=== PATIENT | female | born 1945 | race Caucasian/White ===

== ENCOUNTER 2019-11-13 09:55 | Outpatient (REF) | payer MEDICARE, SELFPAY ==
[2019-11-13 11:08] LABS: MANUAL DIFF FLAG NO
[2019-11-13 11:11] LABS: Basophils Absolute Auto 0.1 X10*3/uL (0.0-0.2); Basophils Percent Auto 0.6 % (0-2); Eosinophils Absolute Auto 0.2 X10*3/uL (0.0-0.4); Eosinophils Percent Auto 1.8 % (0-4); Hemoglobin 12.9 g/dl (12.0-16.0); Imm Gran Pct Auto 1.2 % (0.0-0.4); Lymphocytes Absolute Auto 2.1 X10*3/uL (1.2-4.9); Lymphocytes Percent Auto 24.3 % (20-40); Mean Corpuscular HGB Conc 32.3 g/dl (31.0-35.0); Mean Corpuscular Hemoglobin 30.7 pg (27.0-33.0); Mean Corpuscular Volume 95.2 fL (80-98); Mean Platelet Volume 11.1 fL (9.4-12.3); Monocytes Absolute Auto 0.6 X10*3/uL (0.1-1.2); Monocytes Percent Auto 7.1 % (2-11); Neutrophils Absolute Auto 5.5 X10*3/uL (2.0-8.3); Platelet Count 187 X10*3/uL (160-400); Red Cell Distribution Width 13.5 % (11.0-16.0); White Blood Count 8.5 X10*3/uL (4.8-10.8)
[2019-11-13 11:43] LABS: Alanine Aminotransferase 33 U/L (0-31); Albumin Level 3.5 g/dL (3.5-5.0); Alkaline Phosphatase 70 U/L (39-117); Anion Gap 12 (12-20); Aspartate Amino Transferase 37 U/L (5-31); Bilirubin Total 0.5 mg/dL (0.0-1.0); Blood Urea Nitrogen 15 mg/dL (9-16); Calcium 8.4 mg/dL (8.4-10.2); Carbon Dioxide 26 mmol/L (22-29); Chloride 105 mmol/L (96-108); Cholesterol 171 mg/dL; Estimated Glomerular Filt Rate 52; Glucose Fasting 168 mg/dL (60-99); HDL Cholesterol 42 mg/dL; LDL Cholesterol Calculated 107 mg/dl; Potassium 3.9 mmol/l (3.3-5.1); Sodium 139 mmol/L (135-145); Total Protein 6.8 g/dL (6.5-8.0); Triglycerides 113 mg/dL
[2019-11-13 11:55] LABS: Estimated Average Glucose 148 mg/dL; Hemoglobin A1c % 6.8 %
[2019-11-13 12:08] LABS: Vitamin D 25-OH Total 38.2 ng/mL (>30)
== END 2019-11-13 09:56 | disposition home or self-care (01) ==
LOC: HO.HMGCLDS 09:55
PROVIDERS: PCP Internal Medicine; Visit Provider Internal Medicine
DX: E11.9 Type 2 diabetes mellitus without complications (principal); I10 Essential (primary) hypertension; E03.9 Hypothyroidism, unspecified; E66.01 Morbid (severe) obesity due to excess calories; L30.9 Dermatitis, unspecified
CPT/HCPCS: 36415; 80053; 80061; 82306; 83036; 84443; 85025

== ENCOUNTER 2020-08-28 10:09 | Outpatient (REF) | payer MEDICARE, SELFPAY | END 2020-08-28 10:10 | disposition home or self-care (01) | LOC: HO.LNP 10:09 | PROVIDERS: PCP Internal Medicine | DX: N39.0 Urinary tract infection, site not specified (principal); N28.89 Other specified disorders of kidney and ureter | CPT/HCPCS: 87086; 87088; 87186; 99212 ==

== ENCOUNTER 2020-09-03 13:43 | Outpatient (REF) | payer MEDICARE, SELFPAY ==
--- NOTE | ~2020-09-03 | US_ITS ---
EXAMINATION: US RETROPERITONEAL LIMITED (RENAL ONLY) CLINICAL INFORMATION: Calculus of kidney. COMPARISON: Ultrasound renals 10/25/2019 and 10/16/2018. TECHNIQUE: Real-time imaging of the kidneys. FINDINGS: RIGHT KIDNEY: 12.6 x 4.4 x 5.2 cm (SAG x AP x TRV). The kidney is normal in size, contour, and echogenicity. Renal cortical thickness is normal. No renal hydronephrosis. There is an anechoic cyst in the upper pole measuring 2.2 x 1.7 x 2.2 cm. There are echogenic stones. A staghorn-appearing calculus lower pole measuring 2.4 x 1.0 x 1.9 cm, upper pole echogenic stone measuring 0.8 x 0.4 x 0.8 cm and a midpole echogenic stone measuring 1.2 x 0.6 x 1.1 cm. There is no caliectasis or hydronephrosis seen. LEFT KIDNEY: 12.2 x 5.3 x 5.6 cm (SAG x AP x TRV). The kidney is normal in size, contour, and echogenicity. Renal cortical thickness is normal. No renal hydronephrosis. There is anechoic cyst in the midpole measuring 1.3 x 1.1 x 1.1 cm and an echogenic stone in lower pole measuring 0.9 x 0.4 x 0.8 cm. US/US renal BI IMPRESSION: There are bilateral anechoic renal cysts. There are bilateral nonobstructive echogenic renal calculi. No hydronephrosis seen.
== END 2020-09-03 13:44 | disposition home or self-care (01) ==
LOC: HO.HMGCX 13:43
PROVIDERS: PCP Internal Medicine
DX: N20.0 Calculus of kidney (principal)
CPT/HCPCS: 76775

== ENCOUNTER → 2020-10-20 13:04 | Outpatient (BNVA) | payer MEDICARE, SELFPAY | PROVIDERS: PCP Internal Medicine | CPT/HCPCS: Q3014 ==

== ENCOUNTER 2020-10-21 14:21 | Outpatient (REF) | payer MEDICARE, SELFPAY | END 2020-10-21 14:22 | disposition home or self-care (01) | LOC: HO.HMGCLDS 14:21 | PROVIDERS: PCP Internal Medicine | DX: N39.0 Urinary tract infection, site not specified (principal) | CPT/HCPCS: 87086; 87088; 87186 ==

== ENCOUNTER 2020-11-26 10:43 | Outpatient (REF) | payer MEDICARE, SELFPAY ==
[2020-11-26 13:48] LABS: MANUAL DIFF FLAG NO
[2020-11-26 13:51] LABS: Appearance Urine CLOUDY; Color Urine YELLOW; Glucose Urine UA NEG (NEG); Leukocyte Esterase Urine 3+ (NEG); Nitrite Urine NEG (NEG); Specific Gravity - Urine 1.015 (1.005-1.025); UACC Culture Trigger YES; Urine Blood 2+ (NEG); Urine Ketones NEG (NEG); Urine Protein 1+ MG/DL (NEG-TRACE)
[2020-11-26 13:57] LABS: Basophils Percent Auto 0.5 % (0-2); Eosinophils Absolute Auto 0.2 X10*3/uL (0.0-0.4); Eosinophils Percent Auto 1.9 % (0-4); Hematocrit 40.7 % (37-47); Hemoglobin 13.2 g/dl (12.0-16.0); Imm Gran Abs Auto 0.08 X10*3/uL (0.00-0.03); Lymphocytes Absolute Auto 2.1 X10*3/uL (1.2-4.9); Lymphocytes Percent Auto 27.1 % (20-40); Mean Corpuscular HGB Conc 32.4 g/dl (31.0-35.0); Mean Corpuscular Hemoglobin 30.2 pg (27.0-33.0); Mean Corpuscular Volume 93.1 fL (80-98); Monocytes Absolute Auto 0.6 X10*3/uL (0.1-1.2); Monocytes Percent Auto 7.8 % (2-11); Neutrophils Absolute Auto 4.8 X10*3/uL (2.0-8.3); Neutrophils Percent Auto 61.7 % (45-73); Platelet Count 190 X10*3/uL (160-400); Red Blood Count 4.37 X10*6/uL (4.20-5.50); Red Cell Distribution Width 13.3 % (11.0-16.0); White Blood Count 7.7 X10*3/uL (4.8-10.8)
[2020-11-26 14:03] LABS: Squamous Epithelial Cell Urine 1+ /LPF; UACC CULT YES; WBC Urine TNTC /HPF (0-4)
[2020-11-26 14:04] LABS: Renal Epithelial Cells Urine 1+ /LPF
[2020-11-26 14:22] LABS: Estimated Average Glucose 246 mg/dL; Hemoglobin A1c % 10.2 %
[2020-11-26 14:25] LABS: Alanine Aminotransferase 31 U/L (0-31); Albumin Level 3.5 g/dL (3.5-5.0); Alkaline Phosphatase 81 U/L (39-117); Anion Gap 15 (12-20); Aspartate Amino Transferase 39 U/L (5-31); Bilirubin Total 0.6 mg/dL (0.0-1.0); Blood Urea Nitrogen 13 mg/dL (9-16); Calcium 8.5 mg/dL (8.4-10.2); Carbon Dioxide 26 mmol/L (22-29); Chloride 101 mmol/L (96-108); Cholesterol 171 mg/dL; Estimated Glomerular Filt Rate 53; Glucose Fasting 231 mg/dL (60-99); HDL Cholesterol 42 mg/dL; LDL Cholesterol Calculated 104 mg/dl; Potassium 3.8 mmol/L (3.3-5.1); Sodium 138 mmol/L (135-145); Triglycerides 128 mg/dL
[2020-11-26 14:27] LABS: Creatinine Urine 135.03 mg/dL; Microalbum/Creatinine Ratio Ur 115.5 ug/mg cr
[2020-11-26 14:47] LABS: Thyroid Stimulating Hormone 4.37 uIU/mL (0.32-4.0); Vitamin D 25-OH Total 53.4 ng/mL (>30)
== END 2020-11-26 10:44 | disposition home or self-care (01) ==
LOC: HO.HMGCLDS 10:43
PROVIDERS: PCP Internal Medicine; Visit Provider Internal Medicine
DX: E11.9 Type 2 diabetes mellitus without complications (principal); I10 Essential (primary) hypertension; E03.9 Hypothyroidism, unspecified; E66.01 Morbid (severe) obesity due to excess calories; L30.9 Dermatitis, unspecified; N20.0 Calculus of kidney
CPT/HCPCS: 36415; 80053; 80061; 81001; 82043; 82306; 83036; 84443; 85025; 87086

== ENCOUNTER 2020-12-10 11:18 | Outpatient (REF) | payer MEDICARE, SELFPAY ==
--- NOTE | ~2020-12-10 | US_ITS ---
EXAMINATION: US RETROPERITONEAL LIMITED (RENAL ONLY) CLINICAL INFORMATION: Calculus of kidney. COMPARISON: Renal ultrasound 09/03/2020 and 10/25/2019. X-ray abdomen KUB 06/21/2018. CT abdomen and pelvis 06/05/2018. TECHNIQUE: Real-time imaging of the kidneys. FINDINGS: RIGHT KIDNEY: 12.2 x 4.4 x 5.0 cm (SAG x AP x TRV). The kidney is normal in size, contour, and echogenicity. Renal cortical echogenicity is normal. There may be renal cortical thinning. There are multiple right renal stones. Largest stone measures 2.2 x 1.1 x 2.8 cm and 1.7 x 0.6 x 1.7 cm in the lower pole. There is a 2.5 x 2.2 x 2 cm cyst in the upper pole. No renal mass or hydronephrosis. LEFT KIDNEY: 12.0 x 5.7 x 4.6 cm (SAG x AP x TRV). The kidney is normal in size, contour, and echogenicity. Renal cortical thickness and echogenicity is normal. There are 3 stones in the lower pole, largest measuring 1.2 x 0.6 x 1 cm. No renal mass or hydronephrosis. ADDITIONAL FINDINGS: There is a gallstone in the gallbladder. US/US renal BI IMPRESSION: Limited exam due to body habitus. Bilateral renal stones, right greater than left. Small right renal cyst.
== END 2020-12-10 11:19 | disposition home or self-care (01) ==
LOC: HO.HMGCX 11:18
PROVIDERS: PCP Internal Medicine; Visit Provider Urology
DX: N20.0 Calculus of kidney (principal)
CPT/HCPCS: 76775

== ENCOUNTER → 2021-01-19 12:58 | Outpatient (BNVA) | payer MEDICARE, SELFPAY | PROVIDERS: PCP Internal Medicine | DX: N20.0 Calculus of kidney (principal) | CPT/HCPCS: Q3014 ==

== ENCOUNTER 2021-02-16 10:41 | Outpatient (REF) | payer MEDICARE, SELFPAY ==
--- NOTE | ~2021-02-16 | CT_ITS ---
EXAMINATION: CT ABDOMEN AND PELVIS WITHOUT CONTRAST CLINICAL INFORMATION: Calculus of kidney. COMPARISON: CT abdomen and pelvis without contrast 06/05/2018. Ultrasound kidneys 08/26/2020 TECHNIQUE: Multidetector volumetric imaging was performed from the superior aspect of the liver through the pubic symphysis. Sagittal and coronal reformatted images were obtained on the technologist's workstation. This CT examination was performed using dose optimization techniques as appropriate, variously including the following: *Automated exposure control *Adjustment of mA and/or kV according to patient size (this includes techniques or standardized protocols for targeted exams where dose is matched to indication/reason for exam; i.e. extremities or head) *Use of iterative reconstruction technique DLP: 718 mGy-cm FINDINGS: LUNG BASES: The visualized lung bases are unremarkable. LIVER, GALLBLADDER, AND BILIARY TREE: There is slightly lobulated liver contour with normal size and density. No focal lesion or intrahepatic ductal dilatation seen. There are multiple radiopaque gallstones without wall thickening. The largest gallstone measures 2 cm. PANCREAS: Unremarkable. SPLEEN: Unremarkable. ADRENAL GLANDS: Unremarkable. KIDNEYS AND URETERS: The kidneys are normal in size, shape, and attenuation. There is a staghorn calculi right kidney without caliectasis or hydronephrosis. There is an exophytic upper pole right renal cyst measuring 2 cm. There are punctate radiopaque calculi measuring 2 mm in the upper and 4 mm calculi in the lower pole left kidney without caliectasis or hydronephrosis. BLADDER: Unremarkable. GASTROINTESTINAL TRACT: There is scattered sigmoid diverticulosis with mural thickening and mild pericolic fat stranding likely early changes of diverticulitis. Rest the colon and small bowel loops are normal. Appendix is normal. No free air or free fluid seen. ABDOMINAL WALL: There is a small umbilical hernia containing intraperitoneal fat. The neck is 2.2 cm wide. LYMPH NODES: Normal. VASCULAR: Unremarkable. PELVIC VISCERA: Unremarkable. OSSEOUS STRUCTURES: No free air or free fluid seen. Incidental finding of L2 hemangioma is noted. There are degenerative disc changes with vacuum disc phenomena L5-S1, L3-L4, L2-L1, L1-L2 disc levels. There is moderate ventral bridging osteophytes lower dorsal and upper lumbar spine. CT/CT abdomen pelvis wo con IMPRESSION: 1. Cholelithiasis without wall thickening. 2. Bilateral nephrolithiasis with a staghorn calculi right kidney. No caliectasis or hydronephrosis. There are at least 2 cysts in the upper pole right kidney. 3. Sigmoid diverticulosis with mild mural thickening and mild fat stranding likely early diverticulitis. There is no obstruction, free air or collection. 4. Small umbilical hernia containing fat.
== END 2021-02-16 10:42 | disposition home or self-care (01) ==
LOC: HO.CT 10:41
PROVIDERS: PCP Internal Medicine; Visit Provider Urology
DX: N20.0 Calculus of kidney (principal)
CPT/HCPCS: 74176

== ENCOUNTER 2021-03-09 10:20 | Outpatient (REF) | payer MEDICARE, SELFPAY ==
[2021-03-09 11:55] LABS: Estimated Average Glucose 148 mg/dL; Hemoglobin A1c % 6.8 %
[2021-03-09 12:16] LABS: Alanine Aminotransferase 38 U/L (0-31); Albumin Level 3.2 g/dL (3.5-5.0); Alkaline Phosphatase 61 U/L (39-117); Anion Gap 11 (12-20); Aspartate Amino Transferase 52 U/L (5-31); Bilirubin Total 0.6 mg/dL (0.0-1.0); Blood Urea Nitrogen 12 mg/dL (9-16); Calcium 8.8 mg/dL (8.4-10.2); Carbon Dioxide 32 mmol/L (22-29); Chloride 103 mmol/L (96-108); Cholesterol 177 mg/dL; Estimated Glomerular Filt Rate 56; Glucose Fasting 177 mg/dL (60-99); HDL Cholesterol 39 mg/dL; LDL Cholesterol Calculated 109 mg/dl; Potassium 3.5 mmol/L (3.3-5.1); Sodium 142 mmol/L (135-145); Total Protein 6.8 g/dL (6.5-8.0); Triglycerides 145 mg/dL
[2021-03-09 12:23] LABS: Creatinine Urine 90.44 mg/dL; Microalbum/Creatinine Ratio Ur 143.7 ug/mg cr
[2021-03-09 12:37] LABS: Thyroid Stimulating Hormone 2.14 uIU/mL (0.32-4.0)
== END 2021-03-09 10:21 | disposition home or self-care (01) ==
LOC: HO.HMGCLDS 10:20
PROVIDERS: Visit Provider Internal Medicine
DX: E11.9 Type 2 diabetes mellitus without complications (principal); E03.9 Hypothyroidism, unspecified
CPT/HCPCS: 36415; 80053; 80061; 82043; 83036; 84443

== ENCOUNTER 2021-04-01 10:55 | Outpatient (REF) | payer MEDICARE, SELFPAY ==
[2021-04-01 14:21] LABS: Appearance Urine CLOUDY; Color Urine YELLOW; Glucose Urine UA NEG (NEG); Leukocyte Esterase Urine 3+ (NEG); Nitrite Urine NEG (NEG); UACC Culture Trigger YES; Urine Blood 3+ (NEG); Urine Ketones NEG (NEG); Urine Protein 1+ MG/DL (NEG-TRACE)
[2021-04-01 14:41] LABS: Bacteria Urine 1+ /LPF; RBC Urine TNTC /HPF (0); Squamous Epithelial Cell Urine TRACE /LPF; UACC CULT YES; WBC Urine TNTC /HPF (0-4)
== END 2021-04-01 10:56 | disposition home or self-care (01) ==
LOC: HO.HMGCLDS 10:55
PROVIDERS: Visit Provider Internal Medicine
DX: N20.0 Calculus of kidney (principal)
CPT/HCPCS: 81001; 87086

== ENCOUNTER 2021-04-05 17:31 | Inpatient (IN) | payer MEDICARE, SELFPAY ==
--- NOTE | ~2021-04-05 | CT_ITS ---
EXAMINATION: CT ABDOMEN AND PELVIS WITHOUT CONTRAST CLINICAL INFORMATION: Epigastric abdominal pain with history of right renal calculus COMPARISON: CT abdomen pelvis 02/16/2021 TECHNIQUE: Multidetector volumetric imaging was performed from the superior aspect of the liver through the pubic symphysis. Sagittal and coronal reformatted images were obtained on the technologist's workstation. This CT examination was performed using dose optimization techniques as appropriate, variously including the following: *Automated exposure control *Adjustment of mA and/or kV according to patient size (this includes techniques or standardized protocols for targeted exams where dose is matched to indication/reason for exam; i.e. extremities or head) *Use of iterative reconstruction technique DLP: 884 mGy-cm FINDINGS: LUNG BASES: The visualized lung bases are unremarkable. There is a 1.3 x 0.8 cm right paracardiac lymph node present, unchanged. LIVER, GALLBLADDER, AND BILIARY TREE: The liver appears mildly enlarged with a nodular border and a hypertrophied enlarged left lobe suggesting cirrhotic disease. No focal hepatic lesion or biliary ductal dilatation is present. The gallbladder contains large calcified gallstones the largest measuring 2.5 cm but is otherwise unremarkable with no evidence of gallbladder wall thickening or pericholecystic inflammatory change. PANCREAS: Unremarkable. SPLEEN: There is mild splenomegaly with the spleen measuring 13 cm in greatest length ADRENAL GLANDS: Unremarkable. KIDNEYS AND URETERS: The right kidney demonstrates some cortical thinning compared to the left. Extensive calculi are present in the right kidney with staghorn type calculi filling the lower pole collecting system measuring about 4 cm in length. The stone measures about thousand Hounsfield units and is about 15 cm from the posterior axillary line.. No hydronephrosis is seen no ureteral calculi noted. Poorly characterized water density right renal cysts are present the largest measuring 2 cm arising from the upper pole.. No solid renal masses. On the left, only a few calculi are seen the largest measuring 6 mm in size. No hydronephrosis or masses are seen BLADDER: Unremarkable. GASTROINTESTINAL TRACT: Continued abnormality in the sigmoid with marked thickening and some pericolonic inflammatory change. Findings appear quite similar to those noted previously. Differential diagnosis would include diverticulitis as well as sigmoid carcinoma. Given the lack of change in appearance, sigmoidoscopy would be useful for further evaluation. ABDOMINAL WALL: No significant hernia is appreciated. There is a small periumbilical hernia seen containing only fat. LYMPH NODES: Normal. VASCULAR: Calcific atherosclerotic changes seen without aneurysm. PELVIC VISCERA: Status post hysterectomy. OSSEOUS STRUCTURES: Extensive degenerative changes present throughout the spine. Lytic lesion in L2 most likely a hemangioma. CT/CT abdomen pelvis wo con IMPRESSION: Abnormal sigmoid colon. Given the lack of change since 02/16/2021, carcinoma must be a consideration and therefore sigmoidoscopy, if this has not already been performed, is recommended. Abnormal liver with nodular border and hypertrophied left lobe suggesting cirrhosis with associated mild splenomegaly. Cholelithiasis without cholecystitis Extensive right renal calculi with some calculus disease on the left. Fleischner guidelines were followed.
--- NOTE | ~2021-04-05 | US_ITS ---
EXAMINATION: US ABDOMEN LIMITED CLINICAL INFORMATION: Right upper quadrant pain. COMPARISON: None TECHNIQUE: Real-time imaging of the right upper quadrant abdominal viscera. FINDINGS: Limited examination due to patient body habitus. PANCREAS: The visualized head and body of the pancreas appears unremarkable. Remainder of the pancreas is obscured by bowel gas. LIVER: Liver is enlarged. There is nodular contour. Diffuse increased echogenicity. No focal lesions are demonstrated in this limited examination. There is no intrahepatic biliary duct dilatation seen. GALLBLADDER: Shadowing gallstones present. Gallbladder wall measures 2 mm. No pericholecystic fluid. Technologist reports tenderness in the area of the gallbladder. COMMON BILE DUCT: Normal in caliber measuring 0.4 cm in diameter. RIGHT KIDNEY: Multiple shadowing calculi seen. The larger calculi are as follows. Calculus in the mid/lower pole measuring 3 x 0.5 x 1.2 cm; 1.2 cm calculus in the interpolar region. 1.5 cm anechoic avascular cyst. No hydronephrosis. The kidney measures 15.2 cm in maximum dimension. FREE FLUID: None. US/US abdomen limited IMPRESSION: 1. Gallstones present. No gallbladder wall thickening. Technologist reports tenderness in the area of the gallbladder. Sonographic features are nonspecific. Early/evolving acute cholecystitis cannot be excluded. Recommend close clinical correlation. Short-term follow-up ultrasound for reassessment as clinically warranted. 2. Cirrhotic liver, with nodular contour, increase echogenicity. No focal lesions demonstrated. 3. Right renal calculi, largest calculus having a staghorn appearance measuring 3 cm in maximum dimension. No hydronephrosis. 4. Partially visualized pancreas. 5. Limited examination due to patient body habitus.
--- NOTE | ~2021-04-05 | FL_ITS ---
EXAMINATION: XR FLUOROSCOPY WITH IMAGES CLINICAL INFORMATION: Right ureteral stone. Placement of double-J stent in right collecting system. COMPARISON: Ultrasound of abdomen 04/06/2021. CT scan abdomen pelvis 04/05/2021 TECHNIQUE: Fluoroscopy performed by Dr. Reis. Fluoroscopy time: 159.6 seconds DAP; 90.96 mGy Images: 2 FINDINGS: Spot views over the pelvis and right kidney. The spot view over the right kidney shows a guidewire looped over the collecting system with radiopaque stone in the renal pelvis. The spot view over the pelvis shows the double J stent in the right ureter extending into the bladder. FL/FL guidance in OR IMPRESSION: Status post placement of internal right ureteral stent. See intraoperative report for further detail.
[2021-04-05 17:57] VITALS: BP 179/62; PULSE 98; RESP 18; TEMP 37.5; O2SAT 95; BMI 43.4
[2021-04-05 18:23] LABS: Appearance Urine CLOUDY; Color Urine YELLOW; Glucose Urine UA NEG (NEG); Leukocyte Esterase Urine 3+ (NEG); Nitrite Urine NEG (NEG); UACC Culture Trigger YES; Urine Blood 2+ (NEG); Urine Ketones NEG (NEG); Urine Protein 1+ MG/DL (NEG-TRACE)
[2021-04-05 18:29] LABS: Squamous Epithelial Cell Urine 1+ /LPF; WBC Urine TNTC /HPF (0-4)
[2021-04-05 18:31] LABS: Amorphous Sediment Urine TRACE /LPF
--- NOTE | 2021-04-05 20:01 | ED_ITS ---
HPI - Abdominal Pain General Chief Complaint: Abdominal Pain Stated Complaint: abd pain/fever/nausea Source: patient Mode of arrival: ambulatory Limitations: no limitations History of Present Illness HPI narrative: 76-year-old female presents with epigastric and abdominal pain accompanied with fevers, chills, nausea, anorexia, dysuria, urinary frequency and fatigue. MD elicited complaint: abdominal pain Pertinent past history: past UTI Pain Consistency: constant Location: diffuse Severity: moderate Pain scale (0-10): 6 Quality: aching Radiation: none Exacerbating factors: movement Relieving factors: nothing Associated symptoms: nausea, fever, chills, dysuria and anorexia Related Data Home Medications Medication Instructions Recorded Confirmed furosemide 40 mg tablet 40 mg PO BID 08/28/20 04/05/21 levothyroxine 112 mcg tablet 112 mcg PO DAILY 08/28/20 04/05/21 lisinopril 10 mg tablet 10 mg PO DAILY 08/28/20 04/05/21 atorvastatin 10 mg tablet 1 tab PO DAILY 04/05/21 04/05/21 metformin 500 mg tablet 2 tab PO BID 04/05/21 04/05/21 Allergies Allergy/AdvReac Type Severity Reaction Status Date / Time chlorpheniramine Allergy Severe HALLUCINATI Verified 04/05/21 17:57 [From TUSSIONEX] ONS escitalopram [ESCITALOPRAM] Allergy Severe DISSOCIATIVE Verified 04/05/21 17:57 REACTION fluoxetine [FLUOXETINE] Allergy Severe DISSOCIATIVE Verified 04/05/21 17:57 REACTION hydrocodone [From TUSSIONEX] Allergy Severe HALLUCINATI Verified 04/05/21 17:57 ONS ibuprofen [IBUPROFEN] Allergy Severe THROAT Verified 04/05/21 17:57 SWELLING Sulfa (Sulfonamide Allergy Severe DYSPNEA Verified 04/05/21 17:57 Antibiotics) [SULFA (SULFONAMIDE ANTIBIOTICS)] clarithromycin [From BIAXIN] Allergy Intermediate ABD.PAIN Verified 04/05/21 17:57 erythromycin base Allergy Intermediate RASH Verified 04/05/21 17:57 [ERYTHROMYCIN BASE] Penicillins [PENICILLINS] Allergy Intermediate RASH Verified 04/05/21 17:57 tetracycline [TETRACYCLINE] Allergy Intermediate DIARRHEA Verified 04/05/21 17:57 ciprofloxacin [From CIPRO] Allergy Unknown ANAPHYLAXIS Verified 04/05/21 17:57 codeine [CODEINE] Allergy Unknown TINNITIS Verified 04/05/21 17:57 duloxetine [DULOXETINE] Allergy Unknown FACIAL Verified 04/05/21 17:57 NUMBNESS guaifenesin Allergy Unknown Unknown Verified 04/05/21 17:57 penicillin V Allergy Unknown Unknown Verified 04/05/21 17:57 pregabalin Allergy Unknown Unknown Verified 04/05/21 17:57 biaxin Allergy Unknown abdominal Uncoded 01/19/21 12:59 pain cipro Allergy Unknown angioedema Uncoded 01/19/21 12:59 Erythromycin Allergy Unknown Unknown Uncoded 01/19/21 12:59 erythromycin Allergy Unknown rash Uncoded 01/19/21 12:59 fluoxetine Allergy Unknown hallucinations, Uncoded 01/19/21 12:59 fogginess , throat tightening ibuprofen Allergy Unknown throat Uncoded 01/19/21 12:59 swelling PCN Allergy Unknown rash Uncoded 01/19/21 12:59 sulfa Allergy Unknown dyspnea Uncoded 01/19/21 12:59 tetracycline Allergy Unknown diarrhea Uncoded 01/19/21 12:59 tussionex Allergy Unknown hallucinati Uncoded 01/19/21 12:59 ons Review of Systems Review of Systems Constitutional: No Fever, No Chills ENT/Mouth: No sore throat Eyes: No Eye Pain, No Swelling, No Redness Cardiovascular: No Chest Pain, No SOB Respiratory: No Cough, No Sputum, No Wheezing Gastrointestinal: positive Nausea, no Vomiting, No Diarrhea, positive abdominal pain Genitourinary: positive Dysuria, positive urinary frequency, no Hematuria, positive Flank Pain, positive hesitancy Musculoskeletal: No joint pain, No Myalgias Skin: No Skin Lesions, No rash Neuro: No Weakness, No Numbness, No Headache Psych: No Anxiety/Panic, No Depression Heme/Lymph: No Bruising, No Lymphadenopathy Endocrine: No Polyuria, No Polydipsia PMFSH Past Medical History Attestation statement: The following information was validated with the patient. Source: old records reviewed Medical History Anxiety Diabetes mellitus, type II Ganglion cyst HTN (hypertension) Hypercholesterolemia Hypothyroidism Low back pain OA (osteoarthritis) Obstructive airway disease Perirectal abscess Plantar fasciitis Primary osteoarthritis of right knee Renal calculus, bilateral Renal calyceal dilation determined by ultrasound Renal stones Retained ureteral stent Sciatica Staghorn calculus UTI (urinary tract infection) Surgical History History of surgery Social History Social History Alcohol intake: never Patient Tobacco Use Status: Former Tobacco user Use of substances other than those prescribed or required for medical reasons: No Advance Directives: No Advance Directives Information Provided: No Physical Exam ED Vital Signs: Vital Signs - 24 hr 04/05/21 17:57 04/05/21 20:03 04/05/21 22:02 Temperature 99.5 F 99.5 F 99.5 F Pulse Rate 98 94 82 Respiratory Rate 18 18 16 Blood Pressure 179/62 H 158/69 H 150/63 H Pulse Oximetry 95 97 97 BMI result Body Mass Index 43.4 Appearance: Alert. Oriented X3. Mild distress. Eyes: Pupils equal, round and reactive to light. Sclera nonicteric. ENT: Pharynx normal. Moist mucous membranes. Neck: Normal inspection. Neck supple. CVS: Normal heart rate and rhythm. Pulses normal. Respiratory: No respiratory distress. Breath sounds normal. Abdomen: Soft and diffusely tender with increased pain to the epigastric and right upper quadrant. Skin: Skin warm and dry. Normal skin color. Normal skin turgor. Extremities: No lower extremity edema. Gait well-balanced well coordinated. Neuro: No motor deficit. No sensory deficit. Cranial nerves 2-12 intact. Course Course Course Narrative: 76-year-old female presents with a week of urinary symptoms, and 2 days abdominal pain headache chills and nausea. Has had poor p.o. intake over the past 24 hours. Was evaluated at [facility] however did not receive her results from her urinalysis. Initial triage vital signs indicates a heart rate of 98, temperature of 99.5 degrees oral, otherwise patient appears nontoxic. Will treat with ceftriaxone, and fluids. Urinalysis indicates positive for UTI, based on patient's physical exam with positive right upper quadrant and epigastric tenderness and bilateral CVA tenderness will order CT scan of abdomen and pelvis to rule out acute abdomen, pyelo, obstruction. Lactic acid is 2.1, I do not feel that this patient is septic at this time. White count is 17. CT scan of abdomen pelvis indicates bilateral renal stones, staghorn to the right without obstruction, multiple smaller stones in the left without obstruction, and a question of diverticulitis versus colon mass in the sigmoid colon. Order for Flagyl at this time to cover for diverticulitis. 2230 discussion with hospitalist, plan of care is to admit for pyelo, UTI with GI consult for suspicion of sigmoid mass versus diverticulitis. Consultations Consultation #1: michele Time: 22:00 Consultation #2: Jack Time: 22:30 MDM - Abdominal Pain Differential Diagnosis Differential diagnosis: Likely abdominal pain, acute appendicitis, calculus of kidney, diverticulitis, pancreatitis and small bowel obstruction Medical Records Attestation: I reviewed the patient's medical records. Lab Data Attestation: I reviewed the patient's lab results. Result diagrams: 04/05/21 21:15 04/05/21 21:15 Labs: Lab Results 04/05/21 04/05/21 04/05/21 Range/Units 18:16 20:23 20:23 WBC (4.8-10.8) X10*3/uL RBC (4.20-5.50) X10*6/uL Hgb (12.0-16.0) g/dl Hct (37.0-47.0) % MCV (80.0-98.0) fL MCH (27.0-33.0) pg MCHC (31.0-35.0) g/dl RDW (11.0-16.0) % Plt Count (160-400) X10*3/uL MPV (9.4-12.3) fL Immature Gran % (Auto) (0.0-0.4) % Neut % (Auto) (45-73) % Lymph % (Auto) (20-40) % Coles % (Auto) (2-11) % Eos % (Auto) (0-4) % Baso % (Auto) (0-2) % Lymph # (Auto) (1.2-4.9) X10*3/uL Coles # (Auto) (0.1-1.2) X10*3/uL Eos # (Auto) (0.0-0.4) X10*3/uL Baso # (Auto) (0.0-0.2) X10*3/uL Abs Immat Gran (auto) (0.00-0.03) X10*3/uL Absolute Neuts (auto) (2.0-8.3) x10*3/uL Absolute Nucleated RBC (0.0-0.012) X10*3/uL Nucleated RBC % (auto) (0.0-0.2) /100WBC Sodium (135-145) mmol/L Potassium (3.3-5.1) mmol/L Chloride (96-108) mmol/L Carbon Dioxide (22-29) mmol/L Anion Gap (12-20) BUN (9-16) mg/dL Creatinine (0.5-1.4) mg/dL Estim Creat Clear Calc Estimated GFR Random Glucose (60-115) mg/dL Lactic Acid 2.1 H* (0.5-2.0) mmol/L Lactic Acid F/U @ 2Hr (0.5-2.0) mmol/L Calcium (8.4-10.2) mg/dL Total Bilirubin (0.0-1.0) mg/dL Direct Bilirubin (0.0-0.5) mg/dL AST (5-31) U/L ALT (0-31) U/L Alkaline Phosphatase (39-117) U/L Troponin I High Sens 5.9 (<3.5-17.0) ng/L Total Protein (6.5-8.0) g/dL Albumin (3.5-5.0) g/dL Lipase (8-78) U/L Urine Color YELLOW Urine Appearance CLOUDY Urine pH 6.0 (5.0-8.0) Ur Specific Randle 1.010 (1.005-1.025) Urine Protein 1+ H (NEG-TRACE) MG/DL Urine Glucose (UA) NEG (NEG) MG/DL Urine Ketones NEG (NEG) MG/DL Urine Blood 2+ H (NEG) Urine Nitrite NEG (NEG) Ur Leukocyte Esterase 3+ H (NEG) Urine RBC 10-14 H (0) /HPF Urine WBC TNTC H (0-4) /HPF Ur Squamous Epith Cells 1+ /LPF Amorphous Sediment TRACE /LPF Urine Bacteria NONE /LPF COVID-19 (JOSE MARIA) (Negative) COVID-19 Clin Com 04/05/21 04/05/21 04/05/21 Range/Units 21:15 21:15 22:48 WBC 17.2 H (4.8-10.8) X10*3/uL RBC 4.25 (4.20-5.50) X10*6/uL Hgb 12.7 (12.0-16.0) g/dl Hct 39.4 (37.0-47.0) % MCV 92.7 (80.0-98.0) fL MCH 29.9 (27.0-33.0) pg MCHC 32.2 (31.0-35.0) g/dl RDW 14.2 (11.0-16.0) % Plt Count 215 (160-400) X10*3/uL MPV 10.3 (9.4-12.3) fL Immature Gran % (Auto) 0.7 H (0.0-0.4) % Neut % (Auto) 79.1 H (45-73) % Lymph % (Auto) 14.7 L (20-40) % Coles % (Auto) 5.0 (2-11) % Eos % (Auto) 0.3 (0-4) % Baso % (Auto) 0.2 (0-2) % Lymph # (Auto) 2.5 (1.2-4.9) X10*3/uL Coles # (Auto) 0.9 (0.1-1.2) X10*3/uL Eos # (Auto) 0.1 (0.0-0.4) X10*3/uL Baso # (Auto) 0.0 (0.0-0.2) X10*3/uL Abs Immat Gran (auto) 0.12 H (0.00-0.03) X10*3/uL Absolute Neuts (auto) 13.6 H (2.0-8.3) x10*3/uL Absolute Nucleated RBC 0.000 (0.0-0.012) X10*3/uL Nucleated RBC % (auto) 0.0 (0.0-0.2) /100WBC Sodium 138 (135-145) mmol/L Potassium 4.0 (3.3-5.1) mmol/L Chloride 100 (96-108) mmol/L Carbon Dioxide 26 (22-29) mmol/L Anion Gap 16 (12-20) BUN 14 (9-16) mg/dL Creatinine 1.01 (0.5-1.4) mg/dL Estim Creat Clear Calc 55.2 Estimated GFR 54 Random Glucose 154 H (60-115) mg/dL Lactic Acid (0.5-2.0) mmol/L Lactic Acid F/U @ 2Hr 1.9 (0.5-2.0) mmol/L Calcium 9.0 (8.4-10.2) mg/dL Total Bilirubin 0.7 (0.0-1.0) mg/dL Direct Bilirubin 0.2 (0.0-0.5) mg/dL AST 71 H (5-31) U/L ALT 41 H (0-31) U/L Alkaline Phosphatase 53 (39-117) U/L Troponin I High Sens (<3.5-17.0) ng/L Total Protein 7.5 (6.5-8.0) g/dL Albumin 3.5 (3.5-5.0) g/dL Lipase 10 (8-78) U/L Urine Color Urine Appearance Urine pH (5.0-8.0) Ur Specific Randle (1.005-1.025) Urine Protein (NEG-TRACE) MG/DL Urine Glucose (UA) (NEG) MG/DL Urine Ketones (NEG) MG/DL Urine Blood (NEG) Urine Nitrite (NEG) Ur Leukocyte Esterase (NEG) Urine RBC (0) /HPF Urine WBC (0-4) /HPF Ur Squamous Epith Cells /LPF Amorphous Sediment /LPF Urine Bacteria /LPF COVID-19 (JOSE MARIA) (Negative) COVID-19 Clin Com 04/05/21 Range/Units 22:51 WBC (4.8-10.8) X10*3/uL RBC (4.20-5.50) X10*6/uL Hgb (12.0-16.0) g/dl Hct (37.0-47.0) % MCV (80.0-98.0) fL MCH (27.0-33.0) pg MCHC (31.0-35.0) g/dl RDW (11.0-16.0) % Plt Count (160-400) X10*3/uL MPV (9.4-12.3) fL Immature Gran % (Auto) (0.0-0.4) % Neut % (Auto) (45-73) % Lymph % (Auto) (20-40) % Coles % (Auto) (2-11) % Eos % (Auto) (0-4) % Baso % (Auto) (0-2) % Lymph # (Auto) (1.2-4.9) X10*3/uL Coles # (Auto) (0.1-1.2) X10*3/uL Eos # (Auto) (0.0-0.4) X10*3/uL Baso # (Auto) (0.0-0.2) X10*3/uL Abs Immat Gran (auto) (0.00-0.03) X10*3/uL Absolute Neuts (auto) (2.0-8.3) x10*3/uL Absolute Nucleated RBC (0.0-0.012) X10*3/uL Nucleated RBC % (auto) (0.0-0.2) /100WBC Sodium (135-145) mmol/L Potassium (3.3-5.1) mmol/L Chloride (96-108) mmol/L Carbon Dioxide (22-29) mmol/L Anion Gap (12-20) BUN (9-16) mg/dL Creatinine (0.5-1.4) mg/dL Estim Creat Clear Calc Estimated GFR Random Glucose (60-115) mg/dL Lactic Acid (0.5-2.0) mmol/L Lactic Acid F/U @ 2Hr (0.5-2.0) mmol/L Calcium (8.4-10.2) mg/dL Total Bilirubin (0.0-1.0) mg/dL Direct Bilirubin (0.0-0.5) mg/dL AST (5-31) U/L ALT (0-31) U/L Alkaline Phosphatase (39-117) U/L Troponin I High Sens (<3.5-17.0) ng/L Total Protein (6.5-8.0) g/dL Albumin (3.5-5.0) g/dL Lipase (8-78) U/L Urine Color Urine Appearance Urine pH (5.0-8.0) Ur Specific Randle (1.005-1.025) Urine Protein (NEG-TRACE) MG/DL Urine Glucose (UA) (NEG) MG/DL Urine Ketones (NEG) MG/DL Urine Blood (NEG) Urine Nitrite (NEG) Ur Leukocyte Esterase (NEG) Urine RBC (0) /HPF Urine WBC (0-4) /HPF Ur Squamous Epith Cells /LPF Amorphous Sediment /LPF Urine Bacteria /LPF COVID-19 (JOSE MARIA) Negative (Negative) COVID-19 Clin Com See Note Imaging Data CT scan - abdomen: Attestation: I personally reviewed and interpreted this imaging study as follows: Radiologist's impression: FINDINGS: LUNG BASES: The visualized lung bases are unremarkable. There is a 1.3 x 0.8 cm right paracardiac lymph node present, unchanged. LIVER, GALLBLADDER, AND BILIARY TREE: The liver appears mildly enlarged with a nodular border and a hypertrophied enlarged left lobe suggesting cirrhotic disease.? No focal hepatic lesion or biliary ductal dilatation is present. The gallbladder contains large calcified gallstones the largest measuring 2.5 cm but is otherwise unremarkable with no evidence of ? gallbladder wall thickening or pericholecystic inflammatory change. PANCREAS: Unremarkable.? SPLEEN: There is mild splenomegaly with the spleen measuring 13 cm in greatest length? ADRENAL GLANDS: Unremarkable.? KIDNEYS AND URETERS: The right kidney demonstrates some cortical thinning compared to the left. Extensive calculi are present in the right kidney with staghorn type calculi filling the lower pole collecting system measuring about 4 cm in length. The stone measures about thousand Hounsfield units and is about 15 cm from the posterior axillary line.. No hydronephrosis is seen no ureteral calculi noted. Poorly characterized water density right renal cysts are present the largest measuring 2 cm arising from the upper pole.. No solid renal masses. On the left, only a few calculi are seen the largest measuring 6 mm in size. No hydronephrosis or masses are seen? BLADDER: Unremarkable.? GASTROINTESTINAL TRACT: Continued abnormality in the sigmoid with marked thickening and some pericolonic inflammatory change. Findings appear quite similar to those noted previously. Differential diagnosis would include diverticulitis as well as sigmoid carcinoma. Given the lack of change in appearance, sigmoidoscopy would be useful for further evaluation. ABDOMINAL WALL: No significant hernia is appreciated. There is a small periumbilical hernia seen containing only fat. LYMPH NODES: Normal. VASCULAR: Calcific atherosclerotic changes seen without aneurysm. PELVIC VISCERA: Status post hysterectomy.? OSSEOUS STRUCTURES: Extensive degenerative changes present throughout the spine. Lytic lesion in L2 most likely a hemangioma.? CT/CT abdomen pelvis wo con IMPRESSION: ? Abnormal sigmoid colon. Given the lack of change since 02/16/2021, carcinoma must be a consideration and therefore sigmoidoscopy, if this has not already been performed, is recommended. ? Abnormal liver with nodular border and hypertrophied left lobe suggesting cirrhosis with associated mild splenomegaly. ? Cholelithiasis without cholecystitis ? Extensive right renal calculi with some calculus disease on the left. ? Fleischner guidelines were followed. ECG Data Attestation: I personally reviewed and interpreted this ECG as follows: ECG interpretation date: 04/05/21 ECG interpretation time: 20:13 Prior ECG tracings: available for review Interpretation: Vent. rate 91 BPM GA interval 192 ms QRS duration 126 ms QT/QTc 414/509 ms P-R-T axes 59 62 29 Normal sinus rhythm Right bundle branch block Abnormal ECG When compared with ECG of 26-MAY-2016 18:49, No significant change was found Critical Care Time Critical Care Time Critical Care Time: Yes Total Critical Care Time: 45 Attestation: I have personally provided critical care time exclusive of time spent on separately billable procedures. Time includes review of laboratory data, radiology results, discussion with consultants, and monitoring for potential decompensation. Interventions were performed as documented. Discharge Plan Discharge Clinical Impression: UTI (urinary tract infection), Renal calculus, bilateral, Diverticulitis Patient Disposition: Admitted As Inpatient
--- NOTE | 2021-04-05 20:02 | ECG_ITS ---
Test Reason : abdominal pain Blood Pressure : / mmHG Vent. Rate : 091 BPM Atrial Rate : 091 BPM P-R Int : 192 ms QRS Dur : 126 ms QT Int : 414 ms P-R-T Axes : 059 062 029 degrees QTc Int : 509 ms Normal sinus rhythm Right bundle branch block Abnormal ECG When compared with ECG of 26-MAY-2016 18:49, No significant change was found Referred By: Stephanie Walsh Electronically Signed By:Abel Hannon
[2021-04-05 20:03] VITALS: BP 158/69; PULSE 94; RESP 18; TEMP 37.5; O2SAT 97
[2021-04-05] MEDS: cefTRIAXone sodium 1 GM in 0.9 % Sodium Chloride 50 ML IV (20:40)
[2021-04-05] MEDS: 0.9 % Sodium Chloride 1,000 ML 999 ML IVCONT ×2 (20:40→22:01)
[2021-04-05 20:53] LABS: Troponin-I High Sensitivity 5.9 ng/L (<3.5-17.0)
[2021-04-05 21:03] LABS: Lactic Acid 2.1 mmol/L (0.5-2.0)
[2021-04-05 21:23] LABS: Basophils Percent Auto 0.2 % (0-2); Eosinophils Absolute Auto 0.1 X10*3/uL (0.0-0.4); Eosinophils Percent Auto 0.3 % (0-4); Hematocrit 39.4 % (37.0-47.0); Hemoglobin 12.7 g/dl (12.0-16.0); Imm Gran Abs Auto 0.12 X10*3/uL (0.00-0.03); Imm Gran Pct Auto 0.7 % (0.0-0.4); Lymphocytes Absolute Auto 2.5 X10*3/uL (1.2-4.9); Lymphocytes Percent Auto 14.7 % (20-40); MANUAL DIFF FLAG NO; Mean Corpuscular HGB Conc 32.2 g/dl (31.0-35.0); Mean Corpuscular Hemoglobin 29.9 pg (27.0-33.0); Mean Corpuscular Volume 92.7 fL (80.0-98.0); Mean Platelet Volume 10.3 fL (9.4-12.3); Monocytes Absolute Auto 0.9 X10*3/uL (0.1-1.2); Neutrophils Absolute Auto 13.6 x10*3/uL (2.0-8.3); Neutrophils Percent Auto 79.1 % (45-73); Platelet Count 215 X10*3/uL (160-400); Red Blood Count 4.25 X10*6/uL (4.20-5.50); Red Cell Distribution Width 14.2 % (11.0-16.0); White Blood Count 17.2 X10*3/uL (4.8-10.8)
[2021-04-05 21:43] LABS: Alanine Aminotransferase 41 U/L (0-31); Albumin Level 3.5 g/dL (3.5-5.0); Alkaline Phosphatase 53 U/L (39-117); Anion Gap 16 (12-20); Aspartate Amino Transferase 71 U/L (5-31); Bilirubin Direct 0.2 mg/dL (0.0-0.5); Bilirubin Total 0.7 mg/dL (0.0-1.0); Blood Urea Nitrogen 14 mg/dL (9-16); Carbon Dioxide 26 mmol/L (22-29); Chloride 100 mmol/L (96-108); Creatinine Clr Calc Pharmacy 55.2; Estimated Glomerular Filt Rate 54; Glucose Random 154 mg/dL (60-115); Lipase 10 U/L (8-78); Sodium 138 mmol/L (135-145); Total Protein 7.5 g/dL (6.5-8.0)
[2021-04-05 22:02] VITALS: BP 150/63; PULSE 82; RESP 16; TEMP 37.5; O2SAT 97
[2021-04-05 22:26] LABS: Reflex Lactate? Lactic Acid Added
[2021-04-05] MEDS: metroNIDAZOLE/NS 500 MG/100 ML PIGGYBACK 100 MG IV (22:44)
[2021-04-05 23:03] LABS: ~Lactic Acid-LAB USE ONLY 1.9 mmol/L (0.5-2.0)
[2021-04-05 23:18] LABS: COVID-19 Test Negative (Negative)
[2021-04-06] VITALS (7 sets, daily range): BP systolic 119–152; BP diastolic 53–68; PULSE 76–89; RESP 16–22; TEMP 36.8–37.1; O2SAT 95–97
[2021-04-06] MEDS: oxyCODONE HCl Immed Release 5 MG TABLET PO ×3 (00:07→12:26)
[2021-04-06] MEDS: Lactated Ringers 1,000 ML 80 ML IVCONT ×3 (00:08→23:00)
[2021-04-06] MEDS: Enoxaparin Sodium 40 MG/0.4 ML SYRINGE SUBCUT (00:08)
--- NOTE | 2021-04-06 00:16 | PC.NURSE ---
pt medicated per mar, pt reposition for comfort. N/v at this time. pt medicated per abd discomfort. Will continue to monitor.
[2021-04-06] MEDS: metroNIDAZOLE/NS 500 MG/100 ML PIGGYBACK 100 MG IV (06:16)
--- NOTE | 2021-04-06 06:43 | P.HPHOSP_ITS ---
History of Present Illness Date of Service: 04/05/21 Chief Complaint: abd pain 76-year-old female with past medical history significant for hypertension, hyperlipidemia, hypothyroidism, type 2 diabetes, anxiety, and history of staghorn calculi presents to the hospital with complaints of abdominal pain. Patient describes the abdominal pain as 10/10, epigastric, radiating to the back, intermittent, lasting few hours and resolving spontaneously.dshe is also complaining of right flank pain radiating to the groin, Patient reports that she has been having burning on urination as well as frequency. She went to her PCP on Tuesday for these symptoms, did a UA but has not received the results back. She continues to have dysuria and frequency. She has had chills, febrile with a temp of a 100 degrees at home, has nausea, 1 episode of vomiting, no diarrhea constipation, and no lower extremity edema. No headache or change in vision, no weakness numbness or tingling. On arrival to the ED patient hemodynamically stable with no significant abnormal vitals except slightly elevated blood pressure Labs are significant for WBC count of 17.2, lactic acid of 2.1 which resolved after by IV fluids, AST of 71, ALT of 41, alk-phos of 53, UA positive, for leukocyte Estrace and WBC, lipase of 10. Abdomen pelvic CT shows abnormal sigmoid colon, diverticulitis vs carcinoma must be consideration and therefore sigmoidoscopy is recommended. although has not changes since 02/16/2021. Abnormal liver with nodular border and hypertrophied left lobe suggesting cirrhosis with associated mild splenomegaly. Cholelithiasis without cholecystitis, extensive right renal calculi with some calculus disease on the left, urology is consulted and will see patient in a.m. Review of Systems Review of Systems: Yes all other systems are reviewed and are negative [facility] Medical History Anxiety Diabetes mellitus, type II Ganglion cyst HTN (hypertension) Hypercholesterolemia Hypothyroidism Low back pain OA (osteoarthritis) Obstructive airway disease Perirectal abscess Plantar fasciitis Primary osteoarthritis of right knee Renal calculus, bilateral Renal calyceal dilation determined by ultrasound Renal stones Retained ureteral stent Sciatica Staghorn calculus UTI (urinary tract infection) Surgical History History of surgery Social History Alcohol intake: never Patient Tobacco Use Status: Former Tobacco user Use of substances other than those prescribed or required for medical reasons: No Advance Directives: No Advance Directives Information Provided: No Meds Allergies Allergy/AdvReac Type Severity Reaction Status Date / Time chlorpheniramine Allergy Severe HALLUCINATI Verified 04/05/21 17:57 [From TUSSIONEX] ONS escitalopram [ESCITALOPRAM] Allergy Severe DISSOCIATIVE Verified 04/05/21 17:57 REACTION fluoxetine [FLUOXETINE] Allergy Severe DISSOCIATIVE Verified 04/05/21 17:57 REACTION hydrocodone [From TUSSIONEX] Allergy Severe HALLUCINATI Verified 04/05/21 17:57 ONS ibuprofen [IBUPROFEN] Allergy Severe THROAT Verified 04/05/21 17:57 SWELLING Sulfa (Sulfonamide Allergy Severe DYSPNEA Verified 04/05/21 17:57 Antibiotics) [SULFA (SULFONAMIDE ANTIBIOTICS)] clarithromycin [From BIAXIN] Allergy Intermediate ABD.PAIN Verified 04/05/21 17:57 erythromycin base Allergy Intermediate RASH Verified 04/05/21 17:57 [ERYTHROMYCIN BASE] Penicillins [PENICILLINS] Allergy Intermediate RASH Verified 04/05/21 17:57 tetracycline [TETRACYCLINE] Allergy Intermediate DIARRHEA Verified 04/05/21 17:57 ciprofloxacin [From CIPRO] Allergy Unknown ANAPHYLAXIS Verified 04/05/21 17:57 codeine [CODEINE] Allergy Unknown TINNITIS Verified 04/05/21 17:57 duloxetine [DULOXETINE] Allergy Unknown FACIAL Verified 04/05/21 17:57 NUMBNESS guaifenesin Allergy Unknown Unknown Verified 04/05/21 17:57 penicillin V Allergy Unknown Unknown Verified 04/05/21 17:57 pregabalin Allergy Unknown Unknown Verified 04/05/21 17:57 biaxin Allergy Unknown abdominal Uncoded 01/19/21 12:59 pain cipro Allergy Unknown angioedema Uncoded 01/19/21 12:59 Erythromycin Allergy Unknown Unknown Uncoded 01/19/21 12:59 erythromycin Allergy Unknown rash Uncoded 01/19/21 12:59 fluoxetine Allergy Unknown hallucinations, Uncoded 01/19/21 12:59 fogginess , throat tightening ibuprofen Allergy Unknown throat Uncoded 01/19/21 12:59 swelling PCN Allergy Unknown rash Uncoded 01/19/21 12:59 sulfa Allergy Unknown dyspnea Uncoded 01/19/21 12:59 tetracycline Allergy Unknown diarrhea Uncoded 01/19/21 12:59 tussionex Allergy Unknown hallucinati Uncoded 01/19/21 12:59 ons Active Medications: Current Medications Acetaminophen (Acetaminophen 325 Mg Tablet) 650 mg PO Q6H PRN PRN Reason: Pain, Mild (Pain Scale 1-3) Atorvastatin Calcium (Atorvastatin Calcium 10 Mg Tablet) 10 mg PO DAILY [facility] Dextrose (Dextrose 50 % 25 Gm/50 Ml Syringe) 25 gm IVPUSH Q15M PRN; Protocol PRN Reason: per Hypoglycemia Standing Ord. Enoxaparin Sodium (Enoxaparin Sodium 40 Mg/0.4 Ml Syringe) 40 mg SUBCUT Q24H [facility] Last Admin: 04/06/21 00:08 Dose: 40 mg Documented by: Furosemide (Furosemide 40 Mg Tablet) 40 mg PO BID@0800,1700 [facility]; Protocol Glucose (Glucose Gel 15 Gm Gel..Gram.) 15 gm PO Q15M PRN; Protocol PRN Reason: per Hypoglycemia Standing Ord. Ceftriaxone Sodium 1 gm/ (Sodium Chloride) 50 mls @ 100 mls/hr IV Q24H [facility] Metronidazole (Flagyl) 500 mg in 100 mls @ 100 mls/hr IV Q8H [facility] Last Admin: 04/06/21 06:16 Dose: 100 mls/hr Documented by: Lactated Ringer's (Lr) 1,000 mls @ 80 mls/hr IVCONT .[id number] [facility] Last Admin: 04/06/21 00:08 Dose: 80 mls/hr Documented by: Insulin Human Lispro (Insulin Lispro 100 Unit/Ml 3 Ml Vial) 0 unit SUBCUT QIDACHS [facility]; Protocol Levothyroxine Sodium (Levothyroxine Sodium 112 Mcg Tablet) 112 mcg PO DAILY@0630 [facility] Lisinopril (Lisinopril 10 Mg Tablet) 10 mg PO DAILY [facility]; Protocol Ondansetron HCl (Ondansetron Hcl 4 Mg/2 Ml Vial) 4 mg IVPUSH Q8H PRN PRN Reason: Nausea and Vomiting Oxycodone HCl (Oxycodone Hcl Immed Release 5 Mg Tablet) 5 mg PO Q6H PRN PRN Reason: Pain, Severe (Pain Scale 7-10) Last Admin: 04/06/21 06:17 Dose: 5 mg Documented by: Pharmacy Consult (Consult Rx Perform Med Rec) 1 each MISCELLANE ONCE STA Stop: 04/05/21 22:18 Sodium Chloride (0.9 % Sodium Chloride Flush 3 Ml Syringe) [facility] Last Admin: 04/06/21 00:51 Dose: Not Given Documented by: Home Medications Medication Instructions Recorded Confirmed Last Taken Type furosemide 40 mg tablet 40 mg PO BID 08/28/20 04/05/21 Unknown History levothyroxine 112 mcg tablet 112 mcg PO DAILY 08/28/20 04/05/21 Unknown History lisinopril 10 mg tablet 10 mg PO DAILY 08/28/20 04/05/21 Unknown History atorvastatin 10 mg tablet 1 tab PO DAILY 04/05/21 04/05/21 Unknown History metformin 500 mg tablet,extended 1 tab PO QPM 04/06/21 04/06/21 Unknown History release 24 hr pyridoxine (vitamin B6) 100 mg 1 tab PO DAILY 04/06/21 04/06/21 Unknown History tablet Physical Exam Vital Signs and Narrative: Vital Signs: Last Vital Signs Temp 99.5 F 04/05/21 22:02 Pulse 84 04/06/21 05:52 Resp 22 H 04/06/21 05:52 BP 152/57 H 04/06/21 05:52 Pulse Ox 97 04/06/21 05:52 BMI result Body Mass Index 43.4 Const: General: cooperative and no acute distress Orientation /consciousness: patient oriented x3 Eyes: General: appearance normal, both eyes and all related structures Pupils: Equal, round and reactive pupils present Resp: Effort & Inspection: normal respiratory effort Auscultation: clear to auscultation bilaterally Cardio: Rate: regular rate Rhythm: regular rhythm GI: Other: right upper quadrant tenderness as well as tenderness in the epigastric region, has guarding Palpation (GI): Soft to palpation Auscultation: normal bowel sounds : Other: right CVA tenderness Skin: General skin exam: no rashes or lesions noted Neuro: General: patient oriented x3 Cranial nerves: Yes Equal, round and reactive pupils present Cognition (Neuro): normal cognition Extrem: General: Yes normal to inspection and Yes no pedal edema Results Labs CBC and Chem 7: 04/05/21 21:15 04/05/21 21:15 Labs: Laboratory Results - last 24 hr 04/05/21 04/05/21 04/05/21 18:16 20:23 21:15 MCV 92.7 MCH 29.9 MCHC 32.2 RDW 14.2 Plt Count 215 MPV 10.3 Immature Gran % (Auto) 0.7 H Neut % (Auto) 79.1 H Lymph % (Auto) 14.7 L [place] % (Auto) 5.0 Eos % (Auto) 0.3 Baso % (Auto) 0.2 Lymph # (Auto) 2.5 [place] # (Auto) 0.9 Eos # (Auto) 0.1 Baso # (Auto) 0.0 Abs Immat Gran (auto) 0.12 H Absolute Neuts (auto) 13.6 H Absolute Nucleated RBC 0.000 Nucleated RBC % (auto) 0.0 Anion Gap Estim Creat Clear Calc Estimated GFR Random Glucose Lactic Acid 2.1 H* Lactic Acid F/U @ 2Hr Calcium Total Bilirubin Direct Bilirubin AST ALT Alkaline Phosphatase Total Protein Albumin Lipase Urine Color YELLOW Urine Appearance CLOUDY Urine pH 6.0 Ur Specific [place] 1.010 Urine Protein 1+ H Urine Glucose (UA) NEG Urine Ketones NEG Urine Blood 2+ H Urine Nitrite NEG Ur Leukocyte Esterase 3+ H Urine RBC 10-14 H Urine WBC TNTC H Ur Squamous Epith Cells 1+ Amorphous Sediment TRACE Urine Bacteria NONE COVID-19 (JOSE MARIA) COVID-19 Clin Com 04/05/21 04/05/21 04/05/21 21:15 22:48 22:51 MCV MCH MCHC RDW Plt Count MPV Immature Gran % (Auto) Neut % (Auto) Lymph % (Auto) [place] % (Auto) Eos % (Auto) Baso % (Auto) Lymph # (Auto) [place] # (Auto) Eos # (Auto) Baso # (Auto) Abs Immat Gran (auto) Absolute Neuts (auto) Absolute Nucleated RBC Nucleated RBC % (auto) Anion Gap 16 Estim Creat Clear Calc 55.2 Estimated GFR 54 Random Glucose 154 H Lactic Acid Lactic Acid F/U @ 2Hr 1.9 Calcium 9.0 Total Bilirubin 0.7 Direct Bilirubin 0.2 AST 71 H ALT 41 H Alkaline Phosphatase 53 Total Protein 7.5 Albumin 3.5 Lipase 10 Urine Color Urine Appearance Urine pH Ur Specific [place] Urine Protein Urine Glucose (UA) Urine Ketones Urine Blood Urine Nitrite Ur Leukocyte Esterase Urine RBC Urine WBC Ur Squamous Epith Cells Amorphous Sediment Urine Bacteria COVID-19 (JOSE MARIA) Negative COVID-19 Clin Com See Note Imaging Radiologist's Impressions: Impressions Abdomen/Pelvis CT 04/05/21 21:06 IMPRESSION: Abnormal sigmoid colon. Given the lack of change since 02/16/2021, carcinoma must be a consideration and therefore sigmoidoscopy, if this has not already been performed, is recommended. Abnormal liver with nodular border and hypertrophied left lobe suggesting cirrhosis with associated mild splenomegaly. Cholelithiasis without cholecystitis Extensive right renal calculi with some calculus disease on the left. Fleischner guidelines were followed. Assessment and Plan (1) Diverticulitis: Status: Acute (2) Renal stones: Status: Acute (3) UTI (urinary tract infection): Status: Acute (4) Abdominal pain: Status: Acute (5) Lactic acidosis: Status: Acute Plan this 76-year-old female with extensive past medical history presents to the hospital with complaints of abdominal pain found to have UTI as well as staghorn calculus # pyelonephritis/UTI - has CVA tenderness, for cm staghorn calculi in the right kidney - will treat with IV antibiotics, IV fluids - urology consulted - follow cultures # abdominal pain - has significant tenderness in the right upper quadrant - abdominal CT showed cholelithiasis with no cholecystitis but evidence of carcinoma versus diverticulitis - patient is on antibiotics for possible diverticulitis - will consult GI # lactic acidosis - likely secondary to above - resolved with IV fluids Med review still pending resume meds once mneds are reviewed DVT ppx: lovenox - will hold for possible Urology intervention Quality Stroke Does the patient have a stroke diagnosis?: No VTE Prior VTE?: No VTE Risk Level:: Medical - moderate - high VTE Device Contraindication: Treatment Not Indicated VTE Drug Contraindication: N/A - Med Ordered
[2021-04-06 07:02] LABS: Glucose, Whole Blood 159 mg/dL (60-115)
--- NOTE | 2021-04-06 07:04 | PHA.MEDREC ---
Pharmacy Consult ? Medication Reconciliation Pharmacy has reviewed the medication reconciliation completed by Lawanda. Patient is on metformin XR 500 mg not the metformin 500 mg. Patient also is taking vitmain b6 as well as acetaminophen. Maria Del Rosario Salguero, CharitoD
[2021-04-06 07:05] LABS: MANUAL DIFF FLAG NO
[2021-04-06 07:14] LABS: Basophils Percent Auto 0.4 % (0-2); Eosinophils Absolute Auto 0.1 X10*3/uL (0.0-0.4); Eosinophils Percent Auto 1.2 % (0-4); Hematocrit 38.9 % (37.0-47.0); Imm Gran Abs Auto 0.09 X10*3/uL (0.00-0.03); Imm Gran Pct Auto 0.8 % (0.0-0.4); Lymphocytes Absolute Auto 2.4 X10*3/uL (1.2-4.9); Lymphocytes Percent Auto 22.6 % (20-40); Mean Corpuscular HGB Conc 30.8 g/dl (31.0-35.0); Mean Corpuscular Hemoglobin 29.7 pg (27.0-33.0); Mean Corpuscular Volume 96.3 fL (80.0-98.0); Mean Platelet Volume 10.2 fL (9.4-12.3); Monocytes Absolute Auto 0.7 X10*3/uL (0.1-1.2); Monocytes Percent Auto 6.7 % (2-11); Neutrophils Absolute Auto 7.3 x10*3/uL (2.0-8.3); Neutrophils Percent Auto 68.3 % (45-73); Platelet Count 210 X10*3/uL (160-400); Red Blood Count 4.04 X10*6/uL (4.20-5.50); Red Cell Distribution Width 14.3 % (11.0-16.0); White Blood Count 10.7 X10*3/uL (4.8-10.8)
[2021-04-06 07:22] LABS: Anion Gap 11 (12-20); Blood Urea Nitrogen 12 mg/dL (9-16); Calcium 8.7 mg/dL (8.4-10.2); Carbon Dioxide 27 mmol/L (22-29); Chloride 103 mmol/L (96-108); Creatinine Clr Calc Pharmacy 54.6; Estimated Glomerular Filt Rate 53; Glucose Random 169 mg/dL (60-115); Potassium 4.1 mmol/L (3.3-5.1); Sodium 137 mmol/L (135-145)
--- NOTE | 2021-04-06 07:30 | PM.GICN ---
History of Present Illness Data of Consult Service Date: 04/06/21 Requesting physician: Sia Santiago Primary Care Provider: Preston Wang MD, DO HPI Reason for consult: Diverticulitis versus carcinoma on CT scan 76 YF came to [facility] ED on 04/05/21 with abdominal pain: 76 YF with hypertension, hyperlipidemia, hypothyroidism, type 2 diabetes, anxiety, and history of staghorn calculi? presents to the hospital with complaints of abdominal pain.? Patient describes the abdominal pain as 10/10, epigastric, radiating to the? back,? intermittent, lasting few hours and resolving spontaneously. She is also complaining of right flank pain radiating to the groin, ? Patient reports that she has been having burning on urination as well as frequency.? She went to her PCP on Tuesday for these symptoms, did a UA but has not received the results back.? She continues to have dysuria and frequency.? She has had chills, febrile with a temp of a 100 degrees at home, has nausea, 1 episode of vomiting, no diarrhea constipation, and no lower extremity edema.? No headache or change in vision, no weakness numbness or tingling.? Pain started at 04:00 on 04/05/2021. Patient notes right upper quadrant and lower abdominal pain sometimes radiating to the back associated with sweating. Patient reports constant low-grade pain with superimposed intermittent stabbing pain. Patient notes nausea and dry heaves. She denies noticing any change in her bowel movements, black stools or rectal bleeding. Pain improves when she takes oxycodone. Patient admits to intentional weight loss of 30 lb over the past several months (baseline wt of 260 decreased to 233 lbs) On arrival to the ED patient hemodynamically stable with no significant abnormal vitals except slightly elevated blood pressure Labs are significant for? WBC count of 17.2, lactic acid of 2.1 which resolved after by IV fluids, AST of 71, ALT of 41, alk-phos of 53, UA positive, for leukocyte Estrace and WBC, lipase of 10. Patient denies major cardiac or pulmonary problems, loud snoring or sleep apnea Denies smoking or EtOH abuse. Denies being on chronic anticoagulation and takes Tylenol p.r.n. for pain Patient lives with her boyfriend and has no children (reports having 5 miscarriages) Patient denies known family history of colon polyps, colon cancer or other GI malignancies. PAST COLONOSCOPY: 2002 patient had a colonoscopy by Dr. Luther which showed sigmoid diverticulosis and internal hemorrhoids. No polyps were detected IMAGING STUDIES: 04/05/[address] SCAN SHOWED: Abnormal sigmoid colon. Given the lack of change since 02/16/2021, carcinoma must be a consideration and therefore sigmoidoscopy, if this has not already been performed, is recommended. ? Abnormal liver with nodular border and hypertrophied left lobe suggesting cirrhosis with associated mild splenomegaly. ? Cholelithiasis without cholecystitis ? Extensive right renal calculi with some calculus disease on the left. Review of Systems Constitutional: Constitutional: Reports as per HPI and Reports no additional constitutional complaints Cardiovascular: Cardiovascular: Reports as per HPI and Reports no additional cardiovascular complaints Respiratory: Respiratory: Reports as per HPI and Reports no additional respiratory complaints Gastrointestinal: Gastrointestinal: Reports as per HPI, Reports no additional gastrointestinal complaints and Reports abdominal pain Genitourinary: Genitourinary: Reports as per HPI Musculoskeletal: Musculoskeletal: Reports no additional musculoskeletal complaints and Reports as per HPI Neurologic: Reports system reviewed and no additional complaints, except as documented and Reports as per HPI [facility] Past Medical History Medical History Anxiety Diabetes mellitus, type II Ganglion cyst HTN (hypertension) Hypercholesterolemia Hypothyroidism Low back pain OA (osteoarthritis) Obstructive airway disease Perirectal abscess Plantar fasciitis Primary osteoarthritis of right knee Renal calculus, bilateral Renal calyceal dilation determined by ultrasound Renal stones Retained ureteral stent Sciatica Staghorn calculus UTI (urinary tract infection) Surgical History Surgical History History of surgery Social History Social History Household Members: Significant Other Housing: House Do you presently have visiting nurse or other home services: No Alcohol intake: never Patient Tobacco Use Status: Former Tobacco user Advance Directives Date on File: 04/06/21 service: No Current occupational status: disabled Meds Allergies Allergy/AdvReac Type Severity Reaction Status Date / Time chlorpheniramine Allergy Severe HALLUCINATI Verified 04/05/21 17:57 [From TUSSIONEX] ONS escitalopram [ESCITALOPRAM] Allergy Severe DISSOCIATIVE Verified 04/05/21 17:57 REACTION fluoxetine [FLUOXETINE] Allergy Severe DISSOCIATIVE Verified 04/05/21 17:57 REACTION hydrocodone [From TUSSIONEX] Allergy Severe HALLUCINATI Verified 04/05/21 17:57 ONS ibuprofen [IBUPROFEN] Allergy Severe THROAT Verified 04/05/21 17:57 SWELLING Sulfa (Sulfonamide Allergy Severe DYSPNEA Verified 04/05/21 17:57 Antibiotics) [SULFA (SULFONAMIDE ANTIBIOTICS)] clarithromycin [From BIAXIN] Allergy Intermediate ABD.PAIN Verified 04/05/21 17:57 erythromycin base Allergy Intermediate RASH Verified 04/05/21 17:57 [ERYTHROMYCIN BASE] Penicillins [PENICILLINS] Allergy Intermediate RASH Verified 04/05/21 17:57 tetracycline [TETRACYCLINE] Allergy Intermediate DIARRHEA Verified 04/05/21 17:57 ciprofloxacin [From CIPRO] Allergy Unknown ANAPHYLAXIS Verified 04/05/21 17:57 codeine [CODEINE] Allergy Unknown TINNITIS Verified 04/05/21 17:57 duloxetine [DULOXETINE] Allergy Unknown FACIAL Verified 04/05/21 17:57 NUMBNESS guaifenesin Allergy Unknown Unknown Verified 04/05/21 17:57 levofloxacin [From Levaquin] Allergy Unknown Unknown Verified 04/10/21 16:10 penicillin V Allergy Unknown Unknown Verified 04/05/21 17:57 pregabalin Allergy Unknown Unknown Verified 04/05/21 17:57 biaxin Allergy Unknown abdominal Uncoded 01/19/21 12:59 pain cipro Allergy Unknown angioedema Uncoded 01/19/21 12:59 Erythromycin Allergy Unknown Unknown Uncoded 01/19/21 12:59 erythromycin Allergy Unknown rash Uncoded 01/19/21 12:59 fluoxetine Allergy Unknown hallucinations, Uncoded 01/19/21 12:59 fogginess , throat tightening ibuprofen Allergy Unknown throat Uncoded 01/19/21 12:59 swelling PCN Allergy Unknown rash Uncoded 01/19/21 12:59 sulfa Allergy Unknown dyspnea Uncoded 01/19/21 12:59 tetracycline Allergy Unknown diarrhea Uncoded 01/19/21 12:59 tussionex Allergy Unknown hallucinati Uncoded 01/19/21 12:59 ons Active Medications: Current Medications Acetaminophen (Acetaminophen 325 Mg Tablet) 650 mg PO Q6H PRN PRN Reason: Pain, Mild (Pain Scale 1-3) Atorvastatin Calcium (Atorvastatin Calcium 10 Mg Tablet) 10 mg PO DAILY NOHELIA Dextrose (Dextrose 50 % 25 Gm/50 Ml Syringe) 25 gm IVPUSH Q15M PRN; Protocol PRN Reason: per Hypoglycemia Standing Ord. Furosemide (Furosemide 40 Mg Tablet) 40 mg PO BID@0800,1700 [facility]; Protocol Glucose (Glucose Gel 15 Gm Gel..Gram.) 15 gm PO Q15M PRN; Protocol PRN Reason: per Hypoglycemia Standing Ord. Ceftriaxone Sodium 1 gm/ (Sodium Chloride) 50 mls @ 100 mls/hr IV Q24H [facility] Metronidazole (Flagyl) 500 mg in 100 mls @ 100 mls/hr IV Q8H [facility] Last Admin: 04/06/21 06:16 Dose: 100 mls/hr Documented by: Lactated Ringer's (Lr) 1,000 mls @ 80 mls/hr IVCONT .[id number] [facility] Last Admin: 04/06/21 00:08 Dose: 80 mls/hr Documented by: Insulin Human Lispro (Insulin Lispro 100 Unit/Ml 3 Ml Vial) 0 unit SUBCUT QIDACHS [facility]; Protocol Levothyroxine Sodium (Levothyroxine Sodium 112 Mcg Tablet) 112 mcg PO DAILY@0630 [facility] Ondansetron HCl (Ondansetron Hcl 4 Mg/2 Ml Vial) 4 mg IVPUSH Q8H PRN PRN Reason: Nausea and Vomiting Oxycodone HCl (Oxycodone Hcl Immed Release 5 Mg Tablet) 5 mg PO Q6H PRN PRN Reason: Pain, Severe (Pain Scale 7-10) Last Admin: 04/06/21 06:17 Dose: 5 mg Documented by: Sodium Chloride (0.9 % Sodium Chloride Flush 3 Ml Syringe) [facility] Last Admin: 04/06/21 00:51 Dose: Not Given Documented by: Home Medications Medication Instructions Recorded Confirmed Last Taken Type furosemide 40 mg tablet 40 mg PO BID 08/28/20 04/06/21 04/05/21 History levothyroxine 112 mcg tablet 112 mcg PO DAILY 08/28/20 04/06/21 04/05/21 History lisinopril 10 mg tablet 10 mg PO DAILY 08/28/20 04/06/21 04/05/21 History atorvastatin 10 mg tablet 1 tab PO DAILY 04/05/21 04/06/21 04/05/21 History acetaminophen 500 mg tablet 1,000 mg PO Q6H PRN 04/06/21 04/06/21 04/05/21 History metformin 500 mg tablet,extended 1 tab PO QPM 04/06/21 04/06/21 04/05/21 History release 24 hr pyridoxine (vitamin B6) 100 mg 2 tab PO DAILY 04/06/21 04/06/21 04/05/21 History tablet Physical Exam Vital Signs: Vital Signs: Last Vital Signs Temp 99.5 F 04/05/21 22:02 Pulse 84 04/06/21 05:52 Resp 22 H 04/06/21 05:52 BP 152/57 H 04/06/21 05:52 Pulse Ox 97 04/06/21 05:52 BMI result Body Mass Index 43.4 Const: General: healthy appearing and no acute distress Nutritional Appearance: obese Orientation/consciousness: patient oriented x3 Limitations: no limitations HENMT: Head: Yes normal to inspection Ears: hearing grossly normal bilaterally Mouth: Normal oral and palatal mucosa present Eyes: Sclerae: sclerae normal Pupils: Equal, round and reactive pupils present Neck: Neck: Yes normal visual inspection Chest: Chest palpation & inspection: normal inspection of the chest Resp: Effort & Inspection: normal respiratory effort Auscultation: clear to auscultation bilaterally Cardio: Palpation: normal PMI Rate: regular rate Rhythm: regular rhythm Heart sounds: S1 normal heart sound present, S2 normal heart sound present and no murmurs GI: Inspection: Yes obesity Palpation (GI): Soft to palpation, Tenderness to palpation present (GI) (Moderate right flank tenderness without rebound, Minimal LLQ tenderness) and No hepatosplenomegaly present Auscultation: normal bowel sounds Rectal Exam - Female: deferred Skin: General skin exam: no rashes or lesions noted Neuro: General: patient oriented x3, gait normal and moves all extremities Cranial nerves: Yes Equal, round and reactive pupils present Psych: Appearance: grossly normal Mental Status: mental status grossly normal Results Labs CBC & Chem 7: 04/10/21 10:29 04/10/21 11:31 Labs: Short CBC 04/05/21 04/06/21 Range/Units 21:15 06:59 WBC 17.2 H 10.7 (4.8-10.8) X10*3/uL Hgb 12.7 12.0 (12.0-16.0) g/dl Hct 39.4 38.9 (37.0-47.0) % Plt Count 215 210 (160-400) X10*3/uL BMP 04/05/21 04/06/21 21:15 06:59 Sodium 138 137 Potassium 4.0 4.1 Chloride 100 103 Carbon Dioxide 26 27 BUN 14 12 Creatinine 1.01 1.02 Calcium 9.0 8.7 Liver Function 04/05/21 Range/Units 21:15 Total Bilirubin 0.7 (0.0-1.0) mg/dL Direct Bilirubin 0.2 (0.0-0.5) mg/dL AST 71 H (5-31) U/L ALT 41 H (0-31) U/L Alkaline Phosphatase 53 (39-117) U/L Albumin 3.5 (3.5-5.0) g/dL Urine 04/05/21 Range/Units 18:16 Urine Color YELLOW Urine Appearance CLOUDY Urine pH 6.0 (5.0-8.0) Ur Specific [place] 1.010 (1.005-1.025) Urine Protein 1+ H (NEG-TRACE) MG/DL Urine Glucose (UA) NEG (NEG) MG/DL Assessment and Plan (1) Abdominal pain: Status: Acute (2) Diverticulitis: Status: Acute (3) Cholelithiasis: Status: Acute Plan 76 YF with hypertension, hyperlipidemia, hypothyroidism, type 2 diabetes, anxiety, and history of staghorn calculi? admitted with abdominal pain.? Labs are significant for? WBC count of 17.2, lactic acid of 2.1 which resolved after by IV fluids, AST of 71, ALT of 41, alk-phos of 53, UA positive, for leukocyte Estrace and WBC, lipase of 10. Abd CT scan showed abnormal sigmoid colon (unchanged since 02/16/2021, Abnormal liver with nodular border and hypertrophied left lobe suggesting cirrhosis with associated mild splenomegaly. Cholelithiasis without cholecystitis and extensive right renal calculi with some calculus disease on the left. RECOMMENDATIONS: 1. Agree with IV antibiotics, antiemetics and pain medications 2. Pt will be scheduled for a colonoscopy as an outpatient in 2-3 weeks after resolution of diverticulitis Procedures Date of Service Date of Service: 04/06/21
--- NOTE | 2021-04-06 07:40 | PC.NURSE ---
pt is a/o x 3, bedside ultrasound done. pt aware of plan of are for transfer to overflow unit. rn to rn report given earlier by anupama.
[2021-04-06 07:42] LABS: Alanine Aminotransferase 36 U/L (0-31); Albumin Level 3.3 g/dL (3.5-5.0); Alkaline Phosphatase 47 U/L (39-117); Aspartate Amino Transferase 48 U/L (5-31); Bilirubin Direct 0.4 mg/dL (0.0-0.5); Bilirubin Total 0.9 mg/dL (0.0-1.0); Total Protein 6.9 g/dL (6.5-8.0)
[2021-04-06] MEDS: amLODIPine Besylate 5 MG TABLET PO (08:19)
[2021-04-06] MEDS: Insulin Lispro 100 UNIT/ML 3 ML VIAL SUBCUT ×3 (08:19→21:20)
[2021-04-06] MEDS: Levothyroxine Sodium 112 MCG TABLET PO (08:19)
[2021-04-06] MEDS: Furosemide 40 MG TABLET PO ×2 (08:19→18:14)
[2021-04-06] MEDS: 0.9 % Sodium Chloride Flush 3 ML SYRINGE IVFLUSH (08:21)
[2021-04-06] MEDS: Atorvastatin Calcium 10 MG TABLET PO (08:21)
--- NOTE | 2021-04-06 10:24 | P.CDIC_ITS ---
CDI Concurrent Query Documentation Clarification: PHYSICIAN'S DOCUMENTATION REQUEST Date of Query: 04/06/21 1025 Patient Name: Xi Garrison Admit Date: 04/05/21 Dear Doctor, A review of the medical record indicates additional documentation may be needed. Please review below and update the documentation accordingly. Clinical Indicators: Height: [] 5 ft 1.77 inches Weight: [] 107.1 kg BMI: [] BMI 43.5 Other Clinical Notes Supporting Significance of the BMI: Risk Factors/Clinical Indicators/Treatments If possible, please provide an associated diagnosis related to the abnormal BMI, such as: For a BMI >= 40: * Overweight * Obesity * Due to excess calories * Drug induced * Due to other cause * Severe or Morbid Obesity * With alveolar hypoventilation * Without alveolar hypoventilation Or: * BMI is not significant * Other (please specify) * Unable to determine Use of terms such as suspected, likely, concern for, or probable (associated with a specific diagnosis that is being evaluated, monitored, or treated as if it exists) are acceptable and can be coded in the inpatient setting, when documented at the time of discharge. Thank you, Yanet Beltran RN Extension: [phone] Please use your independent medical judgment in providing your response. THIS QUERY IS PART OF THE PERMANENT MEDICAL RECORD Provider Response: Other Other Diagnosis: morbid obesity
--- NOTE | 2021-04-06 10:25 | MHC.CM.PN ---
CM MET WITH PT AND S/O WHO WAS AT BEDSIDE PT REPORTS SHE LIVES ALONE BUT HER S/O IS THERE NEARLY 30/08. SHE REPORTS SHE IS MOSTLY INDEPENDENT WITH ALL CARE BUT HE IS THERE IF SHE NEEDS HELP PT REPORTS SHE HAS A ROLLATOR SHE USES INSIDE THE HOUSE, A CANE SHE USES TO WALK TO THE CAR, AND A WHEELCHAIR SHE USES IF SHE IS GOING ANYWHERE THAT WILL REQUIRE WALKING A DISTANCE. PT REPORTS HER S/O, AZUL, IS HER HCP LIBERTAD LEMA IS HER PCP PT REPORTS SHE IS VACCINATED BUT HAS NOT YET RECEIVED THE BOOSTER IMM DELIVERED, COPY SENT TO [facility] CURRENT DC PLAN IS HOME, S/O TO TRANSPORT
--- NOTE | 2021-04-06 10:27 | PM.UROCN ---
History of Present Illness Consult details Consult date: 04/06/21 Narrative: Xi is a pleasant 76-year-old female. Known stone former Presented with question of right flank pain and urgency and frequency Found to have infected urine On imaging has large staghorn calculus on right side Follow the imaging findings which are being evaluated The right kidney demonstrates some cortical thinning compared to the left. Extensive calculi are present in the right kidney with staghorn type calculi filling the lower pole collecting system measuring about 4 cm in length. The stone measures about thousand Hounsfield units and is about 15 cm from the posterior axillary line.. No hydronephrosis is seen no ureteral calculi noted At this point would recommend antibiotic therapy. Definitive stone management should be held until urine sterilize to which will take proximally 2-4 weeks. Prior culture from October 2020 Proteus mirabilis. 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 Resistant to Levaquin. Sensitive to Bactrim. Would recommend initial IV therapy with transition to oral Bactrim Review of Systems Constitutional: Constitutional: Reports as per HPI and Reports no additional constitutional complaints Cardiovascular: Cardiovascular: Reports as per HPI and Reports no additional cardiovascular complaints Respiratory: Respiratory: Reports as per HPI and Reports no additional respiratory complaints Gastrointestinal: Gastrointestinal: Reports as per HPI and Reports no additional gastrointestinal complaints Genitourinary: Genitourinary: Reports as per HPI Musculoskeletal: Musculoskeletal: Reports no additional musculoskeletal complaints and Reports as per HPI Neurologic: Reports system reviewed and no additional complaints, except as documented and Reports as per HPI PMFSH Past Medical History Medical History Anxiety Diabetes mellitus, type II Ganglion cyst HTN (hypertension) Hypercholesterolemia Hypothyroidism Low back pain OA (osteoarthritis) Obstructive airway disease Perirectal abscess Plantar fasciitis Primary osteoarthritis of right knee Renal calculus, bilateral Renal calyceal dilation determined by ultrasound Renal stones Retained ureteral stent Sciatica Staghorn calculus UTI (urinary tract infection) Surgical History Surgical History History of surgery Social History Social History Alcohol intake: never Patient Tobacco Use Status: Former Tobacco user Use of substances other than those prescribed or required for medical reasons: No Advance Directives: No Advance Directives Information Provided: No service: No Current occupational status: disabled Meds Allergies Allergy/AdvReac Type Severity Reaction Status Date / Time chlorpheniramine Allergy Severe HALLUCINATI Verified 04/05/21 17:57 [From TUSSIONEX] ONS escitalopram [ESCITALOPRAM] Allergy Severe DISSOCIATIVE Verified 04/05/21 17:57 REACTION fluoxetine [FLUOXETINE] Allergy Severe DISSOCIATIVE Verified 04/05/21 17:57 REACTION hydrocodone [From TUSSIONEX] Allergy Severe HALLUCINATI Verified 04/05/21 17:57 ONS ibuprofen [IBUPROFEN] Allergy Severe THROAT Verified 04/05/21 17:57 SWELLING Sulfa (Sulfonamide Allergy Severe DYSPNEA Verified 04/05/21 17:57 Antibiotics) [SULFA (SULFONAMIDE ANTIBIOTICS)] clarithromycin [From BIAXIN] Allergy Intermediate ABD.PAIN Verified 04/05/21 17:57 erythromycin base Allergy Intermediate RASH Verified 04/05/21 17:57 [ERYTHROMYCIN BASE] Penicillins [PENICILLINS] Allergy Intermediate RASH Verified 04/05/21 17:57 tetracycline [TETRACYCLINE] Allergy Intermediate DIARRHEA Verified 04/05/21 17:57 ciprofloxacin [From CIPRO] Allergy Unknown ANAPHYLAXIS Verified 04/05/21 17:57 codeine [CODEINE] Allergy Unknown TINNITIS Verified 04/05/21 17:57 duloxetine [DULOXETINE] Allergy Unknown FACIAL Verified 04/05/21 17:57 NUMBNESS guaifenesin Allergy Unknown Unknown Verified 04/05/21 17:57 penicillin V Allergy Unknown Unknown Verified 04/05/21 17:57 pregabalin Allergy Unknown Unknown Verified 04/05/21 17:57 biaxin Allergy Unknown abdominal Uncoded 01/19/21 12:59 pain cipro Allergy Unknown angioedema Uncoded 01/19/21 12:59 Erythromycin Allergy Unknown Unknown Uncoded 01/19/21 12:59 erythromycin Allergy Unknown rash Uncoded 01/19/21 12:59 fluoxetine Allergy Unknown hallucinations, Uncoded 01/19/21 12:59 fogginess , throat tightening ibuprofen Allergy Unknown throat Uncoded 01/19/21 12:59 swelling PCN Allergy Unknown rash Uncoded 01/19/21 12:59 sulfa Allergy Unknown dyspnea Uncoded 01/19/21 12:59 tetracycline Allergy Unknown diarrhea Uncoded 01/19/21 12:59 tussionex Allergy Unknown hallucinati Uncoded 01/19/21 12:59 ons Active Medications: Current Medications Acetaminophen (Acetaminophen 325 Mg Tablet) 650 mg PO Q6H PRN PRN Reason: Pain, Mild (Pain Scale 1-3) Amlodipine Besylate (Amlodipine Besylate 5 Mg Tablet) 5 mg PO DAILY [facility]; Protocol Last Admin: 04/06/21 08:19 Dose: 5 mg Documented by: Atorvastatin Calcium (Atorvastatin Calcium 10 Mg Tablet) 10 mg PO DAILY [facility] Last Admin: 04/06/21 08:21 Dose: 10 mg Documented by: Dextrose (Dextrose 50 % 25 Gm/50 Ml Syringe) 25 gm IVPUSH Q15M PRN; Protocol PRN Reason: per Hypoglycemia Standing Ord. Furosemide (Furosemide 40 Mg Tablet) 40 mg PO BID@0800,1700 [facility]; Protocol Last Admin: 04/06/21 08:19 Dose: 40 mg Documented by: Glucose (Glucose Gel 15 Gm Gel..Gram.) 15 gm PO Q15M PRN; Protocol PRN Reason: per Hypoglycemia Standing Ord. Ceftriaxone Sodium 1 gm/ (Sodium Chloride) 50 mls @ 100 mls/hr IV Q24H [facility] Metronidazole (Flagyl) 500 mg in 100 mls @ 100 mls/hr IV Q8H [facility] Last Infusion: 04/06/21 07:30 Dose: Infused Documented by: Lactated Ringer's (Lr) 1,000 mls @ 80 mls/hr IVCONT .[id number] [facility] Last Admin: 04/06/21 00:08 Dose: 80 mls/hr Documented by: Insulin Human Lispro (Insulin Lispro 100 Unit/Ml 3 Ml Vial) 0 unit SUBCUT QIDACHS [facility]; Protocol Last Admin: 04/06/21 08:19 Dose: 2 unit Documented by: Levothyroxine Sodium (Levothyroxine Sodium 112 Mcg Tablet) 112 mcg PO DAILY@0630 [facility] Last Admin: 04/06/21 08:19 Dose: 112 mcg Documented by: Ondansetron HCl (Ondansetron Hcl 4 Mg/2 Ml Vial) 4 mg IVPUSH Q8H PRN PRN Reason: Nausea and Vomiting Oxycodone HCl (Oxycodone Hcl Immed Release 5 Mg Tablet) 5 mg PO Q6H PRN PRN Reason: Pain, Severe (Pain Scale 7-10) Last Admin: 04/06/21 06:17 Dose: 5 mg Documented by: Sodium Chloride (0.9 % Sodium Chloride Flush 3 Ml Syringe) 3 ml IVFLUSH QSHIFT [facility] Last Admin: 04/06/21 08:21 Dose: 3 ml Documented by: Home Medications Medication Instructions Recorded Confirmed Last Taken Type furosemide 40 mg tablet 40 mg PO BID 08/28/20 04/06/21 04/05/21 History levothyroxine 112 mcg tablet 112 mcg PO DAILY 08/28/20 04/06/21 04/05/21 History lisinopril 10 mg tablet 10 mg PO DAILY 08/28/20 04/06/21 04/05/21 History atorvastatin 10 mg tablet 1 tab PO DAILY 04/05/21 04/06/21 04/05/21 History acetaminophen 500 mg tablet 1,000 mg PO Q6H PRN 04/06/21 04/06/21 04/05/21 History metformin 500 mg tablet,extended 1 tab PO QPM 04/06/21 04/06/21 04/05/21 History release 24 hr pyridoxine (vitamin B6) 100 mg 2 tab PO DAILY 04/06/21 04/06/21 04/05/21 History tablet Physical Exam Vital Signs: Vital Signs: Last Vital Signs Temp 99.5 F 04/05/21 22:02 Pulse 84 04/06/21 08:01 Resp 22 H 04/06/21 08:01 BP 146/54 H 04/06/21 08:01 Pulse Ox 96 04/06/21 08:01 BMI result Body Mass Index 43.4 Const: General: cooperative, healthy appearing, comfortable and no acute distress Orientation/consciousness: patient oriented x3 HENMT: Face and sinus: Yes normal facial exam Mouth: moist mucous membranes Neck: Neck: Yes normal visual inspection, Yes full ROM and Yes trachea midline Chest: Chest palpation & inspection: normal inspection of the chest Resp: Effort & Inspection: normal respiratory effort, able to speak in complete sentences and no respiratory distress GI: Inspection: Yes normal to inspection Back/Spine/Pelvis: Cervical Spine: normal cervical lordosis Thoracic/Lumbar Spine: thoracic and lumbar spine normal to inspection Skin: General skin exam: no rashes or lesions noted Neuro: General: patient oriented x3, tone normal and moves all extremities Extrem: General: Yes normal to inspection and Yes capillary refill normal Results Labs Result diagrams: 04/06/21 06:59 04/06/21 06:59 Labs: Abnormal lab results 04/05/21 04/05/21 04/05/21 Range/Units 18:16 20:23 21:15 WBC 17.2 H (4.8-10.8) X10*3/uL RBC (4.20-5.50) X10*6/uL MCHC (31.0-35.0) g/dl Immature Gran % (Auto) 0.7 H (0.0-0.4) % Neut % (Auto) 79.1 H (45-73) % Lymph % (Auto) 14.7 L (20-40) % Abs Immat Gran (auto) 0.12 H (0.00-0.03) X10*3/uL Absolute Neuts (auto) 13.6 H (2.0-8.3) x10*3/uL Anion Gap (12-20) POC Glucose (60-115) mg/dL Random Glucose (60-115) mg/dL Lactic Acid 2.1 H* (0.5-2.0) mmol/L AST (5-31) U/L ALT (0-31) U/L Albumin (3.5-5.0) g/dL Urine Protein 1+ H (NEG-TRACE) MG/DL Urine Blood 2+ H (NEG) Ur Leukocyte Esterase 3+ H (NEG) Urine RBC 10-14 H (0) /HPF Urine WBC TNTC H (0-4) /HPF 04/05/21 04/06/21 04/06/21 Range/Units 21:15 06:58 06:59 WBC (4.8-10.8) X10*3/uL RBC 4.04 L (4.20-5.50) X10*6/uL MCHC 30.8 L (31.0-35.0) g/dl Immature Gran % (Auto) 0.8 H (0.0-0.4) % Neut % (Auto) (45-73) % Lymph % (Auto) (20-40) % Abs Immat Gran (auto) 0.09 H (0.00-0.03) X10*3/uL Absolute Neuts (auto) (2.0-8.3) x10*3/uL Anion Gap (12-20) POC Glucose 159 H (60-115) mg/dL Random Glucose 154 H (60-115) mg/dL Lactic Acid (0.5-2.0) mmol/L AST 71 H (5-31) U/L ALT 41 H (0-31) U/L Albumin (3.5-5.0) g/dL Urine Protein (NEG-TRACE) MG/DL Urine Blood (NEG) Ur Leukocyte Esterase (NEG) Urine RBC (0) /HPF Urine WBC (0-4) /HPF 04/06/21 Range/Units 06:59 WBC (4.8-10.8) X10*3/uL RBC (4.20-5.50) X10*6/uL MCHC (31.0-35.0) g/dl Immature Gran % (Auto) (0.0-0.4) % Neut % (Auto) (45-73) % Lymph % (Auto) (20-40) % Abs Immat Gran (auto) (0.00-0.03) X10*3/uL Absolute Neuts (auto) (2.0-8.3) x10*3/uL Anion Gap 11 L (12-20) POC Glucose (60-115) mg/dL Random Glucose 169 H (60-115) mg/dL Lactic Acid (0.5-2.0) mmol/L AST 48 H (5-31) U/L ALT 36 H (0-31) U/L Albumin 3.3 L (3.5-5.0) g/dL Urine Protein (NEG-TRACE) MG/DL Urine Blood (NEG) Ur Leukocyte Esterase (NEG) Urine RBC (0) /HPF Urine WBC (0-4) /HPF Short CBC 04/05/21 04/06/21 Range/Units 21:15 06:59 WBC 17.2 H 10.7 (4.8-10.8) X10*3/uL Hgb 12.7 12.0 (12.0-16.0) g/dl Hct 39.4 38.9 (37.0-47.0) % Plt Count 215 210 (160-400) X10*3/uL BMP 04/05/21 04/06/21 21:15 06:59 Sodium 138 137 Potassium 4.0 4.1 Chloride 100 103 Carbon Dioxide 26 27 BUN 14 12 Creatinine 1.01 1.02 Calcium 9.0 8.7 Liver Function 02/27/22 02/28/22 Range/Units 21:15 06:59 Total Bilirubin 0.7 0.9 (0.0-1.0) mg/dL Direct Bilirubin 0.2 0.4 (0.0-0.5) mg/dL AST 71 H 48 H (5-31) U/L ALT 41 H 36 H (0-31) U/L Alkaline Phosphatase 53 47 (39-117) U/L Albumin 3.5 3.3 L (3.5-5.0) g/dL Urine 04/05/21 Range/Units 18:16 Urine Color YELLOW Urine Appearance CLOUDY Urine pH 6.0 (5.0-8.0) Ur Specific [place] 1.010 (1.005-1.025) Urine Protein 1+ H (NEG-TRACE) MG/DL Urine Glucose (UA) NEG (NEG) MG/DL All other labs normal. Assessment and Plan (1) Staghorn calculus: Status: Acute Plan antibiotic therapy Will start planning for stone intervention Procedures Date of Service Date of Service: 04/06/21
--- NOTE | 2021-04-06 11:15 | PC.NURSE ---
Pt arrived from the main ed and medicated per apr. Pt offering no complaints at this time. GI consulted. Pt ambulatory independently to the bathroom with a rolling walker. Pt offering no complaints at this time. belongings and callbell within reach.
--- NOTE | 2021-04-06 12:41 | HO.PM.IMPN ---
Subjective Subjective Date of Service: 04/07/21 Interval History: uti/melany Review of Systems Still has abdominal pain and dysuria Denies any chest pain or nausea or vomiting or fever chills Physical Exam Vital Signs: Vital Signs: Last Vital Signs Temp 99.5 F 04/05/21 22:02 Pulse 76 04/06/21 11:51 Resp 18 04/06/21 11:51 BP 119/53 L 04/06/21 11:51 Pulse Ox 97 04/06/21 11:51 BMI result Body Mass Index 43.4 Appearance: Alert.? Oriented X3.? not in distress.? Eyes: Pupils equal, round and reactive to light.? Sclera nonicteric.? ENT: Pharynx normal.? Moist mucous membranes. cvs: rrr, [id number] , no murmur res: clear to auscultation ,no rhonchii or wheezing abd: no rebound or guarding ,nt, bs present. : cva tenderness ? ext pulses present , no cyanosis . neuro: axo3 , nonfocal. Objective Data Active Medications Acetaminophen (Acetaminophen 325 Mg Tablet) 650 mg PO Q6H PRN PRN Reason: Pain, Mild (Pain Scale 1-3) Amlodipine Besylate (Amlodipine Besylate 5 Mg Tablet) 5 mg PO DAILY [facility]; Protocol Last Admin: 04/06/21 08:19 Dose: 5 mg Documented by: DIMAS Atorvastatin Calcium (Atorvastatin Calcium 10 Mg Tablet) 10 mg PO DAILY [facility] Last Admin: 04/06/21 08:21 Dose: 10 mg Documented by: DIMAS Dextrose (Dextrose 50 % 25 Gm/50 Ml Syringe) 25 gm IVPUSH Q15M PRN; Protocol PRN Reason: per Hypoglycemia Standing Ord. Furosemide (Furosemide 40 Mg Tablet) 40 mg PO BID@0800,1700 [facility]; Protocol Last Admin: 04/06/21 08:19 Dose: 40 mg Documented by: DIMAS Glucose (Glucose Gel 15 Gm Gel..Gram.) 15 gm PO Q15M PRN; Protocol PRN Reason: per Hypoglycemia Standing Ord. Ceftriaxone Sodium 1 gm/ (Sodium Chloride) 50 mls @ 100 mls/hr IV Q24H [facility] Metronidazole (Flagyl) 500 mg in 100 mls @ 100 mls/hr IV Q8H [facility] Last Infusion: 04/06/21 07:30 Dose: 0 mls/hr Documented by: DIMAS Lactated Ringer's (Lr) 1,000 mls @ 80 mls/hr IVCONT .[id number] [facility] Last Admin: 04/06/21 12:27 Dose: 80 mls/hr Documented by: DIMAS Insulin Human Lispro (Insulin Lispro 100 Unit/Ml 3 Ml Vial) 0 unit SUBCUT QIDACHS [facility]; Protocol Last Admin: 04/06/21 08:19 Dose: 2 unit Documented by: DMIAS Levothyroxine Sodium (Levothyroxine Sodium 112 Mcg Tablet) 112 mcg PO DAILY@0630 [facility] Last Admin: 04/06/21 08:19 Dose: 112 mcg Documented by: DIMAS Ondansetron HCl (Ondansetron Hcl 4 Mg/2 Ml Vial) 4 mg IVPUSH Q8H PRN PRN Reason: Nausea and Vomiting Oxycodone HCl (Oxycodone Hcl Immed Release 5 Mg Tablet) 5 mg PO Q6H PRN PRN Reason: Pain, Severe (Pain Scale 7-10) Last Admin: 04/06/21 12:26 Dose: 5 mg Documented by: DIMAS Sodium Chloride (0.9 % Sodium Chloride Flush 3 Ml Syringe) 3 ml IVFLUSH [facility] Last Admin: 04/06/21 08:21 Dose: 3 ml Documented by: DIMAS Labs CBC & Chem 7: 04/06/21 06:59 04/06/21 06:59 Labs: Laboratory Results - last 24 hr 04/05/21 04/05/21 04/05/21 18:16 20:23 21:15 MCV 92.7 MCH 29.9 MCHC 32.2 RDW 14.2 Plt Count 215 MPV 10.3 Immature Gran % (Auto) 0.7 H Neut % (Auto) 79.1 H Lymph % (Auto) 14.7 L [place] % (Auto) 5.0 Eos % (Auto) 0.3 Baso % (Auto) 0.2 Lymph # (Auto) 2.5 Taylor # (Auto) 0.9 Eos # (Auto) 0.1 Baso # (Auto) 0.0 Abs Immat Gran (auto) 0.12 H Absolute Neuts (auto) 13.6 H Absolute Nucleated RBC 0.000 Nucleated RBC % (auto) 0.0 Anion Gap Estim Creat Clear Calc Estimated GFR POC Glucose Random Glucose Lactic Acid 2.1 H* Lactic Acid F/U @ 2Hr Calcium Total Bilirubin Direct Bilirubin AST ALT Alkaline Phosphatase Total Protein Albumin Lipase Urine Color YELLOW Urine Appearance CLOUDY Urine pH 6.0 Ur Specific [place] 1.010 Urine Protein 1+ H Urine Glucose (UA) NEG Urine Ketones NEG Urine Blood 2+ H Urine Nitrite NEG Ur Leukocyte Esterase 3+ H Urine RBC 10-14 H Urine WBC TNTC H Ur Squamous Epith Cells 1+ Amorphous Sediment TRACE Urine Bacteria NONE COVID-19 ([facility]) COVID-19 Clin Com 04/05/21 04/05/21 04/05/21 21:15 22:48 22:51 MCV MCH MCHC RDW Plt Count MPV Immature Gran % (Auto) Neut % (Auto) Lymph % (Auto) Taylor % (Auto) Eos % (Auto) Baso % (Auto) Lymph # (Auto) Taylor # (Auto) Eos # (Auto) Baso # (Auto) Abs Immat Gran (auto) Absolute Neuts (auto) Absolute Nucleated RBC Nucleated RBC % (auto) Anion Gap 16 Estim Creat Clear Calc 55.2 Estimated GFR 54 POC Glucose Random Glucose 154 H Lactic Acid Lactic Acid F/U @ 2Hr 1.9 Calcium 9.0 Total Bilirubin 0.7 Direct Bilirubin 0.2 AST 71 H ALT 41 H Alkaline Phosphatase 53 Total Protein 7.5 Albumin 3.5 Lipase 10 Urine Color Urine Appearance Urine pH Ur Specific [place] Urine Protein Urine Glucose (UA) Urine Ketones Urine Blood Urine Nitrite Ur Leukocyte Esterase Urine RBC Urine WBC Ur Squamous Epith Cells Amorphous Sediment Urine Bacteria COVID-19 ([facility]SE MARIA) Negative COVID-19 Clin Com See Note 04/06/21 04/06/21 04/06/21 06:58 06:59 06:59 MCV 96.3 MCH 29.7 MCHC 30.8 L RDW 14.3 Plt Count 210 MPV 10.2 Immature Gran % (Auto) 0.8 H Neut % (Auto) 68.3 Lymph % (Auto) 22.6 Taylor % (Auto) 6.7 Eos % (Auto) 1.2 Baso % (Auto) 0.4 Lymph # (Auto) 2.4 Taylor # (Auto) 0.7 Eos # (Auto) 0.1 Baso # (Auto) 0.0 Abs Immat Gran (auto) 0.09 H Absolute Neuts (auto) 7.3 Absolute Nucleated RBC 0.000 Nucleated RBC % (auto) 0.0 Anion Gap 11 L Estim Creat Clear Calc 54.6 Estimated GFR 53 POC Glucose 159 H Random Glucose 169 H Lactic Acid Lactic Acid F/U @ 2Hr Calcium 8.7 Total Bilirubin 0.9 Direct Bilirubin 0.4 AST 48 H ALT 36 H Alkaline Phosphatase 47 Total Protein 6.9 Albumin 3.3 L Lipase Urine Color Urine Appearance Urine pH Ur Specific [place] Urine Protein Urine Glucose (UA) Urine Ketones Urine Blood Urine Nitrite Ur Leukocyte Esterase Urine RBC Urine WBC Ur Squamous Epith Cells Amorphous Sediment Urine Bacteria COVID-19 ([facility]) COVID-19 Clin Com Microbiology Microbiology Results: Microbiology 04/05/21 18:27 Urine Culture - Preliminary Urine clean catch - Urine alonso top No growth to date. Assessment and Plan (1) Staghorn calculus: Status: Acute (2) Lactic acidosis: Status: Acute Plan 76-year-old female with extensive past medical history presents to the hospital? with complaints of abdominal pain found to have UTI as well as staghorn calculus 1.? pyelonephritis/UTI -? has CVA tenderness, for cm staghorn calculi in the right kidney -? will treat with IV antibiotics, IV fluids -? urology consulted -? follow cultures 2.? abdominal pain - ? has significant tenderness in the right upper quadrant -? abdominal CT showed? cholelithiasis with no cholecystitis but Abnormal sigmoid colon. -? patient is on antibiotics for possible diverticulitis consult GI 3.? lactic acidosis -? likely secondary to above -? resolved with IV fluids DVT ppx: lovenox? Quality Stroke Does the patient have a stroke diagnosis?: No VTE Prior VTE?: No VTE Risk Level:: Medical - moderate - high VTE Device Contraindication: Treatment Not Indicated VTE Drug Contraindication: N/A - Med Ordered
[2021-04-06 13:06] LABS: Glucose, Whole Blood 145 mg/dL (60-115)
[2021-04-06 18:04] LABS: Glucose, Whole Blood 188 mg/dL (60-115)
[2021-04-06] MEDS: metroNIDAZOLE 500 MG TABLET PO (18:14)
[2021-04-06 21:05] LABS: Glucose, Whole Blood 178 mg/dL (60-115)
[2021-04-06] MEDS: cefTRIAXone sodium 1 GM in 0.9 % Sodium Chloride 50 ML IV (21:21)
[2021-04-07] MEDS: oxyCODONE HCl Immed Release 5 MG TABLET PO ×4 (00:34→20:27)
[2021-04-07 03:38] VITALS: BP 159/68; PULSE 86; RESP 17; TEMP 37.1; O2SAT 95
[2021-04-07] MEDS: metroNIDAZOLE 500 MG TABLET PO ×2 (05:47→16:54)
[2021-04-07] MEDS: Levothyroxine Sodium 112 MCG TABLET PO (05:47)
[2021-04-07 07:35] VITALS: BP 142/67; PULSE 74; RESP 18; TEMP 37.4; O2SAT 96
[2021-04-07 07:44] LABS: Glucose, Whole Blood 158 mg/dL (60-115)
--- NOTE | 2021-04-07 07:56 | HO.PM.IMPN ---
Subjective Subjective Date of Service: 04/07/21 Interval History: uti Review of Systems Still has lot of right flank pain, denies any chest pain or shortness breath fever chills Has nausea but no vomiting Physical Exam Vital Signs: Vital Signs: Last Vital Signs Temp 99.4 F 04/07/21 07:35 Pulse 74 04/07/21 07:35 Resp 18 04/07/21 07:35 BP 142/67 H 04/07/21 07:35 Pulse Ox 96 04/07/21 07:35 BMI result Body Mass Index 43.4 Appearance: Alert.? Oriented X3.? not in distress.? Eyes: Pupils equal, round and reactive to light.? Sclera nonicteric.? ENT: Pharynx normal.? Moist mucous membranes. cvs: rrr, [id number] , no murmur res: clear to auscultation ,no rhonchii or wheezing abd: no rebound or guarding ,nt, bs present. : cva tenderness /flank pain right side. ext pulses present , no cyanosis . neuro: axo3 , nonfocal. Objective Data Active Medications Acetaminophen (Acetaminophen 325 Mg Tablet) 650 mg PO Q6H PRN PRN Reason: Pain, Mild (Pain Scale 1-3) Amlodipine Besylate (Amlodipine Besylate 5 Mg Tablet) 5 mg PO DAILY [facility]; Protocol Last Admin: 04/06/21 08:19 Dose: 5 mg Documented by: DIMAS Atorvastatin Calcium (Atorvastatin Calcium 10 Mg Tablet) 10 mg PO DAILY [facility] Last Admin: 04/06/21 08:21 Dose: 10 mg Documented by: DIMAS Dextrose (Dextrose 50 % 25 Gm/50 Ml Syringe) 25 gm IVPUSH Q15M PRN; Protocol PRN Reason: per Hypoglycemia Standing Ord. Furosemide (Furosemide 40 Mg Tablet) 40 mg PO BID@0800,1700 [facility]; Protocol Last Admin: 04/06/21 18:14 Dose: 40 mg Documented by: DIMAS Glucose (Glucose Gel 15 Gm Gel..Gram.) 15 gm PO Q15M PRN; Protocol PRN Reason: per Hypoglycemia Standing Ord. Ceftriaxone Sodium 1 gm/ (Sodium Chloride) 50 mls @ 100 mls/hr IV Q24H [facility] Last Infusion: 04/07/21 00:37 Dose: 0 mls/hr Documented by: REHAN Lactated Ringer's (Lr) 1,000 mls @ 80 mls/hr IVCONT .[id number] [facility] Last Admin: 04/07/21 03:35 Dose: Not Given Documented by: REHAN Non-Admin Reason: IV Running Insulin Human Lispro (Insulin Lispro 100 Unit/Ml 3 Ml Vial) 0 unit SUBCUT QIDACHS [facility]; Protocol Last Admin: 04/06/21 21:20 Dose: 2 unit Documented by: MOISES Levothyroxine Sodium (Levothyroxine Sodium 112 Mcg Tablet) 112 mcg PO DAILY@0630 [facility] Last Admin: 04/07/21 05:47 Dose: 112 mcg Documented by: REHAN Metronidazole (Metronidazole 500 Mg Tablet) 500 mg PO Q12H [facility] Last Admin: 04/07/21 05:47 Dose: 500 mg Documented by: REHAN Ondansetron HCl (Ondansetron Hcl 4 Mg/2 Ml Vial) 4 mg IVPUSH Q8H PRN PRN Reason: Nausea and Vomiting Oxycodone HCl (Oxycodone Hcl Immed Release 5 Mg Tablet) 5 mg PO Q6H PRN PRN Reason: Pain, Severe (Pain Scale 7-10) Last Admin: 04/07/21 06:29 Dose: 5 mg Documented by: REHAN Sodium Chloride (0.9 % Sodium Chloride Flush 3 Ml Syringe) 3 ml IVFLUSH QSHIFT [facility] Last Admin: 04/07/21 00:38 Dose: Not Given Documented by: REHAN Non-Admin Reason: IV Running Labs CBC & Chem 7: 04/06/21 06:59 04/06/21 06:59 Labs: Laboratory Results - last 24 hr 04/06/21 04/06/21 04/06/21 13:01 17:59 20:53 POC Glucose 145 H 188 H 178 H 04/07/21 07:34 POC Glucose 158 H Microbiology Microbiology Results: Microbiology 04/05/21 20:30 Blood Culture - Preliminary Blood - Venous No growth after 24 hours. 04/05/21 20:23 Blood Culture - Preliminary Blood - Venous No growth after 24 hours. 04/05/21 18:27 Urine Culture - Preliminary Urine clean catch - Urine alonso top No growth to date. Assessment and Plan (1) Abdominal pain: Status: Acute (2) Diverticulitis: Status: Acute (3) Renal stones: Status: Acute (4) UTI (urinary tract infection): Status: Acute Plan 76-year-old female with extensive past medical history presents to the hospital? with complaints of abdominal pain found to have UTI as well as staghorn calculus 1.? pyelonephritis/UTI -? has CVA tenderness, for cm staghorn calculi in the right kidney -? urology consulted-recomended to cotninue iv antbiotics , pain management ,Definitive stone management should be held until urine sterilize to which will take proximally 2-4 weeks. -? follow cultures: urine culture 10 -50 k-? mixed jaret,blood culture @24hrs 2.? abdominal pain - ? has significant tenderness in the right upper quadrant -? abdominal CT showed? cholelithiasis with no cholecystitis but Abnormal sigmoid colon. -? patient is on antibiotics for possible diverticulitis consult [id number] iv antibiotics , pain management , patient will benefit outpatient colonoscopy in 2-3 weeks patient will need Gi follow up. 3.? lactic acidosis -? likely secondary to above -? resolved with IV fluids 4. Morbid obesity: Encouraged to lose weight Quality Stroke Does the patient have a stroke diagnosis?: No VTE Prior VTE?: No VTE Risk Level:: Medical - moderate - high VTE Device Contraindication: Treatment Not Indicated VTE Drug Contraindication: N/A - Med Ordered
[2021-04-07] MEDS: Atorvastatin Calcium 10 MG TABLET PO (08:38)
[2021-04-07] MEDS: Insulin Lispro 100 UNIT/ML 3 ML VIAL SUBCUT ×4 (08:38→20:28)
[2021-04-07] MEDS: amLODIPine Besylate 5 MG TABLET PO (08:39)
[2021-04-07] MEDS: Furosemide 40 MG TABLET PO ×2 (08:39→16:54)
[2021-04-07 11:19] LABS: Glucose, Whole Blood 181 mg/dL (60-115)
[2021-04-07 11:21] VITALS: BP 156/67; PULSE 93; RESP 19; TEMP 36.5; O2SAT 97
[2021-04-07] MEDS: polyethylene glycoL 3350 17 GM POWD.PACK PO (12:59)
--- NOTE | 2021-04-07 13:16 | MHC.CM.PN ---
PER PHYSICIAN ROUNDS, PLAN IS FOR PATIENT TO REMAIN 1-2 MORE DAYS
[2021-04-07] MEDS: Lactated Ringers 1,000 ML 80 ML IVCONT (13:52)
[2021-04-07 15:50] VITALS: BP 139/63; PULSE 86; RESP 19; TEMP 37.1; O2SAT 96
[2021-04-07 16:16] LABS: Glucose, Whole Blood 216 mg/dL (60-115)
[2021-04-07 19:25] VITALS: BP 136/62; PULSE 84; RESP 17; TEMP 38.1; O2SAT 95
[2021-04-07 19:53] LABS: Glucose, Whole Blood 177 mg/dL (60-115)
[2021-04-07] MEDS: Docusate Sodium 100 MG CAPSULE PO (20:27)
[2021-04-07] MEDS: Acetaminophen 325 MG TABLET 650 MG PO (20:27)
[2021-04-07] MEDS: 0.9 % Sodium Chloride Flush 3 ML SYRINGE IVFLUSH (20:29)
[2021-04-07] MEDS: cefTRIAXone sodium 1 GM in 0.9 % Sodium Chloride 50 ML IV (20:30)
[2021-04-07 23:33] VITALS: BP 162/62; PULSE 82; RESP 17; TEMP 37.2; O2SAT 96
[2021-04-08] VITALS (7 sets, daily range): BP systolic 118–156; BP diastolic 54–70; PULSE 72–93; RESP 17–18; TEMP 35.5–36.9; O2SAT 92–98
[2021-04-08] MEDS: Lactated Ringers 1,000 ML 80 ML IVCONT ×2 (02:27→14:38)
[2021-04-08] MEDS: oxyCODONE HCl Immed Release 5 MG TABLET PO ×3 (04:46→18:57)
[2021-04-08] MEDS: metroNIDAZOLE 500 MG TABLET PO ×2 (04:47→16:39)
[2021-04-08] MEDS: Levothyroxine Sodium 112 MCG TABLET PO (04:47)
[2021-04-08 06:38] LABS: Anion Gap 12 (12-20); Blood Urea Nitrogen 11 mg/dL (9-16); Calcium 8.4 mg/dL (8.4-10.2); Carbon Dioxide 27 mmol/L (22-29); Chloride 103 mmol/L (96-108); Creatinine Clr Calc Pharmacy 62.6; Estimated Glomerular Filt Rate > 60; Glucose Random 149 mg/dL (60-115); Potassium 3.6 mmol/L (3.3-5.1); Sodium 138 mmol/L (135-145)
[2021-04-08 07:11] LABS: Glucose, Whole Blood 140 mg/dL (60-115)
[2021-04-08] MEDS: amLODIPine Besylate 5 MG TABLET PO (07:57)
[2021-04-08] MEDS: Furosemide 40 MG TABLET PO ×2 (07:57→16:39)
[2021-04-08] MEDS: polyethylene glycoL 3350 17 GM POWD.PACK PO (07:58)
[2021-04-08] MEDS: Atorvastatin Calcium 10 MG TABLET PO (07:58)
[2021-04-08 11:23] LABS: Glucose, Whole Blood 214 mg/dL (60-115)
--- NOTE | 2021-04-08 11:29 | MHC.CM.PN ---
PLAN IS FOR PO ANTIBIOTICS AND DC TO HOME. SIGNIFICANT OTHER WILL TRANSPORT. IMM 04/07 COMPLETED
[2021-04-08] MEDS: Insulin Lispro 100 UNIT/ML 3 ML VIAL SUBCUT ×3 (11:37→20:08)
--- NOTE | 2021-04-08 11:53 | P.PNIM_ITS ---
Subjective Subjective Date of Service: 04/08/21 Interval History: f/u on pyelonephritis, colitis, abdominal pain is better Review of Systems fever last night abdominal pain Physical Exam Vital Signs: Vital Signs: Last Vital Signs Temp 96 F L 04/08/21 10:58 Pulse 86 04/08/21 10:58 Resp 18 04/08/21 10:58 BP 134/54 L 04/08/21 10:58 Pulse Ox 96 04/08/21 10:58 BMI result Body Mass Index 43.4 Objective Data Active Medications Acetaminophen (Acetaminophen 325 Mg Tablet) 650 mg PO Q6H PRN PRN Reason: Pain, Mild (Pain Scale 1-3) Last Admin: 04/07/21 20:27 Dose: 650 mg Documented by: JUANITO Amlodipine Besylate (Amlodipine Besylate 5 Mg Tablet) 5 mg PO DAILY [facility]; Protocol Last Admin: 04/08/21 07:57 Dose: 5 mg Documented by: UNA Atorvastatin Calcium (Atorvastatin Calcium 10 Mg Tablet) 10 mg PO DAILY [facility] Last Admin: 04/08/21 07:58 Dose: 10 mg Documented by: UNA Dextrose (Dextrose 50 % 25 Gm/50 Ml Syringe) 25 gm IVPUSH Q15M PRN; Protocol PRN Reason: per Hypoglycemia Standing Ord. Docusate Sodium (Docusate Sodium 100 Mg Capsule) 100 mg PO BEDTIME [facility] Last Admin: 04/07/21 20:27 Dose: 100 mg Documented by: JUANITO Furosemide (Furosemide 40 Mg Tablet) 40 mg PO BID@0800,1700 [facility]; Protocol Last Admin: 04/08/21 07:57 Dose: 40 mg Documented by: UNA Glucose (Glucose Gel 15 Gm Gel..Gram.) 15 gm PO Q15M PRN; Protocol PRN Reason: per Hypoglycemia Standing Ord. Ceftriaxone Sodium 1 gm/ (Sodium Chloride) 50 mls @ 100 mls/hr IV Q24H [facility] Last Infusion: 04/07/21 22:25 Dose: 0 mls/hr Documented by: JUANITO Lactated Ringer's (Lr) 1,000 mls @ 80 mls/hr IVCONT .[id number] [facility] Last Admin: 04/08/21 02:27 Dose: 80 mls/hr Documented by: JUANITO Insulin Human Lispro (Insulin Lispro 100 Unit/Ml 3 Ml Vial) 0 unit SUBCUT QIDACHS [facility]; Protocol Last Admin: 04/08/21 11:37 Dose: 4 unit Documented by: UNA Levothyroxine Sodium (Levothyroxine Sodium 112 Mcg Tablet) 112 mcg PO KAYLA LY@0630 [facility] Last Admin: 04/08/21 04:47 Dose: 112 mcg Documented by: JUANITO Metronidazole (Metronidazole 500 Mg Tablet) 500 mg PO Q12H [facility] Last Admin: 04/08/21 04:47 Dose: 500 mg Documented by: JUANITO Morphine Sulfate (Morphine Sulfate 2 Mg/Ml Cartridge) 1 mg IVPUSH Q6H PRN; Protocol PRN Reason: Pain, Mild (Pain Scale 1-3) Ondansetron HCl (Ondansetron Hcl 4 Mg/2 Ml Vial) 4 mg IVPUSH Q8H PRN PRN Reason: Nausea and Vomiting Oxycodone HCl (Oxycodone Hcl Immed Release 5 Mg Tablet) 5 mg PO Q6H PRN PRN Reason: Pain, Severe (Pain Scale 7-10) Last Admin: 04/08/21 11:44 Dose: 5 mg Documented by: UNA Polyethylene Glycol (Polyethylene Glycol 3350 17 Gm Powd.Pack) 17 gm PO DAILY [facility] Last Admin: 04/08/21 07:58 Dose: 17 gm Documented by: UNA Sodium Chloride (0.9 % Sodium Chloride Flush 3 Ml Syringe) 3 ml IVFLUSH QSHIFT [facility] Last Admin: 04/08/21 07:56 Dose: Not Given Documented by: UNA Non-Admin Reason: IV Running Labs CBC & Chem 7: 04/06/21 06:59 04/08/21 06:03 Labs: Laboratory Results - last 24 hr 04/07/21 04/07/21 04/08/21 15:52 19:28 06:03 Anion Gap 12 Estim Creat Clear Calc 62.6 Estimated GFR > 60 POC Glucose 216 H 177 H Random Glucose 149 H Calcium 8.4 04/08/21 04/08/21 06:47 10:58 Anion Gap Estim Creat Clear Calc Estimated GFR POC Glucose 140 H 214 H Random Glucose Calcium Microbiology Microbiology Results: Microbiology 04/05/21 20:30 Blood Culture - Preliminary Blood - Venous No growth after 48 hours. 04/05/21 20:23 Blood Culture - Preliminary Blood - Venous No growth after 48 hours. 04/05/21 18:27 Urine Culture - Final Urine clean catch - Urine alonso top Assessment and Plan (1) Abdominal pain: Status: Acute (2) Diverticulitis: Status: Acute (3) Renal stones: Status: Acute (4) UTI (urinary tract infection): Status: Acute Plan 76-year-old female with extensive past medical history presents to the hospital? with complaints of abdominal pain found to have UTI as well as staghorn calculus 1.? pyelonephritis/UTI -? has CVA tenderness, for cm staghorn calculi in the right kidney -? urology consulted-recomended to cotninue iv antbiotics , pain management ,Definitive stone management should be held until urine sterilize to which will take proximally 2-4 weeks. -?Cultures so far negative 2.? abdominal pain - ? has significant tenderness in the right upper quadrant -? abdominal CT showed? cholelithiasis with no cholecystitis but Abnormal sigmoid colon. -? patient is on antibiotics for possible diverticulitis consult [id number] iv antibiotics , pain management , patient will benefit outpatient colonoscopy in 2-3 weeks patient will need Gi follow up. 3.? lactic acidosis -? likely secondary to above -? resolved with IV fluids 4. Morbid obesity: Encouraged to lose weight, health benefits discussed and aware of weight loss options Transition to PO antibitiotics by tomorrow for discharge Quality Stroke Does the patient have a stroke diagnosis?: No VTE Prior VTE?: No VTE Risk Level:: Medical - moderate - high VTE Device Contraindication: Treatment Not Indicated VTE Drug Contraindication: N/A - Med Ordered
[2021-04-08] MEDS: 0.9 % Sodium Chloride Flush 3 ML SYRINGE IVFLUSH (15:15)
[2021-04-08 16:13] LABS: Glucose, Whole Blood 179 mg/dL (60-115)
[2021-04-08 19:20] LABS: Glucose, Whole Blood 210 mg/dL (60-115)
[2021-04-08] MEDS: cefTRIAXone sodium 1 GM in 0.9 % Sodium Chloride 50 ML IV (20:07)
[2021-04-09] MEDS: oxyCODONE HCl Immed Release 5 MG TABLET PO ×4 (01:34→22:17)
[2021-04-09 04:00] VITALS: BP 121/58; PULSE 80; RESP 17; TEMP 36.4; O2SAT 95
[2021-04-09] MEDS: Levothyroxine Sodium 112 MCG TABLET PO (05:46)
[2021-04-09] MEDS: metroNIDAZOLE 500 MG TABLET PO ×2 (05:46→16:34)
[2021-04-09 07:34] VITALS: BP 162/67; PULSE 78; RESP 18; TEMP 36.4; O2SAT 96
[2021-04-09 07:37] LABS: Glucose, Whole Blood 147 mg/dL (60-115)
[2021-04-09] MEDS: amLODIPine Besylate 5 MG TABLET PO (08:24)
[2021-04-09] MEDS: Atorvastatin Calcium 10 MG TABLET PO (08:25)
[2021-04-09] MEDS: 0.9 % Sodium Chloride Flush 3 ML SYRINGE IVFLUSH ×3 (08:25→19:55)
[2021-04-09] MEDS: Furosemide 40 MG TABLET PO ×2 (08:25→16:34)
--- NOTE | 2021-04-09 09:25 | P.PNIM_ITS ---
Subjective Subjective Date of Service: 04/09/21 Interval History: f/u on pyelonephritis, colitis, still has some residual pain but better Review of Systems No fever some abdominal discomfort Physical Exam Vital Signs: Vital Signs: Last Vital Signs Temp 97.6 F 04/09/21 07:34 Pulse 78 04/09/21 07:34 Resp 18 04/09/21 07:34 BP 162/67 H 04/09/21 07:34 Pulse Ox 96 04/09/21 07:34 BMI result Body Mass Index 43.4 Const: Other: General: AO X 3, no acute distress Resp: CTA bilateral CVS: S1,S2,RRR GI: +BS, NT, no distention, no tenderness Skin: No rash Neuro: motor grossly intact Psych: appropriate affect Objective Data Active Medications Acetaminophen (Acetaminophen 325 Mg Tablet) 650 mg PO Q6H PRN PRN Reason: Pain, Mild (Pain Scale 1-3) Last Admin: 04/07/21 20:27 Dose: 650 mg Documented by: JUANITO Amlodipine Besylate (Amlodipine Besylate 5 Mg Tablet) 5 mg PO DAILY [facility]; Protocol Last Admin: 04/09/21 08:24 Dose: 5 mg Documented by: UNA Atorvastatin Calcium (Atorvastatin Calcium 10 Mg Tablet) 10 mg PO DAILY [facility] Last Admin: 04/09/21 08:25 Dose: 10 mg Documented by: UNA Dextrose (Dextrose 50 % 25 Gm/50 Ml Syringe) 25 gm IVPUSH Q15M PRN; Protocol PRN Reason: per Hypoglycemia Standing Ord. Docusate Sodium (Docusate Sodium 100 Mg Capsule) 100 mg PO BEDTIME [facility] Last Admin: 04/08/21 18:59 Dose: Not Given Documented by: RUBIO Non-Admin Reason: Patient Refused Furosemide (Furosemide 40 Mg Tablet) 40 mg PO BID@0800,1700 [facility]; Protocol Last Admin: 04/09/21 08:25 Dose: 40 mg Documented by: UNA Glucose (Glucose Gel 15 Gm Gel..Gram.) 15 gm PO Q15M PRN; Protocol PRN Reason: per Hypoglycemia Standing Ord. Ceftriaxone Sodium 1 gm/ (Sodium Chloride) 50 mls @ 100 mls/hr IV Q24H [facility] Last Infusion: 04/08/21 20:49 Dose: 0 mls/hr Documented by: RUBIO Insulin Human Lispro (Insulin Lispro 100 Unit/Ml 3 Ml Vial) 0 unit SUBCUT QIDACHS [facility]; Protocol Last Admin: 04/09/21 09:23 Dose: Not Given Documented by: UNA Non-Admin Reason: No Insulin Coverage Levothyroxine Sodium (Levothyroxine Sodium 112 Mcg Tablet) 112 mcg PO DAILY@0630 [facility] Last Admin: 04/09/21 05:46 Dose: 112 mcg Documented by: RUBIO Metronidazole (Metronidazole 500 Mg Tablet) 500 mg PO Q12H [facility] Last Admin: 04/09/21 05:46 Dose: 500 mg Documented by: RUBIO Morphine Sulfate (Morphine Sulfate 2 Mg/Ml Cartridge) 1 mg IVPUSH Q6H PRN; Protocol PRN Reason: Pain, Mild (Pain Scale 1-3) Ondansetron HCl (Ondansetron Hcl 4 Mg/2 Ml Vial) 4 mg IVPUSH Q8H PRN PRN Reason: Nausea and Vomiting Oxycodone HCl (Oxycodone Hcl Immed Release 5 Mg Tablet) 5 mg PO Q6H PRN PRN Reason: Pain, Severe (Pain Scale 7-10) Last Admin: 04/09/21 08:24 Dose: 5 mg Documented by: UNA Polyethylene Glycol (Polyethylene Glycol 3350 17 Gm Powd.Pack) 17 gm PO DAILY [facility] Last Admin: 04/09/21 08:26 Dose: Not Given Documented by: UNA Non-Admin Reason: Patient Refused Sodium Chloride (0.9 % Sodium Chloride Flush 3 Ml Syringe) [address] [facility] [facility] Last Admin: 04/09/21 08:25 Dose: 3 ml Documented by: UNA Labs CBC & Chem 7: 04/06/21 06:59 04/08/21 06:03 Labs: Laboratory Results - last 24 hr 04/08/21 04/08/21 04/08/21 10:58 16:03 18:59 POC Glucose 214 H 179 H 210 H 04/09/21 07:27 POC Glucose 147 H Assessment and Plan (1) Abdominal pain: Status: Acute (2) Diverticulitis: Status: Acute (3) Renal stones: Status: Acute (4) UTI (urinary tract infection): Status: Acute Plan 76-year-old female with extensive past medical history presents to the hospital? with complaints of abdominal pain found to have UTI as well as staghorn calculus 1.? Pyelonephritis/UTI in setting of staghorn calculi -cultures negative -Continue IV Abx -Urology to intervene on stone tomorrow 2.?Colitis--antibiotics as above, Dr. Brown planning colonoscopy 2 to 3 weeks 3.? lactic acidosis -? likely secondary to above -? resolved with IV fluids 4. Morbid obesity: Encouraged to lose weight, health benefits discussed and aware of weight loss options Quality Stroke Does the patient have a stroke diagnosis?: No VTE Prior VTE?: No VTE Risk Level:: Medical - moderate - high VTE Device Contraindication: Treatment Not Indicated VTE Drug Contraindication: N/A - Med Ordered
[2021-04-09 11:49] VITALS: BP 141/52; PULSE 84; RESP 18; TEMP 36.4; O2SAT 95
[2021-04-09 12:00] LABS: Glucose, Whole Blood 204 mg/dL (60-115)
[2021-04-09] MEDS: Insulin Lispro 100 UNIT/ML 3 ML VIAL SUBCUT ×3 (12:15→20:50)
[2021-04-09 15:19] VITALS: BP 145/78; PULSE 91; RESP 18; TEMP 36.9; O2SAT 96
[2021-04-09 15:43] LABS: Glucose, Whole Blood 224 mg/dL (60-115)
--- NOTE | 2021-04-09 17:50 | P.PNUR_ITS ---
Subjective Subjective Date of Service: 04/09/21 Interval history: Seen Discussed procedure for tomorrow Right sided ureteroscopy Knows she might need multiple procedures Has abx coverage per prior culture results Physical Exam Vital Signs: Vital Signs: Last Vital Signs Temp 98.4 F 04/09/21 15:19 Pulse 91 04/09/21 15:19 Resp 18 04/09/21 15:19 BP 145/78 H 04/09/21 15:19 Pulse Ox 96 04/09/21 15:19 BMI result Body Mass Index 43.4 Const: General: cooperative, healthy appearing, comfortable and no acute distress Orientation/consciousness: patient oriented x3 HENMT: Face and sinus: Yes normal facial exam Mouth: moist mucous membranes Neck: Neck: Yes normal visual inspection, Yes full ROM and Yes trachea midline Chest: Chest palpation & inspection: normal inspection of the chest Resp: Effort & Inspection: normal respiratory effort, able to speak in complete sentences and no respiratory distress GI: Inspection: Yes normal to inspection Back/Spine/Pelvis: Cervical Spine: normal cervical lordosis Thoracic/Lumbar Spine: thoracic and lumbar spine normal to inspection Skin: General skin exam: no rashes or lesions noted Neuro: General: patient oriented x3, tone normal and moves all extremities Extrem: General: Yes normal to inspection and Yes capillary refill normal Urology Results Labs CBC & Chem 7: 04/06/21 06:59 04/08/21 06:03 Labs: Laboratory Results - last 24 hr 04/08/21 04/09/21 04/09/21 18:59 07:27 11:48 POC Glucose 210 H 147 H 204 H 04/09/21 15:22 POC Glucose 224 H Progress Note: A&P Assessment and plan (1) Staghorn calculus: Status: Acute Plan Ureteroscopy We discussed the nature of the decision and reasonable alternatives for per forming the above surgery. Interventions include chemical dissolution, ESWL, ureteroscopy with laser lithotripsy and stent placement, PCNL. Options such as medical therapy were discussed. The relative uncertainties and benefits related to each alternate procedure were adequately discussed. General surgical risks including, but not limited to, pain, bleeding, infection, myocardial infarction, pulmonary embolus, deep vein thrombosis and cerebrovascular accident which may result in further hospital ization were discussed. Full disclosure of the procedure as well as all major risks, benefits and complications were discussed including but not limited to damage to the urethra, bladder and kidney infection, damage to the ureter, stent migration or malposition, scarring to the renal pelvis, remnant stone fragments, subsequent stone passage with need for secondary procedures. The overall secondary procedure rate is approximately 10-15%. The success rate of the procedure was discussed. Success of the procedure in the short-term does not necessarily guarantee that long-term success will be ma intained. Suitable follow up will need to be maintained. The patient showed understanding of discussion and wishes to proceed with - cystoscopy, retrograde, ureteroscopy, possible lithotripsy/stone basketing and stent on the right side Fall Risk Details Current Medications: Current Medications Acetaminophen (Acetaminophen 325 Mg Tablet) 650 mg PO Q6H PRN PRN Reason: Pain, Mild (Pain Scale 1-3) Last Admin: 04/07/21 20:27 Dose: 650 mg Documented by: Amlodipine Besylate (Amlodipine Besylate 5 Mg Tablet) 5 mg PO DAILY [facility]; Protocol Last Admin: 04/09/21 08:24 Dose: 5 mg Documented by: Atorvastatin Calcium (Atorvastatin Calcium 10 Mg Tablet) 10 mg PO DAILY [facility] Last Admin: 04/09/21 08:25 Dose: 10 mg Documented by: Dextrose (Dextrose 50 % 25 Gm/50 Ml Syringe) 25 gm IVPUSH Q15M PRN; Protocol PRN Reason: per Hypoglycemia Standing Ord. Docusate Sodium (Docusate Sodium 100 Mg Capsule) 100 mg PO BEDTIME [facility] Last Admin: 04/08/21 18:59 Dose: Not Given Documented by: Furosemide (Furosemide 40 Mg Tablet) 40 mg PO BID@0800,1700 [facility]; Protocol Last Admin: 04/09/21 16:34 Dose: 40 mg Documented by: Glucose (Glucose Gel 15 Gm Gel..Gram.) 15 gm PO Q15M PRN; Protocol PRN Reason: per Hypoglycemia Standing Ord. Ceftriaxone Sodium 1 gm/ (Sodium Chloride) 50 mls @ 100 mls/hr IV Q24H [facility] Last Infusion: 04/08/21 20:49 Dose: Infused Documented by: Insulin Human Lispro (Insulin Lispro 100 Unit/Ml 3 Ml Vial) 0 unit SUBCUT QIDACHS [facility]; Protocol Last Admin: 04/09/21 16:35 Dose: 4 unit Documented by: Levothyroxine Sodium (Levothyroxine Sodium 112 Mcg Tablet) 112 mcg PO D AILY@0630 [facility] Last Admin: 04/09/21 05:46 Dose: 112 mcg Documented by: Metronidazole (Metronidazole 500 Mg Tablet) 500 mg PO Q12H [facility] Last Admin: 04/09/21 16:34 Dose: 500 mg Documented by: Morphine Sulfate (Morphine Sulfate 2 Mg/Ml Cartridge) 1 mg IVPUSH Q6H PRN; Protocol PRN Reason: Pain, Mild (Pain Scale 1-3) Ondansetron HCl (Ondansetron Hcl 4 Mg/2 Ml Vial) 4 mg IVPUSH Q8H PRN PRN Reason: Nausea and Vomiting Oxycodone HCl (Oxycodone Hcl Immed Release 5 Mg Tablet) 5 mg PO Q6H PRN PRN Reason: Pain, Severe (Pain Scale 7-10) Last Admin: 04/09/21 15:15 Dose: 5 mg Documented by: Polyethylene Glycol (Polyethylene Glycol 3350 17 Gm Powd.Pack) 17 gm PO DAILY [facility] Last Admin: 04/09/21 08:26 Dose: Not Given Documented by: Sodium Chloride (0.9 % Sodium Chloride Flush 3 Ml Syringe) 3 ml IVFLUSH QSHIFT [facility] Last Admin: 04/09/21 15:15 Dose: 3 ml Documented by: Time Spent With Patient Time: Total time spent is greater than 50% in coordination of care (as documented) at patient's floor/unit and/or counseling patient: Time with patient: less than 15 minutes Progress Note: Quality Stroke Does the patient have a stroke diagnosis?: No
[2021-04-09 19:42] VITALS: BP 124/60; PULSE 83; RESP 18; TEMP 37.1; O2SAT 95
[2021-04-09 19:48] LABS: Glucose, Whole Blood 216 mg/dL (60-115)
[2021-04-09] MEDS: cefTRIAXone sodium 1 GM in 0.9 % Sodium Chloride 50 ML IV (19:52)
[2021-04-10] VITALS (14 sets, daily range): BP systolic 134–151; BP diastolic 51–87; PULSE 71–95; RESP 14–19; TEMP 36–37.6; O2SAT 92–99
[2021-04-10] MEDS: oxyCODONE HCl Immed Release 5 MG TABLET PO ×3 (04:08→20:38)
[2021-04-10] MEDS: Levothyroxine Sodium 112 MCG TABLET PO (05:17)
[2021-04-10] MEDS: metroNIDAZOLE 500 MG TABLET PO ×2 (05:17→19:10)
[2021-04-10 07:10] LABS: Glucose, Whole Blood 172 mg/dL (60-115)
[2021-04-10] MEDS: Atorvastatin Calcium 10 MG TABLET PO (07:55)
[2021-04-10] MEDS: Furosemide 40 MG TABLET PO ×2 (07:56→19:11)
[2021-04-10] MEDS: amLODIPine Besylate 5 MG TABLET PO (07:58)
[2021-04-10] MEDS: 0.9 % Sodium Chloride Flush 3 ML SYRINGE IVFLUSH ×3 (08:01→20:32)
--- NOTE | 2021-04-10 09:50 | P.PNIM_ITS ---
Subjective Subjective Date of Service: 04/10/21 Interval History: f/u on pyelonephritis, colitis, still has some residual pain, NPO for surgery today, planned for 430 pm Review of Systems No fever some abdominal discomfort Physical Exam Vital Signs: Vital Signs: Last Vital Signs Temp 96.8 F 04/10/21 06:45 Pulse 71 04/10/21 06:45 Resp 18 04/10/21 06:45 BP 134/63 04/10/21 06:45 Pulse Ox 98 04/10/21 06:45 BMI result Body Mass Index 43.4 Const: Other: General: AO X 3, no acute distress Resp: CTA bilateral CVS: S1,S2,RRR GI: +BS, NT, no distention, no tenderness Skin: No rash Neuro: motor grossly intact Psych: appropriate affect Objective Data Active Medications Acetaminophen (Acetaminophen 325 Mg Tablet) 650 mg PO Q6H PRN PRN Reason: Pain, Mild (Pain Scale 1-3) Last Admin: 04/07/21 20:27 Dose: 650 mg Documented by: JUANITO Amlodipine Besylate (Amlodipine Besylate 5 Mg Tablet) 5 mg PO DAILY [facility]; Protocol Last Admin: 04/10/21 07:58 Dose: 5 mg Documented by: DEVANG Atorvastatin Calcium (Atorvastatin Calcium 10 Mg Tablet) 10 mg PO DAILY [facility] Last Admin: 04/10/21 07:55 Dose: 10 mg Documented by: DEVANG Dextrose (Dextrose 50 % 25 Gm/50 Ml Syringe) 25 gm IVPUSH Q15M PRN; Protocol PRN Reason: per Hypoglycemia Standing Ord. Docusate Sodium (Docusate Sodium 100 Mg Capsule) 100 mg PO BEDTIME [facility] Last Admin: 04/09/21 19:55 Dose: Not Given Documented by: JENN Non-Admin Reason: Patient Refused Furosemide (Furosemide 40 Mg Tablet) 40 mg PO BID@0800,1700 [facility]; Protocol Last Admin: 04/10/21 07:56 Dose: 40 mg Documented by: DEVANG Glucose (Glucose Gel 15 Gm Gel..Gram.) 15 gm PO Q15M PRN; Protocol PRN Reason: per Hypoglycemia Standing Ord. Ceftriaxone Sodium 1 gm/ (Sodium Chloride) 50 mls @ 100 mls/hr IV Q24H [facility] Last Infusion: 04/09/21 20:53 Dose: 0 mls/hr Documented by: JENN Insulin Human Lispro (Insulin Lispro 100 Unit/Ml 3 Ml Vial) 0 unit SUBCUT QIDACHS [facility]; Protocol Last Admin: 04/10/21 08:12 Dose: Not Given Documented by: UNA Non-Admin Reason: NPO Levothyroxine Sodium (Levothyroxine Sodium 112 Mcg Tablet) 112 mcg PO DAILY@0630 [facility] Last Admin: 04/10/21 05:17 Dose: 112 mcg Documented by: JENN Metronidazole (Metronidazole 500 Mg Tablet) 500 mg PO Q12H [facility] Last Admin: 04/10/21 05:17 Dose: 500 mg Documented by: JENN Morphine Sulfate (Morphine Sulfate 2 Mg/Ml Cartridge) 1 mg IVPUSH Q6H PRN; Protocol PRN Reason: Pain, Mild (Pain Scale 1-3) Ondansetron HCl (Ondansetron Hcl 4 Mg/2 Ml Vial) 4 mg IVPUSH Q8H PRN PRN Reason: Nausea and Vomiting Oxycodone HCl (Oxycodone Hcl Immed Release 5 Mg Tablet) 5 mg PO Q6H PRN PRN Reason: Pain, Severe (Pain Scale 7-10) Last Admin: 04/10/21 04:08 Dose: 5 mg Documented by: JENN Polyethylene Glycol (Polyethylene Glycol 3350 17 Gm Powd.Pack) 17 gm PO DAILY [facility] Last Admin: 04/10/21 08:12 Dose: Not Given Documented by: UNA Non-Admin Reason: Patient Refused Sodium Chloride (0.9 % Sodium Chloride Flush 3 Ml Syringe) 3 ml IVFLUSH QSHIFT [facility] Last Admin: 04/10/21 08:01 Dose: 3 ml Documented by: DEVANG Labs CBC & Chem 7: 04/06/21 06:59 04/08/21 06:03 Labs: Laboratory Results - last 24 hr 04/09/21 04/09/21 04/09/21 11:48 15:22 19:18 POC Glucose 204 H 224 H 216 H 04/10/21 06:45 POC Glucose 172 H Assessment and Plan (1) Abdominal pain: Status: Acute (2) Diverticulitis: Status: Acute (3) Renal stones: Status: Acute (4) UTI (urinary tract infection): Status: Acute Plan 76-year-old female with extensive past medical history presents to the hospital? with complaints of abdominal pain found to have UTI as well as staghorn calculus 1.? Pyelonephritis/UTI in setting of staghorn calculi -cultures negative -Continue IV Abx -Urology to intervene on stone today : - cystoscopy, retrograde, ureteroscopy, possible lithotripsy/stone basketing and stent on the right side 2.?Colitis--antibiotics as above, Dr. Brown planning colonoscopy 2 to 3 weeks 3.? lactic acidosis -? likely secondary to above -? resolved with IV fluids 4. Morbid obesity: Encouraged to lose weight, health benefits discussed and aware of weight loss options Quality Stroke Does the patient have a stroke diagnosis?: No VTE Prior VTE?: No VTE Risk Level:: Medical - moderate - high VTE Device Contraindication: Treatment Not Indicated VTE Drug Contraindication: N/A - Med Ordered
[2021-04-10 10:52] LABS: Hematocrit 41.1 % (37.0-47.0); Hemoglobin 12.9 g/dl (12.0-16.0); Mean Corpuscular HGB Conc 31.4 g/dl (31.0-35.0); Mean Corpuscular Hemoglobin 29.7 pg (27.0-33.0); Mean Corpuscular Volume 94.5 fL (80.0-98.0); Mean Platelet Volume 10.7 fL (9.4-12.3); Platelet Count 249 X10*3/uL (160-400); Red Blood Count 4.35 X10*6/uL (4.20-5.50); Red Cell Distribution Width 14.3 % (11.0-16.0); White Blood Count 12.5 X10*3/uL (4.8-10.8)
[2021-04-10 11:23] LABS: Glucose, Whole Blood 214 mg/dL (60-115)
[2021-04-10 11:58] LABS: Anion Gap 12 (12-20); Blood Urea Nitrogen 14 mg/dL (9-16); Carbon Dioxide 32 mmol/L (22-29); Chloride 98 mmol/L (96-108); Creatinine Clr Calc Pharmacy 56.8; Estimated Glomerular Filt Rate 55; Glucose Random 206 mg/dL (60-115); Sodium 138 mmol/L (135-145)
--- NOTE | 2021-04-10 15:07 | MHC.CM.PN ---
NURSE WEBMETHODS CONSULTANT NOTE ELECTRONIC MEDICAL RECORD REVIEWED ALONG WITH CASE DISCUSSED ON MULTIPKLE DISCIPLIANRY ROUNDS , PER DOCUMENTATION PATIENT WAS ADMITTED WITH ABDOMINAL PAIN, DIVERTICULITIS RENAL STONE AND UTI, SHE IS SCHEDULED FOR A UROLOGIC PROCEDURE TODAY WITH DR QUINONES SHE CONTONUES TO BE ON IV ABX . SHE IS ANXIOUS BOUT THE PROCEDURE (SHE VOICED COVERN SHE IN THE PAST HAD THIS AND STARTED TO HAVE EMESISI AFTER COMING OUT OF ANESTHESIA AND ASPITRATED AND [facility]NA WITH [facility]) SHE DID REPORT SHE DID DISCUSS THIS WITH DR QUINONES AND STAFF NURSE AND ENCOU[place]HE HER TO TALK WITH THE ANESTHESOLOGIST WHENBEFORE SHE HAS HER PROCEUDRE , SHE THANK ME FOR LISTENING , DISCHARGE PLAN PENDING PROCDURE , SHE NOW ANTICIPATES N=HOEM NO SERVICES (SHE IS INDEPENDENT IN [facility] AND MOBILITY HER S/O STAYS WITH HER AND WILL PROVIDE TRANSPORTAITON AT D/C PCP DR MATTHEW LEMA
[2021-04-10 15:55] LABS: Glucose, Whole Blood 165 mg/dL (60-115)
--- NOTE | 2021-04-10 16:28 | HO.ANESPROP2 ---
[facility] Active Problems Active Problems: All Active Problems (Updated 04/06/21 @ 18:52 by Mike Brown MD) Cholelithiasis (Acute) Staghorn calculus (Acute) Lactic acidosis (Acute) Abdominal pain (Acute) Diverticulitis (Acute) Renal calculus, bilateral (Acute) Renal stones (Acute) Renal calyceal dilation determined by ultrasound (Acute) UTI (urinary tract infection) (Acute) Past Medical History Medical History Anxiety Diabetes mellitus, type II Ganglion cyst HTN (hypertension) Hypercholesterolemia Hypothyroidism Low back pain OA (osteoarthritis) Obstructive airway disease Perirectal abscess Plantar fasciitis Primary osteoarthritis of right knee Renal calculus, bilateral Renal calyceal dilation determined by ultrasound Renal stones Retained ureteral stent Sciatica Staghorn calculus UTI (urinary tract infection) Surgical History Surgical History History of surgery History of Problems with Anesthesia: Yes (Aspiration) Social History Social History Household Members: Significant Other Housing: House Do you presently have visiting nurse or other home services: No Alcohol intake: never Patient Tobacco Use Status: Former Tobacco user Advance Directives Date on File: 04/06/21 service: No Current occupational status: disabled Meds Allergies Allergy/AdvReac Type Severity Reaction Status Date / Time chlorpheniramine Allergy Severe HALLUCINATI Verified 04/05/21 17:57 [From TUSSIONEX] ONS escitalopram [ESCITALOPRAM] Allergy Severe DISSOCIATIVE Verified 04/05/21 17:57 REACTION fluoxetine [FLUOXETINE] Allergy Severe DISSOCIATIVE Verified 04/05/21 17:57 REACTION hydrocodone [From TUSSIONEX] Allergy Severe HALLUCINATI Verified 04/05/21 17:57 ONS ibuprofen [IBUPROFEN] Allergy Severe THROAT Verified 04/05/21 17:57 SWELLING Sulfa (Sulfonamide Allergy Severe DYSPNEA Verified 04/05/21 17:57 Antibiotics) [SULFA (SULFONAMIDE ANTIBIOTICS)] clarithromycin [From BIAXIN] Allergy Intermediate ABD.PAIN Verified 04/05/21 17:57 erythromycin base Allergy Intermediate RASH Verified 04/05/21 17:57 [ERYTHROMYCIN BASE] Penicillins [PENICILLINS] Allergy Intermediate RASH Verified 04/05/21 17:57 tetracycline [TETRACYCLINE] Allergy Intermediate DIARRHEA Verified 04/05/21 17:57 ciprofloxacin [From CIPRO] Allergy Unknown ANAPHYLAXIS Verified 04/05/21 17:57 codeine [CODEINE] Allergy Unknown TINNITIS Verified 04/05/21 17:57 duloxetine [DULOXETINE] Allergy Unknown FACIAL Verified 04/05/21 17:57 NUMBNESS guaifenesin Allergy Unknown Unknown Verified 04/05/21 17:57 levofloxacin [From Levaquin] Allergy Unknown Unknown Verified 04/10/21 16:10 penicillin V Allergy Unknown Unknown Verified 04/05/21 17:57 pregabalin Allergy Unknown Unknown Verified 04/05/21 17:57 biaxin Allergy Unknown abdominal Uncoded 01/19/21 12:59 pain cipro Allergy Unknown angioedema Uncoded 01/19/21 12:59 Erythromycin Allergy Unknown Unknown Uncoded 01/19/21 12:59 erythromycin Allergy Unknown rash Uncoded 01/19/21 12:59 fluoxetine Allergy Unknown hallucinations, Uncoded 01/19/21 12:59 fogginess , throat tightening ibuprofen Allergy Unknown throat Uncoded 01/19/21 12:59 swelling PCN Allergy Unknown rash Uncoded 01/19/21 12:59 sulfa Allergy Unknown dyspnea Uncoded 01/19/21 12:59 tetracycline Allergy Unknown diarrhea Uncoded 01/19/21 12:59 tussionex Allergy Unknown hallucinati Uncoded 01/19/21 12:59 ons Active Medications: Current Medications Acetaminophen (Acetaminophen 325 Mg Tablet) 650 mg PO Q6H PRN PRN Reason: Pain, Mild (Pain Scale 1-3) Last Admin: 04/07/21 20:27 Dose: 650 mg Documented by: Amlodipine Besylate (Amlodipine Besylate 5 Mg Tablet) 5 mg PO DAILY [facility]; Protocol Last Admin: 04/10/21 07:58 Dose: 5 mg Documented by: Atorvastatin Calcium (Atorvastatin Calcium 10 Mg Tablet) 10 mg PO DAILY [facility] Last Admin: 04/10/21 07:55 Dose: 10 mg Documented by: Dextrose (Dextrose 50 % 25 Gm/50 Ml Vial) 25 gm IVPUSH Q15M PRN; Protocol PRN Reason: per Hypoglycemia Standing Ord. Docusate Sodium (Docusate Sodium 100 Mg Capsule) 100 mg PO BEDTIME [facility] Last Admin: 04/09/21 19:55 Dose: Not Given Documented by: Furosemide (Furosemide 40 Mg Tablet) 40 mg PO BID@0800,1700 [facility]; Protocol Last Admin: 04/10/21 07:56 Dose: 40 mg Documented by: Glucose (Glucose Gel 15 Gm Gel..Gram.) 15 gm PO Q15M PRN; Protocol PRN Reason: per Hypoglycemia Standing Ord. Ceftriaxone Sodium 1 gm/ (Sodium Chloride) 50 mls @ 100 mls/hr IV Q24H [facility] Last Infusion: 04/09/21 20:53 Dose: Infused Documented by: Ceftriaxone Sodium 1 gm/ (Sodium Chloride) 50 mls @ 100 mls/hr IV ONCE ONE Stop: 04/10/21 16:59 Insulin Human Lispro (Insulin Lispro 100 Unit/Ml 3 Ml Vial) 0 unit SUBCUT QIDACHS [facility]; Protocol Last Admin: 04/10/21 11:36 Dose: Not Given Documented by: Levothyroxine Sodium (Levothyroxine Sodium 112 Mcg Tablet) 112 mcg PO DAILY@0630 [facility] Last Admin: 04/10/21 05:17 Dose: 112 mcg Documented by: Metronidazole (Metronidazole 500 Mg Tablet) 500 mg PO Q12H [facility] Last Admin: 04/10/21 05:17 Dose: 500 mg Documented by: Morphine Sulfate (Morphine Sulfate 2 Mg/Ml Cartridge) 1 mg IVPUSH Q6H PRN; Protocol PRN Reason: Pain, Mild (Pain Scale 1-3) Ondansetron HCl (Ondansetron Hcl 4 Mg/2 Ml Vial) 4 mg IVPUSH Q8H PRN PRN Reason: Nausea and Vomiting Oxycodone HCl (Oxycodone Hcl Immed Release 5 Mg Tablet) 5 mg PO Q6H PRN PRN Reason: Pain, Severe (Pain Scale 7-10) Last Admin: 04/10/21 10:03 Dose: 5 mg Documented by: Polyethylene Glycol (Polyethylene Glycol 3350 17 Gm Powd.Pack) 17 gm PO DAILY [facility] Last Admin: 04/10/21 08:12 Dose: Not Given Documented by: Sodium Chloride (0.9 % Sodium Chloride Flush 3 Ml Syringe) 3 ml IVFLUSH QSHIFT [facility] Last Admin: 04/10/21 14:58 Dose: 3 ml Documented by: Home Medications Medication Instructions Recorded Confirmed Last Taken Type furosemide 40 mg tablet 40 mg PO BID 08/28/20 04/06/21 04/05/21 History levothyroxine 112 mcg tablet 112 mcg PO DAILY 08/28/20 04/06/21 04/05/21 History lisinopril 10 mg tablet 10 mg PO DAILY 08/28/20 04/06/21 04/05/21 History atorvastatin 10 mg tablet 1 tab PO DAILY 04/05/21 04/06/21 04/05/21 History acetaminophen 500 mg tablet 1,000 mg PO Q6H PRN 04/06/21 04/06/21 04/05/21 History metformin 500 mg tablet,extended 1 tab PO QPM 04/06/21 04/06/21 04/05/21 History release 24 hr pyridoxine (vitamin B6) 100 mg 2 tab PO DAILY 04/06/21 04/06/21 04/05/21 History tablet Exam Exam Date and Time: April 10, [id number] Height,Weight and Vital Signs: Height 5 ft 1.77 in Weight 107.1 kg Last Vital Signs Temp 99.7 F 04/10/21 15:40 Pulse 85 04/10/21 15:40 Resp 18 04/10/21 15:40 BP 147/55 H 04/10/21 15:40 Pulse Ox 97 04/10/21 15:40 Pertinent Lab Results Pertinent Lab Results: Laboratory Tests 04/05/21 04/05/21 04/05/21 18:16 20:23 20:23 WBC RBC Hgb Hct MCV MCH MCHC RDW Plt Count MPV Immature Gran % (Auto) Neut % (Auto) Lymph % (Auto) [place] % (Auto) Eos % (Auto) Baso % (Auto) Lymph # (Auto) [place] # (Auto) Eos # (Auto) Baso # (Auto) Abs Immat Gran (auto) Absolute Neuts (auto) Absolute Nucleated RBC Nucleated RBC % (auto) Sodium Potassium Chloride Carbon Dioxide Anion Gap BUN Creatinine Estim Creat Clear Calc Estimated GFR POC Glucose Random Glucose Lactic Acid 2.1 H* Lactic Acid F/U @ 2Hr Calcium Total Bilirubin Direct Bilirubin AST ALT Alkaline Phosphatase Troponin I High Sens 5.9 Total Protein Albumin Lipase Urine Color YELLOW Urine Appearance CLOUDY Urine pH 6.0 Ur Specific [place] 1.010 Urine Protein 1+ H Urine Glucose (UA) NEG Urine Ketones NEG Urine Blood 2+ H Urine Nitrite NEG Ur Leukocyte Esterase 3+ H Urine RBC 10-14 H Urine WBC TNTC H Ur Squamous Epith Cells 1+ Amorphous Sediment TRACE Urine Bacteria NONE COVID-19 ([facility]) COVID-19 Clin Com 04/05/21 04/05/21 04/05/21 21:15 21:15 22:48 WBC 17.2 H RBC 4.25 Hgb 12.7 Hct 39.4 MCV 92.7 MCH 29.9 MCHC 32.2 RDW 14.2 Plt Count 215 MPV 10.3 Immature Gran % (Auto) 0.7 H Neut % (Auto) 79.1 H Lymph % (Auto) 14.7 L [place] % (Auto) 5.0 Eos % (Auto) 0.3 Baso % (Auto) 0.2 Lymph # (Auto) 2.5 [place] # (Auto) 0.9 Eos # (Auto) 0.1 Baso # (Auto) 0.0 Abs Immat Gran (auto) 0.12 H Absolute Neuts (auto) 13.6 H Absolute Nucleated RBC 0.000 Nucleated RBC % (auto) 0.0 Sodium 138 Potassium 4.0 Chloride 100 Carbon Dioxide 26 Anion Gap 16 BUN 14 Creatinine 1.01 Estim Creat Clear Calc 55.2 Estimated GFR 54 POC Glucose Random Glucose 154 H Lactic Acid Lactic Acid F/U @ 2Hr 1.9 Calcium 9.0 Total Bilirubin 0.7 Direct Bilirubin 0.2 AST 71 H ALT 41 H Alkaline Phosphatase 53 Troponin I High Sens Total Protein 7.5 Albumin 3.5 Lipase 10 Urine Color Urine Appearance Urine pH Ur Specific [place] Urine Protein Urine Glucose (UA) Urine Ketones Urine Blood Urine Nitrite Ur Leukocyte Esterase Urine RBC Urine WBC Ur Squamous Epith Cells Amorphous Sediment Urine Bacteria COVID-19 ([facility]) COVID-19 Clin Com 04/05/21 04/06/21 04/06/21 22:51 06:58 06:59 WBC 10.7 RBC 4.04 L Hgb 12.0 Hct 38.9 MCV 96.3 MCH 29.7 MCHC 30.8 L RDW 14.3 Plt Count 210 MPV 10.2 Immature Gran % (Auto) 0.8 H Neut % (Auto) 68.3 Lymph % (Auto) 22.6 [place] % (Auto) 6.7 Eos % (Auto) 1.2 Baso % (Auto) 0.4 Lymph # (Auto) 2.4 [place] # (Auto) 0.7 Eos # (Auto) 0.1 Baso # (Auto) 0.0 Abs Immat Gran (auto) 0.09 H Absolute Neuts (auto) 7.3 Absolute Nucleated RBC 0.000 Nucleated RBC % (auto) 0.0 Sodium Potassium Chloride Carbon Dioxide Anion Gap BUN Creatinine Estim Creat Clear Calc Estimated GFR POC Glucose 159 H Random Glucose Lactic Acid Lactic Acid F/U @ 2Hr Calcium Total Bilirubin Direct Bilirubin AST ALT Alkaline Phosphatase Troponin I High Sens Total Protein Albumin Lipase Urine Color Urine Appearance Urine pH Ur Specific [place] Urine Protein Urine Glucose (UA) Urine Ketones Urine Blood Urine Nitrite Ur Leukocyte Esterase Urine RBC Urine WBC Ur Squamous Epith Cells Amorphous Sediment Urine Bacteria COVID-19 ([facility]) Negative COVID-19 Clin Com See Note 04/06/21 04/06/21 04/06/21 06:59 13:01 17:59 WBC RBC Hgb Hct MCV MCH MCHC RDW Plt Count MPV Immature Gran % (Auto) Neut % (Auto) Lymph % (Auto) [place] % (Auto) Eos % (Auto) Baso % (Auto) Lymph # (Auto) [place] # (Auto) Eos # (Auto) Baso # (Auto) Abs Immat Gran (auto) Absolute Neuts (auto) Absolute Nucleated RBC Nucleated RBC % (auto) Sodium 137 Potassium 4.1 Chloride 103 Carbon Dioxide 27 Anion Gap 11 L BUN 12 Creatinine 1.02 Estim Creat Clear Calc 54.6 Estimated GFR 53 POC Glucose 145 H 188 H Random Glucose 169 H Lactic Acid Lactic Acid F/U @ 2Hr Calcium 8.7 Total Bilirubin 0.9 Direct Bilirubin 0.4 AST 48 H ALT 36 H Alkaline Phosphatase 47 Troponin I High Sens Total Protein 6.9 Albumin 3.3 L Lipase Urine Color Urine Appearance Urine pH Ur Specific [place] Urine Protein Urine Glucose (UA) Urine Ketones Urine Blood Urine Nitrite Ur Leukocyte Esterase Urine RBC Urine WBC Ur Squamous Epith Cells Amorphous Sediment Urine Bacteria COVID-19 ([facility]) COVID-19 Clin Com 04/06/21 04/07/21 04/07/21 20:53 07:34 11:05 WBC RBC Hgb Hct MCV MCH MCHC RDW Plt Count MPV Immature Gran % (Auto) Neut % (Auto) Lymph % (Auto) [place] % (Auto) Eos % (Auto) Baso % (Auto) Lymph # (Auto) [place] # (Auto) Eos # (Auto) Baso # (Auto) Abs Immat Gran (auto) Absolute Neuts (auto) Absolute Nucleated RBC Nucleated RBC % (auto) Sodium Potassium Chloride Carbon Dioxide Anion Gap BUN Creatinine Estim Creat Clear Calc Estimated GFR POC Glucose 178 H 158 H 181 H Random Glucose Lactic Acid Lactic Acid F/U @ 2Hr Calcium Total Bilirubin Direct Bilirubin AST ALT Alkaline Phosphatase Troponin I High Sens Total Protein Albumin Lipase Urine Color Urine Appearance Urine pH Ur Specific [place] Urine Protein Urine Glucose (UA) Urine Ketones Urine Blood Urine Nitrite Ur Leukocyte Esterase Urine RBC Urine WBC Ur Squamous Epith Cells Amorphous Sediment Urine Bacteria COVID-19 ([facility]) COVID-19 Clin Com 04/07/21 04/07/21 04/08/21 15:52 19:28 06:03 WBC RBC Hgb Hct MCV MCH MCHC RDW Plt Count MPV Immature Gran % (Auto) Neut % (Auto) Lymph % (Auto) [place] % (Auto) Eos % (Auto) Baso % (Auto) Lymph # (Auto) [place] # (Auto) Eos # (Auto) Baso # (Auto) Abs Immat Gran (auto) Absolute Neuts (auto) Absolute Nucleated RBC Nucleated RBC % (auto) Sodium 138 Potassium 3.6 Chloride 103 Carbon Dioxide 27 Anion Gap 12 BUN 11 Creatinine 0.89 Estim Creat Clear Calc 62.6 Estimated GFR > 60 POC Glucose 216 H 177 H Random Glucose 149 H Lactic Acid Lactic Acid F/U @ 2Hr Calcium 8.4 Total Bilirubin Direct Bilirubin AST ALT Alkaline Phosphatase Troponin I High Sens Total Protein Albumin Lipase Urine Color Urine Appearance Urine pH Ur Specific [place] Urine Protein Urine Glucose (UA) Urine Ketones Urine Blood Urine Nitrite Ur Leukocyte Esterase Urine RBC Urine WBC Ur Squamous Epith Cells Amorphous Sediment Urine Bacteria COVID-19 ([facility]) COVID-19 Clin Com 04/08/21 04/08/21 04/08/21 06:47 10:58 16:03 WBC RBC Hgb Hct MCV MCH MCHC RDW Plt Count MPV Immature Gran % (Auto) Neut % (Auto) Lymph % (Auto) [place] % (Auto) Eos % (Auto) Baso % (Auto) Lymph # (Auto) [place] # (Auto) Eos # (Auto) Baso # (Auto) Abs Immat Gran (auto) Absolute Neuts (auto) Absolute Nucleated RBC Nucleated RBC % (auto) Sodium Potassium Chloride Carbon Dioxide Anion Gap BUN Creatinine Estim Creat Clear Calc Estimated GFR POC Glucose 140 H 214 H 179 H Random Glucose Lactic Acid Lactic Acid F/U @ 2Hr Calcium Total Bilirubin Direct Bilirubin AST ALT Alkaline Phosphatase Troponin I High Sens Total Protein Albumin Lipase Urine Color Urine Appearance Urine pH Ur Specific [place] Urine Protein Urine Glucose (UA) Urine Ketones Urine Blood Urine Nitrite Ur Leukocyte Esterase Urine RBC Urine WBC Ur Squamous Epith Cells Amorphous Sediment Urine Bacteria COVID-19 ([facility]) COVID-19 [employer] Com 04/08/21 04/09/21 04/09/21 18:59 07:27 11:48 WBC RBC Hgb Hct MCV MCH MCHC RDW Plt Count MPV Immature Gran % (Auto) Neut % (Auto) Lymph % (Auto) [place] % (Auto) Eos % (Auto) Baso % (Auto) Lymph # (Auto) [place] # (Auto) Eos # (Auto) Baso # (Auto) Abs Immat Gran (auto) Absolute Neuts (auto) Absolute Nucleated RBC Nucleated RBC % (auto) Sodium Potassium Chloride Carbon Dioxide Anion Gap BUN Creatinine Estim Creat Clear Calc Estimated GFR POC Glucose 210 H 147 H 204 H Random Glucose Lactic Acid Lactic Acid F/U @ 2Hr Calcium Total Bilirubin Direct Bilirubin AST ALT Alkaline Phosphatase Troponin I High Sens Total Protein Albumin Lipase Urine Color Urine Appearance Urine pH Ur Specific [place] Urine Protein Urine Glucose (UA) Urine Ketones Urine Blood Urine Nitrite Ur Leukocyte Esterase Urine RBC Urine WBC Ur Squamous Epith Cells Amorphous Sediment Urine Bacteria COVID-19 ([facility]) COVID-19 [employer] 04/09/21 04/09/21 04/10/21 15:22 19:18 06:45 WBC RBC Hgb Hct MCV MCH MCHC RDW Plt Count MPV Immature Gran % (Auto) Neut % (Auto) Lymph % (Auto) [place] % (Auto) Eos % (Auto) Baso % (Auto) Lymph # (Auto) [place] # (Auto) Eos # (Auto) Baso # (Auto) Abs Immat Gran (auto) Absolute Neuts (auto) Absolute Nucleated RBC Nucleated RBC % (auto) Sodium Potassium Chloride Carbon Dioxide Anion Gap BUN Creatinine Estim Creat Clear Calc Estimated GFR POC Glucose 224 H 216 H 172 H Random Glucose Lactic Acid Lactic Acid F/U @ 2Hr Calcium Total Bilirubin Direct Bilirubin AST ALT Alkaline Phosphatase Troponin I High Sens Total Protein Albumin Lipase Urine Color Urine Appearance Urine pH Ur Specific [place] Urine Protein Urine Glucose (UA) Urine Ketones Urine Blood Urine Nitrite Ur Leukocyte Esterase Urine RBC Urine WBC Ur Squamous Epith Cells Amorphous Sediment Urine Bacteria COVID-19 ([facility]) COVID-19 [employer] 04/10/21 04/10/2122 10:29 11:18 11:31 WBC 12.5 H RBC 4.35 Hgb 12.9 Hct 41.1 MCV 94.5 MCH 29.7 MCHC 31.4 RDW 14.3 Plt Count 249 MPV 10.7 Immature Gran % (Auto) Neut % (Auto) Lymph % (Auto) [place] % (Auto) Eos % (Auto) Baso % (Auto) Lymph # (Auto) [place] # (Auto) Eos # (Auto) Baso # (Auto) Abs Immat Gran (auto) Absolute Neuts (auto) Absolute Nucleated RBC 0.000 Nucleated RBC % (auto) 0.0 Sodium 138 Potassium 4.0 Chloride 98 Carbon Dioxide 32 H Anion Gap 12 BUN 14 Creatinine 0.98 Estim Creat Clear Calc 56.8 Estimated GFR 55 POC Glucose 214 H Random Glucose 206 H Lactic Acid Lactic Acid F/U @ 2Hr Calcium 9.0 D Total Bilirubin Direct Bilirubin AST ALT Alkaline Phosphatase Troponin I High Sens Total Protein Albumin Lipase Urine Color Urine Appearance Urine pH Ur Specific [place] Urine Protein Urine Glucose (UA) Urine Ketones Urine Blood Urine Nitrite Ur Leukocyte Esterase Urine RBC Urine WBC Ur Squamous Epith Cells Amorphous Sediment Urine Bacteria COVID-19 ([facility]) COVID-19 Clin Com 04/10/21 15:46 WBC RBC Hgb Hct MCV MCH MCHC RDW Plt Count MPV Immature Gran % (Auto) Neut % (Auto) Lymph % (Auto) [place] % (Auto) Eos % (Auto) Baso % (Auto) Lymph # (Auto) [place] # (Auto) Eos # (Auto) Baso # (Auto) Abs Immat Gran (auto) Absolute Neuts (auto) Absolute Nucleated RBC Nucleated RBC % (auto) Sodium Potassium Chloride Carbon Dioxide Anion Gap BUN Creatinine Estim Creat Clear Calc Estimated GFR POC Glucose 165 H Random Glucose Lactic Acid Lactic Acid F/U @ 2Hr Calcium Total Bilirubin Direct Bilirubin AST ALT Alkaline Phosphatase Troponin I High Sens Total Protein Albumin Lipase Urine Color Urine Appearance Urine pH Ur Specific [place] Urine Protein Urine Glucose (UA) Urine Ketones Urine Blood Urine Nitrite Ur Leukocyte Esterase Urine RBC Urine WBC Ur Squamous Epith Cells Amorphous Sediment Urine Bacteria COVID-19 ([facility]) COVID-19 Clin Com Airway Mallampati Class: II (Edentulous upper) TM Dist: >3cm Neck ROM: Full Loose/Missing/Broken Teeth: Yes and Upper Heart: RRR Lungs: CTA Assessment and Plan Final Anesthetic Review History of Problems with Anesthesia: Yes (Aspiration) NPO: Yes ASA Class: III Final Preanesthetic Review: Meds/Allgs Chart Reviewed, Consent Obtained/Reviewed and Anes Risks/Benef Reviewed Patient Risk: Intermediate Procedure Risk: Low Anesthetic Plan Anesthetic Plan: GA Disposition: Standard PACU
[2021-04-10] MEDS: cefTRIAXone sodium 1 GM in 0.9 % Sodium Chloride 50 ML IV (16:35)
--- NOTE | 2021-04-10 17:49 | MHC.SHP ---
Pre-Procedural Eval Section A Date of Service: 04/10/21 The patient is an INPATIENT: Yes Changes since office visit: No Cold of Flu in the past 2 weeks, No New Medical Problems, No Changes in Medication and No Patient answered all questions The History & Physical has been completed within 30 days and I have reviewed it.: Yes Section B Chief Complaint: UTI, Renal Calculi, Abnormal abd CT Allergies: Allergies Allergy/AdvReac Type Severity Reaction Status Date / Time chlorpheniramine Allergy Severe HALLUCINATI Verified 04/05/21 17:57 [From TUSSIONEX] ONS escitalopram [ESCITALOPRAM] Allergy Severe DISSOCIATIVE Verified 04/05/21 17:57 REACTION fluoxetine [FLUOXETINE] Allergy Severe DISSOCIATIVE Verified 04/05/21 17:57 REACTION hydrocodone [From TUSSIONEX] Allergy Severe HALLUCINATI Verified 04/05/21 17:57 ONS ibuprofen [IBUPROFEN] Allergy Severe THROAT Verified 04/05/21 17:57 SWELLING Sulfa (Sulfonamide Allergy Severe DYSPNEA Verified 04/05/21 17:57 Antibiotics) [SULFA (SULFONAMIDE ANTIBIOTICS)] clarithromycin [From BIAXIN] Allergy Intermediate ABD.PAIN Verified 04/05/21 17:57 erythromycin base Allergy Intermediate RASH Verified 04/05/21 17:57 [ERYTHROMYCIN BASE] Penicillins [PENICILLINS] Allergy Intermediate RASH Verified 04/05/21 17:57 tetracycline [TETRACYCLINE] Allergy Intermediate DIARRHEA Verified 04/05/21 17:57 ciprofloxacin [From CIPRO] Allergy Unknown ANAPHYLAXIS Verified 04/05/21 17:57 codeine [CODEINE] Allergy Unknown TINNITIS Verified 04/05/21 17:57 duloxetine [DULOXETINE] Allergy Unknown FACIAL Verified 04/05/21 17:57 NUMBNESS guaifenesin Allergy Unknown Unknown Verified 04/05/21 17:57 levofloxacin [From Levaquin] Allergy Unknown Unknown Verified 04/10/21 16:10 penicillin V Allergy Unknown Unknown Verified 04/05/21 17:57 pregabalin Allergy Unknown Unknown Verified 04/05/21 17:57 biaxin Allergy Unknown abdominal Uncoded 01/19/21 12:59 pain cipro Allergy Unknown angioedema Uncoded 01/19/21 12:59 Erythromycin Allergy Unknown Unknown Uncoded 01/19/21 12:59 erythromycin Allergy Unknown rash Uncoded 01/19/21 12:59 fluoxetine Allergy Unknown hallucinations, Uncoded 01/19/21 12:59 fogginess , throat tightening ibuprofen Allergy Unknown throat Uncoded 01/19/21 12:59 swelling PCN Allergy Unknown rash Uncoded 01/19/21 12:59 sulfa Allergy Unknown dyspnea Uncoded 01/19/21 12:59 tetracycline Allergy Unknown diarrhea Uncoded 01/19/21 12:59 tussionex Allergy Unknown hallucinati Uncoded 01/19/21 12:59 ons Plan Diagnosis/Plan: Unchanged (Right ureteroscopy laser lithotripsy) I have reviewed the history and physical and performed a pertinent physical examination on my patient. No changes have occurred unless specified.
--- NOTE | 2021-04-10 17:50 | W.PM.OPN ---
Operative Note Operative Note Date of Service: 04/10/21 Narrative: PreOperative Diagnosis: Right staghorn calculus Post Operative Diagnosis: right staghorn calculus Procedure: - cystoscopy, right retrograde - right dilatation of ureteric orifice under fluoroscopy - right ureteroscopy, laser lithotripsy, stone basketing Modifier 22 - right stent placement Surgeon: Dr Jose Reis Anesthesia: General Indications for procedure: 76-year-old female. staghorn calculus causing recurrent infection. Understands is too large did be done in a single setting. Not medically fit for prone procedure and percutaneous nephrolithotomy. Will proceed with laser lithotripsy and she understands for the secondary procedures Will be needed. Procedure: After informed consent was verified patient was brought to the operating placed in supine position. Anesthesia was administered per protocol. Patient was placed in modified dorsal lithotomy position and prepped and draped in a sterile fashion. Safety pause time-out and side of surgery confirmed. Antibiotics confirmed. 22 Tamazight cystoscope was inserted per urethra. Bladder was normal in its entirety. Both ureteric orifices were in normal position. The right ureteric orifice was cannulated and a retrograde examination was performed. filling defects seen in right lower and mid pole . A Sensor guidewire was placed up to the level of the renal pelvis under fluoroscopy. The rigid cystoscope was removed and the inner cannula of ureteric access sheath was used under fluoroscopy to dilate the ureteric orifice. The ureteric access sheath was placed and the inner cannula with access wire removed. The digital flexible ureteral scope was placed. 45 minutes of laser procedure performed with dusting and breaking up of large stone 100% longer than typical. Eventually there was ooze from the inflamed mucosa is a stone was removed and visualization decade. Decision was made to complete the procedure. A 6 Tamazight by 22 cm double-J stent was placed into the renal pelvis and bladder under a combination of fluoroscopy and direct visualization. The bladder was emptied. The patient tolerated the procedure well and was extubated in the operating room, and transferred in stable condition to the recovery area. Pathology: stone debris Drains: 6 Fr by 22 cm double-J stent
--- NOTE | 2021-04-10 19:01 | PC.NURSE ---
Pt returned to unit from surgery at 7pm as content writer was giving report to Yamini IBARRA. Report given to Yamini IBARRA.
[2021-04-10] MEDS: Phenazopyridine HCL 100 MG TABLET PO (19:10)
[2021-04-10] MEDS: Acetaminophen 325 MG TABLET 650 MG PO (19:11)
[2021-04-10 20:23] LABS: Glucose, Whole Blood 176 mg/dL (60-115)
[2021-04-10] MEDS: Insulin Lispro 100 UNIT/ML 3 ML VIAL SUBCUT (20:31)
[2021-04-11] VITALS (7 sets, daily range): BP systolic 110–139; BP diastolic 52–74; PULSE 82–97; RESP 16–18; TEMP 36–37.6; O2SAT 95–98
[2021-04-11] MEDS: Acetaminophen 325 MG TABLET 650 MG PO ×2 (02:31→16:59)
[2021-04-11] MEDS: oxyCODONE HCl Immed Release 5 MG TABLET PO ×3 (02:32→19:30)
[2021-04-11] MEDS: metroNIDAZOLE 500 MG TABLET PO ×2 (05:46→18:02)
[2021-04-11] MEDS: Levothyroxine Sodium 112 MCG TABLET PO (05:46)
[2021-04-11 07:41] LABS: Glucose, Whole Blood 212 mg/dL (60-115)
[2021-04-11] MEDS: Insulin Lispro 100 UNIT/ML 3 ML VIAL SUBCUT ×3 (07:57→21:11)
[2021-04-11] MEDS: amLODIPine Besylate 5 MG TABLET PO (07:57)
[2021-04-11] MEDS: Atorvastatin Calcium 10 MG TABLET PO (07:57)
[2021-04-11] MEDS: Furosemide 40 MG TABLET PO ×2 (07:58→16:59)
[2021-04-11] MEDS: 0.9 % Sodium Chloride Flush 3 ML SYRINGE IVFLUSH ×3 (07:59→21:12)
[2021-04-11 08:37] LABS: Hematocrit 39.1 % (37.0-47.0); Hemoglobin 12.3 g/dl (12.0-16.0); Mean Corpuscular HGB Conc 31.5 g/dl (31.0-35.0); Mean Corpuscular Hemoglobin 29.9 pg (27.0-33.0); Mean Corpuscular Volume 95.1 fL (80.0-98.0); Mean Platelet Volume 9.5 fL (9.4-12.3); Platelet Count 235 X10*3/uL (160-400); Red Blood Count 4.11 X10*6/uL (4.20-5.50); Red Cell Distribution Width 14.3 % (11.0-16.0); White Blood Count 16.7 X10*3/uL (4.8-10.8)
[2021-04-11 08:51] LABS: Anion Gap 15 (12-20); Blood Urea Nitrogen 15 mg/dL (9-16); Calcium 8.9 mg/dL (8.4-10.2); Carbon Dioxide 28 mmol/L (22-29); Chloride 97 mmol/L (96-108); Creatinine Clr Calc Pharmacy 48.5; Estimated Glomerular Filt Rate 46; Glucose Random 224 mg/dL (60-115); Potassium 4.6 mmol/L (3.3-5.1); Sodium 135 mmol/L (135-145)
--- NOTE | 2021-04-11 09:30 | HO.PM.IMPN ---
Subjective Subjective Date of Service: 04/11/21 Interval History: f/u on pyelonephritis, colitis, still has some residual pain, s/p cystoscopy with Right staghorn stone intervention 3/.. She has been passing stone, has some blood in urine and pain with urination Review of Systems No fever some abdominal discomfort hematuria and dysuria Physical Exam Vital Signs: Vital Signs: Last Vital Signs Temp 96.8 F 04/11/21 07:34 Pulse 84 04/11/21 07:34 Resp 18 04/11/21 07:34 BP 136/74 04/11/21 07:34 Pulse Ox 97 04/11/21 07:34 BMI result Body Mass Index 43.4 Const: Other: General: AO X 3, no acute distress Resp: CTA bilateral CVS: S1,S2,RRR GI: +BS, NT, no distention, no tenderness Skin: No rash Neuro: motor grossly intact Psych: appropriate affect Objective Data Active Medications Acetaminophen (Acetaminophen 325 Mg Tablet) 650 mg PO Q6H PRN PRN Reason: Pain, Mild (Pain Scale 1-3) Last Admin: 04/11/21 02:31 Dose: 650 mg Documented by: ALLA Albuterol Sulfate (Albuterol Sulfate (0.083%) 2.5 Mg/3 Ml Vial.Neb) 2.5 mg INHALE ONCE PRN PRN Reason: Wheezing Amlodipine Besylate (Amlodipine Besylate 5 Mg Tablet) 5 mg PO DAILY [facility]; Protocol Last Admin: 04/11/21 07:57 Dose: 5 mg Documented by: SID Atorvastatin Calcium (Atorvastatin Calcium 10 Mg Tablet) 10 mg PO DAILY [facility] Last Admin: 04/11/21 07:57 Dose: 10 mg Documented by: SID Dextrose (Dextrose 50 % 25 Gm/50 Ml Vial) 25 gm IVPUSH Q15M PRN; Protocol PRN Reason: per Hypoglycemia Standing Ord. Docusate Sodium (Docusate Sodium 100 Mg Capsule) 100 mg PO BEDTIME [facility] Last Admin: 04/10/21 20:33 Dose: Not Given Documented by: ALLA Non-Admin Reason: loose stool Fentanyl (Fentanyl Citrate/Pf 100 Mcg/2 Ml Vial) 50 mcg IVPUSH Q5M PRN; Protocol PRN Reason: Pain, Severe (Pain Scale 7-10) Fentanyl (Fentanyl Citrate/Pf 100 Mcg/2 Ml Vial) 25 mcg IVPUSH Q5M PRN; Protocol PRN Reason: Pain, Moderate (Pain Scale 4-6 Furosemide (Furosemide 40 Mg Tablet) 40 mg PO BID@0800,1700 [facility]; Protocol Last Admin: 04/11/21 07:58 Dose: 40 mg Documented by: SID Glucose (Glucose Gel 15 Gm Gel..Gram.) 15 gm PO Q15M PRN; Protocol PRN Reason: per Hypoglycemia Standing Ord. Ceftriaxone Sodium 1 gm/ (Sodium Chloride) 50 mls @ 100 mls/hr IV Q24H [facility] Insulin Human Lispro (Insulin Lispro 100 Unit/Ml 3 Ml Vial) 0 unit SUBCUT QIDACHS [facility]; Protocol Last Admin: 04/11/21 07:57 Dose: 4 unit Documented by: SID Levothyroxine Sodium (Levothyroxine Sodium 112 Mcg Tablet) 112 mcg PO DAILY@0630 [facility] Last Admin: 04/11/21 05:46 Dose: 112 mcg Documented by: ALLA Metronidazole (Metronidazole 500 Mg Tablet) 500 mg PO Q12H [facility] Last Admin: 04/11/21 05:46 Dose: 500 mg Documented by: ALLA Morphine Sulfate (Morphine Sulfate 2 Mg/Ml Cartridge) 1 mg IVPUSH Q6H PRN; Protocol PRN Reason: Pain, Mild (Pain Scale 1-3) Ondansetron HCl (Ondansetron Hcl 4 Mg/2 Ml Vial) 4 mg IVPUSH Q8H PRN PRN Reason: Nausea and Vomiting Ondansetron HCl (Ondansetron Hcl 4 Mg/2 Ml Vial) 4 mg IVPUSH ONCE PRN PRN Reason: Nausea and Vomiting Oxycodone HCl (Oxycodone Hcl Immed Release 5 Mg Tablet) 5 mg PO Q6H PRN PRN Reason: Pain, Severe (Pain Scale 7-10) Polyethylene Glycol (Polyethylene Glycol 3350 17 Gm Powd.Pack) 17 gm PO DAILY [facility] Last Admin: 04/11/21 08:05 Dose: Not Given Documented by: SID Non-Admin Reason: Patient Refused Sodium Chloride (0.9 % Sodium Chloride Flush 3 Ml Syringe) 3 ml IVFLUSH QSHIFT [facility] Last Admin: 04/11/21 07:59 Dose: 3 ml Documented by: SID Labs CBC & Chem 7: 03/05/22 08:31 04/11/21 08:31 Labs: Laboratory Results - last 24 hr 04/10/21 04/10/21 04/10/21 10:29 11:18 11:31 MCV 94.5 MCH 29.7 MCHC 31.4 RDW 14.3 Plt Count 249 MPV 10.7 Absolute Nucleated RBC 0.000 Nucleated RBC % (auto) 0.0 Anion Gap 12 Estim Creat Clear Calc 56.8 Estimated GFR 55 POC Glucose 214 H Random Glucose 206 H Calcium 9.0 D 04/10/21 04/10/21 04/11/21 15:46 19:09 07:34 MCV MCH MCHC RDW Plt Count MPV Absolute Nucleated RBC Nucleated RBC % (auto) Anion Gap Estim Creat Clear Calc Estimated GFR POC Glucose 165 H 176 H 212 H Random Glucose Calcium 04/11/21 04/11/21 08:31 08:31 MCV 95.1 MCH 29.9 MCHC 31.5 RDW 14.3 Plt Count 235 MPV 9.5 Absolute Nucleated RBC 0.000 Nucleated RBC % (auto) 0.0 Anion Gap 15 Estim Creat Clear Calc 48.5 Estimated GFR 46 POC Glucose Random Glucose 224 H Calcium 8.9 Microbiology Microbiology Results: Microbiology 04/05/21 20:30 Blood Culture - Final Blood - Venous No growth after 5 days. 04/05/21 20:23 Blood Culture - Final Blood - Venous No growth after 5 days. Assessment and Plan (1) Staghorn calculus: Status: Acute (2) UTI (urinary tract infection): Status: Acute Plan 76-year-old female with extensive past medical history presents to the hospital? with complaints of abdominal pain found to have UTI as well as staghorn calculus 1.? Pyelonephritis/UTI in setting of right staghorn calculi -cultures negative -Continue IV Abx (Ceftriaxone) for at least a day more -Urology to intervene on stone on 04/10 with the following remarks by Dr. Reis - cystoscopy,? right retrograde - ? right dilatation of ureteric orifice under fluoroscopy - ? right ureteroscopy, laser lithotripsy, stone basketing? Modifier 22 - ? right stent placement 2.?Colitis--antibiotics as above, Dr. Brown planning colonoscopy 2 to 3 weeks 3.? lactic acidosis -? likely secondary to above -? resolved with IV fluids 4. Morbid obesity: Encouraged to lose weight, health benefits discussed and aware of weight loss options 5. Monitor H/h for hematuria Quality Stroke Does the patient have a stroke diagnosis?: No VTE Prior VTE?: No VTE Risk Level:: Medical - moderate - high VTE Device Contraindication: Treatment Not Indicated VTE Drug Contraindication: N/A - Med Ordered
[2021-04-11 11:50] LABS: Glucose, Whole Blood 150 mg/dL (60-115)
[2021-04-11 16:32] LABS: Glucose, Whole Blood 173 mg/dL (60-115)
[2021-04-11] MEDS: cefTRIAXone sodium 1 GM in 0.9 % Sodium Chloride 50 ML IV (17:01)
--- NOTE | 2021-04-11 18:23 | HO.POSTANES ---
Post Anesthesia Evaluation Post Anesthesia Evaluation Vital Signs: Vital Signs Temp Pulse Resp BP Pulse Ox 04/11/21 16:32 96 04/11/21 15:59 99.3 F 97 18 135/63 96 04/11/21 11:43 99.1 F 89 18 134/61 95 04/11/21 07:34 96.8 F 84 18 136/74 97 Anesthesia: General Endotracheal-GETA Mental Status: Awake Pain Control: Satisfactory Nausea/Vomiting: None Hydration: Adequate Anesthesia-Related Issues: No Anes. Related Issues
[2021-04-11 20:27] LABS: Glucose, Whole Blood 218 mg/dL (60-115)
[2021-04-12] VITALS (7 sets, daily range): BP systolic 124–178; BP diastolic 58–81; PULSE 70–93; RESP 16–18; TEMP 35.6–37.2; O2SAT 95–97
[2021-04-12] MEDS: oxyCODONE HCl Immed Release 5 MG TABLET PO ×4 (01:22→21:47)
[2021-04-12] MEDS: Acetaminophen 325 MG TABLET 650 MG PO ×3 (01:25→15:33)
[2021-04-12] MEDS: Levothyroxine Sodium 112 MCG TABLET PO (05:47)
[2021-04-12] MEDS: metroNIDAZOLE 500 MG TABLET PO ×2 (05:47→18:09)
--- NOTE | 2021-04-12 07:54 | HO.PM.IMPN ---
Subjective Subjective Date of Service: 04/12/21 Interval History: f/u on pyelonephritis, colitis, still has some residual pain, s/p cystoscopy with Right staghorn stone intervention 04/10.. She has been passing stone, still with some intermittent hematuria Review of Systems hematuria, chills, no fever, back pain Physical Exam Vital Signs: Vital Signs: Last Vital Signs Temp 98.0 F 04/12/21 07:51 Pulse 81 04/12/21 07:51 Resp 18 04/12/21 07:51 BP 138/81 04/12/21 07:51 Pulse Ox 95 04/12/21 07:51 BMI result Body Mass Index 43.4 Const: Other: General: AO X 3, no acute distress Resp: CTA bilateral CVS: S1,S2,RRR GI: +BS, NT, no distention, no tenderness, no flank tenderness Skin: No rash Neuro: motor grossly intact Psych: appropriate affect Objective Data Active Medications Acetaminophen (Acetaminophen 325 Mg Tablet) 650 mg PO Q6H PRN PRN Reason: Pain, Mild (Pain Scale 1-3) Last Admin: 04/12/21 01:25 Dose: 650 mg Documented by: ALLA Albuterol Sulfate (Albuterol Sulfate (0.083%) 2.5 Mg/3 Ml Vial.Neb) 2.5 mg INHALE ONCE PRN PRN Reason: Wheezing Amlodipine Besylate (Amlodipine Besylate 5 Mg Tablet) 5 mg PO DAILY [facility]; Protocol Last Admin: 04/11/21 07:57 Dose: 5 mg Documented by: SID Atorvastatin Calcium (Atorvastatin Calcium 10 Mg Tablet) 10 mg PO DAILY [facility] Last Admin: 04/11/21 07:57 Dose: 10 mg Documented by: SID Dextrose (Dextrose 50 % 25 Gm/50 Ml Vial) 25 gm IVPUSH Q15M PRN; Protocol PRN Reason: per Hypoglycemia Standing Ord. Docusate Sodium (Docusate Sodium 100 Mg Capsule) 100 mg PO BEDTIME [facility] Last Admin: 04/11/21 21:13 Dose: Not Given Documented by: ALLA Non-Admin Reason: loose stools Fentanyl (Fentanyl Citrate/Pf 100 Mcg/2 Ml Vial) 50 mcg IVPUSH Q5M PRN; Protocol PRN Reason: Pain, Severe (Pain Scale 7-10) Fentanyl (Fentanyl Citrate/Pf 100 Mcg/2 Ml Vial) 25 mcg IVPUSH Q5M PRN; Protocol PRN Reason: Pain, Moderate (Pain Scale 4-6 Furosemide (Furosemide 40 Mg Tablet) 40 mg PO BID@0800,1700 [facility]; Protocol Last Admin: 04/11/21 16:59 Dose: 40 mg Documented by: SID Glucose (Glucose Gel 15 Gm Gel..Gram.) 15 gm PO Q15M PRN; Protocol PRN Reason: per Hypoglycemia Standing Ord. Ceftriaxone Sodium 1 gm/ (Sodium Chloride) 50 mls @ 100 mls/hr IV Q24H [facility] Last Infusion: 04/11/21 17:55 Dose: 0 mls/hr Documented by: SID Insulin Human Lispro (Insulin Lispro 100 Unit/Ml 3 Ml Vial) 0 unit SUBCUT QIDACHS [facility]; Protocol Last Admin: 04/11/21 21:11 Dose: 4 unit Documented by: ALLA Levothyroxine Sodium (Levothyroxine Sodium 112 Mcg Tablet) 112 mcg PO DAILY@0630 [facility] Last Admin: 04/12/21 05:47 Dose: 112 mcg Documented by: ALLA Metronidazole (Metronidazole 500 Mg Tablet) 500 mg PO Q12H [facility] Last Admin: 04/12/21 05:47 Dose: 500 mg Documented by: ALLA Morphine Sulfate (Morphine Sulfate 2 Mg/Ml Cartridge) 1 mg IVPUSH Q6H PRN; Protocol PRN Reason: Pain, Mild (Pain Scale 1-3) Ondansetron HCl (Ondansetron Hcl 4 Mg/2 Ml Vial) 4 mg IVPUSH Q8H PRN PRN Reason: Nausea and Vomiting Ondansetron HCl (Ondansetron Hcl 4 Mg/2 Ml Vial) 4 mg IVPUSH ONCE PRN PRN Reason: Nausea and Vomiting Oxycodone HCl (Oxycodone Hcl Immed Release 5 Mg Tablet) 5 mg PO Q6H PRN PRN Reason: Pain, Severe (Pain Scale 7-10) Last Admin: 04/12/21 01:22 Dose: 5 mg Documented by: ALLA Polyethylene Glycol (Polyethylene Glycol 3350 17 Gm Powd.Pack) 17 gm PO DAILY [facility] Last Admin: 04/11/21 08:05 Dose: Not Given Documented by: HO.WILLISK Non-Admin Reason: Patient Refused Sodium Chloride (0.9 % Sodium Chloride Flush 3 Ml Syringe) 3 ml IVFLUSH QSHIFT [facility] Last Admin: 04/11/21 21:12 Dose: 3 ml Documented by: ALLA Labs CBC & Chem 7: 04/12/21 08:23 04/11/21 08:31 Labs: Laboratory Results - last 24 hr 04/11/21 04/11/21 04/11/21 08:31 08:31 11:43 MCV 95.1 MCH 29.9 MCHC 31.5 RDW 14.3 Plt Count 235 MPV 9.5 Absolute Nucleated RBC 0.000 Nucleated RBC % (auto) 0.0 Anion Gap 15 Estim Creat Clear Calc 48.5 Estimated GFR 46 POC Glucose 150 H Random Glucose 224 H Calcium 8.9 04/11/21 04/11/21 16:04 19:46 MCV MCH MCHC RDW Plt Count MPV Absolute Nucleated RBC Nucleated RBC % (auto) Anion Gap Estim Creat Clear Calc Estimated GFR POC Glucose 173 H 218 H Random Glucose Calcium Assessment and Plan (1) Staghorn calculus: Status: Acute (2) UTI (urinary tract infection): Status: Acute Plan 76-year-old female with extensive past medical history presents to the hospital? with complaints of abdominal pain found to have UTI as well as staghorn calculus 1. Pyelonephritis/UTI in setting of right staghorn calculi -cultures negative, WBC now normal. -Continue IV Abx (Ceftriaxone) for at least a day more, then change to oral Ceftin by tomorrow -Urology to intervene on stone on 04/10 with the following remarks by Dr. Reis - cystoscopy,? right retrograde - ? right dilatation of ureteric orifice under fluoroscopy - ? right ureteroscopy, laser lithotripsy, stone basketing? Modifier 22 - ? right stent placement 2.?Colitis--antibiotics as above, Dr. Brown planning colonoscopy 2 to 3 weeks 3.? lactic acidosis -? likely secondary to above -? resolved with IV fluids 4. Morbid obesity: Encouraged to lose weight, health benefits discussed and aware of weight loss options 5. Monitor H/h for hematuria Quality Stroke Does the patient have a stroke diagnosis?: No VTE Prior VTE?: No VTE Risk Level:: Medical - moderate - high VTE Device Contraindication: Treatment Not Indicated VTE Drug Contraindication: N/A - Med Ordered
[2021-04-12 08:20] LABS: Glucose, Whole Blood 170 mg/dL (60-115)
[2021-04-12 08:32] LABS: Hematocrit 38.3 % (37.0-47.0); Hemoglobin 12.1 g/dl (12.0-16.0); Mean Corpuscular HGB Conc 31.6 g/dl (31.0-35.0); Mean Corpuscular Volume 94.8 fL (80.0-98.0); Mean Platelet Volume 9.4 fL (9.4-12.3); Platelet Count 206 X10*3/uL (160-400); Red Blood Count 4.04 X10*6/uL (4.20-5.50); Red Cell Distribution Width 14.5 % (11.0-16.0); White Blood Count 9.6 X10*3/uL (4.8-10.8)
[2021-04-12] MEDS: amLODIPine Besylate 5 MG TABLET PO (09:13)
[2021-04-12] MEDS: Furosemide 40 MG TABLET PO ×2 (09:14→17:08)
[2021-04-12] MEDS: Insulin Lispro 100 UNIT/ML 3 ML VIAL SUBCUT ×4 (09:14→21:47)
[2021-04-12] MEDS: 0.9 % Sodium Chloride Flush 3 ML SYRINGE IVFLUSH ×2 (09:14→17:07)
[2021-04-12] MEDS: Atorvastatin Calcium 10 MG TABLET PO (09:14)
[2021-04-12 11:58] LABS: Glucose, Whole Blood 245 mg/dL (60-115)
--- NOTE | 2021-04-12 14:15 | MHC.CM.PN ---
PLAN IS PO CEFTIN BY TUESDAY AND DISCHARGE TO HOME - SELF CARE. SIGNIFICANT OTHER TO PROVIDE TRANSPORT. IMM 04/12 IN CHART
[2021-04-12 16:20] LABS: Glucose, Whole Blood 213 mg/dL (60-115)
[2021-04-12] MEDS: cefTRIAXone sodium 1 GM in 0.9 % Sodium Chloride 50 ML IV (18:09)
[2021-04-12 19:44] LABS: Glucose, Whole Blood 263 mg/dL (60-115)
[2021-04-13] MEDS: 0.9 % Sodium Chloride Flush 3 ML SYRINGE IVFLUSH ×2 (00:44→09:41)
[2021-04-13 00:47] VITALS: BP 136/53; PULSE 82
[2021-04-13 03:54] VITALS: BP 140/52; PULSE 84; RESP 17; TEMP 36.8; O2SAT 98
--- NOTE | 2021-04-13 06:07 | PC.NURSE ---
Patient reports occasional pink tinged urine and adds that her hamaturia is much improved.
[2021-04-13] MEDS: metroNIDAZOLE 500 MG TABLET PO (06:27)
[2021-04-13] MEDS: Levothyroxine Sodium 112 MCG TABLET PO (06:28)
[2021-04-13] MEDS: Acetaminophen 325 MG TABLET 650 MG PO (06:33)
[2021-04-13] MEDS: oxyCODONE HCl Immed Release 5 MG TABLET PO (06:33)
[2021-04-13 06:58] VITALS: BP 111/54; PULSE 77; RESP 18; TEMP 36.1; O2SAT 95
[2021-04-13 07:10] LABS: Glucose, Whole Blood 228 mg/dL (60-115)
[2021-04-13] MEDS: Insulin Lispro 100 UNIT/ML 3 ML VIAL SUBCUT (07:29)
--- NOTE | 2021-04-13 08:43 | PM.UROPN ---
Subjective Subjective Date of Service: 04/13/21 Interval history: white count resolved Pain is better controlled Discussed that approximately 1/3 to half the stone burden had been removed in the procedure on Tuesday Could be discharged from a urology point of view and follow up for repeat procedure in 2-3 weeks Physical Exam Vital Signs: Vital Signs: Last Vital Signs Temp 97 F 04/13/21 06:58 Pulse 77 04/13/21 06:58 Resp 18 04/13/21 06:58 BP 111/54 L 04/13/21 06:58 Pulse Ox 95 04/13/21 06:58 BMI result Body Mass Index 43.4 Const: General: cooperative, healthy appearing, comfortable and no acute distress Orientation/consciousness: patient oriented x3 HENMT: Face and sinus: Yes normal facial exam Mouth: moist mucous membranes Neck: Neck: Yes normal visual inspection, Yes full ROM and Yes trachea midline Chest: Chest palpation & inspection: normal inspection of the chest Resp: Effort & Inspection: normal respiratory effort, able to speak in complete sentences and no respiratory distress GI: Inspection: Yes normal to inspection Back/Spine/Pelvis: Cervical Spine: normal cervical lordosis Thoracic/Lumbar Spine: thoracic and lumbar spine normal to inspection Skin: General skin exam: no rashes or lesions noted Neuro: General: patient oriented x3, tone normal and moves all extremities Extrem: General: Yes normal to inspection and Yes capillary refill normal Urology Results Labs CBC & Chem 7: 04/12/21 08:23 04/11/21 08:31 Labs: Laboratory Results - last 24 hr 04/12/21 04/12/21 04/12/21 11:46 16:14 19:38 POC Glucose 245 H 213 H 263 H 04/13/21 06:58 POC Glucose 228 H Progress Note: A&P Assessment and plan (1) Staghorn calculus: Status: Acute Plan follow-up procedure. Two weeks antibiotics - could go on oral cefuroxime. Fall Risk Details Current Medications: Current Medications Acetaminophen (Acetaminophen 325 Mg Tablet) 650 mg PO Q6H PRN PRN Reason: Pain, Mild (Pain Scale 1-3) Last Admin: 04/13/21 06:33 Dose: 650 mg Documented by: Albuterol Sulfate (Albuterol Sulfate (0.083%) 2.5 Mg/3 Ml Vial.Neb) 2.5 mg INHALE ONCE PRN PRN Reason: Wheezing Amlodipine Besylate (Amlodipine Besylate 5 Mg Tablet) 5 mg PO DAILY [facility]; Protocol Last Admin: 04/12/21 09:13 Dose: 5 mg Documented by: Atorvastatin Calcium (Atorvastatin Calcium 10 Mg Tablet) 10 mg PO DAILY [facility] Last Admin: 04/12/21 09:14 Dose: 10 mg Documented by: Dextrose (Dextrose 50 % 25 Gm/50 Ml Vial) 25 gm IVPUSH Q15M PRN; Protocol PRN Reason: per Hypoglycemia Standing Ord. Docusate Sodium (Docusate Sodium 100 Mg Capsule) 100 mg PO BEDTIME [facility] Last Admin: 04/12/21 21:15 Dose: Not Given Documented by: Fentanyl (Fentanyl Citrate/Pf 100 Mcg/2 Ml Vial) 50 mcg IVPUSH Q5M PRN; Protocol PRN Reason: Pain, Severe (Pain Scale 7-10) Fentanyl (Fentanyl Citrate/Pf 100 Mcg/2 Ml Vial) 25 mcg IVPUSH Q5M PRN; Protocol PRN Reason: Pain, Moderate (Pain Scale 4-6 Furosemide (Furosemide 40 Mg Tablet) 40 mg PO BID@0800,1700 [facility]; Protocol Last Admin: 04/12/21 17:08 Dose: 40 mg Documented by: Glucose (Glucose Gel 15 Gm Gel..Gram.) 15 gm PO Q15M PRN; Protocol PRN Reason: per Hypoglycemia Standing Ord. Ceftriaxone Sodium 1 gm/ (Sodium Chloride) 50 mls @ 100 mls/hr IV Q24H [facility] Last Infusion: 04/12/21 19:24 Dose: Infused Documented by: Insulin Human Lispro (Insulin Lispro 100 Unit/Ml 3 Ml Vial) 0 unit SUBCUT QIDACHS [facility]; Protocol Last Admin: 04/13/21 07:29 Dose: 4 unit Documented by: Levothyroxine Sodium (Levothyroxine Sodium 112 Mcg Tablet) 112 mcg PO DAILY@0630 [facility] Last Admin: 04/13/21 06:28 Dose: 112 mcg Documented by: Metronidazole (Metronidazole 500 Mg Tablet) 500 mg PO Q12H [facility] Last Admin: 04/13/21 06:27 Dose: 500 mg Documented by: Ondansetron HCl (Ondansetron Hcl 4 Mg/2 Ml Vial) 4 mg IVPUSH Q8H PRN PRN Reason: Nausea and Vomiting Ondansetron HCl (Ondansetron Hcl 4 Mg/2 Ml Vial) 4 mg IVPUSH ONCE PRN PRN Reason: Nausea and Vomiting Oxycodone HCl (Oxycodone Hcl Immed Release 5 Mg Tablet) 5 mg PO Q6H PRN PRN Reason: Pain, Severe (Pain Scale 7-10) Last Admin: 04/13/21 06:33 Dose: 5 mg Documented by: Polyethylene Glycol (Polyethylene Glycol 3350 17 Gm Powd.Pack) 17 gm PO DAILY [facility] Last Admin: 04/12/21 11:14 Dose: Not Given Documented by: Sodium Chloride (0.9 % Sodium Chloride Flush 3 Ml [facility]) [facility] Admin: 04/13/21 00:44 Dose: 3 ml Documented by: Time Spent With Patient Time: Total time spent is greater than 50% in coordination of care (as documented) at patient's floor/unit and/or counseling patient: Time with patient: less than 15 minutes Progress Note: Quality Stroke Does the patient have a stroke diagnosis?: No
--- NOTE | 2021-04-13 08:59 | PM.DS ---
DS: Providers Provider Date of Service: 04/13/21 Date of admission: 04/05/21 23:04 Primary care physician: Preston Wang MD, DO Consults: 04/05/21 23:01 Consult to Gastroenterology Routine Consulting Provider: Mike Brown Reason for consultation: Diverticulitis vs carcinoma as seen on CT Has provider been notified: No Consult to Urology Routine Consulting Provider: Jose Reis Reason for consultation: kidney stone Has provider been notified: Yes DS: Diagnosis Discharge Diagnosis (1) Abdominal pain: Status: Acute (2) Diverticulitis: Status: Acute (3) Renal stones: Status: Acute (4) UTI (urinary tract infection): Status: Acute DS: Summary Hospital Course Hospital Course: Chief Complaint: abd [id number] female with past medical history significant for? hypertension, hyperlipidemia, hypothyroidism, type 2 diabetes, anxiety, and history of staghorn calculi? presents to the hospital with complaints of abdominal pain.? Patient describes the abdominal pain as 10/10, epigastric, radiating to the? back,? intermittent, lasting few hours and resolving spontaneously.dshe is also complaining of right flank pain radiating to the groin, ? Patient reports that she has been having burning on urination as well as frequency.? She went to her PCP on Tuesday for these symptoms, did a UA but has not received the results back.? She continues to have dysuria and frequency.? She has had chills, febrile with a temp of a 100 degrees at home, has nausea, 1 episode of vomiting, no diarrhea constipation, and no lower extremity edema.? No headache or change in vision, no weakness numbness or tingling.? On arrival to the ED patient hemodynamically stable with no significant abnormal vitals except slightly elevated blood pressure Labs are significant for? WBC count of 17.2, lactic acid of 2.1 which resolved after by IV fluids, AST of 71, ALT of 41, alk-phos of 53, UA positive, for leukocyte Estrace and WBC, lipase of 10. Abdomen pelvic CT shows abnormal sigmoid colon, diverticulitis vs carcinoma must be consideration and therefore sigmoidoscopy is recommended. although has not changes since 02/16/2021.? Abnormal liver with nodular border and hypertrophied left lobe suggesting cirrhosis with associated mild splenomegaly.? Cholelithiasis without cholecystitis, extensive right renal calculi with some calculus disease on the left, ?urology is consulted and will see patient in a.m. Hospital course 1. Pyelonephritis/UTI in setting of right? staghorn calculi, cultures have been negative including Urine and blood. She was on ceftriaxone from admission day Apr 06 and on 04/10 -Urology (Dr. Reis) intervene on stone with the following remarks ? - cystoscopy,? right retrograde ? - ? right dilatation of ureteric orifice under fluoroscopy ? - ? right ureteroscopy, laser lithotripsy, stone basketing? Modifier 22 ? - ? right stent placement Post procedure has done well, WBC has returned to normal, no fever, has mild hematuria which is expected to be self limitting and has not affected hemoglobin or hematocrit. Dr. Reis recommend additonal 2 weeks 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 and therefore will prescribed Ceftin 2.?Colitis as was seen on CT was evaluated by Dr. Brown ( performance test architect) and will arrange for in 2 to 3 weeks, She has been on Ceftriaxone and Flagyl for colitis. 3.? lactic acidosis---resolved with IVF, not related to sepsis 4. Morbid obesity:? Encouraged to lose weight, health benefits discussed and aware of weight loss options 5. Monitor H/h for hematuria Time Spent with Patient Time attestation: Total time spent providing and/or coordinating discharge services: Discharge coordination time: Greater than 30 minutes Quality: Stroke Does the patient have a stroke diagnosis?: No Physical Exam Vital Signs: Vital Signs: Selected Entries 04/13/21 06:58 Temperature 97 F Pulse Rate 77 Respiratory Rate 18 Blood Pressure 111/54 L Pulse Oximetry 95 Oxygen Delivery Me thod Room Air Const: Other: General: AO X 3, no acute distress--face to face exam 04/13 Resp: CTA bilateral CVS: S1,S2,RRR GI: +BS, NT, no distention, no tenderness Skin: No rash Neuro: motor grossly intact Psych: appropriate affect DS: Data Data Completed and Pending Labs on day of discharge: Laboratory Results - last 24 hr 04/08/21 04/08/21 04/08/21 10:58 16:03 18:59 POC Glucose 214 H 179 H 210 H 04/09/21 07:27 POC Glucose 147 H Preliminary micro results at discharge 04/05/21 20:30 Blood Culture - Preliminary Blood - Venous No growth after 48 hours. 04/05/21 20:23 Blood Culture - Preliminary Blood - Venous No growth after 48 hours. Discharge Plan Discharge Anticipated Discharge Date/Time: 04/13/21 08:41 Patient Disposition: Home, Self-Care Discharge Diagnosis: UTI, colitis Referrals: Jose Reis MD [Physician] - 2 Weeks (call for an appointment for 7 to 10 days) Preston Wang MD, DO [Primary Care Provider] - 1 Week Mike Brown MD [Physician] - 2 Weeks Discharge Medications: New cefuroxime axetil 250 mg tablet 250 mg PO Q12H 14 Days Qty: 28 0RF Continued atorvastatin 10 mg tablet 1 tab PO DAILY 0RF pyridoxine (vitamin B6) 100 mg tablet 2 tab PO DAILY 0RF metformin 500 mg tablet extended release 24 hr 1 tab PO QPM 0RF acetaminophen 500 mg Tablet 1,000 mg PO Q6H PRN (Reason: Pain) 0RF furosemide 40 mg tablet 40 mg PO BID 0RF levothyroxine 112 mcg tablet 112 mcg PO DAILY 0RF lisinopril 10 mg tablet 10 mg PO DAILY 0RF Discharge Orders: Discharge Order (Routine); Ordered 04/13/21 Ordered By: Lucio Mead Diet: advance to usual diet and diabetic diet Activity on Discharge: As tolerated Stand Alone Forms: Patient Portal Discharge page Care Plan Goals: Full recovery from UTI, colitis Health Concerns: colitis, and UTI-- Plan of Treatment: Take antibiotics (Ceftin) as recommended and follow up with Dr. Brown in 2 to 3 weeks for colonscopy which will be arranged by her office Follow up with Dr. Reis in 7 to 10 days, to be evaluated for kidney stent removal Follow up with your own Doctor in a week, call for appointment Assessment: As above
[2021-04-13] MEDS: amLODIPine Besylate 5 MG TABLET PO (09:41)
[2021-04-13] MEDS: Furosemide 40 MG TABLET PO (09:41)
[2021-04-13] MEDS: Atorvastatin Calcium 10 MG TABLET PO (09:41)
--- NOTE | 2021-04-13 11:01 | MHC.CM.PN ---
NURSE BANNER PAINTER NOTE ELECTRONIC MEDICAL RECORD REVIEWED ALONG WITH CASE DISUCSSED ON MULTIPLE DISCIPLIANRY ROUNDS, DISCHAGRE PLAN HOME WITH NO SERVICES PCP DR JUAN PABLO LEMA PATIENT INSTRUCTED TO CALL FOR POST HOSPITAL DISCHARGE FOLLOW UP TRANSPORTATION FAMILY MEDICARE IMM UPDATED 04/12/21
[2021-04-13 11:08] LABS: Glucose, Whole Blood 271 mg/dL (60-115)
[2021-04-16 22:36] LABS: Stone Source KIDNEY STONE
== END 2021-04-13 13:59 | disposition home or self-care (01) | DRG 660 ==
LOC: HO.ED 23:18 → HO.EDOVER 04-06 00:02 → HO.S3 04-06 19:21
PROVIDERS: Internal Medicine; Nurse Practitioner Family; Urology; Admitting Provider Internal Medicine; Emergency Provider Internal Medicine; PCP Internal Medicine; Visit Provider Internal Medicine
PROC: 0T768DZ Dilation of Right Ureter with Intraluminal Device, Via Natural or Artificial Opening Endoscopic (ICD-10-PCS; principal; 2021-04-10 16:30)
DX: N12 Tubulo-interstitial nephritis, not specified as acute or chronic (principal); E87.2 Acidosis; Z68.41 Body mass index [BMI] 40.0-44.9, adult; K57.32 Diverticulitis of large intestine without perforation or abscess without bleeding; I10 Essential (primary) hypertension; E66.01 Morbid (severe) obesity due to excess calories; N20.0 Calculus of kidney; E03.9 Hypothyroidism, unspecified; K52.9 Noninfective gastroenteritis and colitis, unspecified; R31.9 Hematuria, unspecified; Z87.440 Personal history of urinary (tract) infections; Z87.442 Personal history of urinary calculi; Z87.891 Personal history of nicotine dependence; Z88.2 Allergy status to sulfonamides; Z88.0 Allergy status to penicillin; Z88.5 Allergy status to narcotic agent; Z88.6 Allergy status to analgesic agent; Z79.84 Long term (current) use of oral hypoglycemic drugs; Z79.899 Other long term (current) drug therapy
CPT/HCPCS: 36415; 74176; 76705; 80048; 80076; 81001; 82365; 82947; 83605; 83690; 84484; 85025; 85027; 87040; 87086; 87635; 88300; 93005; 96361; 96366; 96367; 99285; 99291; C1758; C1769; C1894; C2617; J0330; J0696; J1100; J1650; J2405; J2765; J3010; Q9967

== ENCOUNTER → 2021-04-29 14:48 | Outpatient (BNVA) | payer MEDICARE, SELFPAY | PROVIDERS: PCP Internal Medicine; Visit Provider Urology | DX: N39.0 Urinary tract infection, site not specified (principal); N20.0 Calculus of kidney | CPT/HCPCS: Q3014 ==

== ENCOUNTER 2021-06-08 09:53 | Day surgery (SDC) | payer MEDICARE, SELFPAY ==
--- NOTE | 2021-06-05 10:52 | HO.ANESPROP2 ---
Documented by User: Kristina Keith NP 06/05/21 10:55 HPI - Anesthesia Eval Consult details Narrative: 76yo F for Bilateral Cystoscopy, Ureteroroscopy, Retro, Laser,stent removal on right, possible stent placement on left s/p same 04/2021 with GA-ETT 7 *Multiple Med Allergies* [facility] Active Problems Active Problems: All Active Problems (Updated 06/02/21 @ 15:45 by Mckenzie Quinones RN) Bilateral nephrolithiasis (Acute) Renal calyceal dilation determined by ultrasound (Acute) UTI (urinary tract infection) (Acute) Past Medical History Medical History Anxiety Cholelithiasis Diabetes mellitus, type II Does mobilize using walker Fatty liver Fibromyalgia Ganglion cyst HTN (hypertension) Hypercholesterolemia Hypothyroidism Left foot drop Low back pain Neuropathy OA (osteoarthritis) Obstructive airway disease Perirectal abscess Plantar fasciitis PONV (postoperative nausea and vomiting) Primary osteoarthritis of right knee RBBB Renal calculus, bilateral Renal calyceal dilation determined by ultrasound Renal stones Retained ureteral stent Sciatica Staghorn calculus Staghorn calculus UTI (urinary tract infection) Surgical History Surgical History History of cystoscopy History of lithotripsy History of lumbar discectomy History of lumpectomy of both breasts History of surgery Hx of colonoscopy Status post cystoscopy with ureteral stent placement History of Problems with Anesthesia: Yes (Aspiration) Social History Social History Household Members: Significant Other Housing: House Do you presently have visiting nurse or other home services: No Alcohol intake: never Patient Tobacco Use Status: Former Tobacco user Quit Date: 1986 Tobacco use type: Cigarette Years Smoked: 27 Smoked in Last 30 Days: No Use of substances other than those prescribed or required for medical reasons: No Are you DNR?: No Advance Directives: No Advance Directives Information Provided: Yes Advance Directives Date on File: 04/06/21 service: No Current occupational status: disabled Meds Allergies Allergy/AdvReac Type Severity Reaction Status Date / Time chlorpheniramine Allergy Severe HALLUCINATI Verified 06/02/21 14:03 [From TUSSIONEX] ONS escitalopram [ESCITALOPRAM] Allergy Severe DISSOCIATIVE Verified 06/02/21 14:03 REACTION fluoxetine [FLUOXETINE] Allergy Severe DISSOCIATIVE Verified 06/02/21 14:03 REACTION hydrocodone [From TUSSIONEX] Allergy Severe HALLUCINATI Verified 06/02/21 14:03 ONS ibuprofen [IBUPROFEN] Allergy Severe THROAT Verified 06/02/21 14:03 SWELLING Sulfa (Sulfonamide Allergy Severe DYSPNEA Verified 06/02/21 14:03 Antibiotics) [SULFA (SULFONAMIDE ANTIBIOTICS)] clarithromycin [From BIAXIN] Allergy Intermediate ABD.PAIN Verified 06/02/21 14:03 erythromycin base Allergy Intermediate RASH Verified 06/02/21 14:03 [ERYTHROMYCIN BASE] Penicillins [PENICILLINS] Allergy Intermediate RASH Verified 06/02/21 14:03 tetracycline [TETRACYCLINE] Allergy Intermediate DIARRHEA Verified 06/02/21 14:03 ciprofloxacin [From CIPRO] Allergy Unknown ANAPHYLAXIS Verified 06/02/21 14:03 codeine [CODEINE] Allergy Unknown TINNITIS Verified 06/02/21 14:03 duloxetine [DULOXETINE] Allergy Unknown FACIAL Verified 06/02/21 14:03 NUMBNESS guaifenesin Allergy Unknown Unknown Verified 06/02/21 14:03 levofloxacin [From Levaquin] Allergy Unknown Unknown Verified 06/02/21 14:03 pregabalin Allergy Unknown Unknown Verified 06/02/21 14:03 Home Medications Medication Instructions Recorded Confirmed Last Taken Type furosemide 40 mg tablet 40 mg PO BID 08/28/20 06/02/21 04/05/21 History levothyroxine 112 mcg tablet 112 mcg PO DAILY 08/28/20 06/08/21 06/08/21 04:45 History lisinopril 10 mg tablet 10 mg PO DAILY 08/28/20 06/02/21 04/05/21 History atorvastatin 10 mg tablet 1 tab PO DAILY 04/05/21 06/02/21 04/05/21 History acetaminophen 500 mg tablet 1,000 mg PO Q6H PRN 04/06/21 06/02/21 04/05/21 History metformin 500 mg tablet,extended 1 tab PO QPM 04/06/21 06/08/21 06/07/21 17:00 History release 24 hr pyridoxine (vitamin B6) 100 mg 2 tab PO DAILY 04/06/21 06/02/21 04/05/21 History tablet omeprazole 20 mg capsule,delayed 20 mg PO QAM 04/29/21 06/02/21 Unknown History release trazodone 50 mg tablet 50 mg PO BEDTIME 04/29/21 06/02/21 Unknown History Exam Exam Date and Time: June 05, 2021 1052 Pertinent Lab Results Pertinent Lab Results: Laboratory Tests 04/11/21 04/12/21 08:31 08:23 WBC 9.6 Hgb 12.1 Hct 38.3 Plt Count 206 Sodium 135 Potassium 4.6 Chloride 97 Carbon Dioxide 28 BUN 15 Creatinine 1.15 Narrative Narrative: EKG 03/2021 Vent. Rate : 091 BPM ? ? Atrial Rate : 091 BPM ?? P-R Int : 192 ms? QRS Dur : 126 ms ? ? QT Int : 414 ms ? ? ? P-R-T Axes : 059 062 029 degrees ?? QTc Int : 509 ms ? Normal sinus rhythm Right bundle branch block Abnormal ECG When compared with ECG of 26-MAY-2016 18:49, No significant change was found Assessment and Plan Assessment Anesthesia Assessment: Chart Reviewed Final Anesthetic Review History of Problems with Anesthesia: Yes (Aspiration)
[2021-06-08] VITALS (7 sets, daily range): BP systolic 107–167; BP diastolic 65–91; PULSE 71–87; RESP 16–20; TEMP 36.1–36.6; O2SAT 94–98; BMI 39.1
--- NOTE | ~2021-06-08 | FL_ITS ---
EXAMINATION: XR FLUOROSCOPY WITH IMAGES CLINICAL INFORMATION: Bilateral renal stones. COMPARISON: Previous CT of the abdomen and pelvis March 2021. TECHNIQUE: Fluoroscopy performed by Dr. Jose Reis. Fluoroscopy time: 1.5 minutes Dose: 138 mGy Images: 5 FINDINGS: Initial images demonstrate wire, catheter and stent projecting over the right renal collecting ureter. There are right renal stones. Later images demonstrate a wire, and catheter projecting over the left renal collecting system and proximal ureter. FL/FL guidance in OR IMPRESSION: Fluoroscopy guidance for bilateral retrograde exam.
[2021-06-08 13:05] LABS: Glucose, Whole Blood 166 mg/dL (60-115)
[2021-06-08] MEDS: Scopolamine 1.5 MG PATCH.TD.3 TRANSDERMA (13:17)
[2021-06-08] MEDS: Lactated Ringers 1,000 ML 100 ML IVCONT (13:23)
--- NOTE | 2021-06-08 14:27 | MHC.SHP ---
Pre-Procedural Eval Section A Date of Service: 06/08/21 The patient is an INPATIENT: No Changes since office visit: No Cold of Flu in the past 2 weeks, No New Medical Problems, No Changes in Medication and No Patient answered all questions The History & Physical has been completed within 30 days and I have reviewed it.: Yes Section B Chief Complaint: Calculus of kidney Details of Present Illness: cystoscopy with right stent removal, right completion ureteroscopy with laser lithotripsy, left retrograde, left ureteroscopy with laser lithotripsy stent placement Allergies: Allergies Allergy/AdvReac Type Severity Reaction Status Date / Time chlorpheniramine Allergy Severe HALLUCINATI Verified 06/02/21 14:03 [From TUSSIONEX] ONS escitalopram [ESCITALOPRAM] Allergy Severe DISSOCIATIVE Verified 06/02/21 14:03 REACTION fluoxetine [FLUOXETINE] Allergy Severe DISSOCIATIVE Verified 06/02/21 14:03 REACTION hydrocodone [From TUSSIONEX] Allergy Severe HALLUCINATI Verified 06/02/21 14:03 ONS ibuprofen [IBUPROFEN] Allergy Severe THROAT Verified 06/02/21 14:03 SWELLING Sulfa (Sulfonamide Allergy Severe DYSPNEA Verified 06/02/21 14:03 Antibiotics) [SULFA (SULFONAMIDE ANTIBIOTICS)] clarithromycin [From BIAXIN] Allergy Intermediate ABD.PAIN Verified 06/02/21 14:03 erythromycin base Allergy Intermediate RASH Verified 06/02/21 14:03 [ERYTHROMYCIN BASE] Penicillins [PENICILLINS] Allergy Intermediate RASH Verified 06/02/21 14:03 tetracycline [TETRACYCLINE] Allergy Intermediate DIARRHEA Verified 06/02/21 14:03 ciprofloxacin [From CIPRO] Allergy Unknown ANAPHYLAXIS Verified 06/02/21 14:03 codeine [CODEINE] Allergy Unknown TINNITIS Verified 06/02/21 14:03 duloxetine [DULOXETINE] Allergy Unknown FACIAL Verified 06/02/21 14:03 NUMBNESS guaifenesin Allergy Unknown Unknown Verified 06/02/21 14:03 levofloxacin [From Levaquin] Allergy Unknown Unknown Verified 06/02/21 14:03 pregabalin Allergy Unknown Unknown Verified 06/02/21 14:03 Plan I have reviewed the history and physical and performed a pertinent physical examination on my patient. No changes have occurred unless specified.
--- NOTE | 2021-06-08 17:06 | P.OP_ITS ---
Operative Note Operative Note Date of Service: 06/08/21 Narrative: PreOperative Diagnosis: bilateral renal stones Post Operative Diagnosis: bilateral renal stones Procedure: - cystoscopy, Ureteroscopy with removal of right stent - right ureteroscopy, laser lithotripsy, stone basketing - Modifier 22-100% longer than typical - right stent placement - left retrograde - left dilatation ureteric orifice under fluoroscopy - left ureteroscopy, stone basketing Surgeon: Dr Jose Reis Anesthesia: General Indications for procedure: large lower staghorn in her right kidney. Would not tolerate PCN allergy to body habitus. Had initial procedure with stone lasering. Here for a secondary procedure and has stent in place. Small stones seen on left side. Plan for removal of right stent, right ureteroscopy with laser lithotripsy, left ureteroscopy with laser lithotripsy stenting as necessary Procedure: After informed consent was verified patient was brought to the operating placed in supine position. Anesthesia was administered per protocol. Patient was placed in modified dorsal lithotomy position and prepped and draped in a sterile fashion. Safety pause time-out and side of surgery confirmed. Antibiotics confirmed. 22 Kiswahili cystoscope was inserted per urethra. Bladder was normal in its en tirety. Both ureteric orifices were in normal position. stent visible on right ureteral orifice. PSA at right stent had migrated and was proximal to the sheath. A Sensor guidewire was placed up to the level of the renal pelvis under fluoroscopy. The rigid cystoscope was removed. A semi rigid ureteral scope was placed alongside the wire and the stent was encountered in the lower portion of the right ureter. This was basketed using a 0 tip basket and removed. the wire remained in place. The ureteric access sheath was placed and the inner cannula with access wire removed. The digital flexible ureteral scope was placed. large stone burden within the lower pole of the right kidney was reamed countered. Using the holmium laser with a 275 micron fiber the stone was lasered in small pieces. Lasering took 200% longer than typical for approximately 90 minutes. the renal pelvis was washed out multiple times with the open-ended catheter in order to remove stone debris. At completion a decision was made to place stent. A 6 Kiswahili by [] cm double-J stent was placed into the renal pelvis and bladder under a combination of fluoroscopy and direct visualization. The regular cystoscope was placed. Retrograde was admission was performed on the left side. No filling defects seen. A Sensor wire was placed. The ureteric access sheath was placed. The flexible ureteroscopy placed up to the renal pelvis. Two small stones were encountered. These were caught with a 0 tip basket and removed was sent for analysis. It is stream was made not to leave a stent. The flexible ureteral scope was removed. The ureter case sheath was removed. The bladder was emptied with a cystoscope sheath. The bladder was emptied. The patient tolerated the procedure well and was extubated in the operating room, and transferred in stable condition to the recovery area. Pathology: Stones Drains: right 6 Kiswahili by 24 cm double-J stent
[2021-06-08] MEDS: ondansetron HCL 4 MG/2 ML VIAL IVPUSH (17:36)
[2021-06-12 21:11] LABS: Stone Source KIDNEY STONE
== END 2021-06-08 18:22 | disposition home or self-care (01) ==
PROVIDERS: PCP Internal Medicine; Visit Provider Urology
PROC: (CPT 52356; principal; 2021-06-08 12:20)
DX: N20.0 Calculus of kidney (principal); Z87.442 Personal history of urinary calculi; N39.0 Urinary tract infection, site not specified; Z96.0 Presence of urogenital implants; I10 Essential (primary) hypertension; E78.00 Pure hypercholesterolemia, unspecified; E03.9 Hypothyroidism, unspecified; F41.1 Generalized anxiety disorder; J98.8 Other specified respiratory disorders; E11.9 Type 2 diabetes mellitus without complications; Z79.84 Long term (current) use of oral hypoglycemic drugs; Z79.899 Other long term (current) drug therapy; Z88.0 Allergy status to penicillin; Z88.1 Allergy status to other antibiotic agents; Z88.2 Allergy status to sulfonamides; Z88.8 Allergy status to other drugs, medicaments and biological substances; Z98.890 Other specified postprocedural states; Z87.891 Personal history of nicotine dependence
CPT/HCPCS: 52356; 52352; 82365; 82947; 88300; C1758; C1769; C1894; C2617; J0696; J1100; J2405; J3010; Q9967

== ENCOUNTER 2021-06-29 08:37 | Outpatient (REF) | payer MEDICARE, SELFPAY ==
[2021-06-29 11:30] LABS: Estimated Average Glucose 157 mg/dL; Hemoglobin A1c % 7.1 %
[2021-06-29 11:50] LABS: Alanine Aminotransferase 37 U/L (0-31); Albumin Level 3.3 g/dL (3.5-5.0); Alkaline Phosphatase 71 U/L (39-117); Anion Gap 14 (12-20); Aspartate Amino Transferase 39 U/L (5-31); Bilirubin Total 0.3 mg/dL (0.0-1.0); Blood Urea Nitrogen 16 mg/dL (9-16); Calcium 8.5 mg/dL (8.4-10.2); Carbon Dioxide 26 mmol/L (22-29); Chloride 104 mmol/L (96-108); Cholesterol 159 mg/dL; Estimated Glomerular Filt Rate 47; Glucose Fasting 185 mg/dL (60-99); HDL Cholesterol 42 mg/dL; LDL Cholesterol Calculated 94 mg/dl; Potassium 3.7 mmol/L (3.3-5.1); Sodium 140 mmol/L (135-145); Total Protein 7.2 g/dL (6.5-8.0); Triglycerides 115 mg/dL
== END 2021-06-29 08:38 | disposition home or self-care (01) ==
LOC: HO.HMGCLDS 08:37
PROVIDERS: Visit Provider Internal Medicine
DX: E11.9 Type 2 diabetes mellitus without complications (principal)
CPT/HCPCS: 36415; 80053; 80061; 83036

== ENCOUNTER 2021-07-03 06:28 | Outpatient (REF) | payer MEDICARE, SELFPAY ==
[2021-07-03 11:43] LABS: Appearance Urine CLOUDY; Color Urine YELLOW; Glucose Urine UA NEG (NEG); Leukocyte Esterase Urine 3+ (NEG); Nitrite Urine NEG (NEG); Urine Blood 3+ (NEG); Urine Ketones NEG (NEG); Urine Protein 2+ MG/DL (NEG-TRACE)
[2021-07-03 12:12] LABS: RBC Urine 30-49 /HPF (0); WBC Urine TNTC /HPF (0-4)
[2021-07-03 12:13] LABS: Calcium Oxalate Crystals Urine 2+ /LPF; Squamous Epithelial Cell Urine 2+ /LPF
[2021-07-03 12:14] LABS: Bacteria Urine 1+ /LPF; WBC Clumps Urine NOTED
== END 2021-07-03 06:29 | disposition home or self-care (01) ==
LOC: HO.HMGCLDS 06:28
PROVIDERS: Visit Provider Urology
DX: N39.0 Urinary tract infection, site not specified (principal)
CPT/HCPCS: 81001; 87086; 87088; 87186

== ENCOUNTER → 2021-07-14 13:56 | Outpatient (BNVA) | payer MEDICARE, SELFPAY | PROVIDERS: PCP Internal Medicine; Visit Provider Urology | DX: N39.0 Urinary tract infection, site not specified (principal); N20.0 Calculus of kidney | CPT/HCPCS: 52310; 99212 ==

== ENCOUNTER 2021-08-06 08:16 | Outpatient (REF) | payer MEDICARE, SELFPAY ==
[2021-08-06 11:44] LABS: MANUAL DIFF FLAG NO
[2021-08-06 11:50] LABS: Basophils Percent Auto 0.4 % (0-2); Eosinophils Absolute Auto 0.2 X10*3/uL (0.0-0.4); Eosinophils Percent Auto 1.8 % (0-4); Hematocrit 36.9 % (37.0-47.0); Hemoglobin 11.7 g/dl (12.0-16.0); Imm Gran Abs Auto 0.16 X10*3/uL (0.00-0.03); Imm Gran Pct Auto 1.6 % (0.0-0.4); Lymphocytes Absolute Auto 2.3 X10*3/uL (1.2-4.9); Lymphocytes Percent Auto 23.8 % (20-40); Mean Corpuscular HGB Conc 31.7 g/dl (31.0-35.0); Mean Corpuscular Hemoglobin 29.8 pg (27.0-33.0); Mean Corpuscular Volume 94.1 fL (80.0-98.0); Mean Platelet Volume 10.2 fL (9.4-12.3); Monocytes Absolute Auto 0.8 X10*3/uL (0.1-1.2); Monocytes Percent Auto 7.8 % (2-11); Neutrophils Absolute Auto 6.3 x10*3/uL (2.0-8.3); Neutrophils Percent Auto 64.6 % (45-73); Platelet Count 249 X10*3/uL (160-400); Red Blood Count 3.92 X10*6/uL (4.20-5.50); Red Cell Distribution Width 14.3 % (11.0-16.0); White Blood Count 9.8 X10*3/uL (4.8-10.8)
[2021-08-06 12:36] LABS: Thyroid Stimulating Hormone 1.96 uIU/mL (0.32-4.0)
[2021-08-06 12:45] LABS: Alanine Aminotransferase 30 U/L (0-31); Albumin Level 3.3 g/dL (3.5-5.0); Alkaline Phosphatase 67 U/L (39-117); Anion Gap 10 (12-20); Aspartate Amino Transferase 41 U/L (5-31); Bilirubin Total 0.7 mg/dL (0.0-1.0); Blood Urea Nitrogen 13 mg/dL (9-16); Calcium 8.5 mg/dL (8.4-10.2); Carbon Dioxide 27 mmol/L (22-29); Chloride 106 mmol/L (96-108); Cholesterol 111 mg/dL; Estimated Glomerular Filt Rate 48; Glucose Fasting 184 mg/dL (60-99); HDL Cholesterol 36 mg/dL; LDL Cholesterol Calculated 58 mg/dl; Potassium 3.9 mmol/L (3.3-5.1); Sodium 139 mmol/L (135-145); Triglycerides 86 mg/dL
== END 2021-08-06 08:17 | disposition home or self-care (01) ==
LOC: HO.HMGCLDS 08:16
PROVIDERS: PCP Internal Medicine; Visit Provider Internal Medicine
DX: E11.9 Type 2 diabetes mellitus without complications (principal); I10 Essential (primary) hypertension; E03.9 Hypothyroidism, unspecified
CPT/HCPCS: 36415; 80053; 80061; 82306; 84443; 85025

== ENCOUNTER 2021-08-21 15:01 | Outpatient (REF) | payer MEDICARE, SELFPAY ==
--- NOTE | ~2021-08-21 | XR_ITS ---
EXAMINATION: XR HIP, RIGHT CLINICAL INFORMATION: Pain COMPARISON: None TECHNIQUE: Two views of the right hip. FINDINGS: No acute fracture or dislocation. Mild osteoarthritis of the bilateral hips. Soft tissues are unremarkable. XR/XR hip RT w PEL1V IMPRESSION: Mild osteoarthritis of the bilateral hips.
--- NOTE | ~2021-08-21 | XR_ITS ---
EXAMINATION: XR lumbar spine 4V min CLINICAL INFORMATION: Reason for Exam SCIATICA PAIN COMPARISON: Lumbar spine radiographs 04/19/2016 TECHNIQUE: 3 views of the lumbar spine FINDINGS: 5 nonrib-bearing lumbar-type vertebral bodies. Vertebral body heights are maintained. Multilevel stepwise grade 1 retrolisthesis of L1 on L2-L3 on L4. Moderate multilevel degenerative disc disease with loss of disc space height, facet arthropathy and disc osteophyte complexes. Atherosclerotic calcifications of the abdominal aorta. Multiple ovoid calcifications in the right upper quadrant morphologically favored to reflect gallstones, measuring up to 2.6 cm. Multiple additional calcifications in the right upper quadrant, possibly reflective of renal stones measuring up to 1.6 cm overlying the right lower pole. XR/XR lumbar spine 4V min IMPRESSION: * Moderate spondylosis of the lumbar spine, as above detailed. * Spondylolisthesis, as above detailed. * Calcifications overlying the right upper quadrant favored to reflect gallstones, and calcifications overlying the right lower renal pole measuring up to 1.7 cm favored to reflect renal stones.
== END 2021-08-21 15:02 | disposition home or self-care (01) ==
LOC: HO.HMGCX 15:01
PROVIDERS: PCP Internal Medicine; Visit Provider Internal Medicine
DX: M54.31 Sciatica, right side (principal)
CPT/HCPCS: 72110; 73502

== ENCOUNTER 2021-08-25 11:24 | Outpatient (REF) | payer MEDICARE, SELFPAY ==
--- NOTE | ~2021-08-25 | US_ITS ---
EXAMINATION: US RETROPERITONEAL LIMITED (RENAL ONLY) CLINICAL INFORMATION: Calculus of kidney. COMPARISON: Ultrasound abdomen limited dated 04/06/2021. TECHNIQUE: Real-time imaging of the kidneys. FINDINGS: RIGHT KIDNEY: 13.0 x 5.1 x 7.0 cm (SAG x AP x TRV). Suggestion of mild cortical thinning. No hydronephrosis. Redemonstration of multiple large calculi some with a staghorn shape, best visualized on prior CT. Largest in this examination are located in the lower pole measuring 1.7 cm and mid pole measuring 1.9 cm. There is a simple exophytic cyst in the upper pole measuring up to 2.2 cm. In the lower pole, there is a questionable exophytic lesion measuring 4.3 cm which do not demonstrate correlate on the prior CT. LEFT KIDNEY: 10.7 x 5.9 x 6.3 cm (SAG x AP x TRV). Renal cortical thickness is normal. No focal parenchymal lesions or hydronephrosis. There is a 0.5 cm calculus in the lower pole. US/US renal BI IMPRESSION: Multiple right-sided renal calculi, some with a staghorn shape, best seen on recent CT. There is suggestion of cortical thinning questioning underlying chronic renal medical disease. There is an equivocal 4.3 cm exophytic observation from the lower pole of the right kidney with no clear CT correlate. Correlation with an MR of the abdomen with and without intravenous contrast could be obtained, alternatively a short-term follow-up renal ultrasound could be performed to reassess. There is a nonobstructive 0.5 cm calculus in the lower pole of the left kidney which is otherwise normal in appearance.
== END 2021-08-25 11:25 | disposition home or self-care (01) ==
LOC: HO.HMGCX 11:24
PROVIDERS: Visit Provider Urology
DX: N20.0 Calculus of kidney (principal)
CPT/HCPCS: 76775

== ENCOUNTER 2021-10-16 10:43 | Outpatient (AMB) | payer MEDICARE, SELFPAY ==
--- NOTE | 2021-10-16 11:13 | A.OFFVIS_ITS ---
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: No Accompanied by: Self / Same As Patient Allergies chlorpheniramine [From TUSSIONEX] Allergy (Severe, Verified 12/26/22 17:27) HALLUCINATIONS escitalopram [ESCITALOPRAM] Allergy (Severe, Verified 12/26/22 17:27) DISSOCIATIVE REACTION fluoxetine [FLUOXETINE] Allergy (Severe, Verified 12/26/22 17:27) DISSOCIATIVE REACTION hydrocodone [From TUSSIONEX] Allergy (Severe, Verified 12/26/22 17:27) HALLUCINATIONS ibuprofen [IBUPROFEN] Allergy (Severe, Verified 12/26/22 17:27) THROAT SWELLING Sulfa (Sulfonamide Antibiotics) [SULFA (SULFONAMIDE ANTIBIOTICS)] Allergy (Severe, Verified 12/26/22 17:27) DYSPNEA clarithromycin [From BIAXIN] Allergy (Intermediate, Verified 12/26/22 17:27) ABD.PAIN duloxetine [DULOXETINE] Allergy (Intermediate, Verified 12/26/22 17:27) FACIAL NUMBNESS erythromycin base [ERYTHROMYCIN BASE] Allergy (Intermediate, Verified 12/26/22 17:27) RASH Penicillins [PENICILLINS] Allergy (Intermediate, Verified 12/26/22 17:27) RASH tetracycline [TETRACYCLINE] Allergy (Intermediate, Verified 12/26/22 17:27) DIARRHEA ciprofloxacin [From CIPRO] Allergy (Unknown, Verified 12/26/22 17:27) ANAPHYLAXIS codeine [CODEINE] Allergy (Unknown, Verified 12/26/22 17:27) TINNITIS guaifenesin Allergy (Unknown, Verified 12/26/22 17:27) Unknown levofloxacin [From Levaquin] Allergy (Unknown, Verified 12/26/22 17:27) Unknown pregabalin Allergy (Unknown, Verified 12/26/22 17:27) Unknown HPI HPI Comments History of Present Illness Details Xi is a pleasant female. She is a patient of Dr. Wang. She is seen for the following urologic conditions - nephrolithiasis - recurrent UTI Renal US with decrease in stones stay on prophylaxis Nephrolithiasis Admission to hospital 03/31 Intervention - 03/31 right-sided ureteroscopy laser li thotripsy and stent placement - 06/28 completion right ureteroscopy wit h left ureteroscopy Stone composition - 03/31 Carbonate Apatite (Dahllite) 100% - 06/28 calcium oxalate Imaging - 03/31 CT scan 4 cm right staghorn calcu rosibel, 6 mm left Therapeutic plan - suppression antibiotics for recurrent UTI [facility] Medical History (Updated 12/22/22 @ 16:12 by Ap Deal MD) Frequency of urination Vaginal burning Vaginal itching PMB (postmenopausal bleeding) Cirrhosis of liver Does mobilize using walker PONV (postoperative nausea and vomiting) Left foot drop Fatty liver Fibromyalgia Neuropathy RBBB Cholelithiasis Staghorn calculus Renal calculus, bilateral Renal calyceal dilation determined by ultrasound UTI (urinary tract infection) Diabetes mellitus, type II Ganglion cyst Plantar fasciitis Anxiety OA (osteoarthritis) Obstructive airway disease Hypercholesterolemia Low back pain Sciatica Hypothyroidism HTN (hypertension) Primary osteoarthritis of right knee Retained ureteral stent Renal stones Staghorn calculus Perirectal abscess Surgical History Status post cystoscopy with ureteral stent placement History of lumbar discectomy History of lumpectomy of both breasts History of cystoscopy History of lithotripsy Hx of colonoscopy History of surgery Family History Father Alcohol dependence Mother CHF (congestive heart failure) Cancer of breast Mother No problems noted. Other Alcoholic cirrhosis Social History Household Members: Spouse Housing: House Do you presently have visiting nurse or other home services: No Alcohol intake: never Comment: refuses bed alarm. Walks w/ walker w/ supervision from . Patient Tobacco Use Status: Former Tobacco user Quit Date: 1986 Tobacco use type: Cigarette Years Smoked: 27 Second Hand Smoke Exposure: No Advance Directives Date on File: 04/06/21 service: No Current occupational status: disabled Review of Systems Const Denies chills and Denies fever(s) Card Reports no additional complaints and Denies syncope Resp Denies cough GI Denies abdominal pain and Denies heartburn Reports as per HPI and Denies change in libido Neuro Denies syncope Psych Denies change in libido Endo Denies change in libido Physical Exam Const General: cooperative, healthy appearing, comfortable and no acute distress Orientation/consciousness: patient oriented x3 HEENT Face and sinus: Yes normal facial exam Mouth: moist mucous membranes Neck Neck: Yes normal visual inspection, Yes full ROM and Yes trachea midline Chest Chest palpation & inspection: normal inspection of the chest Resp Effort & Inspection: normal respiratory effort, able to speak in complete sentences and no respiratory distress GI Inspection: Yes normal to inspection Back/Spine/Pelvis Cervical Spine: normal cervical lordosis Thoracic/Lumbar Spine: thoracic and lumbar spine normal to inspection Skin General skin exam: no rashes or lesions noted Neuro General: patient oriented x3, gait normal, tone normal and moves all extremities Extrem General: Yes normal to inspection and Yes capillary refill normal Results AMB Urinalysis, Automated UA Leukoctes 500 Marcos/uL Last Edit by Rodney Yeung on 10/16/21 11:35 UA Nitrite Negative Last Edit by Rodney Yeung on 10/16/21 11:35 UA Urobilinogen 0.2 mg/dL Last Edit by Rodney Yeung on 10/16/21 11:35 UA Protein 30 mg/dL Last Edit by Rodney Yeung on 10/16/21 11:35 UA pH 6.0 Last Edit by Rodney Yeung on 10/16/21 11:35 UA Blood 10 Juvenal/uL Last Edit by Rodney Yeung on 10/16/21 11:35 UA Specific [place] 1.015 Last Edit by Rodney Yeung on 10/16/21 11:35 UA Ketone Negative Last Edit by Rodney Yeung on 10/16/21 11:35 UA Bilirubin 0 mg/dL Last Edit by Rodney Yeung on 10/16/21 11:35 UA Glucose 0 mg/dL Last Edit by Rodney Yeung on 10/16/21 11:35 Results Reviewed Results Reviewed: Laboratory Last Values Urine pH (Auto) 6.0 10/16/21 11:34 Specific [place] (Auto) 1.015 10/16/21 11:34 Urine Protein (Auto) 30 mg/dL 10/16/21 11:34 Glucose (UA)(Auto) 0 mg/dL 10/16/21 11:34 Urine Ketones (Auto) Negative 10/16/21 11:34 Urine Blood (Auto) 10 Juvenal/uL 10/16/21 11:34 Urine Nitrite (Auto) Negative 10/16/21 11:34 Urine Bilirubin (Auto) 0 mg/dL 10/16/21 11:34 Urine Urobilinogen (Auto) 0.2 mg/dL 10/16/21 11:34 Leukocyte Esterase (Auto) 500 Marcos/uL 10/16/21 11:34 Assessment & Plan Assessment & Plan (1) Bilateral nephrolithiasis: Code(s): N20.0 - Calculus of kidney Plan 6m f/u Orders: Orders AMB Urinalysis Automated 10/16/21 Z13.9 - Encounter for screening, unspecified Medications: Refilled nitrofurantoin macrocrystal Daily for prophylaxis 100 mg PO DAILY 90 caps 1RF 90 days N39.0 - Urinary tract infection, site not specified Patient Instructions: Imaging studies, laboratory and physical exam results were discussed and reviewed in detail. No major barriers to patient understanding were identified. An opportunity to ask questions regarding the treatment plan was provided. All questions were answered. The patient expressed understanding and agreement with the above treatment plan. The patient is aware they should contact our office by phone for worsening of their current condition or the appearance of new urologic symptoms. Compliance is encouraged with any medications and followup testing that is ordered. It is a privilege to participate in the urologic care of your patient. If you have any questions or concerns regarding treatment for the above conditions, or other urologic issues, please do not hesitate to contact me. The office telephone contact is [phone]. This note is constructed using voice recognition software. While every effort has been made to ensure accuracy commodity supervisor errors may have been included. Yours sincerely, Dr Jose Reis MD, [facility] - Urology Providers of Expert, Compassionate Care for the Genitourinary System Coding Level of Care Code Est Pt Level 3 (90335) Diagnoses Bilateral nephrolithiasis N20.0
== END 2021-10-16 11:49 | disposition home or self-care (01) ==
LOC: HO.HUSH 10:43
PROVIDERS: PCP Internal Medicine; Visit Provider Urology
DX: N20.0 Calculus of kidney (principal)
CPT/HCPCS: 99499

== ENCOUNTER 2021-11-24 14:41 | Outpatient (REF) | payer MEDICARE, SELFPAY ==
--- NOTE | ~2021-11-24 | XR_ITS ---
EXAMINATION: XR THORACOLUMBAR SPINE CLINICAL INFORMATION: Upper back pain COMPARISON: Previous x-ray April 2016 TECHNIQUE: 3 views of the thoracic spine FINDINGS: Bone alignment is normal. No fracture or dislocation. There is multilevel degenerative spondylosis and degenerative disc disease of the mid and lower thoracic spine. Paraspinal soft tissues are normal. XR/XR thoracic spine 2V IMPRESSION: Degenerative changes similar to 2017 exam.
--- NOTE | ~2021-11-24 | XR_ITS ---
EXAMINATION: XR SHOULDER, RIGHT CLINICAL INFORMATION: Pain COMPARISON: None TECHNIQUE: Three views of the right shoulder. FINDINGS: Bone alignment is normal. No fracture or dislocation. Normal glenohumeral joint. Mild arthritis at the acromioclavicular joint. Small osteophyte at the greater tuberosity. Normal soft tissues. XR/XR shoulder RT min 2V IMPRESSION: Mild degenerative changes.
== END 2021-11-24 14:42 | disposition home or self-care (01) ==
LOC: HO.HMGCX 14:41
PROVIDERS: PCP Internal Medicine; Visit Provider Internal Medicine
DX: M25.511 Pain in right shoulder (principal); M54.9 Dorsalgia, unspecified
CPT/HCPCS: 72070; 73030

== ENCOUNTER 2021-12-08 11:33 | Inpatient (IN) | payer MEDICARE, SELFPAY ==
--- NOTE | ~2021-12-08 | XR_ITS ---
EXAMINATION: XR SHOULDER, RIGHT CLINICAL INFORMATION: Right shoulder pain. COMPARISON: None TECHNIQUE: Two views of the right shoulder. FINDINGS: The bones and soft tissues are normal. No fracture. Glenohumeral and acromioclavicular alignment is anatomic with normal joint space. No abnormal soft tissue calcifications. XR/XR shoulder RT min 2V IMPRESSION: Unremarkable right shoulder.
--- NOTE | ~2021-12-08 | CT_ITS ---
EXAMINATION: CT ABDOMEN AND PELVIS WITHOUT CONTRAST CLINICAL INFORMATION: Right flank pain. Most recent lithotripsy in June 2021. COMPARISON: Renal ultrasound dated 08/25/2021. CT dated 04/05/2021 TECHNIQUE: Multidetector volumetric imaging was performed from the superior aspect of the liver through the pubic symphysis. Sagittal and coronal reformatted images were obtained on the technologist's workstation. This CT examination was performed using dose optimization techniques as appropriate, variously including the following: *Automated exposure control *Adjustment of mA and/or kV according to patient size (this includes techniques or standardized protocols for targeted exams where dose is matched to indication/reason for exam; i.e. extremities or head) *Use of iterative reconstruction technique DLP: 747 mGy-cm FINDINGS: LUNG BASES: The visualized lung bases are unremarkable. LIVER, GALLBLADDER, AND BILIARY TREE: Morphologically cirrhotic liver. No focal liver lesions. No biliary dilatation. Cholelithiasis. PANCREAS: Unremarkable. SPLEEN: Unremarkable. ADRENAL GLANDS: Unremarkable. KIDNEYS AND URETERS: No hydronephrosis. Multiple nonobstructive bilateral intrarenal calculi redemonstrated. Interval fragmentation of several staghorn calculi in the lower pole right kidney, however there are still 2 dominant calculi measuring 1.7 cm and 1.1 cm in the lower pole right kidney with innumerable smaller calculi scattered throughout the right renal collecting system. There is fat stranding which is coalescent and volume forming inferior to the right kidney, with scattered punctate calcifications and some areas. This stranding is contiguous with a new rounded structure inseparable from/abutting the lower pole of the right kidney measuring 3.2 cm with an attenuation of 24 HU . A correlate for this was seen by ultrasound in August. Contiguous with the posterior aspect of the right perinephric fascia is a collection in the right psoas measuring approximately 10 x 5 x 8 cm and 15-25 HU. There are punctate and coarse calcifications along the inferior dependent aspects of the collection. There are 2 nonobstructive calculi in the left kidney, punctate in size and 3 mm in size, both lower pole. Ureters are normal in course and caliber. BLADDER: Unremarkable. GASTROINTESTINAL TRACT: Sigmoid colonic diverticulosis. Mild wall thickening in the mid sigmoid colon with pericolic fat stranding reflective of a degree of active inflammation, likely mild acute diverticulitis complicated chronic diverticular disease. Stomach and small bowel unremarkable. ABDOMINAL WALL: Small fat-containing umbilical hernia without associated inflammation. LYMPH NODES: Normal. VASCULAR: Aorta is atherosclerotic but normal caliber. PELVIC VISCERA: Hysterectomy. No adnexal abnormalities. OSSEOUS STRUCTURES: No acute or suspicious osseous abnormalities. CT/CT abdomen pelvis wo IV con IMPRESSION: * Right psoas fluid collection measuring 10 x 5 x 7 cm, contiguous with the right posterior perinephric fascia. No associated gas, however given the presence of fever and elevated white blood cell count, abscess must be considered. This could also represent a chronic seroma as well. * Multiple large nonobstructive calculi redemonstrated in right kidney, showing evidence of interval lithotripsy. There is likely fluid, old blood and potentially scarring inferior to the right kidney which may represent an old or evolving perinephric hematoma. * New more rounded fluid density structure abutting or emanating from the lower pole right kidney is nonspecific but did show a sonographic correlate in August 2021, appearing similar in size since then. 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 * Chronic diverticular disease with mild active inflammation in the mid sigmoid colon. * Morphologically cirrhotic liver. * Cholelithiasis. This critical result was discussed with Joyce ICD at 12/08/2021 4:04 PM and it was ascertained that the content and urgency of the report was understood at the time of direct communication.
--- NOTE | ~2021-12-08 | CT_ITS ---
EXAMINATION: CT ABDOMEN AND PELVIS WITHOUT AND WITH CONTRAST CLINICAL INFORMATION: Flank abscess. COMPARISON: 12/08/2021 TECHNIQUE: Noncontrast CT of the abdomen and pelvis is performed followed by split bolus contrast-enhanced images using 85 mL Omnipaque 350 contrast.? Postcontrast imaging is performed during the combined nephrogram and excretion phase. Sagittal and coronal reformatted images were obtained on the technologist's workstation for both the precontrast and postcontrast phases. This CT examination was performed using dose optimization techniques as appropriate, variously including the following: *Automated exposure control *Adjustment of mA and/or kV according to patient size (this includes techniques or standardized protocols for targeted exams where dose is matched to indication/reason for exam; i.e. extremities or head) *Use of iterative reconstruction technique DLP: 1330 mGy-cm FINDINGS: LUNG BASES: No pulmonary consolidation or pleural effusion. The mitral valve annulus is calcified. A lipoma interposed between the right latissimus dorsi muscle and serratus anterior muscle is unchanged compared to 05/26/2016. LIVER: Diffuse hepatic steatosis. Liver has nodular contour, consistent with cirrhosis. No focal liver lesion. GALLBLADDER AND BILIARY TREE: Cholelithiasis. Chronic focal wall thickening of the gallbladder fundus, consistent with focal adenomyomatosis. PANCREAS: Mild atrophy of the pancreas. No edema, pancreatic ductal dilatation or mass. SPLEEN: Normal. ADRENAL GLANDS: Normal. LEFT KIDNEY AND URETER: Small stone of the left lower pole measures up to 0.4 cm maximum dimension. 0.2 cm stone in the left lower pole. No hydronephrosis. The left ureter is unremarkable. RIGHT KIDNEY AND URETER: Again noted are multiple calyceal stones of the right kidney, including 1.8 x 0.9 cm stone of the posterior interpolar area, density of approximately 1100 Hounsfield units, 14 cm deep from the skin surface at the posterior axillary line. The largest stone of the right lower pole measures approximately 1.9 x 1 cm and, anteriorly, it has density of approximately 1100 Hounsfield units and is located 16.3 cm deep from the skin surface at the posterior axillary line. The right ureter is unremarkable. A percutaneous drainage catheter projects lateral to the right psoas muscle in region of posterior renal fascia. The residual fluid along the surface of the psoas is significantly smaller, measures approximately 1.1 x 3.5 cm (4.4 x 7.8 cm on 12/08/2021). There is patchy appearance of the complex perinephric fluid collection located inferior to the kidney and along the surface of the psoas muscle. The fluid in the inferior perinephric space is similar compared to 12/09/2021 with largest pocket of fluid measuring approximately 3.6 cm AP (if measured on image 358, series 9). No hydroureteronephrosis. BLADDER: Unremarkable. BOWEL AND PERITONEUM: No dilated bowel loops. Again noted is diverticular disease of the sigmoid colon and haziness of the perisigmoid fat from mild diverticulitis. No abscess in this region. ABDOMINAL WALL: Again noted is a fat-containing umbilical hernia. VASCULATURE: Atherosclerosis of the abdominal aorta without aneurysm. Inferior vena cava is normal. LYMPH NODES: No abdominal or pelvic lymphadenopathy. Mildly enlarged lymph nodes within the right paracardiac fat pad is 1 cm short axis dimension. This lymph node is larger than seen on 04/05/2021. PELVIC VISCERA: Hysterectomy. No adnexal mass. SKELETAL: No acute findings in the degenerated spine. Hemangioma of L2 vertebral body. CT/CT urogram IMPRESSION: * Significant decrease size of the abscess along the surface of the right psoas muscle after percutaneous catheter drainage. However, the heterogeneous pockets of fluid within the inferior perinephric space are not significantly changed. * Bilateral nephrolithiasis without hydronephrosis. * Hepatic steatosis and cirrhosis. * Mild diverticulitis of the sigmoid colon. * Cholelithiasis without cholecystitis. * Prominent lymph node of 1 cm short axis dimension is present in the right paracardiac fat pad.
--- NOTE | ~2021-12-08 | CT_ITS ---
PROCEDURE: CT GUIDED DRAINAGE, RETROPERITONEAL ABSCESS CLINICAL INFORMATION: Right retroperitoneal abscess. COMPARISON: Previous CT of the abdomen and pelvis 12/08/2021. TECHNIQUE: Procedure, risks and benefits including bleeding, infection, and injury to the kidney and adjacent organs was discussed with the patient and informed consent was obtained. The patient was positioned in the left decubitus position. Limited axial images through the kidneys were performed. The right flank was prepped and draped in the usual sterile fashion. The skin and soft tissues were anesthetized with 1% lidocaine plain. Using CT guidance and a 5-Sudanese Yueh needle, access to the right retroperitoneal fluid collection was obtained. Over an 035 wire and following serial dilatation, a 12-Sudanese pigtail drainage catheter was positioned in the collection. Approximately 200 mL of purulent-appearing fluid was aspirated. Diagnostic specimen was sent as requested by the ordering physician. The patient received Versed 1 mg and fentanyl 50 mcg intravenously during the procedure. Total sedation time was 30 minutes. Conscious sedation was provided by a registered nurse under my direct supervision with continuous hemodynamic monitoring. This CT examination was performed using dose optimization techniques as appropriate, variously including the following: *Automated exposure control *Adjustment of mA and/or kV according to patient size (this includes techniques or standardized protocols for targeted exams where dose is matched to indication/reason for exam; i.e. extremities or head) *Use of iterative reconstruction technique DLP: 237 mGy-cm FINDINGS: Images demonstrate a pigtail drainage catheter in the right retroperitoneal collection. There is interval decrease in the collection. CT/CT drain retroperitoneal IMPRESSION: CT-guided 12-Sudanese right retroperitoneal drainage catheter placement.
[2021-12-08 11:40] VITALS: BP 168/83; PULSE 93; RESP 18; TEMP 36.6; O2SAT 98; BMI 32.5
[2021-12-08 11:55] LABS: MANUAL DIFF FLAG NO
[2021-12-08 12:01] LABS: Basophils Absolute Auto 0.1 X10*3/uL (0.0-0.2); Basophils Percent Auto 0.3 % (0-2); Eosinophils Percent Auto 0.1 % (0-4); Hematocrit 34.9 % (37.0-47.0); Hemoglobin 11.5 g/dl (12.0-16.0); Imm Gran Abs Auto 0.56 X10*3/uL (0.00-0.03); Imm Gran Pct Auto 2.4 % (0.0-0.4); Lymphocytes Absolute Auto 2.2 X10*3/uL (1.2-4.9); Lymphocytes Percent Auto 9.3 % (20-40); Mean Corpuscular Hemoglobin 29.1 pg (27.0-33.0); Mean Corpuscular Volume 88.4 fL (80.0-98.0); Mean Platelet Volume 9.2 fL (9.4-12.3); Monocytes Percent Auto 4.3 % (2-11); Neutrophils Absolute Auto 19.4 x10*3/uL (2.0-8.3); Neutrophils Percent Auto 83.6 % (45-73); Platelet Count 477 X10*3/uL (160-400); Red Blood Count 3.95 X10*6/uL (4.20-5.50); Red Cell Distribution Width 14.8 % (11.0-16.0); White Blood Count 23.2 X10*3/uL (4.8-10.8)
[2021-12-08 12:17] LABS: Alanine Aminotransferase 61 U/L (0-31); Albumin Level 3.1 g/dL (3.5-5.0); Alkaline Phosphatase 79 U/L (39-117); Anion Gap 20 (12-20); Aspartate Amino Transferase 61 U/L (5-31); Bilirubin Direct 0.4 mg/dL (0.0-0.5); Bilirubin Total 0.6 mg/dL (0.0-1.0); Blood Urea Nitrogen 16 mg/dL (9-16); Calcium 8.8 mg/dL (8.4-10.2); Carbon Dioxide 21 mmol/L (22-29); Chloride 96 mmol/L (96-108); Creatinine Clr Calc Pharmacy 43.7; Estimated Glomerular Filt Rate 44; Glucose Random 164 mg/dL (60-115); Lipase 8 U/L (8-78); Potassium 3.8 mmol/L (3.3-5.1); Sodium 133 mmol/L (135-145); Total Protein 7.5 g/dL (6.5-8.0)
--- NOTE | 2021-12-08 14:09 | ED_ITS ---
HPI - General Adult General Chief complaint: General Medical Stated complaint: R hip pain, cant keep any food down Time Seen by Provider: 12/08/21 14:07 Source: patient Mode of arrival: wheelchair Limitations: no limitations History of Present Illness HPI narrative: 76-year-old female with a history of diabetes, hypothyroidism, hypertension, hyperlipidemia, anxiety here with complaints of right back pain radiating to the hip for the last 2 weeks with nausea, poor p.o. intake and night sweats. Patient also reports some diarrhea about 3 episodes a day. Patient was supposed to have a right-sided renal stone removed last Tuesday by Dr Reis but did not go because she was sick. Related Data Home Medications Medication Instructions Recorded Confirmed furosemide 40 mg tablet 40 mg PO BID 08/28/20 12/08/21 levothyroxine 112 mcg tablet 112 mcg PO DAILY 08/28/20 12/08/21 lisinopril 10 mg tablet 10 mg PO DAILY 08/28/20 12/08/21 atorvastatin 10 mg tablet 1 tab PO DAILY@1700 04/05/21 12/08/21 metformin 500 mg tablet,extended 1 tab PO DAILY@1700 04/06/21 12/08/21 release 24 hr pyridoxine (vitamin B6) 100 mg 1 tab PO DAILY 04/06/21 12/08/21 tablet omeprazole 20 mg capsule,delayed 20 mg PO DAILY@0630 04/29/21 12/08/21 release cholecalciferol (vitamin D3) 50 50 mcg PO DAILY 12/08/21 12/08/21 mcg (2,000 unit) capsule (Vitamin D3) Previous Rx's Medication Instructions Recorded nitrofurantoin macrocrystal 100 mg 100 mg PO DAILY 90 days #90 caps 10/16/21 capsule Allergies Allergy/AdvReac Type Severity Reaction Status Date / Time chlorpheniramine Allergy Severe HALLUCINATI Verified 12/02/21 09:26 [From TUSSIONEX] ONS escitalopram [ESCITALOPRAM] Allergy Severe DISSOCIATIVE Verified 12/02/21 09:26 REACTION fluoxetine [FLUOXETINE] Allergy Severe DISSOCIATIVE Verified 12/02/21 09:26 REACTION hydrocodone [From TUSSIONEX] Allergy Severe HALLUCINATI Verified 12/02/21 09:26 ONS ibuprofen [IBUPROFEN] Allergy Severe THROAT Verified 12/02/21 09:26 SWELLING Sulfa (Sulfonamide Allergy Severe DYSPNEA Verified 12/02/21 09:26 Antibiotics) [SULFA (SULFONAMIDE ANTIBIOTICS)] clarithromycin [From BIAXIN] Allergy Intermediate ABD.PAIN Verified 12/02/21 09:26 duloxetine [DULOXETINE] Allergy Intermediate FACIAL Verified 12/02/21 09:26 NUMBNESS erythromycin base Allergy Intermediate RASH Verified 12/02/21 09:26 [ERYTHROMYCIN BASE] Penicillins [PENICILLINS] Allergy Intermediate RASH Verified 12/02/21 09:26 tetracycline [TETRACYCLINE] Allergy Intermediate DIARRHEA Verified 12/02/21 09:26 ciprofloxacin [From CIPRO] Allergy Unknown ANAPHYLAXIS Verified 12/02/21 09:26 codeine [CODEINE] Allergy Unknown TINNITIS Verified 12/02/21 09:26 guaifenesin Allergy Unknown Unknown Verified 12/02/21 09:26 levofloxacin [From Levaquin] Allergy Unknown Unknown Verified 12/02/21 09:26 pregabalin Allergy Unknown Unknown Verified 12/02/21 09:26 Review of Systems Review of Systems: Yes all other systems are reviewed and are negative Constitutional: Constitutional: Reports no additional constitutional complaints, Denies body ache(s), Denies chills, Denies fever(s), Denies headache(s), Reports night sweats, Reports poor appetite and Denies weakness Eyes: Eyes: Reports no additional eye complaints and Denies change in vision ENT: Reports system reviewed and no additional complaints, except as documented, Denies dizziness, Denies headache(s), Denies nasal congestion, Denies nasal discharge and Denies neck pain Cardiovascular: Cardiovascular: Reports no additional cardiovascular complaints, Denies chest pain, Denies leg edema and Denies dyspnea Respiratory: Respiratory: Reports no additional respiratory complaints, Denies cough and Denies dyspnea Gastrointestinal: Gastrointestinal: Reports no additional gastrointestinal complaints, Denies abdominal pain, Reports diarrhea, Reports nausea and Denies vomiting Genitourinary: Genitourinary: Reports no additional female genitourinary complaints and Denies urinary incontinence Musculoskeletal: Musculoskeletal: Reports no additional musculoskeletal complaints, Reports back pain, Denies arthralgias, Denies joint swelling, Denies neck pain, Denies numbness and Denies tingling Integumentary/Breasts: Skin/Breast: Reports system reviewed and no additional complaints, except as docu and Denies rash Neurologic: Reports system reviewed and no additional complaints, except as documented, Denies dizziness, Denies headache(s), Denies numbness, Denies tingling and Denies weakness [facility] Past Medical History Attestation statement: The following information was validated with the patient. Source: old records reviewed and nursing notes reviewed Medical History (Updated 12/08/21 @ 18:16 by JOSE ROBERTO Peñaloza) Anxiety Cholelithiasis Cirrhosis of liver Diabetes mellitus, type II Does mobilize using walker Fatty liver Fibromyalgia Ganglion cyst HTN (hypertension) Hypercholesterolemia Hypothyroidism Left foot drop Low back pain Neuropathy OA (osteoarthritis) Obstructive airway disease Perirectal abscess Plantar fasciitis PONV (postoperative nausea and vomiting) Primary osteoarthritis of right knee RBBB Renal calculus, bilateral Renal calyceal dilation determined by ultrasound Renal stones Retained ureteral stent Sciatica Staghorn calculus Staghorn calculus UTI (urinary tract infection) Surgical History History of cystoscopy History of lithotripsy History of lumbar discectomy History of lumpectomy of both breasts History of surgery Hx of colonoscopy Status post cystoscopy with ureteral stent placement Social History Social History Household Members: Significant Other Housing: House Do you presently have visiting nurse or other home services: No Alcohol intake: never Patient Tobacco Use Status: Former Tobacco user Quit Date: 1986 Tobacco use type: Cigarette Years Smoked: 27 Advance Directives: Yes Advance Directives on File: Yes Advance Directives Date on File: 04/06/21 service: No Current occupational status: disabled Physical Exam ED Vital Signs: Vital Signs - 24 hr 12/08/21 11:40 12/08/21 15:12 12/08/21 16:23 Temperature 98 F 99.2 F Pulse Rate 93 81 Respiratory Rate 18 16 14 Blood Pressure 168/83 H 109/52 L Pulse Oximetry 98 98 Oxygen Delivery Method Room Air BMI result Body Mass Index 32.5 Const General: cooperative, healthy appearing, comfortable and no acute distress Orientation/consciousness: patient oriented x3 Limitations: no limitations HENMT Head: Yes normal to inspection Ears: hearing grossly normal bilaterally Eyes General: appearance normal, both eyes and all related structures Pupils: Equal, round and reactive pupils present Neck Neck: Yes normal visual inspection, Yes full ROM and Yes no lymphadenopathy Chest Chest palpation & inspection: normal inspection of the chest Resp Effort & Inspection: normal respiratory effort Auscultation: clear to auscultation bilaterally Cardio Rate: regular rate Rhythm: regular rhythm Peripheral pulses: Peripheral pulses 2+ throughout GI Inspection: Yes normal to inspection Palpation (GI): Soft to palpation and nontender General: Yes CVA tenderness (right ) Back/Spine/Pelvis Back: CVA tenderness (right ) Thoracic/Lumbar Spine: thoracic and lumbar spine normal to inspection Skin General skin exam: no rashes or lesions noted Neuro General: patient oriented x3 and moves all extremities Cranial nerves: Yes Equal, round and reactive pupils present Extrem General: Yes normal to inspection, Yes no pedal edema and Yes no calf tenderness Course Course Course Narrative: Received call from Radiology. Patient appears to have a right retroperitoneal abscess vs in the psoas muscle approximately 10 cm in size. Patient has history of renal colic. Patient had admission in March of 2021 with right-sided ureterocopy with laser lithotripsy and stent replacement. She was readmitted in June 2021 and had a right ureteroscopy with laser lithotripsy and stent placement. Will discuss imaging with urology/general surgery Of note patient has leukocytosis new from baseline. At this time infection is suspected. Antibiotics ordered Consultations Consultation #1: [id number]-Spoke to Dr. Jimenez from General surgery. Likely patient will need IR drainage of the fluid collection. Should consult Urology. Sent out message Consultation #2: [id number]-spoke to Medicine Dr. Webb. Will not admit patient prior to urology being consulted Consultation #3: [id number]-spoke to Dr. Lowry from urology. Dr. Reis will follow patient as consult. No emergent urology procedure needed. WIll follow patient. Spoke to Dr Webb who accepted admission. Medical Decision Making [facility] Narrative Medical decision making narrative: 76-year-old female with a history of diabetes, hypothyroidism, hypertension, hyperlipidemia, anxiety, history of renal colic here with complaints of right back pain radiating to the hip for the last 2 weeks with nausea, poor p.o. intake and night sweats. Will need labs, UA, CT abdomen and pelvis, COVID screen Differential Diagnosis Differential Diagnosis: Consider pyelonephritis, renal colic, infected stone Medical Records Medical records reviewed: Yes I reviewed the patient's medical records. Lab Data Lab results reviewed: Yes I reviewed the patient's lab results. Result diagrams: 12/08/21 11:50 12/08/21 11:50 Labs: Lab Results 12/08/21 12/08/21 12/08/21 Range/Units 11:50 11:50 14:23 WBC 23.2 H (4.8-10.8) X10*3/uL RBC 3.95 L (4.20-5.50) X10*6/uL Hgb 11.5 L (12.0-16.0) g/dl Hct 34.9 L (37.0-47.0) % MCV 88.4 (80.0-98.0) fL MCH 29.1 (27.0-33.0) pg MCHC 33.0 (31.0-35.0) g/dl RDW 14.8 (11.0-16.0) % Plt Count 477 H D (160-400) X10*3/uL MPV 9.2 L (9.4-12.3) fL Immature Gran % (Auto) 2.4 H (0.0-0.4) % Neut % (Auto) 83.6 H (45-73) % Lymph % (Auto) 9.3 L (20-40) % [place] % (Auto) 4.3 (2-11) % Eos % (Auto) 0.1 (0-4) % Baso % (Auto) 0.3 (0-2) % Lymph # (Auto) 2.2 (1.2-4.9) X10*3/uL [place] # (Auto) 1.0 (0.1-1.2) X10*3/uL Eos # (Auto) 0.0 (0.0-0.4) X10*3/uL Baso # (Auto) 0.1 (0.0-0.2) X10*3/uL Abs Immat Gran (auto) 0.56 H (0.00-0.03) X10*3/uL Absolute Neuts (auto) 19.4 H (2.0-8.3) x10*3/uL Absolute Nucleated RBC 0.000 (0.0-0.012) X10*3/uL Nucleated RBC % (auto) 0.0 (0.0-0.2) /100WBC Sodium 133 L (135-145) mmol/L Potassium 3.8 (3.3-5.1) mmol/L Chloride 96 (96-108) mmol/L Carbon Dioxide 21 L (22-29) mmol/L Anion Gap 20 (12-20) BUN 16 (9-16) mg/dL Creatinine 1.20 (0.5-1.4) mg/dL Estim Creat Clear Calc 43.7 Estimated GFR 44 Random Glucose 164 H (60-115) mg/dL Lactic Acid (0.5-2.0) mmol/L Calcium 8.8 (8.4-10.2) mg/dL Magnesium 2.0 (1.6-2.6) mg/dL Total Bilirubin 0.6 (0.0-1.0) mg/dL Direct Bilirubin 0.4 (0.0-0.5) mg/dL AST 61 H (5-31) U/L ALT 61 H (0-31) U/L Alkaline Phosphatase 79 (39-117) U/L Total Protein 7.5 (6.5-8.0) g/dL Albumin 3.1 L (3.5-5.0) g/dL Lipase 8 (8-78) U/L Urine Color Yellow Urine Appearance Cloudy Urine pH 5.0 (5.0-9.0) Ur Specific [place] 1.010 (1.005-1.025) Urine Protein Trace (Neg-Trace) mg/dL Urine Glucose (UA) Negative (Negative) mg/dL Urine Ketones Negative (Negative) mg/dL Urine Blood Moderate (2+) H (Negative) Urine Nitrite Negative (Negative) Ur Leukocyte Esterase Large (3+) H (Negative) Urine RBC 0-2 (0-2) /HPF Urine WBC >50 H (0-5) /HPF Ur Squamous Epith Cells 0-2 (0-2) /HPF Urine Bacteria None Seen (None Seen) Hyaline Casts 0-2 (0-2) /LPF COVID-19 (JOSE MARIA) (Negative) COVID-19 Clin Com 12/08/21 12/08/21 12/08/21 Range/Units 14:50 15:01 18:04 WBC (4.8-10.8) X10*3/uL RBC (4.20-5.50) X10*6/uL Hgb (12.0-16.0) g/dl Hct (37.0-47.0) % MCV (80.0-98.0) fL MCH (27.0-33.0) pg MCHC (31.0-35.0) g/dl RDW (11.0-16.0) % Plt Count (160-400) X10*3/uL MPV (9.4-12.3) fL Immature Gran % (Auto) (0.0-0.4) % Neut % (Auto) (45-73) % Lymph % (Auto) (20-40) % [place] % (Auto) (2-11) % Eos % (Auto) (0-4) % Baso % (Auto) (0-2) % Lymph # (Auto) (1.2-4.9) X10*3/uL [place] # (Auto) (0.1-1.2) X10*3/uL Eos # (Auto) (0.0-0.4) X10*3/uL Baso # (Auto) (0.0-0.2) X10*3/uL Abs Immat Gran (auto) (0.00-0.03) X10*3/uL Absolute Neuts (auto) (2.0-8.3) x10*3/uL Absolute Nucleated RBC (0.0-0.012) X10*3/uL Nucleated RBC % (auto) (0.0-0.2) /100WBC Sodium (135-145) mmol/L Potassium (3.3-5.1) mmol/L Chloride (96-108) mmol/L Carbon Dioxide (22-29) mmol/L Anion Gap (12-20) BUN (9-16) mg/dL Creatinine (0.5-1.4) mg/dL Estim Creat Clear Calc Estimated GFR Random Glucose (60-115) mg/dL Lactic Acid 1.3 (0.5-2.0) mmol/L Calcium (8.4-10.2) mg/dL Magnesium Cancelled (1.6-2.6) mg/dL Total Bilirubin (0.0-1.0) mg/dL Direct Bilirubin (0.0-0.5) mg/dL AST (5-31) U/L ALT (0-31) U/L Alkaline Phosphatase (39-117) U/L Total Protein (6.5-8.0) g/dL Albumin (3.5-5.0) g/dL Lipase (8-78) U/L Urine Color Urine Appearance Urine pH (5.0-9.0) Ur Specific [place] (1.005-1.025) Urine Protein (Neg-Trace) mg/dL Urine Glucose (UA) (Negative) mg/dL Urine Ketones (Negative) mg/dL Urine Blood (Negative) Urine Nitrite (Negative) Ur Leukocyte Esterase (Negative) Urine RBC (0-2) /HPF Urine WBC (0-5) /HPF Ur Squamous Epith Cells (0-2) /HPF Urine Bacteria (None Seen) Hyaline Casts (0-2) /LPF COVID-19 (JOSE MARIA) Negative (Negative) COVID-19 Clin Com See Note Imaging Data CT scan - abdomen: Attestation: I personally reviewed and interpreted this imaging study as follows: Radiologist's impression: FINDINGS: LUNG BASES: The visualized lung bases are unremarkable.? LIVER, GALLBLADDER, AND BILIARY TREE: Morphologically cirrhotic liver. No focal liver lesions. No biliary dilatation. Cholelithiasis.? PANCREAS: Unremarkable.? SPLEEN: Unremarkable.? ADRENAL GLANDS: Unremarkable.? KIDNEYS AND URETERS: No hydronephrosis. Multiple nonobstructive bilateral intrarenal calculi redemonstrated. Interval fragmentation of several staghorn calculi in the lower pole right kidney, however there are still 2 dominant calculi measuring 1.7 cm and 1.1 cm in the lower pole right kidney with innumerable smaller calculi scattered throughout the right renal collecting system. There is fat stranding which is coalescent and volume forming inferior to the right kidney, with scattered punctate calcifications and some areas. This stranding is contiguous with a new rounded structure inseparable from/abutting the lower pole of the right kidney measuring 3.2 cm with an attenuation of 24 HU . A correlate for this was seen by ultrasound in August. Contiguous with the posterior aspect of the right perinephric fascia is a collection in the right psoas measuring approximately 10 x 5 x 8 cm and 15-25 HU. There are punctate and coarse calcifications along the inferior dependent aspects of the collection. There are 2 nonobstructive calculi in the left kidney, punctate in size and 3 mm in size, both lower pole. Ureters are normal in course and caliber. BLADDER: Unremarkable.? GASTROINTESTINAL TRACT: Sigmoid colonic diverticulosis. Mild wall thickening in the mid sigmoid colon with pericolic fat stranding reflective of a degree of active inflammation, likely mild acute diverticulitis complicated chronic diverticular disease. Stomach and small bowel unremarkable.? ABDOMINAL WALL: Small fat-containing umbilical hernia without associated inflammation.? LYMPH NODES: Normal. VASCULAR: Aorta is atherosclerotic but normal caliber. PELVIC VISCERA: Hysterectomy. No adnexal abnormalities.? OSSEOUS STRUCTURES: No acute or suspicious osseous abnormalities.? CT/CT abdomen pelvis wo IV con IMPRESSION: *? Right psoas fluid collection measuring 10 x 5 x 7 cm, contiguous with the right posterior perinephric fascia. No associated gas, however given the presence of fever and elevated white blood cell count, abscess must be considered. This could also represent a chronic seroma as well. *? Multiple large nonobstructive calculi redemonstrated in right kidney, showing evidence of interval lithotripsy. There is likely fluid, old blood and potentially scarring inferior to the right kidney which may represent an old or evolving perinephric hematoma. *? New more rounded fluid density structure abutting or emanating from the lower pole right kidney is nonspecific but did show a sonographic correlate in August 2021, appearing similar in size since then. 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 *? Chronic diverticular disease with mild active inflammation in the mid sigmoid colon. *? Morphologically cirrhotic liver. *? Cholelithiasis. Discharge Plan Discharge Clinical Impression: Abscess, retroperitoneal, Leukocytosis Patient Disposition: Admitted As Inpatient
[2021-12-08 14:43] LABS: Appearance Urine Cloudy; Color Urine Yellow; Glucose Urine UA Negative (Negative); Leukocyte Esterase Urine Large (3+) (Negative); Nitrite Urine Negative (Negative); UMIC TRIGGER UACC YES; Urine Blood Moderate (2+) (Negative); Urine Ketones Negative (Negative); Urine Protein Trace mg/dL (Neg-Trace)
[2021-12-08 14:52] LABS: Bacteria Urine None Seen (None Seen); Hyaline Casts Urine 0-2 /LPF (0-2); RBC Urine 0-2 /HPF (0-2); Squamous Epithelial Cell Urine 0-2 /HPF (0-2); UACC Culture Trigger YES; WBC Urine >50 /HPF (0-5)
[2021-12-08] MEDS: ondansetron HCL 4 MG/2 ML VIAL IVPUSH (15:10)
[2021-12-08 15:12] VITALS: RESP 16
[2021-12-08] MEDS: Morphine Sulfate 2 MG/ML CARTRIDGE IVPUSH (15:12)
--- NOTE | 2021-12-08 15:12 | PHA.MEDREC ---
Pharmacy Consult ? Medication Reconciliation Pharmacy has completed the medication reconciliation.Patient had a current medication list I used to confirm her home meds. Per patient statement she has not used albuterol inhaler in a really long time but other medications were taken as scheduled this morning.
[2021-12-08] MEDS: 0.9 % Sodium Chloride 500 ML 999 ML IV (15:16)
[2021-12-08 15:25] LABS: COVID-19 Test Negative (Negative); IDNOW Serial# 9DB6401D
[2021-12-08] MEDS: cefTRIAXone sodium 1 GM in 0.9 % Sodium Chloride 50 ML IV (16:22)
[2021-12-08 16:23] VITALS: BP 109/52; PULSE 81; RESP 14; TEMP 37.3; O2SAT 98
--- NOTE | 2021-12-08 17:58 | P.HPHOSP_ITS ---
History of Present Illness Date of Service: 12/08/21 <JOSE ROBERTO Peñaloza - Last Filed: 12/08/21 19:32> Attending physician on admission: Clint Webb <JOSE ROBERTO Peñaloza - Last Filed: 12/08/21 19:32> Chief Complaint: malaise, night sweats, right low back pain <JOSE ROBERTO Peñaloza - Last Filed: 12/08/21 19:32> 76-year-old female with hypertension, hypothyroidism, vor-vqobsoq-gpeqhqagg type 2 diabetes, GERD, hyperlipidemia, anxiety, and fatty liver presented to the ED this morning for evaluation of right low back pain with radiation to the right hip ongoing for 2 weeks. There is also associated nausea without vomiting, decreased p.o. intake, night sweats, and 3 episodes of diarrhea daily. She does have history of nephrolithiasis and was scheduled to undergo procedure with Dr. Daniel last week but was not feeling well. On arrival to the ED, vital signs stable. Patient afebrile. Leukocytosis of 23.2. Stable normocytic anemia. Pl atelets 477. Creatinine 1.20/BUN 16. Sodium 133, CO2 21, electrolytes otherwise normal. Glucose 164. AST 61/ALT 61. Total bilirubin 0.6. Albumin 3.1. Urinalysis significant for 3+ leukocytes, 2+ blood, nitrate negative, no bacteria. CT abdomen/pelvis showing right psoas fluid collection measuring 10 x 5 x 7 cm, contiguous with the right posterior perinephric fascia. No associated gas, however given leukocytosis and fever, abscess should be considered. There also multiple large nonobstructive calculi redemonstrated and right kidney as well as a stable appearing rounded fluid density structure abutting or emanating from the lower right pole of the kidney, possibly chronic perinephric hematoma. There is also a morphologically cirrhotic liver. Last urology procedure 06/2021 with lithotripsy and right stent placement. Denies any use of blood thinners. No fall or injury. ED discussed case with general surger who recommends IR drain and will be followed by urology. <JOSE ROBERTO Peñaloza - Last Filed: 12/08/21 19:32> Review of Systems Review of Systems: General: +malaise. No fevers, unintentional weight loss HEENT: No blurred vision/diplopia. Cardiovascular: No chest pain, palpitations, or leg edema Respiratory: No shortness of breath, wheezing, cough GI: +nausea, +diarrhea. No abdominal pain, vomiting, constipation, melena, hematochezia : No dysuria, hematuria, increased urinary frequency MSK: +right low back pain, +right hip pain Neuro: No headaches, weakness, paresthesias Skin: No rashes or lesions <JOSE ROBERTO Peñaloza - Last Filed: 12/08/21 19:32> FOR[facility]LY [facility] Medical History: Medical History Anxiety Cholelithiasis Cirrhosis of liver Diabetes mellitus, type II Does mobilize using walker Fatty liver Fibromyalgia Ganglion cyst HTN (hypertension) Hypercholesterolemia Hypothyroidism Left foot drop Low back pain Neuropathy OA (osteoarthritis) Obstructive airway disease Perirectal abscess Plantar fasciitis PONV (postoperative nausea and vomiting) Primary osteoarthritis of right knee RBBB Renal calculus, bilateral Renal calyceal dilation determined by ultrasound Renal stones Retained ureteral stent Sciatica Staghorn calculus Staghorn calculus UTI (urinary tract infection) <JOSE ROBERTO Peñaloza - Last Filed: 12/08/21 19:32> Family History: Family History Father Alcohol dependence Mother CHF (congestive heart failure) Other Alcoholic cirrhosis <JOSE ROBERTO Peñaloza - Last Filed: 12/08/21 19:32> Surgical History: Surgical History History of cystoscopy History of lithotripsy History of lumbar discectomy History of lumpectomy of both breasts History of surgery Hx of colonoscopy Status post cystoscopy with ureteral stent placement <JOSE ROBERTO Peñaloza - Last Filed: 12/08/21 19:32> Social History: Social History Household Members: Spouse Housing: House Do you presently have visiting nurse or other home services: No Alcohol intake: never Patient Tobacco Use Status: Former Tobacco user Quit Date: 1986 Tobacco use type: Cigarette Years Smoked: 27 Second Hand Smoke Exposure: No Advance Directives Date on File: 04/06/21 service: No Current occupational status: disabled <JOSE ROBERTO Peñaloza - Last Filed: 12/08/21 19:32> Meds Allergies/Adverse reactions: Allergies Allergy/AdvReac Type Severity Reaction Status Date / Time chlorpheniramine Allergy Severe HALLUCINATI Verified 12/02/21 09:26 [From TUSSIONEX] ONS escitalopram [ESCITALOPRAM] Allergy Severe DISSOCIATIVE Verified 12/02/21 09:26 REACTION fluoxetine [FLUOXETINE] Allergy Severe DISSOCIATIVE Verified 12/02/21 09:26 REACTION hydrocodone [From TUSSIONEX] Allergy Severe HALLUCINATI Verified 12/02/21 09:26 ONS ibuprofen [IBUPROFEN] Allergy Severe THROAT Verified 12/02/21 09:26 SWELLING Sulfa (Sulfonamide Allergy Severe DYSPNEA Verified 12/02/21 09:26 Antibiotics) [SULFA (SULFONAMIDE ANTIBIOTICS)] clarithromycin [From BIAXIN] Allergy Intermediate ABD.PAIN Verified 12/02/21 0 9:26 duloxetine [DULOXETINE] Allergy Intermediate FACIAL Verified 12/02/21 09:26 NUMBNESS erythromycin base Allergy Intermediate RASH Verified 12/02/21 09:26 [ERYTHROMYCIN BASE] Penicillins [PENICILLINS] Allergy Intermediate RASH Verified 12/02/21 09:26 tetracycline [TETRACYCLINE] Allergy Intermediate DIARRHEA Verified 12/02/21 09:26 ciprofloxacin [From CIPRO] Allergy Unknown ANAPHYLAXIS Verified 12/02/21 09:26 codeine [CODEINE] Allergy Unknown TINNITIS Verified 12/02/21 09:26 guaifenesin Allergy Unknown Unknown Verified 12/02/21 09:26 levofloxacin [From Levaquin] Allergy Unknown Unknown Verified 12/02/21 09:26 pregabalin Allergy Unknown Unknown Verified 12/02/21 09:26 <JOSE ROBERTO Peñaloza - Last Filed: 12/08/21 19:32> Active Medications: Current Medications Pharmacy Consult (Consult Rx Perform Med Rec) 1 each MISCELLANE ONCE PRN PRN Reason: Consult order <JOSE ROBERTO Peñaloza - Last Filed: 12/08/21 19:32> Home medications: Home Medications Medication Instructions Recorded Confirmed Last Taken Type furosemide 40 mg tablet 40 mg PO BID 08/28/20 12/08/21 12/08/21 History levothyroxine 112 mcg tablet 112 mcg PO DAILY 08/28/20 12/08/21 12/08/21 History lisinopril 10 mg tablet 10 mg PO DAILY 08/28/20 12/08/21 12/08/21 History atorvastatin 10 mg tablet 1 tab PO DAILY@1700 04/05/21 12/08/21 12/07/21 History metformin 500 mg tablet,extended 1 tab PO DAILY@1700 04/06/21 12/08/21 12/07/21 History release 24 hr pyridoxine (vitamin B6) 100 mg 1 tab PO DAILY 04/06/21 12/08/21 12/08/21 History tablet omeprazole 20 mg capsule,delayed 20 mg PO DAILY@0630 04/29/21 12/08/21 Unknown History release cholecalciferol (vitamin D3) 50 50 mcg PO DAILY 12/08/21 12/08/21 12/08/21 History mcg (2,000 unit) capsule (Vitamin D3) <JOSE ROBERTO Peñaloza - Last Filed: 12/08/21 19:32> Physical Exam Vital Signs and Narrative: Vital Signs: Last Vital Signs Temp 99.2 F 12/08/21 16:23 Pulse 81 12/08/21 16:23 Resp 14 12/08/21 16:23 BP 109/52 L 12/08/21 16:23 Pulse Ox 98 12/08/21 16:23 O2 Del Method 12/08/21 16:23 BMI result Body Mass Index 32.5 <JOSE ROBERTO Peñaloza - Last Filed: 12/08/21 19:32> Constitutional - Awake and Alert, No apparent distress Eyes - PERRLA, EOMI Cardiovascular - S1S2, RRR, No edema Respiratory - Normal lung expansion, Normal respiratory effort, No respiratory distress, CTA bilaterally Gastrointestinal - NT / ND; +BS; No rebound or guarding - Right CVA tenderness Back: right low back/pelvis ttp Extremities - no calf tenderness bilaterally, no swelling Skin - Warm/Dry Neurological - Alert & oriented x3, CN II-XII in tact, 5/5 strength BUE and BLE Psychological - Appropriate affect <JOSE ROBERTO Peñaloza - Last Filed: 12/08/21 19:32> Results Labs CBC and Chem 7: : 12/09/21 09:42 12/08/21 11:50 <JOSE ROBERTO Peñaloza - Last Filed: 12/08/21 19:32> Labs: Laboratory Results - last 24 hr 12/08/21 12/08/21 12/08/21 11:50 11:50 14:23 MCV 88.4 MCH 29.1 MCHC 33.0 RDW 14.8 Plt Count 477 H D MPV 9.2 L Immature Gran % (Auto) 2.4 H Neut % (Auto) 83.6 H Lymph % (Auto) 9.3 L [place] % (Auto) 4.3 Eos % (Auto) 0.1 Baso % (Auto) 0.3 Lymph # (Auto) 2.2 [place] # (Auto) 1.0 Eos # (Auto) 0.0 Baso # (Auto) 0.1 Abs Immat Gran (auto) 0.56 H Absolute Neuts (auto) 19.4 H Absolute Nucleated RBC 0.000 Nucleated RBC % (auto) 0.0 Anion Gap 20 Estim Creat Clear Calc 43.7 Estimated GFR 44 Random Glucose 164 H Calcium 8.8 Magnesium 2.0 Total Bilirubin 0.6 Direct Bilirubin 0.4 AST 61 H ALT 61 H Alkaline Phosphatase 79 Total Protein 7.5 Albumin 3.1 L Lipase 8 Urine Color Yellow Urine Appearance Cloudy Urine pH 5.0 Ur Specific [place] 1.010 Urine Protein Trace Urine Glucose (UA) Negative Urine Ketones Negative Urine Blood Moderate (2+) H Urine Nitrite Negative Ur Leukocyte Esterase Large (3+) H Urine RBC 0-2 Urine WBC >50 H Ur Squamous Epith Cells 0-2 Urine Bacteria None Seen Hyaline Casts 0-2 COVID-19 (JOSE MARIA) COVID-19 Clin Com 12/08/21 12/08/21 14:50 15:01 MCV MCH MCHC RDW Plt Count MPV Immature Gran % (Auto) Neut % (Auto) Lymph % (Auto) [place] % (Auto) Eos % (Auto) Baso % (Auto) Lymph # (Auto) [place] # (Auto) Eos # (Auto) Baso # (Auto) Abs Immat Gran (auto) Absolute Neuts (auto) Absolute Nucleated RBC Nucleated RBC % (auto) Anion Gap Estim Creat Clear Calc Estimated GFR Random Glucose Calcium Magnesium Cancelled Total Bilirubin Direct Bilirubin AST ALT Alkaline Phosphatase Total Protein Albumin Lipase Urine Color Urine Appearance Urine pH Ur Specific [place] Urine Protein Urine Glucose (UA) Urine Ketones Urine Blood Urine Nitrite Ur Leukocyte Esterase Urine RBC Urine WBC Ur Squamous Epith Cells Urine Bacteria Hyaline Casts COVID-19 (JOSE MARIA) Negative COVID-19 Clin Com See Note <JOSE ROBERTO Peñaloza - Last Filed: 12/08/21 19:32> Imaging Radiologist's Impressions: Impressions Abdomen/Pelvis CT 12/08/21 14:48 IMPRESSION: * Right psoas fluid collection measuring 10 x 5 x 7 cm, contiguous with the right posterior perinephric fascia. No associated gas, however given the presence of fever and elevated white blood cell count, abscess must be considered. This could also represent a chronic seroma as well. * Multiple large nonobstructive calculi redemonstrated in right kidney, showing evidence of interval lithotripsy. There is likely fluid, old blood and potentially scarring inferior to the right kidney which may represent an old or evolving perinephric hematoma. * New more rounded fluid density structure abutting or emanating from the lower pole right kidney is nonspecific but did show a sonographic correlate in August 2021, appearing similar in size since then. 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 * Chronic diverticular disease with mild active inflammation in the mid sigmoid colon. * Morphologically cirrhotic liver. * Cholelithiasis. This critical result was discussed with Joyce CID at 12/08/2021 4:04 PM and it was ascertained that the content and urgency of the report was understood at the time of direct communication. <JOSE ROBERTO Peñaloza - Last Filed: 12/08/21 19:32> Assessment and Plan (1) Retroperitoneal fluid collection: Status: Acute <JOSE ROBERTO Peñaloza - Last Filed: 12/08/21 19:32> (2) Leukocytosis: Status: Acute <JOSE ROBERTO Peñaloza - Last Filed: 12/08/21 19:32> 76-year-old female with hypertension, hypothyroidism, [id number]-[id number] type 2 diabetes, GERD, hyperlipidemia, anxiety, history of nephrolithiasis, and fatty liver to be admitted for possible retroperitoneal collection concerning for retroperitoneal abscess given history urologic procedures in the past vs evolving perinephric hematoma with leukocytosis. #Possible Retroperitoneal abscess vs evolving periphric hematoma with infection -Leukocytosis 23.1. Right low back/hip pain without injury with subjective f kelli/night sweats -CT abdomen/pelvis showing right psoas fluid collection measuring 10 x 5 x 7 cm, contiguous with the right posterior perinephric fascia.? No associated gas, however given leukocytosis and fever, abscess should be considered.? There also multiple large nonobstructive calculi redemonstrated and right kidney as well as a stable appearing rounded fluid density structure abutting or emanating from the lower right pole of the kidney, possibly chronic perinephric hematoma. -UA with 3+ leuks, 2+ blood, no bacteria, no nitrates -Blood cultures and urine culture pending -2g IV ceftriaxone daily and metronidazole 500mg q8h -General surgery and urology consults placed -Consider ID input later if needed -Follow CBC -Pain management -T&S ordered am -NPO after midnight -Admit to telemetry for close monitoring of vital signs #Noninsulin dependent type 2 diabetes -POC glucose -Diabetic diet now, NPO after midnight -Humalog on ss #HTN- bp soft -Continue lasix -Hold lisinopril #hypothyroidism -continue levothyroxone #Gerd -continue ppo #hld -continue statin #Cirrhosis of the liver -CT abd/pelvis with morphologically cirrhotic liver -AST 61/ALT 61 -No ETOH hx -Needs outpt follow up DVT prophylaxis- lovenox Full code Pt requires inpt stay of at least 2 midnights due to retroperitoneal fluid collection with possible retroperitoneal abscess requiring IV antibiotics, close monitoring of vital signs and blood counts to monitor for severe sepsis and further evaluation with expert cosultation regarding retroperitoneal collection. <JOSE ROBERTO Peñaloza - Last Filed: 12/08/21 19:32> 76-year-old female with hypertension, hypothyroidism, zwg-[id number]-qtxxheqpl type 2 diabetes, GERD, hyperlipidemia, anxiety, history of nephrolithiasis, and fatty liver to be admitted for possible retroperitoneal collection concerning for retroperitoneal abscess given history urologic procedures in the past vs evolving perinephric hematoma with leukocytosis. #Possible Retroperitoneal abscess vs evolving periphric hematoma with infection -Leukocytosis 23.1. Right low back/hip pain without injury with subjective fevers/night sweats -CT abdomen/pelvis showing right psoas fluid collection measuring 10 x 5 x 7 cm, contiguous with the right posterior perinephric fascia.? No associated gas, however given leukocytosis and fever, abscess should be considered.? There also multiple large nonobstructive calculi redemonstrated and right kidney as well as a stable appearing rounded fluid density structure abutting or emanating from the lower right pole of the kidney, possibly chronic perinephric hematoma. -UA with 3+ leuks, 2+ blood, no bacteria, no nitrates -Blood cultures and urine culture pending -2g IV ceftriaxone daily and metronidazole 500mg q8h -General surgery and urology consults placed -Consider ID input later if needed -Follow CBC -Pain management -T&S ordered am -NPO after midnight -Admit to telemetry for close monitoring of vital signs #Noninsulin dependent type 2 diabetes -POC glucose -Diabetic diet now, NPO after midnight -Humalog on ss #HTN- bp soft -Continue lasix -Hold lisinopril #hypothyroidism -continue levothyroxone #Gerd -continue ppo #hld -continue statin #Cirrhosis of the liver -CT abd/pelvis with morphologically cirrhotic liver -AST 61/ALT 61 -No ETOH hx -Needs outpt follow up DVT prophylaxis- lovenox Full code Pt requires inpatient stay of at least 2 midnights due to retroperitoneal fluid collection with possible retroperitoneal abscess requiring IV antibiotics, close monitoring of vital signs and blood counts to monitor for severe sepsis and further evaluation with expert cosultation regarding retroperitoneal collection. <Clint Webb MD - Last Filed: 12/09/21 13:43> Quality Stroke Does the patient have a stroke diagnosis?: No <JOSE ROBERTO Peñaloza - Last Filed: 12/08/21 19:32> VTE Prior VTE?: No <JOSE ROBERTO Peñaloza - Last Filed: 12/08/21 19:32> VTE Risk Level:: Medical - moderate - high <JOSE ROBERTO Peñaloza - Last Filed: 12/08/21 19:32> VTE Device Contraindication: Treatment Not Indicated <JOSE ROBERTO Peñaloza - Last Filed: 12/08/21 19:32> VTE Drug Contraindication: N/A - Med Ordered <JOSE ROBERTO Peñaloza - Last Filed: 12/08/21 19:32>
[2021-12-08 18:21] LABS: Lactic Acid 1.3 mmol/L (0.5-2.0)
--- OUTSIDE RECORDS SUMMARY | 2021-12-08 19:02 | XMS_ITS | Summary of Care ---
:1945 Author Organization [facility] Address [address] [place] [address]- Encounter 06/07/16 - 06/18/16 [facility] [address] [place] [address]- Discharge Diagnosis: Acute hypoxemic respiratory failure Discharge Diagnosis: Community acquired pneumonia Discharge Diagnosis: Hypothyroidism Discharge Diagnosis: Iron deficiency Discharge Diagnosis: HTN - Hypertension Discharge Disposition: Discharged to Home or Self Care Attending Physician: Louis Koch MD Vital Signs Most recent to oldest 1 2 3 [Reference Range]: Temperature Oral F 98.4 DegF 98.2 DegF 97.7 DegF [96.4-99.1 DegF] (06/18/16 5:16 AM) (06/17/16 3:56 PM) (06/17/16 6: 14 AM) Peripheral Pulse Rate 81 bpm 71 bpm 91 bpm [60-100 bpm] (06/18/16 9:30 AM) (06/18/16 5:16 AM) (06/17/16 3:5 6 PM) Respiratory Rate [14-20 16 br/min 18 br/min 18 br/mi n br/min] (06/18/16 9:30 AM) (06/18/16 5:16 AM) (06/17/16 3:5 6 PM) Blood Pressure 121/58 mmHg [90-140/60-90 mmHg] (06/18/16 9:03 AM) Systolic Blood Pressure 121 mmHg 115 mmHg [90-140 mmHg] (06/18/16 9:03 AM) (06/18/16 5:16 AM) Diastolic Blood Pressure 58 mmHg 52 mmHg [60-90 mmHg] *LOW* *LOW* (06/18/16 9:03 AM) (06/18/16 5:16 AM) Peripheral Pulse Rate 105 bpm with Activity (06/12/16 10:00 AM) Vital Signs w/ Activity SpO2 to 96% within 1 minute PLB retu rned to mind 90s with 1-2 min PLB Additional Info (06/12/16 10:00 AM) (06/08/16 9:00 AM) Temperature Oral 36.9 DegC 36.8 DegC 37.2 DegC [35.8-37.3 DegC] (06/18/16 5:16 AM) (06/17/16 3:56 PM) (06/16/16 4: 32 PM) Problem List Condition Effective Dates Status Health Status Informant Acute hypoxemic respiratory Active failure(Confirmed) Community acquired Active pneumonia(Confirmed)1 HTN - Hypertension(Confirmed)2 Active Hypothyroidism(Confirmed) Active Iron deficiency(Confirmed)3 Active [id number] Allergies, Adverse Reactions, Alerts Substance Reaction Severity Status chlorpheniramine Active ciprofloxacin Active clarithromycin Active codeine Active erythromycin base Active escitalopram Active FLUoxetine Active HYDROcodone Active ibuprofen Active [place] Active sulfa drugs Active tetracycline Active Medications acetaminophen 325 mg oral tablet 650 mg = 2 tab, Tab, Oral, q4hr PRN, Refills 0, as needed for fever Start Date: 06/17/16 Status: Orderedalbuterol CFC free 90 mcg/inh inhalation aerosol 90 mcg, 1 puff, Aerosol, INH, q4hr RT PRN, 1 EA, Refills 0, wheezing, Print Requisition, 0 Start Date: 06/17/16 Status: Orderedaluminum hydroxide/magnesium hydroxide/simethicone 200 mg-200 mg- 20 mg/5 mL oral suspension 30 mL, Susp-Oral, Oral, q4hr PRN, Refills 0, Indigestion Start Date: 06/17/16 Status: OrderedamLODIPine 5 mg oral tablet 5 mg = 1 tab, Tab, Oral, Daily, 30 tab, Refills 0, Print Requisition, 0 Start Date: 06/17/16 Status: Orderedcholecalciferol 1000 intl units oral tablet 2,000 IntlUnit = 2 tab, Tab, Oral, Daily, Refills 0 Start Date: 06/17/16 Status: Orderedferrous sulfate 325 mg (65 mg elemental iron) oral tablet 325 mg = 1 tab, Tab, Oral, BIDWM, Refills 0 Start Date: 06/17/16 Status: OrderedguaiFENesin 600 mg oral tablet, extended release 600 mg = 1 tab, Tab-ER, Oral, q12hr, Refills 0 Start Date: 06/17/16 Status: Orderedlevothyroxine 112 mcg (0.112 mg) oral tablet 224 mcg = 2 tab, Tab, Oral, qSUN, Refills 0 Start Date: 06/17/16 Status: Orderedlevothyroxine 112 mcg (0.112 mg) oral tablet 112 mcg = 1 tab, Tab, Oral, qM through Sa, Refills 0 Start Date: 06/17/16 Status: Orderedlisinopril 40 mg oral tablet 40 mg = 1 tab, Tab, Oral, Daily Start Date: 06/07/16 Status: OrderedLORazepam 0.5 mg oral tablet 0.5 mg = 1 tab, Tab, Oral, BID PRN, 12 tab, Refills 0, Anxiety, Print Requisition, 0 Start Date: 06/17/16 Status: OrderedNeurontin 300 mg oral capsule 300 mg = 1 cap, Cap, Oral, QHS, Refills 0 Start Date: 06/17/16 Status: Orderedsodium chloride 0.65% nasal solution 1 spray, Soln, Nasal, As Indicated PRN, Refills 0, Dry nasal passages Start Date: 06/17/16 Status: Ordered Results LABORATORY Most recent to oldest 1 2 3 [Reference Range]: Estimated Creatinine Clearance 34.30 mL/min 43.47 mL/min 4 3.47 mL/min (06/15/16 11:31 AM) (06/13/16 5:03 AM) (06/08/16 3:58 PM) Creatinine Level 1.28 mg/dL 1.01 mg/dL (06/15/16 11:31 AM) (06/08/16 3:58 PM) Immunizations No data available for this section Procedures No data available for this section Social History No data available for this section Assessment and Plan No data available for this section
--- NOTE | 2021-12-08 19:11 | PM.EVENT ---
Event Note Date of Service: 12/08/21 Event Note: patient seen and examined -came to the hospital because of back pain , right sided lateral back pain for 2 weeks. generalized weak denies any fevers, denies any falls or any blood thinner use or any new events in last couple of weeks except she had the pain. denies any abdominal pain or cough or urinary complaints physical exam: Appearance: Alert.? Oriented X3.? cvs: rrr, [id number] . res: clear to auscultation ,no rhonchii or wheezing abd: no rebound or guarding ,back pain , right sided lateral back pain,upper right buttock , bs present. No erythema or any fluctuation ext pulses present , no cyanosis . neuro: axo3 , nonfocal. lab imaging reviewed: WBC count is 23.2 chronically elevated LFTs lactic acid normal tachycardia sec to pain assessment and plan: possibleb retroperitoneal collections concerning infection considering urological procedures in past. may need drainage retroperitoneum (possible fluid?collection-hematoma vs abcess). will continue IV antibiotics for now urine and blood culture pending urology and surgery evaluation considering retroperitoneal/psoas muscle collections. if patient condition worsen - may need ICU evaluation.
[2021-12-08] MEDS: metroNIDAZOLE/NS 500 MG/100 ML PIGGYBACK 100 MG IV (19:54)
[2021-12-08] MEDS: Atorvastatin Calcium 10 MG TABLET PO (19:58)
--- NOTE | 2021-12-08 19:59 | PC.NURSE ---
pt's requesting that he is notified when pt moves to a different room.
[2021-12-08 20:00] VITALS: BP 150/67; PULSE 104; RESP 26; TEMP 37.4; O2SAT 94
[2021-12-08] MEDS: Furosemide 40 MG TABLET PO (20:05)
[2021-12-08 21:41] LABS: Glucose, Whole Blood 114 mg/dL (60-115)
[2021-12-09] VITALS (7 sets, daily range): BP systolic 100–115; BP diastolic 43–59; PULSE 79–87; RESP 14–20; TEMP 36.5–38.1; O2SAT 94–99
[2021-12-09] MEDS: Acetaminophen 325 MG TABLET 650 MG PO (02:21)
[2021-12-09] MEDS: metroNIDAZOLE/NS 500 MG/100 ML PIGGYBACK 100 MG IV ×3 (04:06→19:35)
[2021-12-09 05:29] LABS: MANUAL DIFF FLAG NO
[2021-12-09 05:31] LABS: Basophils Absolute Auto 0.1 X10*3/uL (0.0-0.2); Basophils Percent Auto 0.3 % (0-2); Eosinophils Absolute Auto 0.1 X10*3/uL (0.0-0.4); Eosinophils Percent Auto 0.4 % (0-4); Hematocrit 28.1 % (37.0-47.0); Hemoglobin 9.1 g/dl (12.0-16.0); Imm Gran Abs Auto 0.46 X10*3/uL (0.00-0.03); Imm Gran Pct Auto 2.3 % (0.0-0.4); Lymphocytes Absolute Auto 1.8 X10*3/uL (1.2-4.9); Lymphocytes Percent Auto 8.9 % (20-40); Mean Corpuscular HGB Conc 32.4 g/dl (31.0-35.0); Mean Corpuscular Hemoglobin 28.3 pg (27.0-33.0); Mean Corpuscular Volume 87.5 fL (80.0-98.0); Mean Platelet Volume 9.2 fL (9.4-12.3); Monocytes Percent Auto 5.2 % (2-11); Neutrophils Absolute Auto 16.3 x10*3/uL (2.0-8.3); Neutrophils Percent Auto 82.9 % (45-73); Platelet Count 327 X10*3/uL (160-400); Red Blood Count 3.21 X10*6/uL (4.20-5.50); Red Cell Distribution Width 15.1 % (11.0-16.0); White Blood Count 19.7 X10*3/uL (4.8-10.8)
[2021-12-09 05:47] LABS: INTERNATIONAL NORM RATIO 1.5 (0.9-1.1); Prothrombin Time 17.6 SEC (10.0-13.1)
[2021-12-09] MEDS: Omeprazole 20 MG CAPSULE.DR PO (06:34)
[2021-12-09] MEDS: Levothyroxine Sodium 112 MCG TABLET PO (06:34)
[2021-12-09 07:34] LABS: Glucose, Whole Blood 103 mg/dL (60-115)
[2021-12-09] MEDS: Cholecalciferol (Vitamin D3) 25 MCG TABLET 50 MCG PO (08:05)
[2021-12-09] MEDS: Furosemide 40 MG TABLET PO (08:05)
[2021-12-09] MEDS: Pyridoxine HCl (Vitamin B6) 50 MG TABLET 100 MG PO (08:05)
[2021-12-09] MEDS: HYDROmorphone HCl 0.5 MG/0.5 ML SYRINGE 0.25 MG IVPUSH ×2 (08:13→13:28)
--- NOTE | 2021-12-09 09:09 | P.CONGS_ITS ---
History of Present Illness Consult details Consult date: 12/09/21 Requesting physician: Arlette Templeton Narrative: 76-year-old female patient presenting with complaints of low right back pain radiating to the hip for 2 weeks. She has past history of large kidney stones bilaterally and previously underwent several urologic procedures to remove the nephrolithiasis. She was scheduled for a procedure on Tuesday but was too sick to undergo the procedure. She presented to the emergency department was found have a WBC of 23.2. CT abdomen and pelvis revealed a large right-sided retroperitoneal fluid collection contiguous with the right kidney. There is to be kidney stones within this collection. Findings are suggestive of a right retroperitoneal abscess. Patient was also noted to have thickening of the sigmoid colon suggestive of diverticulitis without abscess. Review of Systems Review of Systems: Yes all other systems are reviewed and are negative Gastrointestinal: Gastrointestinal: Reports as per HPI, Reports abdominal pain, Denies constipation and Denies diarrhea Genitourinary: Genitourinary: Reports as per HPI Musculoskeletal: Musculoskeletal: Reports as per HPI and Reports back pain PMFSH Past Medical History Medical History Anxiety Cholelithiasis Cirrhosis of liver Diabetes mellitus, type II Does mobilize using walker Fatty liver Fibromyalgia Ganglion cyst HTN (hypertension) Hypercholesterolemia Hypothyroidism Left foot drop Low back pain Neuropathy OA (osteoarthritis) Obstructive airway disease Perirectal abscess Plantar fasciitis PONV (postoperative nausea and vomiting) Primary osteoarthritis of right knee RBBB Renal calculus, bilateral Renal calyceal dilation determined by ultrasound Renal stones Retained ureteral stent Sciatica Staghorn calculus Staghorn calculus UTI (urinary tract infection) Family History Family History Father Alcohol dependence Mother CHF (congestive heart failure) Other Alcoholic cirrhosis Surgical History Surgical History History of cystoscopy History of lithotripsy History of lumbar discectomy History of lumpectomy of both breasts History of surgery Hx of colonoscopy Status post cystoscopy with ureteral stent placement Social History Social History Household Members: Significant Other Housing: House Do you presently have visiting nurse or other home services: No Alcohol intake: never Patient Tobacco Use Status: Former Tobacco user Quit Date: 1986 Tobacco use type: Cigarette Years Smoked: 27 Advance Directives: Yes Advance Directives on File: Yes Advance Directives Date on File: 04/06/21 service: No Current occupational status: disabled Meds Allergies Allergy/AdvReac Type Severity Reaction Status Date / Time chlorpheniramine Allergy Severe HALLUCINATI Verified 12/02/21 09:26 [From TUSSIONEX] ONS escitalopram [ESCITALOPRAM] Allergy Severe DISSOCIATIVE Verified 12/02/21 09:26 REACTION fluoxetine [FLUOXETINE] Allergy Severe DISSOCIATIVE Verified 12/02/21 09:26 REACTION hydrocodone [From TUSSIONEX] Allergy Severe HALLUCINATI Verified 12/02/21 09:26 ONS ibuprofen [IBUPROFEN] Allergy Severe THROAT Verified 12/02/21 09:26 SWELLING Sulfa (Sulfonamide Allergy Severe DYSPNEA Verified 12/02/21 09:26 Antibiotics) [SULFA (SULFONAMIDE ANTIBIOTICS)] clarithromycin [From BIAXIN] Allergy Intermediate ABD.PAIN Verified 12/02/21 09:26 duloxetine [DULOXETINE] Allergy Intermediate FACIAL Verified 12/02/21 09:26 NUMBNESS erythromycin base Allergy Intermediate RASH Verified 12/02/21 09:26 [ERYTHROMYCIN BASE] Penicillins [PENICILLINS] Allergy Intermediate RASH Verified 12/02/21 09:26 tetracycline [TETRACYCLINE] Allergy Intermediate DIARRHEA Verified 12/02/21 09:26 ciprofloxacin [From CIPRO] Allergy Unknown ANAPHYLAXIS Verified 12/02/21 09:26 codeine [CODEINE] Allergy Unknown TINNITIS Verified 12/02/21 09:26 guaifenesin Allergy Unknown Unknown Verified 12/02/21 09:26 levofloxacin [From Levaquin] Allergy Unknown Unknown Verified 12/02/21 09:26 pregabalin Allergy Unknown Unknown Verified 12/02/21 09:26 Active Medications: Current Medications Acetaminophen (Acetaminophen 325 Mg Tablet) 650 mg PO Q6H PRN PRN Reason: Pain, Mild, fever Last Admin: 12/09/21 02:21 Dose: 650 mg Atorvastatin Calcium (Atorvastatin Calcium 10 Mg Tablet) 10 mg PO DAILY@1700 NOHELIA Last Admin: 12/08/21 19:58 Dose: 10 mg Dextrose (Dextrose 50 % 25 Gm/50 Ml Syringe) 25 gm IVPUSH Q15M PRN; Protocol PRN Reason: per Hypoglycemia Standing Ord. Furosemide (Furosemide 40 Mg Tablet) 40 mg PO BID NOHELIA; Protocol Last Admin: 12/09/21 08:05 Dose: 40 mg Glucose (Glucose Gel 15 Gm Gel..Gram.) 15 gm PO Q15M PRN; Protocol PRN Reason: per Hypoglycemia Standing Ord. Hydromorphone HCl (Hydromorphone Hcl 0.5 Mg/0.5 Ml Syringe) 0.25 mg IVPUSH Q4H PRN; Protocol PRN Reason: Pain, Moderate (Pain Scale 4-6 Last Admin: 12/09/21 08:13 Dose: 0.25 mg Ceftriaxone Sodium 2 gm/ (Sodium Chloride) 50 mls @ 100 mls/hr IV Q24H [facility] Metronidazole (Flagyl) 500 mg in 100 mls @ 100 mls/hr IV Q8H [facility] Last Infusion: 12/09/21 08:08 Dose: Infused Phytonadione 10 mg/ Sodium (Chloride) 51 mls @ 51 mls/hr IV ONCE ONE Stop: 12/09/21 09:35 Insulin Human Lispro (Insulin Lispro 100 Unit/Ml 3 Ml Vial) 0 unit SUBCUT QIDACHS [facility]; Protocol Last Admin: 12/09/21 07:31 Dose: Not Given Levothyroxine Sodium (Levothyroxine Sodium 112 Mcg Tablet) 112 mcg PO DAILY@060 0 [facility] Last Admin: 12/09/21 06:34 Dose: 112 mcg Omeprazole (Omeprazole 20 Mg Capsule.Dr) 20 mg PO DAILY@0630 [facility] Last Admin: 12/09/21 06:34 Dose: 20 mg Ondansetron HCl (Ondansetron Hcl 4 Mg/2 Ml Vial) 4 mg IVPUSH Q8H PRN PRN Reason: Nausea and Vomiting Oxycodone HCl (Oxycodone Hcl Immed Release 5 Mg Tablet) 5 mg PO Q6H PRN PRN Reason: Pain, Moderate (Pain Scale 4-6 Pharmacy Consult (Consult Rx Perform Med Rec) 1 each MISCELLANE ONCE PRN PRN Reason: Consult order Pyridoxine HCl (Pyridoxine Hcl (Vitamin B6) 50 Mg Tablet) 100 mg PO DAILY [facility] Last Admin: 12/09/21 08:05 Dose: 100 mg Sodium Chloride (0.9 % Sodium Chloride Flush 3 Ml Syringe) 3 ml IVFLUSH QSHIFT [facility] Last Admin: 12/09/21 08:06 Dose: Not Given Vitamin D (Cholecalciferol (Vitamin D3) 25 Mcg Tablet) 50 mcg PO DAILY NOHELIA Last Admin: 12/09/21 08:05 Dose: 50 mcg Home Medications Medication Instructions Recorded Confirmed Last Taken Type furosemide 40 mg tablet 40 mg PO BID 08/28/20 12/08/21 12/08/21 History levothyroxine 112 mcg tablet 112 mcg PO DAILY 08/28/20 12/08/21 12/08/21 History lisinopril 10 mg tablet 10 mg PO DAILY 08/28/20 12/08/21 12/08/21 History atorvastatin 10 mg tablet 1 tab PO DAILY@1700 04/05/21 12/08/21 12/07/21 History metformin 500 mg tablet,extended 1 tab PO DAILY@1700 04/06/21 12/08/21 12/07/21 History release 24 hr pyridoxine (vitamin B6) 100 mg 1 tab PO DAILY 04/06/21 12/08/21 12/08/21 History tablet omeprazole 20 mg capsule,delayed 20 mg PO DAILY@0630 04/29/21 12/08/21 Unknown History release cholecalciferol (vitamin D3) 50 50 mcg PO DAILY 12/08/21 12/08/21 12/08/21 History mcg (2,000 unit) capsule (Vitamin D3) Physical Exam Vital Signs: Vital Signs: Last Vital Signs Temp 98.7 F 12/09/21 06:38 Pulse 79 12/09/21 06:38 Resp 16 12/09/21 06:38 BP 100/50 L 12/09/21 06:38 Pulse Ox 99 12/09/21 06:38 O2 Del Method 12/09/21 06:38 BMI result Body Mass Index 32.5 Const: General: no acute distress and well developed Nutritional Appeara nce: well nourished Orientation/consciousness: patient oriented x3 HEENT: Head: Yes normocephalic and Yes atraumatic Ears: hearing grossly normal bilaterally Resp: Effort & Inspection: normal respiratory effort, no audible wheezes, no cough and no respiratory distress GI: Inspection: Yes normal to inspection Palpation (GI): Soft to palpation, Tenderness to palpation present (GI) ( right flank) in the RLQ, no guarding and not rigid Percussion: Yes normal to percussion Auscultation: normal bowel sounds Skin: General skin exam: no rashes or lesions noted Neuro: General: patient oriented x3 Extrem: General: Yes no clubbing, cyanosis or edema Results Labs Result diagrams: 12/09/21 05:09 12/08/21 11:50 Labs: Abnormal lab results 12/08/21 12/08/21 12/08/21 Range/Units 11:50 11:50 14:23 WBC 23.2 H (4.8-10.8) X10*3/uL RBC 3.95 L (4.20-5.50) X10*6/uL Hgb 11.5 L (12.0-16.0) g/dl Hct 34.9 L (37.0-47.0) % Plt Count 477 H D (160-400) X10*3/uL MPV 9.2 L (9.4-12.3) fL Immature Gran % (Auto) 2.4 H (0.0-0.4) % Neut % (Auto) 83.6 H (45-73) % Lymph % (Auto) 9.3 L (20-40) % Abs Immat Gran (auto) 0.56 H (0.00-0.03) X10*3/uL Absolute Neuts (auto) 19.4 H (2.0-8.3) x10*3/uL PT (10.0-13.1) SEC INR (0.9-1.1) Sodium 133 L (135-145) mmol/L Carbon Dioxide 21 L (22-29) mmol/L Random Glucose 164 H (60-115) mg/dL AST 61 H (5-31) U/L ALT 61 H (0-31) U/L Albumin 3.1 L (3.5-5.0) g/dL Urine Blood Moderate (2+) H (Negative) Ur Leukocyte Esterase Large (3+) H (Negative) Urine WBC >50 H (0-5) /HPF 12/09/21 12/09/21 Range/Units 05:09 05:09 WBC 19.7 H (4.8-10.8) X10*3/uL RBC 3.21 L (4.20-5.50) X10*6/uL Hgb 9.1 L D (12.0-16.0) g/dl Hct 28.1 L (37.0-47.0) % Plt Count (160-400) X10*3/uL MPV 9.2 L (9.4-12.3) fL Immature Gran % (Auto) 2.3 H (0.0-0.4) % Neut % (Auto) 82.9 H (45-73) % Lymph % (Auto) 8.9 L (20-40) % Abs Immat Gran (auto) 0.46 H (0.00-0.03) X10*3/uL Absolute Neuts (auto) 16.3 H (2.0-8.3) x10*3/uL PT 17.6 H (10.0-13.1) SEC INR 1.5 H (0.9-1.1) Sodium (135-145) mmol/L Carbon Dioxide (22-29) mmol/L Random Glucose (60-115) mg/dL AST (5-31) U/L ALT (0-31) U/L Albumin (3.5-5.0) g/dL Urine Blood (Negative) Ur Leukocyte Esterase (Negative) Urine WBC (0-5) /HPF Short CBC 12/08/21 12/09/21 Range/Units 11:50 05:09 WBC 23.2 H 19.7 H (4.8-10.8) X10*3/uL Hgb 11.5 L 9.1 L D (12.0-16.0) g/dl Hct 34.9 L 28.1 L (37.0-47.0) % Plt Count 477 H D 327 D (160-400) X10*3/uL BMP 12/08/21 11:50 Sodium 133 L Potassium 3.8 Chloride 96 Carbon Dioxide 21 L BUN 16 Creatinine 1.20 Calcium 8.8 Liver Function 12/08/21 Range/Units 11:50 Total Bilirubin 0.6 (0.0-1.0) mg/dL Direct Bilirubin 0.4 (0.0-0.5) mg/dL AST 61 H (5-31) U/L ALT 61 H (0-31) U/L Alkaline Phosphatase 79 (39-117) U/L Albumin 3.1 L (3.5-5.0) g/dL Urine 12/08/21 Range/Units 14:23 Urine Color Yellow Urine Appearance Cloudy Urine pH 5.0 (5.0-9.0) Ur Specific [place] 1.010 (1.005-1.025) Urine Protein Trace (Neg-Trace) mg/dL Urine Glucose (UA) Negative (Negative) mg/dL All other labs normal. Assessment and Plan (1) Retroperitoneal fluid collection: Status: Acute (2) Cirrhosis of liver: Status: Acute (3) Bilateral nephrolithiasis: Status: Acute (4) Leukocytosis: Status: Acute Plan 76-year-old female patient presenting with prior history of nephrolithiasis now presenting with a large fluid collection in the right retroperitoneum contiguous with the right kidney suggestive of a right retroperitoneal abscess. The patient is found to have a markedly elevated WBC. Mild diverticulitis is noted on CT but this appears separate and uncomplicated. IR drainage of the fluid collection is recommended. I discussed this with Dr. Nelson and she agrees with the plan. I reviewed this with the patient today and she also agrees. Will check INR/PT. Procedures Date of Service Date of Service: 12/09/21
[2021-12-09] MEDS: Phytonadione (Vit K1) 10 MG in 0.9 % Sodium Chloride 50 ML 51 MG IV (09:25)
[2021-12-09 09:59] LABS: Iron 22 mcg/dL (30-160); Percent Iron Saturation 13 % (15-50); Total Iron Binding Capacity 168 mcg/dL (228-428); Unsaturated Iron Binding 146 ug/dL
[2021-12-09 10:06] LABS: Hematocrit 31.4 % (37.0-47.0); Hemoglobin 10.3 g/dl (12.0-16.0); Mean Corpuscular HGB Conc 32.8 g/dl (31.0-35.0); Mean Corpuscular Hemoglobin 29.1 pg (27.0-33.0); Mean Corpuscular Volume 88.7 fL (80.0-98.0); Mean Platelet Volume 9.2 fL (9.4-12.3); Platelet Count 444 X10*3/uL (160-400); Red Blood Count 3.54 X10*6/uL (4.20-5.50); Red Cell Distribution Width 15.1 % (11.0-16.0); White Blood Count 22.7 X10*3/uL (4.8-10.8)
[2021-12-09 10:19] LABS: Ferritin 534 ng/mL (10-250)
--- NOTE | 2021-12-09 10:33 | PC.NURSE ---
PT DENIES SOB, DIZZINESS, USING WHEELCHAIR FOR TRANSPORT TO RESTROOM WITH NO ISSUE. A&OX4, SKIN PWD.
[2021-12-09 10:46] LABS: Vitamin B12 218 pg/mL (200-900)
--- NOTE | 2021-12-09 13:10 | MHC.CM.PN ---
met withj pt in ed overflow who explinsm that she lives with a s/o she had no servceis ,she is covid vax unsure as to the number dc plan home no services
[2021-12-09 13:15] LABS: Glucose, Whole Blood 115 mg/dL (60-115)
--- NOTE | 2021-12-09 13:43 | HO.PM.IMPN ---
Subjective Subjective Date of Service: 12/09/21 Interval History: possible Retroperitoneal abscess? Review of Systems patient still has back pain similar to yesterday but says is well controlled with pain medications. Denies any abdominal pain or nausea vomiting or any blood in the stool or melena. Physical Exam Vital Signs: Vital Signs: Last Vital Signs Temp 97.9 F 12/09/21 13:04 Pulse 80 12/09/21 13:04 Resp 16 12/09/21 13:04 BP 109/53 L 12/09/21 13:04 Pulse Ox 96 12/09/21 13:04 O2 Del Method 12/09/21 13:04 BMI result Body Mass Index 32.5 Appearance: Alert.? Oriented X3.? cvs: rrr, [id number] . res: clear to auscultation ,no rhonchii or wheezing abd: no rebound or guarding ,back pain , right sided lateral back pain,upper right buttock , bs present. ? No erythema or any fluctuation ext pulses present , no cyanosis . neuro: axo3 , nonfocal. Objective Data Active Medications Acetaminophen (Acetaminophen 325 Mg Tablet) 650 mg PO Q6H PRN PRN Reason: Pain, Mild, fever Last Admin: 12/09/21 02:21 Dose: 650 mg Documented By: NINOSKA Atorvastatin Calcium (Atorvastatin Calcium 10 Mg Tablet) 10 mg PO DAILY@1700 [facility] Last Admin: 12/08/21 19:58 Dose: 10 mg Documented By: ANGEL LUIS Dextrose (Dextrose 50 % 25 Gm/50 Ml Syringe) 25 gm IVPUSH Q15M PRN; Protocol PRN Reason: per Hypoglycemia Standing Ord. Furosemide (Furosemide 40 Mg Tablet) 40 mg PO BID [facility]; Protocol Last Admin: 12/09/21 08:05 Dose: 40 mg Documented By: AMILCAR Glucose (Glucose Gel 15 Gm Gel..Gram.) 15 gm PO Q15M PRN; Protocol PRN Reason: per Hypoglycemia Standing Ord. Hydromorphone HCl (Hydromorphone Hcl 0.5 Mg/0.5 Ml Syringe) 0.25 mg IVPUSH Q4H PRN; Protocol PRN Reason: Pain, Moderate (Pain Scale 4-6 Last Admin: 12/09/21 13:28 Dose: 0.25 mg Documented By: MIGUEL Ceftriaxone Sodium 2 gm/ (Sodium Chloride) 50 mls @ 100 mls/hr IV Q24H [facility] Metronidazole (Flagyl) 500 mg in 100 mls @ 100 mls/hr IV Q8H [facility] Last Infusion: 12/09/21 12:51 Dose: 0 mls/hr Documented By: AMILCAR Insulin Human Lispro (Insulin Lispro 100 Unit/Ml 3 Ml Vial) 0 unit SUBCUT QIDACHS [facility]; Protocol Last Admin: 12/09/21 13:16 Dose: Not Given Documented By: MIGUEL Non-Admin Reason: No Insulin Coverage Levothyroxine Sodium (Levothyroxine Sodium 112 Mcg Tablet) 112 mcg PO DAILY@0600 [facility] Last Admin: 12/09/21 06:34 Dose: 112 mcg Documented By: JESIKALITTROY Omeprazole (Omeprazole 20 Mg Capsule.Dr) 20 mg PO DAILY@0630 [facility] Last Admin: 12/09/21 06:34 Dose: 20 mg Documented By: NINOSKA Ondansetron HCl (Ondansetron Hcl 4 Mg/2 Ml Vial) 4 mg IVPUSH Q8H PRN PRN Reason: Nausea and Vomiting Oxycodone HCl (Oxycodone Hcl Immed Release 5 Mg Tablet) 5 mg PO Q6H PRN PRN Reason: Pain, Moderate (Pain Scale 4-6 Pharmacy Consult (Consult Rx Perform Med Rec) 1 each MISCELLANE ONCE PRN PRN Reason: Consult order Pyridoxine HCl (Pyridoxine Hcl (Vitamin B6) 50 Mg Tablet) 100 mg PO DAILY [facility] Last Admin: 12/09/21 08:05 Dose: 100 mg Documented By: AMILCAR Sodium Chloride (0.9 % Sodium Chloride Flush 3 Ml Syringe) 3 ml IVFLUSH QSHIFT [facility] Last Admin: 12/09/21 08:06 Dose: Not Given Documented By: AMILCAR Non-Admin Reason: See Note Vitamin D (Cholecalciferol (Vitamin D3) 25 Mcg Tablet) 50 mcg PO DAILY [facility] Last Admin: 12/09/21 08:05 Dose: 50 mcg Documented By: AMILCAR Labs CBC & Chem 7: 12/09/21 09:42 12/08/21 11:50 Labs: Laboratory Results - last 24 hr 12/08/21 12/08/21 12/08/21 11:50 11:50 14:23 MCV MCH MCHC RDW Plt Count MPV Immature Gran % (Auto) Neut % (Auto) Lymph % (Auto) Blair % (Auto) Eos % (Auto) Baso % (Auto) Lymph # (Auto) Blair # (Auto) Eos # (Auto) Baso # (Auto) Abs Immat Gran (auto) Absolute Neuts (auto) Absolute Nucleated RBC Nucleated RBC % (auto) PT INR POC Glucose Lactic Acid Magnesium 2.0 Iron 22 L TIBC 168 L % Saturation 13 L Unsat Iron Binding 146 Ferritin 534 H Vitamin B12 218 Urine Color Yellow Urine Appearance Cloudy Urine pH 5.0 Ur Specific [place] 1.010 Urine Protein Trace Urine Glucose (UA) Negative Urine Ketones Negative Urine Blood Moderate (2+) H Urine Nitrite Negative Ur Leukocyte Esterase Large (3+) H Urine RBC 0-2 Urine WBC >50 H Ur Squamous Epith Cells 0-2 Urine Bacteria None Seen Hyaline Casts 0-2 COVID-19 (JOSE MARIA) COVID-19 Clin Com Blood Type Antibody Screen 12/08/21 12/08/21 12/08/21 14:50 15:01 18:04 MCV MCH MCHC RDW Plt Count MPV Immature Gran % (Auto) Neut % (Auto) Lymph % (Auto) Blair % (Auto) Eos % (Auto) Baso % (Auto) Lymph # (Auto) Blair # (Auto) Eos # (Auto) Baso # (Auto) Abs Immat Gran (auto) Absolute Neuts (auto) Absolute Nucleated RBC Nucleated RBC % (auto) PT INR POC Glucose Lactic Acid 1.3 Magnesium Cancelled Iron TIBC % Saturation Unsat Iron Binding Ferritin Vitamin B12 Urine Color Urine Appearance Urine pH Ur Specific [place] Urine Protein Urine Glucose (UA) Urine Ketones Urine Blood Urine Nitrite Ur Leukocyte Esterase Urine RBC Urine WBC Ur Squamous Epith Cells Urine Bacteria Hyaline Casts COVID-19 (JOSE MARIA) Negative COVID-19 Clin Com See Note Blood Type Antibody Screen 12/08/21 12/08/21 12/09/21 21:16 21:40 05:09 MCV 87.5 MCH 28.3 MCHC 32.4 RDW 15.1 Plt Count 327 D MPV 9.2 L Immature Gran % (Auto) 2.3 H Neut % (Auto) 82.9 H Lymph % (Auto) 8.9 L Blair % (Auto) 5.2 Eos % (Auto) 0.4 Baso % (Auto) 0.3 Lymph # (Auto) 1.8 Blair # (Auto) 1.0 Eos # (Auto) 0.1 Baso # (Auto) 0.1 Abs Immat Gran (auto) 0.46 H Absolute Neuts (auto) 16.3 H Absolute Nucleated RBC 0.000 Nucleated RBC % (auto) 0.0 PT INR POC Glucose 114 Lactic Acid Magnesium Iron TIBC % Saturation Unsat Iron Binding Ferritin Vitamin B12 Urine Color Urine Appearance Urine pH Ur Specific [place] Urine Protein Urine Glucose (UA) Urine Ketones Urine Blood Urine Nitrite Ur Leukocyte Esterase Urine RBC Urine WBC Ur Squamous Epith Cells Urine Bacteria Hyaline Casts COVID-19 (JOSE MARIA) COVID-[employer] Com Blood Type O Positive Antibody Screen NEGATIVE 12/09/21 12/09/21 12/09/21 05:09 07:30 09:42 MCV 88.7 MCH 29.1 MCHC 32.8 RDW 15.1 Plt Count 444 H D MPV 9.2 L Immature Gran % (Auto) Neut % (Auto) Lymph % (Auto) Blair % (Auto) Eos % (Auto) Baso % (Auto) Lymph # (Auto) Blair # (Auto) Eos # (Auto) Baso # (Auto) Abs Immat Gran (auto) Absolute Neuts (auto) Absolute Nucleated RBC 0.000 Nucleated RBC % (auto) 0.0 PT 17.6 H INR 1.5 H POC Glucose 103 Lactic Acid Magnesium Iron TIBC % Saturation Unsat Iron Binding Ferritin Vitamin B12 Urine Color Urine Appearance Urine pH Ur Specific [place] Urine Protein Urine Glucose (UA) Urine Ketones Urine Blood Urine Nitrite Ur Leukocyte Esterase Urine RBC Urine WBC Ur Squamous Epith Cells Urine Bacteria Hyaline Casts COVID-19 (JOSE MARIA) COVID-19 [employer] Com Blood Type Antibody Screen 12/09/21 13:10 MCV MCH MCHC RDW Plt Count MPV Immature Gran % (Auto) Neut % (Auto) Lymph % (Auto) Blair % (Auto) Eos % (Auto) Baso % (Auto) Lymph # (Auto) Blair # (Auto) Eos # (Auto) Baso # (Auto) Abs Immat Gran (auto) Absolute Neuts (auto) Absolute Nucleated RBC Nucleated RBC % (auto) PT INR POC Glucose 115 Lactic Acid Magnesium Iron TIBC % Saturation Unsat Iron Binding Ferritin Vitamin B12 Urine Color Urine Appearance Urine pH Ur Specific [place] Urine Protein Urine Glucose (UA) Urine Ketones Urine Blood Urine Nitrite Ur Leukocyte Esterase Urine RBC Urine WBC Ur Squamous Epith Cells Urine Bacteria Hyaline Casts COVID-19 ([facility]SE [facility]) COVID-19 Clin Com Blood Type Antibody Screen Microbiology Microbiology Results: Microbiology 12/08/21 Unknown Urine Culture - Final Urine clean catch - Urine alonso top Assessment and Plan (1) Retroperitoneal fluid collection: Status: Acute (2) Cirrhosis of liver: Status: Acute (3) Abscess, retroperitoneal: Status: Acute (4) UTI (urinary tract infection): Status: Acute Plan 76-year-old female with hypertension, hypothyroidism, [id number] type 2 diabetes, GERD, hyperlipidemia, anxiety, history of nephrolithiasis, and fatty liver to be admitted for possible retroperitoneal collection concerning for retroperitoneal abscess given history urologic procedures in the past vs evolving perinephric hematoma with leukocytosis. #Possible Retroperitoneal abscess vs evolving periphric collection unclear etiology with infection -Leukocytosis 23.1. Right low back/hip pain without injury with subjective fevers/night sweats -CT abdomen/pelvis showing right psoas fluid collection measuring 10 x 5 x 7 cm, contiguous with the right posterior perinephric fascia.? No associated gas, however given leukocytosis and fever, abscess should be considered.? There also multiple large nonobstructive calculi redemonstrated and right kidney as well as a stable appearing rounded fluid density structure abutting or emanating from the lower right pole of the kidney, possibly chronic perinephric hematoma. -UA with 3+ leuks, 2+ blood, no bacteria, no nitrates -Blood cultures and urine culture pending -2g IV ceftriaxone daily and metronidazole 500mg q8h -General surgery and urology consults placed -Consider ID input later if needed -leucocytois and h/h slightly trending down , no fevers , cultures pending -Pain management -T&S ordered am -NPO -Admit to telemetry for close monitoring of vital signs seen by surgery-added urology eval- may need drainge of collection-ir guided eval/labs added #Noninsulin dependent type 2 diabetes -POC glucose -Diabetic diet now, NPO after midnight -Humalog on ss #HTN- bp soft -Continue lasix -Hold lisinopril #hypothyroidism -continue levothyroxone #Gerd -continue ppo #hld -continue statin #Cirrhosis of the liver -CT abd/pelvis with morphologically cirrhotic liver -AST 61/ALT 61 -No ETOH hx -Needs outpt follow up normocytic anemia: h/h somewhat trend down 10.3/31.4 Denies any blood in the stool or melena. Monitor CBC, anemia workup added obesity: Encouraged to lose weight. DVT prophylaxis- mech devices. ongoing inpatient need:retroperitoneal fluid collection with possible retroperitoneal abscess requiring IV antibiotics, close monitoring clinically,cultures followup and further evaluation with expert cosultation regarding retroperitoneal collection and possible drainage. Quality Stroke Does the patient have a stroke diagnosis?: No VTE Prior VTE?: No VTE Risk Level:: Medical - moderate - high VTE Device Contraindication: Treatment Not Indicated VTE Drug Contraindication: N/A - Med Ordered
[2021-12-09] MEDS: Lactated Ringers 1,000 ML 75 ML IVCONT (14:48)
--- NOTE | 2021-12-09 17:28 | HO.RADPN ---
RADIOLOGY Narrative Narrative: 12 fr drain placed in right psaos collection using CT guidance. 200 ml purulent fluid removed. Specimen sent.
[2021-12-09] MEDS: cefTRIAXone sodium 2 GM in 0.9 % Sodium Chloride 50 ML IV (18:22)
[2021-12-09 18:27] LABS: Glucose, Whole Blood 112 mg/dL (60-115)
[2021-12-09] MEDS: Atorvastatin Calcium 10 MG TABLET PO (18:29)
[2021-12-09 19:03] LABS: BF Shift QC OK YES; Man Diluent Bkgrd OK YES; RBC Peritoneal Fluid 0.343 X10*6/uL
[2021-12-09 19:31] LABS: Lymphocyte Peritoneal Fl 43 %; MN% 62.6 %; Neutrophils Peritoneal Fluid 34 %; PMN% 37.4 %
[2021-12-09 19:32] LABS: Monocytes Peritoneal Fl 3 %; Other Peritioneal Fl 20 %
[2021-12-09] MEDS: 0.9 % Sodium Chloride Flush 3 ML SYRINGE IVFLUSH (19:36)
[2021-12-09 19:51] LABS: pH Peritoneal Fluid < 6.80
--- NOTE | 2021-12-09 22:01 | PC.NURSE ---
pt refusing sequentials. Dr. Jack collazo.
[2021-12-10 02:37] VITALS: BP 114/54; PULSE 75; RESP 18; TEMP 36.9; O2SAT 98
[2021-12-10] MEDS: metroNIDAZOLE/NS 500 MG/100 ML PIGGYBACK 100 MG IV ×3 (02:38→18:26)
[2021-12-10] MEDS: oxyCODONE HCl Immed Release 5 MG TABLET PO ×2 (02:43→13:31)
[2021-12-10] MEDS: Acetaminophen 325 MG TABLET 650 MG PO (03:46)
[2021-12-10] MEDS: Lactated Ringers 1,000 ML 75 ML IVCONT (06:00)
[2021-12-10] MEDS: Levothyroxine Sodium 112 MCG TABLET PO (06:00)
[2021-12-10] MEDS: Omeprazole 20 MG CAPSULE.DR PO (06:00)
[2021-12-10 07:07] LABS: Hematocrit 28.5 % (37.0-47.0); Hemoglobin 9.3 g/dl (12.0-16.0); Mean Corpuscular HGB Conc 32.6 g/dl (31.0-35.0); Mean Corpuscular Hemoglobin 28.9 pg (27.0-33.0); Mean Corpuscular Volume 88.5 fL (80.0-98.0); Mean Platelet Volume 9.2 fL (9.4-12.3); Platelet Count 350 X10*3/uL (160-400); Red Blood Count 3.22 X10*6/uL (4.20-5.50); White Blood Count 16.2 X10*3/uL (4.8-10.8)
[2021-12-10 07:17] VITALS: BP 97/52; PULSE 68; RESP 18; TEMP 36; O2SAT 98
[2021-12-10 07:25] LABS: Anion Gap 16 (12-20); Blood Urea Nitrogen 17 mg/dL (9-16); Calcium 8.1 mg/dL (8.4-10.2); Carbon Dioxide 21 mmol/L (22-29); Chloride 99 mmol/L (96-108); Creatinine Clr Calc Pharmacy 41.2; Estimated Glomerular Filt Rate 41; Glucose Random 81 mg/dL (60-115); Potassium 3.4 mmol/L (3.3-5.1); Sodium 133 mmol/L (135-145)
[2021-12-10 07:34] LABS: Glucose, Whole Blood 94 mg/dL (60-115)
--- NOTE | 2021-12-10 08:12 | PM.PNGS ---
Subjective Subjective Date of Service: 12/10/21 Interval history: Patient reports some tenderness at the drain site but otherwise feels well. She reports that she tolerated the drain procedure well. Large collection of pus drained, cultures pending. Physical Exam Vital Signs: Vital Signs: Last Vital Signs Temp 96.8 F 12/10/21 07:17 Pulse 68 12/10/21 07:17 Resp 18 12/10/21 07:17 BP 97/52 L 12/10/21 07:17 Pulse Ox 98 12/10/21 07:17 O2 Del Method 12/10/21 07:17 BMI result Body Mass Index 32.5 Const: General: no acute distress Nutritional Appearance: average body habitus Orientation/consciousness: patient oriented x3 Resp: Effort & Inspection: normal respiratory effort GI: Inspection: Yes normal to inspection Palpation (GI): Soft to palpation, nontender, no guarding and not rigid Percussion: Yes normal to percussion Auscultation: normal bowel sounds Neuro: General: patient oriented x3 Extrem: General: Yes normal to inspection Objective Data Active Medications Acetaminophen (Acetaminophen 325 Mg Tablet) 650 mg PO Q6H PRN PRN Reason: Pain, Mild, fever Last Admin: 12/10/21 03:46 Dose: 650 mg Documented By: RUBIO Atorvastatin Calcium (Atorvastatin Calcium 10 Mg Tablet) 10 mg PO DAILY@1700 [facility] Last Admin: 12/09/21 18:29 Dose: 10 mg Documented By: MIGUEL Dextrose (Dextrose 50 % 25 Gm/50 Ml Syringe) 25 gm IVPUSH Q15M PRN; Protocol PRN Reason: per Hypoglycemia Standing Ord. Docusate Sodium (Docusate Sodium 100 Mg Capsule) 100 mg PO BEDTIME NOHELIA Furosemide (Furosemide 40 Mg Tablet) 40 mg PO BID [facility]; Protocol Last Admin: 12/09/21 08:05 Dose: 40 mg Documented By: AMILCAR Glucose (Glucose Gel 15 Gm Gel..Gram.) 15 gm PO Q15M PRN; Protocol PRN Reason: per Hypoglycemia Standing Ord. Hydromorphone HCl (Hydromorphone Hcl 0.5 Mg/0.5 Ml Syringe) 0.25 mg IVPUSH Q4H PRN; Protocol PRN Reason: Pain, Moderate (Pain Scale 4-6 Last Admin: 12/09/21 13:28 Dose: 0.25 mg Documented By: MIGUEL Ceftriaxone Sodium 2 gm/ (Sodium Chloride) 50 mls @ 100 mls/hr IV Q24H [facility] Last Infusion: 12/09/21 19:00 Dose: 0 mls/hr Documented By: MIGUEL Metronidazole (Flagyl) 500 mg in 100 mls @ 100 mls/hr IV Q8H [facility] Last Infusion: 12/10/21 03:48 Dose: 0 mls/hr Documented By: RUBIO Phytonadione 10 mg/ Sodium (Chloride) 51 mls @ 51 mls/hr IV ONCE ONE Stop: 12/10/21 08:26 Albumin Human (Kedbumin 25 %) 100 mls @ 100 mls/hr IV Q6H [facility] Stop: 12/11/21 02:29 Insulin Human Lispro (Insulin Lispro 100 Unit/Ml 3 Ml Vial) 0 unit SUBCUT QIDACHS [facility]; Protocol Last Admin: 12/09/21 19:36 Dose: Not Given Documented By: RUBIO Non-Admin Reason: No Insulin Coverage Levothyroxine Sodium (Levothyroxine Sodium 112 Mcg Tablet) 112 mcg PO DAILY@0600 [facility] Last Admin: 12/10/21 06:00 Dose: 112 mcg Documented By: RUBIO Lidocaine (Lidocaine 4 % Patch Adh..Patch) 1 patch TRANSDERMA DAILY [facility]; Protocol Omeprazole (Omeprazole 20 Mg Capsule.Dr) 20 mg PO DAILY@0630 [facility] Last Admin: 12/10/21 06:00 Dose: 20 mg Documented By: RUBIO Ondansetron HCl (Ondansetron Hcl 4 Mg/2 Ml Vial) 4 mg IVPUSH Q8H PRN PRN Reason: Nausea and Vomiting Oxycodone HCl (Oxycodone Hcl Immed Release 5 Mg Tablet) 5 mg PO Q6H PRN PRN Reason: Pain, Moderate (Pain Scale 4-6 Last Admin: 12/10/21 02:43 Dose: 5 mg Documented By: RUBIO Pharmacy Consult (Consult Rx Perform Med Rec) 1 each MISCELLANE ONCE PRN PRN Reason: Consult order Polyethylene Glycol (Polyethylene Glycol 3350 17 Gm Powd.Pack) 17 gm PO DAILY PRN PRN Reason: Constipation Pyridoxine HCl (Pyridoxine Hcl (Vitamin B6) 50 Mg Tablet) 100 mg PO DAILY [facility] Last Admin: 12/09/21 08:05 Dose: 100 mg Documented By: AMILCAR Sodium Chloride (0.9 % Sodium Chloride Flush 3 Ml Syringe) 3 ml IVFLUSH QSHIFT [facility] Last Admin: 12/09/21 19:36 Dose: 3 ml Documented By: RUBIO Vitamin D (Cholecalciferol (Vitamin D3) 25 Mcg Tablet) 50 mcg PO DAILY [facility] Last Admin: 12/09/21 08:05 Dose: 50 mcg Documented By: AMILCAR Labs CBC & Chem 7: 12/10/21 06:01 12/10/21 06:01 Labs: Laboratory Results - last 24 hr 12/08/21 12/08/21 12/09/21 11:50 11:50 09:42 MCV 88.7 MCH 29.1 MCHC 32.8 RDW 15.1 Plt Count 444 H D MPV 9.2 L Absolute Nucleated RBC 0.000 Nucleated RBC % (auto) 0.0 Anion Gap Estim Creat Clear Calc Estimated GFR POC Glucose Random Glucose Calcium Iron 22 L TIBC 168 L % Saturation 13 L Unsat Iron Binding 146 Ferritin 534 H Vitamin B12 218 Peritoneal pH Peritoneal WBC Peritoneal RBC Periton Neutrophils Periton Lymphocytes Peritoneal Monocytes Peritoneal Other Cells 12/09/21 12/09/21 12/09/21 13:10 17:13 17:13 MCV MCH MCHC RDW Plt Count MPV Absolute Nucleated RBC Nucleated RBC % (auto) Anion Gap Estim Creat Clear Calc Estimated GFR POC Glucose 115 Random Glucose Calcium Iron TIBC % Saturation Unsat Iron Binding Ferritin Vitamin B12 Peritoneal pH < 6.80 Peritoneal WBC 1341.700 Peritoneal RBC 0.343 Periton Neutrophils 34 Periton Lymphocytes 43 Peritoneal Monocytes 3 Peritoneal Other Cells 20 12/09/21 12/10/21 12/10/21 18:23 06:01 06:01 MCV 88.5 MCH 28.9 MCHC 32.6 RDW 15.0 Plt Count 350 MPV 9.2 L Absolute Nucleated RBC 0.000 Nucleated RBC % (auto) 0.0 Anion Gap 16 Estim Creat Clear Calc 41.2 Estimated GFR 41 POC Glucose 112 Random Glucose 81 Calcium 8.1 L D Iron TIBC % Saturation Unsat Iron Binding Ferritin Vitamin B12 Peritoneal pH Peritoneal WBC Peritoneal RBC Periton Neutrophils Periton Lymphocytes Peritoneal Monocytes Peritoneal Other Cells 12/10/21 07:16 MCV MCH MCHC RDW Plt Count MPV Absolute Nucleated RBC Nucleated RBC % (auto) Anion Gap Estim Creat Clear Calc Estimated GFR POC Glucose 94 Random Glucose Calcium Iron TIBC % Saturation Unsat Iron Binding Ferritin Vitamin B12 Peritoneal pH Peritoneal WBC Peritoneal RBC Periton Neutrophils Periton Lymphocytes Peritoneal Monocytes Peritoneal Other Cells Microbiology Microbiology Results: Microbiology 12/08/21 15:29 Blood Culture - Preliminary Blood - Venous No growth after 24 hours. 12/08/21 15:01 Blood Culture - Preliminary Blood - Venous No growth after 24 hours. 12/08/21 Unknown Urine Culture - Final Urine clean catch - Urine alonso top Procedures Date of Service Date of Service: 12/10/21 Progress Note: A&P Assessment and plan (1) Abscess, retroperitoneal: Status: Acute Plan Pod 1 following IR drainage of retroperitoneal abscess right side, probable renal source. Abdominal exam is benign with no peritoneal signs. No surgical intervention anticipated from my standpoint. Will defer to Dr. Reis for any further recommendations. I will sign off, please re-consult for new concerns. Time Spent With Patient Time: Total time spent is greater than 50% in coordination of care (as documented) at patient's floor/unit and/or counseling patient: Quality Stroke Does the patient have a stroke diagnosis?: No VTE Prior VTE?: No VTE Risk Level:: Medical - moderate - high VTE Device Contraindication: Treatment Not Indicated VTE Drug Contraindication: N/A - Med Ordered
--- NOTE | 2021-12-10 08:39 | P.CNUR_ITS ---
History of Present Illness Consult details Consult date: 12/09/21 Narrative: Consulting complaint: right psoas cristian Layne is a 76-year-old female Known to Urology Underwent procedure approximately 6 months ago for right-sided staghorn Presents to hospital with right-sided flank pain, elevated white count and fever WBC 23.2, creatinine 1.2 Imaging - Right psoas fluid collection measuring 10 x 5 x 7 cm, contiguous with the right posterior perinephric fascia. No associated gas, however given the presence of fever and elevated white blood cell count, abscess must be considered. This could also represent a chronic seroma as well. No apparent communication with renal pelvis Initial management suggested drainage with microbiology Subsequent CT urogram to examine for communication would be suggested Review of Systems Constitutional: Constitutional: Reports as per HPI and Reports no additional constitutional complaints Cardiovascular: Cardiovascular: Reports as per HPI and Reports no additional cardiovascular complaints Respiratory: Respiratory: Reports as per HPI and Reports no additional respiratory complaints Gastrointestinal: Gastrointestinal: Reports as per HPI and Reports no additional gastrointestinal complaints Genitourinary: Genitourinary: Reports as per HPI Musculoskeletal: Musculoskeletal: Reports no additional musculoskeletal complaints and Reports as per HPI Neurologic: Reports system reviewed and no additional complaints, except as documented and Reports as per HPI PMFSH Past Medical History Medical History Anxiety Cholelithiasis Cirrhosis of liver Diabetes mellitus, type II Does mobilize using walker Fatty liver Fibromyalgia Ganglion cyst HTN (hypertension) Hypercholesterolemia Hypothyroidism Left foot drop Low back pain Neuropathy OA (osteoarthritis) Obstructive airway disease Perirectal abscess Plantar fasciitis PONV (postoperative nausea and vomiting) Primary osteoarthritis of right knee RBBB Renal calculus, bilateral Renal calyceal dilation determined by ultrasound Renal stones Retained ureteral stent Sciatica Staghorn calculus Staghorn calculus UTI (urinary tract infection) Family History Family History Father Alcohol dependence Mother CHF (congestive heart failure) Other Alcoholic cirrhosis Surgical History Surgical History History of cystoscopy History of lithotripsy History of lumbar discectomy History of lumpectomy of both breasts History of surgery Hx of colonoscopy Status post cystoscopy with ureteral stent placement Social History Social History Household Members: Spouse Housing: House Do you presently have visiting nurse or other home services: No Alcohol intake: never Patient Tobacco Use Status: Former Tobacco user Quit Date: 1986 Tobacco use type: Cigarette Years Smoked: 27 Second Hand Smoke Exposure: No Advance Directives Date on File: 04/06/21 service: No Current occupational status: disabled Meds Allergies Allergy/AdvReac Type Severity Reaction Status Date / Time chlorpheniramine Allergy Severe HALLUCINATI Verified 12/02/21 09:26 [From TUSSIONEX] ONS escitalopram [ESCITALOPRAM] Allergy Severe DISSOCIATIVE Verified 12/02/21 09:26 REACTION fluoxetine [FLUOXETINE] Allergy Severe DISSOCIATIVE Verified 12/02/21 09:26 REACTION hydrocodone [From TUSSIONEX] Allergy Severe HALLUCINATI Verified 12/02/21 09:26 ONS ibuprofen [IBUPROFEN] Allergy Severe THROAT Verified 12/02/21 09:26 SWELLING Sulfa (Sulfonamide Allergy Severe DYSPNEA Verified 12/02/21 09:26 Antibiotics) [SULFA (SULFONAMIDE ANTIBIOTICS)] clarithromycin [From BIAXIN] Allergy Intermediate ABD.PAIN Verified 12/02/21 09:26 duloxetine [DULOXETINE] Allergy Intermediate FACIAL Verified 12/02/21 09:26 NUMBNESS erythromycin base Allergy Intermediate RASH Verified 12/02/21 09:26 [ERYTHROMYCIN BASE] Penicillins [PENICILLINS] Allergy Intermediate RASH Verified 12/02/21 09:26 tetracycline [TETRACYCLINE] Allergy Intermediate DIARRHEA Verified 12/02/21 09:26 ciprofloxacin [From CIPRO] Allergy Unknown ANAPHYLAXIS Verified 12/02/21 09:26 codeine [CODEINE] Allergy Unknown TINNITIS Verified 12/02/21 09:26 guaifenesin Allergy Unknown Unknown Verified 12/02/21 09:26 levofloxacin [From Levaquin] Allergy Unknown Unknown Verified 12/02/21 09:26 pregabalin Allergy Unknown Unknown Verified 12/02/21 09:26 Active Medications: Current Medications Acetaminophen (Acetaminophen 325 Mg Tablet) 650 mg PO Q6H PRN PRN Reason: Pain, Mild, fever Last Admin: 12/10/21 03:46 Dose: 650 mg Atorvastatin Calcium (Atorvastatin Calcium 10 Mg Tablet) 10 mg PO DAILY@1700 [facility] Last Admin: 12/09/21 18:29 Dose: 10 mg Dextrose (Dextrose 50 % 25 Gm/50 Ml Syringe) 25 gm IVPUSH Q15M PRN; Protocol PRN Reason: per Hypoglycemia Standing Ord. Docusate Sodium (Docusate Sodium 100 Mg Capsule) 100 mg PO BEDTIME [facility] Furosemide (Furosemide 40 Mg Tablet) 40 mg PO BID [facility]; Protocol Last Admin: 12/09/21 08:05 Dose: 40 mg Glucose (Glucose Gel 15 Gm Gel..Gram.) 15 gm PO Q15M PRN; Protocol PRN Reason: per Hypoglycemia Standing Ord. Hydromorphone HCl (Hydromorphone Hcl 0.5 Mg/0.5 Ml Syringe) 0.25 mg IVPUSH Q4H PRN; Protocol PRN Reason: Pain, Moderate (Pain Scale 4-6 Last Admin: 12/09/21 13:28 Dose: 0.25 mg Ceftriaxone Sodium 2 gm/ (Sodium Chloride) 50 mls @ 100 mls/hr IV Q24H [facility] Last Infusion: 12/09/21 19:00 Dose: Infused Metronidazole (Flagyl) 500 mg in 100 mls @ 100 mls/hr IV Q8H [facility] Last Infusion: 12/10/21 03:48 Dose: Infused Phytonadione 10 mg/ Sodium (Chloride) 51 mls @ 51 mls/hr IV ONCE ONE Stop: 12/10/21 08:26 Albumin Human (Kedbumin 25 %) 100 mls @ 100 mls/hr IV Q6H [facility] Stop: 12/11/21 02:29 Insulin Human Lispro (Insulin Lispro 100 Unit/Ml 3 Ml Vial) 0 unit SUBCUT QIDACHS [facility]; Protocol Last Admin: 12/10/21 08:16 Dose: Not Given Levothyroxine Sodium (Levothyroxine Sodium 112 Mcg Tablet) 112 mcg PO DAILY@0600 [facility] Last Admin: 12/10/21 06:00 Dose: 112 mcg Lidocaine (Lidocaine 4 % Patch Adh..Patch) 1 patch TRANSDERMA DAILY [facility]; Protocol Omeprazole (Omeprazole 20 Mg Capsule.Dr) 20 mg PO DAILY@0630 [facility] Last Admin: 12/10/21 06:00 Dose: 20 mg Ondansetron HCl (Ondansetron Hcl 4 Mg/2 Ml Vial) 4 mg IVPUSH Q8H PRN PRN Reason: Nausea and Vomiting Oxycodone HCl (Oxycodone Hcl Immed Release 5 Mg Tablet) 5 mg PO Q6H PRN PRN Reason: Pain, Moderate (Pain Scale 4-6 Last Admin: 12/10/21 02:43 Dose: 5 mg Pharmacy Consult (Consult Rx Perform Med Rec) 1 each MISCELLANE ONCE PRN PRN Reason: Consult order Polyethylene Glycol (Polyethylene Glycol 3350 17 Gm Powd.Pack) 17 gm PO DAILY PRN PRN Reason: Constipation Pyridoxine HCl (Pyridoxine Hcl (Vitamin B6) 50 Mg Tablet) 100 mg PO DAILY [facility] Last Admin: 12/09/21 08:05 Dose: 100 mg Sodium Chloride (0.9 % Sodium Chloride Flush 3 Ml Syringe) 3 ml IVFLUSH QSHIFT [facility] Last Admin: 12/09/21 19:36 Dose: 3 ml Vitamin D (Cholecalciferol (Vitamin D3) 25 Mcg Tablet) 50 mcg PO DAILY [facility] Last Admin: 12/09/21 08:05 Dose: 50 mcg Home Medications Medication Instructions Recorded Confirmed Last Taken Type furosemide 40 mg tablet 40 mg PO BID 08/28/20 12/08/21 12/08/21 History levothyroxine 112 mcg tablet 112 mcg PO DAILY 08/28/20 12/08/21 12/08/21 History lisinopril 10 mg tablet 10 mg PO DAILY 08/28/20 12/08/21 12/08/21 History atorvastatin 10 mg tablet 1 tab PO DAILY@1700 04/05/21 12/08/21 12/07/21 History metformin 500 mg tablet,extended 1 tab PO DAILY@1700 04/06/21 12/08/21 12/07/21 History release 24 hr pyridoxine (vitamin B6) 100 mg 1 tab PO DAILY 04/06/21 12/08/21 12/08/21 History tablet omeprazole 20 mg capsule,delayed 20 mg PO DAILY@0630 04/29/21 12/08/21 Unknown History release cholecalciferol (vitamin D3) 50 50 mcg PO DAILY 12/08/21 12/08/21 12/08/21 History mcg (2,000 unit) capsule (Vitamin D3) Physical Exam Vital Signs: Vital Signs: Last Vital Signs Temp 96.8 F 12/10/21 07:17 Pulse 68 12/10/21 07:17 Resp 18 12/10/21 07:17 BP 97/52 L 12/10/21 07:17 Pulse Ox 98 12/10/21 07:17 O2 Del Method 12/10/21 07:17 BMI result Body Mass Index 32.5 Const: General: cooperative, healthy appearing, comfortable and no acute distress Orientation/consciousness: patient oriented x3 HEENT: Face and sinus: Yes normal facial exam Mouth: moist mucous membranes Neck: Neck: Yes normal visual inspection, Yes full ROM and Yes trachea midline Chest: Chest palpation & inspection: normal inspection of the chest Resp: Effort & Inspection: normal respiratory effort, able to speak in complete sentences and no respiratory distress GI: Inspection: Yes normal to inspection Back/Spine/Pelvis: Cervical Spine: normal cervical lordosis Thoracic/Lumbar Spine: thoracic and lumbar spine normal to inspection Skin: General skin exam: no rashes or lesions noted Neuro: General: patient oriented x3, tone normal and moves all extremities Extrem: General: Yes normal to inspection and Yes capillary refill normal Results Labs Result diagrams: 12/11/21 06:08 12/11/21 06:08 Labs: Abnormal lab results 12/08/21 12/09/21 12/10/21 Range/Units 11:50 09:42 06:01 WBC 22.7 H 16.2 H (4.8-10.8) X10*3/uL RBC 3.54 L 3.22 L (4.20-5.50) X10*6/uL Hgb 10.3 L 9.3 L (12.0-16.0) g/dl Hct 31.4 L 28.5 L (37.0-47.0) % Plt Count 444 H D (160-400) X10*3/uL MPV 9.2 L 9.2 L (9.4-12.3) fL Sodium (135-145) mmol/L Carbon Dioxide (22-29) mmol/L BUN (9-16) mg/dL Calcium (8.4-10.2) mg/dL Iron 22 L (30-160) mcg/dL TIBC 168 L (228-428) mcg/dL % Saturation 13 L (15-50) % Ferritin 534 H (10-250) ng/mL 12/10/21 Range/Units 06:01 WBC (4.8-10.8) X10*3/uL RBC (4.20-5.50) X10*6/uL Hgb (12.0-16.0) g/dl Hct (37.0-47.0) % Plt Count (160-400) X10*3/uL MPV (9.4-12.3) fL Sodium 133 L (135-145) mmol/L Carbon Dioxide 21 L (22-29) mmol/L BUN 17 H (9-16) mg/dL Calcium 8.1 L D (8.4-10.2) mg/dL Iron (30-160) mcg/dL TIBC (228-428) mcg/dL % Saturation (15-50) % Ferritin (10-250) ng/mL Short CBC 12/09/21 12/10/21 Range/Units 09:42 06:01 WBC 22.7 H 16.2 H (4.8-10.8) X10*3/uL Hgb 10.3 L 9.3 L (12.0-16.0) g/dl Hct 31.4 L 28.5 L (37.0-47.0) % Plt Count 444 H D 350 (160-400) X10*3/uL BMP 12/10/21 06:01 Sodium 133 L Potassium 3.4 Chloride 99 Carbon Dioxide 21 L BUN 17 H Creatinine 1.27 Calcium 8.1 L D Urine 12/08/21 Range/Units 14:23 Urine Color Yellow Urine Appearance Cloudy Urine pH 5.0 (5.0-9.0) Ur Specific [place] 1.010 (1.005-1.025) Urine Protein Trace (Neg-Trace) mg/dL Urine Glucose (UA) Negative (Negative) mg/dL All other labs normal. Assessment and Plan (1) Abscess, retroperitoneal: Status: Acute Plan CT-guided drainage Procedures Date of Service Date of Service: 12/09/21
[2021-12-10] MEDS: Cholecalciferol (Vitamin D3) 25 MCG TABLET 50 MCG PO (09:00)
[2021-12-10] MEDS: Pyridoxine HCl (Vitamin B6) 50 MG TABLET 100 MG PO (09:01)
[2021-12-10] MEDS: 0.9 % Sodium Chloride Flush 3 ML SYRINGE IVFLUSH ×3 (09:02→20:51)
[2021-12-10] MEDS: Albumin Human 25 % 100 ML IV ×3 (09:03→19:50)
[2021-12-10 10:17] LABS: Folate 3.4 ng/mL (> or = 4.0)
[2021-12-10] MEDS: Phytonadione (Vit K1) 10 MG in 0.9 % Sodium Chloride 50 ML 51 MG IV (10:30)
[2021-12-10 11:22] VITALS: BP 106/54; PULSE 78; RESP 18; TEMP 36.1; O2SAT 97
[2021-12-10 11:27] LABS: Glucose, Whole Blood 108 mg/dL (60-115)
--- NOTE | 2021-12-10 11:32 | HO.PM.IMPN ---
Subjective Subjective Date of Service: 12/10/21 Interval History: possible? Retroperitoneal abscess? Review of Systems ?patient still has back pain similar to yesterday but says is well controlled with pain medications. ? Denies any abdominal pain or nausea vomiting or any blood in the stool or melena. Physical Exam Vital Signs: Vital Signs: Last Vital Signs Temp 96.9 F 12/10/21 11: Pulse 78 12/10/21 11: Resp 18 12/10/21 11:22 BP 106/54 L 12/10/21 11:22 Pulse Ox 97 12/10/21 11:22 O2 Del Method 12/10/21 11:22 BMI result Body Mass Index 32.5 Appearance: Alert.? Oriented X3.? cvs: rrr, [id number] . res: clear to auscultation ,no rhonchii or wheezing abd: no rebound or guarding ,back pain , right sided pain improvin , bs present. ? No erythema or any fluctuation ext pulses present , no cyanosis . neuro: axo3 , nonfocal. Objective Data Active Medications Acetaminophen (Acetaminophen 325 Mg Tablet) 650 mg PO Q6H PRN PRN Reason: Pain, Mild, fever Last Admin: 12/10/21 03:46 Dose: 650 mg Documented By: RUBOI Atorvastatin Calcium (Atorvastatin Calcium 10 Mg Tablet) 10 mg PO DAILY@1700 [facility] Last Admin: 12/09/21 18:29 Dose: 10 mg Documented By: MIGUEL Dextrose (Dextrose 50 % 25 Gm/50 Ml Syringe) 25 gm IVPUSH Q15M PRN; Protocol PRN Reason: per Hypoglycemia Standing Ord. Docusate Sodium (Docusate Sodium 100 Mg Capsule) 100 mg PO BEDTIME [facility] Furosemide (Furosemide 40 Mg Tablet) 40 mg PO BID [facility]; Protocol Last Admin: 12/09/21 08:05 Dose: 40 mg Documented By: AMILCAR Glucose (Glucose Gel 15 Gm Gel..Gram.) 15 gm PO Q15M PRN; Protocol PRN Reason: per Hypoglycemia Standing Ord. Hydromorphone HCl (Hydromorphone Hcl 0.5 Mg/0.5 Ml Syringe) 0.25 mg IVPUSH Q4H PRN; Protocol PRN Reason: Pain, Moderate (Pain Scale 4-6 Last Admin: 12/09/21 13:28 Dose: 0.25 mg Documented By: MIGUEL Ceftriaxone Sodium 2 gm/ (Sodium Chloride) 50 mls @ 100 mls/hr IV Q24H [facility] Last Infusion: 12/09/21 19:00 Dose: 0 mls/hr Documented By: MIGUEL Metronidazole (Flagyl) 500 mg in 100 mls @ 100 mls/hr IV Q8H [facility] Last Infusion: 12/10/21 03:48 Dose: 0 mls/hr Documented By: RUBIO Albumin Human (Kedbumin 25 %) 100 mls @ 100 mls/hr IV Q6H [facility] Stop: 12/11/21 02:29 Last Infusion: 12/10/21 10:37 Dose: 0 mls/hr Documented By: MIGUEL Insulin Human Lispro (Insulin Lispro 100 Unit/Ml 3 Ml Vial) 0 unit SUBCUT QIDACHS [facility]; Protocol Last Admin: 12/10/21 11:26 Dose: Not Given Documented By: MIGUEL Non-Admin Reason: No Insulin Coverage Levothyroxine Sodium (Levothyroxine Sodium 112 Mcg Tablet) 112 mcg PO DAILY@0600 [facility] Last Admin: 12/10/21 06:00 Dose: 112 mcg Documented By: RUBIO Lidocaine (Lidocaine 4 % Patch Adh..Patch) 1 patch TRANSDERMA DAILY [facility]; Protocol Last Admin: 12/10/21 09:16 Dose: Not Given Documented By: MIGUEL Non-Admin Reason: Patient Refused Omeprazole (Omeprazole 20 Mg Capsule.) 20 mg PO DAILY@0630 [facility] Last Admin: 12/10/21 06:00 Dose: 20 mg Documented By: RUBIO Ondansetron HCl (Ondansetron Hcl 4 Mg/2 Ml Vial) 4 mg IVPUSH Q8H PRN PRN Reason: Nausea and Vomiting Oxycodone HCl (Oxycodone Hcl Immed Release 5 Mg Tablet) 5 mg PO Q6H PRN PRN Reason: Pain, Moderate (Pain Scale 4-6 Last Admin: 12/10/21 02:43 Dose: 5 mg Documented By: RUBIO Pharmacy Consult (Consult Rx Perform Med Rec) 1 each MISCELLANE ONCE PRN PRN Reason: Consult order Polyethylene Glycol (Polyethylene Glycol 3350 17 Gm Powd.Pack) 17 gm PO DAILY PRN PRN Reason: Constipation Pyridoxine HCl (Pyridoxine Hcl (Vitamin B6) 50 Mg Tablet) 100 mg PO DAILY [facility] Last Admin: 12/10/21 09:01 Dose: 100 mg Documented By: MIGUEL Sodium Chloride (0.9 % Sodium Chloride Flush 3 Ml Syringe) 3 ml IVFLUSH QSHIFT [facility] Last Admin: 12/10/21 09:02 Dose: 3 ml Documented By: MIGUEL Vitamin D (Cholecalciferol (Vitamin D3) 25 Mcg Tablet) 50 mcg PO DAILY [facility] Last Admin: 12/10/21 09:00 Dose: 50 mcg Documented By: MIGUEL Labs CBC & Chem 7: 12/10/21 06:01 12/10/21 06:01 Labs: Laboratory Results - last 24 hr 12/09/21 12/09/21 12/09/21 13:10 17:13 17:13 MCV MCH MCHC RDW Plt Count MPV Absolute Nucleated RBC Nucleated RBC % (auto) Anion Gap Estim Creat Clear Calc Estimated GFR POC Glucose 115 Random Glucose Calcium Folate Peritoneal pH < 6.80 Peritoneal WBC 1341.700 Peritoneal RBC 0.343 Periton Neutrophils 34 Periton Lymphocytes 43 Peritoneal Monocytes 3 Peritoneal Other Cells 20 12/09/21 12/10/21 12/10/21 18:23 06:01 06:01 MCV 88.5 MCH 28.9 MCHC 32.6 RDW 15.0 Plt Count 350 MPV 9.2 L Absolute Nucleated RBC 0.000 Nucleated RBC % (auto) 0.0 Anion Gap 16 Estim Creat Clear Calc 41.2 Estimated GFR 41 POC Glucose 112 Random Glucose 81 Calcium 8.1 L D Folate Peritoneal pH Peritoneal WBC Peritoneal RBC Periton Neutrophils Periton Lymphocytes Peritoneal Monocytes Peritoneal Other Cells 12/10/21 12/10/21 12/10/21 06:01 07:16 11:21 MCV MCH MCHC RDW Plt Count MPV Absolute Nucleated RBC Nucleated RBC % (auto) Anion Gap Estim Creat Clear Calc Estimated GFR POC Glucose 94 108 Random Glucose Calcium Folate 3.4 L Peritoneal pH Peritoneal WBC Peritoneal RBC Periton Neutrophils Periton Lymphocytes Peritoneal Monocytes Peritoneal Other Cells Microbiology Microbiology Results: Microbiology 12/09/21 17:13 Gram Stain - Final Abdominal Fluid Routine Culture - Preliminary Culture in progress. Anaerobic Culture - Preliminary Culture in progress. 12/08/21 15:29 Blood Culture - Preliminary Blood - Venous No growth after 24 hours. 12/08/21 15:01 Blood Culture - Preliminary Blood - Venous No growth after 24 hours. 12/08/21 Unknown Urine Culture - Final Urine clean catch - Urine alonso top Assessment and Plan (1) Abscess, retroperitoneal: Status: Acute (2) Cirrhosis of liver: Status: Acute (3) UTI (urinary tract infection): Status: Acute Plan 76-year-old female with hypertension, hypothyroidism, [id number] type 2 diabetes, GERD, hyperlipidemia, anxiety, history of nephrolithiasis, and fatty liver to be admitted for possible retroperitoneal collection concerning for retroperitoneal abscess given history urologic procedures in the past vs evolving perinephric hematoma with leukocytosis. #Possible Retroperitoneal abscess -Leukocytosis 16.2. Right low back/hip pain without injury with subjective fevers/night sweats -CT abdomen/pelvis showing right psoas fluid collection measuring 10 x 5 x 7 cm, contiguous with the right posterior perinephric fascia.? No associated gas, however given leukocytosis and fever, abscess should be considered.? There also multiple large nonobstructive calculi redemonstrated and right kidney as well as a stable appearing rounded fluid density structure abutting or emanating from the lower right pole of the kidney s/p drainage yesterday- 200 mL of pus drainage came out -UA with 3+ leuks, 2+ blood, no bacteria, no nitrates -Blood cultures and urine culture pending -2g IV ceftriaxone daily and metronidazole 500mg q8h -leucocytois and h/h slightly trending down , no fevers , cultures pending - seen by surgery and Urology status post drainage, continue IV antibiotics, ID evaluation, follow cultures #Noninsulin dependent type 2 diabetes -POC glucose -Diabetic diet now. -Humalog on ss,hold lantus. #HTN- bp soft -Continue lasix -Hold lisinopril #hypothyroidism -continue levothyroxone #Gerd -continue ppo #hld -continue statin # possible Cirrhosis of the liver -CT abd/pelvis with morphologically cirrhotic liver -AST 61/ALT 61 -No ETOH hx -Needs outpt follow up normocytic anemia: h/h somewhat trend down 9.3/28.5 ? Denies any blood in the stool or melena. ? Monitor CBC, anemia workup added-seems mixed type anemia -acod/iron def/folate. added fobt mild melany: due to dehydration /lasix use: hold lasix ?obesity: Encouraged to lose weight. DVT prophylaxis- mech devices. ongoing inpatient need:possible retroperitoneal abscess requiring IV antibiotics, close monitoring clinically,cultures followup? and further evaluation with expert cosultation regarding retroperitoneal collection and possible drainage. Quality Stroke Does the patient have a stroke diagnosis?: No VTE Prior VTE?: No VTE Risk Level:: Medical - moderate - high VTE Device Contraindication: Treatment Not Indicated VTE Drug Contraindication: N/A - Med Ordered
[2021-12-10] MEDS: iohexoL 350 MG/ML 100 ML INFUS..BTL IV (12:41)
[2021-12-10] MEDS: Folic Acid 1 MG TABLET 2 MG PO (13:05)
[2021-12-10 14:15] VITALS: BMI 32.5
[2021-12-10 15:15] VITALS: BP 112/58; PULSE 87; RESP 18; TEMP 36.9; O2SAT 98
[2021-12-10] MEDS: cefTRIAXone sodium 2 GM in 0.9 % Sodium Chloride 50 ML IV (15:29)
[2021-12-10 15:57] LABS: Glucose, Whole Blood 140 mg/dL (60-115)
[2021-12-10] MEDS: Atorvastatin Calcium 10 MG TABLET PO (18:24)
[2021-12-10] MEDS: HYDROmorphone HCl 0.5 MG/0.5 ML SYRINGE 0.25 MG IVPUSH (18:24)
[2021-12-10 19:05] VITALS: BP 101/51; PULSE 88; RESP 15; TEMP 36.4; O2SAT 99
[2021-12-10 20:15] LABS: Glucose, Whole Blood 148 mg/dL (60-115)
[2021-12-10 23:17] VITALS: BP 141/63; PULSE 92; RESP 18; TEMP 36.8; O2SAT 95
[2021-12-11] MEDS: Albumin Human 25 % 100 ML IV (01:27)
[2021-12-11] MEDS: oxyCODONE HCl Immed Release 5 MG TABLET PO ×4 (01:34→22:12)
[2021-12-11] MEDS: metroNIDAZOLE/NS 500 MG/100 ML PIGGYBACK 100 MG IV ×3 (02:27→18:29)
[2021-12-11 03:00] VITALS: BP 109/54; PULSE 84; RESP 18; TEMP 36.7; O2SAT 96
[2021-12-11] MEDS: Levothyroxine Sodium 112 MCG TABLET PO (05:40)
[2021-12-11] MEDS: Omeprazole 20 MG CAPSULE.DR PO (05:40)
[2021-12-11 07:00] VITALS: BP 115/56; PULSE 82; RESP 17; TEMP 36.3; O2SAT 98
[2021-12-11 07:15] LABS: Hematocrit 27.8 % (37.0-47.0); Hemoglobin 8.9 g/dl (12.0-16.0); Mean Corpuscular Hemoglobin 28.6 pg (27.0-33.0); Mean Corpuscular Volume 89.4 fL (80.0-98.0); Platelet Count 325 X10*3/uL (160-400); Red Blood Count 3.11 X10*6/uL (4.20-5.50); Red Cell Distribution Width 15.3 % (11.0-16.0); White Blood Count 11.8 X10*3/uL (4.8-10.8)
[2021-12-11 07:30] LABS: Glucose, Whole Blood 114 mg/dL (60-115)
[2021-12-11 07:35] LABS: Anion Gap 18 (12-20); Blood Urea Nitrogen 15 mg/dL (9-16); Calcium 8.5 mg/dL (8.4-10.2); Carbon Dioxide 20 mmol/L (22-29); Chloride 102 mmol/L (96-108); Creatinine Clr Calc Pharmacy 43.3; Estimated Glomerular Filt Rate 43; Glucose Random 107 mg/dL (60-115); Potassium 3.3 mmol/L (3.3-5.1); Sodium 137 mmol/L (135-145)
[2021-12-11] MEDS: 0.9 % Sodium Chloride Flush 3 ML SYRINGE IVFLUSH ×3 (07:46→20:05)
[2021-12-11] MEDS: Cholecalciferol (Vitamin D3) 25 MCG TABLET 50 MCG PO (07:54)
[2021-12-11] MEDS: Pyridoxine HCl (Vitamin B6) 50 MG TABLET 100 MG PO (07:54)
[2021-12-11] MEDS: Folic Acid 1 MG TABLET 2 MG PO (07:54)
--- NOTE | 2021-12-11 09:51 | PM.UROPN ---
Subjective Subjective Date of Service: 12/11/21 Patient reports: no new complaints and feels better Interval history: Discussed findings with Xi CT-guided drain placed Material drained Microbiology pending CT urogram performed No evidence of communication or extravasation of contrast into psoas abscess Most likely abscess represents chronic seroma that may have become infected Discharge pending finalized microbiology results Physical Exam Vital Signs: Vital Signs: Last Vital Signs Temp 97.3 F 12/11/21 07:00 Pulse 82 12/11/21 07:00 Resp 17 12/11/21 07:00 BP 115/56 L 12/11/21 07:00 Pulse Ox 98 12/11/21 07:00 O2 Del Method 12/11/21 07:00 BMI result Body Mass Index 32.5 Const: General: cooperative, healthy appearing, comfortable and no acute distress Orientation/consciousness: patient oriented x3 HEENT: Face and sinus: Yes normal facial exam Mouth: moist mucous membranes Neck: Neck: Yes normal visual inspection, Yes full ROM and Yes trachea midline Chest: Chest palpation & inspection: normal inspection of the chest Resp: Effort & Inspection: normal respiratory effort, able to speak in complete sentences and no respiratory distress GI: Inspection: Yes normal to inspection Back/Spine/Pelvis: Cervical Spine: normal cervical lordosis Thoracic/Lumbar Spine: thoracic and lumbar spine normal to inspection Skin: General skin exam: no rashes or lesions noted Neuro: General: patient oriented x3, tone normal and moves all extremities Extrem: General: Yes normal to inspection and Yes capillary refill normal Urology Results Labs CBC & Chem 7: 12/11/21 06:08 12/11/21 06:08 Labs: Laboratory Results - last 24 hr 12/10/21 12/10/21 12/10/21 06:01 11:21 15:19 WBC RBC Hgb Hct MCV MCH MCHC RDW Plt Count MPV Absolute Nucleated RBC Nucleated RBC % (auto) Sodium Potassium Chloride Carbon Dioxide Anion Gap BUN Creatinine Estim Creat Clear Calc Estimated GFR POC Glucose 108 140 H Random Glucose Calcium Folate 3.4 L 12/10/21 12/11/21 12/11/21 19:09 06:08 06:08 WBC 11.8 H RBC 3.11 L Hgb 8.9 L Hct 27.8 L MCV 89.4 MCH 28.6 MCHC 32.0 RDW 15.3 Plt Count 325 MPV 9.0 L Absolute Nucleated RBC 0.000 Nucleated RBC % (auto) 0.0 Sodium 137 Potassium 3.3 Chloride 102 Carbon Dioxide 20 L Anion Gap 18 BUN 15 Creatinine 1.21 Estim Creat Clear Calc 43.3 Estimated GFR 43 POC Glucose 148 H Random Glucose 107 Calcium 8.5 Folate 12/11/21 07:21 WBC RBC Hgb Hct MCV MCH MCHC RDW Plt Count MPV Absolute Nucleated RBC Nucleated RBC % (auto) Sodium Potassium Chloride Carbon Dioxide Anion Gap BUN Creatinine Estim Creat Clear Calc Estimated GFR POC Glucose 114 Random Glucose Calcium Folate Progress Note: A&P Assessment and plan (1) Abscess, retroperitoneal: Status: Acute Plan Continue with drainage and treatment with antibiotics Drain should be removed after antibiotic course complete Time Spent With Patient Time: Total time spent is greater than 50% in coordination of care (as documented) at patient's floor/unit and/or counseling patient: Progress Note: Quality Stroke Does the patient have a stroke diagnosis?: No
[2021-12-11 11:00] VITALS: BP 116/57; PULSE 74; RESP 16; TEMP 36.9; O2SAT 97
[2021-12-11 11:10] LABS: Glucose, Whole Blood 144 mg/dL (60-115)
--- NOTE | 2021-12-11 13:42 | P.PNIM_ITS ---
Subjective Subjective Date of Service: 12/11/21 Interval History: possible? Retroperitoneal abscess? Review of Systems back pain -lwer back seems somwhat improving. ? Denies any abdominal pain or nausea vomiting or any blood in the stool or melena. Physical Exam Vital Signs: Vital Signs: Last Vital Signs Temp 98.4 F 12/11/21 11:00 Pulse 74 12/11/21 11:00 Resp 16 12/11/21 11:00 BP 116/57 L 12/11/21 11:00 Pulse Ox 97 12/11/21 11:00 O2 Del Method 12/11/21 11:00 BMI result Body Mass Index 32.5 Appearance: Alert.? Oriented X3.? cvs: rrr, [id number] . res: clear to auscultation ,no rhonchii or wheezing abd: no rebound or guarding ,back pain , right sided lateral back pain,upper right buttock ,has drainge - pikish/serosignous fluid, bs present. ? No erythema or any fluctuation ext pulses present , no cyanosis . neuro: axo3 , nonfocal. Objective Data Active Medications Acetaminophen (Acetaminophen 325 Mg Tablet) 650 mg PO Q6H PRN PRN Reason: Pain, Mild, fever Last Admin: 12/10/21 03:46 Dose: 650 mg Documented By: RUBIO Atorvastatin Calcium (Atorvastatin Calcium 10 Mg Tablet) 10 mg PO DAILY@1700 [facility] Last Admin: 12/10/21 18:24 Dose: 10 mg Documented By: MIGUEL Dextrose (Dextrose 50 % 25 Gm/50 Ml Syringe) 25 gm IVPUSH Q15M PRN; Protocol PRN Reason: per Hypoglycemia Standing Ord. Docusate Sodium (Docusate Sodium 100 Mg Capsule) 100 mg PO BEDTIME [facility] Last Admin: 12/10/21 20:52 Dose: Not Given Documented By: ODRISM Non-Admin Reason: loose stools Folic Acid (Folic Acid 1 Mg Tablet) 2 mg PO DAILY [facility] Last Admin: 12/11/21 07:54 Dose: 2 mg Documented By: SHANTA Furosemide (Furosemide 40 Mg Tablet) 40 mg PO BID [facility]; Protocol Last Admin: 12/09/21 08:05 Dose: 40 mg Documented By: AMILCAR Glucose (Glucose Gel 15 Gm Gel..Gram.) 15 gm PO Q15M PRN; Protocol PRN Reason: per Hypoglycemia Standing Ord. Hydromorphone HCl (Hydromorphone Hcl 0.5 Mg/0.5 Ml Syringe) 0.25 mg IVPUSH Q4H PRN; Protocol PRN Reason: Pain, Moderate (Pain Scale 4-6 Last Admin: 12/10/21 18:24 Dose: 0.25 mg Documented By: MIGUEL Ceftriaxone Sodium 2 gm/ (Sodium Chloride) 50 mls @ 100 mls/hr IV Q24H [facility] Last Infusion: 12/10/21 16:28 Dose: 0 mls/hr Documented By: MIGUEL Metronidazole (Flagyl) 500 mg in 100 mls @ 100 mls/hr IV Q8H [facility] Last Infusion: 12/11/21 12:05 Dose: 0 mls/hr Documented By: SHANTA Insulin Human Lispro (Insulin Lispro 100 Unit/Ml 3 Ml Vial) 0 unit SUBCUT QIDACHS [facility]; Protocol Last Admin: 12/11/21 11:20 Dose: Not Given Documented By: SHANTA Non-Admin Reason: No Insulin Coverage Levothyroxine Sodium (Levothyroxine Sodium 112 Mcg Tablet) 112 mcg PO SHIRA Y@0600 [facility] Last Admin: 12/11/21 05:40 Dose: 112 mcg Documented By: ALLA Lidocaine (Lidocaine 4 % Patch Adh..Patch) 1 patch TRANSDERMA DAILY [facility]; Protocol Last Admin: 12/11/21 07:56 Dose: Not Given Documented By: SHANTA Non-Admin Reason: Patient Refused Omeprazole (Omeprazole 20 Mg Capsule.) 20 mg PO DAILY@0630 [facility] Last Admin: 12/11/21 05:40 Dose: 20 mg Documented By: ALLA Ondansetron HCl (Ondansetron Hcl 4 Mg/2 Ml Vial) 4 mg IVPUSH Q8H PRN PRN Reason: Nausea and Vomiting Oxycodone HCl (Oxycodone Hcl Immed Release 5 Mg Tablet) 5 mg PO Q6H PRN PRN Reason: Pain, Moderate (Pain Scale 4-6 Last Admin: 12/11/21 07:54 Dose: 5 mg Documented By: SHANTA Pharmacy Consult (Consult Rx Perform Med Rec) 1 each MISCELLANE ONCE PRN PRN Reason: Consult order Polyethylene Glycol (Polyethylene Glycol 3350 17 Gm Powd.Pack) 17 gm PO DAILY PRN PRN Reason: Constipation Pyridoxine HCl (Pyridoxine Hcl (Vitamin B6) 50 Mg Tablet) 100 mg PO DAILY [facility] Last Admin: 12/11/21 07:54 Dose: 100 mg Documented By: SHANTA Sodium Chloride (0.9 % Sodium Chloride Flush 3 Ml Syringe) 3 ml IVFLUSH QSHIFT [facility] Last Admin: 12/11/21 07:46 Dose: 3 ml Documented By: SHANTA Vitamin D (Cholecalciferol (Vitamin D3) 25 Mcg Tablet) 50 mcg PO DAILY [facility] Last Admin: 12/11/21 07:54 Dose: 50 mcg Documented By: SHANTA Labs CBC & Chem 7: 12/11/21 06:08 12/11/21 06:08 Labs: Laboratory Results - last 24 hr 12/10/21 12/10/21 12/11/21 15:19 19:09 06:08 MCV MCH MCHC RDW Plt Count MPV Absolute Nucleated RBC Nucleated RBC % (auto) Anion Gap 18 Estim Creat Clear Calc 43.3 Estimated GFR 43 POC Glucose 140 H 148 H Random Glucose 107 Calcium 8.5 12/11/21 12/11/21 12/11/21 06:08 07:21 11:05 MCV 89.4 MCH 28.6 MCHC 32.0 RDW 15.3 Plt Count 325 MPV 9.0 L Absolute Nucleated RBC 0.000 Nucleated RBC % (auto) 0.0 Anion Gap Estim Creat Clear Calc Estimated GFR POC Glucose 114 144 H Random Glucose Calcium Microbiology Microbiology Results: Microbiology 12/09/21 17:13 Gram Stain - Final Abdominal Fluid Routine Culture - Preliminary Proteus species Anaerobic Culture - Preliminary Culture in progress. 12/08/21 15:29 Blood Culture - Preliminary Blood - Venous No growth after 48 hours. 12/08/21 15:01 Blood Culture - Preliminary Blood - Venous No growth after 48 hours. Assessment and Plan (1) Retroperitoneal fluid collection: Status: Acute (2) Abscess, retroperitoneal: Status: Acute (3) Leukocytosis: Status: Acute Plan 76-year-old female with hypertension, hypothyroidism, [id number] type 2 diabetes, GERD, hyperlipidemia, anxiety, history of nephrolithiasis, and fatty liver to be admitted for possible retroperitoneal collection concerning for retroperitoneal abscess given history urologic procedures in the past vs evolving perinephric hematoma with leukocytosis. #Possible Retroperitoneal abscess -Leukocytosis 16.2. Right low back/hip pain without injury with subjective fevers/night sweats -CT abdomen/pelvis showing right psoas fluid collection measuring 10 x 5 x 7 cm, contiguous with the right posterior perinephric fascia.? No associated gas, however given leukocytosis and fever, abscess should be considered.? There also multiple large nonobstructive calculi redemonstrated and right kidney as well as a stable appearing rounded fluid density structure abutting or emanating from the lower right pole of the kidney s/p drainage yesterday- 200 mL of pus? drainage came out -UA with 3+ leuks, 2+ blood, no bacteria, no nitrates -Blood cultures neg@48hr and urine culture mixed jaret wound culture - Proteus species, cytology also pending -2g IV ceftriaxone daily and metronidazole 500mg q8h -leucocytois and h/h slightly trending down , no fevers , cultures pending - seen by surgery and Urology status post drainage, continue IV antibiotics, ID evaluation, follow cultures #Noninsulin dependent type 2 diabetes -POC glucose -Diabetic diet now. -Humalog on ss,hold lantus. #HTN- bp soft -Continue lasix -Hold lisinopril #hypothyroidism -continue levothyroxone #Gerd -continue ppo #hld -continue statin # possible Cirrhosis of the liver -CT abd/pelvis with morphologically cirrhotic liver -AST 61/ALT 61 -No ETOH hx -Needs outpt follow up normocytic anemia: h/h somewhat trend down 9.3/28.5 ? Denies any blood in the stool or melena. ? Monitor CBC, anemia workup added-seems mixed type anemia -acod/iron def/folate. added fobt mild melany: due to dehydration /lasix use: hold lasix ?obesity: Encouraged to lose weight. DVT prophylaxis- mech devices. ongoing inpatient need:possible retroperitoneal abscess requiring IV antibiotics, close monitoring clinically,cultures followup?,moniter drainage Quality Stroke Does the patient have a stroke diagnosis?: No VTE Prior VTE?: No VTE Risk Level:: Medical - moderate - high VTE Device Contraindication: Treatment Not Indicated VTE Drug Contraindication: N/A - Med Ordered
[2021-12-11] MEDS: Potassium Chloride Packet 20 MEQ PACKET 40 MEQ PO (13:53)
--- NOTE | 2021-12-11 14:57 | MHC.CLN ---
F/U RECENT DX DM. PROVIDED PATIENT WITH EDUCATION ON BASIC HEALTHFUL MEAL PLANNING FOR DIABETES. PROVIDED BOOKLET AND DISCUSSED. HAS SWITCHED TO SUGAR FREE PRODUCTS. APPEARS TO CONTROL PORTION SIZES. HAS HAD SIGNIFICANT, INTENTIONAL WEIGHT LOSS. REVIEW OF A1C SHOWS SIGNIFICANT IMPROVEMENT X 1 YEAR. NO REPORTED CONCERNS WITH CURRENT APPETITE. FOLLOW FOR INTAKE AND LABS.
[2021-12-11 15:38] VITALS: BP 126/61; PULSE 81; RESP 18; TEMP 36.7; O2SAT 98
[2021-12-11] MEDS: cefTRIAXone sodium 2 GM in 0.9 % Sodium Chloride 50 ML IV (15:56)
[2021-12-11 16:01] LABS: Glucose, Whole Blood 131 mg/dL (60-115)
--- NOTE | 2021-12-11 16:17 | MHC.CM.PN ---
PT NOT YET MEDICALLY CLEARED DCP REMAINS HOME WITH NO SERVICES PT TO ARRANGE TRANSPORT
[2021-12-11] MEDS: Atorvastatin Calcium 10 MG TABLET PO (17:13)
[2021-12-11 19:21] VITALS: BP 129/58; PULSE 82; RESP 18; TEMP 36.1; O2SAT 97
[2021-12-11 20:20] LABS: Glucose, Whole Blood 162 mg/dL (60-115)
[2021-12-11 23:00] VITALS: BP 116/58; RESP 16; TEMP 36.5; O2SAT 98
[2021-12-11] MEDS: Acetaminophen 325 MG TABLET 650 MG PO (23:47)
[2021-12-12] VITALS (7 sets, daily range): BP systolic 112–148; BP diastolic 56–67; PULSE 69–84; RESP 16–19; TEMP 36.1–37.1; O2SAT 97–100
[2021-12-12] MEDS: metroNIDAZOLE/NS 500 MG/100 ML PIGGYBACK 100 MG IV ×3 (04:19→18:15)
[2021-12-12] MEDS: Omeprazole 20 MG CAPSULE.DR PO (05:19)
[2021-12-12] MEDS: Levothyroxine Sodium 112 MCG TABLET PO (05:19)
[2021-12-12 07:11] LABS: Glucose, Whole Blood 108 mg/dL (60-115)
[2021-12-12] MEDS: Folic Acid 1 MG TABLET 2 MG PO (08:44)
[2021-12-12] MEDS: Cholecalciferol (Vitamin D3) 25 MCG TABLET 50 MCG PO (08:44)
[2021-12-12] MEDS: Pyridoxine HCl (Vitamin B6) 50 MG TABLET 100 MG PO (08:45)
[2021-12-12] MEDS: 0.9 % Sodium Chloride Flush 3 ML SYRINGE IVFLUSH ×3 (08:46→20:15)
--- NOTE | 2021-12-12 10:03 | P.PNIM_ITS ---
Subjective Subjective Date of Service: 12/12/21 Interval History: possible? Retroperitoneal abscess? Review of Systems back pain -lwer back seems somwhat improving. ? Denies any abdominal pain or nausea vomiting or any blood in the stool or melena. Physical Exam Vital Signs: Vital Signs: Last Vital Signs Temp 98 F 12/12/21 06:53 Pulse 69 12/12/21 06:53 Resp 19 12/12/21 06:53 BP 117/58 L 12/12/21 06:53 Pulse Ox 97 12/12/21 06:53 O2 Del Method 12/12/21 06:53 BMI result Body Mass Index 32.5 Appearance: Alert.? Oriented X3.? cvs: rrr, [id number] . res: clear to auscultation ,no rhonchii or wheezing abd: no rebound or guarding ,back pain , right sided lateral back pain,upper right buttock ,has drainge - pikish/serosignous fluid, bs present. ? No erythema or any fluctuation ext pulses present , no cyanosis . neuro: axo3 , nonfocal Objective Data Active Medications Acetaminophen (Acetaminophen 325 Mg Tablet) 650 mg PO Q6H PRN PRN Reason: Pain, Mild, fever Last Admin: 12/11/21 23:47 Dose: 650 mg Documented By: RUFUS Atorvastatin Calcium (Atorvastatin Calcium 10 Mg Tablet) 10 mg PO DAILY@1700 [facility] Last Admin: 12/11/21 17:13 Dose: 10 mg Documented By: SHANTA Dextrose (Dextrose 50 % 25 Gm/50 Ml Syringe) 25 gm IVPUSH Q15M PRN; Protocol PRN Reason: per Hypoglycemia Standing Ord. Docusate Sodium (Docusate Sodium 100 Mg Capsule) 100 mg PO BEDTIME [facility] Last Admin: 12/11/21 20:08 Dose: Not Given Documented By: JENN Non-Admin Reason: Patient Refused Folic Acid (Folic Acid 1 Mg Tablet) 2 mg PO DAILY [facility] Last Admin: 12/12/21 08:44 Dose: 2 mg Documented By: RENETTA Furosemide (Furosemide 40 Mg Tablet) 40 mg PO BID [facility]; Protocol Last Admin: 12/09/21 08:05 Dose: 40 mg Documented By: AMILCAR Glucose (Glucose Gel 15 Gm Gel..Gram.) 15 gm PO Q15M PRN; Protocol PRN Reason: per Hypoglycemia Standing Ord. Hydromorphone HCl (Hydromorphone Hcl 0.5 Mg/0.5 Ml Syringe) 0.25 mg IVPUSH Q4H PRN; Protocol PRN Reason: Pain, Moderate (Pain Scale 4-6 Last Admin: 12/10/21 18:24 Dose: 0.25 mg Documented By: MIGUEL Ceftriaxone Sodium 2 gm/ (Sodium Chloride) 50 mls @ 100 mls/hr IV Q24H [facility] Last Infusion: 12/11/21 17:14 Dose: 0 mls/hr Documented By: SHANTA Metronidazole (Flagyl) 500 mg in 100 mls @ 100 mls/hr IV Q8H [facility] Last Infusion: 12/12/21 05:23 Dose: 0 mls/hr Documented By: RUFUS Insulin Human Lispro (Insulin Lispro 100 Unit/Ml 3 Ml Vial) 0 unit SUBCUT QIDACHS [facility]; Protocol Last Admin: 12/12/21 08:39 Dose: Not Given Documented By: RENETTA Non-Admin Reason: No Insulin Coverage Levothyroxine Sodium (Levothyroxine Sodium 112 Mcg Tablet) 112 mcg PO DAILY@0600 [facility] Last Admin: 12/12/21 05:19 Dose: 112 mcg Documented By: RUFUS Lidocaine (Lidocaine 4 % Patch Adh..Patch) 1 patch TRANSDERMA DAILY [facility]; Protocol Last Admin: 12/12/21 08:45 Dose: Not Given Documented By: RENETTA Non-Admin Reason: Patient Refused Omeprazole (Omeprazole 20 Mg [place].) 20 mg PO DAILY@0630 [facility] Last Admin: 12/12/21 05:19 Dose: 20 mg Documented By: RUFUS Ondansetron HCl (Ondansetron Hcl 4 Mg/2 Ml Vial) 4 mg IVPUSH Q8H PRN PRN Reason: Nausea and Vomiting Oxycodone HCl (Oxycodone Hcl Immed Release 5 Mg Tablet) 5 mg PO Q6H PRN PRN Reason: Pain, Moderate (Pain Scale 4-6 Last Admin: 12/11/21 22:12 Dose: 5 mg Documented By: JENN Pharmacy Consult (Consult Rx Perform Med Rec) 1 each MISCELLANE ONCE PRN PRN Reason: Consult order Polyethylene Glycol (Polyethylene Glycol 3350 17 Gm Powd.Pack) 17 gm PO DAILY PRN PRN Reason: Constipation Pyridoxine HCl (Pyridoxine Hcl (Vitamin B6) 50 Mg Tablet) 100 mg PO DAILY [facility] Last Admin: 12/12/21 08:45 Dose: 100 mg Documented By: RENETTA Sodium Chloride (0.9 % Sodium Chloride Flush 3 Ml Syringe) 3 ml IVFLUSH QSHIFT [facility] Last Admin: 12/12/21 08:46 Dose: 3 ml Documented By: RENETTA Vitamin D (Cholecalciferol (Vitamin D3) 25 Mcg Tablet) 50 mcg PO DAILY [facility] Last Admin: 12/12/21 08:44 Dose: 50 mcg Documented By: RENETTA Labs CBC & Chem 7: 12/11/21 06:08 12/11/21 06:08 Labs: Laboratory Results - last 24 hr 12/11/21 12/11/21 12/11/21 11:05 15:43 19:24 POC Glucose 144 H 131 H 162 H 12/12/21 06:55 POC Glucose 108 Microbiology Microbiology Results: Microbiology 12/09/21 17:13 Gram Stain - Final Abdominal Fluid Routine Culture - Final Proteus mirabilis Anaerobic Culture - Preliminary Assessment and Plan (1) Retroperitoneal fluid collection: Status: Acute (2) Abscess, retroperitoneal: Status: Acute Plan 76-year-old female with hypertension, hypothyroidism, [id number] type 2 diabetes, GERD, hyperlipidemia, anxiety, history of nephrolithiasis, and fatty liver to be admitted for possible retroperitoneal collection concerning for retroperitoneal abscess given history urologic procedures in the past vs evolving perinephric hematoma with leukocytosis. #Possible Retroperitoneal abscess -Leukocytosis 16.2. Right low back/hip pain without injury with subjective fevers/night sweats -CT abdomen/pelvis showing right psoas fluid collection measuring 10 x 5 x 7 cm, contiguous with the right posterior perinephric fascia.? No associated gas, however given leukocytosis and fever, abscess should be considered.? There also multiple large nonobstructive calculi redemonstrated and right kidney as well as a stable appearing rounded fluid density structure abutting or emanating from the lower right pole of the kidney s/p drainage yesterday- 200 mL of pus? drainage came out has deyvi myers-still draining serosingunous fluid -UA with 3+ leuks, 2+ blood, no bacteria, no nitrates -Blood cultures neg@48hr and urine culture mixed jaret wound culture - Proteus species, cytology also pending -2g IV ceftriaxone daily and metronidazole 500mg q8h -leucocytois and h/h slightly trending down , no fevers , cultures pending - seen by surgery and Urology status post drainage, continue IV antibiotics, ID evaluation, follow cultures #Noninsulin dependent type 2 diabetes -POC glucose -Diabetic diet now. -Humalog on ss,hold lantus. #HTN- bp soft -Continue lasix -Hold lisinopril #hypothyroidism -continue levothyroxone #Gerd -continue ppo #hld -continue statin # possible Cirrhosis of the liver -CT abd/pelvis with morphologically cirrhotic liver -AST 61/ALT 61 -No ETOH hx -Needs outpt follow up normocytic anemia: h/h somewhat trend down 9.3/28.5 ? Denies any blood in the stool or melena. ? Monitor CBC, anemia workup added-seems mixed type anemia -acod/iron def/folate. added fobt mild melany: due to dehydration /lasix use: hold lasix ?obesity: Encouraged to lose weight. DVT prophylaxis- mech devices. ongoing inpatient need:possible retroperitoneal abscess requiring IV antibiotics, close monitoring clinically,cultures followup?,moniter drainage Quality Stroke Does the patient have a stroke diagnosis?: No VTE Prior VTE?: No VTE Risk Level:: Medical - moderate - high VTE Device Contraindication: Treatment Not Indicated VTE Drug Contraindication: N/A - Med Ordered
[2021-12-12 11:16] LABS: Glucose, Whole Blood 162 mg/dL (60-115)
[2021-12-12] MEDS: cefTRIAXone sodium 2 GM in 0.9 % Sodium Chloride 50 ML IV (15:44)
[2021-12-12 16:10] LABS: Glucose, Whole Blood 146 mg/dL (60-115)
[2021-12-12] MEDS: Atorvastatin Calcium 10 MG TABLET PO (16:20)
[2021-12-12 19:28] LABS: Glucose, Whole Blood 142 mg/dL (60-115)
[2021-12-12] MEDS: oxyCODONE HCl Immed Release 5 MG TABLET PO (23:26)
[2021-12-12] MEDS: Acetaminophen 325 MG TABLET 650 MG PO (23:26)
[2021-12-13 03:10] VITALS: BP 130/62; PULSE 62; RESP 16; TEMP 36.6; O2SAT 98
[2021-12-13] MEDS: metroNIDAZOLE/NS 500 MG/100 ML PIGGYBACK 100 MG IV ×3 (03:14→19:11)
[2021-12-13] MEDS: Omeprazole 20 MG CAPSULE.DR PO (06:20)
[2021-12-13] MEDS: Levothyroxine Sodium 112 MCG TABLET PO (06:20)
[2021-12-13 06:52] VITALS: BP 135/65; PULSE 65; RESP 18; TEMP 36.6; O2SAT 100
--- NOTE | 2021-12-13 07:09 | MHC.PIE ---
p; [facility] monitor reports pt p has been prolonged since 2299 i; notified e; will cont to monitor
[2021-12-13 07:20] LABS: Glucose, Whole Blood 120 mg/dL (60-115)
[2021-12-13 08:26] LABS: Hematocrit 30.5 % (37.0-47.0); Hemoglobin 9.7 g/dl (12.0-16.0)
[2021-12-13 08:46] LABS: Anion Gap 17 (12-20); Blood Urea Nitrogen 13 mg/dL (9-16); Carbon Dioxide 23 mmol/L (22-29); Chloride 106 mmol/L (96-108); Creatinine Clr Calc Pharmacy 50.4; Estimated Glomerular Filt Rate 52; Glucose Random 134 mg/dL (60-115); Potassium 4.1 mmol/L (3.3-5.1); Sodium 142 mmol/L (135-145)
--- NOTE | 2021-12-13 09:35 | HO.PM.IMPN ---
Subjective Subjective Date of Service: 12/13/21 Interval History: ?Retroperitoneal abscess Review of Systems back pain - improving. ? Denies any abdominal pain or nausea vomiting or any blood in the stool or melena. Physical Exam Vital Signs: Vital Signs: Last Vital Signs Temp 98 F 12/13/21 06:52 Pulse 65 12/13/21 06:52 Resp 18 12/13/21 06:52 BP 135/65 12/13/21 06:52 Pulse Ox 100 12/13/21 06:52 O2 Del Method 12/13/21 06:52 BMI result Body Mass Index 32.5 Appearance: Alert.? Oriented X3.? cvs: rrr, [id number] . res: clear to auscultation ,no rhonchii or wheezing abd: no rebound or guarding ,back pain , right sided lateral back pain,upper right buttock ,has drainge - pikish/serosignous fluid, bs present. ? No erythema or any fluctuation ext pulses present , no cyanosis . neuro: axo3 , nonfocal Objective Data Active Medications Acetaminophen (Acetaminophen 325 Mg Tablet) 650 mg PO Q6H PRN PRN Reason: Pain, Mild, fever Last Admin: 12/12/21 23:26 Dose: 650 mg Documented By: RUFUS Atorvastatin Calcium (Atorvastatin Calcium 10 Mg Tablet) 10 mg PO DAILY@1700 [facility] Last Admin: 12/12/21 16:20 Dose: 10 mg Documented By: SHANTA Dextrose (Dextrose 50 % 25 Gm/50 Ml Syringe) 25 gm IVPUSH Q15M PRN; Protocol PRN Reason: per Hypoglycemia Standing Ord. Docusate Sodium (Docusate Sodium 100 Mg Capsule) 100 mg PO BEDTIME [facility] Last Admin: 12/12/21 20:16 Dose: Not Given Documented By: RUFUS Non-Admin Reason: Patient Refused Folic Acid (Folic Acid 1 Mg Tablet) 2 mg PO DAILY [facility] Last Admin: 12/12/21 08:44 Dose: 2 mg Documented By: RENETTA Furosemide (Furosemide 40 Mg Tablet) 40 mg PO BID [facility]; Protocol Last Admin: 12/09/21 08:05 Dose: 40 mg Documented By: AMILCAR Glucose (Glucose Gel 15 Gm Gel..Gram.) 15 gm PO Q15M PRN; Protocol PRN Reason: per Hypoglycemia Standing Ord. Hydromorphone HCl (Hydromorphone Hcl 0.5 Mg/0.5 Ml Syringe) 0.25 mg IVPUSH Q4H PRN; Protocol PRN Reason: Pain, Moderate (Pain Scale 4-6 Last Admin: 12/10/21 18:24 Dose: 0.25 mg Documented By: MIGUEL Ceftriaxone Sodium 2 gm/ (Sodium Chloride) 50 mls @ 100 mls/hr IV Q24H [facility] Last Infusion: 12/12/21 16:22 Dose: 0 mls/hr Documented By: SHANTA Metronidazole (Flagyl) 500 mg in 100 mls @ 100 mls/hr IV Q8H [facility] Last Infusion: 12/13/21 04:16 Dose: 0 mls/hr Documented By: RUFUS Insulin Human Lispro (Insulin Lispro 100 Unit/Ml 3 Ml Vial) 0 unit SUBCUT QIDACHS [facility]; Protocol Last Admin: 12/13/21 07:56 Dose: Not Given Documented By: BETH Non-Admin Reason: No Insulin Coverage Levothyroxine Sodium (Levothyroxine Sodium 112 Mcg Tablet) 112 mcg PO DAILY@0600 [facility] Last Admin: 12/13/21 06:20 Dose: 112 mcg Documented By: RUFUS Lidocaine (Lidocaine 4 % Patch Adh..Patch) 1 patch TRANSDERMA DAILY [facility]; Protocol Last Admin: 12/12/21 08:45 Dose: Not Given Documented By: RENETTA Non-Admin Reason: Patient Refused Omeprazole (Omeprazole 20 Mg Capsule.) 20 mg PO DAILY@0630 [facility] Last Admin: 12/13/21 06:20 Dose: 20 mg Documented By: RUFUS Ondansetron HCl (Ondansetron Hcl 4 Mg/2 Ml Vial) 4 mg IVPUSH Q8H PRN PRN Reason: Nausea and Vomiting Oxycodone HCl (Oxycodone Hcl Immed Release 5 Mg Tablet) 5 mg PO Q6H PRN PRN Reason: Pain, Moderate (Pain Scale 4-6 Last Admin: 12/12/21 23:26 Dose: 5 mg Documented By: RUFUS Pharmacy Consult (Consult Rx Perform Med Rec) 1 each MISCELLANE ONCE PRN PRN Reason: Consult order Polyethylene Glycol (Polyethylene Glycol 3350 17 Gm Powd.Pack) 17 gm PO DAILY PRN PRN Reason: Constipation Pyridoxine HCl (Pyridoxine Hcl (Vitamin B6) 50 Mg Tablet) 100 mg PO DAILY [facility] Last Admin: 12/12/21 08:45 Dose: 100 mg Documented By: RENETTA Sodium Chloride (0.9 % Sodium Chloride Flush 3 Ml Syringe) 3 ml IVFLUSH QSHIFT [facility] Last Admin: 12/12/21 20:15 Dose: 3 ml Documented By: RUFUS Vitamin D (Cholecalciferol (Vitamin D3) 25 Mcg Tablet) 50 mcg PO DAILY [facility] Last Admin: 12/12/21 08:44 Dose: 50 mcg Documented By: RENETTA Labs CBC & Chem 7: 12/13/21 07:36 12/13/21 07:36 Labs: Laboratory Results - last 24 hr 12/12/21 12/12/21 12/12/21 11:12 16:02 19:02 Anion Gap Estim Creat Clear Calc Estimated GFR POC Glucose 162 H 146 H 142 H Random Glucose Calcium 12/13/21 12/13/21 06:52 07:36 Anion Gap 17 Estim Creat Clear Calc 50.4 Estimated GFR 52 POC Glucose 120 H Random Glucose 134 H Calcium 9.0 Microbiology Microbiology Results: Microbiology 12/09/21 17:13 Gram Stain - Final Abdominal Fluid Routine Culture - Final Proteus mirabilis Anaerobic Culture - Preliminary Assessment and Plan (1) Retroperitoneal fluid collection: Status: Acute (2) Abscess, retroperitoneal: Status: Acute Plan 76-year-old female with hypertension, hypothyroidism, [id number] type 2 diabetes, GERD, hyperlipidemia, anxiety, history of nephrolithiasis, and fatty liver to be admitted for possible retroperitoneal collection concerning for retroperitoneal abscess given history urologic procedures in the past vs evolving perinephric hematoma with leukocytosis. #Possible Retroperitoneal abscess -Leukocytosis 16.2. Right low back/hip pain without injury with subjective fevers/night sweats -CT abdomen/pelvis showing right psoas fluid collection measuring 10 x 5 x 7 cm, contiguous with the right posterior perinephric fascia.? No associated gas, however given leukocytosis and fever, abscess should be considered.? There also multiple large nonobstructive calculi redemonstrated and right kidney as well as a stable appearing rounded fluid density structure abutting or emanating from the lower right pole of the kidney s/p drainage yesterday- 200 mL of pus? drainage came out has deyvi myers-still draining serosingunous fluid -UA with 3+ leuks, 2+ blood, no bacteria, no nitrates -Blood cultures neg@48hr and urine culture mixed jaret wound culture - Proteus species, cytology also pending -2g IV ceftriaxone daily and metronidazole 500mg q8h -leucocytois and h/h slightly trending down , no fevers , cultures pending - seen by surgery and Urology status post drainage, continue IV antibiotics, ID evaluation, follow cultures #Noninsulin dependent type 2 diabetes -POC glucose -Diabetic diet now. -Humalog on ss,hold lantus. #HTN- bp soft -Continue lasix -Hold lisinopril #hypothyroidism -continue levothyroxone #Gerd -continue ppo #hld -continue statin # possible Cirrhosis of the liver -CT abd/pelvis with morphologically cirrhotic liver -AST 61/ALT 61 -No ETOH hx -Needs outpt follow up normocytic anemia: h/h somewhat trend down 9.3/28.5 ? Denies any blood in the stool or melena. ? Monitor CBC, anemia workup added-seems mixed type anemia -acod/iron def/folate. added fobt mild melany: due to dehydration /lasix use: hold lasix ?obesity: Encouraged to lose weight. DVT prophylaxis- mech devices. ongoing inpatient need:possible retroperitoneal abscess requiring IV antibiotics, close monitoring clinically,cultures followup?,moniter drainage Quality Stroke Does the patient have a stroke diagnosis?: No VTE Prior VTE?: No VTE Risk Level:: Medical - moderate - high VTE Device Contraindication: Treatment Not Indicated VTE Drug Contraindication: N/A - Med Ordered
[2021-12-13] MEDS: Pyridoxine HCl (Vitamin B6) 50 MG TABLET 100 MG PO (09:48)
[2021-12-13] MEDS: Cholecalciferol (Vitamin D3) 25 MCG TABLET 50 MCG PO (09:48)
[2021-12-13] MEDS: Folic Acid 1 MG TABLET 2 MG PO (09:48)
[2021-12-13] MEDS: 0.9 % Sodium Chloride Flush 3 ML SYRINGE IVFLUSH ×2 (09:49→16:39)
[2021-12-13] MEDS: oxyCODONE HCl Immed Release 5 MG TABLET PO ×2 (09:58→16:38)
[2021-12-13] MEDS: Acetaminophen 325 MG TABLET 650 MG PO ×2 (09:58→16:39)
[2021-12-13 11:06] VITALS: BP 138/63; PULSE 72; RESP 18; TEMP 36.1; O2SAT 98
[2021-12-13 11:22] LABS: Glucose, Whole Blood 142 mg/dL (60-115)
[2021-12-13 15:27] VITALS: BP 119/60; PULSE 79; RESP 19; TEMP 36.6; O2SAT 100
[2021-12-13 15:46] LABS: Glucose, Whole Blood 129 mg/dL (60-115)
[2021-12-13] MEDS: Atorvastatin Calcium 10 MG TABLET PO (16:39)
[2021-12-13] MEDS: cefTRIAXone sodium 2 GM in 0.9 % Sodium Chloride 50 ML IV (16:39)
[2021-12-13 19:02] VITALS: BP 127/64; PULSE 73; RESP 19; TEMP 35.8; O2SAT 98
[2021-12-13 19:44] LABS: Glucose, Whole Blood 160 mg/dL (60-115)
[2021-12-13 23:00] VITALS: BP 145/63; PULSE 77; RESP 16; TEMP 36; O2SAT 100
[2021-12-14] MEDS: Acetaminophen 325 MG TABLET 650 MG PO ×4 (02:00→21:48)
[2021-12-14] MEDS: metroNIDAZOLE/NS 500 MG/100 ML PIGGYBACK 100 MG IV ×3 (02:00→20:25)
[2021-12-14] MEDS: 0.9 % Sodium Chloride Flush 3 ML SYRINGE IVFLUSH ×4 (02:00→20:28)
[2021-12-14] MEDS: oxyCODONE HCl Immed Release 5 MG TABLET PO ×4 (02:09→21:50)
[2021-12-14 04:00] VITALS: BP 117/57; PULSE 73; RESP 17; TEMP 36.1; O2SAT 96
[2021-12-14] MEDS: Levothyroxine Sodium 112 MCG TABLET PO (05:21)
[2021-12-14] MEDS: Omeprazole 20 MG CAPSULE.DR PO (05:21)
[2021-12-14 07:38] LABS: Glucose, Whole Blood 113 mg/dL (60-115)
[2021-12-14 08:00] VITALS: BP 147/77; PULSE 60; RESP 18; TEMP 36.4; O2SAT 99
[2021-12-14] MEDS: Pyridoxine HCl (Vitamin B6) 50 MG TABLET 100 MG PO (08:58)
[2021-12-14] MEDS: Furosemide 40 MG TABLET PO (08:58)
[2021-12-14] MEDS: Folic Acid 1 MG TABLET 2 MG PO (08:58)
[2021-12-14] MEDS: Cholecalciferol (Vitamin D3) 25 MCG TABLET 50 MCG PO (08:58)
--- NOTE | 2021-12-14 10:24 | P.PNIM_ITS ---
Subjective Subjective Date of Service: 12/14/21 Interval History: Retroperitoneal abscess Review of Systems back pain - improving,still draining significantly . ? Denies any abdominal pain or nausea vomiting or any blood in the stool or janette lashell. Physical Exam Vital Signs: Vital Signs: Last Vital Signs Temp 97.5 F 12/14/21 08:00 Pulse 60 12/14/21 08:00 Resp 18 12/14/21 08:00 BP 147/77 H 12/14/21 08:00 Pulse Ox 99 12/14/21 08:00 O2 Del Method 12/14/21 08:00 FiO2 100 12/13/21 15:27 BMI result Body Mass Index 32.5 Appearance: Alert.? Oriented X3.? cvs: rrr, [id number] . res: clear to auscultation ,no rhonchii or wheezing abd: no rebound or guarding ,back pain , right sided lateral back pain,upper right buttock ,has drainge - pikish/serosignous fluid, bs present. ? No erythema or any fluctuation ext pulses present , no cyanosis . neuro: axo3 , nonfocal Objective Data Active Medications Acetaminophen (Acetaminophen 325 Mg Tablet) 650 mg PO Q6H PRN PRN Reason: Pain, Mild, fever Last Admin: 12/14/21 08:59 Dose: 650 mg Documented By: NEW Atorvastatin Calcium (Atorvastatin Calcium 10 Mg Tablet) 10 mg PO DAILY@1700 [facility] Last Admin: 12/13/21 16:39 Dose: 10 mg Documented By: MIQUEL Dextrose (Dextrose 50 % 25 Gm/50 Ml Syringe) 25 gm IVPUSH Q15M PRN; Protocol PRN Reason: per Hypoglycemia Standing Ord. Docusate Sodium (Docusate Sodium 100 Mg Capsule) 100 mg PO BEDTIME [facility] Last Admin: 12/13/21 19:11 Dose: Not Given Documented By: MIQUEL Non-Admin Reason: loose stools Folic Acid (Folic Acid 1 Mg Tablet) 2 mg PO DAILY [facility] Last Admin: 12/14/21 08:58 Dose: 2 mg Documented By: NEW Furosemide (Furosemide 40 Mg Tablet) 40 mg PO DAILY [facility]; Protocol Last Admin: 12/14/21 08:58 Dose: 40 mg Documented By: NEW Glucose (Glucose Gel 15 Gm Gel..Gram.) 15 gm PO Q15M PRN; Protocol PRN Reason: per Hypoglycemia Standing Ord. Hydromorphone HCl (Hydromorphone Hcl 0.5 Mg/0.5 Ml Syringe) 0.25 mg IVPUSH Q4H PRN; Protocol PRN Reason: Pain, Moderate (Pain Scale 4-6 Last Admin: 12/10/21 18:24 Dose: 0.25 mg Documented By: MIGUEL Ceftriaxone Sodium 2 gm/ (Sodium Chloride) 50 mls @ 100 mls/hr IV Q24H [facility] Last Infusion: 12/13/21 17:31 Dose: 0 mls/hr Documented By: MIQUEL Metronidazole (Flagyl) 500 mg in 100 mls @ 100 mls/hr IV Q8H [facility] Last Infusion: 12/14/21 03:04 Dose: 0 mls/hr Documented By: GRIFFIN Insulin Human Lispro (Insulin Lispro 100 Unit/Ml 3 Ml Vial) 0 unit SUBCUT QIDACHS [facility]; Protocol Last Admin: 12/14/21 07:39 Dose: Not Given Documented By: NEW Non-Admin Reason: No Insulin Coverage Levothyroxine Sodium (Levothyroxine Sodium 112 Mcg Tablet) 112 mcg PO DAILY@0600 [facility] Last Admin: 12/14/21 05:21 Dose: 112 mcg Documented By: GRIFFIN Lidocaine (Lidocaine 4 % Patch Adh..Patch) 1 patch TRANSDERMA DAILY [facility]; Protocol Last Admin: 12/14/21 09:16 Dose: Not Given Documented By: NEW Non-Admin Reason: Patient Refused Omeprazole (Omeprazole 20 Mg [place].) 20 mg PO DAILY@0630 [facility] Last Admin: 12/14/21 05:21 Dose: 20 mg Documented By: GRIFFIN Ondansetron HCl (Ondansetron Hcl 4 Mg/2 Ml Vial) 4 mg IVPUSH Q8H PRN PRN Reason: Nausea and Vomiting Oxycodone HCl (Oxycodone Hcl Immed Release 5 Mg Tablet) 5 mg PO Q6H PRN PRN Reason: Pain, Severe (Pain Scale 7-10) Last Admin: 12/14/21 08:58 Dose: 5 mg Documented By: NEW Pharmacy Consult (Consult Rx Perform Med Rec) 1 each MISCELLANE ONCE PRN PRN Reason: Consult order Polyethylene Glycol (Polyethylene Glycol 3350 17 Gm Powd.Pack) 17 gm PO DAILY PRN PRN Reason: Constipation Pyridoxine HCl (Pyridoxine Hcl (Vitamin B6) 50 Mg Tablet) 100 mg PO DAILY [facility] Last Admin: 12/14/21 08:58 Dose: 100 mg Documented By: NEW Sodium Chloride (0.9 % Sodium Chloride Flush 3 Ml Syringe) 3 ml IVFLUSH QSHIFT [facility] Last Admin: 12/14/21 08:57 Dose: 3 ml Documented By: NEW Vitamin D (Cholecalciferol (Vitamin D3) 25 Mcg Tablet) 50 mcg PO DAILY [facility] Last Admin: 12/14/21 08:58 Dose: 50 mcg Documented By: NEW Labs CBC & Chem 7: 12/13/21 07:36 12/13/21 07:36 Labs: Laboratory Results - last 24 hr 12/13/21 12/13/21 12/13/21 11:06 15:40 19:37 POC Glucose 142 H 129 H 160 H 12/14/21 07:19 POC Glucose 113 Microbiology Microbiology Results: Microbiology 12/09/21 17:13 Gram Stain - Final Abdominal Fluid Routine Culture - Final Proteus mirabilis Anaerobic Culture - Final 12/08/21 15:29 Blood Culture - Final Blood - Venous No growth after 5 days. 12/08/21 15:01 Blood Culture - Final Blood - Venous No growth after 5 days. Assessment and Plan (1) Sepsis: Status: Acute Plan 76-year-old female with hypertension, hypothyroidism, [id number] type 2 diabetes, GERD, hyperlipidemia, anxiety, history of nephrolithiasis, and fatty liver to be admitted for possible retroperitoneal collection concerning for retroperitoneal abscess given history urologic procedures in the past vs evolving perinephric hematoma with leukocytosis. # sepsis sec Retroperitoneal abscess sepsis improving -Leukocytosis 11. Right low back/hip pain without injury with subjective fevers/night sweats -CT abdomen/pelvis showing right psoas fluid collection measuring 10 x 5 x 7 cm, contiguous with the right posterior perinephric fascia.? No associated gas, however given leukocytosis and fever, abscess should be considered.? There also multiple large nonobstructive calculi redemonstrated and right kidney as well as a stable appearing rounded fluid density structure abutting or emanating from the lower right pole of the kidney s/p drainage -still draining significantly -Blood cultures neg@48hr and urine culture mixed jaret wound culture - Proteus species, cytology also pending CT urogram performed No evidence of communication or extravasation of contrast into psoas abscess. -2g IV ceftriaxone daily and metronidazole 500mg q8h -leucocytois and h/h slightly trending down , no fevers still draining significantly as per Urology- Most likely abscess represents chronic seroma that may have become infected Continue with drainage and treatment with antibiotics Drain should be removed after antibiotic course complete. Id and urology follow up #Noninsulin dependent type 2 diabetes -POC glucose -Diabetic diet now. -Humalog on ss,hold lantus. #HTN- bp soft -Continue lasix -Hold lisinopril #hypothyroidism -continue levothyroxone #Gerd -continue ppo #hld -continue statin # possible Cirrhosis of the liver -CT abd/pelvis with morphologically cirrhotic liver -AST 61/ALT 61 -No ETOH hx -Needs outpt follow up normocytic anemia: h/h somewhat trend down 9.3/28.5 ? Denies any blood in the stool or melena. ? Monitor CBC, anemia workup added-seems mixed type anemia -acod/iron def/folate. added fobt mild melany: due to dehydration /lasix use:seems improving moniter bmp ,may start lasix in am ?obesity: Encouraged to lose weight. DVT prophylaxis- mech devices. ongoing inpatient need:possible retroperitoneal abscess requiring IV antibiotics, close monitoring clinically,cultures followup?,moniter drainage Quality Stroke Does the patient have a stroke diagnosis?: No VTE Prior VTE?: No VTE Risk Level:: Medical - moderate - high VTE Device Contraindication: Treatment Not Indicated VTE Drug Contraindication: N/A - Med Ordered
[2021-12-14 11:53] LABS: Glucose, Whole Blood 143 mg/dL (60-115)
[2021-12-14 12:00] VITALS: BP 131/62; PULSE 72; RESP 18; TEMP 36.2; O2SAT 99
--- NOTE | 2021-12-14 12:43 | MHC.CM.PN ---
PER MD ROUNDS, PT WILL REQUIRE 1-2 MORE DAYS DCP REMAINS HOME WITH NO SERVICES VIA PRIVATE TRANSPORT
--- NOTE | 2021-12-14 13:04 | MHC.CLN ---
F/U PO INTAKE 75-100% DIET RX: 1800DM-APPROPRIATE CONTINUE TO MONITOR PO RD TO F/U X 7 DAYS
--- NOTE | 2021-12-14 13:19 | P.CDIC_ITS ---
CDI Concurrent Query Documentation Clarification: PHYSICIAN'S DOCUMENTATION REQUEST Date of Query: 12/14/21 1319 Patient Name: Xi Garrison Admit Date: 12/08/21 Dear Doctor, A review of the medical record indicates additional documentation may be needed. Please review below and update the documentation accordingly. Clinical Indicators: Is there a diagnosis that correlates with the findings below. The patient's infectious clinical indicators include: Risk Factors/Clinical Indicators/Treatments POA/RESLOVED/TREAT/RULE OUT LABS & VITALS: WBC on 12/08: 23.2 WBC on 12/09: 22.7 TEMP on 12/09: 100.5 TEMP on 12/13: 96.5 HR on 12/08: 104 Abdominal culture on 12/09 (+) for gram negative rods PER PROVIDER NOTES: leukocytosis and fever ADMINISTERED MEDICATIONS: Ceftriaxone Flagyl Patient also being treated for acute UTI as well as abscess Recognized standard criteria for this condition and other infectious definitions includes: Sepsis Systemic manifestations of infection, with 2 or more SIRS criteria which include: * Fever > 100.4?F or hypothermia < 96.8?F * Leukocytosis ? WBC > 12,000 or leukopenia, WBC < 4,000, or > 10% bands * Tachycardia- > 90 beats/minute * Tachypnea- RR > 20 breaths/minute or PaCO2 < 32mmHg Source: [employer] Manual 2013 Documentation should include the known or suspected organism, and the underlying infection, such as UTI or pneumonia Severe Sepsis Sepsis with associated acute organ dysfunction, such as renal or respiratory failure Documentation should indicate the association between the sepsis and the organ dysfunction Septic Shock Severe sepsis with associated with circulatory failure, evidenced by hypotension and hypoperfusion Based on the above information and the recognized standard for sepsis, could you please clarify in the Progress Notes if this diagnoses is still accurate and reflective of the patient's condition to ensure quality of the medical record. * Sepsis is/was present and is a clinical diagnosis based on (please include this additional support in the medical record) * After study (the condition) has been ruled out * Other (please specify) * Unable to determine Use of terms such as suspected, likely, concern for, or probable (associated with a specific diagnosis that is being evaluated, monitored, or treated as if it exists) are acceptable and can be coded in the inpatient setting, when documented at the time of discharge. Thank you, Dunia Kingston MS, RN, CCRN Extension: [phone] Please use your independent medical judgment in providing your response. THIS QUERY IS PART OF THE PERMANENT MEDICAL RECORD Provider Response: Other Other Diagnosis: possible sepsis sec abcess
[2021-12-14] MEDS: cefTRIAXone sodium 2 GM in 0.9 % Sodium Chloride 50 ML IV (15:11)
[2021-12-14 15:36] VITALS: BP 141/65; PULSE 76; RESP 18; TEMP 36.2; O2SAT 99
[2021-12-14 16:40] LABS: Glucose, Whole Blood 142 mg/dL (60-115)
[2021-12-14] MEDS: Atorvastatin Calcium 10 MG TABLET PO (17:21)
[2021-12-14 19:28] VITALS: BP 149/70; PULSE 73; RESP 16; TEMP 36.4; O2SAT 96
[2021-12-14 20:06] LABS: Glucose, Whole Blood 146 mg/dL (60-115)
--- NOTE | 2021-12-14 23:06 | PM.IDPN ---
Subjective Subjective Date of Service: 12/14/21 Critical Care Time (minutes): 15 Comment: she feels better she has no complaint,drain in still Objective Data Labs CBC & Chem 7: 12/13/21 07:36 12/13/21 07:36 Labs: Laboratory Results - last 24 hr 12/14/21 12/14/21 12/14/21 07:19 11:42 15:40 POC Glucose 113 143 H 142 H 12/14/21 19:31 POC Glucose 146 H Microbiology Microbiology Results: Microbiology 12/09/21 17:13 Abdominal Fluid Gram Stain - Final 12/09/21 17:13 Abdominal Fluid Routine Culture - Final Proteus mirabilis 12/09/21 17:13 Abdominal Fluid Anaerobic Culture - Final 12/08/21 15:29 Blood - Venous Blood Culture - Final No growth after 5 days. 12/08/21 15:01 Blood - Venous Blood Culture - Final No growth after 5 days. 12/08/21 Unknown Urine clean catch - Urine alonso top Urine Culture - Final Physical Exam Vital Signs: Vital Signs: Last Vital Signs Temp 97.5 F 12/14/21 19:28 Pulse 73 12/14/21 19:28 Resp 16 12/14/21 19:28 BP 149/70 H 12/14/21 19:28 Pulse Ox 96 12/14/21 19:28 O2 Del Method 12/14/21 19:28 FiO2 100 12/13/21 15:27 BMI result Body Mass Index 32.5 Const: General: cooperative HEENT: Head: Yes normal to inspection Mouth: Normal oral and palatal mucosa present Resp: Effort & Inspection: normal respiratory effort Cardio: Rate: regular rate Rhythm: regular rhythm GI: Palpation (GI): Soft to palpation and Tenderness to palpation present (GI) Assessment and Plan Assessment and plan (1) Sepsis: Status: Acute (2) Retroperitoneal fluid collection: Status: Acute Plan proteus abdominal infection still some collections on CT,not drainable Would continue Ceftriaxone for fourteen days IV if able Flagyl for [address] abdomen if worsens symptoms Time Spent With Patient Time: Total time spent is greater than 50% in coordination of care (as documented) at patient's floor/unit and/or counseling patient:
[2021-12-14 23:44] VITALS: BP 126/56; PULSE 58; RESP 14; TEMP 36.1; O2SAT 99
[2021-12-15 04:00] VITALS: BP 138/65; PULSE 63; RESP 14; TEMP 36.1; O2SAT 99
[2021-12-15] MEDS: Acetaminophen 325 MG TABLET 650 MG PO ×3 (04:00→16:23)
[2021-12-15] MEDS: oxyCODONE HCl Immed Release 5 MG TABLET PO ×3 (04:01→16:23)
[2021-12-15] MEDS: metroNIDAZOLE/NS 500 MG/100 ML PIGGYBACK 100 MG IV ×3 (04:01→18:31)
[2021-12-15] MEDS: Omeprazole 20 MG CAPSULE.DR PO (05:52)
[2021-12-15] MEDS: Levothyroxine Sodium 112 MCG TABLET PO (05:52)
[2021-12-15 06:21] LABS: Hematocrit 30.1 % (37.0-47.0); Hemoglobin 9.4 g/dl (12.0-16.0); Mean Corpuscular HGB Conc 31.2 g/dl (31.0-35.0); Mean Corpuscular Hemoglobin 28.7 pg (27.0-33.0); Mean Platelet Volume 8.6 fL (9.4-12.3); Platelet Count 321 X10*3/uL (160-400); Red Blood Count 3.27 X10*6/uL (4.20-5.50); Red Cell Distribution Width 16.5 % (11.0-16.0); White Blood Count 8.8 X10*3/uL (4.8-10.8)
[2021-12-15 06:39] LABS: Anion Gap 15 (12-20); Blood Urea Nitrogen 13 mg/dL (9-16); Calcium 8.3 mg/dL (8.4-10.2); Carbon Dioxide 23 mmol/L (22-29); Chloride 107 mmol/L (96-108); Creatinine Clr Calc Pharmacy 50.4; Estimated Glomerular Filt Rate 52; Glucose Random 116 mg/dL (60-115); Potassium 3.7 mmol/L (3.3-5.1); Sodium 141 mmol/L (135-145)
[2021-12-15 07:00] VITALS: BP 133/60; PULSE 70; RESP 18; TEMP 36.1; O2SAT 98
[2021-12-15 07:17] LABS: Glucose, Whole Blood 110 mg/dL (60-115)
[2021-12-15] MEDS: Folic Acid 1 MG TABLET 2 MG PO (09:29)
[2021-12-15] MEDS: Pyridoxine HCl (Vitamin B6) 50 MG TABLET 100 MG PO (09:29)
[2021-12-15] MEDS: Cholecalciferol (Vitamin D3) 25 MCG TABLET 50 MCG PO (09:29)
[2021-12-15] MEDS: Furosemide 40 MG TABLET PO (09:29)
[2021-12-15] MEDS: 0.9 % Sodium Chloride Flush 3 ML SYRINGE IVFLUSH ×2 (09:30→15:12)
[2021-12-15 10:53] VITALS: BP 129/60; PULSE 69; RESP 18; TEMP 36.1; O2SAT 100
[2021-12-15 11:02] LABS: Glucose, Whole Blood 129 mg/dL (60-115)
--- NOTE | 2021-12-15 12:45 | HO.PM.IMPN ---
Subjective Subjective Date of Service: 12/15/21 Interval History: Follow up Retroperitoneal abscess Still with diarrhea pain is better, mostly at drain insertion site Review of Systems back pain - improving,still draining significantly . ? Denies any abdominal pain or nausea vomiting or any blood in the stool or melena. Physical Exam Vital Signs: Vital Signs: Last Vital Signs Temp 97 F 12/15/21 10:53 Pulse 69 12/15/21 10:53 Resp 18 12/15/21 10:53 BP 129/60 12/15/21 10:53 Pulse Ox 100 12/15/21 10:53 O2 Del Method 12/15/21 10:53 FiO2 100 12/13/21 15:27 BMI result Body Mass Index 32.5 Appearing in no acute distress lung sounds are clear to auscultation heart regular rate rhythm, clear S1, S2 positive bowel sounds, abdomen is soft, nontender neuro patient is alert x3, no focal deficits Drain right flank Objective Data Active Medications Acetaminophen (Acetaminophen 325 Mg Tablet) 650 mg PO Q6H PRN PRN Reason: Pain, Mild, fever Last Admin: 12/15/21 10:13 Dose: 650 mg Documented By: NEW Atorvastatin Calcium (Atorvastatin Calcium 10 Mg Tablet) 10 mg PO DAILY@1700 [facility] Last Admin: 12/14/21 17:21 Dose: 10 mg Documented By: NEW Dextrose (Dextrose 50 % 25 Gm/50 Ml Syringe) 25 gm IVPUSH Q15M PRN; Protocol PRN Reason: per Hypoglycemia Standing Ord. Docusate Sodium (Docusate Sodium 100 Mg Capsule) 100 mg PO BEDTIME [facility] [place] Last Admin: 12/14/21 20:32 Dose: Not Given Documented By: CARMEN Non-Admin Reason: pt had 4 loose stools today 12/14/21 Folic Acid (Folic Acid 1 Mg Tablet) 2 mg PO DAILY [facility] [place] Last Admin: 12/15/21 09:29 Dose: 2 mg Documented By: NEW Furosemide (Furosemide 40 Mg Tablet) 40 mg PO DAILY [facility] [place]; Protocol Last Admin: 12/15/21 09:29 Dose: 40 mg Documented By: NEW Glucose (Glucose Gel 15 Gm Gel..Gram.) 15 gm PO Q15M PRN; Protocol PRN Reason: per Hypoglycemia Standing Ord. Hydromorphone HCl (Hydromorphone Hcl 0.5 Mg/0.5 Ml Syringe) 0.25 mg IVPUSH Q4H PRN; Protocol PRN Reason: Pain, Moderate (Pain Scale 4-6 Last Admin: 12/10/21 18:24 Dose: 0.25 mg Documented By: MIGUEL Ceftriaxone Sodium 2 gm/ (Sodium Chloride) 50 mls @ 100 mls/hr IV Q24H [facility] [place] Last Infusion: 12/14/21 16:01 Dose: 0 mls/hr Documented By: NEW Metronidazole (Flagyl) 500 mg in 100 mls @ 100 mls/hr IV Q8H [facility] [place] Last Infusion: 12/15/21 12:29 Dose: 0 mls/hr Documented By: NEW Insulin Human Lispro (Insulin Lispro 100 Unit/Ml 3 Ml Vial) 0 unit SUBCUT QIDACHS [facility] [place]; Protocol Last Admin: 12/15/21 11:28 Dose: Not Given Documented By: NEW Non-Admin Reason: No Insulin Coverage Levothyroxine Sodium (Levothyroxine Sodium 112 Mcg Tablet) 112 mcg PO DAILY@0600 [facility] [place] Last Admin: 12/15/21 05:52 Dose: 112 mcg Documented By: CARMEN Lidocaine (Lidocaine 4 % Patch Adh..Patch) 1 patch TRANSDERMA DAILY [facility] [place]; Protocol Last Admin: 12/15/21 09:31 Dose: Not Given Documented By: NEW Non-Admin Reason: Patient Refused Omeprazole (Omeprazole 20 Mg Capsule.) 20 mg PO DAILY@0630 [facility] [place] Last Admin: 12/15/21 05:52 Dose: 20 mg Documented By: CARMEN Ondansetron HCl (Ondansetron Hcl 4 Mg/2 Ml Vial) 4 mg IVPUSH Q8H PRN PRN Reason: Nausea and Vomiting Oxycodone HCl (Oxycodone Hcl Immed Release 5 Mg Tablet) 5 mg PO Q6H PRN PRN Reason: Pain, Severe (Pain Scale 7-10) Last Admin: 12/15/21 10:13 Dose: 5 mg Documented By: NEW Pharmacy Consult (Consult Rx Perform Med Rec) 1 each MISCELLANE ONCE PRN PRN Reason: Consult order Polyethylene Glycol (Polyethylene Glycol 3350 17 Gm Powd.Pack) 17 gm PO DAILY PRN PRN Reason: Constipation Pyridoxine HCl (Pyridoxine Hcl (Vitamin B6) 50 Mg Tablet) 100 mg PO DAILY [facility] [place] Last Admin: 12/15/21 09:29 Dose: 100 mg Documented By: NEW Sodium Chloride (0.9 % Sodium Chloride Flush 3 Ml Syringe) 3 ml IVFLUSH QSHIFT [facility] [place] Last Admin: 12/15/21 09:30 Dose: 3 ml Documented By: NEW Vitamin D (Cholecalciferol (Vitamin D3) 25 Mcg Tablet) 50 mcg PO DAILY [facility] [place] Last Admin: 12/15/21 09:29 Dose: 50 mcg Documented By: NEW Labs CBC & Chem 7: 12/15/21 05:42 12/15/21 05:42 Labs: Laboratory Results - last 24 hr 12/14/21 12/14/21 12/15/21 15:40 19:31 05:42 MCV 92.0 MCH 28.7 MCHC 31.2 RDW 16.5 H Plt Count 321 MPV 8.6 L Absolute Nucleated RBC 0.000 Nucleated RBC % (auto) 0.0 Anion Gap Estim Creat Clear Calc Estimated GFR POC Glucose 142 H 146 H Random Glucose Calcium 12/15/21 12/15/21 12/15/21 05:42 07:00 10:52 MCV MCH MCHC RDW Plt Count MPV Absolute Nucleated RBC Nucleated RBC % (auto) Anion Gap 15 Estim Creat Clear Calc 50.4 Estimated GFR 52 POC Glucose 110 129 H Random Glucose 116 H Calcium 8.3 L D Microbiology Microbiology Results: Microbiology 12/09/21 17:13 Gram Stain - Final Abdominal Fluid Routine Culture - Final Proteus mirabilis Anaerobic Culture - Final Assessment and Plan (1) Sepsis: Status: Acute Plan 76-year-old female with hypertension, hypothyroidism, [id number] type 2 diabetes, GERD, hyperlipidemia, anxiety, history of nephrolithiasis, and fatty liver to be admitted for possible retroperitoneal collection concerning for retroperitoneal abscess given history urologic procedures in the past vs evolving perinephric hematoma with leukocytosis. Sepsis secondary to Retroperitoneal abscess Leukocytosis 11. Right low back/hip pain without injury with subjective fevers/night sweats CT abdomen/pelvis showing right psoas fluid collection measuring still draining significantly Blood cultures neg@48hr and urine culture mixed jaret wound culture - Proteus species 2g IV ceftriaxone daily and metronidazole 500mg q8h as per Urology- Most likely abscess represents chronic seroma that may have become infected Drain should be removed after antibiotic course complete. ID following Diabetes 2 ss, ada diet HTN- bp soft Continue lasix Hold lisinopril hypothyroidism continue levothyroxine Gerd continue ppi hld continue statin possible Cirrhosis of the liver CT abd/pelvis with morphologically cirrhotic liver AST 61/ALT 61 No ETOH hx-Needs outpt follow up normocytic anemia stable HH Mild FELICITA due to dehydration /lasix use Resolved seems improving Morbid Obesity BMI 32.6 Discussed importance of weight management as this may be contributing to worsening of other comorbidities DVT prophylaxis- mech devices. Attending Dr. Tomlinson Full code ongoing inpatient need:possible retroperitoneal abscess requiring IV antibiotics, close monitoring clinically,cultures followup?,moniter drainage Quality Stroke Does the patient have a stroke diagnosis?: No VTE Prior VTE?: No VTE Risk Level:: Medical - moderate - high VTE Device Contraindication: Treatment Not Indicated VTE Drug Contraindication: N/A - Med Ordered
[2021-12-15] MEDS: cefTRIAXone sodium 2 GM in 0.9 % Sodium Chloride 50 ML IV (15:07)
[2021-12-15 15:29] VITALS: BP 128/60; PULSE 79; RESP 18; TEMP 36.6; O2SAT 99
[2021-12-15 15:53] LABS: Glucose, Whole Blood 122 mg/dL (60-115)
[2021-12-15 16:17] LABS: OBS Int Ctl Valid YES; OBS1 POSITIVE (NEGATIVE)
[2021-12-15] MEDS: Atorvastatin Calcium 10 MG TABLET PO (16:23)
[2021-12-15 19:30] VITALS: BP 137/63; PULSE 18; RESP 18; TEMP 36.3; O2SAT 96
[2021-12-15 20:02] LABS: Glucose, Whole Blood 136 mg/dL (60-115)
[2021-12-15 23:29] VITALS: BP 145/65; PULSE 79; RESP 16; TEMP 36; O2SAT 99
[2021-12-16] MEDS: oxyCODONE HCl Immed Release 5 MG TABLET PO ×3 (03:10→16:29)
[2021-12-16] MEDS: metroNIDAZOLE/NS 500 MG/100 ML PIGGYBACK 100 MG IV ×2 (03:14→10:05)
[2021-12-16] MEDS: Acetaminophen 325 MG TABLET 650 MG PO ×3 (03:14→16:30)
[2021-12-16 03:38] VITALS: BP 134/62; PULSE 66; RESP 16; TEMP 36; O2SAT 98
[2021-12-16] MEDS: Omeprazole 20 MG CAPSULE.DR PO (06:16)
[2021-12-16] MEDS: Levothyroxine Sodium 112 MCG TABLET PO (06:16)
[2021-12-16 06:58] VITALS: BP 139/66; PULSE 69; RESP 17; TEMP 36.6; O2SAT 98
[2021-12-16 07:15] LABS: Glucose, Whole Blood 111 mg/dL (60-115)
[2021-12-16] MEDS: Cholecalciferol (Vitamin D3) 25 MCG TABLET 50 MCG PO (10:04)
[2021-12-16] MEDS: Furosemide 40 MG TABLET PO (10:04)
[2021-12-16] MEDS: Folic Acid 1 MG TABLET 2 MG PO (10:04)
[2021-12-16] MEDS: Pyridoxine HCl (Vitamin B6) 50 MG TABLET 100 MG PO (10:05)
[2021-12-16] MEDS: 0.9 % Sodium Chloride Flush 3 ML SYRINGE IVFLUSH ×2 (10:06→15:41)
[2021-12-16 11:23] LABS: Glucose, Whole Blood 151 mg/dL (60-115)
[2021-12-16 11:30] VITALS: BP 107/60; PULSE 70; RESP 18; TEMP 36; O2SAT 96
--- NOTE | 2021-12-16 13:36 | PM.UROPN ---
Subjective Subjective Date of Service: 12/16/21 Interval history: Remains with drain from right side Does have reasonable output Q shift Culture back with protease sensitive to Bactrim Recommend 14 day course 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 Can be seen in office next week for removal of drain Discussed drain output issues with patient Physical Exam Vital Signs: Vital Signs: Last Vital Signs Temp 96.8 F 12/16/21 11:30 Pulse 70 12/16/21 11:30 Resp 18 12/16/21 11:30 BP 107/60 12/16/21 11:30 Pulse Ox 96 12/16/21 11:30 O2 Del Method 12/16/21 11:30 FiO2 100 12/13/21 15:27 BMI result Body Mass Index 32.5 Const: General: cooperative, healthy appearing, comfortable and no acute distress Orientation/consciousness: patient oriented x3 HEENT: Face and sinus: Yes normal facial exam Mouth: moist mucous membranes Neck: Neck: Yes normal visual inspection, Yes full ROM and Yes trachea midline Chest: Chest palpation & inspection: normal inspection of the chest Resp: Effort & Inspection: normal respiratory effort, able to speak in complete sentences and no respiratory distress GI: Inspection: Yes normal to inspection Back/Spine/Pelvis: Cervical Spine: normal cervical lordosis Thoracic/Lumbar Spine: thoracic and lumbar spine normal to inspection Skin: General skin exam: no rashes or lesions noted Neuro: General: patient oriented x3, tone normal and moves all extremities Extrem: General: Yes normal to inspection and Yes capillary refill normal Urology Results Labs CBC & Chem 7: 12/15/21 05:42 12/15/21 05:42 Labs: Laboratory Results - last 24 hr 12/15/21 12/15/21 12/15/21 15:31 16:00 19:32 POC Glucose 122 H 136 H Stool Occult Blood POSITIVE 12/16/21 12/16/21 06:58 11:20 POC Glucose 111 151 H Stool Occult Blood Progress Note: A&P Assessment and plan (1) Retroperitoneal fluid collection: Status: Acute Plan Drain removal late next week as outpatient Time Spent With Patient Time: Total time spent is greater than 50% in coordination of care (as documented) at patient's floor/unit and/or counseling patient: Progress Note: Quality Stroke Does the patient have a stroke diagnosis?: No
--- NOTE | 2021-12-16 14:30 | P.DS_ITS ---
DS: Providers Provider Date of Service: 12/16/21 Date of admission: 12/08/21 18:50 Date of discharge: 12/16/21 Primary care physician: Preston Wang DO Consults: 12/08/21 17:28 Consult to Urology Stat Consulting Provider: Jose Reis Reason for consultation: retroperitoneal abscess, renal colic 12/08/21 18:49 Consult to General Surgery Routine Consulting Provider: Marino Jimenez Reason for consultation: ?retroperitoneal abscess 12/09/21 08:34 Consult to Urology Routine Consulting Provider: [facility] Reason for consultation: ? retriperitoneal hemtoma vs abcess Has provider been notified: No 12/09/21 13:49 Consult to Infectious Diseases Routine Consulting Provider: Charito López Reason for consultation: retroperitoneal abscess Has provider been notified: No Attending physician on discharge: Dilshad Tomlinson Discharging clinician: Sabina Myers DS: Diagnosis Discharge Diagnosis (1) Retroperitoneal fluid collection: Status: Acute DS: Summary Hospital Course Hospital Course: From H&P on day of admission 76-year-old female with hypertension, hypothyroidism, exh-dymbwyw-[id number] type 2 diabetes, GERD, hyperlipidemia, anxiety, and fatty liver presented to the ED this morning for evaluation of right low back pain with radiation to the right hip ongoing for 2 weeks.? There is also associated nausea without vomiting, decreased p.o. intake, night sweats, and 3 episodes of diarrhea daily.? She does have history of nephrolithiasis and was scheduled to undergo procedure with Dr. Daniel last week but was not feeling well.? On arrival to the ED, vital signs stable.? Patient afebrile.? Leukocytosis of 23.2.? Stable normocytic anemia.? Platelets 477.? Creatinine 1.20/BUN 16.? Sodium 133, CO2 21, electrolytes otherwise normal.? Glucose 164.? AST 61/ALT 61.? Total bilirubin 0.6.? Albumin 3.1.? Urinalysis significant for 3+ leukocytes, 2+ blood, nitrate negative, no bacteria.? CT abdomen/pelvis showing right psoas fluid collection measuring 10 x 5 x 7 cm, contiguous with the right posterior perinephric fascia.? No associated gas, however given leukocytosis and fever, abscess should be considered.? There also multiple large nonobstructive calculi redemonstrated and right kidney as well as a stable appearing rounded fluid density structure abutting or emanating from the lower right pole of the kidney, possibly chronic perinephric hematoma.? There is also a morphologically cirrhotic liver. Last urology procedure 06/2021 with lithotripsy and right stent placement. Denies any use of blood thinners. No fall or injury. ED discussed case with general surger who recommends IR drain and will be followed by urology. Sepsis secondary to Retroperitoneal abscess. CT abdomen/pelvis showing right psoas fluid collection. she had IR guided drainage of abscess. Blood cultures neg@48hr and urine culture mixed jaret. wound culture grew Proteus mirabilis. as per Urology- Most likely abscess represents chronic seroma that may have become infected. she has been afebrile since 12/09, leukocytosis has resolved. she was seen by urology in follow up who recommended discharge with po antibiotics and drain removal in the office. She was seen by ID who is in agreement as well. She will be discharged home with po ceftin and should call to schedule follow-up appointment in the urology office next week. The patient was evaluated by Physical therapy who recommended home with services. The patient has refused home PT /VNA. She prefers to empty her drain herself and discuss the possibility of outpatient physical therapy with her PCP. She and her significant other were both taught care for the drain and instructed to monitor output amount. HTN- bp soft. lisinopril has been discontinued for now. Patient should call to schedule follow-up appointment with PCP for close blood pressure monitoring as she has declined visiting nurses. possible Cirrhosis of the liver. CT abd/pelvis with morphologically cirrhotic liver. Recommend outpatient follow-up noted to have heme-positive stool. No active bleeding noted. Recommend outpatient follow-up with GI/PCP. H/ H has been stable. Time Spent with Patient Time attestation: Total time spent providing and/or coordinating discharge services: Discharge coordination time: Greater than 30 minutes Quality: Safe Use of Opioids Does Pt have an Active Cancer Diagnosis on the Problem List?: No Quality: Stroke Does the patient have a stroke diagnosis?: No Physical Exam Vital Signs: Vital Signs: Last Vital Signs Temp 96.8 F 12/16/21 11:30 Pulse 70 12/16/21 11:30 Resp 18 12/16/21 11:30 BP 107/60 12/16/21 11:30 Pulse Ox 96 12/16/21 11:30 O2 Del Method 12/16/21 11:30 FiO2 100 12/13/21 15:27 BMI result Body Mass Index 32.5 Const: General: cooperative, comfortable, alert and awake Nutritional Appearance: overweight Orientation/consciousness: patient oriented x3 Resp: Effort & Inspection: normal respiratory effort and able to speak in complete sentences Cardio: Rate: regular rate Heart sounds: S1 normal heart sound present and S2 normal heart sound present GI: Other: drain right flank with small amount of purulent discharge Inspection: No distended Palpation (GI): Soft to palpation and nontender Neuro: General: patient oriented x3 and CN's II-XI intact bilaterally Extrem: General: Yes no pedal edema DS: Data Data Completed and Pending Completed studies during hospitalization [Text1]: Procedures Dilation of Right Ureter with Intraluminal Device, Via Natural or Artificial Opening Endoscopic (04/05/21) Extirpation of Matter from Right Ureter, Via Natural or Artificial Opening Endoscopic (04/05/21) Fluoroscopy of Right Kidney, Ureter and Bladder (04/05/21) Pending studies at discharge: Pending at discharge 12/09/21 17:13 Cytology [PTH] Urgent Labs on day of discharge: Laboratory Results - last 24 hr 12/15/21 12/15/21 12/15/21 15:31 16:00 19:32 POC Glucose 122 H 136 H Stool Occult Blood POSITIVE 12/16/21 12/16/21 06:58 11:20 POC Glucose 111 151 H Stool Occult Blood Discharge Plan Discharge Anticipated Discharge Date/Time: 12/16/21 14:01 Patient Disposition: [facility] Discharge Diagnosis: retroperitoneal abscess [facility]errals: [facility] [Outside] - 1 Week Jose Reis MD [Physician] - 1 Week Preston Wang DO [Primary Care Provider] - 1 Week Bambi Jackson MD [Physician] - 1 Week Discharge Medications: New lidocaine [Lidocaine Pain Relief] 4 % Adhesive Patch,Medicated 1 patch transdermal DAILY Qty: 30 0RF Protocol: Apply to: Apply to: affected area oxycodone 5 mg tablet 5 mg PO BID PRN (Reason: pain) Qty: 10 0RF Rx Instructions: Partial Fill upon patient request. cefuroxime axetil 500 mg tablet 500 mg PO BID 10 Days Qty: 20 0RF Continued atorvastatin 10 mg tablet 1 tab PO DAILY@1700 pyridoxine (vitamin B6) 100 mg tablet 1 tab PO DAILY metformin 500 mg tablet extended release 24 hr 1 tab PO DAILY@1700 cholecalciferol (vitamin D3) [Vitamin D3] 50 mcg (2,000 unit) Capsule 50 mcg PO DAILY levothyroxine 112 mcg tablet 112 mcg PO DAILY omeprazole 20 mg capsule,delayed release(DR/EC) 20 mg PO DAILY@0630 Changed furosemide 40 mg tablet 40 mg PO DAILY Qty: 30 0RF Discontinued lisinopril 10 mg tablet 10 mg PO DAILY nitrofurantoin macrocrystal 100 mg capsule 100 mg PO DAILY 90 Days Qty: 90 1RF Rx Instructions: Daily for prophylaxis Discharge Orders: Discharge Order (Routine); Ordered 12/16/21 Ordered By: Sabina Myers Activity on Discharge: As tolerated Stand Alone Forms: Patient Portal Discharge page Care Plan Goals: see below Health Concerns: retroperitoneal abscess Plan of Treatment: complete course 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 as prescribed call to schedule follow up with urology, for removal of drain call to schedule follow up with GI due to heme positive stool blood pressure has been stable off of Lisinopril - do not take lisinopril until follow up with pcp dose of lasix has been decreased from twice daily to once daily. monitor fluid status monitor output of right retroperitoneal drain call to schedule follow up with PCP for blood pressure monitoring Assessment: see discharge summary Discharge Date/Time: 12/16/21 18:00
[2021-12-16 15:20] VITALS: BP 140/64; PULSE 73; RESP 17; TEMP 36.3; O2SAT 98
[2021-12-16] MEDS: cefTRIAXone sodium 2 GM in 0.9 % Sodium Chloride 50 ML IV (15:41)
[2021-12-16] MEDS: Atorvastatin Calcium 10 MG TABLET PO (15:49)
[2021-12-16 16:16] LABS: COVID-19 Test Negative (Negative)
[2021-12-16 16:22] LABS: Glucose, Whole Blood 124 mg/dL (60-115)
--- NOTE | 2021-12-16 16:32 | MHC.CM.PN ---
IMM 12/16/21 Discharged to [facility] via BLS scheduled 5:30pm. All dc info and covid testresult has been sent to the facility.
== END 2021-12-16 18:00 | disposition skilled nursing facility (03) | DRG 872 ==
LOC: HO.ED 18:18 → HO.EDOVER 19:00 → HO.S3 12-09 11:46
PROVIDERS: Emergency Medicine; Internal Medicine; Nurse Practitioner Acute Care; Nurse Practitioner Family; Radiology Diagnostic Radiology; Surgery; Admitting Provider Physician Assistant; Emergency Provider Student in an Organized Health Care Education/Training Program; PCP Internal Medicine; Visit Provider Physician Assistant Medical
PROC: 0W9H30Z Drainage of Retroperitoneum with Drainage Device, Percutaneous Approach (ICD-10-PCS; principal; 2021-12-09 15:30)
DX: A41.9 Sepsis, unspecified organism (principal); E03.9 Hypothyroidism, unspecified; E78.5 Hyperlipidemia, unspecified; K74.60 Unspecified cirrhosis of liver; I10 Essential (primary) hypertension; M79.7 Fibromyalgia; E78.00 Pure hypercholesterolemia, unspecified; K21.9 Gastro-esophageal reflux disease without esophagitis; F41.9 Anxiety disorder, unspecified; K76.0 Fatty (change of) liver, not elsewhere classified; E86.0 Dehydration; N20.0 Calculus of kidney; E66.01 Morbid (severe) obesity due to excess calories; D64.9 Anemia, unspecified; B96.4 Proteus (mirabilis) (morganii) as the cause of diseases classified elsewhere; Z68.32 Body mass index [BMI] 32.0-32.9, adult; Z87.442 Personal history of urinary calculi; Z87.891 Personal history of nicotine dependence; Z79.84 Long term (current) use of oral hypoglycemic drugs; Z79.890 Hormone replacement therapy; Z79.899 Other long term (current) drug therapy
CPT/HCPCS: 36415; 49406; 73030; 74176; 74178; 80048; 80076; 81001; 82272; 82607; 82728; 82746; 82947; 83540; 83605; 83690; 83735; 83986; 85014; 85018; 85025; 85027; 85610; 86850; 86900; 86901; 87040; 87070; 87073; 87077; 87086; 87186; 87205; 87635; 88112; 88305; 89051; 97161; 99152; 99153; 99285; C1729; C1769; J0696; J1170; J2270; J2405; J3430; P9047; Q9967

== ENCOUNTER 2021-12-24 13:02 | Outpatient (AMB) | payer MEDICARE, SELFPAY ==
--- NOTE | 2021-12-21 13:25 | MHC.OFFVIS ---
Intake Intake Visit Reasons: Remove Drain Intake Note: Patient is present for Drain removal Urology Medication: Vitamin B6, Macrobid Blood Thinner: Allergies chlorpheniramine [From TUSSIONEX] Allergy (Severe, Verified 12/26/22 17:27) HALLUCINATIONS escitalopram [ESCITALOPRAM] Allergy (Severe, Verified 12/26/22 17:27) DISSOCIATIVE REACTION fluoxetine [FLUOXETINE] Allergy (Severe, Verified 12/26/22 17:27) DISSOCIATIVE REACTION hydrocodone [From TUSSIONEX] Allergy (Severe, Verified 12/26/22 17:27) HALLUCINATIONS ibuprofen [IBUPROFEN] Allergy (Severe, Verified 12/26/22 17:27) THROAT SWELLING Sulfa (Sulfonamide Antibiotics) [SULFA (SULFONAMIDE ANTIBIOTICS)] Allergy (Severe, Verified 12/26/22 17:27) DYSPNEA clarithromycin [From BIAXIN] Allergy (Intermediate, Verified 12/26/22 17:27) ABD.PAIN duloxetine [DULOXETINE] Allergy (Intermediate, Verified 12/26/22 17:27) FACIAL NUMBNESS erythromycin base [ERYTHROMYCIN BASE] Allergy (Intermediate, Verified 12/26/22 17:27) RASH Penicillins [PENICILLINS] Allergy (Intermediate, Verified 12/26/22 17:27) RASH tetracycline [TETRACYCLINE] Allergy (Intermediate, Verified 12/26/22 17:27) DIARRHEA ciprofloxacin [From CIPRO] Allergy (Unknown, Verified 12/26/22 17:27) ANAPHYLAXIS codeine [CODEINE] Allergy (Unknown, Verified 12/26/22 17:27) TINNITIS guaifenesin Allergy (Unknown, Verified 12/26/22 17:27) Unknown levofloxacin [From Levaquin] Allergy (Unknown, Verified 12/26/22 17:27) Unknown pregabalin Allergy (Unknown, Verified 12/26/22 17:27) Unknown HPI HPI Comments History of Present Illness Details Xi is a pleasant female. She is a patient of Dr. Wang. She is seen for the following urologic conditions - nephrolithiasis - recurrent UTI repeat imaging here for drain removal Nephrolithiasis Admission to hospital 03/31 Intervention - 03/31 right-sided ureteroscopy laser lithotripsy and stent placement - 06/28 completion right ureteroscopy with left ureteroscopy Stone composition - 03/31 Carbonate Apatite (Dahllite) 100% - 06/28 calcium oxalate Imaging - 2/22 CT scan 4 cm right staghorn calculus, 6 mm left Therapeutic plan - suppression antibiotics for recurrent UTI [facility] Medical History (Updated 12/22/22 @ 16:12 by Ap Deal MD) Frequency of urination Vaginal burning Vaginal itching PMB (postmenopausal bleeding) Cirrhosis of liver Does mobilize using walker PONV (postoperative nausea and vomiting) Left foot drop Fatty liver Fibromyalgia Neuropathy RBBB Cholelithiasis Staghorn calculus Renal calculus, bilateral Renal calyceal dilation determined by ultrasound UTI (urinary tract infection) Diabetes mellitus, type II Ganglion cyst Plantar fasciitis Anxiety OA (osteoarthritis) Obstructive airway disease Hypercholesterolemia Low back pain Sciatica Hypothyroidism HTN (hypertension) Primary osteoarthritis of right knee Retained ureteral stent Renal stones Staghorn calculus Perirectal abscess Surgical History Status post cystoscopy with ureteral stent placement History of lumbar discectomy History of lumpectomy of both breasts History of cystoscopy History of lithotripsy Hx of colonoscopy History of surgery Family History Father Alcohol dependence Mother CHF (congestive heart failure) Cancer of breast Mother No problems noted. Other Alcoholic cirrhosis Social History Household Members: Spouse Housing: House Do you presently have visiting nurse or other home services: No Alcohol intake: never Comment: refuses bed alarm. Walks w/ walker w/ supervision from . Patient Tobacco Use Status: Former Tobacco user Quit Date: 1986 Tobacco use type: Cigarette Years Smoked: 27 Second Hand Smoke Exposure: No Advance Directives Date on File: 04/06/21 service: No Current occupational status: disabled Review of Systems Const Denies chills and Denies fever(s) Card Reports no additional complaints and Denies syncope Resp Denies cough GI Denies abdominal pain and Denies heartburn Reports as per HPI and Denies change in libido Neuro Denies syncope Psych Denies change in libido Endo Denies change in libido Physical Exam Const General: cooperative, healthy appearing, comfortable and no acute distress Orientation/consciousness: patient oriented x3 HEENT Face and sinus: Yes normal facial exam Mouth: moist mucous membranes Neck Neck: Yes normal visual inspection, Yes full ROM and Yes trachea midline Chest Chest palpation & inspection: normal inspection of the chest Resp Effort & Inspection: normal respiratory effort, able to speak in complete sentences and no respiratory distress GI Inspection: Yes normal to inspection Back/Spine/Pelvis Cervical Spine: normal cervical lordosis Thoracic/Lumbar Spine: thoracic and lumbar spine normal to inspection Skin General skin exam: no rashes or lesions noted Neuro General: patient oriented x3, gait normal, tone normal and moves all extremities Extrem General: Yes normal to inspection and Yes capillary refill normal Assessment & Plan Assessment & Plan (1) Abscess, retroperitoneal: Code(s): K68.19 - Other retroperitoneal abscess Plan Six week follow-up imaging Orders: Orders CT abdomen wo IV con 6 Weeks R18.8 - Other ascites Patient Instructions: Imaging studies, laboratory and physical exam results were discussed and reviewed in detail. No major barriers to patient understanding were identified. An opportunity to ask questions regarding the treatment plan was provided. All questions were answered. The patient expressed understanding and agreement with the above treatment plan. The patient is aware they should contact our office by phone for worsening of their current condition or the appearance of new urologic symptoms. Compliance is encouraged with any medications and followup testing that is ordered. It is a privilege to participate in the urologic care of your patient. If you have any questions or concerns regarding treatment for the above conditions, or other urologic issues, please do not hesitate to contact me. The office telephone contact is [phone]. This note is constructed using voice recognition software. While every effort has been made to ensure accuracy supervisor type photography errors may have been included. Yours sincerely, Dr Jose Ries MD, [facility] - Urology Providers of Expert, Compassionate Care for the Genitourinary System Coding Level of Care Code Est Pt Level 3 (53880) Diagnoses Abscess, retroperitoneal K68.19
== END 2021-12-24 14:15 | disposition home or self-care (01) ==
LOC: HO.HUSH 13:02
PROVIDERS: PCP Internal Medicine; Visit Provider Urology
DX: K68.19 Other retroperitoneal abscess (principal)
CPT/HCPCS: 99213; 99499

== ENCOUNTER → 2021-12-24 13:02 | Outpatient (BNVA) | payer MEDICARE, SELFPAY | PROVIDERS: PCP Internal Medicine; Visit Provider Urology | DX: K68.19 Other retroperitoneal abscess (principal) | CPT/HCPCS: 99212 ==

== ENCOUNTER 2022-02-02 10:36 | Outpatient (REF) | payer MEDICARE, SELFPAY ==
--- NOTE | ~2022-02-02 | CT_ITS ---
EXAMINATION: CT ABDOMEN AND PELVIS WITHOUT CONTRAST CLINICAL INFORMATION: Ascites COMPARISON: CT urogram 12/10/2021. TECHNIQUE: Multidetector volumetric imaging was performed from the superior aspect of the liver through the pubic symphysis. Sagittal and coronal reformatted images were obtained on the technologist's workstation. This CT examination was performed using dose optimization techniques as appropriate, variously including the following: *Automated exposure control *Adjustment of mA and/or kV according to patient size (this includes techniques or standardized protocols for targeted exams where dose is matched to indication/reason for exam; i.e. extremities or head) *Use of iterative reconstruction technique DLP: 956 mGy-cm FINDINGS: LUNG BASES: The lung bases are clear. The heart size is normal. There is a known lipoma interposed between the right latissimus dorsi and so does enter muscle on axial image 08/09. LIVER, GALLBLADDER, AND BILIARY TREE: There is liver is normal size with slightly lobulated contour and normal density. No focal lesion or intrahepatic ductal dilatation seen. There are large radiopaque gallstones measuring 2.3 and 2.1 cm. The gallbladder is contracted. PANCREAS: Unremarkable. SPLEEN: Unremarkable. ADRENAL GLANDS: The left adrenal gland is slightly prominent. KIDNEYS AND URETERS: The right kidney measures 11.5 cm in length. There are multiple radiopaque calculi visualized in the upper, mid and lower pole. The largest calculi lower pole measures 1.3 cm and midpole measures 1.3 cm. No caliectasis or hydronephrosis seen. There is an exophytic 2 cm cyst upper pole right kidney. There is a right perinephric loculated fluid collection inferior to the inferior pole measuring 2.5 x 1.6 cm and has a punctate calcification. Previously it measured approximately 3.6 cm. The right perinephric drainage catheter has been removed. Also visualized is perinephric stranding. There is a slightly enlarged right psoas muscle, new since previous study with likely hematoma measuring -0.11 cm. It measures approximately 4.6 x 3.2 cm. The left kidney measures 10.7 cm. There is a normal size and cortical thickness. There are 3 mm and 5 radiopaque calculi in the interpolar region. No caliectasis or hydronephrosis seen. There is no perinephric stranding. BLADDER: Unremarkable. GASTROINTESTINAL TRACT: There is scattered stool, gas and diverticuli seen throughout the colon without distention. There is mild fat stranding and minimal mural thickening adjacent to sigmoid colon likely early diverticulitis. The small bowel loops are normal caliber. No free fluid seen. ABDOMINAL WALL: There is small umbilical hernia containing fat. LYMPH NODES: No abnormal-sized abdominopelvic lymphadenopathy. VASCULAR: Unremarkable. PELVIC VISCERA: There is mild fat stranding in the pelvis adjacent to sigmoid colon. No free fluid seen. OSSEOUS STRUCTURES: No aggressive lytic or sclerotic process seen. There is degenerative disc changes and vacuum phenomenon L5-S1, L2-L3 and L1-L2 disc levels. CT/CT abdomen pelvis wo IV con IMPRESSION: 1. Bilateral nephrolithiasis without caliectasis or hydronephrosis. There is a right perinephric fluid collection which has decreased in size. The right perinephric drainage catheter has been removed. 2. There is a right psoas muscle hematoma, new since previous study 12/10/2021. 3. Colonic diverticulosis with mild fat stranding adjacent to sigmoid colon suggestive of early diverticulitis. 4. Cholelithiasis without wall thickening. 5. Small umbilical hernia containing fat. Fleischner guidelines were followed.
== END 2022-02-02 10:37 | disposition home or self-care (01) ==
LOC: HO.CT 10:36
PROVIDERS: Visit Provider Urology
DX: R18.8 Other ascites (principal)
CPT/HCPCS: 74176

== ENCOUNTER 2022-02-04 09:02 | Outpatient (REF) | payer MEDICARE, SELFPAY ==
[2022-02-04 17:36] LABS: Urine Cytology See Pathology rpt
== END 2022-02-04 09:03 | disposition home or self-care (01) ==
LOC: HO.LAB 09:02
PROVIDERS: PCP Internal Medicine; Visit Provider Urology
DX: N20.0 Calculus of kidney (principal); K68.19 Other retroperitoneal abscess
CPT/HCPCS: 87086; 88112; 99212

== ENCOUNTER 2022-02-17 11:56 | Outpatient (REF) | payer MEDICARE, SELFPAY ==
[2022-02-17 14:27] LABS: Appearance Urine Cloudy; Color Urine Yellow; Glucose Urine UA Negative (Negative); Leukocyte Esterase Urine Large (3+) (Negative); Nitrite Urine Negative (Negative); UMIC TRIGGER UA YES; Urine Blood Moderate (2+) (Negative); Urine Ketones Negative (Negative); Urine Protein Trace mg/dL (Neg-Trace)
[2022-02-17 14:32] LABS: Bacteria Urine 4+ (None Seen); Hyaline Casts Urine 0-2 /LPF (0-2); Squamous Epithelial Cell Urine 0-2 /HPF (0-2); WBC Urine >50 /HPF (0-5)
== END 2022-02-17 11:57 | disposition home or self-care (01) ==
LOC: HO.HMGCLDS 11:56
PROVIDERS: PCP Internal Medicine; Visit Provider Urology
DX: N39.0 Urinary tract infection, site not specified (principal)
CPT/HCPCS: 81001; 87086

== ENCOUNTER 2022-07-12 01:23 | Emergency (ER) | payer MEDICARE, SELFPAY ==
[2022-07-12 01:54] VITALS: BP 133/47; PULSE 84; RESP 18; TEMP 36.4; O2SAT 97; BMI 35.4
[2022-07-12 06:32] VITALS: BP 135/77; PULSE 78; RESP 18; TEMP 36.9; O2SAT 99
--- NOTE | 2022-07-12 06:54 | ED_ITS ---
HPI - General Adult General Chief complaint: Extremity Injury, Lower Stated complaint: toe inj Time Seen by Provider: 07/12/22 05:36 Source: patient and family Mode of arrival: ambulatory Limitations: no limitations History of Present Illness HPI narrative: A 77-year-old female walked in for evaluation of left big toenail injury, patient stopped her left big toe in the wall causing injury to the toenail and bleeding. Patient is not taking AC. Related Data Home Medications Medication Instructions Recorded Confirmed levothyroxine 112 mcg tablet 112 mcg PO DAILY 08/28/20 02/04/22 atorvastatin 10 mg tablet 1 tab PO DAILY@1700 04/05/21 02/04/22 metformin 500 mg tablet,extended 1 tab PO DAILY@1700 04/06/21 02/04/22 release 24 hr pyridoxine (vitamin B6) 100 mg 1 tab PO DAILY 04/06/21 02/04/22 tablet omeprazole 20 mg capsule,delayed 20 mg PO DAILY@0630 04/29/21 02/04/22 release cholecalciferol (vitamin D3) 50 50 mcg PO DAILY 12/08/21 02/04/22 mcg (2,000 unit) capsule (Vitamin D3) nitrofurantoin macrocrystal 100 mg 100 mg PO DAILY 12/21/21 02/04/22 capsule Previous Rx's Medication Instructions Recorded cefuroxime axetil 500 mg tablet 500 mg PO BID 10 days #20 tabs 12/16/21 furosemide 40 mg tablet 40 mg PO DAILY #30 tabs 12/16/21 lidocaine 4 % topical patch 1 patch transdermal DAILY #30 ea 12/16/21 (Lidocaine Pain Relief) oxycodone 5 mg tablet 5 mg PO BID PRN pain #10 tabs 12/16/21 nitrofurantoin 100 mg PO BID UTI 7 days #14 caps 02/19/22 monohydrate/macrocrystals 100 mg capsule (Macrobid) cefuroxime axetil 500 mg tablet 500 mg PO BID 5 days #14 tabs 02/22/22 nitrofurantoin macrocrystal 100 mg 100 mg PO DAILY 90 days #90 caps 04/19/22 capsule Allergies Allergy/AdvReac Type Severity Reaction Status Date / Time chlorpheniramine Allergy Severe HALLUCINATI Verified 02/22/22 12:11 [From TUSSIONEX] ONS escitalopram [ESCITALOPRAM] Allergy Severe DISSOCIATIVE Verified 02/22/22 12:11 REACTION fluoxetine [FLUOXETINE] Allergy Severe DISSOCIATIVE Verified 02/22/22 12:11 REACTION hydrocodone [From TUSSIONEX] Allergy Severe HALLUCINATI Verified 02/22/22 12:11 ONS ibuprofen [IBUPROFEN] Allergy Severe THROAT Verified 02/22/22 12:11 SWELLING Sulfa (Sulfonamide Allergy Severe DYSPNEA Verified 02/22/22 12:11 Antibiotics) [SULFA (SULFONAMIDE ANTIBIOTICS)] clarithromycin [From BIAXIN] Allergy Intermediate ABD.PAIN Verified 02/22/22 12:11 duloxetine [DULOXETINE] Allergy Intermediate FACIAL Verified 02/22/22 12:11 NUMBNESS erythromycin base Allergy Intermediate RASH Verified 02/22/22 12:11 [ERYTHROMYCIN BASE] Penicillins [PENICILLINS] Allergy Intermediate RASH Verified 02/22/22 12:11 tetracycline [TETRACYCLINE] Allergy Intermediate DIARRHEA Verified 02/22/22 12:11 ciprofloxacin [From CIPRO] Allergy Unknown ANAPHYLAXIS Verified 02/22/22 12:11 codeine [CODEINE] Allergy Unknown TINNITIS Verified 02/22/22 12:11 guaifenesin Allergy Unknown Unknown Verified 02/22/22 12:11 levofloxacin [From Levaquin] Allergy Unknown Unknown Verified 02/22/22 12:11 pregabalin Allergy Unknown Unknown Verified 02/22/22 12:11 Review of Systems Review of Systems: All other systems are reviewed and are negative Constitutional: Reports as per HPI and Reports no additional constitutional complaints Eyes: Reports as per HPI and Reports no additional eye complaints Reports system reviewed and no additional complaints, except as documented Cardiovascular: Reports as per HPI and Reports no additional cardiovascular complaints Respiratory: Reports as per HPI and Reports no additional respiratory complaints Gastrointestinal: Reports as per HPI and Reports no additional gastrointestinal complaints Genitourinary: Reports no additional female genitourinary complaints Musculoskeletal: Reports no additional musculoskeletal complaints Skin/Breast: Reports system reviewed and no additional complaints, except as docu Psychiatric: Reports no additional psychiatric complaints Endocrine: Reports no additional endocrine complaints Hematologic/Lymphatic: Reports no additional hematologic/lymphatic complaints Allergic/Immunologic: Reports no additional allergic/immunologic complaints Reports system reviewed and no additional complaints, except as documented and Reports Abnormal speech present PMFSH Past Medical History Medical History Anxiety Cholelithiasis Cirrhosis of liver Diabetes mellitus, type II Does mobilize using walker Fatty liver Fibromyalgia Ganglion cyst HTN (hypertension) Hypercholesterolemia Hypothyroidism Left foot drop Low back pain Neuropathy OA (osteoarthritis) Obstructive airway disease Perirectal abscess Plantar fasciitis PONV (postoperative nausea and vomiting) Primary osteoarthritis of right knee RBBB Renal calculus, bilateral Renal calyceal dilation determined by ultrasound Renal stones Retained ureteral stent Sciatica Staghorn calculus Staghorn calculus UTI (urinary tract infection) Surgical History History of cystoscopy History of lithotripsy History of lumbar discectomy History of lumpectomy of both breasts History of surgery Hx of colonoscopy Status post cystoscopy with ureteral stent placement Family History Family History Father Alcohol dependence Mother CHF (congestive heart failure) Other Alcoholic cirrhosis Social History Social History Household Members: Spouse Housing: House Do you presently have visiting nurse or other home services: No Alcohol intake: never Patient Tobacco Use Status: Former Tobacco user Quit Date: 1986 Tobacco use type: Cigarette Years Smoked: 27 Smoked in Last 30 Days: No Second Hand Smoke Exposure: No Use of substances other than those prescribed or required for medical reasons: No Advance Directives: Yes Advance Directives on File: Yes Advance Directives Date on File: 04/06/21 service: No Current occupational status: disabled Physical Exam ED Vital Signs: Vital Signs - 24 hr 07/12/22 01:54 07/12/22 06:32 Temperature 97.6 F 98.4 F Pulse Rate 84 78 Respiratory Rate 18 18 Blood Pressure 133/47 L 135/77 Pulse Oximetry 97 99 Oxygen Delivery Method Room Air Room Air BMI result Body Mass Index 35.4 Vital signs have been reviewed as appeared to be correct. Blood pressure normal. Heart rate normal. Respiration rate normal. Temperature normal. Oxygen saturation normal. Appearance: Alert. Oriented X3. No acute distress. Head: Normal external exam. Normocephalic. Atraumatic. No [place] signs noted. No raccoon eyes noted Eyes: PERRLA. EOMI. Conjunctiva and sclera normal. Eyelids normal. ENT: TM's Normal. Pharynx normal. Uvula midline. Moist mucous membranes. No t rismus noted. No drooling noted. No muffled voice noted. Neck: Normal inspection. Neck supple. FROM. No adenopathy. Thyroid Normal. No meningeal signs. No neck mass noted. CVS: Normal heart rate and rhythm. Heart sound normal. No murmurs noted. Pulses normal throughout. Respiratory: No respiratory distress. Painless inspiration. Breath sounds normal. No wheezes/rales/rhonchi noted. Chest nontender. No accessory muscle usage noted or decreased air movement noted. Abdomen: Soft and nontender. Bowel sounds normal in all 4 quadrants. No distention noted. No organomegaly noted. No visible injury noted. Back: No CVA tenderness. Full range of motion noted. Skin: Skin warm and dry. Normal skin color. Normal skin turgor. No rashes/lesions/lacerations noted. Extremities: Left great toe exam: Nail is partially of altered with a mild bleeding that is controlled with pressure, neurovascularly intact. Neuro: Oriented X 3. Cranial nerve exam: II-XII are grossly intact No motor deficit. No sensory deficit. Reflexes normal. Course Course Course Narrative: Left great toenail injury, bleeding is controlled with dressing, patient was instructed to return in 2 days for discontinue the dressing. Medical Decision Making Differential Diagnosis Differential Diagnoses: The differential diagnosis associated with the presentation includes Great toenail injury. Discharge Plan Discharge Clinical Impression: Injury of left great toe Patient Disposition: Home, Self-Care Instructions: Nail Avulsion (ED) Additional Instructions: Return to the emergency department in 2 days to take the dressing off. Prescriptions: No Action nitrofurantoin monohyd/m-cryst [Macrobid] 100 mg capsule 100 mg PO BID 7 Days Qty: 14 0RF Rx Instructions: must administer with a meal/food nitrofurantoin macrocrystal 100 mg capsule 100 mg PO DAILY 90 Days Qty: 90 1RF Rx Instructions: Daily for prophylaxis atorvastatin 10 mg tablet 1 tab PO DAILY@1700 pyridoxine (vitamin B6) 100 mg tablet 1 tab PO DAILY metformin 500 mg tablet extended release 24 hr 1 tab PO DAILY@1700 cholecalciferol (vitamin D3) [Vitamin D3] 50 mcg (2,000 unit) Capsule 50 mcg PO DAILY lidocaine [Lidocaine Pain Relief] 4 % Adhesive Patch,Medicated 1 patch transdermal DAILY Qty: 30 0RF Protocol: Apply to: Apply to: affected area furosemide 40 mg tablet 40 mg PO DAILY Qty: 30 0RF oxycodone 5 mg tablet 5 mg PO BID PRN (Reason: pain) Qty: 10 0RF Rx Instructions: Partial Fill upon patient request. cefuroxime axetil 500 mg tablet 500 mg PO BID 10 Days Qty: 20 0RF cefuroxime axetil 500 mg tablet 500 mg PO BID 5 Days Qty: 14 0RF levothyroxine 112 mcg tablet 112 mcg PO DAILY nitrofurantoin macrocrystal 100 mg capsule 100 mg PO DAILY omeprazole 20 mg capsule,delayed release(DR/EC) 20 mg PO DAILY@0630 Referrals: Preston Wang DO [Primary Care Provider] - Interventions: ED Discharge Assessment Last Done: 07/12/22 06:41
--- NOTE | 2022-07-12 07:00 | PC.NURSE ---
patient was stable and cleared to go home paperwork was explained and patient verbalize full understanding patient will be released to go home
== END 2022-07-12 06:48 | disposition home or self-care (01) ==
PROVIDERS: Emergency Provider Emergency Medicine; PCP Internal Medicine
DX: S99.922A Unspecified injury of left foot, initial encounter (principal); W22.09XA Striking against other stationary object, initial encounter; Y93.89 Activity, other specified; Y92.019 Unspecified place in single-family (private) house as the place of occurrence of the external cause; Y99.9 Unspecified external cause status
CPT/HCPCS: 99284

== ENCOUNTER 2022-07-12 14:20 | Emergency (ER) | payer MEDICARE, SELFPAY ==
[2022-07-12 15:50] VITALS: BP 117/37; PULSE 78; RESP 16; TEMP 35.7; O2SAT 98; BMI 35.2
--- NOTE | 2022-07-12 15:57 | ED_ITS ---
HPI - Extremity Problem General Chief complaint: Wound/Laceration Stated complaint: wound bleeding just discharged Time Seen by Provider: 07/12/22 17:23 History of Present Illness HPI Narrative: Patient Burak planes of bleeding through the dressing, she was here last night for an avulsion of skin at the base of her nail which has been bleeding through the bandage this morning, otherwise there is no pain, no other complaint Related Data Home Medications Medication Instructions Recorded Confirmed levothyroxine 112 mcg tablet 112 mcg PO DAILY 08/28/20 02/04/22 atorvastatin 10 mg tablet 1 tab PO DAILY@1700 04/05/21 02/04/22 metformin 500 mg tablet,extended 1 tab PO DAILY@1700 04/06/21 02/04/22 release 24 hr pyridoxine (vitamin B6) 100 mg 1 tab PO DAILY 04/06/21 02/04/22 tablet omeprazole 20 mg capsule,delayed 20 mg PO DAILY@0630 04/29/21 02/04/22 release cholecalciferol (vitamin D3) 50 50 mcg PO DAILY 12/08/21 02/04/22 mcg (2,000 unit) capsule (Vitamin D3) nitrofurantoin macrocrystal 100 mg 100 mg PO DAILY 12/21/21 02/04/22 capsule Previous Rx's Medication Instructions Recorded cefuroxime axetil 500 mg tablet 500 mg PO BID 10 days #20 tabs 12/16/21 furosemide 40 mg tablet 40 mg PO DAILY #30 tabs 12/16/21 lidocaine 4 % topical patch 1 patch transdermal DAILY #30 ea 12/16/21 (Lidocaine Pain Relief) oxycodone 5 mg tablet 5 mg PO BID PRN pain #10 tabs 12/16/21 nitrofurantoin 100 mg PO BID UTI 7 days #14 caps 02/19/22 monohydrate/macrocrystals 100 mg capsule (Macrobid) cefuroxime axetil 500 mg tablet 500 mg PO BID 5 days #14 tabs 02/22/22 nitrofurantoin macrocrystal 100 mg 100 mg PO DAILY 90 days #90 caps 04/19/22 capsule cephalexin 500 mg capsule 500 mg PO TID #21 caps 07/14/22 oxycodone 5 mg tablet 5 mg PO Q6H PRN severe pain (scale 07/14/22 score 7-10) #8 tabs Allergies Allergy/AdvReac Type Severity Reaction Status Date / Time chlorpheniramine Allergy Severe HALLUCINATI Verified 02/22/22 12:11 [From TUSSIONEX] ONS escitalopram [ESCITALOPRAM] Allergy Severe DISSOCIATIVE Verified 02/22/22 12:11 REACTION fluoxetine [FLUOXETINE] Allergy Severe DISSOCIATIVE Verified 02/22/22 12:11 REACTION hydrocodone [From TUSSIONEX] Allergy Severe HALLUCINATI Verified 02/22/22 12:11 ONS ibuprofen [IBUPROFEN] Allergy Severe THROAT Verified 02/22/22 12:11 SWELLING Sulfa (Sulfonamide Allergy Severe DYSPNEA Verified 02/22/22 12:11 Antibiotics) [SULFA (SULFONAMIDE ANTIBIOTICS)] clarithromycin [From BIAXIN] Allergy Intermediate ABD.PAIN Verified 02/22/22 12:11 duloxetine [DULOXETINE] Allergy Intermediate FACIAL Verified 02/22/22 12:11 NUMBNESS erythromycin base Allergy Intermediate RASH Verified 02/22/22 12:11 [ERYTHROMYCIN BASE] Penicillins [PENICILLINS] Allergy Intermediate RASH Verified 02/22/22 12:11 tetracycline [TETRACYCLINE] Allergy Intermediate DIARRHEA Verified 02/22/22 12: 11 ciprofloxacin [From CIPRO] Allergy Unknown ANAPHYLAXIS Verified 02/22/22 12:11 codeine [CODEINE] Allergy Unknown TINNITIS Verified 02/22/22 12:11 guaifenesin Allergy Unknown Unknown Verified 02/22/22 12:11 levofloxacin [From Levaquin] Allergy Unknown Unknown Verified 02/22/22 12:11 pregabalin Allergy Unknown Unknown Verified 02/22/22 12:11 [facility] Past Medical History Source: nursing notes reviewed Medical History Anxiety Cholelithiasis Cirrhosis of liver Diabetes mellitus, type II Does mobilize using walker Fatty liver Fibromyalgia Ganglion cyst HTN (hypertension) Hypercholesterolemia Hypothyroidism Left foot drop Low back pain Neuropathy OA (osteoarthritis) Obstructive airway disease Perirectal abscess Plantar fasciitis PONV (postoperative nausea and vomiting) Primary osteoarthritis of right knee RBBB Renal calculus, bilateral Renal calyceal dilation determined by ultrasound Renal stones Retained ureteral stent Sciatica Staghorn calculus Staghorn calculus UTI (urinary tract infection) Surgical History History of cystoscopy History of lithotripsy History of lumbar discectomy History of lumpectomy of both breasts History of surgery Hx of colonoscopy Status post cystoscopy with ureteral stent placement Family History Family History Father Alcohol dependence Mother CHF (congestive heart failure) Other Alcoholic cirrhosis Social History Social History Household Members: Spouse Housing: House Do you presently have visiting nurse or other home services: No Alcohol intake: never Patient Tobacco Use Status: Former Tobacco user Quit Date: 1986 Tobacco use type: Cigarette Years Smoked: 27 Smoked in Last 30 Days: No Second Hand Smoke Exposure: No Use of substances other than those prescribed or required for medical reasons: No Advance Directives: Yes Advance Directives on File: Yes Advance Directives Date on File: 04/06/21 service: No Current occupational status: disabled Physical Exam Vital Signs: Vital Signs: Last Vital Signs Temp 96.3 F L 07/12/22 15:50 Pulse 78 07/12/22 15:50 Resp 16 07/12/22 15:50 BP 117/37 L 07/12/22 15:50 Pulse Ox 98 07/12/22 15:50 O2 Del Method Room Air 07/12/22 15:50 BMI result Body Mass Index 35.2 General appearance is no distress Exam of the left big toe the dressing is removed, at the base of the big toe there is avulsed skin that is oozing blood, it is not spout Ng, this was cleansed with normal saline, patient can flex and bend toe fully has no significant tenderness , no evidence of fracture, no sign of surrounding redness erythema or swelling no sign of infection Course Course Course Narrative: Patient brought in for bleeding through bandage applied last night last night she was seen for a skin avulsion at the base of her great toenail and a dressing was applied and has blood throat, no other complaint A Surgicel dressing was applied and patient was observed for half an hour with no soaking through the dressing, and remained comfortable and was discharged Discharge Plan Discharge Clinical Impression: Avulsion of skin Patient Disposition: Home, Self-Care Additional Instructions: Bleeding was controlled with pressure bandage and clotting material Tania bandage in place until tomorrow and then you can gently remove it but do not remove the bottom layer which has the clotting material which sticks to the wound After that change dressing every day Return for pain swelling redness any sign of infection Follow with your doctor or return to the ER for wound check in 2-3 days Prescriptions: No Action nitrofurantoin monohyd/m-cryst [Macrobid] 100 mg capsule 100 mg PO BID 7 Days Qty: 14 0RF Rx Instructions: must administer with a meal/food nitrofurantoin macrocrystal 100 mg capsule 100 mg PO DAILY 90 Days Qty: 90 1RF Rx Instructions: Daily for prophylaxis atorvastatin 10 mg tablet 1 tab PO DAILY@1700 pyridoxine (vitamin B6) 100 mg tablet 1 tab PO DAILY metformin 500 mg tablet extended release 24 hr 1 tab PO DAILY@1700 cholecalciferol (vitamin D3) [Vitamin D3] 50 mcg (2,000 unit) Capsule 50 mcg PO DAILY lidocaine [Lidocaine Pain Relief] 4 % Adhesive Patch,Medicated 1 patch transdermal DAILY Qty: 30 0RF Protocol: Apply to: Apply to: affected area furosemide 40 mg tablet 40 mg PO DAILY Qty: 30 0RF oxycodone 5 mg tablet 5 mg PO BID PRN (Reason: pain) Qty: 10 0RF Rx Instructions: Partial Fill upon patient request. cefuroxime axetil 500 mg tablet 500 mg PO BID 10 Days Qty: 20 0RF cephalexin 500 mg capsule 500 mg PO TID Qty: 21 0RF oxycodone 5 mg tablet 5 mg PO Q6H PRN (Reason: severe pain (scale score 7-10)) Qty: 8 0RF Rx Instructions: Partial Fill upon patient request. cefuroxime axetil 500 mg tablet 500 mg PO BID 5 Days Qty: 14 0RF levothyroxine 112 mcg tablet 112 mcg PO DAILY nitrofurantoin macrocrystal 100 mg capsule 100 mg PO DAILY omeprazole 20 mg capsule,delayed release(DR/EC) 20 mg PO DAILY@0630 Interventions: ED Discharge Assessment Last Done: 07/12/22 17:15 Discharge Date/Time: 07/12/22 17:40
== END 2022-07-12 17:40 | disposition home or self-care (01) ==
LOC: HO.ED 17:33
PROVIDERS: Emergency Provider Emergency Medicine; PCP Internal Medicine
DX: S91.102D Unspecified open wound of left great toe without damage to nail, subsequent encounter (principal); W22.09XD Striking against other stationary object, subsequent encounter
CPT/HCPCS: 99282; 99284

== ENCOUNTER 2022-07-14 13:17 | Emergency (ER) | payer MEDICARE, SELFPAY ==
--- NOTE | ~2022-07-14 | XR_ITS ---
EXAMINATION: XR TOES, LEFT CLINICAL INFORMATION: First toe injury. COMPARISON: None available. TECHNIQUE: 3 views of the left toes were obtained. FINDINGS: Horizontally oriented fracture along the base of the distal first phalanx with mild distraction and dorsal displacement of the distal fracture fragment. Surrounding soft tissue thickening. No unexpected radiopaque foreign bodies. No additional fractures or malalignment. XR/XR toe LT min 2V IMPRESSION: Fracture of the distal first phalanx as above.
[2022-07-14 13:37] VITALS: BP 116/44; PULSE 72; RESP 18; TEMP 36.2; O2SAT 97; BMI 35.2
--- NOTE | 2022-07-14 13:50 | ED.GENADULT ---
HPI - General Adult General Chief complaint: Extremity Problem Stated complaint: L toe inj wants it rechecked Time Seen by Provider: 07/14/22 13:47 Source: patient, RN notes reviewed and old records reviewed Mode of arrival: wheelchair Limitations: no limitations History of Present Illness HPI narrative: A 77-year-old female presents for evaluation of a wound check on her left great toe. Patient was seen here twice on 07/12/2022 She stubbed her toe in the nursing home assistant that day. She had the wound dressed and she returned later in the afternoon due to excessive bleeding The patient had a Surgicel dressing and pressure dressing to stop the bleeding was told to return for wound check in a few days Patient states that the toe is ?very sore. ? She did not have any imaging She has not had any further bleeding since her discharge Related Data Home Medications Medication Instructions Recorded Confirmed levothyroxine 112 mcg tablet 112 mcg PO DAILY 08/28/20 02/04/22 atorvastatin 10 mg tablet 1 tab PO DAILY@1700 04/05/21 02/04/22 metformin 500 mg tablet,extended 1 tab PO DAILY@1700 04/06/21 02/04/22 release 24 hr pyridoxine (vitamin B6) 100 mg 1 tab PO DAILY 04/06/21 02/04/22 tablet omeprazole 20 mg capsule,delayed 20 mg PO DAILY@0630 04/29/21 02/04/22 release cholecalciferol (vitamin D3) 50 50 mcg PO DAILY 12/08/21 02/04/22 mcg (2,000 unit) capsule (Vitamin D3) nitrofurantoin macrocrystal 100 mg 100 mg PO DAILY 12/21/21 02/04/22 capsule Previous Rx's Medication Instructions Recorded cefuroxime axetil 500 mg tablet 500 mg PO BID 10 days #20 tabs 12/16/21 furosemide 40 mg tablet 40 mg PO DAILY #30 tabs 12/16/21 lidocaine 4 % topical patch 1 patch transdermal DAILY #30 ea 12/16/21 (Lidocaine Pain Relief) oxycodone 5 mg tablet 5 mg PO BID PRN pain #10 tabs 12/16/21 nitrofurantoin 100 mg PO BID UTI 7 days #14 caps 02/19/22 monohydrate/macrocrystals 100 mg capsule (Macrobid) cefuroxime axetil 500 mg tablet 500 mg PO BID 5 days #14 tabs 02/22/22 nitrofurantoin macrocrystal 100 mg 100 mg PO DAILY 90 days #90 caps 04/19/22 capsule cephalexin 500 mg capsule 500 mg PO TID #21 caps 07/14/22 oxycodone 5 mg tablet 5 mg PO Q6H PRN severe pain (scale 07/14/22 score 7-10) #8 tabs Allergies Allergy/AdvReac Type Severity Reaction Status Date / Time chlorpheniramine Allergy Severe HALLUCINATI Verified 02/22/22 12:11 [From TUSSIONEX] ONS escitalopram [ESCITALOPRAM] Allergy Severe DISSOCIATIVE Verified 02/22/22 12:11 REACTION fluoxetine [FLUOXETINE] Allergy Severe DISSOCIATIVE Verified 02/22/22 12:11 REACTION hydrocodone [From TUSSIONEX] Allergy Severe HALLUCINATI Verified 02/22/22 12:11 ONS ibuprofen [IBUPROFEN] Allergy Severe THROAT Verified 02/22/22 12:11 SWELLING Sulfa (Sulfonamide Allergy Severe DYSPNEA Verified 02/22/22 12:11 Antibiotics) [SULFA (SULFONAMIDE ANTIBIOTICS)] clarithromycin [From BIAXIN] Allergy Intermediate ABD.PAIN Verified 02/22/22 12:11 duloxetine [DULOXETINE] Allergy Intermediate FACIAL Verified 02/22/22 12:11 NUMBNESS erythromycin base Allergy Intermediate RASH Verified 02/22/22 12:11 [ERYTHROMYCIN BASE] Penicillins [PENICILLINS] Allergy Intermediate RASH Verified 02/22/22 12:11 tetracycline [TETRACYCLINE] Allergy Intermediate DIARRHEA Verified 02/22/22 12:11 ciprofloxacin [From CIPRO] Allergy Unknown ANAPHYLAXIS Verified 02/22/22 12:11 codeine [CODEINE] Allergy Unknown TINNITIS Verified 02/22/22 12:11 guaifenesin Allergy Unknown Unknown Verified 02/22/22 12:11 levofloxacin [From Levaquin] Allergy Unknown Unknown Verified 02/22/22 12:11 pregabalin Allergy Unknown Unknown Verified 02/22/22 12:11 Review of Systems Musculoskeletal: Musculoskeletal: Reports arthralgias and Reports joint swelling PMFSH Past Medical History Medical History Anxiety Cholelithiasis Cirrhosis of liver Diabetes mellitus, type II Does mobilize using walker Fatty liver Fibromyalgia Ganglion cyst HTN (hypertension) Hypercholesterolemia Hypothyroidism Left foot drop Low back pain Neuropathy OA (osteoarthritis) Obstructive airway disease Perirectal abscess Plantar fasciitis PONV (postoperative nausea and vomiting) Primary osteoarthritis of right knee RBBB Renal calculus, bilateral Renal calyceal dilation determined by ultrasound Renal stones Retained ureteral stent Sciatica Staghorn calculus Staghorn calculus UTI (urinary tract infection) Surgical History History of cystoscopy History of lithotripsy History of lumbar discectomy History of lumpectomy of both breasts History of surgery Hx of colonoscopy Status post cystoscopy with ureteral stent placement Family History Family History Father Alcohol dependence Mother CHF (congestive heart failure) Other Alcoholic cirrhosis Social History Social History Household Members: Spouse Housing: House Do you presently have visiting nurse or other home services: No Alcohol intake: never Patient Tobacco Use Status: Former Tobacco user Quit Date: 1986 Tobacco use type: Cigarette Years Smoked: 27 Smoked in Last 30 Days: No Second Hand Smoke Exposure: No Use of substances other than those prescribed or required for medical reasons: No Advance Directives: Yes Advance Directives on File: Yes Advance Directives Date on File: 04/06/21 service: No Current occupational status: disabled Physical Exam ED Vital Signs: Vital Signs - 24 hr 07/14/22 13:37 Temperature 97.2 F Pulse Rate 72 Respiratory Rate 18 Blood Pressure 116/44 L Pulse Oximetry 97 Oxygen Delivery Method Room Air BMI result Body Mass Index 35.2 Const General: healthy appearing, comfortable, no acute distress, alert and awake Nutritional Appearance: well nourished Orientation/consciousness: patient oriented x3 Resp Effort & Inspection: normal respiratory effort, able to speak in complete sentences and not labored Cardio Rate: regular rate Rhythm: regular rhythm Skin General skin exam: elasticity normal Neuro General: patient oriented x3 Cranial nerves: Yes Bilaterally intact EOM present Cognition (Neuro): normal cognition Extrem Other: I removed the patient's dressing to the left great toe. Patient has a healing avulsion to the dorsal surface of the left great toe by the toenail bed. There is minimal active bleeding after removing the dressing. Course Reevaluation(s) Reevaluation #1: I ordered x-ray imaging as this had not been done previously. The patient has an acute fracture. Given that is open fracture we will start the patient on cephalexin, she will be given a postop shoe and she be referred to Orthopedics for the fracture. Time: 14:21 Medical Decision Making Medical Decision Making [facility] Narrative: Patient returns for wound evaluation. There is minimal bleeding after removed the dressing, likely disruption of the scab that was forming. The patient did not have any imaging of the left great toe after injuring her foot. Feels appropriate to get an x-ray of the toe to rule out fracture Differential Diagnosis Avulsion injury Open fracture Toe fracture Wound check Independent Interpretation I performed an independent interpretation of an: Plain X-Ray (Acute fracture of the left 1st distal phalanx/toe.) Discharge Plan Discharge Clinical Impression: Fracture of great toe, left, open Patient Disposition: Home, Self-Care Instructions: Toe Fracture (ED) Additional Instructions: You have a fracture to your left great toe. Take cephalexin 3 times daily for the next 7 days This is to prevent infection Follow-up with orthopedics at the number provided Change the dressings once daily He may use ibuprofen and Tylenol for pain Prescriptions: New cephalexin 500 mg capsule 500 mg PO TID Qty: 21 0RF oxycodone 5 mg tablet 5 mg PO Q6H PRN (Reason: severe pain (scale score 7-10)) Qty: 8 0RF Rx Instructions: Partial Fill upon patient request. No Action nitrofurantoin monohyd/m-cryst [Macrobid] 100 mg capsule 100 mg PO BID 7 Days Qty: 14 0RF Rx Instructions: must administer with a meal/food nitrofurantoin macrocrystal 100 mg capsule 100 mg PO DAILY 90 Days Qty: 90 1RF Rx Instructions: Daily for prophylaxis atorvastatin 10 mg tablet 1 tab PO DAILY@1700 pyridoxine (vitamin B6) 100 mg tablet 1 tab PO DAILY metformin 500 mg tablet extended release 24 hr 1 tab PO DAILY@1700 cholecalciferol (vitamin D3) [Vitamin D3] 50 mcg (2,000 unit) Capsule 50 mcg PO DAILY lidocaine [Lidocaine Pain Relief] 4 % Adhesive Patch,Medicated 1 patch transdermal DAILY Qty: 30 0RF Protocol: Apply to: Apply to: affected area furosemide 40 mg tablet 40 mg PO DAILY Qty: 30 0RF oxycodone 5 mg tablet 5 mg PO BID PRN (Reason: pain) Qty: 10 0RF Rx Instructions: Partial Fill upon patient request. cefuroxime axetil 500 mg tablet 500 mg PO BID 10 Days Qty: 20 0RF cefuroxime axetil 500 mg tablet 500 mg PO BID 5 Days Qty: 14 0RF levothyroxine 112 mcg tablet 112 mcg PO DAILY nitrofurantoin macrocrystal 100 mg capsule 100 mg PO DAILY omeprazole 20 mg capsule,delayed release(DR/EC) 20 mg PO DAILY@0630 Referrals: See Zabala MD [Physician] - (left great toe open fracture)
--- NOTE | 2022-07-14 16:11 | PC.NURSE ---
POST OP SHOE APPLIED BY [facility]- WELL TOLERATED BY PT. PT PROVIDED WITH ADDITIONAL WOUND CARE SUPPLIES- PLAN FOR DISCHRGE PT AWARE AND AGREES WITH PLAN
== END 2022-07-14 16:17 | disposition home or self-care (01) ==
LOC: HO.ED 16:00
PROVIDERS: Emergency Provider Internal Medicine; PCP Internal Medicine
DX: S92.422B Displaced fracture of distal phalanx of left great toe, initial encounter for open fracture (principal); W22.8XXA Striking against or struck by other objects, initial encounter; Y93.9 Activity, unspecified; Y92.9 Unspecified place or not applicable; Y99.9 Unspecified external cause status
CPT/HCPCS: 73660; 99283; 99284

== ENCOUNTER → 2022-07-19 13:03 | Outpatient (BNVA) | payer MEDICARE, SELFPAY | PROVIDERS: PCP Internal Medicine; Visit Provider Physician Assistant | DX: S92.402A Displaced unspecified fracture of left great toe, initial encounter for closed fracture (principal) | CPT/HCPCS: 99202 ==

== ENCOUNTER → 2022-07-28 15:09 | Outpatient (BNVA) | payer MEDICARE, SELFPAY | PROVIDERS: PCP Internal Medicine; Visit Provider Physician Assistant | DX: S92.402D Displaced unspecified fracture of left great toe, subsequent encounter for fracture with routine healing (principal) | CPT/HCPCS: 99212 ==

== ENCOUNTER 2022-08-21 13:02 | Outpatient (REF) | payer MEDICARE, SELFPAY ==
--- NOTE | ~2022-08-21 | XR_ITS ---
EXAMINATION: XR ABDOMEN KUB CLINICAL INDICATION: Calculus of kidney COMPARISON: CT abdomen and pelvis 02/02/2022 TECHNIQUE: AP view of the abdomen. FINDINGS: There are peripherally calcified stones in the right upper quadrant likely representing known gallstones measuring 2.7 cm and 1.7 cm. There are clustered calcifications in the expected location of the right kidney, the largest measures 2.1 x 1.1 cm with additional calculi measuring 1.1 cm and 9 mm. The bowel gas pattern is nonobstructive. No definite left-sided calculi are visualized. Some phleboliths in the pelvis. XR/XR KUB IMPRESSION: 1. Multiple right-sided renal calculi. 2. Cholelithiasis. 3. No definite left-sided calculi visualized.
== END 2022-08-21 13:03 | disposition home or self-care (01) ==
LOC: HO.HMGCX 13:02
PROVIDERS: PCP Internal Medicine; Visit Provider Urology
DX: N20.0 Calculus of kidney (principal)
CPT/HCPCS: 74018

== ENCOUNTER 2022-09-14 09:21 | Outpatient (AMB) | payer MEDICARE, SELFPAY ==
--- NOTE | 2022-09-14 09:22 | A.OFFVIS_ITS ---
Intake Intake Visit Reasons: 6m/KUB(set) Intake Note: Patient is present for Telephone KUB Urology Med: Vitamin B6 Antibiotic Allergy: Levofloxacin, Cipro, Teteracycline, Penicillins, Erythromycin, Sulfa, Clarithromycin, Blood Thinner: None Pharmacy: [facility] Patient states that the past 3 weeks she has been spotting blood. Allergies chlorpheniramine [From TUSSIONEX] Allergy (Severe, Verified 09/14/22 09:25) HALLUCINATIONS escitalopram [ESCITALOPRAM] Allergy (Severe, Verified 09/14/22 09:25) DISSOCIATIVE REACTION fluoxetine [FLUOXETINE] Allergy (Severe, Verified 09/14/22 09:25) DISSOCIATIVE REACTION hydrocodone [From TUSSIONEX] Allergy (Severe, Verified 09/14/22 09:25) HALLUCINATIONS ibuprofen [IBUPROFEN] Allergy (Severe, Verified 09/14/22 09:25) THROAT SWELLING Sulfa (Sulfonamide Antibiotics) [SULFA (SULFONAMIDE ANTIBIOTICS)] Allergy (Severe, Verified 09/14/22 09:25) DYSPNEA clarithromycin [From BIAXIN] Allergy (Intermediate, Verified 09/14/22 09:25) ABD.PAIN duloxetine [DULOXETINE] Allergy (Intermediate, Verified 09/14/22 09:25) FACIAL NUMBNESS erythromycin base [ERYTHROMYCIN BASE] Allergy (Intermediate, Verified 09/14/22 09:25) RASH Penicillins [PENICILLINS] Allergy (Intermediate, Verified 09/14/22 09:25) RASH tetracycline [TETRACYCLINE] Allergy (Intermediate, Verified 09/14/22 09:25) DIARRHEA ciprofloxacin [From CIPRO] Allergy (Unknown, Verified 09/14/22 09:25) ANAPHYLAXIS codeine [CODEINE] Allergy (Unknown, Verified 09/14/22 09:25) TINNITIS guaifenesin Allergy (Unknown, Verified 09/14/22 09:25) Unknown levofloxacin [From Levaquin] Allergy (Unknown, Verified 09/14/22 09:25) Unknown pregabalin Allergy (Unknown, Verified 09/14/22 09:25) Unknown Medication List - Last Reconciled 09/14/22 by Jose Reis MD atorvastatin 1 tab PO DAILY@1700 azithromycin 250 mg PO DIRECTED cholecalciferol (vitamin D3) (Vitamin D3) 50 mcg PO DAILY furosemide 40 mg PO DAILY levothyroxine 112 mcg PO DAILY lisinopril 10 mg PO DAILY metformin ER 1 tab PO DAILY@1700 omeprazole 20 mg PO DAILY@0630 oxycodone 5 mg PO Q6H PRN pyridoxine (vitamin B6) 100 mg PO DAILY 90 days HPI HPI Comments History of Present Illness Details Xi is a pleasant female. She is a patient of Dr. Wang. She is seen for the following urologic conditions - nephrolithiasis - recurrent UTI Telemedicine Evaluation 15 min Consultation [employer] Mary Video attempted KUB shows stable stone burden right side - 2 x 1 cm stones Repeat imaging for abscess CT scan resolving 6 month follow-up KUB Nephrolithiasis Multiple prior in admission for infection and staghorn - treatment had concurrent abscess 6 months after initial ureteroscopy Intervention - 03/31 right-sided ureteroscopy laser lithotripsy and stent placement - 06/28 completion right ureteroscopy with left ureteroscopy Stone composition - 03/31 Carbonate Apatite (Dahllite) 100% - 06/28 calcium oxalate Imaging - 03/31 CT scan 4 cm right staghorn calculus, 6 mm left Therapeutic plan - suppression antibiotics for recurrent UTI PFSH Medical History Anxiety Cholelithiasis Cirrhosis of liver Diabetes mellitus, type II Does mobilize using walker Fatty liver Fibromyalgia Ganglion cyst HTN (hypertension) Hypercholesterolemia Hypothyroidism Left foot drop Low back pain Neuropathy OA (osteoarthritis) Obstructive airway disease Perirectal abscess Plantar fasciitis PONV (postoperative nausea and vomiting) Primary osteoarthritis of right knee RBBB Renal calculus, bilateral Renal calyceal dilation determined by ultrasound Renal stones Retained ureteral stent Sciatica Staghorn calculus Staghorn calculus UTI (urinary tract infection) Surgical History History of cystoscopy History of lithotripsy History of lumbar discectomy History of lumpectomy of both breasts History of surgery Hx of colonoscopy Status post cystoscopy with ureteral stent placement Family History Father Alcohol dependence Mother CHF (congestive heart failure) Other Alcoholic cirrhosis Social History Household Members: Spouse Housing: House Do you presently have visiting nurse or other home services: No Alcohol intake: never Patient Tobacco Use Status: Former Tobacco user Quit Date: 1986 Tobacco use type: Cigarette Years Smoked: 27 Second Hand Smoke Exposure: No Advance Directives Date on File: 04/06/21 service: No Current occupational status: disabled Review of Systems Const Denies chills and Denies fever(s) Card Reports no additional complaints and Denies syncope Resp Denies cough GI Denies abdominal pain and Denies heartburn Reports as per HPI and Denies change in libido Neuro Denies syncope Psych Denies change in libido Endo Denies change in libido Physical Exam Const General: cooperative, healthy appearing, comfortable and no acute distress Orientation/consciousness: patient oriented x3 HEENT Face and sinus: Yes normal facial exam Mouth: moist mucous membranes Neck Neck: Yes normal visual inspection, Yes full ROM and Yes trachea midline Chest Chest palpation & inspection: normal inspection of the chest Resp Effort & Inspection: normal respiratory effort, able to speak in complete sentences and no respiratory distress GI Inspection: Yes normal to inspection Back/Spine/Pelvis Cervical Spine: normal cervical lordosis Thoracic/Lumbar Spine: thoracic and lumbar spine normal to inspection Skin General skin exam: no rashes or lesions noted Neuro General: patient oriented x3, gait normal, tone normal and moves all extremities Extrem General: Yes normal to inspection and Yes capillary refill normal Assessment & Plan Assessment & Plan (1) Bilateral nephrolithiasis: Code(s): N20.0 - Calculus of kidney Plan Six month follow-up KUB Orders: Orders XR KUB 6 Months N20.0 - Calculus of kidney Medications: Changed From pyridoxine (vitamin B6) 1 tab PO DAILY To pyridoxine (vitamin B6) 100 mg PO DAILY 90 days 90 tabs 1RF Discontinued cefuroxime axetil Discontinued Reason: Patient Completed Course 500 mg PO BID 10 days 20 tabs 0RF cefuroxime axetil Discontinued Reason: Patient Completed Course 500 mg PO BID 5 days 14 tabs 0RF nitrofurantoin monohyd/m-cryst 100 mg (Macrobid) must administer with a meal/food Discontinued Reason: Patient Completed Course 100 mg PO BID 7 days 14 caps 0RF UTI nitrofurantoin macrocrystal Daily for prophylaxis Discontinued Reason: Patient Completed Course 100 mg PO DAILY 90 days 90 caps 1RF N39.0 - Urinary tract infection, site not specified Patient Instructions: Imaging studies, laboratory and physical exam results were discussed and reviewed in detail. No major barriers to patient understanding were identified. An opportunity to ask questions regarding the treatment plan was provided. All questions were answered. The patient expressed understanding and agreement with the above treatment plan. The patient is aware they should contact our office by phone for worsening of their current condition or the appearance of new urologic symptoms. Compliance is encouraged with any medications and followup testing that is ordered. It is a privilege to participate in the urologic care of your patient. If you have any questions or concerns regarding treatment for the above conditions, or other urologic issues, please do not hesitate to contact me. The office telephone contact is [phone]. This note is constructed using voice recognition software. While every effort has been made to ensure accuracy customer complaint service supervisor errors may have been included. Yours sincerely, Dr Jose Reis MD, [facility] - Urology Providers of Expert, Compassionate Care for the Genitourinary System Telehealth Telehealth Location of provider rendering services: practice address Location of patient: address on file Patient Identification confirmed using: Name, : Yes Telehealth method: video Patient verbally consented to treatment: Yes Patient verbally consented to billing insurance company: Yes Patient informed of any privacy concerns related to visit: Yes Coding Level of Care Code Tele Est Pt Level 3 (57156) Diagnoses Bilateral nephrolithiasis N20.0
== END 2022-09-14 09:51 | disposition home or self-care (01) ==
LOC: HO.HUSH 09:21
PROVIDERS: PCP Internal Medicine; Visit Provider Urology
DX: N20.0 Calculus of kidney (principal)
CPT/HCPCS: 99213

== ENCOUNTER → 2022-09-14 09:21 | Outpatient (BNVA) | payer MEDICARE, SELFPAY | PROVIDERS: PCP Internal Medicine; Visit Provider Urology ==

== ENCOUNTER 2022-09-22 14:13 | Outpatient (REF) | payer MEDICARE, SELFPAY | END 2022-09-22 14:14 | disposition home or self-care (01) | LOC: HO.LAB 14:13 | PROVIDERS: PCP Internal Medicine; Visit Provider Advanced Practice Midwife | DX: N95.0 Postmenopausal bleeding (principal); N89.8 Other specified noninflammatory disorders of vagina; N94.9 Unspecified condition associated with female genital organs and menstrual cycle; R35.0 Frequency of micturition | CPT/HCPCS: 81003; 87086; 87480; 87510; 87624; 87660; 88142; 99202 ==

== ENCOUNTER 2022-09-22 14:13 | Outpatient (AMB) | payer MEDICARE, SELFPAY ==
[2022-09-22 14:17] VITALS: BP 116/62; BMI 35.2
--- NOTE | 2022-09-22 14:17 | A.OFFVIS_ITS ---
Intake Vital Signs 09/22/22 14:17 Height 5 ft 3 in Weight 199 lb BMI 35.2 BP 116/62 Intake Visit Reasons: PMB/Vag itch 45 mins per Tatyana Intake Note: The patient agreed to use of a medical staffing coordinator during this encounter. Scribed for LINDSEY Rothman by Ambar Zazueta medical staffing coordinator, on 09/22/2022 at 2:52 pm EST. Shot Dropper Required: No Information Interpreted: non-clinical & clinical Commercial Loan Processor: Commercial Loan Processor Present Allergies chlorpheniramine [From TUSSIONEX] Allergy (Severe, Verified 09/22/22 14:22) HALLUCINATIONS escitalopram [ESCITALOPRAM] Allergy (Severe, Verified 09/22/22 14:22) DISSOCIATIVE REACTION fluoxetine [FLUOXETINE] Allergy (Severe, Verified 09/22/22 14:22) DISSOCIATIVE REACTION hydrocodone [From TUSSIONEX] Allergy (Severe, Verified 09/22/22 14:22) HALLUCINATIONS ibuprofen [IBUPROFEN] Allergy (Severe, Verified 09/22/22 14:22) THROAT SWELLING Sulfa (Sulfonamide Antibiotics) [SULFA (SULFONAMIDE ANTIBIOTICS)] Allergy (Severe, Verified 09/22/22 14:22) DYSPNEA clarithromycin [From BIAXIN] Allergy (Intermediate, Verified 09/22/22 14:22) ABD.PAIN duloxetine [DULOXETINE] Allergy (Intermediate, Verified 09/22/22 14:22) FACIAL NUMBNESS erythromycin base [ERYTHROMYCIN BASE] Allergy (Intermediate, Verified 09/22/22 14:22) RASH Penicillins [PENICILLINS] Allergy (Intermediate, Verified 09/22/22 14:22) RASH tetracycline [TETRACYCLINE] Allergy (Intermediate, Verified 09/22/22 14:22) DIARRHEA ciprofloxacin [From CIPRO] Allergy (Unknown, Verified 09/22/22 14:22) ANAPHYLAXIS codeine [CODEINE] Allergy (Unknown, Verified 09/22/22 14:22) TINNITIS guaifenesin Allergy (Unknown, Verified 09/22/22 14:22) Unknown levofloxacin [From Levaquin] Allergy (Unknown, Verified 09/22/22 14:22) Unknown pregabalin Allergy (Unknown, Verified 09/22/22 14:22) Unknown Is last menstrual period known: No Post menopausal: Yes Patient : No HPI HPI Comments History of Present Illness Details She is here with complaints of PMB and vaginal itching. Reports brown/reddish spotting with vaginal burning. History of Hysterectomy/BSO for uterine cancer. Currently not sexually active in many years. Admits urinary frequency Denies any new soaps, detergents or antibiotics. [facility] Medical History (Updated 09/22/22 @ 15:10 by Ambar Zazueta) Anxiety Cholelithiasis Cirrhosis of liver Diabetes mellitus, type II Does mobilize using walker Fatty liver Fibromyalgia Frequency of urination Ganglion cyst HTN (hypertension) Hypercholesterolemia Hypothyroidism Left foot drop Low back pain Neuropathy OA (osteoarthritis) Obstructive airway disease Perirectal abscess Plantar fasciitis PMB (postmenopausal bleeding) PONV (postoperative nausea and vomiting) Primary osteoarthritis of right knee RBBB Renal calculus, bilateral Renal calyceal dilation determined by ultrasound Renal stones Retained ureteral stent Sciatica Staghorn calculus Staghorn calculus UTI (urinary tract infection) Vaginal burning Vaginal itching Surgical History History of cystoscopy History of lithotripsy History of lumbar discectomy History of lumpectomy of both breasts History of surgery Hx of colonoscopy Status post cystoscopy with ureteral stent placement Family History Father Alcohol dependence Mother CHF (congestive heart failure) Cancer of breast Mother No problems noted. Other Alcoholic cirrhosis Social History Household Members: Spouse Housing: House Do you presently have visiting nurse or other home services: No Alcohol intake: never Patient Tobacco Use Status: Former Tobacco user Quit Date: 1986 Tobacco use type: Cigarette Years Smoked: 27 Second Hand Smoke Exposure: No Advance Directives Date on File: 04/06/21 service: No Current occupational status: disabled Female Reproductive History Menstrual Number of Living Children: 0 Physical Exam Vital Signs: Last Vital Signs BP 116/62 09/22/22 14:17 BMI result Body Mass Index 35.2 Const General: cooperative, healthy appearing, comfortable, no acute distress, well developed, alert and awake Other: difficult vaginal eval, pt. anxious/tense, atrophic and painful for her General: Yes bladder normal to palpation External Female Exam: normal external appearance and normal appearance of the urethra Speculum Exam - Vagina: normal appearance of the vagina, normal palpation, normal vaginal discharge and vagina atrophic Speculum Exam - Cervix: normal palpation, Cervix absent and Other cervical findi ngs present (vag cuff large lesion, blood and mucus present, limited viewing) Bimanual exam- vagina & uterus: normal bimanual exam, normal palpation, bladder normal to palpation, normal palpation and uterus absent Bimanual Exam- Adnexa, other: normal adnexae and no masses Results AMB Urinalysis, Automated UA Leukoctes 3 Marcos/uL Last Edit by Elaine Kay Karthikeyan on 09/22/22 14:35 UA Nitrite Negative Last Edit by Elaine Kay [facility] on 09/22/22 14:35 UA Urobilinogen 0 mg/dL Last Edit by Elaine Kay [facility] on 09/22/22 14:3 5 UA Protein 0 mg/dL Last Edit by Elaine Kay [facility] on 09/22/22 14:35 UA pH 6.5 Last Edit by Elaine Kay [facility] on 09/22/22 14:35 UA Blood 3 Juvenal/uL Last Edit by Elaine Kay [facility] on 09/22/22 14:35 UA Specific Lincoln 1.010 Last Edit by Elaine Kay [facility] on 09/22/22 14:35 UA Ketone Negative Last Edit by Elaine Kay [facility] on 09/22/22 14:35 UA Bilirubin 0 mg/dL Last Edit by Elaine Kay [facility] on 09/22/22 14:35 UA Glucose 0 mg/dL Last Edit by Elaine Kay [facility] on 09/22/22 14:35 Results Reviewed Results Reviewed: Laboratory Last Values Urine pH (Auto) 6.5 09/22/22 14:34 Specific Lincoln (Auto) 1.010 09/22/22 14:34 Urine Protein (Auto) 0 mg/dL 09/22/22 14:34 Glucose (UA)(Auto) 0 mg/dL 09/22/22 14:34 Urine Ketones (Auto) Negative 09/22/22 14:34 Urine Blood (Auto) 3 Juvenal/uL 09/22/22 14:34 Urine Nitrite (Auto) Negative 09/22/22 14:34 Urine Bilirubin (Auto) 0 mg/dL 09/22/22 14:34 Urine Urobilinogen (Auto) 0 mg/dL 09/22/22 14:34 Leukocyte Esterase (Auto) 3 Marcos/uL 09/22/22 14:34 Assessment & Plan Assessment & Plan (1) PMB (postmenopausal bleeding): Code(s): N95.0 - Postmenopausal bleeding Plan: Discussed: Findings-vaginal cuff lesion bleeding, and need to evaluate further and rule out if benign, pre-malignant or malignant. Follow up for consult/vaginoscopy with Dr. Jacobsen All of her questions and concerns were addressed to the best of my ability and shared decision making. She is agreeable to plan of care. (2) Vaginal itching: Code(s): N89.8 - Other specified noninflammatory disorders of vagina Plan: BV testing and GC/CT panel done today. Await results and treat accordingly. (3) Vaginal burning: Code(s): N94.9 - Unspecified condition associated with female genital organs and menstrual cycle (4) Frequency of urination: Code(s): R35.0 - Frequency of micturition Orders: Orders Urine Culture Today N94.9 - Unspecified condition associated with female genital organs and menstrual cycle, R35.0 - Frequency of micturition Bacterial Vaginosis Panel Today N89.8 - Other specified noninflammatory disorders of vagina, N94.9 - Unspecified condition associated with female genital organs and menstrual cycle, N95.0 - Postmenopausal bleeding AMB Urinalysis Automated Today N89.8 - Other specified noninflammatory disorders of vagina Pap Smear Today N89.8 - Other specified noninflammatory disorders of vagina, N94.9 - Unspecified condition associated with female genital organs and menstrual cycle, N95.0 - Postmenopausal bleeding Coding Level of Care Code New Pt Level 3 (03658) Diagnoses PMB (postmenopausal bleeding) N95.0 Vaginal itching N89.8 Vaginal burning N94.9 Frequency of urination R35.0
== END 2022-09-22 15:48 | disposition home or self-care (01) ==
LOC: HO.HWS 14:13
PROVIDERS: PCP Internal Medicine; Visit Provider Advanced Practice Midwife
DX: N95.0 Postmenopausal bleeding (principal); N89.8 Other specified noninflammatory disorders of vagina; N94.9 Unspecified condition associated with female genital organs and menstrual cycle; R35.0 Frequency of micturition
CPT/HCPCS: 99203

== ENCOUNTER 2022-09-22 15:17 | Outpatient (REF) | payer MEDICARE, SELFPAY ==
[2022-09-23 10:45] LABS: BV Int Neg Control Negative (Negative); BV Int Pos Control Positive (Positive)
[2022-09-24 21:33] LABS: HPV mRNA E6/E7 rflx Not Detected (Not Detected)
== END 2022-09-22 15:18 | disposition home or self-care (01) ==
LOC: HO.LNP 15:17
PROVIDERS: Visit Provider Advanced Practice Midwife
DX: Z13.89 Encounter for screening for other disorder (principal)
CPT/HCPCS: 87086; 87480; 87510; 87624; 87660; 88142

== ENCOUNTER 2022-11-19 08:58 | Outpatient (REF) | payer MEDICARE, SELFPAY ==
[2022-11-19 11:47] LABS: Appearance Urine Cloudy; Color Urine Yellow; Glucose Urine UA Negative (Negative); Leukocyte Esterase Urine Large (3+) (Negative); Nitrite Urine Negative (Negative); Specific Gravity - Urine 1.015 (1.005-1.025); UMIC TRIGGER UA YES; Urine Blood Small (1+) (Negative); Urine Ketones Negative (Negative); Urine Protein 30 (1+) mg/dL (Neg-Trace)
[2022-11-19 12:01] LABS: MANUAL DIFF FLAG NO
[2022-11-19 12:15] LABS: Bacteria Urine None Seen (None Seen); Squamous Epithelial Cell Urine 0-2 /HPF (0-2); WBC Urine >50 /HPF (0-5)
[2022-11-19 12:26] LABS: Basophils Percent Auto 0.4 % (0-2); Eosinophils Absolute Auto 0.2 X10*3/uL (0.0-0.4); Eosinophils Percent Auto 2.6 % (0-4); Hematocrit 36.2 % (37.0-47.0); Hemoglobin 11.9 g/dl (12.0-16.0); Imm Gran Abs Auto 0.09 X10*3/uL (0.00-0.03); Imm Gran Pct Auto 1.2 % (0.0-0.4); Lymphocytes Absolute Auto 2.4 X10*3/uL (1.2-4.9); Lymphocytes Percent Auto 32.2 % (20-40); Mean Corpuscular HGB Conc 32.9 g/dl (31.0-35.0); Mean Corpuscular Hemoglobin 29.8 pg (27.0-33.0); Mean Corpuscular Volume 90.7 fL (80.0-98.0); Mean Platelet Volume 10.2 fL (9.4-12.3); Monocytes Absolute Auto 0.7 X10*3/uL (0.1-1.2); Monocytes Percent Auto 8.7 % (2-11); Neutrophils Absolute Auto 4.1 x10*3/uL (2.0-8.3); Neutrophils Percent Auto 54.9 % (45-73); Platelet Count 212 X10*3/uL (160-400); Red Blood Count 3.99 X10*6/uL (4.20-5.50); Red Cell Distribution Width 15.1 % (11.0-16.0); White Blood Count 7.6 X10*3/uL (4.8-10.8)
[2022-11-19 12:38] LABS: Estimated Average Glucose 120 mg/dL; Hemoglobin A1c % 5.8 % (<6.0)
[2022-11-19 13:09] LABS: Alanine Aminotransferase 24 U/L (0-31); Albumin Level 3.5 g/dL (3.5-5.0); Alkaline Phosphatase 56 U/L (39-117); Anion Gap 17 (12-20); Aspartate Amino Transferase 31 U/L (5-31); Bilirubin Total 0.7 mg/dL (0.0-1.0); Blood Urea Nitrogen 19 mg/dL (9-16); Calcium 9.3 mg/dL (8.4-10.2); Carbon Dioxide 25 mmol/L (22-29); Chloride 102 mmol/L (96-108); Cholesterol 119 mg/dL (<200); Estimated Glomerular Filt Rate 43; Glucose Fasting 144 mg/dL (60-99); HDL Cholesterol 39 mg/dL (>40); LDL Cholesterol Calculated 60 mg/dL (<100); Potassium 2.9 mmol/L (3.3-5.1); Sodium 141 mmol/L (135-145); Total Protein 7.3 g/dL (6.5-8.0); Triglycerides 100 mg/dL (<150)
[2022-11-19 13:13] LABS: Thyroid Stimulating Hormone 0.22 uIU/mL (0.32-4.0); Vitamin D 25-OH Total 26.5 ng/mL (>30)
[2022-11-19 13:14] LABS: Creatinine Urine 119.62 mg/dL
== END 2022-11-19 08:59 | disposition home or self-care (01) ==
LOC: HO.HMGCLDS 08:58
PROVIDERS: PCP Internal Medicine; Visit Provider Internal Medicine
DX: I10 Essential (primary) hypertension (principal); E03.9 Hypothyroidism, unspecified; N20.0 Calculus of kidney; E11.9 Type 2 diabetes mellitus without complications; N93.9 Abnormal uterine and vaginal bleeding, unspecified; L30.9 Dermatitis, unspecified; E55.9 Vitamin D deficiency, unspecified
CPT/HCPCS: 36415; 80053; 80061; 81001; 82043; 82306; 82570; 83036; 84443; 85025

== ENCOUNTER 2022-12-07 11:20 | Outpatient (REF) | payer MEDICARE, SELFPAY ==
[2022-12-07 14:18] LABS: Anion Gap 15 (12-20); Blood Urea Nitrogen 21 mg/dL (9-16); Calcium 9.3 mg/dL (8.4-10.2); Carbon Dioxide 22 mmol/L (22-29); Chloride 102 mmol/L (96-108); Estimated Glomerular Filt Rate 40; Glucose Random 152 mg/dL (60-115); Potassium 4.1 mmol/L (3.3-5.1); Sodium 135 mmol/L (135-145); Thyroid Stimulating Hormone 1.22 uIU/mL (0.32-4.0)
== END 2022-12-07 11:21 | disposition home or self-care (01) ==
LOC: HO.HMGCLDS 11:20
PROVIDERS: PCP Internal Medicine; Visit Provider Internal Medicine
DX: I10 Essential (primary) hypertension (principal); E03.9 Hypothyroidism, unspecified
CPT/HCPCS: 36415; 80048; 84443

== ENCOUNTER 2022-12-21 | Outpatient (REF) | payer MEDICARE, SELFPAY | END 2022-12-21 00:01 | disposition home or self-care (01) | LOC: HO.HMGCLNP | PROVIDERS: Visit Provider Internal Medicine | DX: Z13.89 Encounter for screening for other disorder (principal) ==

== ENCOUNTER 2022-12-21 12:32 | Outpatient (AMB) | payer MEDICARE, SELFPAY ==
[2022-12-21 15:16] VITALS: BP 120/68; PULSE 58; TEMP 36.6; O2SAT 98
--- NOTE | 2022-12-21 15:16 | AM.OFFWIN_ITS ---
Intake Vital Signs 12/21/22 15:16 Height 5 ft 3 in BP 120/68 Blood Pressure Location Rt brachial Position Sitting Pulse 58 Pulse Source Pulse Oximeter Temp 97.8 F Temp Source Temporal Artery Scan Pulse Oximetry (%) 98 Oxygen Delivery Method Room Air Intake Visit Reasons: EST/back wound not healing (lobby) Intake Note: pt is here for c/o wound on back Patient Tobacco Use Status: Former Tobacco user Quit Date: 1986 Allergies chlorpheniramine [From TUSSIONEX] Allergy (Severe, Verified 12/26/22 17:27) HALLUCINATIONS escitalopram [ESCITALOPRAM] Allergy (Severe, Verified 12/26/22 17:27) DISSOCIATIVE REACTION fluoxetine [FLUOXETINE] Allergy (Severe, Verified 12/26/22 17:27) DISSOCIATIVE REACTION hydrocodone [From TUSSIONEX] Allergy (Severe, Verified 12/26/22 17:27) HALLUCINATIONS ibuprofen [IBUPROFEN] Allergy (Severe, Verified 12/26/22 17:27) THROAT SWELLING Sulfa (Sulfonamide Antibiotics) [SULFA (SULFONAMIDE ANTIBIOTICS)] Allergy (Severe, Verified 12/26/22 17:27) DYSPNEA clarithromycin [From BIAXIN] Allergy (Intermediate, Verified 12/26/22 17:27) ABD.PAIN duloxetine [DULOXETINE] Allergy (Intermediate, Verified 12/26/22 17:27) FACIAL NUMBNESS erythromycin base [ERYTHROMYCIN BASE] Allergy (Intermediate, Verified 12/26/22 17:27) RASH Penicillins [PENICILLINS] Allergy (Intermediate, Verified 12/26/22 17:27) RASH tetracycline [TETRACYCLINE] Allergy (Intermediate, Verified 12/26/22 17:27) DIARRHEA ciprofloxacin [From CIPRO] Allergy (Unknown, Verified 12/26/22 17:27) ANAPHYLAXIS codeine [CODEINE] Allergy (Unknown, Verified 12/26/22 17:27) TINNITIS guaifenesin Allergy (Unknown, Verified 12/26/22 17:27) Unknown levofloxacin [From Levaquin] Allergy (Unknown, Verified 12/26/22 17:27) Unknown pregabalin Allergy (Unknown, Verified 12/26/22 17:27) Unknown Medication List - Last Reconciled 12/26/22 by Ap Deal MD atorvastatin 1 tab PO DAILY@1700 cefuroxime axetil 500 mg PO BID 7 days cholecalciferol (vitamin D3) (Vitamin D3) 50 mcg PO DAILY furosemide 40 mg PO DAILY levothyroxine 112 mcg PO DAILY lisinopril 10 mg PO DAILY metformin ER 1 tab PO DAILY@1700 omeprazole 20 mg PO DAILY@0630 oxycodone 5 mg PO Q6H PRN pyridoxine (vitamin B6) 100 mg PO DAILY 90 days Do you need a note to return to daycare/school/sports/work: Yes HPI EST/back wound not healing (danika) HPI Details 77-year-old female presents to the [facility] for a sick visit. She is accompanied by her and comes to the examining room in a wheelchair. Patient is reporting an open wound in her back. She thinks it opened up a few weeks ago. He she had a history of retroperitoneal infection and had a drain. After many months the wound had closed. She believes it has reopened. No fevers or chills. [facility] Medical History (Updated 12/22/22 @ 16:12 by Ap Deal MD) Frequency of urination Vaginal burning Vaginal itching PMB (postmenopausal bleeding) Cirrhosis of liver Does mobilize using walker PONV (postoperative nausea and vomiting) Left foot drop Fatty liver Fibromyalgia Neuropathy RBBB Cholelithiasis Staghorn calculus Renal calculus, bilateral Renal calyceal dilation determined by ultrasound UTI (urinary tract infection) Diabetes mellitus, type II Ganglion cyst Plantar fasciitis Anxiety OA (osteoarthritis) Obstructive airway disease Hypercholesterolemia Low back pain Sciatica Hypothyroidism HTN (hypertension) Primary osteoarthritis of right knee Retained ureteral stent Renal stones Staghorn calculus Perirectal abscess Surgical History Status post cystoscopy with ureteral stent placement History of lumbar discectomy History of lumpectomy of both breasts History of cystoscopy History of lithotripsy Hx of colonoscopy History of surgery Family History Father Alcohol dependence Mother CHF (congestive heart failure) Cancer of breast Mother No problems noted. Other Alcoholic cirrhosis Social History Household Members: Spouse Housing: House Do you presently have visiting nurse or other home services: No Alcohol intake: never Patient Tobacco Use Status: Former Tobacco user Quit Date: 1986 Tobacco use type: Cigarette Years Smoked: 27 Second Hand Smoke Exposure: No Advance Directives Date on File: 04/06/21 service: No Current occupational status: disabled Physical Exam Vital Signs: Last Vital Signs Temp 97.8 F 12/21/22 15:16 Pulse 58 12/21/22 15:16 BP 120/68 12/21/22 15:16 Pulse Ox 98 12/21/22 15:16 Oxygen Delivery Method Room Air 12/21/22 15:16 Skin Other: Back: Open wound on her back. No discharge seen. No tenderness around the wound. Assessment & Plan Assessment & Plan (1) Open wound of back, complicated: Code(s): S21.209A - Unspecified open wound of unspecified back wall of thorax without penetration into thoracic cavity, initial encounter Plan: Cefuroxime started. This is the only medication patient can not tolerate and her list of allergies to medication is very long. Wound cultures have been done. A wound clinic appointment has been requested. Orders: Orders Routine Culture w Gram Stain 12/21/22 S21.209A - Unspecified open wound of unspecified back wall of thorax without penetration into thoracic cavity, initial encounter Referrals Wound Care Referral S21.209A - Unspecified open wound of unspecified back wall of thorax without penetration into thoracic cavity, initial encounter Medications: Refilled cefuroxime axetil 500 mg PO BID 14 tabs 0RF 7 days Coding Level of Care Code Est Pt Level 4 (23055) Diagnoses Open wound of back, complicated S21.209A
== END 2022-12-21 16:22 | disposition home or self-care (01) ==
PROVIDERS: PCP Internal Medicine; Visit Provider Internal Medicine
DX: S21.209A Unspecified open wound of unspecified back wall of thorax without penetration into thoracic cavity, initial encounter (principal)
CPT/HCPCS: 99214

== ENCOUNTER 2023-02-08 12:22 | Outpatient (REF) | payer MEDICARE, SELFPAY ==
[2023-02-08 13:16] LABS: MANUAL DIFF FLAG NO
[2023-02-08 13:20] LABS: Basophils Percent Auto 0.4 % (0-2); Eosinophils Absolute Auto 0.2 X10*3/uL (0.0-0.4); Eosinophils Percent Auto 1.8 % (0-4); Hemoglobin 12.3 g/dl (12.0-16.0); Imm Gran Abs Auto 0.19 X10*3/uL (0.00-0.03); Imm Gran Pct Auto 1.9 % (0.0-0.4); Lymphocytes Absolute Auto 3.1 X10*3/uL (1.2-4.9); Lymphocytes Percent Auto 31.3 % (20-40); Mean Corpuscular HGB Conc 32.4 g/dl (31.0-35.0); Mean Corpuscular Hemoglobin 29.7 pg (27.0-33.0); Mean Corpuscular Volume 91.8 fL (80.0-98.0); Monocytes Absolute Auto 0.8 X10*3/uL (0.1-1.2); Monocytes Percent Auto 7.7 % (2-11); Neutrophils Absolute Auto 5.7 x10*3/uL (2.0-8.3); Neutrophils Percent Auto 56.9 % (45-73); Platelet Count 229 X10*3/uL (160-400); Red Blood Count 4.14 X10*6/uL (4.20-5.50); Red Cell Distribution Width 15.6 % (11.0-16.0)
[2023-02-08 13:30] LABS: Blood Urea Nitrogen 27 mg/dL (9-16); Estimated Glomerular Filt Rate 37
== END 2023-02-08 12:23 | disposition home or self-care (01) ==
LOC: HO.HMGCLDS 12:22
PROVIDERS: PCP Internal Medicine; Visit Provider Surgery
DX: T14.8XXA Other injury of unspecified body region, initial encounter (principal); X58.XXXA Exposure to other specified factors, initial encounter; Y93.9 Activity, unspecified; Y92.9 Unspecified place or not applicable; Y99.9 Unspecified external cause status
CPT/HCPCS: 36415; 82565; 84520; 85025

== ENCOUNTER 2023-04-04 15:53 | Outpatient (REF) | payer MEDICARE, SELFPAY ==
--- NOTE | ~2023-04-04 | CT_ITS ---
EXAMINATION: CT ABDOMEN AND PELVIS WITH CONTRAST CLINICAL INFORMATION: Abscess of back, right flank. COMPARISON: CT abdomen 02/02/2022. CT abdomen and pelvis 02/02/2022. TECHNIQUE: Multidetector volumetric images were obtained from the superior aspect of the liver through the pubic symphysis following administration 85 mL of Omnipaque 350 intravenous contrast. Sagittal and coronal reformatted images were obtained on the technologist's workstation. Oral contrast: No This CT examination was performed using dose optimization techniques as appropriate, variously including the following: *Automated exposure control *Adjustment of mA and/or kV according to patient size (this includes techniques or standardized protocols for targeted exams where dose is matched to indication/reason for exam; i.e. extremities or head) *Use of iterative reconstruction technique DLP: 691 mGy-cm FINDINGS: LUNG BASES: No suspicious lung nodules. Small hiatal hernia. LIVER, GALLBLADDER, AND BILIARY TREE: Cirrhotic appearing liver with likely steatosis. No discrete liver mass. No biliary ductal dilatation. Cholelithiasis. No evidence of acute cholecystitis. PANCREAS: No discrete mass or ductal dilatation. SPLEEN: Borderline enlarged at 12.3 cm. The splenic vein is patent. No perisplenic varices visible. ADRENAL GLANDS: No adrenal mass. KIDNEYS AND URETERS: Irregular lobulated right kidney with focal areas of scarring likely related to underlying stone disease. The left kidney demonstrates a more normal appearing parenchyma. Tiny hypodensities are seen bilaterally which are too small to characterize but most likely benign cysts. Simple cysts are seen from the upper pole of the right kidney. No imaging follow-up is recommended. Bilateral renal stone disease, the largest of which measures 1.8 cm and 1100 Hounsfield units. Rim-enhancing fluid collection exophytic from the right lower pole measures 1.6 x 1.6 cm and appears to track to the right psoas muscle where there is a second collection measuring 3.5 x 2.1 x 1.5 cm with layering calculi, presumably stones that migrated from the right kidney.. From this site there is a fistula to the skin surface along the prior drainage catheter tract. Induration and underlying phlegmon in the subcutaneous tissue at this location but no drainable abscess. BLADDER: Unremarkable. GASTROINTESTINAL TRACT: The small and large bowel are normal in caliber there is diverticulosis of the colon, most prominent in the sigmoid. There is abrupt caliber change at the rectosigmoid junction associated with some pericolonic inflammatory change. This may reflect stricturing from prior infection although a mass cannot entirely be excluded by imaging. There is likely a persistent low-grade diverticulitis at this location based on comparison to prior imaging. ABDOMINAL WALL: Fat-containing umbilical hernia. LYMPH NODES: No lymphadenopathy. VASCULAR: Aortoiliac atherosclerosis. PELVIC VISCERA: Hysterectomy. OSSEOUS STRUCTURES: Degenerative changes in the spine. CT/CT abdomen pelvis w IV con IMPRESSION: The patient has undergone catheter drainage of a multicompartment right retroperitoneal abscess which was likely related to underlying renal stone disease. The inferior perirenal and posterior pararenal fluid collections have significantly improved but are not completely resolved measuring 1.6 and 3.5 cm respectively. The collections appear to connect via a fistulous tract. There is a second fistulous tract from the posterior pararenal fluid collection to the skin surface. There is subcutaneous induration at this site but no discrete drainable fluid collection. Calculi within the pararenal collection are a potential nidus for ongoing infection. Colonic diverticulosis with subacute diverticulitis in the distal sigmoid colon. Abrupt caliber change at the rectosigmoid junction may relate to chronic stricturing as sequela of diverticular disease although an underlying lesion cannot be excluded by imaging. Recommend clinical correlation for symptomatology and consider colonoscopy if not recently performed. Other incidental and chronic findings as above. Fleischner guidelines were followed.
[2023-04-05 08:20] LABS: Creatinine POC 1.1 mg/dL (0.5-1.4); GFR POC 52
== END 2023-04-04 15:54 | disposition home or self-care (01) ==
LOC: HO.CT 15:53
PROVIDERS: Visit Provider Surgery
DX: L02.212 Cutaneous abscess of back [any part, except buttock and flank] (principal)
CPT/HCPCS: 74177; 82565

== ENCOUNTER 2023-04-12 14:09 | Emergency (ER) | payer MEDICARE, SELFPAY ==
--- NOTE | 2023-04-12 14:12 | ED.GENADULT ---
HPI - General Adult General Chief complaint: Wound/Laceration Stated complaint: R Side Wound Sent By Wound Care Time Seen by Provider: 04/12/23 19:52 Source: patient, family and old records reviewed Mode of arrival: ambulatory Limitations: no limitations History of Present Illness HPI narrative: 78 y female with complicated hx of psoas abscess on R side managed in past with IR drainage + for proteus likely nidus from known staghorn calculus it is S to cephalosporins. She comes in with c/o being sent from wound center as they weren't sure if she needed antibiotics as they did a wound culture. She notes no fevers, no increased pain, no change in drainage. She doesn't want an IV just had CT scan on 04/04 that shows fluid collections are there and have grown a fistula. She states she would like to trial oral antibiotics. complaint: drainage from R flank Onset (ago): month(s) (2+) Location: abdomen (flank) and right Radiation: non-radiation Severity: mild Quality: aching Pain Consistency: intermittent Relieving factors: rest Exacerbating factors: movement Associated symptoms: other (chronic bloody drainage) Treatments prior to arrival: other (bandage changes) Related Data Home Medications Medication Instructions Recorded Confirmed levothyroxine 112 mcg tablet 112 mcg PO DAILY 08/28/20 09/14/22 atorvastatin 10 mg tablet 1 tab PO DAILY@1700 04/05/21 09/14/22 metformin 500 mg tablet,extended 1 tab PO DAILY@1700 04/06/21 09/14/22 release 24 hr omeprazole 20 mg capsule,delayed 20 mg PO DAILY@0630 04/29/21 09/14/22 release cholecalciferol (vitamin D3) 50 50 mcg PO DAILY 07/19/22 09/14/22 mcg (2,000 unit) tablet (Vitamin D3) lisinopril 10 mg tablet 10 mg PO DAILY 07/19/22 09/14/22 Previous Rx's Medication Instructions Recorded furosemide 40 mg tablet 40 mg PO DAILY #30 tabs 12/16/21 oxycodone 5 mg tablet 5 mg PO Q6H PRN severe pain (scale 07/14/22 score 7-10) #8 tabs cefuroxime axetil 500 mg tablet 500 mg PO BID 7 days #14 tabs 12/22/22 pyridoxine (vitamin B6) 100 mg 100 mg PO DAILY 90 days #90 tabs 03/14/23 tablet cefuroxime axetil 500 mg tablet 500 mg PO BID 10 days #20 tabs 04/12/23 Allergies Allergy/AdvReac Type Severity Reaction Status Date / Time chlorpheniramine Allergy Severe HALLUCINATI Verified 12/26/22 17:27 [From TUSSIONEX] ONS escitalopram [ESCITALOPRAM] Allergy Severe DISSOCIATIVE Verified 12/26/22 17:27 REACTION fluoxetine [FLUOXETINE] Allergy Severe DISSOCIATIVE Verified 12/26/22 17:27 REACTION hydrocodone [From TUSSIONEX] Allergy Severe HALLUCINATI Verified 12/26/22 17:27 ONS ibuprofen [IBUPROFEN] Allergy Severe THROAT Verified 12/26/22 17:27 SWELLING Sulfa (Sulfonamide Allergy Severe DYSPNEA Verified 12/26/22 17:27 Antibiotics) [SULFA (SULFONAMIDE ANTIBIOTICS)] clarithromycin [From BIAXIN] Allergy Intermediate ABD.PAIN Verified 12/26/22 17:27 duloxetine [DULOXETINE] Allergy Intermediate FACIAL Verified 12/26/22 17:27 NUMBNESS erythromycin base Allergy Intermediate RASH Verified 12/26/22 17:27 [ERYTHROMYCIN BASE] Penicillins [PENICILLINS] Allergy Intermediate RASH Verified 12/26/22 17:27 tetracycline [TETRACYCLINE] Allergy Intermediate DIARRHEA Verified 12/26/22 17:27 ciprofloxacin [From CIPRO] Allergy Unknown ANAPHYLAXIS Verified 12/26/22 17:27 codeine [CODEINE] Allergy Unknown TINNITIS Verified 12/26/22 17:27 guaifenesin Allergy Unknown Unknown Verified 12/26/22 17:27 levofloxacin [From Levaquin] Allergy Unknown Unknown Verified 12/26/22 17:27 pregabalin Allergy Unknown Unknown Verified 12/26/22 17:27 Review of Systems Review of Systems: Constitutional : No Fever, No Chills, No Fatigue ENT/Mouth : No sore throat, No Rhinorrhea Eyes: No Eye Pain, No Swelling, No Redness Cardiovascular : No Chest Pain, No SOB, No Dyspnea on Exertion Respiratory : No Cough, No Sputum Gastrointestinal : No Nausea, No Vomiting, No Diarrhea, No abdominal Pain Genitourinary : No Dysuria, No Urinary Frequency, No Hematuria, Musculoskeletal : No joint pain, No Myalgias, No Joint Swelling Skin : No rash, pos skin lesion Neuro : No Weakness, No Numbness, No Dizziness, no Headache Psych : No Anxiety/Panic, No Depression All other systems reviewed and are negative [facility] Past Medical History Attestation statement: The following information was validated with the patient. Source: old records reviewed Medical History Frequency of urination Vaginal burning Vaginal itching PMB (postmenopausal bleeding) Cirrhosis of liver Does mobilize using walker PONV (postoperative nausea and vomiting) Left foot drop Fatty liver Fibromyalgia Neuropathy RBBB Cholelithiasis Staghorn calculus Renal calculus, bilateral Renal calyceal dilation determined by ultrasound UTI (urinary tract infection) Diabetes mellitus, type II Ganglion cyst Plantar fasciitis Anxiety OA (osteoarthritis) Obstructive airway disease Hypercholesterolemia Low back pain Sciatica Hypothyroidism HTN (hypertension) Primary osteoarthritis of right knee Retained ureteral stent Renal stones Staghorn calculus Perirectal abscess Surgical History Status post cystoscopy with ureteral stent placement History of lumbar discectomy History of lumpectomy of both breasts History of cystoscopy History of lithotripsy Hx of colonoscopy History of surgery Family History Family History Father Alcohol dependence Mother CHF (congestive heart failure) Cancer of breast Mother No problems noted. Other Alcoholic cirrhosis Social History Social History Household Members: Spouse Housing: House Do you presently have visiting nurse or other home services: No Alcohol intake: never Comment: refuses bed alarm. Walks w/ walker w/ supervision from . Patient Tobacco Use Status: Former Tobacco user Quit Date: 1986 Tobacco use type: Cigarette Years Smoked: 27 Smoked in Last 30 Days: No Second Hand Smoke Exposure: No Advance Directives: Yes Advance Directives on File: Yes Advance Directives Date on File: 04/06/21 service: No Current occupational status: disabled Physical Exam ED Vital Signs: Vital Signs - 24 hr 04/12/23 14:13 04/12/23 19:44 Temperature 97 F 97.7 F Pulse Rate 82 86 Respiratory Rate 18 17 Blood Pressure 113/59 L 146/57 H Pulse Oximetry 99 97 Oxygen Delivery Method Room Air Room Air BMI result Body Mass Index 35.7 Appearance: Alert. Oriented X3. No acute distress. Eyes: Pupils equal, round and reactive to light. ENT: Pharynx normal. Neck: Normal inspection. Neck supple. CVS: Normal heart rate and rhythm. Pulses normal. Respiratory: No respiratory distress. Breath sounds normal. Abdomen: Soft and nontender. R flank ss to thicker drainage but no fluctuance noted no erythema Skin: Skin warm and dry. Normal skin color. Normal skin turgor. Extremities: No lower extremity edema. No calf ttp Neuro: Oriented X 3. No motor deficit. No sensory deficit. Course Course Course Narrative: RME- 78 year old female presents for evaluation of right flank wound for the last 2 years. However, since Tuesday it has been draining and painful. It was cultured at the wound clinic and grew proteus mirabilis. She is a patient of Dr Reis for urology. Plan for labs including blood culture. Medical Decision Making Medical Decision Making [facility] [place] Narrative: 78 yo female with PMH of prior psoas infection s/p IR drainage grew out proteus with stone as nidus for infection she has chronic draining fistula and is managed by [facility] and wound care center. She was sent by wound care center just had CT scan and proteus grow out from culture. She does not want IV or repeat CT scan she is not toxic but she is high risk she still just wants to trial oral outpatient antibiotics. Will start on ceftin and DC home with precautions. Differential Diagnosis Differential Diagnoses: The differential diagnosis associated with the presentation includes proteus infection, chronic fistula Admission/Observation Consideration of admission/observation: Escalation of care including admission/observation considered normal VS, lactic acid from metformin, no vomiting, CT scan just done she does not want another she wants to trial oral antibiotics and not get IV at this time will DC home with strict precautions Lab Data [facility] [place] Lab Attestation statement: I reviewed the patient's lab results. 04/12/23 14:24 04/12/23 14:24 Labs: Lab Results 04/12/23 04/12/23 04/12/23 Range/Units 14:24 16:57 19:15 WBC 8.8 (4.8-10.8) X10*3/uL RBC 4.39 (4.20-5.50) X10*6/uL Hgb 13.0 (12.0-16.0) g/dl Hct 39.7 (37.0-47.0) % MCV 90.4 (80.0-98.0) fL MCH 29.6 (27.0-33.0) pg MCHC 32.7 (31.0-35.0) g/dl RDW 13.9 (11.0-16.0) % Plt Count 249 (160-400) X10*3/uL MPV 9.6 (9.4-12.3) fL Immature Gran % (Auto) 1.1 H (0.0-0.4) % Neut % (Auto) 70.7 (45-73) % Lymph % (Auto) 21.1 (20-40) % [place] % (Auto) 5.4 (2-11) % Eos % (Auto) 1.1 (0-4) % Baso % (Auto) 0.6 (0-2) % Lymph # (Auto) 1.9 (1.2-4.9) X10*3/uL [place] # (Auto) 0.5 (0.1-1.2) X10*3/uL Eos # (Auto) 0.1 (0.0-0.4) X10*3/uL Baso # (Auto) 0.1 (0.0-0.2) X10*3/uL Abs Immat Gran (auto) 0.10 H (0.00-0.03) X10*3/uL Absolute Neuts (auto) 6.2 (2.0-8.3) x10*3/uL Absolute Nucleated RBC 0.000 (0.0-0.012) X10*3/uL Nucleated RBC % (auto) 0.0 (0.0-0.2) /100WBC Sodium 137 (135-145) mmol/L Potassium 3.4 (3.3-5.1) mmol/L Chloride 104 (96-108) mmol/L Carbon Dioxide 25 (22-29) mmol/L Anion Gap 11 L (12-20) BUN 16 (9-16) mg/dL Creatinine 1.49 H (0.5-1.4) mg/dL Estim Creat Clear Calc 35.7 Estimated GFR 34 Random Glucose 167 H (60-115) mg/dL Lactic Acid 2.5 H* (0.5-2.0) mmol/L Lactic Acid F/U @ 2Hr 2.1 H* (0.5-2.0) mmol/L Lactic Acid F/U @ 4Hr 2.1 H* (0.5-2.0) mmol/L Calcium 9.6 (8.4-10.2) mg/dL Total Bilirubin 0.5 (0.0-1.0) mg/dL AST 37 H (5-31) U/L ALT 30 (0-31) U/L Alkaline Phosphatase 62 (39-117) U/L Total Protein 8.1 H (6.5-8.0) g/dL Albumin 3.7 (3.5-5.0) g/dL Lipase 15 (8-78) U/L Urine Color Urine Appearance Urine pH (5.0-9.0) Ur Specific [place] (1.005-1.025) Urine Protein (Neg-Trace) mg/dL Urine Glucose (UA) (Negative) mg/dL Urine Ketones (Negative) mg/dL Urine Blood (Negative) Urine Nitrite (Negative) Ur Leukocyte Esterase (Negative) Urine RBC (0-2) /HPF Urine WBC (0-5) /HPF Ur Squamous Epith Cells (0-2) /HPF Urine Bacteria (None Seen) Hyaline Casts (0-2) /LPF Influenza Type A (PCR) NEGATIVE (Negative) Influenza Type B (PCR) NEGATIVE (Negative) RSV RNA Qual (PCR) NEGATIVE (Negative) SARS-CoV-2 RNA (RT-PCR) NEGATIVE (Negative) 04/12/23 Range/Units 19:56 WBC (4.8-10.8) X10*3/uL RBC (4.20-5.50) X10*6/uL Hgb (12.0-16.0) g/dl Hct (37.0-47.0) % MCV (80.0-98.0) fL MCH (27.0-33.0) pg MCHC (31.0-35.0) g/dl RDW (11.0-16.0) % Plt Count (160-400) X10*3/uL MPV (9.4-12.3) fL Immature Gran % (Auto) (0.0-0.4) % Neut % (Auto) (45-73) % Lymph % (Auto) (20-40) % [place] % (Auto) (2-11) % Eos % (Auto) (0-4) % Baso % (Auto) (0-2) % Lymph # (Auto) (1.2-4.9) X10*3/uL [place] # (Auto) (0.1-1.2) X10*3/uL Eos # (Auto) (0.0-0.4) X10*3/uL Baso # (Auto) (0.0-0.2) X10*3/uL Abs Immat Gran (auto) (0.00-0.03) X10*3/uL Absolute Neuts (auto) (2.0-8.3) x10*3/uL Absolute Nucleated RBC (0.0-0.012) X10*3/uL Nucleated RBC % (auto) (0.0-0.2) /100WBC Sodium (135-145) mmol/L Potassium (3.3-5.1) mmol/L Chloride (96-108) mmol/L Carbon Dioxide (22-29) mmol/L Anion Gap (12-20) BUN (9-16) mg/dL Creatinine (0.5-1.4) mg/dL Estim Creat Clear Calc Estimated GFR Random Glucose (60-115) mg/dL Lactic Acid (0.5-2.0) mmol/L Lactic Acid F/U @ 2Hr (0.5-2.0) mmol/L Lactic Acid F/U @ 4Hr (0.5-2.0) mmol/L Calcium (8.4-10.2) mg/dL Total Bilirubin (0.0-1.0) mg/dL AST (5-31) U/L ALT (0-31) U/L Alkaline Phosphatase (39-117) U/L Total Protein (6.5-8.0) g/dL Albumin (3.5-5.0) g/dL Lipase (8-78) U/L Urine Color Yellow Urine Appearance Cloudy Urine pH 6.0 (5.0-9.0) Ur Specific [place] 1.010 (1.005-1.025) Urine Protein 30 (1+) H (Neg-Trace) mg/dL Urine Glucose (UA) 100 H (Negative) mg/dL Urine Ketones Negative (Negative) mg/dL Urine Blood Small (1+) H (Negative) Urine Nitrite Negative (Negative) Ur Leukocyte Esterase Large (3+) H (Negative) Urine RBC 6-10 H (0-2) /HPF Urine WBC >50 H (0-5) /HPF Ur Squamous Epith Cells 0-2 (0-2) /HPF Urine Bacteria 4+ (None Seen) Hyaline Casts 0-2 (0-2) /LPF Influenza Type A (PCR) (Negative) Influenza Type B (PCR) (Negative) RSV RNA Qual (PCR) (Negative) SARS-CoV-2 RNA (RT-PCR) (Negative) Independent Interpretation I performed an independent interpretation of an: CT Scan (04/04) Radiology Impression Discussion of test interpretation with radiology: I have reviewed the radiologist's reading. Independent Historian Clinical information obtained from an independent historian. History obtained from or confirmed by: Spouse External Record Review External record reviewed: Inpatient record Prescription Management I considered prescription management with: Antibiotic Discharge Plan Discharge Clinical Impression: Fistula Patient Disposition: Home, Self-Care Instructions: Cefuroxime (By mouth) Additional Instructions: return for increased pain, fevers, chills, n/v, no improvement. you should call the wound care center in the morning. your labs were reassuring other than your lactic acid was mildly elevated due to metformin use. please finish all antibiotics. follow up with Dr. Reis as well. take an over the counter probiotic Prescriptions: New cefuroxime axetil 500 mg tablet 500 mg PO BID 10 Days Qty: 20 0RF No Action pyridoxine (vitamin B6) 100 mg tablet 100 mg PO DAILY 90 Days Qty: 90 1RF atorvastatin 10 mg tablet 1 tab PO DAILY@1700 metformin 500 mg tablet extended release 24 hr 1 tab PO DAILY@1700 furosemide 40 mg tablet 40 mg PO DAILY Qty: 30 0RF oxycodone 5 mg tablet 5 mg PO Q6H PRN (Reason: severe pain (scale score 7-10)) Qty: 8 0RF Rx Instructions: Partial Fill upon patient request. cefuroxime axetil 500 mg tablet 500 mg PO BID 7 Days Qty: 14 0RF levothyroxine 112 mcg tablet 112 mcg PO DAILY omeprazole 20 mg capsule,delayed release(DR/EC) 20 mg PO DAILY@0630 lisinopril 10 mg tablet 10 mg PO DAILY cholecalciferol (vitamin D3) [Vitamin D3] 50 mcg (2,000 unit) tablet 50 mcg PO DAILY
[2023-04-12 14:13] VITALS: BP 113/59; PULSE 82; RESP 18; TEMP 36.1; O2SAT 99; BMI 35.7
[2023-04-12 14:30] LABS: MANUAL DIFF FLAG NO
[2023-04-12 14:32] LABS: Basophils Absolute Auto 0.1 X10*3/uL (0.0-0.2); Basophils Percent Auto 0.6 % (0-2); Eosinophils Absolute Auto 0.1 X10*3/uL (0.0-0.4); Eosinophils Percent Auto 1.1 % (0-4); Hematocrit 39.7 % (37.0-47.0); Imm Gran Pct Auto 1.1 % (0.0-0.4); Lymphocytes Absolute Auto 1.9 X10*3/uL (1.2-4.9); Lymphocytes Percent Auto 21.1 % (20-40); Mean Corpuscular HGB Conc 32.7 g/dl (31.0-35.0); Mean Corpuscular Hemoglobin 29.6 pg (27.0-33.0); Mean Corpuscular Volume 90.4 fL (80.0-98.0); Mean Platelet Volume 9.6 fL (9.4-12.3); Monocytes Absolute Auto 0.5 X10*3/uL (0.1-1.2); Monocytes Percent Auto 5.4 % (2-11); Neutrophils Absolute Auto 6.2 x10*3/uL (2.0-8.3); Neutrophils Percent Auto 70.7 % (45-73); Platelet Count 249 X10*3/uL (160-400); Red Blood Count 4.39 X10*6/uL (4.20-5.50); Red Cell Distribution Width 13.9 % (11.0-16.0); White Blood Count 8.8 X10*3/uL (4.8-10.8)
[2023-04-12 14:51] LABS: Alanine Aminotransferase 30 U/L (0-31); Albumin Level 3.7 g/dL (3.5-5.0); Alkaline Phosphatase 62 U/L (39-117); Anion Gap 11 (12-20); Aspartate Amino Transferase 37 U/L (5-31); Bilirubin Total 0.5 mg/dL (0.0-1.0); Blood Urea Nitrogen 16 mg/dL (9-16); Calcium 9.6 mg/dL (8.4-10.2); Carbon Dioxide 25 mmol/L (22-29); Chloride 104 mmol/L (96-108); Creatinine Clr Calc Pharmacy 35.7; Estimated Glomerular Filt Rate 34; Glucose Random 167 mg/dL (60-115); Lipase 15 U/L (8-78); Potassium 3.4 mmol/L (3.3-5.1); Sodium 137 mmol/L (135-145); Total Protein 8.1 g/dL (6.5-8.0)
[2023-04-12 15:21] LABS: Influenza A PCR NEGATIVE (Negative); Influenza B PCR NEGATIVE (Negative); Resp Syncy Virus RNA Qual PCR NEGATIVE (Negative); SARS COV2 PCR INHOUSE NEGATIVE (Negative)
[2023-04-12 15:23] LABS: Lactic Acid 2.5 mmol/L (0.5-2.0)
[2023-04-12 16:29] LABS: Reflex Lactate? Lactic Acid Added
[2023-04-12 17:46] LABS: ~Lactic Acid-LAB USE ONLY 2.1 mmol/L (0.5-2.0)
[2023-04-12 19:02] LABS: Reflex Lactate? 2 Y
[2023-04-12 19:44] VITALS: BP 146/57; PULSE 86; RESP 17; TEMP 36.5; O2SAT 97
[2023-04-12 19:54] LABS: ~Lactic Acid-LAB USE ONLY 2.1 mmol/L (0.5-2.0)
[2023-04-12 20:05] LABS: Appearance Urine Cloudy; Color Urine Yellow; Glucose Urine UA 100 mg/dL (Negative); Leukocyte Esterase Urine Large (3+) (Negative); Nitrite Urine Negative (Negative); UMIC TRIGGER UACC YES; Urine Blood Small (1+) (Negative); Urine Ketones Negative (Negative); Urine Protein 30 (1+) mg/dL (Neg-Trace)
[2023-04-12 20:10] LABS: Bacteria Urine 4+ (None Seen); Hyaline Casts Urine 0-2 /LPF (0-2); Squamous Epithelial Cell Urine 0-2 /HPF (0-2); UACC Culture Trigger YES; WBC Urine >50 /HPF (0-5)
[2023-04-12 20:22] VITALS: BP 148/54; PULSE 94; RESP 16; TEMP 36.7; O2SAT 97
[2023-04-12] MEDS: cefuroxime axetiL 500 MG TABLET PO (20:28)
== END 2023-04-12 20:38 | disposition home or self-care (01) ==
PROVIDERS: Physician Assistant; Emergency Provider Emergency Medicine; PCP Internal Medicine
DX: K63.2 Fistula of intestine (principal); R10.9 Unspecified abdominal pain; Z20.822 Contact with and (suspected) exposure to COVID-19; Z11.52 Encounter for screening for COVID-19; Z79.899 Other long term (current) drug therapy
CPT/HCPCS: 0241U; 80053; 81001; 83605; 83690; 85025; 87040; 87086; 99283; 99284

== ENCOUNTER 2023-04-20 11:29 | Outpatient (AMB) | payer MEDICARE, SELFPAY ==
--- NOTE | 2023-04-20 11:37 | MHC.OFFVIS ---
Intake Intake Visit Reasons: 6m/KUB(Pt has CT) LVM Intake Note: Patient presents today for a KUB follow-up Meds- Vitamin B6 Allergies to Antibiotic- Sulfa Blood Thinner- None Post Void Residual: 0ml Smoke Jumper Supervisor Required: No Accompanied by: Allergies chlorpheniramine [From TUSSIONEX] Allergy (Severe, Verified 04/20/23 11:49) HALLUCINATIONS escitalopram [ESCITALOPRAM] Allergy (Severe, Verified 04/20/23 11:49) DISSOCIATIVE REACTION fluoxetine [FLUOXETINE] Allergy (Severe, Verified 04/20/23 11:49) DISSOCIATIVE REACTION hydrocodone [From TUSSIONEX] Allergy (Severe, Verified 04/20/23 11:49) HALLUCINATIONS ibuprofen [IBUPROFEN] Allergy (Severe, Verified 04/20/23 11:49) THROAT SWELLING Sulfa (Sulfonamide Antibiotics) [SULFA (SULFONAMIDE ANTIBIOTICS)] Allergy (Severe, Verified 04/20/23 11:49) DYSPNEA clarithromycin [From BIAXIN] Allergy (Intermediate, Verified 04/20/23 11:49) ABD.PAIN duloxetine [DULOXETINE] Allergy (Intermediate, Verified 04/20/23 11:49) FACIAL NUMBNESS erythromycin base [ERYTHROMYCIN BASE] Allergy (Intermediate, Verified 04/20/23 11:49) RASH Penicillins [PENICILLINS] Allergy (Intermediate, Verified 04/20/23 11:49) RASH tetracycline [TETRACYCLINE] Allergy (Intermediate, Verified 04/20/23 11:49) DIARRHEA ciprofloxacin [From CIPRO] Allergy (Unknown, Verified 04/20/23 11:49) ANAPHYLAXIS codeine [CODEINE] Allergy (Unknown, Verified 04/20/23 11:49) TINNITIS guaifenesin Allergy (Unknown, Verified 04/20/23 11:49) Unknown levofloxacin [From Levaquin] Allergy (Unknown, Verified 04/20/23 11:49) Unknown pregabalin Allergy (Unknown, Verified 04/20/23 11:49) Unknown HPI HPI Comments History of Present Illness Details Xi is a pleasant female. She is a patient of Dr. Wang. She is seen for the following urologic conditions - nephrolithiasis - recurrent UTI Recent CT which shows collection draining She is dealing with left flank draining Question of possible urinoma leakage Recommend retrograde with stent placement Nephrolithiasis Multiple prior in admission for infection and staghorn - treatment had concurrent abscess 6 months after initial ureteroscopy Intervention - 03/31 right-sided ureteroscopy laser lithotripsy and stent placement - 06/28 completion right ureteroscopy with left ureteroscopy Stone composition - 03/31 Carbonate Apatite (Dahllite) 100% - 06/28 calcium oxalate Imaging - 03/31 CT scan 4 cm right staghorn calculus, 6 mm left Therapeutic plan - suppression antibiotics for recurrent UTI PFSH Medical History (Updated 05/08/23 @ 00:02 by Background Celine) Hydroureteronephrosis Wound infection Open wound of back, complicated Cellulitis Frequency of urination Vaginal burning Vaginal itching PMB (postmenopausal bleeding) Cirrhosis of liver Does mobilize using walker PONV (postoperative nausea and vomiting) Left foot drop Fatty liver Fibromyalgia Neuropathy RBBB Cholelithiasis Staghorn calculus Renal calculus, bilateral Renal calyceal dilation determined by ultrasound UTI (urinary tract infection) Diabetes mellitus, type II Ganglion cyst Plantar fasciitis Anxiety OA (osteoarthritis) Obstructive airway disease Hypercholesterolemia Low back pain Sciatica Hypothyroidism HTN (hypertension) Primary osteoarthritis of right knee Retained ureteral stent Renal stones Staghorn calculus Perirectal abscess Surgical History Status post cystoscopy with ureteral stent placement History of lumbar discectomy History of lumpectomy of both breasts History of cystoscopy History of lithotripsy Hx of colonoscopy History of surgery Family History Father Alcohol dependence Mother CHF (congestive heart failure) Cancer of breast Mother No problems noted. Other Alcoholic cirrhosis Social History Household Members: None Housing: House Do you presently have visiting nurse or other home services: No Alcohol intake: never Comment: given pyridium Patient Tobacco Use Status: Former Tobacco user Quit Date: 1986 Tobacco use type: Cigarette Years Smoked: 27 Second Hand Smoke Exposure: No Advance Directives Date on File: 04/06/21 service: No Current occupational status: disabled Review of Systems Const Denies chills and Denies fever(s) Card Reports no additional complaints and Denies syncope Resp Denies cough GI Denies abdominal pain and Denies heartburn Reports as per HPI and Denies change in libido Neuro Denies syncope Psych Denies change in libido Endo Denies change in libido Physical Exam Const General: cooperative, healthy appearing, comfortable and no acute distress Orientation/consciousness: patient oriented x3 HEENT Face and sinus: Yes normal facial exam Mouth: moist mucous membranes Neck Neck: Yes normal visual inspection, Yes full ROM and Yes trachea midline Chest Chest palpation & inspection: normal inspection of the chest Resp Effort & Inspection: normal respiratory effort, able to speak in complete sentences and no respiratory distress GI Inspection: Yes normal to inspection Back/Spine/Pelvis Cervical Spine: normal cervical lordosis Thoracic/Lumbar Spine: thoracic and lumbar spine normal to inspection Skin General skin exam: no rashes or lesions noted Neuro General: patient oriented x3, gait normal, tone normal and moves all extremities Extrem General: Yes normal to inspection and Yes capillary refill normal Office Procedures Post Void Residual Post Residual Void Post Void Residual (PVR): 0 [id number]-[id number] Void Residual by ultrasound Assessment & Plan Assessment & Plan (1) Abscess, retroperitoneal: Code(s): K68.19 - Other retroperitoneal abscess (2) Retroperitoneal fluid collection: Code(s): R18.8 - Other ascites Plan Risks, benefits and alternatives to therapy were discussed. These include but are not limited to infection, bleeding, damage to local organs and tissues, need for further interventions. Anesthetic risks regarding cardiac arrhythmia, blood clots, and potential mortality were discussed. The patient understands the typical recovery time and the outpatient nature of the procedure. After consideration of these risks the patient gives full informed consent and they wish to move ahead with the procedure. Cystoscopy with right retrograde stent placement Orders: Orders AMB Post Void Residual by ultrasound 04/20/23 R33.9 - Retention of urine, unspecified Patient Instructions: Imaging studies, laboratory and physical exam results were discussed and reviewed in detail. No major barriers to patient understanding were identified. An opportunity to ask questions regarding the treatment plan was provided. All questions were answered. The patient expressed understanding and agreement with the above treatment plan. The patient is aware they should contact our office by phone for worsening of their current condition or the appearance of new urologic symptoms. Compliance is encouraged with any medications and followup testing that is ordered. It is a privilege to participate in the urologic care of your patient. If you have any questions or concerns regarding treatment for the above conditions, or other urologic issues, please do not hesitate to contact me. The office telephone contact is [phone]. This note is constructed using voice recognition software. While every effort has been made to ensure accuracy geophysical prospecting permit agent errors may have been included. Yours sincerely, Dr Jose Reis MD, [facility] - Urology Providers of Expert, Compassionate Care for the Genitourinary System Coding Level of Care Code Est Pt Level 4 (01184) Diagnoses Abscess, retroperitoneal K68.19 Retroperitoneal fluid collection R18.8 CPT Codes Post Residual Void - PVR CPT Code: 36519-Dphb Void Residual by ultrasound ([id number])
== END 2023-04-20 12:16 | disposition home or self-care (01) ==
PROVIDERS: PCP Internal Medicine; Visit Provider Urology
DX: K68.19 Other retroperitoneal abscess (principal); R18.8 Other ascites
CPT/HCPCS: 99214

== ENCOUNTER → 2023-04-20 11:29 | Outpatient (BNVA) | payer MEDICARE, SELFPAY | PROVIDERS: PCP Internal Medicine; Visit Provider Urology | DX: R33.9 Retention of urine, unspecified (principal); N20.0 Calculus of kidney | CPT/HCPCS: 51798; 99212 ==

== ENCOUNTER 2023-04-24 15:03 | Inpatient (IN) | payer MEDICARE, SELFPAY ==
--- NOTE | ~2023-04-24 | CT_ITS ---
EXAMINATION: CT CHEST WITH CONTRAST CLINICAL INFORMATION: Pneumonia. Fever COMPARISON: Chest x-ray earlier same day TECHNIQUE: Multidetector volumetric CT imaging of the chest was obtained after the administration of 85 mL of Omnipaque 350 intravenous contrast without immediate adverse reactions. Axial MIP volume rendering provided. Sagittal and coronal reformatted images were obtained. This CT examination was performed using dose optimization techniques as appropriate, variously including the following: *Automated exposure control *Adjustment of mA and/or kV according to patient size (this includes techniques or standardized protocols for targeted exams where dose is matched to indication/reason for exam; i.e. extremities or head) *Use of iterative reconstruction technique DLP: 408 mGy-cm FINDINGS: RADIATOR MECHANIC: No consolidation or edema. LUNGS: No abnormality the trachea or mainstem bronchi. No focal pneumonia or generalized edema. Scattered micronodules all of which measure less than 0.4 cm. In a low risk patient this does not require any further evaluation. MEDIASTINUM: No enlarged mediastinal or hilar lymph nodes. No suspicious abnormality esophagus. There is mild coronary calcification. There is some calcification of the mitral annulus in the region of the aortic valve. The main pulmonary arteries are normal caliber. There is no significant pericardial fluid. PLEURA: There is no pleural effusion. No pleural mass or thickening. AXILLA: No lymphadenopathy. UPPER ABDOMEN: Possible slight nodularity of the liver contour. The abdomen is reported upon separately. OSSEOUS STRUCTURES: No suspicious focal lesion. Bridging osteophytes or syndesmophytes resulting in a rigid thoracic spine. CT/CT chest w IV con IMPRESSION: No focal pneumonia or edema. Scattered micronodules. In a low risk patient this does not require specific imaging follow-up Fleischner guidelines were followed.
--- NOTE | ~2023-04-24 | FL_ITS ---
EXAMINATION: FL SINUS TRACT INJECTION CLINICAL INFORMATION: 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 Patient underwent subsequent for percutaneous drainage. Using continues to have drainage from the old drainage catheter site. COMPARISON: CT scan 04/24/2023 TECHNIQUE: 50 mL of Omnipaque 300 was injected through a 6 Surinamese dilator through the open right flank wound. Spot images were performed FINDINGS: A right ureteral stent is present. Contrast is observed tracking through the abdominal wall and into the right retroperitoneal abscess cavity. No communication with the right kidney or collecting system, nor ureter. Contrast then tracks down the right iliopsoas muscle, possibly in the region of bursitis. It does not progress beyond the superior acetabulum. FL/FL fistula/abscess/sinus tract IMPRESSION: 1. Fistulous tract between the skin and the right retroperitoneal abscess cavity. There is no direct fistula to the right kidney, collecting system, or ureter. The contrast then tracks down to the right along the iliopsoas bursa. 2. Right ureteral stent present. This procedure was performed by Gilbert Heath PA-C, and supervised by Dr. Otto
--- NOTE | ~2023-04-24 | FL_ITS ---
EXAMINATION: XR FLUOROSCOPY WITH IMAGES CLINICAL INFORMATION: Right-sided retrograde urethrogram and stent placement COMPARISON: CT abdomen from 04/24/2023 TECHNIQUE: Fluoroscopy Supervised By: Gilbert Heath. Fluoroscopy Time: 0 minutes 50 seconds. Cumulative Dose: 630.924 mGy. DAP: 862.5 Gycm2. Images: 4. FINDINGS: There is retrograde urethrogram and placement of right ureteral stent. Multiple stones seen in the lower segment of the right kidney FL/FL guidance in OR IMPRESSION: Successful placement of right ureteral stent
--- NOTE | ~2023-04-24 | CT_ITS ---
EXAMINATION: CT ABDOMEN AND PELVIS WITH CONTRAST CLINICAL INFORMATION: Evaluate for renal abscess. COMPARISON: Portions of a previous study 04/04/23 TECHNIQUE: Multidetector volumetric images were obtained from the superior aspect of the liver through the pubic symphysis following administration 85 mL of Omnipaque 350 intravenous contrast. Sagittal and coronal reformatted images were obtained on the technologist's workstation. Oral contrast: No This CT examination was performed using dose optimization techniques as appropriate, variously including the following: *Automated exposure control *Adjustment of mA and/or kV according to patient size (this includes techniques or standardized protocols for targeted exams where dose is matched to indication/reason for exam; i.e. extremities or head) *Use of iterative reconstruction technique DLP: 812 mGy-cm FINDINGS: LUNG BASES: The chest is reported upon separately. Small nodular densities in left breast are nonspecific. LIVER, GALLBLADDER, AND BILIARY TREE: The liver has a micronodular contour. There is fatty change. No suspicious focal liver lesion. There are large gallstones present. The gallbladder is mildly distended. PANCREAS: No definite pancreatic mass. SPLEEN: Within normal limits ADRENAL GLANDS: Within normal limits KIDNEYS AND URETERS: There are some tiny probable cysts in the left kidney. The left nephrogram is homogeneous. There are several nonobstructing lower pole left renal calculi approximately 14.3 cm from the skin. The right renal contour is irregular. There are areas of scarring. There may be a partial staghorn calculus in the lower pole collecting system. There is a confluent 1.9 cm calculus in the mid right kidney 14.2 cm from the skin. Additional calcifications in the interpolar and lower pole collecting systems. There is a fairly circumscribed low attenuating 2.1 cm collection adjacent to the lower pole of the right kidney. There is some adjacent stranding. This is not significantly changed. There is some low attenuation within the right psoas. There is a tract extending from the lower pole kidney through the region of the fluid collection through the retroperitoneum and into the right flank soft tissues likely extending to the skin. This likely represents a tract from previous percutaneous access. There is an upper pole cyst which does not require any further evaluation. BLADDER: No definite focal bladder abnormality. There are indistinct tissue planes between the sigmoid and the dome of the bladder. No definite gas within the bladder. GASTROINTESTINAL TRACT: There is wall thickening with luminal narrowing in the sigmoid colon. There is irregular thickening and some surrounding stranding. As described this is inseparable from the bladder and vaginal fornices. There is some surrounding stranding. The stomach is collapsed. No small bowel dilation. ABDOMINAL WALL: There is a fat-containing ventral abdominal wall hernia LYMPH NODES: No measurably enlarged lymph nodes. No free intraperitoneal fluid VASCULAR: There is no abdominal aortic aneurysm. The portal vein enhances. PELVIC VISCERA: The uterus is not demonstrated. As described there is indistinct tissue planes between the sigmoid colon, vaginal fornices and bladder. OSSEOUS STRUCTURES: Marked degenerative change in the spine. CT/CT abdomen pelvis w IV con IMPRESSION: There is an abnormality in the sigmoid colon with irregular wall thickening and surrounding stranding. Indistinct tissue planes between the vaginal fornix, bladder and colon. Recommend endoscopic assessment. Malignancy is not excluded. There is an unchanged collection adjacent to the lower right kidney. Moderate to marked stone burden greater on the right kidney than left. There is a tract from the kidney through the right flank soft tissues to the skin. There is some abnormal attenuation in the right psoas. No large undrained collection. Micronodular liver contour suggests underlying chronic liver disease. Fleischner guidelines were followed.
--- NOTE | ~2023-04-24 | XR_ITS ---
EXAMINATION: XR CHEST CLINICAL INFORMATION: Reason for Exam chest pain COMPARISON: Chest radiograph 06/28/2016 TECHNIQUE: 2 views of the chest FINDINGS: Lines and tubes: None. Clear lungs. No pleural effusion. No pneumothorax. Unchanged cardiomediastinal silhouette. XR/XR chest 2V IMPRESSION: * Clear lungs.
--- NOTE | 2023-04-24 15:05 | ECG_ITS ---
Test Reason : CP Blood Pressure : / mmHG Vent. Rate : 090 BPM Atrial Rate : 090 BPM P-R Int : 202 ms QRS Dur : 114 ms QT Int : 366 ms P-R-T Axes : 011 038 019 degrees QTc Int : 447 ms Normal sinus rhythm Right bundle branch block Cannot rule out Inferior infarct , age undetermined Abnormal ECG When compared with ECG of 05-APR-2021 20:13, QT has shortened Referred By: Silvia Iyer Electronically Signed By:SUSSY BOSS
--- NOTE | 2023-04-24 15:05 | ED_ITS ---
HPI - General Adult General Chief complaint: General Medical Stated complaint: fever, headache, chest pain, mult. complaints Time Seen by Provider: 04/24/23 18:20 Source: patient Mode of arrival: ambulatory Limitations: no limitations History of Present Illness HPI narrative: 78-year-old female with past medical history UTIs, renal abscess, chronic open wound of the back presents to the ED fever, chills, and cough for a couple of days. Patient denies any dysuria, hematuria, or rash. Related Data Home Medications Medication Instructions Recorded Confirmed levothyroxine 112 mcg tablet 112 mcg PO DAILY 08/28/20 04/25/23 atorvastatin 10 mg tablet 1 tab PO DAILY@0 04/05/21 04/25/23 metformin 500 mg tablet,extended 1 tab PO DAILY@169904/06/21 04/25/23 release 24 hr cholecalciferol (vitamin D3) 50 50 mcg PO DAILY 07/19/22 04/25/23 mcg (2,000 unit) tablet (Vitamin D3) lisinopril 10 mg tablet 10 mg PO DAILY 07/19/22 04/25/23 pyridoxine (vitamin B6) 100 mg 100 mg PO DAILY 04/25/23 04/25/23 tablet Previous Rx's Medication Instructions Recorded furosemide 40 mg tablet 40 mg PO DAILY #30 tabs 12/16/21 Allergies Allergy/AdvReac Type Severity Reaction Status Date / Time chlorpheniramine Allergy Severe HALLUCINATI Verified 04/20/23 11:49 [From TUSSIONEX] ONS escitalopram [ESCITALOPRAM] Allergy Severe DISSOCIATIVE Verified 04/20/23 11:49 REACTION fluoxetine [FLUOXETINE] Allergy Severe DISSOCIATIVE Verified 04/20/23 11:49 REACTION hydrocodone [From TUSSIONEX] Allergy Severe HALLUCINATI Verified 04/20/23 11:49 ONS ibuprofen [IBUPROFEN] Allergy Severe THROAT Verified 04/20/23 11:49 SWELLING Sulfa (Sulfonamide Allergy Severe DYSPNEA Verified 04/20/23 11:49 Antibiotics) [SULFA (SULFONAMIDE ANTIBIOTICS)] clarithromycin [From BIAXIN] Allergy Intermediate ABD.PAIN Verified 04/20/23 11:49 duloxetine [DULOXETINE] Allergy Intermediate FACIAL Verified 04/20/23 11:49 NUMBNESS erythromycin base Allergy Intermediate RASH Verified 04/20/23 11:49 [ERYTHROMYCIN BASE] Penicillins [PENICILLINS] Allergy Intermediate RASH Verified 04/20/23 11:49 tetracycline [TETRACYCLINE] Allergy Intermediate DIARRHEA Verified 04/20/23 11:49 ciprofloxacin [From CIPRO] Allergy Unknown ANAPHYLAXIS Verified 04/20/23 11:49 codeine [CODEINE] Allergy Unknown TINNITIS Verified 04/20/23 11:49 guaifenesin Allergy Unknown Unknown Verified 04/20/23 11:49 levofloxacin [From Levaquin] Allergy Unknown Unknown Verified 04/20/23 11:49 pregabalin Allergy Unknown Unknown Verified 04/20/23 11:49 Review of Systems 2 Review of Systems: Fever cough and chills. Yes all other systems are reviewed and are negative [facility] Past Medical History Medical History (Updated 04/25/23 @ 11:55 by JOSE ROBERTO Peñaloza) Frequency of urination Vaginal burning Vaginal itching PMB (postmenopausal bleeding) Cirrhosis of liver Does mobilize using walker PONV (postoperative nausea and vomiting) Left foot drop Fatty liver Fibromyalgia Neuropathy RBBB Cholelithiasis Staghorn calculus Renal calculus, bilateral Renal calyceal dilation determined by ultrasound UTI (urinary tract infection) Diabetes mellitus, type II Ganglion cyst Plantar fasciitis Anxiety OA (osteoarthritis) Obstructive airway disease Hypercholesterolemia Low back pain Sciatica Hypothyroidism HTN (hypertension) Primary osteoarthritis of right knee Retained ureteral stent Renal stones Staghorn calculus Perirectal abscess Surgical History Status post cystoscopy with ureteral stent placement History of lumbar discectomy History of lumpectomy of both breasts History of cystoscopy History of lithotripsy Hx of colonoscopy History of surgery Family History Family History Father Alcohol dependence Mother CHF (congestive heart failure) Cancer of breast Mother No problems noted. Other Alcoholic cirrhosis Social History Social History Household Members: Spouse Housing: House Do you presently have visiting nurse or other home services: No Alcohol intake: never Comment: refuses bed alarm. Walks w/ walker w/ supervision from . Patient Tobacco Use Status: Former Tobacco user Quit Date: 1986 Tobacco use type: Cigarette Years Smoked: 27 Smoked in Last 30 Days: No Second Hand Smoke Exposure: No Use of substances other than those prescribed or required for medical reasons: No Are you DNR?: No Advance Directives: Yes Advance Directives on File: Yes Advance Directives Date on File: 04/06/21 Nutrition Risks: No Nutritional Risk service: No Current occupational status: disabled Physical Exam ED Vital Signs: Vital Signs - 24 hr 04/24/23 17:48 04/24/23 18:13 04/24/23 19:21 Temperature 98.5 F 98.5 F 99.8 F Pulse Rate 89 87 Respiratory Rate 16 16 Blood Pressure 126/59 L 151/60 H Pulse Oximetry 97 99 Oxygen Delivery Method Room Air Room Air 04/24/23 19:33 04/24/23 22:12 Temperature 99.3 F 100.6 F H Pulse Rate 85 93 Respiratory Rate 20 14 Blood Pressure 131/62 154/55 H Pulse Oximetry 96 96 Oxygen Delivery Method Room Air Room Air BMI result Body Mass Index 36.0 Const General: cooperative, healthy appearing, comfortable, no acute distress, well developed, alert, awake and Physically active Orientation/consciousness: oriented to person, oriented to place, oriented to time and patient oriented x3 HENMT Head: Yes normal to inspection, Yes No palpable skull fracture present, Yes normocephalic and Yes atraumatic Eyes General: appearance normal, both eyes and all related structures Neck Neck: Yes normal visual inspection, Yes full ROM, Yes no lymphadenopathy, Yes no meningeal signs, Yes trachea midline, Yes supple, No anterior neck swelling and No tender Chest Chest palpation & inspection: normal inspection of the chest and normal palpation of entire chest wall Resp Effort & Inspection: normal respiratory effort and able to speak in complete sentences Auscultation: clear to auscultation bilaterally Cardio Jugular venous distension: no JVD Heart sounds: S1 normal heart sound present and S2 normal heart sound present GI Inspection: Yes normal to inspection Palpation (GI): Soft to palpation, not firm, Tenderness to palpation present (GI) (Right-sided abdominal tenderness), no guarding and not rigid General: No CVA tenderness and Yes no CVA tenderness Back/Spine/Pelvis Other: Right flank small open wound present for the past 2 years with awakens present negative for any redness or tenderness, but has some drainage. Back: no CVA tenderness, No CVA tenderness and No back tenderness Skin General skin exam: no rashes or lesions noted, elasticity normal and turgor normal Neuro General: oriented to person, oriented to place, oriented to time, patient oriented x3, gait normal, tone normal, moves all extremities, Normal light touch and pain sensation, no meningeal signs, no focal motor deficits, CN's II-XI intact bilaterally and normal sensation to monofilament Extrem General: Yes normal to inspection, Yes full ROM and Yes capillary refill normal Psych Appearance: grossly normal, well kempt and not disheveled Course Course Course Narrative: This is a rapid medical exam: Additional HPI, ROS, PE not included below will be deferred to primary provider. Patient is a 78-year-old female with history of T2DM, HTN, hypothyroidism, RBBB, staghorn calculi of kidney, scheduled for a procedure with Dr. Reis tomorrow presenting to the ED with complaint of fever and cough since last night. Febrile in triage and shivering, Tylenol ordered. Also reports cough and chest pain. Plan: EKG, labs, viral swabs, UA Medications Administered Generic Name Dose Route Start Last Admin Trade Name Freq PRN Reason Stop Dose Admin Acetaminophen 650 mg 04/25/23 00:39 04/25/23 10:51 Acetaminophen 325 Mg Tablet PO 650 mg Q6H PRN Administration Pain, Mild (Pain Scale 1-3) Piperacillin Sod/Tazobactam 100 mls @ 200 mls/hr 04/25/23 00:45 04/25/23 10:16 Sod 4.5 gm/ Sodium Chloride IV Infused Q8H NOHELIA Infusion Sodium Chloride 1,000 mls @ 100 mls/hr 04/25/23 11:45 04/25/23 11:55 Ns IVCONT 100 mls/hr .Q10H NOHELIA Administration Insulin Human Lispro 0 unit 04/25/23 07:30 04/25/23 13:15 Insulin Lispro 100 Unit/Ml 3 Ml Vial SUBCUT Not Given QIDACHS [facility] Protocol Sodium Chloride 3 ml 04/25/23 08:00 04/25/23 08:45 0.9 % Sodium Chloride Flush 3 Ml Syringe IVFLUSH 3 ml QSHIFT NOHELIA Administration Discontinued Medications Generic Name Dose Route Start Last Admin Trade Name Freq PRN Reason Stop Dose Admin Acetaminophen 975 mg 04/24/23 15:07 04/24/23 15:12 Acetaminophen 325 Mg Tablet PO 04/24/23 15:08 975 mg ONCE ONE Administration Acetaminophen 650 mg 04/24/23 22:39 04/24/23 23:46 Acetaminophen 325 Mg Tablet PO 04/24/23 22:40 650 mg ONCE ONE Administration Diphenhydramine HCl 25 mg 04/25/23 01:35 04/25/23 02:00 Diphenhydramine Hcl 50 Mg/Ml Vial IVPUSH 04/25/23 01:36 25 mg ONCE ONE Administration Sodium Chloride 1,000 mls @ 999 mls/hr 04/24/23 21:57 04/25/23 02:11 Ns IV 04/24/23 22:57 Infused .Q1H1M STA Infusion Vancomycin HCl 1,000 mg/ 535 mls @ 267.5 mls/hr 04/25/23 00:39 04/25/23 02:10 Vancomycin HCl 750 mg/ Sodium IV 04/25/23 02:38 Not Given Chloride ONCE ONE Vancomycin HCl 2,000 mg in 500 mls @ 250 mls/hr 04/25/23 01:00 04/25/23 05:00 Vancomycin/Ns IV 04/25/23 02:59 Infused ONCE ONE Infusion Sodium Chloride 1,000 mls @ 999 mls/hr 04/25/23 12:00 04/25/23 13:16 Ns IV 04/25/23 13:00 999 mls/hr .Q1H1M NOHELIA Administration Iohexol 100 ml 04/24/23 21:11 04/24/23 21:13 Iohexol 350 Mg/Ml 100 Ml Infus..Btl IV 04/24/23 21:12 85 ml ONCE ONE Administration Medical Decision Making Medical Decision Making MDM Narrative: 78-year-old female presents to ED for fever chills coughing states during evaluation she is supposed to have a procedure tomorrow by urologist Dr. Reis to evaluate and drain renal abscess as near bladder which has been present for the past couple of months. Patient has some mild abdominal pain. Was sent for CT scan of the abdomen to rule out worsening abscess. Initial chest x-ray normal. Initial labs normal. UA shows chronic hematuria and white blood cell without any bacteria. 11;17pm: CT scan shows reading of sigmoid colon thickening. Diverticulitis? CT scan shows chronic renal collection with some right psoas changes but no abscess collection. Will contact hospitalist to see if admitted to his service and for recommendations in terms of treatment. Dr. Patrick States he will come and evaluate the patient. 12:00am; patient admitted to the hospital by Dr. Nguyen who states most likely wound on patient's flank were prior stent was placed is infected. He was admitted and start antibiotics. Patient agreeable to admission. Differential Diagnosis Differential Diagnoses: The differential diagnosis associated with the presentation includes (Abscess, diverticulitis, UTI.) Admission/Observation Consideration of admission/observation: Escalation of care including admission/observation considered Consult Healthcare Provider Management of the patient was discussed with: Hospitalist (Dr. Nguyen) Lab Data MDM Lab Attestation statement: I reviewed the patient's lab results. 04/25/23 04:32 04/25/23 04:32 Labs: Lab Results 04/24/23 Range/Units 15:27 WBC 9.3 (4.8-10.8) X10*3/uL RBC 4.28 (4.20-5.50) X10*6/uL Hgb 12.4 (12.0-16.0) g/dl Hct 38.2 (37.0-47.0) % MCV 89.3 (80.0-98.0) fL MCH 29.0 (27.0-33.0) pg MCHC 32.5 (31.0-35.0) g/dl RDW 14.5 (11.0-16.0) % Plt Count 212 (160-400) X10*3/uL MPV 9.5 (9.4-12.3) fL Immature Gran % (Auto) 1.2 H (0.0-0.4) % Neut % (Auto) 81.6 H (45-73) % Lymph % (Auto) 10.6 L (20-40) % [place] % (Auto) 5.7 (2-11) % Eos % (Auto) 0.5 (0-4) % Baso % (Auto) 0.4 (0-2) % Lymph # (Auto) 1.0 L (1.2-4.9) X10*3/uL [place] # (Auto) 0.5 (0.1-1.2) X10*3/uL Eos # (Auto) 0.1 (0.0-0.4) X10*3/uL Baso # (Auto) 0.0 (0.0-0.2) X10*3/uL Abs Immat Gran (auto) 0.11 H (0.00-0.03) X10*3/uL Absolute Neuts (auto) 7.6 (2.0-8.3) x10*3/uL Absolute Nucleated RBC 0.000 (0.0-0.012) X10*3/uL Nucleated RBC % (auto) 0.0 (0.0-0.2) /100WBC Sodium 137 (135-145) mmol/L Potassium 3.8 (3.3-5.1) mmol/L Chloride 102 (96-108) mmol/L Carbon Dioxide 23 (22-29) mmol/L Anion Gap 16 (12-20) BUN 23 H (9-16) mg/dL Creatinine 1.37 (0.5-1.4) mg/dL Estim Creat Clear Calc 39.1 Estimated GFR 37 Random Glucose 141 H (60-115) mg/dL Calcium 9.0 D (8.4-10.2) mg/dL Total Bilirubin 0.5 (0.0-1.0) mg/dL AST 38 H (5-31) U/L ALT 33 H (0-31) U/L Alkaline Phosphatase 70 (39-117) U/L Total Protein 7.5 (6.5-8.0) g/dL Albumin 3.6 (3.5-5.0) g/dL Urine Color Yellow Urine Appearance Clear Urine pH 6.0 (5.0-9.0) Ur Specific [place] 1.010 (1.005-1.025) Urine Protein Negative (Neg-Trace) mg/dL Urine Glucose (UA) Negative (Negative) mg/dL Urine Ketones Negative (Negative) mg/dL Urine Blood Moderate (2+) H (Negative) Urine Nitrite Negative (Negative) Ur Leukocyte Esterase Moderate (2+) H (Negative) Urine RBC 11-20 H (0-2) /HPF Urine WBC 11-20 H (0-5) /HPF Ur Squamous Epith Cells 0-2 (0-2) /HPF Urine Bacteria None Seen (None Seen) Hyaline Casts 0-2 (0-2) /LPF Influenza Type A (PCR) NEGATIVE (Negative) Influenza Type B (PCR) NEGATIVE (Negative) RSV RNA Qual (PCR) NEGATIVE (Negative) SARS-CoV-2 RNA (RT-PCR) NEGATIVE (Negative) Independent Interpretation I performed an independent interpretation of an: CT Scan Radiology Impression Discussion of test interpretation with radiology: I have reviewed the radiologist's reading. External Record Review External record reviewed: Other (Prior visits) Discharge Plan Discharge Clinical Impression: Wound infection Patient Disposition: Admitted As Inpatient Discharge Date/Time: 04/25/23 15:22
[2023-04-24 15:07] VITALS: BP 146/59; PULSE 92; RESP 16; TEMP 38.7; O2SAT 99; BMI 36.0
[2023-04-24] MEDS: Acetaminophen 325 MG TABLET 975 MG PO (15:12)
[2023-04-24 15:32] LABS: MANUAL DIFF FLAG NO
[2023-04-24 15:34] LABS: Basophils Percent Auto 0.4 % (0-2); Eosinophils Absolute Auto 0.1 X10*3/uL (0.0-0.4); Eosinophils Percent Auto 0.5 % (0-4); Hematocrit 38.2 % (37.0-47.0); Hemoglobin 12.4 g/dl (12.0-16.0); Imm Gran Abs Auto 0.11 X10*3/uL (0.00-0.03); Imm Gran Pct Auto 1.2 % (0.0-0.4); Lymphocytes Percent Auto 10.6 % (20-40); Mean Corpuscular HGB Conc 32.5 g/dl (31.0-35.0); Mean Corpuscular Volume 89.3 fL (80.0-98.0); Mean Platelet Volume 9.5 fL (9.4-12.3); Monocytes Absolute Auto 0.5 X10*3/uL (0.1-1.2); Monocytes Percent Auto 5.7 % (2-11); Neutrophils Absolute Auto 7.6 x10*3/uL (2.0-8.3); Neutrophils Percent Auto 81.6 % (45-73); Platelet Count 212 X10*3/uL (160-400); Red Blood Count 4.28 X10*6/uL (4.20-5.50); Red Cell Distribution Width 14.5 % (11.0-16.0); White Blood Count 9.3 X10*3/uL (4.8-10.8)
[2023-04-24 15:39] LABS: Appearance Urine Clear; Color Urine Yellow; Glucose Urine UA Negative (Negative); Leukocyte Esterase Urine Moderate (2+) (Negative); Nitrite Urine Negative (Negative); UMIC TRIGGER UACC YES; Urine Blood Moderate (2+) (Negative); Urine Ketones Negative (Negative); Urine Protein Negative (Neg-Trace)
[2023-04-24 15:44] LABS: Bacteria Urine None Seen (None Seen); Hyaline Casts Urine 0-2 /LPF (0-2); Squamous Epithelial Cell Urine 0-2 /HPF (0-2); UACC Culture Trigger YES
[2023-04-24 16:01] LABS: Alanine Aminotransferase 33 U/L (0-31); Albumin Level 3.6 g/dL (3.5-5.0); Alkaline Phosphatase 70 U/L (39-117); Anion Gap 16 (12-20); Aspartate Amino Transferase 38 U/L (5-31); Bilirubin Total 0.5 mg/dL (0.0-1.0); Blood Urea Nitrogen 23 mg/dL (9-16); Carbon Dioxide 23 mmol/L (22-29); Chloride 102 mmol/L (96-108); Creatinine Clr Calc Pharmacy 39.1; Estimated Glomerular Filt Rate 37; Glucose Random 141 mg/dL (60-115); Potassium 3.8 mmol/L (3.3-5.1); Sodium 137 mmol/L (135-145); Total Protein 7.5 g/dL (6.5-8.0)
[2023-04-24 16:14] LABS: Influenza A PCR NEGATIVE (Negative); Influenza B PCR NEGATIVE (Negative); Resp Syncy Virus RNA Qual PCR NEGATIVE (Negative); SARS COV2 PCR INHOUSE NEGATIVE (Negative)
[2023-04-24 17:48] VITALS: BP 126/59; PULSE 89; RESP 16; TEMP 36.9; O2SAT 97
--- NOTE | 2023-04-24 17:57 | PC.NURSE ---
Patient c/o fever/chills/body aches since last night. No fever presently, VS WNL, denies pain at this time. States she's been a longtime patient of Dr. Reis and is scheduled to have a short stay procedure with Dr. Reis tomorrow.
[2023-04-24 18:13] VITALS: TEMP 36.9
[2023-04-24 19:21] VITALS: BP 151/60; PULSE 87; RESP 16; TEMP 37.7; O2SAT 99
[2023-04-24 19:33] VITALS: BP 131/62; PULSE 85; RESP 20; TEMP 37.4; O2SAT 96
[2023-04-24] MEDS: iohexoL 350 MG/ML 100 ML INFUS..BTL IV (21:13)
[2023-04-24] MEDS: 0.9 % Sodium Chloride 1,000 ML 999 ML IV (22:09)
[2023-04-24 22:12] VITALS: BP 154/55; PULSE 93; RESP 14; TEMP 38.1; O2SAT 96
[2023-04-24] MEDS: Acetaminophen 325 MG TABLET 650 MG PO (23:46)
[2023-04-25] VITALS (9 sets, daily range): BP systolic 115–153; BP diastolic 55–94; PULSE 83–94; RESP 15–24; TEMP 36.5–37.9; O2SAT 93–97; BMI 37.0
--- NOTE | 2023-04-25 00:42 | P.HPHOSP_ITS ---
History of Present Illness Date of Service: 04/25/23 Chief Complaint: Fever This is a 78-year-old female with pertinent history of history of retroperitoneal abscess, hypothyroidism, who-mytuayr-xofytvrsz diabetes mellitus, mood disorder who presents to the emergency department for evaluation of fevers. Patient states she started having fevers and chills 1 day prior to presentation. States she has generalized malaise and fatigability. Patient has a chronic open wound of the back and the takes care of it. The does state that he has noticed intermittent purulent drainage from the open wound that is foul-smelling. No cough, abdominal pain, dysuria. Patient states she supposed to have a procedure with Dr. Reis for her kidney stones, history of renal abscess on 04/25. No chest discomfort, palpitations, shortness of breath, changes in urinary or bowel habits. In the emergency department, patient was found to be septic. Imaging with 2.1 cm collection adjacent to the lower pole of the right kidney. Also right kidney calculus noted Review of Systems 2 Constitutional: Constitutional: Reports chills and Reports fever(s) Cardiovascular: Cardiovascular: Reports no additional cardiovascular complaints Respiratory: Respiratory: Reports no additional respiratory complaints Gastrointestinal: Gastrointestinal: Reports no additional gastrointestinal complaints Genitourinary: Genitourinary: Reports no additional female genitourinary complaints [facility] History Frequency of urination Vaginal burning Vaginal itching PMB (postmenopausal bleeding) Cirrhosis of liver Does mobilize using walker PONV (postoperative nausea and vomiting) Left foot drop Fatty liver Fibromyalgia Neuropathy RBBB Cholelithiasis Staghorn calculus Renal calculus, bilateral Renal calyceal dilation determined by ultrasound UTI (urinary tract infection) Diabetes mellitus, type II Ganglion cyst Plantar fasciitis Anxiety OA (osteoarthritis) Obstructive airway disease Hypercholesterolemia Low back pain Sciatica Hypothyroidism HTN (hypertension) Primary osteoarthritis of right knee Retained ureteral stent Renal stones Staghorn calculus Perirectal abscess Family History Father Alcohol dependence Mother CHF (congestive heart failure) Cancer of breast Mother No problems noted. Other Alcoholic cirrhosis Surgical History Status post cystoscopy with ureteral stent placement History of lumbar discectomy History of lumpectomy of both breasts History of cystoscopy History of lithotripsy Hx of colonoscopy History of surgery Social History Household Members: Spouse Housing: House Do you presently have visiting nurse or other home services: No Alcohol intake: never Comment: refuses bed alarm. Walks w/ walker w/ supervision from . Patient Tobacco Use Status: Former Tobacco user Quit Date: 1986 Tobacco use type: Cigarette Years Smoked: 27 Smoked in Last 30 Days: No Second Hand Smoke Exposure: No Use of substances other than those prescribed or required for medical reasons: No Advance Directives: Yes Advance Directives on File: Yes Advance Directives Date on File: 04/06/21 service: No Current occupational status: disabled Meds Allergies Allergy/AdvReac Type Severity Reaction Status Date / Time chlorpheniramine Allergy Severe HALLUCINATI Verified 04/20/23 11:49 [From TUSSIONEX] ONS escitalopram [ESCITALOPRAM] Allergy Severe DISSOCIATIVE Verified 04/20/23 11:49 REACTION fluoxetine [FLUOXETINE] Allergy Severe DISSOCIATIVE Verified 04/20/23 11:49 REACTION hydrocodone [From TUSSIONEX] Allergy Severe HALLUCINATI Verified 04/20/23 11:49 ONS ibuprofen [IBUPROFEN] Allergy Severe THROAT Verified 04/20/23 11:49 SWELLING Sulfa (Sulfonamide Allergy Severe DYSPNEA Verified 04/20/23 11:49 Antibiotics) [SULFA (SULFONAMIDE ANTIBIOTICS)] clarithromycin [From BIAXIN] Allergy Intermediate ABD.PAIN Verified 04/20/23 11:49 duloxetine [DULOXETINE] Allergy Intermediate FACIAL Verified 04/20/23 11:49 NUMBNESS erythromycin base Allergy Intermediate RASH Verified 04/20/23 11:49 [ERYTHROMYCIN BASE] Penicillins [PENICILLINS] Allergy Intermediate RASH Verified 04/20/23 11:49 tetracycline [TETRACYCLINE] Allergy Intermediate DIARRHEA Verified 04/20/23 11:49 ciprofloxacin [From CIPRO] Allergy Unknown ANAPHYLAXIS Verified 04/20/23 11:49 codeine [CODEINE] Allergy Unknown TINNITIS Verified 04/20/23 11:49 guaifenesin Allergy Unknown Unknown Verified 04/20/23 11:49 levofloxacin [From Levaquin] Allergy Unknown Unknown Verified 04/20/23 11:49 pregabalin Allergy Unknown Unknown Verified 04/20/23 11:49 Home Medications Medication Instructions Recorded Confirmed Last Taken Type levothyroxine 112 mcg tablet 112 mcg PO DAILY 08/28/20 09/14/22 12/08/21 History atorvastatin 10 mg tablet 1 tab PO DAILY@1700 04/05/21 09/14/22 12/07/21 History metformin 500 mg tablet,extended 1 tab PO DAILY@1700 04/06/21 09/14/22 12/07/21 History release 24 hr omeprazole 20 mg capsule,delayed 20 mg PO DAILY@0630 04/29/21 09/14/22 Unknown History release cholecalciferol (vitamin D3) 50 50 mcg PO DAILY 07/19/22 09/14/22 Unknown History mcg (2,000 unit) tablet (Vitamin D3) lisinopril 10 mg tablet 10 mg PO DAILY 07/19/22 09/14/22 Unknown History Physical Exam 2 Vital Signs and Narrative: Vital Signs: Last Vital Signs Temp 100.6 F H 04/24/23 22:12 Pulse 93 04/24/23 22:12 Resp 14 04/24/23 22:12 BP 154/55 H 04/24/23 22:12 Pulse Ox 96 04/24/23 22:12 O2 Del Method Room Air 04/24/23 22:12 BMI result Body Mass Index 36.0 Elderly female lying in bed in no distress Neck supple, no JVD Regular rate and rhythm, S1-S2 heard Regular breath sounds bilaterally, no wheezing or crackles appreciated Abdomen soft nontender, no guarding, no rigidity Patient is awake, alert and oriented to self, place, time and person ; no focal motor deficit Skin: Right side of the back with open wound with purulent foul-smelling drainage Psych: Normal mood No pedal edema Results Labs 04/24/23 15:27 04/24/23 15:27 Labs: Laboratory Results - last 24 hr 04/24/23 15:27 MCV 89.3 MCH 29.0 MCHC 32.5 RDW 14.5 Plt Count 212 MPV 9.5 Immature Gran % (Auto) 1.2 H Neut % (Auto) 81.6 H Lymph % (Auto) 10.6 L [place] % (Auto) 5.7 Eos % (Auto) 0.5 Baso % (Auto) 0.4 Lymph # (Auto) 1.0 L [place] # (Auto) 0.5 Eos # (Auto) 0.1 Baso # (Auto) 0.0 Abs Immat Gran (auto) 0.11 H Absolute Neuts (auto) 7.6 Absolute Nucleated RBC 0.000 Nucleated RBC % (auto) 0.0 Anion Gap 16 Estim Creat Clear Calc 39.1 Estimated GFR 37 Random Glucose 141 H Calcium 9.0 D Total Bilirubin 0.5 AST 38 H ALT 33 H Alkaline Phosphatase 70 Total Protein 7.5 Albumin 3.6 Urine Color Yellow Urine Appearance Clear Urine pH 6.0 Ur Specific [place] 1.010 Urine Protein Negative Urine Glucose (UA) Negative Urine Ketones Negative Urine Blood Moderate (2+) H Urine Nitrite Negative Ur Leukocyte Esterase Moderate (2+) H Urine RBC 11-20 H Urine WBC 11-20 H Ur Squamous Epith Cells 0-2 Urine Bacteria None Seen Hyaline Casts 0-2 Influenza Type A (PCR) NEGATIVE Influenza Type B (PCR) NEGATIVE RSV RNA Qual (PCR) NEGATIVE SARS-CoV-2 RNA (RT-PCR) NEGATIVE Imaging Radiologist's Impressions: Impressions Chest X-Ray 04/24/23 15:47 IMPRESSION: * Clear lungs. Abdomen/Pelvis CT 04/24/23 21:34 IMPRESSION: There is an abnormality in the sigmoid colon with irregular wall thickening and surrounding stranding. Indistinct tissue planes between the vaginal fornix, bladder and colon. Recommend endoscopic assessment. Malignancy is not excluded. There is an unchanged collection adjacent to the lower right kidney. Moderate to marked stone burden greater on the right kidney than left. There is a tract from the kidney through the right flank soft tissues to the skin. There is some abnormal attenuation in the right psoas. No large undrained collection. Micronodular liver contour suggests underlying chronic liver disease. Fleischner guidelines were followed. Chest CT 04/24/23 21:34 IMPRESSION: No focal pneumonia or edema. Scattered micronodules. In a low risk patient this does not require specific imaging follow-up Fleischner guidelines were followed. Assessment and Plan (1) Sepsis: Status: Acute (2) Open wound of back, complicated: Status: Acute Plan This is a 78-year-old female with pertinent history of history of retroperitoneal abscess, hypothyroidism, cee-ziljpds-tkfdemzys diabetes mellitus, mood disorder who presents to the emergency department for evaluation of fevers. #. Sepsis due to purulent cellulitis of open wound on the back: Resuscitated with IV crystalloids. Initiating empiric IV antibiotics. Lactic acid blood culture obtained. 2.1 cm collection noted adjacent to lower pole of right kidney on imaging with track extending to the skin. Consulting Urology. Patient does have a history of renal abscess. #. Imaging with 1.9 cm calculus in the mid right kidney and partial staghorn calculus in the lower pole collecting system: Appreciate Urology assistance #. Lfr-rsruxyn-nrntabitb diabetes mellitus: Initiating Accu-Cheks with sliding scale insulin #. Hypothyroidism: On Synthroid #. Essential hypertension: Continue home antihypertensives #. Obesity: Consult regarding diet and exercise Med rec pending DVT prophylaxis: Defer Lovenox until urology evaluation. On SCDs Full code Admit as inpatient and will require two night minimum hospital stay for IV antibiotics(as above), which is not possible in a lesser acute setting. Specialist consult pending Quality Stroke Does the patient have a stroke diagnosis?: No VTE Prior VTE?: No VTE Risk Level:: Medical - moderate - high VTE Device Contraindication: N/A - Device Ordered VTE Drug Contraindication: Treatment Not Indicated
--- NOTE | 2023-04-25 01:04 | PC.NURSE ---
Right lower posterior wound with purulent drainage noted. Pt reports does the wound dressing changes at home. reports applying packing inside the wound as it is a deep wound. No packing noted when dressing removed. Wound cleaned and dried. New dressing applied. Pt tolerated well.
--- NOTE | 2023-04-25 01:48 | PC.NURSE ---
Delay on ab administration due to difficult stick for blood cultures. Pt also reports having an allergy to PCN. [place] text sent to Dr. Nguyen. New order for Benadryl placed in the MAR. Pt aware of plan of care.
[2023-04-25] MEDS: diphenhydrAMINE HCL 50 MG/ML VIAL 25 MG IVPUSH (02:00)
[2023-04-25] MEDS: Piperacillin Sodium/Tazobactam 4.5 GM in 0.9 % Sodium Chloride 100 ML IV ×4 (02:02→23:49)
[2023-04-25 02:10] LABS: Lactic Acid 1.3 mmol/L (0.5-2.0)
[2023-04-25] MEDS: vancomycin/NS 2,000 MG/500 ML PLAST..BAG 250 MG IV (02:49)
[2023-04-25 04:46] LABS: MANUAL DIFF FLAG NO
[2023-04-25 04:48] LABS: Basophils Percent Auto 0.3 % (0-2); Eosinophils Percent Auto 0.5 % (0-4); Hematocrit 33.5 % (37.0-47.0); Imm Gran Abs Auto 0.08 X10*3/uL (0.00-0.03); Imm Gran Pct Auto 1.3 % (0.0-0.4); Lymphocytes Absolute Auto 1.4 X10*3/uL (1.2-4.9); Lymphocytes Percent Auto 21.4 % (20-40); Mean Corpuscular HGB Conc 32.8 g/dl (31.0-35.0); Mean Corpuscular Hemoglobin 29.2 pg (27.0-33.0); Mean Corpuscular Volume 88.9 fL (80.0-98.0); Mean Platelet Volume 9.8 fL (9.4-12.3); Monocytes Absolute Auto 0.7 X10*3/uL (0.1-1.2); Monocytes Percent Auto 11.1 % (2-11); Neutrophils Absolute Auto 4.1 x10*3/uL (2.0-8.3); Neutrophils Percent Auto 65.4 % (45-73); Platelet Count 154 X10*3/uL (160-400); Red Blood Count 3.77 X10*6/uL (4.20-5.50); Red Cell Distribution Width 14.6 % (11.0-16.0); White Blood Count 6.3 X10*3/uL (4.8-10.8)
[2023-04-25 05:03] LABS: Anion Gap 13 (12-20); Blood Urea Nitrogen 19 mg/dL (9-16); Calcium 8.4 mg/dL (8.4-10.2); Carbon Dioxide 25 mmol/L (22-29); Chloride 104 mmol/L (96-108); Creatinine Clr Calc Pharmacy 36.6; Estimated Glomerular Filt Rate 35; Glucose Random 108 mg/dL (60-115); Sodium 138 mmol/L (135-145)
[2023-04-25 07:17] LABS: Glucose, Whole Blood 121 mg/dL (60-115)
--- NOTE | 2023-04-25 08:11 | PHA.PROG ---
Admission Date/Time: April 25, 2023 00:39 Indication: Sepsis Weight in k.254 kg Adjusted body weight in K.922 [place] body weight in K.7 Obesity Dosing Indication % IBW: OBESE Serum Creatinine - Last 168 Hours 04/24/23 04/25/23 15:27 04:32 Creatinine 1.37 1.46 H Estimated CrCl and GFR - Last 168 Hours 04/24/23 04/25/23 15:27 04:32 Estim Creat Clear Calc 39.1 36.6 Estimated GFR 37 35 Vancomycin Loading Dose: 2000 mg Current Vancomycin Dosing Regimen: 1000 Q24H Vancomycin Monitoring using AUC goal of 400 - 600 range with trough as surrogate marker: 448 Date and Time for next Vancomycin Level to be drawn: 04/25 @2100 Pharmacist Comments on Vancomycin Plan: Vancomycin dosing will take advantage of [employer] as a clinical decision support tool that uses Bayesian modeling to calculate individual patient's pharmacokinetic parameters and forecast the patient's drug concentration time course with the target goal AUC 24 range of 400 - 600 mg/L/hr.
--- NOTE | 2023-04-25 08:23 | PC.NURSE ---
Report given to Brooklynn in [facility].
[2023-04-25] MEDS: 0.9 % Sodium Chloride Flush 3 ML SYRINGE IVFLUSH ×2 (08:45→22:21)
--- NOTE | 2023-04-25 10:34 | PHA.MEDREC ---
Pharmacy Consult ? Medication Reconciliation Pharmacy has completed the medication reconciliation. Spoke with patient and and utilized list they brought from home
--- NOTE | 2023-04-25 10:49 | MHC.CM.PN ---
IMM 04/24. Pt self-care, lives at home with her fiance, uses a cane, walker, and wheelchair as needed. Pts fiance will transport her home. HCP on file and verified. PCP: Dr. Preston Wang
[2023-04-25] MEDS: Acetaminophen 325 MG TABLET 650 MG PO ×2 (10:51→22:12)
--- NOTE | 2023-04-25 11:23 | HO.PM.IMPN ---
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 Afebrile. NPO Review of Systems Review of Systems: Yes all other systems are reviewed and are negative Physical Exam Vital Signs: Vital Signs: Last Vital Signs Temp 99.2 F 04/25/23 07:11 Pulse 87 04/25/23 07:11 Resp 15 04/25/23 07:11 BP 115/55 L 04/25/23 07:11 Pulse Ox 94 04/25/23 07:11 O2 Del Method Room Air 04/25/23 07:11 BMI result Body Mass Index 36.0 Constitutional - Awake and Alert, No apparent distress Eyes - PERRLA, EOMI Cardiovascular - S1S2, RRR, No edema Respiratory - Normal lung expansion, Normal respiratory effort, No respiratory distress, CTA bilaterally Gastrointestinal - NT / ND; +BS; No rebound or guarding Extremities - no calf tenderness bilaterally, no swelling Skin - Warm/Dr. R low back/flank with open 1.3x1cm open wound draining foul-smelling purulent drainage. No surrounding erythema/warmth Neurological - Alert & oriented x3 Psychological - Appropriate affect Objective Data Active Medications Acetaminophen (Acetaminophen 325 Mg Tablet) 650 mg PO Q6H PRN PRN Reason: Pain, Mild (Pain Scale 1-3) Last Admin: 04/25/23 10:51 Dose: 650 mg Documented By: JOVON Dextrose (Dextrose 50 % 25 Gm/50 Ml Syringe) 25 gm IVPUSH Q15M PRN; Protocol PRN Reason: per Hypoglycemia Standing Ord. Glucose (Glucose Gel 15 Gm Gel..Gram.) 15 gm PO Q15M PRN; Protocol PRN Reason: per Hypoglycemia Standing Ord. Piperacillin Sod/Tazobactam (Sod 4.5 gm/ Sodium Chloride) 100 mls @ 200 mls/hr IV Q8H [facility] Last Infusion: 04/25/23 10:16 Dose: Infused Documented By: JOVON Vancomycin HCl 1,000 mg/ (Sodium Chloride) 270 mls @ 270 mls/hr IV Q24H [facility] Insulin Human Lispro (Insulin Lispro 100 Unit/Ml 3 Ml Vial) 0 unit SUBCUT QIDACHS [facility]; Protocol Last Admin: 04/25/23 07:21 Dose: Not Given Documented By: JOVON Non-Admin Reason: No Insulin Coverage Melatonin (Melatonin 3 Mg Tablet) 6 mg PO BEDTIME PRN PRN Reason: Insomnia Ondansetron HCl (Ondansetron Hcl 4 Mg/2 Ml Vial) 4 mg IVPUSH Q8H PRN PRN Reason: Nausea and Vomiting Pharmacy Consult (Consult Rx Vancomycin Dosing) 1 each MISCELLANE DAILY PRN PRN Reason: Consult order Sodium Chloride (0.9 % Sodium Chloride Flush 3 Ml Syringe) [facility] Last Admin: 04/25/23 08:45 Dose: 3 ml Documented By: JOVON Labs 04/25/23 04:32 04/25/23 04:32 Labs: Laboratory Results - last 24 hr 04/24/23 04/25/23 04/25/23 15:27 01:53 04:32 MCV 89.3 88.9 MCH 29.0 29.2 MCHC 32.5 32.8 RDW 14.5 14.6 Plt Count 212 154 L D MPV 9.5 9.8 Immature Gran % (Auto) 1.2 H 1.3 H Neut % (Auto) 81.6 H 65.4 Lymph % (Auto) 10.6 L 21.4 [place] % (Auto) 5.7 11.1 H Eos % (Auto) 0.5 0.5 Baso % (Auto) 0.4 0.3 Lymph # (Auto) 1.0 L 1.4 [place] # (Auto) 0.5 0.7 Eos # (Auto) 0.1 0.0 Baso # (Auto) 0.0 0.0 Abs Immat Gran (auto) 0.11 H 0.08 H Absolute Neuts (auto) 7.6 4.1 Absolute Nucleated RBC 0.000 0.000 Nucleated RBC % (auto) 0.0 0.0 Anion Gap 16 13 Estim Creat Clear Calc 39.1 36.6 Estimated GFR 37 35 POC Glucose Random Glucose 141 H 108 Lactic Acid 1.3 Calcium 9.0 D 8.4 D Total Bilirubin 0.5 AST 38 H ALT 33 H Alkaline Phosphatase 70 Total Protein 7.5 Albumin 3.6 Urine Color Yellow Urine Appearance Clear Urine pH 6.0 Ur Specific [place] 1.010 Urine Protein Negative Urine Glucose (UA) Negative Urine Ketones Negative Urine Blood Moderate (2+) H Urine Nitrite Negative Ur Leukocyte Esterase Moderate (2+) H Urine RBC 11-20 H Urine WBC 11-20 H Ur Squamous Epith Cells 0-2 Urine Bacteria None Seen Hyaline Casts 0-2 Influenza Type A (PCR) NEGATIVE Influenza Type B (PCR) NEGATIVE RSV RNA Qual (PCR) NEGATIVE SARS-CoV-2 RNA (RT-PCR) NEGATIVE 04/25/23 07:09 MCV MCH MCHC RDW Plt Count MPV Immature Gran % (Auto) Neut % (Auto) Lymph % (Auto) [place] % (Auto) Eos % (Auto) Baso % (Auto) Lymph # (Auto) [place] # (Auto) Eos # (Auto) Baso # (Auto) Abs Immat Gran (auto) Absolute Neuts (auto) Absolute Nucleated RBC Nucleated RBC % (auto) Anion Gap Estim Creat Clear Calc Estimated GFR POC Glucose 121 H Random Glucose Lactic Acid Calcium Total Bilirubin AST ALT Alkaline Phosphatase Total Protein Albumin Urine Color Urine Appearance Urine pH Ur Specific [place] Urine Protein Urine Glucose (UA) Urine Ketones Urine Blood Urine Nitrite Ur Leukocyte Esterase Urine RBC Urine WBC Ur Squamous Epith Cells Urine Bacteria Hyaline Casts Influenza Type A (PCR) Influenza Type B (PCR) RSV RNA Qual (PCR) SARS-CoV-2 RNA (RT-PCR) Microbiology Microbiology Results: Microbiology 04/24/23 15:48 Urine Culture - Final Urine clean catch - Urine alonso top Streptococcus viridans group Assessment and Plan (1) Open wound of back, complicated: Status: Acute (2) Wound infection: Status: Acute (3) Renal abscess: Status: Acute (4) Sepsis: Status: Acute (5) Cellulitis: Status: Acute (6) Renal stones: Status: Acute Plan This is a 78-year-old female with pertinent history of history of retroperitoneal abscess, hypothyroidism, odz-wyhntue-yvhcicvjq diabetes mellitus, mood disorder who presents to the emergency department for evaluation of fevers. 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 Sepsis resolved 04/24 -IV vanco/zosyn (initiated 04/23) -dry/sterile dressings -Per urology, plan for cystoscopy, stent placement, concern for collection communicating with ureter -Keep NPO, initiate IVF -follow CBC, cultures # staghorn calculus- present prior to admission -CT abdomen/pelvis shows 1.9 cm calculus in the mid right kidney and partial staghorn calculus in the lower pole collecting system -per Urology, plan for cystoscopy/stent placement -keep NPO, initiating IV fluids -renal function baseline #Obd-etgtxrz-uztxtkchs diabetes mellitus -POC glucose, NPO for now advance to diabetic diet pending procedure -Humalog on sliding scale #Hypothyroidism -continue levothyroxine #Essential hypertension -blood pressure reasonably controlled -continue Lasix, lisinopril # HLD -continue statin # severe obesity with BMI > 36 -weight loss efforts encouraged DVT prophylaxis: Defer Lovenox until urology evaluation. On SCDs Full code Patient requires ongoing inpatient stay for management of sepsis with purulent cellulitis and tunneling fistula to renal abscess requiring broad-spectrum antibiotics, surgical procedure, expert consultation Quality Stroke Does the patient have a stroke diagnosis?: No VTE Prior VTE?: No VTE Risk Level:: Medical - moderate - high VTE Device Contraindication: N/A - Device Ordered VTE Drug Contraindication: Treatment Not Indicated
[2023-04-25] MEDS: 0.9 % Sodium Chloride 1,000 ML 100 ML IVCONT ×2 (11:55→22:02)
--- NOTE | 2023-04-25 12:04 | PC.NURSE ---
this RN resumed care of pt at this time. a&ox4. vss and up to date aside from being slightly hypotensive at this time. nsr on the security monitor. pt recently had prn Tylenol administered by previous RN for headache. pt verbalizing pain level decreased post medication administration at this time. pt has been NPO since slightly before midnight on 04/23. IVF bolus administered per provider order. effectiveness of BP pending. no sob/wob noted. respirations even and unlabored. pt waiting to go to short stay at this time. report already given by previous RN. bedside for support. plan of care ongoing. call guzman placed within reach.
[2023-04-25 13:16] LABS: Glucose, Whole Blood 104 mg/dL (60-115)
[2023-04-25] MEDS: 0.9 % Sodium Chloride 1,000 ML 999 ML IV (13:16)
--- NOTE | 2023-04-25 14:31 | PC.NURSE ---
pt being transported to short stay at this time.
--- NOTE | 2023-04-25 14:58 | PC.NURSE ---
report given to Clementine Prescott Rn to [facility] nursing [facility].
[2023-04-25 17:21] LABS: Glucose, Whole Blood 107 mg/dL (60-115)
--- NOTE | 2023-04-25 17:22 | P.CONAN_ITS ---
HPI - Anesthesia Eval Consult details Narrative: 78 yo female patient for Colonoscopy PMFSH Active Problems Active Problems: All Active Problems (Updated 04/28/23 @ 11:00 by Kary Buchanan MD) Renal stones (Acute) Renal abscess (Acute) Wound infection (Acute) Open wound of back, complicated (Acute) Frequency of urination (Acute) Vaginal burning (Acute) Vaginal itching (Acute) PMB (postmenopausal bleeding) (Acute) Fracture of great toe, left, closed (Acute) Cellulitis (Acute) Sepsis (Acute) Retroperitoneal fluid collection (Acute) Bilateral nephrolithiasis (Acute) Abscess, retroperitoneal (Acute) Renal calyceal dilation determined by ultrasound (Acute) UTI (urinary tract infection) (Acute) Past Medical History Medical History (Updated 04/28/23 @ 12:18 by Kary Buchanan MD) Frequency of urination Vaginal burning Vaginal itching PMB (postmenopausal bleeding) Cirrhosis of liver Does mobilize using walker PONV (postoperative nausea and vomiting) Left foot drop Fatty liver Fibromyalgia Neuropathy RBBB Cholelithiasis Staghorn calculus Renal calculus, bilateral Renal calyceal dilation determined by ultrasound UTI (urinary tract infection) Diabetes mellitus, type II Ganglion cyst Plantar fasciitis Anxiety OA (osteoarthritis) Obstructive airway disease Hypercholesterolemia Low back pain Sciatica Hypothyroidism HTN (hypertension) Primary osteoarthritis of right knee Retained ureteral stent Renal stones Staghorn calculus Perirectal abscess Family History Family History Father Alcohol dependence Mother CHF (congestive heart failure) Cancer of breast Mother No problems noted. Other Alcoholic cirrhosis Family history of problems with anesthesia: No Surgical History Surgical History Status post cystoscopy with ureteral stent placement History of lumbar discectomy History of lumpectomy of both breasts History of cystoscopy History of lithotripsy Hx of colonoscopy History of surgery History of Problems with Anesthesia: No Social History Social History Household Members: None Housing: House Do you presently have visiting nurse or other home services: No Alcohol intake: never Comment: given pyridium Patient Tobacco Use Status: Former Tobacco user Quit Date: 1986 Tobacco use type: Cigarette Years Smoked: 27 Smoked in Last 30 Days: No Second Hand Smoke Exposure: No Use of substances other than those prescribed or required for medical reasons: No Currently Displaying Signs/Symptoms of Drug Intoxication Withdrawal: No Have you been hit, kicked, punched, or otherwise hurt by someone within the past year? If so, by whom?: No Do you feel safe in your current relationship?: No Current Relationship Is there a partner from a previous relationship who is making you feel unsafe now?: No Are you made to feel afraid or neglected: No Are you DNR?: No Advance Directives: Yes Advance Directives on File: Yes Advance Directives Date on File: 04/06/21 Do you have thoughts of harming others: None Do you have a plan to hurt others: No Plan Recently lost weight without trying: No How much weight loss: 2-13 pounds Eating poorly because of decreased appetite: No Nutrition screen score: 1 Nutrition Risks: No Nutritional Risk Patient : No Poor oral hygiene: No service: No Current occupational status: disabled Meds Allergies Allergy/AdvReac Type Severity Reaction Status Date / Time chlorpheniramine Allergy Severe HALLUCINATI Verified 04/20/23 11:49 [From TUSSIONEX] ONS escitalopram [ESCITALOPRAM] Allergy Severe DISSOCIATIVE Verified 04/20/23 11:49 REACTION fluoxetine [FLUOXETINE] Allergy Severe DISSOCIATIVE Verified 04/20/23 11:49 REACTION hydrocodone [From TUSSIONEX] Allergy Severe HALLUCINATI Verified 04/20/23 11:49 ONS ibuprofen [IBUPROFEN] Allergy Severe THROAT Verified 04/20/23 11:49 SWELLING Sulfa (Sulfonamide Allergy Severe DYSPNEA Verified 04/20/23 11:49 Antibiotics) [SULFA (SULFONAMIDE ANTIBIOTICS)] clarithromycin [From BIAXIN] Allergy Intermediate ABD.PAIN Verified 04/20/23 11:49 duloxetine [DULOXETINE] Allergy Intermediate FACIAL Verified 04/20/23 11:49 NUMBNESS erythromycin base Allergy Intermediate RASH Verified 04/20/23 11:49 [ERYTHROMYCIN BASE] Penicillins [PENICILLINS] Allergy Intermediate RASH Verified 04/20/23 11:49 tetracycline [TETRACYCLINE] Allergy Intermediate DIARRHEA Verified 04/20/23 11:49 ciprofloxacin [From CIPRO] Allergy Unknown ANAPHYLAXIS Verified 04/20/23 11:49 codeine [CODEINE] Allergy Unknown TINNITIS Verified 04/20/23 11:49 guaifenesin Allergy Unknown Unknown Verified 04/20/23 11:49 levofloxacin [From Levaquin] Allergy Unknown Unknown Verified 04/20/23 11:49 pregabalin Allergy Unknown Unknown Verified 04/20/23 11:49 Active Medications: Current Medications Acetaminophen (Acetaminophen 325 Mg Tablet) 650 mg PO Q6H PRN PRN Reason: Pain, Mild (Pain Scale 1-3) Last Admin: 04/25/23 10:51 Dose: 650 mg Atorvastatin Calcium (Atorvastatin Calcium 10 Mg Tablet) 10 mg PO DAILY@1700 [facility] Dextrose (Dextrose 50 % 25 Gm/50 Ml Syringe) 25 gm IVPUSH Q15M PRN; Protocol PRN Reason: per Hypoglycemia Standing Ord. Furosemide (Furosemide 40 Mg Tablet) 40 mg PO DAILY [facility]; Protocol Glucose (Glucose Gel 15 Gm Gel..Gram.) 15 gm PO Q15M PRN; Protocol PRN Reason: per Hypoglycemia Standing Ord. Piperacillin Sod/Tazobactam (Sod 4.5 gm/ Sodium Chloride) 100 mls @ 200 mls/hr IV Q8H [facility] Last Infusion: 04/25/23 10:16 Dose: Infused Vancomycin HCl 1,000 mg/ (Sodium Chloride) 270 mls @ 270 mls/hr IV Q24H [facility] Sodium Chloride (Ns) 1,000 mls @ 100 mls/hr IVCONT .Q10H [facility] Last Admin: 04/25/23 11:55 Dose: 100 mls/hr Dextrose/Sodium Chloride (D5ns) 1,000 mls @ 100 mls/hr IVCONT .Q10H [facility] Insulin Human Lispro (Insulin Lispro 100 Unit/Ml 3 Ml Vial) 0 unit SUBCUT QIDACHS [facility]; Protocol Last Admin: 04/25/23 13:15 Dose: Not Given Levothyroxine Sodium (Levothyroxine Sodium 112 Mcg Tablet) 112 mcg PO DAILY@0600 [facility] Lisinopril (Lisinopril 10 Mg Tablet) 10 mg PO DAILY [facility]; Protocol Melatonin (Melatonin 3 Mg Tablet) 6 mg PO BEDTIME PRN PRN Reason: Insomnia Ondansetron HCl (Ondansetron Hcl 4 Mg/2 Ml Vial) 4 mg IVPUSH Q8H PRN PRN Reason: Nausea and Vomiting Pharmacy Consult (Consult Rx Vancomycin Dosing) 1 each MISCELLANE DAILY PRN PRN Reason: Consult order Sodium Chloride (0.9 % Sodium Chloride Flush 3 Ml Syringe) 3 ml IVFLUSH QSHIFT [facility] Last Admin: 04/25/23 08:45 Dose: 3 ml Vitamin D (Cholecalciferol (Vitamin D3) 25 Mcg Tablet) 50 mcg PO DAILY [facility] Home Medications Medication Instructions Recorded Confirmed Last Taken Type levothyroxine 112 mcg tablet 112 mcg PO DAILY 08/28/20 04/25/23 04/24/23 History atorvastatin 10 mg tablet 1 tab PO DAILY@1700 04/05/21 04/25/23 04/24/23 History metformin 500 mg tablet,extended 1 tab PO DAILY@1700 04/06/21 04/25/23 04/18/23 History release 24 hr cholecalciferol (vitamin D3) 50 50 mcg PO DAILY 07/19/22 04/25/23 04/24/23 History mcg (2,000 unit) tablet (Vitamin D3) lisinopril 10 mg tablet 10 mg PO DAILY 07/19/22 04/25/23 04/24/23 History pyridoxine (vitamin B6) 100 mg 100 mg PO DAILY 04/25/23 04/25/23 04/24/23 History tablet Exam Height,Weight and Vital Signs: Height 5 ft 4 in Weight 95.254 kg Last Vital Signs Temp 98.3 F 04/25/23 14:45 Pulse 83 04/25/23 14:45 Resp 18 04/25/23 14:45 BP 153/83 H 04/25/23 14:45 Pulse Ox 97 04/25/23 14:45 O2 Del Method Room Air 04/25/23 14:45 Vital Signs Temp Pulse Resp BP Pulse Ox O2 Del Method 04/28/23 10:46 97.9 F 71 17 128/54 L 96 Room Air 04/28/23 07:34 97.9 F 78 16 113/59 L 95 Room Air 04/28/23 07:27 98.3 F 76 14 142/70 H 95 Room Air 04/28/23 03:28 97.3 F 75 18 147/74 H 97 Room Air 04/27/23 23:07 i Room Air 04/27/23 20:03 97.2 F 71 20 152/78 H 97 Room Air 04/27/23 19:38 97.2 F 73 18 180/77 H 97 Room Air 04/27/23 15:36 97.5 F 65 16 118/62 97 Room Air Pertinent Lab Results Pertinent Lab Results: Laboratory Tests 04/24/23 04/25/23 04/25/23 15:27 01:53 04:32 WBC 9.3 6.3 RBC 4.28 3.77 L Hgb 12.4 11.0 L Hct 38.2 33.5 L MCV 89.3 88.9 MCH 29.0 29.2 MCHC 32.5 32.8 RDW 14.5 14.6 Plt Count 212 154 L D MPV 9.5 9.8 Immature Gran % (Auto) 1.2 H 1.3 H Neut % (Auto) 81.6 H 65.4 Lymph % (Auto) 10.6 L 21.4 [place] % (Auto) 5.7 11.1 H Eos % (Auto) 0.5 0.5 Baso % (Auto) 0.4 0.3 Lymph # (Auto) 1.0 L 1.4 [place] # (Auto) 0.5 0.7 Eos # (Auto) 0.1 0.0 Baso # (Auto) 0.0 0.0 Abs Immat Gran (auto) 0.11 H 0.08 H Absolute Neuts (auto) 7.6 4.1 Absolute Nucleated RBC 0.000 0.000 Nucleated RBC % (auto) 0.0 0.0 Sodium 137 138 Potassium 3.8 4.0 Chloride 102 104 Carbon Dioxide 23 25 Anion Gap 16 13 BUN 23 H 19 H Creatinine 1.37 1.46 H Estim Creat Clear Calc 39.1 36.6 Estimated GFR 37 35 POC Glucose Random Glucose 141 H 108 Lactic Acid 1.3 Calcium 9.0 D 8.4 D Total Bilirubin 0.5 AST 38 H ALT 33 H Alkaline Phosphatase 70 Total Protein 7.5 Albumin 3.6 Urine Color Yellow Urine Appearance Clear Urine pH 6.0 Ur Specific [place] 1.010 Urine Protein Negative Urine Glucose (UA) Negative Urine Ketones Negative Urine Blood Moderate (2+) H Urine Nitrite Negative Ur Leukocyte Esterase Moderate (2+) H Urine RBC 11-20 H Urine WBC 11-20 H Ur Squamous Epith Cells 0-2 Urine Bacteria None Seen Hyaline Casts 0-2 Influenza Type A (PCR) NEGATIVE Influenza Type B (PCR) NEGATIVE RSV RNA Qual (PCR) NEGATIVE SARS-CoV-2 RNA (RT-PCR) NEGATIVE 04/25/23 04/25/23 04/25/23 07:09 13:12 17:17 WBC RBC Hgb Hct MCV MCH MCHC RDW Plt Count MPV Immature Gran % (Auto) Neut % (Auto) Lymph % (Auto) [place] % (Auto) Eos % (Auto) Baso % (Auto) Lymph # (Auto) [place] # (Auto) Eos # (Auto) Baso # (Auto) Abs Immat Gran (auto) Absolute Neuts (auto) Absolute Nucleated RBC Nucleated RBC % (auto) Sodium Potassium Chloride Carbon Dioxide Anion Gap BUN Creatinine Estim Creat Clear Calc Estimated GFR POC Glucose 121 H 104 107 Random Glucose Lactic Acid Calcium Total Bilirubin AST ALT Alkaline Phosphatase Total Protein Albumin Urine Color Urine Appearance Urine pH Ur Specific [place] Urine Protein Urine Glucose (UA) Urine Ketones Urine Blood Urine Nitrite Ur Leukocyte Esterase Urine RBC Urine WBC Ur Squamous Epith Cells Urine Bacteria Hyaline Casts Influenza Type A (PCR) Influenza Type B (PCR) RSV RNA Qual (PCR) SARS-CoV-2 RNA (RT-PCR) Laboratory Results - last 24 hr 04/27/23 04/27/23 04/27/23 16:32 20:15 21:06 Hold Purple Top Estim Creat Clear Calc Estimated GFR POC Glucose 160 H 128 H Random Vancomycin 12.0 L 04/28/23 04/28/23 04/28/23 05:29 07:25 11:13 Hold Purple Top SEE NOTE Estim Creat Clear Calc 53.2 Estimated GFR 53 POC Glucose 90 101 Random Vancomycin Airway Mallampati Class: II TM Dist: >3cm Neck ROM: Full Denture: Upper Loose/Missing/Broken Teeth: Yes (Missing ) Heart: RRR Lungs: CTAB Assessment and Plan Assessment Anesthesia Assessment: Anesthesia Plan Discussed and Chart Reviewed Final Anesthetic Review Family History of Problems with Anesthesia: No History of Problems with Anesthesia: No NPO: Yes ASA Class: III Final Preanesthetic Review: No Changes in Pt Med Stat, Meds/Allgs Chart Reviewed, Consent Obtained/Reviewed and Anes Risks/Benef Reviewed Patient Risk: Intermediate Procedure Risk: Low Assessment/Block/Sedation in SS: Assess/Block/Sedation-SS Anesthetic Plan Anesthetic Plan: MAC: and TIVA Disposition: Standard PACU
--- NOTE | 2023-04-25 17:53 | PC.NURSE ---
Preop report given to [facility].
--- NOTE | 2023-04-25 17:55 | HO.ANESPROP2 ---
[facility] Active Problems Active Problems: All Active Problems (Updated 04/25/23 @ 11:55 by JOSE ROBERTO Peñaloza) Renal stones (Acute) Renal abscess (Acute) Wound infection (Acute) Open wound of back, complicated (Acute) Frequency of urination (Acute) Vaginal burning (Acute) Vaginal itching (Acute) PMB (postmenopausal bleeding) (Acute) Fracture of great toe, left, closed (Acute) Cellulitis (Acute) Sepsis (Acute) Retroperitoneal fluid collection (Acute) Bilateral nephrolithiasis (Acute) Abscess, retroperitoneal (Acute) Renal calyceal dilation determined by ultrasound (Acute) UTI (urinary tract infection) (Acute) Past Medical History Medical History Frequency of urination Vaginal burning Vaginal itching PMB (postmenopausal bleeding) Cirrhosis of liver Does mobilize using walker PONV (postoperative nausea and vomiting) Left foot drop Fatty liver Fibromyalgia Neuropathy RBBB Cholelithiasis Staghorn calculus Renal calculus, bilateral Renal calyceal dilation determined by ultrasound UTI (urinary tract infection) Diabetes mellitus, type II Ganglion cyst Plantar fasciitis Anxiety OA (osteoarthritis) Obstructive airway disease Hypercholesterolemia Low back pain Sciatica Hypothyroidism HTN (hypertension) Primary osteoarthritis of right knee Retained ureteral stent Renal stones Staghorn calculus Perirectal abscess Functional capacity: independent ambulation Patient : No Family History Family History Father Alcohol dependence Mother CHF (congestive heart failure) Cancer of breast Mother No problems noted. Other Alcoholic cirrhosis Family history of problems with anesthesia: No Surgical History Surgical History Status post cystoscopy with ureteral stent placement History of lumbar discectomy History of lumpectomy of both breasts History of cystoscopy History of lithotripsy Hx of colonoscopy History of surgery History of Problems with Anesthesia: Yes Social History Social History Household Members: Spouse Housing: House Do you presently have visiting nurse or other home services: No Alcohol intake: never Comment: refuses bed alarm. Walks w/ walker w/ supervision from . Patient Tobacco Use Status: Former Tobacco user Quit Date: 1986 Tobacco use type: Cigarette Years Smoked: 27 Smoked in Last 30 Days: No Second Hand Smoke Exposure: No Use of substances other than those prescribed or required for medical reasons: No Are you DNR?: No Advance Directives: Yes Advance Directives on File: Yes Advance Directives Date on File: 04/06/21 Nutrition Risks: No Nutritional Risk service: No Current occupational status: disabled Meds Allergies Allergy/AdvReac Type Severity Reaction Status Date / Time chlorpheniramine Allergy Severe HALLUCINATI Verified 04/20/23 11:49 [From TUSSIONEX] ONS escitalopram [ESCITALOPRAM] Allergy Severe DISSOCIATIVE Verified 04/20/23 11:49 REACTION fluoxetine [FLUOXETINE] Allergy Severe DISSOCIATIVE Verified 04/20/23 11:49 REACTION hydrocodone [From TUSSIONEX] Allergy Severe HALLUCINATI Verified 04/20/23 11:49 ONS ibuprofen [IBUPROFEN] Allergy Severe THROAT Verified 04/20/23 11:49 SWELLING Sulfa (Sulfonamide Allergy Severe DYSPNEA Verified 04/20/23 11:49 Antibiotics) [SULFA (SULFONAMIDE ANTIBIOTICS)] clarithromycin [From BIAXIN] Allergy Intermediate ABD.PAIN Verified 04/20/23 11:49 duloxetine [DULOXETINE] Allergy Intermediate FACIAL Verified 04/20/23 11:49 NUMBNESS erythromycin base Allergy Intermediate RASH Verified 04/20/23 11:49 [ERYTHROMYCIN BASE] Penicillins [PENICILLINS] Allergy Intermediate RASH Verified 04/20/23 11:49 tetracycline [TETRACYCLINE] Allergy Intermediate DIARRHEA Verified 04/20/23 11:49 ciprofloxacin [From CIPRO] Allergy Unknown ANAPHYLAXIS Verified 04/20/23 11:49 codeine [CODEINE] Allergy Unknown TINNITIS Verified 04/20/23 11:49 guaifenesin Allergy Unknown Unknown Verified 04/20/23 11:49 levofloxacin [From Levaquin] Allergy Unknown Unknown Verified 04/20/23 11:49 pregabalin Allergy Unknown Unknown Verified 04/20/23 11:49 Active Medications: Current Medications Acetaminophen (Acetaminophen 325 Mg Tablet) 650 mg PO Q6H PRN PRN Reason: Pain, Mild (Pain Scale 1-3) Last Admin: 04/25/23 10:51 Dose: 650 mg Atorvastatin Calcium (Atorvastatin Calcium 10 Mg Tablet) 10 mg PO DAILY@1700 [facility] Dextrose (Dextrose 50 % 25 Gm/50 Ml Syringe) 25 gm IVPUSH Q15M PRN; Protocol PRN Reason: per Hypoglycemia Standing Ord. Furosemide (Furosemide 40 Mg Tablet) 40 mg PO DAILY [facility]; Protocol Glucose (Glucose Gel 15 Gm Gel..Gram.) 15 gm PO Q15M PRN; Protocol PRN Reason: per Hypoglycemia Standing Ord. Piperacillin Sod/Tazobactam (Sod 4.5 gm/ Sodium Chloride) 100 mls @ 200 mls/hr IV Q8H [facility] Last Infusion: 04/25/23 10:16 Dose: Infused Vancomycin HCl 1,000 mg/ (Sodium Chloride) 270 mls @ 270 mls/hr IV Q24H [facility] Sodium Chloride (Ns) 1,000 mls @ 100 mls/hr IVCONT .Q10H [facility] Last Admin: 04/25/23 11:55 Dose: 100 mls/hr Dextrose/Sodium Chloride (D5ns) 1,000 mls @ 100 mls/hr IVCONT .Q10H [facility] Insulin Human Lispro (Insulin Lispro 100 Unit/Ml 3 Ml Vial) 0 unit SUBCUT QIDACHS [facility]; Protocol Last Admin: 04/25/23 13:15 Dose: Not Given Levothyroxine Sodium (Levothyroxine Sodium 112 Mcg Tablet) 112 mcg PO DAILY@0600 [facility] Lisinopril (Lisinopril 10 Mg Tablet) 10 mg PO DAILY [facility]; Protocol Melatonin (Melatonin 3 Mg Tablet) 6 mg PO BEDTIME PRN PRN Reason: Insomnia Ondansetron HCl (Ondansetron Hcl 4 Mg/2 Ml Vial) 4 mg IVPUSH Q8H PRN PRN Reason: Nausea and Vomiting Pharmacy Consult (Consult Rx Vancomycin Dosing) 1 each MISCELLANE DAILY PRN PRN Reason: Consult order Sodium Chloride (0.9 % Sodium Chloride Flush 3 Ml Syringe) 3 ml IVFLUSH QSHIFT [facility] Last Admin: 04/25/23 08:45 Dose: 3 ml Vitamin D (Cholecalciferol (Vitamin D3) 25 Mcg Tablet) 50 mcg PO DAILY [facility] Home Medications Medication Instructions Recorded Confirmed Last Taken Type levothyroxine 112 mcg tablet 112 mcg PO DAILY 08/28/20 04/25/23 04/24/23 History atorvastatin 10 mg tablet 1 tab PO DAILY@1700 04/05/21 04/25/23 04/24/23 History metformin 500 mg tablet,extended 1 tab PO DAILY@1700 04/06/21 04/25/23 04/18/23 History release 24 hr cholecalciferol (vitamin D3) 50 50 mcg PO DAILY 07/19/22 04/25/23 04/24/23 History mcg (2,000 unit) tablet (Vitamin D3) lisinopril 10 mg tablet 10 mg PO DAILY 07/19/22 04/25/23 04/24/23 History pyridoxine (vitamin B6) 100 mg 100 mg PO DAILY 04/25/23 04/25/23 04/24/23 History tablet Exam Height,Weight and Vital Signs: Height 5 ft 4 in Weight 95.254 kg Last Vital Signs Temp 98.3 F 04/25/23 14:45 Pulse 83 04/25/23 14:45 Resp 18 04/25/23 14:45 BP 153/83 H 04/25/23 14:45 Pulse Ox 97 04/25/23 14:45 O2 Del Method Room Air 04/25/23 14:45 Pertinent Lab Results Pertinent Lab Results: Laboratory Tests 04/24/23 04/25/23 04/25/23 15:27 01:53 04:32 WBC 9.3 6.3 RBC 4.28 3.77 L Hgb 12.4 11.0 L Hct 38.2 33.5 L MCV 89.3 88.9 MCH 29.0 29.2 MCHC 32.5 32.8 RDW 14.5 14.6 Plt Count 212 154 L D MPV 9.5 9.8 Immature Gran % (Auto) 1.2 H 1.3 H Neut % (Auto) 81.6 H 65.4 Lymph % (Auto) 10.6 L 21.4 [place] % (Auto) 5.7 11.1 H Eos % (Auto) 0.5 0.5 Baso % (Auto) 0.4 0.3 Lymph # (Auto) 1.0 L 1.4 [place] # (Auto) 0.5 0.7 Eos # (Auto) 0.1 0.0 Baso # (Auto) 0.0 0.0 Abs Immat Gran (auto) 0.11 H 0.08 H Absolute Neuts (auto) 7.6 4.1 Absolute Nucleated RBC 0.000 0.000 Nucleated RBC % (auto) 0.0 0.0 Sodium 137 138 Potassium 3.8 4.0 Chloride 102 104 Carbon Dioxide 23 25 Anion Gap 16 13 BUN 23 H 19 H Creatinine 1.37 1.46 H Estim Creat Clear Calc 39.1 36.6 Estimated GFR 37 35 POC Glucose Random Glucose 141 H 108 Lactic Acid 1.3 Calcium 9.0 D 8.4 D Total Bilirubin 0.5 AST 38 H ALT 33 H Alkaline Phosphatase 70 Total Protein 7.5 Albumin 3.6 Urine Color Yellow Urine Appearance Clear Urine pH 6.0 Ur Specific [place] 1.010 Urine Protein Negative Urine Glucose (UA) Negative Urine Ketones Negative Urine Blood Moderate (2+) H Urine Nitrite Negative Ur Leukocyte Esterase Moderate (2+) H Urine RBC 11-20 H Urine WBC 11-20 H Ur Squamous Epith Cells 0-2 Urine Bacteria None Seen Hyaline Casts 0-2 Influenza Type A (PCR) NEGATIVE Influenza Type B (PCR) NEGATIVE RSV RNA Qual (PCR) NEGATIVE SARS-CoV-2 RNA (RT-PCR) NEGATIVE 04/25/23 04/25/23 04/25/23 07:09 13:12 17:17 WBC RBC Hgb Hct MCV MCH MCHC RDW Plt Count MPV Immature Gran % (Auto) Neut % (Auto) Lymph % (Auto) [place] % (Auto) Eos % (Auto) Baso % (Auto) Lymph # (Auto) [place] # (Auto) Eos # (Auto) Baso # (Auto) Abs Immat Gran (auto) Absolute Neuts (auto) Absolute Nucleated RBC Nucleated RBC % (auto) Sodium Potassium Chloride Carbon Dioxide Anion Gap BUN Creatinine Estim Creat Clear Calc Estimated GFR POC Glucose 121 H 104 107 Random Glucose Lactic Acid Calcium Total Bilirubin AST ALT Alkaline Phosphatase Total Protein Albumin Urine Color Urine Appearance Urine pH Ur Specific [place] Urine Protein Urine Glucose (UA) Urine Ketones Urine Blood Urine Nitrite Ur Leukocyte Esterase Urine RBC Urine WBC Ur Squamous Epith Cells Urine Bacteria Hyaline Casts Influenza Type A (PCR) Influenza Type B (PCR) RSV RNA Qual (PCR) SARS-CoV-2 RNA (RT-PCR) Airway Mallampati Class: III TM Dist: >3cm Neck ROM: Full Denture: Upper Heart: RRR Lungs: CTA Assessment and Plan Final Anesthetic Review Family History of Problems with Anesthesia: No History of Problems with Anesthesia: Yes NPO: Yes ASA Class: III and Emergency Final Preanesthetic Review: Meds/Allgs Chart Reviewed, Consent Obtained/Reviewed and Anes Risks/Benef Reviewed Patient Risk: Intermediate Procedure Risk: Low Anesthetic Plan Anesthetic Plan: GA Disposition: Standard PACU
--- NOTE | 2023-04-25 19:37 | P.HPSUR_ITS ---
Pre-Procedural Eval Section A - 24 Hr Update-Section A only Date of Service: 04/25/23 The patient is an INPATIENT: No Changes since office visit: Yes New Medical Problems; No Cold of Flu in the past 2 weeks, No Changes in Medication and No Patient answered all questions The patient has been examined within 24 hours of the surgical procedure. The History & Physical has been completed within 30 days and I have reviewed it.: Yes Section B - Complete if H&P > 30 days Chief Complaint: Fever Details of Present Illness: Plan for cystoscopy, right retrograde, right stent placement, possible ureteroscopy to place stent Relevant Family History (Specify if Yes): No Relevant Social History: None Present Medications: see Short Stay Collaborative assessment Medical History: Significant History History of Previous Operations: Relevant previous surgery/procedure and date(s) Allergies: Allergies Allergy/AdvReac Type Severity Reaction Status Date / Time chlorpheniramine Allergy Severe HALLUCINATI Verified 04/20/23 11:49 [From TUSSIONEX] ONS escitalopram [ESCITALOPRAM] Allergy Severe DISSOCIATIVE Verified 04/20/23 11:49 REACTION fluoxetine [FLUOXETINE] Allergy Severe DISSOCIATIVE Verified 04/20/23 11:49 REACTION hydrocodone [From TUSSIONEX] Allergy Severe HALLUCINATI Verified 04/20/23 11:49 ONS ibuprofen [IBUPROFEN] Allergy Severe THROAT Verified 04/20/23 11:49 SWELLING Sulfa (Sulfonamide Allergy Severe DYSPNEA Verified 04/20/23 11:49 Antibiotics) [SULFA (SULFONAMIDE ANTIBIOTICS)] clarithromycin [From BIAXIN] Allergy Intermediate ABD.PAIN Verified 04/20/23 11:49 duloxetine [DULOXETINE] Allergy Intermediate FACIAL Verified 04/20/23 11:49 NUMBNESS erythromycin base Allergy Intermediate RASH Verified 04/20/23 11:49 [ERYTHROMYCIN BASE] Penicillins [PENICILLINS] Allergy Intermediate RASH Verified 04/20/23 11:49 tetracycline [TETRACYCLINE] Allergy Intermediate DIARRHEA Verified 04/20/23 11:49 ciprofloxacin [From CIPRO] Allergy Unknown ANAPHYLAXIS Verified 04/20/23 11:49 codeine [CODEINE] Allergy Unknown TINNITIS Verified 04/20/23 11:49 guaifenesin Allergy Unknown Unknown Verified 04/20/23 11:49 levofloxacin [From Levaquin] Allergy Unknown Unknown Verified 04/20/23 11:49 pregabalin Allergy Unknown Unknown Verified 04/20/23 11:49 Review of Systems Sugical H&P ROS: Negative: Constitution, Cardiovascular, Respiratory, Neurological, Psychiatric, Hem-Onc, Allergic/Immunologic, Gastrointestinal, Genitourinary, Musculoskeletal, Integumentary, Endocrine and Eyes/Ear s/Nose/Throat Exam Surgical H&P Exam: Normal: HEENT, Normal: Heart, Normal: Lungs, Normal: Extremities, Normal: Abdomen, Normal: Skin and Normal: Neurological Plan Diagnosis/Plan: Unchanged (Cystoscopy, right retrograde, right stent placement, possible ureteroscopy to place stent) I have reviewed the history and physical and performed a pertinent physical examination on my patient. No changes have occurred unless specified. Time Spent With Patient Time: Total time managing care of this patient today ____ minutes.
--- NOTE | 2023-04-25 20:37 | W.PM.OPN ---
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 Elevated creatinine. Procedure: After informed consent was verified the patient was brought to the operating room and placed in a supine position. Anesthesia was administered per protocol. The patient was placed in modified dorsal lithotomy position and prepped and draped in a sterile fashion. A safety pause time-out was performed. Laterality of procedure and antibiotics were confirmed, appropriate imaging was available A 22 Jordanian cystoscope was introduced per urethra. No abnormality was noted of urethra or bladder. Both ureteric orifices were seen in a normal position. The right ureter was cannulated with an open ended catheter and a retrograde examination was performed. Mild right hydroureteronephrosis, area of narrowing at top of pelvis consistent with CT scan showing fluid collection. Renal pelvis with potential lower pole fistula. A Sensor guidewire was placed under fluoroscopy and a good coil was seen within the renal pelvis. A 6 Jordanian by 22 cm double J stent was advanced over the wire and up to the level of the renal pelvis under fluoroscopic and direct visualization. The stent was seen with appropriate coil within the renal pelvis and in the bladder after deployment. The patient tolerated the procedure well and was transferred in a stable condition to the recovery area. Pathology: Drains: Stent as above
[2023-04-25] MEDS: Phenazopyridine HCL 100 MG TABLET PO (21:22)
[2023-04-25 22:07] LABS: Glucose, Whole Blood 141 mg/dL (60-115)
[2023-04-25] MEDS: vancomycin HCL 1,000 MG in 0.9 % Sodium Chloride 250 ML 270 MG IV (22:10)
[2023-04-25] MEDS: Atorvastatin Calcium 10 MG TABLET PO (22:23)
--- NOTE | 2023-04-26 00:40 | MHC.PIE ---
p; pt noted with unsteady gait, pt educated on use of call bells and bed alarms with no result. i; camera placed in room p; pt screaming at staff to take camera out of room i; pt educated on safty multiple times e; pt cont to scream and yell to get camera out of room. camera taken out of room for camera making pt more agitated, anxious and argumentative with staff. door kept open, bed alarm in place, red socks and falling star in place, will cont to monitor
[2023-04-26 03:21] VITALS: BP 161/75; PULSE 84; RESP 16; TEMP 36.3; O2SAT 97
[2023-04-26] MEDS: Acetaminophen 325 MG TABLET 650 MG PO ×2 (04:29→10:33)
[2023-04-26] MEDS: Levothyroxine Sodium 112 MCG TABLET PO (04:29)
[2023-04-26 06:07] LABS: Creatinine Clr Calc Pharmacy 42.8; Estimated Glomerular Filt Rate 41
[2023-04-26 07:14] VITALS: BP 140/63; PULSE 80; RESP 18; TEMP 36.7; O2SAT 94
[2023-04-26 07:15] LABS: Glucose, Whole Blood 107 mg/dL (60-115)
[2023-04-26] MEDS: Furosemide 40 MG TABLET PO (09:15)
[2023-04-26] MEDS: Cholecalciferol (Vitamin D3) 25 MCG TABLET 50 MCG PO (09:15)
[2023-04-26] MEDS: Piperacillin Sodium/Tazobactam 4.5 GM in 0.9 % Sodium Chloride 100 ML IV ×2 (09:16→16:13)
[2023-04-26] MEDS: lisinopriL 10 MG TABLET PO (09:18)
[2023-04-26 11:08] LABS: Glucose, Whole Blood 112 mg/dL (60-115)
--- NOTE | 2023-04-26 12:06 | HO.POSTANES ---
Post Anesthesia Evaluation Post Anesthesia Evaluation Date of Service: 04/26/23 Vital Signs: Vital Signs Temp Pulse Resp BP Pulse Ox O2 Del Method 04/26/23 07:14 98.1 F 80 18 140/63 H 94 Room Air 04/26/23 03:21 97.4 F 84 16 161/75 H 97 Room Air 04/26/23 00:37 Room Air Anesthesia: General Mental Status: Awake Pain Control: Satisfactory Nausea/Vomiting: None Hydration: Adequate Anesthesia-Related Issues: No Anes. Related Issues
--- NOTE | 2023-04-26 13:20 | HO.PM.IMPN ---
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 Physical Exam Vital Signs: Vital Signs: Last Vital Signs Temp 98.1 F 04/26/23 07:14 Pulse 80 04/26/23 07:14 Resp 18 04/26/23 07:14 BP 140/63 H 04/26/23 07:14 Pulse Ox 94 04/26/23 07:14 O2 Del Method Room Air 04/26/23 07:14 O2 Flow Rate 2 04/25/23 20:59 BMI result Body Mass Index 37.0 Appearance: Alert.? Oriented X3.? cvs: rrr, [id number] , no murmur res: clear to auscultation ,no rhonchii or wheezing abd: no rebound or guarding ,nt, bs present. ext pulses present , no cyanosis . skin-right low back wound -mild yellowish discharge, no pain or erythema or flacutation. neuro: axo3 , nonfocal. Objective Data Active Medications Acetaminophen (Acetaminophen 325 Mg Tablet) 650 mg PO Q6H PRN PRN Reason: Pain, Mild (Pain Scale 1-3) Last Admin: 04/26/23 10:33 Dose: 650 mg Documented By: YESSI Atorvastatin Calcium (Atorvastatin Calcium 10 Mg Tablet) 10 mg PO DAILY@1700 [facility]HELIA Last Admin: 04/25/23 22:23 Dose: 10 mg Documented By: RUFUS Dextrose (Dextrose 50 % 25 Gm/50 Ml Syringe) 25 gm IVPUSH Q15M PRN; Protocol PRN Reason: per Hypoglycemia Standing Ord. Furosemide (Furosemide 40 Mg Tablet) 40 mg PO DAILY [facility]; Protocol Last Admin: 04/26/23 09:15 Dose: 40 mg Documented By: YESSI Glucose (Glucose Gel 15 Gm Gel..Gram.) 15 gm PO Q15M PRN; Protocol PRN Reason: per Hypoglycemia Standing Ord. Piperacillin Sod/Tazobactam (Sod 4.5 gm/ Sodium Chloride) 100 mls @ 200 mls/hr IV Q8H [facility] Last Infusion: 04/26/23 10:12 Dose: Infused Documented By: YESSI Vancomycin HCl 1,000 mg/ (Sodium Chloride) 270 mls @ 270 mls/hr IV Q24H [facility] Last Infusion: 04/25/23 23:15 Dose: Infused Documented By: RUFUS Sodium Chloride (Ns) 1,000 mls @ 100 mls/hr IVCONT .Q10H [facility] Last Admin: 04/26/23 08:56 Dose: Not Given Documented By: YESSI Non-Admin Reason: IV Running Dextrose/Sodium Chloride (D5ns) 1,000 mls @ 100 mls/hr IVCONT .Q10H [facility] Last Admin: 04/26/23 08:56 Dose: Not Given Documented By: YESSI Non-Admin Reason: IV Running Insulin Human Lispro (Insulin Lispro 100 Unit/Ml 3 Ml Vial) 0 unit SUBCUT QIDACHS [facility]; Protocol Last Admin: 04/26/23 11:11 Dose: Not Given Documented By: YESSI Non-[place] Reason: No Insulin Coverage Levothyroxine Sodium (Levothyroxine Sodium 112 Mcg Tablet) 112 mcg PO DAILY@0600 [facility] Last Admin: 04/26/23 04:29 Dose: 112 mcg Documented By: RUFUS Lisinopril (Lisinopril 10 Mg Tablet) 10 mg PO DAILY [facility]; Protocol Last Admin: 04/26/23 09:18 Dose: 10 mg Documented By: YESSI Melatonin (Melatonin 3 Mg Tablet) 6 mg PO BEDTIME PRN PRN Reason: Insomnia Ondansetron HCl (Ondansetron Hcl 4 Mg/2 Ml Vial) 4 mg IVPUSH Q8H PRN PRN Reason: Nausea and Vomiting Pharmacy Consult (Consult Rx Vancomycin Dosing) 1 each MISCELLANE DAILY PRN PRN Reason: Consult order Sodium Chloride (0.9 % Sodium Chloride Flush 3 Ml Syringe) 3 ml IVFLUSH QSHIFT [facility] Last Admin: 04/26/23 08:56 Dose: Not Given Documented By: YESSI Non-Admin Reason: IV Running Vitamin D (Cholecalciferol (Vitamin D3) 25 Mcg Tablet) 50 mcg PO DAILY [facility] Last Admin: 04/26/23 09:15 Dose: 50 mcg Documented By: YESSI Labs 04/25/23 04:32 04/27/23 05:35 Labs: Laboratory Results - last 24 hr 04/25/23 04/25/23 04/26/23 17:17 22:02 05:04 Hold Purple Top SEE NOTE Estim Creat Clear Calc 42.8 Estimated GFR 41 POC Glucose 107 141 H 04/26/23 04/26/23 07:05 10:58 Hold Purple Top Estim Creat Clear Calc Estimated GFR POC Glucose 107 112 Microbiology Microbiology Results: Microbiology 04/25/23 01:53 Blood Culture - Preliminary Blood - Venous No growth after 24 hours. Assessment and Plan (1) Renal abscess: Status: Acute (2) Wound infection: Status: Acute Plan 78-year-old female with pertinent history of history of retroperitoneal abscess, hypothyroidism, yml-nmzpepm-stunstnog diabetes mellitus, mood disorder who presents to the emergency department for evaluation of fevers. 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 Sepsis resolved 04/24 -IV vanco/zosyn (initiated 04/23) -dry/sterile dressings seen by urology-s/p cystoscopy, stent placement( 04/24),follow CBC, cultures urology follow up -possible IR for right fistulogram to clearfy question tunneling fistual to R renal abscess. Id eval. staghorn calculus- present prior to admission -CT abdomen/pelvis shows 1.9 cm calculus in the mid right kidney and partial staghorn calculus in the lower pole collecting system per Urology-s/p cystoscopy/stent placement moniter for today for renal function and cellulitis site monitering Cjh-fsrxumo-gzttrzgos diabetes mellitus -POC glucose, diabetic diet -Humalog on sliding scale Hypothyroidism-continue levothyroxine. Essential hypertension-blood pressure reasonably controlled. continue Lasix, lisinopril HLD-continue statin severe obesity with BMI > 36-advised for weight loss and cut down calories . DVT prophylaxis: Defer Lovenox until urology evaluation. 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
[2023-04-26 15:08] VITALS: BP 128/59; PULSE 75; RESP 18; TEMP 36.6; O2SAT 95
[2023-04-26 16:11] LABS: Glucose, Whole Blood 123 mg/dL (60-115)
[2023-04-26] MEDS: 0.9 % Sodium Chloride 1,000 ML 100 ML IVCONT (16:13)
[2023-04-26] MEDS: 0.9 % Sodium Chloride Flush 3 ML SYRINGE IVFLUSH (16:14)
[2023-04-26] MEDS: Atorvastatin Calcium 10 MG TABLET PO (16:17)
--- NOTE | 2023-04-26 16:26 | HO.WOUND ---
Wound Consult: Initial 78yr old?Female admitted to [facility] [place] on 04[place]24 - See progress notes and H&P for detailed history.? Wound consult placed for Right Flank wound - present on admission. 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 Chart review reveals possible Philip-cutaneous fistula formation. In an effort to allow for spontaneous closure wound should not be packed. Drainage collection will allow for measurement to assess volume and closure capabilities. Currently packed with Plain packing strip per out patient wound care orders - with current suspected fistula will apply pouch for drainage collection. Patient agreeable to assessment and photo documentation.? Wound location is with in flank skin fold - red pink moist wound bed 1.2cm x 0.4cm x with depth probing to 6cm with out meeting significant resistance. TT to Dr. Reis - no call back will reassess 04/27/23. Recommendations: Right Flank Suspected Fistula - Cleanse periwound with NS moist gauze, apply skin prep to periwound. Measure and cut opening on pouch to collect drainage and document drainage in I&O in charting. Change pouch every 3-5 days or when leaking. Do not reinforce with tape. Re-consult wound care Nurse for wound deterioration or wound changes.
[2023-04-26 19:29] VITALS: BP 153/63; PULSE 89; RESP 18; TEMP 36.8; O2SAT 95
[2023-04-26 20:02] LABS: Glucose, Whole Blood 143 mg/dL (60-115)
[2023-04-26 21:42] LABS: Vancomycin Random 11.6 mcg/mL (15-20)
--- NOTE | 2023-04-26 21:54 | HE.PHANOTE ---
RE: VANCO DOSING Random came back as 11.6. Due to patient's age and poor renal function (but improving), dose was increased to 1250 mg q24h (not too aggressive). Next random is scheduled for 04/27/23 @2100.
[2023-04-26] MEDS: vancomycin HCL 1,250 MG in 0.9 % Sodium Chloride 250 ML 166.67 MG IV (22:41)
[2023-04-27] MEDS: Piperacillin Sodium/Tazobactam 4.5 GM in 0.9 % Sodium Chloride 100 ML IV ×3 (00:21→18:18)
[2023-04-27] MEDS: Acetaminophen 325 MG TABLET 650 MG PO (01:18)
[2023-04-27 03:30] VITALS: BP 120/56; PULSE 80; RESP 18; TEMP 36.6; O2SAT 95
[2023-04-27] MEDS: 0.9 % Sodium Chloride 1,000 ML 100 ML IVCONT (03:43)
[2023-04-27] MEDS: Levothyroxine Sodium 112 MCG TABLET PO (05:37)
[2023-04-27 07:12] LABS: Creatinine Clr Calc Pharmacy 41.7; Estimated Glomerular Filt Rate 40
[2023-04-27 07:25] LABS: Glucose, Whole Blood 94 mg/dL (60-115)
[2023-04-27 07:57] VITALS: BP 145/70; PULSE 75; RESP 16; TEMP 36.1; O2SAT 94
--- NOTE | 2023-04-27 09:14 | P.PNUR_ITS ---
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 with hydroureteronephrosis from prior abcess scarring Creatinine falling - 1.5 to 1.3 suggestive of decreased Cr reabsorption may DC from urology perspective Physical Exam 2 Vital Signs: Vital Signs: Last Vital Signs Temp 97 F 04/27/23 07:57 Pulse 75 04/27/23 07:57 Resp 16 04/27/23 07:57 BP 145/70 H 04/27/23 07:57 Pulse Ox 94 04/27/23 07:57 O2 Del Method Room Air 04/27/23 07:57 O2 Flow Rate 2 04/25/23 20:59 BMI result Body Mass Index 37.0 Const: General: cooperative, healthy appearing, comfortable and no acute distress Orientation/consciousness: patient oriented x3 HEENT: Face and sinus: Yes normal facial exam Mouth: moist mucous membranes Neck: Neck: Yes normal visual inspection, Yes full ROM and Yes trachea midline Chest: Chest palpation & inspection: normal inspection of the chest Resp: Effort & Inspection: normal respiratory effort, able to speak in complete sentences and no respiratory distress GI: Inspection: Yes normal to inspection Back/Spine/Pelvis: Cervical Spine: normal cervical lordosis Thoracic/Lumbar Spine: thoracic and lumbar spine normal to inspection Skin: General skin exam: no rashes or lesions noted Neuro: General: patient oriented x3, tone normal and moves all extremities Extrem: General: Yes normal to inspection and Yes capillary refill normal Urology Results Labs 04/25/23 04:32 04/27/23 05:35 Labs: Laboratory Results - last 24 hr 04/26/23 04/26/23 04/26/23 10:58 15:49 19:53 Creatinine Estim Creat Clear Calc Estimated GFR POC Glucose 112 123 H 143 H Random Vancomycin 04/26/23 04/27/23 04/27/23 21:03 05:35 07:20 Creatinine 1.30 Estim Creat Clear Calc 41.7 Estimated GFR 40 POC Glucose 94 Random Vancomycin 11.6 L Progress Note: A&P Assessment and plan (1) Renal abscess: Status: Acute (2) Hydroureteronephrosis: Status: Acute Plan 6 week f/u outpatient Time Spent With Patient Time: Total time managing care of this patient today ____ minutes. Progress Note: Quality Stroke Does the patient have a stroke diagnosis?: No
[2023-04-27] MEDS: Furosemide 40 MG TABLET PO (09:19)
[2023-04-27] MEDS: lisinopriL 10 MG TABLET PO (09:19)
[2023-04-27] MEDS: Cholecalciferol (Vitamin D3) 25 MCG TABLET 50 MCG PO (09:19)
[2023-04-27 11:38] LABS: Glucose, Whole Blood 135 mg/dL (60-115)
--- NOTE | 2023-04-27 11:45 | P.PNIM_ITS ---
Subjective Subjective Date of Service: 04/27/23 Interval History: sepsis, open wound with question of tunneling fistula with renal abscess Review of Systems right flank pain , no fevers Physical Exam 2 Vital Signs: Vital Signs: Last Vital Signs Temp 97 F 04/27/23 07:57 Pulse 75 04/27/23 07:57 Resp 16 04/27/23 07:57 BP 145/70 H 04/27/23 07:57 Pulse Ox 94 04/27/23 07:57 O2 Del Method Room Air 04/27/23 07:57 O2 Flow Rate 2 04/25/23 20:59 BMI result Body Mass Index 37.0 Appearance: Alert.? Oriented X3.? cvs: rrr, [id number] , no murmur res: clear to auscultation ,no rhonchii or wheezing abd: no rebound or guarding ,nt, bs present. ext pulses present , no cyanosis . skin-right low back wound -mild yellowish discharge, no pain or erythema or flacutation. neuro: axo3 , nonfocal. Objective Data Active Medications Acetaminophen (Acetaminophen 325 Mg Tablet) 650 mg PO Q6H PRN PRN Reason: Pain, Mild (Pain Scale 1-3) Last Admin: 04/27/23 01:18 Dose: 650 mg Documented By: ALLA Atorvastatin Calcium (Atorvastatin Calcium 10 Mg Tablet) 10 mg PO DAILY@1700 NOHELIA Last Admin: 04/26/23 16:17 Dose: 10 mg Documented By: YESSI Dextrose (Dextrose 50 % 25 Gm/50 Ml Syringe) 25 gm IVPUSH Q15M PRN; Protocol PRN Reason: per Hypoglycemia Standing Ord. Furosemide (Furosemide 40 Mg Tablet) 40 mg PO DAILY [facility]; Protocol Last Admin: 04/27/23 09:19 Dose: 40 mg Documented By: YESSI Glucose (Glucose Gel 15 Gm Gel..Gram.) 15 gm PO Q15M PRN; Protocol PRN Reason: per Hypoglycemia Standing Ord. Piperacillin Sod/Tazobactam (Sod 4.5 gm/ Sodium Chloride) 100 mls @ 200 mls/hr IV Q8H [facility] Last Admin: 04/27/23 09:19 Dose: 200 mls/hr Documented By: YESSI Dextrose/Sodium Chloride (D5ns) 1,000 mls @ 100 mls/hr IVCONT .Q10H [facility] Last Admin: 04/27/23 04:05 Dose: Not Given Documented By: ALLA Non-Admin Reason: IV Running Vancomycin HCl 1,250 mg/ (Sodium Chloride) 250 mls @ 166.667 mls/hr IV Q24H [facility] Last Infusion: 04/27/23 00:11 Dose: Infused Documented By: ALLA Insulin Human Lispro (Insulin Lispro 100 Unit/Ml 3 Ml Vial) 0 unit SUBCUT QIDACHS [facility]; Protocol Last Admin: 04/27/23 07:49 Dose: Not Given Documented By: YESSI Non-Admin Reason: No Insulin Coverage Levothyroxine Sodium (Levothyroxine Sodium 112 Mcg Tablet) 112 mcg PO DAILY@0600 [facility] Last Admin: 04/27/23 05:37 Dose: 112 mcg Documented By: ALLA Lisinopril (Lisinopril 10 Mg Tablet) 10 mg PO DAILY [facility]; Protocol Last Admin: 04/27/23 09:19 Dose: 10 mg Documented By: YESSI Melatonin (Melatonin 3 Mg Tablet) 6 mg PO BEDTIME PRN PRN Reason: Insomnia Ondansetron HCl (Ondansetron Hcl 4 Mg/2 Ml Vial) 4 mg IVPUSH Q8H PRN PRN Reason: Nausea and Vomiting Pharmacy Consult (Consult Rx Vancomycin Dosing) 1 each MISCELLANE DAILY PRN PRN Reason: Consult order Sodium Chloride (0.9 % Sodium Chloride Flush 3 Ml Syringe) 3 ml IVFLUSH QSHIFT [facility] Last Admin: 04/27/23 07:49 Dose: Not Given Documented By: YESSI Non-Admin Reason: IV Running Vitamin D (Cholecalciferol (Vitamin D3) 25 Mcg Tablet) 50 mcg PO DAILY [facility] Last Admin: 04/27/23 09:19 Dose: 50 mcg Documented By: YESSI Labs 04/25/23 04:32 04/27/23 05:35 Labs: Laboratory Results - last 24 hr 04/26/23 04/26/23 04/26/23 15:49 19:53 21:03 Estim Creat Clear Calc Estimated GFR POC Glucose 123 H 143 H Random Vancomycin 11.6 L 04/27/23 04/27/23 04/27/23 05:35 07:20 11:32 Estim Creat Clear Calc 41.7 Estimated GFR 40 POC Glucose 94 135 H Random Vancomycin Microbiology Microbiology Results: Microbiology 04/25/23 01:53 Blood Culture - Preliminary Blood - Venous No growth after 48 hours. Assessment and Plan (1) Hydroureteronephrosis: Status: Acute (2) Wound infection: Status: Acute Plan 78-year-old female with pertinent history of history of retroperitoneal abscess, hypothyroidism, pny-prxktkd-ugbntcyay diabetes mellitus, mood disorder who presents to the emergency department for evaluation of fevers. 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 Sepsis resolved 04/24 -IV vanco/zosyn (initiated 04/23) -dry/sterile dressings seen by urology-s/p cystoscopy, stent placement( 04/24),follow CBC, cultures urology follow up -possible IR for right fistulogram to clearfy question tunneling fistual to R renal abscess. Id eval. staghorn calculus- present prior to admission -CT abdomen/pelvis shows 1.9 cm calculus in the mid right kidney and partial staghorn calculus in the lower pole collecting system per Urology-s/p cystoscopy/stent placement moniter for today for renal function and cellulitis site monitering Awe-lhdxuaf-cicxpcham diabetes mellitus -POC glucose, diabetic diet -Humalog on sliding scale Hypothyroidism-continue levothyroxine. Essential hypertension-blood pressure reasonably controlled. continue Lasix, lisinopril HLD-continue statin severe obesity with BMI > 36-advised for weight loss and cut down calories . DVT prophylaxis: Defer Lovenox until urology evaluation. 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
--- NOTE | 2023-04-27 11:55 | HO.WOUND ---
Wound Consult: Follow up 78yr old?Female admitted to [facility] [place] on 04/24 - See progress notes and H&P for detailed history.? Wound consult Follow up for Drainage pouch assessment to Right Flank. 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 Chart review reveals possible [place]-cutaneous fistula formation. In an effort to allow for spontaneous closure wound should not be packed. Drainage collection will allow for measurement to assess volume and closure capabilities. Wound location is with in flank skin fold - red pink moist wound bed 1.2cm x 0.4cm x with depth probing to 6cm with out meeting significant resistance. Todays assessment reveals intact pouch (Coloplast [id number] was used) small amount of creamy drainage noted at opening no measurable amount noted at this time. Will continue to monitor to see if topical absorptive dressing can be utilized instead. Inpatient wound care nurse will continue to follow. Recommendations: Right Flank Suspected Fistula - Cleanse periwound with NS moist gauze, apply skin prep to periwound. Measure and cut opening on pouch to collect drainage and document drainage in I&O in charting. Change pouch every 3-5 days or when leaking. Do not reinforce with tape. Re-consult wound care Nurse for wound deterioration or wound changes.
--- NOTE | 2023-04-27 15:33 | MHC.CM.PN ---
per rounds pt to be seen by urology pror to dc
--- NOTE | 2023-04-27 15:34 | MHC.CM.PN ---
per rounds pt pt is ready for dc property that pt owns with son is the issue with the rehab at the moment
[2023-04-27 15:36] VITALS: BP 118/62; PULSE 65; RESP 16; TEMP 36.4; O2SAT 97
[2023-04-27] MEDS: bisacodyL 5 MG TABLET.DR 20 MG PO (16:23)
[2023-04-27] MEDS: 0.9 % Sodium Chloride Flush 3 ML SYRINGE IVFLUSH (16:26)
[2023-04-27 16:41] LABS: Glucose, Whole Blood 160 mg/dL (60-115)
[2023-04-27] MEDS: Atorvastatin Calcium 10 MG TABLET PO (18:10)
[2023-04-27] MEDS: PEG 3350/Na Sulf,Bicarb,Cl/KCL 4,000 ML SOLN.RECON 4000 ML PO (19:11)
[2023-04-27 19:38] VITALS: BP 180/77; PULSE 73; RESP 18; TEMP 36.2; O2SAT 97
[2023-04-27 20:03] VITALS: BP 152/78; PULSE 71; RESP 20; TEMP 36.2; O2SAT 97
[2023-04-27 20:21] LABS: Glucose, Whole Blood 128 mg/dL (60-115)
[2023-04-28] VITALS (9 sets, daily range): BP systolic 104–147; BP diastolic 52–78; PULSE 70–88; RESP 14–24; TEMP 36.3–36.8; O2SAT 95–98
[2023-04-28] MEDS: Piperacillin Sodium/Tazobactam 4.5 GM in 0.9 % Sodium Chloride 100 ML IV ×4 (00:16→23:55)
[2023-04-28] MEDS: 0.9 % Sodium Chloride Flush 3 ML SYRINGE IVFLUSH ×3 (00:17→18:06)
[2023-04-28] MEDS: Levothyroxine Sodium 112 MCG TABLET PO (05:34)
[2023-04-28 06:24] LABS: Creatinine Clr Calc Pharmacy 53.2; Estimated Glomerular Filt Rate 53
[2023-04-28 07:56] LABS: Glucose, Whole Blood 90 mg/dL (60-115)
[2023-04-28] MEDS: Cholecalciferol (Vitamin D3) 25 MCG TABLET 50 MCG PO (07:56)
[2023-04-28] MEDS: Furosemide 40 MG TABLET PO (07:56)
[2023-04-28] MEDS: lisinopriL 10 MG TABLET PO (07:56)
--- NOTE | 2023-04-28 08:36 | P.CNGI_ITS ---
History of Present Illness Data of Consult Service Date: 04/28/23 Requesting physician: Clint Webb Primary Care Provider: Preston Wang DO HPI Reason for consult: abn imaging 78-year-old female with history of retroperitoneal abscess, hypothyroidism, [id number]-[id number] diabetes mellitus, susepcted cirrhosis, mood disorder who I am seeing for assessment for abn imaging. Patient initially presented with fevers and chills along with malaise and fatigue. 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 She denied cough, abdominal pain, dysuria. Seen by urology and had stent placed. Imaging did show wall thickening of the sigmoid colon. She denies any recent GI symptoms she did have diverticulitis [address] imaging with sigmoid thickening then as well Review of Systems 2 Review of Systems: Constitutional : No Weight loss, ENT/Mouth : No sore throat, No Rhinorrhea Eyes: No Swelling, No Redness Cardiovascular : No Chest Pain, No SOB, No Edema Respiratory : No Cough, No Sputum, No Wheezing Gastrointestinal : see HPI Genitourinary : NO Dysuria, No Urinary Frequency, No Hematuria, No Urgency Musculoskeletal : + joint pain, No Myalgias, No Joint Swelling Skin : No Skin Lesions, + rash Neuro : No Weakness, No Numbness, No Dizziness, No Headache Psych : No Anxiety/Panic, No Depression Heme/Lymph: No Bruising, No Lymphadenopathy Endocrine : No Polyuria, No Polydipsia All other systems reviewed and are negative. [facility] Past Medical History Medical History Frequency of urination Vaginal burning Vaginal itching PMB (postmenopausal bleeding) Cirrhosis of liver Does mobilize using walker PONV (postoperative nausea and vomiting) Left foot drop Fatty liver Fibromyalgia Neuropathy RBBB Cholelithiasis Staghorn calculus Renal calculus, bilateral Renal calyceal dilation determined by ultrasound UTI (urinary tract infection) Diabetes mellitus, type II Ganglion cyst Plantar fasciitis Anxiety OA (osteoarthritis) Obstructive airway disease Hypercholesterolemia Low back pain Sciatica Hypothyroidism HTN (hypertension) Primary osteoarthritis of right knee Retained ureteral stent Renal stones Staghorn calculus Perirectal abscess Family History Family History Father Alcohol dependence Mother CHF (congestive heart failure) Cancer of breast Mother No problems noted. Other Alcoholic cirrhosis Surgical History Surgical History Status post cystoscopy with ureteral stent placement History of lumbar discectomy History of lumpectomy of both breasts History of cystoscopy History of lithotripsy Hx of colonoscopy History of surgery Social History Social History Household Members: None Housing: House Do you presently have visiting nurse or other home services: No Alcohol intake: never Comment: given pyridium Patient Tobacco Use Status: Former Tobacco user Quit Date: 1986 Tobacco use type: Cigarette Years Smoked: 27 Smoked in Last 30 Days: No Second Hand Smoke Exposure: No Use of substances other than those prescribed or required for medical reasons: No Currently Displaying Signs/Symptoms of Drug Intoxication Withdrawal: No Have you been hit, kicked, punched, or otherwise hurt by someone within the past year? If so, by whom?: No Do you feel safe in your current relationship?: No Current Relationship Is there a partner from a previous relationship who is making you feel unsafe now?: No Are you made to feel afraid or neglected: No Are you DNR?: No Advance Directives: Yes Advance Directives on File: Yes Advance Directives Date on File: 04/06/21 Do you have thoughts of harming others: None Do you have a plan to hurt others: No Plan Recently lost weight without trying: No How much weight loss: 2-13 pounds Eating poorly because of decreased appetite: No Nutrition screen score: 1 Nutrition Risks: No Nutritional Risk Patient : No Poor oral hygiene: No service: No Current occupational status: disabled Meds Allergies Allergy/AdvReac Type Severity Reaction Status Date / Time chlorpheniramine Allergy Severe HALLUCINATI Verified 04/20/23 11:49 [From TUSSIONEX] ONS escitalopram [ESCITALOPRAM] Allergy Severe DISSOCIATIVE Verified 04/20/23 11:49 REACTION fluoxetine [FLUOXETINE] Allergy Severe DISSOCIATIVE Verified 04/20/23 11:49 REACTION hydrocodone [From TUSSIONEX] Allergy Severe HALLUCINATI Verified 04/20/23 11:49 ONS ibuprofen [IBUPROFEN] Allergy Severe THROAT Verified 04/20/23 11:49 SWELLING Sulfa (Sulfonamide Allergy Severe DYSPNEA Verified 04/20/23 11:49 Antibiotics) [SULFA (SULFONAMIDE ANTIBIOTICS)] clarithromycin [From BIAXIN] Allergy Intermediate ABD.PAIN Verified 04/20/23 11:49 duloxetine [DULOXETINE] Allergy Intermediate FACIAL Verified 04/20/23 11:49 NUMBNESS erythromycin base Allergy Intermediate RASH Verified 04/20/23 11:49 [ERYTHROMYCIN BASE] Penicillins [PENICILLINS] Allergy Intermediate RASH Verified 04/20/23 11:49 tetracycline [TETRACYCLINE] Allergy Intermediate DIARRHEA Verified 04/20/23 11:49 ciprofloxacin [From CIPRO] Allergy Unknown ANAPHYLAXIS Verified 04/20/23 11:49 codeine [CODEINE] Allergy Unknown TINNITIS Verified 04/20/23 11:49 guaifenesin Allergy Unknown Unknown Verified 04/20/23 11:49 levofloxacin [From Levaquin] Allergy Unknown Unknown Verified 04/20/23 11:49 pregabalin Allergy Unknown Unknown Verified 04/20/23 11:49 Active Medications: Current Medications Acetaminophen (Acetaminophen 325 Mg Tablet) 650 mg PO Q6H PRN PRN Reason: Pain, Mild (Pain Scale 1-3) Last Admin: 04/27/23 01:18 Dose: 650 mg Atorvastatin Calcium (Atorvastatin Calcium 10 Mg Tablet) 10 mg PO DAILY@1700 NOHELIA Last Admin: 04/27/23 18:10 Dose: 10 mg Benzonatate (Benzonatate 100 Mg Capsule) 100 mg PO TID PRN PRN Reason: Cough Dextrose (Dextrose 50 % 25 Gm/50 Ml Syringe) 25 gm IVPUSH Q15M PRN; Protocol PRN Reason: per Hypoglycemia Standing Ord. Furosemide (Furosemide 40 Mg Tablet) 40 mg PO DAILY [facility]; Protocol Last Admin: 04/28/23 07:56 Dose: 40 mg Glucose (Glucose Gel 15 Gm Gel..Gram.) 15 gm PO Q15M PRN; Protocol PRN Reason: per Hypoglycemia Standing Ord. Piperacillin Sod/Tazobactam (Sod 4.5 gm/ Sodium Chloride) 100 mls @ 200 mls/hr IV Q8H [facility] Last Admin: 04/28/23 07:57 Dose: 200 mls/hr Insulin Human Lispro (Insulin Lispro 100 Unit/Ml 3 Ml Vial) 0 unit SUBCUT QIDACHS [facility]; Protocol Last Admin: 04/28/23 07:39 Dose: Not Given Levothyroxine Sodium (Levothyroxine Sodium 112 Mcg Tablet) 112 mcg PO DAILY@0600 [facility] Last Admin: 04/28/23 05:34 Dose: 112 mcg Lisinopril (Lisinopril 10 Mg Tablet) 10 mg PO DAILY [facility]; Protocol Last Admin: 04/28/23 07:56 Dose: 10 mg Melatonin (Melatonin 3 Mg Tablet) 6 mg PO BEDTIME PRN PRN Reason: Insomnia Ondansetron HCl (Ondansetron Hcl 4 Mg/2 Ml Vial) 4 mg IVPUSH Q8H PRN PRN Reason: Nausea and Vomiting Sodium Biphosphate/Sodium Phosphate (Sodium Phosphate,[place]-Dibasic 133 Ml Enema) 133 ml MI ONCE PRN PRN Reason: Consult order Sodium Chloride (0.9 % Sodium Chloride Flush 3 Ml Syringe) 3 ml IVFLUSH QSHIFT [facility] Last Admin: 04/28/23 08:01 Dose: 3 ml Vitamin D (Cholecalciferol (Vitamin D3) 25 Mcg Tablet) 50 mcg PO DAILY [facility] Last Admin: 04/28/23 07:56 Dose: 50 mcg Home Medications Medication Instructions Recorded Confirmed Last Taken Type levothyroxine 112 mcg tablet 112 mcg PO DAILY 08/28/20 04/25/23 04/24/23 History atorvastatin 10 mg tablet 1 tab PO DAILY@1700 04/05/21 04/25/23 04/24/23 History metformin 500 mg tablet,extended 1 tab PO DAILY@1700 04/06/21 04/25/23 04/18/23 History release 24 hr cholecalciferol (vitamin D3) 50 50 mcg PO DAILY 07/19/22 04/25/23 04/24/23 History mcg (2,000 unit) tablet (Vitamin D3) lisinopril 10 mg tablet 10 mg PO DAILY 07/19/22 04/25/23 04/24/23 History pyridoxine (vitamin B6) 100 mg 100 mg PO DAILY 04/25/23 04/25/23 04/24/23 History tablet Physical Exam 2 Vital Signs: Vital Signs: Last Vital Signs Temp 97.9 F 04/28/23 07:34 Pulse 78 04/28/23 07:34 Resp 16 04/28/23 07:34 BP 113/59 L 04/28/23 07:34 Pulse Ox 95 04/28/23 07:34 O2 Del Method Room Air 04/28/23 07:34 O2 Flow Rate 2 04/25/23 20:59 BMI result Body Mass Index 37.0 EXAM: GENERAL: The patient is obese relaxed VITAL SIGNS:see workflow HEENT: Nonicteric sclerae, PERRLA, EOMI. Oropharynx clear. Moist mucous membranes. Conjunctivae appear well perfused. No thyroid mass. CHEST: Chest wall is nontender. HEART: Regular rate and rhythm without murmurs. LUNGS: Clear to auscultation bilaterally. ABDOMEN: Soft, positive bowel sounds, nontender, no organomegaly.no flank tenderness SKIN: No rash, no excessive bruising, petechiae, or purpura. NEUROLOGIC: Cranial nerves II-XII intact without motor/sensory deficit. Psych: normal affect Results Labs 04/25/23 04:32 04/28/23 05:29 Labs: BMP 04/28/23 05:29 Creatinine 1.02 Microbiology Microbiology Results: Microbiology 04/25/23 01:53 Blood - Venous Blood Culture - Preliminary No growth after 48 hours. 04/24/23 15:48 Urine clean catch - Urine alonso top Urine Culture - Final Streptococcus viridans group Imaging CT scan - abdomen: Attestation: I personally reviewed and interpreted this imaging study as follows: (Gallstones, atherosclerosis, diverticulosis, and thickened sigmoid colon, nodular liver ) Assessment and Plan (1) Mural thickening of sigmoid colon: Status: Acute Plan 1/ abnormal imaging of colon with sigmoid thickening, recent issues with renal abscess and fistula 2/ possible REAL cirrhosis PLAN: 1/ Colonoscopy today for further assessment exclude neoplasia, IBD, ischemia 2/ o/p liver f/u and assessment, no evidence of decompensated cirrhosis at this time Procedures Date of Service Date of Service: 04/28/23
[2023-04-28] MEDS: Lactated Ringers 1,000 ML 50 ML IVCONT (10:58)
--- NOTE | 2023-04-28 11:32 | P.OP_ITS ---
Operative Note Operative Note Date of Service: 04/28/23 Narrative: Operative Information Procedure Description: Colonoscopy Indication: abn imaging of colon Anesthesia: MAC COLONOSCOPY Instrument: Olympus variable stiffness pediatric scope 190L-changed to EGd scope Colonoscopy Monitoring: Vital signs and clinical assessment, continuous EKG monitoring, Pulse oximetry, Carbon Dioxide monitoring and blood pressure monitoring were done throughout the procedure. Colon withdrawal time was 19 minutes. Procedure: The patient was placed in the left lateral decubitis position and pre-procedure medications were administered. After a digital rectal examination of the ano-rectum, the video colonoscope was inserted into the rectum and advanced through the colon to the cecum/TI. The colonoscope was slowly withdrawn in a retrograde panoramic fashion and the colon mucosa was carefully examined including a retroflexed view of the rectum. Findings and interventions are described below. Procedure Difficulty: difficult- very tight sigmoid used upper scope and pressure to reach cecum Findings: Terminal Ileum-normal Patchy edema destiny in the sigmoid, random colon bx taken Cecum:normal Ascending Colon: patchy edema Transverse Colon -normal Descending Colon:normal Sigmoid Colon: severe diverticulosis with luminal narrowing, edematous tissue Rectum: Retroflexion with small internal hemorrhoids seen, grade I Anorectum - normal Intervention: cold forceps bx Colon preparation: [place] Bowel Preparation Scale Right colon; 2 Transverse colon: 2 Left colon; 2 (0 = Unprepared colon segment with mucosa not seen due to solid stool that cannot be cleared. 1 = Portion of mucosa of the colon segment seen, but other areas of the colon segment not well seen due to staining, residual stool and/or opaque liquid. 2 = Minor amount of residual staining, small fragments of stool and/or opaque liquid, but mucosa of colon segment seen well. 3 = Entire mucosa of colon segment seen well with no residual staining, small fragments of stool or opaque liquid) Impression and Post Procedure Diagnosis: diverticulosis colonic edema-possibly from cirrhosis and portal hypertension internal hemorrhoids Plan: High fiber diet leaflet Avoid straining at stool, epsom salts and sitz bath, anusol supps or cream No further colon screens recommended given age await bx results Above findings were reviewed with the patient and relevant handouts were provided if indicated.
--- NOTE | 2023-04-28 11:32 | MHC.SHP ---
Pre-Procedural Eval Section A - 24 Hr Update-Section A only Date of Service: 04/28/23 The patient is an INPATIENT: Yes The patient has been examined within 24 hours of the surgical procedure. The History & Physical has been completed within 30 days and I have reviewed it.: Yes Section B - Complete if H&P > 30 days Chief Complaint: Fever Allergies: Allergies Allergy/AdvReac Type Severity Reaction Status Date / Time chlorpheniramine Allergy Severe HALLUCINATI Verified 04/20/23 11:49 [From TUSSIONEX] ONS escitalopram [ESCITALOPRAM] Allergy Severe DISSOCIATIVE Verified 04/20/23 11:49 REACTION fluoxetine [FLUOXETINE] Allergy Severe DISSOCIATIVE Verified 04/20/23 11:49 REACTION hydrocodone [From TUSSIONEX] Allergy Severe HALLUCINATI Verified 04/20/23 11:49 ONS ibuprofen [IBUPROFEN] Allergy Severe THROAT Verified 04/20/23 11:49 SWELLING Sulfa (Sulfonamide Allergy Severe DYSPNEA Verified 04/20/23 11:49 Antibiotics) [SULFA (SULFONAMIDE ANTIBIOTICS)] clarithromycin [From BIAXIN] Allergy Intermediate ABD.PAIN Verified 04/20/23 11:49 duloxetine [DULOXETINE] Allergy Intermediate FACIAL Verified 04/20/23 11:49 NUMBNESS erythromycin base Allergy Intermediate RASH Verified 04/20/23 11:49 [ERYTHROMYCIN BASE] Penicillins [PENICILLINS] Allergy Intermediate RASH Verified 04/20/23 11:49 tetracycline [TETRACYCLINE] Allergy Intermediate DIARRHEA Verified 04/20/23 11:49 ciprofloxacin [From CIPRO] Allergy Unknown ANAPHYLAXIS Verified 04/20/23 11:49 codeine [CODEINE] Allergy Unknown TINNITIS Verified 04/20/23 11:49 guaifenesin Allergy Unknown Unknown Verified 04/20/23 11:49 levofloxacin [From Levaquin] Allergy Unknown Unknown Verified 04/20/23 11:49 pregabalin Allergy Unknown Unknown Verified 04/20/23 11:49 Plan Diagnosis/Plan: Unchanged I have reviewed the history and physical and performed a pertinent physical examination on my patient. No changes have occurred unless specified. Time Spent With Patient Time: Total time managing care of this patient today ____ minutes.
[2023-04-28 11:38] LABS: Glucose, Whole Blood 101 mg/dL (60-115)
[2023-04-28 14:26] LABS: Glucose, Whole Blood 212 mg/dL (60-115)
[2023-04-28] MEDS: Acetaminophen 325 MG TABLET 650 MG PO (15:23)
--- NOTE | 2023-04-28 16:41 | P.PNUR_ITS ---
Subjective Subjective Date of Service: 04/28/23 Interval history: Sinogram - A right ureteral stent is present. Contrast is observed tracking through the abdominal wall and into the right retroperitoneal abscess cavity. No communication with the right kidney or collecting system, nor ureter Creatinine is fall into 1.0 Suggestive that there was right hydroureteronephrosis Continue wound care with wick Physical Exam 2 Vital Signs: Vital Signs: Last Vital Signs Temp 97.7 F 04/28/23 15:20 Pulse 70 04/28/23 15:20 Resp 18 04/28/23 15:20 BP 124/58 L 04/28/23 15:20 Pulse Ox 96 04/28/23 15:20 O2 Del Method Room Air 04/28/23 15:20 O2 Flow Rate 2 04/28/23 12:35 BMI result Body Mass Index 37.0 Const: General: cooperative, healthy appearing, comfortable and no acute distress Orientation/consciousness: patient oriented x3 HEENT: Face and sinus: Yes normal facial exam Mouth: moist mucous membranes Neck: Neck: Yes normal visual inspection, Yes full ROM and Yes trachea midline Chest: Chest palpation & inspection: normal inspection of the chest Resp: Effort & Inspection: normal respiratory effort, able to speak in complete sentences and no respiratory distress GI: Inspection: Yes normal to inspection Back/Spine/Pelvis: Cervical Spine: normal cervical lordosis Thoracic/Lumbar Spine: thoracic and lumbar spine normal to inspection Skin: General skin exam: no rashes or lesions noted Neuro: General: patient oriented x3, tone normal and moves all extremities Extrem: General: Yes normal to inspection and Yes capillary refill normal Urology Results Labs 04/25/23 04:32 04/28/23 05:29 Labs: Laboratory Results - last 24 hr 04/27/23 04/27/23 04/27/23 16:32 20:15 21:06 Hold Purple Top Creatinine Estim Creat Clear Calc Estimated GFR POC Glucose 160 H 128 H Random Vancomycin 12.0 L 04/28/23 04/28/23 04/28/23 05:29 07:25 11:13 Hold Purple Top SEE NOTE Creatinine 1.02 Estim Creat Clear Calc 53.2 Estimated GFR 53 POC Glucose 90 101 Random Vancomycin 04/28/23 14:21 Hold Purple Top Creatinine Estim Creat Clear Calc Estimated GFR POC Glucose 212 H Random Vancomycin Progress Note: A&P Assessment and plan (1) Hydroureteronephrosis: Status: Acute (2) Open wound of back, complicated: Status: Acute Plan Wound may benefit from wound VAC therapy Time Spent With Patient Time: Total time managing care of this patient today ____ minutes. Progress Note: Quality Stroke Does the patient have a stroke diagnosis?: No
[2023-04-28 16:47] LABS: Glucose, Whole Blood 93 mg/dL (60-115)
[2023-04-28] MEDS: Atorvastatin Calcium 10 MG TABLET PO (18:06)
[2023-04-28 20:08] LABS: Glucose, Whole Blood 137 mg/dL (60-115)
[2023-04-29] VITALS: O2SAT 97
[2023-04-29 03:36] VITALS: BP 154/72; PULSE 64; RESP 18; TEMP 36.5; O2SAT 98
[2023-04-29] MEDS: Levothyroxine Sodium 112 MCG TABLET PO (05:07)
[2023-04-29 06:20] LABS: Creatinine Clr Calc Pharmacy 43.1; Estimated Glomerular Filt Rate 41
[2023-04-29 06:47] VITALS: BP 150/72; PULSE 64; RESP 17; TEMP 36.6; O2SAT 95
[2023-04-29 06:57] LABS: Glucose, Whole Blood 107 mg/dL (60-115)
--- NOTE | 2023-04-29 07:41 | HO.POSTANES ---
Post Anesthesia Evaluation Post Anesthesia Evaluation Date of Service: 04/29/23 Vital Signs: Vital Signs Temp Pulse Resp BP Pulse Ox O2 Del Method 04/29/23 06:47 98 F 64 17 150/72 H 95 Room Air 04/29/23 03:36 97.7 F 64 18 154/72 H 98 Room Air 04/29/23 00:00 97 Room Air Anesthesia: TIVA Mental Status: Awake Pain Control: Satisfactory Nausea/Vomiting: None Hydration: Adequate Anesthesia-Related Issues: No Anes. Related Issues
[2023-04-29] MEDS: lisinopriL 10 MG TABLET PO (08:15)
[2023-04-29] MEDS: 0.9 % Sodium Chloride Flush 3 ML SYRINGE IVFLUSH ×2 (08:15→21:44)
[2023-04-29] MEDS: Cholecalciferol (Vitamin D3) 25 MCG TABLET 50 MCG PO (08:16)
[2023-04-29] MEDS: Furosemide 40 MG TABLET PO (08:16)
[2023-04-29] MEDS: Piperacillin Sodium/Tazobactam 4.5 GM in 0.9 % Sodium Chloride 100 ML IV (08:16)
[2023-04-29 11:31] LABS: Glucose, Whole Blood 123 mg/dL (60-115)
[2023-04-29] MEDS: Acetaminophen 325 MG TABLET 650 MG PO ×2 (12:07→18:16)
--- NOTE | 2023-04-29 14:27 | HO.WOUND ---
Wound Consult: Follow up 78yr old?Female admitted to [facility] on 04/24 - See progress notes and H&P for detailed history.? Wound consult follow up for Right Flank wound - present on admission. Patient reports she treats at wound clinic - she should continue to treat at outpatient wound clinic at time of D/C. Chart review reveals ruled out possible Mcculloch-cutaneous fistula formation by Dr. Daniel - Per Dr. Daniel ok to pack right flank wound. Collection pouch removed - skin intact no erythema noted pouch contains moderate amount of collection of exudate no odor creamy jon yellow drainage. Wound location is with in flank skin fold. Cleansed with NS, Lightly packed with 1/4 packing strip with wick for easily removal, covered with foam dressing for drainage absorption. Recommend to be changed daily. Patient and aware of recommendations and reports will continue to follow with outpt wound clinic. Recommendations: Right Flank - Cleanse with NS, Lightly packed with 1/4 packing strip be sure to leave wick for easily removal, covered with foam dressing or ABD Pad for drainage absorption. Recommend to be changed daily. Recommend continue outpatient wound care follow up. Re-consult wound care Nurse for wound deterioration or wound changes.
[2023-04-29] MEDS: metroNIDAZOLE 500 MG TABLET PO ×2 (14:47→21:44)
[2023-04-29] MEDS: cefuroxime axetiL 500 MG TABLET PO ×2 (14:48→21:44)
--- NOTE | 2023-04-29 15:03 | MHC.CM.PN ---
pt to be dcd 04/[address] rosen
--- NOTE | 2023-04-29 15:09 | HO.PM.IMPN ---
Subjective Subjective Date of Service: 04/29/23 Interval History: possible retroperitoneal collection ,back wound Review of Systems denies any new c/o no fever no discharge from wound multiple antibiotics allergies Physical Exam Vital Signs: Vital Signs: Last Vital Signs Temp 98 F 04/29/23 06:47 Pulse 64 04/29/23 06:47 Resp 17 04/29/23 06:47 BP 150/72 H 04/29/23 06:47 Pulse Ox 95 04/29/23 06:47 O2 Del Method Room Air 04/29/23 06:47 O2 Flow Rate 2 04/28/23 12:35 BMI result Body Mass Index 37.0 Appearance: Alert.? Oriented X3.? cvs: rrr, [id number] , no murmur res: clear to auscultation ,no rhonchii or wheezing abd: no rebound or guarding ,nt, bs present. ext pulses present , no cyanosis . skin-right low back wound -no discharge neuro: axo3 , nonfocal. Objective Data Active Medications Acetaminophen (Acetaminophen 325 Mg Tablet) 650 mg PO Q6H PRN PRN Reason: Pain, Mild (Pain Scale 1-3) Last Admin: 04/29/23 12:07 Dose: 650 mg Documented By: STEFANIA Atorvastatin Calcium (Atorvastatin Calcium 10 Mg Tablet) 10 mg PO DAILY@1700 [facility] Last Admin: 04/28/23 18:06 Dose: 10 mg Documented By: RODRIGUEZ Benzonatate (Benzonatate 100 Mg Capsule) 100 mg PO TID PRN PRN Reason: Cough Cefuroxime Axetil (Cefuroxime Axetil 500 Mg Tablet) 500 mg PO BID [facility] Last Admin: 04/29/23 14:48 Dose: 500 mg Documented By: STEFANIA Dextrose (Dextrose 50 % 25 Gm/50 Ml Syringe) 25 gm IVPUSH Q15M PRN; Protocol PRN Reason: per Hypoglycemia Standing Ord. Furosemide (Furosemide 40 Mg Tablet) 40 mg PO DAILY [facility]; Protocol Last Admin: 04/29/23 08:16 Dose: 40 mg Documented By: STEFANIA Glucose (Glucose Gel 15 Gm Gel..Gram.) 15 gm PO Q15M PRN; Protocol PRN Reason: per Hypoglycemia Standing Ord. Insulin Human Lispro (Insulin Lispro 100 Unit/Ml 3 Ml Vial) 0 unit SUBCUT QIDACHS [facility]; Protocol Last Admin: 04/29/23 11:52 Dose: Not Given Documented By: STEFANIA Non-Admin Reason: No Insulin Coverage Levothyroxine Sodium (Levothyroxine Sodium 112 Mcg Tablet) 112 mcg PO DAILY@0600 [facility] Last Admin: 04/29/23 05:07 Dose: 112 mcg Documented By: CARMEN Lisinopril (Lisinopril 10 Mg Tablet) 10 mg PO DAILY [facility]; Protocol Last Admin: 04/29/23 08:15 Dose: 10 mg Documented By: STEFANIA Melatonin (Melatonin 3 Mg Tablet) 6 mg PO BEDTIME PRN PRN Reason: Insomnia Metronidazole (Metronidazole 500 Mg Tablet) 500 mg PO Q8H [facility] Last Admin: 04/29/23 14:47 Dose: 500 mg Documented By: STEFANIA Ondansetron HCl (Ondansetron Hcl 4 Mg/2 Ml Vial) 4 mg IVPUSH Q8H PRN PRN Reason: Nausea and Vomiting Sodium Biphosphate/Sodium Phosphate (Sodium Phosphate,[place]-Dibasic 133 Ml Enema) 133 ml ME ONCE PRN PRN Reason: Consult order Sodium Chloride (0.9 % Sodium Chloride Flush 3 Ml Syringe) 3 ml IVFLUSH QSHIFT [facility] Last Admin: 04/29/23 08:15 Dose: 3 ml Documented By: STEFANIA Vitamin D (Cholecalciferol (Vitamin D3) 25 Mcg Tablet) 50 mcg PO DAILY [facility] Last Admin: 04/29/23 08:16 Dose: 50 mcg Documented By: STEFANIA Labs 04/25/23 04:32 04/29/23 05:28 Labs: Laboratory Results - last 24 hr 04/28/23 04/28/23 04/29/23 16:43 20:02 05:28 Hold Purple Top SEE NOTE Estim Creat Clear Calc 43.1 Estimated GFR 41 POC Glucose 93 137 H 04/29/23 04/29/23 06:53 11:27 Hold Purple Top Estim Creat Clear Calc Estimated GFR POC Glucose 107 123 H Assessment and Plan (1) Mural thickening of sigmoid colon: Status: Acute Plan 78-year-old female with pertinent history of history of retroperitoneal abscess, hypothyroidism, piu-sefwhrf-aciwdffuk diabetes mellitus, mood disorder who presents to the emergency department for evaluation of fevers. 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 The contrast then tracks down to the right along the iliopsoas bursa) d/w with urology and Id-receomended to switch to po ceftin/flagyl for 10 days considering multiple antibiotic allergies, monitor 1 day on p.o. antibiotic to see if any allergic reaction. staghorn calculus- present prior to admission -CT abdomen/pelvis shows 1.9 cm calculus in the mid right kidney and partial staghorn calculus in the lower pole collecting system per Urology-s/p cystoscopy/stent placement moniter for today for renal function and cellulitis site monitering abnormal imaging of colon with sigmoid thickening: seen by Gi -s/p colonoscopy:has diverticulosis ,internal haemorroids,colon biopsy done patient will need to follow up outpatient Hvy-qavpolp-jxxrhmpcu diabetes mellitus -POC glucose, diabetic diet -Humalog on sliding scale Hypothyroidism-continue levothyroxine. Essential hypertension-blood pressure reasonably controlled. continue Lasix, lisinopril HLD-continue statin severe obesity with BMI > 36-advised for weight loss and cut down calories . DVT prophylaxis: Defer Lovenox until urology evaluation. On SCDs ongoing inpatient stay for management of sepsis with purulent cellulitis and tunneling fistula to small retroperitneal abscess requiring broad-spectrum antibiotics-switched to po antibiotics -will moniter today on po antibiotics for 24 hrs ( since patient has multiple antibiotics allergies),wound care followup. Quality Stroke Does the patient have a stroke diagnosis?: No VTE Prior VTE?: No VTE Risk Level:: Medical - moderate - high VTE Device Contraindication: N/A - Device Ordered VTE Drug Contraindication: Treatment Not Indicated
[2023-04-29 15:32] VITALS: BP 127/58; PULSE 67; RESP 17; TEMP 36.6; O2SAT 96
[2023-04-29 16:21] LABS: Glucose, Whole Blood 134 mg/dL (60-115)
[2023-04-29] MEDS: Atorvastatin Calcium 10 MG TABLET PO (16:58)
[2023-04-29 19:45] VITALS: BP 146/58; PULSE 84; RESP 18; TEMP 36.4; O2SAT 97
[2023-04-29 20:32] LABS: Glucose, Whole Blood 142 mg/dL (60-115)
[2023-04-30 04:00] VITALS: BP 154/58; PULSE 74; RESP 16; TEMP 37; O2SAT 97
[2023-04-30] MEDS: Levothyroxine Sodium 112 MCG TABLET PO (05:57)
[2023-04-30] MEDS: metroNIDAZOLE 500 MG TABLET PO (05:57)
[2023-04-30 06:28] LABS: Creatinine Clr Calc Pharmacy 52.7; Estimated Glomerular Filt Rate 52
[2023-04-30 08:00] VITALS: BP 169/74; PULSE 66; RESP 18; TEMP 36.6; O2SAT 98
[2023-04-30 08:24] LABS: Glucose, Whole Blood 99 mg/dL (60-115)
[2023-04-30] MEDS: 0.9 % Sodium Chloride Flush 3 ML SYRINGE IVFLUSH (08:40)
[2023-04-30] MEDS: cefuroxime axetiL 500 MG TABLET PO (08:43)
[2023-04-30] MEDS: Cholecalciferol (Vitamin D3) 25 MCG TABLET 50 MCG PO (08:43)
[2023-04-30] MEDS: Acetaminophen 325 MG TABLET 650 MG PO (08:43)
[2023-04-30] MEDS: Furosemide 40 MG TABLET PO (08:43)
[2023-04-30] MEDS: lisinopriL 10 MG TABLET PO (08:44)
--- NOTE | 2023-04-30 10:11 | MHC.CM.PN ---
Addendum entered by Kaycee Isabel 04/30/23 10:35: Wound management at the wound clinic will resume. Patient will continue to perform wound care as he did prior to hospitalization. Original Note: IMM 04/29/23 Patient is discharged to home self care. She has arranged for a family member to provide transport home.
--- NOTE | 2023-04-30 10:19 | P.DS_ITS ---
DS: Providers Provider Date of Service: 04/30/23 Date of admission: 04/25/23 00:39 Date of discharge: 04/30/23 Primary care physician: Preston Wang DO Consults: 04/25/23 00:44 Consult to Urology Routine Consulting Provider: Jose Reis Reason for consultation: collection right kidney, right kideny stones 04/25/23 21:43 Consult to Wound Care Routine Reason for consultation: old non healing wound/suprapubic site 04/27/23 09:16 Consult to Infectious Diseases Routine Consulting Provider: [facility] Infectious Disease Reason for consultation: Sepsis,[place] ,question renal abcess Has provider been notified: No 04/28/23 08:11 Consult to Gastroenterology Stat Consulting Provider: Flex Watkins Reason for consultation: For colonoscopy Attending physician on discharge: Clint Webb Discharging clinician: Clint Webb DS: Diagnosis Discharge Diagnosis (1) Mural thickening of sigmoid colon: Status: Acute DS: Summary Hospital Course Hospital Course: 78-year-old female with pertinent history of history of retroperitoneal abscess, hypothyroidism, kbh-dcwbqwx-nptomnunm diabetes mellitus, mood disorder who pr esents to the emergency department for evaluation of fevers. Patient states she started having fevers and chills 1 day prior to presentation. States she has generalized malaise and fatigability. Patient has a chronic open wound of the back and the takes care of it. The does state that he has noticed intermittent purulent drainage from the open wound that is foul- smelling. No cough, abdominal pain, dysuria. Patient states she supposed to have a procedure with Dr. Reis for her kidney stones, history of renal abscess on 04/25. No chest discomfort, palpitations, shortness of breath, changes in urinary or bowel habits. In the emergency department, patient was found to be septic. Imaging with 2.1 cm collection adjacent to the lower pole of the right kidney. Also right kidney calculus noted Hospital course: Patient was admitted for sepsis sec to purulent cellulitis of back wound /possible small retroperitoneal abcess : started on iv antibiotics broad spectrum ,blood culture and urine cultures sent ,consulted urology for small retroperitoneal collection/abcess possible fistula formation. Patient improved with above supportive care with antibiotics ,sepsis resolved, urine culture grew strep viridans group, blood cultures negative.no fevers , back wound clean and no drainage currently. urology placed right uretral stent ,also urogram was done and showed -Fistulous tract between the skin and the right retroperitoneal abscess cavity.There is no direct fistula to the right kidney, collecting system, or ureter. The contrast then tracks down to the right along the iliopsoas bursa. above is discussed with urology and infectious disease -sepsis resolve d, no drainge ,no fever and recomended to switch antibiotics to po ceftin 500 mg po bid as well as flagyl 500 mg po tid for 9 more days . Patient will follow up with urology Dr Reis's office outpatient . further management as per pcp and urology outpatient . In addition patient had colonoscopy- for abnormal imaging of colon with sigmoid thickening:s/p colonoscopy:has diverticulosis ,internal haemorroids,colon biopsy done patient will need to follow up outpatient with pcp and Gi. plan: complete antibiotics to po ceftin 500 mg po bid as well as flagyl 500 mg po tid for 9 more days . follow up with urology and GI outpatient. patient also seen by wound care-please see above wound care instructions(discharge instruction section). Assessment and plan coordination time spent 45 minute Time Attestation Total time managing care of this patient today: 45 mintues. Discharge Coordination Time (in mins): 45min Quality: Safe Use of Opioids Does Pt have an Active Cancer Diagnosis on the Problem List?: No Quality: Stroke Does the patient have a stroke diagnosis?: No Physical Exam Vital Signs: Vital Signs: Last Vital Signs Temp 98 F 04/30/23 08:00 Pulse 66 04/30/23 08:00 Resp 18 04/30/23 08:00 BP 169/74 H 04/30/23 08:00 Pulse Ox 98 04/30/23 08:00 O2 Del Method Room Air 04/30/23 08:00 O2 Flow Rate 2 04/28/23 12:35 BMI result Body Mass Index 37.0 Appearance: Alert.? Oriented X3.? cvs: rrr, [id number] . res: clear to auscultation ,no rhonchii or wheezing abd: no rebound or guarding ,nt, bs present. back wound -clean ,no drainge ext pulses present , no cyanosis . skin-right low back wound -no discharge neuro: axo3 , nonfocal. DS: Data Data Completed and Pending Completed studies during hospitalization [Text1]: Pending at discharge 04/28/23 12:05 Surgical [PTH] Routine Procedures Dilation of Right Ureter with Intraluminal Device, Via Natural or Artificial Opening Endoscopic (04/05/21) Drainage of Retroperitoneum with Drainage Device, Percutaneous Approach (12/08/21) Extirpation of Matter from Right Ureter, Via Natural or Artificial Opening Endoscopic (04/05/21) Fluoroscopy of Right Kidney, Ureter and Bladder (04/05/21) Labs on day of discharge: Laboratory Results - last 24 hr 04/29/23 04/29/23 04/29/23 11:27 16:10 20:20 Hold Purple Top Creatinine Estim Creat Clear Calc Estimated GFR POC Glucose 123 H 134 H 142 H 04/30/23 04/30/23 05:12 08:15 Hold Purple Top SEE NOTE Creatinine 1.03 Estim Creat Clear Calc 52.7 Estimated GFR 52 POC Glucose 99 Imaging Chest x-ray: Radiologist's impression: ITS Impressions Chest X-Ray 04/24/23 15:47 IMPRESSION: * Clear lungs. Abdomen/Pelvis CT 04/24/23 21:34 IMPRESSION: There is an abnormality in the sigmoid colon with irregular wall thickening and surrounding stranding. Indistinct tissue planes between the vaginal fornix, bladder and colon. Recommend endoscopic assessment. Malignancy is not excluded. There is an unchanged collection adjacent to the lower right kidney. Moderate to marked stone burden greater on the right kidney than left. There is a tract from the kidney through the right flank soft tissues to the skin. There is some abnormal attenuation in the right psoas. No large undrained collection. Micronodular liver contour suggests underlying chronic liver disease. Fleischner guidelines were followed. Chest CT 04/24/23 21:34 IMPRESSION: No focal pneumonia or edema. Scattered micronodules. In a low risk patient this does not require specific imaging follow-up Fleischner guidelines were followed. Guidance Fluoroscopy 04/25/23 20:30 IMPRESSION: Successful placement of right ureteral stent Sinogram 04/27/23 14:23 IMPRESSION: 1. Fistulous tract between the skin and the right retroperitoneal abscess cavity. There is no direct fistula to the right kidney, collecting system, or ureter. The contrast then tracks down to the right along the iliopsoas bursa. 2. Right ureteral stent present. This procedure was performed by Gilbert Heath PA-C, and supervised by Dr. Otto Discharge Plan Discharge Anticipated Discharge Date/Time: 04/29/23 13:51 Patient Disposition: Home, Self-Care Discharge Diagnosis: Sepsis secondary to possible small retroperitoneal abscess(which possibly after her old urology procedure ) Referrals: Jose Reis MD [Physician] - 1 Week Preston Wang DO [Primary Care Provider] - 1 Week Flex Watkins MD [Physician] - 1 Week Discharge Medications: New metronidazole 500 mg Tablet 500 mg PO Q8H Qty: 27 0RF cefuroxime axetil 500 mg Tablet 500 mg PO BID Qty: 18 0RF Continued atorvastatin 10 mg tablet 1 tab PO DAILY@1700 metformin 500 mg tablet extended release 24 hr 1 tab PO DAILY@1700 furosemide 40 mg tablet 40 mg PO DAILY Qty: 30 0RF pyridoxine (vitamin B6) 100 mg tablet 100 mg PO DAILY levothyroxine 112 mcg tablet 112 mcg PO DAILY lisinopril 10 mg tablet 10 mg PO DAILY cholecalciferol (vitamin D3) [Vitamin D3] 50 mcg (2,000 unit) tablet 50 mcg PO DAILY Discharge Orders: Discharge Order (Routine); Ordered 04/30/23 Ordered By: Clint Webb Diet: Advance to usual diet Activity on Discharge: As tolerated Stand Alone Forms: Patient Portal Discharge page Activity Restrictions/Additional Instructions: Topical Wound Care Recommendations: Right Flank - Cleanse with NS, Lightly packed with 1/4 packing strip be sure to leave wick for easily removal, covered with foam dressing or ABD Pad for drainage absorption. Recommend to be changed daily. Recommend continue outpatient wound care follow up. Care Plan Goals: Patient was admitted for sepsis sec to purulent cellulitis of back wound /possible small retroperitoneal abcess : started on iv antibiotics broad spectrum ,blood culture and urine cultures sent ,consulted urology for small retroperitoneal collection/abcess possible fistula formation. Patient improved with above supportive care with antibiotics ,sepsis resolved, urine culture grew strep viridans group, blood cultures negative.no fevers , back wound clean and no drainage currently. urology placed right uretral stent ,also urogram was done and showed -Fistulous tract between the skin and the right retroperitoneal abscess cavity.There is no direct fistula to the right kidney, collecting system, or ureter. The contrast then tracks down to the right along the iliopsoas bursa. above is discussed with urology and infectious disease -sepsis resolve d, no drainge ,no fever and recomended to switch antibiotics to po ceftin 500 mg po bid as well as flagyl 500 mg po tid for 9 more days . Patient will follow up with urology Dr Reis's office outpatient . further management as per pcp and urology outpatient . In addition patient had colonoscopy- for abnormal imaging of colon with sigmoid thickening:s/p colonoscopy:has diverticulosis ,internal haemorroids,colon biopsy done patient will need to follow up outpatient with pcp and Gi. patient also seen by wound care-please see above wound care instructions. Health Concerns: as above. Plan of Treatment: complete antibiotics to po ceftin 500 mg po bid as well as flagyl 500 mg po tid for 9 more days . Assessment: as above.
--- NOTE | 2023-04-30 10:48 | PC.NURSE ---
Right flank wound dressing changed packed with 1/4 inch nugauze and covered with foam dressing
== END 2023-04-30 11:52 | disposition home or self-care (01) | DRG 853 ==
LOC: HO.ED 18:25 → HO.EDOVER 04-25 02:04 → HO.S3 04-25 20:51
PROVIDERS: Internal Medicine Gastroenterology; Physician Assistant; Registered Nurse Emergency; Urology; Admitting Provider Student in an Organized Health Care Education/Training Program; Emergency Provider Internal Medicine; PCP Internal Medicine; Visit Provider Internal Medicine
PROC: 0T768DZ Dilation of Right Ureter with Intraluminal Device, Via Natural or Artificial Opening Endoscopic (ICD-10-PCS; principal; 2023-04-25 15:40)
PROC: 0DJD8ZZ Inspection of Lower Intestinal Tract, Via Natural or Artificial Opening Endoscopic (ICD-10-PCS; CPT 45378; principal; 2023-04-28 11:50)
DX: A41.9 Sepsis, unspecified organism (principal); N15.1 Renal and perinephric abscess; L03.312 Cellulitis of back [any part except buttock and flank]; N13.30 Unspecified hydronephrosis; K76.6 Portal hypertension; E11.40 Type 2 diabetes mellitus with diabetic neuropathy, unspecified; E66.01 Morbid (severe) obesity due to excess calories; G47.33 Obstructive sleep apnea (adult) (pediatric); N28.89 Other specified disorders of kidney and ureter; K57.30 Diverticulosis of large intestine without perforation or abscess without bleeding; K74.69 Other cirrhosis of liver; B95.4 Other streptococcus as the cause of diseases classified elsewhere; K64.0 First degree hemorrhoids; K75.81 Nonalcoholic steatohepatitis (NASH); N20.0 Calculus of kidney; E03.9 Hypothyroidism, unspecified; I10 Essential (primary) hypertension; Z68.37 Body mass index [BMI] 37.0-37.9, adult; Z71.3 Dietary counseling and surveillance; Z87.891 Personal history of nicotine dependence; Z20.822 Contact with and (suspected) exposure to COVID-19; Z79.84 Long term (current) use of oral hypoglycemic drugs; Z79.890 Hormone replacement therapy; Z79.899 Other long term (current) drug therapy
CPT/HCPCS: 0241U; 36415; 71046; 71260; 74177; 76080; 80048; 80053; 80202; 81001; 82565; 82947; 83605; 85025; 87040; 87086; 88305; 93005; 99285; C1758; C1769; C2617; J0131; J1200; J2250; J2543; J2704; J3010; J3370; J3371; J7120; Q9967

== ENCOUNTER → 2023-04-24 15:05 | Outpatient (BNV) | payer MEDICARE, SELFPAY | PROVIDERS: Admitting Provider Student in an Organized Health Care Education/Training Program; Emergency Provider Internal Medicine; PCP Internal Medicine; Visit Provider Internal Medicine | DX: R07.9 Chest pain, unspecified (principal) | CPT/HCPCS: 93010 ==

== ENCOUNTER → 2023-04-24 17:59 | Outpatient (BNV) | payer MEDICARE, SELFPAY | PROVIDERS: Emergency Provider Internal Medicine; PCP Internal Medicine; Visit Provider Student in an Organized Health Care Education/Training Program | DX: K57.30 Diverticulosis of large intestine without perforation or abscess without bleeding (principal) | CPT/HCPCS: 99222; 99231; 99239; 99499 ==

== ENCOUNTER 2023-04-25 00:39 | Outpatient (BNV) | payer MEDICARE, SELFPAY | END 2023-04-27 13:30 | PROVIDERS: Admitting Provider Student in an Organized Health Care Education/Training Program; Emergency Provider Internal Medicine; PCP Internal Medicine; Visit Provider Physician Assistant Surgical | DX: A41.9 Sepsis, unspecified organism (principal); S21.209A Unspecified open wound of unspecified back wall of thorax without penetration into thoracic cavity, initial encounter; L03.90 Cellulitis, unspecified | CPT/HCPCS: 20501; 76080 ==

== ENCOUNTER → 2023-04-25 00:39 | Outpatient (BNV) | payer MEDICARE, SELFPAY | PROVIDERS: Admitting Provider Student in an Organized Health Care Education/Training Program; Emergency Provider Internal Medicine; PCP Internal Medicine; Visit Provider Internal Medicine Gastroenterology | DX: K63.9 Disease of intestine, unspecified (principal); R93.3 Abnormal findings on diagnostic imaging of other parts of digestive tract; K57.30 Diverticulosis of large intestine without perforation or abscess without bleeding; K64.0 First degree hemorrhoids | CPT/HCPCS: 45380; 99222 ==

== ENCOUNTER → 2023-04-25 00:39 | Outpatient (BNV) | payer MEDICARE, SELFPAY | PROVIDERS: Admitting Provider Student in an Organized Health Care Education/Training Program; Emergency Provider Internal Medicine; PCP Internal Medicine; Visit Provider Urology | DX: N13.30 Unspecified hydronephrosis (principal); S21.209A Unspecified open wound of unspecified back wall of thorax without penetration into thoracic cavity, initial encounter | CPT/HCPCS: 52332; 74420; 99231 ==

== ENCOUNTER 2023-06-07 14:23 | Outpatient (AMB) | payer MEDICARE, SELFPAY ==
--- NOTE | 2023-06-07 14:40 | MHC.OFFVIS ---
Intake Visit Reasons: 6 week s/p stent placement/sepsis Intake Note: Patient is Present for Follow Up Urology Medication: Vitamin b6 Antibiotic Allergies: Blood Thinners: Allergies chlorpheniramine [From TUSSIONEX] Allergy (Severe, Verified 07/22/23 00:46) HALLUCINATIONS escitalopram [ESCITALOPRAM] Allergy (Severe, Verified 07/22/23 00:46) DISSOCIATIVE REACTION fluoxetine [FLUOXETINE] Allergy (Severe, Verified 07/22/23 00:46) DISSOCIATIVE REACTION hydrocodone [From TUSSIONEX] Allergy (Severe, Verified 07/22/23 00:46) HALLUCINATIONS ibuprofen [IBUPROFEN] Allergy (Severe, Verified 07/22/23 00:46) THROAT SWELLING Sulfa (Sulfonamide Antibiotics) [SULFA (SULFONAMIDE ANTIBIOTICS)] Allergy (Severe, Verified 07/22/23 00:46) DYSPNEA clarithromycin [From BIAXIN] Allergy (Intermediate, Verified 07/22/23 00:46) ABD.PAIN duloxetine [DULOXETINE] Allergy (Intermediate, Verified 07/22/23 00:46) FACIAL NUMBNESS erythromycin base [ERYTHROMYCIN BASE] Allergy (Intermediate, Verified 07/22/23 00:46) RASH Penicillins [PENICILLINS] Allergy (Intermediate, Verified 07/22/23 00:46) RASH tetracycline [TETRACYCLINE] Allergy (Intermediate, Verified 07/22/23 00:46) DIARRHEA ciprofloxacin [From CIPRO] Allergy (Unknown, Verified 07/22/23 00:46) ANAPHYLAXIS codeine [CODEINE] Allergy (Unknown, Verified 07/22/23 00:46) TINNITIS guaifenesin Allergy (Unknown, Verified 07/22/23 00:46) Unknown levofloxacin [From Levaquin] Allergy (Unknown, Verified 07/22/23 00:46) Unknown pregabalin Allergy (Unknown, Verified 07/22/23 00:46) Unknown HPI Comments Details: Xi is a pleasant female. She is a patient of Dr. Wang. She is seen for the following urologic conditions - nephrolithiasis - recurrent UTI Stent placed Wound care Significantly improved wound management Nephrolithiasis Multiple prior in admission for infection and staghorn - treatment had concurrent abscess 6 months after initial ureteroscopy Intervention - 03/31 right-sided ureteroscopy laser lithotripsy and stent placement - 06/28 completion right ureteroscopy with left ureteroscopy Stone composition - 03/31 Carbonate Apatite (Dahllite) 100% - 06/28 calcium oxalate Imaging - 03/31 CT scan 4 cm right staghorn calculus, 6 mm left Therapeutic plan - suppression antibiotics for recurrent UTI PFSH Medical History Hydroureteronephrosis Wound infection Open wound of back, complicated Cellulitis Frequency of urination Vaginal burning Vaginal itching PMB (postmenopausal bleeding) Cirrhosis of liver Does mobilize using walker PONV (postoperative nausea and vomiting) Left foot drop Fatty liver Fibromyalgia Neuropathy RBBB Cholelithiasis Staghorn calculus Renal calculus, bilateral Renal calyceal dilation determined by ultrasound UTI (urinary tract infection) Diabetes mellitus, type II Ganglion cyst Plantar fasciitis Anxiety OA (osteoarthritis) Obstructive airway disease Hypercholesterolemia Low back pain Sciatica Hypothyroidism HTN (hypertension) Primary osteoarthritis of right knee Retained ureteral stent Renal stones Staghorn calculus Perirectal abscess Surgical History Status post cystoscopy with ureteral stent placement History of lumbar discectomy History of lumpectomy of both breasts History of cystoscopy History of lithotripsy Hx of colonoscopy History of surgery Family History Father Alcohol dependence Mother CHF (congestive heart failure) Cancer of breast Mother No problems noted. Other Alcoholic cirrhosis Social History Household Members: None Housing: House Do you presently have visiting nurse or other home services: No Alcohol intake: never Comment: given pyridium Patient Tobacco Use Status: Former Tobacco user Tobacco use type: Cigarette Years Smoked: 27 Smoked in Last 30 Days: No Second Hand Smoke Exposure: No Use of substances other than those prescribed or required for medical reasons: No Advance Directives: Yes Advance Directives on File: Yes Advance Directives Date on File: 04/06/21 service: No Current occupational status: disabled Review of Systems Const Denies chills and Denies fever(s) Card Reports no additional complaints and Denies syncope Resp Denies cough GI Denies abdominal pain and Denies heartburn Reports as per HPI and Denies change in libido Neuro Denies syncope Psych Denies change in libido Endo Denies change in libido Physical Exam Const General: cooperative, healthy appearing, comfortable and no acute distress Orientation/consciousness: patient oriented x3 HEENT Face and sinus: Yes normal facial exam Mouth: moist mucous membranes Neck Neck: Yes normal visual inspection, Yes full ROM and Yes trachea midline Chest Chest palpation & inspection: normal inspection of the chest Resp Effort & Inspection: normal respiratory effort, able to speak in complete sentences and no respiratory distress GI Inspection: Yes normal to inspection Back/Spine/Pelvis Cervical Spine: normal cervical lordosis Thoracic/Lumbar Spine: thoracic and lumbar spine normal to inspection Skin General skin exam: no rashes or lesions noted Neuro General: patient oriented x3, gait normal, tone normal and moves all extremities Extrem General: Yes normal to inspection and Yes capillary refill normal Assessment & Plan Assessment & Plan (1) Renal abscess: Code(s): N15.1 - Renal and perinephric abscess Category: Medical Plan Two month follow-up Patient Instructions: Imaging studies, laboratory and physical exam results were discussed and reviewed in detail. No major barriers to patient understanding were identified. An opportunity to ask questions regarding the treatment plan was provided. All questions were answered. The patient expressed understanding and agreement with the above treatment plan. The patient is aware they should contact our office by phone for worsening of their current condition or the appearance of new urologic symptoms. Compliance is encouraged with any medications and followup testing that is ordered. It is a privilege to participate in the urologic care of your patient. If you have any questions or concerns regarding treatment for the above conditions, or other urologic issues, please do not hesitate to contact me. The office telephone contact is [phone]. This note is constructed using voice recognition software. While every effort has been made to ensure accuracy divemaster errors may have been included. Yours sincerely, Dr Jose Reis MD, [facility] - Urology Providers of Expert, Compassionate Care for the Genitourinary System Coding Level of Care Code Est Pt Level 3 (48616) Diagnoses Renal abscess N15.1
== END 2023-06-07 15:08 | disposition home or self-care (01) ==
PROVIDERS: PCP Internal Medicine; Visit Provider Urology
DX: N15.1 Renal and perinephric abscess (principal)
CPT/HCPCS: 99213

== ENCOUNTER → 2023-06-07 14:23 | Outpatient (BNVA) | payer MEDICARE, SELFPAY | PROVIDERS: PCP Internal Medicine; Visit Provider Urology | DX: N15.1 Renal and perinephric abscess (principal) | CPT/HCPCS: 99212 ==

== ENCOUNTER 2023-06-25 11:39 | Outpatient (AMB) | payer MEDICARE, SELFPAY ==
--- NOTE | 2023-06-25 13:40 | MHC.OFFWIV ---
Intake Vital Signs 06/25/23 13:43 Height 5 ft 4 in Weight 204 lb BMI 35.0 BP 116/60 Blood Pressure Location Lt brachial Position Sitting Pulse 81 Pulse Source Pulse Oximeter Temp 97.5 F Temp Source Oral Pulse Oximetry (%) 96 Oxygen Delivery Method Room Air Intake Visit Reasons: EP described as Fire between legs vaginitis??? Intake Note: Pt is here today c/o vaginal d/c and itchyness Patient Tobacco Use Status: Former Tobacco user Quit Date: 1986 Allergies chlorpheniramine [From TUSSIONEX] Allergy (Severe, Verified 06/25/23 13:47) HALLUCINATIONS escitalopram [ESCITALOPRAM] Allergy (Severe, Verified 06/25/23 13:47) DISSOCIATIVE REACTION fluoxetine [FLUOXETINE] Allergy (Severe, Verified 06/25/23 13:47) DISSOCIATIVE REACTION hydrocodone [From TUSSIONEX] Allergy (Severe, Verified 06/25/23 13:47) HALLUCINATIONS ibuprofen [IBUPROFEN] Allergy (Severe, Verified 06/25/23 13:47) THROAT SWELLING Sulfa (Sulfonamide Antibiotics) [SULFA (SULFONAMIDE ANTIBIOTICS)] Allergy (Severe, Verified 06/25/23 13:47) DYSPNEA clarithromycin [From BIAXIN] Allergy (Intermediate, Verified 06/25/23 13:47) ABD.PAIN duloxetine [DULOXETINE] Allergy (Intermediate, Verified 06/25/23 13:47) FACIAL NUMBNESS erythromycin base [ERYTHROMYCIN BASE] Allergy (Intermediate, Verified 06/25/23 13:47) RASH Penicillins [PENICILLINS] Allergy (Intermediate, Verified 06/25/23 13:47) RASH tetracycline [TETRACYCLINE] Allergy (Intermediate, Verified 06/25/23 13:47) DIARRHEA ciprofloxacin [From CIPRO] Allergy (Unknown, Verified 06/25/23 13:47) ANAPHYLAXIS codeine [CODEINE] Allergy (Unknown, Verified 06/25/23 13:47) TINNITIS guaifenesin Allergy (Unknown, Verified 06/25/23 13:47) Unknown levofloxacin [From Levaquin] Allergy (Unknown, Verified 06/25/23 13:47) Unknown pregabalin Allergy (Unknown, Verified 06/25/23 13:47) Unknown Medication List - Last Reconciled 06/25/23 by JOSE ROBERTO Cho atorvastatin 1 tab PO DAILY@1700 cholecalciferol (vitamin D3) (Vitamin D3) 50 mcg PO DAILY furosemide 40 mg PO DAILY levothyroxine 112 mcg PO DAILY lisinopril 10 mg PO DAILY metformin ER 1 tab PO DAILY@1700 miconazole nitrate 200 mg vaginal BEDTIME 3 days pyridoxine (vitamin B6) 100 mg (2 x 50 mg) PO DAILY 90 days HPI EP described as Fire between legs vaginitis??? HPI Details Patient is a 78-year-old female who comes to the walk-in clinic complaining of vaginal burning and itching for about a week. She also has associated generalized fatigue, nausea, suprapubic pressure, dysuria and urinary frequency. 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 She was evaluated by Urology and Infectious Disease, and sepsis resolved. She had completed Ceftin and Flagyl courses, and had a follow-up with urologist 3 weeks ago an apparent negative urine at that time, however I cannot see results in her chart. She reports that since then she has developed vaginal itching and burning over the past week, associated with the dysuria and urinary frequency which is not her norm. Per urologist note, the treatment plan had been to continue suppression antibiotics for recurrent UTIs, with cefuroxime 500 mg twice a day, although patient reports completing her courses. She also reports that she does have a history of having candidal vaginitis in the past with antibiotic therapy, and had completed a course of Diflucan during her hospital stay, prior to symptoms starting. She denies vomiting or diarrhea, weakness or dizziness, flank or low back pain, dizziness or weakness, anorexia, chest pain or shortness of breath. [facility] Medical History Hydroureteronephrosis Wound infection Open wound of back, complicated Cellulitis Frequency of urination Vaginal burning Vaginal itching PMB (postmenopausal bleeding) Cirrhosis of liver Does mobilize using walker PONV (postoperative nausea and vomiting) Left foot drop Fatty liver Fibromyalgia Neuropathy RBBB Cholelithiasis Staghorn calculus Renal calculus, bilateral Renal calyceal dilation determined by ultrasound UTI (urinary tract infection) Diabetes mellitus, type II Ganglion cyst Plantar fasciitis Anxiety OA (osteoarthritis) Obstructive airway disease Hypercholesterolemia Low back pain Sciatica Hypothyroidism HTN (hypertension) Primary osteoarthritis of right knee Retained ureteral stent Renal stones Staghorn calculus Perirectal abscess Surgical History Status post cystoscopy with ureteral stent placement History of lumbar discectomy History of lumpectomy of both breasts History of cystoscopy History of lithotripsy Hx of colonoscopy History of surgery Family History Father Alcohol dependence Mother CHF (congestive heart failure) Cancer of breast Mother No problems noted. Other Alcoholic cirrhosis Social History Household Members: None Housing: House Do you presently have visiting nurse or other home services: No Alcohol intake: never Comment: given pyridium Patient Tobacco Use Status: Former Tobacco user Quit Date: 1986 Tobacco use type: Cigarette Years Smoked: 27 Second Hand Smoke Exposure: No Advance Directives Date on File: 04/06/21 service: No Current occupational status: disabled Review of Systems Const All systems reviewed & are unremarkable except as noted in HPI and below Physical Exam Vital Signs: Last Vital Signs Temp 97.5 F 06/25/23 13:43 Pulse 81 06/25/23 13:43 BP 116/60 06/25/23 13:43 Pulse Ox 96 06/25/23 13:43 Oxygen Delivery Method Room Air 06/25/23 13:43 BMI result Body Mass Index 35.0 Const General: cooperative, healthy appearing, comfortable, no acute distress, alert, awake, Physically active and well groomed; No anxious, diaphoretic, ill appearing, intoxicated appearing, poor hygiene or tired appearing Orientation/consciousness: oriented to person Resp Effort & Inspection: normal respiratory effort, able to speak in complete sentences, no audible wheezes, no cough, no grunting, not labored, no nasal flaring, no retractions and symmetric chest movement Auscultation: clear to auscultation bilaterally, no crackles, no rales, no rhonchi, no wheezes, lung sounds not diminished and No rub present Cardio Palpation: normal PMI Rate: regular rate Rhythm: regular rhythm Heart sounds: S1 normal heart sound present and S2 normal heart sound present GI Palpation (GI): Soft to palpation, not firm, Tenderness to palpation present (GI) suprapubicly, no guarding and not rigid General: Yes no CVA tenderness External Female Exam: No normal external appearance, erythema, externally tender and external swelling Back/Spine/Pelvis Back: no CVA tenderness Skin Other: Patient has bandaging over right lateral chest wall. Her skin is good color, warm and dry otherwise. Neuro General: oriented to person Psych Appearance: grossly normal Mental Status: mental status grossly normal Speech and movement: Normal speech and movement present Affect: normal affect Attitude: cooperative Thought process: Normal thought process present Insight: Good insight present (Psych) Judgement: Good judgement present (Psych) Results AMB Urinalysis, Automated UA Leukoctes 500 Marcos/uL Last Edit by Radha Garcia CMA on 06/25/23 14:16 UA Nitrite Negative Last Edit by Radha Garcia CMA on 06/25/23 14:16 UA Urobilinogen 0.2 mg/dL Last Edit by Radha Garcia CMA on 06/25/23 14:16 UA Protein 0 mg/dL Last Edit by Radha Garcia CMA on 06/25/23 14:16 UA pH 6.0 Last Edit by Radha Garcia CMA on 06/25/23 14:16 UA Blood 80 Juvenal/uL Last Edit by Radha Garcia CMA on 06/25/23 14:16 UA Specific [place] 1.015 Last Edit by Radha Garcia CMA on 06/25/23 14:16 UA Ketone Negative Last Edit by Radha Garcia CMA on 06/25/23 14:16 UA Bilirubin 0 mg/dL Last Edit by Radha Garcia CMA on 06/25/23 14:16 UA Glucose 0 mg/dL Last Edit by Radha Garcia CMA on 06/25/23 14:16 Results Reviewed Results Reviewed: Laboratory Last Values Urine pH (Auto) 6.0 06/25/23 14:14 Specific [place] (Auto) 1.015 06/25/23 14:14 Urine Protein (Auto) 0 mg/dL 06/25/23 14:14 Glucose (UA)(Auto) 0 mg/dL 06/25/23 14:14 Urine Ketones (Auto) Negative 06/25/23 14:14 Urine Blood (Auto) 80 [place]ven[place]/uL 06/25/23 14:14 Urine Nitrite (Auto) Negative 06/25/23 14:14 Urine Bilirubin (Auto) 0 mg/dL 06/25/23 14:14 Urine Urobilinogen (Auto) 0.2 mg/dL 06/25/23 14:14 Leukocyte Esterase (Auto) 500 Marcos/uL 06/25/23 14:14 Patient has pyuria and hematuria Assessment & Plan Assessment & Plan (1) Dysuria: Code(s): R30.0 - Dysuria Plan Patient is a 78-year-old female with apparent candidal vaginitis after recent antimicrobial therapy for sepsis due to her chronic right thoracic wound from a nephrolithiasis stent placement, and 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 During her sepsis treatment due to this, she completed a course of fluconazole to prevent Candidal vaginitis, however symptoms did not start until afterwards. She describes a burning fire sensation to the vagina, which would correlate with her erythematous and tender introitus area, but has no discharge noticeable on the labia during exam, and no bleeding. We did a swab today for complete vaginitis panel, pending results. However due to her high likelihood having Tiki vaginitis, I did write her for a course of topical miconazole, per her request. She reports that she does have some urinary frequency and dysuria associated with this, along with suprapubic pressure and generalized nausea. She also had pyuria and hematuria on her urine dip today. I told her that it is possible that she has a recurrent UTI, and as she has no longer on suppressive antibiotic therapy for this, she should be considered to restart antibiotics. However she is hesitant to take further antibiotics for due to her yeast infection. I did end up writing her for a continuing course of cefuroxime, as this is what she had been taking outpatient. We are sending her urine for microscopy testing, pending results. Upon review of last microbial testing however, she grew strep viridans. Adequate water intake was advised to continue. She knows to go to the emergency department if she develops any worrisome symptoms tomorrow, and plans to follow-up with urologist on Tuesday. They will have access to this walk-in visit. Orders: Orders UA CC w/rflx Micro + Cult Today R30.0 - Dysuria AMB Urinalysis Automated Today Z13.9 - Encounter for screening, unspecified Bacterial Vaginosis Panel Today R30.0 - Dysuria Medications: New cefuroxime axetil 500 mg PO BID 14 tabs 0RF 7 days miconazole nitrate 200 mg vaginal BEDTIME 3 ea 0RF 3 days Coding Level of Care Code Est Pt Level 4 (72810) Diagnoses Dysuria R30.0
[2023-06-25 13:43] VITALS: BP 116/60; PULSE 81; TEMP 36.4; O2SAT 96; BMI 35.0
== END 2023-06-25 14:45 | disposition home or self-care (01) ==
PROVIDERS: PCP Internal Medicine; Visit Provider Physician Assistant Medical
DX: R30.0 Dysuria (principal)
CPT/HCPCS: 81003; 99214

== ENCOUNTER 2023-06-25 14:48 | Outpatient (REF) | payer MEDICARE, SELFPAY ==
[2023-06-25 15:51] LABS: Appearance Urine Clear; Color Urine Yellow; Glucose Urine UA Negative (Negative); Leukocyte Esterase Urine Large (3+) (Negative); Nitrite Urine Negative (Negative); PH 6.5 (5.0-9.0); Specific Gravity - Urine <= 1.005 (1.005-1.025); UMIC TRIGGER UACC YES; Urine Blood Small (1+) (Negative); Urine Ketones Negative (Negative); Urine Protein Negative (Neg-Trace)
[2023-06-25 15:57] LABS: Bacteria Urine None Seen (None Seen); Hyaline Casts Urine 0-2 /LPF (0-2); RBC Urine >20 /HPF (0-2); Squamous Epithelial Cell Urine 0-2 /HPF (0-2); UACC Culture Trigger YES; WBC Urine >50 /HPF (0-5)
[2023-06-26 08:24] LABS: Bacterial Vaginosis PCR NEGATIVE (Negative); Candida Group PCR NOT DETECTED (Not Detect); Candida glab krusei PCR NOT DETECTED (Not Detect); Trichomonas vaginalis PCR NOT DETECTED (Not Detect)
== END 2023-06-25 14:49 | disposition home or self-care (01) ==
LOC: HO.LAB 14:48
PROVIDERS: Visit Provider Physician Assistant Medical
DX: R30.0 Dysuria (principal)
CPT/HCPCS: 0352U; 81001; 87086

== ENCOUNTER 2023-07-02 14:21 | Emergency (ER) | payer MEDICARE, SELFPAY ==
[2023-07-02 14:53] VITALS: BP 114/56; PULSE 83; RESP 18; TEMP 37.3; O2SAT 97; BMI 35.5
--- NOTE | 2023-07-02 14:53 | ED_ITS ---
HPI - General Adult General Chief complaint: Urogenital-Female Stated complaint: burning sensation vaginal area Time Seen by Provider: 07/02/23 23:43 Source: patient, family (), RN notes reviewed and old records reviewed Mode of arrival: ambulatory Limitations: no limitations History of Present Illness ED Provider: TOBY DAI PA-C HPI narrative: 78 year old female presents to the ED today for evaluation of dysuria and increased urinary frequency that began 1 week ago. Patient reports recent completion 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 for abdominal wall cellulitis for which she follows with the wound clinic. Since starting these antibiotics, reports constant yeast infection for which she has been taking fluconazole. 1 week ago, she began to have burning with urination and now endorses increased urinary frequency. She does endorse history of vaginitis for which her PCP recommended vaseline however states this feels different. She does not currently follow with an OBGYN and would like a referral. Denies fever, chills, N/V, flank pain, abdominal pain, hematuria, vaginal discharge. Denies concern for STI. Related Data Home Medications ?Medication ?Instructions ?Recorded ?Confirmed levothyroxine 112 mcg tablet 112 mcg PO DAILY 08/28/20 06/25/23 atorvastatin 10 mg tablet 1 tab PO DAILY@1700 04/05/21 06/25/23 metformin 500 mg tablet,extended 1 tab PO DAILY@1700 04/06/21 06/25/23 release 24 hr cholecalciferol (vitamin D3) 50 50 mcg PO DAILY 07/19/22 06/25/23 mcg (2,000 unit) tablet (Vitamin D3) lisinopril 10 mg tablet 10 mg PO DAILY 07/19/22 06/25/23 Previous Rx's ?Medication ?Instructions ?Recorded furosemide 40 mg tablet 40 mg PO DAILY #30 tabs 12/16/21 pyridoxine (vitamin B6) 50 mg 100 mg (2 x 50 mg) PO DAILY 90 06/21/23 tablet days #180 tabs cefuroxime axetil 500 mg tablet 500 mg PO BID 7 days #14 tabs 06/25/23 miconazole nitrate 200 mg vaginal 200 mg vaginal BEDTIME 3 days #3 ea 06/25/23 suppository glycerin-mineral oil-polycarbophil See Rx Instructions vaginal 06/27/23 vaginal gel (Replens External .COMPLEX #8 applicators Comfort vaginal gel) cefdinir 300 mg capsule 300 mg PO BID 7 days #14 caps 07/03/23 terconazole 0.4 % vaginal cream 1 appful vaginal BEDTIME 7 days 07/03/23 #45 grams estradiol 0.01% (0.1 mg/gram) 0.5 appful vaginal DAILY 1 week 07/06/23 vaginal cream (Estrace) #42.5 grams Allergies Allergy/AdvReac Type Severity Reaction Status Date / Time chlorpheniramine Allergy Severe HALLUCINATI Verified 07/06/23 07:37 [From TUSSIONEX] ONS escitalopram [ESCITALOPRAM] Allergy Severe DISSOCIATIVE Verified 07/06/23 07:37 REACTION fluoxetine [FLUOXETINE] Allergy Severe DISSOCIATIVE Verified 07/06/23 07:37 REACTION hydrocodone [From TUSSIONEX] Allergy Severe HALLUCINATI Verified 07/06/23 07:37 ONS ibuprofen [IBUPROFEN] Allergy Severe THROAT Verified 07/06/23 07:37 SWELLING Sulfa (Sulfonamide Allergy Severe DYSPNEA Verified 07/06/23 07:37 Antibiotics) [SULFA (SULFONAMIDE ANTIBIOTICS)] clarithromycin [From BIAXIN] Allergy Intermediate ABD.PAIN Verified 07/06/23 07:37 duloxetine [DULOXETINE] Allergy Intermediate FACIAL Verified 07/06/23 07:37 NUMBNESS erythromycin base Allergy Intermediate RASH Verified 07/06/23 07:37 [ERYTHROMYCIN BASE] Penicillins [PENICILLINS] Allergy Intermediate RASH Verified 07/06/23 07:37 tetracycline [TETRACYCLINE] Allergy Intermediate DIARRHEA Verified 07/06/23 07:37 ciprofloxacin [From CIPRO] Allergy Unknown ANAPHYLAXIS Verified 07/06/23 07:37 codeine [CODEINE] Allergy Unknown TINNITIS Verified 07/06/23 07:37 guaifenesin Allergy Unknown Unknown Verified 07/06/23 07:37 levofloxacin [From Levaquin] Allergy Unknown Unknown Verified 07/06/23 07:37 pregabalin Allergy Unknown Unknown Verified 07/06/23 07:37 Review of Systems 2 Review of Systems: Constitutional: No fever, chills, fatigue, night sweats, weight changes ENT/Mouth: No ear pain, hearing loss, nasal congestion, sinus pain, rhinorrhea, sore throat Eyes: No eye pain, swelling, redness, vision changes, discharge Cardio: No chest pain, palpitations, PERLA, orthopnea, peripheral edema Pulm: No SOB, cough, sputum, wheezing, dyspnea, hemoptysis GI: No nausea, vomiting, hematemesis, abdominal pain, diarrhea, constipation, hematochezia, melena : No irregular bleeding, urgency, hesitancy, hematuria, flank pain, urinary flow changes, urinary incontinence or retention, +dysuria, +frequency MSK: No back pain, neck pain, joint pain, myalgias Skin: No lesions, rashes Neuro: No weakness, numbness, paresthesias, LOC, dizziness, headache Psych: No anxiety/panic, depression, SI/HI, AH/VH All other systems reviewed and are negative. [facility] Past Medical History Attestation statement: The following information was validated with the patient. Source: old records reviewed and nursing notes reviewed Medical History Hydroureteronephrosis Wound infection Open wound of back, complicated Cellulitis Frequency of urination Vaginal burning Vaginal itching PMB (postmenopausal bleeding) Cirrhosis of liver Does mobilize using walker PONV (postoperative nausea and vomiting) Left foot drop Fatty liver Fibromyalgia Neuropathy RBBB Cholelithiasis Staghorn calculus Renal calculus, bilateral Renal calyceal dilation determined by ultrasound UTI (urinary tract infection) Diabetes mellitus, type II Ganglion cyst Plantar fasciitis Anxiety OA (osteoarthritis) Obstructive airway disease Hypercholesterolemia Low back pain Sciatica Hypothyroidism HTN (hypertension) Primary osteoarthritis of right knee Retained ureteral stent Renal stones Staghorn calculus Perirectal abscess Surgical History Status post cystoscopy with ureteral stent placement History of lumbar discectomy History of lumpectomy of both breasts History of cystoscopy History of lithotripsy Hx of colonoscopy History of surgery Family History Family History Father Alcohol dependence Mother CHF (congestive heart failure) Cancer of breast Mother No problems noted. Other Alcoholic cirrhosis Social History Social History Household Members: None Housing: House Do you presently have visiting nurse or other home services: No Alcohol intake: never Comment: given pyridium Patient Tobacco Use Status: Former Tobacco user Tobacco use type: Cigarette Years Smoked: 27 Second Hand Smoke Exposure: No Advance Directives Date on File: 04/06/21 service: No Current occupational status: disabled Physical Exam ED Vital Signs: Vital Signs - 24 hr 07/02/23 14:53 07/02/23 22:16 07/03/23 01:24 Temperature 99.1 F 97.4 F 97.0 F Pulse Rate 83 87 76 Respiratory Rate 18 16 14 Blood Pressure 114/56 L 145/58 H 120/55 L Pulse Oximetry 97 94 97 Oxygen Delivery Method Room Air Room Air Room Air 07/03/23 01:26 Temperature 97.0 F Pulse Rate 76 Respiratory Rate 14 Blood Pressure 120/55 L Pulse Oximetry 97 Oxygen Delivery Method Room Air BMI result Body Mass Index 35.5 vital signs stable. Const General: cooperative, healthy appearing, comfortable and no acute distress Orientation/consciousness: patient oriented x3 Limitations: no limitations HENMT Head: Yes normal to inspection, Yes No palpable skull fracture present, Yes normocephalic and Yes atraumatic Eyes General: appearance normal, both eyes and all related structures Pupils: Equal, round and reactive pupils present Neck Neck: Yes normal visual inspection, Yes full ROM, Yes no lymphadenopathy and Yes no meningeal signs Resp Effort & Inspection: normal respiratory effort and able to speak in complete sentences Auscultation: clear to auscultation bilaterally Cardio Rate: regular rate Rhythm: regular rhythm GI Other: abdomen soft, ND/NT, no rebound or guarding, normoactive bs x4 Other: Sensitive exam performed, chaparone offered however patient declines. Atrophic external genitalia without lesions, swelling, masses or tenderness. no obvious discharge. complete pelvic exam not performed. General: Yes no CVA tenderness Back/Spine/Pelvis Back: no CVA tenderness Skin General skin exam: no rashes or lesions noted Neuro General: patient oriented x3, gait normal and no meningeal signs Cranial nerves: Yes Equal, round and reactive pupils present Course Course Course Narrative: This is an RME: Additional HPI, ROS, PE not included below will be deferred to primary provider. RME assessment and note performed by: Brianda James PA-C This is a [id number]-female, with a history of retroperitoneal abscess, hypothyroidism, [id number] diabetes mellitus, mood disorder who presents to the ER with complaints of dysuria, vaginal burning and pain x 1 week. Reporting she was prescribed fluconazole since 06/26 without any relief. Was previously admitted for retroperitoneal abscess and was prescribed antibiotics. She has had vaginitis ever since. Has had multiple trials of antifungals without relief. Plan: UA labs Reevaluation(s) Reevaluation #1: 0100-- CBC without leukocytosis or left shift. Chemistry without acute electrolyte abnormality requiring intervention. Urine showing large amount of blood, large leukocyte esterase, over 20 RBCs and over 50 WBC. There is no bacteria. Negative nitrites. Given patient reports dysuria and increased urinary frequency, will treat for urinary tract infection. I have reviewed previous urine cultures which have returned positive for strep viridans. Cefdinir will be sent to pharmacy for treatment. Her physical exam is consistent with vaginitis. She has been taking fluconazole without relief. I will send topical terazole to pharmacy for treatment. I have also provided her with a referral [place] [facility] as she does not currently have a bacteriologist food. I discussed all work up results with patient along with disposition. Patient has remained stable throughout ED visit today. Discussed worrisome signs and symptoms and when to return to the ED. All questions answered at this time. Patient is agreeable with disposition and stable for discharge. Medications Administered Discontinued Medications Generic Name Dose Route Start Last Admin Trade Name Freq PRN Reason Stop Dose Admin Acetaminophen 650 mg 07/02/23 22:18 07/02/23 22:37 Acetaminophen 325 Mg Tablet PO 07/02/23 22:19 650 mg ONCE ONE Administration Medical Decision Making Medical Decision Making [facility] Narrative: 78 year old female presents to the ED today for evaluation of dysuria and increased urinary frequency that began 1 week ago. Vital signs stable. She is nontoxic appearing and in NAD. On exam, abdomen soft, ND/NT, no rebound or guarding. normoactive bs x4. no cvat b/l. on sensitive exam, Atrophic external genitalia without lesions, swelling, masses or tenderness. complete pelvic exam not performed. Differential diagnosis includes UTI, vaginitis, yeast infection, cystitis. unlikely PID, pyelo. Labs and UA ordered prior to my assumption of care. Plan for review and re- evaluation. Differential Diagnosis Differential Diagnoses: The differential diagnosis associated with the presentation includes as above. Admission/Observation Not indicated Lab Data [facility] Lab Attestation statement: I reviewed the patient's lab results. As above 07/02/23 15:44 07/02/23 15:44 Labs: Lab Results 07/02/23 Range/Units 15:44 WBC 8.5 (4.8-10.8) X10*3/uL RBC 4.31 (4.20-5.50) X10*6/uL Hgb 12.9 (12.0-16.0) g/dl Hct 38.9 (37.0-47.0) % MCV 90.3 (80.0-98.0) fL MCH 29.9 (27.0-33.0) pg MCHC 33.2 (31.0-35.0) g/dl RDW 16.0 (11.0-16.0) % Plt Count 240 D (160-400) X10*3/uL MPV 9.8 (9.4-12.3) fL Immature Gran % (Auto) 1.3 H (0.0-0.4) % Neut % (Auto) 62.8 (45-73) % Lymph % (Auto) 26.9 (20-40) % [place] % (Auto) 7.2 (2-11) % Eos % (Auto) 1.3 (0-4) % Baso % (Auto) 0.5 (0-2) % Lymph # (Auto) 2.3 (1.2-4.9) X10*3/uL [place] # (Auto) 0.6 (0.1-1.2) X10*3/uL Eos # (Auto) 0.1 (0.0-0.4) X10*3/uL Baso # (Auto) 0.0 (0.0-0.2) X10*3/uL Abs Immat Gran (auto) 0.11 H (0.00-0.03) X10*3/uL Absolute Neuts (auto) 5.4 (2.0-8.3) x10*3/uL Absolute Nucleated RBC 0.000 (0.0-0.012) X10*3/uL Nucleated RBC % (auto) 0.0 (0.0-0.2) /100WBC Sodium 138 (135-145) mmol/L Potassium 4.3 (3.3-5.1) mmol/L Chloride 107 (96-108) mmol/L Carbon Dioxide 20 L (22-29) mmol/L Anion Gap 15 (12-20) BUN 28 H (9-16) mg/dL Creatinine 1.63 H (0.5-1.4) mg/dL Estim Creat Clear Calc 32.6 Estimated GFR 31 Random Glucose 172 H (60-115) mg/dL Calcium 9.4 D (8.4-10.2) mg/dL Total Bilirubin 0.4 (0.0-1.0) mg/dL Direct Bilirubin 0.2 (0.0-0.5) mg/dL AST 29 (5-31) U/L ALT 26 (0-31) U/L Alkaline Phosphatase 64 (39-117) U/L Total Protein 7.9 (6.5-8.0) g/dL Albumin 3.8 (3.5-5.0) g/dL Urine Color Yellow Urine Appearance Cloudy Urine pH 6.0 (5.0-9.0) Ur Specific [place] 1.015 (1.005-1.025) Urine Protein 30 (1+) H (Neg-Trace) mg/dL Urine Glucose (UA) 100 H (Negative) mg/dL Urine Ketones Negative (Negative) mg/dL Urine Blood Large (3+) H (Negative) Urine Nitrite Negative (Negative) Ur Leukocyte Esterase Large (3+) H (Negative) Urine RBC >20 H (0-2) /HPF Urine WBC >50 H (0-5) /HPF Ur Squamous Epith Cells 0-2 (0-2) /HPF Urine Bacteria None Seen (None Seen) Hyaline Casts 0-2 (0-2) /LPF Independent Historian Clinical information obtained from an independent historian. History obtained from or confirmed by: Spouse () External Record Review External record reviewed: Inpatient record, Office record, Outpatient record, Prior outpatient labs, Prior outpatient radiology, Primary care record and Outside ED record Prescription Management I considered prescription management with: Pain Medication (pyridium) and Antibiotic (cefdinir) Chronic Conditions Patient?s care impacted by: Other (vaginitis) Social Determinants Patient?s care significantly limited by Social Determinants of Health including: Other Social Determinant of Health Critical Care Time Critical Care Time Critical Care Time: No Discharge Plan Discharge Clinical Impression: UTI (urinary tract infection), Vaginitis Patient Disposition: Home, Self-Care Instructions: Urinary Tract Infection in Older Adults (ED) Additional Instructions: Your labs today are reassuring. Your physical exam is consistent with vaginitis. Terazol vaginal cream has been sent to your pharmacy. Your urine is positive for infection. Cefdinir as an antibiotic that has been sent to your pharmacy. Take this twice daily for the next 7 days.. Please follow-up with your urologist. In addition, you have been provided with a referral to [facility] You need to call them to make an appointment. They will not call you.. Return with new or worsening symptoms. In the case of an emergency call 911. Prescriptions: New cefdinir 300 mg capsule 300 mg PO BID 7 Days Qty: 14 0RF terconazole 0.4 % cream 1 appful vaginal BEDTIME 7 Days Qty: 45 0RF No Action pyridoxine (vitamin B6) 50 mg tablet 100 mg PO DAILY 90 Days Qty: 180 1RF Replens External Comfort Gel See Rx Instructions vaginal .COMPLEX Qty: 8 0RF Rx Instructions: 1 prefilled applicator vaginally; every 3 days atorvastatin 10 mg tablet 1 tab PO DAILY@1700 metformin 500 mg tablet extended release 24 hr 1 tab PO DAILY@1700 furosemide 40 mg tablet 40 mg PO DAILY Qty: 30 0RF miconazole nitrate 200 mg suppository 200 mg vaginal BEDTIME 3 Days Qty: 3 0RF cefuroxime axetil 500 mg tablet 500 mg PO BID 7 Days Qty: 14 0RF levothyroxine 112 mcg tablet 112 mcg PO DAILY lisinopril 10 mg tablet 10 mg PO DAILY cholecalciferol (vitamin D3) [Vitamin D3] 50 mcg (2,000 unit) tablet 50 mcg PO DAILY estradiol [Estrace] 0.01 % (0.1 mg/gram) cream 0.5 appful vaginal DAILY 7 Days Qty: 42.5 0RF Rx Instructions: Then reduced to twice weekly for 1 week. Referrals[place] [facility] [place] [place] Group] - 1 week (recurrent vaginitis) Interventions: ED Discharge Assessment Last Done: 07/03/23 01:26 Discharge Date/Time: 07/03/23 01:27 Print Language: Sammarinese
[2023-07-02 15:51] LABS: MANUAL DIFF FLAG NO
[2023-07-02 15:53] LABS: Basophils Percent Auto 0.5 % (0-2); Eosinophils Absolute Auto 0.1 X10*3/uL (0.0-0.4); Eosinophils Percent Auto 1.3 % (0-4); Hematocrit 38.9 % (37.0-47.0); Hemoglobin 12.9 g/dl (12.0-16.0); Imm Gran Abs Auto 0.11 X10*3/uL (0.00-0.03); Imm Gran Pct Auto 1.3 % (0.0-0.4); Lymphocytes Absolute Auto 2.3 X10*3/uL (1.2-4.9); Lymphocytes Percent Auto 26.9 % (20-40); Mean Corpuscular HGB Conc 33.2 g/dl (31.0-35.0); Mean Corpuscular Hemoglobin 29.9 pg (27.0-33.0); Mean Corpuscular Volume 90.3 fL (80.0-98.0); Mean Platelet Volume 9.8 fL (9.4-12.3); Monocytes Absolute Auto 0.6 X10*3/uL (0.1-1.2); Monocytes Percent Auto 7.2 % (2-11); Neutrophils Absolute Auto 5.4 x10*3/uL (2.0-8.3); Neutrophils Percent Auto 62.8 % (45-73); Platelet Count 240 X10*3/uL (160-400); Red Blood Count 4.31 X10*6/uL (4.20-5.50); White Blood Count 8.5 X10*3/uL (4.8-10.8)
[2023-07-02 15:54] LABS: Appearance Urine Cloudy; Color Urine Yellow; Glucose Urine UA 100 mg/dL (Negative); Leukocyte Esterase Urine Large (3+) (Negative); Nitrite Urine Negative (Negative); Specific Gravity - Urine 1.015 (1.005-1.025); UMIC TRIGGER UACC YES; Urine Blood Large (3+) (Negative); Urine Ketones Negative (Negative); Urine Protein 30 (1+) mg/dL (Neg-Trace)
[2023-07-02 15:59] LABS: Bacteria Urine None Seen (None Seen); Hyaline Casts Urine 0-2 /LPF (0-2); RBC Urine >20 /HPF (0-2); Squamous Epithelial Cell Urine 0-2 /HPF (0-2); UACC Culture Trigger YES; WBC Urine >50 /HPF (0-5)
[2023-07-02 16:10] LABS: Alanine Aminotransferase 26 U/L (0-31); Albumin Level 3.8 g/dL (3.5-5.0); Alkaline Phosphatase 64 U/L (39-117); Anion Gap 15 (12-20); Aspartate Amino Transferase 29 U/L (5-31); Bilirubin Direct 0.2 mg/dL (0.0-0.5); Bilirubin Total 0.4 mg/dL (0.0-1.0); Blood Urea Nitrogen 28 mg/dL (9-16); Calcium 9.4 mg/dL (8.4-10.2); Carbon Dioxide 20 mmol/L (22-29); Chloride 107 mmol/L (96-108); Creatinine Clr Calc Pharmacy 32.6; Estimated Glomerular Filt Rate 31; Glucose Random 172 mg/dL (60-115); Potassium 4.3 mmol/L (3.3-5.1); Sodium 138 mmol/L (135-145); Total Protein 7.9 g/dL (6.5-8.0)
[2023-07-02 22:16] VITALS: BP 145/58; PULSE 87; RESP 16; TEMP 36.3; O2SAT 94
[2023-07-02] MEDS: Acetaminophen 325 MG TABLET 650 MG PO (22:37)
[2023-07-03 01:24] VITALS: BP 120/55; PULSE 76; RESP 14; TEMP 36.1; O2SAT 97
[2023-07-03 01:26] VITALS: BP 120/55; PULSE 76; RESP 14; TEMP 36.1; O2SAT 97
== END 2023-07-03 01:27 | disposition home or self-care (01) ==
PROVIDERS: Physician Assistant Medical; Emergency Provider Internal Medicine; PCP Internal Medicine
DX: N39.0 Urinary tract infection, site not specified (principal); N76.0 Acute vaginitis; E11.9 Type 2 diabetes mellitus without complications; I10 Essential (primary) hypertension; E78.00 Pure hypercholesterolemia, unspecified; Z87.891 Personal history of nicotine dependence; Z79.02 Long term (current) use of antithrombotics/antiplatelets; Z79.84 Long term (current) use of oral hypoglycemic drugs; Z79.899 Other long term (current) drug therapy
CPT/HCPCS: 36415; 80048; 80076; 81001; 85025; 87086; 87088; 87186; 99283; 99284

== ENCOUNTER 2023-07-06 07:26 | Outpatient (AMB) | payer MEDICARE, SELFPAY ==
[2023-07-06 07:34] VITALS: BP 120/76; BMI 35.2
--- NOTE | 2023-07-06 07:34 | MHC.OFFVIS ---
Vital Signs 07/06/23 07:34 Height 5 ft 4 in Weight 205 lb 0.478 oz BMI 35.2 BP 120/76 Intake Visit Reasons: ER follow up Agronomy Teacher Required: No Information Interpreted: non-clinical & clinical Metallography Teacher: Metallography Teacher Present (Nunu Vergara EZEQUIEL) Accompanied by: Significant Other Allergies chlorpheniramine [From TUSSIONEX] Allergy (Severe, Verified 07/06/23 07:37) HALLUCINATIONS escitalopram [ESCITALOPRAM] Allergy (Severe, Verified 07/06/23 07:37) DISSOCIATIVE REACTION fluoxetine [FLUOXETINE] Allergy (Severe, Verified 07/06/23 07:37) DISSOCIATIVE REACTION hydrocodone [From TUSSIONEX] Allergy (Severe, Verified 07/06/23 07:37) HALLUCINATIONS ibuprofen [IBUPROFEN] Allergy (Severe, Verified 07/06/23 07:37) THROAT SWELLING Sulfa (Sulfonamide Antibiotics) [SULFA (SULFONAMIDE ANTIBIOTICS)] Allergy (Severe, Verified 07/06/23 07:37) DYSPNEA clarithromycin [From BIAXIN] Allergy (Intermediate, Verified 07/06/23 07:37) ABD.PAIN duloxetine [DULOXETINE] Allergy (Intermediate, Verified 07/06/23 07:37) FACIAL NUMBNESS erythromycin base [ERYTHROMYCIN BASE] Allergy (Intermediate, Verified 07/06/23 07:37) RASH Penicillins [PENICILLINS] Allergy (Intermediate, Verified 07/06/23 07:37) RASH tetracycline [TETRACYCLINE] Allergy (Intermediate, Verified 07/06/23 07:37) DIARRHEA ciprofloxacin [From CIPRO] Allergy (Unknown, Verified 07/06/23 07:37) ANAPHYLAXIS codeine [CODEINE] Allergy (Unknown, Verified 07/06/23 07:37) TINNITIS guaifenesin Allergy (Unknown, Verified 07/06/23 07:37) Unknown levofloxacin [From Levaquin] Allergy (Unknown, Verified 07/06/23 07:37) Unknown pregabalin Allergy (Unknown, Verified 07/06/23 07:37) Unknown Post menopausal: Yes HPI Comments Details: Presented as a follow-up from the emergency room complaining of dysuria and vulvovaginal burning. The patient went to the emergency room with the same symptoms was prescribed Diflucan 100 mg p.o. daily for 10 days in addition to Terazol vaginally with no vaginal symptoms improvement. Urine culture grew Proteus mirabilis sensitive to ampicillin, gentamicin, Bactrim and ceftriaxone, resistant to nitrofurantoin. The patient was prescribed cefdinir which she started yesterday, as complaining of persistent severe dysuria. The patient has also a urethral stent. No fever or chills no nausea or vomiting. No vaginal discharge or bleeding [facility] Medical History Hydroureteronephrosis Wound infection Open wound of back, complicated Cellulitis Frequency of urination Vaginal burning Vaginal itching PMB (postmenopausal bleeding) Cirrhosis of liver Does mobilize using walker PONV (postoperative nausea and vomiting) Left foot drop Fatty liver Fibromyalgia Neuropathy RBBB Cholelithiasis Staghorn calculus Renal calculus, bilateral Renal calyceal dilation determined by ultrasound UTI (urinary tract infection) Diabetes mellitus, type II Ganglion cyst Plantar fasciitis Anxiety OA (osteoarthritis) Obstructive airway disease Hypercholesterolemia Low back pain Sciatica Hypothyroidism HTN (hypertension) Primary osteoarthritis of right knee Retained ureteral stent Renal stones Staghorn calculus Perirectal abscess Surgical History Status post cystoscopy with ureteral stent placement History of lumbar discectomy History of lumpectomy of both breasts History of cystoscopy History of lithotripsy Hx of colonoscopy History of surgery Family History Father Alcohol dependence Mother CHF (congestive heart failure) Cancer of breast Mother No problems noted. Other Alcoholic cirrhosis Social History Household Members: None Housing: House Do you presently have visiting nurse or other home services: No Alcohol intake: never Comment: given pyridium Patient Tobacco Use Status: Former Tobacco user Quit Date: 1986 Tobacco use type: Cigarette Years Smoked: 27 Second Hand Smoke Exposure: No Advance Directives Date on File: 04/06/21 service: No Current occupational status: disabled Review of Systems Const All systems reviewed & are unremarkable except as noted in HPI and below Card Reports as per HPI and Reports no additional complaints Resp Reports as per HPI and Reports no additional complaints GI Reports as per HPI and Reports no additional complaints Reports as per HPI Physical Exam Vital Signs: Last Vital Signs BP 120/76 07/06/23 07:34 BMI result Body Mass Index 35.2 Const General: cooperative, healthy appearing and comfortable General: Yes bladder normal to palpation External Female Exam: No lesion Speculum Exam - Vagina: not erythematous and other (Atrophic vaginitis) Speculum Exam - Cervix: Cervix absent Bimanual exam- vagina & uterus: bladder normal to palpation and uterus absent Bimanual Exam- Adnexa, other: Other (No masses detected) Assessment & Plan Assessment & Plan (1) Atrophic vaginitis: Code(s): N95.2 - Postmenopausal atrophic vaginitis Category: Medical Plan: Discussed with the patient the differential diagnosis of her vulvovaginal symptoms, including atrophic vaginitis. BV panel taken, instructions given the patient has discontinue antifungals. Will prescribe estradiol vaginal cream 0.5 g daily for week then x2 per week for 1 week as a diagnostic/therapeutic trial. Discussed with the patient the pros and cons, risks and benefits of the medication risks including but not limited to increase in the risk of breast cancer, DVT and [place]. Instructions given the patient to call if symptoms not improve. 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 Recommended to continue cefdinir and if symptoms not improve within 48 hours, any fever of 100.4 nausea or vomiting or flank pain to call or go to to the emergency room. Instructions given the patient to schedule a Follow-up appointment with urology All questions answered, the patient verbalized understanding Orders: Orders Bacterial Vaginosis Panel Today N89.8 - Other specified noninflammatory disorders of vagina Medications: New estradiol 0.01%(0.1mg/gram) (Estrace) Then reduced to twice weekly for 1 week. 0.5 appful vaginal DAILY 42.5 grams 0RF 1 week Coding Level of Care Code Est Pt Level 3 (29622) Diagnoses Atrophic vaginitis N95.2 UTI (urinary tract infection) N39.0
== END 2023-07-06 12:14 | disposition home or self-care (01) ==
PROVIDERS: PCP Internal Medicine; Visit Provider Obstetrics & Gynecology
DX: N95.2 Postmenopausal atrophic vaginitis (principal); N39.0 Urinary tract infection, site not specified
CPT/HCPCS: 99213

== ENCOUNTER 2023-07-06 07:26 | Outpatient (REF) | payer MEDICARE, SELFPAY ==
[2023-07-06 17:36] LABS: Bacterial Vaginosis PCR NEGATIVE (Negative); Candida Group PCR NOT DETECTED (Not Detect); Candida glab krusei PCR NOT DETECTED (Not Detect); Trichomonas vaginalis PCR NOT DETECTED (Not Detect)
== END 2023-07-06 07:27 | disposition home or self-care (01) ==
LOC: HO.LNP 07:26
PROVIDERS: PCP Internal Medicine; Visit Provider Obstetrics & Gynecology
DX: R30.0 Dysuria (principal); N95.2 Postmenopausal atrophic vaginitis; N39.0 Urinary tract infection, site not specified
CPT/HCPCS: 0352U; 99212

== ENCOUNTER 2023-07-19 12:40 | Outpatient (REF) | payer MEDICARE, SELFPAY ==
[2023-07-19 16:20] LABS: Appearance Urine Clear; Color Urine Yellow; Glucose Urine UA Negative (Negative); Leukocyte Esterase Urine Small (1+) (Negative); Nitrite Urine Negative (Negative); Specific Gravity - Urine <= 1.005 (1.005-1.025); UMIC TRIGGER UA YES; Urine Blood Moderate (2+) (Negative); Urine Ketones Negative (Negative); Urine Protein Negative (Neg-Trace)
[2023-07-19 16:23] LABS: Bacteria Urine None Seen (None Seen); Hyaline Casts Urine 0-2 /LPF (0-2); Squamous Epithelial Cell Urine 0-2 /HPF (0-2)
== END 2023-07-19 12:41 | disposition home or self-care (01) ==
LOC: HO.HMGCLDS 12:40
PROVIDERS: PCP Internal Medicine; Visit Provider Internal Medicine
DX: N20.0 Calculus of kidney (principal); N94.9 Unspecified condition associated with female genital organs and menstrual cycle
CPT/HCPCS: 81001; 87086

== ENCOUNTER 2023-07-22 00:40 | Emergency (ER) | payer MEDICARE, SELFPAY ==
[2023-07-22 00:45] VITALS: BP 108/47; PULSE 90; RESP 20; TEMP 37.1; O2SAT 98; BMI 34.7
[2023-07-22 01:05] LABS: MANUAL DIFF FLAG NO
--- NOTE | 2023-07-22 01:06 | MHC.EDTECH ---
Pt given urine cup and wipes and instructed to let registration desk know if she is able to do sample so this tech can collect and send to lab.
[2023-07-22 01:07] LABS: Basophils Percent Auto 0.4 % (0-2); Eosinophils Absolute Auto 0.1 X10*3/uL (0.0-0.4); Eosinophils Percent Auto 0.9 % (0-4); Hematocrit 37.7 % (37.0-47.0); Hemoglobin 12.8 g/dl (12.0-16.0); Imm Gran Abs Auto 0.14 X10*3/uL (0.00-0.03); Imm Gran Pct Auto 1.3 % (0.0-0.4); Lymphocytes Absolute Auto 2.5 X10*3/uL (1.2-4.9); Lymphocytes Percent Auto 24.1 % (20-40); Mean Corpuscular Volume 88.5 fL (80.0-98.0); Mean Platelet Volume 9.2 fL (9.4-12.3); Monocytes Absolute Auto 0.9 X10*3/uL (0.1-1.2); Monocytes Percent Auto 8.4 % (2-11); Neutrophils Absolute Auto 6.8 x10*3/uL (2.0-8.3); Neutrophils Percent Auto 64.9 % (45-73); Platelet Count 245 X10*3/uL (160-400); Red Blood Count 4.26 X10*6/uL (4.20-5.50); Red Cell Distribution Width 15.8 % (11.0-16.0); White Blood Count 10.6 X10*3/uL (4.8-10.8)
[2023-07-22 01:21] LABS: Alanine Aminotransferase 24 U/L (0-31); Albumin Level 3.7 g/dL (3.5-5.0); Alkaline Phosphatase 78 U/L (39-117); Anion Gap 14 (12-20); Aspartate Amino Transferase 30 U/L (5-31); Bilirubin Total 0.5 mg/dL (0.0-1.0); Blood Urea Nitrogen 20 mg/dL (9-16); Calcium 9.5 mg/dL (8.4-10.2); Carbon Dioxide 22 mmol/L (22-29); Chloride 105 mmol/L (96-108); Creatinine Clr Calc Pharmacy 30.9; Estimated Glomerular Filt Rate 29; Glucose Random 132 mg/dL (60-115); Potassium 3.1 mmol/L (3.3-5.1); Sodium 138 mmol/L (135-145); Total Protein 7.8 g/dL (6.5-8.0)
[2023-07-22 01:26] LABS: Appearance Urine Turbid; Color Urine Red; Glucose Urine UA Negative (Negative); Leukocyte Esterase Urine Large (3+) (Negative); Nitrite Urine Negative (Negative); PH 5.5 (5.0-9.0); UMIC TRIGGER UACC YES; Urine Blood Large (3+) (Negative); Urine Ketones Negative (Negative); Urine Protein 100 (2+) mg/dL (Neg-Trace)
[2023-07-22 01:27] LABS: Bacteria Urine None Seen (None Seen); Hyaline Casts Urine 0-2 /LPF (0-2); RBC Urine >20 /HPF (0-2); Squamous Epithelial Cell Urine 0-2 /HPF (0-2); UACC Culture Trigger YES; WBC Urine >50 /HPF (0-5)
[2023-07-22 04:00] VITALS: BP 110/60; PULSE 87; RESP 20; TEMP 37.1; O2SAT 98
--- NOTE | 2023-07-22 06:38 | ED_ITS ---
HPI - General Adult General Chief complaint: Abdominal Pain Stated complaint: Blood in urine Time Seen by Provider: 07/22/23 05:47 Source: patient Mode of arrival: ambulatory Limitations: no limitations History of Present Illness ED Provider: Dr. Jessica Holland HPI narrative: Patient comes to the emergency room complaining of hematuria and dysuria. Patient states that she finished her course of cefdinir approximately 2 days ago for which she was treated for UTI. Patient denies any significant abdominal pain, no flank pain, no fever chills. Related Data Home Medications ?Medication ?Instructions ?Recorded ?Confirmed levothyroxine 112 mcg tablet 112 mcg PO DAILY 08/28/20 06/25/23 atorvastatin 10 mg tablet 1 tab PO DAILY@1700 04/05/21 06/25/23 metformin 500 mg tablet,extended 1 tab PO DAILY@1700 04/06/21 06/25/23 release 24 hr cholecalciferol (vitamin D3) 50 50 mcg PO DAILY 07/19/22 06/25/23 mcg (2,000 unit) tablet (Vitamin D3) lisinopril 10 mg tablet 10 mg PO DAILY 07/19/22 06/25/23 Previous Rx's ?Medication ?Instructions ?Recorded furosemide 40 mg tablet 40 mg PO DAILY #30 tabs 12/16/21 pyridoxine (vitamin B6) 50 mg 100 mg (2 x 50 mg) PO DAILY 90 06/21/23 tablet days #180 tabs cefuroxime axetil 500 mg tablet 500 mg PO BID 7 days #14 tabs 06/25/23 miconazole nitrate 200 mg vaginal 200 mg vaginal BEDTIME 3 days #3 ea 06/25/23 suppository glycerin-mineral oil-polycarbophil See Rx Instructions vaginal 06/27/23 vaginal gel (Replens External .COMPLEX #8 applicators Comfort vaginal gel) cefdinir 300 mg capsule 300 mg PO BID 7 days #14 caps 07/03/23 terconazole 0.4 % vaginal cream 1 appful vaginal BEDTIME 7 days 07/03/23 #45 grams estradiol 0.01% (0.1 mg/gram) 0.5 appful vaginal DAILY 1 week 07/06/23 vaginal cream (Estrace) #42.5 grams cefuroxime axetil 250 mg tablet 250 mg PO BID #20 tabs 07/22/23 Allergies Allergy/AdvReac Type Severity Reaction Status Date / Time chlorpheniramine Allergy Severe HALLUCINATI Verified 07/22/23 00:46 [From TUSSIONEX] ONS escitalopram [ESCITALOPRAM] Allergy Severe DISSOCIATIVE Verified 07/22/23 00:46 REACTION fluoxetine [FLUOXETINE] Allergy Severe DISSOCIATIVE Verified 07/22/23 00:46 REACTION hydrocodone [From TUSSIONEX] Allergy Severe HALLUCINATI Verified 07/22/23 00:46 ONS ibuprofen [IBUPROFEN] Allergy Severe THROAT Verified 07/22/23 00:46 SWELLING Sulfa (Sulfonamide Allergy Severe DYSPNEA Verified 07/22/23 00:46 Antibiotics) [SULFA (SULFONAMIDE ANTIBIOTICS)] clarithromycin [From BIAXIN] Allergy Intermediate ABD.PAIN Verified 07/22/23 00:46 duloxetine [DULOXETINE] Allergy Intermediate FACIAL Verified 07/22/23 00:46 NUMBNESS erythromycin base Allergy Intermediate RASH Verified 07/22/23 00:46 [ERYTHROMYCIN BASE] Penicillins [PENICILLINS] Allergy Intermediate RASH Verified 07/22/23 00:46 tetracycline [TETRACYCLINE] Allergy Intermediate DIARRHEA Verified 07/22/23 00:46 ciprofloxacin [From CIPRO] Allergy Unknown ANAPHYLAXIS Verified 07/22/23 00:46 codeine [CODEINE] Allergy Unknown TINNITIS Verified 07/22/23 00:46 guaifenesin Allergy Unknown Unknown Verified 07/22/23 00:46 levofloxacin [From Levaquin] Allergy Unknown Unknown Verified 07/22/23 00:46 pregabalin Allergy Unknown Unknown Verified 07/22/23 00:46 Review of Systems 2 Review of Systems: Constitutional : No Weight loss, No Fever, No Chills, No Night Sweats, No Fatigue, No Malaise ENT/Mouth : No Hearing loss, No Ear Pain, No Nasal Congestion, No Sinus Pain, No Hoarseness, No sore throat, No Rhinorrhea, No Swallowing Difficulty Eyes: No Eye Pain, No Swelling, No Redness, No Foreign Body, No Discharge, No Vision Changes Cardiovascular : No Chest Pain, No SOB, No Dyspnea on Exertion, No Orthopnea, No Edema, No Palpitations Respiratory : No Cough, No Sputum, No Wheezing, No Smoke Exposure, No Dyspnea Gastrointestinal : No Nausea, No Vomiting, No Diarrhea, No Constipation, No abdominal Pain, No Hematochezia, No Melena Genitourinary : no irregular bleeding, complaining of hematuria and dysuria, no flank pain, no urinary flow changes Musculoskeletal : No joint pain, No Myalgias, No Joint Swelling Skin : No Skin Lesions, No rash Neuro : No Weakness, No Numbness, No Paresthesias, No Loss of Consciousness, No Dizziness, No Headache Psych : No Anxiety/Panic, No Depression, No SI/HI/AH/VH, No Social Issues, Heme/Lymph: No Bruising, No Bleeding,No Lymphadenopathy Endocrine : No Polyuria, No Polydipsia, No Temperature Intolerance FOR[facility]LY [facility], [facility] Past Medical History Medical History Hydroureteronephrosis Wound infection Open wound of back, complicated Cellulitis Frequency of urination Vaginal burning Vaginal itching PMB (postmenopausal bleeding) Cirrhosis of liver Does mobilize using walker PONV (postoperative nausea and vomiting) Left foot drop Fatty liver Fibromyalgia Neuropathy RBBB Cholelithiasis Staghorn calculus Renal calculus, bilateral Renal calyceal dilation determined by ultrasound UTI (urinary tract infection) Diabetes mellitus, type II Ganglion cyst Plantar fasciitis Anxiety OA (osteoarthritis) Obstructive airway disease Hypercholesterolemia Low back pain Sciatica Hypothyroidism HTN (hypertension) Primary osteoarthritis of right knee Retained ureteral stent Renal stones Staghorn calculus Perirectal abscess Surgical History Status post cystoscopy with ureteral stent placement History of lumbar discectomy History of lumpectomy of both breasts History of cystoscopy History of lithotripsy Hx of colonoscopy History of surgery Family History Family History Father Alcohol dependence Mother CHF (congestive heart failure) Cancer of breast Mother No problems noted. Other Alcoholic cirrhosis Social History Social History Household Members: None Housing: House Do you presently have visiting nurse or other home services: No Alcohol intake: never Comment: given pyridium Patient Tobacco Use Status: Former Tobacco user Tobacco use type: Cigarette Years Smoked: 27 Second Hand Smoke Exposure: No Advance Directives: Yes Advance Directives on File: Yes Advance Directives Date on File: 04/06/21 service: No Current occupational status: disabled Physical Exam ED Vital Signs: Vital Signs - 24 hr 07/22/23 00:45 Temperature 98.8 F Pulse Rate 90 Respiratory Rate 20 Blood Pressure 108/47 L Pulse Oximetry 98 Oxygen Delivery Method Room Air BMI result Body Mass Index 34.7 Const Other: Appearance: Alert. Oriented X3. No acute distress. Well-appearing Eyes: Pupils equal, round and reactive to light. ENT: Pharynx normal. Neck: Normal inspection. Neck supple. No lymph nodes noted. No crepitus CVS: Normal heart rate and rhythm. Pulses normal. Normal S1 and S2 Respiratory: No respiratory distress. Breath sounds normal. No Wheezing. No rales Abdomen: Soft and nontender. No rigidity. No distention. No flank pain Skin: Skin warm and dry. Normal skin color. Normal skin turgor. Extremities: No lower extremity edema. No Lacerations. No Rash Neuro: Oriented X 3. No motor deficit. No sensory deficit. Moving all extremities. No slurred speech. CN 2 through 12 grossly intact Psych: calm, cooperative, normal affect Medical Decision Making Medical Decision Making MDM Narrative: -I reviewed patient's labs, patient's white blood cell count within normal limits, potassium a bit low, 3.1, creatinine chronically elevated. -unfortunately, given patient's list of allergies and list of resistance to antibiotics, the only choice he is to continue cephalosporins. -patient has an appointment pending with Dr. Reis, her urologist in couple of weeks -patient has no abdominal pain, no flank pain, sepsis not suspected, pyelonephritis not suspected Differential Diagnosis Differential Diagnoses: The differential diagnosis associated with the presentation includes Admission/Observation Consideration of admission/observation: Escalation of care including admission/observation considered Lab Data [facility] Lab Attestation statement: I reviewed the patient's lab results. 07/22/23 01:01 07/22/23 01:01 Labs: Lab Results 07/22/23 07/22/23 Range/Units 01:01 01:19 WBC 10.6 (4.8-10.8) X10*3/uL RBC 4.26 (4.20-5.50) X10*6/uL Hgb 12.8 (12.0-16.0) g/dl Hct 37.7 (37.0-47.0) % MCV 88.5 (80.0-98.0) fL MCH 30.0 (27.0-33.0) pg MCHC 34.0 (31.0-35.0) g/dl RDW 15.8 (11.0-16.0) % Plt Count 245 (160-400) X10*3/uL MPV 9.2 L (9.4-12.3) fL Immature Gran % (Auto) 1.3 H (0.0-0.4) % Neut % (Auto) 64.9 (45-73) % Lymph % (Auto) 24.1 (20-40) % [place] % (Auto) 8.4 (2-11) % Eos % (Auto) 0.9 (0-4) % Baso % (Auto) 0.4 (0-2) % Lymph # (Auto) 2.5 (1.2-4.9) X10*3/uL [place] # (Auto) 0.9 (0.1-1.2) X10*3/uL Eos # (Auto) 0.1 (0.0-0.4) X10*3/uL Baso # (Auto) 0.0 (0.0-0.2) X10*3/uL Abs Immat Gran (auto) 0.14 H (0.00-0.03) X10*3/uL Absolute Neuts (auto) 6.8 (2.0-8.3) x10*3/uL Absolute Nucleated RBC 0.000 (0.0-0.012) X10*3/uL Nucleated RBC % (auto) 0.0 (0.0-0.2) /100WBC Sodium 138 (135-145) mmol/L Potassium 3.1 L D (3.3-5.1) mmol/L Chloride 105 (96-108) mmol/L Carbon Dioxide 22 (22-29) mmol/L Anion Gap 14 (12-20) BUN 20 H (9-16) mg/dL Creatinine 1.70 H (0.5-1.4) mg/dL Estim Creat Clear Calc 30.9 Estimated GFR 29 Random Glucose 132 H (60-115) mg/dL Calcium 9.5 (8.4-10.2) mg/dL Total Bilirubin 0.5 (0.0-1.0) mg/dL AST 30 (5-31) U/L ALT 24 (0-31) U/L Alkaline Phosphatase 78 (39-117) U/L Total Protein 7.8 (6.5-8.0) g/dL Albumin 3.7 (3.5-5.0) g/dL Urine Color Red A Urine Appearance Turbid Urine pH 5.5 (5.0-9.0) Ur Specific [place] 1.010 (1.005-1.025) Urine Protein 100 (2+) H (Neg-Trace) mg/dL Urine Glucose (UA) Negative (Negative) mg/dL Urine Ketones Negative (Negative) mg/dL Urine Blood Large (3+) H (Negative) Urine Nitrite Negative (Negative) Ur Leukocyte Esterase Large (3+) H (Negative) Urine RBC >20 H (0-2) /HPF Urine WBC >50 H (0-5) /HPF Ur Squamous Epith Cells 0-2 (0-2) /HPF Urine Bacteria None Seen (None Seen) Hyaline Casts 0-2 (0-2) /LPF Discharge Plan Discharge Clinical Impression: UTI (urinary tract infection), Hypokalemia Patient Disposition: Home, Self-Care Instructions: Urinary Tract Infection in Older Adults (ED) Additional Instructions: Please follow-up with your primary care physician tomorrow. If you have any worsening or new symptoms, please return to the emergency room or call 911 Prescriptions: New cefuroxime axetil 250 mg tablet 250 mg PO BID Qty: 20 0RF No Action pyridoxine (vitamin B6) 50 mg tablet 100 mg PO DAILY 90 Days Qty: 180 1RF Replens External Comfort Gel See Rx Instructions vaginal .COMPLEX Qty: 8 0RF Rx Instructions: 1 prefilled applicator vaginally; every 3 days atorvastatin 10 mg tablet 1 tab PO DAILY@1700 metformin 500 mg tablet extended release 24 hr 1 tab PO DAILY@1700 furosemide 40 mg tablet 40 mg PO DAILY Qty: 30 0RF cefdinir 300 mg capsule 300 mg PO BID 7 Days Qty: 14 0RF terconazole 0.4 % cream 1 appful vaginal BEDTIME 7 Days Qty: 45 0RF miconazole nitrate 200 mg suppository 200 mg vaginal BEDTIME 3 Days Qty: 3 0RF cefuroxime axetil 500 mg tablet 500 mg PO BID 7 Days Qty: 14 0RF levothyroxine 112 mcg tablet 112 mcg PO DAILY lisinopril 10 mg tablet 10 mg PO DAILY cholecalciferol (vitamin D3) [Vitamin D3] 50 mcg (2,000 unit) tablet 50 mcg PO DAILY estradiol [Estrace] 0.01 % (0.1 mg/gram) cream 0.5 appful vaginal DAILY 7 Days Qty: 42.5 0RF Rx Instructions: Then reduced to twice weekly for 1 week. Print Language: Bengali
[2023-07-22] MEDS: Potassium Chloride Packet 20 MEQ PACKET 40 MEQ PO (06:52)
[2023-07-22] MEDS: cefuroxime axetiL 250 MG TABLET PO (06:52)
[2023-07-22 07:02] VITALS: BP 110/60; PULSE 87; RESP 20; TEMP 37.1; O2SAT 98
== END 2023-07-22 07:04 | disposition home or self-care (01) ==
PROVIDERS: Emergency Provider Emergency Medicine; PCP Internal Medicine
DX: N39.0 Urinary tract infection, site not specified (principal); R31.9 Hematuria, unspecified; R30.0 Dysuria; E87.6 Hypokalemia; Z79.899 Other long term (current) drug therapy
CPT/HCPCS: 36415; 80053; 81001; 85025; 87086; 99283; 99284

== ENCOUNTER 2023-08-04 11:39 | Outpatient (AMB) | payer MEDICARE, SELFPAY ==
--- NOTE | 2023-08-04 11:43 | MHC.OFFVIS ---
Intake Visit Reasons: 2m follow up Intake Note: Patient is present for 2 month f/u Urology Medication:none Antibiotic Allergy:penicillin,sulfa Blood Thinner:none pt states it estes when she urinates and estes in general. Household Appliance Installer Required: No Allergies chlorpheniramine [From TUSSIONEX] Allergy (Severe, Verified 08/04/23 11:47) HALLUCINATIONS escitalopram [ESCITALOPRAM] Allergy (Severe, Verified 08/04/23 11:47) DISSOCIATIVE REACTION fluoxetine [FLUOXETINE] Allergy (Severe, Verified 08/04/23 11:47) DISSOCIATIVE REACTION hydrocodone [From TUSSIONEX] Allergy (Severe, Verified 08/04/23 11:47) HALLUCINATIONS ibuprofen [IBUPROFEN] Allergy (Severe, Verified 08/04/23 11:47) THROAT SWELLING Sulfa (Sulfonamide Antibiotics) [SULFA (SULFONAMIDE ANTIBIOTICS)] Allergy (Severe, Verified 08/04/23 11:47) DYSPNEA clarithromycin [From BIAXIN] Allergy (Intermediate, Verified 08/04/23 11:47) ABD.PAIN duloxetine [DULOXETINE] Allergy (Intermediate, Verified 08/04/23 11:47) FACIAL NUMBNESS erythromycin base [ERYTHROMYCIN BASE] Allergy (Intermediate, Verified 08/04/23 11:47) RASH Penicillins [PENICILLINS] Allergy (Intermediate, Verified 08/04/23 11:47) RASH tetracycline [TETRACYCLINE] Allergy (Intermediate, Verified 08/04/23 11:47) DIARRHEA ciprofloxacin [From CIPRO] Allergy (Unknown, Verified 08/04/23 11:47) ANAPHYLAXIS codeine [CODEINE] Allergy (Unknown, Verified 08/04/23 11:47) TINNITIS guaifenesin Allergy (Unknown, Verified 08/04/23 11:47) Unknown levofloxacin [From Levaquin] Allergy (Unknown, Verified 08/04/23 11:47) Unknown pregabalin Allergy (Unknown, Verified 08/04/23 11:47) Unknown Medication List - Last Reconciled 08/04/23 by Jose Reis MD atorvastatin 1 tab PO DAILY@1700 cefdinir 300 mg PO BID 7 days cefdinir 300 mg PO BID 7 days cefuroxime axetil 250 mg PO BID cefuroxime axetil 500 mg PO BID 7 days cholecalciferol (vitamin D3) (Vitamin D3) 50 mcg PO DAILY estradiol 0.01%(0.1mg/gram) (Estrace) 0.5 appful vaginal DAILY 1 week furosemide 40 mg PO DAILY glycerin-min oil-polycarbophil (Replens External Comfort vaginal gel) 1 prefilled applicator vaginally; every 3 days levothyroxine 112 mcg PO DAILY lisinopril 10 mg PO DAILY metformin ER 1 tab PO DAILY@1700 miconazole nitrate 200 mg vaginal BEDTIME 3 days pyridoxine (vitamin B6) 100 mg (2 x 50 mg) PO DAILY 90 days terconazole 0.4% 1 appful vaginal BEDTIME 7 days HPI Comments Details: Xi is a pleasant female. She is a patient of Dr. Wang. She is seen for the following urologic conditions - nephrolithiasis - recurrent UTI Improved when management Repeat CT urogram to ensure no leakage Nephrolithiasis Multiple prior in admission for infection and staghorn - treatment had concurrent abscess 6 months after initial ureteroscopy Intervention - 03/31 right-sided ureteroscopy laser lithotripsy and stent placement - 06/28 completion right ureteroscopy with left ureteroscopy Stone composition - 03/31 Carbonate Apatite (Dahllite) 100% - 06/28 calcium oxalate Imaging - 03/31 CT scan 4 cm right staghorn calculus, 6 mm left Therapeutic plan - suppression antibiotics for recurrent UTI PFSH Medical History Hydroureteronephrosis Wound infection Open wound of back, complicated Cellulitis Frequency of urination Vaginal burning Vaginal itching PMB (postmenopausal bleeding) Cirrhosis of liver Does mobilize using walker PONV (postoperative nausea and vomiting) Left foot drop Fatty liver Fibromyalgia Neuropathy RBBB Cholelithiasis Staghorn calculus Renal calculus, bilateral Renal calyceal dilation determined by ultrasound UTI (urinary tract infection) Diabetes mellitus, type II Ganglion cyst Plantar fasciitis Anxiety OA (osteoarthritis) Obstructive airway disease Hypercholesterolemia Low back pain Sciatica Hypothyroidism HTN (hypertension) Primary osteoarthritis of right knee Retained ureteral stent Renal stones Staghorn calculus Perirectal abscess Surgical History Status post cystoscopy with ureteral stent placement History of lumbar discectomy History of lumpectomy of both breasts History of cystoscopy History of lithotripsy Hx of colonoscopy History of surgery Family History Father Alcohol dependence Mother CHF (congestive heart failure) Cancer of breast Mother No problems noted. Other Alcoholic cirrhosis Social History Household Members: None Housing: House Do you presently have visiting nurse or other home services: No Alcohol intake: never Comment: given pyridium Patient Tobacco Use Status: Former Tobacco user Tobacco use type: Cigarette Years Smoked: 27 Second Hand Smoke Exposure: No Advance Directives Date on File: 04/06/21 service: No Current occupational status: disabled Review of Systems Const Denies chills and Denies fever(s) Card Reports no additional complaints and Denies syncope Resp Denies cough GI Denies abdominal pain and Denies heartburn Reports as per HPI and Denies change in libido Neuro Denies syncope Psych Denies change in libido Endo Denies change in libido Physical Exam Const General: cooperative, healthy appearing, comfortable and no acute distress Orientation/consciousness: patient oriented x3 HEENT Face and sinus: Yes normal facial exam Mouth: moist mucous membranes Neck Neck: Yes normal visual inspection, Yes full ROM and Yes trachea midline Chest Chest palpation & inspection: normal inspection of the chest Resp Effort & Inspection: normal respiratory effort, able to speak in complete sentences and no respiratory distress GI Inspection: Yes normal to inspection Back/Spine/Pelvis Cervical Spine: normal cervical lordosis Thoracic/Lumbar Spine: thoracic and lumbar spine normal to inspection Skin General skin exam: no rashes or lesions noted Neuro General: patient oriented x3, gait normal, tone normal and moves all extremities Extrem General: Yes normal to inspection and Yes capillary refill normal Assessment & Plan Assessment & Plan (1) Frequency of urination: Code(s): R35.0 - Frequency of micturition Category: Medical (2) Renal abscess: Code(s): N15.1 - Renal and perinephric abscess Category: Medical Plan CT urogram Orders: Orders CT urogram Today K68.19 - Other retroperitoneal abscess, R31.0 - Gross hematuria Patient Instructions: Imaging studies, laboratory and physical exam results were discussed and reviewed in detail. No major barriers to patient understanding were identified. An opportunity to ask questions regarding the treatment plan was provided. All questions were answered. The patient expressed understanding and agreement with the above treatment plan. The patient is aware they should contact our office by phone for worsening of their current condition or the appearance of new urologic symptoms. Compliance is encouraged with any medications and followup testing that is ordered. It is a privilege to participate in the urologic care of your patient. If you have any questions or concerns regarding treatment for the above conditions, or other urologic issues, please do not hesitate to contact me. The office telephone contact is [phone]. This note is constructed using voice recognition software. While every effort has been made to ensure accuracy shingles roofer errors may have been included. Yours sincerely, Dr Jose Reis MD, [facility] - Urology Providers of Expert, Compassionate Care for the Genitourinary System Coding Level of Care Code Est Pt Level 3 (83655) Diagnoses Frequency of urination R35.0 Renal abscess N15.1
== END 2023-08-04 12:21 | disposition home or self-care (01) ==
PROVIDERS: PCP Internal Medicine; Visit Provider Urology
DX: R35.0 Frequency of micturition (principal); N15.1 Renal and perinephric abscess
CPT/HCPCS: 99213

== ENCOUNTER → 2023-08-04 11:39 | Outpatient (BNVA) | payer MEDICARE, SELFPAY | PROVIDERS: PCP Internal Medicine; Visit Provider Urology | DX: R35.0 Frequency of micturition (principal); N15.1 Renal and perinephric abscess | CPT/HCPCS: 99212 ==

== ENCOUNTER 2023-08-10 12:48 | Outpatient (AMB) | payer MEDICARE, SELFPAY ==
[2023-08-10 13:06] VITALS: BP 118/60; BMI 39.2
--- NOTE | 2023-08-10 13:06 | MHC.OFFVIS ---
Vital Signs 08/10/23 13:06 Height 5 ft Weight 200 lb 9.93 oz BMI 39.2 BP 118/60 Intake Visit Reasons: follow up vaginal burning Architecture Intern Required: No Information Interpreted: non-clinical & clinical House Manager: House Manager Present (Nunu Vegrara EZEQUIEL) Accompanied by: Spouse Allergies chlorpheniramine [From TUSSIONEX] Allergy (Severe, Verified 08/10/23 13:23) HALLUCINATIONS escitalopram [ESCITALOPRAM] Allergy (Severe, Verified 08/10/23 13:23) DISSOCIATIVE REACTION fluoxetine [FLUOXETINE] Allergy (Severe, Verified 08/10/23 13:23) DISSOCIATIVE REACTION hydrocodone [From TUSSIONEX] Allergy (Severe, Verified 08/10/23 13:23) HALLUCINATIONS ibuprofen [IBUPROFEN] Allergy (Severe, Verified 08/10/23 13:23) THROAT SWELLING Sulfa (Sulfonamide Antibiotics) [SULFA (SULFONAMIDE ANTIBIOTICS)] Allergy (Severe, Verified 08/10/23 13:23) DYSPNEA clarithromycin [From BIAXIN] Allergy (Intermediate, Verified 08/10/23 13:23) ABD.PAIN duloxetine [DULOXETINE] Allergy (Intermediate, Verified 08/10/23 13:23) FACIAL NUMBNESS erythromycin base [ERYTHROMYCIN BASE] Allergy (Intermediate, Verified 08/10/23 13:23) RASH Penicillins [PENICILLINS] Allergy (Intermediate, Verified 08/10/23 13:23) RASH tetracycline [TETRACYCLINE] Allergy (Intermediate, Verified 08/10/23 13:23) DIARRHEA ciprofloxacin [From CIPRO] Allergy (Unknown, Verified 08/10/23 13:23) ANAPHYLAXIS codeine [CODEINE] Allergy (Unknown, Verified 08/10/23 13:23) TINNITIS guaifenesin Allergy (Unknown, Verified 08/10/23 13:23) Unknown levofloxacin [From Levaquin] Allergy (Unknown, Verified 08/10/23 13:23) Unknown pregabalin Allergy (Unknown, Verified 08/10/23 13:23) Unknown Post menopausal: Yes HPI Comments Details: Presenting for follow-up. The patient took estradiol cream developed worse vaginal burning and discontinued it. Since then her symptoms have been manageable, the vaginal burning is less. No other complaint PFSH Medical History Hydroureteronephrosis Wound infection Open wound of back, complicated Cellulitis Frequency of urination Vaginal burning Vaginal itching PMB (postmenopausal bleeding) Cirrhosis of liver Does mobilize using walker PONV (postoperative nausea and vomiting) Left foot drop Fatty liver Fibromyalgia Neuropathy RBBB Cholelithiasis Staghorn calculus Renal calculus, bilateral Renal calyceal dilation determined by ultrasound UTI (urinary tract infection) Diabetes mellitus, type II Ganglion cyst Plantar fasciitis Anxiety OA (osteoarthritis) Obstructive airway disease Hypercholesterolemia Low back pain Sciatica Hypothyroidism HTN (hypertension) Primary osteoarthritis of right knee Retained ureteral stent Renal stones Staghorn calculus Perirectal abscess Surgical History Status post cystoscopy with ureteral stent placement History of lumbar discectomy History of lumpectomy of both breasts History of cystoscopy History of lithotripsy Hx of colonoscopy History of surgery Family History Father Alcohol dependence Mother CHF (congestive heart failure) Cancer of breast Mother No problems noted. Other Alcoholic cirrhosis Social History Household Members: None Housing: House Do you presently have visiting nurse or other home services: No Alcohol intake: never Comment: given pyridium Patient Tobacco Use Status: Former Tobacco user Tobacco use type: Cigarette Years Smoked: 27 Second Hand Smoke Exposure: No Advance Directives Date on File: 04/06/21 service: No Current occupational status: disabled Review of Systems Const All systems reviewed & are unremarkable except as noted in HPI and below Card Reports as per HPI and Reports no additional complaints Resp Reports as per HPI and Reports no additional complaints GI Reports as per HPI and Reports no additional complaints Reports as per HPI Physical Exam Vital Signs: Last Vital Signs BP 118/60 08/10/23 13:06 BMI result Body Mass Index 39.2 Const General: cooperative, healthy appearing and comfortable General: Yes no CVA tenderness External Female Exam: normal external appearance and normal appearance of the urethra Speculum Exam - Vagina: normal appearance of the vagina, no lesions and no masses Speculum Exam - Cervix: Cervix absent Bimanual exam- vagina & uterus: uterus absent Bimanual Exam- Adnexa, other: Other (No masses felt) Manual OB Exam: other Back/Spine/Pelvis Back: no CVA tenderness Assessment & Plan Assessment & Plan (1) Atrophic vaginitis: Code(s): N95.2 - Postmenopausal atrophic vaginitis Category: Medical Plan: Instructions given the patient to call in case symptoms recur. All questions answered, the patient verbalized understanding. Coding Level of Care Code Est Pt Level 3 (93993) Diagnoses Atrophic vaginitis N95.2
== END 2023-08-10 13:44 | disposition home or self-care (01) ==
LOC: HO.HWS 12:48
PROVIDERS: PCP Internal Medicine; Visit Provider Obstetrics & Gynecology
DX: N95.2 Postmenopausal atrophic vaginitis (principal)
CPT/HCPCS: 99213

== ENCOUNTER → 2023-08-10 12:48 | Outpatient (BNVA) | payer MEDICARE, SELFPAY | PROVIDERS: PCP Internal Medicine; Visit Provider Obstetrics & Gynecology | DX: N95.2 Postmenopausal atrophic vaginitis (principal) | CPT/HCPCS: 99212 ==

== ENCOUNTER 2023-08-13 17:28 | Emergency (ER) | payer MEDICARE, SELFPAY ==
--- NOTE | ~2023-08-13 | XR_ITS ---
EXAMINATION: XR TOES, LEFT CLINICAL INFORMATION: Great toe injury COMPARISON: Left first toe 07/14/2022 TECHNIQUE: 3 views of the left toes were obtained. FINDINGS: Again seen is a fracture involving the distal phalanx of the first great toe. On the study from just over one year ago, a similar fracture but this appears more complex on the current study with an additional transverse fracture closer to the base of the phalanx. There is no significant evidence of healing. Findings may indicate associated osteomyelitis. XR/XR toe LT min 2V IMPRESSION: Chronic fracture distal phalanx of the first great toe with new additional horizontal component without evidence of significant interval healing over the past year. Findings may indicate associated osteomyelitis. MRI may be helpful for further evaluation.
[2023-08-13 17:33] VITALS: BP 130/79; PULSE 110; RESP 22; TEMP 36.2; O2SAT 98; BMI 34.8
--- NOTE | 2023-08-13 17:40 | ED_ITS ---
HPI - Extremity Injury (Lower) General Chief Complaint: Extremity Injury, Upper Stated Complaint: toe inj Time Seen by Provider: 08/13/23 20:22 Source: patient and family (patient's partner) Mode of arrival: ambulatory Limitations: no limitations History of Present Illness ED Provider: Nancy Thompson PA-C HPI Narrative: Patient is a 78 year old assigned female at with a history of atrophic vaginitis presenting to the emergency department today with a left great toe injury. Patient states that she stubbed her toe on her carpet and now has bleeding. Patient denies any head strike, loss of consciousness, dizziness, lightheadedness, abdominal pain, nausea, vomiting, fever, chills, blurry vision, double vision, loss of vision, chest pain, difficulty breathing, shortness of breath, back pain, night sweats, pain with urination, increased urinary frequency, increased urinary urgency, blood in her urine or stool, syncope or a near syncopal episode, bowel incontinence, bladder incontinence, or any other complaints at this time. MD complaint: other (left great toe injury) Onset (ago): hour(s) Type of Injury: blunt Place: home Severity: mild Severity scale (1-10): 4 Relieving factors: nothing Exacerbating factors: nothing Other symptoms: none Related Data Home Medications ?Medication ?Instructions ?Recorded ?Confirmed levothyroxine 112 mcg tablet 112 mcg PO DAILY 08/28/20 08/04/23 atorvastatin 10 mg tablet 1 tab PO DAILY@1700 04/05/21 08/04/23 metformin 500 mg tablet,extended 1 tab PO DAILY@1700 04/06/21 08/04/23 release 24 hr cholecalciferol (vitamin D3) 50 50 mcg PO DAILY 07/19/22 08/04/23 mcg (2,000 unit) tablet (Vitamin D3) lisinopril 10 mg tablet 10 mg PO DAILY 07/19/22 08/04/23 Previous Rx's ?Medication ?Instructions ?Recorded furosemide 40 mg tablet 40 mg PO DAILY #30 tabs 12/16/21 pyridoxine (vitamin B6) 50 mg 100 mg (2 x 50 mg) PO DAILY 90 06/21/23 tablet days #180 tabs miconazole nitrate 200 mg vaginal 200 mg vaginal BEDTIME 3 days #3 ea 06/25/23 suppository glycerin-mineral oil-polycarbophil See Rx Instructions vaginal 06/27/23 vaginal gel (Replens External .COMPLEX #8 applicators Comfort vaginal gel) cefdinir 300 mg capsule 300 mg PO BID 7 days #14 caps 07/03/23 estradiol 0.01% (0.1 mg/gram) 0.5 appful vaginal DAILY 1 week 07/06/23 vaginal cream (Estrace) #42.5 grams cefdinir 300 mg capsule 300 mg PO BID 7 days #14 caps 07/22/23 cephalexin 500 mg capsule 500 mg PO Q6H 7 days #28 caps 08/13/23 Allergies Allergy/AdvReac Type Severity Reaction Status Date / Time chlorpheniramine Allergy Severe HALLUCINATI Verified 08/13/23 17:36 [From TUSSIONEX] ONS escitalopram [ESCITALOPRAM] Allergy Severe DISSOCIATIVE Verified 08/13/23 17:36 REACTION fluoxetine [FLUOXETINE] Allergy Severe DISSOCIATIVE Verified 08/13/23 17:36 REACTION hydrocodone [From TUSSIONEX] Allergy Severe HALLUCINATI Verified 08/13/23 17:36 ONS ibuprofen [IBUPROFEN] Allergy Severe THROAT Verified 08/13/23 17:36 SWELLING Sulfa (Sulfonamide Allergy Severe DYSPNEA Verified 08/13/23 17:36 Antibiotics) [SULFA (SULFONAMIDE ANTIBIOTICS)] clarithromycin [From BIAXIN] Allergy Intermediate ABD.PAIN Verified 08/13/23 17:36 duloxetine [DULOXETINE] Allergy Intermediate FACIAL Verified 08/13/23 17:36 NUMBNESS erythromycin base Allergy Intermediate RASH Verified 08/13/23 17:36 [ERYTHROMYCIN BASE] Penicillins [PENICILLINS] Allergy Intermediate RASH Verified 08/13/23 17:36 tetracycline [TETRACYCLINE] Allergy Intermediate DIARRHEA Verified 08/13/23 17:36 ciprofloxacin [From CIPRO] Allergy Unknown ANAPHYLAXIS Verified 08/13/23 17:36 codeine [CODEINE] Allergy Unknown TINNITIS Verified 08/13/23 17:36 guaifenesin Allergy Unknown Unknown Verified 08/13/23 17:36 levofloxacin [From Levaquin] Allergy Unknown Unknown Verified 08/13/23 17:36 pregabalin Allergy Unknown Unknown Verified 08/13/23 17:36 Review of Systems Constitutional: Constitutional: Reports no additional constitutional complaints, Denies chills, Denies fever(s) and Denies night sweats Eyes: Eyes: Reports no additional eye complaints, Denies blurry vision, Denies change in vision, Denies diplopia, Denies eye discharge, Denies loss of vision and Denies eye pain ENT: Denies dizziness Cardiovascular: Cardiovascular: Reports no additional cardiovascular complaints, Denies chest pain, Denies lightheadedness, Denies Loss of Consciousness and Denies dyspnea Respiratory: Respiratory: Reports no additional respiratory complaints and Denies dyspnea Gastrointestinal: Gastrointestinal: Reports no additional gastrointestinal complaints, Denies abdominal pain, Denies melena, Denies hematochezia, Denies change in bowel habits and Denies change in stool character Genitourinary: Genitourinary: Denies hematuria, Denies urinary frequency, Samuel es dysuria, Denies urinary incontinence, Denies urinary hesitancy and Denies urinary urgency Musculoskeletal: Musculoskeletal: Reports no additional musculoskeletal complaints, Denies numbness and Denies tingling Comments: left great toe laceration Neurologic: Denies dizziness, Denies loss of vision, Denies numbness and Denies tingling Psychiatric: Psychiatric: Reports no additional psychiatric complaints Endocrine: Endocrine: Reports no additional endocrine complaints Hematologic/Lymphatic: Hematologic/Lymphatic: Reports no additional hematologic/lymphatic complaints Allergic/Immunologic: Allergic/Immunologic: Reports no additional hortencia rgic/immunologic complaints PMFSH Past Medical History Attestation statement: The following information was validated with the patient. (all information validated with the patient's partner) Source: old records reviewed, obtained from family (patient's partner provided additional history and confirmed the history provided by the patient.) and nursing notes reviewed Medical History Hydroureteronephrosis Wound infection Open wound of back, complicated Cellulitis Frequency of urination Vaginal burning Vaginal itching PMB (postmenopausal bleeding) Cirrhosis of liver Does mobilize using walker PONV (postoperative nausea and vomiting) Left foot drop Fatty liver Fibromyalgia Neuropathy RBBB Cholelithiasis Staghorn calculus Renal calculus, bilateral Renal calyceal dilation determined by ultrasound UTI (urinary tract infection) Diabetes mellitus, type II Ganglion cyst Plantar fasciitis Anxiety OA (osteoarthritis) Obstructive airway disease Hypercholesterolemia Low back pain Sciatica Hypothyroidism HTN (hypertension) Primary osteoarthritis of right knee Retained ureteral stent Renal stones Staghorn calculus Perirectal abscess Surgical History Status post cystoscopy with ureteral stent placement History of lumbar discectomy History of lumpectomy of both breasts History of cystoscopy History of lithotripsy Hx of colonoscopy History of surgery Family History Family History Father Alcohol dependence Mother CHF (congestive heart failure) Cancer of breast Mother No problems noted. Other Alcoholic cirrhosis Social History Social History Household Members: None Housing: House Do you presently have visiting nurse or other home services: No Alcohol intake: never Comment: given pyridium Patient Tobacco Use Status: Former Tobacco user Tobacco use type: Cigarette Years Smoked: 27 Second Hand Smoke Exposure: No Advance Directives: Yes Advance Directives on File: Yes Advance Directives Date on File: 04/06/21 Do you have a plan to hurt others: No Plan service: No Current occupational status: disabled Physical Exam Vital Signs: Vital Signs: Last Vital Signs Temp 98.1 F 08/13/23 23:04 Pulse 95 08/13/23 23:04 Resp 20 08/13/23 23:04 BP 132/62 08/13/23 23:04 Pulse Ox 97 08/13/23 23:04 O2 Del Method Room Air 08/13/23 23:04 BMI result Body Mass Index 34.8 Const: General: cooperative, no acute distress, alert and awake Nutritional Appearance: well nourished Orientation/consciousness: patient oriented x3 Limitations: no limitations HEENT: Head: Yes normal to inspection and Yes atraumatic Ears: hearing grossly normal bilaterally and external ears normal General nose exam: Normal external nose present, no nasal discharge noted and no epistaxis Face and sinus: Yes normal facial exam, No abrasion and No laceration Mouth: Normal oral and palatal mucosa present, no drooling and no muffled voice Eyes: General: appearance normal, both eyes and all related structures Periorbital: periorbital findings normal Eyelids: Yes eyelids normal Conjunctivae: conjunctivae normal Pupils: Equal, round and reactive pupils present EOM: EOMs intact bilaterally Neck: Neck: Yes normal visual inspection, Yes full ROM and Yes no lymphadenopathy Chest: Chest palpation & inspection: normal inspection of the chest Resp: Effort & Inspection: normal respiratory effort and able to speak in complete sentences GI: Inspection: Yes normal to inspection Neuro: General: patient oriented x3 and moves all extremities Cranial nerves: Yes Equal, round and reactive pupils present Cognition (Neuro): normal cognition Extrem: Other: 5cm laceration across the dorsal aspect of the left great toe - no active bleeding General: Yes full ROM and Yes capillary refill normal Psych: Appearance: grossly normal Mental Status: mental status grossly normal Affect: normal affect Attitude: cooperative Thought process: Normal thought process present Thought content: Normal thought content present Insight: Good insight present (Psych) Course Course Course Narrative: This is a Rapid Medical Examination (RME) performed by Fadi Roberson PA-C in triage. Full HPI, ROS, assessment and treatment plan per primary provider in the Main ED. 78 yo female here for eval of left great toe injury occurring 45 min [employer]. reports stubbing her toe on a rug with immediate pain to her left great toe. on exam there's noted bleeding w/ lac just proximal to nail bed. ttp.wound dressed. Plan: xrs, lac repair Medications Administered Discontinued Medications Generic Name Dose Route Start Last Admin Trade Name Freq PRN Reason Stop Dose Admin Cephalexin HCl 500 mg 08/13/23 23:19 08/13/23 23:58 Cephalexin 500 Mg Capsule PO 08/13/23 23:20 500 mg ONCE ONE Administration Lidocaine HCl 10 ml 08/13/23 21:16 08/13/23 22:53 Lidocaine Hcl 1 % Mpf 5 Ml Vial SUBCUT 08/13/23 21:17 10 ml ONCE ONE Administration Medical Decision Making Medical Decision Making [facility] Narrative: Patient is a 78 year old assigned female at with a history of atrophic vaginitis presenting to the emergency department today with a left great toe injury. Patient's physical exam was as noted in the physical exam portion of this note. Patient's left foot x-ray showed a chronic left great toe fracture however, it also showed a new horizontal component to the left great toe which may be a new fractures. I consulted with the orthopedic team who agreed with the plan of repairing the laceration, covering with cephalexin, placing the patient in a post op shoe, and discharging her with outpatient follow up. I explained my physical exam findings as well as all test results to the patient and the patient's partner. I answered all questions asked by the patient and the patient's partner. Patient's laceration was repaired, without incident. Patient's PMS was intact prior to and after laceration repair. Patient's left foot was placed in a post op shoe, without incident. Patient's PMS was intact prior to and after shoe placement. I stressed the importance of the patient taking her medication as directed (either prescribed or as the over the counter packaging recommends). I stressed the importance of the patient following up with her primary care provider and an orthopedic provider. I stressed the importance of the patient returning to the emergency department immediately if her symptoms were to worsen or if she were to develop any dizziness, shortness of breath, difficulty breathing, chest pain, blurry vision, loss of vision, nausea, vomiting, abdominal pain, fever, chills, back pain, or any other complaints. Patient and the patient's partner verbalized agreement and und erstanding with this treatment plan and discharge. Differential Diagnosis Differential Diagnoses: The differential diagnosis associated with the presentation includes Toe laceration Open fracture Toe fracture Admission/Observation Consideration of admission/observation: Escalation of care including admission/observation considered Patient would have been admitted to the hospital had her work up had any findings where hospital admission was appropriate and her clinical presentation warranted hospital admission. Consult Healthcare Provider Management of the patient was discussed with: Data Network Architect (spoke to the orthopedic team as noted in the MDM Rationale portion of this note.) Independent Interpretation I performed an independent interpretation of an: Plain X-Ray Interpretation: My interpretation is in agreement with the radiologist's impression of this imaging study. EXAMINATION: XR TOES, LEFT CLINICAL INFORMATION: Great toe injury COMPARISON: Left first toe 07/14/2022 TECHNIQUE: 3 views of the left toes were obtained. FINDINGS: Again seen is a fracture involving the distal phalanx of the first great toe. On the study from just over one year ago, a similar fracture but this appears more complex on the current study with an additional transverse fracture closer to the base of the phalanx. There is no significant evidence of healing. Findings may indicate associated osteomyelitis. XR/XR toe LT min 2V IMPRESSION: Chronic fracture distal phalanx of the first great toe with new additional horizontal component without evidence of significant interval healing over the past year. Findings may indicate associated osteomyelitis. MRI may be helpful for further evaluation. Dictated By: Hansel Rodriguez MD Signed By: Electronically signed by Hansel Rodriguez MD 08/13/232030 Radiology Impression Discussion of test interpretation with radiology: I have reviewed the radiologist's reading. Independent Historian Clinical information obtained from an independent historian. History obtained from or confirmed by: Other (patient's partner provided additional history and confirmed the history provided by the patient.) Prescription Management I considered prescription management with: Antibiotic (given that patient has an open fracture - she was prescribed an antibiotic.) Procedures Laceration left great toe: Site: other (great toe) Side (If applicable): left Size (cm): 5 Description: linear Local Anesthetic: lidocaine 1% Amount of anesthesia used (mL): 10 Pre-repair: wound explored and irrigated extensively Skin layer closed with: other (prolene) Size (cm): 5-0 Number of sutures: 5 Technique: simple, interrupted Orthopedic Splinting/Casting left great toe fracture: Side: left Lower Extremity Injury Location: toe Lower Extremity Immobilizer: post-op shoe Discharge Plan Discharge Clinical Impression: Fracture of toe, Laceration of toe Patient Disposition: Home, Self-Care Instructions: Laceration (DC), Toe Fracture (ED), Post Surgical Shoe (ED) Additional Instructions: Do NOT soak the affected area. Perform daiyl wound checks and dressing changes. Take your antibiotic as prescribed. Follow up with your primary care provider and an orthopedic provider. Return to the emergency department immediately if your symptoms worsen or if you develop any dizziness, shortness of breath, difficulty breathing, chest pain, blurry vision, loss of vision, nausea, vomiting, abdominal pain, fever, chills, back pain, or any other complaints. Prescriptions: New cephalexin 500 mg capsule 500 mg PO Q6H 7 Days Qty: 28 0RF No Action pyridoxine (vitamin B6) 50 mg tablet 100 mg PO DAILY 90 Days Qty: 180 1RF Replens External Comfort Gel See Rx Instructions vaginal .COMPLEX Qty: 8 0RF Rx Instructions: 1 prefilled applicator vaginally; every 3 days atorvastatin 10 mg tablet 1 tab PO DAILY@1700 metformin 500 mg tablet extended release 24 hr 1 tab PO DAILY@1700 furosemide 40 mg tablet 40 mg PO DAILY Qty: 30 0RF cefdinir 300 mg capsule 300 mg PO BID 7 Days Qty: 14 0RF cefdinir 300 mg capsule 300 mg PO BID 7 Days Qty: 14 0RF miconazole nitrate 200 mg suppository 200 mg vaginal BEDTIME 3 Days Qty: 3 0RF levothyroxine 112 mcg tablet 112 mcg PO DAILY lisinopril 10 mg tablet 10 mg PO DAILY cholecalciferol (vitamin D3) [Vitamin D3] 50 mcg (2,000 unit) tablet 50 mcg PO DAILY estradiol [Estrace] 0.01 % (0.1 mg/gram) cream 0.5 appful vaginal DAILY 7 Days Qty: 42.5 0RF Rx Instructions: Then reduced to twice weekly for 1 week. Referrals: [facility] [Provider Group] (Call to establish and follow up with the orthopedic team. ) Preston Wang DO [Primary Care Provider] - Print Language: Wolof
[2023-08-13] MEDS: Lidocaine HCl 1 % MPF 5 ML VIAL 10 ML SUBCUT (22:53)
[2023-08-13 23:04] VITALS: BP 132/62; PULSE 95; RESP 20; TEMP 36.7; O2SAT 97
[2023-08-13] MEDS: cephALEXin 500 MG CAPSULE PO (23:58)
== END 2023-08-13 23:45 | disposition home or self-care (01) ==
PROVIDERS: Emergency Provider Emergency Medicine Emergency Medical Services; PCP Internal Medicine
DX: S91.112A Laceration without foreign body of left great toe without damage to nail, initial encounter (principal); S92.422A Displaced fracture of distal phalanx of left great toe, initial encounter for closed fracture; W22.8XXA Striking against or struck by other objects, initial encounter; Y93.9 Activity, unspecified; Y92.009 Unspecified place in unspecified non-institutional (private) residence as the place of occurrence of the external cause; Y99.9 Unspecified external cause status
CPT/HCPCS: 12002; 73660; 99282; 99284

== ENCOUNTER 2023-08-16 13:11 | Outpatient (REF) | payer MEDICARE, SELFPAY ==
[2023-08-16 16:04] LABS: MANUAL DIFF FLAG NO
[2023-08-16 16:12] LABS: Basophils Absolute Auto 0.1 X10*3/uL (0.0-0.2); Basophils Percent Auto 0.6 % (0-2); Eosinophils Absolute Auto 0.1 X10*3/uL (0.0-0.4); Eosinophils Percent Auto 1.6 % (0-4); Hematocrit 37.5 % (37.0-47.0); Hemoglobin 12.5 g/dl (12.0-16.0); Imm Gran Abs Auto 0.16 X10*3/uL (0.00-0.03); Imm Gran Pct Auto 1.8 % (0.0-0.4); Lymphocytes Absolute Auto 2.2 X10*3/uL (1.2-4.9); Lymphocytes Percent Auto 23.9 % (20-40); Mean Corpuscular HGB Conc 33.3 g/dl (31.0-35.0); Mean Corpuscular Hemoglobin 30.3 pg (27.0-33.0); Mean Platelet Volume 10.2 fL (9.4-12.3); Monocytes Absolute Auto 0.8 X10*3/uL (0.1-1.2); Monocytes Percent Auto 8.6 % (2-11); Neutrophils Absolute Auto 5.7 x10*3/uL (2.0-8.3); Neutrophils Percent Auto 63.5 % (45-73); Platelet Count 230 X10*3/uL (160-400); Red Blood Count 4.12 X10*6/uL (4.20-5.50); Red Cell Distribution Width 15.3 % (11.0-16.0)
[2023-08-16 16:26] LABS: Anion Gap 12 (12-20); Blood Urea Nitrogen 21 mg/dL (9-16); C Reactive Protein 1.64 mg/dL (< or = 0.50); Calcium 9.2 mg/dL (8.4-10.2); Carbon Dioxide 23 mmol/L (22-29); Chloride 106 mmol/L (96-108); Estimated Glomerular Filt Rate 38; Glucose Random 153 mg/dL (60-115); Potassium 3.8 mmol/L (3.3-5.1); Sodium 137 mmol/L (135-145)
[2023-08-16 17:53] LABS: Erythrocyte Sedimentation Rate 51 MM/HR (0-20)
== END 2023-08-16 13:12 | disposition home or self-care (01) ==
LOC: HO.HMGCLDS 13:11
PROVIDERS: PCP Internal Medicine; Visit Provider Internal Medicine
DX: M86.9 Osteomyelitis, unspecified (principal)
CPT/HCPCS: 36415; 80048; 85025; 85652; 86140

== ENCOUNTER 2023-08-19 09:55 | Outpatient (REF) | payer MEDICARE, SELFPAY ==
--- NOTE | ~2023-08-19 | MR_ITS ---
EXAMINATION: MR FOOT WITHOUT CONTRAST, LEFT CLINICAL INFORMATION: Left great toe injury with persistent pain. Instability. Pain with ambulation. Numbness. COMPARISON: Left toe radiographs dated 08/13/2023. TECHNIQUE: Multisequence MR imaging of the right foot was obtained without contrast on a high-field strength scanner. Patient declined contrast administration. FINDINGS: Evaluation limited secondary to patient motion. BONE: Bone detail somewhat limited on MR examination and due to patient motion. There appears to be a chronic, nonfused fracture proximally through the first distal phalanx with an immediately adjacent and slightly more distal acute, transverse fracture through the first distal phalanx. Associated marrow edema. Findings correlate to the most recent radiographs. No additional marrow edema or evidence of acute osseous injury. No metatarsal stress reaction or fracture. No concerning lytic or blastic osseous. MUSCLES/TENDONS: Mild edema and atrophy within the intrinsic musculature of the foot. No transverse tendon tear or tendon retraction. LIGAMENTS: Intact Lisfranc ligament. SOFT TISSUES: Dorsal subcutaneous edema. No soft tissue mass or organized fluid collection. MR/MR foot LT wo con IMPRESSION: 1. Chronic, nonfused fracture through the proximal aspect of the first distal phalanx with an immediately adjacent and slightly more distal acute, transverse fracture through the first distal phalanx. Associated marrow edema. Evaluation is somewhat limited secondary to patient motion and CT could help further define bone detail if clinically indicated. 2. Mild edema and atrophy within the intrinsic musculature of the foot. 3. Dorsal subcutaneous edema.
== END 2023-08-19 09:56 | disposition home or self-care (01) ==
LOC: HO.MRI 09:55
PROVIDERS: PCP Internal Medicine; Visit Provider Internal Medicine
DX: M86.9 Osteomyelitis, unspecified (principal)
CPT/HCPCS: 73718

== ENCOUNTER 2023-09-05 13:46 | Outpatient (AMB) | payer MEDICARE, SELFPAY ==
[2023-09-05 13:48] VITALS: BMI 34.8
--- NOTE | 2023-09-05 13:48 | A.OFFVIS_ITS ---
Vital Signs 09/05/23 13:48 Height 5 ft 4 in Weight 203 lb BMI 34.8 Intake Visit Reasons: FC-LT great toe, DOI 08/13/23 Intake Note: Xi a 78 year old female who presents today for a follow up of left great toe from DOI 07/11/22. Patient reports she continues to have constant pain at the top of her foot. States last night she stubbed her small toe on her right foot that is causing pain and bruising. Allergies chlorpheniramine [From TUSSIONEX] Allergy (Severe, Verified 09/05/23 14:03) HALLUCINATIONS escitalopram [ESCITALOPRAM] Allergy (Severe, Verified 09/05/23 14:03) DISSOCIATIVE REACTION fluoxetine [FLUOXETINE] Allergy (Severe, Verified 09/05/23 14:03) DISSOCIATIVE REACTION hydrocodone [From TUSSIONEX] Allergy (Severe, Verified 09/05/23 14:03) HALLUCINATIONS ibuprofen [IBUPROFEN] Allergy (Severe, Verified 09/05/23 14:03) THROAT SWELLING Sulfa (Sulfonamide Antibiotics) [SULFA (SULFONAMIDE ANTIBIOTICS)] Allergy (S evere, Verified 09/05/23 14:03) DYSPNEA clarithromycin [From BIAXIN] Allergy (Intermediate, Verified 09/05/23 14:03) ABD.PAIN duloxetine [DULOXETINE] Allergy (Intermediate, Verified 09/05/23 14:03) FACIAL NUMBNESS erythromycin base [ERYTHROMYCIN BASE] Allergy (Intermediate, Verified 09/05/23 14:03) RASH Penicillins [PENICILLINS] Allergy (Intermediate, Verified 09/05/23 14:03) RASH tetracycline [TETRACYCLINE] Allergy (Intermediate, Verified 09/05/23 14:03) DIARRHEA ciprofloxacin [From CIPRO] Allergy (Unknown, Verified 09/05/23 14:03) ANAPHYLAXIS codeine [CODEINE] Allergy (Unknown, Verified 09/05/23 14:03) TINNITIS guaifenesin Allergy (Unknown, Verified 09/05/23 14:03) Unknown levofloxacin [From Levaquin] Allergy (Unknown, Verified 09/05/23 14:03) Unknown pregabalin Allergy (Unknown, Verified 09/05/23 14:03) Unknown Medication List - Last Reconciled 09/05/23 by Samreen Phillips PA-C atorvastatin 1 tab PO DAILY@1700 cefdinir 300 mg PO BID 7 days cefdinir 300 mg PO BID 7 days cephalexin 500 mg PO Q6H 7 days cholecalciferol (vitamin D3) (Vitamin D3) 50 mcg PO DAILY estradiol 0.01%(0.1mg/gram) (Estrace) 0.5 appful vaginal DAILY 1 week furosemide 40 mg PO DAILY glycerin-min oil-polycarbophil (Replens External Comfort vaginal gel) 1 prefilled applicator vaginally; every 3 days levothyroxine 112 mcg PO DAILY lisinopril 10 mg PO DAILY metformin ER 1 tab PO DAILY@1700 miconazole nitrate 200 mg vaginal BEDTIME 3 days pyridoxine (vitamin B6) 100 mg (2 x 50 mg) PO DAILY 90 days HPI HPI FC-LT great toe, DOI 08/13/23: Details: Xi is a 78-year-old female who presents today for a left great toe, DOI 08/13/2023. She claims that she still has been experiencing constant pain at the top of her foot. She reports that she stubbed her right small toe last night, which is painful and bruised. [facility] Medical History Hydroureteronephrosis Wound infection Open wound of back, complicated Cellulitis Frequency of urination Vaginal burning Vaginal itching PMB (postmenopausal bleeding) Cirrhosis of liver Does mobilize using walker PONV (postoperative nausea and vomiting) Left foot drop Fatty liver Fibromyalgia Neuropathy RBBB Cholelithiasis Staghorn calculus Renal calculus, bilateral Renal calyceal dilation determined by ultrasound UTI (urinary tract infection) Diabetes mellitus, type II Ganglion cyst Plantar fasciitis Anxiety OA (osteoarthritis) Obstructive airway disease Hypercholesterolemia Low back pain Sciatica Hypothyroidism HTN (hypertension) Primary osteoarthritis of right knee Retained ureteral stent Renal stones Staghorn calculus Perirectal abscess Surgical History Status post cystoscopy with ureteral stent placement History of lumbar discectomy History of lumpectomy of both breasts History of cystoscopy History of lithotripsy Hx of colonoscopy History of surgery Family History Father Alcohol dependence Mother CHF (congestive heart failure) Cancer of breast Mother No problems noted. Other Alcoholic cirrhosis Social History Household Members: None Housing: House Do you presently have visiting nurse or other home services: No Alcohol intake: never Comment: given pyridium Patient Tobacco Use Status: Former Tobacco user Tobacco use type: Cigarette Years Smoked: 27 Second Hand Smoke Exposure: No Advance Directives Date on File: 04/06/21 service: No Current occupational status: disabled Review of Systems Const All systems reviewed & are unremarkable except as noted in HPI and below Physical Exam Vital Signs: BMI result Body Mass Index 34.8 Const General: cooperative, healthy appearing, comfortable and no acute distress Orientation/consciousness: patient oriented x3 Neck Neck: Yes normal visual inspection and Yes no JVD Chest Chest palpation & inspection: normal inspection of the chest Resp Effort & Inspection: normal respiratory effort Auscultation: clear to auscultation bilaterally, crackles (no), rales (no), rhonchi (no) and wheezes (no) Cardio Jugular venous distension: no JVD Rate: regular rate Rhythm: regular rhythm Heart sounds: S1 normal heart sound present, S2 normal heart sound present, Murmur heart sound present (no) and Rub heart sound present (no) Neuro General: patient oriented x3 Extrem Other: Left toe: Normal to inspection. She does have an abrasion at the base of the nail with intact sutures. No drainage. NVI. General: Yes normal to inspection, Yes no pedal edema and Yes no calf tenderness Psych Appearance: grossly normal Mental Status: mental status grossly normal Speech and movement: Normal speech and movement present Results Reviewed Results Reviewed: XR toe LT min 2V IMPRESSION: Chronic fracture distal phalanx of the first great toe with new additional horizontal component without evidence of significant interval healing over the past year. Findings may indicate associated osteomyelitis. MRI may be helpful for further evaluation. MR foot LT wo con IMPRESSION: 1. Chronic, nonfused fracture through the proximal aspect of the first distal phalanx with an immediately adjacent and slightly more distal acute, transverse fracture through the first distal phalanx. Associated marrow edema. Evaluation is somewhat limited secondary to patient motion and CT could help further define bone detail if clinically indicated. 2. Mild edema and atrophy within the intrinsic musculature of the foot. 3. Dorsal subcutaneous edema. Assessment & Plan Assessment & Plan (1) Fracture of great toe, left, closed: Code(s): S92.402A - Displaced unspecified fracture of left great toe, initial encounter for closed fracture Category: Medical Plan She will continue to use a postop shoe and transition to regular street shoe as her pain as symptoms allow. She is currently seeing the wound care for dressing changes of her great toe, and they will remove the remaining sutures. Her next appointment is on September 13. She will increase activities as tolerated it and see me back as needed. Patient Instructions: Scribed for Samreen Phillips PA-C, by Margot Pop senior medical billing specialist, on 09/05/2023 at 1:45 PM EST. I, Samreen Phillips PA-C, have personally reviewed and agree with the information entered by the scribe. Coding Level of Care Code Est Pt Level 3 (46851) Diagnoses Fracture of great toe, left, closed S92.402A
== END 2023-09-05 14:31 | disposition home or self-care (01) ==
PROVIDERS: PCP Internal Medicine; Visit Provider Physician Assistant
DX: S92.402A Displaced unspecified fracture of left great toe, initial encounter for closed fracture (principal)
CPT/HCPCS: 99213

== ENCOUNTER → 2023-09-05 13:46 | Outpatient (BNVA) | payer MEDICARE, SELFPAY | PROVIDERS: PCP Internal Medicine; Visit Provider Physician Assistant | DX: S92.402D Displaced unspecified fracture of left great toe, subsequent encounter for fracture with routine healing (principal) | CPT/HCPCS: 99212 ==

== ENCOUNTER 2023-10-03 14:14 | Outpatient (AMB) | payer MEDICARE, SELFPAY ==
--- NOTE | 2023-10-03 14:39 | MHC.OFFWIV ---
Intake Vital Signs 10/03/23 14:44 BP 102/58 L Blood Pressure Location Lt brachial Position Sitting Pulse 91 Pulse Source Pulse Oximeter Pulse Oximetry (%) 98 Oxygen Delivery Method Room Air Intake Visit Reasons: EP- Stomaches, urge to vomit, abdomen pain Intake Note: Patient here for stomach pain that has been present for about 4 days, vomiting,diarrhea and nausea. Patient Tobacco Use Status: Former Tobacco user Allergies chlorpheniramine [From TUSSIONEX] Allergy (Severe, Verified 10/03/23 14:42) HALLUCINATIONS escitalopram [ESCITALOPRAM] Allergy (Severe, Verified 10/03/23 14:42) DISSOCIATIVE REACTION fluoxetine [FLUOXETINE] Allergy (Severe, Verified 10/03/23 14:42) DISSOCIATIVE REACTION hydrocodone [From TUSSIONEX] Allergy (Severe, Verified 10/03/23 14:42) HALLUCINATIONS ibuprofen [IBUPROFEN] Allergy (Severe, Verified 10/03/23 14:42) THROAT SWELLING Sulfa (Sulfonamide Antibiotics) [SULFA (SULFONAMIDE ANTIBIOTICS)] Allergy (Severe, Verified 10/03/23 14:42) DYSPNEA clarithromycin [From BIAXIN] Allergy (Intermediate, Verified 10/03/23 14:42) ABD.PAIN duloxetine [DULOXETINE] Allergy (Intermediate, Verified 10/03/23 14:42) FACIAL NUMBNESS erythromycin base [ERYTHROMYCIN BASE] Allergy (Intermediate, Verified 10/03/23 14:42) RASH Penicillins [PENICILLINS] Allergy (Intermediate, Verified 10/03/23 14:42) RASH tetracycline [TETRACYCLINE] Allergy (Intermediate, Verified 10/03/23 14:42) DIARRHEA ciprofloxacin [From CIPRO] Allergy (Unknown, Verified 10/03/23 14:42) ANAPHYLAXIS codeine [CODEINE] Allergy (Unknown, Verified 10/03/23 14:42) TINNITIS guaifenesin Allergy (Unknown, Verified 10/03/23 14:42) Unknown levofloxacin [From Levaquin] Allergy (Unknown, Verified 10/03/23 14:42) Unknown pregabalin Allergy (Unknown, Verified 10/03/23 14:42) Unknown Do you need a note to return to daycare/school/sports/work: No HPI HPI Comments History of Present Illness Details Patient is a 78-year-old female here with her fiance complaining severe abdominal pain x 3 days. She states she had a couple episodes of nausea and vomiting yesterday but has not vomited since last night. She states she has not eaten anything today and is very nauseous right now. She states she had some diarrhea yesterday it was not bloody or black but she has not had any diarrhea today. She is also not able to eat or drink anything right now because of the pain. She describes the pain as sharp and it comes and goes, nothing seems to make it worse or better. Yesterday when she was eating, the pain was not worse after eating. She denies any fevers. She states she still has her gallbladder and her appendix and does not have a history of diverticulosis. She had great difficulty getting on/off the exam table and could not lay flat for the exam [facility] Medical History Hydroureteronephrosis Wound infection Open wound of back, complicated Cellulitis Frequency of urination Vaginal burning Vaginal itching PMB (postmenopausal bleeding) Cirrhosis of liver Does mobilize using walker PONV (postoperative nausea and vomiting) Left foot drop Fatty liver Fibromyalgia Neuropathy RBBB Cholelithiasis Staghorn calculus Renal calculus, bilateral Renal calyceal dilation determined by ultrasound UTI (urinary tract infection) Diabetes mellitus, type II Ganglion cyst Plantar fasciitis Anxiety OA (osteoarthritis) Obstructive airway disease Hypercholesterolemia Low back pain Sciatica Hypothyroidism HTN (hypertension) Primary osteoarthritis of right knee Retained ureteral stent Renal stones Staghorn calculus Perirectal abscess Surgical History Status post cystoscopy with ureteral stent placement History of lumbar discectomy History of lumpectomy of both breasts History of cystoscopy History of lithotripsy Hx of colonoscopy History of surgery Family History Father Alcohol dependence Mother CHF (congestive heart failure) Cancer of breast Mother No problems noted. Other Alcoholic cirrhosis Social History Household Members: None Housing: House Do you presently have visiting nurse or other home services: No Alcohol intake: never Comment: given pyridium Patient Tobacco Use Status: Former Tobacco user Tobacco use type: Cigarette Years Smoked: 27 Second Hand Smoke Exposure: No Advance Directives Date on File: 04/06/21 service: No Current occupational status: disabled Review of Systems Const All systems reviewed & are unremarkable except as noted in HPI and below Physical Exam Vital Signs: Last Vital Signs Pulse 91 10/03/23 14:44 BP 102/58 L 10/03/23 14:44 Pulse Ox 98 10/03/23 14:44 Oxygen Delivery Method Room Air 10/03/23 14:44 Const General: cooperative, well developed, in distress (Secondary to her abdominal pain) mild and anxious Nutritional Appearance: obese Orientation/consciousness: patient oriented x3 Limitations: no limitations HEENT Head: Yes normal to inspection Ears: hearing grossly normal bilaterally General nose exam: Normal external nose present Face and sinus: Yes normal facial exam Eyes General: appearance normal, both eyes and all related structures Neck Neck: Yes normal visual inspection and Yes full ROM Resp Effort & Inspection: normal respiratory effort and able to speak in complete sentences GI Inspection: Yes normal to inspection Palpation (GI): Soft to palpation and Tenderness to palpation present (GI) (Generalized) Skin General skin exam: no rashes or lesions noted Neuro General: patient oriented x3 Extrem General: Yes normal to inspection Assessment & Plan Assessment & Plan (1) Abdominal pain in female: Code(s): R10.9 - Unspecified abdominal pain Plan: Vital signs are stable though her blood pressure was a little bit on the low side. Physical exam was difficult due to patient not being able to tolerate me touching her abdomen. I did give her 1 dose of Zofran in the office because she was nauseous and she said that gave her great relief. I did recommend she go to the emergency department for further workup as it is difficult to understand what is causing this extreme amount of pain she is in. Plan See above Coding Level of Care Code New Pt Level 5 (93596) Diagnoses Abdominal pain in female R10.9
[2023-10-03 14:44] VITALS: BP 102/58; PULSE 91; O2SAT 98
== END 2023-10-03 14:57 | disposition home or self-care (01) ==
LOC: HO.HMGWI 14:14
PROVIDERS: PCP Internal Medicine; Visit Provider Physician Assistant
DX: R10.9 Unspecified abdominal pain (principal)
CPT/HCPCS: 99204; 99214

== ENCOUNTER 2023-10-03 15:24 | Inpatient (IN) | payer MEDICARE, SELFPAY ==
--- NOTE | ~2023-10-03 | CT_ITS ---
EXAMINATION: CT ABDOMEN AND PELVIS WITHOUT CONTRAST CLINICAL INFORMATION: Reason for Exam umbilical pain, n/v/d, +UTI/micro heme COMPARISON: 04/24/2023 TECHNIQUE: Multidetector volumetric imaging was performed from the superior aspect of the liver through the pubic symphysis. Sagittal and coronal reformatted images were obtained on the technologist's workstation. This CT examination was performed using dose optimization techniques as appropriate, variously including the following: *Automated exposure control *Adjustment of mA and/or kV according to patient size (this includes techniques or standardized protocols for targeted exams where dose is matched to indication/reason for exam; i.e. extremities or head) *Use of iterative reconstruction technique DLP: 779 mGy-cm FINDINGS: LUNG BASES: The visualized lung bases are unremarkable. LIVER, GALLBLADDER, AND BILIARY TREE: The unenhanced liver demonstrates a nodular contour suspicious for cirrhosis. There is inadequate assessment for focal lesions without intravenous contrast. No appreciable biliary ductal dilatation. Gallbladder is physiologically distended. Proximal gallstones are noted. No appreciable gallbladder wall thickening or surrounding inflammation. PANCREAS: Mildly atrophic. SPLEEN: Unremarkable. ADRENAL GLANDS: Unremarkable. KIDNEYS AND URETERS: Right ureteral stent is present extending from the mid renal calyx to the bladder. No right-sided hydronephrosis. There are numerous scattered calculi within the right renal calyces and pelvis, measuring up to approximately 11 mm in diameter. Right upper pole renal cysts; no follow-up recommended. Previously identified fluid collections inferior to the right kidney on 04/24/2023 now appear collapsed. No left-sided hydronephrosis or calculus. A few left lower pole renal calculi are present measuring up to 5 mm. BLADDER: Minimally distended and not well evaluated. GASTROINTESTINAL TRACT: There is a short segment of luminal narrowing in the distal sigmoid colon with surrounding stranding. Proximal to this, the remainder of the colon is moderately distended with gas and stool. Overall configuration is suspicious for a colonic obstruction which could be secondary to postinflammatory stricturing though a mass cannot be excluded. Trace free fluid in the lower abdomen. No free air is seen. ABDOMINAL WALL: Fat-containing umbilical hernia. LYMPH NODES: Normal. VASCULAR: Moderate atherosclerotic calcification. PELVIC VISCERA: Patient is status post hysterectomy. OSSEOUS STRUCTURES: Degenerative changes are noted in the spine. CT/CT abdomen pelvis wo IV con IMPRESSION: 1. Short segment of luminal narrowing in the distal sigmoid colon with surrounding stranding. Appearance is suspicious for a colonic obstruction which could be secondary to postinflammatory stricturing though a mass cannot be excluded. If not recently performed, further evaluation with colonoscopy is recommended. 2. Right ureteral stent in place. Numerous scattered right renal calculi. No hydronephrosis. 3. Cholelithiasis. 4. Nodular hepatic contour suspicious for cirrhosis. Electronically signed by: Avel Atwood MD 10/04/2023 01:44 AM EDT
--- NOTE | ~2023-10-03 | US_ITS ---
EXAMINATION: US RETROPERITONEAL COMPLETE (RENAL) CLINICAL INFORMATION: Acute kidney injury. COMPARISON: CT abdomen pelvis 10/03/2023. TECHNIQUE: Real-time imaging of the kidneys and bladder. FINDINGS: The right kidney measures 9.67 x 4.37 x 3.6 cm. Multiple echogenic foci consistent with renal calculi are present and correspond to findings on the comparison CT. Findings include the following: *Upper pole calculus 0.67 x 0.4 cm 0.5 cm. *Midpole calculus 1.3 cm x 0.7 x 1.17. *Lower pole calculus 1.7 cm x 1.37 x 1.4 cm. *Lower pole calculus 1.16 x 0.97 x 1.3 cm. A benign-appearing 2.4 cm rounded anechoic simple cyst requiring no additional imaging follow-up is additionally noted. No right-sided hydronephrosis visualized. No right-sided perinephric inflammatory changes or perinephric fluid collections identified. Grossly no abnormal color Doppler interrogation of the right kidney. Normal renal parenchymal echogenicity. The left kidney measures 10.6 cm x 4.9 cm x 3.4 cm. No left-sided hydronephrosis. Multiple echogenic foci are present in left kidney suspicious for calculi and correspond to findings present on the comparison CT of 10/03/2023. Findings include a midpole calculus measuring 0.7 cm x 0.3 cm x 0.5 cm. No perinephric fluid collections or left perinephric inflammatory changes identified. Grossly normal color Doppler interrogation of the left kidney. Normal renal echogenicity. US/US renal BI IMPRESSION: *Bilateral multifocal renal calculi. *No hydronephrosis. Electronically signed by: Napoleon Briggs MD 10/05/2023 05:40 AM EDT
[2023-10-03 15:29] VITALS: BP 99/47; PULSE 81; RESP 18; O2SAT 98; BMI 33.8
--- NOTE | 2023-10-03 15:38 | ED_ITS ---
HPI - General Adult General Chief complaint: Nausea/Vomiting/Diarrhea Stated complaint: abd pain vomiting Time Seen by Provider: 10/03/23 22:33 Source: patient Mode of arrival: ambulatory Limitations: no limitations History of Present Illness HPI narrative: Patient is a 78-year-old female who presents emergency department for evaluation. She reports that yesterday she began developing nausea with poor appetite and a few episodes of bilious vomiting and associated pain to the periumbilical region. She had an episode of diarrhea yesterday described as soft stools. She denies hematochezia, melena, dysuria, urinary frequency, hematuria. Denies back pain. She denies any known sick contacts. Related Data Home Medications ?Medication ?Instructions ?Recorded ?Confirmed levothyroxine 112 mcg tablet 112 mcg PO DAILY 08/28/20 10/04/23 atorvastatin 10 mg tablet 1 tab PO DAILY@1700 04/05/21 10/04/23 metformin 500 mg tablet,extended 1 tab PO DAILY@1700 04/06/21 10/04/23 release 24 hr cholecalciferol (vitamin D3) 50 50 mcg PO DAILY 07/19/22 10/04/23 mcg (2,000 unit) tablet (Vitamin D3) lisinopril 10 mg tablet 10 mg PO DAILY 07/19/22 10/04/23 acetaminophen 500 mg tablet 1,000 mg PO BID PRN Pain 10/04/23 10/04/23 ascorbic acid (vitamin C) 500 mg 500 mg PO DAILY 10/04/23 10/04/23 tablet Previous Rx's ?Medication ?Instructions ?Recorded furosemide 40 mg tablet 40 mg PO DAILY #30 tabs 12/16/21 pyridoxine (vitamin B6) 50 mg 100 mg (2 x 50 mg) PO DAILY 90 06/21/23 tablet days #180 tabs Allergies Allergy/AdvReac Type Severity Reaction Status Date / Time chlorpheniramine Allergy Severe HALLUCINATI Verified 10/03/23 15:30 [From TUSSIONEX] ONS escitalopram [ESCITALOPRAM] Allergy Severe DISSOCIATIVE Verified 10/03/23 15:30 REACTION fluoxetine [FLUOXETINE] Allergy Severe DISSOCIATIVE Verified 10/03/23 15:30 REACTION hydrocodone [From TUSSIONEX] Allergy Severe HALLUCINATI Verified 10/03/23 15:30 ONS ibuprofen [IBUPROFEN] Allergy Severe THROAT Verified 10/03/23 15:30 SWELLING Sulfa (Sulfonamide Allergy Severe DYSPNEA Verified 10/03/23 15:30 Antibiotics) [SULFA (SULFONAMIDE ANTIBIOTICS)] clarithromycin [From BIAXIN] Allergy Intermediate ABD.PAIN Verified 10/03/23 15:30 duloxetine [DULOXETINE] Allergy Intermediate FACIAL Verified 10/03/23 15:30 NUMBNESS erythromycin base Allergy Intermediate RASH Verified 10/03/23 15:30 [ERYTHROMYCIN BASE] Penicillins [PENICILLINS] Allergy Intermediate RASH Verified 10/03/23 15:30 tetracycline [TETRACYCLINE] Allergy Intermediate DIARRHEA Verified 10/03/23 15:30 ciprofloxacin [From CIPRO] Allergy Unknown ANAPHYLAXIS Verified 10/03/23 15:30 codeine [CODEINE] Allergy Unknown TINNITIS Verified 10/03/23 15:30 guaifenesin Allergy Unknown Unknown Verified 10/03/23 15:30 levofloxacin [From Levaquin] Allergy Unknown Unknown Verified 10/03/23 15:30 pregabalin Allergy Unknown Unknown Verified 10/03/23 15:30 Review of Systems 2 Review of Systems: Yes all other systems are reviewed and are negative PMFSH Past Medical History Attestation statement: The following information was validated with the patient. Source: old records reviewed Medical History Hydroureteronephrosis Wound infection Open wound of back, complicated Cellulitis Frequency of urination Vaginal burning Vaginal itching PMB (postmenopausal bleeding) Cirrhosis of liver Does mobilize using walker PONV (postoperative nausea and vomiting) Left foot drop Fatty liver Fibromyalgia Neuropathy RBBB Cholelithiasis Staghorn calculus Renal calculus, bilateral Renal calyceal dilation determined by ultrasound UTI (urinary tract infection) Diabetes mellitus, type II Ganglion cyst Plantar fasciitis Anxiety OA (osteoarthritis) Obstructive airway disease Hypercholesterolemia Low back pain Sciatica Hypothyroidism HTN (hypertension) Primary osteoarthritis of right knee Retained ureteral stent Renal stones Staghorn calculus Perirectal abscess Surgical History Status post cystoscopy with ureteral stent placement History of lumbar discectomy History of lumpectomy of both breasts History of cystoscopy History of lithotripsy Hx of colonoscopy History of surgery Family History Family History Father Alcohol dependence Mother CHF (congestive heart failure) Cancer of breast Mother No problems noted. Other Alcoholic cirrhosis Social History Social History Household Members: Spouse and Significant Other Housing: House Do you presently have visiting nurse or other home services: Yes Alcohol intake: never Comment: given pyridium Patient Tobacco Use Status: Former Tobacco user Tobacco use type: Cigarette Years Smoked: 27 Second Hand Smoke Exposure: No Advance Directives Date on File: 04/06/21 service: No Current occupational status: disabled Physical Exam ED Vital Signs: Vital Signs - 24 hr 10/03/23 22:38 10/04/23 01:47 Temperature 98.1 F 98.0 F Pulse Rate 82 83 Respiratory Rate 14 20 Blood Pressure 112/34 L 105/51 L Pulse Oximetry 97 98 Oxygen Delivery Method Room Air Room Air BMI result Body Mass Index 33.8 Appearance: Alert.?Oriented to person, place and time. No acute distress.?Normal affect. Eyes: Pupils equal, round and reactive to light.? ENT: Pharynx normal.?? Neck: Normal inspection.? Neck supple.?? CVS: Heart sounds normal. Normal heart rate and rhythm.? Pulses normal.?? Respiratory: No respiratory distress.? Lung sounds clear to auscultation bilaterally?? Abdomen: Soft round distended with tenderness upon palpation. No CVA tenderness.. Hypoactive bowel sounds. No pulsatile mass.?? Skin: Skin warm and dry.? Normal skin color.? Extremities: No lower extremity edema.? Neuro: Moves all extremities spontaneously. Sensation intact bilaterally. Ambulates with normal steady gait. Course Course Course Narrative: RME performed by Nancy Thompson PA-C. Patient is a 78 year old assigned female at presenting to the emergency department with nausea, vomiting, and diarrhea. Detailed physical exam and review of systems are deferred to the quarry worker. Labs and swabs ordered. Patient placed back in the waiting room pending room availability and results. Reevaluation(s) Reevaluation #1: CT with evidence of calculi but no hydronephrosis, short segment of luminal narrowing in the distal sigmoid colon with surrounding stranding appearance suspicious for colonic obstruction which may be secondary to postinflammatory stricturing though mass can not be excluded -- had colonoscopy 04/28/2023 revealing diverticulosis, colonic edema, internal hemorrhoids, sigmoid colon with severe diverticulosis and luminal narrowing and edematous tissue. Given her pain nausea vomiting poor p.o. intake and abdominal exam findings, I have reached out to General surgery for further recommendation Reevaluation #2: Spoke with Dr. Jimenez from General surgery, recommends admission to medicine service with General surgery consult, he plans to evaluate patient in the morning. Medications Administered Generic Name Dose Route Start Last Admin Trade Name Freq PRN Reason Stop Dose Admin Sodium Chloride 1,000 mls @ 100 mls/hr 10/04/23 14:30 10/04/23 15:08 Ns IVCONT 100 mls/hr .Q10H NOHELIA Administration Metronidazole 500 mg in 100 mls @ 100 mls/hr 10/04/23 14:30 10/04/23 15:08 Flagyl IV 100 mls/hr Q8H NOHELIA Administration Insulin Human Lispro 0 unit 10/04/23 04:00 10/04/23 09:59 Insulin Lispro 100 Unit/Ml 3 Ml Vial SUBCUT Not Given Q6H NOHELIA Protocol Ondansetron HCl 4 mg 10/04/23 03:16 10/04/23 14:20 Ondansetron Hcl 4 Mg/2 Ml Vial IVPUSH 4 mg Q8H PRN Administration Nausea and Vomiting Sodium Chloride 3 ml 10/04/23 08:00 10/04/23 07:29 0.9 % Sodium Chloride Flush 3 Ml Syringe IVFLUSH Not Given QSHIFT NOHELIA Discontinued Medications Generic Name Dose Route Start Last Admin Trade Name Freq PRN Reason Stop Dose Admin Sodium Chloride 1,000 mls @ 999 mls/hr 10/03/23 23:00 10/04/23 02:07 Ns IV 10/04/23 00:00 Infused .Q1H1M NOHELIA Infusion Ceftriaxone Sodium 1 gm/ 50 mls @ 100 mls/hr 10/03/23 23:02 10/04/23 00:26 Sodium Chloride IV 10/03/23 23:31 Infused ONCE ONE Infusion Ondansetron HCl 4 mg 10/03/23 23:03 10/03/23 23:52 Ondansetron Hcl 4 Mg/2 Ml Vial IVPUSH 10/03/23 23:04 4 mg ONCE ONE Administration Medical Decision Making Medical Decision Making MDM Narrative: Patient is a 78-year-old female with past medical history of renal calculi, atrophic vaginitis, PMB, cirrhosis, fibromyalgia, neuropathy, right bundle- branch block, cholelithiasis, type 2 diabetes, anxiety, osteoarthritis, hypercholesterolemia, hypothyroidism, hypertension who presents emergency department for evaluation of periumbilical abdominal pain nausea vomiting and soft stool. At the time my evaluation her abdomen appears distended and she was significantly tender upon palpation appear to have more discomfort upon palpating on the left but reports her right abdomen feels worse. No CVA tenderness. Seopsis alert was called, Reviewed labs obtained from [facility]; CBC with leukocytosis 12.0 in the left shift, no anemia or thrombocytopenia. No significant electrolyte derangement. FELICITA with BUN 30 creatinine 1.85. LFTs lipase are all unremarkable. Urinalysis with microscopic hematuria and concern for urinary tract infection, there was additionally squamous epithelial cells present follow-up based on age symptoms and no additional labs denies urinary tract infection patient received Rocephin. Worrisome in place for blood cultures and lactic acid. Pending CT of the abdomen pelvis to evaluate for evidence pyelonephritis, obstructive calculi, hydronephrosis Differential Diagnosis Differential Diagnoses: The differential diagnosis associated with the presentation includes (See narrative above) Admission/Observation Consideration of admission/observation: Escalation of care including admission/observation considered Lab Data MDM Lab Attestation statement: I reviewed the patient's lab results. (See narrative above) 10/04/23 10:16 10/04/23 10:16 Labs: Lab Results 10/03/23 10/03/23 10/04/23 Range/Units 15:43 23:48 02:10 WBC 12.0 H (4.8-10.8) X10*3/uL RBC 4.19 L (4.20-5.50) X10*6/uL Hgb 13.2 (12.0-16.0) g/dl Hct 38.7 (37.0-47.0) % MCV 92.4 (80.0-98.0) fL MCH 31.5 (27.0-33.0) pg MCHC 34.1 (31.0-35.0) g/dl RDW 15.9 (11.0-16.0) % Plt Count 297 D (160-400) X10*3/uL MPV 9.2 L (9.4-12.3) fL Immature Gran % (Auto) 2.0 H (0.0-0.4) % Neut % (Auto) 69.8 (45-73) % Lymph % (Auto) 20.4 (20-40) % Cherry % (Auto) 7.2 (2-11) % Eos % (Auto) 0.3 (0-4) % Baso % (Auto) 0.3 (0-2) % Lymph # (Auto) 2.4 (1.2-4.9) X10*3/uL Cherry # (Auto) 0.9 (0.1-1.2) X10*3/uL Eos # (Auto) 0.0 (0.0-0.4) X10*3/uL Baso # (Auto) 0.0 (0.0-0.2) X10*3/uL Abs Immat Gran (auto) 0.24 H (0.00-0.03) X10*3/uL Absolute Neuts (auto) 8.4 H (2.0-8.3) x10*3/uL Absolute Nucleated RBC 0.000 (0.0-0.012) X10*3/uL Nucleated RBC % (auto) 0.0 (0.0-0.2) /100WBC Sodium 136 (135-145) mmol/L Potassium 4.3 (3.3-5.1) mmol/L Chloride 103 (96-108) mmol/L Carbon Dioxide 20 L (22-29) mmol/L Anion Gap 17 (12-20) BUN 30 H (9-16) mg/dL Creatinine 1.85 H (0.5-1.4) mg/dL Estim Creat Clear Calc 28.0 Estimated GFR 27 Random Glucose 141 H (60-115) mg/dL Lactic Acid 2.5 H* (0.5-2.0) mmol/L Lactic Acid F/U @ 2Hr 1.1 (0.5-2.0) mmol/L Calcium 9.8 D (8.4-10.2) mg/dL Total Bilirubin 1.0 (0.0-1.0) mg/dL Direct Bilirubin 0.4 (0.0-0.5) mg/dL AST 34 H (5-31) U/L ALT 20 (0-31) U/L Alkaline Phosphatase 77 (39-117) U/L Total Protein 7.8 (6.5-8.0) g/dL Albumin 3.6 (3.5-5.0) g/dL Lipase 12 (8-78) U/L Urine Color Yellow Urine Appearance Turbid Urine pH 6.5 (5.0-9.0) Ur Specific Potter 1.015 (1.005-1.025) Urine Protein 100 (2+) H (Neg-Trace) mg/dL Urine Glucose (UA) 100 H (Negative) mg/dL Urine Ketones Trace (Negative) mg/dL Urine Blood Moderate (2+) H (Negative) Urine Nitrite Negative (Negative) Ur Leukocyte Esterase Large (3+) H (Negative) Urine RBC 11-20 H (0-2) /HPF Urine WBC >50 H (0-5) /HPF Ur Squamous Epith Cells 11-20 (0-2) /HPF Urine Bacteria 4+ (None Seen) Hyaline Casts >20 (0-2) /LPF U Random Total Protein 189 H (<12) mg/dL Ur Random Sodium 61.0 mmol/L Ur Random Potassium 42.2 mmol/L Ur Random Chloride 41.0 mmol/L Urine Creatinine 158.74 mg/dL Protein/Creatinin Ratio 1.19 H (<0.2) Influenza Type A (PCR) NEGATIVE (Negative) Influenza Type B (PCR) NEGATIVE (Negative) RSV RNA Qual (PCR) NEGATIVE (Negative) SARS-CoV-2 RNA (RT-PCR) NEGATIVE (Negative) Radiology Impression Discussion of test interpretation with radiology: I have reviewed the radiologist's reading. Radiologist Impression: CT/CT abdomen pelvis wo IV con IMPRESSION: 1. Short segment of luminal narrowing in the distal sigmoid colon with surrounding stranding. Appearance is suspicious for a colonic obstruction which could be secondary to postinflammatory stricturing though a mass cannot be excluded. If not recently performed, further evaluation with colonoscopy is recommended. 2. Right ureteral stent in place. Numerous scattered right renal calculi. No hydronephrosis. 3. Cholelithiasis. 4. Nodular hepatic contour suspicious for cirrhosis. Independent Historian Clinical information obtained from an independent historian. History obtained from or confirmed by: Spouse External Record Review External record reviewed: Outpatient record Critical Care Time Critical Care Time Critical Care Time: Yes Total Critical Care Time: 40 Attestation: I personally attest to this critical care time spent taking care of the patient exclusive of all other billable procedures was approximately 40 minutes including initial evaluation of patient, ordering tests, sepsis alert, EKG interpretation, medical consultation, documentation, re-evaluation. Discharge Plan Discharge Clinical Impression: UTI (urinary tract infection), Diverticular disease, Sepsis Patient Disposition: Admitted As Inpatient Interventions: Admission Worksheet (ED) Last Done: 10/04/23 13:15 Discharge Date/Time: 10/04/23 13:45
[2023-10-03 15:58] LABS: MANUAL DIFF FLAG NO
[2023-10-03 16:00] LABS: Basophils Percent Auto 0.3 % (0-2); Eosinophils Percent Auto 0.3 % (0-4); Hematocrit 38.7 % (37.0-47.0); Hemoglobin 13.2 g/dl (12.0-16.0); Imm Gran Abs Auto 0.24 X10*3/uL (0.00-0.03); Lymphocytes Absolute Auto 2.4 X10*3/uL (1.2-4.9); Lymphocytes Percent Auto 20.4 % (20-40); Mean Corpuscular HGB Conc 34.1 g/dl (31.0-35.0); Mean Corpuscular Hemoglobin 31.5 pg (27.0-33.0); Mean Corpuscular Volume 92.4 fL (80.0-98.0); Mean Platelet Volume 9.2 fL (9.4-12.3); Monocytes Absolute Auto 0.9 X10*3/uL (0.1-1.2); Monocytes Percent Auto 7.2 % (2-11); Neutrophils Absolute Auto 8.4 x10*3/uL (2.0-8.3); Neutrophils Percent Auto 69.8 % (45-73); Platelet Count 297 X10*3/uL (160-400); Red Blood Count 4.19 X10*6/uL (4.20-5.50); Red Cell Distribution Width 15.9 % (11.0-16.0)
[2023-10-03 16:03] LABS: Appearance Urine Turbid; Color Urine Yellow; Glucose Urine UA 100 mg/dL (Negative); Leukocyte Esterase Urine Large (3+) (Negative); Nitrite Urine Negative (Negative); PH 6.5 (5.0-9.0); Specific Gravity - Urine 1.015 (1.005-1.025); UMIC TRIGGER UACC YES; Urine Blood Moderate (2+) (Negative); Urine Ketones Trace mg/dL (Negative); Urine Protein 100 (2+) mg/dL (Neg-Trace)
[2023-10-03 16:16] LABS: Alanine Aminotransferase 20 U/L (0-31); Albumin Level 3.6 g/dL (3.5-5.0); Alkaline Phosphatase 77 U/L (39-117); Anion Gap 17 (12-20); Aspartate Amino Transferase 34 U/L (5-31); Bilirubin Direct 0.4 mg/dL (0.0-0.5); Blood Urea Nitrogen 30 mg/dL (9-16); Calcium 9.8 mg/dL (8.4-10.2); Carbon Dioxide 20 mmol/L (22-29); Chloride 103 mmol/L (96-108); Estimated Glomerular Filt Rate 27; Glucose Random 141 mg/dL (60-115); Lipase 12 U/L (8-78); Potassium 4.3 mmol/L (3.3-5.1); Sodium 136 mmol/L (135-145); Total Protein 7.8 g/dL (6.5-8.0)
[2023-10-03 16:25] LABS: Bacteria Urine 4+ (None Seen); Hyaline Casts Urine >20 /LPF (0-2); UACC Culture Trigger YES; WBC Urine >50 /HPF (0-5)
[2023-10-03 16:44] LABS: Influenza A PCR NEGATIVE (Negative); Influenza B PCR NEGATIVE (Negative); Resp Syncy Virus RNA Qual PCR NEGATIVE (Negative); SARS COV2 PCR INHOUSE NEGATIVE (Negative)
[2023-10-03 22:38] VITALS: BP 112/34; PULSE 82; RESP 14; TEMP 36.7; O2SAT 97
[2023-10-03] MEDS: 0.9 % Sodium Chloride 1,000 ML 999 ML IV (23:52)
[2023-10-03] MEDS: cefTRIAXone sodium 1 GM in 0.9 % Sodium Chloride 50 ML IV (23:52)
[2023-10-03] MEDS: ondansetron HCL 4 MG/2 ML VIAL IVPUSH (23:52)
[2023-10-04] VITALS (7 sets, daily range): BP systolic 97–111; BP diastolic 51–64; PULSE 83–89; RESP 16–20; TEMP 36–36.7; O2SAT 96–99
[2023-10-04 00:22] LABS: Lactic Acid 2.5 mmol/L (0.5-2.0)
[2023-10-04 02:00] LABS: Reflex Lactate? Lactic Acid Added
[2023-10-04 02:26] LABS: ~Lactic Acid-LAB USE ONLY 1.1 mmol/L (0.5-2.0)
--- NOTE | 2023-10-04 03:17 | PM.IMHP ---
History of Present Illness Date of Service: 10/04/23 Chief Complaint: Nausea/vomiting This is a 78-year-old female with pertinent history of history of retroperitoneal abscess, hypothyroidism, acr-fylbmlt-xoqvkyhxh diabetes mellitus, mood disorder, hypertension, mixed hyperlipidemia who presents to the emergency department for evaluation of abdominal pain, nausea and vomiting. Patient states his symptoms started 1 day prior to presentation. She has been having periumbilical abdominal discomfort which is constant, nonprogressive, nonradiating and without any relieving factors. She has also been having associated nausea and multiple episodes of nonbloody emesis. Her last bowel movement was 2 days ago. She denies fever, chills, chest discomfort, palpitations, shortness of breath, changes in bowel habits. Does endorse increased urinary frequency and urgency. In the emergency department, patient was found to be septic. Urine concerning for UTI. Imaging concerning for colonic obstruction in general surgery was consulted. Review of Systems Cardiovascular: Cardiovascular: Reports no additional cardiovascular complaints Respiratory: Respiratory: Reports no additional respiratory complaints Gastrointestinal: Gastrointestinal: Reports abdominal pain, Reports nausea and Reports vomiting Genitourinary: Genitourinary: Reports no additional female genitourinary complaints [facility] Medical History Hydroureteronephrosis Wound infection Open wound of back, complicated Cellulitis Frequency of urination Vaginal burning Vaginal itching PMB (postmenopausal bleeding) Cirrhosis of liver Does mobilize using walker PONV (postoperative nausea and vomiting) Left foot drop Fatty liver Fibromyalgia Neuropathy RBBB Cholelithiasis Staghorn calculus Renal calculus, bilateral Renal calyceal dilation determined by ultrasound UTI (urinary tract infection) Diabetes mellitus, type II Ganglion cyst Plantar fasciitis Anxiety OA (osteoarthritis) Obstructive airway disease Hypercholesterolemia Low back pain Sciatica Hypothyroidism HTN (hypertension) Primary osteoarthritis of right knee Retained ureteral stent Renal stones Staghorn calculus Perirectal abscess Family History Father Alcohol dependence Mother CHF (congestive heart failure) Cancer of breast Mother No problems noted. Other Alcoholic cirrhosis Surgical History Status post cystoscopy with ureteral stent placement History of lumbar discectomy History of lumpectomy of both breasts History of cystoscopy History of lithotripsy Hx of colonoscopy History of surgery Social History Household Members: None Housing: House Do you presently have visiting nurse or other home services: No Alcohol intake: never Comment: given pyridium Patient Tobacco Use Status: Former Tobacco user Tobacco use type: Cigarette Years Smoked: 27 Smoked in Last 30 Days: No Second Hand Smoke Exposure: No Use of substances other than those prescribed or required for medical reasons: No Advance Directives: Yes Advance Directives on File: Yes Advance Directives Date on File: 04/06/21 Do you have a plan to hurt others: No Plan service: No Current occupational status: disabled Meds Allergies Allergy/AdvReac Type Severity Reaction Status Date / Time chlorpheniramine Allergy Severe HALLUCINATI Verified 10/03/23 15:30 [From TUSSIONEX] ONS escitalopram [ESCITALOPRAM] Allergy Severe DISSOCIATIVE Verified 10/03/23 15:30 REACTION fluoxetine [FLUOXETINE] Allergy Severe DISSOCIATIVE Verified 10/03/23 15:30 REACTION hydrocodone [From TUSSIONEX] Allergy Severe HALLUCINATI Verified 10/03/23 15:30 ONS ibuprofen [IBUPROFEN] Allergy Severe THROAT Verified 10/03/23 15:30 SWELLING Sulfa (Sulfonamide Allergy Severe DYSPNEA Verified 10/03/23 15:30 Antibiotics) [SULFA (SULFONAMIDE ANTIBIOTICS)] clarithromycin [From BIAXIN] Allergy Intermediate ABD.PAIN Verified 10/03/23 15:30 duloxetine [DULOXETINE] Allergy Intermediate FACIAL Verified 10/03/23 15:30 NUMBNESS erythromycin base Allergy Intermediate RASH Verified 10/03/23 15:30 [ERYTHROMYCIN BASE] Penicillins [PENICILLINS] Allergy Intermediate RASH Verified 10/03/23 15:30 tetracycline [TETRACYCLINE] Allergy Intermediate DIARRHEA Verified 10/03/23 15:30 ciprofloxacin [From CIPRO] Allergy Unknown ANAPHYLAXIS Verified 10/03/23 15:30 codeine [CODEINE] Allergy Unknown TINNITIS Verified 10/03/23 15:30 guaifenesin Allergy Unknown Unknown Verified 10/03/23 15:30 levofloxacin [From Levaquin] Allergy Unknown Unknown Verified 10/03/23 15:30 pregabalin Allergy Unknown Unknown Verified 10/03/23 15:30 Home Medications ?Medication ?Instructions ?Recorded ?Confirmed ?Last Taken ?Type levothyroxine 112 mcg tablet 112 mcg PO DAILY 08/28/20 09/05/23 04/24/23 History atorvastatin 10 mg tablet 1 tab PO DAILY@0 04/05/21 09/05/23 04/24/23 History metformin 500 mg tablet,extended 1 tab PO DAILY@1700 04/06/21 09/05/23 04/18/23 History release 24 hr cholecalciferol (vitamin D3) 50 50 mcg PO DAILY 07/19/22 09/05/23 04/24/23 History mcg (2,000 unit) tablet (Vitamin D3) lisinopril 10 mg tablet 10 mg PO DAILY 07/19/22 09/05/23 04/24/23 History Physical Exam Vital Signs and Narrative: Vital Signs: Last Vital Signs Temp 98.0 F 10/04/23 01:47 Pulse 83 10/04/23 01:47 Resp 20 10/04/23 01:47 BP 105/51 L 10/04/23 01:47 Pulse Ox 98 10/04/23 01:47 O2 Del Method Room Air 10/04/23 01:47 BMI result Body Mass Index 33.8 Elderly female lying in bed in no distress Neck supple, no JVD Regular rate and rhythm, S1-S2 heard Regular breath sounds bilaterally, no wheezing or crackles appreciated Abdomen soft with mild epigastric tenderness, no rigidity, no rebound tenderness Patient is awake, alert and oriented to self, place, time and person ; no focal motor deficit Psych: Normal mood No pedal edema Results Labs 10/03/23 15:43 10/03/23 15:43 Labs: Laboratory Results - last 24 hr 10/03/23 10/03/23 10/04/23 15:43 23:48 02:10 MCV 92.4 MCH 31.5 MCHC 34.1 RDW 15.9 Plt Count 297 D MPV 9.2 L Immature Gran % (Auto) 2.0 H Neut % (Auto) 69.8 Lymph % (Auto) 20.4 [place] % (Auto) 7.2 Eos % (Auto) 0.3 Baso % (Auto) 0.3 Lymph # (Auto) 2.4 [place] # (Auto) 0.9 Eos # (Auto) 0.0 Baso # (Auto) 0.0 Abs Immat Gran (auto) 0.24 H Absolute Neuts (auto) 8.4 H Absolute Nucleated RBC 0.000 Nucleated RBC % (auto) 0.0 Anion Gap 17 Estim Creat Clear Calc 28.0 Estimated GFR 27 Random Glucose 141 H Lactic Acid 2.5 H* Lactic Acid F/U @ 2Hr 1.1 Calcium 9.8 D Total Bilirubin 1.0 Direct Bilirubin 0.4 AST 34 H ALT 20 Alkaline Phosphatase 77 Total Protein 7.8 Albumin 3.6 Lipase 12 Urine Color Yellow Urine Appearance Turbid Urine pH 6.5 Ur Specific [place] 1.015 Urine Protein 100 (2+) H Urine Glucose (UA) 100 H Urine Ketones Trace Urine Blood Moderate (2+) H Urine Nitrite Negative Ur Leukocyte Esterase Large (3+) H Urine RBC 11-20 H Urine WBC >50 H Ur Squamous Epith Cells 11-20 Urine Bacteria 4+ Hyaline Casts >20 Influenza Type A (PCR) NEGATIVE Influenza Type B (PCR) NEGATIVE RSV RNA Qual (PCR) NEGATIVE SARS-CoV-2 RNA (RT-PCR) NEGATIVE Imaging Radiologist's Impressions: Impressions Abdomen/Pelvis CT 10/03/23 23:09 IMPRESSION: 1. Short segment of luminal narrowing in the distal sigmoid colon with surrounding stranding. Appearance is suspicious for a colonic obstruction which could be secondary to postinflammatory stricturing though a mass cannot be excluded. If not recently performed, further evaluation with colonoscopy is recommended. 2. Right ureteral stent in place. Numerous scattered right renal calculi. No hydronephrosis. 3. Cholelithiasis. 4. Nodular hepatic contour suspicious for cirrhosis. Electronically signed by: Avel Atwood MD 10/04/2023 01:44 AM EDT Assessment and Plan (1) Nausea & vomiting: Status: Acute (2) Abdominal pain in female: Status: Acute Plan This is a 78-year-old female with pertinent history of history of retroperitoneal abscess, hypothyroidism, ubx-hpduxml-utnrjekcw diabetes mellitus, mood disorder, hypertension, mixed hyperlipidemia who presents to the emergency department for evaluation of abdominal pain, nausea and vomiting. #. Abdominal pain with nausea and intractable vomiting: Imaging concerning for colonic obstruction. Will admit patient and keep her NPO. General surgery consulted, appreciate assistance. #. Sepsis due to acute UTI: Initiating empiric IV ceftriaxone. Resuscitated with IV crystalloids. Lactic acid and blood cultures obtained. Follow urine culture #. Acute kidney injury stage I: Monitor with crystalloid resuscitation. Avoid nephrotoxins #. Acute lactic acidosis due to sepsis #. Pax-dojaahk-hvpijzazj diabetes mellitus: Initiating Accu-Cheks with sliding scale insulin every 6 hours #. Hypothyroidism: On Synthroid #. Hypertension: Hold furosemide and lisinopril in the setting of FELICIAT #. Obesity: Counseled regarding diet and exercise Med rec pending DVT prophylaxis: Mechanical Full code Admit as inpatient and will require two night minimum hospital stay for IV antibiotics(as above), which is not possible in a lesser acute setting. Specialist consult pending Quality Stroke Does the patient have a stroke diagnosis?: No VTE Prior VTE?: No VTE Risk Level:: Medical - moderate - high VTE Device Contraindication: N/A - Device Ordered VTE Drug Contraindication: Treatment Not Indicated
[2023-10-04 04:15] LABS: Glucose, Whole Blood 117 mg/dL (60-115)
--- NOTE | 2023-10-04 07:51 | PM.CNGS ---
History of Present Illness Consult details Consult date: 10/04/23 Reason for consult: abdominal pain Requesting physician: Tiffany Sanches Narrative: 78-year-old female patient presenting for evaluation of abdominal pain, nausea, and vomiting. She has a past medical history of renal calculi, perinephric abscess, atrophic vaginitis, cirrhosis, fibromyalgia, neuropathy, cholelithiasis without cholecystitis, right bundle branch block, type 2 diabetes, anxiety, osteoarthritis, hypercholesterolemia, hypertension, and hypothyroidism. She was previously evaluated in April due to abdominal pain. CT abdomen and pelvis at that time revealed narrowing of the sigmoid colon. Subsequent colonoscopy performed by Dr. Watkins revealed diverticular changes with inflammation, biopsies however were negative for malignancy. She returns today with a proximally 48 hour history of abdominal pain, nausea and 1 episode of soft stool. Laboratories revealed a WBC of 12 with an elevated BUN of 30 and creatinine 1.85. Lactic acid was 2.5. A CT abdomen and pelvis again reveals dilated colon with narrowing at the sigmoid colon. There is stranding suspicious for colonic obstruction possibly postinflammatory. She has been admitted to the hospitalist service for urinary infection. Surgical consultation was requested for the bowel obstruction. This morning she feels continued abdominal pain. She feels nauseous without vomiting. Review of Systems Review of Systems: Yes all other systems are reviewed and are negative Constitutional: Constitutional: Denies chills, Denies fever(s), Denies headache(s), Reports poor appetite and Denies weakness ENT: Denies headache(s) Cardiovascular: Cardiovascular: Denies chest pain, Denies irregular heart rhythm, Denies palpitations and Denies dyspnea Respiratory: Respiratory: Denies cough, Denies excessive phlegm production and Denies dyspnea Gastrointestinal: Gastrointestinal: Reports abdominal pain, Reports bloating, Denies change in bowel habits, Reports constipation, Denies heartburn, Reports diarrhea, Reports nausea and Reports vomiting Genitourinary: Genitourinary: Denies urinary frequency Musculoskeletal: Musculoskeletal: Denies back pain, Denies muscle weakness and Denies numbness Integumentary/Breasts: Skin/Breast: Denies changing lesions and Denies unusual bruising Neurologic: Denies headache(s), Denies numbness, Denies paresthesias and Denies weakness Psychiatric: Psychiatric: Denies anxiety and Denies depression Endocrine: Endocrine: Denies palpitations Hematologic/Lymphatic: Hematologic/Lymphatic: Denies lymphadenopathy [facility] Past Medical History Medical History Hydroureteronephrosis Wound infection Open wound of back, complicated Cellulitis Frequency of urination Vaginal burning Vaginal itching PMB (postmenopausal bleeding) Cirrhosis of liver Does mobilize using walker PONV (postoperative nausea and vomiting) Left foot drop Fatty liver Fibromyalgia Neuropathy RBBB Cholelithiasis Staghorn calculus Renal calculus, bilateral Renal calyceal dilation determined by ultrasound UTI (urinary tract infection) Diabetes mellitus, type II Ganglion cyst Plantar fasciitis Anxiety OA (osteoarthritis) Obstructive airway disease Hypercholesterolemia Low back pain Sciatica Hypothyroidism HTN (hypertension) Primary osteoarthritis of right knee Retained ureteral stent Renal stones Staghorn calculus Perirectal abscess Family History Family History Father Alcohol dependence Mother CHF (congestive heart failure) Cancer of breast Mother No problems noted. Other Alcoholic cirrhosis Surgical History Surgical History Status post cystoscopy with ureteral stent placement History of lumbar discectomy History of lumpectomy of both breasts History of cystoscopy History of lithotripsy Hx of colonoscopy History of surgery Social History Social History Household Members: None Housing: House Do you presently have visiting nurse or other home services: No Alcohol intake: never Comment: given pyridium Patient Tobacco Use Status: Former Tobacco user Tobacco use type: Cigarette Years Smoked: 27 Smoked in Last 30 Days: No Second Hand Smoke Exposure: No Use of substances other than those prescribed or required for medical reasons: No Advance Directives: Yes Advance Directives on File: Yes Advance Directives Date on File: 04/06/21 Do you have a plan to hurt others: No Plan Nutrition Risks: No Nutritional Risk service: No Current occupational status: disabled Meds Allergies Allergy/AdvReac Type Severity Reaction Status Date / Time chlorpheniramine Allergy Severe HALLUCINATI Verified 10/03/23 15:30 [From TUSSIONEX] ONS escitalopram [ESCITALOPRAM] Allergy Severe DISSOCIATIVE Verified 10/03/23 15:30 REACTION fluoxetine [FLUOXETINE] Allergy Severe DISSOCIATIVE Verified 10/03/23 15:30 REACTION hydrocodone [From TUSSIONEX] Allergy Severe HALLUCINATI Verified 10/03/23 15:30 ONS ibuprofen [IBUPROFEN] Allergy Severe THROAT Verified 10/03/23 15:30 SWELLING Sulfa (Sulfonamide Allergy Severe DYSPNEA Verified 10/03/23 15:30 Antibiotics) [SULFA (SULFONAMIDE ANTIBIOTICS)] clarithromycin [From BIAXIN] Allergy Intermediate ABD.PAIN Verified 10/03/23 15:30 duloxetine [DULOXETINE] Allergy Intermediate FACIAL Verified 10/03/23 15:30 NUMBNESS erythromycin base Allergy Intermediate RASH Verified 10/03/23 15:30 [ERYTHROMYCIN BASE] Penicillins [PENICILLINS] Allergy Intermediate RASH Verified 10/03/23 15:30 tetracycline [TETRACYCLINE] Allergy Intermediate DIARRHEA Verified 10/03/23 15:30 ciprofloxacin [From CIPRO] Allergy Unknown ANAPHYLAXIS Verified 10/03/23 15:30 codeine [CODEINE] Allergy Unknown TINNITIS Verified 10/03/23 15:30 guaifenesin Allergy Unknown Unknown Verified 10/03/23 15:30 levofloxacin [From Levaquin] Allergy Unknown Unknown Verified 10/03/23 15:30 pregabalin Allergy Unknown Unknown Verified 10/03/23 15:30 Active Medications: Current Medications Acetaminophen (Acetaminophen 325 Mg Tablet) 650 mg PO Q6H PRN PRN Reason: Pain, Mild (Pain Scale 1-3), fever or headache Calcium Carbonate (Calcium Carbonate 750 Mg Tab.Chew) 750 mg PO Q4H PRN PRN Reason: Heartburn Glucose (Glucose Gel 15 Gm Gel..Gram.) 15 gm PO Q15M PRN; Protocol PRN Reason: per Hypoglycemia Standing Ord. Dextrose (D10) 250 mls @ 750 mls/hr IV Q15M PRN; Protocol PRN Reason: per Hypoglycemia Standing Ord. Ceftriaxone Sodium 1 gm/ (Sodium Chloride) 50 mls @ 100 mls/hr IV Q24H NOHELIA Insulin Human Lispro (Insulin Lispro 100 Unit/Ml 3 Ml Vial) 0 unit SUBCUT Q6H NOHELIA; Protocol Last Admin: 10/04/23 04:16 Dose: Not Given Magnesium Hydroxide (Milk Of Magnesia 30 Ml Oral.Susp) 30 ml PO DAILY PRN PRN Reason: Constipation Melatonin (Melatonin 3 Mg Tablet) 6 mg PO BEDTIME PRN PRN Reason: Insomnia Ondansetron HCl (Ondansetron Hcl 4 Mg/2 Ml Vial) 4 mg IVPUSH Q8H PRN PRN Reason: Nausea and Vomiting Sodium Chloride (0.9 % Sodium Chloride Flush 3 Ml Syringe) 3 ml IVFLUSH QSHIFT [facility] Last Admin: 10/04/23 07:29 Dose: Not Given Home Medications ?Medication ?Instructions ?Recorded ?Confirmed ?Last Taken ?Type levothyroxine 112 mcg tablet 112 mcg PO DAILY 08/28/20 09/05/23 04/24/23 History atorvastatin 10 mg tablet 1 tab PO DAILY@1700 04/05/21 09/05/23 04/24/23 History metformin 500 mg tablet,extended 1 tab PO DAILY@1700 04/06/21 09/05/23 04/18/23 History release 24 hr cholecalciferol (vitamin D3) 50 50 mcg PO DAILY 07/19/22 09/05/23 04/24/23 History mcg (2,000 unit) tablet (Vitamin D3) lisinopril 10 mg tablet 10 mg PO DAILY 07/19/22 09/05/23 04/24/23 History ketoconazole 2 % topical cream appl topical DAILY 10/04/23 Unknown History Physical Exam Vital Signs: Vital Signs: Last Vital Signs Temp 98.0 F 10/04/23 01:47 Pulse 86 10/04/23 05:49 Resp 18 10/04/23 05:49 BP 111/52 L 10/04/23 05:49 Pulse Ox 99 10/04/23 05:49 O2 Del Method Room Air 10/04/23 05:49 BMI result Body Mass Index 33.8 Const: General: cooperative and no acute distress Nutritional Appearance: well nourished Orientation/consciousness: patient oriented x3 Limitations: no limitations HEENT: Head: Yes normocephalic and Yes atraumatic Ears: hearing grossly normal bilaterally Resp: Effort & Inspection: normal respiratory effort, no audible wheezes, no cough and no respiratory distress Cardio: Jugular venous distension: no JVD GI: Inspection: Yes normal to inspection Palpation (GI): Soft to palpation and Tenderness to palpation present (GI) (Diffuse, 4 quadrant tenderness) Percussion: Yes dullness to percussion Rectal Exam - Female: deferred Skin: Other: Warm, dry, no rash Neuro: General: patient oriented x3 Extrem: General: Yes capillary refill normal and Yes no clubbing, cyanosis or edema Results Labs 10/03/23 15:43 10/03/23 15:43 Labs: Abnormal lab results 10/03/23 10/03/23 10/04/23 Range/Units 15:43 23:48 04:12 WBC 12.0 H (4.8-10.8) X10*3/uL RBC 4.19 L (4.20-5.50) X10*6/uL MPV 9.2 L (9.4-12.3) fL Immature Gran % (Auto) 2.0 H (0.0-0.4) % Abs Immat Gran (auto) 0.24 H (0.00-0.03) X10*3/uL Absolute Neuts (auto) 8.4 H (2.0-8.3) x10*3/uL Carbon Dioxide 20 L (22-29) mmol/L BUN 30 H (9-16) mg/dL Creatinine 1.85 H (0.5-1.4) mg/dL POC Glucose 117 H (60-115) mg/dL Random Glucose 141 H (60-115) mg/dL Lactic Acid 2.5 H* (0.5-2.0) mmol/L AST 34 H (5-31) U/L Urine Protein 100 (2+) H (Neg-Trace) mg/dL Urine Glucose (UA) 100 H (Negative) mg/dL Urine Blood Moderate (2+) H (Negative) Ur Leukocyte Esterase Large (3+) H (Negative) Urine RBC 11-20 H (0-2) /HPF Urine WBC >50 H (0-5) /HPF Short CBC 10/03/23 Range/Units 15:43 WBC 12.0 H (4.8-10.8) X10*3/uL Hgb 13.2 (12.0-16.0) g/dl Hct 38.7 (37.0-47.0) % Plt Count 297 D (160-400) X10*3/uL BMP 10/03/23 15:43 Sodium 136 Potassium 4.3 Chloride 103 Carbon Dioxide 20 L BUN 30 H Creatinine 1.85 H Calcium 9.8 D Liver Function 10/03/23 Range/Units 15:43 Total Bilirubin 1.0 (0.0-1.0) mg/dL Direct Bilirubin 0.4 (0.0-0.5) mg/dL AST 34 H (5-31) U/L ALT 20 (0-31) U/L Alkaline Phosphatase 77 (39-117) U/L Albumin 3.6 (3.5-5.0) g/dL Urine 10/03/23 Range/Units 15:43 Urine Color Yellow Urine Appearance Turbid Urine pH 6.5 (5.0-9.0) Ur Specific [place] 1.015 (1.005-1.025) Urine Protein 100 (2+) H (Neg-Trace) mg/dL Urine Glucose (UA) 100 H (Negative) mg/dL All other labs normal. Imaging Abdomen CT scan report/results: image reviewed CT scan - pelvis: image reviewed Assessment and Plan (1) Partial obstruction of colon: Status: Acute (2) Nausea & vomiting: Qualifiers: Vomiting type: bilious vomiting Qualified Code(s): R11.14 - Bilious vomiting Status: Acute (3) Mural thickening of sigmoid colon: Status: Acute Plan 78-year-old female patient with a progressive history of narrowing of the sigmoid colon possibly postinflammatory from diverticulitis. She recently underwent colonoscopy in 04/27/2023 which was negative for malignancy. On CT today she is found to have dilated colon with area of narrowing in the sigmoid colon. She is currently being treated for urinary infection. The narrowing was previously identified on CT going back to 2021. This may require sigmoid colectomy, possibly with end colostomy if no improvement of her symptoms. I discussed the possibility of surgery with the patient and she wishes to avoid this if at all possible. I will continue to monitor her during this hospitalization. Procedures Date of Service Date of Service: 10/04/23
--- NOTE | 2023-10-04 08:19 | PHA.MEDREC ---
Addendum entered by Roldan Washington [facility] 10/04/23 08:28: MED REC CHECKED BY [facility] Original Note: Pharmacy Consult ? Medication Reconciliation Pharmacy has completed the medication reconciliation. Spoke to patient bedside, stated she discontinued all of the topical medications including estradiol, ketoconazole, miconazole and glycerin gel. She stated the last time she took her medications was yesterday.
[2023-10-04 10:02] LABS: Glucose, Whole Blood 128 mg/dL (60-115)
[2023-10-04 10:20] LABS: MANUAL DIFF FLAG NO
[2023-10-04 10:24] LABS: Basophils Percent Auto 0.3 % (0-2); Eosinophils Absolute Auto 0.1 X10*3/uL (0.0-0.4); Eosinophils Percent Auto 0.9 % (0-4); Hematocrit 35.2 % (37.0-47.0); Hemoglobin 11.8 g/dl (12.0-16.0); Imm Gran Abs Auto 0.15 X10*3/uL (0.00-0.03); Imm Gran Pct Auto 1.6 % (0.0-0.4); Lymphocytes Absolute Auto 1.7 X10*3/uL (1.2-4.9); Lymphocytes Percent Auto 17.4 % (20-40); Mean Corpuscular HGB Conc 33.5 g/dl (31.0-35.0); Mean Corpuscular Hemoglobin 31.7 pg (27.0-33.0); Mean Corpuscular Volume 94.6 fL (80.0-98.0); Mean Platelet Volume 9.1 fL (9.4-12.3); Monocytes Absolute Auto 0.9 X10*3/uL (0.1-1.2); Monocytes Percent Auto 8.9 % (2-11); Neutrophils Absolute Auto 6.8 x10*3/uL (2.0-8.3); Neutrophils Percent Auto 70.9 % (45-73); Platelet Count 233 X10*3/uL (160-400); Red Blood Count 3.72 X10*6/uL (4.20-5.50); Red Cell Distribution Width 16.2 % (11.0-16.0); White Blood Count 9.6 X10*3/uL (4.8-10.8)
[2023-10-04 10:47] LABS: Anion Gap 13 (12-20); Blood Urea Nitrogen 39 mg/dL (9-16); Calcium 8.8 mg/dL (8.4-10.2); Carbon Dioxide 24 mmol/L (22-29); Chloride 104 mmol/L (96-108); Estimated Glomerular Filt Rate 19; Glucose Random 130 mg/dL (60-115); Potassium 4.2 mmol/L (3.3-5.1); Sodium 137 mmol/L (135-145)
--- NOTE | 2023-10-04 11:16 | P.CNGI_ITS ---
History of Present Illness Data of Consult Service Date: 10/04/23 Requesting physician: Clint Webb Primary Care Provider: Preston Wang DO HPI Reason for consult: Abnormal CT scan This is a 78 y.o F with PMH of who is here for abd pain, N,V and found to have partial large bowel obstruction. Gastroenterology consultation requested for abnormal imaging findings. Pt reports three days of abdominal pain, bloating, nausea and vomiting. Interestingly, patient also reports diarrhea with this. As she was not able to tolerate any thing orally over the weekend, she came to the emergency room. On arrival she was noted to have soft pressures. Initial labs with lactic acidosis, white count and worsening FELICITA. CT Abd/pel with distal sigmoid narrowing with upstream dilation. Also with surrounding fatty stranding. Does have air in stool matter distal to this narrowing. [place] 04/2023: Severe diverticulosis in sigmoid with luminal narrowing. At the time of bedside evaluation, patient had just had some broth, and tolerated it without any nausea, or vomiting. Review of Systems 2 Review of Systems: Yes all other systems are reviewed and are negative PMFSH Past Medical History Medical History Hydroureteronephrosis Wound infection Open wound of back, complicated Cellulitis Frequency of urination Vaginal burning Vaginal itching PMB (postmenopausal bleeding) Cirrhosis of liver Does mobilize using walker PONV (postoperative nausea and vomiting) Left foot drop Fatty liver Fibromyalgia Neuropathy RBBB Cholelithiasis Staghorn calculus Renal calculus, bilateral Renal calyceal dilation determined by ultrasound UTI (urinary tract infection) Diabetes mellitus, type II Ganglion cyst Plantar fasciitis Anxiety OA (osteoarthritis) Obstructive airway disease Hypercholesterolemia Low back pain Sciatica Hypothyroidism HTN (hypertension) Primary osteoarthritis of right knee Retained ureteral stent Renal stones Staghorn calculus Perirectal abscess Family History Family History Father Alcohol dependence Mother CHF (congestive heart failure) Cancer of breast Mother No problems noted. Other Alcoholic cirrhosis Surgical History Surgical History Status post cystoscopy with ureteral stent placement History of lumbar discectomy History of lumpectomy of both breasts History of cystoscopy History of lithotripsy Hx of colonoscopy History of surgery Social History Social History Household Members: None Housing: House Do you presently have visiting nurse or other home services: No Alcohol intake: never Comment: given pyridium Patient Tobacco Use Status: Former Tobacco user Tobacco use type: Cigarette Years Smoked: 27 Second Hand Smoke Exposure: No Advance Directives Date on File: 04/06/21 service: No Current occupational status: disabled Meds Allergies Allergy/AdvReac Type Severity Reaction Status Date / Time chlorpheniramine Allergy Severe HALLUCINATI Verified 10/03/23 15:30 [From TUSSIONEX] ONS escitalopram [ESCITALOPRAM] Allergy Severe DISSOCIATIVE Verified 10/03/23 15:30 REACTION fluoxetine [FLUOXETINE] Allergy Severe DISSOCIATIVE Verified 10/03/23 15:30 REACTION hydrocodone [From TUSSIONEX] Allergy Severe HALLUCINATI Verified 10/03/23 15:30 ONS ibuprofen [IBUPROFEN] Allergy Severe THROAT Verified 10/03/23 15:30 SWELLING Sulfa (Sulfonamide Allergy Severe DYSPNEA Verified 10/03/23 15:30 Antibiotics) [SULFA (SULFONAMIDE ANTIBIOTICS)] clarithromycin [From BIAXIN] Allergy Intermediate ABD.PAIN Verified 10/03/23 15:30 duloxetine [DULOXETINE] Allergy Intermediate FACIAL Verified 10/03/23 15:30 NUMBNESS erythromycin base Allergy Intermediate RASH Verified 10/03/23 15:30 [ERYTHROMYCIN BASE] Penicillins [PENICILLINS] Allergy Intermediate RASH Verified 10/03/23 15:30 tetracycline [TETRACYCLINE] Allergy Intermediate DIARRHEA Verified 10/03/23 15:30 ciprofloxacin [From CIPRO] Allergy Unknown ANAPHYLAXIS Verified 10/03/23 15:30 codeine [CODEINE] Allergy Unknown TINNITIS Verified 10/03/23 15:30 guaifenesin Allergy Unknown Unknown Verified 10/03/23 15:30 levofloxacin [From Levaquin] Allergy Unknown Unknown Verified 10/03/23 15:30 pregabalin Allergy Unknown Unknown Verified 10/03/23 15:30 Active Medications: Current Medications Acetaminophen (Acetaminophen 325 Mg Tablet) 650 mg PO Q6H PRN PRN Reason: Pain, Mild (Pain Scale 1-3), fever or headache Calcium Carbonate (Calcium Carbonate 750 Mg Tab.Chew) 750 mg PO Q4H PRN PRN Reason: Heartburn Glucose (Glucose Gel 15 Gm Gel..Gram.) 15 gm PO Q15M PRN; Protocol PRN Reason: per Hypoglycemia Standing Ord. Dextrose (D10) 250 mls @ 750 mls/hr IV Q15M PRN; Protocol PRN Reason: per Hypoglycemia Standing Ord. Ceftriaxone Sodium 1 gm/ (Sodium Chloride) 50 mls @ 100 mls/hr IV Q24H [facility] Insulin Human Lispro (Insulin Lispro 100 Unit/Ml 3 Ml Vial) 0 unit SUBCUT Q6H [facility]; Protocol Last Admin: 10/04/23 09:59 Dose: Not Given Magnesium Hydroxide (Milk Of Magnesia 30 Ml Oral.Susp) 30 ml PO DAILY PRN PRN Reason: Constipation Melatonin (Melatonin 3 Mg Tablet) 6 mg PO BEDTIME PRN PRN Reason: Insomnia Ondansetron HCl (Ondansetron Hcl 4 Mg/2 Ml Vial) 4 mg IVPUSH Q8H PRN PRN Reason: Nausea and Vomiting Sodium Chloride (0.9 % Sodium Chloride Flush 3 Ml Syringe) 3 ml IVFLUSH QSHIFT [facility] Last Admin: 10/04/23 07:29 Dose: Not Given Home Medications ?Medication ?Instructions ?Recorded ?Confirmed ?Last Taken ?Type levothyroxine 112 mcg tablet 112 mcg PO DAILY 08/28/20 10/04/23 10/03/23 History atorvastatin 10 mg tablet 1 tab PO DAILY@1700 04/05/21 10/04/23 1 Day Ago History ~10/03/23 metformin 500 mg tablet,extended 1 tab PO DAILY@1700 04/06/21 10/04/23 10/03/23 History release 24 hr cholecalciferol (vitamin D3) 50 50 mcg PO DAILY 07/19/22 10/04/23 10/03/23 History mcg (2,000 unit) tablet (Vitamin D3) lisinopril 10 mg tablet 10 mg PO DAILY 07/19/22 10/04/23 10/03/23 History acetaminophen 500 mg tablet 1,000 mg PO BID PRN Pain 10/04/23 10/04/23 Unknown History ascorbic acid (vitamin C) 500 mg 500 mg PO DAILY 10/04/23 10/04/23 10/03/23 History tablet Physical Exam 2 Vital Signs: Vital Signs: Last Vital Signs Temp 98.0 F 10/04/23 10:28 Pulse 87 10/04/23 10:28 Resp 16 10/04/23 10:28 BP 98/53 L 10/04/23 10:28 Pulse Ox 96 10/04/23 10:28 O2 Del Method Room Air 10/04/23 10:28 BMI result Body Mass Index 33.8 Elderly female Nonicteric Abdomen soft, distended, tender No respiratory distress Mild pitting edema in both extremities Results Labs 10/04/23 10:16 10/04/23 10:16 Labs: Short CBC 10/03/23 10/04/23 Range/Units 15:43 10:16 WBC 12.0 H 9.6 (4.8-10.8) X10*3/uL Hgb 13.2 11.8 L (12.0-16.0) g/dl Hct 38.7 35.2 L (37.0-47.0) % Plt Count 297 D 233 (160-400) X10*3/uL BMP 10/03/23 10/04/23 15:43 10:16 Sodium 136 137 Potassium 4.3 4.2 Chloride 103 104 Carbon Dioxide 20 L 24 BUN 30 H 39 H Creatinine 1.85 H 2.46 H Calcium 9.8 D 8.8 D Liver Function 10/03/23 Range/Units 15:43 Total Bilirubin 1.0 (0.0-1.0) mg/dL Direct Bilirubin 0.4 (0.0-0.5) mg/dL AST 34 H (5-31) U/L ALT 20 (0-31) U/L Alkaline Phosphatase 77 (39-117) U/L Albumin 3.6 (3.5-5.0) g/dL Urine 10/03/23 Range/Units 15:43 Urine Color Yellow Urine Appearance Turbid Urine pH 6.5 (5.0-9.0) Ur Specific [place] 1.015 (1.005-1.025) Urine Protein 100 (2+) H (Neg-Trace) mg/dL Urine Glucose (UA) 100 H (Negative) mg/dL Microbiology Microbiology Results: Microbiology 10/03/23 16:27 Urine clean catch - Clean Catch Midstream Urine Culture - Preliminary Culture in progress. Assessment and Plan (1) Nausea & vomiting: Qualifiers: Vomiting type: bilious vomiting Qualified Code(s): R11.14 - Bilious vomiting Status: Acute (2) Partial obstruction of colon: Status: Acute (3) Abdominal pain in female: Status: Acute (4) Mural thickening of sigmoid colon: Status: Acute (5) Diverticular disease: Status: Acute Plan Appears to have baseline benign luminal narrowing due to diverticular disease, with likely superimposed acute diverticulitis. Has been seen by surgery, and has been offered surgical options. Had a recent colonoscopy with biopsies from the area which effectively ruled out IBD or malignancy as the cause of this sigmoid narrowing. Plan: - IV hydration and monitor renal function - Consider Abx for possible acute diverticulitis - Suspect may eventually need definitive surgical management - Colonic stent not indicated for benign strictures - Can discuss utility of gastrograffin study with surgery team Thank you for allowing me to participate in her care. Please do not hesitate to reach out for any questions or concerns. Procedures Date of Service Date of Service: 10/04/23
--- NOTE | 2023-10-04 12:06 | PC.NURSE ---
patient continues to request water, admitting MD texted and will switch patient to clear liquid diet
--- NOTE | 2023-10-04 14:18 | PM.EVENT ---
Event Note Date of Service: 10/04/23 Event Note: This patient is seen and examined : Nausea vomiting seems to be improved, patient still has abdominal pain, no fever Leukocytosis improving Lab : cr 2.46 Physical exam: seems similar abd : soft, nd ,mild tenderness LLQ,bs present. assessment and plan coordinated in APCs note, Agree with the plan in addition: sepsis sec to uti vs acute diverticulitis -start ceftriaxone/flagyl seen by surgery-rec gi consult and start clear liquid diet melany -worsening -probable multifactorial ( meds -lisinopril/lasix ,dec po intake) bladder scan , renal us ,protein/cr ratio, nephro eval, added IVF d/w patient and her at bedside . Time Spent With Patient Time: Total time managing care of this patient today ____ minutes.
[2023-10-04] MEDS: ondansetron HCL 4 MG/2 ML VIAL IVPUSH (14:20)
[2023-10-04] MEDS: 0.9 % Sodium Chloride 1,000 ML 100 ML IVCONT (15:08)
[2023-10-04] MEDS: metroNIDAZOLE/NS 500 MG/100 ML PIGGYBACK 100 MG IV ×2 (15:08→21:43)
[2023-10-04 15:09] LABS: Glucose, Whole Blood 135 mg/dL (60-115)
[2023-10-04 15:09] LABS: Creatinine Urine 158.74 mg/dL; Potassium Urine Random 42.2 mmol/L; Protein/Creatinine Ratio, Ur 1.19 (<0.2); Total Protein Urine Random 189 mg/dL (<12)
[2023-10-04] MEDS: Atorvastatin Calcium 10 MG TABLET PO (16:24)
[2023-10-04] MEDS: Acetaminophen 1,000 MG/100 ML PIGGYBACK 400 MG IV (18:10)
--- NOTE | 2023-10-04 19:48 | P.CONNP_ITS ---
History of Present Illness Reason for Consult Consult date: 10/04/23 Reason for consult: FELICITA Chief Complaint Chief complaint: Nausea vomiting History of Present Illness Narrative: 78-year-old female with pertinent history of history of retroperitoneal abscess, hypothyroidism, [id number] diabetes mellitus, mood disorder, hypertension, mixed hyperlipidemia who presents to the emergency department for evaluation of abdominal pain, nausea and vomiting. Patient states his symptoms started 1 day prior to presentation. She has been having periumbilical abdominal discomfort which is constant, nonprogressive, nonradiating and without any relieving factors. She has also been having associated nausea and multiple episodes of nonbloody emesis h/o Staghorn calculus several years ago- as per family She was on ACEi and Lasix prior to admission PMFSH Past Medical History Medical History Hydroureteronephrosis Wound infection Open wound of back, complicated Cellulitis Frequency of urination Vaginal burning Vaginal itching PMB (postmenopausal bleeding) Cirrhosis of liver Does mobilize using walker PONV (postoperative nausea and vomiting) Left foot drop Fatty liver Fibromyalgia Neuropathy RBBB Cholelithiasis Staghorn calculus Renal calculus, bilateral Renal calyceal dilation determined by ultrasound UTI (urinary tract infection) Diabetes mellitus, type II Ganglion cyst Plantar fasciitis Anxiety OA (osteoarthritis) Obstructive airway disease Hypercholesterolemia Low back pain Sciatica Hypothyroidism HTN (hypertension) Primary osteoarthritis of right knee Retained ureteral stent Renal stones Staghorn calculus Perirectal abscess Family History Family History Father Alcohol dependence Mother CHF (congestive heart failure) Cancer of breast Mother No problems noted. Other Alcoholic cirrhosis Surgical History Surgical History Status post cystoscopy with ureteral stent placement History of lumbar discectomy History of lumpectomy of both breasts History of cystoscopy History of lithotripsy Hx of colonoscopy History of surgery Social History Social History Household Members: Spouse and Significant Other Housing: House Do you presently have visiting nurse or other home services: Yes Alcohol intake: never Comment: given pyridium Patient Tobacco Use Status: Former Tobacco user Tobacco use type: Cigarette Years Smoked: 27 Second Hand Smoke Exposure: No Advance Directives Date on File: 04/06/21 service: No Current occupational status: disabled Meds Allergies Allergy/AdvReac Type Severity Reaction Status Date / Time chlorpheniramine Allergy Severe HALLUCINATI Verified 10/03/23 15:30 [From TUSSIONEX] ONS escitalopram [ESCITALOPRAM] Allergy Severe DISSOCIATIVE Verified 10/03/23 15:30 REACTION fluoxetine [FLUOXETINE] Allergy Severe DISSOCIATIVE Verified 10/03/23 15:30 REACTION hydrocodone [From TUSSIONEX] Allergy Severe HALLUCINATI Verified 10/03/23 15:30 ONS ibuprofen [IBUPROFEN] Allergy Severe THROAT Verified 10/03/23 15:30 SWELLING Sulfa (Sulfonamide Allergy Severe DYSPNEA Verified 10/03/23 15:30 Antibiotics) [SULFA (SULFONAMIDE ANTIBIOTICS)] clarithromycin [From BIAXIN] Allergy Intermediate ABD.PAIN Verified 10/03/23 15:30 duloxetine [DULOXETINE] Allergy Intermediate FACIAL Verified 10/03/23 15:30 NUMBNESS erythromycin base Allergy Intermediate RASH Verified 10/03/23 15:30 [ERYTHROMYCIN BASE] Penicillins [PENICILLINS] Allergy Intermediate RASH Verified 10/03/23 15:30 tetracycline [TETRACYCLINE] Allergy Intermediate DIARRHEA Verified 10/03/23 15:30 ciprofloxacin [From CIPRO] Allergy Unknown ANAPHYLAXIS Verified 10/03/23 15:30 codeine [CODEINE] Allergy Unknown TINNITIS Verified 10/03/23 15:30 guaifenesin Allergy Unknown Unknown Verified 10/03/23 15:30 levofloxacin [From Levaquin] Allergy Unknown Unknown Verified 10/03/23 15:30 pregabalin Allergy Unknown Unknown Verified 10/03/23 15:30 Active Medications: Current Medications Acetaminophen (Acetaminophen 325 Mg Tablet) 650 mg PO Q6H PRN PRN Reason: Pain, Mild (Pain Scale 1-3), fever or headache Ascorbic Acid (Ascorbic Acid 500 Mg Tablet) 500 mg PO DAILY [facility] Atorvastatin Calcium (Atorvastatin Calcium 10 Mg Tablet) 10 mg PO DAILY@1700 [facility] Last Admin: 10/04/23 16:24 Dose: 10 mg Calcium Carbonate (Calcium Carbonate 750 Mg Tab.Chew) 750 mg PO Q4H PRN PRN Reason: Heartburn Glucose (Glucose Gel 15 Gm Gel..Gram.) 15 gm PO Q15M PRN; Protocol PRN Reason: per Hypoglycemia Standing Ord. Dextrose (D10) 250 mls @ 750 mls/hr IV Q15M PRN; Protocol PRN Reason: per Hypoglycemia Standing Ord. Ceftriaxone Sodium 1 gm/ (Sodium Chloride) 50 mls @ 100 mls/hr IV Q24H [facility] Sodium Chloride (Ns) 1,000 mls @ 100 mls/hr IVCONT .Q10H [facility] Last Admin: 10/04/23 15:08 Dose: 100 mls/hr Metronidazole (Flagyl) 500 mg in 100 mls @ 100 mls/hr IV Q8H [facility] Last Infusion: 10/04/23 16:18 Dose: Infused Insulin Human Lispro (Insulin Lispro 100 Unit/Ml 3 Ml Vial) 0 unit SUBCUT Q6H [facility]; Protocol Last Admin: 10/04/23 16:14 Dose: Not Given Levothyroxine Sodium (Levothyroxine Sodium 112 Mcg Tablet) 112 mcg PO DAILY [facility] Magnesium Hydroxide (Milk Of Magnesia 30 Ml Oral.Susp) 30 ml PO DAILY PRN PRN Reason: Constipation Melatonin (Melatonin 3 Mg Tablet) 6 mg PO BEDTIME PRN PRN Reason: Insomnia Ondansetron HCl (Ondansetron Hcl 4 Mg/2 Ml Vial) 4 mg IVPUSH Q8H PRN PRN Reason: Nausea and Vomiting Last Admin: 10/04/23 14:20 Dose: 4 mg Pyridoxine HCl (Pyridoxine Hcl (Vitamin B6) 50 Mg Tablet) 100 mg PO DAILY [facility] Sodium Chloride (0.9 % Sodium Chloride Flush 3 Ml Syringe) 3 ml IVFLUSH QSHIFT [facility] Last Admin: 10/04/23 16:14 Dose: Not Given Vitamin D (Cholecalciferol (Vitamin D3) 25 Mcg Tablet) 50 mcg PO DAILY [facility] Home Medications ?Medication ?Instructions ?Recorded ?Confirmed ?Last Taken ?Type levothyroxine 112 mcg tablet 112 mcg PO DAILY 08/28/20 10/04/23 10/03/23 History atorvastatin 10 mg tablet 1 tab PO DAILY@0 04/05/21 10/04/23 1 Day Ago History ~10/03/23 metformin 500 mg tablet,extended 1 tab PO DAILY@1700 04/06/21 10/04/23 10/03/23 History release 24 hr cholecalciferol (vitamin D3) 50 50 mcg PO DAILY 07/19/22 10/04/23 10/03/23 History mcg (2,000 unit) tablet (Vitamin D3) lisinopril 10 mg tablet 10 mg PO DAILY 07/19/22 10/04/23 10/03/23 History acetaminophen 500 mg tablet 1,000 mg PO BID PRN Pain 10/04/23 10/04/23 Unknown History ascorbic acid (vitamin C) 500 mg 500 mg PO DAILY 10/04/23 10/04/23 10/03/23 History tablet Physical Exam Vital Signs: Last Vital Signs Temp 98.1 F 10/04/23 14:59 Pulse 83 10/04/23 14:59 Resp 18 10/04/23 14:59 BP 97/56 L 10/04/23 14:59 Pulse Ox 97 10/04/23 14:59 O2 Del Method Room Air 10/04/23 14:59 BMI result Body Mass Index 33.8 Awake. Comfortable. Neck is supple. Mucosa moist. Lungs bilateral scattered rhonchi. Heart S1-S2 heard no gallop. Abdomen distended , tender Extremities no edema. No involuntary movements. No myoclonus. Results Lab Results 10/04/23 10:16 10/04/23 10:16 Lab results: Chemistry 10/03/23 10/04/23 15:43 10:16 Sodium 136 137 Potassium 4.3 4.2 Carbon Dioxide 20 L 24 BUN 30 H 39 H Creatinine 1.85 H 2.46 H Calcium 9.8 D 8.8 D Hematology 10/03/23 10/04/23 15:43 10:16 WBC 12.0 H 9.6 Hgb 13.2 11.8 L Plt Count 297 D 233 Urinalysis 10/03/23 15:43 Urine Color Yellow Urine Appearance Turbid Urine pH 6.5 Ur Specific [place] 1.015 Urine Protein 100 (2+) H Urine Glucose (UA) 100 H Urine Ketones Trace Urine Blood Moderate (2+) H Urine Nitrite Negative Ur Leukocyte Esterase Large (3+) H Urine RBC 11-20 H Urine WBC >50 H Ur Squamous Epith Cells 11-20 Hyaline Casts >20 Urine Studies 10/03/23 15:43 Urine Creatinine 158.74 Assessment and Plan (1) FELICITA (acute kidney injury): Status: Acute Plan FELICITA superimpsed on CKD FELICITA most likely due to hypoperfusion However , AGN/AIN need to be ruled out No obstruction Suggest Hold LAsix and ACEi Keep I > O Avoid hypotension Watch urine output Urine studies/ serology as ordered No indication for dialysis Procedures Date of Service Date of Service: 10/04/23
[2023-10-04 20:21] LABS: Glucose, Whole Blood 137 mg/dL (60-115)
[2023-10-04] MEDS: Promethazine HCL 25 MG/ML VIAL 12.5 MG IM (21:06)
[2023-10-04] MEDS: cefTRIAXone sodium 1 GM in 0.9 % Sodium Chloride 50 ML IV (21:06)
--- NOTE | 2023-10-04 21:43 | PM.EVENT ---
Event Note Date of Service: 10/04/23 Event Note: Blood culture with Gram-positive cocci in clusters. Adding vancomycin Time Spent With Patient Time: Total time managing care of this patient today ____ minutes.
[2023-10-04] MEDS: vancomycin/NS 2,000 MG/500 ML PLAST..BAG 250 MG IV (22:45)
[2023-10-05] MEDS: Acetaminophen 325 MG TABLET 650 MG PO ×2 (00:34→09:40)
[2023-10-05 00:55] LABS: Creatinine Urine 41.25 mg/dL; Total Protein Urine Random 19 mg/dL (<12)
[2023-10-05] MEDS: 0.9 % Sodium Chloride 1,000 ML 100 ML IVCONT ×2 (02:53→22:47)
[2023-10-05 03:03] VITALS: BP 120/61; PULSE 78; RESP 18; TEMP 36.2; O2SAT 97
[2023-10-05 03:03] LABS: Glucose, Whole Blood 98 mg/dL (60-115)
[2023-10-05] MEDS: metroNIDAZOLE/NS 500 MG/100 ML PIGGYBACK 100 MG IV ×3 (06:18→22:36)
[2023-10-05 06:50] VITALS: BP 121/58; PULSE 73; RESP 17; TEMP 36.6; O2SAT 97
[2023-10-05 07:05] LABS: Glucose, Whole Blood 107 mg/dL (60-115)
[2023-10-05 07:19] LABS: Hematocrit 35.9 % (37.0-47.0); Hemoglobin 11.5 g/dl (12.0-16.0); Mean Corpuscular Hemoglobin 30.9 pg (27.0-33.0); Mean Corpuscular Volume 96.5 fL (80.0-98.0); Mean Platelet Volume 9.5 fL (9.4-12.3); Platelet Count 238 X10*3/uL (160-400); Red Blood Count 3.72 X10*6/uL (4.20-5.50); White Blood Count 6.3 X10*3/uL (4.8-10.8)
[2023-10-05 07:24] LABS: Anion Gap 16 (12-20); Blood Urea Nitrogen 32 mg/dL (9-16); Calcium 9.2 mg/dL (8.4-10.2); Carbon Dioxide 20 mmol/L (22-29); Chloride 106 mmol/L (96-108); Creatinine Clr Calc Pharmacy 24.9; Estimated Glomerular Filt Rate 23; Glucose Random 88 mg/dL (60-115); Potassium 4.6 mmol/L (3.3-5.1); Sodium 137 mmol/L (135-145)
[2023-10-05 08:00] VITALS: BP 121/60; PULSE 73; RESP 18; TEMP 36.2; O2SAT 99
[2023-10-05] MEDS: Ascorbic Acid 500 MG TABLET PO (08:21)
[2023-10-05] MEDS: Levothyroxine Sodium 112 MCG TABLET PO (08:21)
[2023-10-05] MEDS: Cholecalciferol (Vitamin D3) 25 MCG TABLET 50 MCG PO (08:21)
[2023-10-05] MEDS: Pyridoxine HCl (Vitamin B6) 50 MG TABLET 100 MG PO (08:21)
--- NOTE | 2023-10-05 08:25 | P.PNGS_ITS ---
Subjective Subjective Date of Service: 10/05/23 <Magalys Olsen PA-C - Last Filed: 10/05/23 08:33> 10/05/23 <Marino Jimenez MD - Last Filed: 10/05/23 09:38> Interval history: No significant improvement. Persistent nausea despite antiemetics and continued upper abdominal pain. Denies flatus or BM in a couple days. <Magalys Olsen PA-C - Last Filed: 10/05/23 08:33> Physical Exam 2 Vital Signs: Vital Signs: Last Vital Signs Temp 97.1 F 10/05/23 08:00 Pulse 73 10/05/23 08:00 Resp 18 10/05/23 08:00 BP 121/60 10/05/23 08:00 Pulse Ox 99 10/05/23 08:00 O2 Del Method Room Air 10/05/23 08:00 BMI result Body Mass Index 33.8 <Magalys Olsen PA-C - Last Filed: 10/05/23 08:33> Const: General: no acute distress and alert <Magalys Olsen PA-C - Last Filed: 10/05/23 08:33> Nutritional Appearance: obese <KIKA Mari Last Filed: 10/05/23 08:33> Orientation/consciousness: patient oriented x3 <KIKA Mari Last Filed: 10/05/23 08:33> Resp: Effort & Inspection: normal respiratory effort <Magalys Olsen PA-C - Last Filed: 10/05/23 08:33> GI: Other: corpulent abdomen <Magalys Olsen PA-C - Last Filed: 10/05/23 08:33> Inspection: Yes distended <KIKA Mari Last Filed: 10/05/23 08:33> Palpation (GI): Soft to palpation, Tenderness to palpation present (GI) (upper abdomen) and no guarding <KIKA Mari Last Filed: 10/05/23 08:33> Percussion: Yes tympanic to percussion (upper abdomen ) <Magalys Olsen PA-C - Last Filed: 10/05/23 08:33> Skin: General skin exam: no rashes or lesions noted <KIKA Mari Last Filed: 10/05/23 08:33> Neuro: General: patient oriented x3 <Magalys Olsen PA-C - Last Filed: 10/05/23 08:33> Objective Data Active Medications Acetaminophen (Acetaminophen 325 Mg Tablet) 650 mg PO Q6H PRN PRN Reason: Pain, Mild (Pain Scale 1-3), fever or headache Last Admin: 10/05/23 00:34 Dose: 650 mg Documented By: RUFUS Ascorbic Acid (Ascorbic Acid 500 Mg Tablet) 500 mg PO DAILY ON LICENSE OF [facility] Last Admin: 10/05/23 08:21 Dose: 500 mg Documented By: BILL Atorvastatin Calcium (Atorvastatin Calcium 10 Mg Tablet) 10 mg PO DAILY@1700 ON LICENSE OF [facility] Last Admin: 10/04/23 16:24 Dose: 10 mg Documented By: STEFANIA Calcium Carbonate (Calcium Carbonate 750 Mg Tab.Chew) 750 mg PO Q4H PRN PRN Reason: Heartburn Glucose (Glucose Gel 15 Gm Gel..Gram.) 15 gm PO Q15M PRN; Protocol PRN Reason: per Hypoglycemia Standing Ord. Dextrose (D10) 250 mls @ 750 mls/hr IV Q15M PRN; Protocol PRN Reason: per Hypoglycemia Standing Ord. Ceftriaxone Sodium 1 gm/ (Sodium Chloride) 50 mls @ 100 mls/hr IV Q24H ON LICENSE OF [facility] Last Infusion: 10/04/23 21:44 Dose: Infused Documented By: RUFUS Sodium Chloride (Ns) 1,000 mls @ 100 mls/hr IVCONT .Q10H ON LICENSE OF [facility] Last Infusion: 10/05/23 06:22 Dose: 0 mls/hr Documented By: RUFUS Metronidazole (Flagyl) 500 mg in 100 mls @ 100 mls/hr IV Q8H ON LICENSE OF [facility] Last Infusion: 10/05/23 07:51 Dose: Infused Documented By: BILL Insulin Human Lispro (Insulin Lispro 100 Unit/Ml 3 Ml Vial) 0 unit SUBCUT Q6H ON LICENSE OF [facility]; Protocol Last Admin: 10/05/23 02:56 Dose: Not Given Documented By: RUFUS Non-Admin Reason: No Insulin Coverage Levothyroxine Sodium (Levothyroxine Sodium 112 Mcg Tablet) 112 mcg PO DAILY@0600 ON LICENSE OF [facility] Magnesium Hydroxide (Milk Of Magnesia 30 Ml Oral.Susp) 30 ml PO DAILY PRN PRN Reason: Constipation Melatonin (Melatonin 3 Mg Tablet) 6 mg PO BEDTIME PRN PRN Reason: Insomnia Ondansetron HCl (Ondansetron Hcl 4 Mg/2 Ml Vial) 4 mg IVPUSH Q8H PRN PRN Reason: Nausea and Vomiting Last Admin: 10/04/23 14:20 Dose: 4 mg Documented By: STEFANIA Pharmacy Consult (Consult Rx Vancomycin Dosing) 1 each MISCELLANE DAILY PRN PRN Reason: Consult order Pyridoxine HCl (Pyridoxine Hcl (Vitamin B6) 50 Mg Tablet) 100 mg PO DAILY ON LICENSE OF [facility] Last Admin: 10/05/23 08:21 Dose: 100 mg Documented By: BILL Sodium Chloride (0.9 % Sodium Chloride Flush 3 Ml Syringe) 3 ml IVFLUSH QSHIFT ON LICENSE OF [facility] Last Admin: 10/05/23 08:18 Dose: Not Given Documented By: BILL Non-Admin Reason: IV Running Vitamin D (Cholecalciferol (Vitamin D3) 25 Mcg Tablet) 50 mcg PO DAILY ON LICENSE OF [facility] Last Admin: 10/05/23 08:21 Dose: 50 mcg Documented By: BILL <Magalys Olsen PA-C - Last Filed: 10/05/23 08:33> Labs CBC & Chem 7: 10/05/23 05:40 10/05/23 05:40 <Magalys Olsen PA-C - Last Filed: 10/05/23 08:33> Labs: Laboratory Results - last 24 hr 10/03/23 10/04/23 10/04/23 15:43 09:58 10:16 MCV 94.6 MCH 31.7 MCHC 33.5 RDW 16.2 H Plt Count 233 MPV 9.1 L Immature Gran % (Auto) 1.6 H Neut % (Auto) 70.9 Lymph % (Auto) 17.4 L [place] % (Auto) 8.9 Eos % (Auto) 0.9 Baso % (Auto) 0.3 Lymph # (Auto) 1.7 [place] # (Auto) 0.9 Eos # (Auto) 0.1 Baso # (Auto) 0.0 Abs Immat Gran (auto) 0.15 H Absolute Neuts (auto) 6.8 Absolute Nucleated RBC 0.000 Nucleated RBC % (auto) 0.0 Anion Gap 13 Estim Creat Clear Calc 21.0 Estimated GFR 19 POC Glucose 128 H Random Glucose 130 H Calcium 8.8 D U Random Total Protein 189 H Ur Random Sodium 61.0 Ur Random Potassium 42.2 Ur Random Chloride 41.0 Urine Creatinine 158.74 Protein/Creatinin Ratio 1.19 H 10/04/23 10/04/23 10/05/23 15:06 19:58 00:27 MCV MCH MCHC RDW Plt Count MPV Immature Gran % (Auto) Neut % (Auto) Lymph % (Auto) [place] % (Auto) Eos % (Auto) Baso % (Auto) Lymph # (Auto) [place] # (Auto) Eos # (Auto) Baso # (Auto) Abs Immat Gran (auto) Absolute Neuts (auto) Absolute Nucleated RBC Nucleated RBC % (auto) Anion Gap Estim Creat Clear Calc Estimated GFR POC Glucose 135 H 137 H Random Glucose Calcium U Random Total Protein 19 H Ur Random Sodium 55.0 Ur Random Potassium Ur Random Chloride Urine Creatinine 41.25 Protein/Creatinin Ratio 10/05/23 10/05/23 10/05/23 02:55 05:40 06:50 MCV 96.5 MCH 30.9 MCHC 32.0 RDW 16.0 Plt Count 238 MPV 9.5 Immature Gran % (Auto) Neut % (Auto) Lymph % (Auto) [place] % (Auto) Eos % (Auto) Baso % (Auto) Lymph # (Auto) [place] # (Auto) Eos # (Auto) Baso # (Auto) Abs Immat Gran (auto) Absolute Neuts (auto) Absolute Nucleated RBC 0.000 Nucleated RBC % (auto) 0.0 Anion Gap 16 Estim Creat Clear Calc 24.9 Estimated GFR 23 POC Glucose 98 107 Random Glucose 88 Calcium 9.2 U Random Total Protein Ur Random Sodium Ur Random Potassium Ur Random Chloride Urine Creatinine Protein/Creatinin Ratio <Magalys Olsen PA-C - Last Filed: 10/05/23 08:33> Microbiology Microbiology Results: Microbiology 10/03/23 23:48 Blood Culture - Preliminary Blood - Venous No growth after 24 hours. 10/03/23 23:50 Blood Culture - Preliminary Blood - Venous Prelim: GPC Gram Stain only 10/03/23 16:27 Urine Culture - Preliminary Urine clean catch - Clean Catch Midstream Culture in progress. <Magalys Olsen PA-C - Last Filed: 10/05/23 08:33> Procedures Date of Service Date of Service: 10/05/23 <Magalys Olsen PA-C - Last Filed: 10/05/23 08:33> 10/05/23 <Marino Jimenez MD - Last Filed: 10/05/23 09:38> Progress Note: A&P Assessment and plan (1) Diverticular disease: Status: Acute <Magalys Olsen PA-C - Last Filed: 10/05/23 08:33> (2) Partial obstruction of colon: Status: Acute <Magalys Olsen PA-C - Last Filed: 10/05/23 08:33> Assessment and Plan: 78 year old female admitted with sigmoid stricture likely secondary to diverticulitis. No improvement in symptoms or evidence of GI function. Discussed if she continues to have no improvement in the next day or so, would need to proceed with sigmoid resection, end colostomy. She again stated she would like to avoid this. Can continue clear liquids as tolerated, PRN analgesics. Encouraged OOB. <Magalys Olsen PA-C - Last Filed: 10/05/23 08:33> 78 year old female admitted with sigmoid stricture likely secondary to diverticulitis. No improvement in symptoms or evidence of GI function. Discussed if she continues to have no improvement in the next day or so, would need to proceed with sigmoid resection, end colostomy. She again stated she would like to avoid this. Can continue clear liquids as tolerated, PRN analgesics. Encouraged OOB. Patient seen and examined independently. Not much improvement in the last 24 hours with continued nausea and no flatus/BM. Agree with the above assessment and plan. Discussed Gastrograffin enema with Dr. Jackson which may be diagnostic and therapeutic. Ultimately, patient will benefit from sigmoid colectomy, ideally as an elective procedure after a bowel prep. However if she does not improve, the next best option would be a Vicki's procedure. <Marino Jimenez MD - Last Filed: 10/05/23 09:38> Time Spent With Patient Time: Total time managing care of this patient today ____ minutes. <Magalys Olsen PA-C - Last Filed: 10/05/23 08:33> Quality Stroke Does the patient have a stroke diagnosis?: No <Magalys Olsen PA-C - Last Filed: 10/05/23 08:33> VTE Prior VTE?: No <Magalys Olsen PA-C - Last Filed: 10/05/23 08:33> VTE Risk Level:: Medical - moderate - high <Magalys Olsen PA-C - Last Filed: 10/05/23 08:33> VTE Device Contraindication: N/A - Device Ordered <Magalys Olsen PA-C - Last Filed: 10/05/23 08:33> VTE Drug Contraindication: Treatment Not Indicated <Magalys Olsen PA-C - Last Filed: 10/05/23 08:33>
--- NOTE | 2023-10-05 08:41 | PHA.PROG ---
Admission Date/Time: October 04, 2023 03:16 Indication: Bacteremia Weight in k.358 kg Adjusted body weight in Kg: [place] body weight in Kg: Obesity Dosing Indication % IBW: BMI33.8 Serum Creatinine - Last 168 Hours 10/03/23 10/04/23 10/05/23 15:43 10:16 05:40 Creatinine 1.85 H 2.46 H 2.08 H Estimated CrCl and GFR - Last 168 Hours 10/03/23 10/04/23 10/05/23 15:43 10:16 05:40 Estim Creat Clear Calc 28.0 21.0 24.9 Estimated GFR 27 19 23 Vancomycin Loading Dose: 2000 x1 Current Vancomycin Dosing Regimen: 750 Q24H Vancomycin Monitoring using AUC goal of 400 - 600 range with trough as surrogate marker: 474 Date and Time for next Vancomycin Level to be drawn: 10/05 @2100 Pharmacist Comments on Vancomycin Plan: predicted trough 16.3. Treating for bacteremia. patient's renal function unstable, giving one -750mg dose and checking trough after to be cautious. Vancomycin dosing will take advantage of [employer] as a clinical decision support tool that uses Bayesian modeling to calculate individual patient's pharmacokinetic parameters and forecast the patient's drug concentration time course with the target goal AUC 24 range of 400 - 600 mg/L/hr.
--- NOTE | 2023-10-05 09:33 | P.PNIM_ITS ---
Subjective Subjective Date of Service: 10/05/23 Interval History: no BM, minimal appetite Physical Exam 2 Vital Signs: Vital Signs: Last Vital Signs Temp 97.1 F 10/05/23 08:00 Pulse 73 10/05/23 08:00 Resp 18 10/05/23 08:00 BP 121/60 10/05/23 08:00 Pulse Ox 99 10/05/23 08:00 O2 Del Method Room Air 10/05/23 08:00 BMI result Body Mass Index 33.8 Const: General: no acute distress and alert Nutritional Appearance: obese Orientation/consciousness: patient oriented x3 Resp: Effort & Inspection: normal respiratory effort GI: Other: corpulent abdomen Inspection: Yes distended Palpation (GI): Soft to palpation, Tenderness to palpation present (GI) (upper abdomen) and no guarding Percussion: Yes tympanic to percussion (upper abdomen ) Skin: General skin exam: no rashes or lesions noted Neuro: General: patient oriented x3 Objective Data Active Medications Acetaminophen (Acetaminophen 325 Mg Tablet) 650 mg PO Q6H PRN PRN Reason: Pain, Mild (Pain Scale 1-3), fever or headache Last Admin: 10/05/23 00:34 Dose: 650 mg Documented By: RUFUS Ascorbic Acid (Ascorbic Acid 500 Mg Tablet) 500 mg PO DAILY [facility] Last Admin: 10/05/23 08:21 Dose: 500 mg Documented By: BILL Atorvastatin Calcium (Atorvastatin Calcium 10 Mg Tablet) 10 mg PO DAILY@1700 [facility] Last Admin: 10/04/23 16:24 Dose: 10 mg Documented By: STEFANIA Calcium Carbonate (Calcium Carbonate 750 Mg Tab.Chew) 750 mg PO Q4H PRN PRN Reason: Heartburn Glucose (Glucose Gel 15 Gm Gel..Gram.) 15 gm PO Q15M PRN; Protocol PRN Reason: per Hypoglycemia Standing Ord. Dextrose (D10) 250 mls @ 750 mls/hr IV Q15M PRN; Protocol PRN Reason: per Hypoglycemia Standing Ord. Ceftriaxone Sodium 1 gm/ (Sodium Chloride) 50 mls @ 100 mls/hr IV Q24H [facility] Last Infusion: 10/04/23 21:44 Dose: Infused Documented By: RUFUS Sodium Chloride (Ns) 1,000 mls @ 100 mls/hr IVCONT .Q10H [facility] Last Infusion: 10/05/23 06:22 Dose: 0 mls/hr Documented By: RUFUS Metronidazole (Flagyl) 500 mg in 100 mls @ 100 mls/hr IV Q8H [facility] Last Infusion: 10/05/23 07:51 Dose: Infused Documented By: BILL Vancomycin HCl 750 mg/ Sodium (Chloride) 265 mls @ 265 mls/hr IV Q24H [facility] Insulin Human Lispro (Insulin Lispro 100 Unit/Ml 3 Ml Vial) 0 unit SUBCUT Q6H [facility]; Protocol Last Admin: 10/05/23 02:56 Dose: Not Given Documented By: RUFUS Non-Admin Reason: No Insulin Coverage Levothyroxine Sodium (Levothyroxine Sodium 112 Mcg Tablet) 112 mcg PO DAILY@0600 [facility] Magnesium Hydroxide (Milk Of Magnesia 30 Ml Oral.Susp) 30 ml PO DAILY PRN PRN Reason: Constipation Melatonin (Melatonin 3 Mg Tablet) 6 mg PO BEDTIME PRN PRN Reason: Insomnia Morphine Sulfate (Morphine Sulfate 4 Mg/Ml Cartridge) 3 mg IVPUSH Q4H PRN; Protocol PRN Reason: Pain, Severe (Pain Scale 7-10) Ondansetron HCl (Ondansetron Hcl 4 Mg/2 Ml Vial) 4 mg IVPUSH Q8H PRN PRN Reason: Nausea and Vomiting Last Admin: 10/04/23 14:20 Dose: 4 mg Documented By: STEFANIA Oxycodone HCl (Oxycodone Hcl Immed Release 5 Mg Tablet) 5 mg PO Q4H PRN PRN Reason: Pain, Moderate(Pain Scale 4-6) Pharmacy Consult (Consult Rx Vancomycin Dosing) 1 each MISCELLANE DAILY PRN PRN Reason: Consult order Pyridoxine HCl (Pyridoxine Hcl (Vitamin B6) 50 Mg Tablet) 100 mg PO DAILY [facility] Last Admin: 10/05/23 08:21 Dose: 100 mg Documented By: BILL Sodium Chloride (0.9 % Sodium Chloride Flush 3 Ml Syringe) 3 ml IVFLUSH QSHIFT [facility] Last Admin: 10/05/23 08:18 Dose: Not Given Documented By: BILL Non-Admin Reason: IV Running Vitamin D (Cholecalciferol (Vitamin D3) 25 Mcg Tablet) 50 mcg PO DAILY [facility] Last Admin: 10/05/23 08:21 Dose: 50 mcg Documented By: BILL Labs 10/05/23 05:40 10/05/23 05:40 Labs: Laboratory Results - last 24 hr 10/03/23 10/04/23 10/04/23 15:43 09:58 10:16 MCV 94.6 MCH 31.7 MCHC 33.5 RDW 16.2 H Plt Count 233 MPV 9.1 L Immature Gran % (Auto) 1.6 H Neut % (Auto) 70.9 Lymph % (Auto) 17.4 L [place] % (Auto) 8.9 Eos % (Auto) 0.9 Baso % (Auto) 0.3 Lymph # (Auto) 1.7 [place] # (Auto) 0.9 Eos # (Auto) 0.1 Baso # (Auto) 0.0 Abs Immat Gran (auto) 0.15 H Absolute Neuts (auto) 6.8 Absolute Nucleated RBC 0.000 Nucleated RBC % (auto) 0.0 Anion Gap 13 Estim Creat Clear Calc 21.0 Estimated GFR 19 POC Glucose 128 H Random Glucose 130 H Calcium 8.8 D U Random Total Protein 189 H Ur Random Sodium 61.0 Ur Random Potassium 42.2 Ur Random Chloride 41.0 Urine Creatinine 158.74 Protein/Creatinin Ratio 1.19 H 10/04/23 10/04/23 10/05/23 15:06 19:58 00:27 MCV MCH MCHC RDW Plt Count MPV Immature Gran % (Auto) Neut % (Auto) Lymph % (Auto) [place] % (Auto) Eos % (Auto) Baso % (Auto) Lymph # (Auto) [place] # (Auto) Eos # (Auto) Baso # (Auto) Abs Immat Gran (auto) Absolute Neuts (auto) Absolute Nucleated RBC Nucleated RBC % (auto) Anion Gap Estim Creat Clear Calc Estimated GFR POC Glucose 135 H 137 H Random Glucose Calcium U Random Total Protein 19 H Ur Random Sodium 55.0 Ur Random Potassium Ur Random Chloride Urine Creatinine 41.25 Protein/Creatinin Ratio 10/05/23 10/05/23 10/05/23 02:55 05:40 06:50 MCV 96.5 MCH 30.9 MCHC 32.0 RDW 16.0 Plt Count 238 MPV 9.5 Immature Gran % (Auto) Neut % (Auto) Lymph % (Auto) [place] % (Auto) Eos % (Auto) Baso % (Auto) Lymph # (Auto) [place] # (Auto) Eos # (Auto) Baso # (Auto) Abs Immat Gran (auto) Absolute Neuts (auto) Absolute Nucleated RBC 0.000 Nucleated RBC % (auto) 0.0 Anion Gap 16 Estim Creat Clear Calc 24.9 Estimated GFR 23 POC Glucose 98 107 Random Glucose 88 Calcium 9.2 U Random Total Protein Ur Random Sodium Ur Random Potassium Ur Random Chloride Urine Creatinine Protein/Creatinin Ratio Microbiology Microbiology Results: Microbiology 10/03/23 16:27 Urine Culture - Final Urine clean catch - Clean Catch Midstream 10/03/23 23:48 Blood Culture - Preliminary Blood - Venous No growth after 24 hours. 10/03/23 23:50 Blood Culture - Preliminary Blood - Venous Prelim: GPC Gram Stain only Assessment and Plan (1) Mural thickening of sigmoid colon: Status: Acute Plan 78F PMH retroperitoneal abscess, hypothyroidism, [id number] diabetes mellitus, mood disorder who presented to the emergency department for evaluation of fevers. 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 The contrast then tracks down to the right along the iliopsoas bursa) d/w with urology and Id-receomended to switch to po ceftin/flagyl for 10 days 1/2 with gpc in clusters, suspect contaminant, but conitnue coverage until speciation staghorn calculus- present prior to admission CT abdomen/pelvis shows 1.9 cm calculus in the mid right kidney and partial staghorn calculus in the lower pole collecting system per Urology-s/p cystoscopy/stent placement sigmoid stricture, colonic obstruction - no bm, difficulty tolerating po, previous biopsy negative for ibd or malignancy, possibly due to diverticulitis continue conservative care with iv abx for now, patient hesitant for surgery, but if no improvement plan to proceed with sigmoid resection/colostomy FELICITA improving, continue ivf, lasix and lisinopril held diabetes mellitus sliding scale Hypothyroidism continue levothyroxine. Essential hypertension Lasix, lisinopril held for felicita HLD continue statin obesity weight loss recommended DVT prophylaxis - hep sq full code reason for continued hospitalization:not tolerating po Quality Stroke Does the patient have a stroke diagnosis?: No VTE Prior VTE?: No VTE Risk Level:: Medical - moderate - high VTE Device Contraindication: N/A - Device Ordered VTE Drug Contraindication: Treatment Not Indicated
[2023-10-05] MEDS: oxyCODONE HCl Immed Release 5 MG TABLET PO ×3 (09:38→22:36)
[2023-10-05 09:48] LABS: Glucose, Whole Blood 120 mg/dL (60-115)
[2023-10-05] MEDS: Heparin Sodium,Porcine 5,000 UNIT/ML VIAL 5000 UNIT SUBCUT ×2 (09:50→17:28)
--- NOTE | 2023-10-05 13:20 | MHC.CM.PN ---
PT LIVES WITH [facility]E AND HCP PT IS INDEPENDENT HAS A RIDE HOME DC PLAN HOME NO SERVICES
[2023-10-05 15:04] VITALS: BP 145/68; PULSE 81; RESP 16; TEMP 36; O2SAT 98
--- NOTE | 2023-10-05 16:02 | HO.WOUND ---
Wound Consult: Initial 78yr old?admitted to [facility] [place]/04[facility]23 - See progress notes and H&P for detailed history.? Wound consult placed for Left Great Toe wound.? Patient agreeable to assessment and photo documentation.? Left Great Toe Etiology: ?dry stable scab ?Present on Admission Wound Bed: one adherent stitch noted - no able to be removed adherent into scab Drainage / Odor: dried Edges: ? unclear Angeli wound: intact dry skin? No Induration, Fluctuance or Warmth noted Pain: tender as Left great toe is fractured Goals of Treatment: ? betadine to keep scab stable Recommendations: 1. Left great Toe - paint with Betadine cover with dry gauze, change daily. Re-consult wound care Nurse for wound deterioration or wound changes.
[2023-10-05 16:48] LABS: Glucose, Whole Blood 108 mg/dL (60-115)
[2023-10-05] MEDS: 0.9 % Sodium Chloride Flush 3 ML SYRINGE IVFLUSH (17:27)
[2023-10-05] MEDS: Atorvastatin Calcium 10 MG TABLET PO (17:28)
[2023-10-05 17:40] VITALS: BP 140/66; PULSE 74
[2023-10-05 19:18] VITALS: BP 131/62; PULSE 79; RESP 20; TEMP 36.4; O2SAT 99
--- NOTE | 2023-10-05 19:24 | PC.NURSE ---
[id number]; Patient alert and orientated, Provider Nicki notified of BP of 145/68, rechecked blood pressure and it was 140/66, provider Nicki was okay with BP. NPO midnight- patient made aware
[2023-10-05] MEDS: cefTRIAXone sodium 1 GM in 0.9 % Sodium Chloride 50 ML IV (21:04)
[2023-10-05 21:39] LABS: Glucose, Whole Blood 77 mg/dL (60-115)
[2023-10-05] MEDS: vancomycin HCL 750 MG in 0.9 % Sodium Chloride 250 ML 265 MG IV (23:49)
[2023-10-06] VITALS (24 sets, daily range): BP systolic 83–139; BP diastolic 26–66; PULSE 68–78; RESP 12–25; TEMP 36.1–36.8; O2SAT 95–100
[2023-10-06] MEDS: Heparin Sodium,Porcine 5,000 UNIT/ML VIAL 5000 UNIT SUBCUT (00:51)
[2023-10-06 02:28] LABS: Glucose, Whole Blood 97 mg/dL (60-115)
[2023-10-06] MEDS: metroNIDAZOLE/NS 500 MG/100 ML PIGGYBACK 100 MG IV ×3 (05:39→21:32)
[2023-10-06 06:25] LABS: Hematocrit 32.6 % (37.0-47.0); Hemoglobin 10.5 g/dl (12.0-16.0); Mean Corpuscular HGB Conc 32.2 g/dl (31.0-35.0); Mean Corpuscular Hemoglobin 31.3 pg (27.0-33.0); Mean Corpuscular Volume 97.3 fL (80.0-98.0); Mean Platelet Volume 9.3 fL (9.4-12.3); Platelet Count 189 X10*3/uL (160-400); Red Blood Count 3.35 X10*6/uL (4.20-5.50); Red Cell Distribution Width 16.3 % (11.0-16.0)
[2023-10-06 06:50] LABS: Anion Gap 13 (12-20); Blood Urea Nitrogen 21 mg/dL (9-16); Calcium 8.2 mg/dL (8.4-10.2); Carbon Dioxide 21 mmol/L (22-29); Chloride 109 mmol/L (96-108); Creatinine Clr Calc Pharmacy 36.2; Estimated Glomerular Filt Rate 36; Glucose Fasting 79 mg/dL (60-99); Potassium 4.1 mmol/L (3.3-5.1); Sodium 139 mmol/L (135-145)
[2023-10-06] MEDS: Dextrose 5 % and 0.45 % NaCl 1,000 ML 80 ML IVCONT (07:34)
--- NOTE | 2023-10-06 08:39 | P.PNGS_ITS ---
Subjective Subjective Date of Service: 10/06/23 <Magalys Olsen PA-C - Last Filed: 10/06/23 08:43> 10/06/23 <Marino Jimenez MD - Last Filed: 10/06/23 09:12> Interval history: Continues to have nausea, abd pain. No significant flatus or bowel movement in a few days. <Magalys Olsen PA-C - Last Filed: 10/06/23 08:43> Physical Exam 2 Vital Signs: Vital Signs: Last Vital Signs Temp 96.9 F 10/06/23 07:45 Pulse 71 10/06/23 07:45 Resp 18 10/06/23 07:45 BP 127/58 L 10/06/23 07:45 Pulse Ox 99 10/06/23 07:45 O2 Del Method Room Air 10/06/23 07:45 BMI result Body Mass Index 33.8 <Magalys Olsen PA-C - Last Filed: 10/06/23 08:43> Const: General: comfortable, no acute distress and alert <Magalys Olsen PA-C - Last Filed: 10/06/23 08:43> Orientation/consciousness: patient oriented x3 <KIKA Mari Last Filed: 10/06/23 08:43> Resp: Effort & Inspection: normal respiratory effort <KIKA Mari Last Filed: 10/06/23 08:43> GI: Inspection: Yes distended <Magalys Olsen PA-C - Last Filed: 10/06/23 08:43> Palpation (GI): Tenderness to palpation present (GI) (upper abdomen, LLQ) and no guarding <Magalys Olsen PA-C - Last Filed: 10/06/23 08:43> Percussion: Yes tympanic to percussion <KIKA Mari Last Filed: 10/06/23 08:43> Skin: General skin exam: no rashes or lesions noted <KIKA Mari Last Filed: 10/06/23 08:43> Neuro: General: patient oriented x3 <Magalys Olsen PA-C - Last Filed: 10/06/23 08:43> Objective Data Active Medications Acetaminophen (Acetaminophen 325 Mg Tablet) 650 mg PO Q6H PRN PRN Reason: Pain, Mild (Pain Scale 1-3), fever or headache Last Admin: 10/05/23 09:40 Dose: 650 mg Documented By: BILL Ascorbic Acid (Ascorbic Acid 500 Mg Tablet) 500 mg PO DAILY [facility] Last Admin: 10/06/23 07:52 Dose: Not Given Documented By: MANAN Non-Admin Reason: held per Magalys Atorvastatin Calcium (Atorvastatin Calcium 10 Mg Tablet) 10 mg PO DAILY@1700 [facility] Last Admin: 10/05/23 17:28 Dose: 10 mg Documented By: FRITZ-LANE Calcium Carbonate (Calcium Carbonate 750 Mg Tab.Chew) 750 mg PO Q4H PRN PRN Reason: Heartburn Glucose (Glucose Gel 15 Gm Gel..Gram.) 15 gm PO Q15M PRN; Protocol PRN Reason: per Hypoglycemia Standing Ord. Dextrose (D10) 250 mls @ 750 mls/hr IV Q15M PRN; Protocol PRN Reason: per Hypoglycemia Standing Ord. Ceftriaxone Sodium 1 gm/ (Sodium Chloride) 50 mls @ 100 mls/hr IV Q24H [facility] Last Infusion: 10/05/23 21:31 Dose: Infused Documented By: JESSICA Sodium Chloride (Ns) 1,000 mls @ 100 mls/hr IVCONT .Q10H [facility] Last Admin: 10/06/23 07:39 Dose: Not Given Documented By: MANAN Non-Admin Reason: fluids changed by dr. Caceres Metronidazole (Flagyl) 500 mg in 100 mls @ 100 mls/hr IV Q8H [facility] Last Infusion: 10/06/23 07:38 Dose: Infused Documented By: MANAN Vancomycin HCl 750 mg/ Sodium (Chloride) 265 mls @ 265 mls/hr IV Q24H [facility] Last Infusion: 10/06/23 00:49 Dose: Infused Documented By: JESSICA Dextrose/Sodium Chloride (D51/2ns) 1,000 mls @ 80 mls/hr IVCONT .[id number] [facility] Last Admin: 10/06/23 07:34 Dose: 80 mls/hr Documented By: MANAN Insulin Human Lispro (Insulin Lispro 100 Unit/Ml 3 Ml Vial) 0 unit SUBCUT Q6H [facility]; Protocol Last Admin: 10/06/23 02:50 Dose: Not Given Documented By: JESSICA Non-Admin Reason: No Insulin Coverage Levothyroxine Sodium (Levothyroxine Sodium 112 Mcg Tablet) 112 mcg PO DAILY@0600 [facility] Last Admin: 10/06/23 05:38 Dose: Not Given Documented By: JESSICA Non-Admin Reason: NPO Magnesium Hydroxide (Milk Of Magnesia 30 Ml Oral.Susp) 30 ml PO DAILY PRN PRN Reason: Constipation Melatonin (Melatonin 3 Mg Tablet) 6 mg PO BEDTIME PRN PRN Reason: Insomnia Morphine Sulfate (Morphine Sulfate 4 Mg/Ml Cartridge) 3 mg IVPUSH Q4H PRN; Protocol PRN Reason: Pain, Severe (Pain Scale 7-10) Ondansetron HCl (Ondansetron Hcl 4 Mg/2 Ml Vial) 4 mg IVPUSH Q8H PRN PRN Reason: Nausea and Vomiting Last Admin: 10/04/23 14:20 Dose: 4 mg Documented By: STEFANIA Oxycodone HCl (Oxycodone Hcl Immed Release 5 Mg Tablet) 5 mg PO Q4H PRN PRN Reason: Pain, Moderate(Pain Scale 4-6) Last Admin: 10/05/23 22:36 Dose: 5 mg Documented By: JESSICA Pharmacy Consult (Consult Rx Vancomycin Dosing) 1 each MISCELLANE DAILY PRN PRN Reason: Consult order Pyridoxine HCl (Pyridoxine Hcl (Vitamin B6) 50 Mg Tablet) 100 mg PO DAILY [facility] Last Admin: 10/06/23 07:52 Dose: Not Given Documented By: MANAN Non-Admin Reason: held per JOSE ROBERTO Dowell Sodium Chloride (0.9 % Sodium Chloride Flush 3 Ml Syringe) 3 ml IVFLUSH QSHIFT [facility] Last Admin: 10/06/23 07:39 Dose: Not Given Documented By: MANAN Non-[place] Reason: IV Running Vitamin D (Cholecalciferol (Vitamin D3) 25 Mcg Tablet) 50 mcg PO DAILY [facility] Last Admin: 10/06/23 07:52 Dose: Not Given Documented By: MANAN Non-Admin Reason: held per Magalys Olsen PA-C - Last Filed: 10/06/23 08:43> Labs CBC & Chem 7: 10/06/23 05:36 10/06/23 05:36 <Magalys Olsen PA-C - Last Filed: 10/06/23 08:43> Labs: Laboratory Results - last 24 hr 10/05/23 10/05/23 10/05/23 09:43 16:44 21:29 MCV MCH MCHC RDW Plt Count MPV Absolute Nucleated RBC Nucleated RBC % (auto) Anion Gap Estim Creat Clear Calc Estimated GFR POC Glucose 120 H 108 77 Fasting Glucose Calcium Blood Type Antibody Screen 10/06/23 10/06/23 10/06/23 02:21 05:36 07:43 MCV 97.3 MCH 31.3 MCHC 32.2 RDW 16.3 H Plt Count 189 MPV 9.3 L Absolute Nucleated RBC 0.000 Nucleated RBC % (auto) 0.0 Anion Gap 13 Estim Creat Clear Calc 36.2 Estimated GFR 36 POC Glucose 97 Fasting Glucose 79 Calcium 8.2 L D Blood Type O Positive Antibody Screen NEGATIVE <Magalys Olsen PA-C - Last Filed: 10/06/23 08:43> Microbiology Microbiology Results: Microbiology 10/03/23 23:48 Blood Culture - Preliminary Blood - Venous No growth after 48 hours. 10/03/23 23:50 Blood Culture - Preliminary Blood - Venous Gram positive cocci 10/03/23 16:27 Urine Culture - Final Urine clean catch - Clean Catch Midstream <Magalys Olsen PA-C - Last Filed: 10/06/23 08:43> Procedures Date of Service Date of Service: 10/06/23 <Magalys Olsen PA-C - Last Filed: 10/06/23 08:43> 10/06/23 <Marino Jimenez MD - Last Filed: 10/06/23 09:12> Progress Note: A&P Assessment and plan (1) Partial obstruction of colon: Status: Acute <Magalys Olsen PA-C - Last Filed: 10/06/23 08:43> (2) Diverticular disease: Status: Acute <Magalys Olsen PA-C - Last Filed: 10/06/23 08:43> Assessment and Plan: 78 year old female admitted with sigmoid stricture likely secondary to diverticulitis. No improvement in symptoms and she is increasingly distended on exam this morning, more tender. Recommended proceeding with jacquie procedure today. Risks and benefits discussed with the patient including infection, bleeding, poor healing, risks to surrounding structures like ureter or vasculature. She is in agreement. She has been NPO. She has been added onto the OR schedule for today. <Magalys Olsen PA-C - Last Filed: 10/06/23 08:43> 78 year old female admitted with sigmoid stricture likely secondary to diverticulitis. No improvement in symptoms and she is increasingly distended on exam this morning, more tender. Recommended proceeding with jacquie procedure today. Risks and benefits discussed with the patient including infection, bleeding, poor healing, risks to surrounding structures like ureter or vasculature. She is in agreement. She has been NPO. She has been added onto the OR schedule for today. Patient seen and examined independently and I concur with the above assessment and plan. She has not progressed and continues to be markedly distended. I once again discussed the options of continued observation verses Jacquie procedure to resect the obstructing sigmoid colon perform a temporary descending colostomy. After discussion of the procedure, risks, and alternatives, she consents to the sigmoid colectomy with end-colostomy (Jacquie procedure). She has been added onto the operative schedule for today. <Marino Jimenez MD - Last Filed: 10/06/23 09:12> Time Spent With Patient Time: Total time managing care of this patient today ____ minutes. <Magalys Olsen PA-C - Last Filed: 10/06/23 08:43> Quality Stroke Does the patient have a stroke diagnosis?: No <Magalys Olsen PA-C - Last Filed: 10/06/23 08:43> VTE Prior VTE?: No <KIKA Mari Last Filed: 10/06/23 08:43> VTE Risk Level:: Medical - moderate - high <KIKA Mari Last Filed: 10/06/23 08:43> VTE Device Contraindication: N/A - Device Ordered <Magalys Olsen PA-C - Last Filed: 10/06/23 08:43> VTE Drug Contraindication: Treatment Not Indicated <Magalys Olsen PA-C - Last Filed: 10/06/23 08:43>
--- NOTE | 2023-10-06 08:49 | P.PNIM_ITS ---
Subjective Subjective Date of Service: 10/06/23 Interval History: no BM, minimal appetite Physical Exam 2 Vital Signs: Vital Signs: Last Vital Signs Temp 96.9 F 10/06/23 07:45 Pulse 71 10/06/23 07:45 Resp 18 10/06/23 07:45 BP 127/58 L 10/06/23 07:45 Pulse Ox 99 10/06/23 07:45 O2 Del Method Room Air 10/06/23 07:45 BMI result Body Mass Index 33.8 Const: General: comfortable, no acute distress and alert O rientation/consciousness: patient oriented x3 Resp: Effort & Inspection: normal respiratory effort GI: Inspection: Yes distended Palpation (GI): Tenderness to palpation present (GI) (upper abdomen, LLQ) and no guarding Percussion: Yes tympanic to percussion Skin: General skin exam: no rashes or lesions noted Neuro: General: patient oriented x3 Objective Data Active Medications Acetaminophen (Acetaminophen 325 Mg Tablet) 650 mg PO Q6H PRN PRN Reason: Pain, Mild (Pain Scale 1-3), fever or headache Last Admin: 10/05/23 09:40 Dose: 650 mg Documented By: BILL Ascorbic Acid (Ascorbic Acid 500 Mg Tablet) 500 mg PO DAILY [facility] Last Admin: 10/06/23 07:52 Dose: Not Given Documented By: MANAN Non-Admin Reason: held per Magalys Atorvastatin Calcium (Atorvastatin Calcium 10 Mg Tablet) 10 mg PO DAILY@1700 [facility] Last Admin: 10/05/23 17:28 Dose: 10 mg Documented By: ANTONIO Calcium Carbonate (Calcium Carbonate 750 Mg Tab.Chew) 750 mg PO Q4H PRN PRN Reason: Heartburn Glucose (Glucose Gel 15 Gm Gel..Gram.) 15 gm PO Q15M PRN; Protocol PRN Reason: per Hypoglycemia Standing Ord. Dextrose (D10) 250 mls @ 750 mls/hr IV Q15M PRN; Protocol PRN Reason: per Hypoglycemia Standing Ord. Ceftriaxone Sodium 1 gm/ (Sodium Chloride) 50 mls @ 100 mls/hr IV Q24H [facility] Last Infusion: 10/05/23 21:31 Dose: Infused Documented By: JESSICA Sodium Chloride (Ns) 1,000 mls @ 100 mls/hr IVCONT .Q10H [facility] Last Admin: 10/06/23 07:39 Dose: Not Given Documented By: MANAN Non-Admin Reason: fluids changed by dr. Caceres Metronidazole (Flagyl) 500 mg in 100 mls @ 100 mls/hr IV Q8H [facility] Last Infusion: 10/06/23 07:38 Dose: Infused Documented By: MANAN Vancomycin HCl 750 mg/ Sodium (Chloride) 265 mls @ 265 mls/hr IV Q24H [facility] Last Infusion: 10/06/23 00:49 Dose: Infused Documented By: JESSICA Dextrose/Sodium Chloride (D51/2ns) 1,000 mls @ 80 mls/hr IVCONT .[id number] [facility] Last Admin: 10/06/23 07:34 Dose: 80 mls/hr Documented By: MANAN Insulin Human Lispro (Insulin Lispro 100 Unit/Ml 3 Ml Vial) 0 unit SUBCUT Q6H [facility]; Protocol Last Admin: 10/06/23 02:50 Dose: Not Given Documented By: JESSICA Non-Admin Reason: No Insulin Coverage Levothyroxine Sodium (Levothyroxine Sodium 112 Mcg Tablet) 112 mcg PO DAILY@0600 [facility] Last Admin: 10/06/23 05:38 Dose: Not Given Documented By: JESSICA Non-Admin Reason: NPO Magnesium Hydroxide (Milk Of Magnesia 30 Ml Oral.Susp) 30 ml PO DAILY PRN PRN Reason: Constipation Melatonin (Melatonin 3 Mg Tablet) 6 mg PO BEDTIME PRN PRN Reason: Insomnia Morphine Sulfate (Morphine Sulfate 4 Mg/Ml Cartridge) 3 mg IVPUSH Q4H PRN; Protocol PRN Reason: Pain, Severe (Pain Scale 7-10) Ondansetron HCl (Ondansetron Hcl 4 Mg/2 Ml Vial) 4 mg IVPUSH Q8H PRN PRN Reason: Nausea and Vomiting Last Admin: 10/04/23 14:20 Dose: 4 mg Documented By: STEFANIA Oxycodone HCl (Oxycodone Hcl Immed Release 5 Mg Tablet) 5 mg PO Q4H PRN PRN Reason: Pain, Moderate(Pain Scale 4-6) Last Admin: 10/05/23 22:36 Dose: 5 mg Documented By: JESSICA Pharmacy Consult (Consult Rx Vancomycin Dosing) 1 each MISCELLANE DAILY PRN PRN Reason: Consult order Pyridoxine HCl (Pyridoxine Hcl (Vitamin B6) 50 Mg Tablet) 100 mg PO DAILY [facility] Last Admin: 10/06/23 07:52 Dose: Not Given Documented By: MANAN Non-Admin Reason: held per JOSE ROBERTO Dowell Sodium Chloride (0.9 % Sodium Chloride Flush 3 Ml Syringe) 3 ml IVFLUSH QSHIFT [facility] Last Admin: 10/06/23 07:39 Dose: Not Given Documented By: MANAN Non-Admin Reason: IV Running Vitamin D (Cholecalciferol (Vitamin D3) 25 Mcg Tablet) 50 mcg PO DAILY [facility] Last Admin: 10/06/23 07:52 Dose: Not Given Documented By: MANAN Non-Admin Reason: held per Magalys Labs 10/06/23 05:36 10/06/23 05:36 Labs: Laboratory Results - last 24 hr 10/05/23 10/05/23 10/05/23 09:43 16:44 21:29 MCV MCH MCHC RDW Plt Count MPV Absolute Nucleated RBC Nucleated RBC % (auto) Anion Gap Estim Creat Clear Calc Estimated GFR POC Glucose 120 H 108 77 Fasting Glucose Calcium Blood Type Antibody Screen 10/06/23 10/06/23 10/06/23 02:21 05:36 07:43 MCV 97.3 MCH 31.3 MCHC 32.2 RDW 16.3 H Plt Count 189 MPV 9.3 L Absolute Nucleated RBC 0.000 Nucleated RBC % (auto) 0.0 Anion Gap 13 Estim Creat Clear Calc 36.2 Estimated GFR 36 POC Glucose 97 Fasting Glucose 79 Calcium 8.2 L D Blood Type O Positive Antibody Screen NEGATIVE Microbiology Microbiology Results: Microbiology 10/03/23 23:48 Blood Culture - Preliminary Blood - Venous No growth after 48 hours. 10/03/23 23:50 Blood Culture - Preliminary Blood - Venous Gram positive cocci 10/03/23 16:27 Urine Culture - Final Urine clean catch - Clean Catch Midstream Assessment and Plan (1) Mural thickening of sigmoid colon: Status: Acute Plan 78F PMH retroperitoneal abscess, hypothyroidism, [id number] diabetes mellitus, mood disorder who presented to the emergency department for abdominial pain, n/v due to colonic restriction 1/2 with gpc in clusters suspect contaminant, but conitnue coverage until speciation sigmoid stricture, colonic obstruction - no bm, difficulty tolerating po, previous biopsy negative for ibd or malignancy, possibly due to diverticulitis plan to proceed with sigmoid resection/colostomy FELICITA improving, continue ivf, lasix and lisinopril held diabetes mellitus sliding scale Hypothyroidism continue levothyroxine. Essential hypertension Lasix, lisinopril held for felicita HLD continue statin obesity weight loss recommended DVT prophylaxis - hep sq full code reason for continued hospitalization:plan for surgery Quality Stroke Does the patient have a stroke diagnosis?: No VTE Prior VTE?: No VTE Risk Level:: Medical - moderate - high VTE Device Contraindication: N/A - Device Ordered VTE Drug Contraindication: Treatment Not Indicated
[2023-10-06 08:56] LABS: Glucose, Whole Blood 96 mg/dL (60-115)
--- NOTE | 2023-10-06 09:48 | HO.OSTOMY ---
Ostomy Consult: Site Marking 78yr old [place] [facility] [place] 03:16 - see H&P for detailed history. Patient seen on S3 for brief pre-operative ostomy teaching and stoma site selection/marking. ?The patient was instructed in very basic GI anatomy and stoma creation, and teaching to be available after surgery should a stoma be created. Throughout the visit the patient has several questions related to the ostomy and future care of the ostomy. ?Instruction was given on the purpose of pre-operative stoma site selection and marking: ?the importance of identifying a location within sight, avoiding creases on a relatively flat area of the abdomen, and siting within the large muscle of the abdomen for support. ?She agreed with the procedure. The patient's abdomen was visualized and palpated in the sitting, standing, bending, and lying positions. ?The margins of the rectus abdominis muscles were identified she is noted and marked for creases, and sites were marked in the RLQ, LUQ and LLQ within the margins. ?The patients pant location was taken into consideration when marking. Neyda has a horizontal crease above the umbilicus and she was marking accordingly - I also took into consideration her Diastasis Recti and marked accordingly for surgeon visibility in the OR. The sites were cleansed with alcohol prep pads before marking, marked with sterile surgical marker, and covered with tegaderms. ? Please re-consult after surgery for timely teaching. ?Thank you.
--- NOTE | 2023-10-06 10:03 | PC.NURSE ---
20 right hand IV was placed on patient floor.
--- NOTE | 2023-10-06 10:31 | P.PNNP_ITS ---
Subjective Subjective Date of Service: 10/06/23 Interval history: Events noted To OR today Physical Exam 2 Vital Signs: Vital Signs: Last Vital Signs Temp 98.1 F 10/06/23 10:08 Pulse 68 10/06/23 10:08 Resp 18 10/06/23 10:08 BP 124/53 L 10/06/23 10:08 Pulse Ox 99 10/06/23 10:08 O2 Del Method Room Air 10/06/23 10:08 BMI result Body Mass Index 33.8 Const: General: ill appearing Neck: Neck: Yes supple Resp: Auscultation: clear to auscultation bilaterally Cardio: Palpation: no palpable S3 Heart sounds: no rubs Neuro: Motor exam (neuro): no asterixis Objective Data Labs 10/06/23 05:36 10/06/23 05:36 Labs: Laboratory Results - last 24 hr 10/05/23 10/05/23 10/06/23 16:44 21:29 02:21 WBC RBC Hgb Hct MCV MCH MCHC RDW Plt Count MPV Absolute Nucleated RBC Nucleated RBC % (auto) Sodium Potassium Chloride Carbon Dioxide Anion Gap BUN Creatinine Estim Creat Clear Calc Estimated GFR POC Glucose 108 77 97 Fasting Glucose Calcium Blood Type Antibody Screen 10/06/23 10/06/23 10/06/23 05:36 07:43 08:51 WBC 5.0 RBC 3.35 L Hgb 10.5 L Hct 32.6 L MCV 97.3 MCH 31.3 MCHC 32.2 RDW 16.3 H Plt Count 189 MPV 9.3 L Absolute Nucleated RBC 0.000 Nucleated RBC % (auto) 0.0 Sodium 139 Potassium 4.1 Chloride 109 H Carbon Dioxide 21 L Anion Gap 13 BUN 21 H Creatinine 1.43 H Estim Creat Clear Calc 36.2 Estimated GFR 36 POC Glucose 96 Fasting Glucose 79 Calcium 8.2 L D Blood Type O Positive Antibody Screen NEGATIVE Microbiology Microbiology Results: Microbiology 10/03/23 23:50 Blood - Venous Blood Culture - Final Coag negative Staphylococcus 10/03/23 23:48 Blood - Venous Blood Culture - Preliminary No growth after 48 hours. 10/03/23 16:27 Urine clean catch - Clean Catch Midstream Urine Culture - Final Procedures Date of Service Date of Service: 10/06/23 Assessment & Plan Assessment and plan (1) FELICITA (acute kidney injury): Status: Acute Plan FELICITA superimpsed on CKD FELICITA most likely due to hypoperfusion However , AGN/AIN need to be ruled out No obstruction Renal function is improving. Suggest Hold LAsix and ACEi Keep I > O Avoid hypotension Watch urine output No indication for dialysis Time Spent With Patient Time: Total time managing care of this patient today ____ minutes. Progress Note: Quality Stroke Does the patient have a stroke diagnosis?: No
--- NOTE | 2023-10-06 11:50 | P.CONAN_ITS ---
HPI - Anesthesia Eval Consult details Narrative: ex lap for SBO PMFSH Active Problems Active Problems: All Active Problems FELICITA (acute kidney injury) (Acute) Sepsis (Acute) Diverticular disease (Acute) Partial obstruction of colon (Acute) Nausea & vomiting (Acute) Abdominal pain in female (Acute) Atrophic vaginitis (Acute) Mural thickening of sigmoid colon (Acute) Renal abscess (Acute) Frequency of urination (Acute) Vaginal burning (Acute) Vaginal itching (Acute) PMB (postmenopausal bleeding) (Acute) Fracture of great toe, left, closed (Acute) Retroperitoneal fluid collection (Acute) Bilateral nephrolithiasis (Acute) Abscess, retroperitoneal (Acute) Renal calyceal dilation determined by ultrasound (Acute) UTI (urinary tract infection) (Acute) Past Medical History Medical History Hydroureteronephrosis Wound infection Open wound of back, complicated Cellulitis Frequency of urination Vaginal burning Vaginal itching PMB (postmenopausal bleeding) Cirrhosis of liver Does mobilize using walker PONV (postoperative nausea and vomiting) Left foot drop Fatty liver Fibromyalgia Neuropathy RBBB Cholelithiasis Staghorn calculus Renal calculus, bilateral Renal calyceal dilation determined by ultrasound UTI (urinary tract infection) Diabetes mellitus, type II Ganglion cyst Plantar fasciitis Anxiety OA (osteoarthritis) Obstructive airway disease Hypercholesterolemia Low back pain Sciatica Hypothyroidism HTN (hypertension) Primary osteoarthritis of right knee Retained ureteral stent Renal stones Staghorn calculus Perirectal abscess Family History Family History Father Alcohol dependence Mother CHF (congestive heart failure) Cancer of breast Mother No problems noted. Other Alcoholic cirrhosis Family history of problems with anesthesia: No Surgical History Surgical History Status post cystoscopy with ureteral stent placement History of lumbar discectomy History of lumpectomy of both breasts History of cystoscopy History of lithotripsy Hx of colonoscopy History of surgery History of Problems with Anesthesia: No Social History Social History Household Members: Spouse and Significant Other Housing: House Are you a primary special needs child caregiver to a significant other at home: No Do you presently have visiting nurse or other home services: No Alcohol intake: never Comment: given pyridium Patient Tobacco Use Status: Former Tobacco user Tobacco use type: Cigarette Years Smoked: 27 Second Hand Smoke Exposure: No Advance Directives Date on File: 04/06/21 service: No Current occupational status: disabled Meds Allergies Allergy/AdvReac Type Severity Reaction Status Date / Time chlorpheniramine Allergy Severe HALLUCINATI Verified 10/03/23 15:30 [From TUSSIONEX] ONS escitalopram [ESCITALOPRAM] Allergy Severe DISSOCIATIVE Verified 10/03/23 15:30 REACTION fluoxetine [FLUOXETINE] Allergy Severe DISSOCIATIVE Verified 10/03/23 15:30 REACTION hydrocodone [From TUSSIONEX] Allergy Severe HALLUCINATI Verified 10/03/23 15:30 ONS ibuprofen [IBUPROFEN] Allergy Severe THROAT Verified 10/03/23 15:30 SWELLING Sulfa (Sulfonamide Allergy Severe DYSPNEA Verified 10/03/23 15:30 Antibiotics) [SULFA (SULFONAMIDE ANTIBIOTICS)] clarithromycin [From BIAXIN] Allergy Intermediate ABD.PAIN Verified 10/03/23 15:30 duloxetine [DULOXETINE] Allergy Intermediate FACIAL Verified 10/03/23 15:30 NUMBNESS erythromycin base Allergy Intermediate RASH Verified 10/03/23 15:30 [ERYTHROMYCIN BASE] Penicillins [PENICILLINS] Allergy Intermediate RASH Verified 10/03/23 15:30 tetracycline [TETRACYCLINE] Allergy Intermediate DIARRHEA Verified 10/03/23 15:30 ciprofloxacin [From CIPRO] Allergy Unknown ANAPHYLAXIS Verified 10/03/23 15:30 codeine [CODEINE] Allergy Unknown TINNITIS Verified 10/03/23 15:30 guaifenesin Allergy Unknown Unknown Verified 10/03/23 15:30 levofloxacin [From Levaquin] Allergy Unknown Unknown Verified 10/03/23 15:30 pregabalin Allergy Unknown Unknown Verified 10/03/23 15:30 Active Medications: Current Medications Acetaminophen (Acetaminophen 325 Mg Tablet) 650 mg PO Q6H PRN PRN Reason: Pain, Mild (Pain Scale 1-3), fever or headache Last Admin: 10/05/23 09:40 Dose: 650 mg Ascorbic Acid (Ascorbic Acid 500 Mg Tablet) 500 mg PO DAILY REPLACED BY [facility] Last Admin: 10/06/23 07:52 Dose: Not Given Atorvastatin Calcium (Atorvastatin Calcium 10 Mg Tablet) 10 mg PO DAILY@1700 NOHELIA Last Admin: 10/05/23 17:28 Dose: 10 mg Calcium Carbonate (Calcium Carbonate 750 Mg Tab.Chew) 750 mg PO Q4H PRN PRN Reason: Heartburn Glucose (Glucose Gel 15 Gm Gel..Gram.) 15 gm PO Q15M PRN; Protocol PRN Reason: per Hypoglycemia Standing Ord. Dextrose (D10) 250 mls @ 750 mls/hr IV Q15M PRN; Protocol PRN Reason: per Hypoglycemia Standing Ord. Ceftriaxone Sodium 1 gm/ (Sodium Chloride) 50 mls @ 100 mls/hr IV Q24H REPLACED BY [facility] Last Infusion: 10/05/23 21:31 Dose: Infused Sodium Chloride (Ns) 1,000 mls @ 100 mls/hr IVCONT .Q10H REPLACED BY [facility] Last Admin: 10/06/23 07:39 Dose: Not Given Metronidazole (Flagyl) 500 mg in 100 mls @ 100 mls/hr IV Q8H REPLACED BY [facility] Last Infusion: 10/06/23 07:38 Dose: Infused Vancomycin HCl 750 mg/ Sodium (Chloride) 265 mls @ 265 mls/hr IV Q24H REPLACED BY [facility] Last Infusion: 10/06/23 00:49 Dose: Infused Dextrose/Sodium Chloride (D51/2ns) 1,000 mls @ 80 mls/hr IVCONT .[id number] REPLACED BY [facility] Last Admin: 10/06/23 07:34 Dose: 80 mls/hr Insulin Human Lispro (Insulin Lispro 100 Unit/Ml 3 Ml Vial) 0 unit SUBCUT Q6H REPLACED BY [facility]; Protocol Last Admin: 10/06/23 02:50 Dose: Not Given Levothyroxine Sodium (Levothyroxine Sodium 112 Mcg Tablet) 112 mcg PO DAILY@0600 REPLACED BY [facility] Last Admin: 10/06/23 05:38 Dose: Not Given Magnesium Hydroxide (Milk Of Magnesia 30 Ml Oral.Susp) 30 ml PO DAILY PRN PRN Reason: Constipation Melatonin (Melatonin 3 Mg Tablet) 6 mg PO BEDTIME PRN PRN Reason: Insomnia Morphine Sulfate (Morphine Sulfate 4 Mg/Ml Cartridge) 3 mg IVPUSH Q4H PRN; Protocol PRN Reason: Pain, Severe (Pain Scale 7-10) Ondansetron HCl (Ondansetron Hcl 4 Mg/2 Ml Vial) 4 mg IVPUSH Q8H PRN PRN Reason: Nausea and Vomiting Last Admin: 10/04/23 14:20 Dose: 4 mg Oxycodone HCl (Oxycodone Hcl Immed Release 5 Mg Tablet) 5 mg PO Q4H PRN PRN Reason: Pain, Moderate(Pain Scale 4-6) Last Admin: 10/05/23 22:36 Dose: 5 mg Pharmacy Consult (Consult Rx Vancomycin Dosing) 1 each MISCELLANE DAILY PRN PRN Reason: Consult order Pyridoxine HCl (Pyridoxine Hcl (Vitamin B6) 50 Mg Tablet) 100 mg PO DAILY REPLACED BY [facility] Last Admin: 10/06/23 07:52 Dose: Not Given Sodium Chloride (0.9 % Sodium Chloride Flush 3 Ml Syringe) 3 ml IVFLUSH QSHIFT REPLACED BY [facility] Last Admin: 10/06/23 07:39 Dose: Not Given Vitamin D (Cholecalciferol (Vitamin D3) 25 Mcg Tablet) 50 mcg PO DAILY REPLACED BY [facility] Last Admin: 10/06/23 07:52 Dose: Not Given Home Medications ?Medication ?Instructions ?Recorded ?Confirmed ?Last Taken ?Type levothyroxine 112 mcg tablet 112 mcg PO DAILY 08/28/20 10/04/23 10/03/23 History atorvastatin 10 mg tablet 1 tab PO DAILY@1700 04/05/21 10/04/23 1 Day Ago History ~10/03/23 metformin 500 mg tablet,extended 1 tab PO DAILY@1700 04/06/21 10/04/23 10/03/23 History release 24 hr cholecalciferol (vitamin D3) 50 50 mcg PO DAILY 07/19/22 10/04/23 10/03/23 History mcg (2,000 unit) tablet (Vitamin D3) lisinopril 10 mg tablet 10 mg PO DAILY 07/19/22 10/04/23 10/03/23 History acetaminophen 500 mg tablet 1,000 mg PO BID PRN Pain 10/04/23 10/04/23 Unknown History ascorbic acid (vitamin C) 500 mg 500 mg PO DAILY 10/04/23 10/04/23 10/03/23 History tablet Exam Height,Weight and Vital Signs: Height 5 ft 4 in Weight 89.358 kg Last Vital Signs Temp 98.1 F 10/06/23 10:08 Pulse 68 10/06/23 10:08 Resp 18 10/06/23 10:08 BP 124/53 L 10/06/23 10:08 Pulse Ox 99 10/06/23 10:08 O2 Del Method Room Air 10/06/23 10:08 Pertinent Lab Results Pertinent Lab Results: Laboratory Tests 10/03/23 10/03/23 10/04/23 15:43 23:48 02:10 WBC 12.0 H RBC 4.19 L Hgb 13.2 Hct 38.7 MCV 92.4 MCH 31.5 MCHC 34.1 RDW 15.9 Plt Count 297 D MPV 9.2 L Immature Gran % (Auto) 2.0 H Neut % (Auto) 69.8 Lymph % (Auto) 20.4 [place] % (Auto) 7.2 Eos % (Auto) 0.3 Baso % (Auto) 0.3 Lymph # (Auto) 2.4 [place] # (Auto) 0.9 Eos # (Auto) 0.0 Baso # (Auto) 0.0 Abs Immat Gran (auto) 0.24 H Absolute Neuts (auto) 8.4 H Absolute Nucleated RBC 0.000 Nucleated RBC % (auto) 0.0 Sodium 136 Potassium 4.3 Chloride 103 Carbon Dioxide 20 L Anion Gap 17 BUN 30 H Creatinine 1.85 H Estim Creat Clear Calc 28.0 Estimated GFR 27 POC Glucose Random Glucose 141 H Fasting Glucose Lactic Acid 2.5 H* Lactic Acid F/U @ 2Hr 1.1 Calcium 9.8 D Total Bilirubin 1.0 Direct Bilirubin 0.4 AST 34 H ALT 20 Alkaline Phosphatase 77 Total Protein 7.8 Albumin 3.6 Lipase 12 Urine Color Yellow Urine Appearance Turbid Urine pH 6.5 Ur Specific [place] 1.015 Urine Protein 100 (2+) H Urine Glucose (UA) 100 H Urine Ketones Trace Urine Blood Moderate (2+) H Urine Nitrite Negative Ur Leukocyte Esterase Large (3+) H Urine RBC 11-20 H Urine WBC >50 H Ur Squamous Epith Cells 11-20 Urine Bacteria 4+ Hyaline Casts >20 U Random Total Protein 189 H Ur Random Sodium 61.0 Ur Random Potassium 42.2 Ur Random Chloride 41.0 Urine Creatinine 158.74 Protein/Creatinin Ratio 1.19 H Influenza Type A (PCR) NEGATIVE Influenza Type B (PCR) NEGATIVE RSV RNA Qual (PCR) NEGATIVE SARS-CoV-2 RNA (RT-PCR) NEGATIVE Blood Type Antibody Screen 10/04/23 10/04/23 10/04/23 04:12 09:58 10:16 WBC 9.6 RBC 3.72 L Hgb 11.8 L Hct 35.2 L MCV 94.6 MCH 31.7 MCHC 33.5 RDW 16.2 H Plt Count 233 MPV 9.1 L Immature Gran % (Auto) 1.6 H Neut % (Auto) 70.9 Lymph % (Auto) 17.4 L [place] % (Auto) 8.9 Eos % (Auto) 0.9 Baso % (Auto) 0.3 Lymph # (Auto) 1.7 [place] # (Auto) 0.9 Eos # (Auto) 0.1 Baso # (Auto) 0.0 Abs Immat Gran (auto) 0.15 H Absolute Neuts (auto) 6.8 Absolute Nucleated RBC 0.000 Nucleated RBC % (auto) 0.0 Sodium 137 Potassium 4.2 Chloride 104 Carbon Dioxide 24 Anion Gap 13 BUN 39 H Creatinine 2.46 H Estim Creat Clear Calc 21.0 Estimated GFR 19 POC Glucose 117 H 128 H Random Glucose 130 H Fasting Glucose Lactic Acid Lactic Acid F/U @ 2Hr Calcium 8.8 D Total Bilirubin Direct Bilirubin AST ALT Alkaline Phosphatase Total Protein Albumin Lipase Urine Color Urine Appearance Urine pH Ur Specific [place] Urine Protein Urine Glucose (UA) Urine Ketones Urine Blood Urine Nitrite Ur Leukocyte Esterase Urine RBC Urine WBC Ur Squamous Epith Cells Urine Bacteria Hyaline Casts U Random Total Protein Ur Random Sodium Ur Random Potassium Ur Random Chloride Urine Creatinine Protein/Creatinin Ratio Influenza Type A (PCR) Influenza Type B (PCR) RSV RNA Qual (PCR) SARS-CoV-2 RNA (RT-PCR) Blood Type Antibody Screen 10/04/23 10/04/23 10/05/23 15:06 19:58 00:27 WBC RBC Hgb Hct MCV MCH MCHC RDW Plt Count MPV Immature Gran % (Auto) Neut % (Auto) Lymph % (Auto) [place] % (Auto) Eos % (Auto) Baso % (Auto) Lymph # (Auto) [place] # (Auto) Eos # (Auto) Baso # (Auto) Abs Immat Gran (auto) Absolute Neuts (auto) Absolute Nucleated RBC Nucleated RBC % (auto) Sodium Potassium Chloride Carbon Dioxide Anion Gap BUN Creatinine Estim Creat Clear Calc Estimated GFR POC Glucose 135 H 137 H Random Glucose Fasting Glucose Lactic Acid Lactic Acid F/U @ 2Hr Calcium Total Bilirubin Direct Bilirubin AST ALT Alkaline Phosphatase Total Protein Albumin Lipase Urine Color Urine Appearance Urine pH Ur Specific [place] Urine Protein Urine Glucose (UA) Urine Ketones Urine Blood Urine Nitrite Ur Leukocyte Esterase Urine RBC Urine WBC Ur Squamous Epith Cells Urine Bacteria Hyaline Casts U Random Total Protein 19 H Ur Random Sodium 55.0 Ur Random Potassium Ur Random Chloride Urine Creatinine 41.25 Protein/Creatinin Ratio Influenza Type A (PCR) Influenza Type B (PCR) RSV RNA Qual (PCR) SARS-CoV-2 RNA (RT-PCR) Blood Type Antibody Screen 10/05/23 10/05/23 10/05/23 02:55 05:40 06:50 WBC 6.3 RBC 3.72 L Hgb 11.5 L Hct 35.9 L MCV 96.5 MCH 30.9 MCHC 32.0 RDW 16.0 Plt Count 238 MPV 9.5 Immature Gran % (Auto) Neut % (Auto) Lymph % (Auto) [place] % (Auto) Eos % (Auto) Baso % (Auto) Lymph # (Auto) [place] # (Auto) Eos # (Auto) Baso # (Auto) Abs Immat Gran (auto) Absolute Neuts (auto) Absolute Nucleated RBC 0.000 Nucleated RBC % (auto) 0.0 Sodium 137 Potassium 4.6 Chloride 106 Carbon Dioxide 20 L Anion Gap 16 BUN 32 H Creatinine 2.08 H Estim Creat Clear Calc 24.9 Estimated GFR 23 POC Glucose 98 107 Random Glucose 88 Fasting Glucose Lactic Acid Lactic Acid F/U @ 2Hr Calcium 9.2 Total Bilirubin Direct Bilirubin AST ALT Alkaline Phosphatase Total Protein Albumin Lipase Urine Color Urine Appearance Urine pH Ur Specific [place] Urine Protein Urine Glucose (UA) Urine Ketones Urine Blood Urine Nitrite Ur Leukocyte Esterase Urine RBC Urine WBC Ur Squamous Epith Cells Urine Bacteria Hyaline Casts U Random Total Protein Ur Random Sodium Ur Random Potassium Ur Random Chloride Urine Creatinine Protein/Creatinin Ratio Influenza Type A (PCR) Influenza Type B (PCR) RSV RNA Qual (PCR) SARS-CoV-2 RNA (RT-PCR) Blood Type Antibody Screen 10/05/23 10/05/23 10/05/23 09:43 16:44 21:29 WBC RBC Hgb Hct MCV MCH MCHC RDW Plt Count MPV Immature Gran % (Auto) Neut % (Auto) Lymph % (Auto) [place] % (Auto) Eos % (Auto) Baso % (Auto) Lymph # (Auto) [place] # (Auto) Eos # (Auto) Baso # (Auto) Abs Immat Gran (auto) Absolute Neuts (auto) Absolute Nucleated RBC Nucleated RBC % (auto) Sodium Potassium Chloride Carbon Dioxide Anion Gap BUN Creatinine Estim Creat Clear Calc Estimated GFR POC Glucose 120 H 108 77 Random Glucose Fasting Glucose Lactic Acid Lactic Acid F/U @ 2Hr Calcium Total Bilirubin Direct Bilirubin AST ALT Alkaline Phosphatase Total Protein Albumin Lipase Urine Color Urine Appearance Urine pH Ur Specific [place] Urine Protein Urine Glucose (UA) Urine Ketones Urine Blood Urine Nitrite Ur Leukocyte Esterase Urine RBC Urine WBC Ur Squamous Epith Cells Urine Bacteria Hyaline Casts U Random Total Protein Ur Random Sodium Ur Random Potassium Ur Random Chloride Urine Creatinine Protein/Creatinin Ratio Influenza Type A (PCR) Influenza Type B (PCR) RSV RNA Qual (PCR) SARS-CoV-2 RNA (RT-PCR) Blood Type Antibody Screen 10/06/23 10/06/23 10/06/23 02:21 05:36 07:43 WBC 5.0 RBC 3.35 L Hgb 10.5 L Hct 32.6 L MCV 97.3 MCH 31.3 MCHC 32.2 RDW 16.3 H Plt Count 189 MPV 9.3 L Immature Gran % (Auto) Neut % (Auto) Lymph % (Auto) [place] % (Auto) Eos % (Auto) Baso % (Auto) Lymph # (Auto) [place] # (Auto) Eos # (Auto) Baso # (Auto) Abs Immat Gran (auto) Absolute Neuts (auto) Absolute Nucleated RBC 0.000 Nucleated RBC % (auto) 0.0 Sodium 139 Potassium 4.1 Chloride 109 H Carbon Dioxide 21 L Anion Gap 13 BUN 21 H Creatinine 1.43 H Estim Creat Clear Calc 36.2 Estimated GFR 36 POC Glucose 97 Random Glucose Fasting Glucose 79 Lactic Acid Lactic Acid F/U @ 2Hr Calcium 8.2 L D Total Bilirubin Direct Bilirubin AST ALT Alkaline Phosphatase Total Protein Albumin Lipase Urine Color Urine Appearance Urine pH Ur Specific [place] Urine Protein Urine Glucose (UA) Urine Ketones Urine Blood Urine Nitrite Ur Leukocyte Esterase Urine RBC Urine WBC Ur Squamous Epith Cells Urine Bacteria Hyaline Casts U Random Total Protein Ur Random Sodium Ur Random Potassium Ur Random Chloride Urine Creatinine Protein/Creatinin Ratio Influenza Type A (PCR) Influenza Type B (PCR) RSV RNA Qual (PCR) SARS-CoV-2 RNA (RT-PCR) Blood Type O Positive Antibody Screen NEGATIVE 10/06/23 08:51 WBC RBC Hgb Hct MCV MCH MCHC RDW Plt Count MPV Immature Gran % (Auto) Neut % (Auto) Lymph % (Auto) [place] % (Auto) Eos % (Auto) Baso % (Auto) Lymph # (Auto) [place] # (Auto) Eos # (Auto) Baso # (Auto) Abs Immat Gran (auto) Absolute Neuts (auto) Absolute Nucleated RBC Nucleated RBC % (auto) Sodium Potassium Chloride Carbon Dioxide Anion Gap BUN Creatinine Estim Creat Clear Calc Estimated GFR POC Glucose 96 Random Glucose Fasting Glucose Lactic Acid Lactic Acid F/U @ 2Hr Calcium Total Bilirubin Direct Bilirubin AST ALT Alkaline Phosphatase Total Protein Albumin Lipase Urine Color Urine Appearance Urine pH Ur Specific [place] Urine Protein Urine Glucose (UA) Urine Ketones Urine Blood Urine Nitrite Ur Leukocyte Esterase Urine RBC Urine WBC Ur Squamous Epith Cells Urine Bacteria Hyaline Casts U Random Total Protein Ur Random Sodium Ur Random Potassium Ur Random Chloride Urine Creatinine Protein/Creatinin Ratio Influenza Type A (PCR) Influenza Type B (PCR) RSV RNA Qual (PCR) SARS-CoV-2 RNA (RT-PCR) Blood Type Antibody Screen Airway Mallampati Class: II TM Dist: <=3cm Neck ROM: Limited Heart: rrr Lungs: ta Assessment and Plan Assessment Anesthesia Assessment: Anesthesia Plan Discussed and Chart Reviewed Final Anesthetic Review Family History of Problems with Anesthesia: No History of Problems with Anesthesia: No NPO: Yes ASA Class: III and Emergency Final Preanesthetic Review: No Changes in Pt Med Stat, Meds/Allgs Chart Reviewed, Consent Obtained/Reviewed and Anes Risks/Benef Reviewed Patient Risk: Intermediate Procedure Risk: Intermediate Anesthetic Plan Anesthetic Plan: GA and Regional Block Disposition: Standard PACU
[2023-10-06 11:58] LABS: Complement C3 147 mg/dL (83-193)
--- NOTE | 2023-10-06 14:23 | W.PM.OPN ---
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 Previous workup with CT had previously noted at the stricture. She underwent colonoscopy in 04/2023 which confirmed diverticular stricture without malignancy. Operative findings: Wide area of diverticular stricture in the sigmoid colon with intense scarring to the pelvic sidewall and bladder. Marked inflammation phlegmon noted. Specimen: Sigmoid colon Estimated blood loss: 25 mL Complications: None Procedure details: Patient was brought to the OR placed in a supine position. After administering general anesthesia the patient's abdomen was prepped with ChloraPrep and draped in a sterile fashion. A surgical time-out was called the consent confirmed. Patient received preoperative antibiotics and Venodyne boots were in place. A tap block was previously placed by anesthesia staff. A generous midline incision was then created with a scalpel carried out through subcutaneous tissue, past the linea alba into the peritoneum. The proximal colon from descending on proximal was markedly dilated. The sigmoid colon was densely adherent to the pelvic sidewall with thick scarring and shortening of the mesentery. Sigmoid colon was gently mobilized off the pelvic sidewall and along the white line of [place] up along the descending colon. Dissection was continued downward along the mesentery of the sigmoid colon. With a proximal margin of resection was identified the mesentery was divided and a BALWINDER stapler 60 blue was used to divide the descending colon at the sigmoid junction. LigaSure was then used to dissect along the mesentery of the sigmoid colon staying close to bowel wall. The dense adhesions were carefully dissected using both electrocautery and sharp dissection. An area of soft distal sigmoid colon was then identified. Once again the mesentery was divided below the bowel wall and a TA stapler used to divide the bowel at this level. The remaining mesentery was then divided using the electrocautery and the LigaSure. A small amount of feculent soilage was identified during this dissection but was quickly controlled. The specimen was removed and sent to pathology for further examination. Abdomen was thoroughly irrigated with saline solution and suctioned dry. The abdomen was irrigated with Aricept followed by saline solution. Descending colon was then further mobilized along the white line of [place] and along the mesentery to create a end colostomy. A circular incision was then made adjacent to the umbilicus in the left lower quadrant. This carried out through subcutaneous tissue. A cruciate incision was then made in the anterior rectus sheath. Estelita clamp was then used to divide rectus muscle and entered the peritoneum. This then dilated with 3 fingers. The descending colon was then brought up as a colostomy and held with Juno clamps. Fascia was then closed in the midline using a running 0 looped PDS suture. Subcutaneous tissue and dermis were reapproximated using interrupted 3-0 Polysorb sutures. Skin was closed using skin rowena. Attention was then directed to the colostomy. This was then matured by opening the staple line with electrocautery. Four quadrants were closed using a 3-0 Polysorb suture to include full-thickness bowel wall and proximal serosa followed by dermis to create a [place] type ostomy. This was done in 4 quadrants and simple sutures placed in the remaining 4 quadrants. Ostomy bag was then applied followed by sterile dressings. The patient tolerated the procedure well. Sponge, instrument, and needle counts reported as correct. The patient was transferred to PACU in stable condition.
[2023-10-06] MEDS: HYDROmorphone HCl 0.5 MG/0.5 ML SYRINGE 0.25 MG IVPUSH ×4 (15:12→15:24)
[2023-10-06 16:14] LABS: Glucose, Whole Blood 167 mg/dL (60-115)
[2023-10-06] MEDS: 0.9 % Sodium Chloride Flush 3 ML SYRINGE IVFLUSH ×2 (16:30→22:48)
[2023-10-06] MEDS: Lactated Ringers 1,000 ML 80 ML IVCONT (16:35)
[2023-10-06] MEDS: Morphine Sulfate 4 MG/ML CARTRIDGE 3 MG IVPUSH ×2 (18:30→22:45)
[2023-10-06] MEDS: Acetaminophen 1,000 MG/100 ML PIGGYBACK 400 MG IV (19:52)
[2023-10-06 20:30] LABS: Glucose, Whole Blood 150 mg/dL (60-115)
[2023-10-06] MEDS: cefTRIAXone sodium 1 GM in 0.9 % Sodium Chloride 50 ML IV (20:39)
[2023-10-06 21:26] LABS: Vancomycin Random 13.1 mcg/mL (15-20)
[2023-10-06] MEDS: oxyCODONE HCl Immed Release 5 MG TABLET PO (21:31)
--- NOTE | 2023-10-06 21:34 | HE.PHANOTE ---
RE: VANCO DOSING Random came back as 13.1 and renal function is improving. Dose is increased to 1000 mg q24h, next random is scheduled for 10/07/23 @2100.
[2023-10-06] MEDS: vancomycin HCL 1,000 MG in 0.9 % Sodium Chloride 250 ML 270 MG IV (22:47)
[2023-10-07] MEDS: Acetaminophen 1,000 MG/100 ML PIGGYBACK 400 MG IV ×3 (01:44→14:21)
[2023-10-07] MEDS: Morphine Sulfate 4 MG/ML CARTRIDGE 3 MG IVPUSH ×5 (02:42→19:50)
[2023-10-07 02:56] LABS: Glucose, Whole Blood 123 mg/dL (60-115)
[2023-10-07 04:00] VITALS: BP 106/51; PULSE 60; RESP 18; TEMP 36.9; O2SAT 97
[2023-10-07] MEDS: Levothyroxine Sodium 112 MCG TABLET PO (05:29)
[2023-10-07] MEDS: metroNIDAZOLE/NS 500 MG/100 ML PIGGYBACK 100 MG IV ×3 (05:30→22:12)
[2023-10-07] MEDS: Lactated Ringers 1,000 ML 80 ML IVCONT ×2 (05:42→17:13)
--- NOTE | 2023-10-07 07:16 | HO.STUDENTPN ---
Subjective Subjective Date of Service: 10/07/23 <[facility] Last Filed: 10/07/23 07:29> 10/07/23 <Magalys Olsen PA-C - Last Filed: 10/07/23 07:43> 10/07/23 <Marino Jimenez MD - Last Filed: 10/07/23 07:58> Interval History: Pt resting in bed, endorses 8-9/10 pain, minimal and improved nausea this morning, no vomiting. <[facility] Last Filed: 10/07/23 07:29> Constitutional Constitutional: Reports no additional constitutional complaints, Denies chills and Reports difficulty sleeping <[facility] Filed: 10/07/23 07:29> Eyes Eyes: Reports no additional eye complaints <[facility] Filed: 10/07/23 07:29> ENT Ears, Nose, Mouth, and Throat: Reports system reviewed and no additional complaints, except as documented <[facility] Filed: 10/07/23 07:29> Cardiovascular Cardiovascular: Reports no additional cardiovascular complaints, Denies chest pain and Denies rapid heart rate <[facility] Filed: 10/07/23 07:29> Respiratory Respiratory: Reports no additional respiratory complaints and Denies cough <[facility] Filed: 10/07/23 07:29> Gastrointestinal Gastrointestinal: Reports abdominal pain, Reports nausea and Denies vomiting <[facility] Filed: 10/07/23 07:29> Genitourinary Genitourinary: Reports no additional female genitourinary complaints <[facility] Filed: 10/07/23 07:29> Musculoskeletal Musculoskeletal: Reports no additional musculoskeletal complaints <[facility] Filed: 10/07/23 07:29> Integumentary/Breasts Skin/Breast: Reports no additional skin complaints <[facility] Filed: 10/07/23 07:29> Neurologic Neurologic: Reports system reviewed and no additional complaints, except as documented [facility]: 10/07/23 07:29> Psychiatric Psychiatric: Reports no additional psychiatric complaints <[facility] - Last Filed: 10/07/23 07:29> Endocrine Endocrine: Reports no additional endocrine complaints <[facility] Last Filed: 10/07/23 07:29> Physical Exam Vital Signs: Vital Signs: Last Vital Signs Temp 98.4 F 10/07/23 04:00 Pulse 60 10/07/23 04:00 Resp 18 10/07/23 04:00 BP 106/51 L 10/07/23 04:00 Pulse Ox 97 10/07/23 04:00 O2 Del Method Nasal Cannula 10/07/23 04:00 O2 Flow Rate 2 10/07/23 04:00 BMI result Body Mass Index 33.8 <[facility] Last Filed: 10/07/23 07:29> Afebrile on antipyretics, HR 60-76, O2 sat 95-100% on 2L NC, BP 100/41-125/58 <Isabela [facility] Filed: 10/07/23 07:29> Const: General: cooperative, no acute distress, alert and awake <Isabela [facility] Filed: 10/07/23 07:29> Orientation/consciousness: patient oriented x3 [facility] Filed: 10/07/23 07:29> HEENT: Head: Yes normocephalic and Yes atraumatic <Isabela [facility] Filed: 10/07/23 07:29> Ears: hearing grossly normal bilaterally <Isabela [facility] Filed: 10/07/23 07:29> Face and sinus: Yes face symmetric <Isabela [facility] Filed: 10/07/23 07:29> Eyes: Conjunctivae: conjunctivae normal [facility]: 10/07/23 07:29> Sclerae: sclerae normal <[facility] Filed: 10/07/23 07:29> EOM: EOMs intact bilaterally <Isabela [facility] Filed: 10/07/23 07:29> Resp: Effort & Inspection: normal respiratory effort <Isabela [facility] Filed: 10/07/23 07:29> Auscultation: clear to auscultation bilaterally, no crackles, no rales, no rhonchi and no wheezes <[facility] Last Filed: 10/07/23 07:29> Cardio: Jugular venous distension: no JVD <[facility] Filed: 10/07/23 07:29> Rate: regular rate [facility] Filed: 10/07/23 07:29> Rhythm: regular rhythm <[facility] Filed: 10/07/23 07:29> Heart sounds: S1 normal heart sound present, S2 normal heart sound present, no gallops, no murmurs and no rubs <[facility] Filed: 10/07/23 07:29> Peripheral pulses: Peripheral pulses 2+ throughout <[facility] Filed: 10/07/23 07:29> GI: Inspection: Yes incision (midline incision with dressings c/d/i) and Yes other (ostomy bag with minimal fecal fluid and blood, stoma red in color) <[facility] Filed: 10/07/23 07:29> Palpation (GI): Soft to palpation, Tenderness to palpation present (GI) (generalized, palpation limited 2/2 pain) and Guarding due to palpation present (GI) <[facility] Filed: 10/07/23 07:29> Auscultation: normoactive bowel sounds <Isabela [facility] Filed: 10/07/23 07:29> : General: Yes no CVA tenderness and Yes other (Gordon in place) <[facility] Filed: 10/07/23 07:29> Back/Spine/Pelvis: Back: no CVA tenderness [facility]: 10/07/23 07:29> Skin: General skin exam: no rashes or lesions noted <[facility] Filed: 10/07/23 07:29> Neuro: General: patient oriented x3 <[facility] Filed: 10/07/23 07:29> Extrem: General: Yes capillary refill normal <[facility] Last Filed: 10/07/23 07:29> Objective Data Active Medications Ascorbic Acid (Ascorbic Acid 500 Mg Tablet) 500 mg PO DAILY [facility] Last Admin: 10/06/23 07:52 Dose: Not Given Documented By: MANAN Non-Admin Reason: held per Magalys Atorvastatin Calcium (Atorvastatin Calcium 10 Mg Tablet) 10 mg PO DAILY@1700 [facility] Last Admin: 10/06/23 16:34 Dose: Not Given Documented By: MANAN Non-Admin Reason: NPO Calcium Carbonate (Calcium Carbonate 750 Mg Tab.Chew) 750 mg PO Q4H PRN PRN Reason: Heartburn Glucose (Glucose Gel 15 Gm Gel..Gram.) 15 gm PO Q15M PRN; Protocol PRN Reason: per Hypoglycemia Standing Ord. Dextrose (D10) 250 mls @ 750 mls/hr IV Q15M PRN; Protocol PRN Reason: per Hypoglycemia Standing Ord. Ceftriaxone Sodium 1 gm/ (Sodium Chloride) 50 mls @ 100 mls/hr IV Q24H [facility] Last Infusion: 10/06/23 21:09 Dose: Infused Documented By: JESSICA Metronidazole (Flagyl) 500 mg in 100 mls @ 100 mls/hr IV Q8H [facility] Last Infusion: 10/07/23 06:30 Dose: Infused Documented By: JESSICA Phenylephrine HCl 20 mg/ (Sodium Chloride) 252 mls @ 0 mls/hr IVCONT .Q0M [facility]; Protocol Acetaminophen (Ofirmev) 1,000 mg in 100 mls @ 400 mls/hr IV Q6H [facility] Stop: 10/07/23 14:14 Last Infusion: 10/07/23 02:02 Dose: Infused Documented By: JESSICA Lactated Ringer's (Lr) 1,000 mls @ 80 mls/hr IVCONT .[id number] [facility] Last Infusion: 10/07/23 06:40 Dose: 80 mls/hr Documented By: JESSICA Vancomycin HCl 1,000 mg/ (Sodium Chloride) 270 mls @ 270 mls/hr IV Q24H [facility] Last Infusion: 10/06/23 23:48 Dose: Infused Documented By: JESSICA Insulin Human Lispro (Insulin Lispro 100 Unit/Ml 3 Ml Vial) 0 unit SUBCUT Q6H [facility]; Protocol Last Admin: 10/07/23 03:35 Dose: Not Given Documented By: JESSICA Non-Admin Reason: No Insulin Coverage Levothyroxine Sodium (Levothyroxine Sodium 112 Mcg Tablet) 112 mcg PO DAILY@0600 [facility] Last Admin: 10/07/23 05:29 Dose: 112 mcg Documented By: JESSICA Magnesium Hydroxide (Milk Of Magnesia 30 Ml Oral.Susp) 30 ml PO DAILY PRN PRN Reason: Constipation Melatonin (Melatonin 3 Mg Tablet) 6 mg PO BEDTIME PRN PRN Reason: Insomnia Morphine Sulfate (Morphine Sulfate 4 Mg/Ml Cartridge) 3 mg IVPUSH Q4H PRN; Protocol PRN Reason: Pain, Severe (Pain Scale 7-10) Last Admin: 10/07/23 02:42 Dose: 3 mg Documented By: JESSICA Ondansetron HCl (Ondansetron Hcl 4 Mg/2 Ml Vial) 4 mg IVPUSH Q8H PRN PRN Reason: Nausea and Vomiting Last Admin: 10/04/23 14:20 Dose: 4 mg Documented By: STEFANIA Oxycodone HCl (Oxycodone Hcl Immed Release 5 Mg Tablet) 5 mg PO Q4H PRN PRN Reason: Pain, Moderate(Pain Scale 4-6) Last Admin: 10/06/23 21:31 Dose: 5 mg Documented By: JESSICA Pharmacy Consult (Consult Rx Vancomycin Dosing) 1 each MISCELLANE DAILY PRN PRN Reason: Consult order Pyridoxine HCl (Pyridoxine Hcl (Vitamin B6) 50 Mg Tablet) 100 mg PO DAILY [facility] Last Admin: 10/06/23 07:52 Dose: Not Given Documented By: MANAN Non-Admin Reason: held per JOSE ROBERTO Dowell Sodium Chloride (0.9 % Sodium Chloride Flush 3 Ml Syringe) 3 ml IVFLUSH QSHIFT [facility] Last Admin: 10/06/23 22:48 Dose: 3 ml Documented By: JESSICA Vitamin D (Cholecalciferol (Vitamin D3) 25 Mcg Tablet) 50 mcg PO DAILY [facility] Last Admin: 10/06/23 07:52 Dose: Not Given Documented By: MANAN Non-Admin Reason: held per Magalys <Isabela [facility]anares - Last Filed: 10/07/23 07:29> Labs CBC & Chem 7: 10/07/23 05:50 10/07/23 05:50 <Isabela Manzanares - Last Filed: 10/07/23 07:29> Labs: Laboratory Results - last 24 hr 10/05/23 10/06/23 10/06/23 05:40 07:43 08:51 POC Glucose 96 Random Vancomycin Complement C3 147 Complement C4 20 Blood Type O Positive Antibody Screen NEGATIVE 10/06/23 10/06/23 10/06/23 16:08 20:24 20:55 POC Glucose 167 H 150 H Random Vancomycin 13.1 L Complement C3 Complement C4 Blood Type Antibody Screen 10/07/23 02:52 POC Glucose 123 H Random Vancomycin Complement C3 Complement C4 Blood Type Antibody Screen <Isabela Manzanares - Last Filed: 10/07/23 07:29> Microbiology Microbiology Results: Microbiology 10/03/23 23:50 Blood Culture - Final Blood - Venous Coag negative Staphylococcus <Isabela [facility]zana[facility] Last Filed: 10/07/23 07:29> Assessment and Plan (1) Partial obstruction of colon: Status: Acute <Isabela Manzanares [facility] Last Filed: 10/07/23 07:29> Assessment and Plan: POD 1 from ex lap colectomy, remains afebrile with improved nausea, pain 9/[address] with output 0.59 mL/kg/hr Ostomy bag with minimal output so far Plan: -Progress to clear liquid diet with monitoring for n/v/pain -Remove Gordon with void trial -Encourage ambulation and IS use -Continue Flagyl 500mg q8hrs, Vancomycin 1g q24hrs -Morphine 3mg qh4 and Tylenol q6hrs prn for pain -Ostomy education <Isabela Manzanares - Last Filed: 10/07/23 07:29> POD 1 from ex lap colectomy, remains afebrile with improved nausea, pain 9/[address] with output 0.59 mL/kg/hr Ostomy bag with minimal output so far Plan: -Progress to clear liquid diet with monitoring for n/v/pain -Remove Gordon with void trial -Encourage ambulation and IS use -Continue Flagyl 500mg q8hrs, Vancomycin 1g q24hrs -Morphine 3mg qh4 and Tylenol q6hrs prn for pain -Ostomy education Seen independently, agree with Glenna MS-3. Patient POD #1 s/p jacquie procedure. Doing fairly well post op. VSS. Abd exam benign with appropriate post op tenderness, ostomy with smearing of soft stool. Will advance to clear liquids, dc gordon. Pain control. Ostomy education. Encouraged OOB today, IS use. Patient comfortable with plan. Abx per hospitalist service. <Magalys Olsen PA-C - Last Filed: 10/07/23 07:43> POD 1 from ex lap sigmoid colectomy, remains afebrile with improved nausea, pain 9/[address] with output 0.59 mL/kg/hr Ostomy bag with minimal output so far Plan: -Progress to clear liquid diet with monitoring for n/v/pain -Remove Gordon with void trial -Encourage ambulation and IS use -Continue Flagyl 500mg q8hrs, Vancomycin 1g q24hrs -Morphine 3mg qh4 and Tylenol q6hrs prn for pain -Ostomy education Seen independently, agree with Glenna MS-3. Patient POD #1 s/p jacquie procedure. Doing fairly well post op. VSS. Abd exam benign with appropriate post op tenderness, ostomy with smearing of soft stool. Will advance to clear liquids, dc gordon. Pain control. Ostomy education. Encouraged OOB today, IS use. Patient comfortable with plan. Abx per hospitalist service. <Marino Jimenez MD - Last Filed: 10/07/23 07:58> Quality Stroke Does the patient have a stroke diagnosis?: No <Isabela Manzanares - Last Filed: 10/07/23 07:29> VTE Prior VTE?: No <Isabela Manzanares - Last Filed: 10/07/23 07:29> VTE Risk Level:: Medical - moderate - high <Isabela Manzanares - Last Filed: 10/07/23 07:29> VTE Device Contraindication: N/A - Device Ordered <Isabela Manzanares - Last Filed: 10/07/23 07:29> VTE Drug Contraindication: Treatment Not Indicated <Isabela Manzanares - Last Filed: 10/07/23 07:29>
[2023-10-07 07:28] LABS: Hematocrit 34.9 % (37.0-47.0); Hemoglobin 10.8 g/dl (12.0-16.0); Mean Corpuscular HGB Conc 30.9 g/dl (31.0-35.0); Mean Corpuscular Hemoglobin 30.5 pg (27.0-33.0); Mean Corpuscular Volume 98.6 fL (80.0-98.0); Mean Platelet Volume 9.9 fL (9.4-12.3); Platelet Count 226 X10*3/uL (160-400); Red Blood Count 3.54 X10*6/uL (4.20-5.50); Red Cell Distribution Width 16.6 % (11.0-16.0); White Blood Count 14.6 X10*3/uL (4.8-10.8)
[2023-10-07] MEDS: Pyridoxine HCl (Vitamin B6) 50 MG TABLET 100 MG PO (07:39)
[2023-10-07] MEDS: Cholecalciferol (Vitamin D3) 25 MCG TABLET 50 MCG PO (07:39)
[2023-10-07] MEDS: Ascorbic Acid 500 MG TABLET PO (07:39)
[2023-10-07] MEDS: 0.9 % Sodium Chloride Flush 3 ML SYRINGE IVFLUSH ×2 (07:39→21:03)
[2023-10-07 07:41] VITALS: BP 106/50; PULSE 75; RESP 18; TEMP 35.9; O2SAT 98
[2023-10-07 07:52] LABS: Anion Gap 11 (12-20); Blood Urea Nitrogen 18 mg/dL (9-16); Calcium 8.4 mg/dL (8.4-10.2); Carbon Dioxide 22 mmol/L (22-29); Chloride 109 mmol/L (96-108); Estimated Glomerular Filt Rate 35; Glucose Fasting 111 mg/dL (60-99); Potassium 4.7 mmol/L (3.3-5.1); Sodium 137 mmol/L (135-145)
--- NOTE | 2023-10-07 09:04 | P.PNIM_ITS ---
Subjective Subjective Date of Service: 10/07/23 Interval History: pain controlled Physical Exam 2 Vital Signs: Vital Signs: Last Vital Signs Temp 96.7 F L 10/07/23 07:41 Pulse 75 10/07/23 07:41 Resp 18 10/07/23 07:41 BP 106/50 L 10/07/23 07:41 Pulse Ox 98 10/07/23 07:41 O2 Del Method Nasal Cannula 10/07/23 07:41 O2 Flow Rate 1.0 10/07/23 07:41 BMI result Body Mass Index 33.8 Afebrile on antipyretics, HR 60-76, O2 sat 95-100% on 2L NC, BP 100/41-125/58 Const: General: cooperative, no acute distress, alert and awake O rientation/consciousness: patient oriented x3 HEENT: Head: Yes normocephalic and Yes atraumatic Ears: hearing grossly normal bilaterally Face and sinus: Yes face symmetric Eyes: Conjunctivae: conjunctivae normal Sclerae: sclerae normal EOM: E OMs intact bilaterally Resp: Effort & Inspection: normal respiratory effort Auscultation: clear to auscultation bilaterally, no crackles, no rales, no rhonchi and no wheezes Cardio: Jugular venous distension: no JVD Rate: regular rate Rhythm: r egular rhythm Heart sounds: S1 normal heart sound present, S2 normal heart sound present, no gallops, no murmurs and no rubs Peripheral pulses: P eripheral pulses 2+ throughout GI: Inspection: Yes incision (midline incision with dressings c/d/i) and Yes other (ostomy bag with minimal fecal fluid and blood, stoma red in color) P alpation (GI): Soft to palpation, Tenderness to palpation present (GI) (generalized, palpation limited 2/2 pain) and Guarding due to palpation present (GI) Auscultation: normoactive bowel sounds : General: Yes no CVA tenderness and Yes other (Varela in place) Back/Spine/Pelvis: Back: no CVA tenderness Skin: General skin exam: no rashes or lesions noted Neuro: General: patient oriented x3 Extrem: General: Yes capillary refill normal Objective Data Active Medications Ascorbic Acid (Ascorbic Acid 500 Mg Tablet) 500 mg PO DAILY NOHEL[facility] Last Admin: 10/07/23 07:39 Dose: 500 mg Documented By: MANAN Atorvastatin Calcium (Atorvastatin Calcium 10 Mg Tablet) 10 mg PO DAILY@1700 [facility] Last Admin: 10/06/23 16:34 Dose: Not Given Documented By: MANAN Non-Admin Reason: NPO Calcium Carbonate (Calcium Carbonate 750 Mg Tab.Chew) 750 mg PO Q4H PRN PRN Reason: Heartburn Glucose (Glucose Gel 15 Gm Gel..Gram.) 15 gm PO Q15M PRN; Protocol PRN Reason: per Hypoglycemia Standing Ord. Dextrose (D10) 250 mls @ 750 mls/hr IV Q15M PRN; Protocol PRN Reason: per Hypoglycemia Standing Ord. Ceftriaxone Sodium 1 gm/ (Sodium Chloride) 50 mls @ 100 mls/hr IV Q24H [facility] Last Infusion: 10/06/23 21:09 Dose: Infused Documented By: JESSICA Metronidazole (Flagyl) 500 mg in 100 mls @ 100 mls/hr IV Q8H [facility] Last Infusion: 10/07/23 06:30 Dose: Infused Documented By: JESSICA Phenylephrine HCl 20 mg/ (Sodium Chloride) 252 mls @ 0 mls/hr IVCONT .Q0M [facility]; Protocol Acetaminophen (Ofirmev) 1,000 mg in 100 mls @ 400 mls/hr IV Q6H [facility] Stop: 10/07/23 14:14 Last Infusion: 10/07/23 08:05 Dose: Infused Documented By: MANAN Lactated Ringer's (Lr) 1,000 mls @ 80 mls/hr IVCONT .[id number] [facility] Last Infusion: 10/07/23 06:40 Dose: 80 mls/hr Documented By: JESSICA Vancomycin HCl 1,000 mg/ (Sodium Chloride) 270 mls @ 270 mls/hr IV Q24H [facility] Last Infusion: 10/06/23 23:48 Dose: Infused Documented By: JESSICA Insulin Human Lispro (Insulin Lispro 100 Unit/Ml 3 Ml Vial) 0 unit SUBCUT Q6H [facility]; Protocol Last Admin: 10/07/23 03:35 Dose: Not Given Documented By: JESSICA Non-Admin Reason: No Insulin Coverage Levothyroxine Sodium (Levothyroxine Sodium 112 Mcg Tablet) 112 mcg PO DAILY@0600 [facility] Last Admin: 10/07/23 05:29 Dose: 112 mcg Documented By: JESSICA Magnesium Hydroxide (Milk Of Magnesia 30 Ml Oral.Susp) 30 ml PO DAILY PRN PRN Reason: Constipation Melatonin (Melatonin 3 Mg Tablet) 6 mg PO BEDTIME PRN PRN Reason: Insomnia Morphine Sulfate (Morphine Sulfate 4 Mg/Ml Cartridge) 3 mg IVPUSH Q4H PRN; Protocol PRN Reason: Pain, Severe (Pain Scale 7-10) Last Admin: 10/07/23 07:33 Dose: 3 mg Documented By: MANAN Ondansetron HCl (Ondansetron Hcl 4 Mg/2 Ml Vial) 4 mg IVPUSH Q8H PRN PRN Reason: Nausea and Vomiting Last Admin: 10/04/23 14:20 Dose: 4 mg Documented By: STEFANIA Oxycodone HCl (Oxycodone Hcl Immed Release 5 Mg Tablet) 5 mg PO Q4H PRN PRN Reason: Pain, Moderate(Pain Scale 4-6) Last Admin: 10/06/23 21:31 Dose: 5 mg Documented By: JESSICA Pharmacy Consult (Consult Rx Vancomycin Dosing) 1 each MISCELLANE DAILY PRN PRN Reason: Consult order Pyridoxine HCl (Pyridoxine Hcl (Vitamin B6) 50 Mg Tablet) 100 mg PO DAILY [facility] Last Admin: 10/07/23 07:39 Dose: 100 mg Documented By: MANAN Sodium Chloride (0.9 % Sodium Chloride Flush 3 Ml Syringe) [facility] Last Admin: 10/07/23 07:39 Dose: 3 ml Documented By: MANAN Vitamin D (Cholecalciferol (Vitamin D3) 25 Mcg Tablet) 50 mcg PO DAILY [facility] Last Admin: 10/07/23 07:39 Dose: 50 mcg Documented By: MANAN Labs 10/07/23 05:50 10/07/23 05:50 Labs: Laboratory Results - last 24 hr 10/05/23 10/06/23 10/06/23 05:40 16:08 20:24 MCV MCH MCHC RDW Plt Count MPV Absolute Nucleated RBC Nucleated RBC % (auto) Anion Gap Estim Creat Clear Calc Estimated GFR POC Glucose 167 H 150 H Fasting Glucose Calcium Random Vancomycin Complement C3 147 Complement C4 20 10/06/23 10/07/23 10/07/23 20:55 02:52 05:50 MCV 98.6 H MCH 30.5 MCHC 30.9 L RDW 16.6 H Plt Count 226 MPV 9.9 Absolute Nucleated RBC 0.000 Nucleated RBC % (auto) 0.0 Anion Gap 11 L Estim Creat Clear Calc 36.0 Estimated GFR 35 POC Glucose 123 H Fasting Glucose 111 H Calcium 8.4 Random Vancomycin 13.1 L Complement C3 Complement C4 Microbiology Microbiology Results: Microbiology 10/03/23 23:50 Blood Culture - Final Blood - Venous Coag negative Staphylococcus Assessment and Plan (1) Mural thickening of sigmoid colon: Status: Acute Plan 78F PMH retroperitoneal abscess, hypothyroidism, [id number] diabetes mellitus, mood disorder who presented to the emergency department for abdominial pain, n/v due to colonic restriction 02/08 with gpc in clusters was staph epi, will dc vanc sigmoid stricture, colonic obstruction - previous biopsy negative for ibd or malignancy, possibly due to diverticulitis s/p resection and ostomy 10/06/23 advancing to clears continue rocephin and flagyl FELICITA improving, continue ivf, lasix and lisinopril held diabetes mellitus sliding scale Hypothyroidism continue levothyroxine. Essential hypertension Lasix, lisinopril held for felicita HLD continue statin obesity weight loss recommended DVT prophylaxis - hep sq full code reason for continued hospitalization: awaiting return of bowel function Quality Stroke Does the patient have a stroke diagnosis?: No VTE Prior VTE?: No VTE Risk Level:: Medical - moderate - high VTE Device Contraindication: N/A - Device Ordered VTE Drug Contraindication: Treatment Not Indicated
--- NOTE | 2023-10-07 09:32 | HO.POSTANES ---
Post Anesthesia Evaluation Post Anesthesia Evaluation Date of Service: 10/06/23 Vital Signs: Vital Signs Temp Pulse Resp BP Pulse Ox O2 Del Method O2 Flow Rate 10/07/23 07:41 96.7 F L 75 18 106/50 L 98 Nasal Cannula 1.0 10/07/23 04:00 98.4 F 60 18 106/51 L 97 Nasal Cannula 2 10/06/23 23:56 97.7 F 75 18 114/55 L 98 Nasal Cannula 2 Anesthesia: Regional and General Endotracheal-GETA Mental Status: Awake Pain Control: Satisfactory Nausea/Vomiting: None Hydration: Adequate Anesthesia-Related Issues: No Anes. Related Issues
[2023-10-07] MEDS: Heparin Sodium,Porcine 5,000 UNIT/ML VIAL 5000 UNIT SUBCUT ×2 (11:02→20:51)
--- NOTE | 2023-10-07 11:12 | P.PNNP_ITS ---
Subjective Subjective Date of Service: 10/07/23 Interval history: pain controlled Physical Exam 2 Vital Signs: Vital Signs: Last Vital Signs Temp 96.7 F L 10/07/23 07:41 Pulse 75 10/07/23 07:41 Resp 18 10/07/23 07:41 BP 106/50 L 10/07/23 07:41 Pulse Ox 98 10/07/23 07:41 O2 Del Method Nasal Cannula 10/07/23 07:41 O2 Flow Rate 1.0 10/07/23 07:41 BMI result Body Mass Index 33.8 Const: General: ill appearing Neck: Neck: Yes supple Resp: Auscultation: clear to auscultation bilaterally Cardio: Palpation: no palpable S3 Heart sounds: no rubs Neuro: Motor exam (neuro): no asterixis Objective Data Labs 10/07/23 05:50 10/07/23 05:50 Labs: Laboratory Results - last 24 hr 10/05/23 10/06/23 10/06/23 05:40 16:08 20:24 WBC RBC Hgb Hct MCV MCH MCHC RDW Plt Count MPV Absolute Nucleated RBC Nucleated RBC % (auto) Sodium Potassium Chloride Carbon Dioxide Anion Gap BUN Creatinine Estim Creat Clear Calc Estimated GFR POC Glucose 167 H 150 H Fasting Glucose Calcium Random Vancomycin Complement C3 147 Complement C4 20 10/06/23 10/07/23 10/07/23 20:55 02:52 05:50 WBC 14.6 H RBC 3.54 L Hgb 10.8 L Hct 34.9 L MCV 98.6 H MCH 30.5 MCHC 30.9 L RDW 16.6 H Plt Count 226 MPV 9.9 Absolute Nucleated RBC 0.000 Nucleated RBC % (auto) 0.0 Sodium 137 Potassium 4.7 Chloride 109 H Carbon Dioxide 22 Anion Gap 11 L BUN 18 H Creatinine 1.44 H Estim Creat Clear Calc 36.0 Estimated GFR 35 POC Glucose 123 H Fasting Glucose 111 H Calcium 8.4 Random Vancomycin 13.1 L Complement C3 Complement C4 Microbiology Microbiology Results: Microbiology 10/03/23 23:50 Blood - Venous Blood Culture - Final Coag negative Staphylococcus 10/03/23 23:48 Blood - Venous Blood Culture - Preliminary No growth after 48 hours. 10/03/23 16:27 Urine clean catch - Clean Catch Midstream Urine Culture - Final Procedures Date of Service Date of Service: 10/07/23 Assessment & Plan Assessment and plan (1) FELICITA (acute kidney injury): Status: Acute Plan FELICITA superimpsed on CKD FELICITA most likely due to hypoperfusion AGN/AIN unlikely No obstruction Renal function is improving. Suggest Hold LAsix and ACEi Keep I > O Avoid hypotension Watch urine output Time Spent With Patient Time: Total time managing care of this patient today ____ minutes. Progress Note: Quality Stroke Does the patient have a stroke diagnosis?: No
--- NOTE | 2023-10-07 11:24 | HO.OSTOMY ---
Ostomy Consult: Initial Teaching 78yr old female admitted to [facility] [place] on 10/04/23 and had Hartmans procedure on 10/06/[address] Jimenez and Dr. Avina. See Op note for details. She had Colostomy creation. ?Upon entry into patient's room, she is sitting in her bed about to start her clear liquid diet, she is alert and oriented x 3. ?She is agreeable to continuing with consult. ? We discussed his pain control at 5/10 at the current moment, she reports increasing the use of IS and ambulating to the Bathroom. She was encouraged to ambulate the hallways 3times today - she reports understanding. We began by discussing general knowledge about the Colostomy and questions she had. ?We discussed opening and closing the ostomy pouch. She was able to independently provide a return demonstration on an empty pouch. ?She had not yet needed to empty her pouch. ?We discussed the importance of emptying pouch when 1/3 to 1/2 full, how to empty pouch, and lining water with toilet paper to prevent splash back. She was also educated on when to contact jewel bearing turner/Dr Jimenez's office/seek emergency medical treatment. Patient was given some ostomy pouches, rings for transition to home. Aware that Rx written for pouches and rings will be sent to [place] by outpt nurse prior to discharge. Reviewed written education with patient and left at bedside for further review. ? Permission was granted for pouch assessment and no leak noted and pouch changed not yet needed. ?She had excellent questions that led to further discussion. ?Patient was made aware that myself will return to bedside early next week for ongoing education - however to note patient seems to have a good understanding of care and material at this time. ?She will benefit from VNA services at time of discharge. ?All questions and concerns addressed at this time. Next teaching session goals: Demonstrate open and close independently - sirect care team to encourage patient to empty with stand by assist Steps to a pouch change she is able to recall We discussed the following steps: 1. Empty pouch before pouch change 2. Remove pouch using push/pull technique from top to bottom 3. Cleanse stoma and skin with tap water only - no soap or baby wipes 4. Pat dry 5. Measure stoma and cut new pouch no more than 1/8 inch larger than stoma and no smaller than stoma 6. If instructed by your ostomy nurse stretch Amy seal to the size of the stoma and press onto skin around stoma (up to the edge of the stoma but not onto the stoma) 7. Press the new pouch into place and hold for several minutes (close pouch tail) 8. Empty pouch when 1/3 to 1/2 full 9. Change pouch twice weekly on a schedule (for example, every Tuesday and ) and as needed for any leaking (feels like intense itch or burn at edge of stoma) 10. May order pre-cut pouches (already cut to size of stoma) once stoma measures the same size consistently. ?
[2023-10-07 11:58] LABS: Glucose, Whole Blood 119 mg/dL (60-115)
[2023-10-07 12:00] VITALS: BP 104/55; PULSE 88; RESP 20; TEMP 36.3; O2SAT 98
--- NOTE | 2023-10-07 13:19 | HO.OSTOMY ---
Ostomy Consult: Initial Teaching 78yr old female admitted to [facility] on 10/04/23 and had Hartmans procedure on 10/06/[address] Jimenez and Dr[address] Avina. See Op note for details. She had Colostomy creation. ?Upon entry into patient's room, she is sitting in her bed about to start her clear liquid diet, she is alert and oriented x 3. ?She is agreeable to continuing with consult. ? We discussed his pain control at 5/10 at the current moment, she reports increasing the use of IS and ambulating to the Bathroom. She was encouraged to ambulate the hallways 3times today - she reports understanding. We began by discussing general knowledge about the Colostomy and questions she had. ?We discussed opening and closing the ostomy pouch. She was able to independently provide a return demonstration on an empty pouch. ?She had not yet needed to empty her pouch. ?We discussed the importance of emptying pouch when 1/3 to 1/2 full, how to empty pouch, and lining water with toilet paper to prevent splash back. She was also educated on when to contact boilers inspector/Dr Jimenez's office/seek emergency medical treatment. . Aware that Rx written for pouches and rings will be sent to [place] by outpt nurse prior to discharge. Reviewed written education with patient and left at bedside for further review. ? Permission was granted for pouch assessment and no leak noted and pouch changed not yet needed. ?Patient was made aware that myself will return to bedside early next week for ongoing education - however to note patient seems to have a good understanding of care and material at this time. ?She will benefit from VNA services at time of discharge. ?All questions and concerns addressed at this time. Next teaching session goals: Demonstrate open and close independently - direct care team to encourage patient to empty with stand by assist
--- NOTE | 2023-10-07 14:47 | MHC.CM.PN ---
PER ROUNDS MAY NEED REHAB PT TO BE SEEN BY PHYSICAL THERAPY WHEN MEDICALLY STABLE
--- NOTE | 2023-10-07 15:21 | PC.NURSE ---
gordon d/c at 1500,patient did not want it to be removed earlier,patient tolerated it well,DTV #1 at 2100
[2023-10-07 15:39] VITALS: BP 110/55; PULSE 86; RESP 18; TEMP 36.6; O2SAT 99
[2023-10-07 16:10] LABS: Glucose, Whole Blood 115 mg/dL (60-115)
[2023-10-07] MEDS: Atorvastatin Calcium 10 MG TABLET PO (17:13)
[2023-10-07 20:00] VITALS: BP 126/61; PULSE 98; RESP 16; TEMP 36.7; O2SAT 96
[2023-10-07 20:49] LABS: Glucose, Whole Blood 154 mg/dL (60-115)
[2023-10-07] MEDS: cefTRIAXone sodium 1 GM in 0.9 % Sodium Chloride 50 ML IV (20:54)
[2023-10-07 23:51] VITALS: BP 113/56; PULSE 105; RESP 16; TEMP 36.2; O2SAT 96
[2023-10-08] MEDS: Morphine Sulfate 4 MG/ML CARTRIDGE 3 MG IVPUSH ×3 (02:48→20:44)
[2023-10-08 03:05] VITALS: BP 135/75; PULSE 112; RESP 17; TEMP 37; O2SAT 95
[2023-10-08] MEDS: oxyCODONE HCl Immed Release 5 MG TABLET PO (05:47)
[2023-10-08] MEDS: Levothyroxine Sodium 112 MCG TABLET PO (05:47)
[2023-10-08] MEDS: metroNIDAZOLE/NS 500 MG/100 ML PIGGYBACK 100 MG IV ×3 (05:48→22:08)
[2023-10-08] MEDS: Lactated Ringers 1,000 ML 80 ML IVCONT (05:51)
[2023-10-08 07:03] LABS: Anion Gap 14 (12-20); Blood Urea Nitrogen 18 mg/dL (9-16); Calcium 8.3 mg/dL (8.4-10.2); Carbon Dioxide 18 mmol/L (22-29); Chloride 107 mmol/L (96-108); Creatinine Clr Calc Pharmacy 33.4; Estimated Glomerular Filt Rate 33; Glucose Fasting 102 mg/dL (60-99); Magnesium 1.7 mg/dL (1.6-2.6); Potassium 4.1 mmol/L (3.3-5.1); Sodium 135 mmol/L (135-145)
[2023-10-08 07:21] LABS: Hematocrit 30.9 % (37.0-47.0); Mean Corpuscular HGB Conc 32.4 g/dl (31.0-35.0); Mean Corpuscular Hemoglobin 31.3 pg (27.0-33.0); Mean Corpuscular Volume 96.6 fL (80.0-98.0); Mean Platelet Volume 9.6 fL (9.4-12.3); NRBC Pct Auto 0.2 /100WBC (0.0-0.2); Platelet Count 247 X10*3/uL (160-400); White Blood Count 18.3 X10*3/uL (4.8-10.8)
[2023-10-08 07:45] LABS: Glucose, Whole Blood 95 mg/dL (60-115)
[2023-10-08 08:00] VITALS: BP 118/52; PULSE 103; RESP 18; TEMP 36.4; O2SAT 96
--- NOTE | 2023-10-08 09:12 | P.PNGS_ITS ---
Subjective Subjective Date of Service: 10/08/23 Interval history: Describes pain on incision Tolerating clear liquids well Denies nausea Stoma has been functioning well overnight with a lot of stools Physical Exam 2 Vital Signs: Vital Signs: Last Vital Signs Temp 97.6 F 10/08/23 08:00 Pulse 103 H 10/08/23 08:00 Resp 18 10/08/23 08:00 BP 118/52 L 10/08/23 08:00 Pulse Ox 96 10/08/23 08:00 O2 Del Method Room Air 10/08/23 08:00 O2 Flow Rate 2 10/07/23 15:39 BMI result Body Mass Index 33.8 Const: Other: Looks well, sitting up on bed General: comfortable and no acute distress Resp: Effort & Inspection: normal respiratory effort Cardio: Rhythm: regular rhythm GI: Other: Has large amounts of stools in stoma, unable to directly visualize the stoma itself at this time, dressings dry Palpation (GI): Soft to palpation, not firm and no guarding Objective Data Active Medications Ascorbic Acid (Ascorbic Acid 500 Mg Tablet) 500 mg PO DAILY [facility] Last Admin: 10/07/23 07:39 Dose: 500 mg Documented By: MANAN Atorvastatin Calcium (Atorvastatin Calcium 10 Mg Tablet) 10 mg PO DAILY@1700 [facility] Last Admin: 10/07/23 17:13 Dose: 10 mg Documented By: MANAN Calcium Carbonate (Calcium Carbonate 750 Mg Tab.Chew) 750 mg PO Q4H PRN PRN Reason: Heartburn Glucose (Glucose Gel 15 Gm Gel..Gram.) 15 gm PO Q15M PRN; Protocol PRN Reason: per Hypoglycemia Standing Ord. Heparin Sodium (Porcine) (Heparin Sodium,Porcine 5,000 Unit/Ml Vial) 5,000 unit SUBCUT Q12H [facility] Last Admin: 10/07/23 20:51 Dose: 5,000 unit Documented By: JOSE Dextrose (D10) 250 mls @ 750 mls/hr IV Q15M PRN; Protocol PRN Reason: per Hypoglycemia Standing Ord. Ceftriaxone Sodium 1 gm/ (Sodium Chloride) 50 mls @ 100 mls/hr IV Q24H [facility] Last Infusion: 10/07/23 21:33 Dose: Infused Documented By: JOSE Metronidazole (Flagyl) 500 mg in 100 mls @ 100 mls/hr IV Q8H [facility] Last Infusion: 10/08/23 07:41 Dose: Infused Documented By: MIHAELA Phenylephrine HCl 20 mg/ (Sodium Chloride) 252 mls @ 0 mls/hr IVCONT .Q0M [facility]; Protocol Lactated Ringer's (Lr) 1,000 mls @ 80 mls/hr IVCONT .[id number] [facility] Last Admin: 10/08/23 05:51 Dose: 80 mls/hr Documented By: JOSE Insulin Human Lispro (Insulin Lispro 100 Unit/Ml 3 Ml Vial) 0 unit SUBCUT QIDACHS [facility]; Protocol Last Admin: 10/08/23 08:23 Dose: Not Given Documented By: MIHAELA Non-Admin Reason: No Insulin Coverage Levothyroxine Sodium (Levothyroxine Sodium 112 Mcg Tablet) 112 mcg PO DAILY@0600 [facility] Last Admin: 10/08/23 05:47 Dose: 112 mcg Documented By: JOSE Magnesium Hydroxide (Milk Of Magnesia 30 Ml Oral.Susp) 30 ml PO DAILY PRN PRN Reason: Constipation Melatonin (Melatonin 3 Mg Tablet) 6 mg PO BEDTIME PRN PRN Reason: Insomnia Morphine Sulfate (Morphine Sulfate 4 Mg/Ml Cartridge) 3 mg IVPUSH Q4H PRN; Protocol PRN Reason: Pain, Severe (Pain Scale 7-10) Last Admin: 10/08/23 02:48 Dose: 3 mg Documented By: ZAC Ondansetron HCl (Ondansetron Hcl 4 Mg/2 Ml Vial) 4 mg IVPUSH Q8H PRN PRN Reason: Nausea and Vomiting Last Admin: 10/04/23 14:20 Dose: 4 mg Documented By: STEFANIA Oxycodone HCl (Oxycodone Hcl Immed Release 5 Mg Tablet) 5 mg PO Q4H PRN PRN Reason: Pain, Moderate(Pain Scale 4-6) Last Admin: 10/08/23 05:47 Dose: 5 mg Documented By: JOSE Pyridoxine HCl (Pyridoxine Hcl (Vitamin B6) 50 Mg Tablet) 100 mg PO DAILY [facility] Last Admin: 10/07/23 07:39 Dose: 100 mg Documented By: MANAN Sodium Chloride (0.9 % Sodium Chloride Flush 3 Ml Syringe) 3 ml IVFLUSH QSHIFT [facility] Last Admin: 10/08/23 07:42 Dose: Not Given Documented By: MIHAELA Non-Admin Reason: IV Running Vitamin D (Cholecalciferol (Vitamin D3) 25 Mcg Tablet) 50 mcg PO DAILY [facility] Last Admin: 10/07/23 07:39 Dose: 50 mcg Documented By: MANAN Labs 10/08/23 06:37 10/08/23 06:37 Labs: Laboratory Results - last 24 hr 10/07/23 10/07/23 10/07/23 11:54 15:40 20:40 MCV MCH MCHC RDW Plt Count MPV Absolute Nucleated RBC Nucleated RBC % (auto) Anion Gap Estim Creat Clear Calc Estimated GFR POC Glucose 119 H 115 154 H Fasting Glucose Calcium Magnesium 10/08/23 10/08/23 06:37 07:23 MCV 96.6 MCH 31.3 MCHC 32.4 RDW 17.0 H Plt Count 247 MPV 9.6 Absolute Nucleated RBC 0.030 H Nucleated RBC % (auto) 0.2 Anion Gap 14 Estim Creat Clear Calc 33.4 Estimated GFR 33 POC Glucose 95 Fasting Glucose 102 H Calcium 8.3 L Magnesium 1.7 Procedures Date of Service Date of Service: 10/08/23 Progress Note: A&P Assessment and plan (1) Partial obstruction of colon: Status: Acute Assessment and Plan: Status post Vicki's procedure Clinically looks well Comfortable with good output from the stoma We will try on regular diet Encouraged on incentive spirometry and to get out of bed WBC elevated - no fever; we will monitor Continue IV fluid as creatinine is trending up Time Spent With Patient Time: Total time managing care of this patient today ____ minutes. Quality Stroke Does the patient have a stroke diagnosis?: No VTE Prior VTE?: No VTE Risk Level:: Medical - moderate - high VTE Device Contraindication: N/A - Device Ordered VTE Drug Contraindication: Treatment Not Indicated
--- NOTE | 2023-10-08 09:44 | P.PNIM_ITS ---
Subjective Subjective Date of Service: 10/08/23 Interval History: stool in ostomy Physical Exam 2 Vital Signs: Vital Signs: Last Vital Signs Temp 97.6 F 10/08/23 08:00 Pulse 103 H 10/08/23 08:00 Resp 18 10/08/23 08:00 BP 118/52 L 10/08/23 08:00 Pulse Ox 96 10/08/23 08:00 O2 Del Method Room Air 10/08/23 08:00 O2 Flow Rate 2 10/07/23 15:39 BMI result Body Mass Index 33.8 Const: Other: Looks well, sitting up on bed General: comfortable and no acute distress Resp: Effort & Inspection: normal respiratory effort Cardio: Rhythm: regular rhythm GI: Other: Has large amounts of stools in stoma, unable to directly visualize the stoma itself at this time, dressings dry Palpation (GI): Soft to palpation, not firm and no guarding Objective Data Active Medications Ascorbic Acid (Ascorbic Acid 500 Mg Tablet) 500 mg PO DAILY [facility] Last Admin: 10/07/23 07:39 Dose: 500 mg Documented By: MANAN Atorvastatin Calcium (Atorvastatin Calcium 10 Mg Tablet) 10 mg PO DAILY@1700 [facility] Last Admin: 10/07/23 17:13 Dose: 10 mg Documented By: MANAN Calcium Carbonate (Calcium Carbonate 750 Mg Tab.Chew) 750 mg PO Q4H PRN PRN Reason: Heartburn Glucose (Glucose Gel 15 Gm Gel..Gram.) 15 gm PO Q15M PRN; Protocol PRN Reason: per Hypoglycemia Standing Ord. Heparin Sodium (Porcine) (Heparin Sodium,Porcine 5,000 Unit/Ml Vial) 5,000 unit SUBCUT Q12H [facility] Last Admin: 10/07/23 20:51 Dose: 5,000 unit Documented By: JOSE Dextrose (D10) 250 mls @ 750 mls/hr IV Q15M PRN; Protocol PRN Reason: per Hypoglycemia Standing Ord. Ceftriaxone Sodium 1 gm/ (Sodium Chloride) 50 mls @ 100 mls/hr IV Q24H [facility] Last Infusion: 10/07/23 21:33 Dose: Infused Documented By: JOSE Metronidazole (Flagyl) 500 mg in 100 mls @ 100 mls/hr IV Q8H [facility] Last Infusion: 10/08/23 07:41 Dose: Infused Documented By: MIHAELA Phenylephrine HCl 20 mg/ (Sodium Chloride) 252 mls @ 0 mls/hr IVCONT .Q0M [facility]; Protocol Lactated Ringer's (Lr) 1,000 mls @ 80 mls/hr IVCONT .[id number] [facility] Last Admin: 10/08/23 05:51 Dose: 80 mls/hr Documented By: JOSE Insulin Human Lispro (Insulin Lispro 100 Unit/Ml 3 Ml Vial) 0 unit SUBCUT QIDACHS [facility]; Protocol Last Admin: 10/08/23 08:23 Dose: Not Given Documented By: MIHAELA Non-Admin Reason: No Insulin Coverage Levothyroxine Sodium (Levothyroxine Sodium 112 Mcg Tablet) 112 mcg PO DAILY@0600 [facility] Last Admin: 10/08/23 05:47 Dose: 112 mcg Documented By: JOSE Magnesium Hydroxide (Milk Of Magnesia 30 Ml Oral.Susp) 30 ml PO DAILY PRN PRN Reason: Constipation Melatonin (Melatonin 3 Mg Tablet) 6 mg PO BEDTIME PRN PRN Reason: Insomnia Morphine Sulfate (Morphine Sulfate 4 Mg/Ml Cartridge) 3 mg IVPUSH Q4H PRN; Protocol PRN Reason: Pain, Severe (Pain Scale 7-10) Last Admin: 10/08/23 02:48 Dose: 3 mg Documented By: ZAC Ondansetron HCl (Ondansetron Hcl 4 Mg/2 Ml Vial) 4 mg IVPUSH Q8H PRN PRN Reason: Nausea and Vomiting Last Admin: 10/04/23 14:20 Dose: 4 mg Documented By: STEFANIA Oxycodone HCl (Oxycodone Hcl Immed Release 5 Mg Tablet) 5 mg PO Q4H PRN PRN Reason: Pain, Moderate(Pain Scale 4-6) Last Admin: 10/08/23 05:47 Dose: 5 mg Documented By: JOSE Pyridoxine HCl (Pyridoxine Hcl (Vitamin B6) 50 Mg Tablet) 100 mg PO DAILY [facility] Last Admin: 10/07/23 07:39 Dose: 100 mg Documented By: MANAN Sodium Chloride (0.9 % Sodium Chloride Flush 3 Ml Syringe) 3 ml IVFLUSH QSHIFT [facility] Last Admin: 10/08/23 07:42 Dose: Not Given Documented By: MIHAELA Non-Admin Reason: IV Running Vitamin D (Cholecalciferol (Vitamin D3) 25 Mcg Tablet) 50 mcg PO DAILY [facility] Last Admin: 10/07/23 07:39 Dose: 50 mcg Documented By: MANAN Labs 10/08/23 06:37 10/08/23 06:37 Labs: Laboratory Results - last 24 hr 10/07/23 10/07/23 10/07/23 11:54 15:40 20:40 MCV MCH MCHC RDW Plt Count MPV Absolute Nucleated RBC Nucleated RBC % (auto) Anion Gap Estim Creat Clear Calc Estimated GFR POC Glucose 119 H 115 154 H Fasting Glucose Calcium Magnesium 10/08/23 10/08/23 06:37 07:23 MCV 96.6 MCH 31.3 MCHC 32.4 RDW 17.0 H Plt Count 247 MPV 9.6 Absolute Nucleated RBC 0.030 H Nucleated RBC % (auto) 0.2 Anion Gap 14 Estim Creat Clear Calc 33.4 Estimated GFR 33 POC Glucose 95 Fasting Glucose 102 H Calcium 8.3 L Magnesium 1.7 Assessment and Plan (1) Mural thickening of sigmoid colon: Status: Acute Plan 78F PMH retroperitoneal abscess, hypothyroidism, [id number] diabetes mellitus, mood disorder who presented to the emergency department for abdominial pain, n/v due to colonic restriction 1/2 with gpc in clusters was staph epi, contaminant sigmoid stricture, colonic obstruction - previous biopsy negative for ibd or malignancy, possibly due to diverticulitis s/p resection and ostomy 10/06/23 now with stool advancing to solids continue rocephin and flagyl FELCIITA improved continue ivf, lasix and lisinopril held diabetes mellitus sliding scale Hypothyroidism continue levothyroxine. Essential hypertension Lasix, lisinopril held for felicita HLD continue statin obesity weight loss recommended DVT prophylaxis - hep sq full code reason for continued hospitalization: awaiting tolerance of solids Quality Stroke Does the patient have a stroke diagnosis?: No VTE Prior VTE?: No VTE Risk Level:: Medical - moderate - high VTE Device Contraindication: N/A - Device Ordered VTE Drug Contraindication: Treatment Not Indicated
[2023-10-08] MEDS: Cholecalciferol (Vitamin D3) 25 MCG TABLET 50 MCG PO (10:41)
[2023-10-08] MEDS: Ascorbic Acid 500 MG TABLET PO (10:41)
[2023-10-08] MEDS: Pyridoxine HCl (Vitamin B6) 50 MG TABLET 100 MG PO (10:42)
[2023-10-08] MEDS: Heparin Sodium,Porcine 5,000 UNIT/ML VIAL 5000 UNIT SUBCUT ×2 (10:42→22:08)
[2023-10-08 11:23] LABS: Glucose, Whole Blood 142 mg/dL (60-115)
[2023-10-08 15:31] VITALS: BP 112/57; PULSE 99; RESP 20; TEMP 37.2; O2SAT 96
[2023-10-08 16:26] LABS: Glucose, Whole Blood 136 mg/dL (60-115)
--- NOTE | 2023-10-08 16:28 | PC.NURSE ---
Ostomy changed with patients primary RN, pt tolerated well. Stoma Beefy Red, no s/s infection, formed stool.
[2023-10-08] MEDS: Atorvastatin Calcium 10 MG TABLET PO (17:28)
[2023-10-08 20:00] VITALS: BP 112/55; PULSE 95; RESP 20; TEMP 36.3; O2SAT 95
[2023-10-08 20:34] LABS: Glucose, Whole Blood 154 mg/dL (60-115)
[2023-10-08] MEDS: cefTRIAXone sodium 1 GM in 0.9 % Sodium Chloride 50 ML IV (20:45)
[2023-10-08] MEDS: 0.9 % Sodium Chloride Flush 3 ML SYRINGE IVFLUSH (20:46)
[2023-10-08 23:47] VITALS: BP 114/55; PULSE 91; RESP 16; TEMP 36.6; O2SAT 96
[2023-10-09] MEDS: Morphine Sulfate 4 MG/ML CARTRIDGE 3 MG IVPUSH ×3 (03:22→22:48)
[2023-10-09 04:00] VITALS: BP 100/48; PULSE 91; RESP 16; TEMP 36.6; O2SAT 96
[2023-10-09] MEDS: metroNIDAZOLE/NS 500 MG/100 ML PIGGYBACK 100 MG IV ×3 (05:34→22:30)
[2023-10-09] MEDS: Levothyroxine Sodium 112 MCG TABLET PO (05:34)
[2023-10-09 06:58] LABS: Glucose, Whole Blood 119 mg/dL (60-115)
[2023-10-09 07:18] LABS: Hematocrit 27.3 % (37.0-47.0); Hemoglobin 8.8 g/dl (12.0-16.0); Mean Corpuscular HGB Conc 32.2 g/dl (31.0-35.0); Mean Corpuscular Hemoglobin 31.5 pg (27.0-33.0); Mean Corpuscular Volume 97.8 fL (80.0-98.0); Mean Platelet Volume 9.6 fL (9.4-12.3); NRBC Pct Auto 0.1 /100WBC (0.0-0.2); Platelet Count 202 X10*3/uL (160-400); Red Blood Count 2.79 X10*6/uL (4.20-5.50); Red Cell Distribution Width 16.8 % (11.0-16.0); White Blood Count 13.5 X10*3/uL (4.8-10.8)
[2023-10-09 07:19] LABS: Anion Gap 13 (12-20); Blood Urea Nitrogen 15 mg/dL (9-16); Calcium 8.1 mg/dL (8.4-10.2); Carbon Dioxide 20 mmol/L (22-29); Chloride 105 mmol/L (96-108); Creatinine Clr Calc Pharmacy 38.3; Estimated Glomerular Filt Rate 38; Glucose Fasting 126 mg/dL (60-99); Potassium 3.6 mmol/L (3.3-5.1); Sodium 134 mmol/L (135-145)
[2023-10-09 08:00] VITALS: BP 104/55; PULSE 87; RESP 18; TEMP 37.2; O2SAT 96
--- NOTE | 2023-10-09 08:46 | HO.PM.IMPN ---
Subjective Subjective Date of Service: 10/09/23 Interval History: stool in ostomy, eating well Physical Exam Vital Signs: Vital Signs: Last Vital Signs Temp 98.9 F 10/09/23 08:00 Pulse 87 10/09/23 08:00 Resp 18 10/09/23 08:00 BP 104/55 L 10/09/23 08:00 Pulse Ox 96 10/09/23 08:00 O2 Del Method Room Air 10/09/23 08:00 O2 Flow Rate 2 10/07/23 15:39 BMI result Body Mass Index 33.8 Const: Other: Looks well, sitting up on bed General: comfortable and no acute distress Resp: Effort & Inspection: normal respiratory effort Cardio: Rhythm: regular rhythm GI: Other: Has large amounts of stools in stoma, unable to directly visualize the stoma itself at this time, dressings dry Palpation (GI): Soft to palpation, not firm and no guarding Objective Data Active Medications Ascorbic Acid (Ascorbic Acid 500 Mg Tablet) 500 mg PO DAILY [facility] Last Admin: 10/08/23 10:41 Dose: 500 mg Documented By: MONIQUE Atorvastatin Calcium (Atorvastatin Calcium 10 Mg Tablet) 10 mg PO DAILY@1700 [facility] Last Admin: 10/08/23 17:28 Dose: 10 mg Documented By: SID Calcium Carbonate (Calcium Carbonate 750 Mg Tab.Chew) 750 mg PO Q4H PRN PRN Reason: Heartburn Glucose (Glucose Gel 15 Gm Gel..Gram.) 15 gm PO Q15M PRN; Protocol PRN Reason: per Hypoglycemia Standing Ord. Heparin Sodium (Porcine) (Heparin Sodium,Porcine 5,000 Unit/Ml Vial) 5,000 unit SUBCUT Q12H [facility] Last Admin: 10/08/23 22:08 Dose: 5,000 unit Documented By: JOSE Dextrose (D10) 250 mls @ 750 mls/hr IV Q15M PRN; Protocol PRN Reason: per Hypoglycemia Standing Ord. Ceftriaxone Sodium 1 gm/ (Sodium Chloride) 50 mls @ 100 mls/hr IV Q24H [facility] Last Infusion: 10/08/23 21:25 Dose: Infused Documented By: ZAC Metronidazole (Flagyl) 500 mg in 100 mls @ 100 mls/hr IV Q8H [facility] Last Infusion: 10/09/23 06:58 Dose: Infused Documented By: ZAC Phenylephrine HCl 20 mg/ (Sodium Chloride) 252 mls @ 0 mls/hr IVCONT .Q0M [facility]; Protocol Insulin Human Lispro (Insulin Lispro 100 Unit/Ml 3 Ml Vial) 0 unit SUBCUT QIDACHS [facility]; Protocol Last Admin: 10/09/23 07:23 Dose: Not Given Documented By: CEDRICK Non-Admin Reason: No Insulin Coverage Levothyroxine Sodium (Levothyroxine Sodium 112 Mcg Tablet) 112 mcg PO DAILY@0600 [facility] Last Admin: 10/09/23 05:34 Dose: 112 mcg Documented By: JOSE Magnesium Hydroxide (Milk Of Magnesia 30 Ml Oral.Susp) 30 ml PO DAILY PRN PRN Reason: Constipation Melatonin (Melatonin 3 Mg Tablet) 6 mg PO BEDTIME PRN PRN Reason: Insomnia Morphine Sulfate (Morphine Sulfate 4 Mg/Ml Cartridge) 3 mg IVPUSH Q4H PRN; Protocol PRN Reason: Pain, Severe (Pain Scale 7-10) Last Admin: 10/09/23 03:22 Dose: 3 mg Documented By: JOSE Ondansetron HCl (Ondansetron Hcl 4 Mg/2 Ml Vial) 4 mg IVPUSH Q8H PRN PRN Reason: Nausea and Vomiting Last Admin: 10/04/23 14:20 Dose: 4 mg Documented By: STEFANIA Oxycodone HCl (Oxycodone Hcl Immed Release 5 Mg Tablet) 5 mg PO Q4H PRN PRN Reason: Pain, Moderate(Pain Scale 4-6) Last Admin: 10/08/23 05:47 Dose: 5 mg Documented By: JOSE Pyridoxine HCl (Pyridoxine Hcl (Vitamin B6) 50 Mg Tablet) 100 mg PO DAILY [facility] Last Admin: 10/08/23 10:42 Dose: 100 mg Documented By: MONIQUE Sodium Chloride (0.9 % Sodium Chloride Flush 3 Ml Syringe) 3 ml IVFLUSH QSHIFT [facility] Last Admin: 10/08/23 20:46 Dose: 3 ml Documented By: JOSE Vitamin D (Cholecalciferol (Vitamin D3) 25 Mcg Tablet) 50 mcg PO DAILY [facility] Last Admin: 10/08/23 10:41 Dose: 50 mcg Documented By: MONIQUE Labs 10/09/23 06:12 10/09/23 06:12 Labs: Laboratory Results - last 24 hr 10/08/23 10/08/23 10/08/23 11:17 16:07 19:57 MCV MCH MCHC RDW Plt Count MPV Absolute Nucleated RBC Nucleated RBC % (auto) Anion Gap Estim Creat Clear Calc Estimated GFR POC Glucose 142 H 136 H 154 H Fasting Glucose Calcium 10/09/23 10/09/23 06:12 06:48 MCV 97.8 MCH 31.5 MCHC 32.2 RDW 16.8 H Plt Count 202 MPV 9.6 Absolute Nucleated RBC 0.020 H Nucleated RBC % (auto) 0.1 Anion Gap 13 Estim Creat Clear Calc 38.3 Estimated GFR 38 POC Glucose 119 H Fasting Glucose 126 H Calcium 8.1 L Microbiology Microbiology Results: Microbiology 10/03/23 23:48 Blood Culture - Final Blood - Venous No growth after 5 days. Assessment and Plan (1) Mural thickening of sigmoid colon: Status: Acute Plan 78F PMH retroperitoneal abscess, hypothyroidism, [id number] diabetes mellitus, mood disorder who presented to the emergency department for abdominial pain, n/v due to colonic restriction 02/08 with gpc in clusters was staph epi, contaminant sigmoid stricture, colonic obstruction - previous biopsy negative for ibd or malignancy, possibly due to diverticulitis s/p resection and ostomy 10/06/23 stool in ostomy advanced to solids, tolerating continue rocephin and flagyl FELICITA improved, lasix and lisinopril held diabetes mellitus sliding scale Hypothyroidism continue levothyroxine. Essential hypertension Lasix, lisinopril held for felicita HLD continue statin obesity weight loss recommended DVT prophylaxis - hep sq full code reason for continued hospitalization: dispo planning Quality Stroke Does the patient have a stroke diagnosis?: No VTE Prior VTE?: No VTE Risk Level:: Medical - moderate - high VTE Device Contraindication: N/A - Device Ordered VTE Drug Contraindication: Treatment Not Indicated
[2023-10-09] MEDS: Ascorbic Acid 500 MG TABLET PO (09:07)
[2023-10-09] MEDS: Cholecalciferol (Vitamin D3) 25 MCG TABLET 50 MCG PO (09:07)
[2023-10-09] MEDS: Pyridoxine HCl (Vitamin B6) 50 MG TABLET 100 MG PO (09:07)
[2023-10-09] MEDS: 0.9 % Sodium Chloride Flush 3 ML SYRINGE IVFLUSH ×2 (09:08→14:32)
--- NOTE | 2023-10-09 09:36 | P.PNGS_ITS ---
Subjective Subjective Date of Service: 10/09/23 Interval history: Describes pain on incisions, appropriate for postop course Tolerating regular diet well Stoma functioning well She is able to ambulate short distances with a walker and with assistance Physical Exam 2 Vital Signs: Vital Signs: Last Vital Signs Temp 98.9 F 10/09/23 08:00 Pulse 87 10/09/23 08:00 Resp 18 10/09/23 08:00 BP 104/55 L 10/09/23 08:00 Pulse Ox 96 10/09/23 08:00 O2 Del Method Room Air 10/09/23 08:00 O2 Flow Rate 2 10/07/23 15:39 BMI result Body Mass Index 33.8 Const: General: comfortable and no acute distress Resp: Effort & Inspection: normal respiratory effort Cardio: Rate: regular rate GI: Other: Midline incision well healing, clean, not infected, stoma functioning well good output; stoma retracted but appears viable Palpation (GI): Soft to palpation Objective Data Active Medications Ascorbic Acid (Ascorbic Acid 500 Mg Tablet) 500 mg PO DAILY [facility] Last Admin: 10/09/23 09:07 Dose: 500 mg Documented By: CEDRICK Atorvastatin Calcium (Atorvastatin Calcium 10 Mg Tablet) 10 mg PO DAILY@1700 [facility] Last Admin: 10/08/23 17:28 Dose: 10 mg Documented By: SID Calcium Carbonate (Calcium Carbonate 750 Mg Tab.Chew) 750 mg PO Q4H PRN PRN Reason: Heartburn Glucose (Glucose Gel 15 Gm Gel..Gram.) 15 gm PO Q15M PRN; Protocol PRN Reason: per Hypoglycemia Standing Ord. Heparin Sodium (Porcine) (Heparin Sodium,Porcine 5,000 Unit/Ml Vial) 5,000 unit SUBCUT Q12H [facility] Last Admin: 10/08/23 22:08 Dose: 5,000 unit Documented By: JOSE Dextrose (D10) 250 mls @ 750 mls/hr IV Q15M PRN; Protocol PRN Reason: per Hypoglycemia Standing Ord. Ceftriaxone Sodium 1 gm/ (Sodium Chloride) 50 mls @ 100 mls/hr IV Q24H [facility] Last Infusion: 10/08/23 21:25 Dose: Infused Documented By: ZAC Metronidazole (Flagyl) 500 mg in 100 mls @ 100 mls/hr IV Q8H [facility] Last Infusion: 10/09/23 06:58 Dose: Infused Documented By: ZAC Phenylephrine HCl 20 mg/ (Sodium Chloride) 252 mls @ 0 mls/hr IVCONT .Q0M [facility]; Protocol Insulin Human Lispro (Insulin Lispro 100 Unit/Ml 3 Ml Vial) 0 unit SUBCUT QIDACHS [facility]; Protocol Last Admin: 10/09/23 07:23 Dose: Not Given Documented By: CEDRICK Non-Admin Reason: No Insulin Coverage Levothyroxine Sodium (Levothyroxine Sodium 112 Mcg Tablet) 112 mcg PO DAILY@0600 [facility] Last Admin: 10/09/23 05:34 Dose: 112 mcg Documented By: JOSE Magnesium Hydroxide (Milk Of Magnesia 30 Ml Oral.Susp) 30 ml PO DAILY PRN PRN Reason: Constipation Melatonin (Melatonin 3 Mg Tablet) 6 mg PO BEDTIME PRN PRN Reason: Insomnia Morphine Sulfate (Morphine Sulfate 4 Mg/Ml Cartridge) 3 mg IVPUSH Q4H PRN; Protocol PRN Reason: Pain, Severe (Pain Scale 7-10) Last Admin: 10/09/23 09:16 Dose: 3 mg Documented By: CEDRICK Ondansetron HCl (Ondansetron Hcl 4 Mg/2 Ml Vial) 4 mg IVPUSH Q8H PRN PRN Reason: Nausea and Vomiting Last Admin: 10/04/23 14:20 Dose: 4 mg Documented By: STEFANIA Oxycodone HCl (Oxycodone Hcl Immed Release 5 Mg Tablet) 5 mg PO Q4H PRN PRN Reason: Pain, Moderate(Pain Scale 4-6) Last Admin: 10/08/23 05:47 Dose: 5 mg Documented By: JOSE Pyridoxine HCl (Pyridoxine Hcl (Vitamin B6) 50 Mg Tablet) 100 mg PO DAILY [facility] Last Admin: 10/09/23 09:07 Dose: 100 mg Documented By: CEDRICK Sodium Chloride (0.9 % Sodium Chloride Flush 3 Ml Syringe) 3 ml IVFLUSH QSHIFT [facility] Last Admin: 10/09/23 09:08 Dose: 3 ml Documented By: CEDRICK Vitamin D (Cholecalciferol (Vitamin D3) 25 Mcg Tablet) 50 mcg PO DAILY [facility] Last Admin: 10/09/23 09:07 Dose: 50 mcg Documented By: CEDRICK Labs 10/09/23 06:12 10/09/23 06:12 Labs: Laboratory Results - last 24 hr 10/08/23 10/08/23 10/08/23 11:17 16:07 19:57 MCV MCH MCHC RDW Plt Count MPV Absolute Nucleated RBC Nucleated RBC % (auto) Anion Gap Estim Creat Clear Calc Estimated GFR POC Glucose 142 H 136 H 154 H Fasting Glucose Calcium 10/09/23 10/09/23 06:12 06:48 MCV 97.8 MCH 31.5 MCHC 32.2 RDW 16.8 H Plt Count 202 MPV 9.6 Absolute Nucleated RBC 0.020 H Nucleated RBC % (auto) 0.1 Anion Gap 13 Estim Creat Clear Calc 38.3 Estimated GFR 38 POC Glucose 119 H Fasting Glucose 126 H Calcium 8.1 L Microbiology Microbiology Results: Microbiology 10/03/23 23:48 Blood Culture - Final Blood - Venous No growth after 5 days. Procedures Date of Service Date of Service: 10/09/23 Progress Note: A&P Assessment and plan (1) Partial obstruction of colon: Status: Acute Assessment and Plan: Status post Vicki's procedure Doing well overall Tolerating regular diet Creatinine better WBC better Encouraged on ambulation will order for physical therapy consult Time Spent With Patient Time: Total time managing care of this patient today ____ minutes. Quality Stroke Does the patient have a stroke diagnosis?: No VTE Prior VTE?: No VTE Risk Level:: Medical - moderate - high VTE Device Contraindication: N/A - Device Ordered VTE Drug Contraindication: Treatment Not Indicated
[2023-10-09] MEDS: Heparin Sodium,Porcine 5,000 UNIT/ML VIAL 5000 UNIT SUBCUT ×2 (11:01→22:30)
[2023-10-09 11:13] LABS: Glucose, Whole Blood 151 mg/dL (60-115)
[2023-10-09] MEDS: Insulin Lispro 100 UNIT/ML 3 ML VIAL SUBCUT ×3 (12:18→20:28)
[2023-10-09] MEDS: oxyCODONE HCl Immed Release 5 MG TABLET PO ×2 (14:24→18:24)
[2023-10-09 15:35] VITALS: BP 121/57; PULSE 96; RESP 18; TEMP 37.7; O2SAT 94
[2023-10-09 16:41] LABS: Glucose, Whole Blood 151 mg/dL (60-115)
[2023-10-09] MEDS: Atorvastatin Calcium 10 MG TABLET PO (16:54)
[2023-10-09 19:44] VITALS: BP 113/53; PULSE 94; RESP 18; TEMP 36.8; O2SAT 97
[2023-10-09 20:16] LABS: Glucose, Whole Blood 156 mg/dL (60-115)
[2023-10-09] MEDS: cefTRIAXone sodium 1 GM in 0.9 % Sodium Chloride 50 ML IV (20:28)
[2023-10-09 23:32] VITALS: BP 127/58; PULSE 92; RESP 20; TEMP 36.3; O2SAT 98
[2023-10-10] MEDS: 0.9 % Sodium Chloride Flush 3 ML SYRINGE IVFLUSH ×4 (00:05→20:08)
[2023-10-10] MEDS: oxyCODONE HCl Immed Release 5 MG TABLET PO ×3 (02:23→13:01)
[2023-10-10 03:12] VITALS: BP 116/57; PULSE 93; RESP 18; TEMP 36.7; O2SAT 97
[2023-10-10] MEDS: Morphine Sulfate 4 MG/ML CARTRIDGE 3 MG IVPUSH ×2 (03:50→20:18)
[2023-10-10] MEDS: metroNIDAZOLE/NS 500 MG/100 ML PIGGYBACK 100 MG IV (05:49)
[2023-10-10] MEDS: Levothyroxine Sodium 112 MCG TABLET PO (05:49)
[2023-10-10 07:05] VITALS: BP 122/60; PULSE 83; RESP 16; TEMP 36.2; O2SAT 97
[2023-10-10 07:44] LABS: Glucose, Whole Blood 152 mg/dL (60-115)
[2023-10-10] MEDS: Insulin Lispro 100 UNIT/ML 3 ML VIAL SUBCUT ×3 (08:14→20:08)
[2023-10-10] MEDS: Pyridoxine HCl (Vitamin B6) 50 MG TABLET 100 MG PO (08:15)
[2023-10-10] MEDS: Cholecalciferol (Vitamin D3) 25 MCG TABLET 50 MCG PO (08:15)
[2023-10-10] MEDS: Ascorbic Acid 500 MG TABLET PO (08:15)
--- NOTE | 2023-10-10 08:42 | PM.PNGS ---
Subjective Subjective Date of Service: 10/10/23 Interval history: Patient appears to be in good spirits this morning although she does complain of abdominal pain in the left upper quadrant. The ostomy is functioning and she is tolerating a regular diet. She is having difficulty with ambulation but has gotten up to the chair and gone to the bathroom. She denies having been evaluated by Physical therapy yet. Physical Exam Vital Signs: Vital Signs: Last Vital Signs Temp 97.2 F 10/10/23 07:05 Pulse 83 10/10/23 07:05 Resp 16 10/10/23 07:05 BP 122/60 10/10/23 07:05 Pulse Ox 97 10/10/23 07:05 O2 Del Method Room Air 10/10/23 07:05 O2 Flow Rate 2 10/07/23 15:39 BMI result Body Mass Index 33.8 Const: General: comfortable and no acute distress Nutritional Appearance: obese Orientation/consciousness: patient oriented x3 Limitations: ambulation with walker Resp: Effort & Inspection: normal respiratory effort, no audible wheezes, no cough and no respiratory distress GI: Other: Abdominal incision is clean, dry, and intact. Ostomy is patent, functioning but retracted. Skin: Other: Warm, dry, no rashes Neuro: General: patient oriented x3 Objective Data Active Medications Ascorbic Acid (Ascorbic Acid 500 Mg Tablet) 500 mg PO DAILY [facility] Last Admin: 10/10/23 08:15 Dose: 500 mg Documented By: MIHAELA Atorvastatin Calcium (Atorvastatin Calcium 10 Mg Tablet) 10 mg PO DAILY@1700 [facility] Last Admin: 10/09/23 16:54 Dose: 10 mg Documented By: CEDRICK Calcium Carbonate (Calcium Carbonate 750 Mg Tab.Chew) 750 mg PO Q4H PRN PRN Reason: Heartburn Glucose (Glucose Gel 15 Gm Gel..Gram.) 15 gm PO Q15M PRN; Protocol PRN Reason: per Hypoglycemia Standing Ord. Heparin Sodium (Porcine) (Heparin Sodium,Porcine 5,000 Unit/Ml Vial) 5,000 unit SUBCUT Q12H [facility] Last Admin: 10/09/23 22:30 Dose: 5,000 unit Documented By: ZAC Dextrose (D10) 250 mls @ 750 mls/hr IV Q15M PRN; Protocol PRN Reason: per Hypoglycemia Standing Ord. Ceftriaxone Sodium 1 gm/ (Sodium Chloride) 50 mls @ 100 mls/hr IV Q24H [facility] Last Infusion: 10/09/23 21:17 Dose: Infused Documented By: AZC Metronidazole (Flagyl) 500 mg in 100 mls @ 100 mls/hr IV Q8H [facility] Last Infusion: 10/10/23 07:26 Dose: Infused Documented By: MIHAELA Insulin Human Lispro (Insulin Lispro 100 Unit/Ml 3 Ml Vial) 0 unit SUBCUT QIDACHS [facility]; Protocol Last Admin: 10/10/23 08:14 Dose: 2 unit Documented By: MIHAELA Levothyroxine Sodium (Levothyroxine Sodium 112 Mcg Tablet) 112 mcg PO DAILY@0600 [facility] Last Admin: 10/10/23 05:49 Dose: 112 mcg Documented By: ZAC Magnesium Hydroxide (Milk Of Magnesia 30 Ml Oral.Susp) 30 ml PO DAILY PRN PRN Reason: Constipation Melatonin (Melatonin 3 Mg Tablet) 6 mg PO BEDTIME PRN PRN Reason: Insomnia Morphine Sulfate (Morphine Sulfate 4 Mg/Ml Cartridge) 3 mg IVPUSH Q4H PRN; Protocol PRN Reason: Pain, Severe (Pain Scale 7-10) Last Admin: 10/10/23 03:50 Dose: 3 mg Documented By: ZAC Ondansetron HCl (Ondansetron Hcl 4 Mg/2 Ml Vial) 4 mg IVPUSH Q8H PRN PRN Reason: Nausea and Vomiting Last Admin: 10/04/23 14:20 Dose: 4 mg Documented By: STEFANIA Oxycodone HCl (Oxycodone Hcl Immed Release 5 Mg Tablet) 5 mg PO Q4H PRN PRN Reason: Pain, Moderate(Pain Scale 4-6) Last Admin: 10/10/23 08:15 Dose: 5 mg Documented By: MIHALEA Pyridoxine HCl (Pyridoxine Hcl (Vitamin B6) 50 Mg Tablet) 100 mg PO DAILY [facility] Last Admin: 10/10/23 08:15 Dose: 100 mg Documented By: MIHAELA Sodium Chloride (0.9 % Sodium Chloride Flush 3 Ml Syringe) 3 ml IVFLUSH QSHIFT [facility] Last Admin: 10/10/23 08:18 Dose: 3 ml Documented By: MIHAELA Vitamin D (Cholecalciferol (Vitamin D3) 25 Mcg Tablet) 50 mcg PO DAILY [facility] Last Admin: 10/10/23 08:15 Dose: 50 mcg Documented By: MIHAELA Labs 10/09/23 06:12 10/09/23 06:12 Labs: Laboratory Results - last 24 hr 10/09/23 10/09/23 10/09/23 11:00 16:32 19:55 POC Glucose 151 H 151 H 156 H 10/10/23 07:07 POC Glucose 152 H Procedures Date of Service Date of Service: 10/10/23 Progress Note: A&P Assessment and plan (1) Partial obstruction of colon: Status: Acute (2) Diverticular disease: Status: Acute Plan POD # 4 following exploratory laparotomy with sigmoid colectomy and end colostomy (Vicki procedure). She is doing quite well and is now tolerating a regular diet and having regular bowel movements per ostomy. Her wounds are clean with no evidence of abscess. Her only issue at this point is ambulation. She has only ambulated short distances and may need short-term rehab. Physical therapy consult is pending. Time Spent With Patient Time: Total time managing care of this patient today ____ minutes. Quality Stroke Does the patient have a stroke diagnosis?: No VTE Prior VTE?: No VTE Risk Level:: Medical - moderate - high VTE Device Contraindication: N/A - Device Ordered VTE Drug Contraindication: Treatment Not Indicated
--- NOTE | 2023-10-10 09:18 | HO.PM.IMPN ---
Subjective Subjective Date of Service: 10/10/23 Interval History: stool in ostomy, eating well Physical Exam Vital Signs: Vital Signs: Last Vital Signs Temp 97.2 F 10/10/23 07:05 Pulse 83 10/10/23 07:05 Resp 16 10/10/23 07:05 BP 122/60 10/10/23 07:05 Pulse Ox 97 10/10/23 07:05 O2 Del Method Room Air 10/10/23 07:05 O2 Flow Rate 2 10/07/23 15:39 BMI result Body Mass Index 33.8 Const: General: comfortable and no acute distress Nutritional Appearance: obese Orientation/consciousness: patient oriented x3 Limitations: ambulation with walker Resp: Effort & Inspection: normal respiratory effort, no audible wheezes, no cough and no respiratory distress GI: Other: Abdominal incision is clean, dry, and intact. Ostomy is patent, functioning but retracted. Skin: Other: Warm, dry, no rashes Neuro: General: patient oriented x3 Objective Data Active Medications Ascorbic Acid (Ascorbic Acid 500 Mg Tablet) 500 mg PO DAILY [facility] Last Admin: 10/10/23 08:15 Dose: 500 mg Documented By: MIHAELA Atorvastatin Calcium (Atorvastatin Calcium 10 Mg Tablet) 10 mg PO DAILY@1700 [facility] Last Admin: 10/09/23 16:54 Dose: 10 mg Documented By: CEDRICK Calcium Carbonate (Calcium Carbonate 750 Mg Tab.Chew) 750 mg PO Q4H PRN PRN Reason: Heartburn Glucose (Glucose Gel 15 Gm Gel..Gram.) 15 gm PO Q15M PRN; Protocol PRN Reason: per Hypoglycemia Standing Ord. Heparin Sodium (Porcine) (Heparin Sodium,Porcine 5,000 Unit/Ml Vial) 5,000 unit SUBCUT Q12H [facility] Last Admin: 10/09/23 22:30 Dose: 5,000 unit Documented By: ZAC Dextrose (D10) 250 mls @ 750 mls/hr IV Q15M PRN; Protocol PRN Reason: per Hypoglycemia Standing Ord. Ceftriaxone Sodium 1 gm/ (Sodium Chloride) 50 mls @ 100 mls/hr IV Q24H [facility] Last Infusion: 10/09/23 21:17 Dose: Infused Documented By: ZAC Metronidazole (Flagyl) 500 mg in 100 mls @ 100 mls/hr IV Q8H [facility] Last Infusion: 10/10/23 07:26 Dose: Infused Documented By: MIHAELA Insulin Human Lispro (Insulin Lispro 100 Unit/Ml 3 Ml Vial) 0 unit SUBCUT QIDACHS [facility]; Protocol Last Admin: 10/10/23 08:14 Dose: 2 unit Documented By: MIHAELA Levothyroxine Sodium (Levothyroxine Sodium 112 Mcg Tablet) 112 mcg PO DAILY@0600 [facility] Last Admin: 10/10/23 05:49 Dose: 112 mcg Documented By: ZAC Magnesium Hydroxide (Milk Of Magnesia 30 Ml Oral.Susp) 30 ml PO DAILY PRN PRN Reason: Constipation Melatonin (Melatonin 3 Mg Tablet) 6 mg PO BEDTIME PRN PRN Reason: Insomnia Morphine Sulfate (Morphine Sulfate 4 Mg/Ml Cartridge) 3 mg IVPUSH Q4H PRN; Protocol PRN Reason: Pain, Severe (Pain Scale 7-10) Last Admin: 10/10/23 03:50 Dose: 3 mg Documented By: ZAC Ondansetron HCl (Ondansetron Hcl 4 Mg/2 Ml Vial) 4 mg IVPUSH Q8H PRN PRN Reason: Nausea and Vomiting Last Admin: 10/04/23 14:20 Dose: 4 mg Documented By: STEFANIA Oxycodone HCl (Oxycodone Hcl Immed Release 5 Mg Tablet) 5 mg PO Q4H PRN PRN Reason: Pain, Moderate(Pain Scale 4-6) Last Admin: 10/10/23 08:15 Dose: 5 mg Documented By: MIHAELA Pyridoxine HCl (Pyridoxine Hcl (Vitamin B6) 50 Mg Tablet) 100 mg PO DAILY [facility] Last Admin: 10/10/23 08:15 Dose: 100 mg Documented By: MIHAELA Sodium Chloride (0.9 % Sodium Chloride Flush 3 Ml Syringe) [facility] Last Admin: 10/10/23 08:18 Dose: 3 ml Documented By: MIHAELA Vitamin D (Cholecalciferol (Vitamin D3) 25 Mcg Tablet) 50 mcg PO DAILY [facility] Last Admin: 10/10/23 08:15 Dose: 50 mcg Documented By: MIHAELA Labs 10/09/23 06:12 10/09/23 06:12 Labs: Laboratory Results - last 24 hr 10/09/23 10/09/23 10/09/23 11:00 16:32 19:55 POC Glucose 151 H 151 H 156 H 10/10/23 07:07 POC Glucose 152 H Assessment and Plan (1) Mural thickening of sigmoid colon: Status: Acute Plan 78F PMH retroperitoneal abscess, hypothyroidism, [id number] diabetes mellitus, mood disorder who presented to the emergency department for abdominial pain, n/v due to colonic restriction 02/08 with gpc in clusters was staph epi, contaminant sigmoid stricture, colonic obstruction - previous biopsy negative for ibd or malignancy, possibly due to diverticulitis s/p resection and ostomy 10/06/23 stool in ostomy advanced to solids, tolerating continue rocephin and flagyl PT eval FELICITA improved, lasix and lisinopril held diabetes mellitus sliding scale Hypothyroidism continue levothyroxine. Essential hypertension Lasix, lisinopril held for felicita HLD continue statin obesity weight loss recommended DVT prophylaxis - hep sq full code reason for continued hospitalization: dispo planning Quality Stroke Does the patient have a stroke diagnosis?: No VTE Prior VTE?: No VTE Risk Level:: Medical - moderate - high VTE Device Contraindication: N/A - Device Ordered VTE Drug Contraindication: Treatment Not Indicated
[2023-10-10 11:30] LABS: Glucose, Whole Blood 170 mg/dL (60-115)
[2023-10-10] MEDS: Heparin Sodium,Porcine 5,000 UNIT/ML VIAL 5000 UNIT SUBCUT ×2 (11:55→23:44)
[2023-10-10 12:00] VITALS: BP 119/59; PULSE 94; RESP 16; TEMP 36.6; O2SAT 98
--- NOTE | 2023-10-10 12:19 | P.DS_ITS ---
DS: Providers Provider Date of Service: 10/11/23 Date of admission: 10/04/23 03:16 Date of discharge: 10/11/23 Primary care physician: Preston Wang DO Consults: 10/04/23 03:16 Consult to General Surgery Routine Consulting Provider: [facility] Reason for consultation: bowel obstruction 10/04/23 08:14 Consult to Gastroenterology Routine Consulting Provider: [facility] Reason for consultation: persitent nausea/vomiting-?colonic mass/obstruction on ct Has provider been notified: No 10/04/23 14:31 Consult to Nephrology Routine Consulting Provider: [facility] Reason for consultation: melany 10/04/23 14:57 Consult to Wound Care Routine Reason for consultation: left great toe abrasion with old stitches 10/06/23 09:52 Consult to Ostomy Care Routine DS: Diagnosis Discharge Diagnosis (1) Mural thickening of sigmoid colon: Status: Resolved DS: Summary Hospital Course Hospital Course: from initial hpi: 78-year-old female with pertinent history of history of retroperitoneal abscess, hypothyroidism, [id number] diabetes mellitus, mood disorder, hypertension, mixed hyperlipidemia who presents to the emergency department for evaluation of abdominal pain, nausea and vomiting. Patient states his symptoms started 1 day prior to presentation. She has been having periumbilical abdominal discomfort which is constant, nonprogressive, nonradiating and without any relieving factors. She has also been having associated nausea and multiple episodes of nonbloody emesis. Her last bowel movement was 2 days ago. She denies fever, chills, chest discomfort, palpitations, shortness of breath, changes in bowel habits. Does endorse increased urinary frequency and urgency. In the emergency department, patient was found to be septic. Urine concerning for UTI. Imaging concerning for colonic obstruction in general surgery was consulted. hospital course: Patient was admitted for sigmoid stricture with colonic obstruction. Underwent resection and colostomy on 10/06/2023 was also treated with course of IV ceftriaxone and Flagyl. Perioperative period was unremarkable. Patient's diet was slowly advanced and she is now tolerating solid diet and having output and urostomy. She was also noted to have acute kidney injury on admission, she was given IV fluids her Lasix and lisinopril have been held and creatinine improved to baseline. On discharge will restart maintenance Lasix but lisinopril will continue be held as blood pressure has been low normal. For diabetes was continued on sliding scale. For hypothyroidism was continued on levothyroxine. For hypertension lisinopril held as noted. For hyperlipidemia was continue on statin. For obesity weight loss recommended. Patient will be discharged to SNF for STR. Time Attestation Discharge Coordination Time (in mins): 35 Quality: Safe Use of Opioids Does Pt have an Active Cancer Diagnosis on the Problem List?: No Quality: Stroke Does the patient have a stroke diagnosis?: No Physical Exam Vital Signs: Vital Signs: Last Vital Signs Temp 97.2 F 10/10/23 07:05 Pulse 83 10/10/23 07:05 Resp 16 10/10/23 07:05 BP 122/60 10/10/23 07:05 Pulse Ox 97 10/10/23 07:05 O2 Del Method Room Air 10/10/23 07:05 O2 Flow Rate 2 10/07/23 15:39 BMI result Body Mass Index 33.8 Const: General: comfortable and no acute distress Nutritional Appearance: obese Orientation/consciousness: patient oriented x3 Limitations: ambulation with walker Resp: Effort & Inspection: normal respiratory effort, no audible wheezes, no cough and no respiratory distress GI: Other: Abdominal incision is clean, dry, and intact. Ostomy is patent, functioning but retracted. Skin: Other: Warm, dry, no rashes Neuro: General: patient oriented x3 DS: Data Data Completed and Pending Completed studies during hospitalization [Text1]: Procedures Dilation of Right Ureter with Intraluminal Device, Via Natural or Artificial Opening Endoscopic (04/25/23) Drainage of Retroperitoneum with Drainage Device, Percutaneous Approach (12/08/21) Excision of Large Intestine, Via Natural or Artificial Opening Endoscopic, Diagnostic (04/25/23) Extirpation of Matter from Right Ureter, Via Natural or Artificial Opening Endoscopic (04/05/21) Fluoroscopy of Right Kidney, Ureter and Bladder (04/25/23) Pending studies at discharge: Pending at discharge 10/06/23 13:32 Surgical [PTH] Routine Labs on day of discharge: Laboratory Results - last 24 hr 10/09/23 10/09/23 10/10/23 16:32 19:55 07:07 POC Glucose 151 H 156 H 152 H 10/10/23 11:27 POC Glucose 170 H Discharge Plan Discharge Anticipated Discharge Date/Time: 10/10/23 12:14 Patient Disposition: Xfer SNF Discharge Diagnosis: colonic obstruction Referrals: Preston Wang DO [Primary Care Provider] - 1 Week Marino Jimenez MD [Physician] - 1 Week Discharge Medications: New oxycodone 5 mg Tablet 10 mg PO Q4H PRN (Reason: Pain, Moderate(Pain Scale 4-6)) Qty: 15 0RF Rx Instructions: Partial Fill upon patient request. Continued pyridoxine (vitamin B6) 50 mg tablet 100 mg PO DAILY 90 Days Qty: 180 1RF atorvastatin 10 mg tablet 1 tab PO DAILY@1700 metformin 500 mg tablet extended release 24 hr 1 tab PO DAILY@1700 furosemide 40 mg tablet 40 mg PO DAILY Qty: 30 0RF acetaminophen 500 mg Tablet 1,000 mg PO BID PRN (Reason: Pain) ascorbic acid (vitamin C) 500 mg Tablet 500 mg PO DAILY levothyroxine 112 mcg tablet 112 mcg PO DAILY cholecalciferol (vitamin D3) [Vitamin D3] 50 mcg (2,000 unit) tablet 50 mcg PO DAILY Discontinued lisinopril 10 mg tablet 10 mg PO DAILY Discharge Orders: Discharge Order (Routine); Ordered 10/11/23 Ordered By: Reji Caceres Diet: Advance to usual diet Activity on Discharge: As tolerated Stand Alone Forms: Patient Portal Discharge page Print Language: Ivorian Activity Restrictions/Additional Instructions: If the incision area is tender, you may apply an ice pack for short intervals (No more than 20 minutes on, followed by at least 20 minutes off). Do not apply heat. Do not use creams, lotions, or topical antibiotics. These can cause infection or allergic reaction. Ok to shower. You have rowena closing your incision and these will be removed approximately 10-14 days after surgery. NO HEAVY LIFTING (>10lbs) or strenuous activity. Follow up in office with Dr. Jimenez in office in 1 week. ([phone]) Call Your Doctor If: -Your temperature exceeds 101.5? F -You experience excessive pain or swelling -You have an unexpected reaction to medication -You have excessive bleeding -You experience continued vomiting/nausea -Your incision begins to separate -Your incision shows signs of infection such as increased redness, swelling, excessive pain, drainage (light blood or clear fluid is normal) or heat Care Plan Goals: recovery Health Concerns: colonic stricture s/p surgery Plan of Treatment: follow up with surgery Assessment: see above Patient Instructions: Ceftriaxone (By injection), Metronidazole (By injection)
--- NOTE | 2023-10-10 12:21 | P.F2F_ITS ---
Service Date Service Date: 10/10/23 Encounter Date of encounter: 10/10/23 Reasons for Services Signs and symptoms assessed: surgical site pain, difficulty ambvulating Reason for correction: postoperative assessment and/or care, medication management, medication treatment and teach disease management Reason for physical therapy: home safety and mobility and therapeutic exercises Homebound: Leaving the home is medically contraindicated at this time without the asist of a device and/or another person due th the listed conditions above and below. Reason homebound: pain with ambulation Certification: Based on the above findings, I certify that this patient is confined to the home and needs intermittent correction care, physical therapy and/or speech therapy, or continues to need occupational therapy. The patient is under my c are, and I have initiated the establishment of the plan of care. The patient will be followed by a physician who will periodically review the plan of care. Time Spent With Patient Time: Total time managing care of this patient today ____ minutes.
[2023-10-10] MEDS: oxyCODONE HCl Immed Release 5 MG TABLET 10 MG PO ×2 (15:08→18:58)
[2023-10-10 15:11] VITALS: BP 120/57; PULSE 89; RESP 18; TEMP 37; O2SAT 97
--- NOTE | 2023-10-10 15:51 | MHC.CM.PN ---
Addendum entered by Juliann Nava 10/10/23 15:53: PT WILL BE SEEN FOR FOLLOW UP WITH SURGEON IN ONE WEEK. SHE WILL NEED SUPPLIES SENT HOME WITH HER TO LAST UNTIL AFTER THAT APPT Original Note: CM HAS MET WITH PT AND VARUN SEVERAL TIMES OVER THE WEEKEND AND HOLIDAY THEY ARE ADAMANT THEY DO NOT WANT ANY SERVICES IN THE HOME AND PT IS NOT WILLING TO CONSIDER STR PT SAYS SHE WILL ATTEND OUTPATIENT SERVICES NEEDED AND WILL BE ABLE TO MANAGE HER OSTOMY ONCE SHE HAS A TEACH PT WAS GOING TO BE DISCHARGED TODAY, HOWEVER STATED SHE WAS TOLD THE OSTOMY/WOUND RN WOULD DO A TEACH WITH HER TOMORROW PT TEARFUL AND EXPRESSING SHE FEELS SHE NEEDS THAT RN TO DO A TEACH WITH HER DC HELD
[2023-10-10 16:25] LABS: Glucose, Whole Blood 146 mg/dL (60-115)
[2023-10-10] MEDS: Atorvastatin Calcium 10 MG TABLET PO (17:03)
[2023-10-10 19:46] VITALS: BP 106/53; PULSE 98; RESP 18; TEMP 36.9; O2SAT 97
[2023-10-10] MEDS: metFORMIN HCl ER 500 MG TAB.ER.24H PO (20:07)
[2023-10-10] MEDS: cefTRIAXone sodium 1 GM in 0.9 % Sodium Chloride 50 ML IV (20:07)
[2023-10-10 20:21] LABS: Glucose, Whole Blood 180 mg/dL (60-115)
[2023-10-10 23:45] VITALS: BP 130/60; PULSE 88; RESP 18; TEMP 36.5; O2SAT 96
[2023-10-11] MEDS: Morphine Sulfate 4 MG/ML CARTRIDGE 3 MG IVPUSH (03:03)
[2023-10-11 03:45] VITALS: BP 128/62; PULSE 87; RESP 18; TEMP 36.7; O2SAT 97
[2023-10-11] MEDS: Levothyroxine Sodium 112 MCG TABLET PO (05:35)
[2023-10-11 07:33] VITALS: BP 140/63; PULSE 85; RESP 16; TEMP 37.1; O2SAT 98
[2023-10-11 07:50] LABS: Glucose, Whole Blood 104 mg/dL (60-115)
[2023-10-11 08:07] VITALS: BP 140/63; PULSE 85; O2SAT 98
[2023-10-11] MEDS: Pyridoxine HCl (Vitamin B6) 50 MG TABLET 100 MG PO (08:13)
[2023-10-11] MEDS: Ascorbic Acid 500 MG TABLET PO (08:13)
[2023-10-11] MEDS: Cholecalciferol (Vitamin D3) 25 MCG TABLET 50 MCG PO (08:13)
[2023-10-11] MEDS: 0.9 % Sodium Chloride Flush 3 ML SYRINGE IVFLUSH (08:14)
--- NOTE | 2023-10-11 08:19 | P.PNIM_ITS ---
Subjective Subjective Date of Service: 10/11/23 Interval History: stool in ostomy, eating well Physical Exam 2 Vital Signs: Vital Signs: Last Vital Signs Temp 98.7 F 10/11/23 07:33 Pulse 85 10/11/23 08:07 Resp 16 10/11/23 07:33 BP 140/63 H 10/11/23 08:07 Pulse Ox 98 10/11/23 08:07 O2 Del Method Room Air 10/11/23 07:33 O2 Flow Rate 2 10/07/23 15:39 BMI result Body Mass Index 33.8 Const: General: comfortable and no acute distress Nutritional Appearance: o bese Orientation/consciousness: patient oriented x3 Limitations: a mbulation with walker Resp: Effort & Inspection: normal respiratory effort, no audible wheezes, no cough and no respiratory distress GI: Other: Abdominal incision is clean, dry, and intact. Ostomy is patent, functioning but retracted. Skin: Other: Warm, dry, no rashes Neuro: General: patient oriented x3 Objective Data Active Medications Ascorbic Acid (Ascorbic Acid 500 Mg Tablet) 500 mg PO DAILY [facility] Last Admin: 10/11/23 08:13 Dose: 500 mg Documented By: ARTIS Atorvastatin Calcium (Atorvastatin Calcium 10 Mg Tablet) 10 mg PO DAILY@1700 [facility] Last Admin: 10/10/23 17:03 Dose: 10 mg Documented By: MIHAELA Calcium Carbonate (Calcium Carbonate 750 Mg Tab.Chew) 750 mg PO Q4H PRN PRN Reason: Heartburn Glucose (Glucose Gel 15 Gm Gel..Gram.) 15 gm PO Q15M PRN; Protocol PRN Reason: per Hypoglycemia Standing Ord. Heparin Sodium (Porcine) (Heparin Sodium,Porcine 5,000 Unit/Ml Vial) 5,000 unit SUBCUT Q12H [facility] Last Admin: 10/10/23 23:44 Dose: 5,000 unit Documented By: BLAS Dextrose (D10) 250 mls @ 750 mls/hr IV Q15M PRN; Protocol PRN Reason: per Hypoglycemia Standing Ord. Ceftriaxone Sodium 1 gm/ (Sodium Chloride) 50 mls @ 100 mls/hr IV Q24H [facility] Last Infusion: 10/10/23 21:17 Dose: Infused Documented By: RICHIE Insulin Human Lispro (Insulin Lispro 100 Unit/Ml 3 Ml Vial) 0 unit SUBCUT QIDACHS [facility]; Protocol Last Admin: 10/11/23 07:52 Dose: Not Given Documented By: ARTIS Non-Admin Reason: No Insulin Coverage Levothyroxine Sodium (Levothyroxine Sodium 112 Mcg Tablet) 112 mcg PO DAILY@0600 [facility] Last Admin: 10/11/23 05:35 Dose: 112 mcg Documented By: BLAS Magnesium Hydroxide (Milk Of Magnesia 30 Ml Oral.Susp) 30 ml PO DAILY PRN PRN Reason: Constipation Melatonin (Melatonin 3 Mg Tablet) 6 mg PO BEDTIME PRN PRN Reason: Insomnia Metformin HCl (Metformin Hcl Er 500 Mg Tab.Er.24h) 500 mg PO BEDTIME [facility] Last Admin: 10/10/23 20:07 Dose: 500 mg Documented By: RICHIE Morphine Sulfate (Morphine Sulfate 4 Mg/Ml Cartridge) 3 mg IVPUSH Q4H PRN; Protocol PRN Reason: Pain, Severe (Pain Scale 7-10) Last Admin: 10/11/23 03:03 Dose: 3 mg Documented By: BLAS Ondansetron HCl (Ondansetron Hcl 4 Mg/2 Ml Vial) 4 mg IVPUSH Q8H PRN PRN Reason: Nausea and Vomiting Last Admin: 10/04/23 14:20 Dose: 4 mg Documented By: STEFANIA Oxycodone HCl (Oxycodone Hcl Immed Release 5 Mg Tablet) 10 mg PO Q4H PRN PRN Reason: Pain, Moderate(Pain Scale 4-6) Last Admin: 10/10/23 18:58 Dose: 10 mg Documented By: BILL Pyridoxine HCl (Pyridoxine Hcl (Vitamin B6) 50 Mg Tablet) 100 mg PO DAILY [facility] Last Admin: 10/11/23 08:13 Dose: 100 mg Documented By: ARTIS Sodium Chloride (0.9 % Sodium Chloride Flush 3 Ml Syringe) 3 ml IVFLUSH [facility] Last Admin: 10/11/23 08:14 Dose: 3 ml Documented By: ARTIS Vitamin D (Cholecalciferol (Vitamin D3) 25 Mcg Tablet) 50 mcg PO DAILY [facility] Last Admin: 10/11/23 08:13 Dose: 50 mcg Documented By: ARTIS Labs 10/09/23 06:12 10/09/23 06:12 Labs: Laboratory Results - last 24 hr 10/10/23 10/10/23 10/10/23 11:27 16:19 19:48 POC Glucose 170 H 146 H 180 H 10/11/23 07:41 POC Glucose 104 Assessment and Plan (1) Mural thickening of sigmoid colon: Status: Resolved Plan 78F PMH retroperitoneal abscess, hypothyroidism, [id number] diabetes mellitus, mood disorder who presented to the emergency department for abdominial pain, n/v due to colonic restriction 02/08 with gpc in clusters was staph epi, contaminant sigmoid stricture, colonic obstruction - previous biopsy negative for ibd or malignancy, possibly due to diverticulitis s/p resection and ostomy 10/06/23 stool in ostomy advanced to solids, tolerating PT eval FELICITA improved, lasix and lisinopril held diabetes mellitus sliding scale Hypothyroidism continue levothyroxine. Essential hypertension Lasix, lisinopril held for felicita HLD continue statin obesity weight loss recommended DVT prophylaxis - hep sq full code reason for continued hospitalization: dispo planning Quality Stroke Does the patient have a stroke diagnosis?: No VTE Prior VTE?: No VTE Risk Level:: Medical - moderate - high VTE Device Contraindication: N/A - Device Ordered VTE Drug Contraindication: Treatment Not Indicated
--- NOTE | 2023-10-11 08:32 | P.PNNP_ITS ---
Subjective Subjective Date of Service: 10/11/23 Interval history: Events noted; All recent data reviewed Physical Exam 2 Vital Signs: Vital Signs: Last Vital Signs Temp 98.7 F 10/11/23 07:33 Pulse 85 10/11/23 08:07 Resp 16 10/11/23 07:33 BP 140/63 H 10/11/23 08:07 Pulse Ox 98 10/11/23 08:07 O2 Del Method Room Air 10/11/23 07:33 O2 Flow Rate 2 10/07/23 15:39 BMI result Body Mass Index 33.8 Const: General: no acute distress Eyes: EOM: EOMs intact bilaterally Neck: Neck: Yes supple Resp: Auscultation: diminished lung sounds Cardio: Rate: regular rate GI: Palpation (GI): Soft to palpation Neuro: General: moves all extremities Objective Data Labs 10/09/23 06:12 10/09/23 06:12 Labs: Laboratory Results - last 24 hr 10/10/23 10/10/23 10/10/23 11:27 16:19 19:48 POC Glucose 170 H 146 H 180 H 10/11/23 07:41 POC Glucose 104 Microbiology Microbiology Results: Microbiology 10/03/23 23:48 Blood - Venous Blood Culture - Final No growth after 5 days. 10/03/23 23:50 Blood - Venous Blood Culture - Final Coag negative Staphylococcus 10/03/23 16:27 Urine clean catch - Clean Catch Midstream Urine Culture - Final Procedures Date of Service Date of Service: 10/11/23 Assessment & Plan Assessment and plan (1) Acute kidney injury superimposed on CKD: Status: Acute Plan FELICITA superimposed on CKD due to tubular injury UO good; Renal function improved & close to baseline Continue to hold ACEI for now; Shall arrange office F/U when D/Myron Progress Note: Quality Stroke Does the patient have a stroke diagnosis?: No
--- NOTE | 2023-10-11 08:42 | PM.PNGS ---
Subjective Subjective Date of Service: 10/11/23 Interval history: Having some incisional pain, pain around ostomy this morning. Just participated with PT. Tolerating solid diet. Ostomy functioning. Using IV/PO analgesics. Physical Exam Vital Signs: Vital Signs: Last Vital Signs Temp 98.7 F 10/11/23 07:33 Pulse 85 10/11/23 08:07 Resp 16 10/11/23 07:33 BP 140/63 H 10/11/23 08:07 Pulse Ox 98 10/11/23 08:07 O2 Del Method Room Air 10/11/23 07:33 O2 Flow Rate 2 10/07/23 15:39 BMI result Body Mass Index 33.8 Const: General: comfortable, no acute distress and alert Orientation/consciousness: patient oriented x3 Resp: Effort & Inspection: normal respiratory effort GI: Other: ostomy with large amount of soft brown stool in appliance Inspection: No distended and Yes incision (clean) Palpation (GI): Soft to palpation, Tenderness to palpation present (GI) (mild incisional, left side) and no guarding Skin: General skin exam: no rashes or lesions noted Neuro: General: patient oriented x3 and moves all extremities Objective Data Active Medications Ascorbic Acid (Ascorbic Acid 500 Mg Tablet) 500 mg PO DAILY [facility] Last Admin: 10/11/23 08:13 Dose: 500 mg Documented By: ARTIS Atorvastatin Calcium (Atorvastatin Calcium 10 Mg Tablet) 10 mg PO DAILY@1700 [facility] Last Admin: 10/10/23 17:03 Dose: 10 mg Documented By: MIHAELA Calcium Carbonate (Calcium Carbonate 750 Mg Tab.Chew) 750 mg PO Q4H PRN PRN Reason: Heartburn Glucose (Glucose Gel 15 Gm Gel..Gram.) 15 gm PO Q15M PRN; Protocol PRN Reason: per Hypoglycemia Standing Ord. Heparin Sodium (Porcine) (Heparin Sodium,Porcine 5,000 Unit/Ml Vial) 5,000 unit SUBCUT Q12H [facility] Last Admin: 10/10/23 23:44 Dose: 5,000 unit Documented By: BLAS Dextrose (D10) 250 mls @ 750 mls/hr IV Q15M PRN; Protocol PRN Reason: per Hypoglycemia Standing Ord. Ceftriaxone Sodium 1 gm/ (Sodium Chloride) 50 mls @ 100 mls/hr IV Q24H [facility] Last Infusion: 10/10/23 21:17 Dose: Infused Documented By: RICHIE Insulin Human Lispro (Insulin Lispro 100 Unit/Ml 3 Ml Vial) 0 unit SUBCUT QIDACHS [facility]; Protocol Last Admin: 10/11/23 07:52 Dose: Not Given Documented By: ARTIS Non-Admin Reason: No Insulin Coverage Levothyroxine Sodium (Levothyroxine Sodium 112 Mcg Tablet) 112 mcg PO DAILY@0600 [facility] Last Admin: 10/11/23 05:35 Dose: 112 mcg Documented By: BLAS Magnesium Hydroxide (Milk Of Magnesia 30 Ml Oral.Susp) 30 ml PO DAILY PRN PRN Reason: Constipation Melatonin (Melatonin 3 Mg Tablet) 6 mg PO BEDTIME PRN PRN Reason: Insomnia Metformin HCl (Metformin Hcl Er 500 Mg Tab.Er.24h) 500 mg PO BEDTIME [facility] Last Admin: 10/10/23 20:07 Dose: 500 mg Documented By: RICHIE Morphine Sulfate (Morphine Sulfate 4 Mg/Ml Cartridge) 3 mg IVPUSH Q4H PRN; Protocol PRN Reason: Pain, Severe (Pain Scale 7-10) Last Admin: 10/11/23 03:03 Dose: 3 mg Documented By: BLAS Ondansetron HCl (Ondansetron Hcl 4 Mg/2 Ml Vial) 4 mg IVPUSH Q8H PRN PRN Reason: Nausea and Vomiting Last Admin: 10/04/23 14:20 Dose: 4 mg Documented By: STEFANIA Oxycodone HCl (Oxycodone Hcl Immed Release 5 Mg Tablet) 10 mg PO Q4H PRN PRN Reason: Pain, Moderate(Pain Scale 4-6) Last Admin: 10/10/23 18:58 Dose: 10 mg Documented By: BILL Pyridoxine HCl (Pyridoxine Hcl (Vitamin B6) 50 Mg Tablet) 100 mg PO DAILY [facility] Last Admin: 10/11/23 08:13 Dose: 100 mg Documented By: ARTIS Sodium Chloride (0.9 % Sodium Chloride Flush 3 Ml Syringe) 3 ml IVFLUSH QSHIFT [facility] Last Admin: 10/11/23 08:14 Dose: 3 ml Documented By: ARTIS Vitamin D (Cholecalciferol (Vitamin D3) 25 Mcg Tablet) 50 mcg PO DAILY [facility] Last Admin: 10/11/23 08:13 Dose: 50 mcg Documented By: ARTIS Labs 10/09/23 06:12 10/09/23 06:12 Labs: Laboratory Results - last 24 hr 10/10/23 10/10/23 10/10/23 11:27 16:19 19:48 POC Glucose 170 H 146 H 180 H 10/11/23 07:41 POC Glucose 104 Procedures Date of Service Date of Service: 10/11/23 Progress Note: A&P Assessment and plan (1) Diverticular disease: Status: Acute (2) Status post Vicki procedure: Status: Acute Plan POD #5 following exploratory laparotomy with sigmoid colectomy and end colostomy (Vicki procedure). Continues to do very well post op, tolerating diet with good ostomy function. PT recommending STR. Encouraged PO analgesics in preparation for discharge. Stable for dc from surgical standpoint when comfortable on PO analgesics. Cont ostomy education. Time Spent With Patient Time: Total time managing care of this patient today ____ minutes. Quality Stroke Does the patient have a stroke diagnosis?: No VTE Prior VTE?: No VTE Risk Level:: Medical - moderate - high VTE Device Contraindication: N/A - Device Ordered VTE Drug Contraindication: Treatment Not Indicated
[2023-10-11] MEDS: oxyCODONE HCl Immed Release 5 MG TABLET 10 MG PO (09:04)
--- NOTE | 2023-10-11 11:06 | MHC.CM.PN ---
CM REACHED OUT TO [facility] TO DETERMINE IF [facility] WAS SEEING PT, [facility] RN WAS UNABLE TO GIVE CM ANY CURRENT INFO, CM SENT REFERRAL TO [facility], CM WILL REACH OUT TO PRIMARY CONTACT DTR DANITA AT [facility] FILE FIRST ATTEMPT WAS UNSUCCESSFUL.
--- NOTE | 2023-10-11 11:09 | MHC.CM.PN ---
Addendum entered by Dania Arshad RN 10/11/23 13:21: PT ACCEPTED AT [facility] AND WILL DC AT 3PM VIA [facility] FOR BLS TRANSPORT Original Note: IMM 10/11/23, CM MET W/PT ANS AT BEDSIDE, PT AGREEABLE TO STR AND REPORT PREFFERED FACILITY IS [facility], REFERRAL PLACED AND CM WILL FOLLOW, PER HOSPITALIST PT CAN BE MEDICALLY CLEARED FOR DC TODAY.
[2023-10-11 11:37] LABS: Glucose, Whole Blood 206 mg/dL (60-115)
--- NOTE | 2023-10-11 12:00 | HO.OSTOMY ---
Ostomy Consult: Initial Teaching Follow up 78yr old female admitted to [facility] on 10/04/23 and had Hartmans procedure on 10/06/[address] Jimenez and Dr. Avina. See Op note for details. She had Colostomy creation. ?Upon entry into patient's room, she is sitting in her chair and weeping, she reports excessive pain. See Mar patient medicated by direct care nurse. Support and non-pharmacological strategies employed. She appeared anxious and overwhelmed and reports she does not want to learn about her Ostomy at this time. She did not look at her written education nor did she watch educational videos. She denies participation in her ostomy care over the weekend. She at the time is agreeable to rehab placement - direct care and MD notified. Pt was agreeable to me assessing her pouch and Midline with rowena in place CHRISTIANA mild erythema noted - well approximated no drainage note. The pouch was full. Patient educated that the pouch was too full and will need to be emptied sooner in the future - she is not able to stay focused enough to listen or provide meaning full education. The pouch was emptied and she did observe so I verbally walked her through emptying her pouch. She was tearful throughout. Once completed I encouraged her to try to open close a empty clean pouch - she was agreeable and performed multiple times. Given she is refusing much of her teaching she is not yet ready for independent care. Outpatient ostomy nurse will order supplies for home. Pouch was changed yesterday by direct care team and is not in need of a new pouch at this time. Given the patient is not mentally able to focus I will defer pouch change until she will benefit from observing. However the stoma does appear flush to the abdomen and will benefit from Convexity and I suspect she will need a barrier ring to aid in seal and to prevent leaking - will be able to better assess at time of future pouch change should she remain inpatient. ?All questions and concerns addressed at this time. Next teaching session goals: Listen and watch educational video. Demonstrate open and close independently - direct care team to encourage patient to empty with stand by assist
[2023-10-11] MEDS: Insulin Lispro 100 UNIT/ML 3 ML VIAL SUBCUT (12:30)
[2023-10-11] MEDS: Heparin Sodium,Porcine 5,000 UNIT/ML VIAL 5000 UNIT SUBCUT (12:30)
[2023-10-11 21:29] LABS: Anti Glomerular Basement Memb <1.0 AI; Myeloperoxidase Antibody <1.0 AI; Proteinase 3 PR3 Antibodies <1.0 AI
[2023-10-13 16:24] LABS: IgA 415 mg/dL (70-320); IgG 1222 mg/dL (600-1540); IgM 98 mg/dL (50-300)
== END 2023-10-11 15:45 | DRG 853 ==
LOC: HO.ED 10-04 06:14 → HO.EDOVER 10-04 06:32 → HO.S3 10-04 13:07
PROVIDERS: Internal Medicine; Internal Medicine Hypertension Specialist; Nurse Practitioner Family; Surgery; Admitting Provider Student in an Organized Health Care Education/Training Program; Emergency Provider Internal Medicine; PCP Internal Medicine; Visit Provider Internal Medicine
PROC: 0D1M0Z4 Bypass Descending Colon to Cutaneous, Open Approach (ICD-10-PCS; CPT 49000; principal; 2023-10-06 10:30)
DX: A41.9 Sepsis, unspecified organism (principal); N17.0 Acute kidney failure with tubular necrosis; E87.21 Acute metabolic acidosis; K56.690 Other partial intestinal obstruction; K57.20 Diverticulitis of large intestine with perforation and abscess without bleeding; I12.9 Hypertensive chronic kidney disease with stage 1 through stage 4 chronic kidney disease, or unspecified chronic kidney disease; E11.22 Type 2 diabetes mellitus with diabetic chronic kidney disease; N18.9 Chronic kidney disease, unspecified; E03.9 Hypothyroidism, unspecified; E66.9 Obesity, unspecified; G89.18 Other acute postprocedural pain; Z20.822 Contact with and (suspected) exposure to COVID-19; E78.5 Hyperlipidemia, unspecified; Z68.33 Body mass index [BMI] 33.0-33.9, adult; Z87.891 Personal history of nicotine dependence; Z87.442 Personal history of urinary calculi; Z79.84 Long term (current) use of oral hypoglycemic drugs; Z79.890 Hormone replacement therapy; Z79.899 Other long term (current) drug therapy
CPT/HCPCS: 0241U; 36415; 74176; 76775; 80048; 80053; 80202; 81001; 81003; 82248; 82436; 82570; 82784; 82947; 83520; 83605; 83690; 83735; 84133; 84156; 84300; 85025; 85027; 86021; 86160; 86334; 86850; 86900; 86901; 87040; 87086; 87147; 87205; 88307; 92950; 97162; 99285; C1758; J0131; J0330; J0696; J1100; J1170; J1644; J1836; J2270; J2371; J2405; J2550; J2598; J2704; J2795; J3010; J3370; J7120

== ENCOUNTER → 2023-10-03 23:06 | Outpatient (BNV) | payer MEDICARE, SELFPAY | PROVIDERS: Emergency Provider Internal Medicine; PCP Internal Medicine; Visit Provider Student in an Organized Health Care Education/Training Program | DX: K56.699 Other intestinal obstruction unspecified as to partial versus complete obstruction (principal); Z93.3 Colostomy status | CPT/HCPCS: 99223; 99232; 99233; 99239; 99499 ==

== ENCOUNTER → 2023-10-04 03:16 | Outpatient (BNV) | payer MEDICARE, SELFPAY | PROVIDERS: Admitting Provider Student in an Organized Health Care Education/Training Program; Emergency Provider Internal Medicine; PCP Internal Medicine; Visit Provider Internal Medicine | DX: R11.14 Bilious vomiting (principal); K56.600 Partial intestinal obstruction, unspecified as to cause; R10.9 Unspecified abdominal pain; K63.9 Disease of intestine, unspecified; K57.90 Diverticulosis of intestine, part unspecified, without perforation or abscess without bleeding | CPT/HCPCS: 99223 ==

== ENCOUNTER → 2023-10-04 03:16 | Outpatient (BNV) | payer MEDICARE, SELFPAY | PROVIDERS: Admitting Provider Student in an Organized Health Care Education/Training Program; Emergency Provider Internal Medicine; PCP Internal Medicine; Visit Provider Surgery | DX: K57.90 Diverticulosis of intestine, part unspecified, without perforation or abscess without bleeding (principal); Z93.3 Colostomy status | CPT/HCPCS: 44141; 99024; 99222; 99232 ==

== ENCOUNTER → 2023-10-04 03:16 | Outpatient (BNV) | payer MEDICARE, SELFPAY | PROVIDERS: Admitting Provider Student in an Organized Health Care Education/Training Program; Emergency Provider Internal Medicine; PCP Internal Medicine; Visit Provider Internal Medicine Hypertension Specialist | DX: N17.9 Acute kidney failure, unspecified (principal); E11.22 Type 2 diabetes mellitus with diabetic chronic kidney disease; N18.9 Chronic kidney disease, unspecified | CPT/HCPCS: 99223; 99232 ==

== ENCOUNTER 2023-10-26 13:57 | Outpatient (AMB) | payer MEDICARE, SELFPAY ==
--- NOTE | 2023-10-26 14:04 | A.OFFVIS_ITS ---
Intake Visit Reasons: exp lap follow up Intake Note: This patient presents for post-op assessment status post Open sigmoid colectomy, descending colostomy. Pt c/o; reports no complaints pertaining to surgery. Threat Monitoring Analyst Required: No Accompanied by: Other Relationship Allergies chlorpheniramine [From TUSSIONEX] Allergy (Severe, Verified 10/26/23 14:10) HALLUCINATIONS escitalopram [ESCITALOPRAM] Allergy (Severe, Verified 10/26/23 14:10) DISSOCIATIVE REACTION fluoxetine [FLUOXETINE] Allergy (Severe, Verified 10/26/23 14:10) DISSOCIATIVE REACTION hydrocodone [From TUSSIONEX] Allergy (Severe, Verified 10/26/23 14:10) HALLUCINATIONS ibuprofen [IBUPROFEN] Allergy (Severe, Verified 10/26/23 14:10) THROAT SWELLING Sulfa (Sulfonamide Antibiotics) [SULFA (SULFONAMIDE ANTIBIOTICS)] Allergy (Severe, Verified 10/26/23 14:10) DYSPNEA clarithromycin [From BIAXIN] Allergy (Intermediate, Verified 10/26/23 14:10) ABD.PAIN duloxetine [DULOXETINE] Allergy (Intermediate, Verified 10/26/23 14:10) FACIAL NUMBNESS erythromycin base [ERYTHROMYCIN BASE] Allergy (Intermediate, Verified 10/26/23 14:10) RASH Penicillins [PENICILLINS] Allergy (Intermediate, Verified 10/26/23 14:10) RASH tetracycline [TETRACYCLINE] Allergy (Intermediate, Verified 10/26/23 14:10) DIARRHEA ciprofloxacin [From CIPRO] Allergy (Unknown, Verified 10/26/23 14:10) ANAPHYLAXIS codeine [CODEINE] Allergy (Unknown, Verified 10/26/23 14:10) TINNITIS guaifenesin Allergy (Unknown, Verified 10/26/23 14:10) Unknown levofloxacin [From Levaquin] Allergy (Unknown, Verified 10/26/23 14:10) Unknown pregabalin Allergy (Unknown, Verified 10/26/23 14:10) Unknown HPI HPI exp lap follow up: Details: [age] year old female here for a postop visit. She had undergone laparotomy, sigmoid resection and end-colostomy from the left colon for a diverticular stricture last October 06, [address] Jimenez. She was eventually discharged on postop day #6. She is currently in a half-way facility ([facility]). She has good oral intake. She says that her stoma has been functioning well. She denies significant pain. [facility] Medical History Hydroureteronephrosis Wound infection Open wound of back, complicated Cellulitis Frequency of urination Vaginal burning Vaginal itching PMB (postmenopausal bleeding) Cirrhosis of liver Does mobilize using walker PONV (postoperative nausea and vomiting) Left foot drop Fatty liver Fibromyalgia Neuropathy RBBB Cholelithiasis Staghorn calculus Renal calculus, bilateral Renal calyceal dilation determined by ultrasound UTI (urinary tract infection) Diabetes mellitus, type II Ganglion cyst Plantar fasciitis Anxiety OA (osteoarthritis) Obstructive airway disease Hypercholesterolemia Low back pain Sciatica Hypothyroidism HTN (hypertension) Primary osteoarthritis of right knee Retained ureteral stent Renal stones Staghorn calculus Perirectal abscess Surgical History History of colectomy (~10/06/23) Status post cystoscopy with ureteral stent placement History of lumbar discectomy History of lumpectomy of both breasts History of cystoscopy History of lithotripsy Hx of colonoscopy History of surgery Family History Father Alcohol dependence Mother CHF (congestive heart failure) Cancer of breast Mother No problems noted. Other Alcoholic cirrhosis Social History Household Members: Spouse and Significant Other Housing: House Are you a primary physician primary care sports medicine to a significant other at home: No Do you presently have visiting nurse or other home services: No Alcohol intake: never Comment: given pyridium Patient Tobacco Use Status: Former Tobacco user Tobacco use type: Cigarette Years Smoked: 27 Second Hand Smoke Exposure: No Advance Directives Date on File: 04/06/21 service: No Current occupational status: disabled Review of Systems Const Denies chills and Denies fever(s) Card Denies chest pain and Reports dyspnea on exertion Resp Denies cough and Reports dyspnea on exertion GI Details: Has colostomy Reports abdominal pain Physical Exam Const Other: Looks well, on wheelchair but able to walk short distances General: comfortable and no acute distress Nutritional Appearance: obese Resp Effort & Inspection: normal respiratory effort GI Other: Midline incision well healing, colostomy functioning well, rowena in place Palpation (GI): Soft to palpation, not firm and no guarding Assessment & Plan Assessment & Plan (1) Status post Vicki procedure: Code(s): Z93.3 - Colostomy status Category: Surgical Plan: She continues to do well after sigmoid resection for a diverticular stricture. Her incision is healing well. I removed all her skin rowena. There was note of some sero sanguinous drainage from the lower part of her incision along her pannus. Her colostomy is functioning well . She can applied dry dressings to lower part of the incision because of the serosanguineous drainage. I have instructed her to follow up with Dr. Jimneez in about a month. Coding Level of Care Code Global (18519) Diagnoses Status post Vicki procedure Z93.3
== END 2023-10-26 14:19 | disposition home or self-care (01) ==
PROVIDERS: PCP Internal Medicine; Visit Provider Surgery
DX: Z93.3 Colostomy status (principal)
CPT/HCPCS: 99024

== ENCOUNTER → 2023-10-26 13:57 | Outpatient (BNVA) | payer MEDICARE, SELFPAY | PROVIDERS: PCP Internal Medicine; Visit Provider Surgery | DX: Z93.3 Colostomy status (principal); Z98.890 Other specified postprocedural states | CPT/HCPCS: 99212 ==

== ENCOUNTER 2023-10-31 13:34 | Outpatient (AMB) | payer MEDICARE, SELFPAY ==
--- NOTE | 2023-10-31 13:46 | MHC.OFFVIS ---
Intake Visit Reasons: Staple removal area bad odor/bad drainage Intake Note: Patient being seen as an urgent appointment this afternoon for ? wound infection along staple scar on abdomen. Patient c/o: wound tenderness, scar opening up, bad smell. No paperwork sent by Rosetta Wei. Patient states she is currently on abx's. Master Control Engineer Required: No Accompanied by: Spouse Allergies chlorpheniramine [From TUSSIONEX] Allergy (Severe, Verified 10/31/23 13:48) HALLUCINATIONS escitalopram [ESCITALOPRAM] Allergy (Severe, Verified 10/31/23 13:48) DISSOCIATIVE REACTION fluoxetine [FLUOXETINE] Allergy (Severe, Verified 10/31/23 13:48) DISSOCIATIVE REACTION hydrocodone [From TUSSIONEX] Allergy (Severe, Verified 10/31/23 13:48) HALLUCINATIONS ibuprofen [IBUPROFEN] Allergy (Severe, Verified 10/31/23 13:48) THROAT SWELLING Sulfa (Sulfonamide Antibiotics) [SULFA (SULFONAMIDE ANTIBIOTICS)] Allergy (Severe, Verified 10/31/23 13:48) DYSPNEA clarithromycin [From BIAXIN] Allergy (Intermediate, Verified 10/31/23 13:48) ABD.PAIN duloxetine [DULOXETINE] Allergy (Intermediate, Verified 10/31/23 13:48) FACIAL NUMBNESS erythromycin base [ERYTHROMYCIN BASE] Allergy (Intermediate, Verified 10/31/23 13:48) RASH Penicillins [PENICILLINS] Allergy (Intermediate, Verified 10/31/23 13:48) RASH tetracycline [TETRACYCLINE] Allergy (Intermediate, Verified 10/31/23 13:48) DIARRHEA ciprofloxacin [From CIPRO] Allergy (Unknown, Verified 10/31/23 13:48) ANAPHYLAXIS codeine [CODEINE] Allergy (Unknown, Verified 10/31/23 13:48) TINNITIS guaifenesin Allergy (Unknown, Verified 10/31/23 13:48) Unknown levofloxacin [From Levaquin] Allergy (Unknown, Verified 10/31/23 13:48) Unknown pregabalin Allergy (Unknown, Verified 10/31/23 13:48) Unknown HPI Comments Details: Patient presents with her for an extended care facility because of concerns about her incision. She otherwise doing relatively well. She is tolerating a diet. Ostomy is functioning. Use the patient after Babrara who is away at present. [facility] Medical History Hydroureteronephrosis Wound infection Open wound of back, complicated Cellulitis Frequency of urination Vaginal burning Vaginal itching PMB (postmenopausal bleeding) Cirrhosis of liver Does mobilize using walker PONV (postoperative nausea and vomiting) Left foot drop Fatty liver Fibromyalgia Neuropathy RBBB Cholelithiasis Staghorn calculus Renal calculus, bilateral Renal calyceal dilation determined by ultrasound UTI (urinary tract infection) Diabetes mellitus, type II Ganglion cyst Plantar fasciitis Anxiety OA (osteoarthritis) Obstructive airway disease Hypercholesterolemia Low back pain Sciatica Hypothyroidism HTN (hypertension) Primary osteoarthritis of right knee Retained ureteral stent Renal stones Staghorn calculus Perirectal abscess Surgical History History of colectomy (~10/06/23) Status post cystoscopy with ureteral stent placement History of lumbar discectomy History of lumpectomy of both breasts History of cystoscopy History of lithotripsy Hx of colonoscopy History of surgery Family History Father Alcohol dependence Mother CHF (congestive heart failure) Cancer of breast Mother No problems noted. Other Alcoholic cirrhosis Social History Household Members: Spouse and Significant Other Housing: House Are you a primary acute care assistant to a significant other at home: No Do you presently have visiting nurse or other home services: No Alcohol intake: never Comment: given pyridium Patient Tobacco Use Status: Former Tobacco user Tobacco use type: Cigarette Years Smoked: 27 Second Hand Smoke Exposure: No Advance Directives Date on File: 04/06/21 service: No Current occupational status: disabled Physical Exam GI Other: Abdomen very corpulent. Ostomy functioning well. Midline wound is healing by partial 1st intention and secondary intention. No evidence of any infection. Open areas or granulating well. Assessment & Plan Assessment & Plan (1) Postop check: Code(s): Z09 - Encounter for follow-up examination after completed treatment for conditions other than malignant neoplasm Category: Surgical Plan Patient and have been given local wound care including continuing packing dressing changes. Patient's facility through her and patient she will be told that patient can shower and get the incision wet without any compromise. Dressing applied after. Patient was scheduled see Dr. Jimenez in a few weeks time. He should keep that appointment or return p.r.n.. All questions answered. Coding Level of Care Code Global (55002) Diagnoses Postop check Z09
== END 2023-10-31 14:22 | disposition home or self-care (01) ==
PROVIDERS: PCP Internal Medicine; Visit Provider Surgery
DX: Z09 Encounter for follow-up examination after completed treatment for conditions other than malignant neoplasm (principal)
CPT/HCPCS: 99024

== ENCOUNTER → 2023-10-31 13:34 | Outpatient (BNVA) | payer MEDICARE, SELFPAY | PROVIDERS: PCP Internal Medicine; Visit Provider Surgery | DX: Z09 Encounter for follow-up examination after completed treatment for conditions other than malignant neoplasm (principal) | CPT/HCPCS: 99212 ==

== ENCOUNTER 2023-11-07 07:01 | Outpatient (REF) | payer MEDICARE, SELFPAY | END 2023-11-07 07:02 | disposition home or self-care (01) | LOC: HO.MMNH1L 07:01 | PROVIDERS: Visit Provider Hospitalist | DX: Z13.89 Encounter for screening for other disorder (principal) ==

== ENCOUNTER 2023-11-10 10:51 | Outpatient (AMB) | payer MEDICARE, SELFPAY ==
--- NOTE | 2023-11-10 10:46 | MHC.OFFVIS ---
Intake Visit Reasons: CT Results(set) Intake Note: Patient is present for CT RESULTS Urology Medication:VITAMIN B6 Antibiotic Allergy:SULFA,CLARITHROMYCIN, PENICILLIN,CIPROFLOXACIN, LEVOFLOXACIN, ERYTHROMYCIN Blood Thinner:NONE Investment Officer Required: No Allergies chlorpheniramine [From TUSSIONEX] Allergy (Severe, Verified 11/10/23 10:48) HALLUCINATIONS escitalopram [ESCITALOPRAM] Allergy (Severe, Verified 11/10/23 10:48) DISSOCIATIVE REACTION fluoxetine [FLUOXETINE] Allergy (Severe, Verified 11/10/23 10:48) DISSOCIATIVE REACTION hydrocodone [From TUSSIONEX] Allergy (Severe, Verified 11/10/23 10:48) HALLUCINATIONS ibuprofen [IBUPROFEN] Allergy (Severe, Verified 11/10/23 10:48) THROAT SWELLING Sulfa (Sulfonamide Antibiotics) [SULFA (SULFONAMIDE ANTIBIOTICS)] Allergy (Severe, Verified 11/10/23 10:48) DYSPNEA clarithromycin [From BIAXIN] Allergy (Intermediate, Verified 11/10/23 10:48) ABD.PAIN duloxetine [DULOXETINE] Allergy (Intermediate, Verified 11/10/23 10:48) FACIAL NUMBNESS erythromycin base [ERYTHROMYCIN BASE] Allergy (Intermediate, Verified 11/10/23 10:48) RASH Penicillins [PENICILLINS] Allergy (Intermediate, Verified 11/10/23 10:48) RASH tetracycline [TETRACYCLINE] Allergy (Intermediate, Verified 11/10/23 10:48) DIARRHEA ciprofloxacin [From CIPRO] Allergy (Unknown, Verified 11/10/23 10:48) ANAPHYLAXIS codeine [CODEINE] Allergy (Unknown, Verified 11/10/23 10:48) TINNITIS guaifenesin Allergy (Unknown, Verified 11/10/23 10:48) Unknown levofloxacin [From Levaquin] Allergy (Unknown, Verified 11/10/23 10:48) Unknown pregabalin Allergy (Unknown, Verified 11/10/23 10:48) Unknown HPI Comments Details: Xi is a pleasant female. She is a patient of Dr. Wang. She is seen for the following urologic conditions - nephrolithiasis - recurrent UTI Telemedicine Evaluation 15 min Consultation [employer] Mary Video Recent repeat CT shows full healing Has right-sided stent stone placed Will organize for stent removal in office Nephrolithiasis Multiple prior in admission for infection and staghorn - treatment had concurrent abscess 6 months after initial ureteroscopy Intervention - 03/31 right-sided ureteroscopy laser lithotripsy and stent placement - 06/28 completion right ureteroscopy with left ureteroscopy Stone composition - 03/31 Carbonate Apatite (Dahllite) 100% - 06/28 calcium oxalate Imaging - 03/31 CT scan 4 cm right staghorn calculus, 6 mm left Therapeutic plan - suppression antibiotics for recurrent UTI PFSH Medical History (Updated 11/10/23 @ 13:50 by Jose Reis MD) Hydroureteronephrosis Wound infection Open wound of back, complicated Cellulitis Frequency of urination Vaginal burning Vaginal itching PMB (postmenopausal bleeding) Cirrhosis of liver Does mobilize using walker PONV (postoperative nausea and vomiting) Left foot drop Fatty liver Fibromyalgia Neuropathy RBBB Cholelithiasis Staghorn calculus Renal calculus, bilateral Renal calyceal dilation determined by ultrasound UTI (urinary tract infection) Diabetes mellitus, type II Ganglion cyst Plantar fasciitis Anxiety OA (osteoarthritis) Obstructive airway disease Hypercholesterolemia Low back pain Sciatica Hypothyroidism HTN (hypertension) Primary osteoarthritis of right knee Retained ureteral stent Renal stones Staghorn calculus Perirectal abscess Surgical History (Updated 10/31/23 @ 14:01 by Francois Silva MD) History of colectomy (~10/06/23) Status post cystoscopy with ureteral stent placement History of lumbar discectomy History of lumpectomy of both breasts History of cystoscopy History of lithotripsy Hx of colonoscopy History of surgery Family History Father Alcohol dependence Mother CHF (congestive heart failure) Cancer of breast Mother No problems noted. Other Alcoholic cirrhosis Social History Household Members: Spouse and Significant Other Housing: House Are you a primary urgent care nurse practitioner to a significant other at home: No Do you presently have visiting nurse or other home services: No Alcohol intake: never Comment: given pyridium Patient Tobacco Use Status: Former Tobacco user Tobacco use type: Cigarette Years Smoked: 27 Second Hand Smoke Exposure: No Advance Directives Date on File: 04/06/21 service: No Current occupational status: disabled Review of Systems Const All systems reviewed & are unremarkable except as noted in HPI and below Reports no additional complaints Resp Reports no additional complaints GI Reports no additional complaints Reports as per HPI Musc Reports no additional complaints Physical Exam Telemedicine evaluation Appropriate responses Regular breathing rate and rhythm HEENT Head: Yes normal to inspection Ears: hearing grossly normal bilaterally Eyes General: appearance normal, both eyes and all related structures Neck Neck: Yes normal visual inspection Chest Chest palpation & inspection: normal inspection of the chest Resp Effort & Inspection: normal respiratory effort and able to speak in complete sentences Telehealth Telehealth Telehealth Platform: [employer] Location of provider rendering services: practice address Location of patient: address on file Patient Identification confirmed using: Name, : Yes Telehealth method: video Patient verbally consented to treatment: Yes Patient verbally consented to billing insurance company: Yes Patient informed of any privacy concerns related to visit: Yes Minutes spent on Phone/Video with Pt.: 15 Assessment & Plan Assessment & Plan (1) Hydroureteronephrosis: Code(s): N13.30 - Unspecified hydronephrosis Category: Medical Plan Cystoscopy, stent removal in office Patient Instructions: Imaging studies, laboratory and physical exam results were discussed and reviewed in detail. No major barriers to patient understanding were identified. An opportunity to ask questions regarding the treatment plan was provided. All questions were answered. The patient expressed understanding and agreement with the above treatment plan. The patient is aware they should contact our office by phone for worsening of their current condition or the appearance of new urologic symptoms. Compliance is encouraged with any medications and followup testing that is ordered. It is a privilege to participate in the urologic care of your patient. If you have any questions or concerns regarding treatment for the above conditions, or other urologic issues, please do not hesitate to contact me. The office telephone contact is [phone]. This note is constructed using voice recognition software. While every effort has been made to ensure accuracy industrial gas servicer errors may have been included. Yours sincerely, Dr Jose Reis MD, [facility] - Urology Providers of Expert, Compassionate Care for the Genitourinary System Coding Level of Care Code Tele Est Pt Level 3 (02250) Diagnoses Hydroureteronephrosis N13.30
== END 2023-11-10 11:54 | disposition home or self-care (01) ==
LOC: HO.HUSH 10:51
PROVIDERS: PCP Internal Medicine; Visit Provider Urology
DX: N13.30 Unspecified hydronephrosis (principal)
CPT/HCPCS: 99213

== ENCOUNTER → 2023-11-10 10:51 | Outpatient (BNVA) | payer MEDICARE, SELFPAY | PROVIDERS: PCP Internal Medicine; Visit Provider Urology ==

== ENCOUNTER → 2023-11-24 12:38 | Outpatient (BNVA) | payer MEDICARE, SELFPAY | PROVIDERS: PCP Internal Medicine; Visit Provider Surgery ==

== ENCOUNTER 2023-12-01 13:23 | Outpatient (AMB) | payer MEDICARE, SELFPAY ==
--- NOTE | 2023-12-01 13:22 | MHC.OFFVIS ---
Vital Signs 12/01/23 13:29 Height 5 ft 4 in BMI Reason not done Palliative Care Patient Pulse 80 Intake Visit Reasons: one month follow up, exp lap Intake Note: Patient is seen in office for one month follow up visit, post exploratory laparotomy. Pt c/o: admits to increase sharp, stabbing pain, admits to some redness around the area Control Inspector Required: No Accompanied by: Family/Other Allergies chlorpheniramine [From TUSSIONEX] Allergy (Severe, Verified 12/01/23 13:28) HALLUCINATIONS escitalopram [ESCITALOPRAM] Allergy (Severe, Verified 12/01/23 13:28) DISSOCIATIVE REACTION fluoxetine [FLUOXETINE] Allergy (Severe, Verified 12/01/23 13:28) DISSOCIATIVE REACTION hydrocodone [From TUSSIONEX] Allergy (Severe, Verified 12/01/23 13:28) HALLUCINATIONS ibuprofen [IBUPROFEN] Allergy (Severe, Verified 12/01/23 13:28) THROAT SWELLING Sulfa (Sulfonamide Antibiotics) [SULFA (SULFONAMIDE ANTIBIOTICS)] Allergy (Severe, Verified 12/01/23 13:28) DYSPNEA clarithromycin [From BIAXIN] Allergy (Intermediate, Verified 12/01/23 13:28) ABD.PAIN duloxetine [DULOXETINE] Allergy (Intermediate, Verified 12/01/23 13:28) FACIAL NUMBNESS erythromycin base [ERYTHROMYCIN BASE] Allergy (Intermediate, Verified 12/01/23 13:28) RASH Penicillins [PENICILLINS] Allergy (Intermediate, Verified 12/01/23 13:28) RASH tetracycline [TETRACYCLINE] Allergy (Intermediate, Verified 12/01/23 13:28) DIARRHEA ciprofloxacin [From CIPRO] Allergy (Unknown, Verified 12/01/23 13:28) ANAPHYLAXIS codeine [CODEINE] Allergy (Unknown, Verified 12/01/23 13:28) TINNITIS guaifenesin Allergy (Unknown, Verified 12/01/23 13:28) Unknown levofloxacin [From Levaquin] Allergy (Unknown, Verified 12/01/23 13:28) Unknown pregabalin Allergy (Unknown, Verified 12/01/23 13:28) Unknown Medication List - Last Reconciled 12/01/23 by Marino Jimenez MD acetaminophen 1,000 mg PO BID PRN ascorbic acid (vitamin C) 500 mg PO DAILY atorvastatin 1 tab PO DAILY@1700 cholecalciferol (vitamin D3) (Vitamin D3) 50 mcg PO DAILY furosemide 40 mg PO DAILY levothyroxine 112 mcg PO DAILY metformin ER 1 tab PO DAILY@1700 pyridoxine (vitamin B6) 100 mg (2 x 50 mg) PO DAILY 90 days tramadol 50 mg PO BID PRN HPI Comments Details: 78-year-old female patient with a history of diverticular disease status post exploratory laparotomy with Vicki procedure performed on 10/06/2023. She is now home with [facility] 3 times weekly for dressing changes her abdominal wound. Silver alginate is being applied to the abdominal incision followed by ABD pads. She reports soreness from the midline incision. The ostomy is working fine without difficulty. She presents today for wound check. [facility] Medical History Hydroureteronephrosis Wound infection Open wound of back, complicated Cellulitis Frequency of urination Vaginal burning Vaginal itching PMB (postmenopausal bleeding) Cirrhosis of liver Does mobilize using walker PONV (postoperative nausea and vomiting) Left foot drop Fatty liver Fibromyalgia Neuropathy RBBB Cholelithiasis Staghorn calculus Renal calculus, bilateral Renal calyceal dilation determined by ultrasound UTI (urinary tract infection) Diabetes mellitus, type II Ganglion cyst Plantar fasciitis Anxiety OA (osteoarthritis) Obstructive airway disease Hypercholesterolemia Low back pain Sciatica Hypothyroidism HTN (hypertension) Primary osteoarthritis of right knee Retained ureteral stent Renal stones Staghorn calculus Perirectal abscess Surgical History History of colectomy (~10/06/23) Status post cystoscopy with ureteral stent placement History of lumbar discectomy History of lumpectomy of both breasts History of cystoscopy History of lithotripsy Hx of colonoscopy History of surgery Family History Father Alcohol dependence Mother CHF (congestive heart failure) Cancer of breast Mother No problems noted. Other Alcoholic cirrhosis Social History Household Members: Spouse and Significant Other Housing: House Are you a primary adult care manager to a significant other at home: No Do you presently have visiting nurse or other home services: No Alcohol intake: never Comment: given pyridium Patient Tobacco Use Status: Former Tobacco user Tobacco use type: Cigarette Years Smoked: 27 Second Hand Smoke Exposure: No Advance Directives Date on File: 04/06/21 service: No Current occupational status: disabled Physical Exam Vital Signs: Last Vital Signs Pulse 80 12/01/23 13:29 Const General: no acute distress Nutritional Appearance: well nourished Orientation/consciousness: patient oriented x3 Limitations: wheelchair Resp Effort & Inspection: normal respiratory effort, no audible wheezes, no cough and no respiratory distress GI Other: Ostomy is functioning well. Inspection: Yes normal to inspection, Yes incision (Open with granulation tissue at wound base. Wound is healing by secondary ) and Yes Abdominal panniculus present Palpation (GI): Soft to palpation, Tenderness to palpation present (GI) (Midline incision), no guarding and not rigid Neuro General: patient oriented x3 Assessment & Plan Assessment & Plan (1) Status post Vicki procedure: Code(s): Z93.3 - Colostomy status Category: Surgical Plan 78-year-old female patient with a history of diverticulitis status post Vicki procedure now with open incision which is closing nicely. She does have incisional pain and requested additional prescription for pain medication. She had previously been receiving tramadol which has been refilled. I have asked her to return in 1 month to discuss closure of the colostomy. Recommended she continue to increase her physical activity while at home to build up her endurance in preparation for the closure of colostomy. We will discuss the closure of colostomy further at our next visit. Medications: New tramadol 50 mg PO BID PRN 14 tabs 0RF pain (scale score 7-10) Z93.3 - Colostomy status Coding Level of Care Code Global (91567) Diagnoses Status post Vicki procedure Z93.3
[2023-12-01 13:29] VITALS: PULSE 80
== END 2023-12-01 14:07 | disposition home or self-care (01) ==
PROVIDERS: PCP Internal Medicine; Visit Provider Surgery
DX: Z93.3 Colostomy status (principal)
CPT/HCPCS: 99024

== ENCOUNTER → 2023-12-01 13:23 | Outpatient (BNVA) | payer MEDICARE, SELFPAY | PROVIDERS: PCP Internal Medicine; Visit Provider Surgery | DX: Z48.815 Encounter for surgical aftercare following surgery on the digestive system (principal); Z93.3 Colostomy status | CPT/HCPCS: 99212 ==

== ENCOUNTER 2023-12-09 11:11 | Outpatient (REF) | payer MEDICARE, SELFPAY ==
[2023-12-09 13:25] LABS: MANUAL DIFF FLAG NO
[2023-12-09 13:42] LABS: Basophils Percent Auto 0.4 % (0-2); Eosinophils Absolute Auto 0.1 X10*3/uL (0.0-0.4); Hematocrit 33.7 % (37.0-47.0); Hemoglobin 10.3 g/dl (12.0-16.0); Imm Gran Abs Auto 0.09 X10*3/uL (0.00-0.03); Imm Gran Pct Auto 0.9 % (0.0-0.4); Lymphocytes Absolute Auto 1.6 X10*3/uL (1.2-4.9); Mean Corpuscular HGB Conc 30.6 g/dl (31.0-35.0); Mean Corpuscular Hemoglobin 26.6 pg (27.0-33.0); Mean Corpuscular Volume 87.1 fL (80.0-98.0); Mean Platelet Volume 9.6 fL (9.4-12.3); Monocytes Absolute Auto 0.7 X10*3/uL (0.1-1.2); Monocytes Percent Auto 6.5 % (2-11); Neutrophils Absolute Auto 7.6 x10*3/uL (2.0-8.3); Neutrophils Percent Auto 75.2 % (45-73); Platelet Count 267 X10*3/uL (160-400); Red Blood Count 3.87 X10*6/uL (4.20-5.50); Red Cell Distribution Width 15.2 % (11.0-16.0)
[2023-12-09 14:00] LABS: Estimated Average Glucose 108 mg/dL; Hemoglobin A1c % 5.4 % (<6.0); Total Hemoglobin (HGBA1C) 2853.3371 umol/L
[2023-12-09 14:24] LABS: Alanine Aminotransferase 21 U/L (0-31); Albumin Level 3.5 g/dL (3.5-5.0); Alkaline Phosphatase 59 U/L (39-117); Anion Gap 16 (12-20); Aspartate Amino Transferase 41 U/L (5-31); Bilirubin Total 0.7 mg/dL (0.0-1.0); Blood Urea Nitrogen 16 mg/dL (9-16); Calcium 9.1 mg/dL (8.4-10.2); Carbon Dioxide 19 mmol/L (22-29); Chloride 106 mmol/L (96-108); Cholesterol 113 mg/dL (<200); Estimated Glomerular Filt Rate 45; Glucose Fasting 136 mg/dL (60-99); HDL Cholesterol 45 mg/dL (>40); Iron 25 mcg/dL (30-160); LDL Cholesterol Calculated 51 mg/dL (<100); Percent Iron Saturation 13 % (15-50); Potassium 4.1 mmol/L (3.3-5.1); Sodium 137 mmol/L (135-145); Total Iron Binding Capacity 191 mcg/dL (228-428); Total Protein 7.8 g/dL (6.5-8.0); Triglycerides 88 mg/dL (<150); Unsaturated Iron Binding 166 ug/dL
[2023-12-09 14:29] LABS: Ferritin 79 ng/mL (10-250); Thyroid Stimulating Hormone 2.91 uIU/mL (0.32-4.0); Vitamin D 25-OH Total 23.4 ng/mL (>30)
== END 2023-12-09 11:12 | disposition home or self-care (01) ==
LOC: HO.HMGCLDS 11:11
PROVIDERS: PCP Internal Medicine; Visit Provider Internal Medicine
DX: K57.92 Diverticulitis of intestine, part unspecified, without perforation or abscess without bleeding (principal); I10 Essential (primary) hypertension; E03.9 Hypothyroidism, unspecified; N20.0 Calculus of kidney; E11.9 Type 2 diabetes mellitus without complications
CPT/HCPCS: 36415; 80053; 80061; 82306; 82728; 83036; 83540; 84443; 85025

== ENCOUNTER 2024-01-17 12:41 | Outpatient (AMB) | payer MEDICARE, SELFPAY ==
--- NOTE | 2024-01-17 12:49 | MHC.OFFVIS ---
Vital Signs 01/17/24 12:49 Height 5 ft 4 in BMI Reason not done Patient refused/unable Comment Pt in WC Intake Visit Reasons: discuss surgery, closure of colostomy Intake Note: Patient is seen in office to discuss surgery, following closure of colostomy. Pt c/o: reports no complaints. Seater Assembler Required: No Accompanied by: Family/Other Allergies chlorpheniramine [From TUSSIONEX] Allergy (Severe, Verified 01/17/24 12:56) HALLUCINATIONS escitalopram [ESCITALOPRAM] Allergy (Severe, Verified 01/17/24 12:56) DISSOCIATIVE REACTION fluoxetine [FLUOXETINE] Allergy (Severe, Verified 01/17/24 12:56) DISSOCIATIVE REACTION hydrocodone [From TUSSIONEX] Allergy (Severe, Verified 01/17/24 12:56) HALLUCINATIONS ibuprofen [IBUPROFEN] Allergy (Severe, Verified 01/17/24 12:56) THROAT SWELLING Sulfa (Sulfonamide Antibiotics) [SULFA (SULFONAMIDE ANTIBIOTICS)] Allergy (Severe, Verified 01/17/24 12:56) DYSPNEA clarithromycin [From BIAXIN] Allergy (Intermediate, Verified 01/17/24 12:56) ABD.PAIN duloxetine [DULOXETINE] Allergy (Intermediate, Verified 01/17/24 12:56) FACIAL NUMBNESS erythromycin base [ERYTHROMYCIN BASE] Allergy (Intermediate, Verified 01/17/24 12:56) RASH Penicillins [PENICILLINS] Allergy (Intermediate, Verified 01/17/24 12:56) RASH tetracycline [TETRACYCLINE] Allergy (Intermediate, Verified 01/17/24 12:56) DIARRHEA ciprofloxacin [From CIPRO] Allergy (Unknown, Verified 01/17/24 12:56) ANAPHYLAXIS codeine [CODEINE] Allergy (Unknown, Verified 01/17/24 12:56) TINNITIS guaifenesin Allergy (Unknown, Verified 01/17/24 12:56) Unknown levofloxacin [From Levaquin] Allergy (Unknown, Verified 01/17/24 12:56) Unknown pregabalin Allergy (Unknown, Verified 01/17/24 12:56) Unknown Medication List - Last Reconciled 01/17/24 by Marino Jimenez MD acetaminophen 1,000 mg PO BID PRN ascorbic acid (vitamin C) 500 mg PO DAILY atorvastatin 1 tab PO DAILY@1700 cholecalciferol (vitamin D3) (Vitamin D3) 50 mcg PO DAILY furosemide 40 mg PO DAILY levothyroxine 112 mcg PO DAILY metformin ER 1 tab PO DAILY@1700 pyridoxine (vitamin B6) 100 mg (2 x 50 mg) PO DAILY 90 days tramadol 50 mg PO BID PRN HPI Comments Details: 78-year-old female patient with a history of diverticular disease status post exploratory laparotomy with Vicki procedure performed on 10/06/2023. She is now home with [facility]NA for dressing changes to her midline incision. Her ostomy is functioning well and she denies any new abdominal symptoms. She continues with silver alginate and ABD pads to the abdominal incision. She returns today to discuss closure of the colostomy. She denies nausea, vomiting, fever or chills. She is eating well and her energy level is improving slowly. [facility] Medical History Hydroureteronephrosis Wound infection Open wound of back, complicated Cellulitis Frequency of urination Vaginal burning Vaginal itching PMB (postmenopausal bleeding) Cirrhosis of liver Does mobilize using walker PONV (postoperative nausea and vomiting) Left foot drop Fatty liver Fibromyalgia Neuropathy RBBB Cholelithiasis Staghorn calculus Renal calculus, bilateral Renal calyceal dilation determined by ultrasound UTI (urinary tract infection) Diabetes mellitus, type II Ganglion cyst Plantar fasciitis Anxiety OA (osteoarthritis) Obstructive airway disease Hypercholesterolemia Low back pain Sciatica Hypothyroidism HTN (hypertension) Primary osteoarthritis of right knee Retained ureteral stent Renal stones Staghorn calculus Perirectal abscess Surgical History History of colectomy (~10/06/23) Status post cystoscopy with ureteral stent placement History of lumbar discectomy History of lumpectomy of both breasts History of cystoscopy History of lithotripsy Hx of colonoscopy History of surgery Family History Father Alcohol dependence Mother CHF (congestive heart failure) Cancer of breast Mother No problems noted. Other Alcoholic cirrhosis Social History Household Members: Spouse and Significant Other Housing: House Are you a primary child caregiver private home to a significant other at home: No Do you presently have visiting nurse or other home services: No Alcohol intake: never Comment: given pyridium Patient Tobacco Use Status: Former Tobacco user Tobacco use type: Cigarette Years Smoked: 27 Second Hand Smoke Exposure: No Advance Directives Date on File: 04/06/21 service: No Current occupational status: disabled Review of Systems Const Denies chills and Denies fever(s) Card Denies chest pain and Reports dyspnea on exertion Resp Denies cough and Reports dyspnea on exertion GI Details: Has colostomy Reports abdominal pain Physical Exam Const General: no acute distress Nutritional Appearance: well nourished Orientation/consciousness: patient oriented x3 Limitations: wheelchair Resp Effort & Inspection: normal respiratory effort, no audible wheezes, no cough and no respiratory distress GI Other: Ostomy is functioning well. Inspection: Yes normal to inspection, Yes incision (Open with granulation tissue at wound base. Wound is healing by secondary ) and Yes Abdominal panniculus present Palpation (GI): Soft to palpation, Tenderness to palpation present (GI) (Midline incision), no guarding and not rigid Neuro General: patient oriented x3 Assessment & Plan Assessment & Plan (1) Status post Vicki procedure: Code(s): Z93.3 - Colostomy status Category: Surgical Plan 78-year-old female patient with a history of diverticulitis status post Vicki procedure now with open incision which is closing nicely. She was doing well with no problems with the ostomy. She wishes to proceed with closure of the colostomy after the holidays. I reviewed the procedure, risks, and alternatives, and she consents to a hand assisted laparoscopic or possible open closure of colostomy. Because of her multiple drug allergies including multiple antibiotics she will only be given an oral prep with no antibiotics. Coding Level of Care Code Est Pt Level 3 (40378) Diagnoses Status post Vicki procedure Z93.3
--- OUTSIDE RECORDS SUMMARY | 2024-01-18 21:12 | XMS_ITS ---
Author Organization [facility] Address [address] [place] [address] Care Team Providers Care Freezer Person Name Role Phone Felipe SERNA, Preston Primary Care Provider Unavail able Lucy Castro Unavailable [phone] Encounters Encounter Location Date Provider Diagnosis [facility] [address] [place] [address] 06/28/2023 Lucy Castro Plan Of Treatment No Information Progress Notes * Casimiro DOANineDOB: 8 (78 yo F)Acc No.[id number]:06/28/2023 Progress Note Patient:?Xi DOAN Provider:?Lucy Castro DPM :1945???Age:78 Y???Sex:Female D ate:06/28/2023 Address:[address] [place] [address] [place] Pcp:Preston Wang MD Subjective: * Chief Complaints: * ??? * Medical History:? Objective: * Vitals:? Assessment: Plan: * Treatment: * Images: * The named appointment provid er may or may not be the originator of this progress note, and it is not deemed complete until electronically signed by the appointment provider. Sign off status: Pending * Provider:?Lucy Castro DPM Date:? Generated for Printi ng/Fagorang/eTransmitting on:?01/18/2024 09:12 PM EST
--- OUTSIDE RECORDS SUMMARY | 2024-01-18 21:12 | XMS_ITS ---
Author Organization [facility] Address [address] [place] [address] Care Team Providers Care Vending Route Driver Name Role Phone Preston Wang MD Primary Care Provider Unavail Lucy Guadalupe Unavailable [phone] REASON FOR VISIT SD cx 06/27 Encounters Encounter Location Date Provider Diagnosis [facility] [address] [place] [address] 06/28/2023 Lucy Catsro Plan Of Treatment No Information Progress Notes * Casimiro DOANineDOB: 8 (78 yo F)Acc No.[id number]:06/28/2023 Patient:?MeliKemal blantonXi :1945???Age:78 Y???Sex:Female Address:[address] [place] [address] [place] [id number] * true * Date:? Generated for Printi bre/Fagorang/eTransmitting on:?01/18/2024 09:12 PM EST
--- OUTSIDE RECORDS SUMMARY | 2024-01-18 21:12 | XMS_ITS ---
Author Organization [facility] Address [address] [place] [address] Care Team Providers Care Locks Tender Name Role Phone Felipe SERNA, Preston Primary Care Provider Unavail able Lucy Castro Unavailable [phone] Encounters Encounter Location Date Provider Diagnosis [facility] [address] [place] [address] 11/26/2022 Lucy Castro Plan Of Treatment No Information Progress Notes * Casimiro DOANineDOB: 8 (78 yo F)Acc No.[id number]:11/26/2022 Progress Note Patient:?Xi DOAN Provider:?Lucy Castro DPM :1945???Age:77 Y???Sex:Female D ate:11/26/2022 Address:[address] [place], [place] [address] [place] Pcp:Preston Wang MD Subjective: * Chief Complaints: [...]
--- OUTSIDE RECORDS SUMMARY | 2024-01-18 21:13 | XMS_ITS ---
Author Organization Preston Wang DO, [facility] Address [address] [place] [phone] Care Team Providers Care Software Configuration Specialist Name Role Phone Preston Wang Primary Care Provider REASON FOR VISIT Refills MEDICATIONS Medication SIG (Take, Route, Fr equency, Duration) Notes Start Date End Date Status metFORMIN HCl ER 500 MG 1 tablet with ev ening meal Orally Once a day for 90 days 11/11/2023 Active SOCIAL HISTORY Sex Assigned At : Social History Observation Description Sex Assigned At Female Encounters Encounter Location Date Provider Diagnosis [facility] [address] [place], [place] [id number] 11/23/2023 Preston Wang Type 2 diabetes mellitus without complication, without long-term current use of insulin E11.9 ASSESSMENTS Encounter Date Diagnosis Assessment Notes Treatment Notes Treatment Clinical Notes 11/23/2023 Type 2 diabetes mellitus without complication, without long-term current use of insulin (ICD-10 - E11.9) PLAN OF TREATMENT Medication Medication Name Sig Start Date Stop Date Notes metFORMIN HCl ER 500 MG 1 tablet with ev ening meal Orally Once a day for 90 days 11/11/2023 Next Appt Details Provider Name:Preston salgado, 03/21/2024 01:30:00 PM, [address] [place] [address], [phone],
--- OUTSIDE RECORDS SUMMARY | 2024-01-18 21:13 | XMS_ITS ---
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 Phone Preston Wang Primary Care Provider ALLERGIES Allergen (clinical drug ingredient) Drug/Non Drug Allergy documented on EMR Reaction Allergy Type Onset Date Status Tussionex Pennkinetic ER hallucinations Drug Allergy Active tetracycline Tetracycline HCl diarrhea Drug Allergy Active fluoxetine Fluoxetine dissociative reaction Drug Allergy Active duloxetine Duloxetine HCl facial numbness, headache, nausea, imbalance Drug Allergy Active Biaxin abdominal pain Drug Allergy Ac tive Penicillin rash Drug Allergy Active sulfa dyspnea Drug Allergy Active ibuprofen Ibuprofen throat swelling Drug Allergy A ctive erythromycin Erythromycin rash Drug Allergy A ctive Ciprofloxacin angioedema Drug Allergy Ac tive REASON FOR VISIT 1 month f/u, Follow up Diverticulitis MEDICATIONS Medication SIG (Take, Route, Frequency, Duration) Notes Start Date End Date Status traMADol HCl 50 MG 1 tablet as needed Orally Once a day 11/21/2023 Active Vitamin B-6 100 MG 1 tablet Orally Once a day Active metFORMIN HCl ER 500 MG 1 tablet with ev ening meal Orally Once a day 11/11/2023 Active Atorvastatin Calcium 10 MG 1 tablet Oral ly Once a day Active Furosemide 40 MG 1 tablet Orally Once a day Active Vitamin D3 25 MCG (1000 UT) 2 tablets Or ally Once a day Active Levothyroxine Sodium 112 MCG 1 tablet in the morning on an empty stomach, 2 tablets on Tuesday and Tuesday Orally Once a day Active SOCIAL HISTORY Tobacco Use: Social History Observation Description Date Details (start date - stop date) Former Smoker NA - NA Sex Assigned At : Social History Observation Description Sex Assigned At Female Tobacco Use/Smoking Question Answer Notes Patient is a former smoker How long has it been since y ou last smoked? > 10 years Additional Findings: Tobacco Non-User Fo rmer smoker, currently using no form of tobacco Alcohol Screen Question Answer Notes Did you have a drink containing alcohol in the p ast year? No Points 0 Interpretation Negative Encounters Encounter Location Date Provider Diagnosis Preston Wang , [address] [id number] 12/16/2023 Preston Wang Diverticulitis K57.9 2 ; Type 2 diabetes mellitus without complication, without long-term current use of insulin E11.9 ; Essential hypertension I10 ; Acquired hypothyroidism E03.9 and Staghorn calculus N20.0 ASSESSMENTS Encounter Date Diagnosis Assessment Notes Treatment Notes Treatment Clinical Notes 12/16/2023 Diverticulitis (ICD-10 - K57.92) Follow up with Surgery. Advise multivitamin with iron once a day. 12/16/2023 Type 2 diabetes mellitus without complication, without long-term current use of insulin (ICD-10 - E11.9) 12/16/2023 Essential hypertension (ICD-10 - I10) 12/16/2023 Acquired hypothyroidism (ICD-10 - E03.9) 12/16/2023 Staghorn calculus (ICD-10 - N20.0) Follow up with Urology PLAN OF TREATMENT Medication Medication Name Sig Start Date Stop Date Notes traMADol HCl 50 MG 1 tablet as needed O rally Once a day 11/21/2023 Vitamin B-6 100 MG 1 tablet Orally Once a day metFORMIN HCl ER 500 MG 1 tablet with ev ening meal Orally Once a day 11/11/2023 Atorvastatin Calcium 10 MG 1 tablet Orally Once a day Furosemide 40 MG 1 tablet Orally Once a day Vitamin D3 25 MCG (1000 UT) 2 tablets Orally Once a day Levothyroxine Sodium 112 MCG 1 tablet in the morning on an empty stomach, 2 tablets on Tuesday and Tuesday Orally Once a day Treatment Notes Assessment Notes Diverticulitis Follow up with Surge ry. Advise multivitamin with iron once a day. Staghorn calculus Follow up with Urolo gy Next Appt Details Follow Up: 3 Months, Reason: follow up visit Provider Name:Preston Blankenship Irvineleazar naomi, 03/21/2024 01:30:00 PM, [address] [place] [address], [phone], Progress Notes * Examination Category Sub-Category Detail Notes General Examination PSYCH: alert, orien eddie, cognitive function intact History and Physical Notes * HPI (History of Present Illness) Category Sub-Category Detail Notes New symptom(s) Telehealth Location of provider:: Pro aguayo's home address Location of patient:: Address listed in demographics for today's visit Patient identification confirmed using:: Name, Telehealth method:: Telephone only. Snow ent not visible to care provider. Consent:: Patient verbally c onsented to treatment, Patient verbally consented to billing insurance company, Patient informed of any privacy concerns related to method of visit Total time spent with patient (mins): 32 Disclaimer: This Telehealth visit is being conducted per CDC recommendations due to the COVID-19 outbreak.
--- OUTSIDE RECORDS SUMMARY | 2024-01-18 21:13 | XMS_ITS | Patient Health Record ---
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 Role Phone Preston Wang MD Primary Care Provider Unavail able Lucy Castro Unavailable [phone] Allergies Allergen (clinical drug ingredient) Drug/Non Drug Allergy documented on EMR Reaction Allergy Type Onset Date Status ibuprofen Advil Throat swelling Drug Allergy A ctive naproxen Aleve Throat swelling Drug Allergy A ctive sulfamethoxazole / trimethoprim Bactrim abdomainal Pain Drug Allergy Active Biaxin rash Drug Allergy Active cefaclor Cefaclor Unknown Drug Allergy Active Ceftin rash Drug Allergy Active ciprofloxacin Cipro angoedema Drug Allergy Act lady erythromycin Erythromycin rash Drug Allergy A ctive Keflex rash Drug Allergy Active Levaquin angioedema Drug Allergy Active Motrin Throat swelling Drug Allergy A ctive azithromycin Azithromycin rash Drug Allergy A ctive Penicillin rash Drug Allergy Active Reason For Referral No Information Medications Medication SIG (Take, Route, Frequency, Duration) Notes Start Date End Date Status Vitamin B Complex Ac tive metFORMIN HCl ER Act lady Lisinopril 10 MG 1 tablet Orally Once a day Active Levothyroxine Sodium 112 MCG Orally Active Furosemide 40 MG 1 tablet Orally Twic e a day Active oxyCODONE HCl 5 MG Orally N ot-Taking Betamethasone Dipropionate Aug 0.05 % 1 application Externally Once a day Not-Taking Albuterol prn Not-Taking Vitamin D 2 tablet Active Immunizations Vaccine Route Administration Date Status Comme nts COVID-19 Moderna Vaccine Unknown 07/15/2020 Administered 1st 07/15/2020 2nd 08/12/2020 Influenza Unknown 12/21/2017 Refused Influenza Unknown 10/08/2021 Administered Social History Tobacco Use: Social History Observation Description Date Details (start date - stop date) Former Smoker NA - NA Tobacco Use/Smoking Question Answer Notes Are you a: former smoker Additional Findings: Tobacco Non-User Cu rrent non-smoker,Ex-cigarette smoker,Ex-heavy cigarette smoker (20-30/day) Alcohol Screen Question Answer Notes Did you have a drink containing alcohol in the p ast year? No Points 0 Interpretation Negative Tobacco use other than smoking: Question Answer Notes Are you an other tobacco user? No Problems Problem Type SNOMED Code ICD Code Onset Dates Problem Status W/U Status Risk Notes Problem 804495410 Hammer toe of le ft foot (M20.42) Active confirmed Problem 602639217 Neuropathy (G62.9) Active confirmed Problem [id number] Atherosclerosi s of artery of both lower extremities (I70.203) Active confirmed Encounters Encounter Location Date Provider Diagnosis [facility] [place] [address] [place] [address] 06/28/2023 Lucy Castro Plan Of Treatment Pending Test Test Name Order Date X ray : Foot, left 3V 08/20/2022 X ray : Foot, left 3V 09/10/2022 X ray : Foot, left 3V 10/08/2022 [id number] NAIL, 1-5 12/21/2017 [id number] DYSTROPHIC NAILS ANY # Insurance Providers Payer Name Payer Address Payer Phone Subscriber Number Group Number Insured Name Patient Relationship to Insured Coverage Start Date Coverage End Date Medicare National [employer]t S[employer] [address] [facility] [address] [id number] Xi Garrison Self - patient is the insured 3 [employer] Blue [employer] [address] [place] [address] [phone] [id number] Xi Garrison Self - patient is the insured Medical (General) History Medical History History ICD Code Back,Hip,and Knee pain Broken bones Cancer Fibromyalgia Glaucoma High blood pressure Osteoporosis Paralysis Sciatica chronic sinusitis thyroid Warts type II diabetes Surgical History Surgery Date(Month/Year) back surgery, herniated disk, complicati on of dropped foot 10/17/2017 cancer surgery w/ skin graft nose 019 skin cancer removed from throat 08/2018 derm abrasion 12/2018
--- OUTSIDE RECORDS SUMMARY | 2024-01-18 21:13 | XMS_ITS ---
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
--- OUTSIDE RECORDS SUMMARY | 2024-01-18 21:14 | XMS_ITS | Clinical Summary ---
Author Organization Unknown Care Team Providers Care Pluck Trimmer Name Role Phone PITA , LIBERTAD Unavailable Unavailable ZEE RN, ABIEL Unavailable Unavailable ANABELLA RN, SHAYY Unavailable Unavailable Payers Payer Name Policy Type Policy Number Effective Date Expira tion Date MEDICARE - [place] - [place] [id number] [facility] [id number] Problems Condition Name Condition Details Condition Category Status Onset Date Resolution Date Last Treatment Date Treating Clinician Comments DISRUPTION OF EXTERNAL OPERATION (SURGICAL) WOUND, NEC, SUBS Active 10-10 00:00: 00 INFECTION FOLLOWING A PROCEDURE, OTHER SURGICAL SITE, SUBS Active 10-10 00:00: 00 ENCOUNTER FOR ATTENTION TO COLOSTOMY Active 02-07 00:00: 00 CHRONIC OBSTRUCTIVE PULMONARY DISEASE, UNSPECIFIED Active 02-07 00:00: 00 UNSPECIFIED MOOD [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 Active 02-07 00:00: 00 TYPE 2 DIABETES MELLITUS W DIABETIC CHRONIC KIDNEY DISEASE Active 02-07 00:00: 00 HYPERTENSIVE CHRONIC KIDNEY DISEASE W STG 1-4/UNSP CHR KDNY Active 02-07 00:00: 00 CHRONIC KIDNEY DISEASE, STAGE 3B Active 02-07 00:00: 00 ANEMIA IN CHRONIC KIDNEY DISEASE Active 02-07 00:00: 00 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, L FT, 7THD Active 10-10 00:00: 00 HYPOTHYROIDI SM, UNSPECIFIED Active 02-07 00:00: 00 ANXIETY DISORDER, UNSPECIFIED Active 02-07 00:00: 00 MIXED HYPERLIPIDEM IA Active 02-07 00:00: 00 MCC (CURRENT) USE OF ORAL HYPOGLYCEMIC DRUGS Active 02-07 00:00: 00 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) USE OF 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 ANALGESIC Active 02-07 00:00: 00 Allergies, Adverse Reactions, Alerts Allergy Name Allergy Type Status Severity Reaction(s) Onset Date Inactive Date Treating Clinician Comments IBUPROFEN Propensity to adverse reactions Active 2023-02 12:10: 29 TETRACYCLINE Propensity to adverse reactions Active 2023-02 12:10: 48 PREGABALIN Propensity to adverse reactions Active 2023-02 12:09: 08 LEVOFLOXACIN HYDRATE Propensity to adverse reactions Active 2023-02 12:10: 17 PENICILLIN (G) Propensity to adverse reactions Active 2023-02 12:09: 24 SULFA ANTIBIOTIC Propensity to adverse reactions Active 2023-02 12:08: 40 Medications Ordered Medication Name Filled Medication Name Start Date Stop Date Current Medication? Ordering Clinician Indication Dosage Frequency Signature (SIG) Comments Components atorvastati n 10 mg tablet 2023-02 00:00: 00 Yes [id number] 1 tablet DAILY 1 tablet DAILY (route: oral) Med Classific ation: Cardiovas cular Therapy Agents B-complex with vitamin C 400 mcg-500 mg tablet 2023-02 00:00: 00 Yes [id number] 1 tablet DAILY 1 tablet DAILY (route: oral) Med Classific ation: Electroly te Balance-N utritiona l Products clindamycin HCl 300 mg capsule 920 00:00: 00 11-10 23:59 :00 No [id number] 1 capsule EVERY 6 HOURS 1 capsule EVERY 6 HOURS (route: oral) Med Classific ation: Anti-Infe ctive Agents furosemide 40 mg tablet 2023-02 00:00: 00 Yes [id number] 1 tablet DAILY 1 tablet DAILY (route: oral) Med Classific ation: Cardiovas cular Therapy Agents levothyroxi ne 112 mcg tablet 2023-02 00:00: 00 Yes [id number] 1 tablet DAILY 1 tablet DAILY (route: oral) Med Classific ation: Endocrine metformin 500 mg tablet 2023-02 00:00: 00 Yes [id number] 1 tablet DAILY 1 tablet DAILY (route: oral) Med Classific ation: Endocrine Probiotic Acidophilus 250 million cell capsule 2023-02 00:00: 00 Yes [id number] 1 capsule DAILY 1 capsule DAILY (route: oral) Med Classific ation: Gastroint estinal Therapy Agents tramadol 50 mg tablet 2023-02 0 00:00: 00 Yes [id number] 1 tablet 3 TIMES DAILY 1 tablet 3 TIMES DAILY (route: oral) Med Classific ation: Analgesic , Anti-infl ammatory or Antipyret ic Vitamin D3 25 mcg (1,000 unit) capsule 2023-02 002 00:00: 00 Yes [id number] 2 capsule DAILY 2 capsule DAILY (route: oral) Med Classific ation: Electroly te Balance-N utritiona l Products Immunizations Ordered Immunization Name Filled Immunization Name Date Status Comments Refusal Reason COVID-19, COVID-19 2020-11-07 00:00:00 Vital Signs Vital Name Observation Time Observation Value Commen ts Temperature 2024-01-17 10:53:00.000 97.6 [degF] Temperature 2024-01-13 12:20:00.000 97.7 [degF] Temperature 2024-01-11 19:38:00.000 97 [degF] Pulse 2024-01-17 10:53:00.000 70 /min Pulse 2024-01-13 12:20:00.000 71 /min Pulse 2024-01-11 19:38:00.000 74 /min O2 Saturation (%) 2024-01-17 10:53:00.000 98 % O2 Saturation (%) 2024-01-13 12:20:00.000 99 % O2 Saturation (%) 2024-01-11 19:38:00.000 97 % Respirations 2024-01-17 10:53:00.000 18 /min Respirations 2024-01-13 12:20:00.000 18 /min Respirations 2024-01-11 19:38:00.000 18 /min Systolic Blood Pressure 2024-01-17 10:53:00.000 126 mm [Hg] Systolic Blood Pressure 2024-01-13 12:20:00.000 148 mm [Hg] Systolic Blood Pressure 2024-01-11 19:38:00.000 134 mm [Hg] Diastolic Blood Pressure 2024-01-17 10:53:00.000 80 mm [Hg] Diastolic Blood Pressure 2024-01-13 12:20:00.000 88 mm [Hg] Diastolic Blood Pressure 2024-01-11 19:38:00.000 74 mm [Hg] Plan of Treatment Planned Activity Planned Date Details Comments Future Scheduled Test SKILLED NU RSE FOR TEACHING/REINFORCEMENT OF OSTOMY CARE INCLUDING APPLIANCE AND STOMAL CARE. [code = SKILLED NURSE FOR TEACHING/REINFORCEMENT OF OSTOMY CARE INCLUDING APPLIANCE AND STOMAL CARE.] Future Scheduled Test SKILLED NU RSE TO EVALUATE PATIENT, IDENTIFY PRIMARY AND CO-MORBID CONDITIONS CODED PER CODING GUIDELINES, AND DEVELOP PATIENT SPECIFIC PLAN OF CARE THAT INCLUDES PATIENT GOAL FOR HOME HEALTH. [code = SKILLED NURSE TO EVALUATE PATIENT, IDENTIFY PRIMARY AND CO-MORBID CONDITIONS CODED PER CODING GUIDELINES, AND DEVELOP PATIENT SPECIFIC PLAN OF CARE THAT INCLUDES PATIENT GOAL FOR HOME HEALTH.] Future Scheduled Test SKILLED NU RSE TO REVIEW PATIENT MEDICATIONS. INSTRUCT PATIENT/CAREGIVER ON MONITORING OF EFFECTIVENESS, ADVERSE DRUG REACTIONS, SIDE EFFECTS OF ALL MEDICATIONS (PRESCRIPTION/-OTC), AND HOW AND WHEN TO REPORT PROBLEMS. [code = SKILLED NURSE TO REVIEW PATIENT MEDICATIONS. INSTRUCT PATIENT/CAREGIVER ON MONITORING OF EFFECTIVENESS, ADVERSE DRUG REACTIONS, SIDE EFFECTS OF ALL MEDICATIONS (PRESCRIPTION/-OTC), AND HOW AND WHEN TO REPORT PROBLEMS.] Future Scheduled Test SKILLED NU RSE TO ASSESS ANXIETY AND PROVIDE ASSISTANCE TO PATIENT FOR UNDERSTANDING AND MANAGEMENT OF FEELINGS. [code = SKILLED NURSE TO ASSESS ANXIETY AND PROVIDE ASSISTANCE TO PATIENT FOR UNDERSTANDING AND MANAGEMENT OF FEELINGS.] Future Scheduled Test SKILLED NU RSE FOR O/A, TEACHING, AND MANAGEMENT OF HTN, HLD. [code = SKILLED NURSE FOR O/A, TEACHING, AND MANAGEMENT OF HTN, HLD.] Future Scheduled Test SKILLED NU RSE FOR O/A, TEACHING AND MANAGEMENT OF CKD FOR EARLY IDENTIFICATION OF EXACERBATION OF DISEASE PROCESS [code = SKILLED NURSE FOR O/A, TEACHING AND MANAGEMENT OF CKD FOR EARLY IDENTIFICATION OF EXACERBATION OF DISEASE PROCESS] Future Scheduled Test SKILLED NU RSE FOR O/A AND SKILLED TEACHING RELATED TO SIGNS AND SYMPTOMS OF INFECTION AND INFECTION CONTROL MEASURES. [code = SKILLED NURSE FOR O/A AND SKILLED TEACHING RELATED TO SIGNS AND SYMPTOMS OF INFECTION AND INFECTION CONTROL MEASURES.] Future Scheduled Test NEED FOR S KILLED TEACHING AND INTERVENTION RELATED TO AFTER SURGICAL WOUND TO ABDOMEN ABOVE UMBILICUS SKILLED NURSE OR TRAINED PATIENT/CAREGIVER TO PERFORM WOUND CARE USING CLEANSE WITH NS, APPLY SKIN PREP AROUND THE OUTER SKIN, COVEF WITH CALCIUM ALGINATE, APPLY ABDOMINAL PAD OVER WOUND, SECURE 2ITH MEDIPORE TAPE SOFT CLOTH PAT DRY WITH WOUND CARE TO BE PERFORMED EVERY OTHER DAY AND PRN IF SOILED OR DISLODGED. 1-2 PRN SKILLED NURSE VISITS FOR WOUND CARE DUE TO COMPLICATIONS. SKILLED NURSE TO OBTAIN WOUND CULTURE PRN S/S OF INFECTION. WOUND CARE WILL BE PERFORMED BY TRAINED CAREGIVER ON DAYS WHEN SKILLED NURSE IS NOT SCHEDULED FOR A VISIT. DISCONTINUE WOUND CARE/SUPPLIES ONCE WOUND IS HEALED. [code = NEED FOR SKILLED TEACHING AND INTERVENTION RELATED TO AFTER SURGICAL WOUND TO ABDOMEN ABOVE UMBILICUS SKILLED NURSE OR TRAINED PATIENT/CAREGIVER TO PERFORM WOUND CARE USING CLEANSE WITH NS, APPLY SKIN PREP AROUND THE OUTER SKIN, COVEF WITH CALCIUM ALGINATE, APPLY ABDOMINAL PAD OVER WOUND, SECURE 2ITH MEDIPORE TAPE SOFT CLOTH PAT DRY WITH WOUND CARE TO BE PERFORMED EVERY OTHER DAY AND PRN IF SOILED OR DISLODGED. 1-2 PRN SKILLED NURSE VISITS FOR WOUND CARE DUE TO COMPLICATIONS. SKILLED NURSE TO OBTAIN WOUND CULTURE PRN S/S OF INFECTION. WOUND CARE WILL BE PERFORMED BY TRAINED CAREGIVER ON DAYS WHEN SKILLED NURSE IS NOT SCHEDULED FOR A VISIT. DISCONTINUE WOUND CARE/SUPPLIES ONCE WOUND IS HEALED.] Future Scheduled Test SKILLED NU RSE TO PERFORM AND RECORD BLOOD SUGAR READING PRN FOR SIGNS AND SYMPTOMS OF HYPO/HYPERGLYCEMIA. [code = SKILLED NURSE TO PERFORM AND RECORD BLOOD SUGAR READING PRN FOR SIGNS AND SYMPTOMS OF HYPO/HYPERGLYCEMIA.] Future Scheduled Test SKILLED NU RSE FOR O/A AND TEACHING OF ENDOCRINE SYSTEM TO IDENTIFY CHANGES ASSOCIATED WITH EXACERBATION OF HYPOTHYROIDISM FOR EARLY INTERVENTION OF COMPLICATIONS. [code = SKILLED NURSE FOR O/A AND TEACHING OF ENDOCRINE SYSTEM TO IDENTIFY CHANGES ASSOCIATED WITH EXACERBATION OF HYPOTHYROIDISM FOR EARLY INTERVENTION OF COMPLICATIONS.] Future Scheduled Test SKILLED NU RSE TO INSTRUCT PATIENT/CAREGIVER ON COPD TO INCLUDE TEACHING AND SELF-MANAGEMENT RELATED TO COPD DISEASE PROCESS, SIGNS AND SYMPTOMS, AND COMPLICATIONS. [code = SKILLED NURSE TO INSTRUCT PATIENT/CAREGIVER ON COPD TO INCLUDE TEACHING AND SELF-MANAGEMENT RELATED TO COPD DISEASE PROCESS, SIGNS AND SYMPTOMS, AND COMPLICATIONS.] Future Scheduled Test SKILLED NU RSE FOR O/A AND SKILLED TEACHING RELATED TO SIGNS AND SYMPTOMS AND MANAGEMENT OF ANEMIA. [code = SKILLED NURSE FOR O/A AND SKILLED TEACHING RELATED TO SIGNS AND SYMPTOMS AND MANAGEMENT OF ANEMIA.] Future Scheduled Test SKILLED NU RSE FOR O/A AND TEACHING OF DIABETIC MANAGEMENT INCLUDING BLOOD SUGAR MONITORING/USE OF GLUCOMETER, DIABETIC DIET, LOWER EXTREMITY SKIN INSPECTION, PROPER SKIN/FOOT CARE, AND SIGNS AND SYMPTOMS HYPO/HYPERGLYCEMIA TO REPORT. [code = SKILLED NURSE FOR O/A AND TEACHING OF DIABETIC MANAGEMENT INCLUDING BLOOD SUGAR MONITORING/USE OF GLUCOMETER, DIABETIC DIET, LOWER EXTREMITY SKIN INSPECTION, PROPER SKIN/FOOT CARE, AND SIGNS AND SYMPTOMS HYPO/HYPERGLYCEMIA TO REPORT.] Future Scheduled Test SKILLED NU RSE TO INSTRUCT PATIENT/CAREGIVER ON PREVENTION OF SEPSIS, AND SIGNS AND SYMPTOMS OF SEPSIS TO REPORT. [code = SKILLED NURSE TO INSTRUCT PATIENT/CAREGIVER ON PREVENTION OF SEPSIS, AND SIGNS AND SYMPTOMS OF SEPSIS TO REPORT.] Future Scheduled Test PATIENT DE DIOS S A RISK OF HOSPITALIZATION AND ED USE. SKILLED NURSE TO ESTABLISH SUPPORT MEASURES TO MINIMIZE RISK OF HOSPITALIZATION AND ED USE, AND INSTRUCT PATIENT/CAREGIVER ON METHODS TO REDUCE AVOIDABLE HOSPITALIZATION AND ED USE. [code = PATIENT HAS A RISK OF HOSPITALIZATION AND ED USE. SKILLED NURSE TO ESTABLISH SUPPORT MEASURES TO MINIMIZE RISK OF HOSPITALIZATION AND ED USE, AND INSTRUCT PATIENT/CAREGIVER ON METHODS TO REDUCE AVOIDABLE HOSPITALIZATION AND ED USE.] Future Scheduled Test SKILLED NU RSE TO PROVIDE INSTRUCTION TO PATIENT/CAREGIVER RELATED TO DISCHARGE PLANNING. [code = SKILLED NURSE TO PROVIDE INSTRUCTION TO PATIENT/CAREGIVER RELATED TO DISCHARGE PLANNING.] Future Scheduled Test SKILLED NU RSE TO PERFORM ENVIRONMENTAL SAFETY RISK ASSESSMENT AND FALL RISK ASSESSMENT AND PROVIDE INSTRUCTION TO IMPLEMENT ENVIRONMENTAL SAFETY AND FALL PREVENTION STRATEGIES THROUGHOUT THE CERTIFICATION PERIOD. SKILLED NURSE WILL MAINTAIN SITUATIONAL AWARENESS AND WILL NOTIFY CLINICAL DRYWALL CONTRACTOR AND PHYSICIAN/PROVIDER WITH ANY CHANGE IN CONDITION. [code = SKILLED NURSE TO PERFORM ENVIRONMENTAL SAFETY RISK ASSESSMENT AND FALL RISK ASSESSMENT AND PROVIDE INSTRUCTION TO IMPLEMENT ENVIRONMENTAL SAFETY AND FALL PREVENTION STRATEGIES THROUGHOUT THE CERTIFICATION PERIOD. SKILLED NURSE WILL MAINTAIN SITUATIONAL AWARENESS AND WILL NOTIFY CLINICAL DRYWALL CONTRACTOR AND PHYSICIAN/PROVIDER WITH ANY CHANGE IN CONDITION.] Future Scheduled Test SKILLED NU RSE FOR OBSERVATION AND ASSESSMENT OF PATIENTS PAIN LEVEL AND EFFECTIVENESS OF PAIN MANAGEMENT REGIMEN. SKILLED NURSE TO INSTRUCT PATIENT/CAREGIVER REGARDING PHARMACOLOGIC AND NON-PHARMACOLOGIC PAIN CONTROL MEASURES. SKILLED NURSE TO REPORT TO PHYSICIAN IF PAIN IS UNCONTROLLED WITH CURRENT PAIN MANAGEMENT REGIMEN. [code = SKILLED NURSE FOR OBSERVATION AND ASSESSMENT OF PATIENTS PAIN LEVEL AND EFFECTIVENESS OF PAIN MANAGEMENT REGIMEN. SKILLED NURSE TO INSTRUCT PATIENT/CAREGIVER REGARDING PHARMACOLOGIC AND NON-PHARMACOLOGIC PAIN CONTROL MEASURES. SKILLED NURSE TO REPORT TO PHYSICIAN IF PAIN IS UNCONTROLLED WITH CURRENT PAIN MANAGEMENT REGIMEN.] Future Scheduled Test SKILLED NU RSE TO ASSESS PATIENT'S SKIN INTEGRITY AND INSTRUCT PATIENT/CAREGIVER ON MEASURES TO PREVENT PRESSURE ULCERS. [code = SKILLED NURSE TO ASSESS PATIENT'S SKIN INTEGRITY AND INSTRUCT PATIENT/CAREGIVER ON MEASURES TO PREVENT PRESSURE ULCERS.] Goal 2024-01-06 Patient Goal - I WANT TO HEAL AND GET BETTER FAST Goal Patient Goal - I WANT TO HEAL AND GET BETTER FAST Goal Provider Goal - PATIENT/CAREGIVER WILL VERBALIZE KNOWLEDGE OF AND DEMONSTRATE INDEPENDENCE IN OSTOMY CARE BY THE END OF THE CERTIFICATION PERIOD. Goal Provider Goal - A PLAN OF CARE WILL BE ESTABLISHED THAT MEETS PATIENT'S PRISON NEEDS AND INCLUDES PATIENT GOAL FOR HOME HEALTH. Goal Provider Goal - PATIENT/CAREGIVER WILL VERBALIZE UNDERSTANDING OF EDUCATION PROVIDED ON MEDICATIONS BY THE END OF THE CERTIFICATION PERIOD. Goal Provider Goal - SYMPTOMS OF ANXIETY ARE IDENTIFIED AND INTERVENTIONS INITIATED TO ENABLE PATIENT TO UNDERSTAND AND MANAGE FEELINGS THROUGHOUT EPISODE. Goal Provider Goal - PATIENT/CAREGIVER WILL VERBALIZE/DEMONSTRATE MANAGEMENT OF CARDIAC DISEASE PROCESS AND EXACERBATIONS WILL BE IDENTIFIED AND PROMPTLY REPORTED THROUGHOUT THE CERTIFICATION PERIOD. Goal Provider Goal - PATIENT/CAREGIVER WILL VERBALIZE UNDERSTANDING OF GENITOURINARY DISEASE PROCESS, AND EXACERBATIONS OF GENITOURINARY DISEASE WILL BE PROMPTLY IDENTIFIED FOR EARLY INTERVENTION THROUGHOUT THE CERTIFICATION PERIOD. Goal Provider Goal - PATIENT/CAREGIVER WILL VERBALIZE/DEMONSTRATE UNDERSTANDING OF S/S OF INFECTION AND INFECTION CONTROL MEASURES. SIGNS AND SYMPTOMS OF INFECTION WILL BE IDENTIFIED AND PHYSICIAN NOTIFIED FOR PROMPT INTERVENTION THROUGHOUT THE CERTIFICATION PERIOD. Goal Provider Goal - WOUND CARE WILL BE COMPLETED AND PATIENT WILL HAVE IMPROVED WOUND STATUS EVIDENCED BY NO SIGNS AND SYMPTOMS OF INFECTION, DECREASED WOUND SIZE, AND/OR NO COMPLICATIONS BY THE END OF THE CERTIFICATION PERIOD. Goal Provider Goal - BLOOD SUGAR READING WILL BE OBTAINED ORDERED THROUGHOUT CERTIFICATION PERIOD. Goal Provider Goal - PATIENT/CAREGIVER WILL VERBALIZE SIGNS AND SYMPTOMS OF EXACERBATION OF HYPOTHYROIDISM TO REPORT TO NURSE/PHYSICIAN THROUGHOUT THE CERTIFICATION PERIOD. Goal Provider Goal - PATIENT/CAREGIVER WILL VERBALIZE/DEMONSTRATE KNOWLEDGE AND MANAGEMENT OF COPD BY END OF EPISODE. Goal Provider Goal - PATIENT/CARGIVER WILL VERBALIZE UNDERSTANDING OF ANEMIA INCLUDING SIGNS AND SYMPTOMS, MANAGEMENT OF COMPLICATIONS, AND PRESCRIBED TREATMENT REGIMEN BY END OF EPISODE. Goal Provider Goal - PATIENT/CAREGIVER WILL VERBALIZE/DEMONSTRATE KNOWLEDGE OF DIABETIC MANAGEMENT. CHANGES IN DIABETIC STATUS WILL BE IDENTIFIED AND REPORTED TO PHYSICIAN FOR PROMPT INTERVENTION THROUGHOUT THE CERTIFICATION PERIOD. Goal Provider Goal - PATIENT WILL BE FREE FROM INFECTION AND PATIENT/CAREGIVER WILL VERBALIZE UNDERSTANDING OF SIGNS AND SYMPTOMS AND METHODS TO PREVENT SEPSIS BY END OF THE EPISODE. Goal Provider Goal - PATIENT WILL HAVE SUPPORT MEASURES ESTABLISHED TO PREVENT HOSPITALIZATION AND ED USE AND PATIENT/CAREGIVER WILL VERBALIZE/DEMONSTRATE METHODS TO REDUCE AVOIDABLE HOSPITALIZATION AND ED USE BY END OF EPISODE. Goal Provider Goal - PATIENT/CAREGIVER WILL VERBALIZE UNDERSTANDING OF DISCHARGE PLANNING INSTRUCTIONS BY DATE OF DISCHARGE. Goal Provider Goal - PATIENT/CAREGIVER WILL VERBALIZE/DEMONSTRATE EFFECTIVE ENVIRONMENTAL SAFETY AND FALL PREVENTION STRATEGIES, WILL REMAIN SAFE IN THE COMMUNITY, AND WILL BE FREE OF DANGER TO SELF AND OTHERS THROUGHOUT THE CERTIFICATION PERIOD. Goal Provider Goal - PATIENT/CAREGIVER WILL DEMONSTRATE UNDERSTANDING OF PHARMACOLOGIC AND NONPHARMACOLOGIC PAIN CONTROL MEASURES AND PATIENT WILL HAVE IMPROVEMENT IN PAIN INTERFERING WITH ACTIVITY EVIDENCED BY PAIN CONTROLLED AT LEVEL OF 7 OR LESS BY END OF CERTIFICATION PERIOD. Goal Provider Goal - PATIENT/CAREGIVER WILL VERBALIZE UNDERSTANDING OF PRESSURE ULCER PREVENTION BY END OF THE EPISODE. Progress Notes Progress Notes <paragraph>[Visit Date: 2023 by MALIKA ELDER RN, ADMISSION NURSE]:</paragraph><paragraph>SNV 01/17/24 ABNORMAL VITALS: ALL VITALS WITHIN SET PARAMETERS FALLS: NO FALLS SINCE LAST SN VISIT ABNORMAL PHYSICAL ASSESSMENT FINDINGS: ALL SYSTEMS WITHIN NORMAL LIMITS MEDICATION CHANGES: NONE OBSERVATION AND ASSESSMENT PROVIDED: PT ALERT AND ORIENTATED X3, DENIES ANY FEVER OR CHILLS, NAUSEA OR VOMITING, DIARRHEA. PT HASCAN APPT TODAY WITH SURGEON AND IS HOPING TO GET GOOD NEWS. PT WANTS HER OSTOMY REVERSAL. PT STOMA PINK, PATENT, SKIN AROUND NOT RED OR IRRITATED. PT WOUND CARE COMPLETED AND PT TOLERATED WELL. WOUND HAS A SMALL SCAB, STILL DRAINING VERY LITTLE. LS CLEAR THROUGHOUT, BSX4 LBM TODAY. EDUCATION: PT EDUCATED ON DIABETES MANAGEMENT AND SYMPTOMS OF HYPO AND HYPERGLYCEMIA PT VERBALIZED UNDERSTANDING. INTERVENTIONS NEEDED AT NEXT VISIT: WOUND ASSESSMENT AND CARE COMMUNICATION WITH MD: NONE NEXT MD APPOINTMENT: WOUND CLINIC 01/24/24 PT AND CAREGIVER INSTRUCTED TO CALL [facility] WITH ANY QUESTIONS OR CONCERNS AND/OR CHANGES IN CONDITION, STATE UNDERSTANDIN</paragraph> <paragraph>[Visit Date: 2023 by MALIKA ELDER RN, ADMISSION NURSE]:</paragraph><paragraph>SNV 01/13/24 ABNORMAL VITALS: ALL VITALS WITHIN SET PARAMETERS FALLS: NO FALLS SINCE LAST SN ABNORMAL PHYSICAL ASSESSMENT FINDINGS: ALL SYSTEMS WITHIN NORMAL LIMITS MEDICATION CHANGES: NONE OBSERVATION AND ASSESSMENT PROVIDED: PT ALERT AND ORIENTATED X3, DENIES ANY FEVER OR CHILLS, NAUSEA OR VOMITING, PT REPORT SOME DISCOMFORT AROUND WOUND SIT, NO REDNESS OR [id number] PRESENT. PT MADE AWARE THAT THE TAPE MAYBE THE CAUSE OF THE DISCOMFORT FEELING. PTS WOUND HEALING GREAT, PT OSTOMY PINK AND PATENT WITHNSOFT BROWN STOOL. PT EXCITED TO GO SEE THE SURGEON AND TALK ABOUT THR REVERSAL OF OSTOMY. PT WOUND CARE COMPLETED AND TOLERATED WELL. EDUCATION: PT EDUCATED ON INFECTION SIGNS AND SYMPTOMS PT VERBALIZED UNDERSTANDING INTERVENTIONS NEEDED AT NEXT VISIT: WOUND CARE, PHYSICAL ASSESSMENT COMMUNICATION WITH MD: NONE NEXT MD APPOINTMENT: WOUND CLINIC 01/24/24 PT AND CAREGIVER INSTRUCTED TO CALL [facility] WITH ANY QUESTIONS OR CONCERNS AND/OR CHANGES IN CONDITION, STATE UNDERSTANDIN</paragraph> Encounters Start Date/Time End Date/Time Encounter Type Admission Type Attending [facility] Department Encounter ID Discharge Date Discharge Status Discharge Condition Discharge Reason Percent Goals Met 2023-11-09 00:00:00 2024-03-07 00:00:00 Outpatient RECERTIFIC ATION SHAYY KYLE [facility] [id number] 15.15
--- OUTSIDE RECORDS SUMMARY | 2024-01-18 21:14 | XMS_ITS | Patient Health Record ---
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 Name Role Phone Preston Wang Primary Care [...] ctive Ciprofloxacin angioedema Drug Allergy Ac tive RESULTS Component Value Reference Range Notes Complete Blood Count Auto Di ff Reviewed date:02/08/2023 02:31:57 PM Interpretation:Abnormal Performing Lab:[facility], [address] [place] [phone] Notes/Report: White Blood Count 10.0 4.8-10.8 X10*3/uL Red Blood Count 4.14 4.20-5.50 X10*6/uL Hemoglobin 12.3 12.0-16.0 g/dl Hematocrit 38.0 37.0-47.0 % Mean Corpuscular Volume 91.8 80.0-98.0 fL Mean Corpuscular Hemoglobin 29.7 27.0-33.0 pg Mean Corpuscular HGB Conc 32.4 31.0-35.0 g/dl Red Cell Distribution Width 15.6 11.0-16.0 % Platelet Count 229 160-400 X10*3/uL Mean Platelet Volume 10.0 9.4-12.3 fL Neutrophils Percent Auto 56.9 45-73 % Imm Gran Pct Auto 1.9 0.0-0.4 % Lymphocytes Percent Auto 31.3 20-40 % Monocytes Percent Auto 7.7 2-11 % Eosinophils Percent Auto 1.8 0-4 % Basophils Percent Auto 0.4 0-2 % NRBC Pct Auto 0.0 0.0-0.2 /100WBC Neutrophils Absolute Auto 5.7 2.0-8.3 x10*3/uL Imm Gran Abs Auto 0.19 0.00-0.03 X10*3/uL Lymphocytes Absolute Auto 3.1 1.2-4.9 X10*3/uL Monocytes Absolute Auto 0.8 0.1-1.2 X10*3/uL Eosinophils Absolute Auto 0.2 0.0-0.4 X10*3/uL Basophils Absolute Auto 0.0 0.0-0.2 X10*3/uL NRBC Abs Auto 0.000 0.0-0.012 X10*3/uL Blood Urea Nitrogen Reviewed date:02/08/2023 02:31:57 PM Interpretation:Abnormal Performing Lab:[address] [phone] Notes/Report: Blood Urea Nitrogen 27 9-16 mg/dL Creatinine Reviewed date:02/08/2023 02:32:16 PM Interpretation:Abnormal Performing Lab:[address] [phone] Notes/Report: Creatinine 1.40 0.5-1.4 mg/dL Estimated Glomerular Filt Rate 37 NOTE: For -Namibian individuals, multiply the result by 1.210. Chronic Kidney Disease: Estimated GFR < 60 mL/min/1.73m2 Severe Kidney Disease: Estimated GFR < 15 mL/min/1.73m2 Complete Blood Count Auto Di ff Reviewed date:04/12/2023 09:21:42 PM Interpretation:Normal Performing Lab:[address] [phone] Notes/Report: White Blood Count 8.8 4.8-10.8 X10*3/uL Red Blood Count 4.39 4.20-5.50 X10*6/uL Hemoglobin 13.0 12.0-16.0 g/dl Hematocrit 39.7 37.0-47.0 % Mean Corpuscular Volume 90.4 80.0-98.0 fL Mean Corpuscular Hemoglobin 29.6 27.0-33.0 pg Mean Corpuscular HGB Conc 32.7 31.0-35.0 g/dl Red Cell Distribution Width 13.9 11.0-16.0 % Platelet Count 249 160-400 X10*3/uL Mean Platelet Volume 9.6 9.4-12.3 fL Neutrophils Percent Auto 70.7 45-73 % Imm Gran Pct Auto 1.1 0.0-0.4 % Lymphocytes Percent Auto 21.1 20-40 % Monocytes Percent Auto 5.4 2-11 % Eosinophils Percent Auto 1.1 0-4 % Basophils Percent Auto 0.6 0-2 % NRBC Pct Auto 0.0 0.0-0.2 /100WBC Neutrophils Absolute Auto 6.2 2.0-8.3 x10*3/uL Imm Gran Abs Auto 0.10 0.00-0.03 X10*3/uL Lymphocytes Absolute Auto 1.9 1.2-4.9 X10*3/uL Monocytes Absolute Auto 0.5 0.1-1.2 X10*3/uL Eosinophils Absolute Auto 0.1 0.0-0.4 X10*3/uL Basophils Absolute Auto 0.1 0.0-0.2 X10*3/uL NRBC Abs Auto 0.000 0.0-0.012 X10*3/uL Comprehensive Met. Panel Reviewed date:04/12/2023 09:21:42 PM Interpretation:Abnormal Performing Lab:[facility], [address] [place] [phone] Notes/Report: Sodium 137 135-145 mmol/L Potassium 3.4 3.3-5.1 mmol/L Chloride 104 96-108 mmol/L Carbon Dioxide 25 22-29 mmol/L Anion Gap 11 12-20 Blood Urea Nitrogen 16 9-16 mg/dL Creatinine 1.49 0.5-1.4 mg/dL Creatinine Clr Calc Pharmacy 35.7 Provided height and weight: 162.56 cm, 94.347 kg. eGFR (calculated from the MDRD study equation) and eCrCl (calculated from the Cockcroft-Gault equation) are based on different parameters and may not yield comparable results. If eCrCl result is absurd, please check patient's height/weight. Estimated Glomerular Filt Rate 34 NOTE: For -Namibian individuals, multiply the result by 1.210. Chronic Kidney Disease: Estimated GFR < 60 mL/min/1.73m2 Severe Kidney Disease: Estimated GFR < 15 mL/min/1.73m2 Glucose Random 167 60-115 mg/dL Calcium 9.6 8.4-10.2 mg/dL Bilirubin Total 0.5 0.0-1.0 mg/dL Aspartate Amino Transferase 37 5-31 U/L Alanine Aminotransferase 30 0-31 U/L Total Protein 8.1 6.5-8.0 g/dL Albumin Level 3.7 3.5-5.0 g/dL Alkaline Phosphatase 62 39-117 U/L Lipase Reviewed date:04/12/2023 09:21:42 PM Interpretation:Normal Performing Lab:[facility], [address] [place] [phone] Notes/Report: Lipase 15 8-78 U/L SARS-CoV2/FLU/RSV Reviewed date:04/12/2023 09:21:42 PM Interpretation:Negative Performing Lab:[facility], [address] [place] [phone] Notes/Report: Influenza A PCR NEGATIVE Negative Influenza B PCR NEGATIVE Negative Resp Syncy Virus RNA Qual PCR NEGATIVE Negative SARS COV2 PCR INHOUSE NEGATIVE Negative All test results must be correlated with clinical findings. Negative results do not preclude SARS-CoV2, influenza A virus, influenza B virus and/or RSV infection and should not be used as the sole basis for treatment or other patient management decisions. Negative results must be combined with clinical observations, patient history, and epidemiological information. This test has not been evaluated for monitoring treatment of infection. This test has been authorized by the FDA under an Emergency Use Authorization (EUA) for use by authorized laboratories. Testing performed on the [employer] GeneXpert utilizing real-time RT-PCR. All SARS CoV2 and positive influenza A/B results are reported to [facility]. Lactic Acid Reviewed date:04/12/2023 09:21:42 PM Interpretation:Abnormal Performing Lab:[facility], [address] [place] [phone] Notes/Report: Lactic Acid 2.5 0.5-2.0 mmol/L Critical value for test(s): LACTA Results called to and read back by: CHANTALE Person calling: ERPLYERD Date: 04/12/23 Time: 1523 Lactic Acid-LAB USE ONLY Reviewed date:04/12/2023 09:21:42 PM Interpretation:Abnormal Performing Lab:[address] [phone] Notes/Report: Lactic Acid-LAB USE ONLY 2.1 0.5-2.0 mmol/L Critical value for test(s): LACTA Results called to and read back by:DEONDRE Person calling: ERPLYERD Date: 04/12/23 Time: 1744 Lactic Acid-LAB USE ONLY Reviewed date:04/12/2023 09:21:42 PM Interpretation:Abnormal Performing Lab:[address] [phone] Notes/Report: Lactic Acid-LAB USE ONLY 2.1 0.5-2.0 mmol/L Critical value for test(s): LACTA Results called to and read back by: LETICIA Person calling: ERPLYERD Date: 04/12/23 Time:1953 UA ClnCatch+Micro w/rflx Cul t Reviewed date:04/12/2023 09:21:42 PM Interpretation:Abnormal Performing Lab:[address] [phone] Notes/Report: Urine, Clean Catch Color Urine Yellow Appearance Urine Cloudy PH 6.0 5.0-9.0 Glucose Urine UA 100 Negative mg/dL Urine Blood Small (1+) Negative Specific [place] - Urine 1.010 1.005-1.025 Urine Protein 30 (1+) Neg-Trace mg/dL Urine Ketones Negative Negative mg/dL Nitrite Urine Negative Negative Leukocyte Esterase Urine Large (3+) Negative RBC Urine 6-10 0-2 /HPF WBC Urine >50 0-5 /HPF Squamous Epithelial Cell Urine 0-2 0-2 /HPF Bacteria Urine 4+ None Seen Hyaline Casts Urine 0-2 0-2 /LPF Urine Culture Reviewed date:04/14/2023 04:54:46 PM Interpretation:Abnormal Performing Lab:[address] [phone] Notes/Report: Urine Culture Report Result Urine Culture > 100,000 cfu/ml Urine Culture Mixed bacterial ray a characteristic of Urine Culture urogenital contamination. Blood Culture (First) Reviewed date:04/17/2023 05:24:20 PM Interpretation:Negative Performing Lab:[address] [phone] Notes/Report: Blood Culture (First) No growth after 5 days. Blood Culture (Second) Reviewed date:04/18/2023 09:10:55 AM Interpretation:Negative Performing Lab:[address] [phone] Notes/Report: Blood Culture (Second) No growth after 5 days. Complete Blood Count Auto Di ff Reviewed date:04/24/2023 06:35:30 PM Interpretation:Abnormal Performing Lab:[address] [phone] Notes/Report: White Blood Count 9.3 4.8-10.8 X10*3/uL Red Blood Count 4.28 4.20-5.50 X10*6/uL Hemoglobin 12.4 12.0-16.0 g/dl Hematocrit 38.2 37.0-47.0 % Mean Corpuscular Volume 89.3 80.0-98.0 fL Mean Corpuscular Hemoglobin 29.0 27.0-33.0 pg Mean Corpuscular HGB Conc 32.5 31.0-35.0 g/dl Red Cell Distribution Width 14.5 11.0-16.0 % Platelet Count 212 160-400 X10*3/uL Mean Platelet Volume 9.5 9.4-12.3 fL Neutrophils Percent Auto 81.6 45-73 % Imm Gran Pct Auto 1.2 0.0-0.4 % Lymphocytes Percent Auto 10.6 20-40 % Monocytes Percent Auto 5.7 2-11 % Eosinophils Percent Auto 0.5 0-4 % Basophils Percent Auto 0.4 0-2 % NRBC Pct Auto 0.0 0.0-0.2 /100WBC Neutrophils Absolute Auto 7.6 2.0-8.3 x10*3/uL Imm Gran Abs Auto 0.11 0.00-0.03 X10*3/uL Lymphocytes Absolute Auto 1.0 1.2-4.9 X10*3/uL Monocytes Absolute Auto 0.5 0.1-1.2 X10*3/uL Eosinophils Absolute Auto 0.1 0.0-0.4 X10*3/uL Basophils Absolute Auto 0.0 0.0-0.2 X10*3/uL NRBC Abs Auto 0.000 0.0-0.012 X10*3/uL UA ClnCatch+Micro w/rflx Cul t Reviewed date:04/24/2023 06:35:30 PM Interpretation:Abnormal Performing Lab:[facility], [address] [place] [phone] Notes/Report: Urine, Clean Catch Color Urine Yellow Appearance Urine Clear PH 6.0 5.0-9.0 Glucose Urine UA Negative Negative mg/dL Urine Blood Moderate (2+) Negative Specific [place] - Urine 1.010 1.005-1.025 Urine Protein Negative Neg-Trace mg/dL Urine Ketones Negative Negative mg/dL Nitrite Urine Negative Negative Leukocyte Esterase Urine Moderate (2+) Negative RBC Urine 11-20 0-2 /HPF WBC Urine 11-20 0-5 /HPF Squamous Epithelial Cell Urine 0-2 0-2 /HPF Bacteria Urine None Seen None Seen Hyaline Casts Urine 0-2 0-2 /LPF Comprehensive Met. Panel Reviewed date:04/24/2023 06:35:30 PM Interpretation:Abnormal Performing Lab:[facility], [address] [place] [phone] Notes/Report: Sodium 137 135-145 mmol/L Potassium 3.8 3.3-5.1 mmol/L Chloride 102 96-108 mmol/L Carbon Dioxide 23 22-29 mmol/L Anion Gap 16 12-20 Blood Urea Nitrogen 23 9-16 mg/dL Creatinine 1.37 0.5-1.4 mg/dL Creatinine Clr Calc Pharmacy 39.1 Provided height and weight: 162.56 cm, 95.254 kg. eGFR (calculated from the MDRD study equation) and eCrCl (calculated from the Cockcroft-Gault equation) are based on different parameters and may not yield comparable results. If eCrCl result is absurd, please check patient's height/weight. Estimated Glomerular Filt Rate 37 NOTE: For -Namibian individuals, multiply the result by 1.210. Chronic Kidney Disease: Estimated GFR < 60 mL/min/1.73m2 Severe Kidney Disease: Estimated GFR < 15 mL/min/1.73m2 Glucose Random 141 60-115 mg/dL Calcium 9.0 8.4-10.2 mg/dL Bilirubin Total 0.5 0.0-1.0 mg/dL Aspartate Amino Transferase 38 5-31 U/L Alanine Aminotransferase 33 0-31 U/L Total Protein 7.5 6.5-8.0 g/dL Albumin Level 3.6 3.5-5.0 g/dL Alkaline Phosphatase 70 39-117 U/L SARS-CoV2/FLU/RSV Reviewed date:04/24/2023 06:35:30 PM Interpretation:Negative Performing Lab:[address] [phone] Notes/Report: Influenza A PCR NEGATIVE Negative Influenza B PCR NEGATIVE Negative Resp Syncy Virus RNA Qual PCR NEGATIVE Negative SARS COV2 PCR INHOUSE NEGATIVE Negative All test results must be correlated with clinical findings. Negative results do not preclude SARS-CoV2, influenza A virus, influenza B virus and/or RSV infection and should not be used as the sole basis for treatment or other patient management decisions. Negative results must be combined with clinical observations, patient history, and epidemiological information. This test has not been evaluated for monitoring treatment of infection. This test has been authorized by the FDA under an Emergency Use Authorization (EUA) for use by authorized laboratories. Testing performed on the [employer] GeneXpert utilizing real-time RT-PCR. All SARS CoV2 and positive influenza A/B results are reported to [facility]. Lactic Acid Reviewed date:04/25/2023 11:17:08 AM Interpretation:Normal Performing Lab:[address] [phone] Notes/Report: Lactic Acid 1.3 0.5-2.0 mmol/L Complete Blood Count Auto Di ff Reviewed date:04/25/2023 11:17:08 AM Interpretation:Abnormal Performing Lab:[address] [phone] Notes/Report: White Blood Count 6.3 4.8-10.8 X10*3/uL Red Blood Count 3.77 4.20-5.50 X10*6/uL Hemoglobin 11.0 12.0-16.0 g/dl Hematocrit 33.5 37.0-47.0 % Mean Corpuscular Volume 88.9 80.0-98.0 fL Mean Corpuscular Hemoglobin 29.2 27.0-33.0 pg Mean Corpuscular HGB Conc 32.8 31.0-35.0 g/dl Red Cell Distribution Width 14.6 11.0-16.0 % Platelet Count 154 160-400 X10*3/uL Mean Platelet Volume 9.8 9.4-12.3 fL Neutrophils Percent Auto 65.4 45-73 % Imm Gran Pct Auto 1.3 0.0-0.4 % Lymphocytes Percent Auto 21.4 20-40 % Monocytes Percent Auto 11.1 2-11 % Eosinophils Percent Auto 0.5 0-4 % Basophils Percent Auto 0.3 0-2 % NRBC Pct Auto 0.0 0.0-0.2 /100WBC Neutrophils Absolute Auto 4.1 2.0-8.3 x10*3/uL Imm Gran Abs Auto 0.08 0.00-0.03 X10*3/uL Lymphocytes Absolute Auto 1.4 1.2-4.9 X10*3/uL Monocytes Absolute Auto 0.7 0.1-1.2 X10*3/uL Eosinophils Absolute Auto 0.0 0.0-0.4 X10*3/uL Basophils Absolute Auto 0.0 0.0-0.2 X10*3/uL NRBC Abs Auto 0.000 0.0-0.012 X10*3/uL Basic Metabolic Panel Reviewed date:04/25/2023 11:17:08 AM Interpretation:Abnormal Performing Lab:[facility], [address] [place] [phone] Notes/Report: Sodium 138 135-145 mmol/L Potassium 4.0 3.3-5.1 mmol/L Chloride 104 96-108 mmol/L Carbon Dioxide 25 22-29 mmol/L Anion Gap 13 12-20 Blood Urea Nitrogen 19 9-16 mg/dL Creatinine 1.46 0.5-1.4 mg/dL Creatinine Clr Calc Pharmacy 36.6 Provided height and weight: 162.56 cm, 95.254 kg. eGFR (calculated from the MDRD study equation) and eCrCl (calculated from the Cockcroft-Gault equation) are based on different parameters and may not yield comparable results. If eCrCl result is absurd, please check patient's height/weight. Estimated Glomerular Filt Rate 35 NOTE: For -Namibian individuals, multiply the result by 1.210. Chronic Kidney Disease: Estimated GFR < 60 mL/min/1.73m2 Severe Kidney Disease: Estimated GFR < 15 mL/min/1.73m2 Glucose Random 108 60-115 mg/dL Calcium 8.4 8.4-10.2 mg/dL Glucose, Whole Blood Reviewed date:04/25/2023 11:17:08 AM Interpretation:Abnormal Performing Lab:[facility], [address] [place] [phone] Notes/Report: Glucose, Whole Blood 121 60-115 mg/dL METER # : [id number] Urine Culture Reviewed date:04/25/2023 11:17:08 AM Interpretation:Abnormal Performing Lab:[facility], [address] [place] [phone] Notes/Report: O:STRVID Streptococcus viridans group Urine Culture Quant Urine Culture 50,000 to 100,000 cfu/mL Urine Culture CATH PUBLIC INFORMATION DIRECTOR? Urine Culture Susceptibility not routinely performed on this isolate. Glucose, Whole Blood Reviewed date:04/25/2023 01:40:34 PM Interpretation:Normal Performing Lab:[facility], [address] [place] [phone] Notes/Report: Glucose, Whole Blood 104 60-115 mg/dL METER # : [id number] Glucose, Whole Blood Reviewed date:04/25/2023 08:36:54 PM Interpretation:Normal Performing Lab:[facility], [address] [place] [phone] Notes/Report: Glucose, Whole Blood 107 60-115 mg/dL METER # : [id number] Glucose, Whole Blood Reviewed date:04/25/2023 10:42:39 PM Interpretation:Abnormal Performing Lab:[facility], [address] [place] [phone] Notes/Report: Glucose, Whole Blood 141 60-115 mg/dL METER # : [id number] Hold Lav - Possible Hematolo gy Reviewed date:04/26/2023 09:08:07 AM Interpretation:Hold Performing Lab:[facility], [address] [place] [phone] Notes/Report: Hold Lav - Possible Hematology SEE NOTE Specimen will be held untested for 8 hours. Call Hematology if testing is desired. Creatinine Reviewed date:04/26/2023 09:08:07 AM Interpretation:Normal Performing Lab:[facility], [address] [place] [phone] Notes/Report: Creatinine 1.27 0.5-1.4 mg/dL Creatinine Clr Calc Pharmacy 42.8 Provided height and weight: 162.56 cm, 97.8 kg. eGFR (calculated from the MDRD study equation) and eCrCl (calculated from the Cockcroft-Gault equation) are based on different parameters and may not yield comparable results. If eCrCl result is absurd, please check patient's height/weight. Estimated Glomerular Filt Rate 41 NOTE: For -Namibian individuals, multiply the result by 1.210. Chronic Kidney Disease: Estimated GFR < 60 mL/min/1.73m2 Severe Kidney Disease: Estimated GFR < 15 mL/min/1.73m2 Glucose, Whole Blood Reviewed date:04/26/2023 09:08:07 AM Interpretation:Normal Performing Lab:[facility], [address] [place] [phone] Notes/Report: Glucose, Whole Blood 107 60-115 mg/dL METER # : [id number] Glucose, Whole Blood Reviewed date:04/26/2023 11:15:52 AM Interpretation:Normal Performing Lab:[facility], [address] [place] [phone] Notes/Report: Glucose, Whole Blood 112 60-115 mg/dL METER # : [id number] Glucose, Whole Blood Reviewed date:04/26/2023 04:23:30 PM Interpretation:Abnormal Performing Lab:[facility], [address] [place] [phone] Notes/Report: Glucose, Whole Blood 123 60-115 mg/dL METER # : [id number] Glucose, Whole Blood Reviewed date:04/27/2023 09:28:01 AM Interpretation:Abnormal Performing Lab:[facility], [address] [place] [phone] Notes/Report: Glucose, Whole Blood 143 60-115 mg/dL METER # : [id number] Vancomycin Random Reviewed date:04/27/2023 09:28:01 AM Interpretation:Low Performing Lab:[facility], [address] [place] [phone] Notes/Report: Vancomycin Random 11.6 15-20 mcg/mL Creatinine Reviewed date:04/27/2023 09:28:01 AM Interpretation:Abnormal Performing Lab:[facility], [address] [place] [phone] Notes/Report: Creatinine 1.30 0.5-1.4 mg/dL Creatinine Clr Calc Pharmacy 41.7 Provided height and weight: 162.56 cm, 97.8 kg. eGFR (calculated from the MDRD study equation) and eCrCl (calculated from the Cockcroft-Gault equation) are based on different parameters and may not yield comparable results. If eCrCl result is absurd, please check patient's height/weight. Estimated Glomerular Filt Rate 40 NOTE: For -Namibian individuals, multiply the result by 1.210. Chronic Kidney Disease: Estimated GFR < 60 mL/min/1.73m2 Severe Kidney Disease: Estimated GFR < 15 mL/min/1.73m2 Glucose, Whole Blood Reviewed date:04/27/2023 09:28:01 AM Interpretation:Normal Performing Lab:[facility], [address] [place] [phone] Notes/Report: Glucose, Whole Blood 94 60-115 mg/dL METER # : [id number] Glucose, Whole Blood Reviewed date:04/27/2023 12:03:35 PM Interpretation:Abnormal Performing Lab:[facility], [address] [place] [phone] Notes/Report: Glucose, Whole Blood 135 60-115 mg/dL METER # : [id number] Glucose, Whole Blood Reviewed date:04/27/2023 05:12:58 PM Interpretation:Abnormal Performing Lab:[facility], [address] [place] [phone] Notes/Report: Glucose, Whole Blood 160 60-115 mg/dL METER # : [id number] Glucose, Whole Blood Reviewed date:04/28/2023 04:05:46 PM Interpretation:Abnormal Performing Lab:[facility], [address] [place] [phone] Notes/Report: Glucose, Whole Blood 128 60-115 mg/dL METER # : [id number] Vancomycin Random Reviewed date:04/28/2023 03:21:35 PM Interpretation:Low Performing Lab:[facility], [address] [place] [phone] Notes/Report: Vancomycin Random 12.0 15-20 mcg/mL Hold Lav - Possible Hematolo gy Reviewed date:04/28/2023 03:21:35 PM Interpretation:Hold Performing Lab:[facility], [address] [place] [phone] Notes/Report: Hold Lav - Possible Hematology SEE NOTE Specimen will be held untested for 8 hours. Call Hematology if testing is desired. Creatinine Reviewed date:04/28/2023 03:21:35 PM Interpretation:Normal Performing Lab:[facility], [address] [place] [phone] Notes/Report: Creatinine 1.02 0.5-1.4 mg/dL Creatinine Clr Calc Pharmacy 53.2 Provided height and weight: 162.56 cm, 97.8 kg. eGFR (calculated from the MDRD study equation) and eCrCl (calculated from the Cockcroft-Gault equation) are based on different parameters and may not yield comparable results. If eCrCl result is absurd, please check patient's height/weight. Estimated Glomerular Filt Rate 53 NOTE: For -Namibian individuals, multiply the result by 1.210. Chronic Kidney Disease: Estimated GFR < 60 mL/min/1.73m2 Severe Kidney Disease: Estimated GFR < 15 mL/min/1.73m2 Glucose, Whole Blood Reviewed date:04/28/2023 03:21:35 PM Interpretation:Normal Performing Lab:[facility], [address] [place] [phone] Notes/Report: Glucose, Whole Blood 90 60-115 mg/dL METER # : [id number] Glucose, Whole Blood Reviewed date:04/28/2023 03:21:35 PM Interpretation:Normal Performing Lab:[facility], [address] [place] [phone] Notes/Report: Glucose, Whole Blood 101 60-115 mg/dL METER # : [id number] Glucose, Whole Blood Reviewed date:04/28/2023 03:21:35 PM Interpretation:Abnormal Performing Lab:[facility], [address] [place] [phone] Notes/Report: Glucose, Whole Blood 212 60-115 mg/dL METER # : [id number] Glucose, Whole Blood Reviewed date:04/28/2023 11:20:44 PM Interpretation:Normal Performing Lab:[facility], [address] [place] [phone] Notes/Report: Glucose, Whole Blood 93 60-115 mg/dL METER # : [id number] Glucose, Whole Blood Reviewed date:04/28/2023 11:20:44 PM Interpretation:Abnormal Performing Lab:[facility], [address] [place] [phone] Notes/Report: Glucose, Whole Blood 137 60-115 mg/dL METER # : [id number] Hold Lav - Possible Hematolo gy Reviewed date:04/29/2023 09:29:12 AM Interpretation:Hold Performing Lab:[facility], [address] [place] [phone] Notes/Report: Hold Lav - Possible Hematology SEE NOTE Specimen will be held untested for 8 hours. Call Hematology if testing is desired. Creatinine Reviewed date:04/29/2023 09:29:12 AM Interpretation:Abnormal Performing Lab:[facility], [address] [place] [phone] Notes/Report: Creatinine 1.26 0.5-1.4 mg/dL Creatinine [facility] Calc Pharmacy 43.1 Provided height and weight: 162.56 cm, 97.8 kg. eGFR (calculated from the MDRD study equation) and eCrCl (calculated from the Cockcroft-Gault equation) are based on different parameters and may not yield comparable results. If eCrCl result is absurd, please check patient's height/weight. Estimated Glomerular Filt Rate 41 NOTE: For -Namibian individuals, multiply the result by 1.210. Chronic Kidney Disease: Estimated GFR < 60 mL/min/1.73m2 Severe Kidney Disease: Estimated GFR < 15 mL/min/1.73m2 Glucose, Whole Blood Reviewed date:04/29/2023 09:29:12 AM Interpretation:Normal Performing Lab:[facility], [address] [place] [phone] Notes/Report: Glucose, Whole Blood 107 60-115 mg/dL METER # : [id number] Glucose, Whole Blood Reviewed date:04/29/2023 11:56:17 AM Interpretation:Abnormal Performing Lab:[facility], [address] [place] [phone] Notes/Report: Glucose, Whole Blood 123 60-115 mg/dL METER # : [id number] Pathology Reviewed date:04/29/2023 04:01:14 PM Interpretation:Benign Performing Lab:[facility], [address] [place] [phone] Notes/Report: Glucose, Whole Blood Reviewed date:04/30/2023 12:50:15 PM Interpretation:Abnormal Performing Lab:[facility], [address] [place] [phone] Notes/Report: Glucose, Whole Blood 134 60-115 mg/dL METER # : [id number] Glucose, Whole Blood Reviewed date:04/30/2023 12:50:15 PM Interpretation:Abnormal Performing Lab:[facility], [address] [place] [phone] Notes/Report: Glucose, Whole Blood 142 60-115 mg/dL METER # : [id number] Blood Culture < 90 LBS Reviewed date:04/30/2023 12:49:02 PM Interpretation:Negative Performing Lab:[facility], [address] [place] [phone] Notes/Report: Blood Culture X1 No growth after 5 days. Hold Lav - Possible Hematolo gy Reviewed date:04/30/2023 12:49:22 PM Interpretation:Hold Performing Lab:[facility], [address] [place] [phone] Notes/Report: Hold Lav - Possible Hematology SEE NOTE Specimen will be held untested for 8 hours. Call Hematology if testing is desired. Creatinine Reviewed date:04/30/2023 12:50:15 PM Interpretation:Abnormal Performing Lab:[facility], [address] [place] [phone] Notes/Report: Creatinine 1.03 0.5-1.4 mg/dL Creatinine Clr Calc Pharmacy 52.7 Provided height and weight: 162.56 cm, 97.8 kg. eGFR (calculated from the MDRD study equation) and eCrCl (calculated from the Cockcroft-Gault equation) are based on different parameters and may not yield comparable results. If eCrCl result is absurd, please check patient's height/weight. Estimated Glomerular Filt Rate 52 NOTE: For -Namibian individuals, multiply the result by 1.210. Chronic Kidney Disease: Estimated GFR < 60 mL/min/1.73m2 Severe Kidney Disease: Estimated GFR < 15 mL/min/1.73m2 Glucose, Whole Blood Reviewed date:04/30/2023 12:50:15 PM Interpretation:Normal Performing Lab:[facility], [address] [place] [phone] Notes/Report: Glucose, Whole Blood 99 60-115 mg/dL METER # : [id number] Complete Blood Count Auto Di ff Reviewed date:07/03/2023 11:45:43 AM Interpretation:Normal Performing Lab:[facility], [address] [place] [phone] Notes/Report: White Blood Count 8.5 4.8-10.8 X10*3/uL Red Blood Count 4.31 4.20-5.50 X10*6/uL Hemoglobin 12.9 12.0-16.0 g/dl Hematocrit 38.9 37.0-47.0 % Mean Corpuscular Volume 90.3 80.0-98.0 fL Mean Corpuscular Hemoglobin 29.9 27.0-33.0 pg Mean Corpuscular HGB Conc 33.2 31.0-35.0 g/dl Red Cell Distribution Width 16.0 11.0-16.0 % Platelet Count 240 160-400 X10*3/uL Mean Platelet Volume 9.8 9.4-12.3 fL Neutrophils Percent Auto 62.8 45-73 % Imm Gran Pct Auto 1.3 0.0-0.4 % Lymphocytes Percent Auto 26.9 20-40 % Monocytes Percent Auto 7.2 2-11 % Eosinophils Percent Auto 1.3 0-4 % Basophils Percent Auto 0.5 0-2 % NRBC Pct Auto 0.0 0.0-0.2 /100WBC Neutrophils Absolute Auto 5.4 2.0-8.3 x10*3/uL Imm Gran Abs Auto 0.11 0.00-0.03 X10*3/uL Lymphocytes Absolute Auto 2.3 1.2-4.9 X10*3/uL Monocytes Absolute Auto 0.6 0.1-1.2 X10*3/uL Eosinophils Absolute Auto 0.1 0.0-0.4 X10*3/uL Basophils Absolute Auto 0.0 0.0-0.2 X10*3/uL NRBC Abs Auto 0.000 0.0-0.012 X10*3/uL UA CC w/rflx Micro + Cult Reviewed date:07/03/2023 11:45:43 AM Interpretation:Abnormal Performing Lab:[address] [phone] Notes/Report: [id number] Urine, Clean Catch Color Urine Yellow Appearance Urine Cloudy PH 6.0 5.0-9.0 Glucose Urine UA 100 Negative mg/dL Urine Blood Large (3+) Negative Specific [place] - Urine 1.015 1.005-1.025 Urine Protein 30 (1+) Neg-Trace mg/dL Urine Ketones Negative Negative mg/dL Nitrite Urine Negative Negative Leukocyte Esterase Urine Large (3+) Negative UA ClnCatch+Micro w/rflx Cul t Reviewed date:07/03/2023 11:45:43 AM Interpretation:Abnormal Performing Lab:[facility], [address] [place] [phone] Notes/Report: [id number] Urine, Clean Catch Color Urine Yellow Appearance Urine Cloudy PH 6.0 5.0-9.0 Glucose Urine UA 100 Negative mg/dL Urine Blood Large (3+) Negative Specific [place] - Urine 1.015 1.005-1.025 Urine Protein 30 (1+) Neg-Trace mg/dL Urine Ketones Negative Negative mg/dL Nitrite Urine Negative Negative Leukocyte Esterase Urine Large (3+) Negative RBC Urine >20 0-2 /HPF WBC Urine >50 0-5 /HPF Squamous Epithelial Cell Urine 0-2 0-2 /HPF Bacteria Urine None Seen None Seen Hyaline Casts Urine 0-2 0-2 /LPF Liver Panel Reviewed date:07/03/2023 11:43:48 AM Interpretation:Normal Performing Lab:[address] [phone] Notes/Report: Bilirubin Total 0.4 0.0-1.0 mg/dL Bilirubin Direct 0.2 0.0-0.5 mg/dL Aspartate Amino Transferase 29 5-31 U/L Alanine Aminotransferase 26 0-31 U/L Total Protein 7.9 6.5-8.0 g/dL Albumin Level 3.8 3.5-5.0 g/dL Alkaline Phosphatase 64 39-117 U/L Basic Metabolic Panel Reviewed date:07/03/2023 11:44:40 AM Interpretation:Abnormal Performing Lab:[address] [phone] Notes/Report: Sodium 138 135-145 mmol/L Potassium 4.3 3.3-5.1 mmol/L Chloride 107 96-108 mmol/L Carbon Dioxide 20 22-29 mmol/L Anion Gap 15 12-20 Blood Urea Nitrogen 28 9-16 mg/dL Creatinine 1.63 0.5-1.4 mg/dL Creatinine Clr Calc Pharmacy 32.6 Provided height and weight: 162.56 cm, 93.894 kg. eGFR (calculated from the MDRD study equation) and eCrCl (calculated from the Cockcroft-Gault equation) are based on different parameters and may not yield comparable results. If eCrCl result is absurd, please check patient's height/weight. Estimated Glomerular Filt Rate 31 NOTE: For -Namibian individuals, multiply the result by 1.210. Chronic Kidney Disease: Estimated GFR < 60 mL/min/1.73m2 Severe Kidney Disease: Estimated GFR < 15 mL/min/1.73m2 Glucose Random 172 60-115 mg/dL Calcium 9.4 8.4-10.2 mg/dL Urine Culture Reviewed date:07/04/2023 10:16:40 AM Interpretation:Abnormal Performing Lab:[address] [phone] Notes/Report: O:PROMIR Proteus mirabilis Urine Culture Quant Urine Culture 10,000 to 50,000 cfu/mL Ampicillin <=2 Ceftriaxone <=0.25 Gentamicin <=1 Nitrofurantoin 128 Trimethoprim/Sulfamethox azole <=20 Bacterial Vaginosis Panel Reviewed date:07/06/2023 05:45:16 PM Interpretation:Negative Performing Lab:[address] [phone] Notes/Report: Trichomonas vaginalis PCR NOT DETECTED Not Detect Bacterial Vaginosis PCR NEGATIVE Negative The BV organism targets of the Xpert Xpress MVP test can be commensal in women; Xpert Xpress MVP positive results for bacterial vaginosis should be considered in conjunction with other clinical and patient information to determine the disease status. Organisms that are not detected by the Xpert Xpress MVP test have also been reported to be associated with BV and aerobic vaginitis. The Xpert Xpress MVP test performance has not been evaluated in patients under the age of 14. [employer] PCR NOT DETECTED Not Detect Tiki glab krusei PCR NOT DETECTED Not Detect Urine Culture Reviewed date:07/21/2023 11:53:01 AM Interpretation:Abnormal Performing Lab:[address] [phone] Notes/Report: Urine Culture Report Result Urine Culture < 10,000 cfu/ml Urinalysis and Microscopic Reviewed date:07/20/2023 09:57:35 AM Interpretation:Abnormal Performing Lab:[address] [phone] Notes/Report: Color Urine Yellow Appearance Urine Clear PH 6.0 5.0-9.0 Glucose Urine UA Negative Negative mg/dL Urine Blood Moderate (2+) Negative Specific [place] - Urine <= 1.005 1.005-1.025 Urine Protein Negative Neg-Trace mg/dL Urine Ketones Negative Negative mg/dL Nitrite Urine Negative Negative Leukocyte Esterase Urine Small (1+) Negative RBC Urine 11-20 0-2 /HPF WBC Urine 11-20 0-5 /HPF Squamous Epithelial Cell Urine 0-2 0-2 /HPF Bacteria Urine None Seen None Seen Hyaline Casts Urine 0-2 0-2 /LPF UA ClnCatch+Micro w/rflx Cul t Reviewed date:07/22/2023 09:03:33 AM Interpretation:Abnormal Performing Lab:[facility] [phone] Notes/Report: [id number] Urine, Clean Catch Color Urine Red Appearance Urine Turbid PH 5.5 5.0-9.0 Glucose Urine UA Negative Negative mg/dL Urine Blood Large (3+) Negative Specific [place] - Urine 1.010 1.005-1.025 Urine Protein 100 (2+) Neg-Trace mg/dL Urine Ketones Negative Negative mg/dL Nitrite Urine Negative Negative Leukocyte Esterase Urine Large (3+) Negative RBC Urine >20 0-2 /HPF WBC Urine >50 0-5 /HPF Squamous Epithelial Cell Urine 0-2 0-2 /HPF Bacteria Urine None Seen None Seen Hyaline Casts Urine 0-2 0-2 /LPF Urine Culture Reviewed date:07/23/2023 10:17:54 PM Interpretation:Abnormal Performing Lab:[address] [phone] Notes/Report: Urine Culture Report Result Urine Culture 10,000 to 50,000 cfu/ml Urine Culture Mixed bacterial ray a characteristic of Urine Culture urogenital contamination. C Reactive Protein Reviewed date:08/16/2023 04:50:12 PM Interpretation:Abnormal Performing Lab:[address] [phone] Notes/Report: C Reactive Protein 1.64 < or = 0.50 mg/dL Basic Metabolic Panel Reviewed date:08/16/2023 04:50:12 PM Interpretation:Abnormal Performing Lab:[address] [phone] Notes/Report: Sodium 137 135-145 mmol/L Potassium 3.8 3.3-5.1 mmol/L Chloride 106 96-108 mmol/L Carbon Dioxide 23 22-29 mmol/L Anion Gap 12 12-20 Blood Urea Nitrogen 21 9-16 mg/dL Creatinine 1.34 0.5-1.4 mg/dL Estimated Glomerular Filt Rate 38 NOTE: For -Namibian individuals, multiply the result by 1.210. Chronic Kidney Disease: Estimated GFR < 60 mL/min/1.73m2 Severe Kidney Disease: Estimated GFR < 15 mL/min/1.73m2 Glucose Random 153 60-115 mg/dL Calcium 9.2 8.4-10.2 mg/dL Complete Blood Count Auto Di ff Reviewed date:08/16/2023 04:50:12 PM Interpretation:Normal Performing Lab:[facility], [address] [place] [phone] Notes/Report: White Blood Count 9.0 4.8-10.8 X10*3/uL Red Blood Count 4.12 4.20-5.50 X10*6/uL Hemoglobin 12.5 12.0-16.0 g/dl Hematocrit 37.5 37.0-47.0 % Mean Corpuscular Volume 91.0 80.0-98.0 fL Mean Corpuscular Hemoglobin 30.3 27.0-33.0 pg Mean Corpuscular HGB Conc 33.3 31.0-35.0 g/dl Red Cell Distribution Width 15.3 11.0-16.0 % Platelet Count 230 160-400 X10*3/uL Mean Platelet Volume 10.2 9.4-12.3 fL Neutrophils Percent Auto 63.5 45-73 % Imm Gran Pct Auto 1.8 0.0-0.4 % Lymphocytes Percent Auto 23.9 20-40 % Monocytes Percent Auto 8.6 2-11 % Eosinophils Percent Auto 1.6 0-4 % Basophils Percent Auto 0.6 0-2 % NRBC Pct Auto 0.0 0.0-0.2 /100WBC Neutrophils Absolute Auto 5.7 2.0-8.3 x10*3/uL Imm Gran Abs Auto 0.16 0.00-0.03 X10*3/uL Lymphocytes Absolute Auto 2.2 1.2-4.9 X10*3/uL Monocytes Absolute Auto 0.8 0.1-1.2 X10*3/uL Eosinophils Absolute Auto 0.1 0.0-0.4 X10*3/uL Basophils Absolute Auto 0.1 0.0-0.2 X10*3/uL NRBC Abs Auto 0.000 0.0-0.012 X10*3/uL Erythrocyte Sedimentation Ra te Reviewed date:08/17/2023 09:09:14 AM Interpretation:Abnormal Performing Lab:[facility], [address] [place] [phone] Notes/Report: Erythrocyte Sedimentation Rate 51 0-20 MM/HR Patients with polycythemia and many hemoglobin abnormalities may have depressed sed rates whereas patients with anemia may have elevated sed rates. UA ClnCatch+Micro w/rflx Cul t Reviewed date:10/03/2023 04:53:39 PM Interpretation:Abnormal Performing Lab:[facility], [address] [place] [phone] Notes/Report: [id number] Urine, Clean Catch Color Urine Yellow Appearance Urine Turbid PH 6.5 5.0-9.0 Glucose Urine UA 100 Negative mg/dL Urine Blood Moderate (2+) Negative Specific [place] - Urine 1.015 1.005-1.025 Urine Protein 100 (2+) Neg-Trace mg/dL Urine Ketones Trace Negative mg/dL Nitrite Urine Negative Negative Leukocyte Esterase Urine Large (3+) Negative RBC Urine 11-20 0-2 /HPF WBC Urine >50 0-5 /HPF Squamous Epithelial Cell Urine 11-20 0-2 /HPF Bacteria Urine 4+ None Seen Hyaline Casts Urine >20 0-2 /LPF Complete Blood Count Auto Di ff Reviewed date:10/03/2023 04:53:39 PM Interpretation:Abnormal Performing Lab:[facility], [address] [place] [phone] Notes/Report: White Blood Count 12.0 4.8-10.8 X10*3/uL Red Blood Count 4.19 4.20-5.50 X10*6/uL Hemoglobin 13.2 12.0-16.0 g/dl Hematocrit 38.7 37.0-47.0 % Mean Corpuscular Volume 92.4 80.0-98.0 fL Mean Corpuscular Hemoglobin 31.5 27.0-33.0 pg Mean Corpuscular HGB Conc 34.1 31.0-35.0 g/dl Red Cell Distribution Width 15.9 11.0-16.0 % Platelet Count 297 160-400 X10*3/uL Mean Platelet Volume 9.2 9.4-12.3 fL Neutrophils Percent Auto 69.8 45-73 % Imm Gran Pct Auto 2.0 0.0-0.4 % Lymphocytes Percent Auto 20.4 20-40 % Monocytes Percent Auto 7.2 2-11 % Eosinophils Percent Auto 0.3 0-4 % Basophils Percent Auto 0.3 0-2 % NRBC Pct Auto 0.0 0.0-0.2 /100WBC Neutrophils Absolute Auto 8.4 2.0-8.3 x10*3/uL Imm Gran Abs Auto 0.24 0.00-0.03 X10*3/uL Lymphocytes Absolute Auto 2.4 1.2-4.9 X10*3/uL Monocytes Absolute Auto 0.9 0.1-1.2 X10*3/uL Eosinophils Absolute Auto 0.0 0.0-0.4 X10*3/uL Basophils Absolute Auto 0.0 0.0-0.2 X10*3/uL NRBC Abs Auto 0.000 0.0-0.012 X10*3/uL Comprehensive Met. Panel Reviewed date:10/03/2023 04:53:39 PM Interpretation:Abnormal Performing Lab:[facility], [address] [place] [phone] Notes/Report: Sodium 136 135-145 mmol/L Potassium 4.3 3.3-5.1 mmol/L Slight Hemoly sis Chloride 103 96-108 mmol/L Carbon Dioxide 20 22-29 mmol/L Anion Gap 17 12-20 Blood Urea Nitrogen 30 9-16 mg/dL Creatinine 1.85 0.5-1.4 mg/dL Creatinine Clr Calc Pharmacy 28.0 Provided height and weight: 162.56 cm, 89.358 kg. eGFR (calculated from the MDRD study equation) and eCrCl (calculated from the Cockcroft-Gault equation) are based on different parameters and may not yield comparable results. If eCrCl result is absurd, please check patient's height/weight. Estimated Glomerular Filt Rate 27 NOTE: For -Namibian individuals, multiply the result by 1.210. Chronic Kidney Disease: Estimated GFR < 60 mL/min/1.73m2 Severe Kidney Disease: Estimated GFR < 15 mL/min/1.73m2 Glucose Random 141 60-115 mg/dL Calcium 9.8 8.4-10.2 mg/dL Bilirubin Total 1.0 0.0-1.0 mg/dL Aspartate Amino Transferase 34 5-31 U/L Slight Hemolysis Alanine Aminotransferase 20 0-31 U/L Total Protein 7.8 6.5-8.0 g/dL Albumin Level 3.6 3.5-5.0 g/dL Alkaline Phosphatase 77 39-117 U/L Liver Panel Reviewed date:10/03/2023 04:53:39 PM Interpretation:Normal Performing Lab:[address] [phone] Notes/Report: Bilirubin Direct 0.4 0.0-0.5 mg/dL Slight Hem olysis Lipase Reviewed date:10/03/2023 04:53:39 PM Interpretation:Normal Performing Lab:[address] [phone] Notes/Report: Lipase 12 8-78 U/L SARS-CoV2/FLU/RSV Reviewed date:10/03/2023 04:54:02 PM Interpretation:Negative Performing Lab:[address] [phone] Notes/Report: Influenza A PCR NEGATIVE Negative Influenza B PCR NEGATIVE Negative Resp Syncy Virus RNA Qual PCR NEGATIVE Negative SARS COV2 PCR INHOUSE NEGATIVE Negative All test results must be correlated with clinical findings. Negative results do not preclude SARS-CoV2, influenza A virus, influenza B virus and/or RSV infection and should not be used as the sole basis for treatment or other patient management decisions. Negative results must be combined with clinical observations, patient history, and epidemiological information. This test has not been evaluated for monitoring treatment of infection. This test has been authorized by the FDA under an Emergency Use Authorization (EUA) for use by authorized laboratories. Testing performed on the [employer] GeneXpert utilizing real-time RT-PCR. All SARS CoV2 and positive influenza A/B results are reported to [facility]. Lactic Acid Reviewed date:10/04/2023 09:13:26 AM Interpretation:Abnormal Performing Lab:[address] [phone] Notes/Report: Lactic Acid 2.5 0.5-2.0 mmol/L Critical value for test(s): LACTIC ACID Results called to and read back by:ANDREIA Person calling:TILA Date:10/04/23 Time:0022 Lactic Acid-LAB USE ONLY Reviewed date:10/04/2023 09:13:26 AM Interpretation:Normal Performing Lab:[address] [phone] Notes/Report: Lactic Acid-LAB USE ONLY 1.1 0.5-2.0 mmol/L Glucose, Whole Blood Reviewed date:10/04/2023 09:13:26 AM Interpretation:Abnormal Performing Lab:[facility], [address] [place] [phone] Notes/Report: Glucose, Whole Blood 117 60-115 mg/dL METER # : [id number] Glucose, Whole Blood Reviewed date:10/04/2023 10:09:31 AM Interpretation:Abnormal Performing Lab:[facility], [address] [place] [phone] Notes/Report: Glucose, Whole Blood 128 60-115 mg/dL METER # : [id number] Complete Blood Count Auto Di ff Reviewed date:10/04/2023 10:28:57 AM Interpretation:Abnormal Performing Lab:[facility], [address] [place] [phone] Notes/Report: White Blood Count 9.6 4.8-10.8 X10*3/uL Red Blood Count 3.72 4.20-5.50 X10*6/uL Hemoglobin 11.8 12.0-16.0 g/dl Hematocrit 35.2 37.0-47.0 % Mean Corpuscular Volume 94.6 80.0-98.0 fL Mean Corpuscular Hemoglobin 31.7 27.0-33.0 pg Mean Corpuscular HGB Conc 33.5 31.0-35.0 g/dl Red Cell Distribution Width 16.2 11.0-16.0 % Platelet Count 233 160-400 X10*3/uL Mean Platelet Volume 9.1 9.4-12.3 fL Neutrophils Percent Auto 70.9 45-73 % Imm Gran Pct Auto 1.6 0.0-0.4 % Lymphocytes Percent Auto 17.4 20-40 % Monocytes Percent Auto 8.9 2-11 % Eosinophils Percent Auto 0.9 0-4 % Basophils Percent Auto 0.3 0-2 % NRBC Pct Auto 0.0 0.0-0.2 /100WBC Neutrophils Absolute Auto 6.8 2.0-8.3 x10*3/uL Imm Gran Abs Auto 0.15 0.00-0.03 X10*3/uL Lymphocytes Absolute Auto 1.7 1.2-4.9 X10*3/uL Monocytes Absolute Auto 0.9 0.1-1.2 X10*3/uL Eosinophils Absolute Auto 0.1 0.0-0.4 X10*3/uL Basophils Absolute Auto 0.0 0.0-0.2 X10*3/uL NRBC Abs Auto 0.000 0.0-0.012 X10*3/uL Basic Metabolic Panel Reviewed date:10/04/2023 10:51:28 AM Interpretation:Abnormal Performing Lab:[facility], [address] [place] [phone] Notes/Report: Sodium 137 135-145 mmol/L Potassium 4.2 3.3-5.1 mmol/L Chloride 104 96-108 mmol/L Carbon Dioxide 24 22-29 mmol/L Anion Gap 13 12-20 Blood Urea Nitrogen 39 9-16 mg/dL Creatinine 2.46 0.5-1.4 mg/dL Creatinine Clr Calc Pharmacy 21.0 Provided height and weight: 162.56 cm, 89.358 kg. eGFR (calculated from the MDRD study equation) and eCrCl (calculated from the Cockcroft-Gault equation) are based on different parameters and may not yield comparable results. If eCrCl result is absurd, please check patient's height/weight. Estimated Glomerular Filt Rate 19 NOTE: For -Namibian individuals, multiply the result by 1.210. Chronic Kidney Disease: Estimated GFR < 60 mL/min/1.73m2 Severe Kidney Disease: Estimated GFR < 15 mL/min/1.73m2 Glucose Random 130 60-115 mg/dL Calcium 8.8 8.4-10.2 mg/dL Electrolytes Urine Reviewed date:10/04/2023 03:23:13 PM Interpretation:Normal Performing Lab:[facility], [address] [place] [phone] Notes/Report: Chloride Urine Random 41.0 Sodium Urine Random 61.0 Potassium Urine Random 42.2 Protein Creatinine Ratio, Ur Reviewed date:10/04/2023 03:23:13 PM Interpretation:Abnormal Performing Lab:[facility], [address] [place] [phone] Notes/Report: Creatinine Urine 158.74 Total Protein Urine Random 189 <12 mg/dL Protein/Creatinine Ratio, Ur 1.19 <0.2 The spot urine protein:creatinine ratio may increase to 0.3 during normal . Glucose, Whole Blood Reviewed date:10/04/2023 03:23:13 PM Interpretation:Abnormal Performing Lab:[facility], [address] [place] [phone] Notes/Report: Glucose, Whole Blood 135 60-115 mg/dL METER # : [id number] Glucose, Whole Blood Reviewed date:10/04/2023 10:27:56 PM Interpretation:Abnormal Performing Lab:[facility], [address] [place] [phone] Notes/Report: Glucose, Whole Blood 137 60-115 mg/dL METER # : [id number] Creatinine Urine Reviewed date:10/05/2023 09:45:35 AM Interpretation:Normal Performing Lab:[facility], [address] [place] [phone] Notes/Report: Creatinine Urine 41.25 Sodium Urine Random Reviewed date:10/05/2023 09:45:35 AM Interpretation:Normal Performing Lab:[facility], [address] [place] [phone] Notes/Report: Sodium Urine Random 55.0 Total Protein Urine Random Reviewed date:10/05/2023 09:45:35 AM Interpretation:Abnormal Performing Lab:[facility], [address] [place] [phone] Notes/Report: Total Protein Urine Random 19 <12 mg/dL Glucose, Whole Blood Reviewed date:10/05/2023 09:45:35 AM Interpretation:Normal Performing Lab:[facility], [address] [place] [phone] Notes/Report: Glucose, Whole Blood 98 60-115 mg/dL METER # : [id number] Glucose, Whole Blood Reviewed date:10/05/2023 09:41:35 AM Interpretation:Normal Performing Lab:[facility], [address] [place] [phone] Notes/Report: Glucose, Whole Blood 107 60-115 mg/dL METER # : [id number] Complete Blood Count no Diff Reviewed date:10/05/2023 09:45:35 AM Interpretation:Abnormal Performing Lab:[facility], [address] [place] [phone] Notes/Report: White Blood Count 6.3 4.8-10.8 X10*3/uL Red Blood Count 3.72 4.20-5.50 X10*6/uL Hemoglobin 11.5 12.0-16.0 g/dl Hematocrit 35.9 37.0-47.0 % Mean Corpuscular Volume 96.5 80.0-98.0 fL Mean Corpuscular Hemoglobin 30.9 27.0-33.0 pg Mean Corpuscular HGB Conc 32.0 31.0-35.0 g/dl Red Cell Distribution Width 16.0 11.0-16.0 % Platelet Count 238 160-400 X10*3/uL Mean Platelet Volume 9.5 9.4-12.3 fL NRBC Pct Auto 0.0 0.0-0.2 /100WBC NRBC Abs Auto 0.000 0.0-0.012 X10*3/uL Basic Metabolic Panel Reviewed date:10/05/2023 09:45:35 AM Interpretation:Abnormal Performing Lab:[facility], [address] [place] [phone] Notes/Report: Sodium 137 135-145 mmol/L Potassium 4.6 3.3-5.1 mmol/L Slight Hemoly sis Chloride 106 96-108 mmol/L Carbon Dioxide 20 22-29 mmol/L Anion Gap 16 12-20 Blood Urea Nitrogen 32 9-16 mg/dL Creatinine 2.08 0.5-1.4 mg/dL Creatinine Clr Calc Pharmacy 24.9 Provided height and weight: 162.56 cm, 89.358 kg. eGFR (calculated from the MDRD study equation) and eCrCl (calculated from the Cockcroft-Gault equation) are based on different parameters and may not yield comparable results. If eCrCl result is absurd, please check patient's height/weight. Estimated Glomerular Filt Rate 23 NOTE: For -Namibian individuals, multiply the result by 1.210. Chronic Kidney Disease: Estimated GFR < 60 mL/min/1.73m2 Severe Kidney Disease: Estimated GFR < 15 mL/min/1.73m2 Glucose Random 88 60-115 mg/dL Calcium 9.2 8.4-10.2 mg/dL Urine Culture Reviewed date:10/05/2023 09:45:35 AM Interpretation:Abnormal Performing Lab:[facility], [address] [place] [phone] Notes/Report: Urine Culture Report Result Urine Culture > 100,000 cfu/ml Urine Culture Mixed bacterial ray a characteristic of Urine Culture urogenital contamination. Glucose, Whole Blood Reviewed date:10/05/2023 09:53:46 AM Interpretation:Abnormal Performing Lab:[facility], [address] [place] [phone] Notes/Report: Glucose, Whole Blood 120 60-115 mg/dL METER # : [id number] Glucose, Whole Blood Reviewed date:10/05/2023 05:55:06 PM Interpretation:Normal Performing Lab:[facility], [address] [place] [phone] Notes/Report: Glucose, Whole Blood 108 60-115 mg/dL METER # : [id number] Glucose, Whole Blood Reviewed date:10/06/2023 04:30:11 PM Interpretation:Normal Performing Lab:[facility], [address] [place] [phone] Notes/Report: Glucose, Whole Blood 77 60-115 mg/dL METER # : [id number] Glucose, Whole Blood Reviewed date:10/06/2023 04:30:11 PM Interpretation:Normal Performing Lab:[facility], [address] [place] [phone] Notes/Report: Glucose, Whole Blood 97 60-115 mg/dL METER # : [id number] Complete Blood Count no Diff Reviewed date:10/06/2023 04:30:11 PM Interpretation:Abnormal Performing Lab:[facility], [address] [place] [phone] Notes/Report: White Blood Count 5.0 4.8-10.8 X10*3/uL Red Blood Count 3.35 4.20-5.50 X10*6/uL Hemoglobin 10.5 12.0-16.0 g/dl Hematocrit 32.6 37.0-47.0 % Mean Corpuscular Volume 97.3 80.0-98.0 fL Mean Corpuscular Hemoglobin 31.3 27.0-33.0 pg Mean Corpuscular HGB Conc 32.2 31.0-35.0 g/dl Red Cell Distribution Width 16.3 11.0-16.0 % Platelet Count 189 160-400 X10*3/uL Mean Platelet Volume 9.3 9.4-12.3 fL NRBC Pct Auto 0.0 0.0-0.2 /100WBC NRBC Abs Auto 0.000 0.0-0.012 X10*3/uL Basic Metabolic Panel Fastin g Reviewed date:10/06/2023 04:30:11 PM Interpretation:Abnormal Performing Lab:[facility], [address] [place] [id number] Notes/Report: Sodium 139 135-145 mmol/L Potassium 4.1 3.3-5.1 mmol/L Chloride 109 96-108 mmol/L Carbon Dioxide 21 22-29 mmol/L Anion Gap 13 12-20 Blood Urea Nitrogen 21 9-16 mg/dL Creatinine 1.43 0.5-1.4 mg/dL Creatinine Clr Calc Pharmacy 36.2 Provided height and weight: 162.56 cm, 89.358 kg. eGFR (calculated from the MDRD study equation) and eCrCl (calculated from the Cockcroft-Gault equation) are based on different parameters and may not yield comparable results. If eCrCl result is absurd, please check patient's height/weight. Estimated Glomerular Filt Rate 36 NOTE: For -Namibian individuals, multiply the result by 1.210. Chronic Kidney Disease: Estimated GFR < 60 mL/min/1.73m2 Severe Kidney Disease: Estimated GFR < 15 mL/min/1.73m2 Glucose Fasting 79 60-99 mg/dL Calcium 8.2 8.4-10.2 mg/dL Type and Screen Reviewed date:10/06/2023 04:30:11 PM Interpretation:Negative Performing Lab:[facility], [address] [place] [phone] Notes/Report: Blood Type OP Antibody Screen NEGATIVE Glucose, Whole Blood Reviewed date:10/06/2023 04:30:11 PM Interpretation:Normal Performing Lab:[facility], [address] [place] [phone] Notes/Report: Glucose, Whole Blood 96 60-115 mg/dL METER # : [id number] Blood Culture (Second) Reviewed date:10/06/2023 04:30:11 PM Interpretation:Positive Performing Lab:[facility], [address] [place] [phone] Notes/Report: Blood Culture (Second) Results of Blood Culture gram stain sent by a secure message and confirmed by DR VILLANUEVA on 10/04/23 at 2132 by RUBEN. Blood Culture (Second) Results of Blood Culture gram stain sent by a secure message and confirmed by DR VILLANUEVA on 10/04/23 at 2132 by RUBEN. Blood Culture (Second) Results of Blood Culture gram stain sent by a secure message and confirmed by DR VILLANUEVA on 10/04/232132 by RUBEN. Blood Culture (Second) Results of Blood Culture gram stain sent by a secure message and confirmed by DR VILLANUEVA on 10/04/23 at 2132 by RUBEN. Blood Culture (Second) Results of Blood Culture gram stain sent by a secure message and confirmed by DR VILLANUEVA on 10/04/232132 by RUBEN. Blood Culture (Second) Results of Blood Culture gram stain sent by a secure message and confirmed by DR VILLANUEVA on 10/04/232132 by RUBEN. Blood Culture (Second) Results of Blood Culture gram stain sent by a secure message and confirmed by DR VILLANUEVA on 10/04/23 at 2132 by RUBEN. Blood Culture (Second) Results of Blood Culture gram stain sent by a secure message and confirmed by DR VILLANUEVA on 10/04/232132 by RUBEN. Blood Culture (Second) Results of Blood Culture gram stain sent by a secure message and confirmed by DR VILLANUEVA on 10/04/232132 by RUBEN. Blood Culture (Second) BC Positive/Drawn Results of Blood Culture gram stain sent by a secure message and confirmed by DR VILLANUEVA on 10/04/23 at 2132 by RUBEN. Blood Culture (Second) 1 set positive/2 sets drawn Results of Blood Culture gram stain sent by a secure message and confirmed by DR VILLANUEVA on 10/04/232132 by RUBEN. Blood Culture (Second) GS - on external report Results of Blood Culture gram stain sent by a secure message and confirmed by DR VILLANUEVA on 10/04/23 at 2132 by RUBEN. Blood Culture (Second) Gram-positive andriy ci in clusters Results of Blood Culture gram stain sent by a secure message and confirmed by DR VILLANUEVA on 10/04/23 at 3 by RUBEN. Blood Culture (Second) Review Comment Results of Blood Culture gram stain sent by a secure message and confirmed by DR VILLANUEVA on 10/04/23 at 2132 by RUBEN. Blood Culture (Second) Gram stain review ed by a Manager Field Service Results of Blood Culture gram stain sent by a secure message and confirmed by DR VILLANUEVA on 10/04/23 at 2132 by RUBEN. O:STANEG Coag negative Staphylococcus Blood Culture (Second) CBLD STANEG comment Results of Blood Culture gram stain sent by a secure message and confirmed by DR VILLANUEVA on 10/04/23 at 2132 by RUBEN. Blood Culture (Second) Unlikely pathogen ; call Micro if full workup indicated. Results of Blood Culture gram stain sent by a secure message and confirmed by DR VILLANUEVA on 10/04/23 at 2132 by RUBEN. Complement C3 Reviewed date:10/06/2023 04:30:11 PM Interpretation:Normal Performing Lab:[address] [phone] Notes/Report: Complement C3 147 83-193 mg/dL THIS TEST WAS PERFORMED AT: [facility] [address] [place] [phone] MIGUEL STERN MD Complement C4 Reviewed date:10/06/2023 04:30:11 PM Interpretation:Normal Performing Lab:[facility], [address] [place] [phone] Notes/Report: Complement C4 20 15-57 mg/dL THIS TEST WAS PERFORMED AT: [facility] [address] [place] [phone] MIGUEL STERN MD Glucose, Whole Blood Reviewed date:10/06/2023 04:30:11 PM Interpretation:Abnormal Performing Lab:[facility], [address] [place] [phone] Notes/Report: Glucose, Whole Blood 167 60-115 mg/dL METER # : [id number] Glucose, Whole Blood Reviewed date:10/06/2023 09:53:01 PM Interpretation:Abnormal Performing Lab:[address] [phone] Notes/Report: Glucose, Whole Blood 150 60-115 mg/dL METER # : [id number] Vancomycin Random Reviewed date:10/06/2023 09:53:46 PM Interpretation:Subtherapeutic Performing Lab:[address] [phone] Notes/Report: Vancomycin Random 13.1 15-20 mcg/mL Glucose, Whole Blood Reviewed date:10/07/2023 09:06:02 AM Interpretation:Abnormal Performing Lab:[address] [phone] Notes/Report: Glucose, Whole Blood 123 60-115 mg/dL METER # : [id number] Complete Blood Count no Diff Reviewed date:10/07/2023 09:06:02 AM Interpretation:Abnormal Performing Lab:[address] [phone] Notes/Report: White Blood Count 14.6 4.8-10.8 X10*3/uL Red Blood Count 3.54 4.20-5.50 X10*6/uL Hemoglobin 10.8 12.0-16.0 g/dl Hematocrit 34.9 37.0-47.0 % Mean Corpuscular Volume 98.6 80.0-98.0 fL Mean Corpuscular Hemoglobin 30.5 27.0-33.0 pg Mean Corpuscular HGB Conc 30.9 31.0-35.0 g/dl Red Cell Distribution Width 16.6 11.0-16.0 % Platelet Count 226 160-400 X10*3/uL Mean Platelet Volume 9.9 9.4-12.3 fL NRBC Pct Auto 0.0 0.0-0.2 /100WBC NRBC Abs Auto 0.000 0.0-0.012 X10*3/uL Basic Metabolic Panel Fastin g Reviewed date:10/07/2023 09:06:02 AM Interpretation:Abnormal Performing Lab:[facility] [address] [phone] Notes/Report: Sodium 137 135-145 mmol/L Potassium 4.7 3.3-5.1 mmol/L Chloride 109 96-108 mmol/L Carbon Dioxide 22 22-29 mmol/L Anion Gap 11 12-20 Blood Urea Nitrogen 18 9-16 mg/dL Creatinine 1.44 0.5-1.4 mg/dL Creatinine Clr Calc Pharmacy 36.0 Provided height and weight: 162.56 cm, 89.358 kg. eGFR (calculated from the MDRD study equation) and eCrCl (calculated from the Cockcroft-Gault equation) are based on different parameters and may not yield comparable results. If eCrCl result is absurd, please check patient's height/weight. Estimated Glomerular Filt Rate 35 NOTE: For -Namibian individuals, multiply the result by 1.210. Chronic Kidney Disease: Estimated GFR < 60 mL/min/1.73m2 Severe Kidney Disease: Estimated GFR < 15 mL/min/1.73m2 Glucose Fasting 111 60-99 mg/dL A fasting glucose from 100-125 mg/dl is considered impaired (pre-diabetes). Calcium 8.4 8.4-10.2 mg/dL Glucose, Whole Blood Reviewed date:10/07/2023 12:18:24 PM Interpretation:Abnormal Performing Lab:[address] [phone] Notes/Report: Glucose, Whole Blood 119 60-115 mg/dL METER # : [id number] Glucose, Whole Blood Reviewed date:10/07/2023 04:23:31 PM Interpretation:Normal Performing Lab:[address] [phone] Notes/Report: Glucose, Whole Blood 115 60-115 mg/dL METER # : [id number] Glucose, Whole Blood Reviewed date:10/08/2023 10:02:02 AM Interpretation:Abnormal Performing Lab:[address] [phone] Notes/Report: Glucose, Whole Blood 154 60-115 mg/dL METER # : [id number] Basic Metabolic Panel Fastin g Reviewed date:10/08/2023 10:02:02 AM Interpretation:Abnormal Performing Lab:[address], [place] [address] Notes/Report: PT with nurse. Will come back @ 06:03 caronm Sodium 135 135-145 mmol/L Potassium 4.1 3.3-5.1 mmol/L Chloride 107 96-108 mmol/L Carbon Dioxide 18 22-29 mmol/L Anion Gap 14 12-20 Blood Urea Nitrogen 18 9-16 mg/dL Creatinine 1.55 0.5-1.4 mg/dL Creatinine Clr Calc Pharmacy 33.4 Provided height and weight: 162.56 cm, 89.358 kg. eGFR (calculated from the MDRD study equation) and eCrCl (calculated from the Cockcroft-Gault equation) are based on different parameters and may not yield comparable results. If eCrCl result is absurd, please check patient's height/weight. Estimated Glomerular Filt Rate 33 NOTE: For -Namibian individuals, multiply the result by 1.210. Chronic Kidney Disease: Estimated GFR < 60 mL/min/1.73m2 Severe Kidney Disease: Estimated GFR < 15 mL/min/1.73m2 Glucose Fasting 102 60-99 mg/dL A fasting glucose from 100-125 mg/dl is considered impaired (pre-diabetes). Calcium 8.3 8.4-10.2 mg/dL Magnesium Reviewed date:10/08/2023 10:02:02 AM Interpretation:Normal Performing Lab:[facility], [address] [place] [phone] Notes/Report: PT with nurse. Will come back @ 06:03 caronm Magnesium 1.7 1.6-2.6 mg/dL Complete Blood Count no Diff Reviewed date:10/08/2023 10:02:02 AM Interpretation:Abnormal Performing Lab:[facility], [address] [place] [phone] Notes/Report: PT with nurse. Will come back @ 06:03 caronm White Blood Count 18.3 4.8-10.8 X10*3/uL Red Blood Count 3.20 4.20-5.50 X10*6/uL Hemoglobin 10.0 12.0-16.0 g/dl Hematocrit 30.9 37.0-47.0 % Mean Corpuscular Volume 96.6 80.0-98.0 fL Mean Corpuscular Hemoglobin 31.3 27.0-33.0 pg Mean Corpuscular HGB Conc 32.4 31.0-35.0 g/dl Red Cell Distribution Width 17.0 11.0-16.0 % Platelet Count 247 160-400 X10*3/uL Mean Platelet Volume 9.6 9.4-12.3 fL NRBC Pct Auto 0.2 0.0-0.2 /100WBC NRBC Abs Auto 0.030 0.0-0.012 X10*3/uL Glucose, Whole Blood Reviewed date:10/08/2023 10:02:02 AM Interpretation:Normal Performing Lab:[facility], [address] [place] [phone] Notes/Report: Glucose, Whole Blood 95 60-115 mg/dL METER # : [id number] Glucose, Whole Blood Reviewed date:10/09/2023 09:27:19 AM Interpretation:Abnormal Performing Lab:[facility], [address] [place] [phone] Notes/Report: Glucose, Whole Blood 142 60-115 mg/dL METER # : [id number] Glucose, Whole Blood Reviewed date:10/09/2023 09:27:19 AM Interpretation:Abnormal Performing Lab:[facility], [address] [place] [phone] Notes/Report: Glucose, Whole Blood 136 60-115 mg/dL METER # : [id number] Glucose, Whole Blood Reviewed date:10/09/2023 09:27:19 AM Interpretation:Abnormal Performing Lab:[facility], [address] [place] [phone] Notes/Report: Glucose, Whole Blood 154 60-115 mg/dL METER # : [id number] Blood Culture (First) Reviewed date:10/09/2023 09:27:19 AM Interpretation:Negative Performing Lab:[facility], [address] [place] [phone] Notes/Report: Blood Culture (First) No growth after 5 days. Glucose, Whole Blood Reviewed date:10/09/2023 09:27:19 AM Interpretation:Abnormal Performing Lab:[facility], [address] [place] [phone] Notes/Report: Glucose, Whole Blood 119 60-115 mg/dL METER # : [id number] Complete Blood Count no Diff Reviewed date:10/09/2023 09:27:19 AM Interpretation:Abnormal Performing Lab:[address] [address] Notes/Report: White Blood Count 13.5 4.8-10.8 X10*3/uL Red Blood Count 2.79 4.20-5.50 X10*6/uL Hemoglobin 8.8 12.0-16.0 g/dl Hematocrit 27.3 37.0-47.0 % Mean Corpuscular Volume 97.8 80.0-98.0 fL Mean Corpuscular Hemoglobin 31.5 27.0-33.0 pg Mean Corpuscular HGB Conc 32.2 31.0-35.0 g/dl Red Cell Distribution Width 16.8 11.0-16.0 % Platelet Count 202 160-400 X10*3/uL Mean Platelet Volume 9.6 9.4-12.3 fL NRBC Pct Auto 0.1 0.0-0.2 /100WBC NRBC Abs Auto 0.020 0.0-0.012 X10*3/uL Basic Metabolic Panel Fastin g Reviewed date:10/09/2023 09:27:19 AM Interpretation:Abnormal Performing Lab:[facility], [address] [place] [phone] Notes/Report: Sodium 134 135-145 mmol/L Potassium 3.6 3.3-5.1 mmol/L Chloride 105 96-108 mmol/L Carbon Dioxide 20 22-29 mmol/L Anion Gap 13 12-20 Blood Urea Nitrogen 15 9-16 mg/dL Creatinine 1.35 0.5-1.4 mg/dL Creatinine Clr Calc Pharmacy 38.3 Provided height and weight: 162.56 cm, 89.358 kg. eGFR (calculated from the MDRD study equation) and eCrCl (calculated from the Cockcroft-Gault equation) are based on different parameters and may not yield comparable results. If eCrCl result is absurd, please check patient's height/weight. Estimated Glomerular Filt Rate 38 NOTE: For -Namibian individuals, multiply the result by 1.210. Chronic Kidney Disease: Estimated GFR < 60 mL/min/1.73m2 Severe Kidney Disease: Estimated GFR < 15 mL/min/1.73m2 Glucose Fasting 126 60-99 mg/dL A fasting glucose of 126 mg/dl or greater on more than one occasion is considered diagnostic of diabetes. Calcium 8.1 8.4-10.2 mg/dL Glucose, Whole Blood Reviewed date:10/09/2023 06:04:03 PM Interpretation:Abnormal Performing Lab:[facility], [address] [place] [phone] Notes/Report: Glucose, Whole Blood 151 60-115 mg/dL METER # : [id number] Glucose, Whole Blood Reviewed date:10/09/2023 06:03:42 PM Interpretation:Abnormal Performing Lab:[facility], [address] [place] [phone] Notes/Report: Glucose, Whole Blood 151 60-115 mg/dL METER # : [id number] Glucose, Whole Blood Reviewed date:10/10/2023 10:54:27 AM Interpretation:Abnormal Performing Lab:[facility], [address] [place] [phone] Notes/Report: Glucose, Whole Blood 156 60-115 mg/dL METER # : [id number] Glucose, Whole Blood Reviewed date:10/10/2023 10:54:27 AM Interpretation:Abnormal Performing Lab:[facility], [address] [place] [phone] Notes/Report: Glucose, Whole Blood 152 60-115 mg/dL METER # : [id number] Glucose, Whole Blood Reviewed date:10/10/2023 12:24:10 PM Interpretation:Abnormal Performing Lab:[facility], [address] [place] [phone] Notes/Report: Glucose, Whole Blood 170 60-115 mg/dL METER # : [id number] Glucose, Whole Blood Reviewed date:10/10/2023 07:37:21 PM Interpretation:Abnormal Performing Lab:[facility], [address] [place] [phone] Notes/Report: Glucose, Whole Blood 146 60-115 mg/dL METER # : [id number] Glucose, Whole Blood Reviewed date:10/10/2023 09:13:04 PM Interpretation:Abnormal Performing Lab:[facility], [address] [place] [phone] Notes/Report: Glucose, Whole Blood 180 60-115 mg/dL METER # : [id number] Glucose, Whole Blood Reviewed date:10/11/2023 09:07:30 AM Interpretation:Normal Performing Lab:[facility], [address] [place] [phone] Notes/Report: Glucose, Whole Blood 104 60-115 mg/dL METER # : [id number] Glucose, Whole Blood Reviewed date:10/11/2023 11:43:46 AM Interpretation:Abnormal Performing Lab:[facility], [address] [place] [phone] Notes/Report: Glucose, Whole Blood 206 60-115 mg/dL METER # : [id number] Pathology Reviewed date:10/12/2023 10:47:27 AM Interpretation:Benign Performing Lab:[facility], [address] [place] [phone] Notes/Report: Immunofixation Pnl, Serum Reviewed date:10/13/2023 10:11:48 PM Interpretation:Abnormal Performing Lab:[facility], [address] [place] [phone] Notes/Report: IgG 1706 475-5244 mg/dL IgA 415 70-320 mg/dL IgM 98 50-300 mg/dL THIS TEST WAS PERFORMED AT: [facility] [address] [place] [phone] MIGUEL STERN MD Immunofixation Interpretation SEE NOTE No monoclonal protei ns detected. Anti Glomerular Basement Mem b Reviewed date:10/13/2023 10:11:17 PM Interpretation:Negative Performing Lab:[facility], [address] [place] [phone] Notes/Report: Anti Glomerular Basement Memb <1.0 Value Interpretation ----- <1.0 No Antibody Detected > or = 1.0 Antibody Detected THIS TEST WAS PERFORMED AT: [facility] [address] [place] [phone] MIGUEL STERN MD ANCA Vasculitides Reviewed date:10/13/2023 10:10:44 PM Interpretation:Negative Performing Lab:[facility], [address] [place] [phone] Notes/Report: Myeloperoxidase Antibody <1.0 Value Interpretation ----- <1.0 No Antibody Detected > or = 1.0 Antibody Detected Autoantibodies to myeloperoxidase (MPO) are commonly associated with the following small-vessel vasculitides: microscopic polyangiitis, polyarteritis nodosa, Churg-Mike syndrome, necrotizing and crescentic glomerulonephritis and occasionally granulomatosis with polyangiitis (GPA, Shirley's). The perinuclear IFA pattern, (p-ANCA) is based largely on autoantibody to myeloperoxidase which serves as the primary antigen. These autoantibodies are present in active disease. Proteinase 3 PR3 Antibodies <1.0 Value Interpretation ----- <1.0 No Antibody Detected > or = 1.0 Antibody Detected Autoantibodies to proteinase-3 (WV-3) are accepted as characteristic for granulomatosis with polyangiitis (GPA, Shirley's), and are detectable in 95% of the histologically proven cases. The cytoplasmic IFA pattern, (c-ANCA), is based largely on autoantibody to WV-3 which serves as the primary antigen. These autoantibodies are present in active disease. THIS TEST WAS PERFORMED AT: [facility] [address] [address] MIGUEL STERN MD Complete Blood Count Auto Di ff Reviewed date:12/09/2023 02:19:18 PM Interpretation:Abnormal Performing Lab:[facility], [address] [place] [phone] Notes/Report: White Blood Count 10.0 4.8-10.8 X10*3/uL Red Blood Count 3.87 4.20-5.50 X10*6/uL Hemoglobin 10.3 12.0-16.0 g/dl Hematocrit 33.7 37.0-47.0 % Mean Corpuscular Volume 87.1 80.0-98.0 fL Mean Corpuscular Hemoglobin 26.6 27.0-33.0 pg Mean Corpuscular HGB Conc 30.6 31.0-35.0 g/dl Red Cell Distribution Width 15.2 11.0-16.0 % Platelet Count 267 160-400 X10*3/uL Mean Platelet Volume 9.6 9.4-12.3 fL Neutrophils Percent Auto 75.2 45-73 % Imm Gran Pct Auto 0.9 0.0-0.4 % Lymphocytes Percent Auto 16.0 20-40 % Monocytes Percent Auto 6.5 2-11 % Eosinophils Percent Auto 1.0 0-4 % Basophils Percent Auto 0.4 0-2 % NRBC Pct Auto 0.0 0.0-0.2 /100WBC Neutrophils Absolute Auto 7.6 2.0-8.3 x10*3/uL Imm Gran Abs Auto 0.09 0.00-0.03 X10*3/uL Lymphocytes Absolute Auto 1.6 1.2-4.9 X10*3/uL Monocytes Absolute Auto 0.7 0.1-1.2 X10*3/uL Eosinophils Absolute Auto 0.1 0.0-0.4 X10*3/uL Basophils Absolute Auto 0.0 0.0-0.2 X10*3/uL NRBC Abs Auto 0.000 0.0-0.012 X10*3/uL Hemoglobin A1c Reviewed date:12/09/2023 02:19:02 PM Interpretation:Normal Performing Lab:[address] [phone] Notes/Report: Hemoglobin A1c % 5.4 <6.0 % Hemoglobin A1C Reference Range Adults: 4.8 - 6.0 % Non diabetic: < 6.0 % Goal: < 7.0 % Additional Action Suggested: > 8.0 % Note: Hemoglobin A1c results are invalid for patients with abnormal amounts of HbF. Blood transfusions may impact the HbA1c concentration in the patient sample. Estimated Average Glucose 108 eAG = Estimated average glucose which is %A1C expressed as average glucose, using the formula of the [id number] Average Glucose study (ADAG), Diabetes Care, Vol.31,#8, 2007 Comprehensive [place]. Panel Fa st Reviewed date:12/09/2023 03:47:51 PM Interpretation:Abnormal Performing Lab:[facility], [address] [place] [phone] Notes/Report: Sodium 137 135-145 mmol/L Potassium 4.1 3.3-5.1 mmol/L Chloride 106 96-108 mmol/L Carbon Dioxide 19 22-29 mmol/L Anion Gap 16 12-20 Blood Urea Nitrogen 16 9-16 mg/dL Creatinine 1.16 0.5-1.4 mg/dL Estimated Glomerular Filt Rate 45 NOTE: For -Namibian individuals, multiply the result by 1.210. Chronic Kidney Disease: Estimated GFR < 60 mL/min/1.73m2 Severe Kidney Disease: Estimated GFR < 15 mL/min/1.73m2 Glucose Fasting 136 60-99 mg/dL A fasting glucose of 126 mg/dl or greater on more than one occasion is considered diagnostic of diabetes. Calcium 9.1 8.4-10.2 mg/dL Bilirubin Total 0.7 0.0-1.0 mg/dL Aspartate Amino Transferase 41 5-31 U/L Alanine Aminotransferase 21 0-31 U/L Total Protein 7.8 6.5-8.0 g/dL Albumin Level 3.5 3.5-5.0 g/dL Alkaline Phosphatase 59 39-117 U/L IRON PROFILE Reviewed date:12/09/2023 03:47:51 PM Interpretation:Abnormal Performing Lab:[address] [phone] Notes/Report: Iron 25 30-160 mcg/dL Total Iron Binding Capacity 191 228-428 mcg/dL Percent Iron Saturation 13 15-50 % Unsaturated Iron Binding 166 Ferritin Reviewed date:12/09/2023 03:47:51 PM Interpretation:Normal Performing Lab:[address] [address] Notes/Report: Ferritin 79 10-250 ng/mL Lipid Panel Reviewed date:12/09/2023 03:47:51 PM Interpretation:Normal Performing Lab:[address] [address] Notes/Report: Triglycerides 88 <150 mg/dL Desirable Triglyceride: less than 150 mg/dL Borderline High Triglyceride 150-199 mg/dL High Triglyceride: 200-499 mg/dL Very High Triglyceride: greater than or equal to 5OO mg/dL Cholesterol 113 <200 mg/dL Desirable Cholesterol: less than 200 mg/dL Borderline High Cholesterol: 200-239 mg/dL High Cholesterol: greater than 239 mg/dL LDL Cholesterol Calculated 51 <100 mg/dL Desirable LDL: less than 100 mg/dL Near Optimal/Above Optimal LDL: 110-129 mg/dL Borderline High LDL: 130-159 mg/dL High LDL: 160-189 mg/dL Very High LDL: greater than or equal to 190 mg/dL HDL Cholesterol 45 >40 mg/dL Desirable HDL: greater than 40 mg/dL Note: This HDL assay may give artificially low results in patients with liver disease. Vitamin D 25-OH Total Reviewed date:12/09/2023 03:47:51 PM Interpretation:Abnormal Performing Lab:[facility], [address] [place] [phone] Notes/Report: Vitamin D 25-OH Total 23.4 >30 ng/mL Health Based Reference Values* < 20 ng/mL Deficient 20-30 ng/mL Insufficient > 30 ng/mL Sufficient *Bear HUI. N Engl J Med. 2007;357:266-280 Care must be taken in interpreting Vitamin D results from different laboratories and methodologies. Published data demonstrated that results from patients undergoing hemodialysis may show a negative bias when tested with various automated 25-OH vitamin D assays when compared to LC-MS/MS. When testing samples from patients whose predominant form of Vitamin D is Vitamin D2, such as patients receiving Vitamin D2 supplementation, results that are subtherapeutic should be confirmed with another method such as LC-MS/MS. Thyroid Stimulating Hormone Reviewed date:12/09/2023 03:47:51 PM Interpretation:Normal Performing Lab:[facility], [address] [place] [phone] Notes/Report: Thyroid Stimulating Hormone 2.91 0.32-4.0 uIU/mL Note: A sustained TSH level above 2.5 uIU/mL may warrant further investigation. TSH 3rd Generation ([facility]) XR chest 2V Reviewed date:04/24/2023 06:36:25 PM Interpretation:Normal Performing Lab: Notes/Report: [address] [place] [address] XRay Report Signed Patient: Xi Garrison MR#: [id number] [birth year] : 1945 Acct:[id number] Age/Sex: 78 / F ADM Date: 04/24/23 Loc: HO.ED Attending Dr: Ordering Physician: Silvia Iyer NP Date of Service: 04/24/23 Procedure(s): XR chest 2V Accession Number(s): [id number] cc: Preston Wang DO; Silvia Iyer NP EXAMINATION: XR CHEST CLINICAL INFORMATION: Reason for Exam chest pain COMPARISON: Chest radiograph 06/28/2016 TECHNIQUE: 2 views of the chest FINDINGS: Lines and tubes: None. Clear lungs. No pleural effusion. No pneumothorax. Unchanged cardiomediastinal silhouette. XR/XR chest 2V IMPRESSION: * Clear lungs. Dictated By: Lilian Tamez MD Signed By: <Electronically signed by Lilian Tamez MD in [facility]> 04/24/23 1610 DD/ 1547 TD/TT: Occupational Health Nurse Supervisor: CT chest w con Reviewed date:04/25/2023 01:09:24 PM Interpretation:Abnormal Performing Lab: Notes/Report: [address] [address] [address] Scan Report Signed Patient: Xi Garrison MR#: [id number] [birth year] : 1945 Acct:[id number] Age/Sex: 78 / F ADM Date: 04/24/23 Loc: .ED Attending Dr: Ordering Physician: Kwasi Jett Date of Service: 04/24/23 Procedure(s): CT chest w IV con Accession Number(s): [id number] cc: Kwasi Jett; Preston Wang DO EXAMINATION: CT CHEST WITH CONTRAST CLINICAL INFORMATION: Pneumonia. Fever COMPARISON: Chest x-ray earlier same day TECHNIQUE: Multidetector volumetric CT imaging of the chest was obtained after the administration of 85 mL of Omnipaque 350 intravenous contrast without immediate adverse reactions. Axial MIP volume rendering provided. Sagittal and coronal reformatted images were obtained. This CT examination was performed using dose optimization techniques as appropriate, variously including the following: *Automated exposure control *Adjustment of mA and/or kV according to patient size (this includes techniques or standardized protocols for targeted exams where dose is matched to indication/reason for exam; i.e. extremities or head) *Use of iterative reconstruction technique DLP: 408 mGy-cm FINDINGS: HOUSING COURT JUDGE: No consolidation or edema. LUNGS: No abnormality the trachea or mainstem bronchi. No focal pneumonia or generalized edema. Scattered micronodules all of which measure less than 0.4 cm. In a low risk patient this does not require any further evaluation. MEDIASTINUM: No enlarged mediastinal or hilar lymph nodes. No suspicious abnormality esophagus. There is mild coronary calcification. There is some calcification of the mitral annulus in the region of the aortic valve. The main pulmonary arteries are normal caliber. There is no significant pericardial fluid. PLEURA: There is no pleural effusion. No pleural mass or thickening. AXILLA: No lymphadenopathy. UPPER ABDOMEN: Possible slight nodularity of the liver contour. The abdomen is reported upon separately. OSSEOUS STRUCTURES: No suspicious focal lesion. Bridging osteophytes or syndesmophytes resulting in a rigid thoracic spine. CT/CT chest w IV con IMPRESSION: No focal pneumonia or edema. Scattered micronodules. In a low risk patient this does not require specific imaging follow-up Fleischner guidelines were followed. Dictated By: Arias Sands MD Signed By: <Electronically signed by Arias Sands MD in OV> 04/24/232217 DD/ 33 TD/TT: Occupational Health Nurse Supervisor: JENY CT abdomen pelvis w con Reviewed date:04/25/2023 01:40:17 PM Interpretation:Abnormal Performing Lab: Notes/Report: [address] [address] [address] Scan Report Signed Patient: Xi Garrison MR#: [id number] 92 : 1945 Acct:[id number] Age/Sex: 78 / F ADM Date: 04/24/23 Loc: HO.ED Attending Dr: Ordering Physician: Kwasi Jett Date of Service: 04/24/23 Procedure(s): CT abdomen pelvis w IV con Accession Number(s): [id number] cc: Kwasi Jett; Preston Wang DO EXAMINATION: CT ABDOMEN AND PELVIS WITH CONTRAST CLINICAL INFORMATION: Evaluate for renal abscess. COMPARISON: Portions of a previous study 04/04/23 TECHNIQUE: Multidetector volumetric images were obtained from the superior aspect of the liver through the pubic symphysis following administration 85 mL of Omnipaque 350 intravenous contrast. Sagittal and coronal reformatted images were obtained on the technologist's workstation. Oral contrast: No This CT examination was performed using dose optimization techniques as appropriate, variously including the following: *Automated exposure control *Adjustment of mA and/or kV according to patient size (this includes techniques or standardized protocols for targeted exams where dose is matched to indication/reason for exam; i.e. extremities or head) *Use of iterative reconstruction technique DLP: 812 mGy-cm FINDINGS: LUNG BASES: The chest is reported upon separately. Small nodular densities in left breast are nonspecific. LIVER, GALLBLADDER, AND BILIARY TREE: The liver has a micronodular contour. There is fatty change. No suspicious focal liver lesion. There are large gallstones present. The gallbladder is mildly distended. PANCREAS: No definite pancreatic mass. SPLEEN: Within normal limits ADRENAL GLANDS: Within normal limits KIDNEYS AND URETERS: There are some tiny probable cysts in the left kidney. The left nephrogram is homogeneous. There are several nonobstructing lower pole left renal calculi approximately 14.3 cm from the skin. The right renal contour is irregular. There are areas of scarring. There may be a partial staghorn calculus in the lower pole collecting system. There is a confluent 1.9 cm calculus in the mid right kidney 14.2 cm from the skin. Additional calcifications in the interpolar and lower pole collecting systems. There is a fairly circumscribed low attenuating 2.1 cm collection adjacent to the lower pole of the right kidney. There is some adjacent stranding. This is not significantly changed. There is some low attenuation within the right psoas. There is a tract extending from the lower pole kidney through the region of the fluid collection through the retroperitoneum and into the right flank soft tissues likely extending to the skin. This likely represents a tract from previous percutaneous access. There is an upper pole cyst which does not require any further evaluation. BLADDER: No definite focal bladder abnormality. There are indistinct tissue planes between the sigmoid and the dome of the bladder. No definite gas within the bladder. GASTROINTESTINAL TRACT: There is wall thickening with luminal narrowing in the sigmoid colon. There is irregular thickening and some surrounding stranding. As described this is inseparable from the bladder and vaginal fornices. There is some surrounding stranding. The stomach is collapsed. No small bowel dilation. ABDOMINAL WALL: There is a fat-containing ventral abdominal wall hernia LYMPH NODES: No measurably enlarged lymph nodes. No free intraperitoneal fluid VASCULAR: There is no abdominal aortic aneurysm. The portal vein enhances. PELVIC VISCERA: The uterus is not demonstrated. As described there is indistinct tissue planes between the sigmoid colon, vaginal fornices and bladder. OSSEOUS STRUCTURES: Marked degenerative change in the spine. CT/CT abdomen pelvis w IV con IMPRESSION: There is an abnormality in the sigmoid colon with irregular wall thickening and surrounding stranding. Indistinct tissue planes between the vaginal fornix, bladder and colon. Recommend endoscopic assessment. Malignancy is not excluded. There is an unchanged collection adjacent to the lower right kidney. Moderate to marked stone burden greater on the right kidney than left. There is a tract from the kidney through the right flank soft tissues to the skin. There is some abnormal attenuation in the right psoas. No large undrained collection. Micronodular liver contour suggests underlying chronic liver disease. Fleischner guidelines were followed. Dictated By: Arias Sands MD Signed By: <Electronically signed by Arias Sands MD in [place]> 04/24/232228 DD/ 33 TD/TT: Occupational Health Nurse Supervisor: JENY SHAVER guidance in OR Reviewed date:04/27/2023 05:19:45 PM Interpretation:Abnormal Performing Lab: Notes/Report: [address] [address] Fluoroscopy Report Signed Patient: Xi Garrison MR#: [id number] 92 : 1945 Acct:[id number] Age/Sex: 78 / F ADM Date: 04/25/23 Loc: .S3 350-[address]: Clint Webb MD Ordering Physician: Jose Reis MD Date of Service: 04/25/23 Procedure(s): CHHAYA guidance in OR Accession Number(s): [id number] cc: Jose Reis MD; Preston Wang DO EXAMINATION: XR FLUOROSCOPY WITH IMAGES CLINICAL INFORMATION: Right-sided retrograde urethrogram and stent placement COMPARISON: CT abdomen from 04/24/2023 TECHNIQUE: Fluoroscopy Supervised By: Gilbert Heath. Fluoroscopy Time: 0 minutes 50 seconds. Cumulative Dose: 630.924 mGy. DAP: 862.5 Gycm2. Images: 4. FINDINGS: There is retrograde urethrogram and placement of right ureteral stent. Multiple stones seen in the lower segment of the right kidney FL/FL guidance in OR IMPRESSION: Successful placement of right ureteral stent Dictated By: Leno Krishnan MD Signed By: <Electronically signed by Leno Krishnan MD in [place]> 04/27/231641 DD/ 29 TD/TT: Occupational Health Nurse Supervisor: FL fistula/abscess/sinus tra ct Reviewed date:04/28/2023 04:07:35 PM Interpretation:Abnormal Performing Lab: Notes/Report: [address] [address] Fluoroscopy Report Signed Patient: Xi Garrison MR#: [id number] 92 : 1945 Acct:[id number] Age/Sex: 78 / F ADM Date: 04/25/23 Loc: [facility] 350-[address]: Clint Webb MD Ordering Physician: Gilbert Heath Date of Service: 04/27/23 Procedure(s): FL fistula/abscess/sinus tract Accession Number(s): [id number] cc: Preston Wang DO; Gilbert Heath EXAMINATION: FL SINUS TRACT INJECTION CLINICAL INFORMATION: 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 Patient underwent subsequent for percutaneous drainage. Using continues to have drainage from the old drainage catheter site. COMPARISON: CT scan 04/24/2023 TECHNIQUE: 50 mL of Omnipaque 300 was injected through a 6 [place] dilator through the open right flank wound. Spot images were performed FINDINGS: A right ureteral stent is present. Contrast is observed tracking through the abdominal wall and into the right retroperitoneal abscess cavity. No communication with the right kidney or collecting system, nor ureter. Contrast then tracks down the right iliopsoas muscle, possibly in the region of bursitis. It does not progress beyond the superior acetabulum. FL/FL fistula/abscess/sinus tract IMPRESSION: 1. Fistulous tract between the skin and the right retroperitoneal abscess cavity. There is no direct fistula to the right kidney, collecting system, or ureter. The contrast then tracks down to the right along the iliopsoas bursa. 2. Right ureteral stent present. This procedure was performed by Gilbert Heath PA-C, and supervised by Dr. Otto Dictated By: Gilbert Heath Signed By: <Electronically signed by Gilbert Heath in OV> 04/28/231119 <Electronically signed by Adrian Otto MD in OV> 04/28/231122 DD/ 142 TD/TT: Occupational Health Nurse Supervisor: XR toe LT min 2V Reviewed date:08/14/2023 11:39:48 AM Interpretation:Abnormal Performing Lab: Notes/Report: [address] [address] XRay Report Signed Patient: Xi Garrison MR#: [id number] 92 : 1945 Acct:[id number] Age/Sex: 78 / F ADM Date: 08/13/23 Loc: .ED Attending Dr: Ordering Physician: Ayesha Roberson Date of Service: 08/13/23 Procedure(s): XR toe LT min 2V Accession Number(s): [id number] cc: Preston Wang DO; Ayesha Roberson EXAMINATION: XR TOES, LEFT CLINICAL INFORMATION: Great toe injury COMPARISON: Left first toe 07/14/2022 TECHNIQUE: 3 views of the left toes were obtained. FINDINGS: Again seen is a fracture involving the distal phalanx of the first great toe. On the study from just over one year ago, a similar fracture but this appears more complex on the current study with an additional transverse fracture closer to the base of the phalanx. There is no significant evidence of healing. Findings may indicate associated osteomyelitis. XR/XR toe LT min 2V IMPRESSION: Chronic fracture distal phalanx of the first great toe with new additional horizontal component without evidence of significant interval healing over the past year. Findings may indicate associated osteomyelitis. MRI may be helpful for further evaluation. Dictated By: Hansel Rodriguez MD Signed By: <Electronically signed by Hansel Rodriguez MD in [place]> 08/13/232030 DD/ 31 TD/TT: Occupational Health Nurse Supervisor: SS MR foot LT wo con Reviewed date:08/24/2023 11:48:47 AM Interpretation:Abnormal Performing Lab: Notes/Report: [address] [address] Magnetic Resonance Report Signed Patient: Xi Garrison MR#: [id number] 92 : 1945 Acct:[id number] Age/Sex: 78 / F ADM Date: 08/19/23 Loc: HO.MRI Attending Dr: Preston Wang DO Ordering Physician: Preston Wang DO Date of Service: 08/19/23 Procedure(s): MR foot LT wo con Accession Number(s): [id number] cc: Preston Wang DO EXAMINATION: MR FOOT WITHOUT CONTRAST, LEFT CLINICAL INFORMATION: Left great toe injury with persistent pain. Instability. Pain with ambulation. Numbness. COMPARISON: Left toe radiographs dated 08/13/2023. TECHNIQUE: Multisequence MR imaging of the right foot was obtained without contrast on a high-field strength scanner. Patient declined contrast administration. FINDINGS: Evaluation limited secondary to patient motion. BONE: Bone detail somewhat limited on MR examination and due to patient motion. There appears to be a chronic, nonfused fracture proximally through the first distal phalanx with an immediately adjacent and slightly more distal acute, transverse fracture through the first distal phalanx. Associated marrow edema. Findings correlate to the most recent radiographs. No additional marrow edema or evidence of acute osseous injury. No metatarsal stress reaction or fracture. No concerning lytic or blastic osseous. MUSCLES/TENDONS: Mild edema and atrophy within the intrinsic musculature of the foot. No transverse tendon tear or tendon retraction. LIGAMENTS: Intact Lisfranc ligament. SOFT TISSUES: Dorsal subcutaneous edema. No soft tissue mass or organized fluid collection. MR/MR foot LT wo con IMPRESSION: 1. Chronic, nonfused fracture through the proximal aspect of the first distal phalanx with an immediately adjacent and slightly more distal acute, transverse fracture through the first distal phalanx. Associated marrow edema. Evaluation is somewhat limited secondary to patient motion and CT could help further define bone detail if clinically indicated. 2. Mild edema and atrophy within the intrinsic musculature of the foot. 3. Dorsal subcutaneous edema. Dictated By: Khanh Roblero MD Signed By: <Electronically signed by Khanh Roblero MD in [place]> 08/24/23 1136 DD/ 1125 TD/TT: Occupational Health Nurse Supervisor: CT abdomen pelvis wo con Reviewed date:10/04/2023 01:24:30 PM Interpretation:Abnormal Performing Lab: Notes/Report: [address] [address] [address] Scan Report Signed Patient: Xi Garrison MR#: [id number] 92 : 1945 Acct:[id number] Age/Sex: 78 / F ADM Date: 10/03/23 Loc: HO.ED Attending Dr: Ordering Physician: Tiffany Sanches CNP Date of Service: 10/03/23 Procedure(s): CT abdomen pelvis wo IV con Accession Number(s): [id number] cc: Tiffany Sanches CNP; Preston Wang DO EXAMINATION: CT ABDOMEN AND PELVIS WITHOUT CONTRAST CLINICAL INFORMATION: Reason for Exam umbilical pain, n/v/d, +UTI/micro heme COMPARISON: 04/24/2023 TECHNIQUE: Multidetector volumetric imaging was performed from the superior aspect of the liver through the pubic symphysis. Sagittal and coronal reformatted images were obtained on the technologist's workstation. This CT examination was performed using dose optimization techniques as appropriate, variously including the following: *Automated exposure control *Adjustment of mA and/or kV according to patient size (this includes techniques or standardized protocols for targeted exams where dose is matched to indication/reason for exam; i.e. extremities or head) *Use of iterative reconstruction technique DLP: 779 mGy-cm FINDINGS: LUNG BASES: The visualized lung bases are unremarkable. LIVER, GALLBLADDER, AND BILIARY TREE: The unenhanced liver demonstrates a nodular contour suspicious for cirrhosis. There is inadequate assessment for focal lesions without intravenous contrast. No appreciable biliary ductal dilatation. Gallbladder is physiologically distended. Proximal gallstones are noted. No appreciable gallbladder wall thickening or surrounding inflammation. PANCREAS: Mildly atrophic. SPLEEN: Unremarkable. ADRENAL GLANDS: Unremarkable. KIDNEYS AND URETERS: Right ureteral stent is present extending from the mid renal calyx to the bladder. No right-sided hydronephrosis. There are numerous scattered calculi within the right renal calyces and pelvis, measuring up to approximately 11 mm in diameter. Right upper pole renal cysts; no follow-up recommended. Previously identified fluid collections inferior to the right kidney on 04/24/2023 now appear collapsed. No left-sided hydronephrosis or calculus. A few left lower pole renal calculi are present measuring up to 5 mm. BLADDER: Minimally distended and not well evaluated. GASTROINTESTINAL TRACT: There is a short segment of luminal narrowing in the distal sigmoid colon with surrounding stranding. Proximal to this, the remainder of the colon is moderately distended with gas and stool. Overall configuration is suspicious for a colonic obstruction which could be secondary to postinflammatory stricturing though a mass cannot be excluded. Trace free fluid in the lower abdomen. No free air is seen. ABDOMINAL WALL: Fat-containing umbilical hernia. LYMPH NODES: Normal. VASCULAR: Moderate atherosclerotic calcification. PELVIC VISCERA: Patient is status post hysterectomy. OSSEOUS STRUCTURES: Degenerative changes are noted in the spine. CT/CT abdomen pelvis wo IV con IMPRESSION: 1. Short segment of luminal narrowing in the distal sigmoid colon with surrounding stranding. Appearance is suspicious for a colonic obstruction which could be secondary to postinflammatory stricturing though a mass cannot be excluded. If not recently performed, further evaluation with colonoscopy is recommended. 2. Right ureteral stent in place. Numerous scattered right renal calculi. No hydronephrosis. 3. Cholelithiasis. 4. Nodular hepatic contour suspicious for cirrhosis. Electronically signed by: Avel Atwood MD 10/04/2023 01:44 AM EDT Dictated By: Avel Atwood MD Signed By: <Electronically signed by Avel Atwood MD in [place]> 10/04/23 0144 DD/ 08 TD/TT: 10/03/23 2319 Occupational Health Nurse Supervisor: MEGHAN renal BI Reviewed date:10/05/2023 12:44:32 PM Interpretation:Abnormal Performing Lab: Notes/Report: [address] [address] Ultrasound Report Signed Patient: Xi Garrison MR#: [id number] 92 : 1945 Acct:[id number] Age/Sex: 78 / F ADM Date: 10/04/23 Loc: . 350-[address]: Clint Webb MD Ordering Physician: Clint Webb MD Date of Service: 10/04/23 Procedure(s): US renal BI Accession Number(s): [id number] cc: Preston Wang DO; Clint Webb MD EXAMINATION: US RETROPERITONEAL COMPLETE (RENAL) CLINICAL INFORMATION: Acute kidney injury. COMPARISON: CT abdomen pelvis 10/03/2023. TECHNIQUE: Real-time imaging of the kidneys and bladder. FINDINGS: The right kidney measures 9.67 x 4.37 x 3.6 cm. Multiple echogenic foci consistent with renal calculi are present and correspond to findings on the comparison CT. Findings include the following: *Upper pole calculus 0.67 x 0.4 cm 0.5 cm. *Midpole calculus 1.3 cm x 0.7 x 1.17. *Lower pole calculus 1.7 cm x 1.37 x 1.4 cm. *Lower pole calculus 1.16 x 0.97 x 1.3 cm. A benign-appearing 2.4 cm rounded anechoic simple cyst requiring no additional imaging follow-up is additionally noted. No right-sided hydronephrosis visualized. No right-sided perinephric inflammatory changes or perinephric fluid collections identified. Grossly no abnormal color Doppler interrogation of the right kidney. Normal renal parenchymal echogenicity. The left kidney measures 10.6 cm x 4.9 cm x 3.4 cm. No left-sided hydronephrosis. Multiple echogenic foci are present in left kidney suspicious for calculi and correspond to findings present on the comparison CT of 10/03/2023. Findings include a midpole calculus measuring 0.7 cm x 0.3 cm x 0.5 cm. No perinephric fluid collections or left perinephric inflammatory changes identified. Grossly normal color Doppler interrogation of the left kidney. Normal renal echogenicity. US/US renal BI IMPRESSION: *Bilateral multifocal renal calculi. *No hydronephrosis. Electronically signed by: Napoleon Briggs MD 10/05/2023 05:40 AM EDT Dictated By: Napoleon Briggs MD Signed By: <Electronically signed by Napoleon Briggs MD in [place]> 10/05/23 0540 DD/ 1540 TD/TT: 10/04/23 1555 Occupational Health Nurse Supervisor: BRANDON REASON FOR REFERRAL Reason UTI Diagnosis 1 Cystitis, unspecifie d without hematuria (N30.90) Referral Organization [facility] Kelly FACP Referring Provider First Name Preston Referring Provider Last Name Felipe Referring Provider Speciality Internal M edicine Referred Provider Horacio Jacobsen Referred Provider Specialty OB - Gynecol ogy General Notes Pricila Reed 12:10:18 PM EDT > Referral faxed prior to scheduling. Referral Priority Routine Referral Appointment Date 07/06/2023 Reason Open fracture, left great toe Diagnosis 1 Unspecified fracture of left toe(s), initial encounter for closed fracture (S92.912A) Referral Organization Preston Kelly FACP Referring Provider First Name Preston Referring Provider Last Name Felipe Referring Provider Speciality Internal edicine Referred Provider See Zabala Referred Provider Specialty Orthopedic S urgery General Notes Ruby Hogan 024 10:02:34 AM EDT > referral manually faxed with records. Referral Priority Routine Referral Appointment Date 08/26/2023 MEDICATIONS Medication SIG (Take, Route, Frequency, Duration) [...] and Tuesday Orally Once a day Active metFORMIN HCl ER 500 MG 1 tablet with ev ening meal Orally Once a day 11/11/2023 Active Atorvastatin Calcium 10 MG 1 tablet Oral ly Once a day Active Furosemide 40 MG 1 tablet Orally Once a day Active IMMUNIZATIONS Vaccine Route Administration Date Status Comme nts Influenza Unknown 01/05/2011 Administered TDaP IM Intramuscular 03/24/2011 Administered PPD ID Intradermal 01/03/2012 Administered Influenza IM Intramuscular 02/18/2012 Administered PPD ID Intradermal 09/03/2015 Administered COVID-19 Moderna Vaccine Unknown 07/15/2020 Administere d COVID-19 Moderna Vaccine Unknown 08/12/2020 Administere d Influenza Unknown 02/14/2015 Refused Influenza Unknown 10/08/2015 Refused Pneumococcal - PPSV23 Unknown 10/08/2015 Refused Influenza Unknown 12/27/2016 Refused Pneumococcal - PPSV23 Unknown 12/27/2016 Refused Influenza Unknown 11/23/2019 Refused Influenza Unknown 11/24/2021 Refused SOCIAL HISTORY Tobacco Use: Social History Observation [...] ast year? No Points 0 Interpretation Negative PROBLEMS Problem Type ICD Code Onset Dates Problem Status W/U Status Risk SNOMED Code Notes Problem Abnormal uterine and vaginal bleeding, unspecified (N93.9) Active confirmed Abnormal uterine bleeding ([id number] 00) Problem Unspecified fracture of left toe(s), initial encounter for closed fracture (S92.912A) Active confirmed Closed fracture of phalanx of foot (94741815) Problem Essential hypertension (I10) Active confirmed 32966048 Problem Acquired hypothyroidism (E03.9) Active confirmed 566089391 Problem Morbid obesity due to excess calories (E66.01) Active confirmed 928878462 Problem Eczema, unspecified type (L30.9) Active confirmed 70205474 Problem Sciatica, right (M54.31) Active confirmed 13016296 Problem Chronic right-sided low back pain without sciatica (M54.5) Active confirmed 958729876 Problem Type 2 diabetes mellitus without complication, without long-term current use of insulin (E11.9) Active confirmed 216983308 Problem Sciatica of left side (M54.32) Active confirmed 30401484 Problem Severe single current episode of major depressive disorder, 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) Active confirmed 29828647 Problem Right-sided back pain, unspecified back location, unspecified chronicity (M54.9) Active confirmed 804520176 Problem 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) Active confirmed 557585999 Problem Pneumonia of both lungs due to infectious organism, unspecified part of lung (J18.9) Active confirmed 838396123 Problem Gastritis without bleeding, unspecified chronicity, unspecified gastritis type (K29.70) Active confirmed 6118312 Problem Diverticulitis (K57.92) Active confirmed 080576843 Problem Vaginal burning (N94.9) Active confirmed 447162664 Problem 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 9 Preston Wang DO, [address] [id number] 06/27/2023 Preston Wang Vaginal burning N94. 9 Preston Wang DO, [address] [id number] 07/05/2023 Preston Wang DO, [address] [id number] 07/12/2023 Preston Wang DO, [address] [id number] 07/19/2023 Preston Wang Staghorn calculus N2 0.0 and Vaginal burning N94.9 Preston Wang DO, [address] [id number] 07/20/2023 Preston Wang DO, [address] [id number] 07/25/2023 Preston Wang DO, [address] [id number] 08/15/2023 Preston Wang Toe osteomyelitis M8 6.9 Preston Wang DO, [address] [id number] 08/16/2023 Preston Wang Toe osteomyelitis M8 6.9 Preston Wang DO, [address] [id number] 08/22/2023 Preston Wang DO, [address] [id number] 08/24/2023 Preston Wang Toe osteomyelitis M8 6.9 Preston Wang DO, [address] [id number] 11/21/2023 Preston Wang Type 2 diabetes mellitus without complication, without long-term current use of insulin E11.9 Preston Wang DO, [address] [id number] 11/23/2023 Preston Wang Type 2 diabetes mellitus without complication, without long-term current use of insulin E11.9 Preston Wang DO, [address] [address] [id number] 05/20/2023 Preston Wang Essential hypertensi on I10 ; Acquired hypothyroidism E03.9 ; Type 2 diabetes mellitus without complication, without long-term current use of insulin E11.9 ; Staghorn calculus N20.0 ; Vaginal burning N94.9 and Eczema, unspecified type L30.9 Preston Blankenship Felipe KUMAR, [address] [id number] 07/22/2023 Preston Wang , [address] [id number] 07/29/2023 Preston Wang Vaginal burning N94. 9 ; Staghorn calculus N20.0 ; Essential hypertension I10 ; Acquired hypothyroidism E03.9 and Type 2 diabetes mellitus without complication, without long-term current use of insulin E11.9 Preston Wang , [address] [id number] 11/11/2023 Preston Wang Diverticulitis K57.9 2 ; Essential hypertension I10 ; Acquired hypothyroidism E03.9 ; Staghorn calculus N20.0 and Type 2 diabetes mellitus without complication, without long-term current use of insulin E11.9 Preston Wang DO, [address] [id number] 12/16/2023 Preston Wang Diverticulitis K57.9 2 ; Type 2 diabetes mellitus without complication, without long-term current use of insulin E11.9 ; Essential hypertension I10 ; Acquired hypothyroidism E03.9 and Staghorn calculus N20.0 ASSESSMENTS Encounter Date Diagnosis Assessment Notes Treatment Notes Treatment Clinical Notes 06/07/2023 Vaginal burning (ICD-10 - N94.9) 06/27/2023 Vaginal burning (ICD-10 - N94.9) 07/19/2023 Staghorn calculus (ICD-10 - N20.0) 07/19/2023 Vaginal burning (ICD-10 - N94.9) 08/15/2023 Toe osteomyelitis (ICD-10 - M86.9) 08/16/2023 Toe osteomyelitis (ICD-10 - M86.9) 08/24/2023 Toe osteomyelitis (ICD-10 - M86.9) 11/21/2023 Type 2 diabetes mellitus without complication, without long-term current use of insulin (ICD-10 - E11.9) 11/23/2023 Type 2 diabetes mellitus without complication, without long-term current use of insulin (ICD-10 - E11.9) 05/20/2023 Essential hypertension (ICD-10 - I10) 05/20/2023 Acquired hypothyroidism (ICD-10 - E03.9) 07/29/2023 Staghorn calculus (ICD-10 - N20.0) 07/29/2023 Vaginal burning (ICD-10 - N94.9) 11/11/2023 Essential hypertension (ICD-10 - I10) 11/11/2023 Diverticulitis (ICD-10 - K57.92) Recently underwent open sigmoidectomy and descending colostomy due to sigmoid stricture and colonic obstruction due to diverticulitis. Is doing well. The goal is for colostomy reversal in the future. She follows with Surgery. 12/16/2023 Type 2 diabetes mellitus without complication, without long-term current use of insulin (ICD-10 - E11.9) 12/16/2023 Diverticulitis (ICD-10 - K57.92) Follow up with Surgery. Advise multivitamin with iron once a day. 05/20/2023 Type 2 diabetes mellitus without complication, without long-term current use of insulin (ICD-10 - E11.9) 07/29/2023 Essential hypertension (ICD-10 - I10) 11/11/2023 Acquired hypothyroidism (ICD-10 - E03.9) 12/16/2023 Essential hypertension (ICD-10 - I10) 05/20/2023 Staghorn calculus (ICD-10 - N20.0) 07/29/2023 Acquired hypothyroidism (ICD-10 - E03.9) 11/11/2023 Staghorn calculus (ICD-10 - N20.0) 12/16/2023 Acquired hypothyroidism (ICD-10 - E03.9) 05/20/2023 Vaginal burning (ICD-10 - N94.9) 07/29/2023 Type 2 diabetes mellitus without complication, without long-term current use of insulin (ICD-10 - E11.9) 11/11/2023 Type 2 diabetes mellitus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
== END 2024-01-17 13:16 | disposition home or self-care (01) ==
PROVIDERS: PCP Internal Medicine; Visit Provider Surgery
DX: Z93.3 Colostomy status (principal)
CPT/HCPCS: 99213

== ENCOUNTER → 2024-01-17 12:41 | Outpatient (BNVA) | payer MEDICARE, SELFPAY | PROVIDERS: PCP Internal Medicine; Visit Provider Surgery | DX: Z93.3 Colostomy status (principal) | CPT/HCPCS: 99212 ==

== ENCOUNTER 2024-01-24 11:30 | Outpatient (RCR) | payer MEDICARE, SELFPAY | END 2024-03-01 15:07 | disposition home or self-care (01) | LOC: HO.WCC 11:30 | PROVIDERS: PCP Internal Medicine; Visit Provider Surgery | DX: T81.40XD Infection following a procedure, unspecified, subsequent encounter (principal); L98.492 Non-pressure chronic ulcer of skin of other sites with fat layer exposed | CPT/HCPCS: 11042; 17250; 87070; 87077; 87186; 87205; 97597; 99212; 99213 ==

== ENCOUNTER 2024-02-15 14:53 | Outpatient (AMB) | payer MEDICARE, SELFPAY ==
--- OUTSIDE RECORDS SUMMARY | 2024-02-15 14:58 | XMS_ITS ---
Author Organization [facility] Address [address] [place] [address] Care Team Providers Care Auto Customize Painter Name Role Phone Felipe SERNA, Preston Primary Care Provider Unavail able Lucy Castro Unavailable [phone] Encounters Encounter Location Date Provider Diagnosis [facility] [address] [place] [address] 06/28/2023 Lucy Castro Plan Of Treatment No Information Progress Notes * Casimiro DOANineDOB: 8 (78 yo F)Acc No.[id number]:06/28/2023 Progress Note Patient:?Xi DOAN Provider:?Lucy Castro DPM :1945???Age:78 Y???Sex:Female D ate:06/28/2023 Address:[address] [place] [address] [address]IN[id number] Pcp:Preston Wang MD Subjective: * Chief Complaints: * ??? * Medical History:? Objective: * Vitals:? Assessment: Plan: * Treatment: * Images: * The named appointment provid er may or may not be the originator of this progress note, and it is not deemed complete until electronically signed by the appointment provider. Sign off status: Pending * Provider:?Lucy Castro DPM Date:? Generated for Printi bre/Fagorang/eTransmitting on:?02/15/2024 02:58 PM EST
--- OUTSIDE RECORDS SUMMARY | 2024-02-15 14:59 | XMS_ITS | Clinical Summary ---
Author Organization Unknown Care Team Providers Care Residential Electrician Name Role Phone PITA , LIBERTAD Unavailable Unavailable ZEE RN, ABIEL Unavailable Unavailable ANABELLA RN, SHAYY Unavailable Unavailable Payers Payer Name Policy Type Policy Number Effective Date Expira tion Date MEDICARE - NGS HI/AR - PD [id number] [facility] [id number] Problems Condition Name Condition Details Condition Category [...] MIXED HYPERLIPIDEM IA Active 02-07 00:00: 00 SENIOR CARE (CURRENT) USE OF ORAL HYPOGLYCEMIC DRUGS Active 02-07 00:00: 00 SENIOR CARE (CURRENT) USE OF OPIATE ANALGESIC Active 02-07 [...] 10 mg tablet 2023-02 00:00: 00 Yes [id number] 1 tablet DAILY 1 tablet DAILY (route: oral) Med Classific ation: Cardiovas cular Therapy Agents B-complex with vitamin C 400 mcg-500 mg tablet 2023-02 00:00: 00 Yes [id number] 1 tablet DAILY 1 tablet DAILY (route: oral) Med Classific ation: Electroly te Balance-N utritiona l Products clindamycin HCl 300 mg capsule 920 00:00: 00 11-10 23:59 :00 No [id number] 1 capsule EVERY 6 HOURS 1 capsule EVERY 6 HOURS (route: oral) Med Classific ation: Anti-Infe ctive Agents furosemide 40 mg tablet 2023-02 00:00: 00 Yes [id number] 1 tablet DAILY 1 tablet DAILY (route: oral) Med Classific ation: Cardiovas cular Therapy Agents levothyroxi ne 112 mcg tablet 2023-02 00:00: 00 Yes [id number] 1 tablet DAILY 1 tablet DAILY (route: oral) Med Classific ation: Endocrine metformin 500 mg tablet 2023-02 00:00: 00 Yes [id number] 1 tablet DAILY 1 tablet DAILY (route: oral) Med Classific ation: Endocrine Probiotic Acidophilus 250 million cell capsule 2023-02 00:00: 00 Yes [id number] 1 capsule DAILY 1 capsule DAILY (route: oral) Med Classific ation: Gastroint estinal Therapy Agents tramadol 50 mg tablet 2023-02 0 00:00: 00 Yes [id number] 1 tablet 3 TIMES DAILY 1 tablet 3 TIMES DAILY (route: oral) Med Classific ation: Analgesic , Anti-infl ammatory or Antipyret ic Vitamin D3 25 mcg (1,000 unit) capsule 2023-02 0 00:00: 00 Yes [id number] 2 capsule DAILY 2 capsule DAILY (route: oral) Med Classific ation: Electroly te Balance-N utritiona l Products Immunizations Ordered Immunization Name Filled Immunization Name Date Status Comments Refusal Reason COVID-19, COVID-19 2020-11-07 00:00:00 Vital Signs Vital Name Observation Time Observation Value Commen ts Temperature 2024-02-13 14:10:00.000 97 [degF] Temperature 2024-02-07 21:50:00.000 97 [degF] Temperature 2024-02-02 18:13:00.000 98.2 [degF] Temperature 2024-01-31 12:36:00.000 97 [degF] Temperature 2024-01-27 15:26:00.000 97 [degF] Temperature 2024-01-23 13:00:00.000 97.4 [degF] Temperature 2024-01-19 12:47:00.000 97.1 [degF] Temperature 2024-01-17 10:53:00.000 97.6 [degF] Temperature 2024-01-13 12:20:00.000 97.7 [degF] Temperature 2024-01-11 19:38:00.000 97 [degF] Pulse 2024-02-13 14:10:00.000 74 /min Pulse 2024-02-07 21:50:00.000 70 /min Pulse 2024-02-02 18:13:00.000 68 /min Pulse 2024-01-31 12:36:00.000 72 /min Pulse 2024-01-27 15:26:00.000 70 /min Pulse 2024-01-23 13:00:00.000 74 /min Pulse 2024-01-19 12:47:00.000 84 /min Pulse 2024-01-17 10:53:00.000 70 /min Pulse 2024-01-13 12:20:00.000 71 /min Pulse 2024-01-11 19:38:00.000 74 /min O2 Saturation (%) 2024-02-13 14:10:00.000 98 % O2 Saturation (%) 2024-02-07 21:50:00.000 97 % O2 Saturation (%) 2024-02-02 18:13:00.000 97 % O2 Saturation (%) 2024-01-31 12:36:00.000 99 % O2 Saturation (%) 2024-01-27 15:26:00.000 97 % O2 Saturation (%) 2024-01-23 13:00:00.000 98 % O2 Saturation (%) 2024-01-19 12:47:00.000 98 % O2 Saturation (%) 2024-01-17 10:53:00.000 98 % O2 Saturation (%) 2024-01-13 12:20:00.000 99 % O2 Saturation (%) 2024-01-11 19:38:00.000 97 % Respirations 2024-02-13 14:10:00.000 19 /min Respirations 2024-02-07 21:50:00.000 18 /min Respirations 2024-02-02 18:13:00.000 18 /min Respirations 2024-01-31 12:36:00.000 18 /min Respirations 2024-01-27 15:26:00.000 18 /min Respirations 2024-01-23 13:00:00.000 18 /min Respirations 2024-01-19 12:47:00.000 18 /min Respirations 2024-01-17 10:53:00.000 18 /min Respirations 2024-01-13 12:20:00.000 18 /min Respirations 2024-01-11 19:38:00.000 18 /min Systolic Blood Pressure 2024-02-13 14:10:00.000 128 mm [Hg] Systolic Blood Pressure 2024-02-07 21:50:00.000 108 mm [Hg] Systolic Blood Pressure 2024-02-02 18:13:00.000 110 mm [Hg] Systolic Blood Pressure 2024-01-31 12:36:00.000 120 mm [Hg] Systolic Blood Pressure 2024-01-27 15:26:00.000 122 mm [Hg] Systolic Blood Pressure 2024-01-23 13:00:00.000 118 mm [Hg] Systolic Blood Pressure 2024-01-19 12:47:00.000 128 mm [Hg] Systolic Blood Pressure 2024-01-17 10:53:00.000 126 mm [Hg] Systolic Blood Pressure 2024-01-13 12:20:00.000 148 mm [Hg] Systolic Blood Pressure 2024-01-11 19:38:00.000 134 mm [Hg] Diastolic Blood Pressure 2024-02-13 14:10:00.000 74 mm [Hg] Diastolic Blood Pressure 2024-02-07 21:50:00.000 62 mm [Hg] Diastolic Blood Pressure 2024-02-02 18:13:00.000 60 mm [Hg] Diastolic Blood Pressure 2024-01-31 12:36:00.000 64 mm [Hg] Diastolic Blood Pressure 2024-01-27 15:26:00.000 64 mm [Hg] Diastolic Blood Pressure 2024-01-23 13:00:00.000 64 mm [Hg] Diastolic Blood Pressure 2024-01-19 12:47:00.000 64 mm [Hg] Diastolic Blood Pressure 2024-01-17 10:53:00.000 [...] MAINTAIN SITUATIONAL AWARENESS AND WILL NOTIFY CLINICAL AUTOMOBILE REPOSSESSOR AND PHYSICIAN/PROVIDER WITH ANY CHANGE IN CONDITION. [code = SKILLED NURSE TO PERFORM ENVIRONMENTAL SAFETY RISK ASSESSMENT AND FALL RISK ASSESSMENT AND PROVIDE INSTRUCTION TO IMPLEMENT ENVIRONMENTAL SAFETY AND FALL PREVENTION STRATEGIES THROUGHOUT THE CERTIFICATION PERIOD. SKILLED NURSE WILL MAINTAIN SITUATIONAL AWARENESS AND WILL NOTIFY CLINICAL AUTOMOBILE REPOSSESSOR AND PHYSICIAN/PROVIDER WITH ANY CHANGE IN CONDITION.] [...] CARE WILL BE ESTABLISHED THAT MEETS PATIENT'S NURSING HOME NEEDS AND INCLUDES PATIENT GOAL FOR HOME [...] EPISODE. Progress Notes Progress Notes <paragraph>[Visit Date: 2024 by SHAYY KYLE RN]:</paragraph><paragraph>SNV ABNORMAL VITALS: WNL FALLS:N PHYSICAL ASSESSMENT FINDINGS: PT AWAKE AND ALERT VSS AFEBRILE LUNGS CLEAR SPEAKING IN FULL SENTENCES NAD NOTED ABD SNT POS BS DENIES PROBLEMS WITH BLADDER OSTOMY PRESENT STOMA HEALTHY SOFT STOOL WILL HAVE OSTOMY REVERSAL NEXT WEEK MEDICATION CHANGES: N HANDS ON CARE: ASSESSMENT TEACHING PREOP INSTRUCTION REVIEWED TEACHING PROVIDED: OSTOMY CARE. PREOP INSTRUCTION PATIENT/CAREGIVER TEACH BACK:VERBALIZED UNDERSTANDING NEXT APPOINTMENT: MON REVERSAL TOMORROW PCP NEW ORDERS: N INSTRUCTED PATIENT AND CAREGIVER TO CALL [facility] WITH ANY QUESTIONS OR CHANGES IN CONDITION</paragraph> Encounters Start Date/Time End Date/Time Encounter Type Admission Type Attending [facility] Care Department Encounter ID Discharge Date Discharge Status Discharge Condition Discharge Reason Percent Goals Met 2023-11-09 00:00:00 2024-03-07 00:00:00 Outpatient RECERTIFIC ATION SHAYY KYLE [facility] [id number] 57.58
--- NOTE | 2024-02-15 15:09 | A.OFFPC_ITS ---
Vital Signs 02/15/24 15:11 Height 5 ft 4 in Weight 207 lb 10.807 oz BMI 35.6 BP 114/60 Blood Pressure Location Lt brachial Position Sitting Pulse 100 Pulse Source Pulse Oximeter Pulse Oximetry (%) 98 Oxygen Delivery Method Room Air Intake Visit Reasons: Pre-op Intake Note: Patient is here for a Pre-op for Ostomy reversal scheduled with Dr Jimenez on 02/20/24. Bay Stocker Required: No Frame Pulley Mortising Machine Operator: Present Accompanied by: Spouse Allergies chlorpheniramine [From TUSSIONEX] Allergy (Severe, Verified 02/15/24 15:11) HALLUCINATIONS ciprofloxacin [From CIPRO] Allergy (Severe, Verified 02/15/24 15:11) ANAPHYLAXIS escitalopram [ESCITALOPRAM] Allergy (Severe, Verified 02/15/24 15:11) DISSOCIATIVE REACTION fluoxetine [FLUOXETINE] Allergy (Severe, Verified 02/15/24 15:11) DISSOCIATIVE REACTION hydrocodone [From TUSSIONEX] Allergy (Severe, Verified 02/15/24 15:11) HALLUCINATIONS ibuprofen [IBUPROFEN] Allergy (Severe, Verified 02/15/24 15:11) THROAT SWELLING Sulfa (Sulfonamide Antibiotics) [SULFA (SULFONAMIDE ANTIBIOTICS)] Allergy (Severe, Verified 02/15/24 15:11) DYSPNEA clarithromycin [From BIAXIN] Allergy (Intermediate, Verified 02/15/24 15:11) ABD.PAIN duloxetine [DULOXETINE] Allergy (Intermediate, Verified 02/15/24 15:11) FACIAL NUMBNESS erythromycin base [ERYTHROMYCIN BASE] Allergy (Intermediate, Verified 02/15/24 15:11) RASH Penicillins [PENICILLINS] Allergy (Intermediate, Verified 02/15/24 15:11) RASH tetracycline [TETRACYCLINE] Allergy (Intermediate, Verified 02/15/24 15:11) DIARRHEA codeine [CODEINE] Allergy (Unknown, Verified 02/15/24 15:11) TINNITIS guaifenesin Allergy (Unknown, Verified 02/15/24 15:11) Unknown levofloxacin [From Levaquin] Allergy (Unknown, Verified 02/15/24 15:11) Unknown pregabalin Allergy (Unknown, Verified 02/15/24 15:11) Unknown Tobacco use date assessed: 02/15/24 Fall risk assessment: No Falls in past year Last assessed Fall Risk: 02/15/24 Dental Screening Dental Screen Date: 02/15/24 Did you have a dental visit in the last 12 months?: Yes Did you have a dental problem in the last 6 months where you did not have access to dental care?: No Was dental information given to patient?: Patient has dentist HPI Pre-op HPI Details 78-year-old female [facility] for a preop clearance. Patient is scheduled for a colostomy reversal on 02/19/2023. The procedures under general anesthesia. Patient had a large bowel obstruction in October and a part of the bowel was resected. She received a temporary colostomy. Patient has had prior surgeries under general anesthesia including hysterectomy. She has tolerated surgeries well. 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 Uses a walker for short distances. Able to function and do activities of daily living at home. History of borderline diabetes and thyroid disorder. No history of cardiac disease. [facility] Medical History Hydroureteronephrosis Wound infection Open wound of back, complicated Cellulitis Frequency of urination Vaginal burning Vaginal itching PMB (postmenopausal bleeding) Cirrhosis of liver Does mobilize using walker PONV (postoperative nausea and vomiting) Left foot drop Fatty liver Fibromyalgia Neuropathy RBBB Cholelithiasis Staghorn calculus Renal calculus, bilateral Renal calyceal dilation determined by ultrasound UTI (urinary tract infection) Diabetes mellitus, type II Ganglion cyst Plantar fasciitis Anxiety OA (osteoarthritis) Obstructive airway disease Hypercholesterolemia Low back pain Sciatica Hypothyroidism HTN (hypertension) Primary osteoarthritis of right knee Retained ureteral stent Renal stones Staghorn calculus Perirectal abscess Surgical History History of colectomy (~10/06/23) Status post cystoscopy with ureteral stent placement History of lumbar discectomy History of lumpectomy of both breasts History of cystoscopy History of lithotripsy Hx of colonoscopy History of surgery Family History Father Alcohol dependence Mother CHF (congestive heart failure) Cancer of breast Mother No problems noted. Other Alcoholic cirrhosis Substance use disorder Social History Household Members: Spouse Housing: House Are you a primary customer care representative to a significant other at home: No Do you presently have visiting nurse or other home services: Yes ([facility] 2x week) 75 years or older and lives alone: No Alcohol intake: never Comment: wheelchair for long distances Patient Tobacco Use Status: Former Tobacco user Tobacco use type: Cigarette Years Smoked: 27 e-Cigarette/Vaping Use: Never Used Second Hand Smoke Exposure: Yes Advance Directives Date on File: 04/06/21 service: No Current occupational status: disabled Cognitive needs: Yes (wheelchair) Hearing needs: No Vision needs: Yes (Glasses) Questionnaire PHQ-9 Over the last 2 weeks, how often have you been bothered by any of the following problems? 1. Little interest or pleasure in doing things: not at all 2. Feeling down, depressed, or hopeless: not at all 3. Trouble falling or staying asleep, or sleeping too much: not at all 4. Feeling tired or having little energy: not at all 5. Poor appetite or overeating: not at all 6. Feeling bad about yourself - or that you are a failure or have let yourself or your family down: not at all 7. Trouble concentrating on things, such as reading the newspaper or watching television: not at all 8. Moving or speaking so slowly that other people could have noticed. Or the opposite - being so fidgety or restless that you have been moving around a lot more than usual: not at all 9. Thoughts that you would be better off or of hurting yourself in some way: not at all Total score: 0 Depression Screening Interpretation: Negative Depression Screening Done: Yes Source: Developed by Drs. Preston Aponte, Jojo Holland, Subhash Richmond and colleagues, with an educational vernon from [employer]. Thrive Questionnaire Date Thrive assessed: 02/15/24 I am a: Patient What is your living situation today?: I have a steady place to live Within the past 12 months, did the food you bought not last and you didn't have the money to get more?: Never true Within the past 12 months, did you worry whether your food would run out before you got money to buy more?: Never true Do you have trouble paying for medicines?: No Do you have trouble getting transportation to medical appointments?: No Do you have trouble paying your heating and electricity bill?: No Do you have trouble taking care of your child, family member or friend?: No Do you have trouble with day-to-day activities such as bathing, preparing meals, shopping, managing finances, etc.?: No Are you currently unemployed and looking for a job?: No Are you interested in more education?: No Please select the resources that you would like help with: None Currently or been in a relationship where the following occur: No concerns reported THRIVE Score: 0 AUDIT C Alcohol Use Questionnaire (AUDIT-C) 1. How often do you have a drink containing alcohol?: Never Total Score: 0 RAMONE-7 AMB Questionnaire RAMONE-7 Date RAMONE - 7 assessed: 02/15/24 Feeling nervous, anxious, or on edge: 0 = Not at all Not being able to stop or control worryin = Not at all Worrying too much about different things: 0 = Not at all Trouble relaxin = Not at all Being so restless that it is hard to sit still: 0 = Not at all Becoming easily annoyed or irritable: 0 = Not at all Feeling afraid as if something awful might happen: 0 = Not at all Total RAMONE-7 score (0-4 normal; 5-9 mild; 10-14 moderate; 15-21 severe): 0 Source: Developed by Drs. Preston Aponte, Jojo Holland, Subhash Richmond and colleagues, with an educational vernon from [employer]. Physical exam (Primary Care) Vital Signs: Last Vital Signs Pulse 100 02/15/24 15:11 BP 114/60 02/15/24 15:11 Pulse Ox 98 02/15/24 15:11 Oxygen Delivery Method Room Air 02/15/24 15:11 BMI result Body Mass Index 35.6 Tobacco/Smoking Status: Tobacco use Status Tobacco use date assessed 02/15/24 02/15/24 15:16 Patient Tobacco Use Status Former Tobacco user 02/15/24 15:16 Tobacco use type Cigarette 02/15/24 15:16 e-Cigarette/Vaping Use Never Used 02/15/24 15:16 PHQ-9: PHQ-9 Score PHQ-9: Total score 0 02/15/24 15:16 Depression Screening Interpretation: Negative Thrive Assessment: Date of Thrive Assessment Date Thrive assessed 02/15/24 02/15/24 15:16 Currently or been in a relationship where the following occur: No concerns rep orted Const General: cooperative and healthy appearing Nutritional Appearance: well nourished Orientation/consciousness: patient oriented x3 Limitations: no limitations HENMT Head: Yes normal to inspection Eyes General: appearance normal, both eyes and all related structures Neck Neck: Yes normal visual inspection Chest Chest palpation & inspection: normal palpation of entire chest wall Resp Effort & Inspection: normal respiratory effort GI Other: Abdomen: Colostomy bag in place Neuro General: patient oriented x3 Coding Level of Care Code Est Pt Level 4 (82506) Diagnoses Encounter for pre-operative cardiovascular clearance Z01.810 Assessment & Plan Assessment & Plan (1) Encounter for pre-operative cardiovascular clearance: Code(s): Z01.810 - Encounter for preprocedural cardiovascular examination Plan: BW and EKG ordered. Continue meds upto the night prior to the procedure. Orders: Orders Basic Metabolic Panel Today Z.810 - Encounter for preprocedural cardiov ascular examination Liver Panel Today Z.810 - Encounter for preprocedural cardiovascular examination ECG 12 lead EKG Today Z.810 - Encounter for preprocedural cardiovascular examination Lipid Panel Today Z01.810 - Encounter for preprocedural cardiovascular examination Thyroid Stimulating Hormone Today Z01.810 - Encounter for preprocedural cardiovascular examination UA and rflx microscopic Today Z01.810 - Encounter for preprocedural cardiovascular examination Medications: Refilled tramadol 50 mg PO BID PRN 14 tabs 0RF pain (scale score 7-10) Z93.3 - Colost todd status
[2024-02-15 15:11] VITALS: BP 114/60; PULSE 100; O2SAT 98; BMI 35.6
== END 2024-02-15 17:02 | disposition home or self-care (01) ==
PROVIDERS: PCP Internal Medicine; Visit Provider Internal Medicine
DX: Z01.810 Encounter for preprocedural cardiovascular examination (principal)

== ENCOUNTER → 2024-02-15 14:53 | Outpatient (BNVA) | payer MEDICARE, SELFPAY | PROVIDERS: PCP Internal Medicine; Visit Provider Internal Medicine | DX: Z01.810 Encounter for preprocedural cardiovascular examination (principal); E11.9 Type 2 diabetes mellitus without complications; E78.00 Pure hypercholesterolemia, unspecified; I10 Essential (primary) hypertension | CPT/HCPCS: 96127; 99212 ==

== ENCOUNTER 2024-02-16 10:59 | Outpatient (REF) | payer MEDICARE, SELFPAY ==
--- NOTE | 2024-02-16 11:09 | ECG_ITS ---
Test Reason : PRE OP Blood Pressure : */* mmHG Vent. Rate : 70 BPM Atrial Rate : 70 BPM P-R Int : 214 ms QRS Dur : 120 ms QT Int : 412 ms P-R-T Axes : 85 41 31 degrees QTcB Int : 444 ms Sinus rhythm with sinus arrhythmia with 1st degree A-V block Possible Inferior infarct (cited on or before 24-Apr-2023) Abnormal ECG When compared with ECG of 24-Apr-2023 15:21, Right bundle branch block is no longer Present Referred By: Ap Deal Electronically Signed By: SUSSY BOSS
--- OUTSIDE RECORDS SUMMARY | 2024-02-16 11:43 | XMS_ITS ---
Author Organization [facility] Address [address] [place] [address] Care Team Providers Care Inventory Analyst Name Role Phone Felipe SERNA, Preston Primary Care Provider Unavail able Lucy Castro Unavailable [phone] Encounters Encounter Location Date Provider Diagnosis [facility] [address] [place] [address] 06/28/2023 Lucy Castro Plan Of Treatment No Information Progress Notes * Casimiro DOANineDOB: 8 (78 yo F)Acc No.[id number]:06/28/2023 Progress Note Patient:?Xi DOAN Provider:?Lucy Castro DPM :1945???Age:78 Y???Sex:Female D ate:06/28/2023 Address[address] [place], [place] [address] [place] [address] Pcp:Preston Wang MD Subjective: * Chief Complaints: * ??? * Medical History:? Objective: * Vitals:? Assessment: Plan: * Treatment: * Images: * The named appointment provid er may or may not be the originator of this progress note, and it is not deemed complete until electronically signed by the appointment provider. Sign off status: Pending * Provider:?Lucy Castro DPM Date:? Generated for Nildai bre/Artur/eTransmitting on:?02/16/2024 11:43 AM EST
--- OUTSIDE RECORDS SUMMARY | 2024-02-16 11:43 | XMS_ITS ---
Author Organization [facility] Address [address] [place] [address] Care Team Providers Care Grease Monkey Name Role Phone Felipe SERNA, Preston Primary Care Provider Unavail able Lucy Castro Unavailable [phone] Encounters Encounter Location Date Provider Diagnosis [facility] [address] [place] [address] 11/26/2022 Lucy Castro Plan Of Treatment No Information Progress Notes * Casimiro DOANineDOB: 8 (78 yo F)Acc No.[id number]:11/26/2022 Progress Note Patient:?Xi DOAN Provider:?Lucy Castro DPM :1945???Age:77 Y???Sex:Female D ate:11/26/2022 Address:[address] [place], [place] [address] [place] [address] Pcp:Preston Wang MD Subjective: * Chief Complaints: [...] Castro DPM Date:? Generated for Printi bre/Fagorang/eTransmitting on:?02/16/2024 11:43 AM EST
--- OUTSIDE RECORDS SUMMARY | 2024-02-16 11:43 | XMS_ITS ---
Author Organization [facility] Address [address] [place] [address] Care Team Providers Care Batch Dumper Name Role Phone Preston Wang MD Primary Care Provider Unavail able Lucy Castro Unavailable [phone] REASON FOR VISIT SD cx 06/27 Encounters Encounter Location Date Provider Diagnosis [facility] [address] [place] [address] 06/28/2023 Lucy Castro Plan Of Treatment No Information Progress Notes * Casimiro DOANineDOB: 8 (78 yo F)Acc No.[id number]:06/28/2023 Patient:?MeliKemal blantonXi :1945???Age:78 Y???Sex:Female Address:[address] [place] [address] [place] [address] * true * Date:? Generated for Printi bre/Artur/eTransmitting on:?02/16/2024 11:43 AM EST
--- OUTSIDE RECORDS SUMMARY | 2024-02-16 11:44 | XMS_ITS | Patient Health Record ---
Author Organization [facility] Address [address] [facility] [place] [address] Care Team Providers Care Powder Mixer Name Role Phone Preston Wang MD Primary Care Provider Unavail able Lucy Castro Unavailable [phone] Allergies Allergen (clinical drug ingredient) Drug/Non Drug Allergy documented on EMR Reaction Allergy Type Onset Date Status ibuprofen Advil Throat swelling Drug Allergy A ctive Aleve Throat swelling Drug Allergy A ctive [...] Problem Status W/U Status Risk Notes Problem 149075810 Hammer toe of le ft foot (M20.42) Active confirmed Problem 535392008 Neuropathy (G62.9) Active confirmed Problem [id number] Atherosclerosi s of artery of both lower extremities (I70.203) Active confirmed Encounters Encounter Location Date Provider Diagnosis [facility] [address] [place] [address] 06/28/2023 Lucy Castro Plan Of Treatment Pending Test Test Name Order Date X ray : Foot, left 3V 08/20/2022 X ray : Foot, left 3V 09/10/2022 X ray : Foot, left 3V 10/08/2022 [id number] NAIL, 1-5 12/21/2017 [id number] DYSTROPHIC NAILS ANY # Insurance Providers Payer Name Payer Address Payer Phone Subscriber Number Group Number Insured Name Patient Relationship to Insured Coverage Start Date Coverage End Date Medicare National [employer] [address] [place] [address] [id number] Xi Garrison Self - patient is the insured 3 [employer] [address] [place] [address] [phone] [id number] 1 Xi Garrison Self - patient is [...]
--- OUTSIDE RECORDS SUMMARY | 2024-02-16 11:44 | XMS_ITS ---
Author Organization Preston Wang DO, [facility] Address [address] [place], [place] [id number] Care Team Providers Care Cane Splicer Name Role Phone Preston Wang Primary Care Provider REASON FOR VISIT pre-op SOCIAL HISTORY Sex Assigned At : Social History Observation Description Sex Assigned At Female Encounters Encounter Location Date Provider Diagnosis Preston Wang DO, FACP [address] [place] [phone] 02/14/2024 Preston Wang PLAN OF TREATMENT No Information
--- OUTSIDE RECORDS SUMMARY | 2024-02-16 11:44 | XMS_ITS ---
Author Organization Preston Wang DO, [facility] Address [address] [place], [place] [id number] Care Team Providers Care Crawler Tractor Operator Name Role Phone Preston Wang Primary Care Provider REASON FOR VISIT 4 month f/u SOCIAL HISTORY Sex Assigned At : Social History Observation Description Sex Assigned At Female Encounters Encounter Location Date Provider Diagnosis Preston Wang DO, FACP [address] [place] [phone] 11/30/2023 Preston Wang PLAN OF TREATMENT No Information
--- OUTSIDE RECORDS SUMMARY | 2024-02-16 11:44 | XMS_ITS ---
Author Organization Preston Wang DO, F[facility] Address [address] [place] [id number] Care Team Providers Care Aging Department Supervisor Name Role Phone Preston Wang Primary Care Provider [phone] ALLERGIES Allergen (clinical drug ingredient) Drug/Non Drug [...] Location Date Provider Diagnosis Preston Wang DO, [address] [id number] 12/16/2023 Preston Wang Diverticulitis K57.9 2 ; [...] Notes Assessment Notes Diverticulitis Follow up with Austen zhou. Advise multivitamin with iron once a day. Staghorn calculus Follow up with [facility] Next Appt Details Follow Up: 3 Months, Reason: follow up visit Progress Notes * Examination Category Sub-Category Detail Notes General Examination PSYCH: alert, orien eddie, cognitive function intact History and Physical Notes * HPI (History of Present Illness) Category Sub-Category Detail Notes New symptom(s) Telehealth Location of provider:: Pro vider's home address Location of patient:: Address listed [...]
--- OUTSIDE RECORDS SUMMARY | 2024-02-16 11:45 | XMS_ITS | Clinical Summary ---
Author Organization Unknown Care Team Providers Care Casting Inspector Name Role Phone PITA , LIBERTAD Unavailable Unavailable ZEE RN, ABIEL Unavailable Unavailable ANABELLA RN, SHAYY Unavailable Unavailable Payers Payer Name Policy Type Policy Number Effective Date Expira tion Date [place]IC[place] - [place] [id number] [facility] [id number] Problems Condition Name Condition Details Condition Category [...] MIXED HYPERLIPIDEM IA Active 02-07 00:00: 00 HALFWAY (CURRENT) USE OF ORAL HYPOGLYCEMIC DRUGS Active 02-07 00:00: 00 HALFWAY (CURRENT) USE OF OPIATE ANALGESIC Active 02-07 [...] 10 mg tablet 2023-02 00:00: 00 Yes [id number] 1 tablet DAILY 1 tablet DAILY (route: oral) Med Classific ation: Cardiovas cular Therapy Agents B-complex with vitamin C 400 mcg-500 mg tablet 2023-02 00:00: 00 Yes [id number] 1 tablet DAILY 1 tablet DAILY (route: oral) Med Classific ation: Electroly te Balance-N utritiona l Products clindamycin HCl 300 mg capsule 920 00:00: 00 11-10 23:59 :00 No [id number] 1 capsule EVERY 6 HOURS 1 capsule EVERY 6 HOURS (route: oral) Med Classific ation: Anti-Infe ctive Agents furosemide 40 mg tablet 2023-02 00:00: 00 Yes [id number] 1 tablet DAILY 1 tablet DAILY (route: oral) Med Classific ation: Cardiovas cular Therapy Agents levothyroxi ne 112 mcg tablet 2023-02 00:00: 00 Yes [id number] 1 tablet DAILY 1 tablet DAILY (route: oral) Med Classific ation: Endocrine metformin 500 mg tablet 2023-02 00:00: 00 Yes [id number] 1 tablet DAILY 1 tablet DAILY (route: oral) Med Classific ation: Endocrine Probiotic Acidophilus 250 million cell capsule 2023-02 00:00: 00 Yes [id number] 1 capsule DAILY 1 capsule DAILY (route: oral) Med Classific ation: Gastroint estinal Therapy Agents tramadol 50 mg tablet 2023-02 0 00:00: 00 Yes [id number] 1 tablet 3 TIMES DAILY 1 tablet 3 TIMES DAILY (route: oral) Med Classific ation: Analgesic , Anti-infl ammatory or Antipyret ic Vitamin D3 25 mcg (1,000 unit) capsule 2023-02 0 00:00: 00 Yes [id number] 2 capsule DAILY 2 capsule DAILY (route: [...] MAINTAIN SITUATIONAL AWARENESS AND WILL NOTIFY CLINICAL LACROSSE COACH AND PHYSICIAN/PROVIDER WITH ANY CHANGE IN CONDITION. [code = SKILLED NURSE TO PERFORM ENVIRONMENTAL SAFETY RISK ASSESSMENT AND FALL RISK ASSESSMENT AND PROVIDE INSTRUCTION TO IMPLEMENT ENVIRONMENTAL SAFETY AND FALL PREVENTION STRATEGIES THROUGHOUT THE CERTIFICATION PERIOD. SKILLED NURSE WILL MAINTAIN SITUATIONAL AWARENESS AND WILL NOTIFY CLINICAL LACROSSE COACH AND PHYSICIAN/PROVIDER WITH ANY CHANGE IN CONDITION.] [...] CARE WILL BE ESTABLISHED THAT MEETS PATIENT'S FDC NEEDS AND INCLUDES PATIENT GOAL FOR HOME [...] End Date/Time Encounter Type Admission Type Attending [facility] Facility Care Department Encounter ID Discharge Date Discharge Status Discharge Condition Discharge Reason Percent Goals Met 2023-11-09 00:00:00 2024-03-07 00:00:00 Outpatient RECERTIFIC ATION SHAYY [facility] [id number] 57.58
--- OUTSIDE RECORDS SUMMARY | 2024-02-16 11:45 | XMS_ITS | Patient Health Record ---
Author Organization Preston Wang DO, FACP Address [address] [place] [phone] Care Team Providers Care Wafer Cleaner Name Role Phone Preston Wang Primary Care Provider [phone] ALLERGIES Allergen (clinical drug ingredient) Drug/Non Drug [...] ff Reviewed date:04/12/2023 09:21:42 PM Interpretation:Normal Performing Lab:[facility], [address] [place] [phone] Notes/Report: White Blood Count 8.8 4.8-10.8 X10*3/uL [...] Panel Reviewed date:04/12/2023 09:21:42 PM Interpretation:Abnormal Performing Lab:[facility], [address] [place] [phone] Notes/Report: Sodium 137 135-145 mmol/L Potassium 3.4 [...] Estimated Glomerular Filt Rate 34 NOTE: For -Martiniquais individuals, multiply the result by 1.210. Chronic [...] Lipase Reviewed date:04/12/2023 09:21:42 PM Interpretation:Normal Performing Lab:[address] [phone] Notes/Report: Lipase 15 8-78 U/L SARS-CoV2/FLU/RSV Reviewed date:04/12/2023 09:21:42 PM Interpretation:Negative Performing Lab:[address] [phone] Notes/Report: Influenza A PCR NEGATIVE Negative Influenza [...] by authorized laboratories. Testing performed on the [employer] GeneXpert utilizing real-time RT-PCR. All SARS CoV2 and positive influenza A/B results are reported to [facility]. Lactic Acid Reviewed date:04/12/2023 09:21:42 PM Interpretation:Abnormal Performing Lab:[address] [phone] Notes/Report: Lactic Acid 2.5 0.5-2.0 mmol/L Critical value for test(s): LACTA Results called to and read back by: CHANTALE Person calling: LANEY Date: 04/12/23 Time: 1523 Lactic Acid-LAB USE ONLY Reviewed date:04/12/2023 09:21:42 PM Interpretation:Abnormal Performing Lab:[address] [phone] Notes/Report: Lactic Acid-LAB USE ONLY 2.1 0.5-2.0 mmol/L Critical value for test(s): LACTA Results called to and read back by:DEONDRE Person calling: SALIERD Date: 04/12/23 Time: 1743 Lactic Acid-LAB USE ONLY Reviewed date:04/12/2023 09:21:42 PM Interpretation:Abnormal Performing Lab:[address] [phone] Notes/Report: Lactic Acid-LAB USE ONLY 2.1 0.5-2.0 mmol/L Critical value for test(s): LACTA Results called to and read back by: LETICIA Person calling: [facility] Date: 04/12/23 Time:1953 UA ClnCatch+Micro w/rflx Cul t Reviewed date:04/12/2023 09:21:42 PM Interpretation:Abnormal Performing Lab:[address] [phone] Notes/Report: Urine, Clean Catch Color Urine Yellow Appearance Urine Cloudy PH 6.0 5.0-9.0 Glucose Urine UA 100 Negative mg/dL Urine Blood Small (1+) Negative Specific [place] - Urine 1.010 1.005-1.025 Urine Protein 30 (1+) Neg-Trace mg/dL Urine Ketones Negative Negative mg/dL Nitrite Urine Negative Negative Leukocyte Esterase Urine Large (3+) Negative RBC Urine 6-10 0-2 /HPF WBC Urine >50 0-5 /HPF Squamous Epithelial Cell Urine 0-2 0-2 /HPF Bacteria Urine 4+ None Seen Hyaline Casts Urine 0-2 0-2 /LPF Urine Culture Reviewed date:04/14/2023 04:54:46 PM Interpretation:Abnormal Performing Lab:[address] [phone] Notes/Report: Urine Culture Report Result Urine Culture > 100,000 cfu/ml Urine Culture Mixed bacterial ray a characteristic of Urine Culture urogenital contamination. Blood Culture (First) Reviewed date:04/17/2023 05:24:20 PM Interpretation:Negative Performing Lab:[address] [phone] Notes/Report: Blood Culture (First) No growth after 5 days. Blood Culture (Second) Reviewed date:04/18/2023 09:10:55 AM Interpretation:Negative Performing Lab:[facility], [address] [place] [phone] Notes/Report: Blood Culture (Second) No growth after 5 days. Complete Blood Count Auto Di ff Reviewed date:04/24/2023 06:35:30 PM Interpretation:Abnormal Performing Lab:[facility], [address] [place] [phone] Notes/Report: White Blood Count 9.3 4.8-10.8 X10*3/uL [...] t Reviewed date:04/24/2023 06:35:30 PM Interpretation:Abnormal Performing Lab:[facility], [address] [place] [phone] Notes/Report: Urine, Clean Catch Color Urine Yellow Appearance Urine Clear PH 6.0 5.0-9.0 Glucose Urine UA Negative Negative mg/dL Urine Blood Moderate (2+) Negative Specific [place] - Urine 1.010 1.005-1.025 Urine Protein Negative Neg-Trace mg/dL Urine Ketones Negative Negative mg/dL Nitrite Urine Negative Negative Leukocyte Esterase Urine Moderate (2+) Negative RBC Urine 11-20 0-2 /HPF WBC Urine 11-20 0-5 /HPF Squamous Epithelial Cell Urine 0-2 0-2 /HPF Bacteria Urine None Seen None Seen Hyaline Casts Urine 0-2 0-2 /LPF Comprehensive Met. Panel Reviewed date:04/24/2023 06:35:30 PM Interpretation:Abnormal Performing Lab:[facility], [address] [place] [phone] Notes/Report: Sodium 137 135-145 mmol/L Potassium 3.8 [...] Estimated Glomerular Filt Rate 37 NOTE: For -Martiniquais individuals, multiply the result by 1.210. Chronic [...] SARS-CoV2/FLU/RSV Reviewed date:04/24/2023 06:35:30 PM Interpretation:Negative Performing Lab:[facility], [address] [place] [phone] Notes/Report: Influenza A PCR NEGATIVE Negative Influenza [...] by authorized laboratories. Testing performed on the [employer] GeneXpert utilizing real-time RT-PCR. All SARS CoV2 and positive influenza A/B results are reported to [facility]. Lactic Acid Reviewed date:04/25/2023 11:17:08 AM Interpretation:Normal Performing Lab:[facility], [address] [place] [phone] Notes/Report: Lactic Acid 1.3 0.5-2.0 mmol/L Complete Blood Count Auto Di ff Reviewed date:04/25/2023 11:17:08 AM Interpretation:Abnormal Performing Lab:[facility], [address] [place] [phone] Notes/Report: White Blood Count 6.3 4.8-10.8 X10*3/uL [...] Panel Reviewed date:04/25/2023 11:17:08 AM Interpretation:Abnormal Performing Lab:[facility], [address] [place] [phone] Notes/Report: Sodium 138 135-145 mmol/L Potassium 4.0 [...] Estimated Glomerular Filt Rate 35 NOTE: For -Martiniquais individuals, multiply the result by 1.210. Chronic Kidney Disease: Estimated GFR < 60 mL/min/1.73m2 Severe Kidney Disease: Estimated GFR < 15 mL/min/1.73m2 Glucose Random 108 60-115 mg/dL Calcium 8.4 8.4-10.2 mg/dL Glucose, Whole Blood Reviewed date:04/25/2023 11:17:08 AM Interpretation:Abnormal Performing Lab:[facility], [address] [place] [phone] Notes/Report: Glucose, Whole Blood 121 60-115 mg/dL METER # : [id number] Urine Culture Reviewed date:04/25/2023 11:17:08 AM Interpretation:Abnormal Performing Lab:[facility], [address] [place] [phone] Notes/Report: O:STRVID Streptococcus viridans group Urine Culture Quant Urine Culture 50,000 to 100,000 cfu/mL Urine Culture CATH MANAGER TRUCK? Urine Culture Susceptibility not routinely performed on this isolate. Glucose, Whole Blood Reviewed date:04/25/2023 01:40:34 PM Interpretation:Normal Performing Lab:[facility], [address] [place] [phone] Notes/Report: Glucose, Whole Blood 104 60-115 mg/dL METER # : [id number] Glucose, Whole Blood Reviewed date:04/25/2023 08:36:54 PM Interpretation:Normal Performing Lab:[facility], [address] [place] [phone] Notes/Report: Glucose, Whole Blood 107 60-115 mg/dL METER # : [id number] Glucose, Whole Blood Reviewed date:04/25/2023 10:42:39 PM Interpretation:Abnormal Performing Lab:[facility], [address] [place] [phone] Notes/Report: Glucose, Whole Blood 141 60-115 mg/dL METER # : [id number] Hold Lav - Possible Hematolo gy Reviewed date:04/26/2023 09:08:07 AM Interpretation:Hold Performing Lab:[address] [phone] Notes/Report: Hold Lav - Possible Hematology SEE NOTE Specimen will be held untested for 8 hours. Call Hematology if testing is desired. Creatinine Reviewed date:04/26/2023 09:08:07 AM Interpretation:Normal Performing Lab:[facility], [address] [place] [phone] Notes/Report: Creatinine 1.27 0.5-1.4 mg/dL Creatinine Clr Calc Pharmacy 42.8 Provided height and weight: 162.56 cm, 97.8 kg. eGFR (calculated from the MDRD study equation) and eCrCl (calculated from the Cockcroft-Gault equation) are based on different parameters and may not yield comparable results. If eCrCl result is absurd, please check patient's height/weight. Estimated Glomerular Filt Rate 41 NOTE: For -[place]iqu[place] individuals, multiply the result by 1.210. Chronic Kidney Disease: Estimated GFR < 60 mL/min/1.73m2 Severe Kidney Disease: Estimated GFR < 15 mL/min/1.73m2 Glucose, Whole Blood Reviewed date:04/26/2023 09:08:07 AM Interpretation:Normal Performing Lab:[facility], [address] [place] [phone] Notes/Report: Glucose, Whole Blood 107 60-115 mg/dL METER # : [id number] Glucose, Whole Blood Reviewed date:04/26/2023 11:15:52 AM Interpretation:Normal Performing Lab:[facility], [address] [place] [phone] Notes/Report: Glucose, Whole Blood 112 60-115 mg/dL METER # : [id number] Glucose, Whole Blood Reviewed date:04/26/2023 04:23:30 PM Interpretation:Abnormal Performing Lab:[facility], [address] [place] [phone] Notes/Report: Glucose, Whole Blood 123 60-115 mg/dL METER # : [id number] Glucose, Whole Blood Reviewed date:04/27/2023 09:28:01 AM Interpretation:Abnormal Performing Lab:[facility], [address] [place] [phone] Notes/Report: Glucose, Whole Blood 143 60-115 mg/dL METER # : [id number] Vancomycin Random Reviewed date:04/27/2023 09:28:01 AM Interpretation:Low Performing Lab:[facility], [address] [place] [phone] Notes/Report: Vancomycin Random 11.6 15-20 mcg/mL Creatinine Reviewed date:04/27/2023 09:28:01 AM Interpretation:Abnormal Performing Lab:[facility], [address] [place] [phone] Notes/Report: Creatinine 1.30 0.5-1.4 mg/dL Creatinine Clr Calc Pharmacy 41.7 Provided height and weight: 162.56 cm, 97.8 kg. eGFR (calculated from the MDRD study equation) and eCrCl (calculated from the Cockcroft-Gault equation) are based on different parameters and may not yield comparable results. If eCrCl result is absurd, please check patient's height/weight. Estimated Glomerular Filt Rate 40 NOTE: For -[place]iqu[place] individuals, multiply the result by 1.210. Chronic Kidney Disease: Estimated GFR < 60 mL/min/1.73m2 Severe Kidney Disease: Estimated GFR < 15 mL/min/1.73m2 Glucose, Whole Blood Reviewed date:04/27/2023 09:28:01 AM Interpretation:Normal Performing Lab:[facility], [address] [place] [phone] Notes/Report: Glucose, Whole Blood 94 60-115 mg/dL METER # : [id number] Glucose, Whole Blood Reviewed date:04/27/2023 12:03:35 PM Interpretation:Abnormal Performing Lab:[facility], [address] [place] [phone] Notes/Report: Glucose, Whole Blood 135 60-115 mg/dL METER # : [id number] Glucose, Whole Blood Reviewed date:04/27/2023 05:12:58 PM Interpretation:Abnormal Performing Lab:[facility], [address] [place] [phone] Notes/Report: Glucose, Whole Blood 160 60-115 mg/dL METER # : [id number] Glucose, Whole Blood Reviewed date:04/28/2023 04:05:46 PM Interpretation:Abnormal Performing Lab:[facility], [address] [place] [phone] Notes/Report: Glucose, Whole Blood 128 60-115 mg/dL METER # : [id number] Vancomycin Random Reviewed date:04/28/2023 03:21:35 PM Interpretation:Low Performing Lab:[facility], [address] [place] [phone] Notes/Report: Vancomycin Random 12.0 15-20 mcg/mL Hold Lav - Possible Hematolo gy Reviewed date:04/28/2023 03:21:35 PM Interpretation:Hold Performing Lab:[facility], [address] [place] [phone] Notes/Report: Hold Lav - Possible Hematology SEE NOTE Specimen will be held untested for 8 hours. Call Hematology if testing is desired. Creatinine Reviewed date:04/28/2023 03:21:35 PM Interpretation:Normal Performing Lab:[facility], [address] [place] [phone] Notes/Report: Creatinine 1.02 0.5-1.4 mg/dL Creatinine Clr Calc Pharmacy 53.2 Provided height and weight: 162.56 cm, 97.8 kg. eGFR (calculated from the MDRD study equation) and eCrCl (calculated from the Cockcroft-Gault equation) are based on different parameters and may not yield comparable results. If eCrCl result is absurd, please check patient's height/weight. Estimated Glomerular Filt Rate 53 NOTE: For -[place]iqu[place] individuals, multiply the result by 1.210. Chronic Kidney Disease: Estimated GFR < 60 mL/min/1.73m2 Severe Kidney Disease: Estimated GFR < 15 mL/min/1.73m2 Glucose, Whole Blood Reviewed date:04/28/2023 03:21:35 PM Interpretation:Normal Performing Lab:[facility], [address] [place] [phone] Notes/Report: Glucose, Whole Blood 90 60-115 mg/dL METER # : [id number] Glucose, Whole Blood Reviewed date:04/28/2023 03:21:35 PM Interpretation:Normal Performing Lab:[facility], [address] [place] [phone] Notes/Report: Glucose, Whole Blood 101 60-115 mg/dL METER # : [id number] Glucose, Whole Blood Reviewed date:04/28/2023 03:21:35 PM Interpretation:Abnormal Performing Lab:[facility], [address] [place] [phone] Notes/Report: Glucose, Whole Blood 212 60-115 mg/dL METER # : [id number] Glucose, Whole Blood Reviewed date:04/28/2023 11:20:44 PM Interpretation:Normal Performing Lab:[facility], [address] [place] [phone] Notes/Report: Glucose, Whole Blood 93 60-115 mg/dL METER # : [id number] Glucose, Whole Blood Reviewed date:04/28/2023 11:20:44 PM Interpretation:Abnormal Performing Lab:[facility], [address] [place] [phone] Notes/Report: Glucose, Whole Blood 137 60-115 mg/dL METER # : [id number] Hold Lav - Possible Hematolo gy Reviewed date:04/29/2023 09:29:12 AM Interpretation:Hold Performing Lab:[facility], [address] [place] [phone] Notes/Report: Hold Lav - Possible Hematology SEE NOTE Specimen will be held untested for 8 hours. Call Hematology if testing is desired. Creatinine Reviewed date:04/29/2023 09:29:12 AM Interpretation:Abnormal Performing Lab:[facility], [address] [place] [phone] Notes/Report: Creatinine 1.26 0.5-1.4 mg/dL Creatinine Clr Calc Pharmacy 43.1 Provided height and weight: 162.56 cm, 97.8 kg. eGFR (calculated from the MDRD study equation) and eCrCl (calculated from the Cockcroft-Gault equation) are based on different parameters and may not yield comparable results. If eCrCl result is absurd, please check patient's height/weight. Estimated Glomerular Filt Rate 41 NOTE: For -[place]iqu[place] individuals, multiply the result by 1.210. Chronic Kidney Disease: Estimated GFR < 60 mL/min/1.73m2 Severe Kidney Disease: Estimated GFR < 15 mL/min/1.73m2 Glucose, Whole Blood Reviewed date:04/29/2023 09:29:12 AM Interpretation:Normal Performing Lab:[facility], [address] [place] [phone] Notes/Report: Glucose, Whole Blood 107 60-115 mg/dL METER # : [id number] Glucose, Whole Blood Reviewed date:04/29/2023 11:56:17 AM Interpretation:Abnormal Performing Lab:[facility], [address] [place] [phone] Notes/Report: Glucose, Whole Blood 123 60-115 mg/dL METER # : [id number] Pathology Reviewed date:04/29/2023 04:01:14 PM Interpretation:Benign Performing Lab:[facility], [address] [place] [phone] Notes/Report: Glucose, Whole Blood Reviewed date:04/30/2023 12:50:15 PM Interpretation:Abnormal Performing Lab:[facility], [address] [place] [phone] Notes/Report: Glucose, Whole Blood 134 60-115 mg/dL METER # : [id number] Glucose, Whole Blood Reviewed date:04/30/2023 12:50:15 PM Interpretation:Abnormal Performing Lab:[facility], [address] [place] [phone] Notes/Report: Glucose, Whole Blood 142 60-115 mg/dL METER # : [id number] Blood Culture < 90 LBS Reviewed date:04/30/2023 12:49:02 PM Interpretation:Negative Performing Lab:[facility], [address] [place] [phone] Notes/Report: Blood Culture X1 No growth after 5 days. Hold Lav - Possible Hematolo gy Reviewed date:04/30/2023 12:49:22 PM Interpretation:Hold Performing Lab:[facility], [address] [place] [phone] Notes/Report: Hold Lav - Possible Hematology SEE NOTE Specimen will be held untested for 8 hours. Call Hematology if testing is desired. Creatinine Reviewed date:04/30/2023 12:50:15 PM Interpretation:Abnormal Performing Lab:[facility], [address] [place] [phone] Notes/Report: Creatinine 1.03 0.5-1.4 mg/dL Creatinine Clr Calc Pharmacy 52.7 Provided height and weight: 162.56 cm, 97.8 kg. eGFR (calculated from the MDRD study equation) and eCrCl (calculated from the Cockcroft-Gault equation) are based on different parameters and may not yield comparable results. If eCrCl result is absurd, please check patient's height/weight. Estimated Glomerular Filt Rate 52 NOTE: For -Martiniqu[place] individuals, multiply the result by 1.210. Chronic Kidney Disease: Estimated GFR < 60 mL/min/1.73m2 Severe Kidney Disease: Estimated GFR < 15 mL/min/1.73m2 Glucose, Whole Blood Reviewed date:04/30/2023 12:50:15 PM Interpretation:Normal Performing Lab:[facility], [address] [place] [phone] Notes/Report: Glucose, Whole Blood 99 60-115 mg/dL METER # : [id number] Complete Blood Count Auto Di ff Reviewed date:07/03/2023 11:45:43 AM Interpretation:Normal Performing Lab:[facility], [address] [place] [phone] Notes/Report: White Blood Count 8.5 4.8-10.8 X10*3/uL [...] Cult Reviewed date:07/03/2023 11:45:43 AM Interpretation:Abnormal Performing Lab:[facility], [address] [place] [phone] Notes/Report: [id number] Urine, Clean Catch Color Urine Yellow Appearance Urine Cloudy PH 6.0 5.0-9.0 Glucose Urine UA 100 Negative mg/dL Urine Blood Large (3+) Negative Specific [place] - Urine 1.015 1.005-1.025 Urine Protein 30 (1+) Neg-Trace mg/dL Urine Ketones Negative Negative mg/dL Nitrite Urine Negative Negative Leukocyte Esterase Urine Large (3+) Negative UA ClnCatch+Micro w/rflx Cul t Reviewed date:07/03/2023 11:45:43 AM Interpretation:Abnormal Performing Lab:[facility], [address] [place] [phone] Notes/Report: [id number] Urine, Clean Catch Color Urine Yellow Appearance Urine Cloudy PH 6.0 5.0-9.0 Glucose Urine UA 100 Negative mg/dL Urine Blood Large (3+) Negative Specific [place] - Urine 1.015 1.005-1.025 Urine Protein 30 (1+) Neg-Trace mg/dL Urine Ketones Negative Negative mg/dL Nitrite Urine Negative Negative Leukocyte Esterase Urine Large (3+) Negative RBC Urine >20 0-2 /HPF WBC Urine >50 0-5 /HPF Squamous Epithelial Cell Urine 0-2 0-2 /HPF Bacteria Urine None Seen None Seen Hyaline Casts Urine 0-2 0-2 /LPF Liver Panel Reviewed date:07/03/2023 11:43:48 AM Interpretation:Normal Performing Lab:[facility], [address] [place] [phone] Notes/Report: Bilirubin Total 0.4 0.0-1.0 mg/dL Bilirubin Direct 0.2 0.0-0.5 mg/dL Aspartate Amino Transferase 29 5-31 U/L Alanine Aminotransferase 26 0-31 U/L Total Protein 7.9 6.5-8.0 g/dL Albumin Level 3.8 3.5-5.0 g/dL Alkaline Phosphatase 64 39-117 U/L Basic Metabolic Panel Reviewed date:07/03/2023 11:44:40 AM Interpretation:Abnormal Performing Lab:[facility], [address] [place] [phone] Notes/Report: Sodium 138 135-145 mmol/L Potassium 4.3 [...] Estimated Glomerular Filt Rate 31 NOTE: For -Martiniquais individuals, multiply the result by 1.210. Chronic Kidney Disease: Estimated GFR < 60 mL/min/1.73m2 Severe Kidney Disease: Estimated GFR < 15 mL/min/1.73m2 Glucose Random 172 60-115 mg/dL Calcium 9.4 8.4-10.2 mg/dL Urine Culture Reviewed date:07/04/2023 10:16:40 AM Interpretation:Abnormal Performing Lab:[facility], [address] [place] [phone] Notes/Report: O:PROMIR Proteus mirabilis Urine Culture Quant Urine Culture 10,000 to 50,000 cfu/mL Ampicillin <=2 Ceftriaxone <=0.25 Gentamicin <=1 Nitrofurantoin 128 Trimethoprim/Sulfamethox azole <=20 Bacterial Vaginosis Panel Reviewed date:07/06/2023 05:45:16 PM Interpretation:Negative Performing Lab:[facility], [address] [place] [phone] Notes/Report: Trichomonas vaginalis PCR NOT DETECTED Not [...] Culture Reviewed date:07/21/2023 11:53:01 AM Interpretation:Abnormal Performing Lab:[facility], [address] [place] [phone] Notes/Report: Urine Culture Report Result Urine Culture < 10,000 cfu/ml Urinalysis and Microscopic Reviewed date:07/20/2023 09:57:35 AM Interpretation:Abnormal Performing Lab:[facility], [address] [place] [phone] Notes/Report: Color Urine Yellow Appearance Urine Clear PH 6.0 5.0-9.0 Glucose Urine UA Negative Negative mg/dL Urine Blood Moderate (2+) Negative Specific [place] - Urine <= 1.005 1.005-1.025 Urine Protein [...] t Reviewed date:07/22/2023 09:03:33 AM Interpretation:Abnormal Performing Lab:[facility], [address] [place] [phone] Notes/Report: 0118 Urine, Clean Catch Color Urine Red Appearance Urine Turbid PH 5.5 5.0-9.0 Glucose Urine UA Negative Negative mg/dL Urine Blood Large (3+) Negative Specific [place] - Urine 1.010 1.005-1.025 Urine Protein 100 (2+) Neg-Trace mg/dL Urine Ketones Negative Negative mg/dL Nitrite Urine Negative Negative Leukocyte Esterase Urine Large (3+) Negative RBC Urine >20 0-2 /HPF WBC Urine >50 0-5 /HPF Squamous Epithelial Cell Urine 0-2 0-2 /HPF Bacteria Urine None Seen None Seen Hyaline Casts Urine 0-2 0-2 /LPF Urine Culture Reviewed date:07/23/2023 10:17:54 PM Interpretation:Abnormal Performing Lab:[facility], [address] [place] [phone] Notes/Report: Urine Culture Report Result Urine Culture 10,000 to 50,000 cfu/ml Urine Culture Mixed bacterial ray a characteristic of Urine Culture urogenital contamination. C Reactive Protein Reviewed date:08/16/2023 04:50:12 PM Interpretation:Abnormal Performing Lab:[address] [phone] Notes/Report: C Reactive Protein 1.64 < or = 0.50 mg/dL Basic Metabolic Panel Reviewed date:08/16/2023 04:50:12 PM Interpretation:Abnormal Performing Lab:[address] [phone] Notes/Report: Sodium 137 135-145 mmol/L Potassium 3.8 3.3-5.1 mmol/L Chloride 106 96-108 mmol/L Carbon Dioxide 23 22-29 mmol/L Anion Gap 12 12-20 Blood Urea Nitrogen 21 9-16 mg/dL Creatinine 1.34 0.5-1.4 mg/dL Estimated Glomerular Filt Rate 38 NOTE: For -[place] individuals, multiply the result by 1.210. Chronic Kidney Disease: Estimated GFR < 60 mL/min/1.73m2 Severe Kidney Disease: Estimated GFR < 15 mL/min/1.73m2 Glucose Random 153 60-115 mg/dL Calcium 9.2 8.4-10.2 mg/dL Complete Blood Count Auto Di ff Reviewed date:08/16/2023 04:50:12 PM Interpretation:Normal Performing Lab:[address] [phone] Notes/Report: White Blood Count 9.0 4.8-10.8 X10*3/uL [...] te Reviewed date:08/17/2023 09:09:14 AM Interpretation:Abnormal Performing Lab:[address] [phone] Notes/Report: Erythrocyte Sedimentation Rate 51 0-20 MM/HR Patients with polycythemia and many hemoglobin abnormalities may have depressed sed rates whereas patients with anemia may have elevated sed rates. UA ClnCatch+Micro w/rflx Cul t Reviewed date:10/03/2023 04:53:39 PM Interpretation:Abnormal Performing Lab:[address] [phone] Notes/Report: [id number] 1535 Urine, Clean Catch Color Urine Yellow Appearance Urine Turbid PH 6.5 5.0-9.0 Glucose Urine UA 100 Negative mg/dL Urine Blood Moderate (2+) Negative Specific [place] - Urine 1.015 1.005-1.025 Urine Protein 100 [...] ff Reviewed date:10/03/2023 04:53:39 PM Interpretation:Abnormal Performing Lab:[facility], [address] [place] [phone] Notes/Report: White Blood Count 12.0 4.8-10.8 X10*3/uL [...] Panel Reviewed date:10/03/2023 04:53:39 PM Interpretation:Abnormal Performing Lab:[facility], [address] [place] [phone] Notes/Report: Sodium 136 135-145 mmol/L Potassium 4.3 [...] Estimated Glomerular Filt Rate 27 NOTE: For -Martiniquais individuals, multiply the result by 1.210. Chronic [...] Panel Reviewed date:10/03/2023 04:53:39 PM Interpretation:Normal Performing Lab:[facility], [address] [place] [phone] Notes/Report: Bilirubin Direct 0.4 0.0-0.5 mg/dL Slight Hem olysis Lipase Reviewed date:10/03/2023 04:53:39 PM Interpretation:Normal Performing Lab:[facility], [address] [place] [phone] Notes/Report: Lipase 12 8-78 U/L SARS-CoV2/FLU/RSV Reviewed date:10/03/2023 04:54:02 PM Interpretation:Negative Performing Lab:[address] [phone] Notes/Report: Influenza A PCR NEGATIVE Negative Influenza [...] by authorized laboratories. Testing performed on the [employer] GeneXpert utilizing real-time RT-PCR. All SARS CoV2 and positive influenza A/B results are reported to [facility]. Lactic Acid Reviewed date:10/04/2023 09:13:26 AM Interpretation:Abnormal Performing Lab:[address] [phone] Notes/Report: Lactic Acid 2.5 0.5-2.0 mmol/L Critical value for test(s): LACTIC ACID Results called to and read back by:ANDREIA Person calling:TILA Date:10/04/23 Time:0022 Lactic Acid-LAB USE ONLY Reviewed date:10/04/2023 09:13:26 AM Interpretation:Normal Performing Lab:[facility], [address] [place] [phone] Notes/Report: Lactic Acid-LAB USE ONLY 1.1 0.5-2.0 mmol/L Glucose, Whole Blood Reviewed date:10/04/2023 09:13:26 AM Interpretation:Abnormal Performing Lab:[address] [phone] Notes/Report: Glucose, Whole Blood 117 60-115 mg/dL METER # : [id number] Glucose, Whole Blood Reviewed date:10/04/2023 10:09:31 AM Interpretation:Abnormal Performing Lab:[facility], [address] [place] [phone] Notes/Report: Glucose, Whole Blood 128 60-115 mg/dL METER # : [id number] Complete Blood Count Auto Di ff Reviewed date:10/04/2023 10:28:57 AM Interpretation:Abnormal Performing Lab:[facility], [address] [place] [phone] Notes/Report: White Blood Count 9.6 4.8-10.8 X10*3/uL [...] Panel Reviewed date:10/04/2023 10:51:28 AM Interpretation:Abnormal Performing Lab:[facility], [address] [place] [phone] Notes/Report: Sodium 137 135-145 mmol/L Potassium 4.2 [...] Estimated Glomerular Filt Rate 19 NOTE: For -Martiniquais individuals, multiply the result by 1.210. Chronic Kidney Disease: Estimated GFR < 60 mL/min/1.73m2 Severe Kidney Disease: Estimated GFR < 15 mL/min/1.73m2 Glucose Random 130 60-115 mg/dL Calcium 8.8 8.4-10.2 mg/dL Electrolytes Urine Reviewed date:10/04/2023 03:23:13 PM Interpretation:Normal Performing Lab:[facility], [address] [place] [phone] Notes/Report: Chloride Urine Random 41.0 Sodium Urine Random 61.0 Potassium Urine Random 42.2 Protein Creatinine Ratio, Ur Reviewed date:10/04/2023 03:23:13 PM Interpretation:Abnormal Performing Lab:[facility], [address] [place] [phone] Notes/Report: Creatinine Urine 158.74 Total Protein Urine Random 189 <12 mg/dL Protein/Creatinine Ratio, Ur 1.19 <0.2 The spot urine protein:creatinine ratio may increase to 0.3 during normal . Glucose, Whole Blood Reviewed date:10/04/2023 03:23:13 PM Interpretation:Abnormal Performing Lab:[facility], [address] [place] [phone] Notes/Report: Glucose, Whole Blood 135 60-115 mg/dL METER # : [id number] Glucose, Whole Blood Reviewed date:10/04/2023 10:27:56 PM Interpretation:Abnormal Performing Lab:[facility], [address] [place] [phone] Notes/Report: Glucose, Whole Blood 137 60-115 mg/dL METER # : [id number] Creatinine Urine Reviewed date:10/05/2023 09:45:35 AM Interpretation:Normal Performing Lab:[facility], [address] [place] [phone] Notes/Report: Creatinine Urine 41.25 Sodium Urine Random Reviewed date:10/05/2023 09:45:35 AM Interpretation:Normal Performing Lab:[facility], [address] [place] [phone] Notes/Report: Sodium Urine Random 55.0 Total Protein Urine Random Reviewed date:10/05/2023 09:45:35 AM Interpretation:Abnormal Performing Lab:[facility], [address] [place] [phone] Notes/Report: Total Protein Urine Random 19 <12 mg/dL Glucose, Whole Blood Reviewed date:10/05/2023 09:45:35 AM Interpretation:Normal Performing Lab:[facility], [address] [place] [phone] Notes/Report: Glucose, Whole Blood 98 60-115 mg/dL METER # : [id number] Glucose, Whole Blood Reviewed date:10/05/2023 09:41:35 AM Interpretation:Normal Performing Lab:[facility], [address] [place] [phone] Notes/Report: Glucose, Whole Blood 107 60-115 mg/dL METER # : [id number] Complete Blood Count no Diff Reviewed date:10/05/2023 09:45:35 AM Interpretation:Abnormal Performing Lab:[facility], [address] [place] [phone] Notes/Report: White Blood Count 6.3 4.8-10.8 X10*3/uL [...] Panel Reviewed date:10/05/2023 09:45:35 AM Interpretation:Abnormal Performing Lab:[address] [address] Notes/Report: Sodium 137 135-145 mmol/L Potassium 4.6 [...] Estimated Glomerular Filt Rate 23 NOTE: For -Martiniquais individuals, multiply the result by 1.210. Chronic Kidney Disease: Estimated GFR < 60 mL/min/1.73m2 Severe Kidney Disease: Estimated GFR < 15 mL/min/1.73m2 Glucose Random 88 60-115 mg/dL Calcium 9.2 8.4-10.2 mg/dL Urine Culture Reviewed date:10/05/2023 09:45:35 AM Interpretation:Abnormal Performing Lab:[address] [phone] Notes/Report: Urine Culture Report Result Urine Culture > 100,000 cfu/ml Urine Culture Mixed bacterial ray a characteristic of Urine Culture urogenital contamination. Glucose, Whole Blood Reviewed date:10/05/2023 09:53:46 AM Interpretation:Abnormal Performing Lab:[address], [place] [address] Notes/Report: Glucose, Whole Blood 120 60-115 mg/dL METER # : [id number] Glucose, Whole Blood Reviewed date:10/05/2023 05:55:06 PM Interpretation:Normal Performing Lab:[facility], [address] [place] [phone] Notes/Report: Glucose, Whole Blood 108 60-115 mg/dL METER # : [id number] Glucose, Whole Blood Reviewed date:10/06/2023 04:30:11 PM Interpretation:Normal Performing Lab:[facility], [address] [place] [phone] Notes/Report: Glucose, Whole Blood 77 60-115 mg/dL METER # : [id number] Glucose, Whole Blood Reviewed date:10/06/2023 04:30:11 PM Interpretation:Normal Performing Lab:[facility], [address] [place] [phone] Notes/Report: Glucose, Whole Blood 97 60-115 mg/dL METER # : [id number] Complete Blood Count no Diff Reviewed date:10/06/2023 04:30:11 PM Interpretation:Abnormal Performing Lab:[facility], [address] [place] [phone] Notes/Report: White Blood Count 5.0 4.8-10.8 X10*3/uL [...] g Reviewed date:10/06/2023 04:30:11 PM Interpretation:Abnormal Performing Lab:[facility], [address] [place] [phone] Notes/Report: Sodium 139 135-145 mmol/L Potassium 4.1 [...] Estimated Glomerular Filt Rate 36 NOTE: For -Martiniquais individuals, multiply the result by 1.210. Chronic Kidney Disease: Estimated GFR < 60 mL/min/1.73m2 Severe Kidney Disease: Estimated GFR < 15 mL/min/1.73m2 Glucose Fasting 79 60-99 mg/dL Calcium 8.2 8.4-10.2 mg/dL Type and Screen Reviewed date:10/06/2023 04:30:11 PM Interpretation:Negative Performing Lab:[facility], [address] [place] [phone] Notes/Report: Blood Type OP Antibody Screen NEGATIVE Glucose, Whole Blood Reviewed date:10/06/2023 04:30:11 PM Interpretation:Normal Performing Lab:[facility], [address] [place] [phone] Notes/Report: Glucose, Whole Blood 96 60-115 mg/dL METER # : [id number] Blood Culture (Second) Reviewed date:10/06/2023 04:30:11 PM Interpretation:Positive Performing Lab:[address] [phone] Notes/Report: Blood Culture (Second) Results of Blood Culture gram stain sent by a secure message and confirmed by DR VILLANUEVA on 10/04/23 at 2133 by RUBEN. Blood Culture (Second) Results of Blood Culture gram stain sent by a secure message and confirmed by DR VILLANUEVA on 10/04/232132 by KATYA. Blood Culture (Second) Results of Blood Culture gram stain sent by a secure message and confirmed by DR VILLANUEVA on 10/04/23 at 2132 [facility] Blood Culture (Second) Results of Blood Culture gram stain sent by a secure message and confirmed by DR VILLANUEVA on 10/04/232132 by KATYA. Blood Culture (Second) Results of Blood Culture gram stain sent by a secure message and confirmed by DR VILLANUEVA on 10/04/232132 by KATYA. Blood Culture (Second) Results of Blood Culture gram stain sent by a secure message and confirmed by DR VILLANUEVA on 10/04/232132 by KATYA. Blood Culture (Second) Results of Blood Culture gram stain sent by a secure message and confirmed by DR VILLANUEVA on 10/04/232132 by KATYA. Blood Culture (Second) Results of Blood Culture gram stain sent by a secure message and confirmed by DR VILLANUEVA on 10/04/232132 by [facility] Blood Culture (Second) Results of Blood Culture gram stain sent by a secure message and confirmed by DR VILLANUEVA on 10/04/232132 by KATYA. Blood Culture (Second) BC Positive/Drawn Results of Blood Culture gram stain sent by a secure message and confirmed by DR VILLANUEVA on 10/04/232132 by KATYA. Blood Culture (Second) 1 set positive/2 sets drawn Results of Blood Culture gram stain sent by a secure message and confirmed by DR VILLANUEVA on 10/04/232132 by TOREY. Blood Culture (Second) GS - on external report Results of Blood Culture gram stain sent by a secure message and confirmed by DR VILLANUEVA on 10/04/232132 by TOREY. Blood Culture (Second) Gram-positive andriy ci in clusters Results of Blood Culture gram stain sent by a secure message and confirmed by DR VILLANUEVA on 10/04/232132 by KATYA. Blood Culture (Second) Review Comment Results of Blood Culture gram stain sent by a secure message and confirmed by DR VILLANUEVA on 10/04/232132 by RUBEN. Blood Culture (Second) Gram stain review ed by a Environmental Engineering Professor Results of Blood Culture gram stain sent by a secure message and confirmed by DR VILLANUEVA on 10/04/23 at 2132 by RUBEN. O:STANEG Coag negative Staphylococcus Blood Culture (Second) CBLD BISHNU comment Results of Blood Culture gram stain sent by a secure message and confirmed by DR VILLANUEVA on 10/04/23 at 3 by RUBEN. Blood Culture (Second) Unlikely pathogen ; call Micro if full workup indicated. Results of Blood Culture gram stain sent by a secure message and confirmed by DR VILLANUEVA on 10/04/23 at 2132 by RUBEN. Complement C3 Reviewed date:10/06/2023 04:30:11 PM Interpretation:Normal Performing Lab:[address] [phone] Notes/Report: Complement C3 147 83-193 mg/dL THIS TEST WAS PERFORMED AT: [facility] [address] [place] [phone] MIGUEL STERN MD Complement C4 Reviewed date:10/06/2023 04:30:11 PM Interpretation:Normal Performing Lab:[address] [phone] Notes/Report: Complement C4 20 15-57 mg/dL THIS TEST WAS PERFORMED AT: [facility] [address] [place] [phone] MIGUEL STERN MD Glucose, Whole Blood Reviewed date:10/06/2023 04:30:11 PM Interpretation:Abnormal Performing Lab:[facility], [address] [place] [phone] Notes/Report: Glucose, Whole Blood 167 60-115 mg/dL METER # : [id number] Glucose, Whole Blood Reviewed date:10/06/2023 09:53:01 PM Interpretation:Abnormal Performing Lab:[address] [phone] Notes/Report: Glucose, Whole Blood 150 60-115 mg/dL METER # : [id number] Vancomycin Random Reviewed date:10/06/2023 09:53:46 PM Interpretation:Subtherapeutic Performing Lab:[facility], [address] [place] [phone] Notes/Report: Vancomycin Random 13.1 15-20 mcg/mL Glucose, Whole Blood Reviewed date:10/07/2023 09:06:02 AM Interpretation:Abnormal Performing Lab:[facility], [address] [place] [phone] Notes/Report: Glucose, Whole Blood 123 60-115 mg/dL METER # : [id number] Complete Blood Count no Diff Reviewed date:10/07/2023 09:06:02 AM Interpretation:Abnormal Performing Lab:[facility], [address] [place] [phone] Notes/Report: White Blood Count 14.6 4.8-10.8 X10*3/uL [...] g Reviewed date:10/07/2023 09:06:02 AM Interpretation:Abnormal Performing Lab:[facility], [address] [place] [phone] Notes/Report: Sodium 137 135-145 mmol/L Potassium 4.7 [...] Estimated Glomerular Filt Rate 35 NOTE: For -Martiniquais individuals, multiply the result by 1.210. Chronic Kidney Disease: Estimated GFR < 60 mL/min/1.73m2 Severe Kidney Disease: Estimated GFR < 15 mL/min/1.73m2 Glucose Fasting 111 60-99 mg/dL A fasting glucose from 100-125 mg/dl is considered impaired (pre-diabetes). Calcium 8.4 8.4-10.2 mg/dL Glucose, Whole Blood Reviewed date:10/07/2023 12:18:24 PM Interpretation:Abnormal Performing Lab:[facility], [address] [place] [phone] Notes/Report: Glucose, Whole Blood 119 60-115 mg/dL METER # : [id number] Glucose, Whole Blood Reviewed date:10/07/2023 04:23:31 PM Interpretation:Normal Performing Lab:[facility], [address] [place] [phone] Notes/Report: Glucose, Whole Blood 115 60-115 mg/dL METER # : [id number] Glucose, Whole Blood Reviewed date:10/08/2023 10:02:02 AM Interpretation:Abnormal Performing Lab:[facility], [address] [place] [phone] Notes/Report: Glucose, Whole Blood 154 60-115 mg/dL METER # : [id number] Basic Metabolic Panel Fastin g Reviewed date:10/08/2023 10:02:02 AM Interpretation:Abnormal Performing Lab:[facility], [address] [place] [phone] Notes/Report: PT with nurse. Will come back [...] Estimated Glomerular Filt Rate 33 NOTE: For -Martiniquais individuals, multiply the result by 1.210. Chronic Kidney Disease: Estimated GFR < 60 mL/min/1.73m2 Severe Kidney Disease: Estimated GFR < 15 mL/min/1.73m2 Glucose Fasting 102 60-99 mg/dL A fasting glucose from 100-125 mg/dl is considered impaired (pre-diabetes). Calcium 8.3 8.4-10.2 mg/dL Magnesium Reviewed date:10/08/2023 10:02:02 AM Interpretation:Normal Performing Lab:[facility], [address] [place] [phone] Notes/Report: PT with nurse. Will come back @ 06:03 caronm Magnesium 1.7 1.6-2.6 mg/dL Complete Blood Count no Diff Reviewed date:10/08/2023 10:02:02 AM Interpretation:Abnormal Performing Lab:[facility], [address] [place] [phone] Notes/Report: PT with nurse. Will come back [...] Blood Reviewed date:10/08/2023 10:02:02 AM Interpretation:Normal Performing Lab:[facility], [address] [place] [phone] Notes/Report: Glucose, Whole Blood 95 60-115 mg/dL METER # : [id number] Glucose, Whole Blood Reviewed date:10/09/2023 09:27:19 AM Interpretation:Abnormal Performing Lab:[facility], [address] [place] [phone] Notes/Report: Glucose, Whole Blood 142 60-115 mg/dL METER # : [id number] Glucose, Whole Blood Reviewed date:10/09/2023 09:27:19 AM Interpretation:Abnormal Performing Lab:[facility], [address] [place] [phone] Notes/Report: Glucose, Whole Blood 136 60-115 mg/dL METER # : [id number] Glucose, Whole Blood Reviewed date:10/09/2023 09:27:19 AM Interpretation:Abnormal Performing Lab:[facility], [address] [place] [phone] Notes/Report: Glucose, Whole Blood 154 60-115 mg/dL METER # : [id number] Blood Culture (First) Reviewed date:10/09/2023 09:27:19 AM Interpretation:Negative Performing Lab:[facility], [address] [place] [phone] Notes/Report: Blood Culture (First) No growth after 5 days. Glucose, Whole Blood Reviewed date:10/09/2023 09:27:19 AM Interpretation:Abnormal Performing Lab:[facility], [address] [place] [phone] Notes/Report: Glucose, Whole Blood 119 60-115 mg/dL METER # : [id number] Complete Blood Count no Diff Reviewed date:10/09/2023 09:27:19 AM Interpretation:Abnormal Performing Lab:[facility], [address] [place] [phone] Notes/Report: White Blood Count 13.5 4.8-10.8 X10*3/uL [...] g Reviewed date:10/09/2023 09:27:19 AM Interpretation:Abnormal Performing Lab:[facility], [address] [place] [phone] Notes/Report: Sodium 134 135-145 mmol/L Potassium 3.6 [...] Estimated Glomerular Filt Rate 38 NOTE: For -Martiniquais individuals, multiply the result by 1.210. Chronic Kidney Disease: Estimated GFR < 60 mL/min/1.73m2 Severe Kidney Disease: Estimated GFR < 15 mL/min/1.73m2 Glucose Fasting 126 60-99 mg/dL A fasting glucose of 126 mg/dl or greater on more than one occasion is considered diagnostic of diabetes. Calcium 8.1 8.4-10.2 mg/dL Glucose, Whole Blood Reviewed date:10/09/2023 06:04:03 PM Interpretation:Abnormal Performing Lab:[facility], [address] [place] [phone] Notes/Report: Glucose, Whole Blood 151 60-115 mg/dL METER # : [id number] Glucose, Whole Blood Reviewed date:10/09/2023 06:03:42 PM Interpretation:Abnormal Performing Lab:[facility], [address] [place] [phone] Notes/Report: Glucose, Whole Blood 151 60-115 mg/dL METER # : [id number] Glucose, Whole Blood Reviewed date:10/10/2023 10:54:27 AM Interpretation:Abnormal Performing Lab:[facility], [address] [place] [phone] Notes/Report: Glucose, Whole Blood 156 60-115 mg/dL METER # : [id number] Glucose, Whole Blood Reviewed date:10/10/2023 10:54:27 AM Interpretation:Abnormal Performing Lab:[facility], [address] [place] [phone] Notes/Report: Glucose, Whole Blood 152 60-115 mg/dL METER # : [id number] Glucose, Whole Blood Reviewed date:10/10/2023 12:24:10 PM Interpretation:Abnormal Performing Lab:[facility], [address] [place] [phone] Notes/Report: Glucose, Whole Blood 170 60-115 mg/dL METER # : [id number] Glucose, Whole Blood Reviewed date:10/10/2023 07:37:21 PM Interpretation:Abnormal Performing Lab:[facility], [address] [place] [phone] Notes/Report: Glucose, Whole Blood 146 60-115 mg/dL METER # : [id number] Glucose, Whole Blood Reviewed date:10/10/2023 09:13:04 PM Interpretation:Abnormal Performing Lab:[facility], [address] [place] [phone] Notes/Report: Glucose, Whole Blood 180 60-115 mg/dL METER # : [id number] Glucose, Whole Blood Reviewed date:10/11/2023 09:07:30 AM Interpretation:Normal Performing Lab:[facility], [address] [place] [phone] Notes/Report: Glucose, Whole Blood 104 60-115 mg/dL METER # : [id number] Glucose, Whole Blood Reviewed date:10/11/2023 11:43:46 AM Interpretation:Abnormal Performing Lab:[facility], [address] [place] [phone] Notes/Report: Glucose, Whole Blood 206 60-115 mg/dL METER # : [id number] Pathology Reviewed date:10/12/2023 10:47:27 AM Interpretation:Benign Performing Lab:[facility], [address] [place] [phone] Notes/Report: Immunofixation Pnl, Serum Reviewed date:10/13/2023 10:11:48 PM Interpretation:Abnormal Performing Lab:[facility], [address] [place] [phone] Notes/Report: IgG [phone] mg/dL IgA 415 70-320 mg/dL IgM 98 50-300 mg/dL THIS TEST WAS PERFORMED AT: [facility] [address] [place] [phone] MIGUEL STERN MD Immunofixation Interpretation SEE NOTE No monoclonal protei ns detected. Anti Glomerular Basement Mem b Reviewed date:10/13/2023 10:11:17 PM Interpretation:Negative Performing Lab:[facility], [address] [place] [phone] Notes/Report: Anti Glomerular Basement Memb <1.0 Value Interpretation ----- <1.0 No Antibody Detected > or = 1.0 Antibody Detected THIS TEST WAS PERFORMED AT: [facility] [address] [place] [phone] MIGUEL STERN MD ANCA Vasculitides Reviewed date:10/13/2023 10:10:44 PM Interpretation:Negative Performing Lab:[address] [phone] Notes/Report: Myeloperoxidase Antibody <1.0 Value Interpretation ----- [...] = 1.0 Antibody Detected Autoantibodies to proteinase-3 (AL-3) are accepted as characteristic for granulomatosis with polyangiitis (GPA, Shirley's), and are detectable in 95% of the histologically proven cases. The cytoplasmic IFA pattern, (c-ANCA), is based largely on autoantibody to AL-3 which serves as the primary antigen. These autoantibodies are present in active disease. THIS TEST WAS PERFORMED AT: [facility] [address] [place] [phone] MIGUEL STERN MD Complete Blood Count Auto Di ff Reviewed date:12/09/2023 02:19:18 PM Interpretation:Abnormal Performing Lab:[facility], [address] [place] [phone] Notes/Report: White Blood Count 10.0 4.8-10.8 X10*3/uL [...] A1c Reviewed date:12/09/2023 02:19:02 PM Interpretation:Normal Performing Lab:[facility], [address] [place] [phone] Notes/Report: Hemoglobin A1c % 5.4 <6.0 % [...] average glucose, using the formula of the K7R-Clmdiny Average Glucose study (ADAG), Diabetes Care, Vol.31,#8, Sep. 2007 Comprehensive [place]. Panel Fa Reviewed date:12/09/2023 03:47:51 PM Interpretation:Abnormal Performing Lab:[facility], [address] [place] [phone] Notes/Report: Sodium 137 135-145 mmol/L Potassium 4.1 3.3-5.1 mmol/L Chloride 106 96-108 mmol/L Carbon Dioxide 19 22-29 mmol/L Anion Gap 16 12-20 Blood Urea Nitrogen 16 9-16 mg/dL Creatinine 1.16 0.5-1.4 mg/dL Estimated Glomerular Filt Rate 45 NOTE: For -Martiniquais individuals, multiply the result by 1.210. Chronic [...] PROFILE Reviewed date:12/09/2023 03:47:51 PM Interpretation:Abnormal Performing Lab:[address] [phone] Notes/Report: Iron 25 30-160 mcg/dL Total Iron Binding Capacity 191 228-428 mcg/dL Percent Iron Saturation 13 15-50 % Unsaturated Iron Binding 166 Ferritin Reviewed date:12/09/2023 03:47:51 PM Interpretation:Normal Performing Lab:[facility], [address] [place] [phone] Notes/Report: Ferritin 79 10-250 ng/mL Lipid Panel Reviewed date:12/09/2023 03:47:51 PM Interpretation:Normal Performing Lab:[address] [address] Notes/Report: Triglycerides 88 <150 mg/dL Desirable Triglyceride: [...] Total Reviewed date:12/09/2023 03:47:51 PM Interpretation:Abnormal Performing Lab:[address] [phone] Notes/Report: Vitamin D 25-OH Total 23.4 >30 [...] Hormone Reviewed date:12/09/2023 03:47:51 PM Interpretation:Normal Performing Lab:[facility], [address] [place] [phone] Notes/Report: Thyroid Stimulating Hormone 2.91 0.32-4.0 uIU/mL Note: A sustained TSH level above 2.5 uIU/mL may warrant further investigation. TSH 3rd Generation ([facility]) XR chest 2V Reviewed date:04/24/2023 06:36:25 PM Interpretation:Normal Performing Lab: Notes/Report: [address] [address] XRay Report Signed Patient: Xi Garrison MR#: [id number] [birth year] : 1945 Acct:[id number] Age/Sex: 78 / F ADM Date: 04/24/23 Loc: .ED Attending Dr: Ordering Physician: Silvia Iyer NP Date of Service: 04/24/23 Procedure(s): XR chest 2V Accession Number(s): [id number] cc: Preston Wang DO; Silvia Iyer NP [...] in OV> 04/24/23 1610 DD/ 1547 TD/TT: Agricultural Services Director: CT chest w con Reviewed date:04/25/2023 01:09:24 PM Interpretation:Abnormal Performing Lab: Notes/Report: [address] [address] [address] Scan Report Signed Patient: Xi Garrison MR#: [id number] [birth year] : 1945 Acct:[id number] Age/Sex: 78 / F ADM Date: 04/24/23 Loc: HO.ED Attending Dr: Ordering Physician: Kwasi Jett Date of Service: 04/24/23 Procedure(s): CT chest w IV con Accession Number(s): [id number] cc: Kwasi Jett; Preston Wang DO EXAMINATION: [...] iterative reconstruction technique DLP: 408 mGy-cm FINDINGS: SOFTWOOD FALLER: No consolidation or edema. LUNGS: No abnormality [...] MD in OV> 04/24/232217 DD/ 33 TD/TT: Agricultural Services Director: JENY CT abdomen pelvis w con Reviewed date:04/25/2023 01:40:17 PM Interpretation:Abnormal Performing Lab: Notes/Report: [place] [address] [address] Scan Report Signed Patient: Xi Garrison MR#: [id number] [birth year] : 1945 Acct:[id number] Age/Sex: 78 / F ADM Date: 04/24/23 Loc: .ED Attending Dr: Ordering Physician: Kwasi Jett Date of Service: 04/24/23 Procedure(s): CT abdomen pelvis w IV con Accession Number(s): [id number] cc: Kwasi Jett; Preston Wang DO EXAMINATION: [...] MD in OV> 04/24/232228 DD/ 33 TD/TT: Agricultural Services Director: JENY SHAVER guidance in OR Reviewed date:04/27/2023 05:19:45 PM Interpretation:Abnormal Performing Lab: Notes/Report: [place] [address] Fluoroscopy Report Signed Patient: Xi Garrison MR#: [id number] [birth year] : 1945 Acct:[id number] Age/Sex: 78 / F ADM Date: 04/25/23 Loc: [facility] 350-[address]: Clint Webb MD Ordering Physician: Jose Reis MD Date of Service: 04/25/23 Procedure(s): FL guidance in OR Accession Number(s): [id number] cc: Jose Reis MD; Preston Wang DO [...] signed by Leno Krishnan MD in OV> 04/27/23 1642 DD/ 29 TD/TT: Agricultural Services Director: CHHAYA fistula/abscess/sinus tra ct Reviewed date:04/28/2023 04:07:35 PM Interpretation:Abnormal Performing Lab: Notes/Report: [address] [address] Fluoroscopy Report Signed Patient: Xi Garrison MR#: [id number] [birth year] : 1945 Acct:[id number] Age/Sex: 78 / F ADM Date: 04/25/23 Loc: .S3 350-[address]: Clint Webb MD Ordering Physician: Gilbert Heath Date of Service: 04/27/23 Procedure(s): FL fistula/abscess/sinus tract Accession Number(s): [id number] cc: Preston Wang DO; Gilbert Heath EXAMINATION: FL SINUS TRACT INJECTION CLINICAL INFORMATION: 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 Patient underwent subsequent for percutaneous drainage. Using continues to have drainage from the old drainage catheter site. COMPARISON: CT scan 04/24/2023 TECHNIQUE: 50 mL of Omnipaque 300 was injected through a 6 Belizean dilator through the open right flank wound. [...] <Electronically signed by Gilbert Heath in OV> 04/28/23 1120 <Electronically signed by Adrian Otto MD in OV> 04/28/23 1123 DD/ 1423 TD/TT: Agricultural Services Director: XR toe LT min 2V Reviewed date:08/14/2023 11:39:48 AM Interpretation:Abnormal Performing Lab: Notes/Report: [address] [address] XRay Report Signed Patient: Xi Garrison MR#: [id number] [birth year] : 1945 Acct:[id number] Age/Sex: 78 / F ADM Date: 08/13/23 Loc: HO.ED Attending Dr: Ordering Physician: Ayesha Roberson Date of Service: 08/13/23 Procedure(s): XR toe LT min 2V Accession Number(s): [id number] cc: Preston Wang DO; Ayesha Roberson EXAMINATION: [...] MD in OV> 08/13/232030 DD/ 31 TD/TT: Agricultural Services Director: SS MR foot LT wo con Reviewed date:08/24/2023 11:48:47 AM Interpretation:Abnormal Performing Lab: Notes/Report: [address] [address] Magnetic Resonance Report Signed Patient: Xi Garrison MR#: [id number] [birth year] : 1945 Acct:[id number] Age/Sex: 78 / F ADM Date: 08/19/23 Loc: HO.MRI Attending Dr: Preston Wang DO Ordering Physician: Preston Wang DO Date of Service: 08/19/23 Procedure(s): MR foot LT wo con Accession Number(s): [id number] cc: Preston Wang DO EXAMINATION: MR FOOT [...] in OV> 08/24/23 1136 DD/ 1125 TD/TT: Agricultural Services Director: CT abdomen pelvis wo con Reviewed date:10/04/2023 01:24:30 PM Interpretation:Abnormal Performing Lab: Notes/Report: [address] [address] [address] Scan Report Signed Patient: Xi Garrison MR#: [id number] [birth year] : 1945 Acct:[id number] Age/Sex: 78 / F ADM Date: 10/03/23 Loc: HO.ED Attending Dr: Ordering Physician: Tiffany Sanches CNP Date of Service: 10/03/23 Procedure(s): CT abdomen pelvis wo IV con Accession Number(s): [id number] cc: Tiffany Sanches CNP; Preston Wang DO [...] Avel Atwood MD 10/04/2023 01:44 AM EDT RP Dictated By: Avel Atwood MD Signed By: <Electronically signed by Avel Atwood MD in OV> 10/04/23 0144 DD/ 08 TD/TT: 10/03/232318 Agricultural Services Director: MEGHAN US renal BI Reviewed date:10/05/2023 12:44:32 PM Interpretation:Abnormal Performing Lab: Notes/Report: [address] [address] Ultrasound Report Signed Patient: Xi Garrison MR#: [id number] [birth year] : 1945 Acct:[id number] Age/Sex: 78 / F ADM Date: 10/04/23 Loc: .S3 350-[address]: Clint Webb MD Ordering Physician: Clint Webb MD Date of Service: 10/04/23 Procedure(s): US renal BI Accession Number(s): [id number] cc: Preston Wang DO; Clint Webb MD [...] 10/05/23 0540 DD/ 1540 TD/TT: 10/04/23 1555 Agricultural Services Director: EF REASON FOR REFERRAL Reason UTI Diagnosis 1 Cystitis, unspecifie d without hematuria (N30.90) Referral Organization Preston Kelly, FACP Referring Provider First Name Preston Referring Provider Last Name Felipe Referring Provider Speciality Internal M edicine Referred Provider Horacio Jacobsen Referred Provider Specialty OB - Gynecol ogy General Notes BriannaPricila 12:10:18 PM EDT > Referral faxed prior to scheduling. Referral Priority Routine Referral Appointment Date 07/06/2023 Reason Open fracture, left great toe Diagnosis 1 Unspecified fracture of left toe(s), initial encounter for closed fracture (S92.912A) Referral Organization Preston Kelly FACP Referring Provider First Name Preston Referring Provider Last Name Felipe Referring Provider Speciality Internal M edicine Referred Provider See Zabala Referred Provider [...] unspecified (N93.9) Active confirmed Abnormal uterine bleeding (808675993092 00) Problem Unspecified fracture of left toe(s), initial encounter for closed fracture (S92.912A) Active confirmed Closed fracture of phalanx of foot (29847839) Problem Essential hypertension (I10) Active confirmed 68162537 Problem Acquired hypothyroidism (E03.9) Active confirmed 130978414 Problem Morbid obesity due to excess calories (E66.01) Active confirmed 796564523 Problem Eczema, unspecified type (L30.9) Active confirmed 86849034 Problem Sciatica, right (M54.31) Active confirmed 77334658 Problem Chronic right-sided low back pain without sciatica (M54.5) Active confirmed 578730474 Problem Type 2 diabetes mellitus without complication, without long-term current use of insulin (E11.9) Active confirmed 584170344 Problem Sciatica of left side (M54.32) Active confirmed 09563756 Problem Severe single current episode of major depressive disorder, 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) Active confirmed 81551006 Problem Right-sided back pain, unspecified back location, unspecified chronicity (M54.9) Active confirmed 023766184 Problem 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) Active confirmed 102673811 Problem Pneumonia of both lungs due to infectious organism, unspecified part of lung (J18.9) Active confirmed 363708958 Problem Gastritis without bleeding, unspecified chronicity, unspecified gastritis type (K29.70) Active confirmed 0614696 Problem Diverticulitis (K57.92) Active confirmed 297949456 Problem Vaginal burning (N94.9) Active confirmed 585333833 Problem 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 9 Preston Wang DO, [address] [id number] 06/27/2023 Preston Wang Vaginal burning N94. 9 Preston Wang DO, [address] [id number] 07/05/2023 Preston Wang DO, [address] [id number] 07/12/2023 Preston Wang DO, [address] [id number] 07/19/2023 Preston Wang Staghorn calculus N2 0.0 and Vaginal burning N94.9 Preston Wang DO, [address] [id number] 07/20/2023 Preston Wang DO, [address] [id number] 07/25/2023 Preston Wang DO, [address] [id number] 08/15/2023 Preston Wang Toe osteomyelitis M8 6.9 Preston Wang DO, [address] [id number] 08/16/2023 Preston Wang Toe osteomyelitis M8 6.9 Preston Wang DO, [address] [id number] 08/22/2023 Preston Wagn DO, [address] [id number] 08/24/2023 Preston Wang Toe osteomyelitis M8 6.9 Preston Wang DO, [address] [id number] 11/21/2023 Preston Wang Type 2 diabetes mellitus without complication, without long-term current use of insulin E11.9 Preston Wang DO, [address] [id number] 11/23/2023 Preston Wang Type 2 diabetes mellitus without complication, without long-term current use of insulin E11.9 Preston Wagn DO, [address] [id number] 05/20/2023 Preston Bryanman Essential hypertensi on I10 ; Acquired hypothyroidism E03.9 ; Type 2 diabetes mellitus without complication, without long-term current use of insulin E11.9 ; Staghorn calculus N20.0 ; Vaginal burning N94.9 and Eczema, unspecified type L30.9 Preston Wang DO, [facility] [address] [place], [place] [id number] 07/22/2023 Preston Bryanman Preston Blankenship Felipe KUMAR, [address] [id number] 07/29/2023 Preston Wang Vaginal burning N94. 9 ; Staghorn calculus N20.0 ; Essential hypertension I10 ; Acquired hypothyroidism E03.9 and Type 2 diabetes mellitus without complication, without long-term current use of insulin E11.9 Preston Krzysztof Felipe KUMAR, [address] [id number] 11/11/2023 Preston Bryanman Diverticulitis K57.9 2 ; Essential hypertension I10 ; Acquired hypothyroidism E03.9 ; Staghorn calculus N20.0 and Type 2 diabetes mellitus without complication, without long-term current use of insulin E11.9 Preston Krzysztof Felipe KUMAR, [address] [id number] 12/16/2023 Preston Wang Diverticulitis K57.9 2 ; [...] 05/20/2023 Hemoglobin A1c 05/20/2023 Hemoglobin A1c 11/24/2021 Insurance Providers Payer Name Payer Address Payer Phone Subscriber Number Group Number Insured Name Patient Relationship to Insured Coverage Start Date Coverage End Date MEDICARE [address] [place] [phone] [id number] Xi Garrison Self - patient is the [...]
--- OUTSIDE RECORDS SUMMARY | 2024-02-16 11:45 | XMS_ITS | Clinical Summary ---
Author Organization Unknown Care Team Providers Care Jewel Inspector Name Role Phone PITA , LIBERTAD Unavailable Unavailable ZEE RN, ABIEL Unavailable Unavailable ANABELLA RN, SHAYY Unavailable Unavailable Payers Payer Name Policy Type Policy Number Effective Date Expira tion Date [place] - [place] - [place] [id number] [facility] [id number] Problems Condition Name Condition Details Condition Category [...] MIXED HYPERLIPIDEM [place] Active 02-07 00:00: 00 [facility] (CURRENT) USE OF ORAL HYPOGLYCEMIC DRUGS Active 02-07 00:00: 00 [facility] (CURRENT) USE OF OPIATE ANALGESIC Active 02-07 [...] 10 mg tablet 2023-02 00:00: 00 Yes [id number] 1 tablet DAILY 1 tablet DAILY (route: oral) Med Classific ation: Cardiovas cular Therapy Agents B-complex with vitamin C 400 mcg-500 mg tablet 2023-02 00:00: 00 Yes [id number] 1 tablet DAILY 1 tablet DAILY (route: oral) Med Classific ation: Electroly te Balance-N utritiona l Products clindamycin HCl 300 mg capsule 920 00:00: 00 11-10 23:59 :00 No [id number] 1 capsule EVERY 6 HOURS 1 capsule EVERY 6 HOURS (route: oral) Med Classific ation: Anti-Infe ctive Agents furosemide 40 mg tablet 2023-02 00:00: 00 Yes [id number] 1 tablet DAILY 1 tablet DAILY (route: oral) Med Classific ation: Cardiovas cular Therapy Agents levothyroxi ne 112 mcg tablet 2023-02 00:00: 00 Yes [id number] 1 tablet DAILY 1 tablet DAILY (route: oral) Med Classific ation: Endocrine metformin 500 mg tablet 2023-02 00:00: 00 Yes [id number] 1 tablet DAILY 1 tablet DAILY (route: oral) Med Classific ation: Endocrine Probiotic Acidophilus 250 million cell capsule 2023-02 00:00: 00 Yes [id number] 1 capsule DAILY 1 capsule DAILY (route: oral) Med Classific ation: Gastroint estinal Therapy Agents tramadol 50 mg tablet 2023-02 0 00:00: 00 Yes [id number] 1 tablet 3 TIMES DAILY 1 tablet 3 TIMES DAILY (route: oral) Med Classific ation: Analgesic , Anti-infl ammatory or Antipyret ic Vitamin D3 25 mcg (1,000 unit) capsule 2023-02 0 00:00: 00 Yes [id number] 2 capsule DAILY 2 capsule DAILY (route: [...] MAINTAIN SITUATIONAL AWARENESS AND WILL NOTIFY CLINICAL PRINTED FORMS PROOFREADER AND PHYSICIAN/PROVIDER WITH ANY CHANGE IN CONDITION. [code = SKILLED NURSE TO PERFORM ENVIRONMENTAL SAFETY RISK ASSESSMENT AND FALL RISK ASSESSMENT AND PROVIDE INSTRUCTION TO IMPLEMENT ENVIRONMENTAL SAFETY AND FALL PREVENTION STRATEGIES THROUGHOUT THE CERTIFICATION PERIOD. SKILLED NURSE WILL MAINTAIN SITUATIONAL AWARENESS AND WILL NOTIFY CLINICAL PRINTED FORMS PROOFREADER AND PHYSICIAN/PROVIDER WITH ANY CHANGE IN CONDITION.] [...] End Date/Time Encounter Type Admission Type Attending [facility] Facility Care Department Encounter ID Discharge Date Discharge Status Discharge Condition Discharge Reason Percent Goals Met 2023-11-09 00:00:00 2024-03-07 00:00:00 Outpatient RECERTIFIC ATION SHAYY KYLE [facility] [id number] 57.58
[2024-02-16 12:11] LABS: Appearance Urine Turbid; Color Urine Yellow; Glucose Urine UA Negative (Negative); Leukocyte Esterase Urine Large (3+) (Negative); Nitrite Urine Negative (Negative); Specific Gravity - Urine 1.015 (1.005-1.025); UMIC TRIGGER UA YES; Urine Blood Large (3+) (Negative); Urine Ketones Negative (Negative); Urine Protein 30 (1+) mg/dL (Neg-Trace)
[2024-02-16 12:26] LABS: Bacteria Urine Trace (None Seen); Hyaline Casts Urine 0-2 /LPF (0-2); Squamous Epithelial Cell Urine 0-2 /HPF (0-2); WBC Urine >50 /HPF (0-5)
[2024-02-16 13:16] LABS: Alanine Aminotransferase 37 U/L (0-31); Albumin Level 3.7 g/dL (3.5-5.0); Alkaline Phosphatase 67 U/L (39-117); Anion Gap 12 (12-20); Aspartate Amino Transferase 37 U/L (5-31); Bilirubin Direct 0.2 mg/dL (0.0-0.5); Bilirubin Total 0.4 mg/dL (0.0-1.0); Blood Urea Nitrogen 21 mg/dL (9-16); Calcium 9.5 mg/dL (8.4-10.2); Carbon Dioxide 25 mmol/L (22-29); Chloride 107 mmol/L (96-108); Cholesterol 173 mg/dL (<200); Estimated Glomerular Filt Rate 41; Glucose Random 131 mg/dL (60-115); HDL Cholesterol 52 mg/dL (>40); LDL Cholesterol Calculated 102 mg/dL (<100); Potassium 4.6 mmol/L (3.3-5.1); Sodium 139 mmol/L (135-145); Thyroid Stimulating Hormone 9.04 uIU/mL (0.32-4.0); Total Protein 7.9 g/dL (6.5-8.0); Triglycerides 99 mg/dL (<150)
== END 2024-02-16 11:00 | disposition home or self-care (01) ==
LOC: HO.LAB 10:59
PROVIDERS: PCP Internal Medicine; Visit Provider Internal Medicine
DX: Z01.810 Encounter for preprocedural cardiovascular examination (principal)
CPT/HCPCS: 36415; 80048; 80061; 80076; 81001; 81003; 84443; 93005

== ENCOUNTER → 2024-02-16 11:09 | Outpatient (BNV) | payer MEDICARE, SELFPAY | PROVIDERS: PCP Internal Medicine; Visit Provider Internal Medicine | DX: I44.0 Atrioventricular block, first degree (principal) | CPT/HCPCS: 93010 ==

== ENCOUNTER 2024-02-20 06:07 | Inpatient (IN) | payer MEDICARE, SELFPAY ==
[2024-01-26 14:30] VITALS: BMI 33.8
--- NOTE | 2024-02-16 14:15 | P.CONAN_ITS ---
Documented by User: Kristina Keith NP 02/16/24 14:20 HPI - Anesthesia Eval Consult details Narrative: 78yo F for Hand Assist Laparoscopic possible Open Colostomy Closure Medically optimized per PCP [facility] Active Problems Active Problems: All Active Problems Hydroureteronephrosis (Acute) Postop check (Acute) Status post Vicki procedure (Acute) Atrophic vaginitis (Acute) Renal abscess (Acute) Frequency of urination (Acute) Vaginal burning (Acute) Vaginal itching (Acute) PMB (postmenopausal bleeding) (Acute) Fracture of great toe, left, closed (Acute) Retroperitoneal fluid collection (Acute) Bilateral nephrolithiasis (Acute) Abscess, retroperitoneal (Acute) Renal calyceal dilation determined by ultrasound (Acute) Past Medical History Medical History Hydroureteronephrosis Wound infection Open wound of back, complicated Cellulitis Frequency of urination Vaginal burning Vaginal itching PMB (postmenopausal bleeding) Cirrhosis of liver Does mobilize using walker PONV (postoperative nausea and vomiting) Left foot drop Fatty liver Fibromyalgia Neuropathy RBBB Cholelithiasis Staghorn calculus Renal calculus, bilateral Renal calyceal dilation determined by ultrasound UTI (urinary tract infection) Diabetes mellitus, type II Ganglion cyst Plantar fasciitis Anxiety OA (osteoarthritis) Obstructive airway disease Hypercholesterolemia Low back pain Sciatica Hypothyroidism HTN (hypertension) Primary osteoarthritis of right knee Retained ureteral stent Renal stones Staghorn calculus Perirectal abscess Family History Family History Father Alcohol dependence Mother CHF (congestive heart failure) Cancer of breast Mother No problems noted. Other Alcoholic cirrhosis Substance use disorder Family history of problems with anesthesia: No Surgical History Surgical History History of colectomy (~10/06/23) Status post cystoscopy with ureteral stent placement History of lumbar discectomy History of lumpectomy of both breasts History of cystoscopy History of lithotripsy Hx of colonoscopy History of surgery History of Problems with Anesthesia: No Social History Social History Household Members: Spouse Housing: House Are you a primary health care social worker to a significant other at home: No Do you presently have visiting nurse or other home services: Yes ([facility]NA 2x week) Alcohol intake: never Comment: wheelchair for long distances Patient Tobacco Use Status: Former Tobacco user Tobacco use type: Cigarette Years Smoked: 27 Smoked in Last 30 Days: No e-Cigarette/Vaping Use: Never Used Second Hand Smoke Exposure: Yes Use of substances other than those prescribed or required for medical reasons: No Have you been hit, kicked, punched, or otherwise hurt by someone within the past year? If so, by whom?: No Are you DNR?: No Advance Directives: Yes Advance Directives Information Provided: No Advance Directives on File: Yes Advance Directives Date on File: 04/06/21 Recently lost weight without trying: No Nutrition Risks: Surgical patient >75years service: No Current occupational status: disabled Cognitive needs: Yes (wheelchair) Hearing needs: No Vision needs: Yes (Glasses) Meds Allergies Allergy/AdvReac Type Severity Reaction Status Date / Time chlorpheniramine Allergy Severe HALLUCINATI Verified 02/20/24 07:10 [From TUSSIONEX] ONS ciprofloxacin [From CIPRO] Allergy Severe ANAPHYLAXIS Verified 02/20/24 07:10 escitalopram [ESCITALOPRAM] Allergy Severe DISSOCIATIVE Verified 02/20/24 07:10 REACTION fluoxetine [FLUOXETINE] Allergy Severe DISSOCIATIVE Verified 02/20/24 07:10 REACTION hydrocodone [From TUSSIONEX] Allergy Severe HALLUCINATI Verified 02/20/24 07:10 ONS ibuprofen [IBUPROFEN] Allergy Severe THROAT Verified 02/20/24 07:10 SWELLING Sulfa (Sulfonamide Allergy Severe DYSPNEA Verified 02/20/24 07:10 Antibiotics) [SULFA (SULFONAMIDE ANTIBIOTICS)] clarithromycin [From BIAXIN] Allergy Intermediate ABD.PAIN Verified 02/20/24 07:10 duloxetine [DULOXETINE] Allergy Intermediate FACIAL Verified 02/20/24 07:10 NUMBNESS erythromycin base Allergy Intermediate RASH Verified 02/20/24 07:10 [ERYTHROMYCIN BASE] Penicillins [PENICILLINS] Allergy Intermediate RASH Verified 02/20/24 07:10 tetracycline [TETRACYCLINE] Allergy Intermediate DIARRHEA Verified 02/20/24 07:10 codeine [CODEINE] Allergy Unknown TINNITIS Verified 02/20/24 07:10 guaifenesin Allergy Unknown Unknown Verified 02/20/24 07:10 levofloxacin [From Levaquin] Allergy Unknown Unknown Verified 02/20/24 07:10 pregabalin Allergy Unknown Unknown Verified 02/20/24 07:10 Home Medications ?Medication ?Instructions ?Recorded ?Confirmed ?Last Taken ?Type atorvastatin 10 mg tablet 1 tab PO DAILY 04/05/21 01/26/24 1 Day Ago History ~10/03/23 metformin 500 mg tablet,extended 1 tab PO DAILY 04/06/21 01/26/24 10/03/23 History release 24 hr cholecalciferol (vitamin D3) 50 50 mcg PO DAILY 07/19/22 01/26/24 10/03/23 H istory mcg (2,000 unit) tablet (Vitamin D3) acetaminophen 500 mg tablet 1,000 mg PO BID PRN Pain 10/04/23 01/26/24 Unknown History B-complex with vitamin C 1 cap PO DAILY 01/26/24 01/26/24 Unknown History Lactobacillus acidophilus 250 PO DAILY 01/26/24 Unknown History million cell capsule (Probiotic Acidophilus) lisinopril 10 mg tablet 10 mg PO DAILY 02/15/24 Unknown History Exam Height,Weight and Vital Signs: Height 5 ft 4 in Weight 89.358 kg Pertinent Lab Results Pertinent Lab Results: Laboratory Tests 12/09/23 02/16/24 11:18 11:50 WBC 10.0 Hgb 10.3 L Hct 33.7 L Plt Count 267 Sodium 139 Potassium 4.6 Chloride 107 Carbon Dioxide 25 BUN 21 H Creatinine 1.26 Laboratory Tests 02/16/24 11:50 Total Bilirubin 0.4 Direct Bilirubin 0.2 AST 37 H ALT 37 H Alkaline Phosphatase 67 Total Protein 7.9 Albumin 3.7 Narrative Narrative: EKG 02/2024 Vent. Rate : 70 BPM Atrial Rate : 70 BPM P-R Int : 214 ms QRS Dur : 120 ms QT Int : 412 ms P-R-T Axes : 85 41 31 degrees QTcB Int : 444 ms Sinus rhythm with sinus arrhythmia with 1st degree A-V block Possible Inferior infarct (cited on or before 24-Apr-2023) Abnormal ECG When compared with ECG of 24-Apr-2023 15:21, Right bundle branch block is no longer Present Assessment and Plan Assessment Anesthesia Assessment: Chart Reviewed Final Anesthetic Review Family History of Problems with Anesthesia: No History of Problems with Anesthesia: No Documented by User: Juan Antonio Brito MD 02/20/24 07:23 [facility] Past Medical History Medical History Hydroureteronephrosis Wound infection Open wound of back, complicated Cellulitis Frequency of urination Vaginal burning Vaginal itching PMB (postmenopausal bleeding) Cirrhosis of liver Does mobilize using walker PONV (postoperative nausea and vomiting) Left foot drop Fatty liver Fibromyalgia Neuropathy RBBB Cholelithiasis Staghorn calculus Renal calculus, bilateral Renal calyceal dilation determined by ultrasound UTI (urinary tract infection) Diabetes mellitus, type II Ganglion cyst Plantar fasciitis Anxiety OA (osteoarthritis) Obstructive airway disease Hypercholesterolemia Low back pain Sciatica Hypothyroidism HTN (hypertension) Primary osteoarthritis of right knee Retained ureteral stent Renal stones Staghorn calculus Perirectal abscess Family History Family History Father Alcohol dependence Mother CHF (congestive heart failure) Cancer of breast Mother No problems noted. Other Alcoholic cirrhosis Substance use disorder Surgical History Surgical History History of colectomy (~10/06/23) Status post cystoscopy with ureteral stent placement History of lumbar discectomy History of lumpectomy of both breasts History of cystoscopy History of lithotripsy Hx of colonoscopy History of surgery Social History Social History Household Members: Spouse Housing: House Are you a primary health care social worker to a significant other at home: No Do you presently have visiting nurse or other home services: Yes (VNA 2x week) Alcohol intake: never Comment: wheelchair for long distances Patient Tobacco Use Status: Former Tobacco user Tobacco use type: Cigarette Years Smoked: 27 Smoked in Last 30 Days: No e-Cigarette/Vaping Use: Never Used Second Hand Smoke Exposure: Yes Use of substances other than those prescribed or required for medical reasons: No Have you been hit, kicked, punched, or otherwise hurt by someone within the past year? If so, by whom?: No Are you DNR?: No Advance Directives: Yes Advance Directives Information Provided: No Advance Directives on File: Yes Advance Directives Date on File: 04/06/21 Recently lost weight without trying: No Nutrition Risks: Surgical patient >75years service: No Current occupational status: disabled Cognitive needs: Yes (wheelchair) Hearing needs: No Vision needs: Yes (Glasses) Meds Allergies Allergy/AdvReac Type Severity Reaction Status Date / Time chlorpheniramine Allergy Severe HALLUCINATI Verified 02/20/24 07:10 [From TUSSIONEX] ONS ciprofloxacin [From CIPRO] Allergy Severe ANAPHYLAXIS Verified 02/20/24 07:10 escitalopram [ESCITALOPRAM] Allergy Severe DISSOCIATIVE Verified 02/20/24 07:10 REACTION fluoxetine [FLUOXETINE] Allergy Severe DISSOCIATIVE Verified 02/20/24 07:10 REACTION hydrocodone [From TUSSIONEX] Allergy Severe HALLUCINATI Verified 02/20/24 07:10 ONS ibuprofen [IBUPROFEN] Allergy Severe THROAT Verified 02/20/24 07:10 SWELLING Sulfa (Sulfonamide Allergy Severe DYSPNEA Verified 02/20/24 07:10 Antibiotics) [SULFA (SULFONAMIDE ANTIBIOTICS)] clarithromycin [From BIAXIN] Allergy Intermediate ABD.PAIN Verified 02/20/24 07:10 duloxetine [DULOXETINE] Allergy Intermediate FACIAL Verified 02/20/24 07:10 NUMBNESS erythromycin base Allergy Intermediate RASH Verified 02/20/24 07:10 [ERYTHROMYCIN BASE] Penicillins [PENICILLINS] Allergy Intermediate RASH Verified 02/20/24 07:10 tetracycline [TETRACYCLINE] Allergy Intermediate DIARRHEA Verified 02/20/24 07:10 codeine [CODEINE] Allergy Unknown TINNITIS Verified 02/20/24 07:10 guaifenesin Allergy Unknown Unknown Verified 02/20/24 07:10 levofloxacin [From Levaquin] Allergy Unknown Unknown Verified 02/20/24 07:10 pregabalin Allergy Unknown Unknown Verified 02/20/24 07:10 Home Medications ?Medication ?Instructions ?Recorded ?Confirmed ?Last Taken ?Type atorvastatin 10 mg tablet 1 tab PO DAILY 04/05/21 01/26/24 1 Day Ago History ~10/03/23 metformin 500 mg tablet,extended 1 tab PO DAILY 04/06/21 01/26/24 10/03/23 History release 24 hr cholecalciferol (vitamin D3) 50 50 mcg PO DAILY 07/19/22 01/26/24 10/03/23 History mcg (2,000 unit) tablet (Vitamin D3) acetaminophen 500 mg tablet 1,000 mg PO BID PRN Pain 10/04/23 01/26/24 Unknown History B-complex with vitamin C 1 cap PO DAILY 01/26/24 01/26/24 Unknown History Lactobacillus acidophilus 250 PO DAILY 01/26/24 Unknown History million cell capsule (Probiotic Acidophilus) lisinopril 10 mg tablet 10 mg PO DAILY 02/15/24 Unknown History Exam Airway Mallampati Class: III TM Dist: >3cm Neck ROM: Full Denture: Upper Assessment and Plan Assessment Anesthesia Assessment: Anesthesia Plan Discussed Final Anesthetic Review NPO: Yes ASA Class: III Final Preanesthetic Review: No Changes in Pt Med Stat, Meds/Allgs Chart Reviewed, Consent Obtained/Reviewed and Anes Risks/Benef Reviewed Patient Risk: Intermediate Procedure Risk: Intermediate Anesthetic Plan Anesthetic Plan: GA Disposition: Standard PACU
[2024-02-20] VITALS (12 sets, daily range): BP systolic 102–126; BP diastolic 47–79; PULSE 74–97; RESP 12–20; TEMP 36–36.8; O2SAT 97–100; BMI 35.5; BMI 36.9
[2024-02-20] MEDS: Lactated Ringers 1,000 ML 100 ML IVCONT ×3 (06:46→22:50)
[2024-02-20] MEDS: Scopolamine 1.5 MG PATCH.TD.3 TRANSDERMA (07:08)
--- OUTSIDE RECORDS SUMMARY | 2024-02-20 07:10 | XMS_ITS ---
Author Organization Preston Wang DO, FACP Address [address] [place] [id number] Care Team Providers Care Clinical Cytogeneticist Scientist Name Role Phone Preston Wang Primary Care [...] Location Date Provider Diagnosis Preston Wang DO, [address] [id number] 12/16/2023 Preston Wang Diverticulitis K57.9 2 ; [...]
--- OUTSIDE RECORDS SUMMARY | 2024-02-20 07:10 | XMS_ITS ---
Author Organization Preston Wang DO, [facility] Address [address] [place], [place] [id number] Care Team Providers Care Certified Art Therapist Name Role Phone Preston Wang Primary Care Provider REASON FOR VISIT pre-op SOCIAL HISTORY Sex Assigned At : Social History Observation Description Sex Assigned At Female Encounters Encounter Location Date Provider Diagnosis Preston Wang DO, FACP [address] [place] [id number] 02/14/2024 Preston Wang PLAN OF TREATMENT No Information
--- OUTSIDE RECORDS SUMMARY | 2024-02-20 07:10 | XMS_ITS ---
Author Organization [facility] Address [address] [place] [address] Care Team Providers Care Manager Film Name Role Phone Preston Wang MD Primary Care Provider Unavail Lucy Guadalupe Unavailable [phone] REASON FOR VISIT SD cx 06/27 Encounters Encounter Location Date Provider Diagnosis [facility] [address] [place] [address] 06/28/2023 Lucy Castro Plan Of Treatment No Information Progress Notes * Casimiro DOANineDOB: 8 (78 yo F)Acc No.[id number]:06/28/2023 Patient:?MeliKemal blantonXi :1945???Age:78 Y???Sex:Female Address:[address] [place] [address] [place] [address] * true * Date:? Generated for Nildai bre/Artur/eTransmitting on:?02/20/2024 07:10 AM EST
--- OUTSIDE RECORDS SUMMARY | 2024-02-20 07:10 | XMS_ITS | Patient Health Record ---
[facility] Address [address] [facility] [place] [address] Care Team Providers Care Automobile Spring Repairer Name Role Phone Preston Wang MD Primary Care Provider Unavail able Lucy Castro Unavailable [phone] Allergies Allergen (clinical drug ingredient) Drug/Non Drug [...] Problem Status W/U Status Risk Notes Problem 480281334 Hammer toe of le ft foot (M20.42) Active confirmed Problem 723174748 Neuropathy (G62.9) Active confirmed Problem [id number] Atherosclerosi s of artery of both lower extremities (I70.203) Active confirmed Encounters Encounter Location Date Provider Diagnosis [facility] [place] [address] [place] [address] 06/28/2023 Lucy Castro Plan Of Treatment Pending Test Test Name Order Date X ray : Foot, left 3V 08/20/2022 X ray : Foot, left 3V 09/10/2022 X ray : Foot, left 3V 10/08/2022 [id number] NAIL, 1-5 12/21/2017 [id number] DYSTROPHIC NAILS ANY # Insurance Providers Payer Name Payer Address Payer Phone Subscriber Number Group Number Insured Name Patient Relationship to Insured Coverage Start Date Coverage End Date Medicare National Govt Sv[employer] [address] [place] [address] [id number] Xi Garrison Self - patient is the insured 3 [employer] Blue Shield [address] [place] [address] [phone] [id number] 1 Xi Garrison Self - patient is [...]
--- OUTSIDE RECORDS SUMMARY | 2024-02-20 07:10 | XMS_ITS ---
Author Organization [facility] Address [address] [place] [address] Care Team Providers Care Actuarial Mathematician Name Role Phone Felipe SERNA, Preston Primary Care Provider Unavail able Lucy Castro Unavailable [phone] Encounters Encounter Location Date Provider Diagnosis [facility] [address] [place] [address] 11/26/2022 Lucy Castro Plan Of Treatment No Information Progress Notes * Casimiro DOANineDOB: 8 (78 yo F)Acc No.[id number]:11/26/2022 Progress Note Patient:?Xi DOAN Provider:?Lucy Castro DPM :1945???Age:77 Y???Sex:Female D ate:11/26/2022 Address:[address] [place], [place] [address] Pcp:Preston Wang MD Subjective: * Chief Complaints: [...] Castro DPM Date:? Generated for Printi bre/Fagorang/eTransmitting on:?02/20/2024 07:10 AM EST
--- OUTSIDE RECORDS SUMMARY | 2024-02-20 07:11 | XMS_ITS ---
Author Organization Preston Wang DO, [facility] Address [address] [place], [place] [id number] Care Team Providers Care Opticianry Teacher Name Role Phone Preston Wang Primary Care Provider REASON FOR VISIT 4 month f/u SOCIAL HISTORY Sex Assigned At : Social History Observation Description Sex Assigned At Female Encounters Encounter Location Date Provider Diagnosis Preston Wang DO, FACP [address] [place] [phone] 11/30/2023 Preston Wang PLAN OF TREATMENT No Information
--- OUTSIDE RECORDS SUMMARY | 2024-02-20 07:12 | XMS_ITS | Clinical Summary ---
Author Organization Unknown Care Team Providers Care Instrumentation Engineer Name Role Phone PITA , LIBERTAD Unavailable Unavailable ZEE RN, ABIEL Unavailable Unavailable ANABELLA RN, SHAYY Unavailable Unavailable Payers Payer Name Policy Type Policy Number Effective Date Expira tion Date [place] [id number] [facility] [id number] Problems Condition Name Condition Details Condition Category [...] MIXED HYPERLIPIDEM IA Active 02-07 00:00: 00 ASSISTED (CURRENT) USE OF ORAL HYPOGLYCEMIC DRUGS Active 02-07 00:00: 00 ASSISTED (CURRENT) USE OF OPIATE ANALGESIC Active 02-07 [...] 10 mg tablet 2023-02 00:00: 00 Yes [id number] 1 tablet DAILY 1 tablet DAILY (route: oral) Med Classific ation: Cardiovas cular Therapy Agents B-complex with vitamin C 400 mcg-500 mg tablet 2023-02 00:00: 00 Yes [id number] 1 tablet DAILY 1 tablet DAILY (route: oral) Med Classific ation: Electroly te Balance-N utritiona l Products clindamycin HCl 300 mg capsule 920 00:00: 00 11-10 23:59 :00 No [id number] 1 capsule EVERY 6 HOURS 1 capsule EVERY 6 HOURS (route: oral) Med Classific ation: Anti-Infe ctive Agents furosemide 40 mg tablet 2023-02 00:00: 00 Yes [id number] 1 tablet DAILY 1 tablet DAILY (route: oral) Med Classific ation: Cardiovas cular Therapy Agents levothyroxi ne 112 mcg tablet 2023-02 00:00: 00 Yes [id number] 1 tablet DAILY 1 tablet DAILY (route: oral) Med Classific ation: Endocrine metformin 500 mg tablet 2023-02 00:00: 00 Yes [id number] 1 tablet DAILY 1 tablet DAILY (route: oral) Med Classific ation: Endocrine Probiotic Acidophilus 250 million cell capsule 2023-02 00:00: 00 Yes [id number] 1 capsule DAILY 1 capsule DAILY (route: oral) Med Classific ation: Gastroint estinal Therapy Agents tramadol 50 mg tablet 2023-02 0 00:00: 00 Yes [id number] 1 tablet 3 TIMES DAILY 1 tablet 3 TIMES DAILY (route: oral) Med Classific ation: Analgesic , Anti-infl ammatory or Antipyret ic Vitamin D3 25 mcg (1,000 unit) capsule 2023-02 0 00:00: 00 Yes [id number] 2 capsule DAILY 2 capsule DAILY (route: [...] MAINTAIN SITUATIONAL AWARENESS AND WILL NOTIFY CLINICAL PARTS COUNTERMAN AND PHYSICIAN/PROVIDER WITH ANY CHANGE IN CONDITION. [code = SKILLED NURSE TO PERFORM ENVIRONMENTAL SAFETY RISK ASSESSMENT AND FALL RISK ASSESSMENT AND PROVIDE INSTRUCTION TO IMPLEMENT ENVIRONMENTAL SAFETY AND FALL PREVENTION STRATEGIES THROUGHOUT THE CERTIFICATION PERIOD. SKILLED NURSE WILL MAINTAIN SITUATIONAL AWARENESS AND WILL NOTIFY CLINICAL PARTS COUNTERMAN AND PHYSICIAN/PROVIDER WITH ANY CHANGE IN CONDITION.] [...] CARE WILL BE ESTABLISHED THAT MEETS PATIENT'S ASSISTED NEEDS AND INCLUDES PATIENT GOAL FOR HOME [...] ULCER PREVENTION BY END OF THE EPISODE. Encounters Start Date/Time End Date/Time Encounter Type Admission Type Attending [facility] Care Facility Care Department Encounter ID Discharge Date Discharge Status Discharge Condition Discharge Reason Percent Goals Met 2023-11-09 00:00:00 2024-03-07 00:00:00 Outpatient RECERTIFIC ATION SHAYY KYLE [facility] [id number] 57.58
--- OUTSIDE RECORDS SUMMARY | 2024-02-20 07:12 | XMS_ITS | Patient Health Record ---
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 Name Role Phone Preston Wang Primary Care Provider [phone] ALLERGIES Allergen (clinical drug ingredient) Drug/Non Drug [...] ff Reviewed date:04/12/2023 09:21:42 PM Interpretation:Normal Performing Lab:[facility], [address] [place] [phone] Notes/Report: White Blood Count 8.8 4.8-10.8 X10*3/uL [...] Panel Reviewed date:04/12/2023 09:21:42 PM Interpretation:Abnormal Performing Lab:[facility], [address] [place] [phone] Notes/Report: Sodium 137 135-145 mmol/L Potassium 3.4 [...] Estimated Glomerular Filt Rate 34 NOTE: For -Russian individuals, multiply the result by 1.210. Chronic [...] Lipase Reviewed date:04/12/2023 09:21:42 PM Interpretation:Normal Performing Lab:[address] [phone] Notes/Report: Lipase 15 8-78 U/L SARS-CoV2/FLU/RSV Reviewed date:04/12/2023 09:21:42 PM Interpretation:Negative Performing Lab:[address] [address] Notes/Report: Influenza A PCR NEGATIVE Negative Influenza [...] by authorized laboratories. Testing performed on the [employer] GeneXpert utilizing real-time RT-PCR. All SARS CoV2 and positive influenza A/B results are reported to [facility]. Lactic Acid Reviewed date:04/12/2023 09:21:42 PM Interpretation:Abnormal Performing Lab:[address] [phone] Notes/Report: Lactic Acid 2.5 0.5-2.0 mmol/L Critical value for test(s): LACTA Results called to and read back by: CHANTALE Person calling: LANEY Date: 04/12/23 Time: 1523 Lactic Acid-LAB USE ONLY Reviewed date:04/12/2023 09:21:42 PM Interpretation:Abnormal Performing Lab:[address] [phone] Notes/Report: Lactic Acid-LAB USE ONLY 2.1 0.5-2.0 mmol/L Critical value for test(s): LACTA Results called to and read back by:DEONDRE Person calling: SALIERD Date: 04/12/23 Time: 1743 Lactic Acid-LAB USE ONLY Reviewed date:04/12/2023 09:21:42 PM Interpretation:Abnormal Performing Lab:[address] [address] Notes/Report: Lactic Acid-LAB USE ONLY 2.1 0.5-2.0 mmol/L Critical value for test(s): LACTA Results called to and read back by: LETICIA Person calling: PanvideaERD Date: 04/12/23 Time:1953 UA ClnCatch+Micro w/rflx Cul t Reviewed date:04/12/2023 09:21:42 PM Interpretation:Abnormal Performing Lab:[address] [phone] Notes/Report: Urine, Clean Catch Color Urine Yellow Appearance Urine Cloudy PH 6.0 5.0-9.0 Glucose Urine UA 100 Negative mg/dL Urine Blood Small (1+) Negative Specific Edg[place] - Urine 1.010 1.005-1.025 Urine Protein 30 (1+) Neg-Trace mg/dL Urine Ketones Negative Negative mg/dL Nitrite Urine Negative Negative Leukocyte Esterase Urine Large (3+) Negative RBC Urine 6-10 0-2 /HPF WBC Urine >50 0-5 /HPF Squamous Epithelial Cell Urine 0-2 0-2 /HPF Bacteria Urine 4+ None Seen Hyaline Casts Urine 0-2 0-2 /LPF Urine Culture Reviewed date:04/14/2023 04:54:46 PM Interpretation:Abnormal Performing Lab:[address] [phone] Notes/Report: Urine Culture Report Result Urine Culture > 100,000 cfu/ml Urine Culture Mixed bacterial ray a characteristic of Urine Culture urogenital contamination. Blood Culture (First) Reviewed date:04/17/2023 05:24:20 PM Interpretation:Negative Performing Lab:[address] [address] Notes/Report: Blood Culture (First) No growth after 5 days. Blood Culture (Second) Reviewed date:04/18/2023 09:10:55 AM Interpretation:Negative Performing Lab:[facility], [address] [place] [phone] Notes/Report: Blood Culture (Second) No growth after 5 days. Complete Blood Count Auto Di ff Reviewed date:04/24/2023 06:35:30 PM Interpretation:Abnormal Performing Lab:[facility], [address] [place] [phone] Notes/Report: White Blood Count 9.3 4.8-10.8 X10*3/uL [...] t Reviewed date:04/24/2023 06:35:30 PM Interpretation:Abnormal Performing Lab:[facility], [address] [place] [phone] Notes/Report: Urine, Clean Catch Color Urine Yellow Appearance Urine Clear PH 6.0 5.0-9.0 Glucose Urine UA Negative Negative mg/dL Urine Blood Moderate (2+) Negative Specific [place] - Urine 1.010 1.005-1.025 Urine Protein Negative Neg-Trace mg/dL Urine Ketones Negative Negative mg/dL Nitrite Urine Negative Negative Leukocyte Esterase Urine Moderate (2+) Negative RBC Urine 11-20 0-2 /HPF WBC Urine 11-20 0-5 /HPF Squamous Epithelial Cell Urine 0-2 0-2 /HPF Bacteria Urine None Seen None Seen Hyaline Casts Urine 0-2 0-2 /LPF Comprehensive Met. Panel Reviewed date:04/24/2023 06:35:30 PM Interpretation:Abnormal Performing Lab:[facility], [address] [place] [phone] Notes/Report: Sodium 137 135-145 mmol/L Potassium 3.8 [...] Estimated Glomerular Filt Rate 37 NOTE: For -Russian individuals, multiply the result by 1.210. Chronic [...] SARS-CoV2/FLU/RSV Reviewed date:04/24/2023 06:35:30 PM Interpretation:Negative Performing Lab:[facility], [address] [place] [phone] Notes/Report: Influenza A PCR NEGATIVE Negative Influenza [...] by authorized laboratories. Testing performed on the [employer] GeneXpert utilizing real-time RT-PCR. All SARS CoV2 and positive influenza A/B results are reported to [facility]. Lactic Acid Reviewed date:04/25/2023 11:17:08 AM Interpretation:Normal Performing Lab:[facility], [address] [place] [phone] Notes/Report: Lactic Acid 1.3 0.5-2.0 mmol/L Complete Blood Count Auto Di ff Reviewed date:04/25/2023 11:17:08 AM Interpretation:Abnormal Performing Lab:[facility], [address] [place] [phone] Notes/Report: White Blood Count 6.3 4.8-10.8 X10*3/uL [...] Panel Reviewed date:04/25/2023 11:17:08 AM Interpretation:Abnormal Performing Lab:[facility], [address] [place] [phone] Notes/Report: Sodium 138 135-145 mmol/L Potassium 4.0 [...] Estimated Glomerular Filt Rate 35 NOTE: For -Russian individuals, multiply the result by 1.210. Chronic Kidney Disease: Estimated GFR < 60 mL/min/1.73m2 Severe Kidney Disease: Estimated GFR < 15 mL/min/1.73m2 Glucose Random 108 60-115 mg/dL Calcium 8.4 8.4-10.2 mg/dL Glucose, Whole Blood Reviewed date:04/25/2023 11:17:08 AM Interpretation:Abnormal Performing Lab:[facility], [address] [place] [phone] Notes/Report: Glucose, Whole Blood 121 60-115 mg/dL METER # : [id number] Urine Culture Reviewed date:04/25/2023 11:17:08 AM Interpretation:Abnormal Performing Lab:[facility], [address] [place] [phone] Notes/Report: O:STRVID Streptococcus viridans group Urine Culture Quant Urine Culture 50,000 to 100,000 cfu/mL Urine Culture CATH HOST HOSTESS? Urine Culture Susceptibility not routinely performed on this isolate. Glucose, Whole Blood Reviewed date:04/25/2023 01:40:34 PM Interpretation:Normal Performing Lab:[facility], [address] [place] [phone] Notes/Report: Glucose, Whole Blood 104 60-115 mg/dL METER # : [id number] Glucose, Whole Blood Reviewed date:04/25/2023 08:36:54 PM Interpretation:Normal Performing Lab:[facility], [address] [place] [phone] Notes/Report: Glucose, Whole Blood 107 60-115 mg/dL METER # : [id number] Glucose, Whole Blood Reviewed date:04/25/2023 10:42:39 PM Interpretation:Abnormal Performing Lab:[facility], [address] [place] [phone] Notes/Report: Glucose, Whole Blood 141 60-115 mg/dL METER # : [id number] Hold Lav - Possible Hematolo gy Reviewed date:04/26/2023 09:08:07 AM Interpretation:Hold Performing Lab:[address] [phone] Notes/Report: Hold Lav - Possible Hematology SEE NOTE Specimen will be held untested for 8 hours. Call Hematology if testing is desired. Creatinine Reviewed date:04/26/2023 09:08:07 AM Interpretation:Normal Performing Lab:[facility], [address] [place] [phone] Notes/Report: Creatinine 1.27 0.5-1.4 mg/dL Creatinine Clr Calc Pharmacy 42.8 Provided height and weight: 162.56 cm, 97.8 kg. eGFR (calculated from the MDRD study equation) and eCrCl (calculated from the Cockcroft-Gault equation) are based on different parameters and may not yield comparable results. If eCrCl result is absurd, please check patient's height/weight. Estimated Glomerular Filt Rate 41 NOTE: For -Russian individuals, multiply the result by 1.210. Chronic Kidney Disease: Estimated GFR < 60 mL/min/1.73m2 Severe Kidney Disease: Estimated GFR < 15 mL/min/1.73m2 Glucose, Whole Blood Reviewed date:04/26/2023 09:08:07 AM Interpretation:Normal Performing Lab:[facility], [address] [place] [phone] Notes/Report: Glucose, Whole Blood 107 60-115 mg/dL METER # : [id number] Glucose, Whole Blood Reviewed date:04/26/2023 11:15:52 AM Interpretation:Normal Performing Lab:[facility], [address] [place] [phone] Notes/Report: Glucose, Whole Blood 112 60-115 mg/dL METER # : [id number] Glucose, Whole Blood Reviewed date:04/26/2023 04:23:30 PM Interpretation:Abnormal Performing Lab:[facility], [address] [place] [phone] Notes/Report: Glucose, Whole Blood 123 60-115 mg/dL METER # : [id number] Glucose, Whole Blood Reviewed date:04/27/2023 09:28:01 AM Interpretation:Abnormal Performing Lab:[facility], [address] [place] [phone] Notes/Report: Glucose, Whole Blood 143 60-115 mg/dL METER # : [id number] Vancomycin Random Reviewed date:04/27/2023 09:28:01 AM Interpretation:Low Performing Lab:[facility], [address] [place] [phone] Notes/Report: Vancomycin Random 11.6 15-20 mcg/mL Creatinine Reviewed date:04/27/2023 09:28:01 AM Interpretation:Abnormal Performing Lab:[facility], [address] [place] [phone] Notes/Report: Creatinine 1.30 0.5-1.4 mg/dL Creatinine Clr Calc Pharmacy 41.7 Provided height and weight: 162.56 cm, 97.8 kg. eGFR (calculated from the MDRD study equation) and eCrCl (calculated from the Cockcroft-Gault equation) are based on different parameters and may not yield comparable results. If eCrCl result is absurd, please check patient's height/weight. Estimated Glomerular Filt Rate 40 NOTE: For -Russian individuals, multiply the result by 1.210. Chronic Kidney Disease: Estimated GFR < 60 mL/min/1.73m2 Severe Kidney Disease: Estimated GFR < 15 mL/min/1.73m2 Glucose, Whole Blood Reviewed date:04/27/2023 09:28:01 AM Interpretation:Normal Performing Lab:[facility], [address] [place] [phone] Notes/Report: Glucose, Whole Blood 94 60-115 mg/dL METER # : [id number] Glucose, Whole Blood Reviewed date:04/27/2023 12:03:35 PM Interpretation:Abnormal Performing Lab:[facility], [address] [place] [phone] Notes/Report: Glucose, Whole Blood 135 60-115 mg/dL METER # : [id number] Glucose, Whole Blood Reviewed date:04/27/2023 05:12:58 PM Interpretation:Abnormal Performing Lab:[facility], [address] [place] [phone] Notes/Report: Glucose, Whole Blood 160 60-115 mg/dL METER # : [id number] Glucose, Whole Blood Reviewed date:04/28/2023 04:05:46 PM Interpretation:Abnormal Performing Lab:[facility], [address] [place] [phone] Notes/Report: Glucose, Whole Blood 128 60-115 mg/dL METER # : [id number] Vancomycin Random Reviewed date:04/28/2023 03:21:35 PM Interpretation:Low Performing Lab:[facility], [address] [place] [phone] Notes/Report: Vancomycin Random 12.0 15-20 mcg/mL Hold Lav - Possible Hematolo gy Reviewed date:04/28/2023 03:21:35 PM Interpretation:Hold Performing Lab:[facility], [address] [place] [phone] Notes/Report: Hold Lav - Possible Hematology SEE NOTE Specimen will be held untested for 8 hours. Call Hematology if testing is desired. Creatinine Reviewed date:04/28/2023 03:21:35 PM Interpretation:Normal Performing Lab:[facility], [address] [place] [phone] Notes/Report: Creatinine 1.02 0.5-1.4 mg/dL Creatinine Clr Calc Pharmacy 53.2 Provided height and weight: 162.56 cm, 97.8 kg. eGFR (calculated from the MDRD study equation) and eCrCl (calculated from the Cockcroft-Gault equation) are based on different parameters and may not yield comparable results. If eCrCl result is absurd, please check patient's height/weight. Estimated Glomerular Filt Rate 53 NOTE: For -Russian individuals, multiply the result by 1.210. Chronic Kidney Disease: Estimated GFR < 60 mL/min/1.73m2 Severe Kidney Disease: Estimated GFR < 15 mL/min/1.73m2 Glucose, Whole Blood Reviewed date:04/28/2023 03:21:35 PM Interpretation:Normal Performing Lab:[facility], [address] [place] [phone] Notes/Report: Glucose, Whole Blood 90 60-115 mg/dL METER # : [id number] Glucose, Whole Blood Reviewed date:04/28/2023 03:21:35 PM Interpretation:Normal Performing Lab:[facility], [address] [place] [phone] Notes/Report: Glucose, Whole Blood 101 60-115 mg/dL METER # : [id number] Glucose, Whole Blood Reviewed date:04/28/2023 03:21:35 PM Interpretation:Abnormal Performing Lab:[facility], [address] [place] [phone] Notes/Report: Glucose, Whole Blood 212 60-115 mg/dL METER # : [id number] Glucose, Whole Blood Reviewed date:04/28/2023 11:20:44 PM Interpretation:Normal Performing Lab:[facility], [address] [place] [phone] Notes/Report: Glucose, Whole Blood 93 60-115 mg/dL METER # : [id number] Glucose, Whole Blood Reviewed date:04/28/2023 11:20:44 PM Interpretation:Abnormal Performing Lab:[facility], [address] [place] [phone] Notes/Report: Glucose, Whole Blood 137 60-115 mg/dL METER # : [id number] Hold Lav - Possible Hematolo gy Reviewed date:04/29/2023 09:29:12 AM Interpretation:Hold Performing Lab:[facility], [address] [place] [phone] Notes/Report: Hold Lav - Possible Hematology SEE NOTE Specimen will be held untested for 8 hours. Call Hematology if testing is desired. Creatinine Reviewed date:04/29/2023 09:29:12 AM Interpretation:Abnormal Performing Lab:[facility], [address] [place] [phone] Notes/Report: Creatinine 1.26 0.5-1.4 mg/dL Creatinine Clr Calc Pharmacy 43.1 Provided height and weight: 162.56 cm, 97.8 kg. eGFR (calculated from the MDRD study equation) and eCrCl (calculated from the Cockcroft-Gault equation) are based on different parameters and may not yield comparable results. If eCrCl result is absurd, please check patient's height/weight. Estimated Glomerular Filt Rate 41 NOTE: For -Russian individuals, multiply the result by 1.210. Chronic Kidney Disease: Estimated GFR < 60 mL/min/1.73m2 Severe Kidney Disease: Estimated GFR < 15 mL/min/1.73m2 Glucose, Whole Blood Reviewed date:04/29/2023 09:29:12 AM Interpretation:Normal Performing Lab:[facility], [address] [place] [phone] Notes/Report: Glucose, Whole Blood 107 60-115 mg/dL METER # : [id number] Glucose, Whole Blood Reviewed date:04/29/2023 11:56:17 AM Interpretation:Abnormal Performing Lab:[facility], [address] [place] [phone] Notes/Report: Glucose, Whole Blood 123 60-115 mg/dL METER # : [id number] Pathology Reviewed date:04/29/2023 04:01:14 PM Interpretation:Benign Performing Lab:[facility], [address] [place] [phone] Notes/Report: Glucose, Whole Blood Reviewed date:04/30/2023 12:50:15 PM Interpretation:Abnormal Performing Lab:[facility], [address] [place] [phone] Notes/Report: Glucose, Whole Blood 134 60-115 mg/dL METER # : [id number] Glucose, Whole Blood Reviewed date:04/30/2023 12:50:15 PM Interpretation:Abnormal Performing Lab:[facility], [address] [place] [phone] Notes/Report: Glucose, Whole Blood 142 60-115 mg/dL METER # : [id number] Blood Culture < 90 LBS Reviewed date:04/30/2023 12:49:02 PM Interpretation:Negative Performing Lab:[facility], [address] [place] [phone] Notes/Report: Blood Culture X1 No growth after 5 days. Hold Lav - Possible Hematolo gy Reviewed date:04/30/2023 12:49:22 PM Interpretation:Hold Performing Lab:[facility], [address] [place] [phone] Notes/Report: Hold Lav - Possible Hematology SEE NOTE Specimen will be held untested for 8 hours. Call Hematology if testing is desired. Creatinine Reviewed date:04/30/2023 12:50:15 PM Interpretation:Abnormal Performing Lab:[facility], [address] [place] [phone] Notes/Report: Creatinine 1.03 0.5-1.4 mg/dL Creatinine Clr Calc Pharmacy 52.7 Provided height and weight: 162.56 cm, 97.8 kg. eGFR (calculated from the MDRD study equation) and eCrCl (calculated from the Cockcroft-Gault equation) are based on different parameters and may not yield comparable results. If eCrCl result is absurd, please check patient's height/weight. Estimated Glomerular Filt Rate 52 NOTE: For -Russian individuals, multiply the result by 1.210. Chronic Kidney Disease: Estimated GFR < 60 mL/min/1.73m2 Severe Kidney Disease: Estimated GFR < 15 mL/min/1.73m2 Glucose, Whole Blood Reviewed date:04/30/2023 12:50:15 PM Interpretation:Normal Performing Lab:[facility], [address] [place] [phone] Notes/Report: Glucose, Whole Blood 99 60-115 mg/dL METER # : [id number] Complete Blood Count Auto Di ff Reviewed date:07/03/2023 11:45:43 AM Interpretation:Normal Performing Lab:[facility], [address] [place] [phone] Notes/Report: White Blood Count 8.5 4.8-10.8 X10*3/uL [...] Cult Reviewed date:07/03/2023 11:45:43 AM Interpretation:Abnormal Performing Lab:[facility], [address] [place] [phone] Notes/Report: [id number] Urine, Clean Catch Color Urine Yellow Appearance Urine Cloudy PH 6.0 5.0-9.0 Glucose Urine UA 100 Negative mg/dL Urine Blood Large (3+) Negative Specific [place] - Urine 1.015 1.005-1.025 Urine Protein 30 (1+) Neg-Trace mg/dL Urine Ketones Negative Negative mg/dL Nitrite Urine Negative Negative Leukocyte Esterase Urine Large (3+) Negative UA ClnCatch+Micro w/rflx Cul t Reviewed date:07/03/2023 11:45:43 AM Interpretation:Abnormal Performing Lab:[facility], [address] [place] [phone] Notes/Report: [id number] Urine, Clean Catch Color Urine Yellow Appearance Urine Cloudy PH 6.0 5.0-9.0 Glucose Urine UA 100 Negative mg/dL Urine Blood Large (3+) Negative Specific [place] - Urine 1.015 1.005-1.025 Urine Protein 30 (1+) Neg-Trace mg/dL Urine Ketones Negative Negative mg/dL Nitrite Urine Negative Negative Leukocyte Esterase Urine Large (3+) Negative RBC Urine >20 0-2 /HPF WBC Urine >50 0-5 /HPF Squamous Epithelial Cell Urine 0-2 0-2 /HPF Bacteria Urine None Seen None Seen Hyaline Casts Urine 0-2 0-2 /LPF Liver Panel Reviewed date:07/03/2023 11:43:48 AM Interpretation:Normal Performing Lab:[facility], [address] [place] [phone] Notes/Report: Bilirubin Total 0.4 0.0-1.0 mg/dL Bilirubin Direct 0.2 0.0-0.5 mg/dL Aspartate Amino Transferase 29 5-31 U/L Alanine Aminotransferase 26 0-31 U/L Total Protein 7.9 6.5-8.0 g/dL Albumin Level 3.8 3.5-5.0 g/dL Alkaline Phosphatase 64 39-117 U/L Basic Metabolic Panel Reviewed date:07/03/2023 11:44:40 AM Interpretation:Abnormal Performing Lab:[facility], [address] [place] [phone] Notes/Report: Sodium 138 135-145 mmol/L Potassium 4.3 [...] Estimated Glomerular Filt Rate 31 NOTE: For -Russian individuals, multiply the result by 1.210. Chronic Kidney Disease: Estimated GFR < 60 mL/min/1.73m2 Severe Kidney Disease: Estimated GFR < 15 mL/min/1.73m2 Glucose Random 172 60-115 mg/dL Calcium 9.4 8.4-10.2 mg/dL Urine Culture Reviewed date:07/04/2023 10:16:40 AM Interpretation:Abnormal Performing Lab:[facility], [address] [place] [phone] Notes/Report: O:PROMIR Proteus mirabilis Urine Culture Quant Urine Culture 10,000 to 50,000 cfu/mL Ampicillin <=2 Ceftriaxone <=0.25 Gentamicin <=1 Nitrofurantoin 128 Trimethoprim/Sulfamethox azole <=20 Bacterial Vaginosis Panel Reviewed date:07/06/2023 05:45:16 PM Interpretation:Negative Performing Lab:[facility], [address] [place] [phone] Notes/Report: Trichomonas vaginalis PCR NOT DETECTED Not [...] Culture Reviewed date:07/21/2023 11:53:01 AM Interpretation:Abnormal Performing Lab:[facility], [address] [place] [phone] Notes/Report: Urine Culture Report Result Urine Culture < 10,000 cfu/ml Urinalysis and Microscopic Reviewed date:07/20/2023 09:57:35 AM Interpretation:Abnormal Performing Lab:[facility], [address] [place] [phone] Notes/Report: Color Urine Yellow Appearance Urine Clear PH 6.0 5.0-9.0 Glucose Urine UA Negative Negative mg/dL Urine Blood Moderate (2+) Negative Specific [place] - Urine <= 1.005 1.005-1.025 Urine Protein [...] t Reviewed date:07/22/2023 09:03:33 AM Interpretation:Abnormal Performing Lab:[facility], [address] [place] [phone] Notes/Report: 0118 Urine, Clean Catch Color Urine Red Appearance Urine Turbid PH 5.5 5.0-9.0 Glucose Urine UA Negative Negative mg/dL Urine Blood Large (3+) Negative Specific [place] - Urine 1.010 1.005-1.025 Urine Protein 100 (2+) Neg-Trace mg/dL Urine Ketones Negative Negative mg/dL Nitrite Urine Negative Negative Leukocyte Esterase Urine Large (3+) Negative RBC Urine >20 0-2 /HPF WBC Urine >50 0-5 /HPF Squamous Epithelial Cell Urine 0-2 0-2 /HPF Bacteria Urine None Seen None Seen Hyaline Casts Urine 0-2 0-2 /LPF Urine Culture Reviewed date:07/23/2023 10:17:54 PM Interpretation:Abnormal Performing Lab:[facility], [address] [place] [phone] Notes/Report: Urine Culture Report Result Urine Culture 10,000 to 50,000 cfu/ml Urine Culture Mixed bacterial ray a characteristic of Urine Culture urogenital contamination. C Reactive Protein Reviewed date:08/16/2023 04:50:12 PM Interpretation:Abnormal Performing Lab:[address] [phone] Notes/Report: C Reactive Protein 1.64 < or = 0.50 mg/dL Basic Metabolic Panel Reviewed date:08/16/2023 04:50:12 PM Interpretation:Abnormal Performing Lab:[address] [phone] Notes/Report: Sodium 137 135-145 mmol/L Potassium 3.8 3.3-5.1 mmol/L Chloride 106 96-108 mmol/L Carbon Dioxide 23 22-29 mmol/L Anion Gap 12 12-20 Blood Urea Nitrogen 21 9-16 mg/dL Creatinine 1.34 0.5-1.4 mg/dL Estimated Glomerular Filt Rate 38 NOTE: For -Russian individuals, multiply the result by 1.210. Chronic Kidney Disease: Estimated GFR < 60 mL/min/1.73m2 Severe Kidney Disease: Estimated GFR < 15 mL/min/1.73m2 Glucose Random 153 60-115 mg/dL Calcium 9.2 8.4-10.2 mg/dL Complete Blood Count Auto Di ff Reviewed date:08/16/2023 04:50:12 PM Interpretation:Normal Performing Lab:[address] [phone] Notes/Report: White Blood Count 9.0 4.8-10.8 X10*3/uL [...] te Reviewed date:08/17/2023 09:09:14 AM Interpretation:Abnormal Performing Lab:[address] [address] Notes/Report: Erythrocyte Sedimentation Rate 51 0-20 MM/HR Patients with polycythemia and many hemoglobin abnormalities may have depressed sed rates whereas patients with anemia may have elevated sed rates. UA ClnCatch+Micro w/rflx Cul t Reviewed date:10/03/2023 04:53:39 PM Interpretation:Abnormal Performing Lab:[address] [address] Notes/Report: [id number] Urine, Clean Catch Color Urine Yellow Appearance Urine Turbid PH 6.5 5.0-9.0 Glucose Urine UA 100 Negative mg/dL Urine Blood Moderate (2+) Negative Specific [place] - Urine 1.015 1.005-1.025 Urine Protein 100 [...] ff Reviewed date:10/03/2023 04:53:39 PM Interpretation:Abnormal Performing Lab:[facility], [address] [place] [address] Notes/Report: White Blood Count 12.0 4.8-10.8 X10*3/uL [...] Panel Reviewed date:10/03/2023 04:53:39 PM Interpretation:Abnormal Performing Lab:[facility], [address] [place] [phone] Notes/Report: Sodium 136 135-145 mmol/L Potassium 4.3 [...] Estimated Glomerular Filt Rate 27 NOTE: For -Russian individuals, multiply the result by 1.210. Chronic [...] Panel Reviewed date:10/03/2023 04:53:39 PM Interpretation:Normal Performing Lab:[facility], [address] [place] [address] Notes/Report: Bilirubin Direct 0.4 0.0-0.5 mg/dL Slight Hem olysis Lipase Reviewed date:10/03/2023 04:53:39 PM Interpretation:Normal Performing Lab:[facility], [address] [place] [phone] Notes/Report: Lipase 12 8-78 U/L SARS-CoV2/FLU/RSV Reviewed date:10/03/2023 04:54:02 PM Interpretation:Negative Performing Lab:[address] [address] Notes/Report: Influenza A PCR NEGATIVE Negative Influenza [...] by authorized laboratories. Testing performed on the [employer] GeneXpert utilizing real-time RT-PCR. All SARS CoV2 and positive influenza A/B results are reported to [facility]. Lactic Acid Reviewed date:10/04/2023 09:13:26 AM Interpretation:Abnormal Performing Lab:[address] [address] Notes/Report: Lactic Acid 2.5 0.5-2.0 mmol/L Critical value for test(s): LACTIC ACID Results called to and read back by:ANDREIA Person calling:TILA Date:10/04/23 Time:0022 Lactic Acid-LAB USE ONLY Reviewed date:10/04/2023 09:13:26 AM Interpretation:Normal Performing Lab:[facility], [address] [place] [phone] Notes/Report: Lactic Acid-LAB USE ONLY 1.1 0.5-2.0 mmol/L Glucose, Whole Blood Reviewed date:10/04/2023 09:13:26 AM Interpretation:Abnormal Performing Lab:[address] [address] Notes/Report: Glucose, Whole Blood 117 60-115 mg/dL METER # : [id number] Glucose, Whole Blood Reviewed date:10/04/2023 10:09:31 AM Interpretation:Abnormal Performing Lab:[facility], [address] [place] [phone] Notes/Report: Glucose, Whole Blood 128 60-115 mg/dL METER # : [id number] Complete Blood Count Auto Di ff Reviewed date:10/04/2023 10:28:57 AM Interpretation:Abnormal Performing Lab:[facility], [address] [place] [address] Notes/Report: White Blood Count 9.6 4.8-10.8 X10*3/uL [...] Panel Reviewed date:10/04/2023 10:51:28 AM Interpretation:Abnormal Performing Lab:[facility], [address] [place] [address] Notes/Report: Sodium 137 135-145 mmol/L Potassium 4.2 [...] Estimated Glomerular Filt Rate 19 NOTE: For -Russian individuals, multiply the result by 1.210. Chronic Kidney Disease: Estimated GFR < 60 mL/min/1.73m2 Severe Kidney Disease: Estimated GFR < 15 mL/min/1.73m2 Glucose Random 130 60-115 mg/dL Calcium 8.8 8.4-10.2 mg/dL Electrolytes Urine Reviewed date:10/04/2023 03:23:13 PM Interpretation:Normal Performing Lab:[facility], [address] [place] [phone] Notes/Report: Chloride Urine Random 41.0 Sodium Urine Random 61.0 Potassium Urine Random 42.2 Protein Creatinine Ratio, Ur Reviewed date:10/04/2023 03:23:13 PM Interpretation:Abnormal Performing Lab:[facility], [address] [place] [phone] Notes/Report: Creatinine Urine 158.74 Total Protein Urine Random 189 <12 mg/dL Protein/Creatinine Ratio, Ur 1.19 <0.2 The spot urine protein:creatinine ratio may increase to 0.3 during normal . Glucose, Whole Blood Reviewed date:10/04/2023 03:23:13 PM Interpretation:Abnormal Performing Lab:[facility], [address] [place] [phone] Notes/Report: Glucose, Whole Blood 135 60-115 mg/dL METER # : [id number] Glucose, Whole Blood Reviewed date:10/04/2023 10:27:56 PM Interpretation:Abnormal Performing Lab:[facility], [address] [place] [address] Notes/Report: Glucose, Whole Blood 137 60-115 mg/dL METER # : [id number] Creatinine Urine Reviewed date:10/05/2023 09:45:35 AM Interpretation:Normal Performing Lab:[facility], [address] [place] [address] Notes/Report: Creatinine Urine 41.25 Sodium Urine Random Reviewed date:10/05/2023 09:45:35 AM Interpretation:Normal Performing Lab:[facility], [address] [place] [phone] Notes/Report: Sodium Urine Random 55.0 Total Protein Urine Random Reviewed date:10/05/2023 09:45:35 AM Interpretation:Abnormal Performing Lab:[facility], [address] [place] [phone] Notes/Report: Total Protein Urine Random 19 <12 mg/dL Glucose, Whole Blood Reviewed date:10/05/2023 09:45:35 AM Interpretation:Normal Performing Lab:[facility], [address] [place] [phone] Notes/Report: Glucose, Whole Blood 98 60-115 mg/dL METER # : [id number] Glucose, Whole Blood Reviewed date:10/05/2023 09:41:35 AM Interpretation:Normal Performing Lab:[facility], [address] [place] [phone] Notes/Report: Glucose, Whole Blood 107 60-115 mg/dL METER # : [id number] Complete Blood Count no Diff Reviewed date:10/05/2023 09:45:35 AM Interpretation:Abnormal Performing Lab:[facility], [address] [place] [phone] Notes/Report: White Blood Count 6.3 4.8-10.8 X10*3/uL [...] Panel Reviewed date:10/05/2023 09:45:35 AM Interpretation:Abnormal Performing Lab:[address] [address] Notes/Report: Sodium 137 135-145 mmol/L Potassium 4.6 [...] Estimated Glomerular Filt Rate 23 NOTE: For -Russian individuals, multiply the result by 1.210. Chronic Kidney Disease: Estimated GFR < 60 mL/min/1.73m2 Severe Kidney Disease: Estimated GFR < 15 mL/min/1.73m2 Glucose Random 88 60-115 mg/dL Calcium 9.2 8.4-10.2 mg/dL Urine Culture Reviewed date:10/05/2023 09:45:35 AM Interpretation:Abnormal Performing Lab:[address] [address] Notes/Report: Urine Culture Report Result Urine Culture > 100,000 cfu/ml Urine Culture Mixed bacterial ray a characteristic of Urine Culture urogenital contamination. Glucose, Whole Blood Reviewed date:10/05/2023 09:53:46 AM Interpretation:Abnormal Performing Lab:[address], [place] [address] Notes/Report: Glucose, Whole Blood 120 60-115 mg/dL METER # : [id number] Glucose, Whole Blood Reviewed date:10/05/2023 05:55:06 PM Interpretation:Normal Performing Lab:[facility], [address] [place] [phone] Notes/Report: Glucose, Whole Blood 108 60-115 mg/dL METER # : [id number] Glucose, Whole Blood Reviewed date:10/06/2023 04:30:11 PM Interpretation:Normal Performing Lab:[facility], [address] [place] [address] Notes/Report: Glucose, Whole Blood 77 60-115 mg/dL METER # : [id number] Glucose, Whole Blood Reviewed date:10/06/2023 04:30:11 PM Interpretation:Normal Performing Lab:[facility], [address] [place] [address] Notes/Report: Glucose, Whole Blood 97 60-115 mg/dL METER # : [id number] Complete Blood Count no Diff Reviewed date:10/06/2023 04:30:11 PM Interpretation:Abnormal Performing Lab:[facility], [address] [place] [address] Notes/Report: White Blood Count 5.0 4.8-10.8 X10*3/uL [...] g Reviewed date:10/06/2023 04:30:11 PM Interpretation:Abnormal Performing Lab:[facility], [address] [place] [address] Notes/Report: Sodium 139 135-145 mmol/L Potassium 4.1 [...] Estimated Glomerular Filt Rate 36 NOTE: For -Russian individuals, multiply the result by 1.210. Chronic Kidney Disease: Estimated GFR < 60 mL/min/1.73m2 Severe Kidney Disease: Estimated GFR < 15 mL/min/1.73m2 Glucose Fasting 79 60-99 mg/dL Calcium 8.2 8.4-10.2 mg/dL Type and Screen Reviewed date:10/06/2023 04:30:11 PM Interpretation:Negative Performing Lab:[facility], [address] [place] [phone] Notes/Report: Blood Type OP Antibody Screen NEGATIVE Glucose, Whole Blood Reviewed date:10/06/2023 04:30:11 PM Interpretation:Normal Performing Lab:[facility], [address] [place] [address] Notes/Report: Glucose, Whole Blood 96 60-115 mg/dL METER # : [id number] Blood Culture (Second) Reviewed date:10/06/2023 04:30:11 PM Interpretation:Positive Performing Lab:[address] [address] Notes/Report: Blood Culture (Second) Results of Blood [...] DR [facility] on 10/04/23 [facility] (Second) Results of Blood Culture [...] confirmed by DR [facility]ANUE[facility] on [facility]232132 [facility] Blood Culture (Second) Results of Blood Culture [...] (Second) Gram stain review ed by a Planer Setter Results of Blood Culture gram stain sent [...] C3 Reviewed date:10/06/2023 04:30:11 PM Interpretation:Normal Performing Lab:[address] [address] Notes/Report: Complement C3 147 83-193 mg/dL THIS TEST WAS PERFORMED AT: [facility] [address] [place] [phone] MIGUEL STERN MD Complement C4 Reviewed date:10/06/2023 04:30:11 PM Interpretation:Normal Performing Lab:[address] [address] Notes/Report: Complement C4 20 15-57 mg/dL THIS TEST WAS PERFORMED AT: [facility] [address] [place] [phone] MIGUEL STERN MD Glucose, Whole Blood Reviewed date:10/06/2023 04:30:11 PM Interpretation:Abnormal Performing Lab:[facility], [address] [place] [address] Notes/Report: Glucose, Whole Blood 167 60-115 mg/dL METER # : [id number] Glucose, Whole Blood Reviewed date:10/06/2023 09:53:01 PM Interpretation:Abnormal Performing Lab:[address] [address] Notes/Report: Glucose, Whole Blood 150 60-115 mg/dL METER # : [id number] Vancomycin Random Reviewed date:10/06/2023 09:53:46 PM Interpretation:Subtherapeutic Performing Lab:[facility], [address] [place] [phone] Notes/Report: Vancomycin Random 13.1 15-20 mcg/mL Glucose, Whole Blood Reviewed date:10/07/2023 09:06:02 AM Interpretation:Abnormal Performing Lab:[facility], [address] [place] [address] Notes/Report: Glucose, Whole Blood 123 60-115 mg/dL METER # : [id number] Complete Blood Count no Diff Reviewed date:10/07/2023 09:06:02 AM Interpretation:Abnormal Performing Lab:[facility], [address] [place] [address] Notes/Report: White Blood Count 14.6 4.8-10.8 X10*3/uL [...] g Reviewed date:10/07/2023 09:06:02 AM Interpretation:Abnormal Performing Lab:[facility], [address] [place] [address] Notes/Report: Sodium 137 135-145 mmol/L Potassium 4.7 [...] Estimated Glomerular Filt Rate 35 NOTE: For -Russian individuals, multiply the result by 1.210. Chronic Kidney Disease: Estimated GFR < 60 mL/min/1.73m2 Severe Kidney Disease: Estimated GFR < 15 mL/min/1.73m2 Glucose Fasting 111 60-99 mg/dL A fasting glucose from 100-125 mg/dl is considered impaired (pre-diabetes). Calcium 8.4 8.4-10.2 mg/dL Glucose, Whole Blood Reviewed date:10/07/2023 12:18:24 PM Interpretation:Abnormal Performing Lab:[facility], [address] [place] [phone] Notes/Report: Glucose, Whole Blood 119 60-115 mg/dL METER # : [id number] Glucose, Whole Blood Reviewed date:10/07/2023 04:23:31 PM Interpretation:Normal Performing Lab:[facility], [address] [place] [address] Notes/Report: Glucose, Whole Blood 115 60-115 mg/dL METER # : [id number] Glucose, Whole Blood Reviewed date:10/08/2023 10:02:02 AM Interpretation:Abnormal Performing Lab:[facility], [address] [place] [phone] Notes/Report: Glucose, Whole Blood 154 60-115 mg/dL METER # : [id number] Basic Metabolic Panel Fastin g Reviewed date:10/08/2023 10:02:02 AM Interpretation:Abnormal Performing Lab:[facility], [address] [place] [phone] Notes/Report: PT with nurse. Will come back [...] Estimated Glomerular Filt Rate 33 NOTE: For -Russian individuals, multiply the result by 1.210. Chronic Kidney Disease: Estimated GFR < 60 mL/min/1.73m2 Severe Kidney Disease: Estimated GFR < 15 mL/min/1.73m2 Glucose Fasting 102 60-99 mg/dL A fasting glucose from 100-125 mg/dl is considered impaired (pre-diabetes). Calcium 8.3 8.4-10.2 mg/dL Magnesium Reviewed date:10/08/2023 10:02:02 AM Interpretation:Normal Performing Lab:[facility], [address] [place] [phone] Notes/Report: PT with nurse. Will come back @ 06:03 caronm Magnesium 1.7 1.6-2.6 mg/dL Complete Blood Count no Diff Reviewed date:10/08/2023 10:02:02 AM Interpretation:Abnormal Performing Lab:[facility], [address] [place] [phone] Notes/Report: PT with nurse. Will come back [...] Blood Reviewed date:10/08/2023 10:02:02 AM Interpretation:Normal Performing Lab:[facility], [address] [place] [phone] Notes/Report: Glucose, Whole Blood 95 60-115 mg/dL METER # : [id number] Glucose, Whole Blood Reviewed date:10/09/2023 09:27:19 AM Interpretation:Abnormal Performing Lab:[facility], [address] [place] [phone] Notes/Report: Glucose, Whole Blood 142 60-115 mg/dL METER # : [id number] Glucose, Whole Blood Reviewed date:10/09/2023 09:27:19 AM Interpretation:Abnormal Performing Lab:[facility], [address] [place] [address] Notes/Report: Glucose, Whole Blood 136 60-115 mg/dL METER # : [id number] Glucose, Whole Blood Reviewed date:10/09/2023 09:27:19 AM Interpretation:Abnormal Performing Lab:[facility], [address] [place] [phone] Notes/Report: Glucose, Whole Blood 154 60-115 mg/dL METER # : [id number] Blood Culture (First) Reviewed date:10/09/2023 09:27:19 AM Interpretation:Negative Performing Lab:[facility], [address] [place] [address] Notes/Report: Blood Culture (First) No growth after 5 days. Glucose, Whole Blood Reviewed date:10/09/2023 09:27:19 AM Interpretation:Abnormal Performing Lab:[facility], [address] [place] [address] Notes/Report: Glucose, Whole Blood 119 60-115 mg/dL METER # : [id number] Complete Blood Count no Diff Reviewed date:10/09/2023 09:27:19 AM Interpretation:Abnormal Performing Lab:[facility], [address] [place] [address] Notes/Report: White Blood Count 13.5 4.8-10.8 X10*3/uL [...] g Reviewed date:10/09/2023 09:27:19 AM Interpretation:Abnormal Performing Lab:[facility], [address] [place] [phone] Notes/Report: Sodium 134 135-145 mmol/L Potassium 3.6 [...] Estimated Glomerular Filt Rate 38 NOTE: For -Russian individuals, multiply the result by 1.210. Chronic Kidney Disease: Estimated GFR < 60 mL/min/1.73m2 Severe Kidney Disease: Estimated GFR < 15 mL/min/1.73m2 Glucose Fasting 126 60-99 mg/dL A fasting glucose of 126 mg/dl or greater on more than one occasion is considered diagnostic of diabetes. Calcium 8.1 8.4-10.2 mg/dL Glucose, Whole Blood Reviewed date:10/09/2023 06:04:03 PM Interpretation:Abnormal Performing Lab:[facility], [address] [place] [address] Notes/Report: Glucose, Whole Blood 151 60-115 mg/dL METER # : [id number] Glucose, Whole Blood Reviewed date:10/09/2023 06:03:42 PM Interpretation:Abnormal Performing Lab:[facility], [address] [place] [phone] Notes/Report: Glucose, Whole Blood 151 60-115 mg/dL METER # : [id number] Glucose, Whole Blood Reviewed date:10/10/2023 10:54:27 AM Interpretation:Abnormal Performing Lab:[facility], [address] [place] [phone] Notes/Report: Glucose, Whole Blood 156 60-115 mg/dL METER # : [id number] Glucose, Whole Blood Reviewed date:10/10/2023 10:54:27 AM Interpretation:Abnormal Performing Lab:[facility], [address] [place] [address] Notes/Report: Glucose, Whole Blood 152 60-115 mg/dL METER # : [id number] Glucose, Whole Blood Reviewed date:10/10/2023 12:24:10 PM Interpretation:Abnormal Performing Lab:[facility], [address] [place] [phone] Notes/Report: Glucose, Whole Blood 170 60-115 mg/dL METER # : [id number] Glucose, Whole Blood Reviewed date:10/10/2023 07:37:21 PM Interpretation:Abnormal Performing Lab:[facility], [address] [place] [phone] Notes/Report: Glucose, Whole Blood 146 60-115 mg/dL METER # : [id number] Glucose, Whole Blood Reviewed date:10/10/2023 09:13:04 PM Interpretation:Abnormal Performing Lab:[facility], [address] [place] [phone] Notes/Report: Glucose, Whole Blood 180 60-115 mg/dL METER # : [id number] Glucose, Whole Blood Reviewed date:10/11/2023 09:07:30 AM Interpretation:Normal Performing Lab:[facility], [address] [place] [phone] Notes/Report: Glucose, Whole Blood 104 60-115 mg/dL METER # : [id number] Glucose, Whole Blood Reviewed date:10/11/2023 11:43:46 AM Interpretation:Abnormal Performing Lab:[facility], [address] [place] [phone] Notes/Report: Glucose, Whole Blood 206 60-115 mg/dL METER # : [id number] Pathology Reviewed date:10/12/2023 10:47:27 AM Interpretation:Benign Performing Lab:[facility], [address] [place] [phone] Notes/Report: Immunofixation Pnl, Serum Reviewed date:10/13/2023 10:11:48 PM Interpretation:Abnormal Performing Lab:[facility], [address] [place] [phone] Notes/Report: IgG 2700 602-9612 mg/dL IgA 415 70-320 mg/dL IgM 98 50-300 mg/dL THIS TEST WAS PERFORMED AT: [facility] [address] [place] [phone] MIGUEL STERN MD Immunofixation Interpretation SEE NOTE No monoclonal protei ns detected. Anti Glomerular Basement Mem b Reviewed date:10/13/2023 10:11:17 PM Interpretation:Negative Performing Lab:[facility], [address] [place] [phone] Notes/Report: Anti Glomerular Basement Memb <1.0 Value Interpretation ----- <1.0 No Antibody Detected > or = 1.0 Antibody Detected THIS TEST WAS PERFORMED AT: [facility] [address] [place] [phone] MIGUEL STERN MD ANCA Vasculitides Reviewed date:10/13/2023 10:10:44 PM Interpretation:Negative Performing Lab:[address] [address] Notes/Report: Myeloperoxidase Antibody <1.0 Value Interpretation ----- [...] = 1.0 Antibody Detected Autoantibodies to proteinase-3 (NE-3) are accepted as characteristic for granulomatosis with polyangiitis (GPA, Shirley's), and are detectable in 95% of the histologically proven cases. The cytoplasmic IFA pattern, (c-ANCA), is based largely on autoantibody to NE-3 which serves as the primary antigen. These autoantibodies are present in active disease. THIS TEST WAS PERFORMED AT: [facility] [address] [place] [phone] MIGUEL STERN MD Complete Blood Count Auto Di ff Reviewed date:12/09/2023 02:19:18 PM Interpretation:Abnormal Performing Lab:[facility], [address] [place] [phone] Notes/Report: White Blood Count 10.0 4.8-10.8 X10*3/uL [...] A1c Reviewed date:12/09/2023 02:19:02 PM Interpretation:Normal Performing Lab:[facility], [address] [place] [phone] Notes/Report: Hemoglobin A1c % 5.4 <6.0 % [...] average glucose, using the formula of the W0N-Dqesoej Average Glucose study (ADAG), Diabetes Care, Vol.31,#8, Sep. 2007 Comprehensive [place]. Panel Fa Reviewed date:12/09/2023 03:47:51 PM Interpretation:Abnormal Performing Lab:[facility], [address] [place] [phone] Notes/Report: Sodium 137 135-145 mmol/L Potassium 4.1 3.3-5.1 mmol/L Chloride 106 96-108 mmol/L Carbon Dioxide 19 22-29 mmol/L Anion Gap 16 12-20 Blood Urea Nitrogen 16 9-16 mg/dL Creatinine 1.16 0.5-1.4 mg/dL Estimated Glomerular Filt Rate 45 NOTE: For -Russian individuals, multiply the result by 1.210. Chronic [...] PROFILE Reviewed date:12/09/2023 03:47:51 PM Interpretation:Abnormal Performing Lab:[address] [address] Notes/Report: Iron 25 30-160 mcg/dL Total Iron Binding Capacity 191 228-428 mcg/dL Percent Iron Saturation 13 15-50 % Unsaturated Iron Binding 166 Ferritin Reviewed date:12/09/2023 03:47:51 PM Interpretation:Normal Performing Lab:[facility], [address] [place] [phone] Notes/Report: Ferritin 79 10-250 ng/mL Lipid Panel Reviewed date:12/09/2023 03:47:51 PM Interpretation:Normal Performing Lab:[address] [address] Notes/Report: Triglycerides 88 <150 mg/dL Desirable Triglyceride: [...] Total Reviewed date:12/09/2023 03:47:51 PM Interpretation:Abnormal Performing Lab:[address] [address] Notes/Report: Vitamin D 25-OH Total 23.4 >30 [...] Hormone Reviewed date:12/09/2023 03:47:51 PM Interpretation:Normal Performing Lab:[facility], [address] [place] [address] Notes/Report: Thyroid Stimulating Hormone 2.91 0.32-4.0 uIU/mL Note: A sustained TSH level above 2.5 uIU/mL may warrant further investigation. TSH 3rd Generation ([facility]) XR chest 2V Reviewed date:04/24/2023 06:36:25 PM Interpretation:Normal Performing Lab: Notes/Report: [address] [address] XRay Report Signed Patient: Xi Garrison MR#: [id number] 92 : 1945 Acct:[id number] Age/Sex: 78 / F ADM Date: 04/24/23 Loc: .ED Attending Dr: Ordering Physician: Silvia Iyer NP Date of Service: 04/24/23 Procedure(s): XR chest 2V Accession Number(s): [id number] cc: Preston Wang DO; Silvia Iyer NP [...] in OV> 04/24/23 1610 DD/ 1547 TD/TT: Liner Replacer: CT chest w con Reviewed date:04/25/2023 01:09:24 PM Interpretation:Abnormal Performing Lab: Notes/Report: [address] [address] [address] Scan Report Signed Patient: Xi Garrison MR#: [id number] 92 : 1945 Acct:[id number] Age/Sex: 78 / F ADM Date: 04/24/23 Loc: HO.ED Attending Dr: Ordering Physician: Kwasi Jett Date of Service: 04/24/23 Procedure(s): CT chest w IV con Accession Number(s): [id number] cc: Kwasi Jett; Preston Wang DO EXAMINATION: [...] iterative reconstruction technique DLP: 408 mGy-cm FINDINGS: PERISHABLE FRUIT INSPECTOR: No consolidation or edema. LUNGS: No abnormality [...] MD in OV> 04/24/232217 DD/ 33 TD/TT: Liner Replacer: JENY CT abdomen pelvis w con Reviewed date:04/25/2023 01:40:17 PM Interpretation:Abnormal Performing Lab: Notes/Report: [place] [address] [address] Scan Report Signed Patient: Xi Garrison MR#: [id number] [birth year] : 1945 Acct:[id number] Age/Sex: 78 / F ADM Date: 04/24/23 Loc: .ED Attending Dr: Ordering Physician: Kwasi Jett Date of Service: 04/24/23 Procedure(s): CT abdomen pelvis w IV con Accession Number(s): [id number] cc: Kwasi Jett; Preston Wang DO EXAMINATION: [...] MD in OV> 04/24/232228 DD/ 33 TD/TT: Liner Replacer: JENY SHAVER guidance in OR Reviewed date:04/27/2023 05:19:45 PM Interpretation:Abnormal Performing Lab: Notes/Report: [place] [address] Fluoroscopy Report Signed Patient: Xi Garrison MR#: [id number] 92 : 1945 Acct:[id number] Age/Sex: 78 / F ADM Date: 04/25/23 Loc: [facility] 350-[address]: Clint Webb MD Ordering Physician: Jose Reis MD Date of Service: 04/25/23 Procedure(s): FL guidance in OR Accession Number(s): [id number] cc: Jose Reis MD; Preston Wang DO [...] in OV> 04/27/23 1642 DD/ 29 TD/TT: Liner Replacer: CHHAYA fistula/abscess/sinus tra ct Reviewed date:04/28/2023 04:07:35 PM Interpretation:Abnormal Performing Lab: Notes/Report: [address] [address] Fluoroscopy Report Signed Patient: Xi Garrison MR#: [id number] [birth year] : 1945 Acct:[id number] Age/Sex: 78 / F ADM Date: 04/25/23 Loc: .S3 350-[address]: Clint Webb MD Ordering Physician: Gilbert Heath Date of Service: 04/27/23 Procedure(s): FL fistula/abscess/sinus tract Accession Number(s): [id number] cc: Preston Wang DO; Gilbert Heath EXAMINATION: FL SINUS TRACT INJECTION CLINICAL INFORMATION: 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 Patient underwent subsequent for percutaneous drainage. Using continues to have drainage from the old drainage catheter site. COMPARISON: CT scan 04/24/2023 TECHNIQUE: 50 mL of Omnipaque 300 was injected through a 6 Mauritanian dilator through the open right flank wound. [...] in OV> 04/28/23 1123 DD/ 1423 TD/TT: Liner Replacer: XR toe LT min 2V Reviewed date:08/14/2023 11:39:48 AM Interpretation:Abnormal Performing Lab: Notes/Report: [address] [address] XRay Report Signed Patient: Xi Garrison MR#: [id number] [birth year] : 1945 Acct:[id number] Age/Sex: 78 / F ADM Date: 08/13/23 Loc: HO.ED Attending Dr: Ordering Physician: Ayesha Roberson Date of Service: 08/13/23 Procedure(s): XR toe LT min 2V Accession Number(s): [id number] cc: Preston Wang DO; Ayesha Roberson EXAMINATION: [...] MD in OV> 08/13/232030 DD/ 31 TD/TT: Liner Replacer: SS MR foot LT wo con Reviewed date:08/24/2023 11:48:47 AM Interpretation:Abnormal Performing Lab: Notes/Report: [address] [address] Magnetic Resonance Report Signed Patient: Xi Garrison MR#: [id number] [birth year] : 1945 Acct:[id number] Age/Sex: 78 / F ADM Date: 08/19/23 Loc: HO.MRI Attending Dr: Preston Wang DO Ordering Physician: Preston Wang DO Date of Service: 08/19/23 Procedure(s): MR foot LT wo con Accession Number(s): [id number] cc: Preston Wang DO EXAMINATION: MR FOOT [...] in OV> 08/24/23 1136 DD/ 1125 TD/TT: Liner Replacer: CT abdomen pelvis wo con Reviewed date:10/04/2023 01:24:30 PM Interpretation:Abnormal Performing Lab: Notes/Report: [address] [address] [address] Scan Report Signed Patient: Xi Garrison MR#: [id number] [birth year] : 1945 Acct:[id number] Age/Sex: 78 / F ADM Date: 10/03/23 Loc: HO.ED Attending Dr: Ordering Physician: Tiffany Sanches CNP Date of Service: 10/03/23 Procedure(s): CT abdomen pelvis wo IV con Accession Number(s): [id number] cc: Tiffany Sanches CNP; Preston Wang DO [...] OV> 10/04/23 0144 DD/ 08 TD/TT: 10/03/232318 Liner Replacer: MEGHAN US renal BI Reviewed date:10/05/2023 12:44:32 PM Interpretation:Abnormal Performing Lab: Notes/Report: [address] [address] Ultrasound Report Signed Patient: Xi Garrison MR#: [id number] [birth year] : 1945 Acct:[id number] Age/Sex: 78 / F ADM Date: 10/04/23 Loc: .S3 350-[address]: Clint Webb MD Ordering Physician: Clint Webb MD Date of Service: 10/04/23 Procedure(s): US renal BI Accession Number(s): [id number] cc: Preston Wang DO; Clint Webb MD [...] 10/05/23 0540 DD/ 1540 TD/TT: 10/04/23 1555 Liner Replacer: EF REASON FOR REFERRAL Reason UTI Diagnosis [...] unspecified (N93.9) Active confirmed Abnormal uterine bleeding (981256724305 00) Problem Unspecified fracture of left toe(s), initial encounter for closed fracture (S92.912A) Active confirmed Closed fracture of phalanx of foot (01785311) Problem Essential hypertension (I10) Active confirmed 58810630 Problem Acquired hypothyroidism (E03.9) Active confirmed 100796201 Problem Morbid obesity due to excess calories (E66.01) Active confirmed 070227385 Problem Eczema, unspecified type (L30.9) Active confirmed 31930538 Problem Sciatica, right (M54.31) Active confirmed 78841712 Problem Chronic right-sided low back pain without sciatica (M54.5) Active confirmed 499774390 Problem Type 2 diabetes mellitus without complication, without long-term current use of insulin (E11.9) Active confirmed 800520504 Problem Sciatica of left side (M54.32) Active confirmed 52439094 Problem Severe single current episode of major depressive disorder, 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) Active confirmed 37807172 Problem Right-sided back pain, unspecified back location, unspecified chronicity (M54.9) Active confirmed 048752504 Problem 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) Active confirmed 534562032 Problem Pneumonia of both lungs due to infectious organism, unspecified part of lung (J18.9) Active confirmed 571672272 Problem Gastritis without bleeding, unspecified chronicity, unspecified gastritis type (K29.70) Active confirmed 1020936 Problem Diverticulitis (K57.92) Active confirmed 554915309 Problem Vaginal burning (N94.9) Active confirmed 828108514 Problem 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 9 Preston Wang DO, [address] [id number] 06/27/2023 Preston Wang Vaginal burning N94. 9 Preston Wang DO, [address] [id number] 07/05/2023 Preston Wang DO, [address] [id number] 07/12/2023 Preston Wang DO, [address] [id number] 07/19/2023 Preston Wang Staghorn calculus N2 0.0 and Vaginal burning N94.9 Preston Wang DO, [address] [id number] 07/20/2023 Preston Wang DO, [address] [id number] 07/25/2023 Preston Wang DO, [address] [id number] 08/15/2023 Preston Wang Toe osteomyelitis M8 6.9 Preston Wang DO, [address] [id number] 08/16/2023 Preston Wang Toe osteomyelitis M8 6.9 Preston Wang DO, [address] [id number] 08/22/2023 Preston Wang DO, [address] [id number] 08/24/2023 Preston Wang Toe osteomyelitis M8 6.9 Preston Wang DO, [address] [id number] 11/21/2023 Preston Wang Type 2 diabetes mellitus without complication, without long-term current use of insulin E11.9 Preston Wang DO, [address] [id number] 11/23/2023 Preston Wang Type 2 diabetes mellitus without complication, without long-term current use of insulin E11.9 Preston Wang DO, [address] [id number] 05/20/2023 Preston Bryanman Essential hypertensi on I10 ; Acquired hypothyroidism E03.9 ; Type 2 diabetes mellitus without complication, without long-term current use of insulin E11.9 ; Staghorn calculus N20.0 ; Vaginal burning N94.9 and Eczema, unspecified type L30.9 Preston aWng DO, [facility] [address] [place], [place] [id number] 07/22/2023 Preston Bryanman Preston Blankneship Felipe KMUAR, [address] [id number] 07/29/2023 Preston Wang Vaginal burning N94. 9 ; Staghorn calculus N20.0 ; Essential hypertension I10 ; Acquired hypothyroidism E03.9 and Type 2 diabetes mellitus without complication, without long-term current use of insulin E11.9 Preston Krzysztof Felipe KUMAR, [address] [id number] 11/11/2023 Preston Bryanman Diverticulitis K57.9 2 ; Essential hypertension I10 ; Acquired hypothyroidism E03.9 ; Staghorn calculus N20.0 and Type 2 diabetes mellitus without complication, without long-term current use of insulin E11.9 Preston Krzysztof Felipe KUMAR, [address] [id number] 12/16/2023 Preston Wang Diverticulitis K57.9 2 ; [...] Date MEDICARE [address] K[place]ACE WAGNER [phone] [id number] Xi Garrison Self - patient is the [...]
--- OUTSIDE RECORDS SUMMARY | 2024-02-20 07:12 | XMS_ITS | Clinical Summary ---
Author Organization Unknown Care Team Providers Care Unattended Ground Sensor Specialist Name Role Phone PITA , LIBERTAD Unavailable Unavailable ZEE RN, ABIEL Unavailable Unavailable ANABELLA RN, SHAYY Unavailable Unavailable Payers Payer Name Policy Type Policy Number Effective Date Expira tion Date MEDICARE - [place] - PD [id number] [facility] [id number] Problems Condition Name Condition Details Condition Category [...] ORAL HYPOGLYCEMIC DRUGS Active 02-07 00:00: 00 [facility] (CURRENT) USE OF OPIATE ANALGESIC Active 02-07 [...] 10 mg tablet 2023-02 00:00: 00 Yes [id number] 1 tablet DAILY 1 tablet DAILY (route: oral) Med Classific ation: Cardiovas cular Therapy Agents B-complex with vitamin C 400 mcg-500 mg tablet 2023-02 00:00: 00 Yes [id number] 1 tablet DAILY 1 tablet DAILY (route: oral) Med Classific ation: Electroly te Balance-N utritiona l Products clindamycin HCl 300 mg capsule 920 00:00: 00 11-10 23:59 :00 No [id number] 1 capsule EVERY 6 HOURS 1 capsule EVERY 6 HOURS (route: oral) Med Classific ation: Anti-Infe ctive Agents furosemide 40 mg tablet 2023-02 00:00: 00 Yes [id number] 1 tablet DAILY 1 tablet DAILY (route: oral) Med Classific ation: Cardiovas cular Therapy Agents levothyroxi ne 112 mcg tablet 2023-02 00:00: 00 Yes [id number] 1 tablet DAILY 1 tablet DAILY (route: oral) Med Classific ation: Endocrine metformin 500 mg tablet 2023-02 00:00: 00 Yes [id number] 1 tablet DAILY 1 tablet DAILY (route: oral) Med Classific ation: Endocrine Probiotic Acidophilus 250 million cell capsule 2023-02 00:00: 00 Yes [id number] 1 capsule DAILY 1 capsule DAILY (route: oral) Med Classific ation: Gastroint estinal Therapy Agents tramadol 50 mg tablet 2023-02 0 00:00: 00 Yes [id number] 1 tablet 3 TIMES DAILY 1 tablet 3 TIMES DAILY (route: oral) Med Classific ation: Analgesic , Anti-infl ammatory or Antipyret ic Vitamin D3 25 mcg (1,000 unit) capsule 2023-02 0 00:00: 00 Yes [id number] 2 capsule DAILY 2 capsule DAILY (route: [...] MAINTAIN SITUATIONAL AWARENESS AND WILL NOTIFY CLINICAL ICE CREAM FREEZER HELPER AND PHYSICIAN/PROVIDER WITH ANY CHANGE IN CONDITION. [code = SKILLED NURSE TO PERFORM ENVIRONMENTAL SAFETY RISK ASSESSMENT AND FALL RISK ASSESSMENT AND PROVIDE INSTRUCTION TO IMPLEMENT ENVIRONMENTAL SAFETY AND FALL PREVENTION STRATEGIES THROUGHOUT THE CERTIFICATION PERIOD. SKILLED NURSE WILL MAINTAIN SITUATIONAL AWARENESS AND WILL NOTIFY CLINICAL ICE CREAM FREEZER HELPER AND PHYSICIAN/PROVIDER WITH ANY CHANGE IN CONDITION.] [...] CARE WILL BE ESTABLISHED THAT MEETS PATIENT'S SENIOR CARE NEEDS AND INCLUDES PATIENT GOAL FOR HOME [...] End Date/Time Encounter Type Admission Type Attending [facility] Care Facility Care Department Encounter ID Discharge Date Discharge Status Discharge Condition Discharge Reason Percent Goals Met 2023-11-09 00:00:00 2024-03-07 00:00:00 Outpatient RECERTIFIC ATION SHAYY KYLE [facility] [id number] 57.58
[2024-02-20 07:14] LABS: INTERNATIONAL NORM RATIO 1.1 (0.9-1.1); Prothrombin Time 12.8 SEC (10.9-12.4)
--- NOTE | 2024-02-20 07:41 | MHC.SHP ---
Pre-Procedural Eval Section A - 24 Hr Update-Section A only Date of Service: 02/20/24 The patient is an INPATIENT: No Changes since office visit: Yes Patient answered all questions; No Cold of Flu in the past 2 weeks, No New Medical Problems and No Changes in Medication The patient has been examined within 24 hours of the surgical procedure. The History & Physical has been completed within 30 days and I have reviewed it.: Yes Section B - Complete if H&P > 30 days Chief Complaint: Closure of Colostomy Details of Present Illness: No changes reported by patient Relevant Family History (Specify if Yes): No Relevant Social History: None Present Medications: see Short Stay Collaborative assessment Medical History: Significant History History of Previous Operations: No relevant previous surgery Allergies: Allergies Allergy/AdvReac Type Severity Reaction Status Date / Time chlorpheniramine Allergy Severe HALLUCINATI Verified 02/20/24 07:10 [From TUSSIONEX] ONS ciprofloxacin [From CIPRO] Allergy Severe ANAPHYLAXIS Verified 02/20/24 07:10 escitalopram [ESCITALOPRAM] Allergy Severe DISSOCIATIVE Verified 02/20/24 07:10 REACTION fluoxetine [FLUOXETINE] Allergy Severe DISSOCIATIVE Verified 02/20/24 07:10 REACTION hydrocodone [From TUSSIONEX] Allergy Severe HALLUCINATI Verified 02/20/24 07:10 ONS ibuprofen [IBUPROFEN] Allergy Severe THROAT Verified 02/20/24 07:10 SWELLING Sulfa (Sulfonamide Allergy Severe DYSPNEA Verified 02/20/24 07:10 Antibiotics) [SULFA (SULFONAMIDE ANTIBIOTICS)] clarithromycin [From BIAXIN] Allergy Intermediate ABD.PAIN Verified 02/20/24 07:10 duloxetine [DULOXETINE] Allergy Intermediate FACIAL Verified 02/20/24 07:10 NUMBNESS erythromycin base Allergy Intermediate RASH Verified 02/20/24 07:10 [ERYTHROMYCIN BASE] Penicillins [PENICILLINS] Allergy Intermediate RASH Verified 02/20/24 07:10 tetracycline [TETRACYCLINE] Allergy Intermediate DIARRHEA Verified 02/20/24 07:10 codeine [CODEINE] Allergy Unknown TINNITIS Verified 02/20/24 07:10 guaifenesin Allergy Unknown Unknown Verified 02/20/24 07:10 levofloxacin [From Levaquin] Allergy Unknown Unknown Verified 02/20/24 07:10 pregabalin Allergy Unknown Unknown Verified 02/20/24 07:10 Review of Systems Sugical H&P ROS: Negative: Constitution, Cardiovascular, Respiratory, Neurological, Psychiatric, Hem-Onc, Allergic/Immunologic, Gastrointestinal, Genitourinary, Musculoskeletal, Integumentary, Endocrine and Eyes/Ears/Nose/Throat Exam Surgical H&P Exam: Normal: HEENT, Normal: Heart, Normal: Lungs, Normal: Extremities, Normal: Abdomen, Normal: Skin and Normal: Neurological Plan Diagnosis/Plan: Unchanged I have reviewed the history and physical and performed a pertinent physical examination on my patient. No changes have occurred unless specified. Time Spent With Patient Time: Total time managing care of this patient today ____ minutes.
--- NOTE | 2024-02-20 11:28 | P.OP_ITS ---
Operative Note Operative Note Date of Service: 02/20/24 Narrative: Preoperative diagnosis: Sigmoid stricture status post Vicki procedure Postoperative diagnosis: Same Procedure: Closure of colostomy Surgeon: Marino Jimenez MD Supervisor Pre Wave: Magalys Olsen PA-C, CLARE Vega Anesthesia: General endotracheal Indications for procedure: 78-year-old female patient with a prior history of obstruction due to sigmoid stricture status post sigmoid colectomy with end co lostomy (Vicki procedure) now returning for closure of colostomy. Operative findings: Dense adhesions and small fistula to small bowel requiring resection of small bowel. Specimen: Small bowel loop, colostomy, EEA donuts Estimated blood loss: 75 mL Complications: None Procedure details: Patient was brought to the OR and placed in a supine position. After administering general anesthesia a regional block was performed by anesthesia. Varela catheter was inserted. The patient's perineum was prepped with Betadine and abdomen prepped with ChloraPrep. Abdomen and perineum were draped in a sterile fashion. A surgical time-out was called the consent confirmed. Patient received preoperative antibiotics and Venodyne boots were in place. An elliptical incision was made around the colostomy in the left lower quadrant carried out through subcutaneous tissue. Dissection was continued along the colostomy wall down into the peritoneum. Dense adhesions were noted along the peritoneal surfaces. Once the colostomy was fully mobilized a pursestring clamp was applied to the bowel wall and a Rad needle Prolene suture used to create a pursestring. EEA sizers were then used to dilate the bowel. It was determined that a 28 EEA was needed. This was obtained and the anvil inserted into the descending colon and the pursestring tied off. A hand port was then inserted through the colostomy site. The abdomen was insufflated with CO2. Two additional 5 mm trocars were placed 1 in the right upper quadrant and a 2nd in the epigastrium. Patient was placed in a Trendelenburg position. Dense adhesions in the midline were then taken down. This was felt to be possibly caused by a fistula. The decision was made to convert to an open procedure due to the dense adhesions. 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 This was excised and a functional end-to-end anastomosis performed. The loop of bowel was divided using BALWINDER stapler 60 blue both proximally and distal to the fistula. The remaining mesentery was divided using LigaSure. An enterotomy was then created in both the proximal and distal loop at the anterior mesenteric border. A 3rd firing of the BALWINDER stapler was then performed to create a end-to-end anastomosis. The enterotomy was then closed using a TA 60 stapler. The crotch mesentery were reapproximated using interrupted 3-0 Surgilon sutures. Attention was then directed to the pelvis. Multiple dense adhesions involving small bowel were identified. There was a phlegmon involving the pelvis from the previous surgery. The multiple loops of small bowel were meticulously dissected from the pelvis and brought up into the right upper quadrant. A Bookwalter retractor was then placed in the bowel held in place using a malleable retractor. At this time a EEA Sizer was placed into the rectum and the rectum identified. The rectum was further mobilized using the LigaSure. The EEA device was then inserted into the anus and rectum and the spike brought up through the rowena portion of the bowel. This was then connected to the anvil of the descending colon. The stapler was then fired. The anastomosis was reinforced using interrupted Lembert 3-0 Surgilon sutures. The stapler was removed and 2 complete donuts were identified. Leak test was performed by instilling air into the rectum while saline filled the pelvis. No leak was identified. The abdomen was then thoroughly irrigated and suctioned dry. Wounds were checked for hemostasis at this time. Colostomy site was then closed using 0 Polysorb suture peritoneum and posterior sheath as well as the anterior rectus sheath. Dermis was then reapproximated using interrupted 3-0 Polysorb sutures. Skin was closed using skin rowena. The midline incision was then closed using a running 0 PDS looped suture. Subcutaneous tissue and dermis were reapproximated using interrupted 3-0 Polysorb sutures. Skin was closed in all incisions using skin rowena. Sterile dressings were then applied. The patient tolerated the procedure well. Sponge, instrument, and needle counts reported as correct. The patient was transferred to PACU in stable condition.
--- NOTE | 2024-02-20 11:53 | PM.OP ---
Brief Operative Note Date of Service: 02/20/24 <Saloni Chamorro - Last Filed: 02/20/24 12:05> Pre-op diagnosis: Diverticular stricture status post jacquie procedure <Saloni Chamorro - Last Filed: 02/20/24 12:05> Post-op diagnosis: same <Saloni Chamorro - Last Filed: 02/20/24 12:05> Procedure: Hand-assisted laparoscopic converted to Open colostomy closure <Saloni Chamorro - Last Filed: 02/20/24 12:05> Implants: None <Saloni Chamorro - Last Filed: 02/20/24 12:05> Surgeon: Marino Jimenez <Saloni Chamorro - Last Filed: 02/20/24 12:05> Anesthesia: GETA <Saloni Chamorro - Last Filed: 02/20/24 12:05> Was an Appraisal Coordinator used for this Procedure?: Yes <Saloni Chamorro - Last Filed: 02/20/24 12:05> No <Marino Jimenez MD - Last Filed: 02/20/24 13:48> Appraisal Coordinator: Magalys Olsen <Saloni Chamorro - Last Filed: 02/20/24 12:05> Estimated blood loss (mL): 150 (ml) <Saloni Chamorro - Last Filed: 02/20/24 12:05> 75 <Marino Jimenez MD - Last Filed: 02/20/24 13:48> Pathology: other (colostomy, small bowel resection) <Saloni Chamorro - Last Filed: 02/20/24 12:05> Condition: stable <Saloni Chamorro - Last Filed: 02/20/24 12:05> Disposition: PACU <Saloni Chamorro - Last Filed: 02/20/24 12:05>
[2024-02-20] MEDS: fentaNYL citrate/PF 100 MCG/2 ML VIAL 50 MCG IVPUSH (12:25)
[2024-02-20] MEDS: ondansetron HCL 4 MG/2 ML VIAL IVPUSH (12:25)
[2024-02-20 13:24] LABS: Glucose, Whole Blood 206 mg/dL (60-115)
[2024-02-20 13:51] LABS: Creatinine Clr Calc Pharmacy 37.4; Estimated Glomerular Filt Rate 36
--- NOTE | 2024-02-20 14:35 | PHA.MEDREC ---
Pharmacy Consult ? Medication Reconciliation Pharmacy has completed the medication reconciliation, spoke to patient's at bedside who had a written list of patient's medications. Atrovastatin was not on the home list but he confirmed the patient is taking that and said she was instructed not to take any of her medications today but took them yesterday.
[2024-02-20] MEDS: Acetaminophen 1,000 MG/100 ML PIGGYBACK 400 MG IV ×2 (14:57→22:02)
[2024-02-20] MEDS: Enoxaparin Sodium 40 MG/0.4 ML SYRINGE SUBCUT (14:58)
--- NOTE | 2024-02-20 15:42 | P.CONHOSP_ITS ---
History of Present Illness Data of Consult Service Date: 02/20/24 Primary Care Provider: Preston Wang DO HPI 78 year old women admitted by general surgery for colostomy reversal after jacquie procedure. Surgery was unremarkable. Patient is hemodynamically stable. No pain at this time. Resting in bed, family at bedside. Review of Systems 2 Review of Systems: Denies any recent fever chills or decrease in appetite respiratory denies any shortness of breath or cough cardiovascular denied chest pain gastrointestinal see HPI genitourinary denies any dysuria frequency or hematuria musculoskeletal denies any joint pain or swelling neuropsych denies any weakness or seizures all other systems reviewed are negative [facility] Medical History Hydroureteronephrosis Wound infection Open wound of back, complicated Cellulitis Frequency of urination Vaginal burning Vaginal itching PMB (postmenopausal bleeding) Cirrhosis of liver Does mobilize using walker PONV (postoperative nausea and vomiting) Left foot drop Fatty liver Fibromyalgia Neuropathy RBBB Cholelithiasis Staghorn calculus Renal calculus, bilateral Renal calyceal dilation determined by ultrasound UTI (urinary tract infection) Diabetes mellitus, type II Ganglion cyst Plantar fasciitis Anxiety OA (osteoarthritis) Obstructive airway disease Hypercholesterolemia Low back pain Sciatica Hypothyroidism HTN (hypertension) Primary osteoarthritis of right knee Retained ureteral stent Renal stones Staghorn calculus Perirectal abscess Family History Father Alcohol dependence Mother CHF (congestive heart failure) Cancer of breast Mother No problems noted. Other Alcoholic cirrhosis Substance use disorder Surgical History History of colectomy (~10/06/23) Status post cystoscopy with ureteral stent placement History of lumbar discectomy History of lumpectomy of both breasts History of cystoscopy History of lithotripsy Hx of colonoscopy History of surgery Social History Household Members: Significant Other Housing: House Are you a primary manager progressive care to a significant other at home: No Do you presently have visiting nurse or other home services: Yes ([facility]) Alcohol intake: never Comment: wheelchair for long distances Patient Tobacco Use Status: Former Tobacco user Tobacco use type: Cigarette Years Smoked: 27 Smoked in Last 30 Days: No e-Cigarette/Vaping Use: Never Used Second Hand Smoke Exposure: Yes Use of substances other than those prescribed or required for medical reasons: No Currently Displaying Signs/Symptoms of Drug Intoxication Withdrawal: No Have you been hit, kicked, punched, or otherwise hurt by someone within the past year? If so, by whom?: No Do you feel safe in your current relationship?: Yes Is there a partner from a previous relationship who is making you feel unsafe now?: No Are you made to feel afraid or neglected: No Are you DNR?: No Advance Directives: Yes Advance Directives Information Provided: No Advance Directives on File: Yes Advance Directives Date on File: 04/06/21 Do you have a plan to hurt others: No Plan Recently lost weight without trying: No Eating poorly because of decreased appetite: No Nutrition Risks: No Nutritional Risk Patient : No : No Poor oral hygiene: No service: No Current occupational status: disabled Cognitive needs: Yes (wheelchair) Hearing needs: No Vision needs: Yes (Glasses) Meds Allergies Allergy/AdvReac Type Severity Reaction Status Date / Time chlorpheniramine Allergy Severe HALLUCINATI Verified 02/20/24 07:10 [From TUSSIONEX] ONS ciprofloxacin [From CIPRO] Allergy Severe ANAPHYLAXIS Verified 02/20/24 07:10 escitalopram [ESCITALOPRAM] Allergy Severe DISSOCIATIVE Verified 02/20/24 07:10 REACTION fluoxetine [FLUOXETINE] Allergy Severe DISSOCIATIVE Verified 02/20/24 07:10 REACTION hydrocodone [From TUSSIONEX] Allergy Severe HALLUCINATI Verified 02/20/24 07:10 ONS ibuprofen [IBUPROFEN] Allergy Severe THROAT Verified 02/20/24 07:10 SWELLING Sulfa (Sulfonamide Allergy Severe DYSPNEA Verified 02/20/24 07:10 Antibiotics) [SULFA (SULFONAMIDE ANTIBIOTICS)] clarithromycin [From BIAXIN] Allergy Intermediate ABD.PAIN Verified 02/20/24 07:10 duloxetine [DULOXETINE] Allergy Intermediate FACIAL Verified 02/20/24 07:10 NUMBNESS erythromycin base Allergy Intermediate RASH Verified 02/20/24 07:10 [ERYTHROMYCIN BASE] Penicillins [PENICILLINS] Allergy Intermediate RASH Verified 02/20/24 07:10 tetracycline [TETRACYCLINE] Allergy Intermediate DIARRHEA Verified 02/20/24 07:10 codeine [CODEINE] Allergy Unknown TINNITIS Verified 02/20/24 07:10 guaifenesin Allergy Unknown Unknown Verified 02/20/24 07:10 levofloxacin [From Levaquin] Allergy Unknown Unknown Verified 02/20/24 07:10 pregabalin Allergy Unknown Unknown Verified 02/20/24 07:10 Active Medications: Current Medications Enoxaparin Sodium (Enoxaparin Sodium 40 Mg/0.4 Ml Syringe) 40 mg SUBCUT Q24H [facility] Last Admin: 02/20/24 14:58 Dose: 40 mg Furosemide (Furosemide 40 Mg Tablet) 40 mg PO DAILY [facility]; Protocol Glucose (Glucose Gel 15 Gm Gel..Gram.) 15 gm PO Q15M PRN; Protocol PRN Reason: per Hypoglycemia Standing Ord. Hydromorphone HCl (Hydromorphone Hcl 0.5 Mg/0.5 Ml Syringe) 0.5 mg IVPUSH Q3H PRN; Protocol PRN Reason: Pain, Severe (Pain Scale 7-10) Dextrose (D10) 250 mls @ 750 mls/hr IV Q15M PRN; Protocol PRN Reason: per Hypoglycemia Standing Ord. Acetaminophen (Ofirmev) 1,000 mg in 100 mls @ 400 mls/hr IV Q6H [facility] Last Infusion: 02/20/24 15:20 Dose: Infused Lactated Ringer's (Lr) 1,000 mls @ 100 mls/hr IVCONT .Q10H [facility] Last Admin: 02/20/24 12:57 Dose: 100 mls/hr Insulin Human Lispro (Insulin Lispro 100 Unit/Ml 3 Ml Vial) 0 unit SUBCUT Q6H [facility]; Protocol Stop: 02/21/24 11:27 Last Admin: 02/20/24 12:54 Dose: Not Given Ondansetron HCl (Ondansetron Hcl 4 Mg/2 Ml Vial) 4 mg IVPUSH QID PRN PRN Reason: Nausea Oxycodone HCl (Oxycodone Hcl Immed Release 5 Mg Tablet) 5 mg PO Q6H PRN PRN Reason: Pain, Moderate(Pain Scale 4-6) Sodium Chloride (0.9 % Sodium Chloride Flush 3 Ml Syringe) [facility] Zolpidem Tartrate (Zolpidem Tartrate 5 Mg Tablet) 5 mg PO BEDTIME PRN PRN Reason: Insomnia Home Medications ?Medication ?Instructions ?Recorded ?Confirmed ?Last Taken ?Type atorvastatin 10 mg tablet 1 tab PO DAILY 04/05/21 01/26/24 02/19/24 History metformin 500 mg tablet,extended 1 tab PO DAILY@1700 04/06/21 02/20/24 02/19/24 History release 24 hr cholecalciferol (vitamin D3) 50 50 mcg PO DAILY 07/19/22 01/26/24 02/19/24 History mcg (2,000 unit) tablet (Vitamin D3) acetaminophen 500 mg tablet 1,000 mg PO Q6H PRN Pain 10/04/23 02/20/24 Unknown History lisinopril 10 mg tablet 10 mg PO DAILY 02/15/24 02/20/24 02/19/24 History levothyroxine 112 mcg tablet 112 mcg PO MOTUTHFRSA@0600 02/20/24 02/20/24 02/18/24 History levothyroxine 112 mcg tablet 224 mcg PO SUWE@0600 02/20/24 02/20/24 02/19/24 History pyridoxine (vitamin B6) 50 mg 50 mg PO DAILY 02/20/24 02/20/24 02/19/24 History tablet Physical Exam 2 Vital Signs and Narrative: Vital Signs: Last Vital Signs Temp 96.9 F 02/20/24 15:26 Pulse 89 02/20/24 15:26 Resp 20 02/20/24 15:26 BP 121/60 02/20/24 15:26 Pulse Ox 98 02/20/24 15:26 O2 Del Method Nasal Cannula 02/20/24 15:26 O2 Flow Rate 1 02/20/24 15:26 BMI result Body Mass Index 35.5 Appearing in no acute distress head is normocephalic atraumatic eyes pupils are PERRLA sclera is anicteric mouth throat mucous membranes are intact and moist neck is supple no lymphadenopathy, no JVD noted lung sounds are clear to auscultation heart regular rate rhythm, clear S1, S2 positive bowel sounds, abdomen is soft, nontender neuro patient is alert x3, no focal deficits Results Labs 02/21/24 05:27 02/21/24 05:27 Labs: Laboratory Results - last 24 hr 02/20/24 02/20/24 02/20/24 07:00 12:59 13:20 PT 12.8 H INR 1.1 Estim Creat Clear Calc 37.4 Estimated GFR 36 POC Glucose 206 H Blood Type O Positive Antibody Screen NEGATIVE Assessment and Plan (1) Status post Jacquie procedure: Status: Acute Plan 78-year-old woman with a history of sigmoid stricture status post Jacquie procedure with closure of colostomy today. Colostomy closure Management as per surgical team Diabetes mellitus type 2 Sliding scale, diet as per surgical team Hold metformin while hospitalized Hypertension Stable blood pressure, may resume antihypertensive medications Hypothyroidism May continue levothyroxine Hyperlipidemia Resume statin on discharge DVT prophylaxis as per surgical team Full code Medical consultation complete. Will sign off
[2024-02-20 16:21] LABS: Glucose, Whole Blood 189 mg/dL (60-115)
[2024-02-20] MEDS: Insulin Lispro 100 UNIT/ML 3 ML VIAL SUBCUT ×2 (17:04→23:31)
[2024-02-20] MEDS: oxyCODONE HCl Immed Release 5 MG TABLET PO (18:20)
[2024-02-20 23:30] LABS: Glucose, Whole Blood 191 mg/dL (60-115)
[2024-02-21] MEDS: Acetaminophen 1,000 MG/100 ML PIGGYBACK 400 MG IV ×4 (03:41→21:34)
[2024-02-21 03:46] VITALS: BP 178/69; PULSE 86; RESP 16; TEMP 36.1; O2SAT 99
[2024-02-21] MEDS: oxyCODONE HCl Immed Release 5 MG TABLET PO ×3 (05:12→16:13)
[2024-02-21] MEDS: Levothyroxine Sodium 112 MCG TABLET PO (05:22)
[2024-02-21] MEDS: Insulin Lispro 100 UNIT/ML 3 ML VIAL SUBCUT ×2 (05:22→08:17)
[2024-02-21 05:23] LABS: Glucose, Whole Blood 152 mg/dL (60-115)
[2024-02-21 06:18] LABS: MANUAL DIFF FLAG NO
[2024-02-21 06:23] LABS: Basophils Percent Auto 0.1 % (0-2); Hematocrit 32.1 % (37.0-47.0); Hemoglobin 10.2 g/dl (12.0-16.0); Imm Gran Abs Auto 0.12 X10*3/uL (0.00-0.03); Imm Gran Pct Auto 0.7 % (0.0-0.4); Lymphocytes Absolute Auto 1.5 X10*3/uL (1.2-4.9); Lymphocytes Percent Auto 9.4 % (20-40); Mean Corpuscular HGB Conc 31.8 g/dl (31.0-35.0); Mean Corpuscular Hemoglobin 26.4 pg (27.0-33.0); Mean Corpuscular Volume 83.2 fL (80.0-98.0); Mean Platelet Volume 9.4 fL (9.4-12.3); Monocytes Absolute Auto 1.2 X10*3/uL (0.1-1.2); Monocytes Percent Auto 7.5 % (2-11); Neutrophils Absolute Auto 13.3 x10*3/uL (2.0-8.3); Neutrophils Percent Auto 82.3 % (45-73); Platelet Count 242 X10*3/uL (160-400); Red Blood Count 3.86 X10*6/uL (4.20-5.50); Red Cell Distribution Width 17.7 % (11.0-16.0); White Blood Count 16.2 X10*3/uL (4.8-10.8)
[2024-02-21 06:37] LABS: Alanine Aminotransferase 25 U/L (0-31); Albumin Level 3.1 g/dL (3.5-5.0); Alkaline Phosphatase 46 U/L (39-117); Anion Gap 11 (12-20); Bilirubin Total 0.5 mg/dL (0.0-1.0); Blood Urea Nitrogen 19 mg/dL (9-16); Calcium 8.7 mg/dL (8.4-10.2); Carbon Dioxide 22 mmol/L (22-29); Chloride 106 mmol/L (96-108); Estimated Glomerular Filt Rate 42; Glucose Random 148 mg/dL (60-115); Potassium 4.8 mmol/L (3.3-5.1); Sodium 134 mmol/L (135-145); Total Protein 6.7 g/dL (6.5-8.0)
--- NOTE | 2024-02-21 06:51 | P.PNGS_ITS ---
Subjective Subjective Date of Service: 02/21/24 <Saloni Chamorro - Last Filed: 02/21/24 07:14> 02/21/24 <Magalys Olsen PA-C - Last Filed: 02/21/24 07:46> 02/21/24 <Marino Jimenez MD - Last Filed: 02/21/24 08:09> Interval history: Pt is POD #1 from an open colostomy reversal s/p Vicki procedure. Pt is well-appearing and in no acute distress. Pt notes pain at the incision sites which increased pain at the old colostomy incision site. Pt denies any flatus. Pt notes she feel bloated. Pt notes she had one bowel movement last night that was just blood. She felt as though she needed to have a bowel movement but then the toilet only had blood in it. Pt notes pain while defecating. She ambulated to the bathroom x1 and noted increased pain upon standing. She has been tolerating liquids, no nausea or vomiting. <Saloni Chamorro - Last Filed: 02/21/24 07:14> Physical Exam 2 Vital Signs: Vital Signs: Last Vital Signs Temp 96.9 F 02/21/24 03:46 Pulse 86 02/21/24 03:46 Resp 16 02/21/24 03:46 BP 178/69 H 02/21/24 03:46 Pulse Ox 99 02/21/24 03:46 O2 Del Method Nasal Cannula 02/21/24 03:46 O2 Flow Rate 1 02/21/24 03:46 BMI result Body Mass Index 36.9 <Saloni Chamorro - Last Filed: 02/21/24 07:14> Const: General: no acute distress and alert <Saloni Chamorro - Last Filed: 02/21/24 07:14> Orientation/consciousness: patient oriented x3 <Saloni Chamorro - Last Filed: 02/21/24 07:14> Resp: Effort & Inspection: normal respiratory effort <Saloni Chamorro - Last Filed: 02/21/24 07:14> Auscultation: clear to auscultation bilaterally <Saloni Chamorro - Last Filed: 02/21/24 07:14> Cardio: Rate: regular rate <Saloni Chamorro - Last Filed: 02/21/24 07:14> Rhythm: regular rhythm <Saloni Chamorro - Last Filed: 02/21/24 07:14> Heart sounds: S1 normal heart sound present and S2 normal heart sound present <Salonimarcia Chamorro - Last Filed: 02/21/24 07:14> GI: Inspection: Yes distended and Yes scar <Saloni Chamorro - Last Filed: 02/21/24 07:14> Palpation (GI): Soft to palpation, Tenderness to palpation present (GI) in the LLQ and Other GI palpation findings present (Bandages in place but no surrounding erythema or visible discharge.) <Saloni Chamorro - Last Filed: 02/21/24 07:14> Auscultation: normal bowel sounds <Saloni Chamorro - Last Filed: 02/21/24 07:14> Skin: General skin exam: no rashes or lesions noted <Magalys Olsen PA-C - Last Filed: 02/21/24 07:46> Neuro: General: patient oriented x3 <Saloni Chamorro - Last Filed: 02/21/24 07:14> Extrem: Other: Pt notes tenderness around her right medial malleolus. No erythema, edema, or ecchymosis noted. <Saloni Chamorro - Last Filed: 02/21/24 07:14> Right lower extremity: normal to inspection <Saloni Chamorro - Last Filed: 02/21/24 07:14> Left lower extremity: normal to inspection <Saloni Chamorro - Last Filed: 02/21/24 07:14> Objective Data Active Medications Enoxaparin Sodium (Enoxaparin Sodium 40 Mg/0.4 Ml Syringe) 40 mg SUBCUT Q24H [facility] Last Admin: 02/20/24 14:58 Dose: 40 mg Documented By: NEW Furosemide (Furosemide 40 Mg Tablet) 40 mg PO DAILY [facility]; Protocol Glucose (Glucose Gel 15 Gm Gel..Gram.) 15 gm PO Q15M PRN; Protocol PRN Reason: per Hypoglycemia Standing Ord. Hydromorphone HCl (Hydromorphone Hcl 0.5 Mg/0.5 Ml Syringe) 0.5 mg IVPUSH Q3H PRN; Protocol PRN Reason: Pain, Severe (Pain Scale 7-10) Dextrose (D10) 250 mls @ 750 mls/hr IV Q15M PRN; Protocol PRN Reason: per Hypoglycemia Standing Ord. Acetaminophen (Ofirmev) 1,000 mg in 100 mls @ 400 mls/hr IV Q6H [facility] Last Infusion: 02/21/24 03:58 Dose: Infused Documented By: ALLA Lactated Ringer's (Lr) 1,000 mls @ 100 mls/hr IVCONT .Q10H [facility] Last Admin: 02/20/24 22:50 Dose: 100 mls/hr Documented By: ALLA Insulin Human Lispro (Insulin Lispro 100 Unit/Ml 3 Ml Vial) 0 unit SUBCUT Q6H [facility]; Protocol Stop: 02/21/24 11:27 Last Admin: 02/21/24 05:22 Dose: 2 unit Documented By: ALLA Levothyroxine Sodium (Levothyroxine Sodium 112 Mcg Tablet) 112 mcg PO MOTUTHFRSA@0600 [facility] Last Admin: 02/21/24 05:22 Dose: 112 mcg Documented By: ALLA Levothyroxine Sodium (Levothyroxine Sodium 112 Mcg Tablet) 224 mcg PO SUWE@0600 [facility] Lisinopril (Lisinopril 10 Mg Tablet) 10 mg PO DAILY [facility]; Protocol Ondansetron HCl (Ondansetron Hcl 4 Mg/2 Ml Vial) 4 mg IVPUSH QID PRN PRN Reason: Nausea Oxycodone HCl (Oxycodone Hcl Immed Release 5 Mg Tablet) 5 mg PO Q6H PRN PRN Reason: Pain, Moderate(Pain Scale 4-6) Last Admin: 02/21/24 05:12 Dose: 5 mg Documented By: ALLA Pyridoxine HCl (Pyridoxine Hcl (Vitamin B6) 50 Mg Tablet) 50 mg PO DAILY [facility] Sodium Chloride (0.9 % Sodium Chloride Flush 3 Ml Syringe) 3 ml IVFLUSH QSHIFT [facility] Last Admin: 02/21/24 00:11 Dose: Not Given Documented By: ALLA Non-Admin Reason: IV Running Vitamin D (Cholecalciferol (Vitamin D3) 25 Mcg Tablet) 50 mcg PO DAILY [facility] Zolpidem Tartrate (Zolpidem Tartrate 5 Mg Tablet) 5 mg PO BEDTIME PRN PRN Reason: Insomnia <Saloni Avnash - Last Filed: 02/21/24 07:14> Labs CBC & Chem 7: 02/21/24 05:27 02/21/24 05:27 <Saloni Chamorro - Last Filed: 02/21/24 07:14> Labs: Laboratory Results - last 24 hr 02/20/24 02/20/24 02/20/24 07:00 12:59 13:20 MCV MCH MCHC RDW Plt Count MPV Immature Gran % (Auto) Neut % (Auto) Lymph % (Auto) Stokes % (Auto) Eos % (Auto) Baso % (Auto) Lymph # (Auto) Stokes # (Auto) Eos # (Auto) Baso # (Auto) Abs Immat Gran (auto) Absolute Neuts (auto) Absolute Nucleated RBC Nucleated RBC % (auto) PT 12.8 H INR 1.1 Anion Gap Estim Creat Clear Calc 37.4 Estimated GFR 36 POC Glucose 206 H Random Glucose Calcium Total Bilirubin ALT Alkaline Phosphatase Total Protein Albumin Blood Type O Positive Antibody Screen NEGATIVE 02/20/24 02/20/24 02/21/24 16:16 23:25 05:18 MCV MCH MCHC RDW Plt Count MPV Immature Gran % (Auto) Neut % (Auto) Lymph % (Auto) Stokes % (Auto) Eos % (Auto) Baso % (Auto) Lymph # (Auto) Stokes # (Auto) Eos # (Auto) Baso # (Auto) Abs Immat Gran (auto) Absolute Neuts (auto) Absolute Nucleated RBC Nucleated RBC % (auto) PT INR Anion Gap Estim Creat Clear Calc Estimated GFR POC Glucose 189 H 191 H 152 H Random Glucose Calcium Total Bilirubin ALT Alkaline Phosphatase Total Protein Albumin Blood Type Antibody Screen 02/21/24 05:27 MCV 83.2 MCH 26.4 L MCHC 31.8 RDW 17.7 H Plt Count 242 MPV 9.4 Immature Gran % (Auto) 0.7 H Neut % (Auto) 82.3 H Lymph % (Auto) 9.4 L Stokes % (Auto) 7.5 Eos % (Auto) 0.0 Baso % (Auto) 0.1 Lymph # (Auto) 1.5 Stokes # (Auto) 1.2 Eos # (Auto) 0.0 Baso # (Auto) 0.0 Abs Immat Gran (auto) 0.12 H Absolute Neuts (auto) 13.3 H Absolute Nucleated RBC 0.000 Nucleated RBC % (auto) 0.0 PT INR Anion Gap 11 L Estim Creat Clear Calc 44.0 Estimated GFR 42 POC Glucose Random Glucose 148 H Calcium 8.7 D Total Bilirubin 0.5 ALT 25 Alkaline Phosphatase 46 Total Protein 6.7 Albumin 3.1 L Blood Type Antibody Screen <Saloni Chamorro - Last Filed: 02/21/24 07:14> Procedures Date of Service Date of Service: 02/21/24 <Salonimarcia Chamorro - Last Filed: 02/21/24 07:14> 02/21/24 <Magalys Olsen PA-C - Last Filed: 02/21/24 07:46> 02/21/24 <Marino Jimenez MD - Last Filed: 02/21/24 08:09> Progress Note: A&P Assessment and plan (1) Status post Vicki procedure: Status: Acute <Saloni Fairchildnash - Last Filed: 02/21/24 07:14> (2) S/P colostomy takedown: Status: Acute <Saloni Fairchildnash - Last Filed: 02/21/24 07:14> Assessment and Plan: Pt notes she has been using her incentive spirometry x5-10/hr. Will continue. Pt is encouraged to ambulate as tolerated. Pain is controlled with oxycodone, dilaudid, and tylenol. Continue current medication regimen. D/c catheter at this time. Pt will continue liquid diet until normal bowel movement is noted. Will continue to monitor hemoglobin and hemotocrit. <Saloni Fairchildnash - Last Filed: 02/21/24 07:14> Pt notes she has been using her incentive spirometry x5-10/hr. Will continue. Pt is encouraged to ambulate as tolerated. Pain is controlled with oxycodone, dilaudid, and tylenol. Continue current medication regimen. D/c catheter at this time. Pt will continue liquid diet until normal bowel movement is noted. Will continue to monitor hemoglobin and hemotocrit. Seen independently and agree with above assessment and plan. Patient is POD #1 s/p colostomy closure. Doing fairly well post op, pain controlled with analgesics. VSS- hypertensive. Abd exam benign with appropriate post op tenderness, dressings c/d/i. Good UOP. Dc michael gordon IVF. Cont clear liquids for now until evidence of GI function. Did have BRBPR which is expected, continue to monitor. PT consult, increase activity. Incentive spirometer use encouraged. AM labs reviewed, leukocytosis likely reactive. <Magalys Olsen PA-C - Last Filed: 02/21/24 07:46> Time Spent With Patient Time: Total time managing care of this patient today ____ minutes. <Saloni Chamorro - Last Filed: 02/21/24 07:14> Quality Stroke Does the patient have a stroke diagnosis?: No <Magalys Olsen PA-C - Last Filed: 02/21/24 07:46> VTE Prior VTE?: No <Magalys Olsen PA-C - Last Filed: 02/21/24 07:46> VTE Risk Level:: Surgical - moderate <Saloni Chamorro - Last Filed: 02/21/24 07:14> VTE Device Contraindication: N/A - Device Ordered <Saloni Chamorro - Last Filed: 02/21/24 07:14> VTE Drug Contraindication: N/A - Med Ordered <Saloni Chamorro - Last Filed: 02/21/24 07:14>
[2024-02-21 07:01] LABS: Aspartate Amino Transferase 32 U/L (5-31)
[2024-02-21 07:47] VITALS: BP 110/56; PULSE 84; RESP 18; TEMP 36.5; O2SAT 96
[2024-02-21 08:06] LABS: Glucose, Whole Blood 243 mg/dL (60-115)
[2024-02-21] MEDS: Pyridoxine HCl (Vitamin B6) 50 MG TABLET PO (08:16)
[2024-02-21] MEDS: lisinopriL 10 MG TABLET PO (08:16)
[2024-02-21] MEDS: Furosemide 40 MG TABLET PO (08:16)
[2024-02-21] MEDS: Cholecalciferol (Vitamin D3) 25 MCG TABLET 50 MCG PO (08:17)
--- NOTE | 2024-02-21 08:17 | HO.POSTANES ---
Post Anesthesia Evaluation Post Anesthesia Evaluation Date of Service: 02/21/24 Vital Signs: Vital Signs Temp Pulse Resp BP Pulse Ox O2 Del Method O2 Flow Rate 02/21/24 07:47 97.7 F 84 18 110/56 L 96 Room Air 02/21/24 03:46 96.9 F 86 16 178/69 H 99 Nasal Cannula 1 Anesthesia: General Endotracheal-GETA Mental Status: Awake Pain Control: Satisfactory (with meds) Nausea/Vomiting: None Hydration: Adequate Anesthesia-Related Issues: No Anes. Related Issues
[2024-02-21] MEDS: 0.9 % Sodium Chloride Flush 3 ML SYRINGE IVFLUSH ×2 (08:20→21:36)
[2024-02-21] MEDS: Lactated Ringers 1,000 ML 100 ML IVCONT (09:43)
[2024-02-21 10:58] LABS: Glucose, Whole Blood 145 mg/dL (60-115)
[2024-02-21 11:52] LABS: Glucose, Whole Blood 112 mg/dL (60-115)
[2024-02-21] MEDS: Enoxaparin Sodium 40 MG/0.4 ML SYRINGE SUBCUT (14:16)
[2024-02-21 15:40] VITALS: BP 118/56; PULSE 95; RESP 20; TEMP 36.5; O2SAT 99
--- NOTE | 2024-02-21 16:21 | MHC.CM.PN ---
IMM DELIVERED. PATIENT LIVES IN A HOME W/ S.O/HCP ALEXEY. S.O ASSISTS W/ ADLS. AMBULATES W/ ROLLATOR. USES W/C FOR LONG DISTANCES. ALSO HAS CANE, GRAB BARS IN BATHROOM AND SHOWER CHAIR. ACTIVE W/ [facility] FOR SN. PCP BEAR CHU MD HCP ON FILE AND VERIFIED. DP: HOME W/ FAMILY SUPPORT. RESUME [facility], ADD PHYSICAL THERAPY. S.O. TO TRANSPORT. CM WILL CONTINUE TO FOLLOW.
[2024-02-21 16:26] LABS: Glucose, Whole Blood 95 mg/dL (60-115)
[2024-02-21 19:44] VITALS: BP 133/63; PULSE 107; RESP 2; TEMP 36.3; O2SAT 94
[2024-02-21 19:59] LABS: Glucose, Whole Blood 120 mg/dL (60-115)
[2024-02-22 03:05] VITALS: BP 119/58; PULSE 97; RESP 20; TEMP 36.4; O2SAT 98
[2024-02-22] MEDS: Acetaminophen 1,000 MG/100 ML PIGGYBACK 400 MG IV ×4 (03:26→22:11)
[2024-02-22] MEDS: Levothyroxine Sodium 112 MCG TABLET 224 MCG PO (05:43)
--- NOTE | 2024-02-22 06:43 | P.PNGS_ITS ---
Subjective Subjective Date of Service: 02/22/24 <Saloni Chamorro - Last Filed: 02/22/24 07:08> 02/22/24 <Magalys Olsen PA-C - Last Filed: 02/22/24 07:58> Interval history: Pt is POD #2 from an open colostomy s/p Vicki procedure. She is well appearing and in no acute distress. Similar to yesterday, pt notes pain at her incision sites with increased pain at the old colostomy site. Pt still denies any flatus and states she still feels bloated. Pt notes 3-4 bowel movements yesterday of diarrhea with BRBPR noted each time. Pt also reports feeling as though she needs to defecate and just mucus coming out. Pt states she now has an appetite. Pt denies any vomiting but occasional nausea. Pt was able to sleep more last night. <Saloni Chamorro - Last Filed: 02/22/24 07:08> She is well appearing and in no acute distress. Similar to yesterday, pt notes pain at her incision sites with increased pain at the old colostomy site. Pt still denies any flatus and states she still feels bloated. Pt notes 3-4 bowel movements yesterday of diarrhea with BRBPR noted each time. Pt also reports feeling as though she needs to defecate and just mucus coming out. Pt states she now has an appetite. Pt denies any vomiting but occasional nausea. Pt was able to sleep more last night. <Magalys Olsen PA-C - Last Filed: 02/22/24 07:58> Physical Exam 2 Vital Signs: Vital Signs: Last Vital Signs Temp 97.5 F 02/22/24 03:05 Pulse 97 02/22/24 03:05 Resp 20 02/22/24 03:05 BP 119/58 L 02/22/24 03:05 Pulse Ox 98 02/22/24 03:05 O2 Del Method Room Air 02/22/24 03:05 O2 Flow Rate 1 02/21/24 03:46 BMI result Body Mass Index 36.9 <Saloni Chamorro - Last Filed: 02/22/24 07:08> Const: General: no acute distress and alert <Saloni Chamorro - Last Filed: 02/22/24 07:08> Orientation/consciousness: patient oriented x3 <Saloni Chamorro Last Filed: 02/22/24 07:08> Resp: Effort & Inspection: normal respiratory effort <Saloni Chamorro Last Filed: 02/22/24 07:08> Auscultation: clear to auscultation bilaterally <Saloni Chamorro Last Filed: 02/22/24 07:08> Cardio: Rate: regular rate <Saloni Chamorro Last Filed: 02/22/24 07:08> Rhythm: regular rhythm <Saloni Chamorro - Last Filed: 02/22/24 07:08> Heart sounds: S1 normal heart sound present and S2 normal heart sound present <Saloni Chamorro Last Filed: 02/22/24 07:08> GI: Other: Bandages in place, but no redness or discharge noted around her incision sites. <Saloni Chamorro Last Filed: 02/22/24 07:08> Inspection: Yes distended and Yes incision <Saloni Chamorro Last Filed: 02/22/24 07:08> Palpation (GI): Soft to palpation and Tenderness to palpation present (GI) in the LLQ <Saloni Chamorro Last Filed: 02/22/24 07:08> Auscultation: normal bowel sounds <Saloni Chamorro Last Filed: 02/22/24 07:08> Neuro: General: patient oriented x3 <Saloni Chamorro Last Filed: 02/22/24 07:08> Extrem: Other: Increased pain and decreased range of motion in L ankle. No erythema. Slight edema around the talus. No pitting. Pt denies any injuries. States ROM was decreased prior to surgery but is more decreased now. No redness or erythema in L or R calves. <Saloni Chamorro - Last Filed: 02/22/24 07:08> Right lower extremity: normal to inspection <Saloni Chamorro Last Filed: 02/22/24 07:08> Objective Data Active Medications Enoxaparin Sodium (Enoxaparin Sodium 40 Mg/0.4 Ml Syringe) 40 mg SUBCUT Q24H [facility] Last Admin: 02/21/24 14:16 Dose: 40 mg Documented By: NEW Furosemide (Furosemide 40 Mg Tablet) 40 mg PO DAILY [facility]; Protocol Last Admin: 02/21/24 08:16 Dose: 40 mg Documented By: NEW Glucose (Glucose Gel 15 Gm Gel..Gram.) 15 gm PO Q15M PRN; Protocol PRN Reason: per Hypoglycemia Standing Ord. Hydromorphone HCl (Hydromorphone Hcl 0.5 Mg/0.5 Ml Syringe) 0.5 mg IVPUSH Q3H PRN; Protocol PRN Reason: Pain, Severe (Pain Scale 7-10) Dextrose (D10) 250 mls @ 750 mls/hr IV Q15M PRN; Protocol PRN Reason: per Hypoglycemia Standing Ord. Acetaminophen (Ofirmev) 1,000 mg in 100 mls @ 400 mls/hr IV Q6H [facility] Last Infusion: 02/22/24 03:41 Dose: Infused Documented By: ANTONIO Insulin Human Lispro (Insulin Lispro 100 Unit/Ml 3 Ml Vial) 0 unit SUBCUT QIDACHS [facility]; Protocol Last Admin: 02/21/24 21:30 Dose: Not Given Documented By: ANTONIO Non-Admin Reason: No Insulin Coverage Levothyroxine Sodium (Levothyroxine Sodium 112 Mcg Tablet) 112 mcg PO MOTUTHFRSA@0600 [facility] Last Admin: 02/21/24 05:22 Dose: 112 mcg Documented By: ALLA Levothyroxine Sodium (Levothyroxine Sodium 112 Mcg Tablet) 224 mcg PO SUWE@0600 [facility] Last Admin: 02/22/24 05:43 Dose: 224 mcg Documented By: ANTONIO Lisinopril (Lisinopril 10 Mg Tablet) 10 mg PO DAILY [facility]; Protocol Last Admin: 02/21/24 08:16 Dose: 10 mg Documented By: NEW Ondansetron HCl (Ondansetron Hcl 4 Mg/2 Ml Vial) 4 mg IVPUSH QID PRN PRN Reason: Nausea Oxycodone HCl (Oxycodone Hcl Immed Release 5 Mg Tablet) 5 mg PO Q6H PRN PRN Reason: Pain, Moderate(Pain Scale 4-6) Last Admin: 02/21/24 16:13 Dose: 5 mg Documented By: NEW Pyridoxine HCl (Pyridoxine Hcl (Vitamin B6) 50 Mg Tablet) 50 mg PO DAILY [facility] Last Admin: 02/21/24 08:16 Dose: 50 mg Documented By: NEW Sodium Chloride (0.9 % Sodium Chloride Flush 3 Ml Syringe) 3 ml IVFLUSH QSHIFT [facility] Last Admin: 02/21/24 21:36 Dose: 3 ml Documented By: ANTONIO Vitamin D (Cholecalciferol (Vitamin D3) 25 Mcg Tablet) 50 mcg PO DAILY [facility] Last Admin: 02/21/24 08:17 Dose: 50 mcg Documented By: NEW Zolpidem Tartrate (Zolpidem Tartrate 5 Mg Tablet) 5 mg PO BEDTIME PRN PRN Reason: Insomnia <Saloni Chamorro - Last Filed: 02/22/24 07:08> Labs CBC & Chem 7: 02/21/24 05:27 02/21/24 05:27 <Saloni Chamorro - Last Filed: 02/22/24 07:08> Labs: Laboratory Results - last 24 hr 02/20/24 02/21/24 02/21/24 06:45 05:27 07:45 POC Glucose 145 H 243 H AST 32 H 02/21/24 02/21/24 02/21/24 11:48 16:22 19:55 POC Glucose 112 95 120 H AST <Saloni Chamorro - Last Filed: 02/22/24 07:08> Procedures Date of Service Date of Service: 02/22/24 <Saloni Chamorro - Last Filed: 02/22/24 07:08> 02/22/24 <Magalys Olsen PA-C - Last Filed: 02/22/24 07:58> Progress Note: A&P Assessment and plan (1) S/P colostomy takedown: Status: Acute <Saloni Chamorro - Last Filed: 02/22/24 07:08> Assessment and Plan: Pt is POD #2 s/p open colostomy closure. Pt is doing fairly well. Pain fairly well controlled with analgesics. Since pt does have BRBPR and hemoglobin was 10.2 yesterday, repeat CBC. Pt encouraged to use incentive spirometry x10/hr. Pt encouraged to get out of bed and ambulate as tolerated. PT consult to increase activity. For now, continue clear liquid diet. Will discuss with MD around advancing diet. <Saloni Chamorro - Last Filed: 02/22/24 07:08> Pt is POD #2 s/p open colostomy closure. Pt is doing fairly well. Pain fairly well controlled with analgesics. Since pt does have BRBPR and hemoglobin was 10.2 yesterday, repeat CBC. Pt encouraged to use incentive spirometry x10/hr. Pt encouraged to get out of bed and ambulate as tolerated. PT consult to increase activity. For now, continue clear liquid diet. Will discuss with MD around advancing diet. Seen independenty and agree with Ashtyn SPARKS. Patient POD #2 s/p closure of colostomy. Overall doing well post op, passing flatus and some very small liquid stools. Blood in BMs is decreasing. VSS. Abd exam benign with clean incisions, soft, appropriate post op tenderness, very mildly distended. Will advance to full liquids for now. Cont to increase activity, IS use. Repeat labs in AM. < Magalys Olsen PA-C - Last Filed: 02/22/24 07:58> Time Spent With Patient Time: Total time managing care of this patient today ____ minutes. <Saloni Chamorro - Last Filed: 02/22/24 07:08> Quality Stroke Does the patient have a stroke diagnosis?: No <Saloni Chamorro - Last Filed: 02/22/24 07:08> VTE Prior VTE?: No <Saloni Chamorro - Last Filed: 02/22/24 07:08> VTE Risk Level:: Surgical - moderate <Saloni Chamorro - Last Filed: 02/22/24 07:08> VTE Device Contraindication: N/A - Device Ordered <Saloni Chamorro - Last Filed: 02/22/24 07:08> VTE Drug Contraindication: N/A - Med Ordered <Saloni Chamorro - Last Filed: 02/22/24 07:08>
[2024-02-22] MEDS: Furosemide 40 MG TABLET PO (07:51)
[2024-02-22] MEDS: 0.9 % Sodium Chloride Flush 3 ML SYRINGE IVFLUSH ×2 (07:52→15:38)
[2024-02-22] MEDS: Cholecalciferol (Vitamin D3) 25 MCG TABLET 50 MCG PO (07:52)
[2024-02-22] MEDS: Pyridoxine HCl (Vitamin B6) 50 MG TABLET PO (07:52)
[2024-02-22] MEDS: lisinopriL 10 MG TABLET PO (07:52)
[2024-02-22] MEDS: oxyCODONE HCl Immed Release 5 MG TABLET PO ×2 (07:52→14:03)
[2024-02-22 07:58] VITALS: BP 114/56; PULSE 197; RESP 16; TEMP 36.3; O2SAT 96
[2024-02-22 08:03] LABS: Glucose, Whole Blood 103 mg/dL (60-115)
--- NOTE | 2024-02-22 11:07 | MHC.CM.PN ---
Per EMR, patient not medically cleared for dc. DCP: home w/ services and S.O. CM will continue to follow.
[2024-02-22 12:08] LABS: Glucose, Whole Blood 125 mg/dL (60-115)
[2024-02-22] MEDS: Enoxaparin Sodium 40 MG/0.4 ML SYRINGE SUBCUT (14:04)
[2024-02-22 15:34] VITALS: BP 118/72; PULSE 104; RESP 20; TEMP 36.2; O2SAT 92
[2024-02-22 16:39] LABS: Glucose, Whole Blood 117 mg/dL (60-115)
[2024-02-22 19:39] VITALS: BP 131/60; PULSE 104; RESP 20; TEMP 37.2; O2SAT 95
[2024-02-22 20:41] LABS: Glucose, Whole Blood 158 mg/dL (60-115)
[2024-02-22] MEDS: Insulin Lispro 100 UNIT/ML 3 ML VIAL SUBCUT (22:18)
[2024-02-23] MEDS: 0.9 % Sodium Chloride Flush 3 ML SYRINGE IVFLUSH ×4 (00:22→20:53)
[2024-02-23] MEDS: oxyCODONE HCl Immed Release 5 MG TABLET PO (02:55)
[2024-02-23] MEDS: Acetaminophen 1,000 MG/100 ML PIGGYBACK 400 MG IV ×2 (02:56→08:56)
[2024-02-23 03:05] VITALS: BP 99/51; PULSE 93; RESP 18; TEMP 37.1; O2SAT 95
[2024-02-23] MEDS: Levothyroxine Sodium 112 MCG TABLET PO (05:58)
[2024-02-23 06:40] LABS: MANUAL DIFF FLAG NO
[2024-02-23 07:03] LABS: Basophils Percent Auto 0.2 % (0-2); Eosinophils Absolute Auto 0.1 X10*3/uL (0.0-0.4); Eosinophils Percent Auto 1.1 % (0-4); Hematocrit 25.7 % (37.0-47.0); Hemoglobin 7.9 g/dl (12.0-16.0); Imm Gran Abs Auto 0.17 X10*3/uL (0.00-0.03); Imm Gran Pct Auto 1.6 % (0.0-0.4); Lymphocytes Absolute Auto 1.6 X10*3/uL (1.2-4.9); Lymphocytes Percent Auto 15.4 % (20-40); Mean Corpuscular HGB Conc 30.7 g/dl (31.0-35.0); Mean Corpuscular Hemoglobin 26.2 pg (27.0-33.0); Mean Corpuscular Volume 85.1 fL (80.0-98.0); Mean Platelet Volume 9.7 fL (9.4-12.3); Monocytes Percent Auto 9.1 % (2-11); Neutrophils Absolute Auto 7.6 x10*3/uL (2.0-8.3); Neutrophils Percent Auto 72.6 % (45-73); Platelet Count 187 X10*3/uL (160-400); Red Blood Count 3.02 X10*6/uL (4.20-5.50); White Blood Count 10.5 X10*3/uL (4.8-10.8)
[2024-02-23 07:39] VITALS: BP 107/50; PULSE 93; RESP 16; TEMP 36.7; O2SAT 95
[2024-02-23 07:45] LABS: Glucose, Whole Blood 85 mg/dL (60-115)
--- NOTE | 2024-02-23 07:46 | P.PNGS_ITS ---
Subjective Subjective Date of Service: 02/23/24 <Magalys Olsen PA-C - Last Filed: 02/23/24 07:50> 02/23/24 <Marino Jimenez MD - Last Filed: 02/23/24 09:17> Interval history: Continues to c/o difficulty with incisional pain. Reports liquid BMs, less bloody. Tolerating full liquids and feels hungry. Denies CP, dizziness, lightheadedness, palpitations. <Magalys Olsen PA-C - Last Filed: 02/23/24 07:50> Physical Exam 2 Vital Signs: Vital Signs: Last Vital Signs Temp 98.0 F 02/23/24 07:39 Pulse 93 02/23/24 07:39 Resp 16 02/23/24 07:39 BP 107/50 L 02/23/24 07:39 Pulse Ox 95 02/23/24 07:39 O2 Del Method Room Air 02/23/24 07:39 O2 Flow Rate 1 02/21/24 03:46 BMI result Body Mass Index 36.9 <Magalys Olsen PA-C - Last Filed: 02/23/24 07:50> Const: General: comfortable, no acute distress and alert <KIKA Mari Last Filed: 02/23/24 07:50> Orientation/consciousness: patient oriented x3 <KIKA Mari Last Filed: 02/23/24 07:50> Resp: Effort & Inspection: normal respiratory effort <Magalys Olsen PA-C - Last Filed: 02/23/24 07:50> GI: Inspection: Yes distended (mild) and Yes incision (clean, rowena intact ) <Magalys Olsen PA-C - Last Filed: 02/23/24 07:50> Palpation (GI): Soft to palpation, Tenderness to palpation present (GI) (mild incisional) and no guarding <KIKA Mari Last Filed: 02/23/24 07:50> Skin: General skin exam: no rashes or lesions noted <KIKA Mari Last Filed: 02/23/24 07:50> Neuro: General: patient oriented x3 and moves all extremities <Magalys Olsen PA-C - Last Filed: 02/23/24 07:50> Objective Data Active Medications Enoxaparin Sodium (Enoxaparin Sodium 40 Mg/0.4 Ml Syringe) 40 mg SUBCUT Q24H [facility] Last Admin: 02/22/24 14:04 Dose: 40 mg Documented By: JORGE A Furosemide (Furosemide 40 Mg Tablet) 40 mg PO DAILY [facility]; Protocol Last Admin: 02/22/24 07:51 Dose: 40 mg Documented By: JORGE A Glucose (Glucose Gel 15 Gm Gel..Gram.) 15 gm PO Q15M PRN; Protocol PRN Reason: per Hypoglycemia Standing Ord. Hydromorphone HCl (Hydromorphone Hcl 0.5 Mg/0.5 Ml Syringe) 0.5 mg IVPUSH Q3H PRN; Protocol PRN Reason: Pain, Severe (Pain Scale 7-10) Dextrose (D10) 250 mls @ 750 mls/hr IV Q15M PRN; Protocol PRN Reason: per Hypoglycemia Standing Ord. Acetaminophen (Ofirmev) 1,000 mg in 100 mls @ 400 mls/hr IV Q6H [facility] Last Infusion: 02/23/24 03:50 Dose: Infused Documented By: BENNY Insulin Human Lispro (Insulin Lispro 100 Unit/Ml 3 Ml Vial) 0 unit SUBCUT QIDACHS [facility]; Protocol Last Admin: 02/22/24 22:18 Dose: 2 unit Documented By: BENNY Levothyroxine Sodium (Levothyroxine Sodium 112 Mcg Tablet) 112 mcg PO MOTUTHFRSA@0600 [facility] Last Admin: 02/23/24 05:58 Dose: 112 mcg Documented By: BENNY Levothyroxine Sodium (Levothyroxine Sodium 112 Mcg Tablet) 224 mcg PO SUWE@0600 [facility] Last Admin: 02/22/24 05:43 Dose: 224 mcg Documented By: ANTONIO Lisinopril (Lisinopril 10 Mg Tablet) 10 mg PO DAILY [facility]; Protocol Last Admin: 02/22/24 07:52 Dose: 10 mg Documented By: JORGE A Ondansetron HCl (Ondansetron Hcl 4 Mg/2 Ml Vial) 4 mg IVPUSH QID PRN PRN Reason: Nausea Oxycodone HCl (Oxycodone Hcl Immed Release 5 Mg Tablet) 5 mg PO Q6H PRN PRN Reason: Pain, Moderate(Pain Scale 4-6) Last Admin: 02/23/24 02:55 Dose: 5 mg Documented By: BENNY Pyridoxine HCl (Pyridoxine Hcl (Vitamin B6) 50 Mg Tablet) 50 mg PO DAILY [facility] Last Admin: 02/22/24 07:52 Dose: 50 mg Documented By: JORGE A Sodium Chloride (0.9 % Sodium Chloride Flush 3 Ml Syringe) 3 ml IVFLUSH QSHIFT [facility] Last Admin: 02/23/24 00:22 Dose: 3 ml Documented By: BENNY Vitamin D (Cholecalciferol (Vitamin D3) 25 Mcg Tablet) 50 mcg PO DAILY [facility] Last Admin: 02/22/24 07:52 Dose: 50 mcg Documented By: JORGE A Zolpidem Tartrate (Zolpidem Tartrate 5 Mg Tablet) 5 mg PO BEDTIME PRN PRN Reason: Insomnia <Magalys Olsen PA-C - Last Filed: 02/23/24 07:50> Labs CBC & Chem 7: 02/23/24 05:37 02/21/24 05:27 <Magalys Olsen PA-C - Last Filed: 02/23/24 07:50> Labs: Laboratory Results - last 24 hr 02/22/24 02/22/24 02/22/24 07:57 11:59 16:21 MCV MCH MCHC RDW Plt Count MPV Immature Gran % (Auto) Neut % (Auto) Lymph % (Auto) Alexander % (Auto) Eos % (Auto) Baso % (Auto) Lymph # (Auto) Alexander # (Auto) Eos # (Auto) Baso # (Auto) Abs Immat Gran (auto) Absolute Neuts (auto) Absolute Nucleated RBC Nucleated RBC % (auto) POC Glucose 103 125 H 117 H 02/22/24 02/23/24 02/23/24 20:37 05:37 07:38 MCV 85.1 MCH 26.2 L MCHC 30.7 L RDW 18.0 H Plt Count 187 MPV 9.7 Immature Gran % (Auto) 1.6 H Neut % (Auto) 72.6 Lymph % (Auto) 15.4 L Alexander % (Auto) 9.1 Eos % (Auto) 1.1 Baso % (Auto) 0.2 Lymph # (Auto) 1.6 Alexander # (Auto) 1.0 Eos # (Auto) 0.1 Baso # (Auto) 0.0 Abs Immat Gran (auto) 0.17 H Absolute Neuts (auto) 7.6 Absolute Nucleated RBC 0.000 Nucleated RBC % (auto) 0.0 POC Glucose 158 H 85 <Magalys Olsen PA-C - Last Filed: 02/23/24 07:50> Procedures Date of Service Date of Service: 02/23/24 <Magalys Olsen PA-C - Last Filed: 02/23/24 07:50> 02/23/24 <Marino Jimenez MD - Last Filed: 02/23/24 09:17> Progress Note: A&P Assessment and plan (1) S/P colostomy takedown: Status: Acute <Magalys Olsen PA-C - Last Filed: 02/23/24 07:50> Assessment and Plan: POD #3 s/p closure of colostomy. H/H drifted down, blood in BMs decreasing. VSS and she is asymptomatic. Will cont to monitor for now, repeat CBC in am. Abd exam overall benign, soft with clean incisions. Will advance to regular diet. Cont to increase activity, IS use. <Magalys Olsen PA-C - Last Filed: 02/23/24 07:50> Time Spent With Patient Time: Total time managing care of this patient today ____ minutes. <Magalys Olsen PA-C - Last Filed: 02/23/24 07:50> Quality Stroke Does the patient have a stroke diagnosis?: No <Magalys Olsen PA-C - Last Filed: 02/23/24 07:50> VTE Prior VTE?: No <KIKA Mari Last Filed: 02/23/24 07:50> VTE Risk Level:: Surgical - moderate <KIKA Mari Last Filed: 02/23/24 07:50> VTE Device Contraindication: N/A - Device Ordered <Magalys Olsen PA-C - Last Filed: 02/23/24 07:50> VTE Drug Contraindication: N/A - Med Ordered <Magalys Olsen PA-C - Last Filed: 02/23/24 07:50>
[2024-02-23] MEDS: Pyridoxine HCl (Vitamin B6) 50 MG TABLET PO (08:54)
[2024-02-23] MEDS: lisinopriL 10 MG TABLET PO (08:54)
[2024-02-23] MEDS: Furosemide 40 MG TABLET PO (08:54)
[2024-02-23] MEDS: Cholecalciferol (Vitamin D3) 25 MCG TABLET 50 MCG PO (08:55)
[2024-02-23 11:28] LABS: Glucose, Whole Blood 122 mg/dL (60-115)
[2024-02-23] MEDS: Ferrous Sulfate 324 MG TABLET.DR PO ×2 (12:42→16:52)
[2024-02-23 15:31] VITALS: BP 127/56; PULSE 112; RESP 20; TEMP 37.2; O2SAT 95
[2024-02-23 16:26] LABS: Glucose, Whole Blood 142 mg/dL (60-115)
[2024-02-23] MEDS: Enoxaparin Sodium 40 MG/0.4 ML SYRINGE SUBCUT (16:52)
[2024-02-23 19:25] VITALS: BP 113/54; PULSE 105; RESP 20; TEMP 37.2; O2SAT 94
[2024-02-23 20:31] LABS: Glucose, Whole Blood 134 mg/dL (60-115)
[2024-02-23] MEDS: HYDROmorphone HCl 0.5 MG/0.5 ML SYRINGE IVPUSH (20:57)
[2024-02-24] VITALS (7 sets, daily range): BP systolic 82–104; BP diastolic 45–56; PULSE 83–95; RESP 16–18; TEMP 36.1–37.1; O2SAT 93–96
[2024-02-24 06:15] LABS: MANUAL DIFF FLAG NO
[2024-02-24 06:18] LABS: Basophils Percent Auto 0.3 % (0-2); Eosinophils Absolute Auto 0.1 X10*3/uL (0.0-0.4); Eosinophils Percent Auto 0.9 % (0-4); Hematocrit 25.7 % (37.0-47.0); Hemoglobin 8.1 g/dl (12.0-16.0); Imm Gran Abs Auto 0.22 X10*3/uL (0.00-0.03); Imm Gran Pct Auto 1.9 % (0.0-0.4); Lymphocytes Absolute Auto 1.6 X10*3/uL (1.2-4.9); Lymphocytes Percent Auto 13.8 % (20-40); Mean Corpuscular HGB Conc 31.5 g/dl (31.0-35.0); Mean Corpuscular Hemoglobin 26.4 pg (27.0-33.0); Mean Corpuscular Volume 83.7 fL (80.0-98.0); Mean Platelet Volume 9.9 fL (9.4-12.3); Neutrophils Absolute Auto 8.6 x10*3/uL (2.0-8.3); Neutrophils Percent Auto 74.1 % (45-73); Platelet Count 191 X10*3/uL (160-400); Red Blood Count 3.07 X10*6/uL (4.20-5.50); Red Cell Distribution Width 17.8 % (11.0-16.0); White Blood Count 11.5 X10*3/uL (4.8-10.8)
[2024-02-24 07:27] LABS: Glucose, Whole Blood 98 mg/dL (60-115)
[2024-02-24] MEDS: Levothyroxine Sodium 112 MCG TABLET PO (07:28)
--- NOTE | 2024-02-24 07:52 | P.PNGS_ITS ---
Subjective Subjective Date of Service: 02/24/24 <Saloni Chamorro - Last Filed: 02/24/24 08:50> 02/24/24 <Magalys Olsen PA-C - Last Filed: 02/24/24 10:13> Interval history: Pt is POD#4 from open colostomy closure s/p Vicki procedure. Pt continues to complain of incisional pain. Most pain noted at the old colostomy site incision. Pt denies any nausea or vomiting. Advanced to a full diet yesterday and pt is tolerating solids well. Pt notes an increase in her appetite. Pt reports liquid bowel movements with minimal to no blood present. Pt reports flatus. She has been walking around as tolerated. <Saloni Chamorro - Last Filed: 02/24/24 08:50> Physical Exam 2 Vital Signs: Vital Signs: Last Vital Signs Temp 98.7 F 02/24/24 07:16 Pulse 85 02/24/24 07:16 Resp 18 02/24/24 07:16 BP 92/50 L 02/24/24 07:16 Pulse Ox 93 02/24/24 07:16 O2 Del Method Room Air 02/24/24 07:16 O2 Flow Rate 1 02/21/24 03:46 BMI result Body Mass Index 36.9 <Saloni Chamorro - Last Filed: 02/24/24 08:50> Const: General: no acute distress and alert <Saloni Chamorro - Last Filed: 02/24/24 08:50> Orientation/consciousness: patient oriented x3 <Saloni Chamorro - Last Filed: 02/24/24 08:50> Resp: Effort & Inspection: normal respiratory effort <Saloni Chamorro - Last Filed: 02/24/24 08:50> Auscultation: clear to auscultation bilaterally <Saloni Chamorro - Last Filed: 02/24/24 08:50> Cardio: Rate: regular rate <Saloni Chamorro - Last Filed: 02/24/24 08:50> Rhythm: regular rhythm <Saloni Chamorro - Last Filed: 02/24/24 08:50> Heart sounds: S1 normal heart sound present and S2 normal heart sound present <Saloni Chamorro - Last Filed: 02/24/24 08:50> GI: Inspection: Yes distended (mild) and Yes incision (incisions clean and dry) <Saloni Chamorro - Last Filed: 02/24/24 08:50> Palpation (GI): Soft to palpation and Tenderness to palpation present (GI) in the LLQ <Saloni Chamorro - Last Filed: 02/24/24 08:50> Auscultation: normal bowel sounds <Saloni Chamorro - Last Filed: 02/24/24 08:50> Neuro: General: patient oriented x3 <Saloni Chamorro - Last Filed: 02/24/24 08:50> Extrem: Right lower extremity: normal to inspection <Saloni Chamorro - Last Filed: 02/24/24 08:50> Left lower extremity: normal to inspection and edema (mild ankle edema, non- pitting) <Saloni Chamorro - Last Filed: 02/24/24 08:50> Objective Data Active Medications Enoxaparin Sodium (Enoxaparin Sodium 40 Mg/0.4 Ml Syringe) 40 mg SUBCUT Q24H [facility] Last Admin: 02/23/24 16:52 Dose: 40 mg Documented By: DAVE Ferrous Sulfate (Ferrous Sulfate 324 Mg Tablet.) 324 mg PO BIDWM [facility] Last Admin: 02/23/24 16:52 Dose: 324 mg Documented By: DAVE Furosemide (Furosemide 40 Mg Tablet) 40 mg PO DAILY [facility]; Protocol Last Admin: 02/23/24 08:54 Dose: 40 mg Documented By: DAVE Glucose (Glucose Gel 15 Gm Gel..Gram.) 15 gm PO Q15M PRN; Protocol PRN Reason: per Hypoglycemia Standing Ord. Hydromorphone HCl (Hydromorphone Hcl 0.5 Mg/0.5 Ml Syringe) 0.5 mg IVPUSH Q3H PRN; Protocol PRN Reason: Pain, Severe (Pain Scale 7-10) Last Admin: 02/23/24 20:57 Dose: 0.5 mg Documented By: RICHIE Dextrose (D10) 250 mls @ 750 mls/hr IV Q15M PRN; Protocol PRN Reason: per Hypoglycemia Standing Ord. Insulin Human Lispro (Insulin Lispro 100 Unit/Ml 3 Ml Vial) 0 unit SUBCUT QIDACHS [facility]; Protocol Last Admin: 02/23/24 20:54 Dose: Not Given Documented By: RICHIE Non-Admin Reason: No Insulin Coverage Levothyroxine Sodium (Levothyroxine Sodium 112 Mcg Tablet) 112 mcg PO MOTUTHFRSA@0600 [facility] Last Admin: 02/24/24 07:28 Dose: 112 mcg Documented By: DAVE Levothyroxine Sodium (Levothyroxine Sodium 112 Mcg Tablet) 224 mcg PO SUWE@0600 [facility] Last Admin: 02/22/24 05:43 Dose: 224 mcg Documented By: ANTONIO Lisinopril (Lisinopril 10 Mg Tablet) 10 mg PO DAILY [facility]; Protocol Last Admin: 02/23/24 08:54 Dose: 10 mg Documented By: DAVE Ondansetron HCl (Ondansetron Hcl 4 Mg/2 Ml Vial) 4 mg IVPUSH QID PRN PRN Reason: Nausea Oxycodone HCl (Oxycodone Hcl Immed Release 5 Mg Tablet) 5 mg PO Q6H PRN PRN Reason: Pain, Moderate(Pain Scale 4-6) Last Admin: 02/23/24 02:55 Dose: 5 mg Documented By: BENNY Pyridoxine HCl (Pyridoxine Hcl (Vitamin B6) 50 Mg Tablet) 50 mg PO DAILY [facility] Last Admin: 02/23/24 08:54 Dose: 50 mg Documented By: DAVE Sodium Chloride (0.9 % Sodium Chloride Flush 3 Ml Syringe) [facility] Last Admin: 02/23/24 20:53 Dose: 3 ml Documented By: RICHIE Vitamin D (Cholecalciferol (Vitamin D3) 25 Mcg Tablet) 50 mcg PO DAILY [facility] Last Admin: 02/23/24 08:55 Dose: 50 mcg Documented By: DAVE Zolpidem Tartrate (Zolpidem Tartrate 5 Mg Tablet) 5 mg PO BEDTIME PRN PRN Reason: Insomnia <Saloni Avakian - Last Filed: 02/24/24 08:50> Labs CBC & Chem 7: 02/24/24 05:35 02/21/24 05:27 <Saloni Avakian - Last Filed: 02/24/24 08:50> Labs: Laboratory Results - last 24 hr 02/23/24 02/23/2402/22/25 11:11 16:23 20:12 MCV MCH MCHC RDW Plt Count MPV Immature Gran % (Auto) Neut % (Auto) Lymph % (Auto) Kern % (Auto) Eos % (Auto) Baso % (Auto) Lymph # (Auto) [place]ern # (Auto) Eos # (Auto) Baso # (Auto) Abs Immat Gran (auto) Absolute Neuts (auto) Absolute Nucleated RBC Nucleated RBC % (auto) POC Glucose 122 H 142 H 134 H 02/24/24 02/24/24 05:35 07:22 MCV 83.7 MCH 26.4 L MCHC 31.5 RDW 17.8 H Plt Count 191 MPV 9.9 Immature Gran % (Auto) 1.9 H Neut % (Auto) 74.1 H Lymph % (Auto) 13.8 L [place]ern % (Auto) 9.0 Eos % (Auto) 0.9 Baso % (Auto) 0.3 Lymph # (Auto) 1.6 Kern # (Auto) 1.0 Eos # (Auto) 0.1 Baso # (Auto) 0.0 Abs Immat Gran (auto) 0.22 H Absolute Neuts (auto) 8.6 H Absolute Nucleated RBC 0.000 Nucleated RBC % (auto) 0.0 POC Glucose 98 <Saloni Chamorro - Last Filed: 02/24/24 08:50> Procedures Date of Service Date of Service: 02/24/24 <Saloni Chamorro - Last Filed: 02/24/24 08:50> 02/24/24 <Magalys Olsen PA-C - Last Filed: 02/24/24 10:13> Progress Note: A&P Assessment and plan (1) S/P colostomy takedown: Status: Acute <Saloni Chamorro - Last Filed: 02/24/24 08:50> Assessment and Plan: Pt is POD #4 from open colostomy closure. Pt is doing fairly well overall. Continue current pain regimen. Continue full diet. Encourage incentive spirometry x10/hr. Encourage ambulation as tolerated. Will continue to monitor H+H, but pt denies any lightheadness upon standing and blood in BM is decreasing. <Saloni Chamorro - Last Filed: 02/24/24 08:50> Pt is POD #4 from open colostomy closure. Pt is doing fairly well overall. Continue current pain regimen. Continue full diet. Encourage incentive spirometry x10/hr. Encourage ambulation as tolerated. Will continue to monitor H+H, but pt denies any lightheadness upon standing and blood in BM is decreasing. Agree with above assessment in plan. Patient tolerated solid diet with good GI function- now with solid nonbloody BMs. H/H stable. Exam remains unchanged with appropriate post op tenderness, incisions clean. BP on softer side this morning. Hold antihypertensives. Repeat CBC, BMP in am. If she remains stable and comfortable on PO analgesics, stable for dc over the weekend. Patient comfortable with plan. <Magalys Olsen PA-C - Last Filed: 02/24/24 10:13> Time Spent With Patient Time: Total time managing care of this patient today ____ minutes. <Saloni Chamorro - Last Filed: 02/24/24 08:50> Quality Stroke Does the patient have a stroke diagnosis?: No <Saloni Chamorro - Last Filed: 02/24/24 08:50> VTE Prior VTE?: No <Saloni Chamorro - Last Filed: 02/24/24 08:50> VTE Risk Level:: Surgical - moderate <Saloni Chamorro - Last Filed: 02/24/24 08:50> VTE Device Contraindication: N/A - Device Ordered <Saloni Chamorro - Last Filed: 02/24/24 08:50> VTE Drug Contraindication: N/A - Med Ordered <Saloni Chamorro - Last Filed: 02/24/24 08:50>
[2024-02-24] MEDS: oxyCODONE HCl Immed Release 5 MG TABLET PO ×3 (07:58→22:20)
[2024-02-24] MEDS: Ferrous Sulfate 324 MG TABLET.DR PO ×2 (07:58→16:09)
[2024-02-24] MEDS: Cholecalciferol (Vitamin D3) 25 MCG TABLET 50 MCG PO (07:58)
[2024-02-24] MEDS: Pyridoxine HCl (Vitamin B6) 50 MG TABLET PO (07:58)
[2024-02-24] MEDS: 0.9 % Sodium Chloride Flush 3 ML SYRINGE IVFLUSH ×3 (07:59→22:20)
[2024-02-24 11:33] LABS: Glucose, Whole Blood 115 mg/dL (60-115)
--- NOTE | 2024-02-24 15:20 | MHC.CM.PN ---
Patient not medically cleared for dc. [facility] updated. CM will continue to follow.
[2024-02-24] MEDS: Enoxaparin Sodium 40 MG/0.4 ML SYRINGE SUBCUT (16:10)
[2024-02-24 16:31] LABS: Glucose, Whole Blood 114 mg/dL (60-115)
[2024-02-24 20:41] LABS: Glucose, Whole Blood 123 mg/dL (60-115)
[2024-02-25] MEDS: oxyCODONE HCl Immed Release 5 MG TABLET PO (04:42)
[2024-02-25] MEDS: Levothyroxine Sodium 112 MCG TABLET PO (05:34)
[2024-02-25 06:06] LABS: MANUAL DIFF FLAG NO
[2024-02-25 06:22] LABS: Basophils Percent Auto 0.2 % (0-2); Eosinophils Absolute Auto 0.1 X10*3/uL (0.0-0.4); Eosinophils Percent Auto 1.4 % (0-4); Hemoglobin 7.7 g/dl (12.0-16.0); Imm Gran Abs Auto 0.45 X10*3/uL (0.00-0.03); Imm Gran Pct Auto 4.9 % (0.0-0.4); Lymphocytes Absolute Auto 1.4 X10*3/uL (1.2-4.9); Lymphocytes Percent Auto 15.6 % (20-40); Mean Corpuscular HGB Conc 30.8 g/dl (31.0-35.0); Mean Corpuscular Hemoglobin 26.3 pg (27.0-33.0); Mean Corpuscular Volume 85.3 fL (80.0-98.0); Mean Platelet Volume 9.9 fL (9.4-12.3); Monocytes Absolute Auto 0.9 X10*3/uL (0.1-1.2); Monocytes Percent Auto 10.1 % (2-11); NRBC Pct Auto 0.3 /100WBC (0.0-0.2); Neutrophils Absolute Auto 6.2 x10*3/uL (2.0-8.3); Neutrophils Percent Auto 67.8 % (45-73); Platelet Count 228 X10*3/uL (160-400); Red Blood Count 2.93 X10*6/uL (4.20-5.50); Red Cell Distribution Width 17.7 % (11.0-16.0); White Blood Count 9.1 X10*3/uL (4.8-10.8)
[2024-02-25 06:26] LABS: Anion Gap 14 (12-20); Blood Urea Nitrogen 35 mg/dL (9-16); Calcium 8.6 mg/dL (8.4-10.2); Carbon Dioxide 20 mmol/L (22-29); Chloride 105 mmol/L (96-108); Creatinine Clr Calc Pharmacy 38.7; Estimated Glomerular Filt Rate 37; Glucose Fasting 114 mg/dL (60-99); Potassium 3.7 mmol/L (3.3-5.1); Sodium 135 mmol/L (135-145)
[2024-02-25 07:26] VITALS: BP 106/50; PULSE 93; RESP 18; TEMP 36.7; O2SAT 97
[2024-02-25 07:52] LABS: Glucose, Whole Blood 116 mg/dL (60-115)
[2024-02-25] MEDS: Cholecalciferol (Vitamin D3) 25 MCG TABLET 50 MCG PO (08:37)
[2024-02-25] MEDS: Pyridoxine HCl (Vitamin B6) 50 MG TABLET PO (08:37)
[2024-02-25] MEDS: Ferrous Sulfate 324 MG TABLET.DR PO (08:37)
[2024-02-25 12:05] LABS: Glucose, Whole Blood 150 mg/dL (60-115)
--- NOTE | 2024-02-25 13:57 | P.PNGS_ITS ---
Subjective Subjective Date of Service: 02/25/24 Interval history: Patient uneventful evening. P.o. intake okay. She says she has been up out of bed ambulating around in the room. Passing some flatus. Physical Exam 2 Vital Signs: Vital Signs: Last Vital Signs Temp 98.1 F 02/25/24 07:26 Pulse 93 02/25/24 07:26 Resp 18 02/25/24 07:26 BP 106/50 L 02/25/24 07:26 Pulse Ox 97 02/25/24 07:26 O2 Del Method Room Air 02/25/24 07:26 O2 Flow Rate 1 02/21/24 03:46 BMI result Body Mass Index 36.9 GI: Other: Abdomen is very corpulent. All incisions clean dry and intact healing uneventfully. Otherwise benign exam. Objective Data Active Medications Enoxaparin Sodium (Enoxaparin Sodium 40 Mg/0.4 Ml Syringe) 40 mg SUBCUT Q24H [facility] Last Admin: 02/24/24 16:10 Dose: 40 mg Documented By: DAVE Ferrous Sulfate (Ferrous Sulfate 324 Mg Tablet.Dr) 324 mg PO BIDWM [facility] Last Admin: 02/25/24 08:37 Dose: 324 mg Documented By: SID Furosemide (Furosemide 40 Mg Tablet) 40 mg PO DAILY [facility]; Protocol Last Admin: 02/25/24 09:37 Dose: Not Given Documented By: SID Non-Admin Reason: Physician Held Med Glucose (Glucose Gel 15 Gm Gel..Gram.) 15 gm PO Q15M PRN; Protocol PRN Reason: per Hypoglycemia Standing Ord. Hydromorphone HCl (Hydromorphone Hcl 0.5 Mg/0.5 Ml Syringe) 0.5 mg IVPUSH Q3H PRN; Protocol PRN Reason: Pain, Severe (Pain Scale 7-10) Last Admin: 02/23/24 20:57 Dose: 0.5 mg Documented By: RICHIE Dextrose (D10) 250 mls @ 750 mls/hr IV Q15M PRN; Protocol PRN Reason: per Hypoglycemia Standing Ord. Insulin Human Lispro (Insulin Lispro 100 Unit/Ml 3 Ml Vial) 0 unit SUBCUT QIDACHS [facility]; Protocol Last Admin: 02/25/24 12:07 Dose: Not Given Documented By: SID Non-Admin Reason: No Insulin Coverage Levothyroxine Sodium (Levothyroxine Sodium 112 Mcg Tablet) 112 mcg PO MOTUTHFRSA@0600 [facility] Last Admin: 02/25/24 05:34 Dose: 112 mcg Documented By: ALLA Levothyroxine Sodium (Levothyroxine Sodium 112 Mcg Tablet) 224 mcg PO SUWE@0600 [facility] Last Admin: 02/22/24 05:43 Dose: 224 mcg Documented By: ANTONIO Lisinopril (Lisinopril 10 Mg Tablet) 10 mg PO DAILY [facility]; Protocol Last Admin: 02/25/24 09:37 Dose: Not Given Documented By: SID Non-Admin Reason: Physician Held Med Ondansetron HCl (Ondansetron Hcl 4 Mg/2 Ml Vial) 4 mg IVPUSH QID PRN PRN Reason: Nausea Oxycodone HCl (Oxycodone Hcl Immed Release 5 Mg Tablet) 5 mg PO Q6H PRN PRN Reason: Pain, Moderate(Pain Scale 4-6) Last Admin: 02/25/24 04:42 Dose: 5 mg Documented By: ALLA Pyridoxine HCl (Pyridoxine Hcl (Vitamin B6) 50 Mg Tablet) 50 mg PO DAILY [facility] Last Admin: 02/25/24 08:37 Dose: 50 mg Documented By: SID Sodium Chloride (0.9 % Sodium Chloride Flush 3 Ml Syringe) 3 ml IVFLUSH QSHIFT [facility] Last Admin: 02/25/24 08:37 Dose: Not Given Documented By: SID Non-Admin Reason: Previously Administered Vitamin D (Cholecalciferol (Vitamin D3) 25 Mcg Tablet) 50 mcg PO DAILY [facility] Last Admin: 02/25/24 08:37 Dose: 50 mcg Documented By: SID Zolpidem Tartrate (Zolpidem Tartrate 5 Mg Tablet) 5 mg PO BEDTIME PRN PRN Reason: Insomnia Labs 02/25/24 05:09 02/25/24 05:09 Labs: Laboratory Results - last 24 hr 02/24/24 02/24/24 02/25/24 16:26 20:38 05:09 MCV 85.3 MCH 26.3 L MCHC 30.8 L RDW 17.7 H Plt Count 228 MPV 9.9 Immature Gran % (Auto) 4.9 H Neut % (Auto) 67.8 Lymph % (Auto) 15.6 L Pine % (Auto) 10.1 Eos % (Auto) 1.4 Baso % (Auto) 0.2 Lymph # (Auto) 1.4 Pine # (Auto) 0.9 Eos # (Auto) 0.1 Baso # (Auto) 0.0 Abs Immat Gran (auto) 0.45 H Absolute Neuts (auto) 6.2 Absolute Nucleated RBC 0.030 H Nucleated RBC % (auto) 0.3 H Anion Gap 14 Estim Creat Clear Calc 38.7 Estimated GFR 37 POC Glucose 114 123 H Fasting Glucose 114 H Calcium 8.6 02/25/24 02/25/24 07:32 12:00 MCV MCH MCHC RDW Plt Count MPV Immature Gran % (Auto) Neut % (Auto) Lymph % (Auto) Pine % (Auto) Eos % (Auto) Baso % (Auto) Lymph # (Auto) Pine # (Auto) Eos # (Auto) Baso # (Auto) Abs Immat Gran (auto) Absolute Neuts (auto) Absolute Nucleated RBC Nucleated RBC % (auto) Anion Gap Estim Creat Clear Calc Estimated GFR POC Glucose 116 H 150 H Fasting Glucose Calcium Procedures Date of Service Date of Service: 02/25/24 Progress Note: A&P Assessment and plan (1) S/P colostomy takedown: Status: Acute Plan Current plan is discharge patient home with follow-up with Dr. Jimenez. Discharge instructions reviewed. Patient was also evaluated in the presence of her significant other. Time Spent With Patient Time: Total time managing care of this patient today ____ minutes. Quality Stroke Does the patient have a stroke diagnosis?: No VTE Prior VTE?: No VTE Risk Level:: Surgical - moderate VTE Device Contraindication: N/A - Device Ordered VTE Drug Contraindication: N/A - Med Ordered
--- NOTE | 2024-02-25 14:26 | P.F2F_ITS ---
Service Date Service Date: 02/25/24 Encounter Date of encounter: 02/25/24 Reasons for Services Signs and symptoms assessed: Patient was status post major surgery involving colostomy takedown. PT evaluation recommends home health services Homebound: Leaving the home is medically contraindicated at this time without the asist of a device and/or another person due th the listed conditions above and below. Reason homebound: unsteady gait / fall risk and weakness related to hospital stay Certification: Based on the above findings, I certify that this patient is confined to the home and needs intermittent [facility] care, physical therapy and/or speech therapy, or continues to need occupational therapy. The patient is under my care, and I have initiated the establishment of the plan of care. The patient will be followed by a physician who will periodically review the plan of care. Time Spent With Patient Time: Total time managing care of this patient today ____ minutes.
--- NOTE | 2024-02-25 14:30 | MHC.CM.PN ---
PT TO DC HOME TODAY WITH RESUMPTION OF [facility] S/O TO TRANSPORT
[2024-02-25 14:38] VITALS: BP 98/49; PULSE 79; RESP 16; TEMP 36.8; O2SAT 96
--- NOTE | 2024-02-25 16:22 | PM.DS ---
DS: Providers Provider Date of Service: 02/25/24 Date of admission: 02/20/24 06:07 Date of discharge: 02/25/24 Primary care physician: Ap Deal MD Attending physician on admission: Marino Jimenez Consults: 02/20/24 12:42 Consult to Hospitalist Routine Comment: Consulting Provider: [facility] Hospitalists Reason For Exam: s/p colostomy reversal, diabetes, med management Attending physician on discharge: Francois Silva DS: Diagnosis Discharge Diagnosis (1) S/P colostomy takedown: Status: Acute DS: Summary Hospital Course Hospital Course: HPI AT ADMISSION: 78-year-old female patient with a prior history of 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 HOSPITAL COURSE: On 02/20/24, closure of colostomy, small bowel resection was performed by Dr. Jimenez without complication. 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 She tolerated the procedure well and was admitted to the surgical service following for observation. Hospitalist consult was obtained for management of her medical comorbidities. The patient had an uncomplicated recovery course. Her gordon catheter was removed on POD #1. She had some BRBPR which was expected and slowly resolved. Her H/H did drift down but she remained hemodynamically stable and she was asymptomatic from this therefore transfusion was held. Labs remained stable. She was advanced to a solid diet when she began to pass more continuous flatus. PT was consult and her activity was increased. On the day of discharge, she was tolerating a solid diet without nausea or vomiting, had nonbloody BMs, had good pain control and was comfortable on oral analgesics. She was ambulating with her walker without difficulty. She was hemodynamically stable with a benign abd with clean incisions. She was discharged on 02/25/24 in stable condition with VNA services. She is to follow up in the office in 1 week. Status at Discharge Functional status at discharge: uses cane/walker Overall status at discharge: patient is progressing back to baseline Time Attestation Discharge Coordination Time (in mins): 40 Quality: Safe Use of Opioids Does Pt have an Active Cancer Diagnosis on the Problem List?: No Quality: Stroke Does the patient have a stroke diagnosis?: No Physical Exam Vital Signs: Vital Signs: Last Vital Signs Temp 98.2 F 02/25/24 14:38 Pulse 79 02/25/24 14:38 Resp 16 02/25/24 14:38 BP 98/49 L 02/25/24 14:38 Pulse Ox 96 02/25/24 14:38 O2 Del Method Room Air 02/25/24 14:38 O2 Flow Rate 1 02/21/24 03:46 BMI result Body Mass Index 36.9 Const: General: comfortable, no acute distress and alert Orientation/consciousness: patient oriented x3 Resp: Effort & Inspection: normal respiratory effort GI: Other: protuberant abd midline and old colostomy incisions clean, rowena intact Palpation (GI): Soft to palpation and Tenderness to palpation present (GI) (mild incisional) Neuro: General: patient oriented x3 DS: Data Data Completed and Pending Completed studies during hospitalization [Text1]: 02/20/24 08:54 Surgical [PTH] Routine A. Colostomy, reversal: Enterocutaneous tissue with inflammatory changes and patchy necrosis. B. Anastomotic donuts: Colonic tissue with active mucosal inflammation Procedures Bypass Descending Colon to Cutaneous, Open Approach (10/04/23) Dilation of Right Ureter with Intraluminal Device, Via Natural or Artificial Opening Endoscopic (04/25/23) Drainage of Retroperitoneum with Drainage Device, Percutaneous Approach (12/08/21) Excision of Large Intestine, Via Natural or Artificial Opening Endoscopic, Diagnostic (04/25/23) Excision of Sigmoid Colon, Open Approach (10/04/23) Extirpation of Matter from Right Ureter, Via Natural or Artificial Opening Endoscopic (04/05/21) Fluoroscopy of Right Kidney, Ureter and Bladder (04/25/23) Introduction of Anesthetic Agent into Peripheral Nerves and Plexi, Percutaneous Approach (10/04/23) Discharge Plan Discharge Anticipated Discharge Date/Time: 02/25/24 13:58 Patient Disposition: Home Health Service Discharge Diagnosis: Colostomy takedown Referrals: [facility] Child [Outside] Marino Jimenez MD [Physician] - 1 Week Ap Deal MD [Primary Care Provider] - 1 Week Discharge Medications: New hydrocodone-acetaminophen 5-325 mg tablet 1 tab PO Q4-6H PRN (Reason: pain) Qty: 30 0RF Rx Instructions: Partial Fill upon patient request. Continued atorvastatin 10 mg tablet 1 tab PO DAILY metformin 500 mg tablet extended release 24 hr 1 tab PO DAILY@1700 furosemide 40 mg tablet 40 mg PO DAILY Qty: 30 0RF acetaminophen 500 mg Tablet 1,000 mg PO Q6H PRN (Reason: Pain) pyridoxine (vitamin B6) 50 mg tablet 50 mg PO DAILY levothyroxine 112 mcg tablet 224 mcg PO SUWE@0600 levothyroxine 112 mcg tablet 112 mcg PO MOTUTHFRSA@0600 cholecalciferol (vitamin D3) [Vitamin D3] 50 mcg (2,000 unit) tablet 50 mcg PO DAILY lisinopril 10 mg tablet 10 mg PO DAILY tramadol 50 mg tablet 50 mg PO BID PRN (Reason: pain (scale score 7-10)) Qty: 14 0RF Discharge Orders: Discharge Order (Routine); Ordered 02/25/24 Ordered By: Francois Silav Diet: Advance to usual diet Activity on Discharge: No heavy lifting Stand Alone Forms: Patient Portal Discharge page Print Language: Bhutanese Activity Restrictions/Additional Instructions: Ice to wound 20 minutes several times today and tomorrow. May shower tomorrow. No strenuous activities Care Plan Goals: Convalesced from surgery Health Concerns: No new issues Plan of Treatment: Returned to baseline Assessment: Stable Patient Instructions: Open Colostomy Reversal (DC) Discharge Date/Time: 02/25/24 15:07
== END 2024-02-25 15:07 | disposition home health service (06) | DRG 330 ==
LOC: HO.SSSA 07:08 → HO.S3 12:13
PROVIDERS: Nurse Practitioner; Physician Assistant Surgical; Admitting Provider Surgery; PCP Internal Medicine; Visit Provider Surgery
PROC: 0DB80ZZ Excision of Small Intestine, Open Approach (ICD-10-PCS; CPT 44620; principal; 2024-02-20 07:30)
DX: Z43.3 Encounter for attention to colostomy (principal); K62.5 Hemorrhage of anus and rectum; E78.5 Hyperlipidemia, unspecified; E11.9 Type 2 diabetes mellitus without complications; K66.0 Peritoneal adhesions (postprocedural) (postinfection); G89.18 Other acute postprocedural pain; Z87.891 Personal history of nicotine dependence; Z79.84 Long term (current) use of oral hypoglycemic drugs; Z79.890 Hormone replacement therapy; Z79.899 Other long term (current) drug therapy
CPT/HCPCS: 36415; 80048; 80053; 82565; 82947; 85025; 85610; 86850; 86900; 86901; 88304; 88305; 97116; 97162; 97530; C1758; C1773; J0131; J0665; J1100; J1171; J1650; J1836; J2003; J2250; J2371; J2405; J2704; J2795; J3010; J7120

== ENCOUNTER → 2024-02-20 06:07 | Outpatient (BNV) | payer MEDICARE, SELFPAY | PROVIDERS: Admitting Provider Surgery; PCP Internal Medicine; Visit Provider Nurse Practitioner Acute Care | DX: E11.22 Type 2 diabetes mellitus with diabetic chronic kidney disease (principal); I10 Essential (primary) hypertension; Z93.3 Colostomy status | CPT/HCPCS: 99222 ==

== ENCOUNTER → 2024-02-20 06:07 | Outpatient (BNV) | payer MEDICARE, SELFPAY | PROVIDERS: Admitting Provider Surgery; PCP Internal Medicine; Visit Provider Surgery | DX: Z98.890 Other specified postprocedural states (principal) | CPT/HCPCS: 44227; 99024 ==

== ENCOUNTER → 2024-03-02 10:45 | Outpatient (BNVA) | payer MEDICARE, SELFPAY | PROVIDERS: PCP Internal Medicine; Visit Provider Surgery | DX: Z48.815 Encounter for surgical aftercare following surgery on the digestive system (principal); R29.898 Other symptoms and signs involving the musculoskeletal system | CPT/HCPCS: 99212; 99495 ==

== ENCOUNTER 2024-03-02 12:11 | Outpatient (AMB) | payer MEDICARE, SELFPAY ==
--- NOTE | 2024-03-02 12:35 | A.OFFPC_ITS ---
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 Accompanied by: Spouse Allergies chlorpheniramine [From TUSSIONEX] Allergy (Severe, Verified 03/02/24 12:37) HALLUCINATIONS ciprofloxacin [From CIPRO] Allergy (Severe, Verified 03/02/24 12:37) ANAPHYLAXIS escitalopram [ESCITALOPRAM] Allergy (Severe, Verified 03/02/24 12:37) DISSOCIATIVE REACTION fluoxetine [FLUOXETINE] Allergy (Severe, Verified 03/02/24 12:37) DISSOCIATIVE REACTION hydrocodone [From TUSSIONEX] Allergy (Severe, Verified 03/02/24 12:37) HALLUCINATIONS ibuprofen [IBUPROFEN] Allergy (Severe, Verified 03/02/24 12:37) THROAT SWELLING Sulfa (Sulfonamide Antibiotics) [SULFA (SULFONAMIDE ANTIBIOTICS)] Allergy (Severe, Verified 03/02/24 12:37) DYSPNEA clarithromycin [From BIAXIN] Allergy (Intermediate, Verified 03/02/24 12:37) ABD.PAIN duloxetine [DULOXETINE] Allergy (Intermediate, Verified 03/02/24 12:37) FACIAL NUMBNESS erythromycin base [ERYTHROMYCIN BASE] Allergy (Intermediate, Verified 03/02/24 12:37) RASH Penicillins [PENICILLINS] Allergy (Intermediate, Verified 03/02/24 12:37) RASH tetracycline [TETRACYCLINE] Allergy (Intermediate, Verified 03/02/24 12:37) DIARRHEA codeine [CODEINE] Allergy (Unknown, Verified 03/02/24 12:37) TINNITIS guaifenesin Allergy (Unknown, Verified 03/02/24 12:37) Unknown levofloxacin [From Levaquin] Allergy (Unknown, Verified 03/02/24 12:37) Unknown pregabalin Allergy (Unknown, Verified 03/02/24 12:37) Unknown Tobacco use date assessed: 02/15/24 Fall risk assessment: No Falls in past year Last assessed Fall Risk: 03/02/24 Dental Screening Dental Screen Date: 02/15/24 HPI HPI Comments History of Present Illness Details 78 y/o female patient who presents to [facility] for TCM. Pt was admitted at [facility] on 02/20/24 and discharged home 02/25/24 for Colostomy reversal surgery. She had the procedure done 02/20/24 and saw surgeon 03/02/24 for Post-Op check up. Today Pt c/o Diarrhea that started this Afternoon. Denies fevers or chills. Denies nausea or vomiting. Pt asking for Physical therapy @ [facility]. Pt also asking for Wheelchair. Pt has lower extremities weakness and needs wheelchair for mobility. [facility] Medical History (Updated 03/02/24 @ 13:46 by Angelica García NP) Weakness of both lower extremities Hydroureteronephrosis Wound infection Open wound of back, complicated Cellulitis Frequency of urination Vaginal burning Vaginal itching PMB (postmenopausal bleeding) Cirrhosis of liver Does mobilize using walker PONV (postoperative nausea and vomiting) Left foot drop Fatty liver Fibromyalgia Neuropathy RBBB Cholelithiasis Staghorn calculus Renal calculus, bilateral Renal calyceal dilation determined by ultrasound UTI (urinary tract infection) Diabetes mellitus, type II Ganglion cyst Plantar fasciitis Anxiety OA (osteoarthritis) Obstructive airway disease Hypercholesterolemia Low back pain Sciatica Hypothyroidism HTN (hypertension) Primary osteoarthritis of right knee Retained ureteral stent Renal stones Staghorn calculus Perirectal abscess Surgical History History of colostomy reversal (02/20/24) History of colectomy (~10/06/23) Status post cystoscopy with ureteral stent placement History of lumbar discectomy History of lumpectomy of both breasts History of cystoscopy History of lithotripsy Hx of colonoscopy History of surgery Family History Father Alcohol dependence Mother CHF (congestive heart failure) Cancer of breast Mother No problems noted. Other Alcoholic cirrhosis Substance use disorder Social History Household Members: Significant Other Housing: House Are you a primary clinical care leader to a significant other at home: No Do you presently have visiting nurse or other home services: Yes (VNA) 75 years or older and lives alone: No Alcohol intake: never Comment: wheelchair for long distances Patient Tobacco Use Status: Former Tobacco user Tobacco use type: Cigarette Years Smoked: 27 e-Cigarette/Vaping Use: Never Used Second Hand Smoke Exposure: Yes Advance Directives Date on File: 04/06/21 service: No Current occupational status: disabled Cognitive needs: Yes (wheelchair) Hearing needs: No Vision needs: Yes (Glasses) Questionnaire Thrive Questionnaire Date Thrive assessed: 02/21/24 RAMONE-7 AMB Questionnaire RAMONE-7 Date RAMONE - 7 assessed: 02/15/24 Source: Developed by Drs. Preston Aponte, Jojo Holland, Subhash Richmond and colleagues, with an educational vernon from [employer]. Review of Systems Const All systems reviewed & are unremarkable except as noted in HPI and below Physical exam (Primary Care) Vital Signs: Last Vital Signs Temp 96.9 F 03/02/24 12:38 Pulse 80 03/02/24 12:38 BP 110/46 L 03/02/24 12:38 Pulse Ox 97 03/02/24 12:38 Oxygen Delivery Method Room Air 03/02/24 12:38 BMI result Body Mass Index 35.0 Tobacco/Smoking Status: Tobacco use Status Tobacco use date assessed 02/15/24 03/02/24 12:35 Patient Tobacco Use Status Former Tobacco user 03/02/24 12:35 Tobacco use type Cigarette 03/02/24 12:35 e-Cigarette/Vaping Use Never Used 03/02/24 12:35 Thrive Assessment: Date of Thrive Assessment Date Thrive assessed 02/21/24 03/02/24 12:35 Const General: cooperative and no acute distress Nutritional Appearance: obese Orientation/consciousness: patient oriented x3 Limitations: wheelchair Resp Effort & Inspection: normal respiratory effort Auscultation: clear to auscultation bilaterally Cardio Heart sounds: S1 normal heart sound present and S2 normal heart sound present GI Other: Large Surgical Dressing on Abdomen, dry clean and intact. Palpation (GI): Soft to palpation, not firm, Tenderness to palpation present (GI) in the LLQ, no guarding and not rigid Auscultation: normal bowel sounds Neuro General: patient oriented x3 and moves all extremities Psych Speech and movement: Normal speech and movement present Coding Level of Care Code TCM Mod MDM <= 7 Days Diagnoses S/P colostomy takedown Z98.890 Weakness of both lower extremities R29.898 Time Spent (min) 20 Assessment & Plan Assessment & Plan (1) S/P colostomy takedown: Code(s): Z98.890 - Other specified postprocedural states Category: Surgical Plan: Managed by [facility] General surgery. Advised BLAND diet and hydrate well for Diarrhea treatment. (2) Weakness of both lower extremities: Code(s): R29.898 - Other symptoms and signs involving the musculoskeletal system Category: Medical Plan: Placed PT referral for patient. Orders: Orders PT Evaluation and Treatment Today R29.898 - Other symptoms and signs involving the musculoskeletal system
[2024-03-02 12:38] VITALS: BP 110/46; PULSE 80; TEMP 36.1; O2SAT 97; BMI 35.0
--- OUTSIDE RECORDS SUMMARY | 2024-03-02 14:20 | XMS_ITS | Clinical Summary ---
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 Role Phone Preston Wang DO Primary Care Provider [phone] Social History Tobacco Use Types Packs/Day Years Used Date Smoking Tobacco: Never Assessed Sex and Gender Information Value Date Recorded Sex Assigned at Not on file Gender Identity Not on file Sexual Orientation Not on file Plan of Treatment Health Maintenance Due Date Last Done Comments DTaP,Tdap,and Td Vaccines (1 - Tdap) 1966 Zoster Vaccines (1 of 2) 1997 Pneumococcal Vaccine: 65+ Ye ars (1 of 1 - PCV) 2012 RSV Immunization Patients 60 + Years Old (1 - 1-dose 75+ series) 2022 COVID-19 Vaccine ( - 2023-2 5 season) 2023 Influenza Vaccine (#1) 2023 HIB Vaccines Aged Out No longer eligi ble based on patient's age to complete this topic HPV Vaccines Aged Out No longer eligi ble based on patient's age to complete this topic Hepatitis A Vaccines Aged Out No long er eligible based on patient's age to complete this topic Hepatitis B Vaccines Aged Out No long er eligible based on patient's age to complete this topic IPV Vaccines Aged Out No longer eligi ble based on patient's age to complete this topic MMR Vaccines Aged Out No longer eligi ble based on patient's age to complete this topic Meningococcal ACWY Vaccine Aged Out N o longer eligible based on patient's age to complete this topic RSV Immunization Patients Un will 20 months Aged Out No longer eligible b ased on patient's age to complete this topic Varicella Vaccines Aged Out No longer eligible based on patient's age to complete this topic Advance Directives Documents on File Type Date Recorded 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
--- OUTSIDE RECORDS SUMMARY | 2024-03-02 14:20 | XMS_ITS | Patient Health Record ---
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4 [...] Estimated Glomerular Filt Rate 34 NOTE: For -Swedish individuals, multiply the result by 1.210. Chronic [...] Lipase Reviewed date:04/12/2023 09:21:42 PM Interpretation:Normal Performing Lab:[address] [address] Notes/Report: Lipase 15 8-78 U/L SARS-CoV2/FLU/RSV Reviewed date:04/12/2023 09:21:42 PM Interpretation:Negative Performing Lab:[address] [address] Notes/Report: Influenza A PCR NEGATIVE Negative Influenza [...] by authorized laboratories. Testing performed on the [email or web address] GeneXpert utilizing real-time RT-PCR. All SARS CoV2 and positive influenza A/B results are reported to [facility]. Lactic Acid Reviewed date:04/12/2023 09:21:42 PM Interpretation:Abnormal Performing Lab:[address] [address] Notes/Report: Lactic Acid 2.5 0.5-2.0 mmol/L Critical value for test(s): LACTA Results called to and read back by: HCANTALE Person calling: LANEY Date: 04/12/23 Time: 1523 Lactic Acid-LAB USE ONLY Reviewed date:04/12/2023 09:21:42 PM Interpretation:Abnormal Performing Lab:[address] [address] Notes/Report: Lactic Acid-LAB USE ONLY 2.1 0.5-2.0 mmol/L Critical value for test(s): LACTA Results called to and read back by:DEONDRE Person calling: SALIERD Date: 04/12/23 Time: 1743 Lactic Acid-LAB USE ONLY Reviewed date:04/12/2023 09:21:42 PM Interpretation:Abnormal Performing Lab:[address] [address] Notes/Report: Lactic Acid-LAB USE ONLY 2.1 0.5-2.0 mmol/L Critical value for test(s): LACTA Results called to and read back by: LETICIA Person calling: MSA ManagementERD Date: 04/12/23 Time:1953 UA ClnCatch+Micro w/rflx Cul t Reviewed date:04/12/2023 09:21:42 PM Interpretation:Abnormal Performing Lab:[address] [address] Notes/Report: Urine, Clean Catch Color Urine Yellow Appearance Urine Cloudy PH 6.0 5.0-9.0 Glucose Urine UA 100 Negative mg/dL Urine Blood Small (1+) Negative Specific [place] - Urine 1.010 1.005-1.025 Urine Protein 30 (1+) Neg-Trace mg/dL Urine Ketones Negative Negative mg/dL Nitrite Urine Negative Negative Leukocyte Esterase Urine Large (3+) Negative RBC Urine 6-10 0-2 /HPF WBC Urine >50 0-5 /HPF Squamous Epithelial Cell Urine 0-2 0-2 /HPF Bacteria Urine 4+ None Seen Hyaline Casts Urine 0-2 0-2 /LPF Urine Culture Reviewed date:04/14/2023 04:54:46 PM Interpretation:Abnormal Performing Lab:[address] [address] Notes/Report: Urine Culture Report Result Urine Culture > 100,000 cfu/ml Urine Culture Mixed bacterial ray a characteristic of Urine Culture urogenital contamination. Blood Culture (First) Reviewed date:04/17/2023 05:24:20 PM Interpretation:Negative Performing Lab:[address] [address] Notes/Report: Blood Culture (First) No growth after 5 days. Blood Culture (Second) Reviewed date:04/18/2023 09:10:55 AM Interpretation:Negative Performing Lab:[facility], [address] [place] [address] Notes/Report: Blood Culture (Second) No growth after 5 days. Complete Blood Count Auto Di ff Reviewed date:04/24/2023 06:35:30 PM Interpretation:Abnormal Performing Lab:[facility], [address] [place] [address] Notes/Report: White Blood Count 9.3 4.8-10.8 X10*3/uL [...] t Reviewed date:04/24/2023 06:35:30 PM Interpretation:Abnormal Performing Lab:[facility], [address] [place] [address] Notes/Report: Urine, Clean Catch Color Urine Yellow Appearance Urine Clear PH 6.0 5.0-9.0 Glucose Urine UA Negative Negative mg/dL Urine Blood Moderate (2+) Negative Specific [place] - Urine 1.010 1.005-1.025 Urine Protein Negative Neg-Trace mg/dL Urine Ketones Negative Negative mg/dL Nitrite Urine Negative Negative Leukocyte Esterase Urine Moderate (2+) Negative RBC Urine 11-20 0-2 /HPF WBC Urine 11-20 0-5 /HPF Squamous Epithelial Cell Urine 0-2 0-2 /HPF Bacteria Urine None Seen None Seen Hyaline Casts Urine 0-2 0-2 /LPF Comprehensive Met. Panel Reviewed date:04/24/2023 06:35:30 PM Interpretation:Abnormal Performing Lab:[facility], [address] [place] [address] Notes/Report: Sodium 137 135-145 mmol/L Potassium 3.8 [...] Estimated Glomerular Filt Rate 37 NOTE: For -Swedish individuals, multiply the result by 1.210. Chronic [...] SARS-CoV2/FLU/RSV Reviewed date:04/24/2023 06:35:30 PM Interpretation:Negative Performing Lab:[facility], [address] [place] [address] Notes/Report: Influenza A PCR NEGATIVE Negative Influenza [...] by authorized laboratories. Testing performed on the [email or web address] GeneXpert utilizing real-time RT-PCR. All SARS CoV2 and positive influenza A/B results are reported to [facility]. Lactic Acid Reviewed date:04/25/2023 11:17:08 AM Interpretation:Normal Performing Lab:[facility], [address] [place] [address] Notes/Report: Lactic Acid 1.3 0.5-2.0 mmol/L Complete Blood Count Auto Di ff Reviewed date:04/25/2023 11:17:08 AM Interpretation:Abnormal Performing Lab:[facility], [address] [place] [address] Notes/Report: White Blood Count 6.3 4.8-10.8 X10*3/uL [...] Panel Reviewed date:04/25/2023 11:17:08 AM Interpretation:Abnormal Performing Lab:[facility], [address] [place] [address] Notes/Report: Sodium 138 135-145 mmol/L Potassium 4.0 [...] Estimated Glomerular Filt Rate 35 NOTE: For -Swedish individuals, multiply the result by 1.210. Chronic Kidney Disease: Estimated GFR < 60 mL/min/1.73m2 Severe Kidney Disease: Estimated GFR < 15 mL/min/1.73m2 Glucose Random 108 60-115 mg/dL Calcium 8.4 8.4-10.2 mg/dL Glucose, Whole Blood Reviewed date:04/25/2023 11:17:08 AM Interpretation:Abnormal Performing Lab:[facility], [address] [place] [address] Notes/Report: Glucose, Whole Blood 121 60-115 mg/dL METER # : [id number] Urine Culture Reviewed date:04/25/2023 11:17:08 AM Interpretation:Abnormal Performing Lab:[facility], [address] [place] [address] Notes/Report: O:STRVID Streptococcus viridans group Urine Culture Quant Urine Culture 50,000 to 100,000 cfu/mL Urine Culture 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 Urine Culture Susceptibility not routinely performed on this isolate. Glucose, Whole Blood Reviewed date:04/25/2023 01:40:34 PM Interpretation:Normal Performing Lab:[facility], [address] [place] [address] Notes/Report: Glucose, Whole Blood 104 60-115 mg/dL METER # : [id number] Glucose, Whole Blood Reviewed date:04/25/2023 08:36:54 PM Interpretation:Normal Performing Lab:[facility], [address] [place] [address] Notes/Report: Glucose, Whole Blood 107 60-115 mg/dL METER # : [id number] Glucose, Whole Blood Reviewed date:04/25/2023 10:42:39 PM Interpretation:Abnormal Performing Lab:[facility], [address] [place] [address] Notes/Report: Glucose, Whole Blood 141 60-115 mg/dL METER # : [id number] Hold Lav - Possible Hematolo gy Reviewed date:04/26/2023 09:08:07 AM Interpretation:Hold Performing Lab:[address] [address] Notes/Report: Hold Lav - Possible Hematology SEE NOTE Specimen will be held untested for 8 hours. Call Hematology if testing is desired. Creatinine Reviewed date:04/26/2023 09:08:07 AM Interpretation:Normal Performing Lab:[facility], [address] [place] [address] Notes/Report: Creatinine 1.27 0.5-1.4 mg/dL Creatinine Clr Calc Pharmacy 42.8 Provided height and weight: 162.56 cm, 97.8 kg. eGFR (calculated from the MDRD study equation) and eCrCl (calculated from the Cockcroft-Gault equation) are based on different parameters and may not yield comparable results. If eCrCl result is absurd, please check patient's height/weight. Estimated Glomerular Filt Rate 41 NOTE: For -Swedish individuals, multiply the result by 1.210. Chronic Kidney Disease: Estimated GFR < 60 mL/min/1.73m2 Severe Kidney Disease: Estimated GFR < 15 mL/min/1.73m2 Glucose, Whole Blood Reviewed date:04/26/2023 09:08:07 AM Interpretation:Normal Performing Lab:[facility], [address] [place] [address] Notes/Report: Glucose, Whole Blood 107 60-115 mg/dL METER # : [id number] Glucose, Whole Blood Reviewed date:04/26/2023 11:15:52 AM Interpretation:Normal Performing Lab:[facility], [address] [place] [address] Notes/Report: Glucose, Whole Blood 112 60-115 mg/dL METER # : [id number] Glucose, Whole Blood Reviewed date:04/26/2023 04:23:30 PM Interpretation:Abnormal Performing Lab:[facility], [address] [place] [address] Notes/Report: Glucose, Whole Blood 123 60-115 mg/dL METER # : [id number] Glucose, Whole Blood Reviewed date:04/27/2023 09:28:01 AM Interpretation:Abnormal Performing Lab:[facility], [address] [place] [address] Notes/Report: Glucose, Whole Blood 143 60-115 mg/dL METER # : [id number] Vancomycin Random Reviewed date:04/27/2023 09:28:01 AM Interpretation:Low Performing Lab:[facility], [address] [place] [address] Notes/Report: Vancomycin Random 11.6 15-20 mcg/mL Creatinine Reviewed date:04/27/2023 09:28:01 AM Interpretation:Abnormal Performing Lab:[facility], [address] [place] [address] Notes/Report: Creatinine 1.30 0.5-1.4 mg/dL Creatinine Clr Calc Pharmacy 41.7 Provided height and weight: 162.56 cm, 97.8 kg. eGFR (calculated from the MDRD study equation) and eCrCl (calculated from the Cockcroft-Gault equation) are based on different parameters and may not yield comparable results. If eCrCl result is absurd, please check patient's height/weight. Estimated Glomerular Filt Rate 40 NOTE: For -Swedish individuals, multiply the result by 1.210. Chronic Kidney Disease: Estimated GFR < 60 mL/min/1.73m2 Severe Kidney Disease: Estimated GFR < 15 mL/min/1.73m2 Glucose, Whole Blood Reviewed date:04/27/2023 09:28:01 AM Interpretation:Normal Performing Lab:[facility], [address] [place] [address] Notes/Report: Glucose, Whole Blood 94 60-115 mg/dL METER # : [id number] Glucose, Whole Blood Reviewed date:04/27/2023 12:03:35 PM Interpretation:Abnormal Performing Lab:[facility], [address] [place] [address] Notes/Report: Glucose, Whole Blood 135 60-115 mg/dL METER # : [id number] Glucose, Whole Blood Reviewed date:04/27/2023 05:12:58 PM Interpretation:Abnormal Performing Lab:[facility], [address] [place] [address] Notes/Report: Glucose, Whole Blood 160 60-115 mg/dL METER # : [id number] Glucose, Whole Blood Reviewed date:04/28/2023 04:05:46 PM Interpretation:Abnormal Performing Lab:[facility], [address] [place] [address] Notes/Report: Glucose, Whole Blood 128 60-115 mg/dL METER # : [id number] Vancomycin Random Reviewed date:04/28/2023 03:21:35 PM Interpretation:Low Performing Lab:[facility], [address] [place] [address] Notes/Report: Vancomycin Random 12.0 15-20 mcg/mL Hold Lav - Possible Hematolo gy Reviewed date:04/28/2023 03:21:35 PM Interpretation:Hold Performing Lab:[facility], [address] [place] [address] Notes/Report: Hold Lav - Possible Hematology SEE NOTE Specimen will be held untested for 8 hours. Call Hematology if testing is desired. Creatinine Reviewed date:04/28/2023 03:21:35 PM Interpretation:Normal Performing Lab:[facility], [address] [place] [phone] Notes/Report: Creatinine 1.02 0.5-1.4 mg/dL Creatinine Clr Calc Pharmacy 53.2 Provided height and weight: 162.56 cm, 97.8 kg. eGFR (calculated from the MDRD study equation) and eCrCl (calculated from the Cockcroft-Gault equation) are based on different parameters and may not yield comparable results. If eCrCl result is absurd, please check patient's height/weight. Estimated Glomerular Filt Rate 53 NOTE: For -Swedish individuals, multiply the result by 1.210. Chronic Kidney Disease: Estimated GFR < 60 mL/min/1.73m2 Severe Kidney Disease: Estimated GFR < 15 mL/min/1.73m2 Glucose, Whole Blood Reviewed date:04/28/2023 03:21:35 PM Interpretation:Normal Performing Lab:[facility], [address] [place] [address] Notes/Report: Glucose, Whole Blood 90 60-115 mg/dL METER # : [id number] Glucose, Whole Blood Reviewed date:04/28/2023 03:21:35 PM Interpretation:Normal Performing Lab:[facility], [address] [place] [address] Notes/Report: Glucose, Whole Blood 101 60-115 mg/dL METER # : [id number] Glucose, Whole Blood Reviewed date:04/28/2023 03:21:35 PM Interpretation:Abnormal Performing Lab:[facility], [address] [place] [address] Notes/Report: Glucose, Whole Blood 212 60-115 mg/dL METER # : [id number] Glucose, Whole Blood Reviewed date:04/28/2023 11:20:44 PM Interpretation:Normal Performing Lab:[facility], [address] [place] [address] Notes/Report: Glucose, Whole Blood 93 60-115 mg/dL METER # : [id number] Glucose, Whole Blood Reviewed date:04/28/2023 11:20:44 PM Interpretation:Abnormal Performing Lab:[facility], [address] [place] [address] Notes/Report: Glucose, Whole Blood 137 60-115 mg/dL METER # : [id number] Hold Lav - Possible Hematolo gy Reviewed date:04/29/2023 09:29:12 AM Interpretation:Hold Performing Lab:[facility], [address] [place] [address] Notes/Report: Hold Lav - Possible Hematology SEE NOTE Specimen will be held untested for 8 hours. Call Hematology if testing is desired. Creatinine Reviewed date:04/29/2023 09:29:12 AM Interpretation:Abnormal Performing Lab:[facility], [address] [place] [address] Notes/Report: Creatinine 1.26 0.5-1.4 mg/dL Creatinine Clr Calc Pharmacy 43.1 Provided height and weight: 162.56 cm, 97.8 kg. eGFR (calculated from the MDRD study equation) and eCrCl (calculated from the Cockcroft-Gault equation) are based on different parameters and may not yield comparable results. If eCrCl result is absurd, please check patient's height/weight. Estimated Glomerular Filt Rate 41 NOTE: For -Swedish individuals, multiply the result by 1.210. Chronic Kidney Disease: Estimated GFR < 60 mL/min/1.73m2 Severe Kidney Disease: Estimated GFR < 15 mL/min/1.73m2 Glucose, Whole Blood Reviewed date:04/29/2023 09:29:12 AM Interpretation:Normal Performing Lab:[facility], [address] [place] [address] Notes/Report: Glucose, Whole Blood 107 60-115 mg/dL METER # : [id number] Glucose, Whole Blood Reviewed date:04/29/2023 11:56:17 AM Interpretation:Abnormal Performing Lab:[facility], [address] [place] [address] Notes/Report: Glucose, Whole Blood 123 60-115 mg/dL METER # : [id number] Pathology Reviewed date:04/29/2023 04:01:14 PM Interpretation:Benign Performing Lab:[facility], [address] [place] [address] Notes/Report: Glucose, Whole Blood Reviewed date:04/30/2023 12:50:15 PM Interpretation:Abnormal Performing Lab:[facility], [address] [place] [address] Notes/Report: Glucose, Whole Blood 134 60-115 mg/dL METER # : [id number] Glucose, Whole Blood Reviewed date:04/30/2023 12:50:15 PM Interpretation:Abnormal Performing Lab:[facility], [address] [place] [address] Notes/Report: Glucose, Whole Blood 142 60-115 mg/dL METER # : [id number] Blood Culture < 90 LBS Reviewed date:04/30/2023 12:49:02 PM Interpretation:Negative Performing Lab:[facility], [address] [place] [address] Notes/Report: Blood Culture X1 No growth after 5 days. Hold Lav - Possible Hematolo gy Reviewed date:04/30/2023 12:49:22 PM Interpretation:Hold Performing Lab:[facility], [address] [place] [address] Notes/Report: Hold Lav - Possible Hematology SEE NOTE Specimen will be held untested for 8 hours. Call Hematology if testing is desired. Creatinine Reviewed date:04/30/2023 12:50:15 PM Interpretation:Abnormal Performing Lab:[facility], [address] [place] [address] Notes/Report: Creatinine 1.03 0.5-1.4 mg/dL Creatinine Clr Calc Pharmacy 52.7 Provided height and weight: 162.56 cm, 97.8 kg. eGFR (calculated from the MDRD study equation) and eCrCl (calculated from the Cockcroft-Gault equation) are based on different parameters and may not yield comparable results. If eCrCl result is absurd, please check patient's height/weight. Estimated Glomerular Filt Rate 52 NOTE: For -Swedish individuals, multiply the result by 1.210. Chronic Kidney Disease: Estimated GFR < 60 mL/min/1.73m2 Severe Kidney Disease: Estimated GFR < 15 mL/min/1.73m2 Glucose, Whole Blood Reviewed date:04/30/2023 12:50:15 PM Interpretation:Normal Performing Lab:[facility], [address] [place] [address] Notes/Report: Glucose, Whole Blood 99 60-115 mg/dL METER # : [id number] Complete Blood Count Auto Di ff Reviewed date:07/03/2023 11:45:43 AM Interpretation:Normal Performing Lab:[facility], [address] [place] [address] Notes/Report: White Blood Count 8.5 4.8-10.8 X10*3/uL [...] Cult Reviewed date:07/03/2023 11:45:43 AM Interpretation:Abnormal Performing Lab:[facility], [address] [place] [address] Notes/Report: [id number] Urine, Clean Catch Color Urine Yellow Appearance Urine Cloudy PH 6.0 5.0-9.0 Glucose Urine UA 100 Negative mg/dL Urine Blood Large (3+) Negative Specific [place] - Urine 1.015 1.005-1.025 Urine Protein 30 (1+) Neg-Trace mg/dL Urine Ketones Negative Negative mg/dL Nitrite Urine Negative Negative Leukocyte Esterase Urine Large (3+) Negative UA ClnCatch+Micro w/rflx Cul t Reviewed date:07/03/2023 11:45:43 AM Interpretation:Abnormal Performing Lab:[facility], [address] [place] [address] Notes/Report: [id number] Urine, Clean Catch Color Urine Yellow Appearance Urine Cloudy PH 6.0 5.0-9.0 Glucose Urine UA 100 Negative mg/dL Urine Blood Large (3+) Negative Specific [place] - Urine 1.015 1.005-1.025 Urine Protein 30 (1+) Neg-Trace mg/dL Urine Ketones Negative Negative mg/dL Nitrite Urine Negative Negative Leukocyte Esterase Urine Large (3+) Negative RBC Urine >20 0-2 /HPF WBC Urine >50 0-5 /HPF Squamous Epithelial Cell Urine 0-2 0-2 /HPF Bacteria Urine None Seen None Seen Hyaline Casts Urine 0-2 0-2 /LPF Liver Panel Reviewed date:07/03/2023 11:43:48 AM Interpretation:Normal Performing Lab:[facility], [address] [place] [address] Notes/Report: Bilirubin Total 0.4 0.0-1.0 mg/dL Bilirubin Direct 0.2 0.0-0.5 mg/dL Aspartate Amino Transferase 29 5-31 U/L Alanine Aminotransferase 26 0-31 U/L Total Protein 7.9 6.5-8.0 g/dL Albumin Level 3.8 3.5-5.0 g/dL Alkaline Phosphatase 64 39-117 U/L Basic Metabolic Panel Reviewed date:07/03/2023 11:44:40 AM Interpretation:Abnormal Performing Lab:[facility], [address] [place] [address] Notes/Report: Sodium 138 135-145 mmol/L Potassium 4.3 [...] Estimated Glomerular Filt Rate 31 NOTE: For -Swedish individuals, multiply the result by 1.210. Chronic Kidney Disease: Estimated GFR < 60 mL/min/1.73m2 Severe Kidney Disease: Estimated GFR < 15 mL/min/1.73m2 Glucose Random 172 60-115 mg/dL Calcium 9.4 8.4-10.2 mg/dL Urine Culture Reviewed date:07/04/2023 10:16:40 AM Interpretation:Abnormal Performing Lab:[facility], [address] [place] [address] Notes/Report: O:PROMIR Proteus mirabilis Urine Culture Quant Urine Culture 10,000 to 50,000 cfu/mL Ampicillin <=2 Ceftriaxone <=0.25 Gentamicin <=1 Nitrofurantoin 128 Trimethoprim/Sulfamethox azole <=20 Bacterial Vaginosis Panel Reviewed date:07/06/2023 05:45:16 PM Interpretation:Negative Performing Lab:[facility], [address] [place] [address] Notes/Report: Trichomonas vaginalis PCR NOT DETECTED Not [...] Culture Reviewed date:07/21/2023 11:53:01 AM Interpretation:Abnormal Performing Lab:[facility], [address] [place] [address] Notes/Report: Urine Culture Report Result Urine Culture < 10,000 cfu/ml Urinalysis and Microscopic Reviewed date:07/20/2023 09:57:35 AM Interpretation:Abnormal Performing Lab:[facility], [address] [place] [address] Notes/Report: Color Urine Yellow Appearance Urine Clear PH 6.0 5.0-9.0 Glucose Urine UA Negative Negative mg/dL Urine Blood Moderate (2+) Negative Specific [place] - Urine <= 1.005 1.005-1.025 Urine Protein [...] t Reviewed date:07/22/2023 09:03:33 AM Interpretation:Abnormal Performing Lab:[facility], [address] [place] [address] Notes/Report: [id number] Urine, Clean Catch Color Urine Red Appearance Urine Turbid PH 5.5 5.0-9.0 Glucose Urine UA Negative Negative mg/dL Urine Blood Large (3+) Negative Specific [place] - Urine 1.010 1.005-1.025 Urine Protein 100 (2+) Neg-Trace mg/dL Urine Ketones Negative Negative mg/dL Nitrite Urine Negative Negative Leukocyte Esterase Urine Large (3+) Negative RBC Urine >20 0-2 /HPF WBC Urine >50 0-5 /HPF Squamous Epithelial Cell Urine 0-2 0-2 /HPF Bacteria Urine None Seen None Seen Hyaline Casts Urine 0-2 0-2 /LPF Urine Culture Reviewed date:07/23/2023 10:17:54 PM Interpretation:Abnormal Performing Lab:[facility], [address] [place] [address] Notes/Report: Urine Culture Report Result Urine Culture 10,000 to 50,000 cfu/ml Urine Culture Mixed bacterial ray a characteristic of Urine Culture urogenital contamination. C Reactive Protein Reviewed date:08/16/2023 04:50:12 PM Interpretation:Abnormal Performing Lab:[address] [address] Notes/Report: C Reactive Protein 1.64 < or = 0.50 mg/dL Basic Metabolic Panel Reviewed date:08/16/2023 04:50:12 PM Interpretation:Abnormal Performing Lab:[address] [address] Notes/Report: Sodium 137 135-145 mmol/L Potassium 3.8 3.3-5.1 mmol/L Chloride 106 96-108 mmol/L Carbon Dioxide 23 22-29 mmol/L Anion Gap 12 12-20 Blood Urea Nitrogen 21 9-16 mg/dL Creatinine 1.34 0.5-1.4 mg/dL Estimated Glomerular Filt Rate 38 NOTE: For -Swedish individuals, multiply the result by 1.210. Chronic Kidney Disease: Estimated GFR < 60 mL/min/1.73m2 Severe Kidney Disease: Estimated GFR < 15 mL/min/1.73m2 Glucose Random 153 60-115 mg/dL Calcium 9.2 8.4-10.2 mg/dL Complete Blood Count Auto Di ff Reviewed date:08/16/2023 04:50:12 PM Interpretation:Normal Performing Lab:[address] [address] Notes/Report: White Blood Count 9.0 4.8-10.8 X10*3/uL [...] te Reviewed date:08/17/2023 09:09:14 AM Interpretation:Abnormal Performing Lab:[address] [address] Notes/Report: Erythrocyte Sedimentation Rate 51 0-20 MM/HR Patients with polycythemia and many hemoglobin abnormalities may have depressed sed rates whereas patients with anemia may have elevated sed rates. UA ClnCatch+Micro w/rflx Cul t Reviewed date:10/03/2023 04:53:39 PM Interpretation:Abnormal Performing Lab:[address] [address] Notes/Report: [id number] Urine, Clean Catch Color Urine Yellow Appearance Urine Turbid PH 6.5 5.0-9.0 Glucose Urine UA 100 Negative mg/dL Urine Blood Moderate (2+) Negative Specific [place] - Urine 1.015 1.005-1.025 Urine Protein 100 [...] ff Reviewed date:10/03/2023 04:53:39 PM Interpretation:Abnormal Performing Lab:[facility], [address] [place] [address] Notes/Report: White Blood Count 12.0 4.8-10.8 X10*3/uL [...] Panel Reviewed date:10/03/2023 04:53:39 PM Interpretation:Abnormal Performing Lab:[facility], [address] [place] [address] Notes/Report: Sodium 136 135-145 mmol/L Potassium 4.3 [...] Estimated Glomerular Filt Rate 27 NOTE: For -Swedish individuals, multiply the result by 1.210. Chronic [...] Panel Reviewed date:10/03/2023 04:53:39 PM Interpretation:Normal Performing Lab:[facility], [address] [place] [address] Notes/Report: Bilirubin Direct 0.4 0.0-0.5 mg/dL Slight Hem olysis Lipase Reviewed date:10/03/2023 04:53:39 PM Interpretation:Normal Performing Lab:[facility], [address] [place] [address] Notes/Report: Lipase 12 8-78 U/L SARS-CoV2/FLU/RSV Reviewed date:10/03/2023 04:54:02 PM Interpretation:Negative Performing Lab:[address] [address] Notes/Report: Influenza A PCR NEGATIVE Negative Influenza [...] by authorized laboratories. Testing performed on the [email or web address] GeneXpert utilizing real-time RT-PCR. All SARS CoV2 and positive influenza A/B results are reported to [facility]. Lactic Acid Reviewed date:10/04/2023 09:13:26 AM Interpretation:Abnormal Performing Lab:[address] [address] Notes/Report: Lactic Acid 2.5 0.5-2.0 mmol/L Critical value for test(s): LACTIC ACID Results called to and read back by:ANDREIA Person calling:TILA Date:10/04/23 Time:0022 Lactic Acid-LAB USE ONLY Reviewed date:10/04/2023 09:13:26 AM Interpretation:Normal Performing Lab:[facility], [address] [place] [address] Notes/Report: Lactic Acid-LAB USE ONLY 1.1 0.5-2.0 mmol/L Glucose, Whole Blood Reviewed date:10/04/2023 09:13:26 AM Interpretation:Abnormal Performing Lab:[address] [address] Notes/Report: Glucose, Whole Blood 117 60-115 mg/dL METER # : [id number] Glucose, Whole Blood Reviewed date:10/04/2023 10:09:31 AM Interpretation:Abnormal Performing Lab:[facility], [address] [place] [address] Notes/Report: Glucose, Whole Blood 128 60-115 mg/dL METER # : [id number] Complete Blood Count Auto Di ff Reviewed date:10/04/2023 10:28:57 AM Interpretation:Abnormal Performing Lab:[facility], [address] [place] [address] Notes/Report: White Blood Count 9.6 4.8-10.8 X10*3/uL [...] Panel Reviewed date:10/04/2023 10:51:28 AM Interpretation:Abnormal Performing Lab:[facility], [address] [place] [address] Notes/Report: Sodium 137 135-145 mmol/L Potassium 4.2 [...] Estimated Glomerular Filt Rate 19 NOTE: For -Swedish individuals, multiply the result by 1.210. Chronic Kidney Disease: Estimated GFR < 60 mL/min/1.73m2 Severe Kidney Disease: Estimated GFR < 15 mL/min/1.73m2 Glucose Random 130 60-115 mg/dL Calcium 8.8 8.4-10.2 mg/dL Electrolytes Urine Reviewed date:10/04/2023 03:23:13 PM Interpretation:Normal Performing Lab:[facility], [address] [place] [address] Notes/Report: Chloride Urine Random 41.0 Sodium Urine Random 61.0 Potassium Urine Random 42.2 Protein Creatinine Ratio, Ur Reviewed date:10/04/2023 03:23:13 PM Interpretation:Abnormal Performing Lab:[facility], [address] [place] [address] Notes/Report: Creatinine Urine 158.74 Total Protein Urine Random 189 <12 mg/dL Protein/Creatinine Ratio, Ur 1.19 <0.2 The spot urine protein:creatinine ratio may increase to 0.3 during normal . Glucose, Whole Blood Reviewed date:10/04/2023 03:23:13 PM Interpretation:Abnormal Performing Lab:[facility], [address] [place] [address] Notes/Report: Glucose, Whole Blood 135 60-115 mg/dL METER # : [id number] Glucose, Whole Blood Reviewed date:10/04/2023 10:27:56 PM Interpretation:Abnormal Performing Lab:[facility], [address] [place] [address] Notes/Report: Glucose, Whole Blood 137 60-115 mg/dL METER # : [id number] Creatinine Urine Reviewed date:10/05/2023 09:45:35 AM Interpretation:Normal Performing Lab:[facility], [address] [place] [address] Notes/Report: Creatinine Urine 41.25 Sodium Urine Random Reviewed date:10/05/2023 09:45:35 AM Interpretation:Normal Performing Lab:[facility], [address] [place] [address] Notes/Report: Sodium Urine Random 55.0 Total Protein Urine Random Reviewed date:10/05/2023 09:45:35 AM Interpretation:Abnormal Performing Lab:[facility], [address] [place] [address] Notes/Report: Total Protein Urine Random 19 <12 mg/dL Glucose, Whole Blood Reviewed date:10/05/2023 09:45:35 AM Interpretation:Normal Performing Lab:[facility], [address] [place] [address] Notes/Report: Glucose, Whole Blood 98 60-115 mg/dL METER # : [id number] Glucose, Whole Blood Reviewed date:10/05/2023 09:41:35 AM Interpretation:Normal Performing Lab:[facility], [address] [place] [address] Notes/Report: Glucose, Whole Blood 107 60-115 mg/dL METER # : [id number] Complete Blood Count no Diff Reviewed date:10/05/2023 09:45:35 AM Interpretation:Abnormal Performing Lab:[facility], [address] [place] [address] Notes/Report: White Blood Count 6.3 4.8-10.8 X10*3/uL [...] Panel Reviewed date:10/05/2023 09:45:35 AM Interpretation:Abnormal Performing Lab:[address] [address] Notes/Report: Sodium 137 135-145 mmol/L Potassium 4.6 [...] Estimated Glomerular Filt Rate 23 NOTE: For -Swedish individuals, multiply the result by 1.210. Chronic Kidney Disease: Estimated GFR < 60 mL/min/1.73m2 Severe Kidney Disease: Estimated GFR < 15 mL/min/1.73m2 Glucose Random 88 60-115 mg/dL Calcium 9.2 8.4-10.2 mg/dL Urine Culture Reviewed date:10/05/2023 09:45:35 AM Interpretation:Abnormal Performing Lab:[address] [address] Notes/Report: Urine Culture Report Result Urine Culture > 100,000 cfu/ml Urine Culture Mixed bacterial ray a characteristic of Urine Culture urogenital contamination. Glucose, Whole Blood Reviewed date:10/05/2023 09:53:46 AM Interpretation:Abnormal Performing Lab:[address], [place] [address] Notes/Report: Glucose, Whole Blood 120 60-115 mg/dL METER # : [id number] Glucose, Whole Blood Reviewed date:10/05/2023 05:55:06 PM Interpretation:Normal Performing Lab:[facility], [address] [place] [address] Notes/Report: Glucose, Whole Blood 108 60-115 mg/dL METER # : [id number] Glucose, Whole Blood Reviewed date:10/06/2023 04:30:11 PM Interpretation:Normal Performing Lab:[facility], [address] [place] [address] Notes/Report: Glucose, Whole Blood 77 60-115 mg/dL METER # : [id number] Glucose, Whole Blood Reviewed date:10/06/2023 04:30:11 PM Interpretation:Normal Performing Lab:[facility], [address] [place] [address] Notes/Report: Glucose, Whole Blood 97 60-115 mg/dL METER # : [id number] Complete Blood Count no Diff Reviewed date:10/06/2023 04:30:11 PM Interpretation:Abnormal Performing Lab:[facility], [address] [place] [address] Notes/Report: White Blood Count 5.0 4.8-10.8 X10*3/uL [...] g Reviewed date:10/06/2023 04:30:11 PM Interpretation:Abnormal Performing Lab:[facility], [address] [place] [address] Notes/Report: Sodium 139 135-145 mmol/L Potassium 4.1 [...] Estimated Glomerular Filt Rate 36 NOTE: For -Swedish individuals, multiply the result by 1.210. Chronic Kidney Disease: Estimated GFR < 60 mL/min/1.73m2 Severe Kidney Disease: Estimated GFR < 15 mL/min/1.73m2 Glucose Fasting 79 60-99 mg/dL Calcium 8.2 8.4-10.2 mg/dL Type and Screen Reviewed date:10/06/2023 04:30:11 PM Interpretation:Negative Performing Lab:[facility], [address] [place] [address] Notes/Report: Blood Type OP Antibody Screen NEGATIVE Glucose, Whole Blood Reviewed date:10/06/2023 04:30:11 PM Interpretation:Normal Performing Lab:[facility], [address] [place] [address] Notes/Report: Glucose, Whole Blood 96 60-115 mg/dL METER # : [id number] Blood Culture (Second) Reviewed date:10/06/2023 04:30:11 PM Interpretation:Positive Performing Lab:[address] [address] Notes/Report: Blood Culture (Second) Results of Blood [...] DR VILLANUEVA on 10/04/23 at 2132 by [facility] Blood Culture (Second) Results of Blood [...] confirmed by DR VILLANUEVA on 10/04/232132 by [facility]. Blood Culture (Second) Results of Blood [...] (Second) Gram stain review ed by a Assistant Boiler Operator Results of Blood Culture gram stain sent [...] C3 Reviewed date:10/06/2023 04:30:11 PM Interpretation:Normal Performing Lab:[address] [address] Notes/Report: Complement C3 147 83-193 mg/dL THIS TEST WAS PERFORMED AT: [facility] [address] [place] [address] MIGUEL STERN MD Complement C4 Reviewed date:10/06/2023 04:30:11 PM Interpretation:Normal Performing Lab:[address] [address] Notes/Report: Complement C4 20 15-57 mg/dL THIS TEST WAS PERFORMED AT: [facility] [address] [place] [address] MIGUEL STERN MD Glucose, Whole Blood Reviewed date:10/06/2023 04:30:11 PM Interpretation:Abnormal Performing Lab:[facility], [address] [place] [address] Notes/Report: Glucose, Whole Blood 167 60-115 mg/dL METER # : [id number] Glucose, Whole Blood Reviewed date:10/06/2023 09:53:01 PM Interpretation:Abnormal Performing Lab:[address] [address] Notes/Report: Glucose, Whole Blood 150 60-115 mg/dL METER # : [id number] Vancomycin Random Reviewed date:10/06/2023 09:53:46 PM Interpretation:Subtherapeutic Performing Lab:[facility], [address] [place] [address] Notes/Report: Vancomycin Random 13.1 15-20 mcg/mL Glucose, Whole Blood Reviewed date:10/07/2023 09:06:02 AM Interpretation:Abnormal Performing Lab:[facility], [address] [place] [address] Notes/Report: Glucose, Whole Blood 123 60-115 mg/dL METER # : [id number] Complete Blood Count no Diff Reviewed date:10/07/2023 09:06:02 AM Interpretation:Abnormal Performing Lab:[facility], [address] [place] [address] Notes/Report: White Blood Count 14.6 4.8-10.8 X10*3/uL [...] g Reviewed date:10/07/2023 09:06:02 AM Interpretation:Abnormal Performing Lab:[facility], [address] [place] [address] Notes/Report: Sodium 137 135-145 mmol/L Potassium 4.7 [...] Estimated Glomerular Filt Rate 35 NOTE: For -Swedish individuals, multiply the result by 1.210. Chronic Kidney Disease: Estimated GFR < 60 mL/min/1.73m2 Severe Kidney Disease: Estimated GFR < 15 mL/min/1.73m2 Glucose Fasting 111 60-99 mg/dL A fasting glucose from 100-125 mg/dl is considered impaired (pre-diabetes). Calcium 8.4 8.4-10.2 mg/dL Glucose, Whole Blood Reviewed date:10/07/2023 12:18:24 PM Interpretation:Abnormal Performing Lab:[facility], [address] [place] [address] Notes/Report: Glucose, Whole Blood 119 60-115 mg/dL METER # : [id number] Glucose, Whole Blood Reviewed date:10/07/2023 04:23:31 PM Interpretation:Normal Performing Lab:[facility], [address] [place] [address] Notes/Report: Glucose, Whole Blood 115 60-115 mg/dL METER # : [id number] Glucose, Whole Blood Reviewed date:10/08/2023 10:02:02 AM Interpretation:Abnormal Performing Lab:[facility], [address] [place] [address] Notes/Report: Glucose, Whole Blood 154 60-115 mg/dL METER # : [id number] Basic Metabolic Panel Fastin g Reviewed date:10/08/2023 10:02:02 AM Interpretation:Abnormal Performing Lab:[facility], [address] [place] [address] Notes/Report: PT with nurse. Will come back [...] Estimated Glomerular Filt Rate 33 NOTE: For -Swedish individuals, multiply the result by 1.210. Chronic Kidney Disease: Estimated GFR < 60 mL/min/1.73m2 Severe Kidney Disease: Estimated GFR < 15 mL/min/1.73m2 Glucose Fasting 102 60-99 mg/dL A fasting glucose from 100-125 mg/dl is considered impaired (pre-diabetes). Calcium 8.3 8.4-10.2 mg/dL Magnesium Reviewed date:10/08/2023 10:02:02 AM Interpretation:Normal Performing Lab:[facility], [address] [place] [address] Notes/Report: PT with nurse. Will come back @ 06:03 caronm Magnesium 1.7 1.6-2.6 mg/dL Complete Blood Count no Diff Reviewed date:10/08/2023 10:02:02 AM Interpretation:Abnormal Performing Lab:[facility], [address] [place] [address] Notes/Report: PT with nurse. Will come back [...] Blood Reviewed date:10/08/2023 10:02:02 AM Interpretation:Normal Performing Lab:[facility], [address] [place] [address] Notes/Report: Glucose, Whole Blood 95 60-115 mg/dL METER # : [id number] Glucose, Whole Blood Reviewed date:10/09/2023 09:27:19 AM Interpretation:Abnormal Performing Lab:[facility], [address] [place] [address] Notes/Report: Glucose, Whole Blood 142 60-115 mg/dL METER # : [id number] Glucose, Whole Blood Reviewed date:10/09/2023 09:27:19 AM Interpretation:Abnormal Performing Lab:[facility], [address] [place] [address] Notes/Report: Glucose, Whole Blood 136 60-115 mg/dL METER # : [id number] Glucose, Whole Blood Reviewed date:10/09/2023 09:27:19 AM Interpretation:Abnormal Performing Lab:[facility], [address] [place] [address] Notes/Report: Glucose, Whole Blood 154 60-115 mg/dL METER # : [id number] Blood Culture (First) Reviewed date:10/09/2023 09:27:19 AM Interpretation:Negative Performing Lab:[facility], [address] [place] [address] Notes/Report: Blood Culture (First) No growth after 5 days. Glucose, Whole Blood Reviewed date:10/09/2023 09:27:19 AM Interpretation:Abnormal Performing Lab:[facility], [address] [place] [address] Notes/Report: Glucose, Whole Blood 119 60-115 mg/dL METER # : [id number] Complete Blood Count no Diff Reviewed date:10/09/2023 09:27:19 AM Interpretation:Abnormal Performing Lab:[facility], [address] [place] [address] Notes/Report: White Blood Count 13.5 4.8-10.8 X10*3/uL [...] g Reviewed date:10/09/2023 09:27:19 AM Interpretation:Abnormal Performing Lab:[facility], [address] [place] [address] Notes/Report: Sodium 134 135-145 mmol/L Potassium 3.6 [...] Estimated Glomerular Filt Rate 38 NOTE: For -Swedish individuals, multiply the result by 1.210. Chronic Kidney Disease: Estimated GFR < 60 mL/min/1.73m2 Severe Kidney Disease: Estimated GFR < 15 mL/min/1.73m2 Glucose Fasting 126 60-99 mg/dL A fasting glucose of 126 mg/dl or greater on more than one occasion is considered diagnostic of diabetes. Calcium 8.1 8.4-10.2 mg/dL Glucose, Whole Blood Reviewed date:10/09/2023 06:04:03 PM Interpretation:Abnormal Performing Lab:[facility], [address] [place] [address] Notes/Report: Glucose, Whole Blood 151 60-115 mg/dL METER # : [id number] Glucose, Whole Blood Reviewed date:10/09/2023 06:03:42 PM Interpretation:Abnormal Performing Lab:[facility], [address] [place] [address] Notes/Report: Glucose, Whole Blood 151 60-115 mg/dL METER # : [id number] Glucose, Whole Blood Reviewed date:10/10/2023 10:54:27 AM Interpretation:Abnormal Performing Lab:[facility], [address] [place] [address] Notes/Report: Glucose, Whole Blood 156 60-115 mg/dL METER # : [id number] Glucose, Whole Blood Reviewed date:10/10/2023 10:54:27 AM Interpretation:Abnormal Performing Lab:[facility], [address] [place] [address] Notes/Report: Glucose, Whole Blood 152 60-115 mg/dL METER # : [id number] Glucose, Whole Blood Reviewed date:10/10/2023 12:24:10 PM Interpretation:Abnormal Performing Lab:[facility], [address] [place] [address] Notes/Report: Glucose, Whole Blood 170 60-115 mg/dL METER # : [id number] Glucose, Whole Blood Reviewed date:10/10/2023 07:37:21 PM Interpretation:Abnormal Performing Lab:[facility], [address] [place] [address] Notes/Report: Glucose, Whole Blood 146 60-115 mg/dL METER # : [id number] Glucose, Whole Blood Reviewed date:10/10/2023 09:13:04 PM Interpretation:Abnormal Performing Lab:[facility], [address] [place] [address] Notes/Report: Glucose, Whole Blood 180 60-115 mg/dL METER # : [id number] Glucose, Whole Blood Reviewed date:10/11/2023 09:07:30 AM Interpretation:Normal Performing Lab:[facility], [address] [place] [address] Notes/Report: Glucose, Whole Blood 104 60-115 mg/dL METER # : [id number] Glucose, Whole Blood Reviewed date:10/11/2023 11:43:46 AM Interpretation:Abnormal Performing Lab:[facility], [address] [place] [address] Notes/Report: Glucose, Whole Blood 206 60-115 mg/dL METER # : [id number] Pathology Reviewed date:10/12/2023 10:47:27 AM Interpretation:Benign Performing Lab:[facility], [address] [place] [address] Notes/Report: Immunofixation Pnl, Serum Reviewed date:10/13/2023 10:11:48 PM Interpretation:Abnormal Performing Lab:[facility], [address] [place] [address] Notes/Report: IgG 7367 924-2883 mg/dL IgA 415 70-320 mg/dL IgM 98 50-300 mg/dL THIS TEST WAS PERFORMED AT: [facility] [address] [place] [address] MIGUEL STERN MD Immunofixation Interpretation SEE NOTE No monoclonal protei ns detected. Anti Glomerular Basement Mem b Reviewed date:10/13/2023 10:11:17 PM Interpretation:Negative Performing Lab:[facility], [address] [place] [address] Notes/Report: Anti Glomerular Basement Memb <1.0 Value Interpretation ----- <1.0 No Antibody Detected > or = 1.0 Antibody Detected THIS TEST WAS PERFORMED AT: [facility] [address] [place] [address] MIGUEL STERN MD ANCA Vasculitides Reviewed date:10/13/2023 10:10:44 PM Interpretation:Negative Performing Lab:[address] [address] Notes/Report: Myeloperoxidase Antibody <1.0 Value Interpretation ----- [...] = 1.0 Antibody Detected Autoantibodies to proteinase-3 (FL-3) are accepted as characteristic for granulomatosis with polyangiitis (GPA, Shirley's), and are detectable in 95% of the histologically proven cases. The cytoplasmic IFA pattern, (c-ANCA), is based largely on autoantibody to FL-3 which serves as the primary antigen. These autoantibodies are present in active disease. THIS TEST WAS PERFORMED AT: [facility] [address] [place] [address] MIGUEL STERN MD Complete Blood Count Auto Di ff Reviewed date:12/09/2023 02:19:18 PM Interpretation:Abnormal Performing Lab:[facility], [address] [place] [address] Notes/Report: White Blood Count 10.0 4.8-10.8 X10*3/uL [...] A1c Reviewed date:12/09/2023 02:19:02 PM Interpretation:Normal Performing Lab:[facility], [address] [place] [address] Notes/Report: Hemoglobin A1c % 5.4 <6.0 % [...] average glucose, using the formula of the [id number]-Hixyjmm Average Glucose study (ADAG), Diabetes Care, Vol.31,#8, Sep. 2007 Comprehensive [place]. Panel Fa Reviewed date:12/09/2023 03:47:51 PM Interpretation:Abnormal Performing Lab:[facility], [address] [place] [address] Notes/Report: Sodium 137 135-145 mmol/L Potassium 4.1 3.3-5.1 mmol/L Chloride 106 96-108 mmol/L Carbon Dioxide 19 22-29 mmol/L Anion Gap 16 12-20 Blood Urea Nitrogen 16 9-16 mg/dL Creatinine 1.16 0.5-1.4 mg/dL Estimated Glomerular Filt Rate 45 NOTE: For -Swedish individuals, multiply the result by 1.210. Chronic [...] PROFILE Reviewed date:12/09/2023 03:47:51 PM Interpretation:Abnormal Performing Lab:[address] [address] Notes/Report: Iron 25 30-160 mcg/dL Total Iron Binding Capacity 191 228-428 mcg/dL Percent Iron Saturation 13 15-50 % Unsaturated Iron Binding 166 Ferritin Reviewed date:12/09/2023 03:47:51 PM Interpretation:Normal Performing Lab:[facility], [address] [place] [address] Notes/Report: Ferritin 79 10-250 ng/mL Lipid Panel Reviewed date:12/09/2023 03:47:51 PM Interpretation:Normal Performing Lab:[address] [address] Notes/Report: Triglycerides 88 <150 mg/dL Desirable Triglyceride: [...] Total Reviewed date:12/09/2023 03:47:51 PM Interpretation:Abnormal Performing Lab:[address] [address] Notes/Report: Vitamin D 25-OH Total 23.4 >30 [...] Hormone Reviewed date:12/09/2023 03:47:51 PM Interpretation:Normal Performing Lab:[facility], [address] [place] [id number] Notes/Report: Thyroid Stimulating Hormone 2.91 0.32-4.0 uIU/mL Note: A sustained TSH level above 2.5 uIU/mL may warrant further investigation. TSH 3rd Generation ([facility]) XR chest 2V Reviewed date:04/24/2023 06:36:25 PM Interpretation:Normal Performing Lab: Notes/Report: [address] [address] XRay Report Signed Patient: Xi Garrison MR#: [id number] 92 : 1945 Acct:[id number] Age/Sex: 78 / F ADM Date: 04/24/23 Loc: .ED Attending Dr: Ordering Physician: Silvia Iyer NP Date of Service: 04/24/23 Procedure(s): XR chest 2V Accession Number(s): [id number] cc: Preston Wang DO; Silvia Iyer NP [...] in OV> 04/24/23 1610 DD/ 1547 TD/TT: Cigar Maker: CT chest w con Reviewed date:04/25/2023 01:09:24 PM Interpretation:Abnormal Performing Lab: Notes/Report: [address] [address] [address] Scan Report Signed Patient: Xi Garrison MR#: [id number] 92 : 1945 Acct:[id number] Age/Sex: 78 / F ADM Date: 04/24/23 Loc: HO.ED Attending Dr: Ordering Physician: Kwasi Jett Date of Service: 04/24/23 Procedure(s): CT chest w IV con Accession Number(s): [id number] cc: Kwasi Jett; Preston Wang DO EXAMINATION: [...] iterative reconstruction technique DLP: 408 mGy-cm FINDINGS: NUT PACKER: No consolidation or edema. LUNGS: No abnormality [...] MD in OV> 04/24/232217 DD/ 33 TD/TT: Cigar Maker: JENY CT abdomen pelvis w con Reviewed date:04/25/2023 01:40:17 PM Interpretation:Abnormal Performing Lab: Notes/Report: [place] [address] [address] Scan Report Signed Patient: Xi Garrison MR#: [id number] [birth year] : 1945 Acct:[id number] Age/Sex: 78 / F ADM Date: 04/24/23 Loc: .ED Attending Dr: Ordering Physician: Kwasi Jett Date of Service: 04/24/23 Procedure(s): CT abdomen pelvis w IV con Accession Number(s): [id number] cc: Kwasi Jett; Preston Wang DO EXAMINATION: [...] MD in OV> 04/24/232228 DD/ 33 TD/TT: Cigar Maker: JENY SHAVER guidance in OR Reviewed date:04/27/2023 05:19:45 PM Interpretation:Abnormal Performing Lab: Notes/Report: [place] [address] Fluoroscopy Report Signed Patient: Xi Garrison MR#: [id number] [birth year] : 1945 Acct:[id number] Age/Sex: 78 / F ADM Date: 04/25/23 Loc: [facility] 350-[address]: Clint Webb MD Ordering Physician: Jose Reis MD Date of Service: 04/25/23 Procedure(s): FL guidance in OR Accession Number(s): [id number] cc: Jose Reis MD; Preston Wang DO [...] in OV> 04/27/23 1642 DD/ 29 TD/TT: Cigar Maker: CHHAYA fistula/abscess/sinus tra ct Reviewed date:04/28/2023 04:07:35 PM Interpretation:Abnormal Performing Lab: Notes/Report: [address] [address] Fluoroscopy Report Signed Patient: Xi Garrison MR#: [id number] [birth year] : 1945 Acct:[id number] Age/Sex: 78 / F ADM Date: 04/25/23 Loc: .S3 350-[address]: Clint Webb MD Ordering Physician: Gilbert Heath Date of Service: 04/27/23 Procedure(s): FL fistula/abscess/sinus tract Accession Number(s): [id number] cc: Preston Wang DO; Gilbert Heath EXAMINATION: FL SINUS TRACT INJECTION CLINICAL INFORMATION: 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 Patient underwent subsequent for percutaneous drainage. Using continues to have drainage from the old drainage catheter site. COMPARISON: CT scan 04/24/2023 TECHNIQUE: 50 mL of Omnipaque 300 was injected through a 6 Cameroonian dilator through the open right flank wound. [...] in OV> 04/28/23 1123 DD/ 1423 TD/TT: Cigar Maker: XR toe LT min 2V Reviewed date:08/14/2023 11:39:48 AM Interpretation:Abnormal Performing Lab: Notes/Report: [address] [address] XRay Report Signed Patient: Xi Garrison MR#: [id number] [birth year] : 1945 Acct:[id number] Age/Sex: 78 / F ADM Date: 08/13/23 Loc: HO.ED Attending Dr: Ordering Physician: Ayesha Roberson Date of Service: 08/13/23 Procedure(s): XR toe LT min 2V Accession Number(s): [id number] cc: Preston Wang DO; Ayesha Roberson EXAMINATION: [...] MD in OV> 08/13/232030 DD/ 31 TD/TT: Cigar Maker: SS MR foot LT wo con Reviewed date:08/24/2023 11:48:47 AM Interpretation:Abnormal Performing Lab: Notes/Report: [address] [address] Magnetic Resonance Report Signed Patient: Xi Garrison MR#: [id number] [birth year] : 1945 Acct:[id number] Age/Sex: 78 / F ADM Date: 08/19/23 Loc: HO.MRI Attending Dr: Preston Wang DO Ordering Physician: Preston Wang DO Date of Service: 08/19/23 Procedure(s): MR foot LT wo con Accession Number(s): [id number] cc: Preston Wang DO EXAMINATION: MR FOOT [...] in OV> 08/24/23 1136 DD/ 1125 TD/TT: Cigar Maker: CT abdomen pelvis wo con Reviewed date:10/04/2023 01:24:30 PM Interpretation:Abnormal Performing Lab: Notes/Report: [address] [address] [address] Scan Report Signed Patient: Xi Garrison MR#: [id number] [birth year] : 1945 Acct:[id number] Age/Sex: 78 / F ADM Date: 10/03/23 Loc: HO.ED Attending Dr: Ordering Physician: Tiffany Sanches CNP Date of Service: 10/03/23 Procedure(s): CT abdomen pelvis wo IV con Accession Number(s): [id number] cc: Tiffany Sanches CNP; Preston Wang DO [...] OV> 10/04/23 0144 DD/ 08 TD/TT: 10/03/232318 Cigar Maker: MEGHAN US renal BI Reviewed date:10/05/2023 12:44:32 PM Interpretation:Abnormal Performing Lab: Notes/Report: [address] [address] Ultrasound Report Signed Patient: Xi Garrison MR#: [id number] 92 : 1945 Acct:[id number] Age/Sex: 78 / F ADM Date: 10/04/23 Loc: .S3 350-[address]: Clint Webb MD Ordering Physician: Clint Webb MD Date of Service: 10/04/23 Procedure(s): US renal BI Accession Number(s): [id number] cc: Preston Wang DO; Clint Webb MD [...] 10/05/23 0540 DD/ 1540 TD/TT: 10/04/23 1555 Cigar Maker: EF REASON FOR REFERRAL Reason UTI Diagnosis 1 Cystitis, unspecifie d without hematuria (N30.90) Referral Organization Presotn Kelly, FACP Referring Provider First Name Preston [...] unspecified (N93.9) Active confirmed Abnormal uterine bleeding ([id number] 00) Problem Unspecified fracture of left toe(s), initial encounter for closed fracture (S92.912A) Active confirmed Closed fracture of phalanx of foot (52956681) Problem Essential hypertension (I10) Active confirmed 74693311 Problem Acquired hypothyroidism (E03.9) Active confirmed 160811178 Problem Morbid obesity due to excess calories (E66.01) Active confirmed 134722403 Problem Eczema, unspecified type (L30.9) Active confirmed 36839197 Problem Sciatica, right (M54.31) Active confirmed 18492288 Problem Chronic right-sided low back pain without sciatica (M54.5) Active confirmed 217975753 Problem Type 2 diabetes mellitus without complication, without long-term current use of insulin (E11.9) Active confirmed 111992242 Problem Sciatica of left side (M54.32) Active confirmed 24391265 Problem Severe single current episode of major depressive disorder, 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) Active confirmed 40121037 Problem Right-sided back pain, unspecified back location, unspecified chronicity (M54.9) Active confirmed 179741315 Problem 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) Active confirmed 688876916 Problem Pneumonia of both lungs due to infectious organism, unspecified part of lung (J18.9) Active confirmed 911120357 Problem Gastritis without bleeding, unspecified chronicity, unspecified gastritis type (K29.70) Active confirmed 7160167 Problem Diverticulitis (K57.92) Active confirmed 574617813 Problem Vaginal burning (N94.9) Active confirmed 102605411 Problem 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 9 Preston Wang DO, [address] [id number] 06/27/2023 Preston Wang Vaginal burning N94. 9 Preston Wang DO, [address] [id number] 07/05/2023 Preston Wang DO, [address] [id number] 07/12/2023 Preston Wang DO, [address] [id number] 07/19/2023 Preston Wang Staghorn calculus N2 0.0 and Vaginal burning N94.9 Preston Wang DO, [address] [id number] 07/20/2023 Preston Wang DO, [address] [id number] 07/25/2023 Preston Wang DO, [address] [id number] 08/15/2023 Preston Wang Toe osteomyelitis M8 6.9 Preston Wang DO, [address] [id number] 08/16/2023 Preston Wang Toe osteomyelitis M8 6.9 Preston Wang DO, [address] [id number] 08/22/2023 Preston Wang DO, [address] [id number] 08/24/2023 Preston Wang Toe osteomyelitis M8 6.9 Preston Wang DO, [address] [id number] 11/21/2023 Preston Wang Type 2 diabetes mellitus without complication, without long-term current use of insulin E11.9 Preston Wang DO, [address] [id number] 11/23/2023 Preston Wang Type 2 diabetes mellitus without complication, without long-term current use of insulin E11.9 Preston Wang DO, [address] [id number] 05/20/2023 Preston Bryanman Essential hypertensi on I10 ; Acquired hypothyroidism E03.9 ; Type 2 diabetes mellitus without complication, without long-term current use of insulin E11.9 ; Staghorn calculus N20.0 ; Vaginal burning N94.9 and Eczema, unspecified type L30.9 Preston Wang DO, [facility] [address] [place], [place] [id number] 07/22/2023 Preston Bryanman Preston Blankenship Felipe KUMAR, [address] [id number] 07/29/2023 Preston Wang Vaginal burning N94. 9 ; Staghorn calculus N20.0 ; Essential hypertension I10 ; Acquired hypothyroidism E03.9 and Type 2 diabetes mellitus without complication, without long-term current use of insulin E11.9 Preston Krzysztof Felipe KUMRA, [address] [id number] 11/11/2023 Preston Bryanman Diverticulitis K57.9 2 ; Essential hypertension I10 ; Acquired hypothyroidism E03.9 ; Staghorn calculus N20.0 and Type 2 diabetes mellitus without complication, without long-term current use of insulin E11.9 Preston Krzysztof Felipe KUMAR, [address] [id number] 12/16/2023 Preston Wang Diverticulitis K57.9 2 ; [...] Date MEDICARE [address] KANDACE WAGNER [phone] [id number] Xi Garrison Self - patient is the [...]
--- OUTSIDE RECORDS SUMMARY | 2024-03-02 14:20 | XMS_ITS | Clinical Summary ---
Author Organization Unknown Care Team Providers Care Technical Cable Jointer Name Role Phone PITA , LIBERTAD Unavailable Unavailable ZEE RN, ABIEL Unavailable Unavailable ANABELLA RN, SHAYY Unavailable Unavailable Payers Payer Name Policy Type Policy Number Effective Date Expira tion Date MEDIC[place] - [place] - [place] [id number] [facility] [id number] Problems Condition Name Condition Details Condition Category Status Onset Date Resolution Date Last Treatment Date Treating Clinician Comments DISRUPTION OF EXTERNAL OPERATION (SURGICAL) WOUND, NEC, SUBS Active 10-10 00:00: 00 INFECTION FOLLOWING A PROCEDURE, OTHER SURGICAL SITE, SUBS Active 10-10 00:00: 00 CHRONIC OBSTRUCTIVE PULMONARY DISEASE, UNSPECIFIED [...] MIXED HYPERLIPIDEM IA Active 02-07 00:00: 00 DIRECTOR EXPERIMENTAL MEDICINE (CURRENT) USE OF ORAL HYPOGLYCEMIC DRUGS Active 02-07 00:00: 00 CARE HOME (CURRENT) USE OF OPIATE ANALGESIC Active 02-07 00:00: 00 ENCNTR FOR SURGICAL AFTCR FOLLOWING SURGERY ON THE DGSTV SYS Active 02-28 00:00: 00 Allergies, Adverse Reactions, Alerts Allergy [...] 10 mg tablet 2023-02 00:00: 00 Yes [id number] 1 tablet DAILY 1 tablet DAILY (route: oral) Med Classific ation: Cardiovas cular Therapy Agents B-complex with vitamin C 400 mcg-500 mg tablet 2023-02 00:00: 00 Yes [id number] 1 tablet DAILY 1 tablet DAILY (route: oral) Med Classific ation: Electroly te Balance-N utritiona l Products clindamycin HCl 300 mg capsule 10-27 00:00: 00 11-10 23:59 :00 No [id number] 1 capsule EVERY 6 HOURS 1 capsule EVERY 6 HOURS (route: oral) Med Classific ation: Anti-Infe ctive Agents furosemide 40 mg tablet 2023-02 00:00: 00 Yes [id number] 1 tablet DAILY 1 tablet DAILY (route: oral) Med Classific ation: Cardiovas cular Therapy Agents levothyroxi ne 112 mcg tablet 2023-02 00:00: 00 Yes [id number] 1 tablet DAILY 1 tablet DAILY (route: oral) Med Classific ation: Endocrine metformin 500 mg tablet 2023-02 00:00: 00 Yes [id number] 1 tablet DAILY 1 tablet DAILY (route: oral) Med Classific ation: Endocrine Probiotic Acidophilus 250 million cell capsule 2023-02 00:00: 00 Yes [id number] 1 capsule DAILY 1 capsule DAILY (route: oral) Med Classific ation: Gastroint estinal Therapy Agents tramadol 50 mg tablet 2023-02 0 00:00: 00 Yes [id number] 1 tablet 3 TIMES DAILY 1 tablet 3 TIMES DAILY (route: oral) Med Classific ation: Analgesic , Anti-infl ammatory or Antipyret ic Vitamin D3 25 mcg (1,000 unit) capsule 2023-02 0 00:00: 00 Yes [id number] 2 capsule DAILY 2 capsule DAILY (route: oral) Med Classific ation: Electroly te Balance-N utritiona l Products Immunizations Ordered Immunization Name Filled Immunization Name Date Status Comments Refusal Reason COVID-19, COVID-19 2020-11-07 00:00:00 Vital Signs Vital Name Observation Time Observation Value Commen ts Temperature 2024-02-29 13:55:00.000 97 [degF] Temperature 2024-02-13 14:10:00.000 97 [degF] Temperature 2024-02-07 21:50:00.000 97 [degF] Temperature 2024-02-02 18:13:00.000 98.2 [degF] Temperature 2024-01-31 12:36:00.000 97 [degF] Temperature 2024-01-27 15:26:00.000 97 [degF] Temperature 2024-01-23 13:00:00.000 97.4 [degF] Temperature 2024-01-19 12:47:00.000 97.1 [degF] Temperature 2024-01-17 10:53:00.000 97.6 [degF] Temperature 2024-01-13 12:20:00.000 97.7 [degF] Temperature 2024-01-11 19:38:00.000 97 [degF] BMI (%) 2024-02-29 13:55:00.000 34 kg/m2 Height 2024-02-29 13:55:00.000 64 [in_us] Pulse 2024-02-29 13:55:00.000 74 /min Pulse 2024-02-13 14:10:00.000 74 /min Pulse 2024-02-07 21:50:00.000 70 /min Pulse 2024-02-02 18:13:00.000 68 /min Pulse 2024-01-31 12:36:00.000 72 /min Pulse 2024-01-27 15:26:00.000 70 /min Pulse 2024-01-23 13:00:00.000 74 /min Pulse 2024-01-19 12:47:00.000 84 /min Pulse 2024-01-17 10:53:00.000 70 /min Pulse 2024-01-13 12:20:00.000 71 /min Pulse 2024-01-11 19:38:00.000 74 /min O2 Saturation (%) 2024-02-29 13:55:00.000 97 % O2 Saturation (%) 2024-02-13 14:10:00.000 98 % [...] Saturation (%) 2024-01-11 19:38:00.000 97 % Respirations 2024-02-29 13:55:00.000 18 /min Respirations 2024-02-13 14:10:00.000 19 /min Respirations 2024-02-07 21:50:00.000 18 /min Respirations 2024-02-02 18:13:00.000 18 /min Respirations 2024-01-31 12:36:00.000 18 /min Respirations 2024-01-27 15:26:00.000 18 /min Respirations 2024-01-23 13:00:00.000 18 /min Respirations 2024-01-19 12:47:00.000 18 /min Respirations 2024-01-17 10:53:00.000 18 /min Respirations 2024-01-13 12:20:00.000 18 /min Respirations 2024-01-11 19:38:00.000 18 /min Weight (lbs) 2024-02-29 13:55:00.000 200 [lb_av] Systolic Blood Pressure 2024-02-29 13:55:00.000 132 mm [Hg] Systolic Blood Pressure 2024-02-13 14:10:00.000 128 mm [...] 19:38:00.000 134 mm [Hg] Diastolic Blood Pressure 2024-02-29 13:55:00.000 64 mm [Hg] Diastolic Blood Pressure 2024-02-13 14:10:00.000 [...] MAINTAIN SITUATIONAL AWARENESS AND WILL NOTIFY CLINICAL NITRATE OPERATOR AND PHYSICIAN/PROVIDER WITH ANY CHANGE IN CONDITION. [code = SKILLED NURSE TO PERFORM ENVIRONMENTAL SAFETY RISK ASSESSMENT AND FALL RISK ASSESSMENT AND PROVIDE INSTRUCTION TO IMPLEMENT ENVIRONMENTAL SAFETY AND FALL PREVENTION STRATEGIES THROUGHOUT THE CERTIFICATION PERIOD. SKILLED NURSE WILL MAINTAIN SITUATIONAL AWARENESS AND WILL NOTIFY CLINICAL NITRATE OPERATOR AND PHYSICIAN/PROVIDER WITH ANY CHANGE IN CONDITION.] [...] ON MEASURES TO PREVENT PRESSURE ULCERS.] Goal Patient Goal - I WANT TO HEAL AND GET BETTER FAST. Goal 2024-01-06 Patient Goal - I WANT TO HEAL AND GET BETTER FAST Goal 2024-02-29 Patient Goal - I WANT TO HEAL [...] Notes <paragraph>[Visit Date: 2024 by SHAYY KYLE RN]:</paragraph><paragraph>CLINICAL SUMMARY [place] THE PATIENT IS RECEIVING HOMECARE DUE TO: AFTERCARE FOLLOWING SURGICAL PROCEDURE RECENT HOSPITALIZATION/INPATIENT ADMISSION RELATED TO: SCHEDULED SURGERY FOR REVERSAL OF OSTOMY PATIENT LIVING SITUATION/CAREGIVER STATUS: STAYING WITH FRIEND IN A SINGLE FAMILY CLUTTERED HOME RECENT FALLS: N PMH: TYPE 2 DIABETES, COPD, ANEMIA, ANXIETY, FIBROMYALGIA, FOC: AFTERCARE FOLLOWING SURGICAL PROCEDURE SUMMARIZE SKILLED NEED: DISEASE MANAGEMENT AND EDUCATION, PROPER USE OF DMES, MED/PAIN EDUC/TEACHING ADDITIONAL DISCIPLINES NEEDED: SN SERNA COMMUNICATION: UPDATED ON PLAN OF CARE UPCOMING APPOINTMENTS: FRI SURGEON ANTICIPATED DISCHARGE PLAN: DC UNDER THE CARE OF MD WHEN ALL GOALS ARE MET PAYOR SOURCE: MEDICARE PT [place] TODAY AFTER SCHEDULED SURGERY FOR OSTOMY REVERSAL. PT UNDERWENT REVERSAL UNABLE TO PERFORM LAPAROSCOPICALLY. POSTOPERATIVELY PATIENT DID WELL SHE WAS PASSING FLATUS AND WAS ABLE TO HAVE BOWEL MOVEMENTS AND HAS BEEN MOVING HER SOFT STOOL BOWELS SINCE DISCHARGE FROM HOSPITAL. PATIENT'S ABDOMINAL O2 SURGICAL INCISIONS CLOSED WITH JUVENCIO INCISION IS WELL APPROXIMATED NO SIGNS OF INFECTION NO REDNESS NO DRAINAGE. PATIENT'S ABDOMEN IS SOFT NONTENDER POSITIVE BOWEL SOUNDS THROUGHOUT. LUNGS ARE CLEAR AND DIMINISHED THROUGHOUT SHE DENIES ANY PROBLEMS WITH URINATION. HER APPETITE IS FAIR REVIEWED PROTEIN INTAKE TO PROMOTE WOUND HEALING. ENCOURAGED PATIENT TO GET UP AND AMBULATE THROUGHOUT THE DAY ALSO REVIEWED DEEP BREATHING EXERCISES PATIENT DOES HAVE INCENTIVE SPIROMETER DEMONSTRATED ABILITY. PATIENT DECLINED PHYSICAL THERAPY SHE WILL CONTINUE WITH [employer] SERVICES TWICE A WEEK X3 AND THEN WEEKLY SHE IS ACTUALLY DUE FOR RECERT NEXT WEEK AND SHE WILL SEE THE SURGEON THIS COMING TUESDAY PROBABLE STAPLE REMOVAL AT THAT TIME. PATIENT STAYING WITH HER BOYFRIEND AND A VERY CLUTTERED HOME HE IS ASSISTING HER WITH ADLS MEAL PREP ETC. REVIEWED PORTS OF KEEPING CLEAN HOME SAFE PATHWAYS. PCP OFFICE CALLED AWARE PATIENT'S RESUMPTION OF CARE TODAY IN AGREEMENT WITH PLAN OF CARE.</paragraph> Encounters Start Date/Time End Date/Time Encounter Type Admission Type Attending [facility] Department Encounter ID Discharge Date Discharge Status Discharge Condition Discharge Reason Percent Goals Met 2023-11-09 00:00:00 2024-03-07 00:00:00 Outpatient RECERTIFIC ATION SHAYY KYLE [facility] [id number] 63.64
--- OUTSIDE RECORDS SUMMARY | 2024-03-02 14:20 | XMS_ITS | Clinical Summary ---
Author Organization Unknown Care Team Providers Care Family Specialist Name Role Phone PITA , LIBERTAD Unavailable Unavailable ZEE RN, ABIEL Unavailable Unavailable ANABELLA RN, SHAYY Unavailable Unavailable Payers Payer Name Policy Type Policy Number Effective Date Expira tion Date MEDICARE - [place] - [place] [id number] [facility] [id number] Problems Condition Name Condition Details Condition Category [...] MIXED HYPERLIPIDEM IA Active 02-07 00:00: 00 ACCOUNT SUPPORT REP (CURRENT) USE OF ORAL HYPOGLYCEMIC DRUGS Active 02-07 00:00: 00 HALF-WAY (CURRENT) USE OF OPIATE ANALGESIC Active 02-07 [...] 10 mg tablet 2023-02 00:00: 00 Yes [id number] 1 tablet DAILY 1 tablet DAILY (route: oral) Med Classific ation: Cardiovas cular Therapy Agents B-complex with vitamin C 400 mcg-500 mg tablet 2023-02 00:00: 00 Yes [id number] 1 tablet DAILY 1 tablet DAILY (route: oral) Med Classific ation: Electroly te Balance-N utritiona l Products clindamycin HCl 300 mg capsule 10-27 00:00: 00 11-10 23:59 :00 No [id number] 1 capsule EVERY 6 HOURS 1 capsule EVERY 6 HOURS (route: oral) Med Classific ation: Anti-Infe ctive Agents furosemide 40 mg tablet 2023-02 00:00: 00 Yes [id number] 1 tablet DAILY 1 tablet DAILY (route: oral) Med Classific ation: Cardiovas cular Therapy Agents levothyroxi ne 112 mcg tablet 2023-02 00:00: 00 Yes [id number] 1 tablet DAILY 1 tablet DAILY (route: oral) Med Classific ation: Endocrine metformin 500 mg tablet 2023-02 00:00: 00 Yes [id number] 1 tablet DAILY 1 tablet DAILY (route: oral) Med Classific ation: Endocrine Probiotic Acidophilus 250 million cell capsule 2023-02 00:00: 00 Yes [id number] 1 capsule DAILY 1 capsule DAILY (route: oral) Med Classific ation: Gastroint estinal Therapy Agents tramadol 50 mg tablet 2023-02 0 00:00: 00 Yes [id number] 1 tablet 3 TIMES DAILY 1 tablet 3 TIMES DAILY (route: oral) Med Classific ation: Analgesic , Anti-infl ammatory or Antipyret ic Vitamin D3 25 mcg (1,000 unit) capsule 2023-02 0 00:00: 00 Yes [id number] 2 capsule DAILY 2 capsule DAILY (route: [...] MAINTAIN SITUATIONAL AWARENESS AND WILL NOTIFY CLINICAL CANDLE MAKING SUPERVISOR AND PHYSICIAN/PROVIDER WITH ANY CHANGE IN CONDITION. [code = SKILLED NURSE TO PERFORM ENVIRONMENTAL SAFETY RISK ASSESSMENT AND FALL RISK ASSESSMENT AND PROVIDE INSTRUCTION TO IMPLEMENT ENVIRONMENTAL SAFETY AND FALL PREVENTION STRATEGIES THROUGHOUT THE CERTIFICATION PERIOD. SKILLED NURSE WILL MAINTAIN SITUATIONAL AWARENESS AND WILL NOTIFY CLINICAL CANDLE MAKING SUPERVISOR AND PHYSICIAN/PROVIDER WITH ANY CHANGE IN CONDITION.] [...] CARE WILL BE ESTABLISHED THAT MEETS PATIENT'S RESIDENTIAL NEEDS AND INCLUDES PATIENT GOAL FOR HOME [...] DECLINED PHYSICAL THERAPY SHE WILL CONTINUE WITH RESIDENTIAL SERVICES TWICE A WEEK X3 AND THEN [...] End Date/Time Encounter Type Admission Type Attending [facility] Department Encounter ID Discharge Date Discharge Status Discharge Condition Discharge Reason Percent Goals Met 2023-11-09 00:00:00 2024-03-07 00:00:00 Outpatient RECERTIFIC ATION SHAYY KYLE [facility] [id number] 63.64
== END 2024-03-02 13:44 | disposition home or self-care (01) ==
PROVIDERS: PCP Internal Medicine; Visit Provider Nurse Practitioner Family
DX: R29.898 Other symptoms and signs involving the musculoskeletal system (principal); Z98.890 Other specified postprocedural states

== ENCOUNTER 2024-03-09 10:56 | Outpatient (AMB) | payer MEDICARE, SELFPAY ==
--- NOTE | 2024-03-09 11:26 | A.OFFVIS_ITS ---
Vital Signs 03/09/24 11:34 Height 5 ft 4 in Weight 202 lb 13.204 oz BMI 34.8 Respiration 16 Pulse 82 Intake Visit Reasons: wound check (VNA reports open) Intake Note: Patient is seen in office for wound check, post closure of colostomy. 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: No Accompanied by: Family/Other Allergies chlorpheniramine [From TUSSIONEX] Allergy (Severe, Verified 03/09/24 11:35) HALLUCINATIONS ciprofloxacin [From CIPRO] Allergy (Severe, Verified 03/09/24 11:35) ANAPHYLAXIS escitalopram [ESCITALOPRAM] Allergy (Severe, Verified 03/09/24 11:35) DISSOCIATIVE REACTION fluoxetine [FLUOXETINE] Allergy (Severe, Verified 03/09/24 11:35) DISSOCIATIVE REACTION hydrocodone [From TUSSIONEX] Allergy (Severe, Verified 03/09/24 11:35) HALLUCINATIONS ibuprofen [IBUPROFEN] Allergy (Severe, Verified 03/09/24 11:35) THROAT SWELLING Sulfa (Sulfonamide Antibiotics) [SULFA (SULFONAMIDE ANTIBIOTICS)] Allergy (Severe, Verified 03/09/24 11:35) DYSPNEA clarithromycin [From BIAXIN] Allergy (Intermediate, Verified 03/09/24 11:35) ABD.PAIN duloxetine [DULOXETINE] Allergy (Intermediate, Verified 03/09/24 11:35) FACIAL NUMBNESS erythromycin base [ERYTHROMYCIN BASE] Allergy (Intermediate, Verified 03/09/24 11:35) RASH Penicillins [PENICILLINS] Allergy (Intermediate, Verified 03/09/24 11:35) RASH tetracycline [TETRACYCLINE] Allergy (Intermediate, Verified 03/09/24 11:35) DIARRHEA codeine [CODEINE] Allergy (Unknown, Verified 03/09/24 11:35) TINNITIS guaifenesin Allergy (Unknown, Verified 03/09/24 11:35) Unknown levofloxacin [From Levaquin] Allergy (Unknown, Verified 03/09/24 11:35) Unknown pregabalin Allergy (Unknown, Verified 03/09/24 11:35) Unknown Medication List - Last Reconciled 03/09/24 by Marino Jimenez MD acetaminophen 1,000 mg PO Q6H PRN atorvastatin 1 tab PO DAILY chair, wheel (Wheel chair) As directed cholecalciferol (vitamin D3) (Vitamin D3) 50 mcg PO DAILY furosemide 40 mg PO DAILY hydrocodone-acetaminophen 5-325 mg 1 tab PO Q4-6H PRN levothyroxine 224 mcg PO SUWE@0600 levothyroxine 112 mcg PO MOTUTHFRSA@0600 lisinopril 10 mg PO DAILY metformin ER 1 tab PO DAILY@1700 pyridoxine (vitamin B6) 50 mg PO DAILY tramadol 50 mg PO BID PRN HPI Comments Details: Patient returns for wound check after closure of colostomy. Per the VNA the ostomy incision has opened up to some degree following staple removal. She denies any followed discharge and feels the discharge has actually decreased. VNA will be starting next week, 3 times weekly. She is requesting wound care consultation [facility] Medical History Weakness of both lower extremities Hydroureteronephrosis Wound infection Open wound of back, complicated Cellulitis Frequency of urination Vaginal burning Vaginal itching PMB (postmenopausal bleeding) Cirrhosis of liver Does mobilize using walker PONV (postoperative nausea and vomiting) Left foot drop Fatty liver Fibromyalgia Neuropathy RBBB Cholelithiasis Staghorn calculus Renal calculus, bilateral Renal calyceal dilation determined by ultrasound UTI (urinary tract infection) Diabetes mellitus, type II Ganglion cyst Plantar fasciitis Anxiety OA (osteoarthritis) Obstructive airway disease Hypercholesterolemia Low back pain Sciatica Hypothyroidism HTN (hypertension) Primary osteoarthritis of right knee Retained ureteral stent Renal stones Staghorn calculus Perirectal abscess Surgical History History of colostomy reversal (02/20/24) History of colectomy (~10/06/23) Status post cystoscopy with ureteral stent placement History of lumbar discectomy History of lumpectomy of both breasts History of cystoscopy History of lithotripsy Hx of colonoscopy History of surgery Family History Father Alcohol dependence Mother CHF (congestive heart failure) Cancer of breast Mother No problems noted. Other Alcoholic cirrhosis Substance use disorder Social History Household Members: Significant Other Housing: House Are you a primary manager wound care to a significant other at home: No Do you presently have visiting nurse or other home services: Yes (VNA) 75 years or older and lives alone: No Alcohol intake: never Comment: wheelchair for long distances Patient Tobacco Use Status: Former Tobacco user Tobacco use type: Cigarette Years Smoked: 27 e-Cigarette/Vaping Use: Never Used Second Hand Smoke Exposure: Yes Advance Directives Date on File: 04/06/21 service: No Current occupational status: disabled Cognitive needs: Yes (wheelchair) Hearing needs: No Vision needs: Yes (Glasses) Physical Exam Vital Signs: Last Vital Signs Pulse 82 03/09/24 11:34 Resp 16 03/09/24 11:34 BMI result Body Mass Index 34.8 Const Nutritional Appearance: obese Orientation/consciousness: patient oriented x3 Limitations: wheelchair Resp Effort & Inspection: normal respiratory effort GI Other: Midline incision has 2 small areas of opening, 1 in the inferior aspect in the 2nd in the more superior aspect. The ostomy is opened in the medial portion of the incision. All open areas were packed gently with gauze followed by dry sterile dressings. This included fluff gauze and ABD pads. The patient tolerated this well. Neuro General: patient oriented x3 Extrem General: Yes normal to inspection Assessment & Plan Assessment & Plan (1) Abdominal wound dehiscence: Code(s): T81.321A - Disruption or dehiscence of closure of internal operation (surgical) wound of abdominal wall muscle or fascia, initial encounter Category: Medical Qualifiers: Encounter type: subsequent encounter Qualified Code(s): T81.321D - Disruption or dehiscence of closure of internal operation (surgical) wound of abdominal wall muscle or fascia, subsequent encounter Plan Patient will need daily dressing changes with fluff gauze and ABD pads. She kyleigh l [facility] for further evaluation and management. I have asked her to return in approximately 2 weeks follow-up examination. Orders: Referrals Wound Care Referral T81.321A - Disruption or dehiscence of closure of internal operation (surgical) wound of abdominal wall muscle or fascia, initial encounter Coding Level of Care Code Global (51849) Diagnoses Abdominal wound dehiscence, subsequent encounter T81.321D Encounter type: subsequent encounter
[2024-03-09 11:34] VITALS: PULSE 82; RESP 16; BMI 34.8
--- OUTSIDE RECORDS SUMMARY | 2024-03-09 11:46 | XMS_ITS | Clinical Summary ---
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
== END 2024-03-09 11:49 | disposition home or self-care (01) ==
PROVIDERS: PCP Internal Medicine; Visit Provider Surgery
DX: T81.321D Disruption or dehiscence of closure of internal operation (surgical) wound of abdominal wall muscle or fascia, subsequent encounter (principal)
CPT/HCPCS: 99024

== ENCOUNTER → 2024-03-09 10:56 | Outpatient (BNVA) | payer MEDICARE, SELFPAY | PROVIDERS: PCP Internal Medicine; Visit Provider Surgery | DX: T81.321D Disruption or dehiscence of closure of internal operation (surgical) wound of abdominal wall muscle or fascia, subsequent encounter (principal); X58.XXXD Exposure to other specified factors, subsequent encounter; Z48.815 Encounter for surgical aftercare following surgery on the digestive system; Z98.890 Other specified postprocedural states | CPT/HCPCS: 99212 ==

== ENCOUNTER 2024-03-28 11:39 | Outpatient (AMB) | payer MEDICARE, SELFPAY ==
--- NOTE | 2024-03-28 11:37 | MHC.PC.OV ---
Vital Signs 03/28/24 11:46 Height 5 ft 3 in Weight 197 lb BMI 34.9 Intake Visit Reasons: follow up Intake Note: having stomach issues for the past two days Allergies chlorpheniramine [From TUSSIONEX] Allergy (Severe, Verified 03/28/24 12:02) HALLUCINATIONS ciprofloxacin [From CIPRO] Allergy (Severe, Verified 03/28/24 12:02) ANAPHYLAXIS escitalopram [ESCITALOPRAM] Allergy (Severe, Verified 03/28/24 12:02) DISSOCIATIVE REACTION fluoxetine [FLUOXETINE] Allergy (Severe, Verified 03/28/24 12:02) DISSOCIATIVE REACTION hydrocodone [From TUSSIONEX] Allergy (Severe, Verified 03/28/24 12:02) HALLUCINATIONS ibuprofen [IBUPROFEN] Allergy (Severe, Verified 03/28/24 12:02) THROAT SWELLING Sulfa (Sulfonamide Antibiotics) [SULFA (SULFONAMIDE ANTIBIOTICS)] Allergy (Severe, Verified 03/28/24 12:02) DYSPNEA clarithromycin [From BIAXIN] Allergy (Intermediate, Verified 03/28/24 12:02) ABD.PAIN duloxetine [DULOXETINE] Allergy (Intermediate, Verified 03/28/24 12:02) FACIAL NUMBNESS erythromycin base [ERYTHROMYCIN BASE] Allergy (Intermediate, Verified 03/28/24 12:02) RASH Penicillins [PENICILLINS] Allergy (Intermediate, Verified 03/28/24 12:02) RASH tetracycline [TETRACYCLINE] Allergy (Intermediate, Verified 03/28/24 12:02) DIARRHEA codeine [CODEINE] Allergy (Unknown, Verified 03/28/24 12:02) TINNITIS guaifenesin Allergy (Unknown, Verified 03/28/24 12:02) Unknown levofloxacin [From Levaquin] Allergy (Unknown, Verified 03/28/24 12:02) Unknown pregabalin Allergy (Unknown, Verified 03/28/24 12:02) Unknown Medication List - Last Reconciled 03/28/24 by Margarita Powell PA-C acetaminophen 1,000 mg PO Q6H PRN atorvastatin 1 tab PO DAILY chair, wheel (Wheel chair) As directed cholecalciferol (vitamin D3) (Vitamin D3) 50 mcg PO DAILY furosemide 40 mg PO DAILY hydrocodone-acetaminophen 5-325 mg 1 tab PO Q4-6H PRN levothyroxine 224 mcg PO SUWE@0600 lisinopril 10 mg PO DAILY metformin ER 1 tab PO DAILY@1700 pyridoxine (vitamin B6) 50 mg PO DAILY tramadol 50 mg PO BID PRN Tobacco use date assessed: 02/15/24 Dental Screening Dental Screen Date: 02/15/24 [facility] Medical History Diverticular disease Major depressive disorder Heel spur Chronic low back pain Uterine cancer Hyperthyroidism Weakness of both lower extremities Hydroureteronephrosis Wound infection Open wound of back, complicated Cellulitis Frequency of urination Vaginal burning Vaginal itching PMB (postmenopausal bleeding) Cirrhosis of liver Does mobilize using walker PONV (postoperative nausea and vomiting) Left foot drop Fatty liver Fibromyalgia Neuropathy RBBB Cholelithiasis Staghorn calculus Renal calculus, bilateral Renal calyceal dilation determined by ultrasound UTI (urinary tract infection) Diabetes mellitus, type II Ganglion cyst Plantar fasciitis Anxiety OA (osteoarthritis) Obstructive airway disease Hypercholesterolemia Low back pain Sciatica Hypothyroidism HTN (hypertension) Primary osteoarthritis of right knee Retained ureteral stent Renal stones Staghorn calculus Perirectal abscess Surgical History History of colostomy reversal (02/20/24) History of colectomy (~10/06/23) Status post cystoscopy with ureteral stent placement History of lumbar discectomy History of lumpectomy of both breasts History of cystoscopy History of lithotripsy Hx of colonoscopy History of surgery Family History Father Alcohol dependence Mother CHF (congestive heart failure) Cancer of breast Mother No problems noted. Other Alcoholic cirrhosis Substance use disorder Social History Household Members: Significant Other Housing: House Are you a primary child care assistant to a significant other at home: No Do you presently have visiting nurse or other home services: Yes (VNA) 75 years or older and lives alone: No Alcohol intake: never Comment: wheelchair for long distances Patient Tobacco Use Status: Former Tobacco user Tobacco use type: Cigarette Years Smoked: 27 e-Cigarette/Vaping Use: Never Used Second Hand Smoke Exposure: Yes Advance Directives Date on File: 04/06/21 service: No Current occupational status: disabled Cognitive needs: Yes (wheelchair) Hearing needs: No Vision needs: Yes (Glasses) Questionnaire Thrive Questionnaire Date Thrive assessed: 02/21/24 RAMONE-7 AMB Questionnaire RAMONE-7 Date RAMONE - 7 assessed: 02/15/24 Source: Developed by Drs. Preston Aponte, Jojo Holland, Subhash Richmond and colleagues, with an educational vernon from [employer]. Physical exam (Primary Care) BMI result Body Mass Index 34.9 Tobacco/Smoking Status: Tobacco use Status Tobacco use date assessed 02/15/24 03/28/24 11:37 Patient Tobacco Use Status Former Tobacco user 03/28/24 11:37 Tobacco use type Cigarette 03/28/24 11:37 e-Cigarette/Vaping Use Never Used 03/28/24 11:37 Thrive Assessment: Date of Thrive Assessment Date Thrive assessed 02/21/24 03/28/24 11:37 Telehealth Telehealth Telehealth Platform: Telephone Location of provider rendering services: practice address Location of patient: address on file Patient Identification confirmed using: Name, : Yes Telehealth method: voice only Patient verbally consented to treatment: Yes Patient verbally consented to billing insurance company: Yes Patient informed of any privacy concerns related to visit: Yes Minutes spent on Phone/Video with Pt.: 15 Coding Level of Care Code Tele Est Pt Level 4 (54995) Complex EM visit Add On G2211 Diagnoses Abdominal pain R10.9 Major depressive disorder F32.9 Diabetes mellitus, type II E11.9 Fibromyalgia M79.7 Staghorn calculus N20.0 Obstructive airway disease J44.9 Uterine cancer C55 HTN (hypertension) I10 Hypercholesterolemia E78.00 Hyperthyroidism E05.90 OA (osteoarthritis) M19.90 Chronic low back pain M54.50; G89.29 RBBB I45.10 Assessment & Plan Assessment & Plan (1) Abdominal pain: Code(s): R10.9 - Unspecified abdominal pain Category: Medical Plan: Patient reports generalized abdominal pain. Denies any nausea, vomiting, diarrhea, constipation, black or bloody stools, urinary symptoms, fevers or any other symptoms. Will order outpatient labs for patient for fasting along with a CT scan abdomen pelvis with IV and p.o. contrast as patient was advised to go to the emergency department multiple times and she reports her abdominal pain is not that bad and she does not feel like she needs to go to the emergency department at this time. Will continue to monitor. (2) Major depressive disorder: Code(s): F32.9 - Major depressive disorder, single episode, unspecified Category: Medical Plan: Condition is chronic and stable continue to monitor. (3) Diabetes mellitus, type II: Code(s): E11.9 - Type 2 diabetes mellitus without complications Category: Medical Plan: Patient to continue metformin 500 mg extended release 1 tab daily. Condition is chronic and stable continue to monitor. (4) Fibromyalgia: Code(s): M79.7 - Fibromyalgia Category: Medical Plan: Patient has Tylenol 1000 mg p.o. every 6 hours as needed along with Hycodan 1 tablet every 4-6 hours as needed. Condition is chronic and stable continue to monitor. (5) Staghorn calculus: Comment: 10/28 Proteus mirabilis Levaquin resistant Code(s): N20.0 - Calculus of kidney Category: Medical Plan: Condition is chronic and stable continue to monitor. (6) Obstructive airway disease: Code(s): J44.9 - Chronic obstructive pulmonary disease, unspecified Category: Medical Plan: Condition is chronic and stable continue to monitor. (7) Uterine cancer: Code(s): C55 - Malignant neoplasm of uterus, part unspecified Category: Medical Plan: Condition is chronic and stable continue to monitor. (8) HTN (hypertension): Code(s): I10 - Essential (primary) hypertension Category: Medical Plan: Patient to continue furosemide 40 mg daily, lisinopril 10 mg daily. Condition is chronic and stable continue to monitor. (9) Hypercholesterolemia: Code(s): E78.00 - Pure hypercholesterolemia, unspecified Category: Medical Plan: Patient to continue atorvastatin 10 mg daily. Condition is chronic and stable continue to monitor. (10) Hyperthyroidism: Code(s): E05.90 - Thyrotoxicosis, unspecified without thyrotoxic crisis or storm Category: Medical Plan: Patient to continue levothyroxine 224 mcg. Condition is chronic and stable continue to monitor. (11) OA (osteoarthritis): Code(s): M19.90 - Unspecified osteoarthritis, unspecified site Category: Medical Plan: Patient to continue Tylenol 1000 mg every 6 hours as needed. Condition is chronic and stable will continue to monitor. (12) Chronic low back pain: Code(s): M54.50 - Low back pain, unspecified; G89.29 - Other chronic pain Category: Medical Plan: Patient to continue Tylenol 1000 mg every 6 hours as needed. Condition is chronic and stable will continue to monitor. (13) RBBB: Code(s): I45.10 - Unspecified right bundle-branch block Category: Medical Plan: Condition is chronic and stable will continue to monitor. Plan Plan - Emphasize the need for medical evaluation if abdominal pain worsens or is accompanied by nausea, vomiting, or fever. - Monitor for symptoms of bowel obstruction, given patient?s history. - Patient is advised to seek urgent care if she develops indicators such as vomiting, fever, or failure to pass stool. - Patient is advised to complete fasting blood work to evaluate anemia and renal function and to monitor cholesterol and glucose control. - I also ordered outpatient CT scan abdomen pelvis with IV and p.o. contrast due to her history of bowel obstruction due to patient does not want to go to the emergency department - Encourage contact with Lorelei regarding the status of her wheelchair order. Orders: Orders C Reactive Protein Today Z00.00 - Encounter for general adult medical examination without abnormal findings Complete Blood Count Auto Diff Today Z00.00 - Encounter for general adult medical examination without abnormal findings Lipid Panel Today Z00.00 - Encounter for general adult medical examination without abnormal findings Magnesium Today Z00.00 - Encounter for general adult medical examination without abnormal findings CT abdomen w IV con Today R10.9 - Unspecified abdominal pain Comprehensive [place]. Panel Fast Today Z00.00 - Encounter for general adult medical examination without abnormal findings Hemoglobin A1c Today Z00.00 - Encounter for general adult medical examination without abnormal findings Liver Panel Today Z00.00 - Encounter for general adult medical examination without abnormal findings TSH reflex Free T4 Today Z00.00 - Encounter for general adult medical examination without abnormal findings Vitamin B1 Today Z00.00 - Encounter for general adult medical examination without abnormal findings Vitamin D 25-OH Total Today Z00.00 - Encounter for general adult medical examination without abnormal findings Vitamin B12 and Folate Today Z00.00 - Encounter for general adult medical examination without abnormal findings Patient Instructions: Patient Instructions - Follow up with Lorelei about the status of the wheelchair order. - Monitor abdominal symptoms for worsening pain, vomiting, or fever. - Seek immediate medical care if symptoms suggestive of bowel obstruction occur. - I also ordered outpatient CT scan abdomen pelvis with IV and p.o. contrast due to her history of bowel obstruction due to patient does not want to go to the emergency department - Complete fasting blood work at the nearest available center. - Continue taking prescribed medications as directed. Scribe Plan - Not visible on output: History of Present Illness The patient is a 78-year-old female presenting with upper abdominal pain through telehealth visit. She reports the pain as a bothersome stomach ache that is not severe. The pain is located in the upper abdomen and began recently. She denies vomiting, diarrhea, constipation, fever, nasal congestion, or chest pain. The patient had a significant medical history of a large bowel obstruction for which she received a colostomy reversal in February. She is known to have gallstones, which could potentially relate to her current upper abdominal pain. The patient reports regular bowel movements without diarrhea. She self-reports that the pain does not warrant immediate hospitalization, and a medical evaluation is being considered only if the symptoms worsen. Social History - Lives with her boyfriend. - Currently does not participate in physical therapy despite a referral. - Waiting for a wheelchair from a provider. - Reports adequate support at home and relies on her boyfriend. Review of Systems - Gastrointestinal: Reports upper abdominal pain, denies nausea, vomiting, and diarrhea. - No other systems were reported in the conversation. Plan - Emphasize the need for medical evaluation if abdominal pain worsens or is accompanied by nausea, vomiting, or fever. - Monitor for symptoms of bowel obstruction, given patient?s history. - Patient is advised to seek urgent care if she develops indicators such as vomiting, fever, or failure to pass stool. - Patient is advised to complete fasting blood work to evaluate anemia and renal function and to monitor cholesterol and glucose control. - I also ordered outpatient CT scan abdomen pelvis with IV and p.o. contrast due to her history of bowel obstruction due to patient does not want to go to the emergency department - Encourage contact with Lorelei regarding the status of her wheelchair order. Patient was informed and verbally consented to the use of an ambient scribe for clinic note documentation during this visit. Discussion Notes I discussed with the patient the necessity to monitor her symptoms, especially given her history of a large bowel obstruction and presence of gallstones. The importance of seeking urgent medical assessment for worsening abdominal pain or symptoms suggestive of bowel obstruction, such as vomiting or fever, was emphasized. I recommended obtaining fasting blood tests for anemia, renal function, cholesterol, and diabetes management, and I encouraged following up if symptoms persist or worsen. We discussed that the pain is currently manageable at home but should it intensify or should any alarming symptoms develop, she should seek immediate medical attention. Patient Instructions - Follow up with Lorelei about the status of the wheelchair order. - Monitor abdominal symptoms for worsening pain, vomiting, or fever. - Seek immediate medical care if symptoms suggestive of bowel obstruction occur. - I also ordered outpatient CT scan abdomen pelvis with IV and p.o. contrast due to her history of bowel obstruction due to patient does not want to go to the emergency department - Complete fasting blood work at the nearest available center. - Continue taking prescribed medications as directed.
[2024-03-28 11:46] VITALS: BMI 34.9
--- OUTSIDE RECORDS SUMMARY | 2024-03-28 12:14 | XMS_ITS ---
Author Organization Preston Wang DO, [facility] Address [address] [place], [place] [id number] Care Team Providers Care Flooring Machine Feeder Name Role Phone Preston Wang Primary Care Provider [phone] REASON FOR VISIT 3 month f/u SOCIAL HISTORY Sex Assigned At : Social History Observation Description Sex Assigned At Female Encounters Encounter Location Date Provider Diagnosis Preston Wang DO, FACP [address] [place] [phone] 03/21/2024 Preston Wang PLAN OF TREATMENT No Information
--- OUTSIDE RECORDS SUMMARY | 2024-03-28 12:15 | XMS_ITS ---
Author Organization [facility] Address [address] [place] [address] Care Team Providers Care Stage Manager Name Role Phone Preston Wang MD Primary Care Provider Unavail Lucy Guadalupe Unavailable [phone] REASON FOR VISIT SD cx 06/27 Encounters Encounter Location Date Provider Diagnosis [facility] [address] [place] [address] 06/28/2023 Lucy Castro Plan Of Treatment No Information Progress Notes * Casimiro DOANineDOB: 8 (78 yo F)Acc No.[id number]:06/28/2023 Patient:?MeliKemal blantonXi :1945???Age:78 Y???Sex:Female Address:[address] [place] [address] DUSTIN Segura [address] * true * Date:? Generated for Printi ng/Fagorang/eTransmitting on:?03/28/2024 12:14 PM EST
--- OUTSIDE RECORDS SUMMARY | 2024-03-28 12:15 | XMS_ITS | Clinical Summary ---
Author Organization Unknown Care Team Providers Care Square Cutter Name Role Phone VLAD SERNA, BEAR Unavailable Unavailab ab KOCH RN, ABIEL Unavailable Unavailable JERROD RN, ADMISSION NURSE, MALIKA Unavail able Unavailable ANABELLA RN, SHAYY Unavailable Unavailable Payers Payer Name Policy Type Policy Number Effective Date Expira tion Date MEDICARE - [facility] [place] [id number] [facility] [id number] Problems Condition Name Condition Details Condition Category Status Onset Date Resolution Date Last Treatment Date Treating Clinician Comments ENCNTR FOR SURGICAL AFTCR FOLLOWING SURGERY ON THE DGSTV SYS Active 02-07 00:00: 00 CHRONIC OBSTRUCTIVE PULMONARY [...] CHRONIC KIDNEY DISEASE Active 02-07 00:00: 00 COLOSTOMY STATUS Active 02-07 00:00: 00 HYPOTHYROIDI SM, UNSPECIFIED Active 02-07 00:00: 00 ANXIETY DISORDER, UNSPECIFIED Active 02-07 00:00: 00 MIXED HYPERLIPIDEM IA Active 02-07 00:00: 00 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) USE OF ORAL HYPOGLYCEMIC DRUGS Active 02-07 00:00: 00 SKILLED NURSING (CURRENT) USE OF OPIATE ANALGESIC Active 02-07 [...] 10 mg tablet 2023-02 00:00: 00 Yes [id number] 1 tablet DAILY 1 tablet DAILY (route: oral) Med Classific ation: Cardiovas cular Therapy Agents B-complex with vitamin C 400 mcg-500 mg tablet 2023-02 00:00: 00 Yes [id number] 1 tablet DAILY 1 tablet DAILY (route: oral) Med Classific ation: Electroly te Balance-N utritiona l Products clindamycin HCl 300 mg capsule 20 00:00: 00 11-10 23:59 :00 No [id number] 1 capsule EVERY 6 HOURS 1 capsule EVERY 6 HOURS (route: oral) Med Classific ation: Anti-Infe ctive Agents furosemide 40 mg tablet 2023-02 00:00: 00 Yes [id number] 1 tablet DAILY 1 tablet DAILY (route: oral) Med Classific ation: Cardiovas cular Therapy Agents levothyroxi ne 112 mcg tablet 2023-02 00:00: 00 Yes [id number] 1 tablet DAILY 1 tablet DAILY (route: oral) Med Classific ation: Endocrine metformin 500 mg tablet 2023-02 00:00: 00 Yes [id number] 1 tablet DAILY 1 tablet DAILY (route: oral) Med Classific ation: Endocrine Probiotic Acidophilus 250 million cell capsule 2023-02 00:00: 00 Yes [id number] 1 capsule DAILY 1 capsule DAILY (route: oral) Med Classific ation: Gastroint estinal Therapy Agents tramadol 50 mg tablet 2023-02 00:00: 00 Yes [id number] 1 tablet 3 TIMES DAILY 1 tablet 3 TIMES DAILY (route: oral) Med Classific ation: Analgesic , Anti-infl ammatory or Antipyret ic Vitamin D3 25 mcg (1,000 unit) capsule 2023-02 00:00: 00 Yes [id number] 2 capsule DAILY 2 capsule DAILY (route: oral) Med Classific ation: Electroly te Balance-N utritiona l Products Immunizations Ordered Immunization Name Filled Immunization Name Date Status Comments Refusal Reason COVID-19, COVID-19 2020-11-07 00:00:00 Vital Signs Vital Name Observation Time Observation Value Commen ts Temperature 2024-03-27 17:08:00.000 98 [degF] Temperature 2024-03-22 12:04:00.000 97.7 [degF] Temperature 2024-03-15 11:14:00.000 98 [degF] Temperature 2024-03-13 13:49:00.000 98 [degF] Pulse 2024-03-27 17:08:00.000 70 /min Pulse 2024-03-22 12:04:00.000 72 /min Pulse 2024-03-15 11:14:00.000 67 /min Pulse 2024-03-13 13:49:00.000 70 /min O2 Saturation (%) 2024-03-27 17:08:00.000 97 % O2 Saturation (%) 2024-03-22 12:04:00.000 98 % O2 Saturation (%) 2024-03-15 11:14:00.000 98 % O2 Saturation (%) 2024-03-13 13:49:00.000 97 % Respirations 2024-03-27 17:08:00.000 18 /min Respirations 2024-03-22 12:04:00.000 18 /min Respirations 2024-03-15 11:14:00.000 18 /min Respirations 2024-03-13 13:49:00.000 18 /min Systolic Blood Pressure 2024-03-27 17:08:00.000 126 mm [Hg] Systolic Blood Pressure 2024-03-22 12:04:00.000 110 mm [Hg] Systolic Blood Pressure 2024-03-15 11:14:00.000 110 mm [Hg] Systolic Blood Pressure 2024-03-13 13:49:00.000 126 mm [Hg] Diastolic Blood Pressure 2024-03-27 17:08:00.000 64 mm [Hg] Diastolic Blood Pressure 2024-03-22 12:04:00.000 64 mm [Hg] Diastolic Blood Pressure 2024-03-15 11:14:00.000 62 mm [Hg] Diastolic Blood Pressure 2024-03-13 13:49:00.000 76 mm [Hg] Plan of Treatment Planned Activity Planned Date Details Comments Future Scheduled Test SKILLED NU RSE TO [...] EXACERBATION OF DISEASE PROCESS] Future Scheduled Test NEED FOR S KILLED TEACHING AND INTERVENTION RELATED TO SURGICAL WOUND R MID ABDOMINAL AND LEFT LOWER QUADRANT. SKILLED NURSE OR TRAINED PATIENT/CAREGIVER TO PERFORM WOUND CARE, CLEANSE/IRRIGATE WITH VASHE SOLUTION, PAT DRY WITH GAUZE, APPLY CALCIUM ALGINATE TO WOUND BED, APPLY WITH DCD, COVER WITH ABD PAD SECURE WITH MEDIPORE TAPE L LOWER QUADRANT DAMP GAUZE WITH VASHE SOLUTION, COVER WITH GAUZE, COVER WITH ABD PAD SECURE WITH MEDIPORE. WOUND CARE TO BE PERFORMED DAILY AND PRN IF SOILED OR DISLODGED. 1-2 PRN SKILLED NURSE VISITS FOR WOUND CARE DUE TO COMPLICATIONS. SKILLED NURSE TO OBTAIN WOUND CULTURE PRN S/S OF INFECTION. WOUND CARE WILL BE PERFORMED BY TRAINED CAREGIVER ON DAYS WHEN SKILLED NURSE IS NOT SCHEDULED FOR A VISIT. DISCONTINUE WOUND CARE/SUPPLIES ONCE WOUND IS HEALED. [code = NEED FOR SKILLED TEACHING AND INTERVENTION RELATED TO SURGICAL WOUND R MID ABDOMINAL AND LEFT LOWER QUADRANT. SKILLED NURSE OR TRAINED PATIENT/CAREGIVER TO PERFORM WOUND CARE, CLEANSE/IRRIGATE WITH VASHE SOLUTION, PAT DRY WITH GAUZE, APPLY CALCIUM ALGINATE TO WOUND BED, APPLY WITH DCD, COVER WITH ABD PAD SECURE WITH MEDIPORE TAPE L LOWER QUADRANT DAMP GAUZE WITH VASHE SOLUTION, COVER WITH GAUZE, COVER WITH ABD PAD SECURE WITH MEDIPORE. WOUND CARE TO BE PERFORMED DAILY AND PRN IF SOILED OR DISLODGED. 1-2 [...] Scheduled Test SKILLED NU RSE TO PROVIDE TEACHING ON SIGNS AND SYMPTOMS AND MANAGEMENT OF HYPERTENSION. [code = SKILLED NURSE TO PROVIDE TEACHING ON SIGNS AND SYMPTOMS AND MANAGEMENT OF HYPERTENSION.] Future Scheduled Test SKILLED NU RSE TO [...] SYMPTOMS HYPO/HYPERGLYCEMIA TO REPORT.] Future Scheduled Test VIRTUAL SIT FREQUENCY: 3-4 PRN VIRTUAL VISITS FOR HIGH RISK ASSESSMENTS AND/OR CHANGE IN STATUS MAY BE PERFORMED UTILIZING TELECOMMUNICATIONS SYSTEM TO OPTIMIZE SKILLED SERVICES FURNISHED ON THE PLAN OF CARE. SKILLED NURSE TO ESTABLISH SUPPORT MEASURES TO MINIMIZE RISK OF REHOSPITALIZATION, AND INSTRUCT PATIENT/CAREGIVER ON METHODS TO REDUCE AVOIDABLE HOSPITALIZATION. [code = VIRTUAL VISIT FREQUENCY: 3-4 PRN VIRTUAL VISITS FOR HIGH RISK ASSESSMENTS AND/OR CHANGE IN STATUS MAY BE PERFORMED UTILIZING TELECOMMUNICATIONS SYSTEM TO OPTIMIZE SKILLED SERVICES FURNISHED ON THE PLAN OF CARE. SKILLED NURSE TO ESTABLISH SUPPORT MEASURES TO MINIMIZE RISK OF REHOSPITALIZATION, AND INSTRUCT PATIENT/CAREGIVER ON METHODS TO REDUCE AVOIDABLE HOSPITALIZATION.] Future Scheduled Test PATIENT DE DIOS S [...] MAINTAIN SITUATIONAL AWARENESS AND WILL NOTIFY CLINICAL TRANSPORT OPERATIONS INSPECTOR AND PHYSICIAN/PROVIDER WITH ANY CHANGE IN CONDITION. [code = SKILLED NURSE TO PERFORM ENVIRONMENTAL SAFETY RISK ASSESSMENT AND FALL RISK ASSESSMENT AND PROVIDE INSTRUCTION TO IMPLEMENT ENVIRONMENTAL SAFETY AND FALL PREVENTION STRATEGIES THROUGHOUT THE CERTIFICATION PERIOD. SKILLED NURSE WILL MAINTAIN SITUATIONAL AWARENESS AND WILL NOTIFY CLINICAL TRANSPORT OPERATIONS INSPECTOR AND PHYSICIAN/PROVIDER WITH ANY CHANGE IN CONDITION.] [...] TO HEAL AND GET BETTER FAST. Goal 2024-03-07 Patient Goal - I WANT TO HEAL AND GET BETTER FAST. Goal 2024-01-06 Patient Goal - I WANT TO HEAL AND GET BETTER FAST Goal 2024-02-29 Patient Goal - I WANT TO HEAL AND GET BETTER FAST Goal Provider Goal - A PLAN OF CARE WILL BE ESTABLISHED THAT MEETS PATIENT'S LONG-TERM NEEDS AND INCLUDES PATIENT GOAL FOR HOME [...] VERBALIZE SIGNS AND SYMPTOMS OF EXACERBATION OF ENDOCRINE DIAGNOSIS TO REPORT TO NURSE/PHYSICIAN THROUGHOUT THE CERTIFICATION PERIOD. Goal Provider Goal - PATIENT/CAREGIVER WILL VERBALIZE SIGNS AND SYMPTOMS OF HYPERTENSION AND WILL BE ABLE TO DEMONSTRATE ABILITY TO MANAGE EXACERBATION BY END OF THE EPISODE. Goal Provider Goal - PATIENT/CAREGIVER WILL [...] PERIOD. Goal Provider Goal - PATIENT/CAREGIVER WILL UTILIZE VIRTUAL VISITS TO ACHIEVE GOALS OUTLINED ON THE PLAN OF CARE. PATIENT WILL HAVE SUPPORT MEASURES ESTABLISHED TO PREVENT HOSPITALIZATION AND PATIENT/CAREGIVER WILL VERBALIZE/DEMONSTRATE METHODS TO REDUCE AVOIDABLE HOSPITALIZATION THROUGHOUT THE CERTIFICATION PERIOD. Goal Provider Goal - PATIENT WILL HAVE [...] ABD SNT POS BS DENIES PROBLEMS WITH BOWEL OR BLADDER NORMAL STOOLS REPORTED. REVIEWED DIET. WOUND CARE PROVIDED PT SYED WELL. SEES PCP THIS WEEK AND SURGEON. MEDICATION CHANGES: NONE HANDS ON CARE: ASSESSMENT TEACHING WOUND CARE TEACHING PROVIDED: HIGH PROTEIN TO PROMOTE WOUND HEALING PATIENT/CAREGIVER TEACH BACK:VERBALIZED UNDERSTANDING NEXT APPOINTMENT: PCP TOMORROW HVAC SALES ENGINEER FRI NEW ORDERS: N INSTRUCTED PATIENT AND CAREGIVER TO CALL [facility] [facility] WITH ANY QUESTIONS OR CHANGES IN CONDITION</paragraph> <paragraph>[Visit Date: 2024 by MALIKA ELDER RN, ADMISSION NURSE]:</paragraph><paragraph>SNV 03/22/24 1. ABNORMAL FINDINGS/SIGNIFICANT CHANGES: VITAL SIGNS IN SYSTEM WITHIN NORMAL LIMITS 2. CARE COORDINATION DETAILS: SUPPLIES ORDERED 3. SKILLED PROCEDURE PERFORMED THIS VISIT: PATIENT WOUND CARE COMPLETED PATIENT TOLERATED WELL NO SIGNS AND SYMPTOMS OF INFECTION LARGE AMOUNT OF DRAINAGE PRESENT 4. NEXT PHYSICIAN/PROVIDER APPT: WOUND CLINIC 03/30/24, PCP 03/28/24 5. PLAN/FOLLOW-UP NEEDED FOR NEXT VISIT: PHYSICAL ASSESSMENT WOUND CARE VITAL SIGNS DIABETES EDUCATION INFECTION CONTROL EDUCATION ADDRESS ABOVE APPROPRIATE IN NARRATIVE BELOW; PATIENT ALERT ORIENTATED FIANCE AND ANOTHER NURSE PRESENT DURING THE VISIT PATIENT DENIES ANY PAIN SHE DOES REPORT DISCOMFORT WHEN SN IS DOING WOUND CARE PATIENT'S VITAL SIGNS WITHIN NORMAL LIMITS NO SIGNS OF INFECTION HOWEVER WOUND DRAINING LARGE AMOUNT BUT SMALLER IN SIZE WHICH IS POSITIVE SIGNS OF IMPROVING AND HEALING PATIENT EDUCATED ON HIGH PROTEIN FOODS FOR WOUND HEALING PATIENT EDUCATED ON DIABETES MANAGEMENT. PATIENT EDUCATED ON NEXT SN VISIT PATIENT EDUCATED ON CALLING [employer] [facility] FOR ANY CONCERNS OR CHANGE IN CONDITION PATIENT VERBALIZED UNDERSTANDING</paragraph> Encounters Start Date/Time End Date/Time Encounter Type Admission Type Attending Clinicians Care Facility Care Department Encounter ID Discharge Date Discharge Status Discharge Condition Discharge Reason Percent Goals Met 2023-11-09 00:00:00 2024-05-06 00:00:00 Outpatient RECERTIFIC ATION SHAYY KYLE [facility] [id number] 37.93
--- OUTSIDE RECORDS SUMMARY | 2024-03-28 12:16 | XMS_ITS ---
Author Organization Preston Wang DO, [facility] Address [address] [place], [place] [id number] Care Team Providers Care Online Health And Fitness Coach Name Role Phone Preston Wang Primary Care Provider [phone] REASON FOR VISIT pre-op SOCIAL HISTORY Sex Assigned At : Social History Observation Description Sex Assigned At Female Encounters Encounter Location Date Provider Diagnosis Preston Wang DO, FACP [address] [place] [id number] 02/14/2024 Preston Wang PLAN OF TREATMENT No Information
--- OUTSIDE RECORDS SUMMARY | 2024-03-28 12:16 | XMS_ITS | Clinical Summary ---
Author Organization [facility] ity Address [address] [place] [address] Care Team Providers Care Command Center Analyst Name Role Phone Preston Wang DO Primary Care Provider [phone] Social History Tobacco Use Types Packs/Day Years Used Date Smoking Tobacco: Never Assessed Comments Unknown Sex and Gender Information Value Date Recorded Sex Assigned at Not on file Legal Sex Female 7:44 PM EST Gender Identity Not on file Sexual Orientation Not on file Plan of Treatment Health Maintenance Due Date Last Done Comments DTaP,Tdap,and Td Vaccines (1 - Tdap) 1966 Pneumococcal Vaccine: 50+ Ye ars (1 of 1 - PCV) 1997 Zoster Vaccines (1 of 2) 1997 RSV Immunization Patients 60 + Years Old (1 - 1-dose 75+ series) 2022 COVID-19 Vaccine (2023-2 5 season) 2023 Influenza Vaccine (#1) 2023 [...] patient's age to complete this topic Meningococcal B Vacine Aged Out No lo nger eligible based on patient's age to complete this topic RSV Immunization Patients Un will 20 months Aged Out No longer eligible b ased on patient's age to complete this topic Varicella Vaccines Aged Out No longer eligible based on patient's age to complete this topic Advance Directives Documents on File Type Date Recorded Patient Delivery Nurse Expl anation Health Care Decision (hx) 10/13/2017 AD ELLE DIRECTIVE Care Teams Command Center Analyst Relationship Specialty Start Date End Date Preston Wang DO [address] [place] [phone] PCP - General Internal Medicine 09/05/17
--- OUTSIDE RECORDS SUMMARY | 2024-03-28 12:16 | XMS_ITS ---
Author Organization Preston Wang DO, FACP Address [address] [place] [id number] Care Team Providers Care Animal Surgeon Name Role Phone Preston Wang Primary Care [...] Location Date Provider Diagnosis Preston Wang DO, [address] [id number] 12/16/2023 Preston Wang Diverticulitis K57.9 2 ; [...]
--- OUTSIDE RECORDS SUMMARY | 2024-03-28 12:16 | XMS_ITS ---
Author Organization [facility] Address [address] [place] [address] Care Team Providers Care Carcass Washer Name Role Phone Felipe SERNA, Preston Primary Care Provider Unavail able Lucy Castro Unavailable [phone] Encounters Encounter Location Date Provider Diagnosis [facility] [address] [place] [address] 06/28/2023 Lucy Castro Plan Of Treatment No Information Progress Notes * Casimiro DOANineDOB: 8 (78 yo F)Acc No.[id number]:06/28/2023 Progress Note Patient:?Xi DOAN Provider:?Lucy Castro DPM :1945???Age:78 Y???Sex:Female D ate:06/28/2023 Address:[address] [place] [address] Rod Chi DUSTIN-[address] Pcp:Preston Wang MD Subjective: * Chief Complaints: * ??? * Medical History:? Objective: * Vitals:? Assessment: Plan: * Treatment: * Images: * The named appointment provid er may or may not be the originator of this progress note, and it is not deemed complete until electronically signed by the appointment provider. Sign off status: Pending * Provider:?Luyc Castro DPM Date:? Generated for Printi ng/Fagorang/eTransmitting on:?03/28/2024 12:15 PM EST
--- OUTSIDE RECORDS SUMMARY | 2024-03-28 12:16 | XMS_ITS | Clinical Summary ---
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 (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) USE OF ORAL HYPOGLYCEMIC DRUGS Active 02-07 00:00: 00 SENIOR LIVING (CURRENT) USE OF OPIATE ANALGESIC Active 02-07 [...] 10 mg tablet 2023-02 00:00: 00 Yes [id number] 1 tablet DAILY 1 tablet DAILY (route: oral) Med Classific ation: Cardiovas cular Therapy Agents B-complex with vitamin C 400 mcg-500 mg tablet 2023-02 00:00: 00 Yes [id number] 1 tablet DAILY 1 tablet DAILY (route: oral) Med Classific ation: Electroly te Balance-N utritiona l Products clindamycin HCl 300 mg capsule 20 00:00: 00 11-10 23:59 :00 No [id number] 1 capsule EVERY 6 HOURS 1 capsule EVERY 6 HOURS (route: oral) Med Classific ation: Anti-Infe ctive Agents furosemide 40 mg tablet 2023-02 00:00: 00 Yes [id number] 1 tablet DAILY 1 tablet DAILY (route: oral) Med Classific ation: Cardiovas cular Therapy Agents levothyroxi ne 112 mcg tablet 2023-02 00:00: 00 Yes [id number] 1 tablet DAILY 1 tablet DAILY (route: oral) Med Classific ation: Endocrine metformin 500 mg tablet 2023-02 00:00: 00 Yes [id number] 1 tablet DAILY 1 tablet DAILY (route: oral) Med Classific ation: Endocrine Probiotic Acidophilus 250 million cell capsule 2023-02 00:00: 00 Yes [id number] 1 capsule DAILY 1 capsule DAILY (route: oral) Med Classific ation: Gastroint estinal Therapy Agents tramadol 50 mg tablet 2023-02 00:00: 00 Yes [id number] 1 tablet 3 TIMES DAILY 1 tablet 3 TIMES DAILY (route: oral) Med Classific ation: Analgesic , Anti-infl ammatory or Antipyret ic Vitamin D3 25 mcg (1,000 unit) capsule 2023-02 00:00: 00 Yes [id number] 2 capsule DAILY 2 capsule DAILY (route: [...] MAINTAIN SITUATIONAL AWARENESS AND WILL NOTIFY CLINICAL COLLECTIONS ATTORNEY AND PHYSICIAN/PROVIDER WITH ANY CHANGE IN CONDITION. [code = SKILLED NURSE TO PERFORM ENVIRONMENTAL SAFETY RISK ASSESSMENT AND FALL RISK ASSESSMENT AND PROVIDE INSTRUCTION TO IMPLEMENT ENVIRONMENTAL SAFETY AND FALL PREVENTION STRATEGIES THROUGHOUT THE CERTIFICATION PERIOD. SKILLED NURSE WILL MAINTAIN SITUATIONAL AWARENESS AND WILL NOTIFY CLINICAL COLLECTIONS ATTORNEY AND PHYSICIAN/PROVIDER WITH ANY CHANGE IN CONDITION.] [...] TEACH BACK:VERBALIZED UNDERSTANDING NEXT APPOINTMENT: PCP TOMORROW SOLE FILLER FRI NEW ORDERS: N INSTRUCTED PATIENT AND [...] NEXT SN VISIT PATIENT EDUCATED ON CALLING [employer] FIRST FOR ANY CONCERNS OR CHANGE IN CONDITION PATIENT VERBALIZED UNDERSTANDING</paragraph> Encounters Start Date/Time End Date/Time Encounter Type Admission Type Attending Clinicians Care Facility Care Department Encounter ID Discharge Date Discharge Status Discharge Condition Discharge Reason Percent Goals Met 2023-11-09 00:00:00 2024-05-06 00:00:00 Outpatient RECERTIFIC ATION SHAYY KYLE [facility] [id number] 37.93
--- OUTSIDE RECORDS SUMMARY | 2024-03-28 12:16 | XMS_ITS ---
Author Organization [facility] Address [address] [place] [address] Care Team Providers Care Teradata Developer Name Role Phone Felipe SERNA, Preston Primary Care Provider Unavail able Lucy Castro Unavailable [phone] Encounters Encounter Location Date Provider Diagnosis [facility] [address] [place] [address] 11/26/2022 Lucy Castro Plan Of Treatment No Information Progress Notes * Casimiro DOANineDOB: 8 (78 yo F)Acc No.[id number]:11/26/2022 Progress Note Patient:?Xi DOAN Provider:?Lucy Castro DPM :1945???Age:77 Y???Sex:Female D ate:11/26/2022 Address:[address] [place] [address] [address] Chi DUSTIN-[address] Pcp:Preston Wang MD Subjective: * Chief Complaints: [...] DPM Date:? Generated for Printi ng/Fagorang/eTransmitting on:?03/28/2024 12:16 PM EST
--- OUTSIDE RECORDS SUMMARY | 2024-03-28 12:16 | XMS_ITS | Patient Health Record ---
[facility] Address [address] [facility] [place] [address] Care Team Providers Care Proof Sorter Name Role Phone Preston Wang MD Primary Care Provider Unavail able Lucy Castro Unavailable [phone] Allergies Allergen (clinical drug ingredient) Drug/Non Drug [...] Problem Status W/U Status Risk Notes Problem 031074530 Hammer toe of le ft foot (M20.42) Active confirmed Problem 503347559 Neuropathy (G62.9) Active confirmed Problem [id number] Atherosclerosi s of artery of both lower extremities (I70.203) Active confirmed Encounters Encounter Location Date Provider Diagnosis [facility] [address] [place] [address] 06/28/2023 Lucy Castro Plan Of Treatment Pending Test Test Name Order Date X ray : Foot, left 3V 08/20/2022 X ray : Foot, left 3V 09/10/2022 X ray : Foot, left 3V 10/08/2022 [id number] NAIL, 1-5 12/21/2017 [id number] DYSTROPHIC NAILS ANY # Insurance Providers Payer Name Payer Address Payer Phone Subscriber Number Group Number Insured Name Patient Relationship to Insured Coverage Start Date Coverage End Date Medicare National Govt Svcs Inc [address] [place] [address] [id number] Xi Garrison Self - patient is the insured 3 [employer] Blue Shield [address] [place] [address] [phone] [id number] 1 Xi Garrison Self - patient is [...]
== END 2024-03-28 12:45 | disposition home or self-care (01) ==
LOC: HO.HMCSH 11:39
PROVIDERS: PCP Internal Medicine; Visit Provider Physician Assistant Medical
DX: E11.9 Type 2 diabetes mellitus without complications (principal); J44.9 Chronic obstructive pulmonary disease, unspecified; C55 Malignant neoplasm of uterus, part unspecified; R10.9 Unspecified abdominal pain; F32.9 Major depressive disorder, single episode, unspecified; M79.7 Fibromyalgia; N20.0 Calculus of kidney; I10 Essential (primary) hypertension; E78.00 Pure hypercholesterolemia, unspecified; E05.90 Thyrotoxicosis, unspecified without thyrotoxic crisis or storm

== ENCOUNTER → 2024-03-28 11:39 | Outpatient (BNVA) | payer MEDICARE, SELFPAY | PROVIDERS: PCP Internal Medicine; Visit Provider Physician Assistant Medical ==

== ENCOUNTER 2024-03-29 08:52 | Inpatient (IN) | payer MEDICARE, SELFPAY ==
[2024-03-29] VITALS (8 sets, daily range): BP systolic 77–122; BP diastolic 31–57; PULSE 62–83; RESP 14–20; TEMP 36.5–37.2; O2SAT 98–100; BMI 31.7
--- NOTE | ~2024-03-29 | CT_ITS ---
CLINICAL HISTORY: right flank wound CT abdomen and pelvis without contrast Comparison: CT of the abdomen and pelvis from 10/03/2023 Findings: No consolidation of the imaged lung bases. Mild ground-glass may reflect mild pneumonitis in the partially imaged right hilar region. Fluid and gas may reflect phlegmonous change or small abscess in the right retroperitoneal region inferior to right 12th rib, extending from the lateral margin of the right iliopsoas musculature, extending inferiorly to the superior margin of the right iliac wing. This fluid extends laterally to the right lateral dorsal abdominal wall measuring 1.9 x 3.2 x 3.8 cm. Associated gas may be postprocedural, post sampling, or related to gas forming organisms. Additional superficial gas extends superiorly-laterally to right skin surface where skin thickening of the likely cellulitis is present. Redemonstration of multiple lisnzcnc-dm-cemkgo nephrolithiasis of the right kidney measuring up to 1.7 cm with right-sided ureteral stent in place. Nonobstructing nephrolithiasis of the left kidney measure up to 0.8 cm. No left-sided hydronephrosis. Moderate wall thickening of the urinary bladder is nonspecific. Liver surface nodularity of cirrhosis, in this noncontrast study. Multifocal cholelithiasis measuring up to 2 cm diameter. The adrenal glands are normal. Spleen is mildly enlarged. Mild volume loss of the pancreas noted. Mild additional free fluid in the abdomen pelvis may be infectious/inflammatory with likely mild sigmoid colitis given wall thickening of the sigmoid colon adjacent stranding. Left anterior abdominal wall fluid and likely phlegmonous change measures 1.3 x 4.3 cm with associated gas. No small bowel obstruction. The appendix is within normal limits. Calcified and noncalcified plaque including the aorta and its branches. Small mesenteric periaortic, and left iliac lymph nodes are likely reactive. Mild deformities of the pelvis appear old chronic. Degenerative changes of the hips, SI joints, and spine; with multifocal facet arthropathy. Vacuum disc phenomena is also likely multifocal. Lucency at L2 likely due to hemangioma. Mild retrolisthesis at L1-L2 with mild spinal stenosis by CT. IMPRESSION: 1. Right dorsal lateral fluid collection extends laterally from right iliopsoas musculature measuring up to 3.8 cm concerning for abscess in this noncontrast study. 2. Left ventral phlegmonous change and/or drained fluid collection measures up to 4.3 cm. 3. Additional fluid includes free fluid in the pelvis concerning for sigmoid colitis. 4. Cholelithiasis. 5. Right-sided nephrolithiasis with right-sided ureteral stent in place. This document has been electronically signed by: Manjeet Coley MD on 03/29/2024 19:30:34
[2024-03-29 10:17] LABS: MANUAL DIFF FLAG NO
[2024-03-29 10:24] LABS: Basophils Percent Auto 0.2 % (0-2); Hematocrit 31.4 % (37.0-47.0); Hemoglobin 10.2 g/dl (12.0-16.0); Imm Gran Abs Auto 0.42 X10*3/uL (0.00-0.03); Imm Gran Pct Auto 2.9 % (0.0-0.4); Lymphocytes Absolute Auto 0.9 X10*3/uL (1.2-4.9); Lymphocytes Percent Auto 5.9 % (20-40); Mean Corpuscular HGB Conc 32.5 g/dl (31.0-35.0); Mean Corpuscular Hemoglobin 25.6 pg (27.0-33.0); Mean Corpuscular Volume 78.9 fL (80.0-98.0); Mean Platelet Volume 9.2 fL (9.4-12.3); Monocytes Absolute Auto 0.7 X10*3/uL (0.1-1.2); Monocytes Percent Auto 4.9 % (2-11); Neutrophils Absolute Auto 12.3 x10*3/uL (2.0-8.3); Neutrophils Percent Auto 86.1 % (45-73); Platelet Count 385 X10*3/uL (160-400); Red Blood Count 3.98 X10*6/uL (4.20-5.50); Red Cell Distribution Width 15.9 % (11.0-16.0); White Blood Count 14.3 X10*3/uL (4.8-10.8)
[2024-03-29 10:39] LABS: Alanine Aminotransferase 27 U/L (0-31); Alkaline Phosphatase 58 U/L (39-117); Anion Gap 17 (12-20); Aspartate Amino Transferase 49 U/L (5-31); Bilirubin Total 0.6 mg/dL (0.0-1.0); Blood Urea Nitrogen 27 mg/dL (9-16); Calcium 8.9 mg/dL (8.4-10.2); Carbon Dioxide 17 mmol/L (22-29); Chloride 99 mmol/L (96-108); Creatinine Clr Calc Pharmacy 24.6; Estimated Glomerular Filt Rate 25; Glucose Random 175 mg/dL (60-115); Potassium 3.5 mmol/L (3.3-5.1); Sodium 129 mmol/L (135-145); Total Protein 7.8 g/dL (6.5-8.0)
--- OUTSIDE RECORDS SUMMARY | 2024-03-29 11:20 | XMS_ITS ---
Author Organization [facility] Address [address] [place] [address] Care Team Providers Care Customer Experience Analyst Name Role Phone Preston Wang MD Primary Care Provider Unavail Lucy Guadalupe Unavailable [phone] REASON FOR VISIT SD cx 06/27 Encounters Encounter Location Date Provider Diagnosis [facility] [address] [place] [address] 06/28/2023 Lucy Castro Plan Of Treatment No Information Progress Notes * Casimiro DOANineDOB: 8 (78 yo F)Acc No.[id number]:06/28/2023 Patient:?MleiKemal blantonXi :1945???Age:78 Y???Sex:Female Address:[address] [place] [address] [place] Segura [address] * true * Date:? Generated for Printi bre/Ольгаg/eTransmitting on:?2024 11:20 AM EST
--- OUTSIDE RECORDS SUMMARY | 2024-03-29 11:20 | XMS_ITS ---
Author Organization Preston Wang DO, [facility] Address [address] [place], [place] [id number] Care Team Providers Care Construction Safety Manager Name Role Phone Preston Wang Primary Care Provider REASON FOR VISIT 3 month f/u SOCIAL HISTORY Sex Assigned At : Social History Observation Description Sex Assigned At Female Encounters Encounter Location Date Provider Diagnosis Preston Wang DO, FACP [address] [place] [phone] 03/21/2024 Preston Wang PLAN OF TREATMENT No Information
--- OUTSIDE RECORDS SUMMARY | 2024-03-29 11:21 | XMS_ITS ---
Author Organization Preston Wang DO, FACP Address [address] [place] [phone] Care Team Providers Care Associate Professor Of Radiology Name Role Phone Preston Wang Primary Care [...] Location Date Provider Diagnosis Preston Wang DO, [address] [phone] 12/16/2023 Preston Wang Diverticulitis K57.9 2 ; [...]
--- OUTSIDE RECORDS SUMMARY | 2024-03-29 11:21 | XMS_ITS | Patient Health Record ---
Author Organization [facility] Address [address] [facility] [place] [address] Care Team Providers Care Ammonia Technician Name Role Phone Preston Wang MD Primary Care Provider Unavail able Lucy Castro Unavailable [phone] Allergies Allergen (clinical drug ingredient) Drug/Non Drug [...] Problem Status W/U Status Risk Notes Problem 724767064 Hammer toe of le ft foot (M20.42) Active confirmed Problem 978739199 Neuropathy (G62.9) Active confirmed Problem [id number] Atherosclerosi s of artery of both lower extremities (I70.203) Active confirmed Encounters Encounter Location Date Provider Diagnosis [facility] [place] [address] [place] [address] 06/28/2023 Lucy Castro Plan Of Treatment Pending Test Test Name Order Date X ray : Foot, left 3V 08/20/2022 X ray : Foot, left 3V 09/10/2022 X ray : Foot, left 3V 10/08/2022 [id number] NAIL, 1-5 12/21/2017 [id number] DYSTROPHIC NAILS ANY # Insurance Providers Payer Name Payer Address Payer Phone Subscriber Number Group Number Insured Name Patient Relationship to Insured Coverage Start Date Coverage End Date Medicare National Govt Svcs Inc [address] [place] [address] [id number] Xi Garrison Self - patient is the insured 3 [employer] Blue Shield [address] [place] [address] [phone] [id number] 1 Xi Garrison Self - patient is [...]
--- OUTSIDE RECORDS SUMMARY | 2024-03-29 11:21 | XMS_ITS ---
Author Organization [facility] Address [address] [place] [address] Care Team Providers Care Real Estate Sales Supervisor Name Role Phone Felipe SERNA, Preston Primary Care Provider Unavail able Lucy Castro Unavailable [phone] Encounters Encounter Location Date Provider Diagnosis [facility] [address] [place] [address] 06/28/2023 Lucy Castro Plan Of Treatment No Information Progress Notes * Casimiro DOANineDOB: 8 (79 yo F)Acc No.[id number]:06/28/2023 Progress Note Patient:?Xi DOAN Provider:?Lucy Castro DPM :1945???Age:78 Y???Sex:Female D ate:06/28/2023 Address:[address] [place] [address] [address] Chi DUSTIN-[address] Pcp:Preston Wang MD Subjective: * Chief Complaints: [...] Castro DPM Date:? Generated for Printi bre/Fagorang/eTransmitting on:?2024 11:21 AM EST
--- OUTSIDE RECORDS SUMMARY | 2024-03-29 11:21 | XMS_ITS ---
Author Organization [facility] Address [address] [place] [address] Care Team Providers Care Licensed Midwife Name Role Phone Felipe SERNA, Preston Primary Care Provider Unavail able Lucy Castro Unavailable [phone] Encounters Encounter Location Date Provider Diagnosis [facility] [address] [place] [address] 11/26/2022 Lucy Castro Plan Of Treatment No Information Progress Notes * Casimiro DOANineDOB: 8 (79 yo F)Acc No.[id number]:11/26/2022 Progress Note Patient:?Xi DOAN Provider:?Lucy Castro DPM :1945???Age:77 Y???Sex:Female D ate:11/26/2022 Address:[address] [place], [place] [address] [place] [id number] Pcp:Preston Wang MD Subjective: * Chief Complaints: [...] Castro DPM Date:? Generated for Printi ng/Fagorang/eTransmitting on:?2024 11:21 AM EST
--- OUTSIDE RECORDS SUMMARY | 2024-03-29 11:21 | XMS_ITS | Clinical Summary ---
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
--- OUTSIDE RECORDS SUMMARY | 2024-03-29 11:21 | XMS_ITS ---
Author Organization Preston Wang DO, [facility] Address [address] [place], [place] [id number] Care Team Providers Care Welder Explosion Name Role Phone Preston Wang Primary Care Provider [phone] REASON FOR VISIT pre-op SOCIAL HISTORY Sex Assigned At : Social History Observation Description Sex Assigned At Female Encounters Encounter Location Date Provider Diagnosis Preston Wang DO, FACP [address] [place] [phone] 02/14/2024 Preston Wang PLAN OF TREATMENT No Information
[2024-03-29 12:06] LABS: C Reactive Protein 13.75 mg/dL (< or = 0.50)
[2024-03-29 12:38] LABS: Erythrocyte Sedimentation Rate 91 MM/HR (0-20)
[2024-03-29 13:03] LABS: Lactic Acid 1.6 mmol/L (0.5-2.0)
--- NOTE | 2024-03-29 14:53 | MHC.EDTECH ---
VITAL SIGNS TAKEN AND REPORTED TO ROOM MAID. RT UPPER FOREARM 77/50 REPEAT LEFT UPPER FOREARM 86/49 . PATIENT TAKEN TO ROOM 14
[2024-03-29] MEDS: SODIUM CHLORIDE 2439 ML IV (17:09)
[2024-03-29] MEDS: cefTRIAXone sodium 2 GM VIAL IVPUSH (17:30)
--- NOTE | 2024-03-29 18:31 | ED_ITS ---
HPI - General Adult General Chief complaint: Wound/Laceration Stated complaint: wound r side leaking Time Seen by Provider: 03/29/24 16:00 Source: patient, family (), RN notes reviewed and old records reviewed Mode of arrival: wheelchair Limitations: no limitations History of Present Illness ED Provider: Zayda HPI narrative: 79-year-old female with past medical history significant for type 2 diabetes, hypertension, chronic kidney disease, hypothyroidism presents for evaluation of right flank pain. Patient reports that she has chronic right flank pain. She had an abscess about a year and a half ago that required IR drainage. She states that late last night or early this morning she developed drainage from the right flank He denies any fevers, chills. She was about a month and a half status post colostomy reversal but is still having bowel movements, has no lower abdominal pain Related Data Home Medications ?Medication ?Instructions ?Recorded ?Confirmed atorvastatin 10 mg tablet 1 tab PO DAILY 04/05/21 03/28/24 metformin 500 mg tablet,extended 1 tab PO DAILY@1700 04/06/21 03/28/24 release 24 hr cholecalciferol (vitamin D3) 50 50 mcg PO DAILY 07/19/22 03/28/24 mcg (2,000 unit) tablet (Vitamin D3) acetaminophen 500 mg tablet 1,000 mg PO Q6H PRN Pain 10/04/23 03/28/24 levothyroxine 112 mcg tablet 224 mcg PO SUWE@0600 02/20/24 03/28/24 pyridoxine (vitamin B6) 50 mg 50 mg PO DAILY 02/20/24 03/28/24 tablet Previous Rx's ?Medication ?Instructions ?Recorded furosemide 40 mg tablet 40 mg PO DAILY #30 tabs 12/16/21 tramadol 50 mg tablet 50 mg PO BID PRN pain (scale score 02/15/24 7-10) #14 tabs hydrocodone 5 mg-acetaminophen 325 1 tab PO Q4-6H PRN pain #30 tabs 02/25/24 mg tablet lisinopril 10 mg tablet 10 mg PO DAILY #90 tabs 03/12/24 chair, wheel (Wheel chair) #1 ea 03/28/24 Allergies Allergy/AdvReac Type Severity Reaction Status Date / Time chlorpheniramine Allergy Severe HALLUCINATI Verified 03/29/24 09:51 [From TUSSIONEX] ONS ciprofloxacin [From CIPRO] Allergy Severe ANAPHYLAXIS Verified 03/29/24 09:51 escitalopram [ESCITALOPRAM] Allergy Severe DISSOCIATIVE Verified 03/29/24 09:51 REACTION fluoxetine [FLUOXETINE] Allergy Severe DISSOCIATIVE Verified 03/29/24 09:51 REACTION hydrocodone [From TUSSIONEX] Allergy Severe HALLUCINATI Verified 03/29/24 09:51 ONS ibuprofen [IBUPROFEN] Allergy Severe THROAT Verified 03/29/24 09:51 SWELLING Sulfa (Sulfonamide Allergy Severe DYSPNEA Verified 03/29/24 09:51 Antibiotics) [SULFA (SULFONAMIDE ANTIBIOTICS)] clarithromycin [From BIAXIN] Allergy Intermediate ABD.PAIN Verified 03/29/24 09:51 duloxetine [DULOXETINE] Allergy Intermediate FACIAL Verified 03/29/24 09:51 NUMBNESS erythromycin base Allergy Intermediate RASH Verified 03/29/24 09:51 [ERYTHROMYCIN BASE] Penicillins [PENICILLINS] Allergy Intermediate RASH Verified 03/29/24 09:51 tetracycline [TETRACYCLINE] Allergy Intermediate DIARRHEA Verified 03/29/24 09:51 codeine [CODEINE] Allergy Unknown TINNITIS Verified 03/29/24 09:51 guaifenesin Allergy Unknown Unknown Verified 03/29/24 09:51 levofloxacin [From Levaquin] Allergy Unknown Unknown Verified 03/29/24 09:51 pregabalin Allergy Unknown Unknown Verified 03/29/24 09:51 Review of Systems 2 Constitutional: Constitutional: Denies body ache(s), Denies chills, Denies fever(s) and Denies headache(s) Eyes: Eyes: Denies blurry vision ENT: Denies vertigo, Denies dizziness and Denies headache(s) Cardiovascular: Cardiovascular: Denies chest pain and Denies dyspnea Respiratory: Respiratory: Denies cough and Denies dyspnea Gastrointestinal: Gastrointestinal: Denies abdominal pain Musculoskeletal: Musculoskeletal: Reports back pain Integumentary/Breasts: Skin/Breast: Reports erythema and Reports wounds Neurologic: Denies vertigo, Denies dizziness and Denies headache(s) [facility] Past Medical History Medical History (Updated 03/29/24 @ 18:55 by Gilbert Priest) Encounter for wheelchair assessment Diverticular disease Major depressive disorder Heel spur Chronic low back pain Uterine cancer Hyperthyroidism Weakness of both lower extremities Hydroureteronephrosis Wound infection Open wound of back, complicated Cellulitis Frequency of urination Vaginal burning Vaginal itching PMB (postmenopausal bleeding) Cirrhosis of liver Does mobilize using walker PONV (postoperative nausea and vomiting) Left foot drop Fatty liver Fibromyalgia Neuropathy RBBB Cholelithiasis Staghorn calculus Renal calculus, bilateral Renal calyceal dilation determined by ultrasound UTI (urinary tract infection) Diabetes mellitus, type II Ganglion cyst Plantar fasciitis Anxiety OA (osteoarthritis) Obstructive airway disease Hypercholesterolemia Low back pain Sciatica Hypothyroidism HTN (hypertension) Primary osteoarthritis of right knee Retained ureteral stent Renal stones Staghorn calculus Perirectal abscess Surgical History History of colostomy reversal (02/20/24) History of colectomy (~10/06/23) Status post cystoscopy with ureteral stent placement History of lumbar discectomy History of lumpectomy of both breasts History of cystoscopy History of lithotripsy Hx of colonoscopy History of surgery Family History Family History Father Alcohol dependence Mother CHF (congestive heart failure) Cancer of breast Mother No problems noted. Other Alcoholic cirrhosis Substance use disorder Social History Social History Household Members: Significant Other Housing: House Are you a primary wild animal caretaker to a significant other at home: No Do you presently have visiting nurse or other home services: Yes ([facility]NA) 75 years or older and lives alone: No Alcohol intake: never Comment: wheelchair for long distances Patient Tobacco Use Status: Former Tobacco user Tobacco use type: Cigarette Years Smoked: 27 e-Cigarette/Vaping Use: Never Used Second Hand Smoke Exposure: Yes Advance Directives Date on File: 04/06/21 service: No Current occupational status: disabled Cognitive needs: Yes (wheelchair) Hearing needs: No Vision needs: Yes (Glasses) Physical Exam ED Vital Signs: Vital Signs - 24 hr 03/29/24 09:50 03/29/24 14:52 03/29/24 16:20 Temperature 99.0 F 98 F Pulse Rate 83 73 62 Respiratory Rate 16 20 16 Blood Pressure 104/57 L 77/50 L 91/31 L Pulse Oximetry 98 98 100 Oxygen Delivery Method Room Air Room Air Room Air 03/29/24 17:06 03/29/24 19:28 Temperature 98.9 F Pulse Rate 68 70 Respiratory Rate 20 18 Blood Pressure 106/41 L 107/41 L Pulse Oximetry 100 98 Oxygen Delivery Method Room Air Room Air BMI result Body Mass Index 31.7 Const General: healthy appearing, comfortable, no acute distress, alert and awake Nutritional Appearance: well nourished Orientation/consciousness: patient oriented x3 HENMT Head: Yes normocephalic and Yes atraumatic Eyes Eyelids: Yes eyelids normal Conjunctivae: conjunctivae normal Sclerae: sclerae normal Corneas: corneas normal Pupils: Equal, round and reactive pupils present EOM: EOMs intact bilaterally Neck Neck: Yes full ROM Resp Effort & Inspection: normal respiratory effort, able to speak in complete sentences and not labored GI Inspection: No distended Palpation (GI): Soft to palpation, not firm, nontender, no guarding and not rigid Back/Spine/Pelvis Other: Of the right flank has a 2 cm in diameter hole with surrounding erythema and draining copious amounts of purulent fluid Skin General skin exam: elasticity normal Neuro General: patient oriented x3 Cranial nerves: Yes Equal, round and reactive pupils present and Yes Bilaterally intact EOM present Cognition (Neuro): normal cognition Extrem Other: Moving all extremities well without any obvious deformities Course Reevaluation(s) Reevaluation #1: Patient's CT scan shows an intramuscular abscess and phlegmon this changes in the left ventral abdomen. The patient is here today for the abscess in the right flank and I plan to admit to the medical service for this. However given the phlegmonous changes in the left ventral abdomen I did discuss with surgery as the patient had a recent colostomy reversal. The patient has no abdominal pain. Dr Silva will have the patient seen by the surgical tem tomorrow Time: 20:05 Medications Administered Discontinued Medications Generic Name Dose Route Start Last Admin Trade Name Freq PRN Reason Stop Dose Admin Ceftriaxone Sodium 2 gm 03/29/24 17:21 03/29/24 17:30 Ceftriaxone Sodium 2 Gm Vial IVPUSH 03/29/24 17:22 2 gm ONCE ONE Administration Sodium Chloride 2,439 mls @ 2,439 mls/hr 03/29/24 16:35 03/29/24 17:09 Ns 30 ml/kg infuse over 1 hr (2439 ml) 03/29/24 17:34 2,439 mls/hr IV Administration .Q1H STA Vancomycin HCl 2,000 mg in 500 mls @ 250 mls/hr 03/29/24 18:00 03/29/24 19:26 Vancomycin/Ns IV 03/29/24 19:59 250 mls/hr ONCE ONE Administration Medical Decision Making Medical Decision Making [facility] Narrative: 79-year-old female presents for evaluation of right flank pain and a draining wound. She appears to have an abscess in the area of the right flank. She has a leukocytosis. She meets sepsis criteria I ordered IV fluids, 30 cc/kilogram. She was mildly hypotensive which appeared to respond to fluids well. She had a hyponatremia to 129. She is not symptomatic from this. She reports feeling well with a than right flank pain. No fevers or chills. I ordered a CT scan without contrast due to FELICITA on top of chronic kidney disease. She has numerous allergies including penicillin allergies. I ordered vancomycin and ceftriaxone that she will cover skin jaret and urine floor if this is a perinephric abscess. Differential Diagnosis Differential Diagnoses: The differential diagnosis associated with the presentation includes Abscess Perinephric abscess Cellulitis Sepsis Bacteremia Admission/Observation Consideration of admission/observation: Escalation of care including admission/observation considered Consult Healthcare Provider Management of the patient was discussed with: Airset Molder (Dr silva, general surgery) Lab Data [facility] Lab Attestation statement: I reviewed the patient's lab results. Leukocytosis to 14.3 K the patient has a chronic anemia that is slightly improved compared to her recent baseline. This may be due to some degree of dehydration. She has a left shift consistent with her right flank infection. A sodium is low at 129 with a carbon dioxide of 17 which could be due to hyperventilating due to pain. She has a history of low CO2. I will order a VBG. She has chronic kidney disease with renal function slightly worse than baseline with a BUN of 27 and creatinine of 1.93. She is a known diabetic with a glucose of 175. Elevated inflammatory markers 03/29/24 10:13 03/29/24 10:13 Labs: Lab Results 03/29/24 03/29/24 Range/Units 10:13 12:42 WBC 14.3 H (4.8-10.8) X10*3/uL RBC 3.98 L D (4.20-5.50) X10*6/uL Hgb 10.2 L D (12.0-16.0) g/dl Hct 31.4 L D (37.0-47.0) % MCV 78.9 L (80.0-98.0) fL MCH 25.6 L (27.0-33.0) pg MCHC 32.5 (31.0-35.0) g/dl RDW 15.9 (11.0-16.0) % Plt Count 385 D (160-400) X10*3/uL MPV 9.2 L (9.4-12.3) fL Immature Gran % (Auto) 2.9 H (0.0-0.4) % Neut % (Auto) 86.1 H (45-73) % Lymph % (Auto) 5.9 L (20-40) % [place] % (Auto) 4.9 (2-11) % Eos % (Auto) 0.0 (0-4) % Baso % (Auto) 0.2 (0-2) % Lymph # (Auto) 0.9 L (1.2-4.9) X10*3/uL [place] # (Auto) 0.7 (0.1-1.2) X10*3/uL Eos # (Auto) 0.0 (0.0-0.4) X10*3/uL Baso # (Auto) 0.0 (0.0-0.2) X10*3/uL Abs Immat Gran (auto) 0.42 H (0.00-0.03) X10*3/uL Absolute Neuts (auto) 12.3 H (2.0-8.3) x10*3/uL Absolute Nucleated RBC 0.000 (0.0-0.012) X10*3/uL Nucleated RBC % (auto) 0.0 (0.0-0.2) /100WBC ESR 91 H (0-20) MM/HR Sodium 129 L (135-145) mmol/L Potassium 3.5 (3.3-5.1) mmol/L Chloride 99 (96-108) mmol/L Carbon Dioxide 17 L (22-29) mmol/L Anion Gap 17 (12-20) BUN 27 H (9-16) mg/dL Creatinine 1.93 H (0.5-1.4) mg/dL Estim Creat Clear Calc 24.6 Estimated GFR 25 Random Glucose 175 H (60-115) mg/dL Lactic Acid 1.6 (0.5-2.0) mmol/L Calcium 8.9 (8.4-10.2) mg/dL Total Bilirubin 0.6 (0.0-1.0) mg/dL AST 49 H (5-31) U/L ALT 27 (0-31) U/L Alkaline Phosphatase 58 (39-117) U/L C-Reactive Protein 13.75 H (< or = 0.50) mg/dL Total Protein 7.8 (6.5-8.0) g/dL Albumin 3.0 L (3.5-5.0) g/dL Independent Interpretation I performed an independent interpretation of an: CT Scan Interpretation: agree with radiology interpretation Radiology Impression Discussion of test interpretation with radiology: I have reviewed the radiologist's reading. Radiologist Impression: IMPRESSION: 1. Right dorsal lateral fluid collection extends laterally from right iliopsoas musculature measuring up to 3.8 cm concerning for abscess in this noncontrast study. 2. Left ventral phlegmonous change and/or drained fluid collection measures up to 4.3 cm. 3. Additional fluid includes free fluid in the pelvis concerning for sigmoid colitis. 4. Cholelithiasis. 5. Right-sided nephrolithiasis with right-sided ureteral stent in place. This document has been electronically signed by: Manjeet Coley MD on 03/29/2024 19:30:34 Discharge Plan Discharge Clinical Impression: Abscess Patient Disposition: Admitted As Inpatient Prescriptions: No Action lisinopril 10 mg tablet 10 mg PO DAILY Qty: 90 1RF (DME) Wheel chair Kit See Rx Instructions .Route Qty: 1 0RF Rx Instructions: As directed atorvastatin 10 mg tablet 1 tab PO DAILY metformin 500 mg tablet extended release 24 hr 1 tab PO DAILY@1700 furosemide 40 mg tablet 40 mg PO DAILY Qty: 30 0RF acetaminophen 500 mg Tablet 1,000 mg PO Q6H PRN (Reason: Pain) pyridoxine (vitamin B6) 50 mg tablet 50 mg PO DAILY levothyroxine 112 mcg tablet 224 mcg PO SUWE@0600 hydrocodone-acetaminophen 5-325 mg tablet 1 tab PO Q4-6H PRN (Reason: pain) Qty: 30 0RF Rx Instructions: Partial Fill upon patient request. cholecalciferol (vitamin D3) [Vitamin D3] 50 mcg (2,000 unit) tablet 50 mcg PO DAILY tramadol 50 mg tablet 50 mg PO BID PRN (Reason: pain (scale score 7-10)) Qty: 14 0RF Print Language: Urdu
[2024-03-29] MEDS: vancomycin/NS 2,000 MG/500 ML PLAST..BAG 250 MG IV (19:26)
--- NOTE | 2024-03-29 19:42 | PC.NURSE ---
assumed care of pt at 19:15. report received from Yancy IBARRA. per RN iv sepsis fluids still running, as pt only has 1 iv line.
--- NOTE | 2024-03-29 20:27 | PC.NURSE ---
iv fluids still infusing
--- NOTE | 2024-03-29 20:41 | P.HPHOSP_ITS ---
History of Present Illness Date of Service: 03/29/24 Attending physician on admission: [facility] Chief Complaint: Right hip wound Pt is a 79-year-old female with a PMH significant for?HLD HTN, hypothyroidism, gpc-taflzhz-cjukhmetm type 2 diabetes, and hx of sigmoid stricture s/p Vicki procedure with recent colostomy reversal who presents to the ED for evaluation of a right flank wound that ?burst? and drained last night. Pt overall is a rather poor historian and is initially unable to state why she came to the hospital, how long her symptoms have been ongoing, or even what side of her abdomen her ostomy was on. Pt reports she is ?not good with time? and unable to provide much detail concerning HPI, which is instead obtained from chart and provider review. Pt initially had family who was at bedside who stated last night pt had wound that burst open with pus-like discharge. Pt apparently had similar incident 1.5 years ago with abscess that required IR drainage. Pt is well known to [facility] general surgery services and underwent Vicki procedure in 09/2023 with subsequent colostomy reversal on 02/20/2024. Ostomy closure dehisced on 03/09/2024 pt has been seen by [facility] services 3 times a week and changing dressing daily. Pt herself currently has no acute medical complaints, including abdominal pain, nausea, vomiting. No chest pain/pressure, palpitations. Of note, pt apparently has not been eating or drinking much the past few weeks. In the ED pt was soft BP as low as , vitals otherwise stable and WNL. Labs were significant for leukocytosis of 14.3, stable H&H of 10.2/31.4, sodium 129, BUN 27, creatinine 1.93 (decreased from 1.40 on 02/25/2024) AST 49, CRP 13.75, and albumin 3.0. Lactic acid WNL at 1.6. CT?of abdomen and pelvis found right dorsal lateral fluid collection from right iliopsoas musculature measuring up to 3.8 cm concerning for abscess. Also found left ventral phlegmonous change and/or drain fluid collection up to 4.3 cm, and additional free fluid in pelvis concerning for sigmoid colitis. Pt was treated with IVF, ceftriaxone, and vancomycin. Pt will be admitted to the hospital for treatment and further evaluation of FELICITA in the setting iliopsoas muscle abscess. Review of Systems 2 Review of Systems: Negative except for that which is stated in the HPI [facility] Medical History Encounter for wheelchair assessment Diverticular disease Major depressive disorder Heel spur Chronic low back pain Uterine cancer Hyperthyroidism Weakness of both lower extremities Hydroureteronephrosis Wound infection Open wound of back, complicated Cellulitis Frequency of urination Vaginal burning Vaginal itching PMB (postmenopausal bleeding) Cirrhosis of liver Does mobilize using walker PONV (postoperative nausea and vomiting) Left foot drop Fatty liver Fibromyalgia Neuropathy RBBB Cholelithiasis Staghorn calculus Renal calculus, bilateral Renal calyceal dilation determined by ultrasound UTI (urinary tract infection) Diabetes mellitus, type II Ganglion cyst Plantar fasciitis Anxiety OA (osteoarthritis) Obstructive airway disease Hypercholesterolemia Low back pain Sciatica Hypothyroidism HTN (hypertension) Primary osteoarthritis of right knee Retained ureteral stent Renal stones Staghorn calculus Perirectal abscess Family History Father Alcohol dependence Mother CHF (congestive heart failure) Cancer of breast Mother No problems noted. Other Alcoholic cirrhosis Substance use disorder Surgical History History of colostomy reversal (02/20/24) History of colectomy (~10/06/23) Status post cystoscopy with ureteral stent placement History of lumbar discectomy History of lumpectomy of both breasts History of cystoscopy History of lithotripsy Hx of colonoscopy History of surgery Social History Household Members: Significant Other Housing: House Are you a primary manager medicare marketing to a significant other at home: No Do you presently have visiting nurse or other home services: Yes ([facility]NA) Alcohol intake: never Comment: wheelchair for long distances Patient Tobacco Use Status: Former Tobacco user Tobacco use type: Cigarette Years Smoked: 27 e-Cigarette/Vaping Use: Never Used Second Hand Smoke Exposure: Yes Use of substances other than those prescribed or required for medical reasons: No Advance Directives: Yes Advance Directives on File: Yes Advance Directives Date on File: 04/06/21 Do you have a plan to hurt others: No Plan Nutrition Risks: No Nutritional Risk service: No Current occupational status: disabled Cognitive needs: Yes (wheelchair) Hearing needs: No Vision needs: Yes (Glasses) Meds Allergies Allergy/AdvReac Type Severity Reaction Status Date / Time chlorpheniramine Allergy Severe HALLUCINATI Verified 03/29/24 09:51 [From TUSSIONEX] ONS ciprofloxacin [From CIPRO] Allergy Severe ANAPHYLAXIS Verified 03/29/24 09:51 escitalopram [ESCITALOPRAM] Allergy Severe DISSOCIATIVE Verified 03/29/24 09:51 REACTION fluoxetine [FLUOXETINE] Allergy Severe DISSOCIATIVE Verified 03/29/24 09:51 REACTION hydrocodone [From TUSSIONEX] Allergy Severe HALLUCINATI Verified 03/29/24 09:51 ONS ibuprofen [IBUPROFEN] Allergy Severe THROAT Verified 03/29/24 09:51 SWELLING Sulfa (Sulfonamide Allergy Severe DYSPNEA Verified 03/29/24 09:51 Antibiotics) [SULFA (SULFONAMIDE ANTIBIOTICS)] clarithromycin [From BIAXIN] Allergy Intermediate ABD.PAIN Verified 03/29/24 09:51 duloxetine [DULOXETINE] Allergy Intermediate FACIAL Verified 03/29/24 09:51 NUMBNESS erythromycin base Allergy Intermediate RASH Verified 03/29/24 09:51 [ERYTHROMYCIN BASE] Penicillins [PENICILLINS] Allergy Intermediate RASH Verified 03/29/24 09:51 tetracycline [TETRACYCLINE] Allergy Intermediate DIARRHEA Verified 03/29/24 09:51 codeine [CODEINE] Allergy Unknown TINNITIS Verified 03/29/24 09:51 guaifenesin Allergy Unknown Unknown Verified 03/29/24 09:51 levofloxacin [From Levaquin] Allergy Unknown Unknown Verified 03/29/24 09:51 pregabalin Allergy Unknown Unknown Verified 03/29/24 09:51 Home Medications ?Medication ?Instructions ?Recorded ?Confirmed ?Last Taken ?Type atorvastatin 10 mg tablet 10 mg PO DAILY 04/05/21 03/29/24 03/28/24 History metformin 500 mg tablet,extended 1 tab PO DAILY@1700 04/06/21 03/29/24 03/28/24 History release 24 hr cholecalciferol (vitamin D3) 50 50 mcg PO DAILY 07/19/22 03/29/24 03/28/24 History mcg (2,000 unit) tablet (Vitamin D3) acetaminophen 500 mg tablet 1,000 mg PO Q6H PRN Pain 10/04/23 03/29/24 Unknown History levothyroxine 112 mcg tablet 224 mcg PO SUWE@0600 02/20/24 03/29/24 03/28/24 History pyridoxine (vitamin B6) 50 mg 50 mg PO DAILY 02/20/24 03/29/24 03/28/24 History tablet hydrocodone 5 mg-acetaminophen 325 1 tab PO Q4-6H PRN Pain (Scale 03/29/24 03/29/24 Unknown History mg tablet Score 7-10) levothyroxine 112 mcg tablet 112 mcg PO GALE@0600 03/29/24 03/29/24 03/27/24 History tramadol 50 mg tablet 50 mg PO BID PRN Pain (Scale Score 03/29/24 03/29/24 Unknown History 4-6) Physical Exam 2 Vital Signs and Narrative: Vital Signs: Last Vital Signs Temp 98.9 F 03/29/24 19:28 Pulse 70 03/29/24 19:28 Resp 18 03/29/24 19:28 BP 107/41 L 03/29/24 19:28 Pulse Ox 98 03/29/24 19:28 O2 Del Method Room Air 03/29/24 19:28 BMI result Body Mass Index 31.7 General: Alert and oriented to person and place, not to time or situation. In no acute distress Resp: CTA bilaterally CVS: S1, S2, RRR GI: Left sided tenderness. Partially dehisced open wound on left lower abdomen at site of previous ostomy, with purulent discharge. Small wound on left lower flank with surrounding erythema. As pictured below Skin: Warm, dry Neuro: Cranial nerves II-XII grossly intact bilaterally. Motor grossly intact bilaterally, though global weakness noted. Mild resting tremors of upper extremities. Extremities: No edema Psych: Slightly confused, unclear if at baseline Results Labs 03/29/24 10:13 03/29/24 10:13 Labs: Laboratory Results - last 24 hr 03/29/24 03/29/24 10:13 12:42 MCV 78.9 L MCH 25.6 L MCHC 32.5 RDW 15.9 Plt Count 385 D MPV 9.2 L Immature Gran % (Auto) 2.9 H Neut % (Auto) 86.1 H Lymph % (Auto) 5.9 L Mcculloch % (Auto) 4.9 Eos % (Auto) 0.0 Baso % (Auto) 0.2 Lymph # (Auto) 0.9 L Mcculloch # (Auto) 0.7 Eos # (Auto) 0.0 Baso # (Auto) 0.0 Abs Immat Gran (auto) 0.42 H Absolute Neuts (auto) 12.3 H Absolute Nucleated RBC 0.000 Nucleated RBC % (auto) 0.0 ESR 91 H Anion Gap 17 Estim Creat Clear Calc 24.6 Estimated GFR 25 Random Glucose 175 H Lactic Acid 1.6 Calcium 8.9 Total Bilirubin 0.6 AST 49 H ALT 27 Alkaline Phosphatase 58 C-Reactive Protein 13.75 H Total Protein 7.8 Albumin 3.0 L Assessment and Plan (1) Abscess: Status: Acute Plan Pt is a 79-year-old female with a PMH significant for?HLD HTN, hypothyroidism, fhq-mauhdvy-gmyashvfc type 2 diabetes, and hx of sigmoid stricture s/p Vicki procedure with recent colostomy reversal who presents to the ED for evaluation of a right flank wound that ?burst? and drained last night. Pt will be admitted to the hospital for treatment and further evaluation of FELICITA in the setting iliopsoas muscle abscess. Iliopsoas abscess CT showing 3 point cm fluid collection concerning for abscess CT also showed left ventral phlegmonous changes and/or drain fluid collection up to 4.3 cm Pt with recent colostomy reversal on 02/20/2024 Reports similar abscess that needed drainage 1.5 years ago No sepsis: Leukocytosis, but no fever, tachycardia, or tachypnea; lactic acid WNL 1.6 Will treat with ceftriaxone and vancomycin, started 03/29/2024 NPO after midnight General surgery consult Follow wound and blood cultures Question of encephalopathy Pt mildly confused, unable to state why she came to the hospital or even what side her ostomy was on Initially presented to the ED with family who was not concerned with her mentation, though currently unavailable to speak to Baseline mentation unknown ?Secondary to abscess/infection Treat as above with antibiotics Monitor mentation FELICITA Patient's creatinine 1.93 at time of presentation, elevated from 1.40 on 02/25/2024 Likely secondary to reduced p.o. intake as well as continued diuretic use Pt received IVF in the ED Will place on maintenance fluids Hold lisinopril and Lasix Hypotension Patient's BP as low as 77/50, currently 116/44 after IVF Likely secondary to reduced p.o. intake and continued diuretic use Pt received IVF in the ED Will place on maintenance fluids Hold lisinopril Monitor BP Hyponatremia Patient's sodium 129 at time of presentation Likely secondary to reduced p.o. intake and continued diuretic use Pt given IVF in the ED Hold Lasix Follow sodium Zgz-sxiypzx-piodmsbtj type [address] on sliding scale insulin Diabetic diet Hypothyroidism Continue levothyroxine Full Code Attending:?Dr. Rios DVT Prophylaxis: Pneumatic compression due to possible surgical procedure Pt will require a hospitalization of at least two nights for treatment of?FELICITA in the setting of iliopsoas abscess. Pt will require hospital level care for administration of IV antibiotics, IV fluids, and specialist consultation with General surgery with likely surgical procedure to drain abscess. Quality Stroke Does the patient have a stroke diagnosis?: No VTE Prior VTE?: No VTE Risk Level:: Medical - moderate - high VTE Device Contraindication: N/A - Device Ordered VTE Drug Contraindication: Treatment Not Indicated
--- NOTE | 2024-03-29 21:18 | PC.NURSE ---
iv fluids complete at 2044, 2 BPs documented reflected in chart
[2024-03-29 21:29] LABS: Venous Blood Gas Refer to POC result
[2024-03-29 21:29] LABS: VBG Base Excess -5.8 mmol/L; VBG HCO3 18 mmol/L (22-26); VBG pCO2 33 mmHg; VBG pH 7.35 (7.32-7.43); VBG pO2 34 mmHg
--- NOTE | 2024-03-29 22:05 | PHA.MEDREC ---
Addendum entered by Apoorva Skelton [facility] 03/29/24 22:14: Pt takes [id number] on sundays and wednesdays, and one- 112mcg tablet all other days Addendum entered by Apoorva Skelton RP 03/29/24 22:12: reviewed by [facility]. Original Note: Pharmacy Consult ? Medication Reconciliation Pharmacy has completed the medication reconciliation. Spoke to patients Matt over the phone to confirm med list. Matt was able to read off patients bottles. Matt states patient only takes Hydrocodone -acetaminophen and Tramadol 50 mg if patient is in a lot of pain. Matt states he gives her one or the other. patient does not take on a regular bases.
--- NOTE | 2024-03-29 22:51 | PHA.PROG ---
Admission Date/Time: March 29, 2024 22:28 Indication: INTRA ABDOMINAL Weight in k.3 kg Adjusted body weight in Kg: Bend body weight in Kg: Obesity Dosing Indication % IBW: Serum Creatinine - Last 168 Hours 03/29/24 10:13 Creatinine 1.93 H Estimated CrCl and GFR - Last 168 Hours 03/29/24 10:13 Estim Creat Clear Calc 24.6 Estimated GFR 25 Vancomycin Loading Dose: 2000 MG Current Vancomycin Dosing Regimen: 750 MG Q24H Vancomycin Monitoring using AUC goal of 400 - 600 range with trough as surrogate marker: WBF=564 TROUGH=16.5 Date and Time for next Vancomycin Level to be drawn: 03/31/24 @1700 Pharmacist Comments on Vancomycin Plan: Vancomycin dosing will take advantage of [employer] Doctor as a clinical decision support tool that uses Bayesian modeling to calculate individual patient's pharmacokinetic parameters and forecast the patient's drug concentration time course with the target goal AUC 24 range of 400 - 600 mg/L/hr.
[2024-03-29] MEDS: Lactated Ringers 1,000 ML 100 ML IVCONT (23:10)
--- NOTE | 2024-03-29 23:23 | PC.NURSE ---
pt resting comfortably in bed, no apparent distress noted, helped up to commode by tech LR running at 100ml/hr. pt offers no current complaints, denies pain. call guzman within reach.
[2024-03-30 01:03] VITALS: BP 106/37; PULSE 77; RESP 18; TEMP 36.8; O2SAT 97
--- NOTE | 2024-03-30 02:16 | MHC.EDTECH ---
Patient was assisted unto bedside Commode ,urine sample collected and sent to lab .
[2024-03-30 02:30] LABS: Appearance Urine Turbid; Color Urine Yellow; Glucose Urine UA Negative (Negative); Leukocyte Esterase Urine Large (3+) (Negative); Nitrite Urine Negative (Negative); Specific Gravity - Urine 1.015 (1.005-1.025); UMIC TRIGGER UACC YES; Urine Blood Moderate (2+) (Negative); Urine Ketones Negative (Negative); Urine Protein 100 (2+) mg/dL (Neg-Trace)
[2024-03-30 03:20] LABS: Bacteria Urine Trace (None Seen); UACC Culture Trigger YES; WBC Clumps Urine Present; WBC Urine >50 /HPF (0-5)
[2024-03-30 04:02] VITALS: BP 102/45; PULSE 71; RESP 16; TEMP 36.3; O2SAT 97
[2024-03-30 05:43] VITALS: BP 108/40; PULSE 74; RESP 14; TEMP 36.9; O2SAT 99
[2024-03-30 05:53] LABS: Hematocrit 25.3 % (37.0-47.0); Hemoglobin 8.3 g/dl (12.0-16.0); Mean Corpuscular HGB Conc 32.8 g/dl (31.0-35.0); Mean Corpuscular Hemoglobin 25.7 pg (27.0-33.0); Mean Corpuscular Volume 78.3 fL (80.0-98.0); Mean Platelet Volume 8.8 fL (9.4-12.3); Platelet Count 251 X10*3/uL (160-400); Red Blood Count 3.23 X10*6/uL (4.20-5.50); Red Cell Distribution Width 15.9 % (11.0-16.0); White Blood Count 7.1 X10*3/uL (4.8-10.8)
[2024-03-30 06:10] LABS: Anion Gap 11 (12-20); Blood Urea Nitrogen 27 mg/dL (9-16); Carbon Dioxide 19 mmol/L (22-29); Chloride 106 mmol/L (96-108); Creatinine Clr Calc Pharmacy 30.4; Estimated Glomerular Filt Rate 32; Glucose Random 94 mg/dL (60-115); Potassium 3.3 mmol/L (3.3-5.1); Sodium 133 mmol/L (135-145)
[2024-03-30] MEDS: Levothyroxine Sodium 112 MCG TABLET PO (07:01)
--- NOTE | 2024-03-30 07:06 | MHC.EDTECH ---
pt assisted to bedside commode, tolerated well
[2024-03-30 07:25] LABS: Glucose, Whole Blood 90 mg/dL (60-115)
[2024-03-30] MEDS: Pyridoxine HCl (Vitamin B6) 50 MG TABLET PO (08:45)
[2024-03-30] MEDS: Atorvastatin Calcium 10 MG TABLET PO (08:45)
[2024-03-30] MEDS: Cholecalciferol (Vitamin D3) 25 MCG TABLET 50 MCG PO (08:45)
--- NOTE | 2024-03-30 08:53 | P.CONGS_ITS ---
History of Present Illness Consult details Consult date: 03/30/24 Requesting physician: Lucio Mead Narrative: 79-year-old female patient well known to service with a prior history of diverticular stricture status post open sigmoid colectomy with descending colostomy on 10/06/2023 followed by closure of colostomy on 02/20/2024. Following this procedure the patient has had a difficult recovery with wound separation and discharge as well as reduced appetite. She presents to the emergency department with drainage from the right flank. Subsequent CT abdomen and pelvis found a right dorsal lateral fluid collection from the right iliopsoas musculature measuring up to 3.8 cm concerning for an abscess. She was admitted to the hospitalist service and placed on IV antibiotics. The patient appears more confused than usual in his not clear why she is in the hospital. Patient has a stent in the right kidney/ureter placed by Dr. Reis for a staghorn calculus. Review of Systems 2 Review of Systems: Yes all other systems are reviewed and are negative Constitutional: Constitutional: Denies chills, Denies fever(s), Denies headache(s), Reports poor appetite and Denies weakness ENT: Denies headache(s) Cardiovascular: Cardiovascular: Denies chest pain, Denies irregular heart rhythm, Denies palpitations and Denies dyspnea Respiratory: Respiratory: Denies cough, Denies excessive phlegm production and Denies dyspnea Gastrointestinal: Gastrointestinal: Reports abdominal pain, Reports bloating, Denies change in bowel habits, Reports constipation, Denies heartburn, Reports diarrhea, Reports nausea and Reports vomiting Genitourinary: Genitourinary: Denies urinary frequency Musculoskeletal: Musculoskeletal: Denies back pain, Denies muscle weakness and Denies numbness Integumentary/Breasts: Skin/Breast: Denies changing lesions and Denies unusual bruising Neurologic: Reports confusion, Denies headache(s), Denies numbness, Denies paresthesias and Denies weakness Psychiatric: Psychiatric: Denies anxiety, Reports confusion and Denies depression Endocrine: Endocrine: Denies palpitations Hematologic/Lymphatic: Hematologic/Lymphatic: Denies lymphadenopathy PMFSH Past Medical History Medical History Encounter for wheelchair assessment Diverticular disease Major depressive disorder Heel spur Chronic low back pain Uterine cancer Hyperthyroidism Weakness of both lower extremities Hydroureteronephrosis Wound infection Open wound of back, complicated Cellulitis Frequency of urination Vaginal burning Vaginal itching PMB (postmenopausal bleeding) Cirrhosis of liver Does mobilize using walker PONV (postoperative nausea and vomiting) Left foot drop Fatty liver Fibromyalgia Neuropathy RBBB Cholelithiasis Staghorn calculus Renal calculus, bilateral Renal calyceal dilation determined by ultrasound UTI (urinary tract infection) Diabetes mellitus, type II Ganglion cyst Plantar fasciitis Anxiety OA (osteoarthritis) Obstructive airway disease Hypercholesterolemia Low back pain Sciatica Hypothyroidism HTN (hypertension) Primary osteoarthritis of right knee Retained ureteral stent Renal stones Staghorn calculus Perirectal abscess Family History Family History Father Alcohol dependence Mother CHF (congestive heart failure) Cancer of breast Mother No problems noted. Other Alcoholic cirrhosis Substance use disorder Surgical History Surgical History History of colostomy reversal (02/20/24) History of colectomy (~10/06/23) Status post cystoscopy with ureteral stent placement History of lumbar discectomy History of lumpectomy of both breasts History of cystoscopy History of lithotripsy Hx of colonoscopy History of surgery Social History Social History Household Members: Significant Other Housing: House Are you a primary director of patient care to a significant other at home: No Do you presently have visiting nurse or other home services: Yes ([facility]) Alcohol intake: never Comment: wheelchair for long distances Patient Tobacco Use Status: Former Tobacco user Tobacco use type: Cigarette Years Smoked: 27 e-Cigarette/Vaping Use: Never Used Second Hand Smoke Exposure: Yes Advance Directives Date on File: 04/06/21 service: No Current occupational status: disabled Cognitive needs: Yes (wheelchair) Hearing needs: No Vision needs: Yes (Glasses) Meds Allergies Allergy/AdvReac Type Severity Reaction Status Date / Time chlorpheniramine Allergy Severe HALLUCINATI Verified 03/29/24 09:51 [From TUSSIONEX] ONS ciprofloxacin [From CIPRO] Allergy Severe ANAPHYLAXIS Verified 03/29/24 09:51 escitalopram [ESCITALOPRAM] Allergy Severe DISSOCIATIVE Verified 03/29/24 09:51 REACTION fluoxetine [FLUOXETINE] Allergy Severe DISSOCIATIVE Verified 03/29/24 09:51 REACTION hydrocodone [From TUSSIONEX] Allergy Severe HALLUCINATI Verified 03/29/24 09:51 ONS ibuprofen [IBUPROFEN] Allergy Severe THROAT Verified 03/29/24 09:51 SWELLING Sulfa (Sulfonamide Allergy Severe DYSPNEA Verified 03/29/24 09:51 Antibiotics) [SULFA (SULFONAMIDE ANTIBIOTICS)] clarithromycin [From BIAXIN] Allergy Intermediate ABD.PAIN Verified 03/29/24 09:51 duloxetine [DULOXETINE] Allergy Intermediate FACIAL Verified 03/29/24 09:51 NUMBNESS erythromycin base Allergy Intermediate RASH Verified 03/29/24 09:51 [ERYTHROMYCIN BASE] Penicillins [PENICILLINS] Allergy Intermediate RASH Verified 03/29/24 09:51 tetracycline [TETRACYCLINE] Allergy Intermediate DIARRHEA Verified 03/29/24 09:51 codeine [CODEINE] Allergy Unknown TINNITIS Verified 03/29/24 09:51 guaifenesin Allergy Unknown Unknown Verified 03/29/24 09:51 levofloxacin [From Levaquin] Allergy Unknown Unknown Verified 03/29/24 09:51 pregabalin Allergy Unknown Unknown Verified 03/29/24 09:51 Active Medications: Current Medications Acetaminophen (Acetaminophen 325 Mg Tablet) 650 mg PO Q6H PRN PRN Reason: Pain, Mild 1-3,fever,headache Hydrocodone Bitart/Acetaminophen (Hydrocodone Bit/Acetam 5/325 Tablet) 1 tab PO Q4H PRN PRN Reason: Pain (Scale Score 7-10) Atorvastatin Calcium (Atorvastatin Calcium 10 Mg Tablet) 10 mg PO DAILY [facility] Last Admin: 03/30/24 08:45 Dose: 10 mg Calcium Carbonate (Calcium Carbonate 750 Mg Tab.Chew) 750 mg PO Q4H PRN PRN Reason: Heartburn Ceftriaxone Sodium (Ceftriaxone Sodium 1 Gm Vial) 1 gm IVPUSH Q24H [facility] Dextrose (Dextrose 50 % 25 Gm/50 Ml Syringe) 25 gm IVPUSH Q15M PRN; Protocol PRN Reason: per Hypoglycemia Standing Ord. Glucose (Glucose Gel 15 Gm Gel..Gram.) 15 gm PO Q15M PRN; Protocol PRN Reason: per Hypoglycemia Standing Ord. Vancomycin HCl 750 mg/ Sodium (Chloride) 265 mls @ 265 mls/hr IV Q24H [facility] Lactated Ringer's (Lr) 1,000 mls @ 100 mls/hr IVCONT .Q10H [facility] Stop: 03/30/24 08:59 Last Admin: 03/29/24 23:10 Dose: 100 mls/hr Insulin Human Lispro (Insulin Lispro 100 Unit/Ml 3 Ml Vial) 0 unit SUBCUT QIDACHS [facility]; Protocol Last Admin: 03/30/24 07:26 Dose: Not Given Levothyroxine Sodium (Levothyroxine Sodium 112 Mcg Tablet) 112 mcg PO MOTUTHFRSA@0600 [facility] Last Admin: 03/30/24 07:01 Dose: 112 mcg Levothyroxine Sodium (Levothyroxine Sodium 112 Mcg Tablet) 224 mcg PO SUWE@0600 [facility] Magnesium Hydroxide (Milk Of Magnesia 30 Ml Oral.Susp) 30 ml PO DAILY PRN PRN Reason: Constipation Melatonin (Melatonin 3 Mg Tablet) 6 mg PO BEDTIME PRN PRN Reason: Insomnia Ondansetron HCl (Ondansetron Hcl 4 Mg/2 Ml Vial) 4 mg IVPUSH Q8H PRN PRN Reason: Nausea and Vomiting Pharmacy Consult (Consult Rx Vancomycin Dosing) 1 each MISCELLANE DAILY PRN PRN Reason: Consult order Pyridoxine HCl (Pyridoxine Hcl (Vitamin B6) 50 Mg Tablet) 50 mg PO DAILY [facility] Last Admin: 03/30/24 08:45 Dose: 50 mg Sodium Chloride (0.9 % Sodium Chloride Flush 3 Ml Syringe) [address] [facility] Last Admin: 03/30/24 07:27 Dose: Not Given Tramadol HCl (Tramadol Hcl 50 Mg Tablet) 50 mg PO BID PRN PRN Reason: Pain (Scale Score 4-6) Vitamin D (Cholecalciferol (Vitamin D3) 25 Mcg Tablet) 50 mcg PO DAILY [facility] Last Admin: 03/30/24 08:45 Dose: 50 mcg Home Medications ?Medication ?Instructions ?Recorded ?Confirmed ?Last Taken ?Type atorvastatin 10 mg tablet 10 mg PO DAILY 04/05/21 03/29/24 03/28/24 History metformin 500 mg tablet,extended 1 tab PO DAILY@1700 04/06/21 03/29/24 03/28/24 History release 24 hr cholecalciferol (vitamin D3) 50 50 mcg PO DAILY 07/19/22 03/29/24 03/28/24 History mcg (2,000 unit) tablet (Vitamin D3) acetaminophen 500 mg tablet 1,000 mg PO Q6H PRN Pain 10/04/23 03/29/24 Unknown History levothyroxine 112 mcg tablet 224 mcg PO SUWE@0600 02/20/24 03/29/24 03/28/24 History pyridoxine (vitamin B6) 50 mg 50 mg PO DAILY 02/20/24 03/29/24 03/28/24 History tablet hydrocodone 5 mg-acetaminophen 325 1 tab PO Q4-6H PRN Pain (Scale 03/29/24 03/29/24 Unknown History mg tablet Score 7-10) levothyroxine 112 mcg tablet 112 mcg PO MOTUTHFRSA@0600 03/29/24 03/29/24 03/27/24 History tramadol 50 mg tablet 50 mg PO BID PRN Pain (Scale Score 03/29/24 03/29/24 Unknown History 4-6) Physical Exam 2 Vital Signs: Vital Signs: Last Vital Signs Temp 98.4 F 03/30/24 05:43 Pulse 74 03/30/24 05:43 Resp 14 03/30/24 05:43 BP 108/40 L 03/30/24 05:43 Pulse Ox 99 03/30/24 05:43 O2 Del Method Room Air 03/30/24 05:43 BMI result Body Mass Index 31.7 Const: General: no acute distress and confusion Nutritional Appearance: w ell nourished Orientation/consciousness: confusion Resp: Effort & Inspection: normal respiratory effort, no audible wheezes and no cough GI: Other: Open wound of the right flank draining purulence discharge. Surrounding erythema. Midline incision and left lower quadrant incision with some areas of discharge Neuro: General: confusion Results Labs 03/30/24 05:48 03/30/24 05:48 Labs: Abnormal lab results 03/29/24 03/29/24 03/30/24 Range/Units 10:13 21:26 02:15 WBC 14.3 H (4.8-10.8) X10*3/uL RBC 3.98 L D (4.20-5.50) X10*6/uL Hgb 10.2 L D (12.0-16.0) g/dl Hct 31.4 L D (37.0-47.0) % MCV 78.9 L (80.0-98.0) fL MCH 25.6 L (27.0-33.0) pg MPV 9.2 L (9.4-12.3) fL Immature Gran % (Auto) 2.9 H (0.0-0.4) % Neut % (Auto) 86.1 H (45-73) % Lymph % (Auto) 5.9 L (20-40) % Lymph # (Auto) 0.9 L (1.2-4.9) X10*3/uL Abs Immat Gran (auto) 0.42 H (0.00-0.03) X10*3/uL Absolute Neuts (auto) 12.3 H (2.0-8.3) x10*3/uL ESR 91 H (0-20) MM/HR VBG HCO3 18 L (22-26) mmol/L Sodium 129 L (135-145) mmol/L Carbon Dioxide 17 L (22-29) mmol/L Anion Gap (12-20) BUN 27 H (9-16) mg/dL Creatinine 1.93 H (0.5-1.4) mg/dL Random Glucose 175 H (60-115) mg/dL Calcium (8.4-10.2) mg/dL AST 49 H (5-31) U/L C-Reactive Protein 13.75 H (< or = 0.50) mg/dL Albumin 3.0 L (3.5-5.0) g/dL Urine Protein 100 (2+) H (Neg-Trace) mg/dL Urine Blood Moderate (2+) H (Negative) Ur Leukocyte Esterase Large (3+) H (Negative) Urine RBC 3-5 H (0-2) /HPF Urine WBC >50 H (0-5) /HPF 03/30/24 Range/Units 05:48 WBC (4.8-10.8) X10*3/uL RBC 3.23 L (4.20-5.50) X10*6/uL Hgb 8.3 L (12.0-16.0) g/dl Hct 25.3 L (37.0-47.0) % MCV 78.3 L (80.0-98.0) fL MCH 25.7 L (27.0-33.0) pg MPV 8.8 L (9.4-12.3) fL Immature Gran % (Auto) (0.0-0.4) % Neut % (Auto) (45-73) % Lymph % (Auto) (20-40) % Lymph # (Auto) (1.2-4.9) X10*3/uL Abs Immat Gran (auto) (0.00-0.03) X10*3/uL Absolute Neuts (auto) (2.0-8.3) x10*3/uL ESR (0-20) MM/HR VBG HCO3 (22-26) mmol/L Sodium 133 L (135-145) mmol/L Carbon Dioxide 19 L (22-29) mmol/L Anion Gap 11 L (12-20) BUN 27 H (9-16) mg/dL Creatinine 1.56 H (0.5-1.4) mg/dL Random Glucose (60-115) mg/dL Calcium 8.0 L D (8.4-10.2) mg/dL AST (5-31) U/L C-Reactive Protein (< or = 0.50) mg/dL Albumin (3.5-5.0) g/dL Urine Protein (Neg-Trace) mg/dL Urine Blood (Negative) Ur Leukocyte Esterase (Negative) Urine RBC (0-2) /HPF Urine WBC (0-5) /HPF Short CBC 03/29/24 03/30/24 Range/Units 10:13 05:48 WBC 14.3 H 7.1 (4.8-10.8) X10*3/uL Hgb 10.2 L D 8.3 L (12.0-16.0) g/dl Hct 31.4 L D 25.3 L (37.0-47.0) % Plt Count 385 D 251 D (160-400) X10*3/uL BMP 03/29/24 03/30/24 10:13 05:48 Sodium 129 L 133 L Potassium 3.5 3.3 Chloride 99 106 Carbon Dioxide 17 L 19 L BUN 27 H 27 H Creatinine 1.93 H 1.56 H Calcium 8.9 8.0 L D Liver Function 03/29/24 Range/Units 10:13 Total Bilirubin 0.6 (0.0-1.0) mg/dL AST 49 H (5-31) U/L ALT 27 (0-31) U/L Alkaline Phosphatase 58 (39-117) U/L Albumin 3.0 L (3.5-5.0) g/dL Urine 03/30/24 Range/Units 02:15 Urine Color Yellow Urine Appearance Turbid Urine pH 6.0 (5.0-9.0) Ur Specific [place] 1.015 (1.005-1.025) Urine Protein 100 (2+) H (Neg-Trace) mg/dL Urine Glucose (UA) Negative (Negative) mg/dL All other labs normal. Assessment and Plan (1) Abscess, retroperitoneal: Status: Acute Plan 79-year-old female patient presenting status post reversal of colostomy now with a right flank abscess in the retroperitoneum which appears to be unrelated to the colon surgery. Patient previously underwent stent placement for staghorn calculus in the right side with previous history of an abscess. Patient awaiting IR drainage. We will follow during this hospitalization. Procedures Date of Service Date of Service: 03/30/24
--- NOTE | 2024-03-30 08:54 | P.CONGS_ITS ---
History of Present Illness Consult details Consult date: 03/30/24 Narrative: [age] year old female who came to the ER last night because of drainage from the right flank area. She says that started about 2-3 days ago. She remembers having a similar episode about 2 years ago. Review of her records show that she had a retroperitoneal abscess on the right side in 2021 and this had been drained by IR. The source was likely from a urologic infection. She had kidney stones then Her CT scan in the ER last night showed what appeared to be a small retroperitoneal collection on the right he had an open tract draining all the way to the flank. She denies any fever or chills. She denies any urinary complaints. She has good GI functions She actually just had a reversal of a colostomy last 02/20/[address] Jimenez. She appears to have been doing well in this regard. Review of Systems 2 Constitutional: Constitutional: Denies chills and Denies fever(s) Cardiovascular: Cardiovascular: Reports dyspnea on exertion Respiratory: Respiratory: Reports dyspnea on exertion Gastrointestinal: Gastrointestinal: Denies vomiting Genitourinary: Genitourinary: Denies difficulty voiding Musculoskeletal: Musculoskeletal: Reports back pain and Reports myalgias PMFSH Past Medical History Medical History Encounter for wheelchair assessment Diverticular disease Major depressive disorder Heel spur Chronic low back pain Uterine cancer Hyperthyroidism Weakness of both lower extremities Hydroureteronephrosis Wound infection Open wound of back, complicated Cellulitis Frequency of urination Vaginal burning Vaginal itching PMB (postmenopausal bleeding) Cirrhosis of liver Does mobilize using walker PONV (postoperative nausea and vomiting) Left foot drop Fatty liver Fibromyalgia Neuropathy RBBB Cholelithiasis Staghorn calculus Renal calculus, bilateral Renal calyceal dilation determined by ultrasound UTI (urinary tract infection) Diabetes mellitus, type II Ganglion cyst Plantar fasciitis Anxiety OA (osteoarthritis) Obstructive airway disease Hypercholesterolemia Low back pain Sciatica Hypothyroidism HTN (hypertension) Primary osteoarthritis of right knee Retained ureteral stent Renal stones Staghorn calculus Perirectal abscess Family History Family History Father Alcohol dependence Mother CHF (congestive heart failure) Cancer of breast Mother No problems noted. Other Alcoholic cirrhosis Substance use disorder Surgical History Surgical History History of colostomy reversal (02/20/24) History of colectomy (~10/06/23) Status post cystoscopy with ureteral stent placement History of lumbar discectomy History of lumpectomy of both breasts History of cystoscopy History of lithotripsy Hx of colonoscopy History of surgery Social History Social History Household Members: Significant Other Housing: House Are you a primary manager urgent care to a significant other at home: No Do you presently have visiting nurse or other home services: Yes (VNA) Alcohol intake: never Comment: wheelchair for long distances Patient Tobacco Use Status: Former Tobacco user Tobacco use type: Cigarette Years Smoked: 27 e-Cigarette/Vaping Use: Never Used Second Hand Smoke Exposure: Yes Use of substances other than those prescribed or required for medical reasons: No Advance Directives: Yes Advance Directives on File: Yes Advance Directives Date on File: 04/06/21 Do you have a plan to hurt others: No Plan Nutrition Risks: No Nutritional Risk service: No Current occupational status: disabled Cognitive needs: Yes (wheelchair) Hearing needs: No Vision needs: Yes (Glasses) Meds Allergies Allergy/AdvReac Type Severity Reaction Status Date / Time chlorpheniramine Allergy Severe HALLUCINATI Verified 03/29/24 09:51 [From TUSSIONEX] ONS ciprofloxacin [From CIPRO] Allergy Severe ANAPHYLAXIS Verified 03/29/24 09:51 escitalopram [ESCITALOPRAM] Allergy Severe DISSOCIATIVE Verified 03/29/24 09:51 REACTION fluoxetine [FLUOXETINE] Allergy Severe DISSOCIATIVE Verified 03/29/24 09:51 REACTION hydrocodone [From TUSSIONEX] Allergy Severe HALLUCINATI Verified 03/29/24 09:51 ONS ibuprofen [IBUPROFEN] Allergy Severe THROAT Verified 03/29/24 09:51 SWELLING Sulfa (Sulfonamide Allergy Severe DYSPNEA Verified 03/29/24 09:51 Antibiotics) [SULFA (SULFONAMIDE ANTIBIOTICS)] clarithromycin [From BIAXIN] Allergy Intermediate ABD.PAIN Verified 03/29/24 09:51 duloxetine [DULOXETINE] Allergy Intermediate FACIAL Verified 03/29/24 09:51 NUMBNESS erythromycin base Allergy Intermediate RASH Verified 03/29/24 09:51 [ERYTHROMYCIN BASE] Penicillins [PENICILLINS] Allergy Intermediate RASH Verified 03/29/24 09:51 tetracycline [TETRACYCLINE] Allergy Intermediate DIARRHEA Verified 03/29/24 09:51 codeine [CODEINE] Allergy Unknown TINNITIS Verified 03/29/24 09:51 guaifenesin Allergy Unknown Unknown Verified 03/29/24 09:51 levofloxacin [From Levaquin] Allergy Unknown Unknown Verified 03/29/24 09:51 pregabalin Allergy Unknown Unknown Verified 03/29/24 09:51 Active Medications: Current Medications Acetaminophen (Acetaminophen 325 Mg Tablet) 650 mg PO Q6H PRN PRN Reason: Pain, Mild 1-3,fever,headache Hydrocodone Bitart/Acetaminophen (Hydrocodone Bit/Acetam 5/325 Tablet) 1 tab PO Q4H PRN PRN Reason: Pain (Scale Score 7-10) Atorvastatin Calcium (Atorvastatin Calcium 10 Mg Tablet) 10 mg PO DAILY [facility] Last Admin: 03/30/24 08:45 Dose: 10 mg Calcium Carbonate (Calcium Carbonate 750 Mg Tab.Chew) 750 mg PO Q4H PRN PRN Reason: Heartburn Ceftriaxone Sodium (Ceftriaxone Sodium 1 Gm Vial) 1 gm IVPUSH Q24H [facility] Dextrose (Dextrose 50 % 25 Gm/50 Ml Syringe) 25 gm IVPUSH Q15M PRN; Protocol PRN Reason: per Hypoglycemia Standing Ord. Glucose (Glucose Gel 15 Gm Gel..Gram.) 15 gm PO Q15M PRN; Protocol PRN Reason: per Hypoglycemia Standing Ord. Vancomycin HCl 750 mg/ Sodium (Chloride) 265 mls @ 265 mls/hr IV Q24H [facility] Lactated Ringer's (Lr) 1,000 mls @ 100 mls/hr IVCONT .Q10H [facility] Stop: 03/30/24 08:59 Last Admin: 03/29/24 23:10 Dose: 100 mls/hr Insulin Human Lispro (Insulin Lispro 100 Unit/Ml 3 Ml Vial) 0 unit SUBCUT QIDACHS [facility]; Protocol Last Admin: 03/30/24 07:26 Dose: Not Given Levothyroxine Sodium (Levothyroxine Sodium 112 Mcg Tablet) 112 mcg PO MOTUTHFRSA@0600 [facility] Last Admin: 03/30/24 07:01 Dose: 112 mcg Levothyroxine Sodium (Levothyroxine Sodium 112 Mcg Tablet) 224 mcg PO SUWE@0600 [facility] Magnesium Hydroxide (Milk Of Magnesia 30 Ml Oral.Susp) 30 ml PO DAILY PRN PRN Reason: Constipation Melatonin (Melatonin 3 Mg Tablet) 6 mg PO BEDTIME PRN PRN Reason: Insomnia Ondansetron HCl (Ondansetron Hcl 4 Mg/2 Ml Vial) 4 mg IVPUSH Q8H PRN PRN Reason: Nausea and Vomiting Pharmacy Consult (Consult Rx Vancomycin Dosing) 1 each MISCELLANE DAILY PRN PRN Reason: Consult order Pyridoxine HCl (Pyridoxine Hcl (Vitamin B6) 50 Mg Tablet) 50 mg PO DAILY [facility] Last Admin: 03/30/24 08:45 Dose: 50 mg Sodium Chloride (0.9 % Sodium Chloride Flush 3 Ml Syringe) 3 ml IVFLUSH QSHIFT [facility] Last Admin: 03/30/24 07:27 Dose: Not Given Tramadol HCl (Tramadol Hcl 50 Mg Tablet) 50 mg PO BID PRN PRN Reason: Pain (Scale Score 4-6) Vitamin D (Cholecalciferol (Vitamin D3) 25 Mcg Tablet) 50 mcg PO DAILY [facility] Last Admin: 03/30/24 08:45 Dose: 50 mcg Home Medications ?Medication ?Instructions ?Recorded ?Confirmed ?Last Taken ?Type atorvastatin 10 mg tablet 10 mg PO DAILY 04/05/21 03/29/24 03/28/24 History metformin 500 mg tablet,extended 1 tab PO DAILY@1700 04/06/21 03/29/24 03/28/24 History release 24 hr cholecalciferol (vitamin D3) 50 50 mcg PO DAILY 07/19/22 03/29/24 03/28/24 History mcg (2,000 unit) tablet (Vitamin D3) acetaminophen 500 mg tablet 1,000 mg PO Q6H PRN Pain 10/04/23 03/29/24 Unknown History levothyroxine 112 mcg tablet 224 mcg PO SUWE@0600 02/20/24 03/29/24 03/28/24 History pyridoxine (vitamin B6) 50 mg 50 mg PO DAILY 02/20/24 03/29/24 03/28/24 History tablet hydrocodone 5 mg-acetaminophen 325 1 tab PO Q4-6H PRN Pain (Scale 03/29/24 03/29/24 Unknown History mg tablet Score 7-10) levothyroxine 112 mcg tablet 112 mcg PO MOTUTHFRSA@0600 03/29/24 03/29/24 03/27/24 History tramadol 50 mg tablet 50 mg PO BID PRN Pain (Scale Score 03/29/24 03/29/24 Unknown History 4-6) Physical Exam 2 Vital Signs: Vital Signs: Last Vital Signs Temp 98.4 F 03/30/24 05:43 Pulse 74 03/30/24 05:43 Resp 14 03/30/24 05:43 BP 108/40 L 03/30/24 05:43 Pulse Ox 99 03/30/24 05:43 O2 Del Method Room Air 03/30/24 05:43 BMI result Body Mass Index 31.7 Const: General: comfortable and no acute distress Nutritional Appearance: o bese Resp: Effort & Inspection: normal respiratory effort Cardio: Rate: regular rate GI: Other: Right flank area with note of an open sinus, not actively draining, some diffuse tenderness in the area Palpation (GI): Soft to palpation, not firm, nontender and no guarding Results Labs 03/30/24 05:48 03/30/24 05:48 Labs: Abnormal lab results 03/29/24 03/29/24 03/30/24 Range/Units 10:13 21:26 02:15 WBC 14.3 H (4.8-10.8) X10*3/uL RBC 3.98 L D (4.20-5.50) X10*6/uL Hgb 10.2 L D (12.0-16.0) g/dl Hct 31.4 L D (37.0-47.0) % MCV 78.9 L (80.0-98.0) fL MCH 25.6 L (27.0-33.0) pg MPV 9.2 L (9.4-12.3) fL Immature Gran % (Auto) 2.9 H (0.0-0.4) % Neut % (Auto) 86.1 H (45-73) % Lymph % (Auto) 5.9 L (20-40) % Lymph # (Auto) 0.9 L (1.2-4.9) X10*3/uL Abs Immat Gran (auto) 0.42 H (0.00-0.03) X10*3/uL Absolute Neuts (auto) 12.3 H (2.0-8.3) x10*3/uL ESR 91 H (0-20) MM/HR VBG HCO3 18 L (22-26) mmol/L Sodium 129 L (135-145) mmol/L Carbon Dioxide 17 L (22-29) mmol/L Anion Gap (12-20) BUN 27 H (9-16) mg/dL Creatinine 1.93 H (0.5-1.4) mg/dL Random Glucose 175 H (60-115) mg/dL Calcium (8.4-10.2) mg/dL AST 49 H (5-31) U/L C-Reactive Protein 13.75 H (< or = 0.50) mg/dL Albumin 3.0 L (3.5-5.0) g/dL Urine Protein 100 (2+) H (Neg-Trace) mg/dL Urine Blood Moderate (2+) H (Negative) Ur Leukocyte Esterase Large (3+) H (Negative) Urine RBC 3-5 H (0-2) /HPF Urine WBC >50 H (0-5) /HPF 03/30/24 Range/Units 05:48 WBC (4.8-10.8) X10*3/uL RBC 3.23 L (4.20-5.50) X10*6/uL Hgb 8.3 L (12.0-16.0) g/dl Hct 25.3 L (37.0-47.0) % MCV 78.3 L (80.0-98.0) fL MCH 25.7 L (27.0-33.0) pg MPV 8.8 L (9.4-12.3) fL Immature Gran % (Auto) (0.0-0.4) % Neut % (Auto) (45-73) % Lymph % (Auto) (20-40) % Lymph # (Auto) (1.2-4.9) X10*3/uL Abs Immat Gran (auto) (0.00-0.03) X10*3/uL Absolute Neuts (auto) (2.0-8.3) x10*3/uL ESR (0-20) MM/HR VBG HCO3 (22-26) mmol/L Sodium 133 L (135-145) mmol/L Carbon Dioxide 19 L (22-29) mmol/L Anion Gap 11 L (12-20) BUN 27 H (9-16) mg/dL Creatinine 1.56 H (0.5-1.4) mg/dL Random Glucose (60-115) mg/dL Calcium 8.0 L D (8.4-10.2) mg/dL AST (5-31) U/L C-Reactive Protein (< or = 0.50) mg/dL Albumin (3.5-5.0) g/dL Urine Protein (Neg-Trace) mg/dL Urine Blood (Negative) Ur Leukocyte Esterase (Negative) Urine RBC (0-2) /HPF Urine WBC (0-5) /HPF Short CBC 03/29/24 03/30/24 Range/Units 10:13 05:48 WBC 14.3 H 7.1 (4.8-10.8) X10*3/uL Hgb 10.2 L D 8.3 L (12.0-16.0) g/dl Hct 31.4 L D 25.3 L (37.0-47.0) % Plt Count 385 D 251 D (160-400) X10*3/uL BMP 03/29/24 03/30/24 10:13 05:48 Sodium 129 L 133 L Potassium 3.5 3.3 Chloride 99 106 Carbon Dioxide 17 L 19 L BUN 27 H 27 H Creatinine 1.93 H 1.56 H Calcium 8.9 8.0 L D Liver Function 03/29/24 Range/Units 10:13 Total Bilirubin 0.6 (0.0-1.0) mg/dL AST 49 H (5-31) U/L ALT 27 (0-31) U/L Alkaline Phosphatase 58 (39-117) U/L Albumin 3.0 L (3.5-5.0) g/dL Urine 03/30/24 Range/Units 02:15 Urine Color Yellow Urine Appearance Turbid Urine pH 6.0 (5.0-9.0) Ur Specific [place] 1.015 (1.005-1.025) Urine Protein 100 (2+) H (Neg-Trace) mg/dL Urine Glucose (UA) Negative (Negative) mg/dL All other labs normal. Laboratory Results WBC 7.1 X10*3/uL (4.8-10.8) 03/30/24 05:48 RBC 3.23 X10*6/uL (4.20-5.50) L 03/30/24 05:48 Hgb 8.3 g/dl (12.0-16.0) L 03/30/24 05:48 Hct 25.3 % (37.0-47.0) L 03/30/24 05:48 MCV 78.3 fL (80.0-98.0) L 03/30/24 05:48 MCH 25.7 pg (27.0-33.0) L 03/30/24 05:48 MCHC 32.8 g/dl (31.0-35.0) 03/30/24 05:48 RDW 15.9 % (11.0-16.0) 03/30/24 05:48 Plt Count 251 X10*3/uL (160-400) D 03/30/24 05:48 MPV 8.8 fL (9.4-12.3) L 03/30/24 05:48 Immature Gran % (Auto) 2.9 % (0.0-0.4) H 03/29/24 10:13 Neut % (Auto) 86.1 % (45-73) H 03/29/24 10:13 Lymph % (Auto) 5.9 % (20-40) L 03/29/24 10:13 [place] % (Auto) 4.9 % (2-11) 03/29/24 10:13 Eos % (Auto) 0.0 % (0-4) 03/29/24 10:13 Baso % (Auto) 0.2 % (0-2) 03/29/24 10:13 Lymph # (Auto) 0.9 X10*3/uL (1.2-4.9) L 03/29/24 10:13 [place] # (Auto) 0.7 X10*3/uL (0.1-1.2) 03/29/24 10:13 Eos # (Auto) 0.0 X10*3/uL (0.0-0.4) 03/29/24 10:13 Baso # (Auto) 0.0 X10*3/uL (0.0-0.2) 03/29/24 10:13 Abs Immat Gran (auto) 0.42 X10*3/uL (0.00-0.03) H 03/29/24 10:13 Absolute Neuts (auto) 12.3 x10*3/uL (2.0-8.3) H 03/29/24 10:13 Absolute Nucleated RBC 0.000 X10*3/uL (0.0-0.012) 03/30/24 05:48 Nucleated RBC % (auto) 0.0 /100WBC (0.0-0.2) 03/30/24 05:48 ESR 91 MM/HR (0-20) H 03/29/24 10:13 VBG pH 7.35 (7.32-7.43) 03/29/24 21: VBG pCO2 33 mmHg 03/29/24 21: VBG pO2 34 mmHg 03/29/24: VBG HCO3 18 mmol/L (22-26) L 03/29/24 21: VBG O2 Saturation 43.0 % 03/29/24 21: VBG Base Excess -5.8 mmol/L 03/29/24 21: Sodium 133 mmol/L (135-145) L 03/30/24 05:48 Potassium 3.3 mmol/L (3.3-5.1) 03/30/24 05:48 Chloride 106 mmol/L (96-108) 03/30/24 05:48 Carbon Dioxide 19 mmol/L (22-29) L 03/30/24 05:48 Anion Gap 11 (12-20) L 03/30/24 05:48 BUN 27 mg/dL (9-16) H 03/30/24 05:48 Creatinine 1.56 mg/dL (0.5-1.4) H 03/30/24 05:48 Estim Creat Clear Calc 30.4 03/30/24 05:48 Estimated GFR 32 03/30/24 05:48 POC Glucose 90 mg/dL (60-115) 03/30/24 07:21 Random Glucose 94 mg/dL (60-115) 03/30/24 05:48 Lactic Acid 1.6 mmol/L (0.5-2.0) 03/29/24 12:42 Calcium 8.0 mg/dL (8.4-10.2) L D 03/30/24 05:48 Total Bilirubin 0.6 mg/dL (0.0-1.0) 03/29/24 10:13 AST 49 U/L (5-31) H 03/29/24 10:13 ALT 27 U/L (0-31) 03/29/24 10:13 Alkaline Phosphatase 58 U/L (39-117) 03/29/24 10:13 C-Reactive Protein 13.75 mg/dL (< or = 0.50) H 03/29/24 10:13 Total Protein 7.8 g/dL (6.5-8.0) 03/29/24 10:13 Albumin 3.0 g/dL (3.5-5.0) L 03/29/24 10:13 Urine Color Yellow 03/30/24 02:15 Urine Appearance Turbid 03/30/24 02:15 Urine pH 6.0 (5.0-9.0) 03/30/24 02:15 Ur Specific [place] 1.015 (1.005-1.025) 03/30/24 02:15 Urine Protein 100 (2+) mg/dL (Neg-Trace) H 03/30/24 02:15 Urine Glucose (UA) Negative mg/dL (Negative) 03/30/24 02:15 Urine Ketones Negative mg/dL (Negative) 03/30/24 02:15 Urine Blood Moderate (2+) (Negative) H 03/30/24 02:15 Urine Nitrite Negative (Negative) 03/30/24 02:15 Ur Leukocyte Esterase Large (3+) (Negative) H 03/30/24 02:15 Urine RBC 3-5 /HPF (0-2) H 03/30/24 02:15 Urine WBC >50 /HPF (0-5) H 03/30/24 02:15 Urine WBC Clumps Present 03/30/24 02:15 Ur Squamous Epith Cells 3-5 /HPF (0-2) 03/30/24 02:15 Urine Bacteria Trace (None Seen) 03/30/24 02:15 Hyaline Casts 11-20 /LPF (0-2) 03/30/24 02:[address] scan report/results: report reviewed and image reviewed CT scan - pelvis: report reviewed and image reviewed Assessment and Plan (1) Abscess, retroperitoneal: Status: Acute She has a draining sinus on the right flank which appears to be from a tract leading into the retroperitoneum suggestive of an iliopsoas abscess. A similar phlegmonous collection is noted on the left. I would recommend consulting IR to see if there is any benefit with IR drainage of this areas. Otherwise, she appears to be non toxic and should be on IV antibiotics for now. The etiology of her retroperitoneal collection is likely urologic as she has had this problem in 2021 as well. Abdominal exam is benign. We will follow along while she is in the hospital. Procedures Date of Service Date of Service: 03/30/24
--- NOTE | 2024-03-30 09:08 | P.EN_ITS ---
Event Note Date of Service: 03/30/24 Event Note: Order for percutaneous drainage of right psoas/retroperitoneal abscess reviewed. Patient has a chronic right retroperitoneal abscess that developed after a urologic procedure in 2021. She had a percutaneous drain placed. 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 This was confirmed by a [place] fistulagram done in April of 2023. She presented to the ED after she developed an episode of a large amount of purulent drainage from her right flank wound, per her health care proxy. CT performed last evening demonstrates the known chronic right retroperitoneal abscess with a clear fistula tract to the skin. On exam, there is minimal drainage from the right flank wound, with a small amount of purulent fluid on her dressing. I spoke with the patient's health care proxy. We discussed that this chronic in fection will continue to drain through her wound, as it has in the past. Another drain can be placed into the small abscess cavity to divert drainage. At this time he requests we hold off on any procedures and allow her to drain through her wound. She has VNA services for wound care from other wounds. Case discussed with Steve who agrees with assessment and plan. [facility] CID Interventional Radiology Time Spent With Patient Time: Total time managing care of this patient today ____ minutes.
--- NOTE | 2024-03-30 09:41 | MHC.CM.PN ---
PT REPORTS SHE LIVES WITH HER S/O, [place] WHO ASSISTS WITH ANYTHING SHE NEEDS SHE HAS A ROLLATOR, W/C, GRAB BARS AND SHOWER CHAIR, SHE ALSO HAS A CANE, BUT DOES NOT USE IT HCP ON FILE PCP: [facility] DELIVERED DCP: HOME, PT STATES SHE IS NOT INTERESTED IN SERVICES [place] TO TRANSPORT
[2024-03-30 11:46] LABS: Glucose, Whole Blood 75 mg/dL (60-115)
[2024-03-30 11:47] VITALS: BP 120/50; PULSE 72; RESP 13; TEMP 36.7; O2SAT 99
--- NOTE | 2024-03-30 14:17 | HO.PM.IMPN ---
Subjective Subjective Date of Service: 03/30/24 Interval History: seen and examined this morning follow up for iliopsoas abscess patient awake alert, has no complaints Review of Systems Review of Systems: Yes all other systems are reviewed and are negative Constitutional Constitutional: Denies chills and Denies fever(s) Cardiovascular Cardiovascular: Denies chest pain, Denies palpitations and Denies dyspnea Respiratory Respiratory: Denies cough and Denies dyspnea Gastrointestinal Gastrointestinal: Denies abdominal pain, Denies nausea and Denies vomiting Endocrine Endocrine: Denies palpitations Physical Exam Vital Signs: Vital Signs: Last Vital Signs Temp 98.1 F 03/30/24 11:47 Pulse 72 03/30/24 11:47 Resp 13 03/30/24 11:47 BP 120/50 L 03/30/24 11:47 Pulse Ox 99 03/30/24 11:47 O2 Del Method Room Air 03/30/24 11:47 BMI result Body Mass Index 31.7 Const: Other: vague re: situation, unsure why she is in the hospital General: cooperative, comfortable, no acute distress, alert and awake Nutritional Appearance: obese Orientation/consciousness: oriented to person and oriented to place Resp: Effort & Inspection: normal respiratory effort, able to speak in complete sentences, no respiratory distress and no use of accessory muscles Cardio: Rate: regular rate GI: Other: see pictures from admission H&P Inspection: No distended Palpation (GI): Soft to palpation Neuro: General: oriented to person, oriented to place, moves all extremities and CN's II-XI intact bilaterally Extrem: General: Yes no pedal edema Objective Data Active Medications Acetaminophen (Acetaminophen 325 Mg Tablet) 650 mg PO Q6H PRN PRN Reason: Pain, Mild 1-3,fever,headache Hydrocodone Bitart/Acetaminophen (Hydrocodone Bit/Acetam 5/325 Tablet) 1 tab PO Q4H PRN PRN Reason: Pain (Scale Score 7-10) Atorvastatin Calcium (Atorvastatin Calcium 10 Mg Tablet) 10 mg PO DAILY [facility] Last Admin: 03/30/24 08:45 Dose: 10 mg Documented By: VALERI Calcium Carbonate (Calcium Carbonate 750 Mg Tab.Chew) 750 mg PO Q4H PRN PRN Reason: Heartburn Ceftriaxone Sodium (Ceftriaxone Sodium 1 Gm Vial) 1 gm IVPUSH Q24H [facility] Dextrose (Dextrose 50 % 25 Gm/50 Ml Syringe) 25 gm IVPUSH Q15M PRN; Protocol PRN Reason: per Hypoglycemia Standing Ord. Glucose (Glucose Gel 15 Gm Gel..Gram.) 15 gm PO Q15M PRN; Protocol PRN Reason: per Hypoglycemia Standing Ord. Vancomycin HCl 750 mg/ Sodium (Chloride) 265 mls @ 265 mls/hr IV Q24H [facility] Insulin Human Lispro (Insulin Lispro 100 Unit/Ml 3 Ml Vial) 0 unit SUBCUT QIDACHS [facility]; Protocol Last Admin: 03/30/24 11:43 Dose: Not Given Documented By: VALERI Non-Admin Reason: poc-75 Levothyroxine Sodium (Levothyroxine Sodium 112 Mcg Tablet) 112 mcg PO MOTUTHFRSA@0600 [facility] Last Admin: 03/30/24 07:01 Dose: 112 mcg Documented By: YESICA Levothyroxine Sodium (Levothyroxine Sodium 112 Mcg Tablet) 224 mcg PO SUWE@0600 [facility] Magnesium Hydroxide (Milk Of Magnesia 30 Ml Oral.Susp) 30 ml PO DAILY PRN PRN Reason: Constipation Melatonin (Melatonin 3 Mg Tablet) 6 mg PO BEDTIME PRN PRN Reason: Insomnia Ondansetron HCl (Ondansetron Hcl 4 Mg/2 Ml Vial) 4 mg IVPUSH Q8H PRN PRN Reason: Nausea and Vomiting Pharmacy Consult (Consult Rx Vancomycin Dosing) 1 each MISCELLANE DAILY PRN PRN Reason: Consult order Pyridoxine HCl (Pyridoxine Hcl (Vitamin B6) 50 Mg Tablet) 50 mg PO DAILY [facility] Last Admin: 03/30/24 08:45 Dose: 50 mg Documented By: VALERI Sodium Chloride (0.9 % Sodium Chloride Flush 3 Ml Syringe) 3 ml IVFLUSH QSHIFT [facility] Last Admin: 03/30/24 07:27 Dose: Not Given Documented By: VALERI Non-Admin Reason: IV Running Tramadol HCl (Tramadol Hcl 50 Mg Tablet) 50 mg PO BID PRN PRN Reason: Pain (Scale Score 4-6) Vitamin D (Cholecalciferol (Vitamin D3) 25 Mcg Tablet) 50 mcg PO DAILY [facility] Last Admin: 03/30/24 08:45 Dose: 50 mcg Documented By: VALERI Labs 03/30/24 05:48 03/30/24 05:48 Labs: Laboratory Results - last 24 hr 03/29/24 03/30/24 03/30/24 21:26 02:15 05:48 MCV 78.3 L MCH 25.7 L MCHC 32.8 RDW 15.9 Plt Count 251 D MPV 8.8 L Absolute Nucleated RBC 0.000 Nucleated RBC % (auto) 0.0 VBG pH 7.35 VBG pCO2 33 VBG pO2 34 VBG HCO3 18 L VBG O2 Saturation 43.0 VBG Base Excess -5.8 Anion Gap 11 L Estim Creat Clear Calc 30.4 Estimated GFR 32 POC Glucose Random Glucose 94 Calcium 8.0 L D Urine Color Yellow Urine Appearance Turbid Urine pH 6.0 Ur Specific [place] 1.015 Urine Protein 100 (2+) H Urine Glucose (UA) Negative Urine Ketones Negative Urine Blood Moderate (2+) H Urine Nitrite Negative Ur Leukocyte Esterase Large (3+) H Urine RBC 3-5 H Urine WBC >50 H Urine WBC Clumps Present Ur Squamous Epith Cells 3-5 Urine Bacteria Trace Hyaline Casts 11-03/30/24 03/30/24 07:21 11:40 MCV MCH MCHC RDW Plt Count MPV Absolute Nucleated RBC Nucleated RBC % (auto) VBG pH VBG pCO2 VBG pO2 VBG HCO3 VBG O2 Saturation VBG Base Excess Anion Gap Estim Creat Clear Calc Estimated GFR POC Glucose 90 75 Random Glucose Calcium Urine Color Urine Appearance Urine pH Ur Specific [place] Urine Protein Urine Glucose (UA) Urine Ketones Urine Blood Urine Nitrite Ur Leukocyte Esterase Urine RBC Urine WBC Urine WBC Clumps Ur Squamous Epith Cells Urine Bacteria Hyaline Casts Microbiology Microbiology Results: Microbiology 03/29/24 17:31 Gram Stain - Final Flank Routine Culture - Preliminary Culture in progress. 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 No sepsis will continue IV antibiotics for now ceftriaxone and vancomycin, started 03/29/2024 d/w IR - chronic infection will continue to drain through her wound, as it has in the past. Another drain can be placed into the small abscess cavity to divert drainage. per IR HCP requests we hold off on any procedures and allow her to drain through her wound seen by General surgery urology consult pending Follow wound and blood cultures Question of encephalopathy seems like pt is at baseline mental status FELICITA Patient's creatinine 1.93 at time of presentation, elevated from 1.40 on 02/25/2024 Likely secondary to reduced p.o. intake as well as continued diuretic use Pt received IVF in the ED Will place on maintenance fluids Hold lisinopril and Lasix Hypotension Patient's BP as low as 77/50, currently 116/44 after IVF Likely secondary to reduced p.o. intake and continued diuretic use Pt received IVF in the ED Will place on maintenance fluids Hold lisinopril bp stable thus far Hyponatremia improved to 133 Likely secondary to reduced p.o. intake and continued diuretic use Pt given IVF in the ED Hold Lasix Follow sodium chronic normocytic anemia drop in H/H overnight likely dilutional from IVF as drop in all cell lines H/H today more c/w pt baseline H/H no evidence of acute blood loss Izc-fknyabr-aaitoayry type [address] on sliding scale insulin Diabetic diet Hypothyroidism Continue levothyroxine Full Code DVT Prophylaxis: Pneumatic compression due to possible surgical procedure Pt will require a hospitalization of at least two nights for treatment of?FELICITA in the setting of iliopsoas abscess. Pt will require hospital level care for administration of IV antibiotics, IV fluids, and specialist consultation with General surgery with likely surgical procedure to drain abscess. Quality Stroke Does the patient have a stroke diagnosis?: No VTE Prior VTE?: No VTE Risk Level:: Medical - moderate - high VTE Device Contraindication: N/A - Device Ordered VTE Drug Contraindication: Treatment Not Indicated
[2024-03-30] MEDS: cefTRIAXone sodium 1 GM VIAL IVPUSH (17:43)
[2024-03-30] MEDS: 0.9 % Sodium Chloride Flush 3 ML SYRINGE IVFLUSH ×2 (17:44→19:54)
[2024-03-30 18:11] VITALS: BP 126/60; PULSE 74; RESP 16; TEMP 36.4; O2SAT 100
[2024-03-30 18:14] LABS: Glucose, Whole Blood 105 mg/dL (60-115)
[2024-03-30] MEDS: vancomycin HCL 750 MG in 0.9 % Sodium Chloride 250 ML 265 MG IV (18:22)
--- NOTE | 2024-03-30 18:28 | P.CNUR_ITS ---
History of Present Illness Consult details Consult date: 03/30/24 Narrative: Xi is a 79 year old female with history of right staghorn calculus approximately 4 cm in right kidney lower pole. She is status post ureteroscopy laser lithotripsy in 2021. She had hospitalization for retroperitoneal abscess, s/p IR drain. She is status post right ureteral stent in 2023 which is in good position, noted on recent CT scan. She has a cutaneous fistula. She was admitted with complains of pus draining from right flank and fever. On exam today, pt states pain is improved, evaluation of skin, no evidence of cellulitis. Review of Systems 2 Review of Systems: Yes all other systems are reviewed and are negative Constitutional: Constitutional: Reports no additional constitutional complaints Eyes: Eyes: Reports no additional eye complaints ENT: Reports system reviewed and no additional complaints, except as documented Cardiovascular: Cardiovascular: Reports no additional cardiovascular complaints Respiratory: Respiratory: Reports no additional respiratory complaints Gastrointestinal: Gastrointestinal: Reports no additional gastrointestinal complaints Genitourinary: Genitourinary: Reports as per HPI Musculoskeletal: Musculoskeletal: Reports no additional musculoskeletal complaints Integumentary/Breasts: Skin/Breast: Reports system reviewed and no additional complaints, except as docu Neurologic: Reports system reviewed and no additional complaints, except as documented Psychiatric: Psychiatric: Reports no additional psychiatric complaints Endocrine: Endocrine: Reports no additional endocrine complaints Hematologic/Lymphatic: Hematologic/Lymphatic: Reports no additional hematologic/lymphatic complaints Allergic/Immunologic: Allergic/Immunologic: Reports no additional allergic/immunologic complaints PMFSH Past Medical History Medical History Encounter for wheelchair assessment Diverticular disease Major depressive disorder Heel spur Chronic low back pain Uterine cancer Hyperthyroidism Weakness of both lower extremities Hydroureteronephrosis Wound infection Open wound of back, complicated Cellulitis Frequency of urination Vaginal burning Vaginal itching PMB (postmenopausal bleeding) Cirrhosis of liver Does mobilize using walker PONV (postoperative nausea and vomiting) Left foot drop Fatty liver Fibromyalgia Neuropathy RBBB Cholelithiasis Staghorn calculus Renal calculus, bilateral Renal calyceal dilation determined by ultrasound UTI (urinary tract infection) Diabetes mellitus, type II Ganglion cyst Plantar fasciitis Anxiety OA (osteoarthritis) Obstructive airway disease Hypercholesterolemia Low back pain Sciatica Hypothyroidism HTN (hypertension) Primary osteoarthritis of right knee Retained ureteral stent Renal stones Staghorn calculus Perirectal abscess Family History Family History Father Alcohol dependence Mother CHF (congestive heart failure) Cancer of breast Mother No problems noted. Other Alcoholic cirrhosis Substance use disorder Surgical History Surgical History History of colostomy reversal (02/20/24) History of colectomy (~10/06/23) Status post cystoscopy with ureteral stent placement History of lumbar discectomy History of lumpectomy of both breasts History of cystoscopy History of lithotripsy Hx of colonoscopy History of surgery Social History Social History Household Members: Significant Other Housing: House Are you a primary progressive care nurse to a significant other at home: No Do you presently have visiting nurse or other home services: Yes 75 years or older and lives alone: No Alcohol intake: never Comment: wheelchair for long distances Patient Tobacco Use Status: Former Tobacco user Tobacco use type: Cigarette Years Smoked: 27 e-Cigarette/Vaping Use: Never Used Second Hand Smoke Exposure: Yes Advance Directives Date on File: 04/06/21 service: No Current occupational status: disabled Cognitive needs: Yes (wheelchair) Hearing needs: No Vision needs: Yes (Glasses) Meds Allergies Allergy/AdvReac Type Severity Reaction Status Date / Time chlorpheniramine Allergy Severe HALLUCINATI Verified 03/29/24 09:51 [From TUSSIONEX] ONS ciprofloxacin [From CIPRO] Allergy Severe ANAPHYLAXIS Verified 03/29/24 09:51 escitalopram [ESCITALOPRAM] Allergy Severe DISSOCIATIVE Verified 03/29/24 09:51 REACTION fluoxetine [FLUOXETINE] Allergy Severe DISSOCIATIVE Verified 03/29/24 09:51 REACTION hydrocodone [From TUSSIONEX] Allergy Severe HALLUCINATI Verified 03/29/24 09:51 ONS ibuprofen [IBUPROFEN] Allergy Severe THROAT Verified 03/29/24 09:51 SWELLING Sulfa (Sulfonamide Allergy Severe DYSPNEA Verified 03/29/24 09:51 Antibiotics) [SULFA (SULFONAMIDE ANTIBIOTICS)] clarithromycin [From BIAXIN] Allergy Intermediate ABD.PAIN Verified 03/29/24 09:51 duloxetine [DULOXETINE] Allergy Intermediate FACIAL Verified 03/29/24 09:51 NUMBNESS erythromycin base Allergy Intermediate RASH Verified 03/29/24 09:51 [ERYTHROMYCIN BASE] Penicillins [PENICILLINS] Allergy Intermediate RASH Verified 03/29/24 09:51 tetracycline [TETRACYCLINE] Allergy Intermediate DIARRHEA Verified 03/29/24 09:51 codeine [CODEINE] Allergy Unknown TINNITIS Verified 03/29/24 09:51 guaifenesin Allergy Unknown Unknown Verified 03/29/24 09:51 levofloxacin [From Levaquin] Allergy Unknown Unknown Verified 03/29/24 09:51 pregabalin Allergy Unknown Unknown Verified 03/29/24 09:51 Active Medications: Current Medications Acetaminophen (Acetaminophen 325 Mg Tablet) 650 mg PO Q6H PRN PRN Reason: Pain, Mild 1-3,fever,headache Hydrocodone Bitart/Acetaminophen (Hydrocodone Bit/Acetam 5/325 Tablet) 1 tab PO Q4H PRN PRN Reason: Pain (Scale Score 7-10) Atorvastatin Calcium (Atorvastatin Calcium 10 Mg Tablet) 10 mg PO DAILY [facility] Last Admin: 03/30/24 08:45 Dose: 10 mg Calcium Carbonate (Calcium Carbonate 750 Mg Tab.Chew) 750 mg PO Q4H PRN PRN Reason: Heartburn Ceftriaxone Sodium (Ceftriaxone Sodium 1 Gm Vial) 1 gm IVPUSH Q24H [facility] Last Admin: 03/30/24 17:43 Dose: 1 gm Dextrose (Dextrose 50 % 25 Gm/50 Ml Syringe) 25 gm IVPUSH Q15M PRN; Protocol PRN Reason: per Hypoglycemia Standing Ord. Glucose (Glucose Gel 15 Gm Gel..Gram.) 15 gm PO Q15M PRN; Protocol PRN Reason: per Hypoglycemia Standing Ord. Vancomycin HCl 750 mg/ Sodium (Chloride) 265 mls @ 265 mls/hr IV Q24H [facility] Last Admin: 03/30/24 18:22 Dose: 265 mls/hr Insulin Human Lispro (Insulin Lispro 100 Unit/Ml 3 Ml Vial) 0 unit SUBCUT QIDACHS [facility]; Protocol Last Admin: 03/30/24 18:12 Dose: Not Given Levothyroxine Sodium (Levothyroxine Sodium 112 Mcg Tablet) 112 mcg PO MOTUTHFRSA@0600 [facility] Last Admin: 03/30/24 07:01 Dose: 112 mcg Levothyroxine Sodium (Levothyroxine Sodium 112 Mcg Tablet) 224 mcg PO SUWE@0600 [facility] Magnesium Hydroxide (Milk Of Magnesia 30 Ml Oral.Susp) 30 ml PO DAILY PRN PRN Reason: Constipation Melatonin (Melatonin 3 Mg Tablet) 6 mg PO BEDTIME PRN PRN Reason: Insomnia Ondansetron HCl (Ondansetron Hcl 4 Mg/2 Ml Vial) 4 mg IVPUSH Q8H PRN PRN Reason: Nausea and Vomiting Pharmacy Consult (Consult Rx Vancomycin Dosing) 1 each MISCELLANE DAILY PRN PRN Reason: Consult order Pyridoxine HCl (Pyridoxine Hcl (Vitamin B6) 50 Mg Tablet) 50 mg PO DAILY [facility] Last Admin: 03/30/24 08:45 Dose: 50 mg Sodium Chloride (0.9 % Sodium Chloride Flush 3 Ml Syringe) 3 ml IVFLUSH QSHIFT [facility] Last Admin: 03/30/24 17:44 Dose: 3 ml Tramadol HCl (Tramadol Hcl 50 Mg Tablet) 50 mg PO BID PRN PRN Reason: Pain (Scale Score 4-6) Vitamin D (Cholecalciferol (Vitamin D3) 25 Mcg Tablet) 50 mcg PO DAILY [facility] Last Admin: 03/30/24 08:45 Dose: 50 mcg Home Medications ?Medication ?Instructions ?Recorded ?Confirmed ?Last Taken ?Type atorvastatin 10 mg tablet 10 mg PO DAILY 04/05/21 03/29/24 03/28/24 History metformin 500 mg tablet,extended 1 tab PO DAILY@1700 04/06/21 03/29/24 03/28/24 History release 24 hr cholecalciferol (vitamin D3) 50 50 mcg PO DAILY 07/19/22 03/29/24 03/28/24 History mcg (2,000 unit) tablet (Vitamin D3) acetaminophen 500 mg tablet 1,000 mg PO Q6H PRN Pain 10/04/23 03/29/24 Unknown History levothyroxine 112 mcg tablet 224 mcg PO SUWE@0600 02/20/24 03/29/24 03/28/24 History pyridoxine (vitamin B6) 50 mg 50 mg PO DAILY 02/20/24 03/29/24 03/28/24 History tablet hydrocodone 5 mg-acetaminophen 325 1 tab PO Q4-6H PRN Pain (Scale 03/29/24 03/29/24 Unknown History mg tablet Score 7-10) levothyroxine 112 mcg tablet 112 mcg PO MOTUTHFRSA@0600 03/29/24 03/29/24 03/27/24 History tramadol 50 mg tablet 50 mg PO BID PRN Pain (Scale Score 03/29/24 03/29/24 Unknown History 4-6) Physical Exam 2 Vital Signs: Vital Signs: Last Vital Signs Temp 97.5 F 03/30/24 18:11 Pulse 74 03/30/24 18:11 Resp 16 03/30/24 18:11 BP 126/60 03/30/24 18:11 Pulse Ox 100 03/30/24 18:11 O2 Del Method Room Air 03/30/24 18:11 BMI result Body Mass Index 31.7 Const: General: cooperative, healthy appearing and no acute distress O rientation/consciousness: patient oriented x3 HEENT: Head: Yes normal to inspection, Yes normocephalic and Yes atraumatic Eyes: Conjunctivae: conjunctivae normal Neck: Neck: Yes normal visual inspection and Yes trachea midline Chest: Chest palpation & inspection: normal inspection of the chest Resp: Effort & Inspection: normal respiratory effort Cardio: Rate: regular rate GI: Inspection: Yes normal to inspection Palpation (GI): Soft to palpation Skin: Other: right flank, drainage noted, skin, no evidence of cellulitis. Neuro: General: patient oriented x3 Psych: Appearance: grossly normal Results Labs 03/31/24 07:15 03/31/24 07:15 Labs: Abnormal lab results 03/29/24 03/30/24 03/30/24 Range/Units 21:26 02:15 05:48 RBC 3.23 L (4.20-5.50) X10*6/uL Hgb 8.3 L (12.0-16.0) g/dl Hct 25.3 L (37.0-47.0) % MCV 78.3 L (80.0-98.0) fL MCH 25.7 L (27.0-33.0) pg MPV 8.8 L (9.4-12.3) fL VBG HCO3 18 L (22-26) mmol/L Sodium 133 L (135-145) mmol/L Carbon Dioxide 19 L (22-29) mmol/L Anion Gap 11 L (12-20) BUN 27 H (9-16) mg/dL Creatinine 1.56 H (0.5-1.4) mg/dL Calcium 8.0 L D (8.4-10.2) mg/dL Urine Protein 100 (2+) H (Neg-Trace) mg/dL Urine Blood Moderate (2+) H (Negative) Ur Leukocyte Esterase Large (3+) H (Negative) Urine RBC 3-5 H (0-2) /HPF Urine WBC >50 H (0-5) /HPF Short CBC 03/30/24 Range/Units 05:48 WBC 7.1 (4.8-10.8) X10*3/uL Hgb 8.3 L (12.0-16.0) g/dl Hct 25.3 L (37.0-47.0) % Plt Count 251 D (160-400) X10*3/uL BMP 03/30/24 05:48 Sodium 133 L Potassium 3.3 Chloride 106 Carbon Dioxide 19 L BUN 27 H Creatinine 1.56 H Calcium 8.0 L D Urine 03/30/24 Range/Units 02:15 Urine Color Yellow Urine Appearance Turbid Urine pH 6.0 (5.0-9.0) Ur Specific [employer] 1.015 (1.005-1.025) Urine Protein 100 (2+) H (Neg-Trace) mg/dL Urine Glucose (UA) Negative (Negative) mg/dL Imaging Additional studies: Date of Service: 03/29/24 CLINICAL HISTORY: right flank wound CT abdomen and pelvis without contrast Comparison: CT of the abdomen and pelvis from 10/03/2023 Findings: No consolidation of the imaged lung bases. Mild ground-glass may reflect mild pneumonitis in the partially imaged right hilar region. Fluid and gas may reflect phlegmonous change or small abscess in the right retroperitoneal region inferior to right 12th rib, extending from the lateral margin of the right iliopsoas musculature, extending inferiorly to the superior margin of the right iliac wing. This fluid extends laterally to the right lateral dorsal abdominal wall measuring 1.9 x 3.2 x 3.8 cm. Associated gas may be postprocedural, post sampling, or related to gas forming organisms. Additional superficial gas extends superiorly-laterally to right skin surface where skin thickening of the likely cellulitis is present. Redemonstration of multiple [id number] nephrolithiasis of the right kidney measuring up to 1.7 cm with right-sided ureteral stent in place. Nonobstructing nephrolithiasis of the left kidney measure up to 0.8 cm. No left-sided hydronephrosis. Moderate wall thickening of the urinary bladder is nonspecific. Liver surface nodularity of cirrhosis, in this noncontrast study. Multifocal cholelithiasis measuring up to 2 cm diameter. The adrenal glands are normal. Spleen is mildly enlarged. Mild volume loss of the pancreas noted. Mild additional free fluid in the abdomen pelvis may be infectious/inflammatory with likely mild sigmoid colitis given wall thickening of the sigmoid colon adjacent stranding. Left anterior abdominal wall fluid and likely phlegmonous change measures 1.3 x 4.3 cm with associated gas. No small bowel obstruction. The appendix is within normal limits. Calcified and noncalcified plaque including the aorta and its branches. Small mesenteric periaortic, and left iliac lymph nodes are likely reactive. Mild deformities of the pelvis appear old chronic. Degenerative changes of the hips, SI joints, and spine; with multifocal facet arthropathy. Vacuum disc phenomena is also likely multifocal. Lucency at L2 likely due to hemangioma. Mild retrolisthesis at L1-L2 with mild spinal stenosis by CT. IMPRESSION: 1. Right dorsal lateral fluid collection extends laterally from right iliopsoas musculature measuring up to 3.8 cm concerning for abscess in this noncontrast study. 2. Left ventral phlegmonous change and/or drained fluid collection measures up to 4.3 cm. 3. Additional fluid includes free fluid in the pelvis concerning for sigmoid colitis. 4. Cholelithiasis. 5. Right-sided nephrolithiasis with right-sided ureteral stent in place. Assessment and Plan (1) Abscess: Status: Acute (2) Staghorn calculus: Status: Acute (3) Ureteral stent present: Status: Acute Plan Retroperitoneal abscess, right ureteral stent in good position, no hydro pt states right sided pain improved since receiving IV abx IR to evaluate for further drainage outpatient follow up Procedures Date of Service Date of Service: 03/31/24
[2024-03-30 19:41] VITALS: BP 113/53; PULSE 73; RESP 18; TEMP 36.4; O2SAT 100
[2024-03-30 20:05] LABS: Glucose, Whole Blood 117 mg/dL (60-115)
--- NOTE | 2024-03-31 | MHC.PIE ---
p; pt c/o diarrhea/loose stool, pt reports diarrhea started yesterday. 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 i; dr webster notified. new order cdiff test now e; pt educated on need for test, hat placed in bathroom, will cont to monitor
[2024-03-31] MEDS: Acetaminophen 325 MG TABLET 650 MG PO (03:33)
[2024-03-31 03:51] VITALS: BP 110/51; PULSE 76; RESP 18; TEMP 36.6; O2SAT 99
[2024-03-31 04:57] LABS: CDiff Gene PCR NEGATIVE (Negative)
[2024-03-31] MEDS: Levothyroxine Sodium 112 MCG TABLET PO (05:50)
[2024-03-31 07:04] VITALS: BP 108/55; PULSE 69; RESP 16; TEMP 36.8; O2SAT 99
[2024-03-31 07:35] LABS: Glucose, Whole Blood 97 mg/dL (60-115)
[2024-03-31 07:40] LABS: Anion Gap 11 (12-20); Blood Urea Nitrogen 23 mg/dL (9-16); Calcium 8.6 mg/dL (8.4-10.2); Carbon Dioxide 19 mmol/L (22-29); Chloride 108 mmol/L (96-108); Creatinine Clr Calc Pharmacy 36.3; Estimated Glomerular Filt Rate 39; Glucose Random 98 mg/dL (60-115); Potassium 3.5 mmol/L (3.3-5.1); Sodium 134 mmol/L (135-145)
[2024-03-31 07:42] LABS: Hematocrit 26.7 % (37.0-47.0); Hemoglobin 8.5 g/dl (12.0-16.0); Mean Corpuscular HGB Conc 31.8 g/dl (31.0-35.0); Mean Corpuscular Hemoglobin 25.5 pg (27.0-33.0); Mean Corpuscular Volume 80.2 fL (80.0-98.0); Platelet Count 262 X10*3/uL (160-400); Red Blood Count 3.33 X10*6/uL (4.20-5.50); White Blood Count 7.6 X10*3/uL (4.8-10.8)
[2024-03-31] MEDS: Cholecalciferol (Vitamin D3) 25 MCG TABLET 50 MCG PO (08:47)
[2024-03-31] MEDS: Pyridoxine HCl (Vitamin B6) 50 MG TABLET PO (08:47)
[2024-03-31] MEDS: Atorvastatin Calcium 10 MG TABLET PO (08:47)
[2024-03-31] MEDS: 0.9 % Sodium Chloride Flush 3 ML SYRINGE IVFLUSH ×3 (08:49→20:54)
--- NOTE | 2024-03-31 09:41 | P.PNGS_ITS ---
Subjective Subjective Date of Service: 03/31/24 Interval history: No new complaints Says she still has some occasional drainage from the right flank wound but this has decreased significantly No fever No GI complaints Physical Exam 2 Vital Signs: Vital Signs: Last Vital Signs Temp 98.2 F 03/31/24 07:04 Pulse 69 03/31/24 07:04 Resp 16 03/31/24 07:04 BP 108/55 L 03/31/24 07:04 Pulse Ox 99 03/31/24 07:04 O2 Del Method Room Air 03/31/24 07:04 BMI result Body Mass Index 31.7 Const: General: comfortable and no acute distress Nutritional Appearance: o bese Resp: Effort & Inspection: normal respiratory effort Cardio: Rate: regular rate GI: Palpation (GI): Soft to palpation Back/Spine/Pelvis: Other: Small sinus in the right flank, dry Objective Data Active Medications Acetaminophen (Acetaminophen 325 Mg Tablet) 650 mg PO Q6H PRN PRN Reason: Pain, Mild 1-3,fever,headache Last Admin: 03/31/24 03:33 Dose: 650 mg Documented By: RUFUS Hydrocodone Bitart/Acetaminophen (Hydrocodone Bit/Acetam 5/325 Tablet) 1 tab PO Q4H PRN PRN Reason: Pain (Scale Score 7-10) Atorvastatin Calcium (Atorvastatin Calcium 10 Mg Tablet) 10 mg PO DAILY [facility] Last Admin: 03/31/24 08:47 Dose: 10 mg Documented By: DAVE Calcium Carbonate (Calcium Carbonate 750 Mg Tab.Chew) 750 mg PO Q4H PRN PRN Reason: Heartburn Ceftriaxone Sodium (Ceftriaxone Sodium 1 Gm Vial) 1 gm IVPUSH Q24H [facility] Last Admin: 03/30/24 17:43 Dose: 1 gm Documented By: VALERI Dextrose (Dextrose 50 % 25 Gm/50 Ml Syringe) 25 gm IVPUSH Q15M PRN; Protocol PRN Reason: per Hypoglycemia Standing Ord. Glucose (Glucose Gel 15 Gm Gel..Gram.) 15 gm PO Q15M PRN; Protocol PRN Reason: per Hypoglycemia Standing Ord. Vancomycin HCl 750 mg/ Sodium (Chloride) 265 mls @ 265 mls/hr IV Q24H [facility] Last Infusion: 03/30/24 19:55 Dose: Infused Documented By: RUFUS Insulin Human Lispro (Insulin Lispro 100 Unit/Ml 3 Ml Vial) 0 unit SUBCUT QIDACHS [facility]; Protocol Last Admin: 03/31/24 07:48 Dose: Not Given Documented By: DAVE Non-Admin Reason: No Insulin Coverage Levothyroxine Sodium (Levothyroxine Sodium 112 Mcg Tablet) 112 mcg PO MOTUTHFRSA@0600 [facility] Last Admin: 03/31/24 05:50 Dose: 112 mcg Documented By: RUFUS Levothyroxine Sodium (Levothyroxine Sodium 112 Mcg Tablet) 224 mcg PO SUWE@0600 [facility] Magnesium Hydroxide (Milk Of Magnesia 30 Ml Oral.Susp) 30 ml PO DAILY PRN PRN Reason: Constipation Melatonin (Melatonin 3 Mg Tablet) 6 mg PO BEDTIME PRN PRN Reason: Insomnia Ondansetron HCl (Ondansetron Hcl 4 Mg/2 Ml Vial) 4 mg IVPUSH Q8H PRN PRN Reason: Nausea and Vomiting Pharmacy Consult (Consult Rx Vancomycin Dosing) 1 each MISCELLANE DAILY PRN PRN Reason: Consult order Pyridoxine HCl (Pyridoxine Hcl (Vitamin B6) 50 Mg Tablet) 50 mg PO DAILY [facility] Last Admin: 03/31/24 08:47 Dose: 50 mg Documented By: DAVE Sodium Chloride (0.9 % Sodium Chloride Flush 3 Ml Syringe) 3 ml IVFLUSH QSHIFT [facility] Last Admin: 03/31/24 08:49 Dose: 3 ml Documented By: DAVE Tramadol HCl (Tramadol Hcl 50 Mg Tablet) 50 mg PO BID PRN PRN Reason: Pain (Scale Score 4-6) Vitamin D (Cholecalciferol (Vitamin D3) 25 Mcg Tablet) 50 mcg PO DAILY [facility] Last Admin: 03/31/24 08:47 Dose: 50 mcg Documented By: DAVE Labs 03/31/24 07:15 03/31/24 07:15 Labs: Laboratory Results - last 24 hr 03/30/24 03/30/24 03/30/24 11:40 18:05 19:43 MCV MCH MCHC RDW Plt Count MPV Absolute Nucleated RBC Nucleated RBC % (auto) Anion Gap Estim Creat Clear Calc Estimated GFR POC Glucose 75 105 117 H Random Glucose Calcium C. difficile Tox B Gene 03/31/24 03/31/24 03/31/24 04:01 07:07 07:15 MCV 80.2 MCH 25.5 L MCHC 31.8 RDW 16.0 Plt Count 262 MPV 9.0 L Absolute Nucleated RBC 0.000 Nucleated RBC % (auto) 0.0 Anion Gap 11 L Estim Creat Clear Calc 36.3 Estimated GFR 39 POC Glucose 97 Random Glucose 98 Calcium 8.6 D C. difficile Tox B Gene NEGATIVE Microbiology Microbiology Results: Microbiology 03/29/24 15:36 Blood Culture - Preliminary Blood - Venous No growth after 24 hours. 03/29/24 12:42 Blood Culture - Preliminary Blood - Venous No growth after 24 hours. 03/29/24 17:31 Gram Stain - Final Flank Routine Culture - Preliminary Culture in progress. Procedures Date of Service Date of Service: 03/31/24 Progress Note: A&P Assessment and plan (1) Abscess, retroperitoneal: Status: Acute Assessment and Plan: Spontaneously draining Likely from urologic etiology with her stones No IR drainage necessary Wound care Oral antibiotics Okay to DC home Time Spent With Patient Time: Total time managing care of this patient today ____ minutes. Quality Stroke Does the patient have a stroke diagnosis?: No VTE Prior VTE?: No VTE Risk Level:: Medical - moderate - high VTE Device Contraindication: N/A - Device Ordered VTE Drug Contraindication: Treatment Not Indicated
[2024-03-31 11:19] LABS: Glucose, Whole Blood 121 mg/dL (60-115)
--- NOTE | 2024-03-31 11:55 | HO.PM.IMPN ---
Subjective Subjective Date of Service: 03/31/24 Interval History: Seen and examined this morning Follow-up for retroperitoneal abscess, right flank wound No abdominal pain Review of Systems Review of Systems: Yes all other systems are reviewed and are negative Constitutional Constitutional: Denies chills and Denies fever(s) Cardiovascular Cardiovascular: Denies chest pain, Denies palpitations and Denies dyspnea Respiratory Respiratory: Denies cough and Denies dyspnea Gastrointestinal Gastrointestinal: Denies abdominal pain Endocrine Endocrine: Denies palpitations Physical Exam Vital Signs: Vital Signs: Last Vital Signs Temp 98.2 F 03/31/24 07:04 Pulse 69 03/31/24 07:04 Resp 16 03/31/24 07:04 BP 108/55 L 03/31/24 07:04 Pulse Ox 99 03/31/24 07:04 O2 Del Method Room Air 03/31/24 07:04 BMI result Body Mass Index 31.7 Const: General: cooperative, comfortable, no acute distress, alert and awake Nutritional Appearance: obese Orientation/consciousness: oriented to person and oriented to place Resp: Effort & Inspection: normal respiratory effort, able to speak in complete sentences, no respiratory distress and no use of accessory muscles Cardio: Rate: regular rate GI: Inspection: No distended Palpation (GI): Soft to palpation Neuro: General: oriented to person, oriented to place, moves all extremities and CN's II-XI intact bilaterally Extrem: General: Yes no pedal edema Objective Data Active Medications Acetaminophen (Acetaminophen 325 Mg Tablet) 650 mg PO Q6H PRN PRN Reason: Pain, Mild 1-3,fever,headache Last Admin: 03/31/24 03:33 Dose: 650 mg Documented By: RUFUS Hydrocodone Bitart/Acetaminophen (Hydrocodone Bit/Acetam 5/325 Tablet) 1 tab PO Q4H PRN PRN Reason: Pain (Scale Score 7-10) Atorvastatin Calcium (Atorvastatin Calcium 10 Mg Tablet) 10 mg PO DAILY [facility] Last Admin: 03/31/24 08:47 Dose: 10 mg Documented By: DAVE Calcium Carbonate (Calcium Carbonate 750 Mg Tab.Chew) 750 mg PO Q4H PRN PRN Reason: Heartburn Ceftriaxone Sodium (Ceftriaxone Sodium 1 Gm Vial) 1 gm IVPUSH Q24H [facility] Last Admin: 03/30/24 17:43 Dose: 1 gm Documented By: HO.CABANBE Dextrose (Dextrose 50 % 25 Gm/50 Ml Syringe) 25 gm IVPUSH Q15M PRN; Protocol PRN Reason: per Hypoglycemia Standing Ord. Glucose (Glucose Gel 15 Gm Gel..Gram.) 15 gm PO Q15M PRN; Protocol PRN Reason: per Hypoglycemia Standing Ord. Vancomycin HCl 750 mg/ Sodium (Chloride) 265 mls @ 265 mls/hr IV Q24H [facility] Last Infusion: 03/30/24 19:55 Dose: Infused Documented By: RUFUS Insulin Human Lispro (Insulin Lispro 100 Unit/Ml 3 Ml Vial) 0 unit SUBCUT QIDACHS [facility]; Protocol Last Admin: 03/31/24 11:20 Dose: Not Given Documented By: DAVE Non-Admin Reason: No Insulin Coverage Levothyroxine Sodium (Levothyroxine Sodium 112 Mcg Tablet) 112 mcg PO MOTUTHFRSA@0600 [facility] Last Admin: 03/31/24 05:50 Dose: 112 mcg Documented By: RUFUS Levothyroxine Sodium (Levothyroxine Sodium 112 Mcg Tablet) 224 mcg PO SUWE@0600 [facility] Magnesium Hydroxide (Milk Of Magnesia 30 Ml Oral.Susp) 30 ml PO DAILY PRN PRN Reason: Constipation Melatonin (Melatonin 3 Mg Tablet) 6 mg PO BEDTIME PRN PRN Reason: Insomnia Ondansetron HCl (Ondansetron Hcl 4 Mg/2 Ml Vial) 4 mg IVPUSH Q8H PRN PRN Reason: Nausea and Vomiting Pharmacy Consult (Consult Rx Vancomycin Dosing) 1 each MISCELLANE DAILY PRN PRN Reason: Consult order Pyridoxine HCl (Pyridoxine Hcl (Vitamin B6) 50 Mg Tablet) 50 mg PO DAILY [facility] Last Admin: 03/31/24 08:47 Dose: 50 mg Documented By: DAVE Sodium Chloride (0.9 % Sodium Chloride Flush 3 Ml Syringe) 3 ml IVFLUSH QSHIFT [facility] Last Admin: 03/31/24 08:49 Dose: 3 ml Documented By: DAVE Tramadol HCl (Tramadol Hcl 50 Mg Tablet) 50 mg PO BID PRN PRN Reason: Pain (Scale Score 4-6) Vitamin D (Cholecalciferol (Vitamin D3) 25 Mcg Tablet) 50 mcg PO DAILY [facility] Last Admin: 03/31/24 08:47 Dose: 50 mcg Documented By: DAVE Labs 03/31/24 07:15 03/31/24 07:15 Labs: Laboratory Results - last 24 hr 03/30/24 03/30/24 03/31/24 18:05 19:43 04:01 MCV MCH MCHC RDW Plt Count MPV Absolute Nucleated RBC Nucleated RBC % (auto) Anion Gap Estim Creat Clear Calc Estimated GFR POC Glucose 105 117 H Random Glucose Calcium C. difficile Tox B Gene NEGATIVE 03/31/24 03/31/24 03/31/24 07:07 07:15 11:16 MCV 80.2 MCH 25.5 L MCHC 31.8 RDW 16.0 Plt Count 262 MPV 9.0 L Absolute Nucleated RBC 0.000 Nucleated RBC % (auto) 0.0 Anion Gap 11 L Estim Creat Clear Calc 36.3 Estimated GFR 39 POC Glucose 97 121 H Random Glucose 98 Calcium 8.6 D C. difficile Tox B Gene Microbiology Microbiology Results: Microbiology 03/29/24 15:36 Blood Culture - Preliminary Blood - Venous No growth after 24 hours. 03/29/24 12:42 Blood Culture - Preliminary Blood - Venous No growth after 24 hours. 03/29/24 17:31 Gram Stain - Final Flank Routine Culture - Preliminary Culture in progress. 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 d/w IR - chronic infection will continue to drain through her wound, as it has in the past. Another drain can be placed into the small abscess cavity to divert drainage. pt and HCP request to hold off on any procedures and allow her to drain through her wound likely urologic source seen by General surgery agrees to further intervention required Seen by Urology, no further workup required at this time - outpatient follow up Wound culture growing proteus sp - will stop vancomycin, follow culture sensitivites and urine culture pending Continue local wound care with dry dressings, Diarrhea C diff negative FELICITA SCr improving Likely secondary to reduced p.o. intake as well as continued diuretic use Hold lisinopril and Lasix Hypotension Patient's BP as low as 77/50, improved with IVF Likely secondary to reduced p.o. intake and continued diuretic use continue to Hold lisinopril Hyponatremia improved to 134 Likely secondary to reduced p.o. intake and continued diuretic use chronic normocytic anemia drop in H/H overnight likely dilutional from IVF as drop in all cell lines H/H today more c/w pt baseline H/H no evidence of acute blood loss H/H stable overnight Bic-odlvzug-axjkfvsnd type [address] on sliding scale insulin Diabetic diet Hypothyroidism Continue levothyroxine Full Code DVT Prophylaxis: Pneumatic compression Requires ongoing inpatient stay due to need for IV antibiotics Quality Stroke Does the patient have a stroke diagnosis?: No VTE Prior VTE?: No VTE Risk Level:: Medical - moderate - high VTE Device Contraindication: N/A - Device Ordered VTE Drug Contraindication: Treatment Not Indicated
--- NOTE | 2024-03-31 14:42 | PM.DS ---
DS: Providers Provider Date of Service: 04/01/24 Date of admission: 03/29/24 22:28 Date of discharge: 04/01/24 Primary care physician: Ap Deal MD Consults: 03/29/24 22:38 Consult to General Surgery Routine Consulting Provider: [facility] General Surgeons Reason for consultation: Iliopsoas abscess, dehisced ostomy reversal with purulent discharge 03/30/24 12:23 Consult to Urology Routine Consulting Provider: [facility] Urology Services Reason for consultation: Chronic right retroperitoneal abscess with fistula, patient known to Dr Murrell provider been notified: Yes Discharging clinician: Sabina Myers DS: Diagnosis Discharge Diagnosis (1) Abscess: Status: Acute DS: Summary Hospital Course Hospital Course: From H&P on the day of admission Pt is a 79-year-old female with a PMH significant for?HLD HTN, hypothyroidism, fqf-dlvjecm-shvmrezbi type 2 diabetes, and hx of sigmoid stricture s/p Vicki procedure with recent colostomy reversal who presents to the ED for evaluation of a right flank wound that ?burst? and drained last night. Pt overall is a rather poor historian and is initially unable to state why she came to the hospital, how long her symptoms have been ongoing, or even what side of her abdomen her ostomy was on. Pt reports she is ?not good with time? and unable to provide much detail concerning HPI, which is instead obtained from chart and provider review. Pt initially had family who was at bedside who stated last night pt had wound that burst open with pus-like discharge. Pt apparently had similar incident 1.5 years ago with abscess that required IR drainage. Pt is well known to [facility] general surgery services and underwent Vicki procedure in 09/2023 with subsequent colostomy reversal on 02/20/2024. Ostomy closure dehisced on 03/09/2024 pt has been seen by [facility] services 3 times a week and changing dressing daily. Pt herself currently has no acute medical complaints, including abdominal pain, nausea, vomiting. No chest pain/pressure, palpitations. Of note, pt apparently has not been eating or drinking much the past few weeks. In the ED pt was soft BP as low as , vitals otherwise stable and WNL. Labs were significant for leukocytosis of 14.3, stable H&H of 10.2/31.4, sodium 129, BUN 27, creatinine 1.93 (decreased from 1.40 on 02/25/2024) AST 49, CRP 13.75, and albumin 3.0. Lactic acid WNL at 1.6. CT?of abdomen and pelvis found right dorsal lateral fluid collection from right iliopsoas musculature measuring up to 3.8 cm concerning for abscess. Also found left ventral phlegmonous change and/or drain fluid collection up to 4.3 cm, and additional free fluid in pelvis concerning for sigmoid colitis. Pt was treated with IVF, ceftriaxone, and vancomycin. Pt will be admitted to the hospital for treatment and further evaluation of FELICITA in the setting iliopsoas muscle abscess. chronic retroperitoneal abscess openly draining at this time CT showing 3 point cm fluid collection concerning for abscess and left ventral phlegmonous changes and/or drained fluid collection up to 4.3 cm. 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 Initially planned for abscess drainage, but after discussion with IR this is a chronic infection. It will continue to drain through her wound, as it has in the past. Another drain can be placed into the small abscess cavity to divert drainage which was discussed with the patient but they have opted to hold off on any procedures and allow her to drain through her wound. This is likely urologic source as it was previously. Seen by both general surgery and urology. No surgical intervention or further work up is recommended at this time. Initially treated with IV vancomycin and ceftriaxone. Wound culture growing proteus sensitive to ceftriaxone. urine culture negative. Will discharge home with course 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. Continue local wound care with dry dressings. Time Attestation Discharge Coordination Time (in mins): 35 Quality: Safe Use of Opioids Does Pt have an Active Cancer Diagnosis on the Problem List?: No Quality: Stroke Does the patient have a stroke diagnosis?: No Physical Exam Vital Signs: Vital Signs: Last Vital Signs Temp 98.2 F 03/31/24 07:04 Pulse 69 03/31/24 07:04 Resp 16 03/31/24 07:04 BP 108/55 L 03/31/24 07:04 Pulse Ox 99 03/31/24 07:04 O2 Del Method Room Air 03/31/24 07:04 BMI result Body Mass Index 31.7 DS: Data Data Completed and Pending Completed studies during hospitalization [Text1]: Procedures Bypass Descending Colon to Cutaneous, Open Approach (10/04/23) Dilation of Right Ureter with Intraluminal Device, Via Natural or Artificial Opening Endoscopic (04/25/23) Drainage of Retroperitoneum with Drainage Device, Percutaneous Approach (12/08/21) Excision of Large Intestine, Via Natural or Artificial Opening Endoscopic, Diagnostic (04/25/23) Excision of Sigmoid Colon, Open Approach (10/04/23) Excision of Small Intestine, Open Approach (02/20/24) Extirpation of Matter from Right Ureter, Via Natural or Artificial Opening Endoscopic (04/05/21) Fluoroscopy of Right Kidney, Ureter and Bladder (04/25/23) Introduction of Anesthetic Agent into Peripheral Nerves and Plexi, Percutaneous Approach (02/20/24) Release Peritoneum, Open Approach (02/20/24) Reposition Descending Colon, Open Approach (02/20/24) Labs on day of discharge: Laboratory Results - last 24 hr 03/30/24 03/30/24 03/31/24 18:05 19:43 04:01 WBC RBC Hgb Hct MCV MCH MCHC RDW Plt Count MPV Absolute Nucleated RBC Nucleated RBC % (auto) Sodium Potassium Chloride Carbon Dioxide Anion Gap BUN Creatinine Estim Creat Clear Calc Estimated GFR POC Glucose 105 117 H Random Glucose Calcium C. difficile Tox B Gene NEGATIVE 03/31/24 03/31/24 03/31/24 07:07 07:15 11:16 WBC 7.6 RBC 3.33 L Hgb 8.5 L Hct 26.7 L MCV 80.2 MCH 25.5 L MCHC 31.8 RDW 16.0 Plt Count 262 MPV 9.0 L Absolute Nucleated RBC 0.000 Nucleated RBC % (auto) 0.0 Sodium 134 L Potassium 3.5 Chloride 108 Carbon Dioxide 19 L Anion Gap 11 L BUN 23 H Creatinine 1.31 Estim Creat Clear Calc 36.3 Estimated GFR 39 POC Glucose 97 121 H Random Glucose 98 Calcium 8.6 D C. difficile Tox B Gene Preliminary micro results at discharge 03/29/24 17:31 Routine Culture - Preliminary Flank Proteus species 03/29/24 15:36 Blood Culture - Preliminary Blood - Venous No growth after 24 hours. 03/29/24 12:42 Blood Culture - Preliminary Blood - Venous No growth after 24 hours. Discharge Plan Discharge Anticipated Discharge Date/Time: 04/01/24 11:00 Patient Disposition: Home, Self-Care Discharge Diagnosis: chronic retroperitoneal abscess Referrals: Ap Deal MD [Primary Care Provider] - 1 Week Discharge Medications: New cefuroxime axetil 250 mg tablet 250 mg PO Q12H 4 Days Qty: 8 0RF Continued lisinopril 10 mg tablet 10 mg PO DAILY Qty: 90 1RF (DME) Wheel chair Kit See Rx Instructions .Route Qty: 1 0RF Rx Instructions: As directed atorvastatin 10 mg tablet 10 mg PO DAILY metformin 500 mg tablet extended release 24 hr 1 tab PO DAILY@1700 furosemide 40 mg tablet 40 mg PO DAILY Qty: 30 0RF acetaminophen 500 mg Tablet 1,000 mg PO Q6H PRN (Reason: Pain) pyridoxine (vitamin B6) 50 mg tablet 50 mg PO DAILY levothyroxine 112 mcg tablet 224 mcg PO SUWE@0600 levothyroxine 112 mcg tablet 112 mcg PO MOTUTHFRSA@0600 hydrocodone-acetaminophen 5-325 mg tablet 1 tab PO Q4-6H PRN (Reason: Pain (Scale Score 7-10)) Rx Instructions: Partial Fill upon patient request. tramadol 50 mg tablet 50 mg PO BID PRN (Reason: Pain (Scale Score 4-6)) cholecalciferol (vitamin D3) [Vitamin D3] 50 mcg (2,000 unit) tablet 50 mcg PO DAILY Activity on Discharge: As tolerated Stand Alone Forms: Patient Portal Discharge page Print Language: Nepali Care Plan Goals: see below Health Concerns: chronic abscess of right flank with fistula to right flank draining through the skin Plan of Treatment: Complete course 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 as prescribed Call to schedule outpatient follow-up appointment with Urology Call to schedule an appointment at the wound care clinic to monitor skin wounds Local wound care with dry dressings Assessment: see discharge summary
[2024-03-31 15:16] VITALS: BP 101/59; PULSE 70; RESP 16; TEMP 36.5; O2SAT 100
[2024-03-31 16:27] LABS: Glucose, Whole Blood 128 mg/dL (60-115)
[2024-03-31] MEDS: cefTRIAXone sodium 1 GM VIAL IVPUSH (16:57)
[2024-03-31 20:00] VITALS: BP 120/52; PULSE 83; RESP 20; TEMP 36.3; O2SAT 100
[2024-03-31 20:31] LABS: Glucose, Whole Blood 125 mg/dL (60-115)
[2024-04-01] MEDS: ondansetron HCL 4 MG/2 ML VIAL IVPUSH (01:24)
[2024-04-01 03:14] VITALS: BP 145/65; PULSE 80; RESP 18; TEMP 36.4; O2SAT 99
[2024-04-01 06:59] LABS: Anion Gap 12 (12-20); Blood Urea Nitrogen 22 mg/dL (9-16); Calcium 8.4 mg/dL (8.4-10.2); Carbon Dioxide 19 mmol/L (22-29); Chloride 111 mmol/L (96-108); Creatinine Clr Calc Pharmacy 41.7; Estimated Glomerular Filt Rate 46; Glucose Random 133 mg/dL (60-115); Potassium 3.5 mmol/L (3.3-5.1); Sodium 138 mmol/L (135-145)
[2024-04-01 07:35] VITALS: BP 128/60; PULSE 87; RESP 18; TEMP 36; O2SAT 96
[2024-04-01 07:48] LABS: Glucose, Whole Blood 114 mg/dL (60-115)
[2024-04-01] MEDS: Cholecalciferol (Vitamin D3) 25 MCG TABLET 50 MCG PO (08:11)
[2024-04-01] MEDS: Atorvastatin Calcium 10 MG TABLET PO (08:11)
[2024-04-01] MEDS: Pyridoxine HCl (Vitamin B6) 50 MG TABLET PO (08:11)
[2024-04-01] MEDS: 0.9 % Sodium Chloride Flush 3 ML SYRINGE IVFLUSH ×3 (08:12→21:21)
--- NOTE | 2024-04-01 08:27 | PC.NURSE ---
Right flank dressing changed grape sized opening draining serous drainage , surrounding skin intact
--- NOTE | 2024-04-01 09:53 | P.PNGS_ITS ---
Subjective Subjective Date of Service: 04/01/24 Interval history: Says she feels weak today and has no energy No GI complaints No abdominal pain Says she still has drainage from the right flank anus but this is decreasing Physical Exam 2 Vital Signs: Vital Signs: Last Vital Signs Temp 96.8 F 04/01/24 07:35 Pulse 87 04/01/24 07:35 Resp 18 04/01/24 07:35 BP 128/60 04/01/24 07:35 Pulse Ox 96 04/01/24 07:35 O2 Del Method Room Air 04/01/24 07:35 BMI result Body Mass Index 31.7 Const: General: comfortable and no acute distress Resp: Effort & Inspection: normal respiratory effort Cardio: Rate: regular rate GI: Palpation (GI): Soft to palpation Back/Spine/Pelvis: Other: Right flank sinus, with some staining on dressing Objective Data Active Medications Acetaminophen (Acetaminophen 325 Mg Tablet) 650 mg PO Q6H PRN PRN Reason: Pain, Mild 1-3,fever,headache Last Admin: 03/31/24 03:33 Dose: 650 mg Documented By: RUFUS Hydrocodone Bitart/Acetaminophen (Hydrocodone Bit/Acetam 5/325 Tablet) 1 tab PO Q4H PRN PRN Reason: Pain (Scale Score 7-10) Atorvastatin Calcium (Atorvastatin Calcium 10 Mg Tablet) 10 mg PO DAILY [facility] Last Admin: 04/01/24 08:11 Dose: 10 mg Documented By: SHAQUILLE Calcium Carbonate (Calcium Carbonate 750 Mg Tab.Chew) 750 mg PO Q4H PRN PRN Reason: Heartburn Ceftriaxone Sodium (Ceftriaxone Sodium 1 Gm Vial) 1 gm IVPUSH Q24H [facility] Last Admin: 03/31/24 16:57 Dose: 1 gm Documented By: DAVE Dextrose (Dextrose 50 % 25 Gm/50 Ml Syringe) 25 gm IVPUSH Q15M PRN; Protocol PRN Reason: per Hypoglycemia Standing Ord. Glucose (Glucose Gel 15 Gm Gel..Gram.) 15 gm PO Q15M PRN; Protocol PRN Reason: per Hypoglycemia Standing Ord. Insulin Human Lispro (Insulin Lispro 100 Unit/Ml 3 Ml Vial) 0 unit SUBCUT QIDACHS [facility]; Protocol Last Admin: 04/01/24 07:55 Dose: Not Given Documented By: SHAQUILLE Non-Admin Reason: No Insulin Coverage Levothyroxine Sodium (Levothyroxine Sodium 112 Mcg Tablet) 112 mcg PO MOTUTHFRSA@0600 [facility] Last Admin: 03/31/24 05:50 Dose: 112 mcg Documented By: RUFUS Levothyroxine Sodium (Levothyroxine Sodium 112 Mcg Tablet) 224 mcg PO SUWE@0600 [facility] Last Admin: 04/01/24 05:55 Dose: Not Given Documented By: RUFUS Non-Admin Reason: See Note Comments: pt refused med reporting nausea, offered anti nausea med with pt refusing both meds. Magnesium Hydroxide (Milk Of Magnesia 30 Ml Oral.Susp) 30 ml PO DAILY PRN PRN Reason: Constipation Melatonin (Melatonin 3 Mg Tablet) 6 mg PO BEDTIME PRN PRN Reason: Insomnia Ondansetron HCl (Ondansetron Hcl 4 Mg/2 Ml Vial) 4 mg IVPUSH Q8H PRN PRN Reason: Nausea and Vomiting Last Admin: 04/01/24 01:24 Dose: 4 mg Documented By: RUFUS Pyridoxine HCl (Pyridoxine Hcl (Vitamin B6) 50 Mg Tablet) 50 mg PO DAILY [facility] Last Admin: 04/01/24 08:11 Dose: 50 mg Documented By: SHAQUILLE Sodium Chloride (0.9 % Sodium Chloride Flush 3 Ml Syringe) [facility] Last Admin: 04/01/24 08:12 Dose: 3 ml Documented By: SHAQUILLE Tramadol HCl (Tramadol Hcl 50 Mg Tablet) 50 mg PO BID PRN PRN Reason: Pain (Scale Score 4-6) Vitamin D (Cholecalciferol (Vitamin D3) 25 Mcg Tablet) 50 mcg PO DAILY [facility] Last Admin: 04/01/24 08:11 Dose: 50 mcg Documented By: SHAQUILLE Labs 03/31/24 07:15 04/01/24 06:20 Labs: Laboratory Results - last 24 hr 03/31/24 03/31/24 03/31/24 11:16 16:20 20:18 Anion Gap Estim Creat Clear Calc Estimated GFR POC Glucose 121 H 128 H 125 H Random Glucose Calcium 04/01/24 04/01/24 06:20 07:39 Anion Gap 12 Estim Creat Clear Calc 41.7 Estimated GFR 46 POC Glucose 114 Random Glucose 133 H Calcium 8.4 Microbiology Microbiology Results: Microbiology 03/29/24 17:31 Gram Stain - Final Flank Routine Culture - Final Proteus mirabilis 03/29/24 15:36 Blood Culture - Preliminary Blood - Venous No growth after 48 hours. 03/29/24 12:42 Blood Culture - Preliminary Blood - Venous No growth after 48 hours. 03/30/24 Unknown Urine Culture - Final Urine clean catch - Clean Catch Midstream No growth. Procedures Date of Service Date of Service: 04/01/24 Progress Note: A&P Assessment and plan (1) Retroperitoneal fluid collection: Status: Acute Assessment and Plan: Likely due to a chronic condition related to her renal calculi Draining spontaneously - as per IR, no need for IR drainage Wound care Anticipate this to be recurrent No GI complaints Rest of plan as per medical service with input from Time Spent With Patient Time: Total time managing care of this patient today ____ minutes. Quality Stroke Does the patient have a stroke diagnosis?: No VTE Prior VTE?: No VTE Risk Level:: Medical - moderate - high VTE Device Contraindication: N/A - Device Ordered VTE Drug Contraindication: Treatment Not Indicated
[2024-04-01] MEDS: Acetaminophen 325 MG TABLET 650 MG PO (11:00)
[2024-04-01 11:39] LABS: Glucose, Whole Blood 116 mg/dL (60-115)
--- NOTE | 2024-04-01 13:21 | HO.PM.IMPN ---
Subjective Subjective Date of Service: 04/01/24 Interval History: Seen and examined this morning Follow-up for draining retroperitoneal abscess Patient reports did not sleep well overnight, reporting nausea this morning Does not feel able to go home Review of Systems Review of Systems: Yes all other systems are reviewed and are negative Constitutional Constitutional: Denies chills and Denies fever(s) Cardiovascular Cardiovascular: Denies chest pain, Denies palpitations and Denies dyspnea Respiratory Respiratory: Denies cough and Denies dyspnea Gastrointestinal Gastrointestinal: Reports nausea and Denies vomiting Endocrine Endocrine: Denies palpitations Physical Exam Vital Signs: Vital Signs: Last Vital Signs Temp 96.8 F 04/01/24 07:35 Pulse 87 04/01/24 07:35 Resp 18 04/01/24 07:35 BP 128/60 04/01/24 07:35 Pulse Ox 96 04/01/24 07:35 O2 Del Method Room Air 04/01/24 07:35 BMI result Body Mass Index 31.7 Const: General: cooperative, comfortable, no acute distress, alert and awake Nutritional Appearance: obese Orientation/consciousness: oriented to person and oriented to place Resp: Effort & Inspection: normal respiratory effort, able to speak in complete sentences, no respiratory distress and no use of accessory muscles Cardio: Rate: regular rate GI: Inspection: No distended Palpation (GI): Soft to palpation Skin: Other: right flank wound/sinus tract opening draining serous fluid, no purulence site of previous ostomy - wound dehiscence. no evidence of infection Neuro: General: oriented to person, oriented to place, moves all extremities and CN's II-XI intact bilaterally Extrem: General: Yes no pedal edema Objective Data Active Medications Acetaminophen (Acetaminophen 325 Mg Tablet) 650 mg PO Q6H PRN PRN Reason: Pain, Mild 1-3,fever,headache Last Admin: 04/01/24 11:00 Dose: 650 mg Documented By: SHAQUILLE Hydrocodone Bitart/Acetaminophen (Hydrocodone Bit/Acetam 5/325 Tablet) 1 tab PO Q4H PRN PRN Reason: Pain (Scale Score 7-10) Atorvastatin Calcium (Atorvastatin Calcium 10 Mg Tablet) 10 mg PO DAILY [facility] Last Admin: 04/01/24 08:11 Dose: 10 mg Documented By: SHAQUILLE Calcium Carbonate (Calcium Carbonate 750 Mg Tab.Chew) 750 mg PO Q4H PRN PRN Reason: Heartburn Ceftriaxone Sodium (Ceftriaxone Sodium 1 Gm Vial) 1 gm IVPUSH Q24H [facility] Last Admin: 03/31/24 16:57 Dose: 1 gm Documented By: DAVE Dextrose (Dextrose 50 % 25 Gm/50 Ml Syringe) 25 gm IVPUSH Q15M PRN; Protocol PRN Reason: per Hypoglycemia Standing Ord. Glucose (Glucose Gel 15 Gm Gel..Gram.) 15 gm PO Q15M PRN; Protocol PRN Reason: per Hypoglycemia Standing Ord. Insulin Human Lispro (Insulin Lispro 100 Unit/Ml 3 Ml Vial) 0 unit SUBCUT QIDACHS [facility]; Protocol Last Admin: 04/01/24 11:44 Dose: Not Given Documented By: SHAQUILLE Non-Admin Reason: No Insulin Coverage Levothyroxine Sodium (Levothyroxine Sodium 112 Mcg Tablet) 112 mcg PO MOTUTHFRSA@0600 [facility] Last Admin: 03/31/24 05:50 Dose: 112 mcg Documented By: RUFUS Levothyroxine Sodium (Levothyroxine Sodium 112 Mcg Tablet) 224 mcg PO SUWE@0600 [facility] Last Admin: 04/01/24 05:55 Dose: Not Given Documented By: RUFUS Non-Admin Reason: See Note Comments: pt refused med reporting nausea, offered anti nausea med with pt refusing both meds. Magnesium Hydroxide (Milk Of Magnesia 30 Ml Oral.Susp) 30 ml PO DAILY PRN PRN Reason: Constipation Melatonin (Melatonin 3 Mg Tablet) 6 mg PO BEDTIME PRN PRN Reason: Insomnia Ondansetron HCl (Ondansetron Hcl 4 Mg/2 Ml Vial) 4 mg IVPUSH Q8H PRN PRN Reason: Nausea and Vomiting Last Admin: 04/01/24 01:24 Dose: 4 mg Documented By: RUFUS Pyridoxine HCl (Pyridoxine Hcl (Vitamin B6) 50 Mg Tablet) 50 mg PO DAILY [facility] Last Admin: 04/01/24 08:11 Dose: 50 mg Documented By: SHAQUILLE Sodium Chloride (0.9 % Sodium Chloride Flush 3 Ml Syringe) 3 ml IVFLUSH QSHIFT [facility] Last Admin: 04/01/24 08:12 Dose: 3 ml Documented By: SHAQUILLE Tramadol HCl (Tramadol Hcl 50 Mg Tablet) 50 mg PO BID PRN PRN Reason: Pain (Scale Score 4-6) Vitamin D (Cholecalciferol (Vitamin D3) 25 Mcg Tablet) 50 mcg PO DAILY [facility] Last Admin: 04/01/24 08:11 Dose: 50 mcg Documented By: SHAQUILLE Labs 03/31/24 07:15 04/01/24 06:20 Labs: Laboratory Results - last 24 hr 03/31/24 03/31/24 04/01/24 16:20 20:18 06:20 Anion Gap 12 Estim Creat Clear Calc 41.7 Estimated GFR 46 POC Glucose 128 H 125 H Random Glucose 133 H Calcium 8.4 04/01/24 04/01/24 07:39 11:36 Anion Gap Estim Creat Clear Calc Estimated GFR POC Glucose 114 116 H Random Glucose Calcium Microbiology Microbiology Results: Microbiology 03/29/24 17:31 Gram Stain - Final Flank Routine Culture - Final Proteus mirabilis 03/29/24 15:36 Blood Culture - Preliminary Blood - Venous No growth after 48 hours. 03/29/24 12:42 Blood Culture - Preliminary Blood - Venous No growth after 48 hours. 03/30/24 Unknown Urine Culture - Final Urine clean catch - Clean Catch Midstream No growth. 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 d/w IR - chronic infection will continue to drain through her wound, as it has in the past. Another drain can be placed into the small abscess cavity to divert drainage. pt and HCP request to hold off on any procedures and allow her to drain through her wound likely urologic source seen by General surgery agrees to further intervention required Seen by Urology, no further workup required at this time - outpatient follow up Wound culture growing proteus sensitive to ceftriaxone, we will stop vancomycin, changed to IV ceftriaxone. Urine culture negative Continue local wound care with dry dressings CT showing ?colitis no abdominal pain or fever, diarrhea resolved. abx as above Diarrhea C diff negative FELICITA resolved Likely secondary to reduced p.o. intake as well as continued diuretic use Hold lisinopril and Lasix - can likely resume on discharge Hypotension Patient's BP as low as 77/50, improved with IVF Likely secondary to reduced p.o. intake and continued diuretic use continue to hold lisinopril - bp remains controlled Hyponatremia resolved Likely secondary to reduced p.o. intake and continued diuretic use chronic normocytic anemia drop in H/H overnight likely dilutional from IVF as drop in all cell lines H/H today more c/w pt baseline H/H no evidence of acute blood loss H/H stable overnight Gly-djitrsv-pgnvfurmf type [address] on sliding scale insulin Diabetic diet Hypothyroidism Continue levothyroxine Full Code DVT Prophylaxis: Pneumatic compression Requires ongoing inpatient stay due to need for IV antibiotics Quality Stroke Does the patient have a stroke diagnosis?: No VTE Prior VTE?: No VTE Risk Level:: Medical - moderate - high VTE Device Contraindication: N/A - Device Ordered VTE Drug Contraindication: Treatment Not Indicated
[2024-04-01 15:15] VITALS: BP 117/51; PULSE 76; RESP 16; TEMP 36; O2SAT 97
[2024-04-01 16:12] LABS: Glucose, Whole Blood 179 mg/dL (60-115)
[2024-04-01] MEDS: cefTRIAXone sodium 1 GM VIAL IVPUSH (16:30)
[2024-04-01] MEDS: Insulin Lispro 100 UNIT/ML 3 ML VIAL SUBCUT (16:31)
[2024-04-01 19:17] VITALS: BP 116/53; PULSE 61; RESP 16; TEMP 35.8; O2SAT 98
[2024-04-01 20:27] LABS: Glucose, Whole Blood 119 mg/dL (60-115)
[2024-04-02 03:18] VITALS: BP 120/61; PULSE 66; RESP 16; TEMP 36.2; O2SAT 99
[2024-04-02] MEDS: Levothyroxine Sodium 112 MCG TABLET PO (06:04)
[2024-04-02 07:29] LABS: Glucose, Whole Blood 115 mg/dL (60-115)
[2024-04-02 07:46] VITALS: BP 116/58; PULSE 70; RESP 18; TEMP 36.4; O2SAT 99
--- NOTE | 2024-04-02 08:53 | PM.DS ---
DS: Providers Provider Date of Service: 04/02/24 Date of admission: 03/29/24 22:28 Date of discharge: 04/02/24 Primary care physician: Ap Deal MD Consults: 03/29/24 22:38 Consult to General Surgery Routine Consulting Provider: [facility] [place] General Surgeons Reason for consultation: Iliopsoas abscess, dehisced ostomy reversal with purulent discharge 03/30/24 12:23 Consult to Urology Routine Consulting Provider: [facility] [place] Urology Services Reason for consultation: Chronic right retroperitoneal abscess with fistula, patient known to Has provider been notified: Yes DS: Diagnosis Discharge Diagnosis (1) Abscess: Status: Acute DS: Summary Hospital Course Hospital Course: From H&P on the day of admission Pt is a 79-year-old female with a PMH significant for?HLD HTN, hypothyroidism, apu-wlublqv-gnwokfsio type 2 diabetes, and hx of sigmoid stricture s/p Vicki procedure with recent colostomy reversal who presents to the ED for evaluation of a right flank wound that ?burst? and drained last night. Pt overall is a rather poor historian and is initially unable to state why she came to the hospital, how long her symptoms have been ongoing, or even what side of her abdomen her ostomy was on. Pt reports she is ?not good with time? and unable to provide much detail concerning HPI, which is instead obtained from chart and provider review. Pt initially had family who was at bedside who stated last night pt had wound that burst open with pus-like discharge. Pt apparently had similar incident 1.5 years ago with abscess that required IR drainage. Pt is well known to [facility] [place] general surgery services and underwent Vicki procedure in 09/2023 with subsequent colostomy reversal on 02/20/2024. Ostomy closure dehisced on 03/09/2024 pt has been seen by [facility] services 3 times a week and changing dressing daily. Pt herself currently has no acute medical complaints, including abdominal pain, nausea, vomiting. No chest pain/pressure, palpitations. Of note, pt apparently has not been eating or drinking much the past few weeks. In the ED pt was soft BP as low as , vitals otherwise stable and WNL. Labs were significant for leukocytosis of 14.3, stable H&H of 10.2/31.4, sodium 129, BUN 27, creatinine 1.93 (decreased from 1.40 on 02/25/2024) AST 49, CRP 13.75, and albumin 3.0. Lactic acid WNL at 1.6. CT?of abdomen and pelvis found right dorsal lateral fluid collection from right iliopsoas musculature measuring up to 3.8 cm concerning for abscess. Also found left ventral phlegmonous change and/or drain fluid collection up to 4.3 cm, and additional free fluid in pelvis concerning for sigmoid colitis. Pt was treated with IVF, ceftriaxone, and vancomycin. Pt will be admitted to the hospital for treatment and further evaluation of FELICITA in the setting iliopsoas muscle abscess. chronic retroperitoneal abscess openly draining at this time CT showing 3 point cm fluid collection concerning for abscess and left ventral phlegmonous changes and/or drained fluid collection up to 4.3 cm. 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 Initially planned for abscess drainage, but after discussion with IR this is a chronic infection. It will continue to drain through her wound, as it has in the past. Another drain can be placed into the small abscess cavity to divert drainage which was discussed with the patient but they have opted to hold off on any procedures and allow her to drain through her wound. This is likely urologic source as it was previously. Seen by both general surgery and urology. No surgical intervention or further work up is recommended at this time. Initially treated with IV vancomycin and ceftriaxone. Wound culture growing proteus sensitive to ceftriaxone. urine culture negative. Will discharge home with course 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. Continue local wound care with dry dressings. Time Attestation Discharge Coordination Time (in mins): 39 Quality: Safe Use of Opioids Does Pt have an Active Cancer Diagnosis on the Problem List?: No Quality: Stroke Does the patient have a stroke diagnosis?: No Physical Exam Vital Signs: Vital Signs: Last Vital Signs Temp 97.6 F 04/02/24 07:46 Pulse 70 04/02/24 07:46 Resp 18 04/02/24 07:46 BP 116/58 L 04/02/24 07:46 Pulse Ox 99 04/02/24 07:46 O2 Del Method Room Air 04/02/24 07:46 BMI result Body Mass Index 31.7 Appearing in no acute distress head is normocephalic atraumatic eyes pupils are PERRLA sclera is anicteric mouth throat mucous membranes are intact and moist neck is supple no lymphadenopathy, no JVD noted lung sounds are clear to auscultation heart regular rate rhythm, clear S1, S2 positive bowel sounds, abdomen is soft, nontender neuro patient is alert x3, no focal deficits DS: Data Data Completed and Pending Completed studies during hospitalization [Text1]: Procedures Bypass Descending Colon to Cutaneous, Open Approach (10/04/23) Dilation of Right Ureter with Intraluminal Device, Via Natural or Artificial Opening Endoscopic (04/25/23) Drainage of Retroperitoneum with Drainage Device, Percutaneous Approach (12/08/21) Excision of Large Intestine, Via Natural or Artificial Opening Endoscopic, Diagnostic (04/25/23) Excision of Sigmoid Colon, Open Approach (10/04/23) Excision of Small Intestine, Open Approach (02/20/24) Extirpation of Matter from Right Ureter, Via Natural or Artificial Opening Endoscopic (04/05/21) Fluoroscopy of Right Kidney, Ureter and Bladder (04/25/23) Introduction of Anesthetic Agent into Peripheral Nerves and Plexi, Percutaneous Approach (02/20/24) Release Peritoneum, Open Approach (02/20/24) Reposition Descending Colon, Open Approach (02/20/24) Labs on day of discharge: Laboratory Results - last 24 hr 04/01/24 04/01/24 04/01/24 11:36 16:08 20:11 POC Glucose 116 H 179 H 119 H 04/02/24 07:19 POC Glucose 115 Preliminary micro results at discharge 03/29/24 15:36 Blood Culture - Preliminary Blood - Venous No growth after 48 hours. 03/29/24 12:42 Blood Culture - Preliminary Blood - Venous No growth after 48 hours. Discharge Plan Discharge Anticipated Discharge Date/Time: 04/02/24 08:52 Patient Disposition: Home, Self-Care Discharge Diagnosis: chronic retroperitoneal abscess Referrals: Ap Deal MD [Primary Care Provider] - 1 Week Discharge Medications: New cefuroxime axetil 250 mg tablet 250 mg PO Q12H 4 Days Qty: 8 0RF Continued lisinopril 10 mg tablet 10 mg PO DAILY Qty: 90 1RF (DME) Wheel chair Kit See Rx Instructions .Route Qty: 1 0RF Rx Instructions: As directed atorvastatin 10 mg tablet 10 mg PO DAILY metformin 500 mg tablet extended release 24 hr 1 tab PO DAILY@1700 furosemide 40 mg tablet 40 mg PO DAILY Qty: 30 0RF acetaminophen 500 mg Tablet 1,000 mg PO Q6H PRN (Reason: Pain) pyridoxine (vitamin B6) 50 mg tablet 50 mg PO DAILY levothyroxine 112 mcg tablet 224 mcg PO SUWE@0600 levothyroxine 112 mcg tablet 112 mcg PO MOTUTHFRSA@0600 hydrocodone-acetaminophen 5-325 mg tablet 1 tab PO Q4-6H PRN (Reason: Pain (Scale Score 7-10)) Rx Instructions: Partial Fill upon patient request. tramadol 50 mg tablet 50 mg PO BID PRN (Reason: Pain (Scale Score 4-6)) cholecalciferol (vitamin D3) [Vitamin D3] 50 mcg (2,000 unit) tablet 50 mcg PO DAILY Discharge Orders: Discharge Order (Routine); Ordered 04/02/24 Ordered By: Yen Guthrie Diet: Advance to usual diet Activity on Discharge: As tolerated Stand Alone Forms: Patient Portal Discharge page Print Language: Frisian Care Plan Goals: see below Health Concerns: chronic abscess of right flank with fistula to right flank draining through the skin Plan of Treatment: Complete course 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 as prescribed Call to schedule outpatient follow-up appointment with Urology Call to schedule an appointment at the wound care clinic to monitor skin wounds Local wound care with dry dressings Assessment: see discharge summary
[2024-04-02 09:21] LABS: Estimated Glomerular Filt Rate 44
[2024-04-02] MEDS: Pyridoxine HCl (Vitamin B6) 50 MG TABLET PO (09:41)
[2024-04-02] MEDS: Atorvastatin Calcium 10 MG TABLET PO (09:41)
[2024-04-02] MEDS: 0.9 % Sodium Chloride Flush 3 ML SYRINGE IVFLUSH (09:42)
[2024-04-02] MEDS: Cholecalciferol (Vitamin D3) 25 MCG TABLET 50 MCG PO (09:42)
--- NOTE | 2024-04-02 10:29 | MHC.CM.PN ---
pt dd home self care
[2024-04-02 11:24] LABS: Glucose, Whole Blood 110 mg/dL (60-115)
[2024-04-02 12:35] VITALS: BP 120/56; PULSE 71; RESP 17; TEMP 36.3; O2SAT 100
== END 2024-04-02 12:36 | disposition home or self-care (01) | DRG 863 ==
LOC: HO.ED 20:08 → HO.EDOVER 22:50 → HO.S3 03-30 16:19
PROVIDERS: Emergency Medicine; Internal Medicine; Physician Assistant; Physician Assistant Medical; Registered Nurse Emergency; Admitting Provider Student in an Organized Health Care Education/Training Program; Emergency Provider Internal Medicine; PCP Internal Medicine; Visit Provider Nurse Practitioner Acute Care
DX: K68.11 Postprocedural retroperitoneal abscess (principal); E87.1 Hypo-osmolality and hyponatremia; N17.9 Acute kidney failure, unspecified; R19.7 Diarrhea, unspecified; B96.4 Proteus (mirabilis) (morganii) as the cause of diseases classified elsewhere; D64.9 Anemia, unspecified; E03.9 Hypothyroidism, unspecified; I95.9 Hypotension, unspecified; Z79.84 Long term (current) use of oral hypoglycemic drugs; Z79.890 Hormone replacement therapy; Z79.899 Other long term (current) drug therapy
CPT/HCPCS: 36415; 74176; 80048; 80053; 81001; 82565; 82803; 82947; 83605; 85025; 85027; 85652; 86140; 87040; 87070; 87077; 87086; 87186; 87205; 87493; 99285; J0696; J2405; J3370; J7120

== ENCOUNTER → 2024-03-29 17:39 | Outpatient (BNV) | payer MEDICARE, SELFPAY | PROVIDERS: Emergency Provider Internal Medicine; PCP Internal Medicine; Visit Provider Radiology Neuroradiology | DX: S31.103A Unspecified open wound of abdominal wall, right lower quadrant without penetration into peritoneal cavity, initial encounter (principal) | CPT/HCPCS: 74176 ==

== ENCOUNTER → 2024-03-29 22:28 | Outpatient (BNV) | payer MEDICARE, SELFPAY | PROVIDERS: Admitting Provider Student in an Organized Health Care Education/Training Program; Emergency Provider Internal Medicine; PCP Internal Medicine; Visit Provider Surgery | DX: K68.19 Other retroperitoneal abscess (principal) | CPT/HCPCS: 99024; 99222; 99232 ==

== ENCOUNTER → 2024-03-29 22:28 | Outpatient (BNV) | payer MEDICARE, SELFPAY | PROVIDERS: Admitting Provider Student in an Organized Health Care Education/Training Program; Emergency Provider Internal Medicine; PCP Internal Medicine; Visit Provider Urology | DX: N20.0 Calculus of kidney (principal); Z96.0 Presence of urogenital implants; L02.91 Cutaneous abscess, unspecified | CPT/HCPCS: 99222 ==

== ENCOUNTER → 2024-03-29 22:28 | Outpatient (BNV) | payer MEDICARE, SELFPAY | PROVIDERS: Admitting Provider Student in an Organized Health Care Education/Training Program; Emergency Provider Internal Medicine; PCP Internal Medicine; Visit Provider Physician Assistant Medical | DX: K68.19 Other retroperitoneal abscess (principal); N17.9 Acute kidney failure, unspecified; I95.9 Hypotension, unspecified; Z96.0 Presence of urogenital implants | CPT/HCPCS: 99223; 99232; 99233; 99239 ==

== ENCOUNTER 2024-04-11 13:15 | Outpatient (AMB) | payer MEDICARE, SELFPAY ==
--- NOTE | 2024-04-11 13:18 | A.OFFPC_ITS ---
Vital Signs 04/11/24 13:26 Height 5 ft 1.25 in Weight 191 lb BMI 35.8 BP 132/48 L Blood Pressure Location Lt brachial Pulse 88 Pulse Source Pulse Oximeter Temp 97.0 F Pulse Oximetry (%) 98 Intake Visit Reasons: discharge follow up Intake Note: Visit Reason: TCM Intake Note: Patient is here for hospital discharge follow up. Patient was discharged from [facility]in Coater Required: No Centrifugal Chiller Technician: Not Required per policy Accompanied by: Self / Same As Patient Allergies chlorpheniramine [From TUSSIONEX] Allergy (Severe, Verified 04/11/24 13:57) HALLUCINATIONS ciprofloxacin [From CIPRO] Allergy (Severe, Verified 04/11/24 13:57) ANAPHYLAXIS escitalopram [ESCITALOPRAM] Allergy (Severe, Verified 04/11/24 13:57) DISSOCIATIVE REACTION fluoxetine [FLUOXETINE] Allergy (Severe, Verified 04/11/24 13:57) DISSOCIATIVE REACTION hydrocodone [From TUSSIONEX] Allergy (Severe, Verified 04/11/24 13:57) HALLUCINATIONS ibuprofen [IBUPROFEN] Allergy (Severe, Verified 04/11/24 13:57) THROAT SWELLING Sulfa (Sulfonamide Antibiotics) [SULFA (SULFONAMIDE ANTIBIOTICS)] Allergy (Severe, Verified 04/11/24 13:57) DYSPNEA clarithromycin [From BIAXIN] Allergy (Intermediate, Verified 04/11/24 13:57) ABD.PAIN duloxetine [DULOXETINE] Allergy (Intermediate, Verified 04/11/24 13:57) FACIAL NUMBNESS erythromycin base [ERYTHROMYCIN BASE] Allergy (Intermediate, Verified 04/11/24 13:57) RASH Penicillins [PENICILLINS] Allergy (Intermediate, Verified 04/11/24 13:57) RASH tetracycline [TETRACYCLINE] Allergy (Intermediate, Verified 04/11/24 13:57) DIARRHEA codeine [CODEINE] Allergy (Unknown, Verified 04/11/24 13:57) TINNITIS guaifenesin Allergy (Unknown, Verified 04/11/24 13:57) Unknown levofloxacin [From Levaquin] Allergy (Unknown, Verified 04/11/24 13:57) Unknown pregabalin Allergy (Unknown, Verified 04/11/24 13:57) Unknown Medication List - Last Reconciled 04/11/24 by Margarita Powell PA-C acetaminophen 1,000 mg PO Q6H PRN atorvastatin 10 mg PO DAILY cefuroxime axetil 250 mg PO Q12H 4 days chair, wheel (Wheel chair) As directed cholecalciferol (vitamin D3) (Vitamin D3) 50 mcg PO DAILY furosemide 40 mg PO DAILY hydrocodone-acetaminophen 5-325 mg 1 tab PO Q4-6H PRN levothyroxine 224 mcg PO SUWE@0600 levothyroxine 112 mcg PO MOTUTHFRSA@0600 lisinopril 10 mg PO DAILY metformin ER 1 tab PO DAILY@1700 pyridoxine (vitamin B6) 50 mg PO DAILY pyridoxine (vitamin B6) (Vitamin B-6) 100 mg PO DAILY tramadol 50 mg PO BID PRN tramadol 50 mg PO DAILY Tobacco use date assessed: 02/15/24 Dental Screening Dental Screen Date: 02/15/24 HPI HPI Comments History of Present Illness Details Patient presents to the office for a TCM visit. Date of admission: 03/29/2024 Date of discharge: 04/02/2024 This is a Follow-up from admission at [facility]: 79-year-old female with a past medical history of hyperlipidemia, hypertension, hypothyroidism, non insulin diabetic type 2 diabetes, history of sigmoid stricture status post Vicki procedure with recent colostomy reversal who is presenting to the primary care clinic for TCM for discharge follow-up from [facility] from 03/29/2024 until 04/02/2024 for chronic retroperitoneal abscess with fistula draining at this time. She was placed on IV antibiotics and discharged with p.o. antibiotics. She was seen by urology and general surgery. She has a follow-up with Urology and General surgery. General surgery follow-up is tomorrow. Urology appointment is May 18. She is also inquiring about her wheelchair due to she needs a new wheelchair for her chronic medical conditions. Otherwise patient denies any recent fevers, chills, worsening abdominal pain, worsening drainage from the wound sites or any other symptoms complaints or concerns at this time. Her fiance is at bedside who is her main caregiver and support system. Hospital Course/Discharge Summary: Pt is a 79-year-old female with a PMH significant for?HLD HTN, hypothyroidism, lge-jzmdxum-ewatxpncj type 2 diabetes, and hx of sigmoid stricture s/p Vicki procedure with recent colostomy reversal who presents to the ED for evaluation of a right flank wound that ?burst? and drained last night. Pt overall is a rather poor historian and is initially unable to state why she came to the hospital, how long her symptoms have been ongoing, or even what side of her abdomen her ostomy was on. Pt reports she is ?not good with time? and unable to provide much detail concerning HPI, which is instead obtained from chart and provider review. Pt initially had family who was at bedside who stated last night pt had wound that burst open with pus-like discharge. Pt apparently had similar incident 1.5 years ago with abscess that required IR drainage. Pt is well known to [facility] general surgery services and underwent Vicki procedure in 09/2023 with subsequent colostomy reversal on 02/20/2024. Ostomy closure dehisced on 03/09/2024 pt has been seen by VNA services 3 times a week and changing dressing daily. Pt herself currently has no acute medical complaints, including abdominal pain, nausea, vomiting. No chest pain/pressure, palpitations. Of note, pt apparently has not been eating or drinking much the past few weeks. In the ED pt was soft BP as low as , vitals otherwise stable and WNL. Labs were significant for leukocytosis of 14.3, stable H&H of 10.2/31.4, sodium 129, BUN 27, creatinine 1.93 (decreased from 1.40 on 02/25/2024) AST 49, CRP 13.75, and albumin 3.0. Lactic acid WNL at 1.6. CT?of abdomen and pelvis found right dorsal lateral fluid collection from right iliopsoas musculature measuring up to 3.8 cm concerning for abscess. Also found left ventral phlegmonous change and/or drain fluid collection up to 4.3 cm, and additional free fluid in pelvis concerning for sigmoid colitis. Pt was treated with IVF, ceftriaxone, and vancomycin. Pt will be admitted to the hospital for treatment and further evalua tion of FELICITA in the setting iliopsoas muscle abscess. Chronic retroperitoneal abscess openly draining at this time. CT showing 3 point cm fluid collection concerning for abscess and left ventral phlegmonous changes and/or drained fluid collection up to 4.3 cm. 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 Initially planned for abscess drainage, but after discussion with IR this is a chronic infection. It will continue to drain through her wound, as it has in the past. Another drain can be placed into the small abscess cavity to divert drainage which was discussed with the patient but they have opted to hold off on any procedures and allow her to drain through her wound. This is likely urologic source as it was previously. Seen by both general surgery and urology. No surgical intervention or further work up is recommended at this time. Initially treated with IV vancomycin and ceftriaxone. Wound culture growing proteus sensitive to ceftriaxone. urine culture negative. Will discharge home with course 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. Continue local wound care with dry dressings. Discharged to/Current Location: Home Lives with: Kai Diagnosis: Chronic retroperitoneal abscess with fistula draining at this time Procedures performed: Patient was given IV antibiotics. No surgical interventions were performed. Patient was offered another drain placed into the small abscess cavity to divert drainage although patient declined. New medications: Cefuroxime 250 mg p.o. b.i.d. for 4 days. Prescribed on 04/02/2024. Patient has completed this antibiotic Discontinued medications: No medications were discontinued. Change medications/dosing: No prior medication dosing were change. Pending labs: No pending labs are present. Pending diagnostic test: No pending diagnostic test Any Follow-up Labs required? No required follow-up labs are required Any Follow-up Diagnostic test required? No follow-up diagnostic test report How are you feeling? Tired, achy in stomach/back. Movement makes it worse. No fevers or chills. Are you in any pain or discomfort? Yes, at evening it's worse or when she gets up to move around. Kai helps with household activities. Pt performs her own ADL's. Do you have any questions about your condition or discharge instructions? No question's. Were you able to get your medications filled? Patient able to feel all her medication Do you have any questions about your medications? Patient does not have any questions about her medications at this Any referrals required? No referrals required at this time. Were you able to schedule your follow-up appointment? Patient was able to schedule up all her follow-up appointment If home health was ordered, have they contact you? No home health aide was orde red at this time. Any outpatient services, if so, are you scheduled? Patient currently receiving VNA services no other services at this time. Although eddie is helping take care of the patient. Are there any additional resources like transportation you might need during her recovery? - VNA? Patient has VNA she comes and . [facility] - HEATER OPERATOR HELPER? No HEATER OPERATOR HELPER services. Eddie is cur rently assisting patient with household daily items, transporting patient to and from appointments and going to get her groceries for her. - Meals on wheels? Eddie usually cook s, gross to the grocery stores were orders out for the patient Educational need/resources: Not at this time What support system do you have? Cassia Morgan patient's niece who lives in [place] keeps in touch with the patient [facility] Medical History (Updated 04/11/24 @ 14:28 by Margarita Powell PA-C) Abscess Hospital discharge follow-up Generalized abdominal pain Encounter for wheelchair assessment Diverticular disease Major depressive disorder Heel spur Chronic low back pain Uterine cancer Hyperthyroidism Weakness of both lower extremities Hydroureteronephrosis Wound infection Open wound of back, complicated Cellulitis Frequency of urination Vaginal burning Vaginal itching PMB (postmenopausal bleeding) Cirrhosis of liver Does mobilize using walker PONV (postoperative nausea and vomiting) Left foot drop Fatty liver Fibromyalgia Neuropathy RBBB Cholelithiasis Staghorn calculus Renal calculus, bilateral Renal calyceal dilation determined by ultrasound UTI (urinary tract infection) Diabetes mellitus, type II Ganglion cyst Plantar fasciitis Anxiety OA (osteoarthritis) Obstructive airway disease Hypercholesterolemia Low back pain Sciatica Hypothyroidism HTN (hypertension) Primary osteoarthritis of right knee Retained ureteral stent Renal stones Staghorn calculus Perirectal abscess Surgical History History of colostomy reversal (02/20/24) History of colectomy (~10/06/23) Status post cystoscopy with ureteral stent placement History of lumbar discectomy History of lumpectomy of both breasts History of cystoscopy History of lithotripsy Hx of colonoscopy History of surgery Family History Father Alcohol dependence Mother CHF (congestive heart failure) Cancer of breast Mother No problems noted. Other Alcoholic cirrhosis Substance use disorder Social History Household Members: Significant Other Housing: House Are you a primary child daycare worker to a significant other at home: No Do you presently have visiting nurse or other home services: Yes 75 years or older and lives alone: No Alcohol intake: never Comment: wheelchair for long distances Patient Tobacco Use Status: Former Tobacco user Tobacco use type: Cigarette Years Smoked: 27 e-Cigarette/Vaping Use: Never Used Second Hand Smoke Exposure: Yes Advance Directives Date on File: 04/06/21 service: No Current occupational status: disabled Cognitive needs: Yes (wheelchair) Hearing needs: No Vision needs: Yes (Glasses) Questionnaire Thrive Questionnaire Date Thrive assessed: 03/30/24 RAMONE-7 AMB Questionnaire RAMONE-7 Date RAMONE - 7 assessed: 02/15/24 Source: Developed by Drs. Preston Aponte, Jojo Holland, Subhash Richmond and colleagues, with an educational vernon from [employer]. Physical exam (Primary Care) Vital Signs: Vitals signs have been reviewed. Tobacco/Smoking Status: Tobacco use Status Tobacco use date assessed 02/15/24 03/28/24 11:37 Patient Tobacco Use Status Former Tobacco user 04/02/24 08:53 Tobacco use type Cigarette 03/28/24 11:37 e-Cigarette/Vaping Use Never Used 03/28/24 11:37 Thrive Assessment: Date of Thrive Assessment Date Thrive assessed 03/30/24 04/03/24 14:59 Const Other: Appearance: Alert. Oriented X3. No acute distress. Head: Normal external exam. Normocephalic. Atraumatic. Eyes: Conjunctiva and sclera normal. Eyelids normal. ENT: MMM. Normal voice. Neck: Normal inspection. Neck supple. FROM. No meningeal signs noted. CVS: Normal heart rate and rhythm. Heart sound normal. Pulses normal throughout. No murmurs/rales/gallops. Respiratory: No respiratory distress. Painless inspiration. Breath sounds normal. No wheezes/rales/rhonchi noted. Chest nontender. No crepitus is noted. No accessory muscle usage noted or decreased air movement noted. No signs of trauma. Abdomen: Soft and mild tenderness overlying the draining wound to the left side of the abdomen. There is no advancing erythema noted at this time. Patient also has wound to right flank which is well healing and draining. No advancing erythema noted. Nondistended. No rigidity. Bowel sounds normal in all 4 quadrants. No organomegaly noted. Back: Full range of motion noted. Skin: Skin warm and dry. Normal skin color. Normal skin turgor. No rashes/lesions/lacerations noted. Extremities: No lower extremity edema. No calf tenderness is noted. Extremities exhibit normal range of motion and nontender. Neuro: Oriented X 3. Moving all extremities. No focal neuro deficits noted. Patient is sitting in wheelchair. No focal weakness is noted. Vascular: + radial pulses b/l. Normal cap refill. No cyanosis noted. Coding Level of Care Code TCM High MDM <= 14 days Complex EM visit Add On G2211 Diagnoses Hospital discharge follow-up Z09 Abscess L02.91 Diabetes mellitus, type II E11.9 Obstructive airway disease J44.9 Uterine cancer C55 HTN (hypertension) I10 Hypercholesterolemia E78.00 Hyperthyroidism E05.90 Weakness of both lower extremities R29.898 Renal abscess N15.1 Abscess, retroperitoneal K68.19 Bilateral nephrolithiasis N20.0 Assessment & Plan Assessment & Plan (1) Hospital discharge follow-up: Code(s): Z09 - Encounter for follow-up examination after completed treatment for conditions other than malignant neoplasm Category: Medical Plan: Patient has VNA services in place. Patient has family support with her fiance who is her main caregiver at this time. Patient is having wound care visits weekly. Patient has follow-up with General surgery and Urology along with us/PCP. Condition is stable at this time will continue to monitor. (2) Abscess: Comment: Chronic abscess of right flank with fistula to Right Flank draining through the skin Code(s): L02.91 - Cutaneous abscess, unspecified Category: Medical Plan: Chronic abscess of right flank with fistula to right flank draining through the skin. No signs of acute infection. Patient to continue VNA services and wound care services as scheduled. Patient to follow-up with general surgery and Urology as scheduled. Condition is chronic and stable continue to monitor. (3) Diabetes mellitus, type II: Code(s): E11.9 - Type 2 diabetes mellitus without complications Category: Medical Plan: Patient to continue metformin extended release 500 mg daily. A1c level goal less than 7.0. Last A1c on 12/09/2023 was 5.4. Will continue current treatment regimen. Condition is chronic and stable continue to monitor. (4) Obstructive airway disease: Code(s): J44.9 - Chronic obstructive pulmonary disease, unspecified Category: Medical Plan: Condition is chronic and stable will continue to monitor. (5) Uterine cancer: Code(s): C55 - Malignant neoplasm of uterus, part unspecified Category: Medical Plan: Condition is chronic and stable will continue to monitor. (6) HTN (hypertension): Code(s): I10 - Essential (primary) hypertension Category: Medical Plan: Goal <130/80. Patient to continue furosemide 40 mg daily, lisinopril 10 mg daily. Condition is chronic and stable continue to monitor. (7) Hypercholesterolemia: Code(s): E78.00 - Pure hypercholesterolemia, unspecified Category: Medical Plan: LDL goal <70. Patient to continue atorvastatin 10 mg daily. Patient to have repeat fasting labs prior to her next appointment in May. Condition is chronic and stable will continue to monitor. (8) Hyperthyroidism: Code(s): E05.90 - Thyrotoxicosis, unspecified without thyrotoxic crisis or storm Category: Medical Plan: Patient to continue levothyroxine 112 mcg daily. Condition is chronic and stable continue to monitor. (9) Weakness of both lower extremities: Code(s): R29.898 - Other symptoms and signs involving the musculoskeletal system Category: Medical Plan: Patient utilizing wheelchair. Needs a new wheelchair. New prescription sent. Awaiting faxed to be sent over to fill out authorization paperwork. Condition is chronic and stable continue to monitor. (10) Renal abscess: Code(s): N15.1 - Renal and perinephric abscess Category: Medical Plan: Patient has follow-up with Urology/general surgery. Condition is chronic and s table continue to monitor. (11) Abscess, retroperitoneal: Code(s): K68.19 - Other retroperitoneal abscess Category: Medical Plan: Patient has follow-up with Urology/general surgery. Condition is chronic and stable continue to monitor. (12) Bilateral nephrolithiasis: Code(s): N20.0 - Calculus of kidney Category: Medical Plan: Patient has follow-up with Urology/general surgery. Condition is chronic and stable continue to monitor. Plan Plan: - Patient to follow-up with general surgery tomorrow on 04/12/2024 for further evaluation management/treatment options - patient to follow-up with urology on 05/18/2024 as scheduled - patient to follow back up with us 05/23/2024 for 6 week follow-up after her General surgery and Urology follow-up - patient to continue having VNA services by weekly for dressing change - patient to continue wound clinic visits weekly as scheduled for wound care - patient to continue her previously prescribed medication for diabetes which include metformin 500 mg extended release - patient to continue her Tylenol 1000 mg every 6 hours as needed along with Hycodan 1 tablet every 6 hours as needed for her fibromyalgia chronic pain - patient to continue furosemide 40 mg daily, lisinopril 10 mg daily for her hypertension - patient to continue atorvastatin 10 mg daily for her hypercholesterolemia - patient to continue levothyroxine 224 mcg for her hypothyroidism - patient to continue Tylenol for her osteoarthritis - patient to continue Tylenol for her chronic low back - our office will contact Lorelei to inquire about the patient's new wheelchair
[2024-04-11 13:26] VITALS: BP 132/48; PULSE 88; TEMP 36.1; O2SAT 98; BMI 35.8
--- OUTSIDE RECORDS SUMMARY | 2024-04-11 15:47 | XMS_ITS | Patient Health Record ---
[facility] Address [address] [facility] [place] [address] Care Team Providers Care Heat Treating Bluer Name Role Phone Preston Wang MD Primary Care Provider Unavail able Lucy Castro Unavailable [phone] Allergies Allergen (clinical drug ingredient) Drug/Non Drug [...] Problem Status W/U Status Risk Notes Problem 989623935 Hammer toe of le ft foot (M20.42) Active confirmed Problem [id number] Neuropathy (G62.9) Active confirmed Problem [id number] Atherosclerosi s of artery of both lower extremities (I70.203) Active confirmed Encounters Encounter Location Date Provider Diagnosis [facility] [address] [place] [address] 06/28/2023 Lucy Castro Plan Of Treatment Pending Test Test Name Order Date X ray : Foot, left 3V 08/20/2022 X ray : Foot, left 3V 09/10/2022 X ray : Foot, left 3V 10/08/2022 [id number] NAIL, 1-5 12/21/2017 [id number] DYSTROPHIC NAILS ANY # Insurance Providers Payer Name Payer Address Payer Phone Subscriber Number Group Number Insured Name Patient Relationship to Insured Coverage Start Date Coverage End Date Medicare National [employer]t [employer] [address] [facility] [place] [address] [id number] Xi Garrison Self - patient is the insured 3 [employer] Blue [employer] [address] [place] [address] [phone] [id number] 1 Xi Garrison Self - patient is [...]
--- OUTSIDE RECORDS SUMMARY | 2024-04-11 15:47 | XMS_ITS ---
Author Organization [facility] Address [address] [place] [address] Care Team Providers Care Advertising Agency Manager Name Role Phone Preston Wang MD Primary Care Provider Unavail Lucy Guadalupe Unavailable [phone] REASON FOR VISIT SD cx 06/27 Encounters Encounter Location Date Provider Diagnosis [facility] [address] [place] [address] 06/28/2023 Lucy Castro Plan Of Treatment No Information Progress Notes * Casimiro DOANineDOB: 8 (78 yo F)Acc No.[id number]:06/28/2023 Patient:?MeliKemal blantonXi :1945???Age:78 Y???Sex:Female Address:[address] [place] [address] [place] [address] * true * Date:? Generated for Nildai bre/Artur/eTransmitting on:?04/11/2024 03:47 PM EST
--- OUTSIDE RECORDS SUMMARY | 2024-04-11 15:47 | XMS_ITS ---
Author Organization [facility] Address [address] [place] [address] Care Team Providers Care Cashier Ticket Selling Name Role Phone Felipe SERNA, Preston Primary Care Provider Unavail able Lucy Castro Unavailable [phone] Encounters Encounter Location Date Provider Diagnosis [facility] [address] [place] [address] 11/26/2022 Lucy Castro Plan Of Treatment No Information Progress Notes * Casimiro DOANineDOB: 8 (79 yo F)Acc No.[id number]:11/26/2022 Progress Note Patient:?Xi DOAN Provider:?Lucy Castro DPM :1945???Age:77 Y???Sex:Female D ate:11/26/2022 Address[address] [place], [place] [address] [place] Pcp:Preston Wang MD Subjective: * Chief Complaints: [...] Castro DPM Date:? Generated for Printi bre/Fagorang/eTransmitting on:?04/11/2024 03:47 PM EST
--- OUTSIDE RECORDS SUMMARY | 2024-04-11 15:48 | XMS_ITS | Clinical Summary ---
Author Organization [facility] Address [address] [place] [address] Care Team Providers Care Dope Weigh Operator Name Role Phone Preston Wang DO Primary Care Provider [phone] Social History Tobacco Use Types Packs/Day Years [...] Documents on File Type Date Recorded Patient Mixing Place Supervisor Expl anation Health Care Decision (hx) 10/13/2017 AD ELLE DIRECTIVE Care Teams Dope Weigh Operator Relationship Specialty Start Date End Date Preston Wang DO [address] [place] [id number] PCP - General Internal Medicine 09/05/17
--- OUTSIDE RECORDS SUMMARY | 2024-04-11 15:48 | XMS_ITS ---
Author Organization [facility] Address [address] [place] [address] Care Team Providers Care Family Literacy Coordinator Name Role Phone Felipe SERNA, Preston Primary Care Provider Unavail able Lucy Castro Unavailable [phone] Encounters Encounter Location Date Provider Diagnosis [facility] [address] [place] [address] 06/28/2023 Lucy Castro Plan Of Treatment No Information Progress Notes * Casimiro DOANineDOB: 8 (79 yo F)Acc No.[id number]:06/28/2023 Progress Note Patient:?Xi DOAN Provider:?Lucy Castro DPM :1945???Age:78 Y???Sex:Female D ate:06/28/2023 Address:[address] [place] [address] [address] [place] [address] Pcp:Preston Wang MD Subjective: * Chief Complaints: * ??? * Medical History:? Objective: * Vitals:? Assessment: Plan: * Treatment: * Images: * The named appointment provid er may or may not be the originator of this progress note, and it is not deemed complete until electronically signed by the appointment provider. Sign off status: Pending * Provider:?Lucy Castro DPM Date:? Generated for Printi bre/Fanichol/eTransmitting on:?04/11/2024 03:47 PM EST
== END 2024-04-11 13:59 | disposition home or self-care (01) ==
LOC: HO.HMCSH 13:15
PROVIDERS: PCP Internal Medicine; Visit Provider Physician Assistant Medical
DX: Z09 Encounter for follow-up examination after completed treatment for conditions other than malignant neoplasm (principal); L02.91 Cutaneous abscess, unspecified; E11.9 Type 2 diabetes mellitus without complications; J44.9 Chronic obstructive pulmonary disease, unspecified; C55 Malignant neoplasm of uterus, part unspecified; I10 Essential (primary) hypertension; E78.00 Pure hypercholesterolemia, unspecified; E05.90 Thyrotoxicosis, unspecified without thyrotoxic crisis or storm; R29.898 Other symptoms and signs involving the musculoskeletal system; N15.1 Renal and perinephric abscess; K68.19 Other retroperitoneal abscess; N20.0 Calculus of kidney

== ENCOUNTER → 2024-04-11 13:15 | Outpatient (BNVA) | payer MEDICARE, SELFPAY | PROVIDERS: PCP Internal Medicine; Visit Provider Physician Assistant Medical | DX: Z09 Encounter for follow-up examination after completed treatment for conditions other than malignant neoplasm (principal); L02.91 Cutaneous abscess, unspecified; E11.9 Type 2 diabetes mellitus without complications; C55 Malignant neoplasm of uterus, part unspecified; J44.9 Chronic obstructive pulmonary disease, unspecified; I10 Essential (primary) hypertension; E78.00 Pure hypercholesterolemia, unspecified; E05.90 Thyrotoxicosis, unspecified without thyrotoxic crisis or storm; R29.898 Other symptoms and signs involving the musculoskeletal system; N15.1 Renal and perinephric abscess; K68.19 Other retroperitoneal abscess; N20.0 Calculus of kidney | CPT/HCPCS: 99495 ==

== ENCOUNTER 2024-04-12 13:56 | Outpatient (AMB) | payer MEDICARE, SELFPAY ==
--- NOTE | 2024-04-12 13:58 | MHC.OFFVIS ---
Vital Signs 04/12/24 14:05 Height 5 ft 1.25 in Weight 189 lb 9.561 oz BMI 35.5 Respiration 18 Pulse 82 Intake Visit Reasons: 2 week follow up S/P closure of colostomy Intake Note: Patient is seen in office for 2 weeks follow up visit, post closure of colostomy. Pt c/o: discharge is slowly decreasing, seen wound center on Tuesday and has another appt sched for next week, pain comes and goes worse at night time wound care:04/10/24 Coil Strapper Required: No Accompanied by: Family/Other Allergies chlorpheniramine [From TUSSIONEX] Allergy (Severe, Verified 04/12/24 14:04) HALLUCINATIONS ciprofloxacin [From CIPRO] Allergy (Severe, Verified 04/12/24 14:04) ANAPHYLAXIS escitalopram [ESCITALOPRAM] Allergy (Severe, Verified 04/12/24 14:04) DISSOCIATIVE REACTION fluoxetine [FLUOXETINE] Allergy (Severe, Verified 04/12/24 14:04) DISSOCIATIVE REACTION hydrocodone [From TUSSIONEX] Allergy (Severe, Verified 04/12/24 14:04) HALLUCINATIONS ibuprofen [IBUPROFEN] Allergy (Severe, Verified 04/12/24 14:04) THROAT SWELLING Sulfa (Sulfonamide Antibiotics) [SULFA (SULFONAMIDE ANTIBIOTICS)] Allergy (Severe, Verified 04/12/24 14:04) DYSPNEA clarithromycin [From BIAXIN] Allergy (Intermediate, Verified 04/12/24 14:04) ABD.PAIN duloxetine [DULOXETINE] Allergy (Intermediate, Verified 04/12/24 14:04) FACIAL NUMBNESS erythromycin base [ERYTHROMYCIN BASE] Allergy (Intermediate, Verified 04/12/24 14:04) RASH Penicillins [PENICILLINS] Allergy (Intermediate, Verified 04/12/24 14:04) RASH tetracycline [TETRACYCLINE] Allergy (Intermediate, Verified 04/12/24 14:04) DIARRHEA codeine [CODEINE] Allergy (Unknown, Verified 04/12/24 14:04) TINNITIS guaifenesin Allergy (Unknown, Verified 04/12/24 14:04) Unknown levofloxacin [From Levaquin] Allergy (Unknown, Verified 04/12/24 14:04) Unknown pregabalin Allergy (Unknown, Verified 04/12/24 14:04) Unknown HPI Comments Details: 79-year-old female status post closure of colostomy now with drainage from her colostomy incision. She is being followed by the wound care center. They proposed applying a wound VAC with the wound. The midline incision has now completely closed. She does have a draining sinus in the right flank from a previous retroperitoneal infection related to a kidney disease. This requires dressing changes daily. [facility] Medical History Abscess Hospital discharge follow-up Generalized abdominal pain Encounter for wheelchair assessment Diverticular disease Major depressive disorder Heel spur Chronic low back pain Uterine cancer Hyperthyroidism Weakness of both lower extremities Hydroureteronephrosis Wound infection Open wound of back, complicated Cellulitis Frequency of urination Vaginal burning Vaginal itching PMB (postmenopausal bleeding) Cirrhosis of liver Does mobilize using walker PONV (postoperative nausea and vomiting) Left foot drop Fatty liver Fibromyalgia Neuropathy RBBB Cholelithiasis Staghorn calculus Renal calculus, bilateral Renal calyceal dilation determined by ultrasound UTI (urinary tract infection) Diabetes mellitus, type II Ganglion cyst Plantar fasciitis Anxiety OA (osteoarthritis) Obstructive airway disease Hypercholesterolemia Low back pain Sciatica Hypothyroidism HTN (hypertension) Primary osteoarthritis of right knee Retained ureteral stent Renal stones Staghorn calculus Perirectal abscess Surgical History History of colostomy reversal (02/20/24) History of colectomy (~10/06/23) Status post cystoscopy with ureteral stent placement History of lumbar discectomy History of lumpectomy of both breasts History of cystoscopy History of lithotripsy Hx of colonoscopy History of surgery Family History Father Alcohol dependence Mother CHF (congestive heart failure) Cancer of breast Mother No problems noted. Other Alcoholic cirrhosis Substance use disorder Social History Household Members: Significant Other Housing: House Are you a primary healthcare customer service to a significant other at home: No Do you presently have visiting nurse or other home services: Yes 75 years or older and lives alone: No Alcohol intake: never Comment: wheelchair for long distances Patient Tobacco Use Status: Former Tobacco user Tobacco use type: Cigarette Years Smoked: 27 e-Cigarette/Vaping Use: Never Used Second Hand Smoke Exposure: Yes Advance Directives Date on File: 04/06/21 service: No Current occupational status: disabled Cognitive needs: Yes (wheelchair) Hearing needs: No Vision needs: Yes (Glasses) Review of Systems Neuro Reports confusion Psych Reports confusion Physical Exam Vital Signs: Last Vital Signs Pulse 82 04/12/24 14:05 Resp 18 04/12/24 14:05 BMI result Body Mass Index 35.5 Last Vital Signs Temp 98.4 F 03/30/24 05:43 Pulse 74 03/30/24 05:43 Resp 14 03/30/24 05:43 BP 108/40 L 03/30/24 05:43 Pulse Ox 99 03/30/24 05:43 O2 Del Method Room Air 03/30/24 05:43 BMI result Body Mass Index 31.7 Const General: no acute distress and confusion Nutritional Appearance: well nourished Orientation/consciousness: confusion Resp Effort & Inspection: normal respiratory effort, no audible wheezes and no cough GI Other: Open wound of the right flank draining purulent discharge. Dressings reapplied. No surrounding erythema is identified. Midline incision is clean, dry, and intact. The left lower quadrant colostomy incision has 1 open area measuring approximately 1.5 cm in diameter. Dressings were changed to this location with silver alginate followed by dry sterile dressings and ABD pad. Neuro General: confusion Assessment & Plan Assessment & Plan (1) Diverticular disease: Code(s): K57.90 - Diverticulosis of intestine, part unspecified, without perforation or abscess without bleeding Category: Medical Plan Patient's abdominal wounds continue to improve. She is being followed by the Wound Care Center and will soon be started with a wound VAC which I think is a good idea. Encouraged her to proceed with this next week when she returns to the Wound Care Center. She should follow up in 1 month. Coding Level of Care Code Global (91555) Diagnoses Diverticular disease K57.90
[2024-04-12 14:05] VITALS: PULSE 82; RESP 18; BMI 35.5
--- OUTSIDE RECORDS SUMMARY | 2024-04-12 17:02 | XMS_ITS ---
Author Organization [facility] Address [address] [place] [address] Care Team Providers Care Wall Insulation Sprayer Name Role Phone Preston Wang MD Primary Care Provider Unavail Lucy Guadalupe Unavailable [phone] REASON FOR VISIT SD cx 06/27 Encounters Encounter Location Date Provider Diagnosis [facility] [address] [place] [address] 06/28/2023 Lucy Castro Plan Of Treatment No Information Progress Notes * Casimiro DOANineDOB: 8 (78 yo F)Acc No.[id number]:06/28/2023 Patient:?MeliKemal blantonXi :1945???Age:78 Y???Sex:Female Address:[address] [place] [address] [place] Seg[place] [address] * true * Date:? Generated for Printi bre/Artur/eTransmitting on:?04/12/2024 05:02 PM EST
--- OUTSIDE RECORDS SUMMARY | 2024-04-12 17:03 | XMS_ITS ---
Author Organization [facility] Address [address] [place] [address] Care Team Providers Care Route Deliverer Name Role Phone Felipe SERNA, Preston Primary Care Provider Unavail able Lucy Castro Unavailable [phone] Encounters Encounter Location Date Provider Diagnosis [facility] [address] [place] [address] 11/26/2022 Lucy Castro Plan Of Treatment No Information Progress Notes * Casimiro DOANineDOB: 8 (79 yo F)Acc No.[id number]:11/26/2022 Progress Note Patient:?Xi DOAN Provider:?Lucy Castro DPM :1945???Age:77 Y???Sex:Female D ate:11/26/2022 Address:[address] [place], [place] [address] [place] DUSTIN[address] Pcp:Preston Wang MD Subjective: * Chief Complaints: [...] Castro DPM Date:? Generated for Printi bre/Fagorang/eTransmitting on:?04/12/2024 05:02 PM EST
--- OUTSIDE RECORDS SUMMARY | 2024-04-12 17:03 | XMS_ITS ---
Author Organization [facility] Address [address] [place] [address] Care Team Providers Care Head Machine Feeder Name Role Phone Felipe SERNA, Preston Primary Care Provider Unavail able Lucy Castor Unavailable [phone] Encounters Encounter Location Date Provider Diagnosis [facility] [address] [place] [address] 06/28/2023 Lucy Castro Plan Of Treatment No Information Progress Notes * Casimiro DOANineDOB: 8 (79 yo F)Acc No.[id number]:06/28/2023 Progress Note Patient:?Xi DOAN Provider:?Lucy Castro DPM :1945???Age:78 Y???Sex:Female D ate:06/28/2023 Address:[address] [place] [address] [address] [place]IN[address] Pcp:Preston Wang MD Subjective: * Chief Complaints: [...] Castro DPM Date:? Generated for Printi bre/Fanichol/eTransmitting on:?04/12/2024 05:02 PM EST
--- OUTSIDE RECORDS SUMMARY | 2024-04-12 17:03 | XMS_ITS | Clinical Summary ---
Author Organization [facility] ity Address [address] [place] [address] Care Team Providers Care Supervisor Tree Fruit [employer] Nut Farming Name Role Phone Preston Wang DO Primary Care Provider [phone] Social History Tobacco Use Types Packs/Day Years [...] Documents on File Type Date Recorded Patient Enterprise Architect Expl anation Health Care Decision (hx) 10/13/2017 AD ELLE DIRECTIVE Care Teams Supervisor [employer] Relationship Specialty Start Date End Date Preston Wang DO [address] [place] [id number] PCP - General Internal Medicine 09/05/17
--- OUTSIDE RECORDS SUMMARY | 2024-04-12 17:03 | XMS_ITS | Patient Health Record ---
[facility] Address [address] [facility] [place] Hinojosa [address] Care Team Providers Care Court Stenographer Name Role Phone Preston Wang MD Primary Care Provider Unavail able Lucy Castro Unavailable [phone] Allergies Allergen (clinical drug ingredient) Drug/Non Drug [...] Problem Status W/U Status Risk Notes Problem 426464800 Hammer toe of le ft foot (M20.42) Active confirmed Problem 237180689 Neuropathy (G62.9) Active confirmed Problem [id number] Atherosclerosi s of artery of both lower extremities (I70.203) Active confirmed Encounters Encounter Location Date Provider Diagnosis [facility] [address] [place] [address] 06/28/2023 Lucy Castro Plan Of Treatment Pending Test Test Name Order Date X ray : Foot, left 3V 08/20/2022 X ray : Foot, left 3V 09/10/2022 X ray : Foot, left 3V 10/08/2022 [id number] NAIL, 1-5 12/21/2017 [id number] DYSTROPHIC NAILS ANY # Insurance Providers Payer Name Payer Address Payer Phone Subscriber Number Group Number Insured Name Patient Relationship to Insured Coverage Start Date Coverage End Date Medicare National Govt Svcs Inc [address] [facility] [place] [address] [id number] Xi Garrison Self - patient is the insured 3 [employer] Blue Shield [address] [place] [address] [phone] [id number] 1 Xi Garrison Self - patient is [...]
== END 2024-04-12 14:17 | disposition home or self-care (01) ==
PROVIDERS: PCP Internal Medicine; Visit Provider Surgery
DX: K57.90 Diverticulosis of intestine, part unspecified, without perforation or abscess without bleeding (principal)
CPT/HCPCS: 99024

== ENCOUNTER → 2024-04-12 13:56 | Outpatient (BNVA) | payer MEDICARE, SELFPAY | PROVIDERS: PCP Internal Medicine; Visit Provider Surgery | DX: K57.90 Diverticulosis of intestine, part unspecified, without perforation or abscess without bleeding (principal) | CPT/HCPCS: 99212 ==

== ENCOUNTER 2024-04-20 06:35 | Outpatient (REF) | payer MEDICARE, SELFPAY ==
--- NOTE | ~2024-04-20 | CT_ITS ---
EXAMINATION: CT ABDOMEN PELVIS WITH IV CONTRAST HISTORY: R10.84 - Generalized abdominal pain COMPARISON: Comparison is made with the prior examination dated 03/29/2024. TECHNIQUE: CT scan of the abdomen and pelvis was performed following administration of 85 mL Omnipaque 350 using standard departmental protocol. Coronal and sagittal reformatted images were generated and reviewed. The patient received oral contrast material. This CT exam was performed with one or more of the following dose reduction techniques: automated exposure control, adjustment of the mA and/or kV according to patient size, use of iterative reconstruction technique. DLP: 679 mGy-cm FINDINGS: LOWER CHEST: The visualized lung bases are clear. There is no pleural effusion. CARDIOVASCULATURE: The heart is normal in size. There is no pericardial effusion. LIVER: The liver again demonstrates a nodular contour, with hypertrophy of the left and caudate lobes, consistent with cirrhosis. No liver mass is identified. The hepatic and portal veins are patent. GALLBLADDER / BILE DUCTS: There are multiple calculi in the gallbladder. There is no intra or extrahepatic biliary ductal dilatation. SPLEEN: The spleen is normal in size. No focal splenic lesion is identified. PANCREAS: The pancreas is unremarkable in appearance. ADRENAL GLANDS: Within normal limits. KIDNEYS/RETROPERITONEUM: A right nephroureteral stent is again seen in place. There are numerous right renal calculi measuring up to 1.6 cm in size. There is no hydronephrosis. There is a 1.6 cm cyst at the upper pole. The left kidney demonstrates a 7 mm nonobstructing at the lower pole. There is no left hydronephrosis. LYMPH NODES: No abdominal or pelvic lymphadenopathy. VASCULATURE: The abdominal aorta demonstrates atherosclerotic calcification, but is normal in caliber. MESENTERY/PERITONEUM: No free fluid. No masses. There is no free intraperitoneal gas. STOMACH: The stomach is collapsed, limiting evaluation. SMALL BOWEL: The small bowel is normal in caliber. COLON: There is inflammatory stranding about the sigmoid colon in the region of the anastomosis. There is no adjacent extraluminal gas or loculated fluid collection. APPENDIX: The appendix is not seen, however no inflammatory changes are seen adjacent to the cecum. URINARY BLADDER/PELVIC ORGANS: The urinary bladder is unremarkable. The patient is status post hysterectomy. BONES / SOFT TISSUES: There is severe degenerative disc disease of the spine. There are postsurgical changes involving the anterior abdominal wall. CT/CT abdomen pelvis w IV con IMPRESSION: 1. Inflammatory stranding about the sigmoid colon in the region of anastomosis compatible with colitis or diverticulitis. 2. Cirrhosis of the liver. 3. Right ureteral stent in place. Numerous bilateral renal calculi. Electronically signed by: Preston Austin MD 04/20/2024 09:52 AM EDT
--- OUTSIDE RECORDS SUMMARY | 2024-04-20 06:37 | XMS_ITS ---
Author Organization [facility] Address [address] [place] [address] Care Team Providers Care Pellet Mill Operator Name Role Phone Preston Wang MD Primary Care Provider Unavail Lucy Guadalupe Unavailable [phone] REASON FOR VISIT SD cx 06/27 Encounters Encounter Location Date Provider Diagnosis [facility] [address] [place] [address] 06/28/2023 Lucy Castro Plan Of Treatment No Information Progress Notes * Casimiro DOANineDOB: 8 (78 yo F)Acc No.[id number]:06/28/2023 Patient:?MeliKemal blantonXi :1945???Age:78 Y???Sex:Female Address:[address] [place] [address] [place] [address] * true * Date:? Generated for Printi ng/Fagorang/eTransmitting on:?04/20/2024 06:37 AM EDT
--- OUTSIDE RECORDS SUMMARY | 2024-04-20 06:38 | XMS_ITS | Clinical Summary ---
Author Organization [facility] ity Address [address] [place] [address] Care Team Providers Care Employee Health Nurse Name Role Phone Preston Wang DO Primary Care Provider [phone] Social History Tobacco Use Types Packs/Day Years [...] Documents on File Type Date Recorded Patient Grinder Needle Tip Expl anation Health Care Decision (hx) 10/13/2017 AD ELLE DIRECTIVE Care Teams Employee Health Nurse Relationship Specialty Start Date End Date Preston Wang DO [address] [place] [phone] PCP - General Internal Medicine 09/05/17
--- OUTSIDE RECORDS SUMMARY | 2024-04-20 06:38 | XMS_ITS | Clinical Summary ---
Author Organization Unknown Care Team Providers Care Cotton Grower Name Role Phone VLAD SERNA, BEAR Unavailable Unavailab ab KOCH RN, ABIEL Unavailable Unavailable JERROD RN, ADMISSION NURSE, MALIKA Unavail able Unavailable ANABELLA RN, SHAYY Unavailable Unavailable Payers Payer Name Policy Type Policy Number Effective Date Expira tion Date MEDICARE - [facility] [id number] [facility] [id number] Problems Condition Name Condition Details Condition Category Status Onset Date Resolution Date Last Treatment Date Treating Clinician Comments ENCNTR FOR SURGICAL AFTCR FOLLOWING SURGERY ON THE DGSTV SYS Active 04-03 00:00: 00 TYPE 2 DIABETES MELLITUS WITH DIABETIC NEUROPATHY, UNSP Active 04-03 00:00: 00 CHRONIC OBSTRUCTIVE PULMONARY DISEASE, UNSPECIFIED Active 02-07 00:00: 00 TYPE 2 DIABETES MELLITUS W DIABETIC CHRONIC KIDNEY DISEASE Active 02-07 00:00: 00 HYPERTENSIVE CHRONIC KIDNEY DISEASE W STG 1-4/UNSP CHR KDNY Active 02-07 00:00: 00 CHRONIC KIDNEY DISEASE, STAGE 3B Active 02-07 00:00: 00 ANEMIA IN CHRONIC KIDNEY DISEASE Active 02-07 00:00: 00 UNSPECIFIED HYDRONEPHROS IS Active 04-03 00:00: 00 UNSPECIFIED RIGHT BUNDLE-BRANC H BLOCK Active 04-03 00:00: 00 FATTY (CHANGE OF) LIVER, NOT ELSEWHERE CLASSIFIED Active 04-03 00:00: 00 FIBROMYALGIA Active 04-03 00:00: 00 OTHER CHRONIC PAIN Active 04-03 00:00: 00 HYPOTHYROIDI SM, UNSPECIFIED Active - 00:00: 00 MAJOR DEPRESSIVE DISORDER, SINGLE EPISODE, UNSPECIFIED Active - 00:00: 00 ANXIETY DISORDER, UNSPECIFIED Active 02-07 00:00: 00 MIXED HYPERLIPIDEM IA Active 02-07 00:00: 00 GASTRO-ESOPH AGEAL REFLUX DISEASE WITHOUT ESOPHAGITIS Active 02-07 00:00: 00 FDC (CURRENT) USE OF ORAL HYPOGLYCEMIC DRUGS Active 02-07 00:00: 00 STEREOTYPER APPRENTICE (CURRENT) USE OF OPIATE ANALGESIC Active 02-07 00:00: 00 PERSONAL HISTORY OF NICOTINE DEPENDENCE Active 04-03 00:00: 00 Allergies, Adverse Reactions, Alerts Allergy [...] 10 mg tablet 2023-02 00:00: 00 Yes [id number] 1 tablet DAILY 1 tablet DAILY (route: oral) Med Classific ation: Cardiovas cular Therapy Agents B-complex with vitamin C 400 mcg-500 mg tablet 2023-02 00:00: 00 Yes [id number] 1 tablet DAILY 1 tablet DAILY (route: oral) Med Classific ation: Electroly te Balance-N utritiona l Products clindamycin HCl 300 mg capsule -20 00:00: 00 11-10 23:59 :00 No [id number] 1 capsule EVERY 6 HOURS 1 capsule EVERY 6 HOURS (route: oral) Med Classific ation: Anti-Infe ctive Agents furosemide 40 mg tablet 2023-02 00:00: 00 Yes [id number] 1 tablet DAILY 1 tablet DAILY (route: oral) Med Classific ation: Cardiovas cular Therapy Agents levothyroxi ne 112 mcg tablet 2023-02 00:00: 00 Yes [id number] 1 tablet DAILY 1 tablet DAILY (route: oral) Med Classific ation: Endocrine metformin 500 mg tablet 2023-02 00:00: 00 Yes [id number] 1 tablet DAILY 1 tablet DAILY (route: oral) Med Classific ation: Endocrine Probiotic Acidophilus 250 million cell capsule 2023-02 00:00: 00 Yes [id number] 1 capsule DAILY 1 capsule DAILY (route: oral) Med Classific ation: Gastroint estinal Therapy Agents tramadol 50 mg tablet 2023-02 00:00: 00 Yes [id number] 1 tablet 3 TIMES DAILY 1 tablet 3 TIMES DAILY (route: oral) Med Classific ation: Analgesic , Anti-infl ammatory or Antipyret ic Vitamin D3 25 mcg (1,000 unit) capsule 2023-02 00:00: 00 Yes [id number] 2 capsule DAILY 2 capsule DAILY (route: oral) Med Classific ation: Electroly te Balance-N utritiona l Products Immunizations Ordered Immunization Name Filled Immunization Name Date Status Comments Refusal Reason COVID-19, COVID-19 2020-11-07 00:00:00 Vital Signs Vital Name Observation Time Observation Value Commen ts Temperature 2024-04-19 13:59:00.000 98.5 [degF] Temperature 2024-04-17 12:57:00.000 97.8 [degF] Temperature 2024-04-13 13:02:00.000 97.9 [degF] Temperature 2024-04-09 13:14:00.000 97.7 [degF] Temperature 2024-04-05 19:33:00.000 98 [degF] Temperature 2024-04-03 18:09:00.000 98 [degF] Temperature 2024-03-27 17:08:00.000 98 [degF] Temperature 2024-03-22 12:04:00.000 97.7 [degF] Temperature 2024-03-15 11:14:00.000 98 [degF] Temperature 2024-03-13 13:49:00.000 98 [degF] BMI (%) 2024-04-03 17:49:20.000 38 kg/m2 Height 2024-04-03 17:49:04.000 63 [in_us] Pulse 2024-04-19 13:59:00.000 76 /min Pulse 2024-04-17 12:57:00.000 83 /min Pulse 2024-04-13 13:02:00.000 82 /min Pulse 2024-04-09 13:14:00.000 62 /min Pulse 2024-04-05 19:33:00.000 78 /min Pulse 2024-04-03 18:09:00.000 70 /min Pulse 2024-03-27 17:08:00.000 70 /min Pulse 2024-03-22 12:04:00.000 72 /min Pulse 2024-03-15 11:14:00.000 67 /min Pulse 2024-03-13 13:49:00.000 70 /min O2 Saturation (%) 2024-04-19 13:59:00.000 97 % O2 Saturation (%) 2024-04-17 12:57:00.000 98 % O2 Saturation (%) 2024-04-13 13:02:00.000 98 % O2 Saturation (%) 2024-04-09 13:14:00.000 96 % O2 Saturation (%) 2024-04-05 19:33:00.000 99 % O2 Saturation (%) 2024-04-03 18:11:00.000 97 % O2 Saturation (%) 2024-03-27 17:08:00.000 97 % O2 Saturation (%) 2024-03-22 12:04:00.000 98 % O2 Saturation (%) 2024-03-15 11:14:00.000 98 % O2 Saturation (%) 2024-03-13 13:49:00.000 97 % Respirations 2024-04-19 13:59:00.000 18 /min Respirations 2024-04-17 12:57:00.000 18 /min Respirations 2024-04-13 13:02:00.000 18 /min Respirations 2024-04-09 13:14:00.000 18 /min Respirations 2024-04-05 19:33:00.000 18 /min Respirations 2024-04-03 18:09:00.000 18 /min Respirations 2024-03-27 17:08:00.000 18 /min Respirations 2024-03-22 12:04:00.000 18 /min Respirations 2024-03-15 11:14:00.000 18 /min Respirations 2024-03-13 13:49:00.000 18 /min Weight (lbs) 2024-04-03 17:49:20.000 220 [lb_av] Systolic Blood Pressure 2024-04-19 13:59:00.000 122 mm [Hg] Systolic Blood Pressure 2024-04-17 12:57:00.000 112 mm [Hg] Systolic Blood Pressure 2024-04-13 13:02:00.000 126 mm [Hg] Systolic Blood Pressure 2024-04-09 13:14:00.000 118 mm [Hg] Systolic Blood Pressure 2024-04-05 19:33:00.000 118 mm [Hg] Systolic Blood Pressure 2024-04-03 18:09:00.000 132 mm [Hg] Systolic Blood Pressure 2024-03-27 17:08:00.000 126 mm [Hg] Systolic Blood Pressure 2024-03-22 12:04:00.000 110 mm [Hg] Systolic Blood Pressure 2024-03-15 11:14:00.000 110 mm [Hg] Systolic Blood Pressure 2024-03-13 13:49:00.000 126 mm [Hg] Diastolic Blood Pressure 2024-04-19 13:59:00.000 64 mm [Hg] Diastolic Blood Pressure 2024-04-17 12:57:00.000 62 mm [Hg] Diastolic Blood Pressure 2024-04-13 13:02:00.000 58 mm [Hg] Diastolic Blood Pressure 2024-04-09 13:14:00.000 60 mm [Hg] Diastolic Blood Pressure 2024-04-05 19:33:00.000 74 mm [Hg] Diastolic Blood Pressure 2024-04-03 18:09:00.000 74 mm [Hg] Diastolic Blood Pressure 2024-03-27 17:08:00.000 [...] MAINTAIN SITUATIONAL AWARENESS AND WILL NOTIFY CLINICAL RESIDENTIAL DRIVER AND PHYSICIAN/PROVIDER WITH ANY CHANGE IN CONDITION. [code = SKILLED NURSE TO PERFORM ENVIRONMENTAL SAFETY RISK ASSESSMENT AND FALL RISK ASSESSMENT AND PROVIDE INSTRUCTION TO IMPLEMENT ENVIRONMENTAL SAFETY AND FALL PREVENTION STRATEGIES THROUGHOUT THE CERTIFICATION PERIOD. SKILLED NURSE WILL MAINTAIN SITUATIONAL AWARENESS AND WILL NOTIFY CLINICAL RESIDENTIAL DRIVER AND PHYSICIAN/PROVIDER WITH ANY CHANGE IN CONDITION.] [...] TO HEAL AND GET BETTER FAST Goal 2024-04-03 Patient Goal - I WANT TO HEAL AND GET BETTER FAST. Goal 2024-02-29 Patient Goal - I WANT TO HEAL AND GET BETTER FAST Goal 2024-03-07 Patient Goal - I WANT TO HEAL AND GET BETTER FAST. Goal Patient Goal - I WANT TO HEAL AND GET BETTER FAST. Goal Provider Goal - A PLAN OF CARE WILL BE ESTABLISHED THAT MEETS PATIENT'S LONG TERM NEEDS AND INCLUDES PATIENT GOAL FOR HOME [...] PHYSICAL ASSESSMENT FINDINGS: PT AWAKE AND ALERT VS WNL AFEBRILE LUNGS CLEAR SPEAKING IN FULL SENTENCES NAD NOTED ABD SNT POS BS DENIES PROBLEMS WITH BOWEL OR BLADDER REPORTS GOOD APPETITE GAIT SLOW STEADY. WOUND CARE PROVIDED IMPROVEMENT NOTED ABD WOUND. L FLANK SITE DRAINING LESS. STILL CLEAR FLUID OUT. REVIEW HIGH PROTEIN TO PROMOTE WOUND HEALING ENCOURAGED PT TO GET OFF SOFA AND WALK AROUND MORE. PT REPORTS STIFFNESS. REVIEWED NOT MOVING PROMOTES MUSCLE WEAKING. PT VERBALIZED UNDERSTANDING MEDICATION CHANGES: NONE HANDS ON CARE: ASSESSMENT TEACHING WOUND CARE INFECTION CONTROL TEACHING PATIENT/CAREGIVER TEACH BACK:VERBALIZED UNDERSTANDING NEXT APPOINTMENT: WOUND NEXT WEEK NEW ORDERS: N INSTRUCTED PATIENT AND CAREGIVER TO CALL [facility] WITH ANY QUESTIONS OR CHANGES IN CONDITION</paragraph> <paragraph>[Visit Date: 2024 by MALIKA ELDER RN, ADMISSION NURSE]:</paragraph><paragraph>SNV 04/17/24 1. ABNORMAL FINDINGS/SIGNIFICANT CHANGES: PATIENT'S VITAL SIGNS WITHIN SET PARAMETERS SYSTEM WITHIN NORMAL LIMITS 2. CARE COORDINATION DETAILS: NONE NEEDED 3. SKILLED PROCEDURE PERFORMED THIS VISIT: ABDOMINAL WOUND TO RIGHT THIGH HEALED COMPLETELY ABDOMINAL WOUND TO RIGHT IMPROVING SIGNIFICANTLY SMALL AMOUNT OF DRAINAGE WOUND TO LEFT FLANK DRAINING MODERATE SEROUS DRAINAGE PATIENT HAS APPOINTMENT WITH VIDEOTAPE EDITOR ON 04/20/24 4. NEXT PHYSICIAN/PROVIDER APPT: WOUND CLINIC 04/18/24, CT SCAN OF KIDNEY 04/20/24 5. PLAN/FOLLOW-UP NEEDED FOR NEXT VISIT: WOUND CARE INFECTION CONTROL EDUCATION DIABETES EDUCATION ADDRESS ABOVE APPROPRIATE IN NARRATIVE BELOW: PATIENT ALERT ORIENTATED X3 LAYING IN HER COUCH WHEN THIS NURSE ARRIVED PATIENT WOUND CARE COMPLETED PATIENT TOLERATED WELL DID REPORT SOME DISCOMFORT WHEN DOING DRESSING CHANGE PATIENT EDUCATED ON TRYING TO RELIEVE SOME PRESSURE FROM HER LEFT FLANK TO STAND OR SIT FOR A LITTLE BIT PATIENT VERBALIZES UNDERSTANDING PATIENT EDUCATED ON INFECTION CONTROL PATIENT EDUCATED ON DIABETES SIGNS AND SYMPTOMS OF HYPO AND HYPERGLYCEMIA PATIENT NOT CHECK HER BLOOD SUGARS PATIENT'S LUNG SOUNDS CLEAR NO WHEEZING NO CRACKLES BOWEL SOUNDS X4 LAST BOWEL MOVEMENT TODAY PATIENT AND CAREGIVER EDUCATED ON CALLING [facility] FOR ANY CONCERNS OR CHANGE IN CONDITION PATIENT AND CAREGIVER EDUCATED ON NEXT SN VISIT BOTH AGREED WITH PLAN.</paragraph> Encounters Start Date/Time End Date/Time Encounter Type Admission Type Attending [facility] Care Department Encounter ID Discharge Date Discharge Status Discharge Condition Discharge Reason Percent Goals Met 2023-11-09 00:00:00 2024-05-06 00:00:00 Outpatient RECERTIFIC ATION SHAYY KYLE [facility] [id number] 65.63
--- OUTSIDE RECORDS SUMMARY | 2024-04-20 06:38 | XMS_ITS | Patient Health Record ---
[facility] Address [address] [facility] [place] [address] Care Team Providers Care Waxer Floor Name Role Phone Preston Wang MD Primary Care Provider Unavail able Lucy Castro Unavailable [phone] Allergies Allergen (clinical drug ingredient) Drug/Non Drug Allergy documented on EMR Reaction Allergy Type Onset Date Status ibuprofen Advil Throat swelling Drug Allergy A ctive Aleve Throat swelling Drug Allergy A ctive Bactrim abdomainal Pain Drug Allergy A ctive Biaxin rash Drug Allergy Active cefaclor Cefaclor [...] Problem Status W/U Status Risk Notes Problem 829395185 Hammer toe of le ft foot (M20.42) Active confirmed Problem 921329557 Neuropathy (G62.9) Active confirmed Problem [id number] Atherosclerosi s of artery of both lower extremities (I70.203) Active confirmed Encounters Encounter Location Date Provider Diagnosis [facility] [address] [place] [address] 06/28/2023 Lucy Castro Plan Of Treatment Pending Test Test Name Order Date X ray : Foot, left 3V 08/20/2022 X ray : Foot, left 3V 09/10/2022 X ray : Foot, left 3V 10/08/2022 [id number] NAIL, 1-5 12/21/2017 [id number] DYSTROPHIC NAILS ANY # Insurance Providers Payer Name Payer Address Payer Phone Subscriber Number Group Number Insured Name Patient Relationship to Insured Coverage Start Date Coverage End Date Medicare National Govt [employer] [address] [facility] [place] [address] [id number] Xi Garrison Self - patient is the insured 3 [employer] Blue [employer] [address] [place] [address] [phone] [id number] Xi Garrison Self - patient is [...]
--- OUTSIDE RECORDS SUMMARY | 2024-04-20 06:38 | XMS_ITS ---
Author Organization [facility] Address [address] [place] [address] Care Team Providers Care Segment Producer Name Role Phone Felipe SERNA, Preston Primary Care Provider Unavail able Lucy Castro Unavailable [phone] Encounters Encounter Location Date Provider Diagnosis [facility] [address] [place] [address] 11/26/2022 Lucy Castro Plan Of Treatment No Information Progress Notes * Casimiro DOANineDOB: 8 (79 yo F)Acc No.[id number]:11/26/2022 Progress Note Patient:?Xi DOAN Provider:?Lucy Castro DPM :1945???Age:77 Y???Sex:Female D ate:11/26/2022 Address:[address] [place], [place] [address] Pcp:Preston Wang MD Subjective: * Chief Complaints: * ??? * Medical History:? Objective: * Vitals:? Assessment: Plan: * Treatment: * Images: * The named appointment provid er may or may not be the originator of this progress note, and it is not deemed complete until electronically signed by the appointment provider. Sign off status: Pending * Provider:?Lucy Castro DPM Date:? Generated for Printi ng/Faxing/eTransmitting on:?04/20/2024 06:37 AM EDT
--- OUTSIDE RECORDS SUMMARY | 2024-04-20 06:38 | XMS_ITS ---
Author Organization [facility] Address [address] [place] [address] Care Team Providers Care Felt Pad Cutter Name Role Phone Felipe SERNA, Preston Primary Care Provider Unavail able Lucy Castro Unavailable [phone] Encounters Encounter Location Date Provider Diagnosis [facility] [address] [place] [address] 06/28/2023 Lucy Castro Plan Of Treatment No Information Progress Notes * Casimiro DOANineDOB: 8 (79 yo F)Acc No.[id number]:06/28/2023 Progress Note Patient:?Xi DOAN Provider:?Lucy Castro DPM :1945???Age:78 Y???Sex:Female D ate:06/28/2023 Address:[address] [place], [place] [address] [place] Pcp:Preston Wang MD Subjective: * Chief Complaints: [...] Castro DPM Date:? Generated for Printi ng/Fagorang/eTransmitting on:?04/20/2024 06:37 AM EDT
[2024-04-20] MEDS: iohexoL 350 MG/ML 100 ML INFUS..BTL 85 ML IV (09:31)
[2024-04-20] MEDS: Barium Sulfate Oral (Berry) 450 ML ORAL.SUSP 900 ML PO (09:32)
== END 2024-04-20 06:36 | disposition home or self-care (01) ==
LOC: HO.CT 06:35
PROVIDERS: PCP Internal Medicine; Visit Provider Physician Assistant Medical
DX: R10.84 Generalized abdominal pain (principal)
CPT/HCPCS: 74177; Q9967

== ENCOUNTER → 2024-04-20 06:37 | Outpatient (BNV) | payer MEDICARE, SELFPAY | PROVIDERS: PCP Internal Medicine; Visit Provider Radiology Diagnostic Radiology | DX: K74.60 Unspecified cirrhosis of liver (principal); N20.0 Calculus of kidney | CPT/HCPCS: 74177 ==

== ENCOUNTER 2024-05-02 14:50 | Outpatient (AMB) | payer MEDICARE, SELFPAY ==
--- NOTE | 2024-05-02 14:51 | A.OFFPC_ITS ---
Vital Signs 05/02/24 14:51 Weight 197 lb Intake Visit Reasons: vaginal pain Intake Note: no other issues Allergies chlorpheniramine [From TUSSIONEX] Allergy (Severe, Verified 05/02/24 15:05) HALLUCINATIONS ciprofloxacin [From CIPRO] Allergy (Severe, Verified 05/02/24 15:05) ANAPHYLAXIS escitalopram [ESCITALOPRAM] Allergy (Severe, Verified 05/02/24 15:05) DISSOCIATIVE REACTION fluoxetine [FLUOXETINE] Allergy (Severe, Verified 05/02/24 15:05) DISSOCIATIVE REACTION hydrocodone [From TUSSIONEX] Allergy (Severe, Verified 05/02/24 15:05) HALLUCINATIONS ibuprofen [IBUPROFEN] Allergy (Severe, Verified 05/02/24 15:05) THROAT SWELLING Sulfa (Sulfonamide Antibiotics) [SULFA (SULFONAMIDE ANTIBIOTICS)] Allergy (Severe, Verified 05/02/24 15:05) DYSPNEA clarithromycin [From BIAXIN] Allergy (Intermediate, Verified 05/02/24 15:05) ABD.PAIN duloxetine [DULOXETINE] Allergy (Intermediate, Verified 05/02/24 15:05) FACIAL NUMBNESS erythromycin base [ERYTHROMYCIN BASE] Allergy (Intermediate, Verified 05/02/24 15:05) RASH Penicillins [PENICILLINS] Allergy (Intermediate, Verified 05/02/24 15:05) RASH tetracycline [TETRACYCLINE] Allergy (Intermediate, Verified 05/02/24 15:05) DIARRHEA codeine [CODEINE] Allergy (Unknown, Verified 05/02/24 15:05) TINNITIS guaifenesin Allergy (Unknown, Verified 05/02/24 15:05) Unknown levofloxacin [From Levaquin] Allergy (Unknown, Verified 05/02/24 15:05) Unknown pregabalin Allergy (Unknown, Verified 05/02/24 15:05) Unknown Medication List - Last Reconciled 05/02/24 by Margarita Powell PA-C acetaminophen 1,000 mg PO Q6H PRN atorvastatin 10 mg PO DAILY chair, wheel (Wheel chair) As directed; Manual 20 inch travel wheelchair with seat cushion and foot rests; Height 5ft 1.25 inches; Weight 191 lbs; ; QUANTITY OF 1; length of need 99 cholecalciferol (vitamin D3) (Vitamin D3) 50 mcg PO DAILY fluconazole 150 mg PO Q3D 2 doses furosemide 40 mg PO DAILY hydrocodone-acetaminophen 5-325 mg 1 tab PO Q4-6H PRN levothyroxine 224 mcg PO SUWE@0600 lisinopril 10 mg PO DAILY metformin ER 1 tab PO DAILY@1700 pyridoxine (vitamin B6) 50 mg PO DAILY pyridoxine (vitamin B6) (Vitamin B-6) 100 mg PO DAILY tramadol 50 mg PO BID PRN tramadol 50 mg PO DAILY Tobacco use date assessed: 02/15/24 Dental Screening Dental Screen Date: 02/15/24 [facility] Medical History Abscess Hospital discharge follow-up Generalized abdominal pain Encounter for wheelchair assessment Diverticular disease Major depressive disorder Heel spur Chronic low back pain Uterine cancer Hyperthyroidism Weakness of both lower extremities Hydroureteronephrosis Wound infection Open wound of back, complicated Cellulitis Frequency of urination Vaginal burning Vaginal itching PMB (postmenopausal bleeding) Cirrhosis of liver Does mobilize using walker PONV (postoperative nausea and vomiting) Left foot drop Fatty liver Fibromyalgia Neuropathy RBBB Cholelithiasis Staghorn calculus Renal calculus, bilateral Renal calyceal dilation determined by ultrasound UTI (urinary tract infection) Diabetes mellitus, type II Ganglion cyst Plantar fasciitis Anxiety OA (osteoarthritis) Obstructive airway disease Hypercholesterolemia Low back pain Sciatica Hypothyroidism HTN (hypertension) Primary osteoarthritis of right knee Retained ureteral stent Renal stones Staghorn calculus Perirectal abscess Surgical History History of colostomy reversal (02/20/24) History of colectomy (~10/06/23) Status post cystoscopy with ureteral stent placement History of lumbar discectomy History of lumpectomy of both breasts History of cystoscopy History of lithotripsy Hx of colonoscopy History of surgery Family History Father Alcohol dependence Mother CHF (congestive heart failure) Cancer of breast Mother No problems noted. Other Alcoholic cirrhosis Substance use disorder Social History Household Members: Significant Other Housing: House Are you a primary child care associate to a significant other at home: No Do you presently have visiting nurse or other home services: Yes 75 years or older and lives alone: No Alcohol intake: never Comment: wheelchair for long distances Patient Tobacco Use Status: Former Tobacco user Tobacco use type: Cigarette Years Smoked: 27 e-Cigarette/Vaping Use: Never Used Second Hand Smoke Exposure: Yes Advance Directives Date on File: 04/06/21 service: No Current occupational status: disabled Cognitive needs: Yes (wheelchair) Hearing needs: No Vision needs: Yes (Glasses) Questionnaire Thrive Questionnaire Date Thrive assessed: 03/30/24 RAMONE-7 AMB Questionnaire RAMONE-7 Date RAMONE - 7 assessed: 02/15/24 Source: Developed by Drs. Preston Aponte, Jojo Holland, Subhash Richmond and colleagues, with an educational vernon from [employer]. Physical exam (Primary Care) Tobacco/Smoking Status: Tobacco use Status Tobacco use date assessed 02/15/24 05/02/24 14:56 Patient Tobacco Use Status Former Tobacco user 05/02/24 14:56 Tobacco use type Cigarette 05/02/24 14:56 e-Cigarette/Vaping Use Never Used 05/02/24 14:56 Thrive Assessment: Date of Thrive Assessment Date Thrive assessed 03/30/24 05/02/24 14:56 Telehealth Telehealth Telehealth Platform: [facility] Location of provider rendering services: practice address Location of patient: address on file Patient Identification confirmed using: Name, : Yes Telehealth method: voice only Patient verbally consented to treatment: Yes Patient verbally consented to billing insurance company: Yes Patient informed of any privacy concerns related to visit: Yes Minutes spent on Phone/Video with Pt.: 10 Coding Level of Care Code Tele Est Pt Level 2 (60236) Diagnoses Vaginitis N76.0 Assessment & Plan Assessment & Plan (1) Vaginitis: Code(s): N76.0 - Acute vaginitis Category: Medical Plan: I suspect vulvovaginal candidiasis due to recent antibiotic use. Prescribed fluconazole (Diflucan) to be taken once today and again in three days. Provided a refill for continued management if symptoms don't resolve. Further testing with a urine culture will only be considered if symptoms persist beyond Tuesday. Plan Plan Patient was informed and verbally consented to the use of an ambient scribe for clinic note documentation during this visit. 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 Monitoring needed for potential adverse effects, particularly Tiki infections. Patient instructed to notify if symptoms persist post-antifungal treatment. 2. Acute candidiasis of vulva and vagina I suspect vulvovaginal candidiasis due to recent antibiotic use. Prescribed fluconazole (Diflucan) to be taken once today and again in three days. Provided a refill for continued management if symptoms don't resolve. Further testing with a urine culture will only be considered if symptoms persist beyond Tuesday. Discussion Notes During the consultation, I discussed the potential diagnosis of vulvovaginal candidiasis with the patient. I explained that her recent antibiotic use might have contributed to this condition. The treatment plan involves administering fluconazole, with administration as outlined: one dose today and a repeat after three days. I reviewed potential side effects, including skin rash and gastrointestinal upset, though these are rare. Should symptoms not improve or worsen, I advised conducting further testing, such as a urine culture, to eliminate possibilities like a urinary tract infection or bacterial vaginosis. It was reiterated to the patient to maintain communication regarding symptom pr ogression and to report back by Tuesday if no improvement is noted. Medications: New fluconazole 150 mg PO Q3D 2 tabs 1RF yeast infection 2 doses Patient Instructions: Patient Instructions - Take fluconazole (Diflucan) today and repeat in three days as directed. - Monitor symptoms and seek medical advice if not improved by Tuesday. - Use the provided refill if symptoms persist without improvement. - Notify immediately if any new symptoms develop. - Ensure hydration and follow general hygiene practices. - Contact promptly if experiencing adverse effects from medications or worsening symptoms. Scribe Plan - Not visible on output: History of Present Illness The patient is a 79-year-old female presenting with symptoms suggestive of vulvovaginal candidiasis, including vulvar itching and burning. These symptoms occurred after a recent course of the antibiotic cefpodoxime proxetil. The patient denies vaginal discharge and dysuria, but reports a slight increase in urinary frequency. There is a history of previous yeast infection, with no recollection of bacterial vaginosis. The patient's recent antibiotic use is a potential contributing factor to her current condition. Notably, she denies having diabetes, which is often a predisposing condition for yeast infections. Review of Systems - Genitourinary: Reports vulvar itching and burning. Denies vaginal discharge and urinary burning. Reports increased urinary frequency but not significantly. - Endocrine: Denies diabetes.
== END 2024-05-02 15:13 | disposition home or self-care (01) ==
LOC: HO.HMCSH 14:50
PROVIDERS: PCP Internal Medicine; Visit Provider Physician Assistant Medical
DX: N76.0 Acute vaginitis (principal)

== ENCOUNTER 2024-05-17 11:16 | Outpatient (REF) | payer MEDICARE, SELFPAY ==
[2024-05-17 12:51] LABS: Appearance Urine Turbid; Color Urine Yellow; Glucose Urine UA Negative (Negative); Leukocyte Esterase Urine Large (3+) (Negative); Nitrite Urine Positive (Negative); PH 6.5 (5.0-9.0); UMIC TRIGGER UACC YES; Urine Blood Moderate (2+) (Negative); Urine Ketones Negative (Negative); Urine Protein 30 (1+) mg/dL (Neg-Trace)
[2024-05-17 12:54] LABS: Bacteria Urine 1+ (None Seen); RBC Urine >20 /HPF (0-2); Squamous Epithelial Cell Urine 0-2 /HPF (0-2); UACC Culture Trigger YES; WBC Urine >50 /HPF (0-5)
--- OUTSIDE RECORDS SUMMARY | 2024-05-17 14:31 | XMS_ITS | Clinical Summary ---
Author Organization [facility] ity Address [address] [place] [address] Care Team Providers Care Data Science And Iot Manager Name Role Phone Preston Wang DO Primary Care Provider [phone] Social History Tobacco Use Types Packs/Day Years [...] Documents on File Type Date Recorded Patient Sparmaker Expl anation Health Care Decision (hx) 10/13/2017 AD ELLE DIRECTIVE Care Teams Data Science And Iot Manager Relationship Specialty Start Date End Date Preston Wang DO [address] [place] [id number] PCP - General Internal Medicine 09/05/17
--- OUTSIDE RECORDS SUMMARY | 2024-05-17 14:31 | XMS_ITS | Clinical Summary ---
Author Organization Unknown Care Team Providers Care Electric Motor Repairing Supervisor Name Role Phone VLAD SERNA, BEAR Unavailable Unavailab ab KOCH RN, ABIEL Unavailable Unavailable JERROD RN, ADMISSION NURSE, MALIKA Unavail able Unavailable ANABELLA RN, SHAYY Unavailable Unavailable Payers Payer Name Policy Type Policy Number Effective Date Expira tion Date MEDICARE - [facility] [id number] [facility] [id number] Problems Condition Name Condition Details Condition Category [...] DISEASE WITHOUT ESOPHAGITIS Active 02-07 00:00: 00 [facility] (CURRENT) USE OF ORAL HYPOGLYCEMIC DRUGS Active [...] 10 mg tablet 2023-02 00:00: 00 Yes [id number] 1 tablet DAILY 1 tablet DAILY (route: oral) Med Classific ation: Cardiovas cular Therapy Agents B-complex with vitamin C 400 mcg-500 mg tablet 2023-02 00:00: 00 Yes [id number] 1 tablet DAILY 1 tablet DAILY (route: oral) Med Classific ation: Electroly te Balance-N utritiona l Products clindamycin HCl 300 mg capsule -20 00:00: 00 11-10 23:59 :00 No [id number] 1 capsule EVERY 6 HOURS 1 capsule EVERY 6 HOURS (route: oral) Med Classific ation: Anti-Infe ctive Agents furosemide 40 mg tablet 2023-02 00:00: 00 Yes [id number] 1 tablet DAILY 1 tablet DAILY (route: oral) Med Classific ation: Cardiovas cular Therapy Agents levothyroxi ne 112 mcg tablet 2023-02 00:00: 00 04-25 23:59 :00 No [id number] 1 tablet DAILY 1 tablet DAILY (route: oral) Med Classific ation: Endocrine metformin 500 mg tablet 2023-02 00:00: 00 Yes [id number] 1 tablet DAILY 1 tablet DAILY (route: oral) Med Classific ation: Endocrine Probiotic Acidophilus 250 million cell capsule 2023-02 00:00: 00 Yes [id number] 1 capsule DAILY 1 capsule DAILY (route: oral) Med Classific ation: Gastroint estinal Therapy Agents tramadol 50 mg tablet 2023-02 00:00: 00 Yes [id number] 1 tablet 3 TIMES DAILY 1 tablet 3 TIMES DAILY (route: oral) Med Classific ation: Analgesic , Anti-infl ammatory or Antipyret ic Vitamin D3 25 mcg (1,000 unit) capsule 2023-02 00:00: 00 Yes [id number] 2 capsule DAILY 2 capsule DAILY (route: oral) Med Classific ation: Electroly te Balance-N utritiona l Products acetaminoph en 500 mg tablet 04-02 00:00: 00 Yes [id number] 2 tablet EVERY 6 HOURS 2 tablet EVERY 6 HOURS (route: oral) Med Classific ation: Analgesic , Anti-infl ammatory or Antipyret ic hydrocodone 5 mg-acetamin ophen 325 mg tablet 04-02 00:00: 00 Yes [id number] 1 tablet EVERY 4 HOURS 1 tablet EVERY 4 HOURS (route: oral) Med Classific ation: Analgesic , Anti-infl ammatory or Antipyret ic levothyroxi ne 112 mcg tablet 04-02 00:00: 00 Yes [id number] 2 tablet DAILY 2 tablet DAILY (route: oral) Med Classific ation: Endocrine levothyroxi ne 112 mcg tablet 04-02 00:00: 00 Yes [id number] 1 tablet DAILY 1 tablet DAILY (route: [...] MAINTAIN SITUATIONAL AWARENESS AND WILL NOTIFY CLINICAL PILATES COORDINATOR AND PHYSICIAN/PROVIDER WITH ANY CHANGE IN CONDITION. [code = SKILLED NURSE TO PERFORM ENVIRONMENTAL SAFETY RISK ASSESSMENT AND FALL RISK ASSESSMENT AND PROVIDE INSTRUCTION TO IMPLEMENT ENVIRONMENTAL SAFETY AND FALL PREVENTION STRATEGIES THROUGHOUT THE CERTIFICATION PERIOD. SKILLED NURSE WILL MAINTAIN SITUATIONAL AWARENESS AND WILL NOTIFY CLINICAL PILATES COORDINATOR AND PHYSICIAN/PROVIDER WITH ANY CHANGE IN CONDITION.] [...] AGENCY OR PHYSICIAN/PROVIDER OF ANY CONCERNS.] Goal 2024-04-03 Patient Goal - I WANT [...] CARE WILL BE ESTABLISHED THAT MEETS PATIENT'S RETIREMENT NEEDS AND INCLUDES PATIENT GOAL FOR HOME [...] NONE INSTRUCTED PATIENT AND CAREGIVER TO CALL [facility] CARING WITH ANY QUESTIONS OR CHANGES IN CONDITION</paragraph> Encounters Start Date/Time End Date/Time Encounter Type Admission Type Attending [facility] Care Facility Care Department Encounter ID Discharge Date Discharge Status Discharge Condition Discharge Reason Percent Goals Met 2023-11-09 00:00:00 2024-07-05 00:00:00 Outpatient RECERTIFIC ATION SHAYY KYLE [facility] [id number] 18.18
== END 2024-05-17 11:17 | disposition home or self-care (01) ==
LOC: HO.LAB 11:16
PROVIDERS: Absent Provider Physician Assistant Medical; PCP Internal Medicine; Visit Provider Surgery
DX: K57.90 Diverticulosis of intestine, part unspecified, without perforation or abscess without bleeding (principal); R30.0 Dysuria
CPT/HCPCS: 81001; 87086; 87088; 87186; 99212

== ENCOUNTER 2024-05-17 11:16 | Outpatient (AMB) | payer MEDICARE, SELFPAY ==
--- NOTE | 2024-05-17 11:13 | MHC.OFFVIS ---
Vital Signs 05/17/24 11:28 Height 5 ft 1.25 in Weight 196 lb 3.382 oz BMI 36.8 Intake Visit Reasons: 1 mth follow up S/P closure of colostomy Intake Note: Patient is seen in office for one month follow up visit, post closure of colostomy. Pt c/o: decided to not have the wound vac placed, instead a wick was placed and is waiting to be scheduled by the wound center, states she is tired and sore and hurting, VNA twice a week, a bit red around the wound per nurse wound center:05/02/24 Research Epidemiologist Required: No Accompanied by: Spouse Allergies chlorpheniramine [From TUSSIONEX] Allergy (Severe, Verified 05/17/24 11:29) HALLUCINATIONS ciprofloxacin [From CIPRO] Allergy (Severe, Verified 05/17/24 11:) ANAPHYLAXIS escitalopram [ESCITALOPRAM] Allergy (Severe, Verified 05/17/24 11:) DISSOCIATIVE REACTION fluoxetine [FLUOXETINE] Allergy (Severe, Verified 05/17/24 11:29) DISSOCIATIVE REACTION hydrocodone [From TUSSIONEX] Allergy (Severe, Verified 05/17/24 11:29) HALLUCINATIONS ibuprofen [IBUPROFEN] Allergy (Severe, Verified 05/17/24 11:29) THROAT SWELLING Sulfa (Sulfonamide Antibiotics) [SULFA (SULFONAMIDE ANTIBIOTICS)] Allergy (Severe, Verified 05/17/24 11:29) DYSPNEA clarithromycin [From BIAXIN] Allergy (Intermediate, Verified 05/17/24 11:29) ABD.PAIN duloxetine [DULOXETINE] Allergy (Intermediate, Verified 05/17/24 11:29) FACIAL NUMBNESS erythromycin base [ERYTHROMYCIN BASE] Allergy (Intermediate, Verified 05/17/24 11:29) RASH Penicillins [PENICILLINS] Allergy (Intermediate, Verified 05/17/24 11:29) RASH tetracycline [TETRACYCLINE] Allergy (Intermediate, Verified 05/17/24 11:29) DIARRHEA codeine [CODEINE] Allergy (Unknown, Verified 05/17/24 11:) TINNITIS guaifenesin Allergy (Unknown, Verified 05/17/24 11:) Unknown levofloxacin [From Levaquin] Allergy (Unknown, Verified 05/17/24 11:) Unknown pregabalin Allergy (Unknown, Verified 05/17/24 11:) Unknown HPI Comments Details: 79-year-old female status post closure of colostomy now with drainage from her colostomy incision. She is being followed by the wound care center. They have decided to avoid the wound VAC and a using packing. The abdominal wounds are now healed with no further drainage. She does have drainage from the right lateral wounds. In general she feels weak and tired. [facility] Medical History Dysuria Abscess Hospital discharge follow-up Generalized abdominal pain Encounter for wheelchair assessment Diverticular disease Major depressive disorder Heel spur Chronic low back pain Uterine cancer Hyperthyroidism Weakness of both lower extremities Hydroureteronephrosis Wound infection Open wound of back, complicated Cellulitis Frequency of urination Vaginal burning Vaginal itching PMB (postmenopausal bleeding) Cirrhosis of liver Does mobilize using walker PONV (postoperative nausea and vomiting) Left foot drop Fatty liver Fibromyalgia Neuropathy RBBB Cholelithiasis Staghorn calculus Renal calculus, bilateral Renal calyceal dilation determined by ultrasound UTI (urinary tract infection) Diabetes mellitus, type II Ganglion cyst Plantar fasciitis Anxiety OA (osteoarthritis) Obstructive airway disease Hypercholesterolemia Low back pain Sciatica Hypothyroidism HTN (hypertension) Primary osteoarthritis of right knee Retained ureteral stent Renal stones Staghorn calculus Perirectal abscess Surgical History History of colostomy reversal (02/20/24) History of colectomy (~10/06/23) Status post cystoscopy with ureteral stent placement History of lumbar discectomy History of lumpectomy of both breasts History of cystoscopy History of lithotripsy Hx of colonoscopy History of surgery Family History Father Alcohol dependence Mother CHF (congestive heart failure) Cancer of breast Mother No problems noted. Other Alcoholic cirrhosis Substance use disorder Social History Household Members: Significant Other Housing: House Are you a primary pet care technician to a significant other at home: No Do you presently have visiting nurse or other home services: Yes 75 years or older and lives alone: No Alcohol intake: never Comment: wheelchair for long distances Patient Tobacco Use Status: Former Tobacco user Tobacco use type: Cigarette Years Smoked: 27 e-Cigarette/Vaping Use: Never Used Second Hand Smoke Exposure: Yes Advance Directives Date on File: 04/06/21 service: No Current occupational status: disabled Cognitive needs: Yes (wheelchair) Hearing needs: No Vision needs: Yes (Glasses) Review of Systems Neuro Reports confusion Psych Reports confusion Physical Exam Vital Signs: BMI result Body Mass Index 36.8 Last Vital Signs Temp 98.4 F 03/30/24 05:43 Pulse 74 03/30/24 05:43 Resp 14 03/30/24 05:43 BP 108/40 L 03/30/24 05:43 Pulse Ox 99 03/30/24 05:43 O2 Del Method Room Air 03/30/24 05:43 BMI result Body Mass Index 31.7 Const General: confusion Nutritional Appearance: well nourished Orientation/consciousness: confusion Resp Effort & Inspection: normal respiratory effort, no audible wheezes and no cough GI Other: Open wound of the right flank draining purulent discharge. Wound appears very shallow currently. Frederika foam dressing applied. No surrounding erythema is identified. Midline incision and colostomy incision is now well healed. Sterile dressing was applied to the colostomy incision. Neuro General: confusion Assessment & Plan Assessment & Plan (1) Diverticular disease: Code(s): K57.90 - Diverticulosis of intestine, part unspecified, without perforation or abscess without bleeding Category: Medical Plan Patient's abdominal wounds continue to improve. She is being followed by the Wound Care Center and I have asked her to return approximately 1 month for follow-up examination. Coding Level of Care Code Global (24471) Diagnoses Diverticular disease K57.90
[2024-05-17 11:28] VITALS: BMI 36.8
--- OUTSIDE RECORDS SUMMARY | 2024-05-17 13:41 | XMS_ITS | Clinical Summary ---
Author Organization [facility] ity Address [address] [place] [address] Care Team Providers Care Linoleum Printer Name Role Phone Preston Wang DO Primary Care Provider [phone] Social History Tobacco Use Types Packs/Day Years [...] Vaccines (1 of 2) 1997 RSV Immunization Adult Patie nts (1 - 1-dose 75+ series) 2022 COVID-19 Vaccine (2023-2 5 season) 2023 Influenza Vaccine (Season Ended) 2024 HIB Vaccines Aged Out No longer eligi [...] age to complete this topic Meningococcal B Vaccine Aged Out No l onger eligible based on patient's age to complete this topic RSV Immunization Patients Un will 20 months Aged Out No longer eligible b ased on patient's age to complete this topic Varicella Vaccines Aged Out No longer eligible based on patient's age to complete this topic Advance Directives Documents on File Type Date Recorded Patient Policy And Planning Manager Expl anation Health Care Decision (hx) 10/13/2017 AD ELLE DIRECTIVE Care Teams Linoleum Printer Relationship Specialty Start Date End Date Preston Wang DO [address] [place] [id number] PCP - General Internal Medicine 09/05/17
--- OUTSIDE RECORDS SUMMARY | 2024-05-17 13:41 | XMS_ITS | Clinical Summary ---
Author Organization Unknown Care Team Providers Care Process Supervisor Name Role Phone VLAD SERNA, BEAR Unavailable Unavailab ab KOCH RN, ABIEL Unavailable Unavailable JERROD RN, ADMISSION NURSE, MALIKA Unavail able Unavailable ANABELLA RN, SHAYY Unavailable Unavailable Payers Payer Name Policy Type Policy Number Effective Date Expira tion Date MEDICARE - [facility] [place] [id number] [facility] [id number] Problems Condition Name Condition Details Condition Category Status Onset Date Resolution Date Last Treatment Date Treating Clinician Comments CUTANEOUS ABSCESS OF BACK [ANY PART, EXCEPT BUTTOCK] Active 02-07 00:00: 00 ENCNTR FOR SURGICAL AFTCR FOLLOWING SURGERY ON THE DGSTV SYS Active 02-07 00:00: 00 TYPE 2 DIABETES MELLITUS WITH DIABETIC NEUROPATHY, UNSP Active 02-07 00:00: 00 CHRONIC OBSTRUCTIVE PULMONARY DISEASE, UNSPECIFIED Active 02-07 00:00: 00 TYPE 2 DIABETES MELLITUS W DIABETIC CHRONIC KIDNEY DISEASE Active 02-07 00:00: 00 HYPERTENSIVE CHRONIC KIDNEY DISEASE W STG 1-4/UNSP CHR KDNY Active 02-07 00:00: 00 CHRONIC KIDNEY DISEASE, STAGE 3B Active 02-07 00:00: 00 ANEMIA IN CHRONIC KIDNEY DISEASE Active 02-07 00:00: 00 UNSPECIFIED RIGHT BUNDLE-BRANC H BLOCK Active 02-07 00:00: 00 FATTY (CHANGE OF) LIVER, NOT ELSEWHERE CLASSIFIED Active 02-07 00:00: 00 FIBROMYALGIA Active 02-07 00:00: 00 OTHER CHRONIC PAIN Active 02-07 00:00: 00 HYPOTHYROIDI SM, UNSPECIFIED Active 02-07 00:00: 00 MAJOR DEPRESSIVE DISORDER, SINGLE EPISODE, UNSPECIFIED Active 02-07 00:00: 00 ANXIETY DISORDER, UNSPECIFIED Active 02-07 00:00: 00 MIXED HYPERLIPIDEM IA Active 02-07 00:00: 00 GASTRO-ESOPH AGEAL REFLUX DISEASE WITHOUT ESOPHAGITIS Active 02-07 00:00: 00 ALF (CURRENT) USE OF ORAL HYPOGLYCEMIC DRUGS Active 02-07 00:00: 00 PERSONAL HISTORY OF NICOTINE DEPENDENCE Active 02-07 00:00: 00 Allergies, Adverse Reactions, [...] 10 mg tablet 2023-02 00:00: 00 Yes [id number] 1 tablet DAILY 1 tablet DAILY (route: oral) Med Classific ation: Cardiovas cular Therapy Agents B-complex with vitamin C 400 mcg-500 mg tablet 2023-02 00:00: 00 Yes [id number] 1 tablet DAILY 1 tablet DAILY (route: oral) Med Classific ation: Electroly te Balance-N utritiona l Products clindamycin HCl 300 mg capsule -20 00:00: 00 11-10 23:59 :00 No [id number] 1 capsule EVERY 6 HOURS 1 capsule EVERY 6 HOURS (route: oral) Med Classific ation: Anti-Infe ctive Agents furosemide 40 mg tablet 2023-02 00:00: 00 Yes [id number] 1 tablet DAILY 1 tablet DAILY (route: oral) Med Classific ation: Cardiovas cular Therapy Agents levothyroxi ne 112 mcg tablet 2023-02 00:00: 00 04-25 23:59 :00 No [id number] 1 tablet DAILY 1 tablet DAILY (route: oral) Med Classific ation: Endocrine metformin 500 mg tablet 2023-02 00:00: 00 Yes [id number] 1 tablet DAILY 1 tablet DAILY (route: oral) Med Classific ation: Endocrine Probiotic Acidophilus 250 million cell capsule 2023-02 00:00: 00 Yes [id number] 1 capsule DAILY 1 capsule DAILY (route: oral) Med Classific ation: Gastroint estinal Therapy Agents tramadol 50 mg tablet 2023-02 00:00: 00 Yes [id number] 1 tablet 3 TIMES DAILY 1 tablet 3 TIMES DAILY (route: oral) Med Classific ation: Analgesic , Anti-infl ammatory or Antipyret ic Vitamin D3 25 mcg (1,000 unit) capsule 2023-02 00:00: 00 Yes [id number] 2 capsule DAILY 2 capsule DAILY (route: oral) Med Classific ation: Electroly te Balance-N utritiona l Products acetaminoph en 500 mg tablet 04-02 00:00: 00 Yes [id number] 2 tablet EVERY 6 HOURS 2 tablet EVERY 6 HOURS (route: oral) Med Classific ation: Analgesic , Anti-infl ammatory or Antipyret ic hydrocodone 5 mg-acetamin ophen 325 mg tablet 04-02 00:00: 00 Yes [id number] 1 tablet EVERY 4 HOURS 1 tablet EVERY 4 HOURS (route: oral) Med Classific ation: Analgesic , Anti-infl ammatory or Antipyret ic levothyroxi ne 112 mcg tablet 04-02 00:00: 00 Yes [id number] 2 tablet DAILY 2 tablet DAILY (route: oral) Med Classific ation: Endocrine levothyroxi ne 112 mcg tablet 04-02 00:00: 00 Yes [id number] 1 tablet DAILY 1 tablet DAILY (route: oral) Med Classific ation: Endocrine Immunizations Ordered Immunization Name Filled Immunization Name Date Status Comments Refusal Reason COVID-19, COVID-19 2020-11-07 00:00:00 Vital Signs Vital Name Observation Time Observation Value Commen ts Temperature 2024-05-15 18:08:00.000 98 [degF] Temperature 2024-05-10 19:08:00.000 97.3 [degF] Temperature 2024-05-08 13:09:00.000 97.6 [degF] Pulse 2024-05-15 18:08:00.000 76 /min Pulse 2024-05-10 19:08:00.000 74 /min Pulse 2024-05-08 13:09:00.000 62 /min O2 Saturation (%) 2024-05-15 18:08:00.000 97 % O2 Saturation (%) 2024-05-10 19:08:00.000 97 % O2 Saturation (%) 2024-05-08 13:09:00.000 97 % Respirations 2024-05-15 18:08:00.000 18 /min Respirations 2024-05-10 19:08:00.000 18 /min Respirations 2024-05-08 13:09:00.000 18 /min Systolic Blood Pressure 2024-05-15 18:08:00.000 128 mm [Hg] Systolic Blood Pressure 2024-05-10 19:08:00.000 128 mm [Hg] Systolic Blood Pressure 2024-05-08 13:09:00.000 126 mm [Hg] Diastolic Blood Pressure 2024-05-15 18:08:00.000 72 mm [Hg] Diastolic Blood Pressure 2024-05-10 19:08:00.000 76 mm [Hg] Diastolic Blood Pressure 2024-05-08 13:09:00.000 80 mm [Hg] Plan of Treatment Planned Activity [...] Future Scheduled Test SKILLED NU RSE FOR INSTRUCTION/ REINFORCEMENT OF NEEDS RELATED TO NUTRITION/HYDRATION. [code = SKILLED NURSE FOR INSTRUCTION/ REINFORCEMENT OF NEEDS RELATED TO NUTRITION/HYDRATION.] Future Scheduled Test SKILLED NU RSE FOR O/A, TEACHING RELATED TO GERD FOR EARLY IDENTIFICATION OF EXACERBATION OF DISEASE PROCESS. [code = SKILLED NURSE FOR O/A, TEACHING RELATED TO GERD FOR EARLY IDENTIFICATION OF EXACERBATION OF DISEASE PROCESS.] Future Scheduled Test SKILLED NU RSE FOR [...] AND INFECTION CONTROL MEASURES.] Future Scheduled Test SKILLED NU RSE TO INSTRUCT/REINFORCE MEASURES TO PREVENT BARRIERS TO CARE. [code = SKILLED NURSE TO INSTRUCT/REINFORCE MEASURES TO PREVENT BARRIERS TO CARE.] Future Scheduled Test NEED FOR S KILLED TEACHING AND INTERVENTION RIGHT LATERAL FLANK CLEANED WITH NORMAL SALINE PAT DRY, USE SKIN PREP TO PERIWOUND, PACK WITH PLAIN PACKING, COVER WITH WOVEN GAUZE SECURED WITH MEDIPORE SOFT CLOTH SURGICAL TAPE CHANGE QOD CG ABLE TO PERFORM LLQ ABD WOUND CLEANSE WITH NORMAL SALINE PAT DRY CALCIUM ALGINATE AG TO WOUND BED COVER WITH DRY CLEAN DSG CHANGE 3X WEEK CG ABLE TO PERFORM WOUND CARE WILL BE PERFORMED BY TRAINED CAREGIVER ON DAYS WHEN SKILLED NURSE IS NOT SCHEDULED FOR A VISIT. DISCONTINUE WOUND CARE/SUPPLIES ONCE WOUND IS HEALED. [code = NEED FOR SKILLED TEACHING AND INTERVENTION RIGHT LATERAL FLANK CLEANED WITH NORMAL SALINE PAT DRY, USE SKIN PREP TO PERIWOUND, PACK WITH PLAIN PACKING, COVER WITH WOVEN GAUZE SECURED WITH MEDIPORE SOFT CLOTH SURGICAL TAPE CHANGE QOD CG ABLE TO PERFORM LLQ ABD WOUND CLEANSE WITH NORMAL SALINE PAT DRY CALCIUM ALGINATE AG TO WOUND BED COVER WITH DRY CLEAN DSG CHANGE 3X WEEK CG ABLE TO PERFORM WOUND CARE WILL BE PERFORMED BY TRAINED [...] SYMPTOMS HYPO/HYPERGLYCEMIA TO REPORT.] Future Scheduled Test PATIENT DE [...] MAINTAIN SITUATIONAL AWARENESS AND WILL NOTIFY CLINICAL LEGAL RECOVERY SPECIALIST AND PHYSICIAN/PROVIDER WITH ANY CHANGE IN CONDITION. [code = SKILLED NURSE TO PERFORM ENVIRONMENTAL SAFETY RISK ASSESSMENT AND FALL RISK ASSESSMENT AND PROVIDE INSTRUCTION TO IMPLEMENT ENVIRONMENTAL SAFETY AND FALL PREVENTION STRATEGIES THROUGHOUT THE CERTIFICATION PERIOD. SKILLED NURSE WILL MAINTAIN SITUATIONAL AWARENESS AND WILL NOTIFY CLINICAL LEGAL RECOVERY SPECIALIST AND PHYSICIAN/PROVIDER WITH ANY CHANGE IN CONDITION.] [...] PATIENT/CAREGIVER ON MEASURES TO PREVENT PRESSURE ULCERS.] Future Scheduled Test SKILLED NU RSE TO PROVIDE ASSESSMENT AND TEACHING/REINFORCEMENT OF MANAGEMENT OF DEPRESSION INCLUDING DISEASE PROCESS, MEDICATION MANAGEMENT, COPING SKILLS AND IDENTIFY CHANGES ASSOCIATED WITH DEPRESSIVE DISORDERS FOR EARLY INTERVENTION. [code = SKILLED NURSE TO PROVIDE ASSESSMENT AND TEACHING/REINFORCEMENT OF MANAGEMENT OF DEPRESSION INCLUDING DISEASE PROCESS, MEDICATION MANAGEMENT, COPING SKILLS AND IDENTIFY CHANGES ASSOCIATED WITH DEPRESSIVE DISORDERS FOR EARLY INTERVENTION. ] Future Scheduled Test SKILLED NU RSE TO REVIEW PATIENT MEDICATIONS (PRESCRIPTION/OTC). INSTRUCT PATIENT/CAREGIVER ON ALL MEDICATIONS INCLUDING PURPOSE, WHEN TO TAKE, IMPORTANCE OF MEDICATION ADHERENCE, MONITORING OF EFFECTIVENESS, ADVERSE DRUG REACTIONS, POSSIBLE SIDE EFFECTS, AND WHEN TO NOTIFY AGENCY OR PHYSICIAN/PROVIDER OF ANY CONCERNS. [code = SKILLED NURSE TO REVIEW PATIENT MEDICATIONS (PRESCRIPTION/OTC). INSTRUCT PATIENT/CAREGIVER ON ALL MEDICATIONS INCLUDING PURPOSE, WHEN TO TAKE, IMPORTANCE OF MEDICATION ADHERENCE, MONITORING OF EFFECTIVENESS, ADVERSE DRUG REACTIONS, POSSIBLE SIDE EFFECTS, AND WHEN TO NOTIFY AGENCY OR PHYSICIAN/PROVIDER OF ANY CONCERNS.] Goal 2024-01-06 Patient Goal - I WANT [...] TO HEAL AND GET BETTER FAST. Goal 2024-05-03 Patient Goal - I WANT TO HEAL AND GET BETTER FAST. Goal Provider Goal - A PLAN OF CARE WILL BE ESTABLISHED THAT MEETS PATIENT'S LONGTERM NEEDS AND INCLUDES PATIENT GOAL FOR HOME HEALTH. Goal Provider Goal - SYMPTOMS OF ANXIETY ARE IDENTIFIED AND INTERVENTIONS INITIATED TO ENABLE PATIENT TO UNDERSTAND AND MANAGE FEELINGS THROUGHOUT EPISODE. Goal Provider Goal - PATIENT/CAREGIVER WILL DEMONSTRATE ABILITY TO SELF MANAGE NEEDS RELATED TO NUTRITION/HYDRATION THROUGHOUT THE EPISODE. Goal Provider Goal - EXACERBATIONS OF GASTROINTESTINAL DISEASE WILL BE PROMPTLY IDENTIFIED AND INTERVENTIONS IMPLEMENTED TO MINIMIZE RISKS TO PATIENT BY END OF EPISODE. Goal Provider Goal [...] CERTIFICATION PERIOD. Goal Provider Goal - PATIENT / CAREGIVER WILL VERBALIZE UNDERSTANDING OF BARRIERS PREVENTING PROPER CARE AND DEMONSTRATE MEASURES TO ELIMINATE THOSE BARRIERS DURING THIS EPISODE. Goal Provider Goal - WOUND CARE WILL [...] ULCER PREVENTION BY END OF THE EPISODE. Goal Provider Goal - PATIENT/CAREGIVER WILL VERBALIZE/DEMONSTRATE UNDERSTANDING OF THE MANAGEMENT OF DEPRESSION THROUGHOUT THE CERTIFICATION PERIOD AND SYMPTOMS ARE IDENTIFIED AND MANAGED TO MAINTAIN PATIENT SAFETY IN THE HOME. Goal Provider Goal - PATIENT/CAREGIVER WILL VERBALIZE UNDERSTANDING OF EDUCATION PROVIDED ON MEDICATIONS BY THE END OF THE CERTIFICATION PERIOD. Progress Notes Progress Notes <paragraph>[Visit Date: 2024 by SHAYY BOYINGTON RN]:</paragraph><paragraph>SNV ABNORMAL VITALS: WNL FALLS:N PHYSICAL ASSESSMENT FINDINGS: PT AWAKE AND ALERT VS WNL AFEBRILE LUNGS CLEAR DIM THROUGHOUT SPEAKING IN FULL SENTENCES NAD NOTED ABD SNT POS BS DENIES PROBLEMS WITH BOWEL OR BLADDER APPETITE GOO WOUND CARE PROVIDED PT SYED WELL REVIEWED INFECTION CONTROL. CG PERFORMS ON NON. URSE DAYS. MEDICATION CHANGES: NONE HANDS ON CARE: ASSESSMENT TEACHING TEACHING PROVIDED: INFECTION CONTROL WOUND CARE. HYGIENE REVIEWED PATIENT/CAREGIVER TEACH BACK: NEXT APPOINTMENT: UROLOGIST MICHA NEW ORDERS: NONE INSTRUCTED PATIENT AND CAREGIVER TO CALL [facility] CARING WITH ANY QUESTIONS OR CHANGES IN CONDITION</paragraph> Encounters Start Date/Time End Date/Time Encounter Type Admission Type Attending [facility] Care Facility Care Department Encounter ID Discharge Date Discharge Status Discharge Condition Discharge Reason Percent Goals Met 2023-11-09 00:00:00 2024-07-05 00:00:00 Outpatient RECERTIFIC ATION SHAYY KYLE [facility] [id number] 18.18
== END 2024-05-17 11:41 | disposition home or self-care (01) ==
LOC: HO.HGS 11:17
PROVIDERS: PCP Internal Medicine; Visit Provider Surgery
DX: K57.90 Diverticulosis of intestine, part unspecified, without perforation or abscess without bleeding (principal)
CPT/HCPCS: 99024

== ENCOUNTER 2024-05-18 10:31 | Outpatient (AMB) | payer MEDICARE, SELFPAY ==
--- NOTE | 2024-05-18 10:40 | A.OFFVIS_ITS ---
Intake Visit Reasons: Kidney Problems Intake Note: Patient is present for KIDNEY PROBLEMS Urology Medication:VITAMIN B6 Antibiotic Allergy:CIPROFLOXACIN,SULFA,CLARITHROMYCIN,ERYTHROMYCIN,PENICILLINS,LEVOFLOXACIN ,PREGABALIN Blood Thinner:NONE Missile Control Pilot Required: No Allergies chlorpheniramine [From TUSSIONEX] Allergy (Severe, Verified 06/15/24 11:02) HALLUCINATIONS ciprofloxacin [From CIPRO] Allergy (Severe, Verified 06/15/24 11:02) ANAPHYLAXIS escitalopram [ESCITALOPRAM] Allergy (Severe, Verified 06/15/24 11:02) DISSOCIATIVE REACTION fluoxetine [FLUOXETINE] Allergy (Severe, Verified 06/15/24 11:02) DISSOCIATIVE REACTION hydrocodone [From TUSSIONEX] Allergy (Severe, Verified 06/15/24 11:02) HALLUCINATIONS ibuprofen [IBUPROFEN] Allergy (Severe, Verified 06/15/24 11:02) THROAT SWELLING Sulfa (Sulfonamide Antibiotics) [SULFA (SULFONAMIDE ANTIBIOTICS)] Allergy (Severe, Verified 06/15/24 11:02) DYSPNEA clarithromycin [From BIAXIN] Allergy (Intermediate, Verified 06/15/24 11:02) ABD.PAIN duloxetine [DULOXETINE] Allergy (Intermediate, Verified 06/15/24 11:02) FACIAL NUMBNESS erythromycin base [ERYTHROMYCIN BASE] Allergy (Intermediate, Verified 06/15/24 11:02) RASH Penicillins [PENICILLINS] Allergy (Intermediate, Verified 06/15/24 11:02) RASH tetracycline [TETRACYCLINE] Allergy (Intermediate, Verified 06/15/24 11:02) DIARRHEA codeine [CODEINE] Allergy (Unknown, Verified 06/15/24 11:02) TINNITIS guaifenesin Allergy (Unknown, Verified 06/15/24 11:02) Unknown levofloxacin [From Levaquin] Allergy (Unknown, Verified 06/15/24 11:02) Unknown pregabalin Allergy (Unknown, Verified 06/15/24 11:02) Unknown HPI Comments Details: Xi is a pleasant female. She is a patient of Dr. Wang. She is seen for the following urologic conditions - nephrolithiasis - recurrent UTI Entering the stent in place right side Schedule removal in operating room with retrograde Nephrolithiasis Multiple prior in admission for infection and staghorn - treatment had concurrent abscess 6 months after initial ureteroscopy Intervention - 03/31 right-sided ureteroscopy laser lithotripsy and stent placement - 06/28 completion right ureteroscopy with left ureteroscopy Stone composition - 03/31 Carbonate Apatite (Dahllite) 100% - 06/28 calcium oxalate Imaging - 03/31 CT scan 4 cm right staghorn calculus, 6 mm left Therapeutic plan - suppression antibiotics for recurrent UTI PFSH Medical History Anemia Mechanical complication of urethral stent Urinary tract infection due to ESBL Klebsiella Blood per rectum Dysuria Abscess Hospital discharge follow-up Generalized abdominal pain Encounter for wheelchair assessment Diverticular disease Major depressive disorder Heel spur Chronic low back pain Uterine cancer Hyperthyroidism Weakness of both lower extremities Hydroureteronephrosis Wound infection Open wound of back, complicated Cellulitis Frequency of urination Vaginal burning Vaginal itching PMB (postmenopausal bleeding) Cirrhosis of liver Does mobilize using walker PONV (postoperative nausea and vomiting) Left foot drop Fatty liver Fibromyalgia Neuropathy RBBB Cholelithiasis Staghorn calculus Renal calculus, bilateral Renal calyceal dilation determined by ultrasound UTI (urinary tract infection) Diabetes mellitus, type II Ganglion cyst Plantar fasciitis Anxiety OA (osteoarthritis) Obstructive airway disease Hypercholesterolemia Low back pain Sciatica Hypothyroidism HTN (hypertension) Primary osteoarthritis of right knee Retained ureteral stent Renal stones Staghorn calculus Perirectal abscess Surgical History History of colostomy reversal (02/20/24) History of colectomy (~10/06/23) Status post cystoscopy with ureteral stent placement History of lumbar discectomy History of lumpectomy of both breasts History of cystoscopy History of lithotripsy Hx of colonoscopy (~04/28/23) History of surgery Family History Father Alcohol dependence Mother CHF (congestive heart failure) Cancer of breast Mother No problems noted. Other Alcoholic cirrhosis Substance use disorder Social History Household Members: Significant Other Housing: House Are you a primary home care music therapist to a significant other at home: No Do you presently have visiting nurse or other home services: Yes (vna) Alcohol intake: current Alcohol intake frequency: does not drink Alcohol type: hard liquor Comment: wheelchair for long distances Patient Tobacco Use Status: Former Tobacco user Tobacco use type: Cigarette Years Smoked: 27 e-Cigarette/Vaping Use: Never Used Second Hand Smoke Exposure: Yes Advance Directives Date on File: 04/06/21 service: No Current occupational status: disabled Cognitive needs: Yes (wheelchair) Hearing needs: No Vision needs: Yes (Glasses) Review of Systems Const Denies chills and Denies fever(s) Card Reports no additional complaints and Denies syncope Resp Denies cough GI Denies abdominal pain and Denies heartburn Reports as per HPI and Denies change in libido Neuro Denies syncope Psych Denies change in libido Endo Denies change in libido Physical Exam Const General: cooperative, healthy appearing, comfortable and no acute distress Orientation/consciousness: patient oriented x3 HEENT Face and sinus: Yes normal facial exam Mouth: moist mucous membranes Neck Neck: Yes normal visual inspection, Yes full ROM and Yes trachea midline Chest Chest palpation & inspection: normal inspection of the chest Resp Effort & Inspection: normal respiratory effort, able to speak in complete sentences and no respiratory distress GI Inspection: Yes normal to inspection Back/Spine/Pelvis Cervical Spine: normal cervical lordosis Thoracic/Lumbar Spine: thoracic and lumbar spine normal to inspection Skin General skin exam: no rashes or lesions noted Neuro General: patient oriented x3, gait normal, tone normal and moves all extremities Extrem General: Yes normal to inspection and Yes capillary refill normal Assessment & Plan Assessment & Plan (1) Ureteral stent present: Code(s): Z96.0 - Presence of urogenital implants Category: Medical (2) Bilateral nephrolithiasis: Code(s): N20.0 - Calculus of kidney Category: Medical Plan Risks, benefits and alternatives to therapy were discussed. These include but are not limited to infection, bleeding, damage to local organs and tissues, need for further interventions. Anesthetic risks regarding cardiac arrhythmia, blood clots, and potential mortality were discussed. The patient understands the typical recovery time and the outpatient nature of the procedure. After consideration of these risks the patient gives full informed consent and they wish to move ahead with the procedure. Cystoscopy with stent removal and retrograde Patient Instructions: This note is constructed using voice recognition software. While every effort has been made to ensure accuracy torpedo man errors may have been included. Imaging studies, laboratory and physical exam results were discussed and reviewed in detail. No major barriers to patient understanding were identified. An opportunity to ask questions regarding the treatment plan was provided. All questions were answered. The patient expressed understanding and agreement with the above treatment plan. The patient is aware they should contact our office by phone for worsening of their current condition or the appearance of new urologic symptoms. Compliance is encouraged with any medications and followup testing that is ordered. It is a privilege to participate in the urologic care of your patient. If you have any questions or concerns regarding treatment for the above conditions, or other urologic issues, please do not hesitate to contact me. The office telephone contact is [phone]. Sincerely, Dr Jose Reis MD, [facility] - Urology Compassionate Specialist Care for the Genitourinary System Coding Level of Care Code Est Pt Level 3 (05294) Diagnoses Ureteral stent present Z96.0 Bilateral nephrolithiasis N20.0
--- OUTSIDE RECORDS SUMMARY | 2024-05-18 11:21 | XMS_ITS | Clinical Summary ---
Author Organization Unknown Care Team Providers Care Gauntlet Pairer Name Role Phone VLAD SERNA, BEAR Unavailable Unavailab ab KOCH RN, ABIEL Unavailable Unavailable JERROD RN, ADMISSION NURSE, MALIKA Unavail able Unavailable ANABELLA RN, SHAYY Unavailable Unavailable Payers Payer Name Policy Type Policy Number Effective Date Expira tion Date MEDICARE - [facility] [id number] [facility] [id number] Problems Condition Name Condition Details Condition Category [...] DISEASE WITHOUT ESOPHAGITIS Active 02-07 00:00: 00 [facility] [...] 10 mg tablet 2023-02 00:00: 00 Yes [id number] 1 tablet DAILY 1 tablet DAILY (route: oral) Med Classific ation: Cardiovas cular Therapy Agents B-complex with vitamin C 400 mcg-500 mg tablet 2023-02 00:00: 00 Yes [id number] 1 tablet DAILY 1 tablet DAILY (route: oral) Med Classific ation: Electroly te Balance-N utritiona l Products clindamycin HCl 300 mg capsule -20 00:00: 00 11-10 23:59 :00 No [id number] 1 capsule EVERY 6 HOURS 1 capsule EVERY 6 HOURS (route: oral) Med Classific ation: Anti-Infe ctive Agents furosemide 40 mg tablet 2023-02 00:00: 00 Yes [id number] 1 tablet DAILY 1 tablet DAILY (route: oral) Med Classific ation: Cardiovas cular Therapy Agents levothyroxi ne 112 mcg tablet 2023-02 00:00: 00 04-25 23:59 :00 No [id number] 1 tablet DAILY 1 tablet DAILY (route: oral) Med Classific ation: Endocrine metformin 500 mg tablet 2023-02 00:00: 00 Yes [id number] 1 tablet DAILY 1 tablet DAILY (route: oral) Med Classific ation: Endocrine Probiotic Acidophilus 250 million cell capsule 2023-02 00:00: 00 Yes [id number] 1 capsule DAILY 1 capsule DAILY (route: oral) Med Classific ation: Gastroint estinal Therapy Agents tramadol 50 mg tablet 2023-02 00:00: 00 Yes [id number] 1 tablet 3 TIMES DAILY 1 tablet 3 TIMES DAILY (route: oral) Med Classific ation: Analgesic , Anti-infl ammatory or Antipyret ic Vitamin D3 25 mcg (1,000 unit) capsule 2023-02 00:00: 00 Yes [id number] 2 capsule DAILY 2 capsule DAILY (route: oral) Med Classific ation: Electroly te Balance-N utritiona l Products acetaminoph en 500 mg tablet 04-02 00:00: 00 Yes [id number] 2 tablet EVERY 6 HOURS 2 tablet EVERY 6 HOURS (route: oral) Med Classific ation: Analgesic , Anti-infl ammatory or Antipyret ic hydrocodone 5 mg-acetamin ophen 325 mg tablet 04-02 00:00: 00 Yes [id number] 1 tablet EVERY 4 HOURS 1 tablet EVERY 4 HOURS (route: oral) Med Classific ation: Analgesic , Anti-infl ammatory or Antipyret ic levothyroxi ne 112 mcg tablet 04-02 00:00: 00 Yes [id number] 2 tablet DAILY 2 tablet DAILY (route: oral) Med Classific ation: Endocrine levothyroxi ne 112 mcg tablet 04-02 00:00: 00 Yes [id number] 1 tablet DAILY 1 tablet DAILY (route: [...] MAINTAIN SITUATIONAL AWARENESS AND WILL NOTIFY CLINICAL CRACK OFF PERSON AND PHYSICIAN/PROVIDER WITH ANY CHANGE IN CONDITION. [code = SKILLED NURSE TO PERFORM ENVIRONMENTAL SAFETY RISK ASSESSMENT AND FALL RISK ASSESSMENT AND PROVIDE INSTRUCTION TO IMPLEMENT ENVIRONMENTAL SAFETY AND FALL PREVENTION STRATEGIES THROUGHOUT THE CERTIFICATION PERIOD. SKILLED NURSE WILL MAINTAIN SITUATIONAL AWARENESS AND WILL NOTIFY CLINICAL CRACK OFF PERSON AND PHYSICIAN/PROVIDER WITH ANY CHANGE IN CONDITION.] [...] NONE INSTRUCTED PATIENT AND CAREGIVER TO CALL [facility] CARING WITH ANY QUESTIONS OR CHANGES IN CONDITION</paragraph> Encounters Start Date/Time End Date/Time Encounter Type Admission Type Attending [facility] Care Department Encounter ID Discharge Date Discharge Status Discharge Condition Discharge Reason Percent Goals Met 2023-11-09 00:00:00 2024-07-05 00:00:00 Outpatient RECERTIFIC ATION SHAYY KYLE [facility] [id number] 18.18
--- OUTSIDE RECORDS SUMMARY | 2024-05-18 11:22 | XMS_ITS | Clinical Summary ---
Author Organization [facility] ity Address [address] [place] [address] Care Team Providers Care Angular Developer Name Role Phone Preston Wang DO Primary Care Provider [phone] Social History Tobacco Use Types Packs/Day Years [...] Documents on File Type Date Recorded Patient Cigarette Carton Sealer Expl anation Health Care Decision (hx) 10/13/2017 AD ELLE DIRECTIVE Care Teams Angular Developer Relationship Specialty Start Date End Date Preston Wang DO [address] [place] [id number] PCP - General Internal Medicine 09/05/17
== END 2024-05-18 12:21 | disposition home or self-care (01) ==
LOC: HO.HUSH 10:32
PROVIDERS: PCP Internal Medicine; Visit Provider Urology
DX: Z96.0 Presence of urogenital implants (principal); N20.0 Calculus of kidney
CPT/HCPCS: 99213

== ENCOUNTER → 2024-05-18 10:31 | Outpatient (BNVA) | payer MEDICARE, SELFPAY | PROVIDERS: PCP Internal Medicine; Visit Provider Urology | DX: N20.0 Calculus of kidney (principal); Z96.0 Presence of urogenital implants | CPT/HCPCS: 99212 ==

== ENCOUNTER → 2024-05-18 23:59 | Outpatient (BNV) | payer MEDICARE, SELFPAY | PROVIDERS: PCP Internal Medicine; Visit Provider Internal Medicine | DX: L02.212 Cutaneous abscess of back [any part, except buttock and flank] (principal); E11.40 Type 2 diabetes mellitus with diabetic neuropathy, unspecified; E11.22 Type 2 diabetes mellitus with diabetic chronic kidney disease; N18.32 Chronic kidney disease, stage 3b | CPT/HCPCS: G0179 ==

== ENCOUNTER 2024-05-19 10:31 | Outpatient (REF) | payer MEDICARE, SELFPAY ==
[2024-05-20 11:58] LABS: Bacterial Vaginosis PCR NEGATIVE (Negative); Candida Group PCR NOT DETECTED (Not Detect); Candida glab krusei PCR NOT DETECTED (Not Detect); Trichomonas vaginalis PCR NOT DETECTED (Not Detect)
== END 2024-05-19 10:32 | disposition home or self-care (01) ==
LOC: HO.LAB 10:31
PROVIDERS: Physician Assistant; PCP Internal Medicine
DX: N89.8 Other specified noninflammatory disorders of vagina (principal); R30.0 Dysuria
CPT/HCPCS: 81003; 81515; 99212

== ENCOUNTER 2024-05-19 10:31 | Outpatient (AMB) | payer MEDICARE, SELFPAY ==
--- OUTSIDE RECORDS SUMMARY | 2024-05-19 10:33 | XMS_ITS | Clinical Summary ---
Author Organization [facility] ity Address [address] [place] [address] Care Team Providers Care Polymerization Oven Tender Name Role Phone Preston Wang DO Primary Care Provider [phone] Social History Tobacco Use Types Packs/Day Years [...] Documents on File Type Date Recorded Patient Recreational Specialist Expl anation Health Care Decision (hx) 10/13/2017 AD ELLE DIRECTIVE Care Teams Polymerization Oven Tender Relationship Specialty Start Date End Date Preston Wang DO [address] [place] [id number] PCP - General Internal Medicine 09/05/17
--- NOTE | 2024-05-19 12:44 | MHC.OFFWIV ---
Intake Vital Signs 05/19/24 12:54 Height 5 ft 1 in BP 120/60 Blood Pressure Location Lt brachial Position Sitting Pulse 86 Pulse Source Pulse Oximeter Pulse Oximetry (%) 97 Oxygen Delivery Method Room Air Intake Visit Reasons: EP Recurring UTI Patient Tobacco Use Status: Former Tobacco user Allergies chlorpheniramine [From TUSSIONEX] Allergy (Severe, Verified 05/19/24 12:55) HALLUCINATIONS ciprofloxacin [From CIPRO] Allergy (Severe, Verified 05/19/24 12:55) ANAPHYLAXIS escitalopram [ESCITALOPRAM] Allergy (Severe, Verified 05/19/24 12:55) DISSOCIATIVE REACTION fluoxetine [FLUOXETINE] Allergy (Severe, Verified 05/19/24 12:55) DISSOCIATIVE REACTION hydrocodone [From TUSSIONEX] Allergy (Severe, Verified 05/19/24 12:55) HALLUCINATIONS ibuprofen [IBUPROFEN] Allergy (Severe, Verified 05/19/24 12:55) THROAT SWELLING Sulfa (Sulfonamide Antibiotics) [SULFA (SULFONAMIDE ANTIBIOTICS)] Allergy (Severe, Verified 05/19/24 12:55) DYSPNEA clarithromycin [From BIAXIN] Allergy (Intermediate, Verified 05/19/24 12:55) ABD.PAIN duloxetine [DULOXETINE] Allergy (Intermediate, Verified 05/19/24 12:55) FACIAL NUMBNESS erythromycin base [ERYTHROMYCIN BASE] Allergy (Intermediate, Verified 05/19/24 12:55) RASH Penicillins [PENICILLINS] Allergy (Intermediate, Verified 05/19/24 12:55) RASH tetracycline [TETRACYCLINE] Allergy (Intermediate, Verified 05/19/24 12:55) DIARRHEA codeine [CODEINE] Allergy (Unknown, Verified 05/19/24 12:55) TINNITIS guaifenesin Allergy (Unknown, Verified 05/19/24 12:55) Unknown levofloxacin [From Levaquin] Allergy (Unknown, Verified 05/19/24 12:55) Unknown pregabalin Allergy (Unknown, Verified 05/19/24 12:55) Unknown Do you need a note to return to daycare/school/sports/work: No HPI HPI Comments History of Present Illness Details Nelda presents with persistent vaginal burning and a confirmed urinary tract infection (UTI). She reports experiencing burning in her vagina all the time, not just during urination. The patient's symptoms began prior to April when she saw her provider for similar complaints. At that time, a yeast infection was suspected, and Diflucan was prescribed, but it did not alleviate her symptoms. She was subsequently tested for a UTI in the emergency room, which Margarita confirmed, but she did not take antibiotics at that time. On May 17, Dr. Martinez prescribed cefdinir, which the patient has not yet started. A urine test today confirmed a UTI with positive nitrates and leukocytes. The patient has been prescribed cefdinir for the UTI and Pyridium for symptom relief of the burning sensation. [facility] Medical History Dysuria Abscess Hospital discharge follow-up Generalized abdominal pain Encounter for wheelchair assessment Diverticular disease Major depressive disorder Heel spur Chronic low back pain Uterine cancer Hyperthyroidism Weakness of both lower extremities Hydroureteronephrosis Wound infection Open wound of back, complicated Cellulitis Frequency of urination Vaginal burning Vaginal itching PMB (postmenopausal bleeding) Cirrhosis of liver Does mobilize using walker PONV (postoperative nausea and vomiting) Left foot drop Fatty liver Fibromyalgia Neuropathy RBBB Cholelithiasis Staghorn calculus Renal calculus, bilateral Renal calyceal dilation determined by ultrasound UTI (urinary tract infection) Diabetes mellitus, type II Ganglion cyst Plantar fasciitis Anxiety OA (osteoarthritis) Obstructive airway disease Hypercholesterolemia Low back pain Sciatica Hypothyroidism HTN (hypertension) Primary osteoarthritis of right knee Retained ureteral stent Renal stones Staghorn calculus Perirectal abscess Surgical History History of colostomy reversal (02/20/24) History of colectomy (~10/06/23) Status post cystoscopy with ureteral stent placement History of lumbar discectomy History of lumpectomy of both breasts History of cystoscopy History of lithotripsy Hx of colonoscopy History of surgery Family History Father Alcohol dependence Mother CHF (congestive heart failure) Cancer of breast Mother No problems noted. Other Alcoholic cirrhosis Substance use disorder Social History Household Members: Significant Other Housing: House Are you a primary personal care home administrator to a significant other at home: No Do you presently have visiting nurse or other home services: Yes 75 years or older and lives alone: No Alcohol intake: never Comment: wheelchair for long distances Patient Tobacco Use Status: Former Tobacco user Tobacco use type: Cigarette Years Smoked: 27 e-Cigarette/Vaping Use: Never Used Second Hand Smoke Exposure: Yes Advance Directives Date on File: 04/06/21 service: No Current occupational status: disabled Cognitive needs: Yes (wheelchair) Hearing needs: No Vision needs: Yes (Glasses) Review of Systems Reports urinary urgency and Reports vaginal discharge Physical Exam Vital Signs: Last Vital Signs Pulse 86 05/19/24 12:54 BP 120/60 05/19/24 12:54 Pulse Ox 97 05/19/24 12:54 Oxygen Delivery Method Room Air 05/19/24 12:54 Const General: cooperative, healthy appearing, no acute distress and alert Orientation/consciousness: patient oriented x3 Limitations: no limitations HEENT Head: Yes normal to inspection Ears: hearing grossly normal bilaterally General nose exam: Normal external nose present Resp Effort & Inspection: normal respiratory effort and able to speak in complete sentences Cardio Rate: regular rate External Female Exam: normal external appearance Speculum Exam - Vagina: abnormal vaginal discharge and tenderness Skin General skin exam: no rashes or lesions noted Neuro General: patient oriented x3 Extrem General: Yes normal to inspection Results AMB Urinalysis, Automated UA Leukoctes 500 Marcos/uL Last Edit by Bob Mccarthy CMA on 05/19/24 12:57 UA Nitrite Positive Last Edit by Bob Mccarthy CMA on 05/19/24 12:57 UA Urobilinogen 0.2 mg/dL Last Edit by Bob Mccarthy CMA on 05/19/24 12:57 UA Protein 30 mg/dL Last Edit by Bob Mccarthy CMA on 05/19/24 12:57 UA pH 6.0 Last Edit by Bob Mccarthy CMA on 05/19/24 12:57 UA Blood 80 Juvenal/uL Last Edit by Bob Mccarthy CMA on 05/19/24 12:57 UA Specific [place] 1.015 Last Edit by Bob Mccarthy CMA on 05/19/24 12:57 UA Ketone Negative Last Edit by Bob Mccarthy CMA on 05/19/24 12:57 UA Bilirubin 0 mg/dL Last Edit by Bob Mccarthy CMA on 05/19/24 12:57 UA Glucose 0 mg/dL Last Edit by Bob Mccarthy CMA on 05/19/24 12:57 Results Reviewed Results Reviewed: Laboratory Last Values Urine pH (Auto) 6.0 05/19/24 12:56 Specific [place] (Auto) 1.015 05/19/24 12:56 Urine Protein (Auto) 30 mg/dL 05/19/24 12:56 Glucose (UA)(Auto) 0 mg/dL 05/19/24 12:56 Urine Ketones (Auto) Negative 05/19/24 12:56 Urine Blood (Auto) 80 Juvenal/uL 05/19/24 12:56 Urine Nitrite (Auto) Positive 05/19/24 12:56 Urine Bilirubin (Auto) 0 mg/dL 05/19/24 12:56 Urine Urobilinogen (Auto) 0.2 mg/dL 05/19/24 12:56 Leukocyte Esterase (Auto) 500 Marcos/uL 05/19/24 12:56 Assessment & Plan Assessment & Plan (1) Vaginal irritation: Code(s): N89.8 - Other specified noninflammatory disorders of vagina Plan: - concern for BV verses candidiasis - speculum exam showed scant discharge in the vaginal canal exam was uncomfortable and poorly tolerated by patient. Swab was taken will send off for BV testing (2) Dysuria: Code(s): R30.0 - Dysuria Plan: Urinary Tract Infection (UTI): - Patient presents with persistent vaginal burning, not limited to urination - Recent urine test confirmed UTI with positive nitrates and leukocytes - Previous treatment for suspected yeast infection with Diflucan was ineffective - Speculum exam performed to check for lesions or discharge - Sample taken for further testing Plan: - Start cefdinir (antibiotic previously prescribed on May 17) - Prescribe Pyridium for symptomatic relief of burning sensation - Send urine sample for culture to ensure appropriate antibiotic coverage - Await culture results (expected by Tuesday) to guide further treatment - Patient educated on Pyridium side effect: orange urine discoloration - Continue current antibiotic unless ineffective; await swab results before making changes - Instructions given for emergency care if fever, back pain, or chills develop Orders: Orders Urine Culture Today R30.0 - Dysuria AMB Urinalysis Automated Today Z13.9 - Encounter for screening, unspecified Bacterial Vaginosis Panel Today N89.8 - Other specified noninflammatory disorders of vagina Coding Level of Care Code Est Pt Level 5 (87433) Diagnoses Vaginal irritation N89.8 Dysuria R30.0
[2024-05-19 12:54] VITALS: BP 120/60; PULSE 86; O2SAT 97
== END 2024-05-19 13:40 | disposition home or self-care (01) ==
PROVIDERS: PCP Internal Medicine; Visit Provider Physician Assistant
DX: N89.8 Other specified noninflammatory disorders of vagina (principal); R30.0 Dysuria

== ENCOUNTER 2024-05-29 10:03 | Outpatient (AMB) | payer MEDICARE, SELFPAY ==
--- NOTE | 2024-05-29 11:05 | MHC.OFFVIS ---
Intake Visit Reasons: vaginal burning Multimedia Project Manager: Multimedia Project Manager Present (Frida) Accompanied by: Friend Allergies chlorpheniramine [From TUSSIONEX] Allergy (Severe, Verified 05/29/24 11:06) HALLUCINATIONS ciprofloxacin [From CIPRO] Allergy (Severe, Verified 05/29/24 11:06) ANAPHYLAXIS escitalopram [ESCITALOPRAM] Allergy (Severe, Verified 05/29/24 11:06) DISSOCIATIVE REACTION fluoxetine [FLUOXETINE] Allergy (Severe, Verified 05/29/24 11:06) DISSOCIATIVE REACTION hydrocodone [From TUSSIONEX] Allergy (Severe, Verified 05/29/24 11:06) HALLUCINATIONS ibuprofen [IBUPROFEN] Allergy (Severe, Verified 05/29/24 11:06) THROAT SWELLING Sulfa (Sulfonamide Antibiotics) [SULFA (SULFONAMIDE ANTIBIOTICS)] Allergy (Severe, Verified 05/29/24 11:06) DYSPNEA clarithromycin [From BIAXIN] Allergy (Intermediate, Verified 05/29/24 11:06) ABD.PAIN duloxetine [DULOXETINE] Allergy (Intermediate, Verified 05/29/24 11:06) FACIAL NUMBNESS erythromycin base [ERYTHROMYCIN BASE] Allergy (Intermediate, Verified 05/29/24 11:06) RASH Penicillins [PENICILLINS] Allergy (Intermediate, Verified 05/29/24 11:06) RASH tetracycline [TETRACYCLINE] Allergy (Intermediate, Verified 05/29/24 11:06) DIARRHEA codeine [CODEINE] Allergy (Unknown, Verified 05/29/24 11:06) TINNITIS guaifenesin Allergy (Unknown, Verified 05/29/24 11:06) Unknown levofloxacin [From Levaquin] Allergy (Unknown, Verified 05/29/24 11:06) Unknown pregabalin Allergy (Unknown, Verified 05/29/24 11:06) Unknown HPI Comments Details: Presenting complaining of vulvovaginal burning not associated with any vaginal discharge or foul odor [facility] Medical History Dysuria Abscess Hospital discharge follow-up Generalized abdominal pain Encounter for wheelchair assessment Diverticular disease Major depressive disorder Heel spur Chronic low back pain Uterine cancer Hyperthyroidism Weakness of both lower extremities Hydroureteronephrosis Wound infection Open wound of back, complicated Cellulitis Frequency of urination Vaginal burning Vaginal itching PMB (postmenopausal bleeding) Cirrhosis of liver Does mobilize using walker PONV (postoperative nausea and vomiting) Left foot drop Fatty liver Fibromyalgia Neuropathy RBBB Cholelithiasis Staghorn calculus Renal calculus, bilateral Renal calyceal dilation determined by ultrasound UTI (urinary tract infection) Diabetes mellitus, type II Ganglion cyst Plantar fasciitis Anxiety OA (osteoarthritis) Obstructive airway disease Hypercholesterolemia Low back pain Sciatica Hypothyroidism HTN (hypertension) Primary osteoarthritis of right knee Retained ureteral stent Renal stones Staghorn calculus Perirectal abscess Surgical History History of colostomy reversal (02/20/24) History of colectomy (~10/06/23) Status post cystoscopy with ureteral stent placement History of lumbar discectomy History of lumpectomy of both breasts History of cystoscopy History of lithotripsy Hx of colonoscopy (~04/28/23) History of surgery Family History Father Alcohol dependence Mother CHF (congestive heart failure) Cancer of breast Mother No problems noted. Other Alcoholic cirrhosis Substance use disorder Social History Household Members: Significant Other Housing: House Are you a primary inpatient care manager rn to a significant other at home: No Do you presently have visiting nurse or other home services: Yes 75 years or older and lives alone: No Alcohol intake: never Comment: wheelchair for long distances Patient Tobacco Use Status: Former Tobacco user Tobacco use type: Cigarette Years Smoked: 27 e-Cigarette/Vaping Use: Never Used Second Hand Smoke Exposure: Yes Advance Directives Date on File: 04/06/21 service: No Current occupational status: disabled Cognitive needs: Yes (wheelchair) Hearing needs: No Vision needs: Yes (Glasses) Review of Systems Const All systems reviewed & are unremarkable except as noted in HPI and below Physical Exam General: Yes no CVA tenderness External Female Exam: normal external appearance and normal appearance of the urethra Speculum Exam - Vagina: normal appearance of the vagina, normal palpation, no lesions and no masses Speculum Exam - Cervix: normal appearance of the cervix, normal palpation, no lesions, no masses and nontender Bimanual exam- vagina & uterus: normal bimanual exam, normal palpation, uterine size normal, normal palpation, uterine shape normal, No Cervical tenderness present and non-tender Bimanual Exam- Adnexa, other: normal adnexae Back/Spine/Pelvis Back: no CVA tenderness Assessment & Plan Assessment & Plan (1) Vulvovaginitis: Code(s): N76.0 - Acute vaginitis Category: Medical Plan: BV panel collected. Will treat with Terazol 0.8% q.h.s. for 3 nights with Lotrisone cream b.i.d. for 5 days. Instructions given the patient to call if symptoms not improve. All questions answered, the patient verbalized understanding. Coding Level of Care Code Est Pt Level 3 (77989) Diagnoses Vulvovaginitis N76.0
--- OUTSIDE RECORDS SUMMARY | 2024-05-29 11:26 | XMS_ITS | Clinical Summary ---
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 02-07 00:00: 00 HALFWAY (CURRENT) USE [...] 10 mg tablet 2023-02 00:00: 00 Yes [id number] 1 tablet DAILY 1 tablet DAILY (route: oral) Med Classific ation: Cardiovas cular Therapy Agents B-complex with vitamin C 400 mcg-500 mg tablet 2023-02 00:00: 00 Yes [id number] 1 tablet DAILY 1 tablet DAILY (route: oral) Med Classific ation: Electroly te Balance-N utritiona l Products clindamycin HCl 300 mg capsule -20 00:00: 00 11-10 23:59 :00 No [id number] 1 capsule EVERY 6 HOURS 1 capsule EVERY 6 HOURS (route: oral) Med Classific ation: Anti-Infe ctive Agents furosemide 40 mg tablet 2023-02 00:00: 00 Yes [id number] 1 tablet DAILY 1 tablet DAILY (route: oral) Med Classific ation: Cardiovas cular Therapy Agents levothyroxi ne 112 mcg tablet 2023-02 00:00: 00 04-25 23:59 :00 No [id number] 1 tablet DAILY 1 tablet DAILY (route: oral) Med Classific ation: Endocrine metformin 500 mg tablet 2023-02 00:00: 00 Yes [id number] 1 tablet DAILY 1 tablet DAILY (route: oral) Med Classific ation: Endocrine Probiotic Acidophilus 250 million cell capsule 2023-02 00:00: 00 Yes [id number] 1 capsule DAILY 1 capsule DAILY (route: oral) Med Classific ation: Gastroint estinal Therapy Agents tramadol 50 mg tablet 2023-02 00:00: 00 Yes [id number] 1 tablet 3 TIMES DAILY 1 tablet 3 TIMES DAILY (route: oral) Med Classific ation: Analgesic , Anti-infl ammatory or Antipyret ic Vitamin D3 25 mcg (1,000 unit) capsule 2023-02 00:00: 00 Yes [id number] 2 capsule DAILY 2 capsule DAILY (route: oral) Med Classific ation: Electroly te Balance-N utritiona l Products acetaminoph en 500 mg tablet 04-02 00:00: 00 Yes [id number] 2 tablet EVERY 6 HOURS 2 tablet EVERY 6 HOURS (route: oral) Med Classific ation: Analgesic , Anti-infl ammatory or Antipyret ic hydrocodone 5 mg-acetamin ophen 325 mg tablet 04-02 00:00: 00 Yes [id number] 1 tablet EVERY 4 HOURS 1 tablet EVERY 4 HOURS (route: oral) Med Classific ation: Analgesic , Anti-infl ammatory or Antipyret ic levothyroxi ne 112 mcg tablet 04-02 00:00: 00 Yes [id number] 2 tablet DAILY 2 tablet DAILY (route: oral) Med Classific ation: Endocrine levothyroxi ne 112 mcg tablet 04-02 00:00: 00 Yes [id number] 1 tablet DAILY 1 tablet DAILY (route: oral) Med Classific ation: Endocrine Immunizations Ordered Immunization Name Filled Immunization Name Date Status Comments Refusal Reason COVID-19, COVID-19 2020-11-07 00:00:00 Vital Signs Vital Name Observation Time Observation Value Commen ts Temperature 2024-05-24 17:29:00.000 98 [degF] Temperature 2024-05-22 17:03:00.000 97 [degF] Temperature 2024-05-15 18:08:00.000 98 [degF] Temperature 2024-05-10 19:08:00.000 97.3 [degF] Temperature 2024-05-08 13:09:00.000 97.6 [degF] Pulse 2024-05-24 17:29:00.000 76 /min Pulse 2024-05-22 17:03:00.000 70 /min Pulse 2024-05-15 18:08:00.000 76 /min Pulse 2024-05-10 19:08:00.000 74 /min Pulse 2024-05-08 13:09:00.000 62 /min O2 Saturation (%) 2024-05-24 17:29:00.000 97 % O2 Saturation (%) 2024-05-22 17:03:00.000 96 % O2 Saturation (%) 2024-05-15 18:08:00.000 97 % O2 Saturation (%) 2024-05-10 19:08:00.000 97 % O2 Saturation (%) 2024-05-08 13:09:00.000 97 % Respirations 2024-05-24 17:29:00.000 18 /min Respirations 2024-05-22 17:03:00.000 18 /min Respirations 2024-05-15 18:08:00.000 18 /min Respirations 2024-05-10 19:08:00.000 18 /min Respirations 2024-05-08 13:09:00.000 18 /min Systolic Blood Pressure 2024-05-24 17:29:00.000 134 mm [Hg] Systolic Blood Pressure 2024-05-22 17:03:00.000 126 mm [Hg] Systolic Blood Pressure 2024-05-15 18:08:00.000 128 mm [Hg] Systolic Blood Pressure 2024-05-10 19:08:00.000 128 mm [Hg] Systolic Blood Pressure 2024-05-08 13:09:00.000 126 mm [Hg] Diastolic Blood Pressure 2024-05-24 17:29:00.000 74 mm [Hg] Diastolic Blood Pressure 2024-05-22 17:03:00.000 70 mm [Hg] Diastolic Blood Pressure 2024-05-15 18:08:00.000 [...] MAINTAIN SITUATIONAL AWARENESS AND WILL NOTIFY CLINICAL RAPID TRANSIT OPERATOR AND PHYSICIAN/PROVIDER WITH ANY CHANGE IN CONDITION. [code = SKILLED NURSE TO PERFORM ENVIRONMENTAL SAFETY RISK ASSESSMENT AND FALL RISK ASSESSMENT AND PROVIDE INSTRUCTION TO IMPLEMENT ENVIRONMENTAL SAFETY AND FALL PREVENTION STRATEGIES THROUGHOUT THE CERTIFICATION PERIOD. SKILLED NURSE WILL MAINTAIN SITUATIONAL AWARENESS AND WILL NOTIFY CLINICAL RAPID TRANSIT OPERATOR AND PHYSICIAN/PROVIDER WITH ANY CHANGE IN [...] AWAKE AND ALERT VS WNL AFEBRILE LUNGS DIM THROUGHOUT SPEAKING IN FULL SENTENCES NAD NOTED ABD SNT POS BS REPORTS BM TODAY REG BOWEL MOVEMENTS WOUNDS CONT IMPROVEMENT R FLANK AREA NOT DRAINAGE LARGE AMOUNTS. SCANT DRAINAGE ON DSG. INFECTION CONTROL REVIEWED MEDICATION CHANGES: N HANDS ON CARE: ASSESSMENT TEACHING WOUND CARE TEACHING PROVIDED: INFECTION CONTROL PATIENT/CAREGIVER TEACH BACK:VERBALIZED UNDERSTANDING NEXT APPOINTMENT: UPCOMING SURGEON WC NEW ORDERS: N INSTRUCTED PATIENT AND CAREGIVER TO CALL [facility] WITH ANY QUESTIONS OR CHANGES IN CONDITION</paragraph> Encounters Start Date/Time End Date/Time Encounter Type Admission Type Attending Clinicians Care Facility Care Department Encounter ID Discharge Date Discharge Status Discharge Condition Discharge Reason Percent Goals Met 2023-11-09 00:00:00 2024-07-05 00:00:00 Outpatient RECERTIFIC ATION SHAYY KYLE [facility] [id number] 27.27
--- OUTSIDE RECORDS SUMMARY | 2024-05-29 11:26 | XMS_ITS | Clinical Summary ---
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
== END 2024-05-29 11:26 | disposition home or self-care (01) ==
LOC: HO.HWS 10:03
PROVIDERS: PCP Internal Medicine; Visit Provider Obstetrics & Gynecology
DX: N76.0 Acute vaginitis (principal)
CPT/HCPCS: 99213

== ENCOUNTER 2024-05-29 10:03 | Outpatient (REF) | payer MEDICARE, SELFPAY ==
--- OUTSIDE RECORDS SUMMARY | 2024-05-29 14:13 | XMS_ITS | Clinical Summary ---
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
--- OUTSIDE RECORDS SUMMARY | 2024-05-29 14:13 | XMS_ITS | Clinical Summary ---
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 02-07 00:00: 00 ASSISTED (CURRENT) USE [...] 10 mg tablet 2023-02 00:00: 00 Yes [id number] 1 tablet DAILY 1 tablet DAILY (route: oral) Med Classific ation: Cardiovas cular Therapy Agents B-complex with vitamin C 400 mcg-500 mg tablet 2023-02 00:00: 00 Yes [id number] 1 tablet DAILY 1 tablet DAILY (route: oral) Med Classific ation: Electroly te Balance-N utritiona l Products clindamycin HCl 300 mg capsule -20 00:00: 00 11-10 23:59 :00 No [id number] 1 capsule EVERY 6 HOURS 1 capsule EVERY 6 HOURS (route: oral) Med Classific ation: Anti-Infe ctive Agents furosemide 40 mg tablet 2023-02 00:00: 00 Yes [id number] 1 tablet DAILY 1 tablet DAILY (route: oral) Med Classific ation: Cardiovas cular Therapy Agents levothyroxi ne 112 mcg tablet 2023-02 00:00: 00 04-25 23:59 :00 No [id number] 1 tablet DAILY 1 tablet DAILY (route: oral) Med Classific ation: Endocrine metformin 500 mg tablet 2023-02 00:00: 00 Yes [id number] 1 tablet DAILY 1 tablet DAILY (route: oral) Med Classific ation: Endocrine Probiotic Acidophilus 250 million cell capsule 2023-02 00:00: 00 Yes [id number] 1 capsule DAILY 1 capsule DAILY (route: oral) Med Classific ation: Gastroint estinal Therapy Agents tramadol 50 mg tablet 2023-02 00:00: 00 Yes [id number] 1 tablet 3 TIMES DAILY 1 tablet 3 TIMES DAILY (route: oral) Med Classific ation: Analgesic , Anti-infl ammatory or Antipyret ic Vitamin D3 25 mcg (1,000 unit) capsule 2023-02 00:00: 00 Yes [id number] 2 capsule DAILY 2 capsule DAILY (route: oral) Med Classific ation: Electroly te Balance-N utritiona l Products acetaminoph en 500 mg tablet 04-02 00:00: 00 Yes [id number] 2 tablet EVERY 6 HOURS 2 tablet EVERY 6 HOURS (route: oral) Med Classific ation: Analgesic , Anti-infl ammatory or Antipyret ic hydrocodone 5 mg-acetamin ophen 325 mg tablet 04-02 00:00: 00 Yes [id number] 1 tablet EVERY 4 HOURS 1 tablet EVERY 4 HOURS (route: oral) Med Classific ation: Analgesic , Anti-infl ammatory or Antipyret ic levothyroxi ne 112 mcg tablet 04-02 00:00: 00 Yes [id number] 2 tablet DAILY 2 tablet DAILY (route: oral) Med Classific ation: Endocrine levothyroxi ne 112 mcg tablet 04-02 00:00: 00 Yes [id number] 1 tablet DAILY 1 tablet DAILY (route: [...] MAINTAIN SITUATIONAL AWARENESS AND WILL NOTIFY CLINICAL SEWER AND CUTTER FINGER BUFF MATERIAL AND PHYSICIAN/PROVIDER WITH ANY CHANGE IN CONDITION. [code = SKILLED NURSE TO PERFORM ENVIRONMENTAL SAFETY RISK ASSESSMENT AND FALL RISK ASSESSMENT AND PROVIDE INSTRUCTION TO IMPLEMENT ENVIRONMENTAL SAFETY AND FALL PREVENTION STRATEGIES THROUGHOUT THE CERTIFICATION PERIOD. SKILLED NURSE WILL MAINTAIN SITUATIONAL AWARENESS AND WILL NOTIFY CLINICAL SEWER AND CUTTER FINGER BUFF MATERIAL AND PHYSICIAN/PROVIDER WITH ANY CHANGE IN CONDITION.] [...] WILL BE ESTABLISHED THAT MEETS PATIENT'S SENIOR LIVING NEEDS AND INCLUDES PATIENT GOAL FOR HOME [...] 2024-07-05 00:00:00 Outpatient RECERTIFIC ATION SHAYY KYLE [facility] [id number] 27.27
[2024-05-30 09:45] LABS: Bacterial Vaginosis PCR NEGATIVE (Negative); Candida Group PCR NOT DETECTED (Not Detect); Candida glab krusei PCR NOT DETECTED (Not Detect); Trichomonas vaginalis PCR NOT DETECTED (Not Detect)
== END 2024-05-29 10:04 | disposition home or self-care (01) ==
LOC: HO.LNP 10:03
PROVIDERS: PCP Internal Medicine; Visit Provider Obstetrics & Gynecology
DX: Z13.89 Encounter for screening for other disorder (principal)
CPT/HCPCS: 81515; 99212

== ENCOUNTER 2024-05-30 13:21 | Outpatient (REF) | payer MEDICARE, SELFPAY ==
[2024-05-30 15:58] LABS: Appearance Urine Turbid; Color Urine Yellow; Glucose Urine UA Negative (Negative); Leukocyte Esterase Urine Large (3+) (Negative); Nitrite Urine Positive (Negative); UMIC TRIGGER UACC YES; Urine Blood Moderate (2+) (Negative); Urine Ketones Negative (Negative); Urine Protein 30 (1+) mg/dL (Neg-Trace)
[2024-05-30 16:01] LABS: Bacteria Urine 3+ (None Seen); Hyaline Casts Urine 0-2 /LPF (0-2); RBC Urine >20 /HPF (0-2); Squamous Epithelial Cell Urine 0-2 /HPF (0-2); UACC Culture Trigger YES; WBC Urine >50 /HPF (0-5)
[2024-05-30 16:17] LABS: Alanine Aminotransferase 27 U/L (0-31); Albumin Level 3.7 g/dL (3.5-5.0); Alkaline Phosphatase 70 U/L (39-117); Anion Gap 12 (12-20); Aspartate Amino Transferase 40 U/L (5-31); Bilirubin Total 0.4 mg/dL (0.0-1.0); Blood Urea Nitrogen 19 mg/dL (9-16); C Reactive Protein 1.49 mg/dL (< or = 0.50); Calcium 9.5 mg/dL (8.4-10.2); Carbon Dioxide 26 mmol/L (22-29); Chloride 105 mmol/L (96-108); Estimated Glomerular Filt Rate 36; Glucose Random 174 mg/dL (60-115); Potassium 3.9 mmol/L (3.3-5.1); Sodium 139 mmol/L (135-145); Total Protein 7.6 g/dL (6.5-8.0)
[2024-05-30 16:42] LABS: Erythrocyte Sedimentation Rate 64 MM/HR (0-20)
--- OUTSIDE RECORDS SUMMARY | 2024-05-30 17:04 | XMS_ITS ---
Author Organization [facility] Address [address] [place] [address] Care Team Providers Care Automotive Parts Clerk Name Role Phone Felipe SERNA, Preston Primary Care Provider Unavail able Lucy Castro Unavailable [phone] Encounters Encounter Location Date Provider Diagnosis [facility] [address] [place] [address] 06/28/2023 Lucy Castro Plan Of Treatment No Information Progress Notes * Casimiro DOANineDOB: 8 (79 yo F)Acc No.[id number]:06/28/2023 Progress Note Patient:?Xi DOAN Provider:?Lucy Castro DPM :1945???Age:78 Y???Sex:Female D ate:06/28/2023 Address:[address] [place], [place] [address] [place] [address] Pcp:Preston Wang MD Subjective: * Chief Complaints: [...] Castro DPM Date:? Generated for Printi ng/Faxing/eTransmitting on:?05/30/2024 05:04 PM EDT
--- OUTSIDE RECORDS SUMMARY | 2024-05-30 17:04 | XMS_ITS | Patient Health Record ---
[facility] Address [address] [facility] [place] [address] Care Team Providers Care Foundry Operator Name Role Phone Preston Wang MD Primary Care Provider Unavail able Lucy Castro Unavailable [phone] Allergies Allergen (clinical drug ingredient) Drug/Non Drug [...] Problem Status W/U Status Risk Notes Problem [id number] Hammer toe of le ft foot (M20.42) Active confirmed Problem [id number] Neuropathy (G62.9) Active confirmed Problem [id number] Atherosclerosi s of artery of both lower extremities (I70.203) Active confirmed Encounters Encounter Location Date Provider Diagnosis [facility] [address] [place] [address] 06/28/2023 Lucy Castro Plan Of Treatment Pending Test Test Name Order Date X ray : Foot, left 3V 08/20/2022 X ray : Foot, left 3V 09/10/2022 X ray : Foot, left 3V 10/08/2022 [id number] NAIL, 1-5 12/21/2017 [id number] DYSTROPHIC NAILS ANY # Insurance Providers Payer Name Payer Address Payer Phone Subscriber Number Group Number Insured Name Patient Relationship to Insured Coverage Start Date Coverage End Date Medicare National [employer]t [employer] [address] [place] [address] [id number] Xi Garrison Self - patient is the insured 3 [employer] Blue [employer] [address] [place] [address] [phone] [id number] Xi Garrison Self - patient is [...]
--- OUTSIDE RECORDS SUMMARY | 2024-05-30 17:04 | XMS_ITS | Clinical Summary ---
Author Organization [facility] ity Address [address] [place] [address] Care Team Providers Care Assistant Terminal Manager Name Role Phone Preston Wang DO Primary Care Provider [phone] Social History Tobacco Use Types Packs/Day Years [...] Documents on File Type Date Recorded Patient Safe And Vault Mechanic Expl anation Health Care Decision (hx) 10/13/2017 AD ELLE DIRECTIVE Care Teams Assistant Terminal Manager Relationship Specialty Start Date End Date Preston Wang DO [address] [place] [phone] PCP - General Internal Medicine 09/05/17
--- OUTSIDE RECORDS SUMMARY | 2024-05-30 17:04 | XMS_ITS ---
Author Organization [facility] Address [address] [place] [address] Care Team Providers Care Payroll Accounting Clerk Name Role Phone Preston Wang MD Primary Care Provider Unavail Lucy Guadalupe Unavailable [phone] REASON FOR VISIT SD cx 06/27 Encounters Encounter Location Date Provider Diagnosis [facility] [address] [place] [address] 06/28/2023 Lucy Castro Plan Of Treatment No Information Progress Notes * Casimiro DOANineDOB: 8 (78 yo F)Acc No.[id number]:06/28/2023 Patient:?MeliKemal blantonXi :1945???Age:78 Y???Sex:Female Address:[address] [place] [address] [place] [address] * true * Date:? Generated for Printi ng/Fagorang/eTransmitting on:?05/30/2024 05:04 PM EDT
[2024-06-02 01:43] LABS: Zinc 48 mcg/dL (60-130)
[2024-06-02 18:34] LABS: Vitamin A 36 mcg/dL (38-98)
[2024-06-07 18:02] LABS: Vitamin B1 26 nmol/L (8-30)
== END 2024-05-30 13:22 | disposition home or self-care (01) ==
LOC: HO.HMGCLDS 13:21
PROVIDERS: PCP Internal Medicine; Visit Provider Physician Assistant Medical
DX: Z13.89 Encounter for screening for other disorder (principal)
CPT/HCPCS: 36415; 80053; 81001; 84425; 84590; 84630; 85652; 86140; 87086; 96127; 99212

== ENCOUNTER 2024-05-30 13:21 | Outpatient (AMB) | payer MEDICARE, SELFPAY ==
[2024-05-30 13:15] VITALS: BP 122/80; PULSE 100; RESP 14; TEMP 36.7; O2SAT 98; BMI 37.4
--- NOTE | 2024-05-30 13:15 | A.OFFPC_ITS ---
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: No Accompanied by: Spouse Allergies chlorpheniramine [From TUSSIONEX] Allergy (Severe, Verified 05/30/24 13:35) HALLUCINATIONS ciprofloxacin [From CIPRO] Allergy (Severe, Verified 05/30/24 13:35) ANAPHYLAXIS escitalopram [ESCITALOPRAM] Allergy (Severe, Verified 05/30/24 13:35) DISSOCIATIVE REACTION fluoxetine [FLUOXETINE] Allergy (Severe, Verified 05/30/24 13:35) DISSOCIATIVE REACTION hydrocodone [From TUSSIONEX] Allergy (Severe, Verified 05/30/24 13:35) HALLUCINATIONS ibuprofen [IBUPROFEN] Allergy (Severe, Verified 05/30/24 13:35) THROAT SWELLING Sulfa (Sulfonamide Antibiotics) [SULFA (SULFONAMIDE ANTIBIOTICS)] Allergy (Severe, Verified 05/30/24 13:35) DYSPNEA clarithromycin [From BIAXIN] Allergy (Intermediate, Verified 05/30/24 13:35) ABD.PAIN duloxetine [DULOXETINE] Allergy (Intermediate, Verified 05/30/24 13:35) FACIAL NUMBNESS erythromycin base [ERYTHROMYCIN BASE] Allergy (Intermediate, Verified 05/30/24 13:35) RASH Penicillins [PENICILLINS] Allergy (Intermediate, Verified 05/30/24 13:35) RASH tetracycline [TETRACYCLINE] Allergy (Intermediate, Verified 05/30/24 13:35) DIARRHEA codeine [CODEINE] Allergy (Unknown, Verified 05/30/24 13:35) TINNITIS guaifenesin Allergy (Unknown, Verified 05/30/24 13:35) Unknown levofloxacin [From Levaquin] Allergy (Unknown, Verified 05/30/24 13:35) Unknown pregabalin Allergy (Unknown, Verified 05/30/24 13:35) Unknown Medication List - Last Reconciled 05/30/24 by Margarita Powell PA-C acetaminophen 1,000 mg PO Q6H PRN atorvastatin 10 mg PO DAILY cefdinir 300 mg PO BID 7 days chair, wheel (Wheel chair) As directed; Manual 20 inch travel wheelchair with seat cushion and foot rests; Height 5ft 1.25 inches; Weight 191 lbs; ; QUANTITY OF 1; length of need 99 cholecalciferol (vitamin D3) 50 mcg PO DAILY furosemide 40 mg PO DAILY hydrocodone-acetaminophen 5-325 mg 1 tab PO Q4-6H PRN levothyroxine 224 mcg (2 x 112 mcg) PO SUWE@0600 lisinopril 10 mg PO DAILY metformin ER 1 tab PO DAILY@1700 miconazole nitrate 2% (Antifungal (miconazole)) 1 appl topical BID phenazopyridine 200 mg PO TID pyridoxine (vitamin B6) (Vitamin B-6) 100 mg PO DAILY tramadol 50 mg PO DAILY Tobacco use date assessed: 05/30/24 Fall risk assessment: No Falls in past year Last assessed Fall Risk: 05/30/24 Dental Screening Dental Screen Date: 05/30/24 Did you have a dental visit in the last 12 months?: Yes Did you have a dental problem in the last 6 months where you did not have access to dental care?: No Was dental information given to patient?: Patient has dentist HPI 6 week follow up - see comments HPI Details The patient is a 79-year-old female presenting with symptoms of a urinary tract infection. She finished her antibiotic regimen yet reports residual burning sensations. Patient had a positive urine culture that grew Klebsiella pneumoniae and she just finished a course of Cefdinir. A recent swab done by OBGYN Dr. Jacobsen yesterday confirmed the absence of any detectable infections. The patient's history includes medication changes for vulvovaginal candidiasis, following pharmacy dispensing errors, which required intervention. The patient also manages recovery from surgical procedures with residual bandaging required, noting improvements in wound healing on her abdomen, though minor drainage persists from her back, necessitating ongoing wound care management. [facility]LY [facility] Medical History Dysuria Abscess Hospital discharge follow-up Generalized abdominal pain Encounter for wheelchair assessment Diverticular disease Major depressive disorder Heel spur Chronic low back pain Uterine cancer Hyperthyroidism Weakness of both lower extremities Hydroureteronephrosis Wound infection Open wound of back, complicated Cellulitis Frequency of urination Vaginal burning Vaginal itching PMB (postmenopausal bleeding) Cirrhosis of liver Does mobilize using walker PONV (postoperative nausea and vomiting) Left foot drop Fatty liver Fibromyalgia Neuropathy RBBB Cholelithiasis Staghorn calculus Renal calculus, bilateral Renal calyceal dilation determined by ultrasound UTI (urinary tract infection) Diabetes mellitus, type II Ganglion cyst Plantar fasciitis Anxiety OA (osteoarthritis) Obstructive airway disease Hypercholesterolemia Low back pain Sciatica Hypothyroidism HTN (hypertension) Primary osteoarthritis of right knee Retained ureteral stent Renal stones Staghorn calculus Perirectal abscess Surgical History History of colostomy reversal (02/20/24) History of colectomy (~10/06/23) Status post cystoscopy with ureteral stent placement History of lumbar discectomy History of lumpectomy of both breasts History of cystoscopy History of lithotripsy Hx of colonoscopy (~04/28/23) History of surgery Family History Father Alcohol dependence Mother CHF (congestive heart failure) Cancer of breast Mother No problems noted. Other Alcoholic cirrhosis Substance use disorder Social History Household Members: Significant Other Housing: House Are you a primary inspector health care facilities to a significant other at home: No Do you presently have visiting nurse or other home services: Yes 75 years or older and lives alone: No Alcohol intake: current Alcohol intake frequency: does not drink Alcohol type: hard liquor Comment: wheelchair for long distances Patient Tobacco Use Status: Former Tobacco user Tobacco use type: Cigarette Years Smoked: 27 e-Cigarette/Vaping Use: Never Used Second Hand Smoke Exposure: Yes Advance Directives Date on File: 04/06/21 service: No Current occupational status: disabled Cognitive needs: Yes (wheelchair) Hearing needs: No Vision needs: Yes (Glasses) Questionnaire PHQ-9 Over the last 2 weeks, how often have you been bothered by any of the following problems? 1. Little interest or pleasure in doing things: not at all 2. Feeling down, depressed, or hopeless: not at all 3. Trouble falling or staying asleep, or sleeping too much: not at all 4. Feeling tired or having little energy: not at all 5. Poor appetite or overeating: not at all 6. Feeling bad about yourself - or that you are a failure or have let yourself or your family down: not at all 7. Trouble concentrating on things, such as reading the newspaper or watching television: not at all 8. Moving or speaking so slowly that other people could have noticed. Or the opposite - being so fidgety or restless that you have been moving around a lot more than usual: not at all 9. Thoughts that you would be better off or of hurting yourself in some way: not at all Total score: 0 Depression Screening Interpretation: Negative Depression Screening Done: Yes 55578 - PHQ-9 Billing: Yes Source: Developed by Drs. Preston Aponte, Jojo Holland, Subhash Richmond and colleagues, with an educational vernon from [employer]. Thrive Questionnaire Date Thrive assessed: 05/30/24 I am a: Patient What is your living situation today?: I have a steady place to live Within the past 12 months, did the food you bought not last and you didn't have the money to get more?: Never true Within the past 12 months, did you worry whether your food would run out before you got money to buy more?: Never true Do you have trouble paying for medicines?: No Do you have trouble getting transportation to medical appointments?: No Do you have trouble paying your heating and electricity bill?: No Do you have trouble taking care of your child, family member or friend?: No Do you have trouble with day-to-day activities such as bathing, preparing meals, shopping, managing finances, etc.?: No Are you currently unemployed and looking for a job?: No Are you interested in more education?: No Please select the resources that you would like help with: None THRIVE Score: 0 AUDIT C Alcohol Use Questionnaire (AUDIT-C) 1. How often do you have a drink containing alcohol?: Never 3. How often do you have six or more drinks on one occasion?: Never Total Score: 0 Score Reviewed/Action Taken: No RAMONE-7 AMB Questionnaire RAMONE-7 Date RAMONE - 7 assessed: 05/30/24 Feeling nervous, anxious, or on edge: 0 = Not at all Not being able to stop or control worryin = Not at all Worrying too much about different things: 0 = Not at all Trouble relaxin = Not at all Being so restless that it is hard to sit still: 0 = Not at all Becoming easily annoyed or irritable: 0 = Not at all Feeling afraid as if something awful might happen: 0 = Not at all Total RAMONE-7 score (0-4 normal; 5-9 mild; 10-14 moderate; 15-21 severe): 0 Source: Developed by Drs. Preston Aponte, Jojo Holland, Subhash Richmond and colleagues, with an educational vernon from [employer]. RAMONE-7 Assessment Billing RAMONE-7 Assessment Tool: RAMONE-7 Assessment 90754 Review of Systems Const Details: - Genitourinary: Reports burning sensation post-UTI treatment. Denies current urinary symptoms consistent with active infection. - Integumentary: Denies presence of rashes or itching. - Neurological: Denies confusion or forgetfulness beyond the ordinary. - Auditory: Reports difficulties with hearing impairment. Physical exam (Primary Care) Vital Signs: Last Vital Signs Temp 98.1 F 05/30/24 13:15 Pulse 100 05/30/24 13:15 Resp 14 05/30/24 13:15 BP 122/80 05/30/24 13:15 Pulse Ox 98 05/30/24 13:15 Oxygen Delivery Method Room Air 05/30/24 13:15 Care Plan Goal for BP management: <130/90 at Goal BMI result Body Mass Index 37.4 BMI Assessment/Plan discussion: High BMI High, discussed plan: lifestyle, weight reduction, dietary, physical activity and alcohol moderation Tobacco/Smoking Status: Tobacco use Status Tobacco use date assessed 05/30/24 05/30/24 13:17 Patient Tobacco Use Status Former Tobacco user 05/30/24 13:33 Tobacco use type Cigarette 05/30/24 13:33 e-Cigarette/Vaping Use Never Used 05/30/24 13:33 PHQ-9: PHQ-9 Score PHQ-9: Total score 0 05/30/24 13:34 Depression Screening Interpretation: Negative Thrive Assessment: Date of Thrive Assessment Date Thrive assessed 05/30/24 05/30/24 13:34 Const Other: Appearance: Alert. Oriented X3. No acute distress. Head: Normal external exam. Normocephalic. Atraumatic. Eyes: Pupils are equal, round, and reactive to light. Extraocular movements intact. Conjunctiva and sclera normal. Eyelids normal. Throat: Pharynx normal. Uvula midline. Moist mucous membranes. Neck: Normal inspection. Neck supple. Full range of motion. No adenopathy. Cardiovascular: Normal heart rate and rhythm. Respiratory: No respiratory distress. Painless inspiration. Abdomen: Soft and nontender. Bowel sounds normal in all 4 quadrants. No dis tention noted. No organomegaly noted. No visible injury noted. No belly pain, no nausea, no vomiting. Back: No costovertebral angle tenderness. Full range of motion noted. Skin: Skin warm and dry. Normal skin color. Normal skin turgor. Extremities: No lower extremity edema. Extremities exhibit normal range of motion. Extremities nontender. Neuro: Oriented X 3. Results Reviewed Results Reviewed: - Labs: Swabs taken yesterday; results indicate negative for bacterial infection. Coding Level of Care Code Est Pt Level 3 (15524) Diagnoses Dysuria R30.0 Additional Codes PHQ-9 - 28967 - PHQ-9 Billing: Yes ([id number]) RAMONE-7 Assessment Billing - RAMONE-7 Assessment Tool: RAMONE-7 Assessment 69556 ([id number]) Assessment & Plan Assessment & Plan (1) Dysuria: Code(s): R30.0 - Dysuria Category: Medical Plan: Will repeat urinalysis to ensure that the patient's UTI completely resolved due to patient has residual dysuria. She denies any rashes. Condition is stable will continue to monitor. Plan Plan Patient was informed and verbally consented to the use of an ambient scribe for clinic note documentation during this visit. 1. Urinary Tract Infection A repeat urinalysis is warranted to confirm resolution. Monitoring symptoms and assessing the need for further intervention is vital. 2. Vulvovaginal Candidiasis Corrected prescription for a three-day Terconazole course ensures appropriate treatment. Patient adherence is emphasized. 3. Wound Healing Encourage regular wound clinic visits for ongoing assessment. Maintain vigilance for infection. During today?s visit, I reiterated the importance of repeating the urine test to ensure complete resolution of the urinary tract infection, and explained the reasoning behind the prescription correction for vulvovaginal candidiasis treatment. I instructed the patient on the correct use of Terconazole suppositories and underscored the necessity of following the precise duration advised by the consulting physician. We reviewed her current medication schedule to ensure optimal compliance and seamless care coordination between the prescriptions given by Dr. Bey and myself. I further discussed the ongoing management of wound healing with visits to a specialized wound care clinic and encouraged continued observation of signs of improvement or complications. Orders: Orders Comprehensive Met. Panel Today Z00.00 - Encounter for general adult medical examination without abnormal findings Zinc Today Z00.00 - Encounter for general adult medical examination without abnormal findings Vitamin A Today Z00. - Encounter for general adult medical examination without abnormal findings UA CC w/rflx Micro + Cult Today R30.0 - Dysuria Erythrocyte Sedimentation Rate Today Z.00 - Encounter for general adult medical examination without abnormal findings C Reactive Protein Today Z00.00 - Encounter for general adult medical examination without abnormal findings Vitamin B1 Today Z00.00 - Encounter for general adult medical examination without abnormal findings Medications: New terconazole 0.8% 1 appful vaginal BEDTIME 3 days 20 grams 0RF clotrimazole-betamethasone 1-0.05 % 1 appl topical BID 45 grams 0RF Patient Instructions: - Repeat your urine test at the lab nearby for confirmation. - Use the corrected Terconazole prescription as directed by Dr. Ruiz for three nights. - Continue visiting the wound care clinic for monitoring. - Reach out immediately if any new or worsening symptoms occur. - Return for follow-up in three months, or sooner if needed.
--- OUTSIDE RECORDS SUMMARY | 2024-05-30 15:43 | XMS_ITS | Clinical Summary ---
Author Organization Unknown Care Team Providers Care Research Physician Name Role Phone VLAD SERNA, BEAR Unavailable Unavailab ab KOCH RN, ABIEL Unavailable Unavailable JERROD RN, ADMISSION NURSE, MALIKA Unavail able Unavailable ANABELLA RN, SHAYY Unavailable Unavailable Payers Payer Name Policy Type Policy Number Effective Date Expira tion Date MEDICARE - [facility] [id number] [facility] [id number] Problems Condition Name Condition Details Condition Category [...] DISEASE WITHOUT ESOPHAGITIS Active 02-07 00:00: 00 RESIDENTIAL (CURRENT) USE OF ORAL HYPOGLYCEMIC DRUGS Active [...] 10 mg tablet 2023-02 00:00: 00 Yes [id number] 1 tablet DAILY 1 tablet DAILY (route: oral) Med Classific ation: Cardiovas cular Therapy Agents B-complex with vitamin C 400 mcg-500 mg tablet 2023-02 00:00: 00 Yes [id number] 1 tablet DAILY 1 tablet DAILY (route: oral) Med Classific ation: Electroly te Balance-N utritiona l Products clindamycin HCl 300 mg capsule -20 00:00: 00 11-10 23:59 :00 No [id number] 1 capsule EVERY 6 HOURS 1 capsule EVERY 6 HOURS (route: oral) Med Classific ation: Anti-Infe ctive Agents furosemide 40 mg tablet 2023-02 00:00: 00 Yes [id number] 1 tablet DAILY 1 tablet DAILY (route: oral) Med Classific ation: Cardiovas cular Therapy Agents levothyroxi ne 112 mcg tablet 2023-02 00:00: 00 04-25 23:59 :00 No [id number] 1 tablet DAILY 1 tablet DAILY (route: oral) Med Classific ation: Endocrine metformin 500 mg tablet 2023-02 00:00: 00 Yes [id number] 1 tablet DAILY 1 tablet DAILY (route: oral) Med Classific ation: Endocrine Probiotic Acidophilus 250 million cell capsule 2023-02 00:00: 00 Yes [id number] 1 capsule DAILY 1 capsule DAILY (route: oral) Med Classific ation: Gastroint estinal Therapy Agents tramadol 50 mg tablet 2023-02 00:00: 00 Yes [id number] 1 tablet 3 TIMES DAILY 1 tablet 3 TIMES DAILY (route: oral) Med Classific ation: Analgesic , Anti-infl ammatory or Antipyret ic Vitamin D3 25 mcg (1,000 unit) capsule 2023-02 00:00: 00 Yes [id number] 2 capsule DAILY 2 capsule DAILY (route: oral) Med Classific ation: Electroly te Balance-N utritiona l Products acetaminoph en 500 mg tablet 04-02 00:00: 00 Yes [id number] 2 tablet EVERY 6 HOURS 2 tablet EVERY 6 HOURS (route: oral) Med Classific ation: Analgesic , Anti-infl ammatory or Antipyret ic hydrocodone 5 mg-acetamin ophen 325 mg tablet 04-02 00:00: 00 Yes [id number] 1 tablet EVERY 4 HOURS 1 tablet EVERY 4 HOURS (route: oral) Med Classific ation: Analgesic , Anti-infl ammatory or Antipyret ic levothyroxi ne 112 mcg tablet 04-02 00:00: 00 Yes [id number] 2 tablet DAILY 2 tablet DAILY (route: oral) Med Classific ation: Endocrine levothyroxi ne 112 mcg tablet 04-02 00:00: 00 Yes [id number] 1 tablet DAILY 1 tablet DAILY (route: oral) Med Classific ation: Endocrine Immunizations Ordered Immunization Name Filled Immunization Name Date Status Comments Refusal Reason COVID-19, COVID-19 2020-11-07 00:00:00 Vital Signs Vital Name Observation Time Observation Value Commen ts Temperature 2024-05-29 18:25:00.000 97 [degF] Temperature 2024-05-24 17:29:00.000 98 [degF] Temperature 2024-05-22 17:03:00.000 97 [degF] Temperature 2024-05-15 18:08:00.000 98 [degF] Temperature 2024-05-10 19:08:00.000 97.3 [degF] Temperature 2024-05-08 13:09:00.000 97.6 [degF] Pulse 2024-05-29 18:25:00.000 76 /min Pulse 2024-05-24 17:29:00.000 76 /min Pulse 2024-05-22 17:03:00.000 70 /min Pulse 2024-05-15 18:08:00.000 76 /min Pulse 2024-05-10 19:08:00.000 74 /min Pulse 2024-05-08 13:09:00.000 62 /min O2 Saturation (%) 2024-05-29 18:25:00.000 97 % O2 Saturation (%) 2024-05-24 17:29:00.000 97 % O2 Saturation (%) 2024-05-22 17:03:00.000 96 % O2 Saturation (%) 2024-05-15 18:08:00.000 97 % O2 Saturation (%) 2024-05-10 19:08:00.000 97 % O2 Saturation (%) 2024-05-08 13:09:00.000 97 % Respirations 2024-05-29 18:25:00.000 18 /min Respirations 2024-05-24 17:29:00.000 18 /min Respirations 2024-05-22 17:03:00.000 18 /min Respirations 2024-05-15 18:08:00.000 18 /min Respirations 2024-05-10 19:08:00.000 18 /min Respirations 2024-05-08 13:09:00.000 18 /min Systolic Blood Pressure 2024-05-29 18:25:00.000 128 mm [Hg] Systolic Blood Pressure 2024-05-24 17:29:00.000 134 mm [Hg] Systolic Blood Pressure 2024-05-22 17:03:00.000 126 mm [Hg] Systolic Blood Pressure 2024-05-15 18:08:00.000 128 mm [Hg] Systolic Blood Pressure 2024-05-10 19:08:00.000 128 mm [Hg] Systolic Blood Pressure 2024-05-08 13:09:00.000 126 mm [Hg] Diastolic Blood Pressure 2024-05-29 18:25:00.000 74 mm [Hg] Diastolic Blood Pressure 2024-05-24 17:29:00.000 [...] MAINTAIN SITUATIONAL AWARENESS AND WILL NOTIFY CLINICAL PEN TESTER AND PHYSICIAN/PROVIDER WITH ANY CHANGE IN CONDITION. [code = SKILLED NURSE TO PERFORM ENVIRONMENTAL SAFETY RISK ASSESSMENT AND FALL RISK ASSESSMENT AND PROVIDE INSTRUCTION TO IMPLEMENT ENVIRONMENTAL SAFETY AND FALL PREVENTION STRATEGIES THROUGHOUT THE CERTIFICATION PERIOD. SKILLED NURSE WILL MAINTAIN SITUATIONAL AWARENESS AND WILL NOTIFY CLINICAL PEN TESTER AND PHYSICIAN/PROVIDER WITH ANY CHANGE IN CONDITION.] [...] DENIES PROBLEMS WITH BOWEL OR BLADDER APPETITE GOOD GAIT SLOW STEADY. WOUND CARE PROVIDED ABD WOUND NEARLY HEALED R FLANK OA DRAINING MUCH LESS. NO IRRIGATION NO SS INFECTION NOTED REVIEWED MEDICATION REGIME DIET PROTEIN TO PROMOTE WOUND HEALING DFC REVIEWED MEDICATION CHANGES: N HANDS ON CARE: ASSESSMENT TEACHING WOUND CARE DIET MED REVIEW PATIENT/CAREGIVER TEACH BACK:VERBALIZED UNDERSTANDING NEXT APPOINTMENT: TUE NEW ORDERS: N INSTRUCTED PATIENT AND CAREGIVER TO CALL [facility] WITH ANY QUESTIONS OR CHANGES IN CONDITION</paragraph> <paragraph>[Visit Date: 2024 by SHAYY KYLE RN]:</paragraph><paragraph>SNV [...] TEACH BACK:VERBALIZED UNDERSTANDING NEXT APPOINTMENT: UPCOMING SURGEON MICHA NEW ORDERS: N INSTRUCTED PATIENT AND CAREGIVER TO CALL [facility] WITH ANY QUESTIONS OR CHANGES IN CONDITION</paragraph> Encounters Start Date/Time End Date/Time Encounter Type Admission Type Attending [facility] Care Facility Care Department Encounter ID Discharge Date Discharge Status Discharge Condition Discharge Reason Percent Goals Met 2023-11-09 00:00:00 2024-07-05 00:00:00 Outpatient RECERTIFIC ATION SHAYY KYLE [facility] [id number] 36.36
--- OUTSIDE RECORDS SUMMARY | 2024-05-30 15:43 | XMS_ITS | Clinical Summary ---
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
== END 2024-05-30 13:53 | disposition home or self-care (01) ==
LOC: HO.HMCSH 13:21
PROVIDERS: PCP Internal Medicine; Visit Provider Physician Assistant Medical
DX: R30.0 Dysuria (principal)

== ENCOUNTER 2024-05-31 11:02 | Inpatient (IN) | payer MEDICARE, SELFPAY ==
[2024-05-31] VITALS (7 sets, daily range): BP systolic 102–144; BP diastolic 38–62; PULSE 73–96; RESP 16–18; TEMP 36.8–37.1; O2SAT 96–100; BMI 37.2
--- NOTE | ~2024-05-31 | CT_ITS ---
EXAMINATION: CT ABDOMEN AND PELVIS WITH CONTRAST CLINICAL INFORMATION: Bilateral back pain, history of UTI COMPARISON: 04/20/2024, 03/29/2024. TECHNIQUE: Multidetector volumetric images were obtained from the superior aspect of the liver through the pubic symphysis following administration 85 mL of Omnipaque 350 intravenous contrast. Sagittal and coronal reformatted images were obtained on the technologist's workstation. Oral contrast: No This CT examination was performed using dose optimization techniques as appropriate, variously including the following: *Automated exposure control *Adjustment of mA and/or kV according to patient size (this includes techniques or standardized protocols for targeted exams where dose is matched to indication/reason for exam; i.e. extremities or head) *Use of iterative reconstruction technique FINDINGS: LUNG BASES: The visualized lung bases are unremarkable. LIVER, GALLBLADDER, AND BILIARY TREE: The liver has a cirrhotic morphology with a macrolobulated contour. There is no focal suspicious hepatic lesion. No intrahepatic or extrahepatic biliary dilatation. The gallbladder demonstrates large intraluminal calcified gallstones. No definite wall thickening or pericholecystic fluid collection. PANCREAS: Mild atrophy. Otherwise normal. SPLEEN: Mild splenic enlargement, with the spleen measuring 12.5 cm in length. ADRENAL GLANDS: Unremarkable. KIDNEYS AND URETERS: Right kidney: A right nephroureteral stent is again noted in place, with pigtail formed in the superior collecting system, and inferior pigtail formed within the urinary bladder. There are numerous right renal calculi measuring up to 1.6 cm in size, without significant change. There is no hydronephrosis. There is a 1.6 cm cyst in the upper pole. Left kidney: There is a 7 mm nonobstructing calculus in the lower pole. There is no hydronephrosis or hydroureter. There are tiny left renal cysts. BLADDER: Unremarkable. GASTROINTESTINAL TRACT: Redemonstration of an anastomotic suture line at the rectosigmoid junction, with abutting inflammation and fat stranding, in keeping with either persistent or recurrent diverticulitis. There is no abscess or complication evident. Remainder of the colon is normal in course and caliber without wall thickening or additional inflammation. The small bowel is normal in course and caliber without wall thickening or inflammation. The stomach, and duodenal sweep have a normal appearance. The appendix is not well visualized and may be surgically absent. There are no CT features of appendicitis. ABDOMINAL WALL: Ventral rectus diastases with incisional hernia containing numerous loops of small bowel, transverse colon, and mesenteric/omental fat. LYMPH NODES: No abnormal lymphadenopathy. VASCULAR: Extensive calcification of the aorta and iliac arteries without aneurysm. PELVIC VISCERA: There is been a hysterectomy. There are no adnexal masses. OSSEOUS STRUCTURES: No suspicious lytic or blastic bone lesions. Advanced degenerative spondylosis of the spine, with a hemangioma in the L2 vertebral body. There are bilateral hip joint degenerative changes. CT/CT abdomen pelvis w IV con IMPRESSION: 1. Persistent versus recurrent inflammation involving a short segment of sigmoid colon in the region of the rectosigmoid anastomosis. This could represent acute diverticulitis. No complication or abscess. 2. Right nephroureteral stent in place. Bilateral nonobstructing right greater than left renal calculi. No hydronephrosis is noted. 3. Cirrhotic morphology of the liver. No suspicious lesion. Mild splenomegaly. 4. Cholelithiasis. 5. Additional ancillary findings as discussed in the body of the report. Electronically signed by: Adrian Otto MD 05/31/2024 03:36 PM EDT
--- NOTE | 2024-05-31 11:25 | ED_ITS ---
HPI - Female Genitourinary General Chief complaint: Urogenital-Female Stated complaint: UTI- Antibiotics Time Seen by Provider: 05/31/24 12:26 Source: patient and other ( at bedside ) Mode of arrival: ambulatory History of Present Illness ED Provider: KAMERON YUAN Narrative: Pt is a 79-year-old female with a PMH significant for?HLD HTN, hypothyroidism, qky-jfukgww-qabasmnlc type 2 diabetes, and hx of sigmoid stricture s/p Vicki procedure (10/06/23) with recent colostomy reversal (02/25/24), with iliopsosas abscess, who presents to the ED due to consultation from PCP provider to begin IV antibiotics due to drug resistent Klebsiella UTI and allergy to ciprofloxacin which the infection is susceptible to. Her PCP provider called her yesterday and recommended her to come to the ED for IV abx treatment. Additionally, she is endorsing chronic vaginal burning and discomfort, with an increase in urinary frequency and lower abdominal fullness.. She explains she has been experiencing intense vaginal burning since March 2024. She has had follow up with OBGYN (Dr. Jacobsen 05/29/2024) and diagnosed with atrophic vaginitis and vulvovaginitis for which she was prescribed terazol and lotrisone cream. She states she has not started one of the medications but cannot recall which one she has not started. On physical exam patient was exquisitely tender over bilateral superior flank area on percussion. She denies chest pain, SOB, fever, chills, nausea, vomiting, MD elicited complaint: other (genital burning, suprapubic fullness) Pertinent past history: diabetes Onset (ago): month(s) (2 months) Location of symptoms: external genitalia, suprapubic and vaginal Severity: moderate Female Urogenital Radiation: Non-Radiating Quality of pain: burning Consistency: constant Vaginal discharge: none Vaginal bleeding: none Exacerbating factors: none Relieving factors: none Associated symptoms: back pain (L and R musculoskeletal pain) Treatment prior to arrival: none Sexual activity: No Patient : No Related Data Home Medications ?Medication ?Instructions ?Recorded ?Confirmed atorvastatin 10 mg tablet 10 mg PO DAILY 04/05/21 05/30/24 metformin 500 mg tablet,extended 1 tab PO DAILY@1700 04/06/21 05/30/24 release 24 hr acetaminophen 500 mg tablet 1,000 mg PO Q6H PRN Pain 10/04/23 05/30/24 hydrocodone 5 mg-acetaminophen 325 1 tab PO Q4-6H PRN Pain (Scale 03/29/24 05/30/24 mg tablet Score 7-10) pyridoxine (vitamin B6) 100 mg 100 mg PO DAILY 04/11/24 05/30/24 tablet (Vitamin B-6) tramadol 50 mg tablet 50 mg PO DAILY 04/11/24 05/30/24 cholecalciferol (vitamin D3) 25 50 mcg PO DAILY 05/19/24 05/30/24 mcg (1,000 unit) capsule Previous Rx's ?Medication ?Instructions ?Recorded furosemide 40 mg tablet 40 mg PO DAILY #30 tabs 12/16/21 lisinopril 10 mg tablet 10 mg PO DAILY #90 tabs 03/12/24 chair, wheel (Wheel chair) #1 ea 04/16/24 miconazole nitrate 2 % topical 1 appl topical BID #42.5 grams 05/04/24 cream (Antifungal (miconazole)) cefdinir 300 mg capsule 300 mg PO BID uti 7 days #14 caps 05/17/24 phenazopyridine 200 mg tablet 200 mg PO TID #6 tabs 05/18/24 levothyroxine 112 mcg tablet 224 mcg (2 x 112 mcg) PO SUWE@0600 05/25/24 #90 tabs clotrimazole-betamethasone 1 1 appl topical BID #45 grams 05/30/24 %-0.05 % topical cream terconazole 0.8 % vaginal cream 1 appful vaginal BEDTIME 3 days 05/30/24 #20 grams Allergies Allergy/AdvReac Type Severity Reaction Status Date / Time chlorpheniramine Allergy Severe HALLUCINATI Verified 05/31/24 11:28 [From TUSSIONEX] ONS ciprofloxacin [From CIPRO] Allergy Severe ANAPHYLAXIS Verified 05/31/24 11:28 escitalopram [ESCITALOPRAM] Allergy Severe DISSOCIATIVE Verified 05/31/24 11:28 REACTION fluoxetine [FLUOXETINE] Allergy Severe DISSOCIATIVE Verified 05/31/24 11:28 REACTION hydrocodone [From TUSSIONEX] Allergy Severe HALLUCINATI Verified 05/31/24 11:28 ONS ibuprofen [IBUPROFEN] Allergy Severe THROAT Verified 05/31/24 11:28 SWELLING Sulfa (Sulfonamide Allergy Severe DYSPNEA Verified 05/31/24 11:28 Antibiotics) [SULFA (SULFONAMIDE ANTIBIOTICS)] clarithromycin [From BIAXIN] Allergy Intermediate ABD.PAIN Verified 05/31/24 11:28 duloxetine [DULOXETINE] Allergy Intermediate FACIAL Verified 05/31/24 11:28 NUMBNESS erythromycin base Allergy Intermediate RASH Verified 05/31/24 11:28 [ERYTHROMYCIN BASE] Penicillins [PENICILLINS] Allergy Intermediate RASH Verified 05/31/24 11:28 tetracycline [TETRACYCLINE] Allergy Intermediate DIARRHEA Verified 05/31/24 11:28 codeine [CODEINE] Allergy Unknown TINNITIS Verified 05/31/24 11:28 guaifenesin Allergy Unknown Unknown Verified 05/31/24 11:28 levofloxacin [From Levaquin] Allergy Unknown Unknown Verified 05/31/24 11:28 pregabalin Allergy Unknown Unknown Verified 05/31/24 11:28 Review of Systems 2 Review of Systems: Constitutional: No Weight loss, No Fever, No Chills, No Night Sweats, No Fatigue, No Malaise ENT/Mouth: No Hearing loss, No Ear Pain, No Nasal Congestion, No Sinus Pain, No Hoarseness, No sore throat, No Rhinorrhea, No Swallowing Difficulty Eyes: No Eye Pain, No Swelling, No Redness, No Foreign Body, No Discharge, No Vision Changes Cardiovascular: No Chest Pain, No SOB, No Dyspnea on Exertion, No Orthopnea, No Edema, No Palpitations Respiratory: No Cough, No Sputum, No Wheezing, No Smoke Exposure, No Dyspnea Gastrointestinal: No Nausea, No Vomiting, No Diarrhea, No Constipation, + suprapubic fullness on palpation, No Hematochezia, No Melena Genitourinary: No irregular bleeding, No Dysuria, No Hematuria, No Urinary Incontinence/retention, No Urgency, No Flank Pain, No Urinary Flow Changes, No Hesitancy, + vulvar/vaginal burning, + increased urinary frequency Musculoskeletal: No joint pain, No Myalgias, No Joint Swelling, + Bilateral thoracic paraspinal tenderness on palpation Skin: No Skin Lesions, No rash Neuro: No Weakness, No Numbness, No Paresthesias, No Loss of Consciousness, No Dizziness, No Headache Psych: No Anxiety/Panic, No Depression, No SI/HI/AH/VH, No Social Issues, Heme/Lymph: No Bruising, No Bleeding,No Lymphadenopathy Endocrine: No Polyuria, No Polydipsia, No Temperature Intolerance Yes all other systems are reviewed and are negative [facility] Past Medical History Attestation statement: The following information was validated with the patient. Source: old records reviewed Medical History Dysuria Abscess Hospital discharge follow-up Generalized abdominal pain Encounter for wheelchair assessment Diverticular disease Major depressive disorder Heel spur Chronic low back pain Uterine cancer Hyperthyroidism Weakness of both lower extremities Hydroureteronephrosis Wound infection Open wound of back, complicated Cellulitis Frequency of urination Vaginal burning Vaginal itching PMB (postmenopausal bleeding) Cirrhosis of liver Does mobilize using walker PONV (postoperative nausea and vomiting) Left foot drop Fatty liver Fibromyalgia Neuropathy RBBB Cholelithiasis Staghorn calculus Renal calculus, bilateral Renal calyceal dilation determined by ultrasound UTI (urinary tract infection) Diabetes mellitus, type II Ganglion cyst Plantar fasciitis Anxiety OA (osteoarthritis) Obstructive airway disease Hypercholesterolemia Low back pain Sciatica Hypothyroidism HTN (hypertension) Primary osteoarthritis of right knee Retained ureteral stent Renal stones Staghorn calculus Perirectal abscess Surgical History History of colostomy reversal (02/20/24) History of colectomy (~10/06/23) Status post cystoscopy with ureteral stent placement History of lumbar discectomy History of lumpectomy of both breasts History of cystoscopy History of lithotripsy Hx of colonoscopy (~04/28/23) History of surgery Family History Family History Father Alcohol dependence Mother CHF (congestive heart failure) Cancer of breast Mother No problems noted. Other Alcoholic cirrhosis Substance use disorder Social History Social History Household Members: Significant Other Housing: House Are you a primary child care lead teacher to a significant other at home: No Do you presently have visiting nurse or other home services: Yes Alcohol intake: current Alcohol intake frequency: does not drink Alcohol type: hard liquor Comment: wheelchair for long distances Patient Tobacco Use Status: Former Tobacco user Tobacco use type: Cigarette Years Smoked: 27 e-Cigarette/Vaping Use: Never Used Second Hand Smoke Exposure: Yes Advance Directives: Yes Advance Directives on File: Yes Advance Directives Date on File: 04/06/21 Do you have a plan to hurt others: No Plan Patient : No service: No Current occupational status: disabled Cognitive needs: Yes (wheelchair) Hearing needs: No Vision needs: Yes (Glasses) Physical Exam 2 Vital Signs: Vital Signs: Last Vital Signs Temp 98.4 F 05/31/24 16:31 Pulse 93 05/31/24 16:31 Resp 16 05/31/24 16:31 BP 102/51 L 05/31/24 16:31 Pulse Ox 98 05/31/24 16:31 O2 Del Method Room Air 05/31/24 16:31 BMI result Body Mass Index 37.2 Appearance: Alert. Oriented X3. No acute distress. Eyes: Pupils equal, round and reactive to light. ENT: Pharynx normal. Neck: Normal inspection. Neck supple. CVS: Normal heart rate and rhythm. Pulses normal. Respiratory: No respiratory distress. Breath sounds normal. Abdomen: Soft and non-distended, vertical scar over midline umbilical area from Vicki procedure (10/06/23), bandage over L lower medial abdomen from closer of colostomy (02/25/24). Dressing over right superior flank from iliopsoas abscess and drainage.+BS x4 Skin: Skin warm and dry. Normal skin color. Normal skin turgor. No rashes. Extremities: No lower extremity edema. Neuro: Oriented X 3. No motor deficit. No sensory deficit. CN II-XII intact. Course Course Course Narrative: This is a Rapid Medical Exam performed in triage by Kika Arora PA-C. Full HPI, ROS and PE to be performed by primary ED provider. 79yo F w/PMHx RBBB, HTN, hypothyroid, renal stones, fibromyalgia presenting to the ED sent in by PCP for IV antibiotics due to ESBL UTI growing Klebsiella susceptible to Cipro, Gentamicin & Imiprnrm, however patient is anaphylactic to Cipro. Patient finished course of cefdinir without relief. Reports symptoms x2 weeks. admits to dysuria, lower abd/vaginal pain PE: In wheelchair, nontoxic appearing Plan: Labs, UA Reevaluation(s) Reevaluation #1: CT returns revealing persistent versus recurrent inflammation involving the short segment of sigmoid colon in the region of the rectosigmoid anastomosis, could representing acute diverticulitis. There was a right nephroureteral stent in place. Bilateral nonobstructing right greater than left renal calculi. There is a cirrhotic morphology of the liver, cholelithiasis. Patient needs to be admitted for ESBL UTI treatment. First dose of meropenum ordered. Patient has multiple antibiotic allergies, I discussed crust reactivity to penicillin and Lidia panel with pharmacist, they state that this is extremely low in cross reactivity however advised to order IV Benadryl as needed for allergy if this does awry. Discussed case with Dr. Caceres, transfer of care initiated. Time: 16:37 Medications Administered Discontinued Medications Generic Name Dose Route Start Last Admin Trade Name Freq PRN Reason Stop Dose Admin Sodium Chloride 1,000 mls @ 999 mls/hr 05/31/24 13:40 05/31/24 14:05 Ns IV 05/31/24 14:40 999 mls/hr .Q1H1M ONE Administration Iohexol 100 ml 05/31/24 14:47 05/31/24 14:47 Iohexol 350 Mg/Ml 100 Ml Infus..Btl IV 05/31/24 14:48 85 ml ONCE ONE Administration Medical Decision Making Medical Decision Making MDM Narrative: Pt is a 79-year-old female with a PMH significant for?HLD HTN, hypothyroidism, dzl-zfwdjsi-ixcfegnmg type 2 diabetes, and hx of sigmoid stricture s/p Vicki procedure (10/06/23) with recent colostomy reversal (02/25/24), with iliopsosas abscess, who presents to the ED due to consultation from PCP provider to begin IV antibiotics due to drug resistent Klebsiella UTI and allergy to ciprofloxacin which the infection is susceptible to. Her PCP provider called her yesterday and recommended her to come to the ED for IV abx treatment. Additionally, she is endorsing chronic vaginal burning and discomfort, with an increase in urinary frequency and lower abdominal fullness.. She explains she has been experiencing intense vaginal burning since March 2024. She has had follow up with OBGYN (Dr. Jacobsen 05/29/2024) and diagnosed with atrophic vaginitis and vulvovaginitis for which she was prescribed terazol and lotrisone cream. She states she has not started one of the medications but cannot recall which one she has not started. On physical exam patient was exquisitely tender over bilateral superior flank area on percussion. She denies chest pain, SOB, fever, chills, nausea, vomiting, Patients vital signs are unremarkable, she is in no acute distress and is non- toxic appearing. On physical exam, she is tender over bilateral superior aspect of flanks on percussion. Due to recent iliopsoas abscess that was self draining (03/29/24) CT abdomen ordered to rule out obstructive process VS infection Labs reveal elevated BUN at 18 but upon chart review is the patients baseline range. Glucose is elevated at 135. There is no evidence of elevated WBC. UA reveals 1+ protein, 3+ leukocyte esterase, positive nitrites, 11-20 RBC which are indicative of an active UTI. Differential Diagnosis Differential Diagnoses: The differential diagnosis associated with the presentation includes abscess, atrophic vaginitis, pyelonephritis, hydronephrosis, Admission/Observation Consideration of admission/observation: Escalation of care including admission/observation considered Lab Data MDM Lab Attestation statement: I reviewed the patient's lab results. Labs revealing no leukocytosis, normocytic anemia with an H&H of 10.3/33; chemistry revealing creatinine of 1.2, BUN at 18 which is consistent with her baseline urine positive for UTI. 05/31/24 11:47 05/31/24 11:47 Labs: Lab Results 05/31/24 Range/Units 11:47 WBC 7.7 (4.8-10.8) X10*3/uL RBC 3.86 L (4.20-5.50) X10*6/uL Hgb 10.3 L D (12.0-16.0) g/dl Hct 33.0 L D (37.0-47.0) % MCV 85.5 (80.0-98.0) fL MCH 26.7 L (27.0-33.0) pg MCHC 31.2 (31.0-35.0) g/dl RDW 18.2 H (11.0-16.0) % Plt Count 242 (160-400) X10*3/uL MPV 9.6 (9.4-12.3) fL Immature Gran % (Auto) 1.2 H (0.0-0.4) % Neut % (Auto) 60.8 (45-73) % Lymph % (Auto) 27.5 (20-40) % [place] % (Auto) 8.2 (2-11) % Eos % (Auto) 1.7 (0-4) % Baso % (Auto) 0.6 (0-2) % Lymph # (Auto) 2.1 (1.2-4.9) X10*3/uL [place] # (Auto) 0.6 (0.1-1.2) X10*3/uL Eos # (Auto) 0.1 (0.0-0.4) X10*3/uL Baso # (Auto) 0.1 (0.0-0.2) X10*3/uL Abs Immat Gran (auto) 0.09 H (0.00-0.03) X10*3/uL Absolute Neuts (auto) 4.7 (2.0-8.3) x10*3/uL Absolute Nucleated RBC 0.000 (0.0-0.012) X10*3/uL Nucleated RBC % (auto) 0.0 (0.0-0.2) /100WBC Sodium 138 (135-145) mmol/L Potassium 4.5 (3.3-5.1) mmol/L Chloride 106 (96-108) mmol/L Carbon Dioxide 26 (22-29) mmol/L Anion Gap 11 L (12-20) BUN 18 H (9-16) mg/dL Creatinine 1.26 (0.5-1.4) mg/dL Estim Creat Clear Calc 38.0 Estimated GFR 41 Random Glucose 135 H (60-115) mg/dL Calcium 9.5 (8.4-10.2) mg/dL Magnesium 2.1 (1.6-2.6) mg/dL Total Bilirubin 0.5 (0.0-1.0) mg/dL Direct Bilirubin 0.2 (0.0-0.5) mg/dL AST 40 H (5-31) U/L ALT 25 (0-31) U/L Alkaline Phosphatase 62 (39-117) U/L Total Protein 7.5 (6.5-8.0) g/dL Albumin 3.6 (3.5-5.0) g/dL Urine Color Yellow Urine Appearance Turbid Urine pH 7.0 (5.0-9.0) Ur Specific [place] 1.010 (1.005-1.025) Urine Protein 30 (1+) H (Neg-Trace) mg/dL Urine Glucose (UA) Negative (Negative) mg/dL Urine Ketones Negative (Negative) mg/dL Urine Blood Moderate (2+) H (Negative) Urine Nitrite Positive H (Negative) Ur Leukocyte Esterase Large (3+) H (Negative) Urine RBC 11-20 H (0-2) /HPF Urine WBC >50 H (0-5) /HPF Ur Squamous Epith Cells 0-2 (0-2) /HPF Urine Bacteria 4+ (None Seen) Hyaline Casts 0-2 (0-2) /LPF Radiology Impression Discussion of test interpretation with radiology: I have reviewed the radiologist's reading. Radiologist Impression: FINDINGS: LUNG BASES: The visualized lung bases are unremarkable. LIVER, GALLBLADDER, AND BILIARY TREE: The liver has a cirrhotic morphology with a macrolobulated contour. There is no focal suspicious hepatic lesion. No intrahepatic or extrahepatic biliary dilatation. The gallbladder demonstrates large intraluminal calcified gallstones. No definite wall thickening or pericholecystic fluid collection. PANCREAS: Mild atrophy. Otherwise normal. SPLEEN: Mild splenic enlargement, with the spleen measuring 12.5 cm in length. ADRENAL GLANDS: Unremarkable. KIDNEYS AND URETERS: Right kidney: A right nephroureteral stent is again noted in place, with pigtail formed in the superior collecting system, and inferior pigtail formed within the urinary bladder. There are numerous right renal calculi measuring up to 1.6 cm in size, without significant change. There is no hydronephrosis. There is a 1.6 cm cyst in the upper pole. Left kidney: There is a 7 mm nonobstructing calculus in the lower pole. There is no hydronephrosis or hydroureter. There are tiny left renal cysts. BLADDER: Unremarkable. GASTROINTESTINAL TRACT: Redemonstration of an anastomotic suture line at the rectosigmoid junction, with abutting inflammation and fat stranding, in keeping with either persistent or recurrent diverticulitis. There is no abscess or complication evident. Remainder of the colon is normal in course and caliber without wall thickening or additional inflammation. The small bowel is normal in course and caliber without wall thickening or inflammation. The stomach, and duodenal sweep have a normal appearance. The appendix is not well visualized and may be surgically absent. There are no CT features of appendicitis. ABDOMINAL WALL: Ventral rectus diastases with incisional hernia containing numerous loops of small bowel, transverse colon, and mesenteric/omental fat. LYMPH NODES: No abnormal lymphadenopathy. VASCULAR: Extensive calcification of the aorta and iliac arteries without aneurysm. PELVIC VISCERA: There is been a hysterectomy. There are no adnexal masses. OSSEOUS STRUCTURES: No suspicious lytic or blastic bone lesions. Advanced degenerative spondylosis of the spine, with a hemangioma in the L2 vertebral body. There are bilateral hip joint degenerative changes. CT/CT abdomen pelvis w IV con IMPRESSION: 1. Persistent versus recurrent inflammation involving a short segment of sigmoid colon in the region of the rectosigmoid anastomosis. This could represent acute diverticulitis. No complication or abscess. 2. Right nephroureteral stent in place. Bilateral nonobstructing right greater than left renal calculi. No hydronephrosis is noted. 3. Cirrhotic morphology of the liver. No suspicious lesion. Mild splenomegaly. 4. Cholelithiasis. 5. Additional ancillary findings as discussed in the body of the report. Electronically signed by: Adrian Otto MD 05/31/2024 03:36 PM EDT Dictated By: Adrian Otto MD Discharge Plan Discharge Clinical Impression: Urinary tract infection due to ESBL Klebsiella Patient Disposition: Admitted As Inpatient
[2024-05-31 11:53] LABS: MANUAL DIFF FLAG NO
[2024-05-31 11:59] LABS: Appearance Urine Turbid; Color Urine Yellow; Glucose Urine UA Negative (Negative); Leukocyte Esterase Urine Large (3+) (Negative); Nitrite Urine Positive (Negative); UMIC TRIGGER UACC YES; Urine Blood Moderate (2+) (Negative); Urine Ketones Negative (Negative); Urine Protein 30 (1+) mg/dL (Neg-Trace)
[2024-05-31 12:04] LABS: Bacteria Urine 4+ (None Seen); Hyaline Casts Urine 0-2 /LPF (0-2); Squamous Epithelial Cell Urine 0-2 /HPF (0-2); UACC Culture Trigger YES; WBC Urine >50 /HPF (0-5)
[2024-05-31 12:05] LABS: Basophils Absolute Auto 0.1 X10*3/uL (0.0-0.2); Basophils Percent Auto 0.6 % (0-2); Eosinophils Absolute Auto 0.1 X10*3/uL (0.0-0.4); Eosinophils Percent Auto 1.7 % (0-4); Hemoglobin 10.3 g/dl (12.0-16.0); Imm Gran Abs Auto 0.09 X10*3/uL (0.00-0.03); Imm Gran Pct Auto 1.2 % (0.0-0.4); Lymphocytes Absolute Auto 2.1 X10*3/uL (1.2-4.9); Lymphocytes Percent Auto 27.5 % (20-40); Mean Corpuscular HGB Conc 31.2 g/dl (31.0-35.0); Mean Corpuscular Hemoglobin 26.7 pg (27.0-33.0); Mean Corpuscular Volume 85.5 fL (80.0-98.0); Mean Platelet Volume 9.6 fL (9.4-12.3); Monocytes Absolute Auto 0.6 X10*3/uL (0.1-1.2); Monocytes Percent Auto 8.2 % (2-11); Neutrophils Absolute Auto 4.7 x10*3/uL (2.0-8.3); Neutrophils Percent Auto 60.8 % (45-73); Platelet Count 242 X10*3/uL (160-400); Red Blood Count 3.86 X10*6/uL (4.20-5.50); Red Cell Distribution Width 18.2 % (11.0-16.0); White Blood Count 7.7 X10*3/uL (4.8-10.8)
[2024-05-31 12:18] LABS: Alanine Aminotransferase 25 U/L (0-31); Albumin Level 3.6 g/dL (3.5-5.0); Alkaline Phosphatase 62 U/L (39-117); Anion Gap 11 (12-20); Aspartate Amino Transferase 40 U/L (5-31); Bilirubin Direct 0.2 mg/dL (0.0-0.5); Bilirubin Total 0.5 mg/dL (0.0-1.0); Blood Urea Nitrogen 18 mg/dL (9-16); Calcium 9.5 mg/dL (8.4-10.2); Carbon Dioxide 26 mmol/L (22-29); Chloride 106 mmol/L (96-108); Estimated Glomerular Filt Rate 41; Glucose Random 135 mg/dL (60-115); Magnesium 2.1 mg/dL (1.6-2.6); Potassium 4.5 mmol/L (3.3-5.1); Sodium 138 mmol/L (135-145); Total Protein 7.5 g/dL (6.5-8.0)
[2024-05-31] MEDS: 0.9 % Sodium Chloride 1,000 ML 999 ML IV (14:05)
--- OUTSIDE RECORDS SUMMARY | 2024-05-31 14:40 | XMS_ITS ---
Author Organization [facility] Address [address] [place] [address] Care Team Providers Care Nailer Machine Name Role Phone Preston Wang MD Primary Care Provider Unavail Lucy Guadalupe Unavailable [phone] REASON FOR VISIT SD cx 06/27 Encounters Encounter Location Date Provider Diagnosis [facility] [address] [place] [address] 06/28/2023 Lucy Castro Plan Of Treatment No Information Progress Notes * Casimiro DOANineDOB: 8 (78 yo F)Acc No.[id number]:06/28/2023 Patient:?MeliKemalXi :1945???Age:78 Y???Sex:Female Address:[address] [place], [place] [address] [address] * true * Date:? Generated for Printi ng/Faxing/eTransmitting on:?05/31/2024 02:39 PM EDT
--- OUTSIDE RECORDS SUMMARY | 2024-05-31 14:40 | XMS_ITS | Clinical Summary ---
Author Organization [facility] ity Address [address] [place] [address] Care Team Providers Care Tire Retreader Name Role Phone Preston Wang DO Primary Care Provider [phone] Social History Tobacco Use Types Packs/Day Years [...] Documents on File Type Date Recorded Patient Assistant To The Director Expl anation Health Care Decision (hx) 10/13/2017 AD ELLE DIRECTIVE Care Teams Tire Retreader Relationship Specialty Start Date End Date Preston Wang DO [address] [place] [id number] PCP - General Internal Medicine 09/05/17
--- OUTSIDE RECORDS SUMMARY | 2024-05-31 14:40 | XMS_ITS | Patient Health Record ---
Author [facility] Address [address] [facility] [place] [address] Care Team Providers Care Director Global Intelligence Name Role Phone Preston Wang MD Primary Care Provider Unavail able Lucy Castro Unavailable [phone] Allergies Allergen (clinical drug ingredient) Drug/Non Drug [...] Problem Status W/U Status Risk Notes Problem [id number] Hammer toe of le ft foot (M20.42) Active confirmed Problem [id number] Neuropathy (G62.9) Active confirmed Problem [id number] Atherosclerosi s of artery of both lower extremities (I70.203) Active confirmed Encounters Encounter Location Date Provider Diagnosis [facility] [address] [place] [address] 06/28/2023 Lucy Castro Plan Of Treatment Pending Test Test Name Order Date X ray : Foot, left 3V 08/20/2022 X ray : Foot, left 3V 09/10/2022 X ray : Foot, left 3V 10/08/2022 [id number] NAIL, 1-5 12/21/2017 [id number] DYSTROPHIC NAILS ANY # Insurance Providers Payer Name Payer Address Payer Phone Subscriber Number Group Number Insured Name Patient Relationship to Insured Coverage Start Date Coverage End Date Medicare National [employer]t [employer] [address] [facility] [place] [address] [id number] Xi Garrison Self - patient is the insured 3 [employer] [address] [place] [address] [phone] [id number] Xi Garrison Self - patient is [...]
--- OUTSIDE RECORDS SUMMARY | 2024-05-31 14:40 | XMS_ITS | Clinical Summary ---
Author Organization Unknown Care Team Providers Care Delivery Room Supervisor Name Role Phone VLAD SERNA, BEAR Unavailable Unavailab ab KOCH RN, ABIEL Unavailable Unavailable JERROD RN, ADMISSION NURSE, MALIKA Unavail able Unavailable ANABELLA RN, SHAYY Unavailable Unavailable Payers Payer Name Policy Type Policy Number Effective Date Expira tion Date MEDICARE - [facility] [place] [id number] [facility] [id number] Problems Condition Name Condition Details Condition Category [...] DISEASE WITHOUT ESOPHAGITIS Active 02-07 00:00: 00 CORRECTION (CURRENT) USE OF ORAL HYPOGLYCEMIC DRUGS Active [...] 10 mg tablet 2023-02 00:00: 00 Yes [id number] 1 tablet DAILY 1 tablet DAILY (route: oral) Med Classific ation: Cardiovas cular Therapy Agents B-complex with vitamin C 400 mcg-500 mg tablet 2023-02 00:00: 00 Yes [id number] 1 tablet DAILY 1 tablet DAILY (route: oral) Med Classific ation: Electroly te Balance-N utritiona l Products clindamycin HCl 300 mg capsule -20 00:00: 00 11-10 23:59 :00 No [id number] 1 capsule EVERY 6 HOURS 1 capsule EVERY 6 HOURS (route: oral) Med Classific ation: Anti-Infe ctive Agents furosemide 40 mg tablet 2023-02 00:00: 00 Yes [id number] 1 tablet DAILY 1 tablet DAILY (route: oral) Med Classific ation: Cardiovas cular Therapy Agents levothyroxi ne 112 mcg tablet 2023-02 00:00: 00 04-25 23:59 :00 No [id number] 1 tablet DAILY 1 tablet DAILY (route: oral) Med Classific ation: Endocrine metformin 500 mg tablet 2023-02 00:00: 00 Yes [id number] 1 tablet DAILY 1 tablet DAILY (route: oral) Med Classific ation: Endocrine Probiotic Acidophilus 250 million cell capsule 2023-02 00:00: 00 Yes [id number] 1 capsule DAILY 1 capsule DAILY (route: oral) Med Classific ation: Gastroint estinal Therapy Agents tramadol 50 mg tablet 2023-02 00:00: 00 Yes [id number] 1 tablet 3 TIMES DAILY 1 tablet 3 TIMES DAILY (route: oral) Med Classific ation: Analgesic , Anti-infl ammatory or Antipyret ic Vitamin D3 25 mcg (1,000 unit) capsule 2023-02 00:00: 00 Yes [id number] 2 capsule DAILY 2 capsule DAILY (route: oral) Med Classific ation: Electroly te Balance-N utritiona l Products acetaminoph en 500 mg tablet 04-02 00:00: 00 Yes [id number] 2 tablet EVERY 6 HOURS 2 tablet EVERY 6 HOURS (route: oral) Med Classific ation: Analgesic , Anti-infl ammatory or Antipyret ic hydrocodone 5 mg-acetamin ophen 325 mg tablet 04-02 00:00: 00 Yes [id number] 1 tablet EVERY 4 HOURS 1 tablet EVERY 4 HOURS (route: oral) Med Classific ation: Analgesic , Anti-infl ammatory or Antipyret ic levothyroxi ne 112 mcg tablet 04-02 00:00: 00 Yes [id number] 2 tablet DAILY 2 tablet DAILY (route: oral) Med Classific ation: Endocrine levothyroxi ne 112 mcg tablet 04-02 00:00: 00 Yes [id number] 1 tablet DAILY 1 tablet DAILY (route: [...] MAINTAIN SITUATIONAL AWARENESS AND WILL NOTIFY CLINICAL FOOTBALL PAD REPAIRER AND PHYSICIAN/PROVIDER WITH ANY CHANGE IN CONDITION. [code = SKILLED NURSE TO PERFORM ENVIRONMENTAL SAFETY RISK ASSESSMENT AND FALL RISK ASSESSMENT AND PROVIDE INSTRUCTION TO IMPLEMENT ENVIRONMENTAL SAFETY AND FALL PREVENTION STRATEGIES THROUGHOUT THE CERTIFICATION PERIOD. SKILLED NURSE WILL MAINTAIN SITUATIONAL AWARENESS AND WILL NOTIFY CLINICAL FOOTBALL PAD REPAIRER AND PHYSICIAN/PROVIDER WITH ANY CHANGE IN CONDITION.] [...] End Date/Time Encounter Type Admission Type Attending [facility] Care Department Encounter ID Discharge Date Discharge Status Discharge Condition Discharge Reason Percent Goals Met 2023-11-09 00:00:00 2024-07-05 00:00:00 Outpatient RECERTIFIC SHAYY DASILVA [facility] [id number] 36.36
--- OUTSIDE RECORDS SUMMARY | 2024-05-31 14:40 | XMS_ITS ---
Author Organization [facility] Address [address] [place] [address] Care Team Providers Care Fire Lookout Name Role Phone Felipe SERNA, Preston Primary Care Provider Unavail able Lucy Castro Unavailable [phone] Encounters Encounter Location Date Provider Diagnosis [facility] [address] [place] [address] 06/28/2023 Lucy Castro Plan Of Treatment No Information Progress Notes * Casimiro DOANineDOB: 8 (79 yo F)Acc No.[id number]:06/28/2023 Progress Note Patient:?Xi DOAN Provider:?Lucy Castro DPM :1945???Age:78 Y???Sex:Female D ate:06/28/2023 Address:[address] [place], [place] [id number] Pcp:Preston Wang MD Subjective: * Chief Complaints: [...] Castro DPM Date:? Generated for Printi ng/Faxing/eTransmitting on:?05/31/2024 02:39 PM EDT
[2024-05-31] MEDS: iohexoL 350 MG/ML 100 ML INFUS..BTL IV (14:47)
--- NOTE | 2024-05-31 17:25 | P.HPHOSP_ITS ---
History of Present Illness Date of Service: 05/31/24 Chief Complaint: vaginal burning 79F PMH DM, hypertension, hyperlipidemia, hypothyroid, obesity, sigmoid stricture status post Vicki procedure and reversal, iliopsoas abscess, atrophic vaginitis presented with vaginal burning. Patient states symptoms have been ongoing for the past 2 months. Was diagnosed with urinary tract infection treated with cefuroxime, however, culture from 05/17/2024 was resistant. Was also seen by Gynecology on 05/29/2024 and diagnosed with atrophic vaginitis and prescribed terazosin Lotrisone but has not started yet. Patient also reports suprapubic discomfort. Denies fever or chills. CT abdomen showed persistent versus recurrent inflammation involving a short segment of sigmoid colon in the region of the rectosigmoid anastomosis, right nephroureteral stent in place with nonobstructing stones, cirrhotic morphology of liver with mild splenomegaly. Review of Systems 2 Review of Systems: Yes all other systems are reviewed and are negative [facility] Medical History Dysuria Abscess Hospital discharge follow-up Generalized abdominal pain Encounter for wheelchair assessment Diverticular disease Major depressive disorder Heel spur Chronic low back pain Uterine cancer Hyperthyroidism Weakness of both lower extremities Hydroureteronephrosis Wound infection Open wound of back, complicated Cellulitis Frequency of urination Vaginal burning Vaginal itching PMB (postmenopausal bleeding) Cirrhosis of liver Does mobilize using walker PONV (postoperative nausea and vomiting) Left foot drop Fatty liver Fibromyalgia Neuropathy RBBB Cholelithiasis Staghorn calculus Renal calculus, bilateral Renal calyceal dilation determined by ultrasound UTI (urinary tract infection) Diabetes mellitus, type II Ganglion cyst Plantar fasciitis Anxiety OA (osteoarthritis) Obstructive airway disease Hypercholesterolemia Low back pain Sciatica Hypothyroidism HTN (hypertension) Primary osteoarthritis of right knee Retained ureteral stent Renal stones Staghorn calculus Perirectal abscess Family History Father Alcohol dependence Mother CHF (congestive heart failure) Cancer of breast Mother No problems noted. Other Alcoholic cirrhosis Substance use disorder Surgical History History of colostomy reversal (02/20/24) History of colectomy (~10/06/23) Status post cystoscopy with ureteral stent placement History of lumbar discectomy History of lumpectomy of both breasts History of cystoscopy History of lithotripsy Hx of colonoscopy (~04/28/23) History of surgery Social History Household Members: Significant Other Housing: House Are you a primary grounds caretaker to a significant other at home: No Do you presently have visiting nurse or other home services: Yes Alcohol intake: current Alcohol intake frequency: does not drink Alcohol type: hard liquor Comment: wheelchair for long distances Patient Tobacco Use Status: Former Tobacco user Tobacco use type: Cigarette Years Smoked: 27 e-Cigarette/Vaping Use: Never Used Second Hand Smoke Exposure: Yes Advance Directives: Yes Advance Directives on File: Yes Advance Directives Date on File: 04/06/21 Do you have a plan to hurt others: No Plan Patient : No service: No Current occupational status: disabled Cognitive needs: Yes (wheelchair) Hearing needs: No Vision needs: Yes (Glasses) Meds Allergies Allergy/AdvReac Type Severity Reaction Status Date / Time chlorpheniramine Allergy Severe HALLUCINATI Verified 05/31/24 11:28 [From TUSSIONEX] ONS ciprofloxacin [From CIPRO] Allergy Severe ANAPHYLAXIS Verified 05/31/24 11:28 escitalopram [ESCITALOPRAM] Allergy Severe DISSOCIATIVE Verified 05/31/24 11:28 REACTION fluoxetine [FLUOXETINE] Allergy Severe DISSOCIATIVE Verified 05/31/24 11:28 REACTION hydrocodone [From TUSSIONEX] Allergy Severe HALLUCINATI Verified 05/31/24 11:28 ONS ibuprofen [IBUPROFEN] Allergy Severe THROAT Verified 05/31/24 11:28 SWELLING Sulfa (Sulfonamide Allergy Severe DYSPNEA Verified 05/31/24 11:28 Antibiotics) [SULFA (SULFONAMIDE ANTIBIOTICS)] clarithromycin [From BIAXIN] Allergy Intermediate ABD.PAIN Verified 05/31/24 11:28 duloxetine [DULOXETINE] Allergy Intermediate FACIAL Verified 05/31/24 11:28 NUMBNESS erythromycin base Allergy Intermediate RASH Verified 05/31/24 11:28 [ERYTHROMYCIN BASE] Penicillins [PENICILLINS] Allergy Intermediate RASH Verified 05/31/24 11:28 tetracycline [TETRACYCLINE] Allergy Intermediate DIARRHEA Verified 05/31/24 11:28 codeine [CODEINE] Allergy Unknown TINNITIS Verified 05/31/24 11:28 guaifenesin Allergy Unknown Unknown Verified 05/31/24 11:28 levofloxacin [From Levaquin] Allergy Unknown Unknown Verified 05/31/24 11:28 pregabalin Allergy Unknown Unknown Verified 05/31/24 11:28 Active Medications: Current Medications Acetaminophen (Acetaminophen 325 Mg Tablet) 650 mg PO Q6H PRN PRN Reason: Pain, Mild 1-3,fever,headache Betamethasone Dipropion Augmented (Betamethasone Dip Aug 0.05% Cr 15 Gm Tube) 1 appl TOPICAL BID NOHELIA; Protocol Calcium Carbonate (Calcium Carbonate 750 Mg Tab.Chew) 750 mg PO Q4H PRN PRN Reason: Heartburn Clotrimazole (Clotrimazole 1 % Vaginal Cream 45 Gm Tube) 1 appl VAGINAL BEDTIME NOHELIA Stop: 06/06/24 21:01 Dextrose (Dextrose 50 % 25 Gm/50 Ml Syringe) 25 gm IVPUSH Q15M PRN; Protocol PRN Reason: per Hypoglycemia Standing Ord. Diphenhydramine HCl (Diphenhydramine Hcl 50 Mg/Ml Vial) 25 mg IVPUSH ONCE PRN PRN Reason: Allergic Reaction Enoxaparin Sodium (Enoxaparin Sodium 40 Mg/0.4 Ml Syringe) 40 mg SUBCUT Q24H NOHELIA Glucose (Glucose Gel 15 Gm Gel..Gram.) 15 gm PO Q15M PRN; Protocol PRN Reason: per Hypoglycemia Standing Ord. Insulin Human Lispro (Insulin Lispro 100 Unit/Ml 3 Ml Vial) 0 unit SUBCUT QIDACHS [facility]; Protocol Magnesium Hydroxide (Milk Of Magnesia 30 Ml Oral.Susp) 30 ml PO DAILY PRN PRN Reason: Constipation Melatonin (Melatonin 3 Mg Tablet) 6 mg PO BEDTIME PRN PRN Reason: Insomnia Meropenem (Meropenem 1 Gm Vial) 1 gm IVPUSH Q8H NOHELIA Sodium Chloride (0.9 % Sodium Chloride Flush 3 Ml Syringe) 3 ml IVFLUSH QSHIFT [facility] Home Medications ?Medication ?Instructions ?Recorded ?Confirmed ?Last Taken ?Type atorvastatin 10 mg tablet 10 mg PO DAILY 04/05/21 05/30/24 03/28/24 History metformin 500 mg tablet,extended 1 tab PO DAILY@1700 04/06/21 05/30/24 03/28/24 History release 24 hr acetaminophen 500 mg tablet 1,000 mg PO Q6H PRN Pain 10/04/23 05/30/24 Unknown History hydrocodone 5 mg-acetaminophen 325 1 tab PO Q4-6H PRN Pain (Scale 03/29/24 05/30/24 Unknown History mg tablet Score 7-10) pyridoxine (vitamin B6) 100 mg 100 mg PO DAILY 04/11/24 05/30/24 Unknown History tablet (Vitamin B-6) tramadol 50 mg tablet 50 mg PO DAILY 04/11/24 05/30/24 Unknown History cholecalciferol (vitamin D3) 25 50 mcg PO DAILY 05/19/24 05/30/24 Unknown History mcg (1,000 unit) capsule Physical Exam 2 Vital Signs and Narrative: Vital Signs: Last Vital Signs Temp 98.4 F 05/31/24 16:31 Pulse 93 05/31/24 16:31 Resp 16 05/31/24 16:31 BP 102/51 L 05/31/24 16:31 Pulse Ox 98 05/31/24 16:31 O2 Del Method Room Air 05/31/24 16:31 BMI result Body Mass Index 37.2 General: AO X 3, no acute distress Resp: CTA bilateral, no accessory muscles used CVS: S1,S2,RRR GI: soft, mild suprapubic tenderness Neuro: motor grossly intact, alert Psych: appropriate affect, appropriate insight Results Labs 05/31/24 11:47 05/31/24 11:47 Labs: Laboratory Results - last 24 hr 05/31/24 11:47 MCV 85.5 MCH 26.7 L MCHC 31.2 RDW 18.2 H Plt Count 242 MPV 9.6 Immature Gran % (Auto) 1.2 H Neut % (Auto) 60.8 Lymph % (Auto) 27.5 [place] % (Auto) 8.2 Eos % (Auto) 1.7 Baso % (Auto) 0.6 Lymph # (Auto) 2.1 [place] # (Auto) 0.6 Eos # (Auto) 0.1 Baso # (Auto) 0.1 Abs Immat Gran (auto) 0.09 H Absolute Neuts (auto) 4.7 Absolute Nucleated RBC 0.000 Nucleated RBC % (auto) 0.0 Anion Gap 11 L Estim Creat Clear Calc 38.0 Estimated GFR 41 Random Glucose 135 H Calcium 9.5 Magnesium 2.1 Total Bilirubin 0.5 Direct Bilirubin 0.2 AST 40 H ALT 25 Alkaline Phosphatase 62 Total Protein 7.5 Albumin 3.6 Urine Color Yellow Urine Appearance Turbid Urine pH 7.0 Ur Specific Kohler 1.010 Urine Protein 30 (1+) H Urine Glucose (UA) Negative Urine Ketones Negative Urine Blood Moderate (2+) H Urine Nitrite Positive H Ur Leukocyte Esterase Large (3+) H Urine RBC 11-20 H Urine WBC >50 H Ur Squamous Epith Cells 0-2 Urine Bacteria 4+ Hyaline Casts 0-2 Imaging Radiologist's Impressions: Impressions Abdomen/Pelvis CT 05/31/24 13:41 IMPRESSION: 1. Persistent versus recurrent inflammation involving a short segment of sigmoid colon in the region of the rectosigmoid anastomosis. This could represent acute diverticulitis. No complication or abscess. 2. Right nephroureteral stent in place. Bilateral nonobstructing right greater than left renal calculi. No hydronephrosis is noted. 3. Cirrhotic morphology of the liver. No suspicious lesion. Mild splenomegaly. 4. Cholelithiasis. 5. Additional ancillary findings as discussed in the body of the report. Electronically signed by: Adrian Otto MD 05/31/2024 03:36 PM EDT RP Assessment and Plan (1) Major depressive disorder: Status: Acute Plan 79F PMH DM, hypertension, hyperlipidemia, hypothyroid, obesity, sigmoid stricture status post Vicki procedure and reversal, iliopsoas abscess, atrophic vaginitis presented with vaginal burning Vaginal burning Likely due to atrophic vaginitis Continue topical antifungal and steroid Multidrug resistant UTI and possible acute diverticulitis IV ertapenem, follow up cultures, ID eval Cirrhotic morphology found on liver Likely REAL, appears fully compensated Diabetes Insulin sliding scale Obesity Weight loss recommended DVT prophylaxis with Lovenox Full Code Given history of multidrug resistant organisms requiring IV antibiotics expected require at least 2 midnights inpatient Quality Stroke Does the patient have a stroke diagnosis?: No VTE Prior VTE?: No VTE Risk Level:: Medical - moderate - high VTE Device Contraindication: Treatment Not Indicated VTE Drug Contraindication: N/A - Med Ordered
[2024-05-31] MEDS: Meropenem 1 GM VIAL IVPUSH (17:57)
--- NOTE | 2024-05-31 18:36 | PHA.MEDREC ---
Addendum entered by Roldan Washington [facility] 05/31/24 19:26: MED REC CHECKED BY [facility] Original Note: Pharmacy Consult ? Medication Reconciliation Pharmacy has completed the medication reconciliation. Spoke to patient to confirm med list. Patient states she is no longer on Clotrimazole-betamethasone 1 % cream. Miconazole nitrate 2% cream . Patient confirmed she takes Levothyroxine 112 mg every day except Sundays and Tuesday she takes 224 mg (2x 112mg).
--- NOTE | 2024-05-31 21:35 | MHC.EDTECH ---
This pct assumed care of Patient at 1900 ,vitals taken ,blood sugar check ,RN Loco aware of bs result ,Patient walk independently to bathroom,Patient was offer snacks ,but refused ,void and back to bed ,no apparent distress noted ,Call guzman within Patient reach ,
[2024-05-31 21:44] LABS: Glucose, Whole Blood 138 mg/dL (60-115)
[2024-06-01 00:33] VITALS: BP 131/59; PULSE 76; RESP 16; TEMP 37.1; O2SAT 97
--- NOTE | 2024-06-01 00:34 | MHC.EDTECH ---
0000 rounding done ,midnight vitals taken ,Patient had grham crackers and diet kendrick sandoval for midnight snack .
[2024-06-01] MEDS: Betamethasone Dip Aug 0.05% Cr 15 GM TUBE 1 APPL TOPICAL ×3 (01:57→20:08)
[2024-06-01] MEDS: Clotrimazole 1 % Vaginal Cream 45 GM TUBE 1 APPL VAGINAL ×2 (01:57→20:08)
[2024-06-01 02:24] VITALS: BP 123/58; PULSE 82; RESP 18; TEMP 36; O2SAT 98
[2024-06-01 03:23] VITALS: BP 143/63; PULSE 82; RESP 18; TEMP 36.1; O2SAT 96
[2024-06-01] MEDS: traMADoL HCL 50 MG TABLET PO (04:42)
[2024-06-01] MEDS: Levothyroxine Sodium 112 MCG TABLET PO (04:43)
[2024-06-01 05:48] LABS: Hemoglobin 9.6 g/dl (12.0-16.0); Mean Corpuscular Hemoglobin 26.7 pg (27.0-33.0); Mean Corpuscular Volume 86.4 fL (80.0-98.0); Mean Platelet Volume 9.7 fL (9.4-12.3); Platelet Count 202 X10*3/uL (160-400); Red Blood Count 3.59 X10*6/uL (4.20-5.50); Red Cell Distribution Width 18.3 % (11.0-16.0); White Blood Count 7.2 X10*3/uL (4.8-10.8)
[2024-06-01 06:06] LABS: Anion Gap 13 (12-20); Blood Urea Nitrogen 21 mg/dL (9-16); Calcium 9.1 mg/dL (8.4-10.2); Carbon Dioxide 23 mmol/L (22-29); Chloride 109 mmol/L (96-108); Creatinine Clr Calc Pharmacy 33.9; Estimated Glomerular Filt Rate 36; Glucose Random 127 mg/dL (60-115); Magnesium 2.2 mg/dL (1.6-2.6); Potassium 4.5 mmol/L (3.3-5.1); Sodium 140 mmol/L (135-145)
[2024-06-01 07:52] VITALS: BP 125/58; PULSE 70; RESP 18; TEMP 36.1; O2SAT 96
[2024-06-01 08:15] LABS: Glucose, Whole Blood 95 mg/dL (60-115)
[2024-06-01] MEDS: Enoxaparin Sodium 40 MG/0.4 ML SYRINGE SUBCUT (08:23)
[2024-06-01] MEDS: Furosemide 40 MG TABLET PO (08:23)
[2024-06-01] MEDS: lisinopriL 10 MG TABLET PO (08:24)
[2024-06-01] MEDS: 0.9 % Sodium Chloride Flush 3 ML SYRINGE IVFLUSH ×2 (08:24→20:09)
[2024-06-01] MEDS: Atorvastatin Calcium 10 MG TABLET PO (08:24)
[2024-06-01] MEDS: Pyridoxine HCl (Vitamin B6) 50 MG TABLET 100 MG PO (08:24)
[2024-06-01] MEDS: Cholecalciferol (Vitamin D3) 25 MCG TABLET 50 MCG PO (08:24)
[2024-06-01] MEDS: Meropenem 1 GM VIAL IVPUSH (08:24)
--- NOTE | 2024-06-01 09:43 | P.PNIM_ITS ---
Subjective Subjective Date of Service: 06/01/24 Interval History: no changes Physical Exam 2 Vital Signs: Vital Signs: Last Vital Signs Temp 97.0 F 06/01/24 07:52 Pulse 70 06/01/24 07:52 Resp 18 06/01/24 07:52 BP 125/58 L 06/01/24 07:52 Pulse Ox 96 06/01/24 07:52 O2 Del Method Room Air 06/01/24 07:52 BMI result Body Mass Index 37.2 General: AO X 3, no acute distress Resp: CTA bilateral, no accessory muscles used CVS: S1,S2,RRR GI: soft, non tender, non distended Neuro: motor grossly intact, alert Psych: appropriate affect, appropriate insight Objective Data Active Medications Acetaminophen (Acetaminophen 325 Mg Tablet) 650 mg PO Q6H PRN PRN Reason: Pain, Mild 1-3,fever,headache Hydrocodone Bitart/Acetaminophen (Hydrocodone Bit/Acetam 5/325 Tablet) 1 tab PO Q4H PRN PRN Reason: Pain (Scale Score 7-10) Atorvastatin Calcium (Atorvastatin Calcium 10 Mg Tablet) 10 mg PO DAILY [facility] Last Admin: 06/01/24 08:24 Dose: 10 mg Documented By: ARTIS Betamethasone Dipropion Augmented (Betamethasone Dip Aug 0.05% Cr 15 Gm Tube) 1 appl TOPICAL BID [facility]; Protocol Last Admin: 06/01/24 08:23 Dose: 1 appl Documented By: ARTIS Calcium Carbonate (Calcium Carbonate 750 Mg Tab.Chew) 750 mg PO Q4H PRN PRN Reason: Heartburn Clotrimazole (Clotrimazole 1 % Vaginal Cream 45 Gm Tube) 1 appl VAGINAL BEDTIME [facility] Stop: 06/06/24 21:01 Last Admin: 06/01/24 01:57 Dose: 1 appl Documented By: ZAC Dextrose (Dextrose 50 % 25 Gm/50 Ml Syringe) 25 gm IVPUSH Q15M PRN; Protocol PRN Reason: per Hypoglycemia Standing Ord. Diphenhydramine HCl (Diphenhydramine Hcl 50 Mg/Ml Vial) 25 mg IVPUSH ONCE PRN PRN Reason: Allergic Reaction Enoxaparin Sodium (Enoxaparin Sodium 40 Mg/0.4 Ml Syringe) 40 mg SUBCUT Q24H [facility] Last Admin: 06/01/24 08:23 Dose: 40 mg Documented By: ARTIS Furosemide (Furosemide 40 Mg Tablet) 40 mg PO DAILY [facility]; Protocol Last Admin: 06/01/24 08:23 Dose: 40 mg Documented By: ARTIS Glucose (Glucose Gel 15 Gm Gel..Gram.) 15 gm PO Q15M PRN; Protocol PRN Reason: per Hypoglycemia Standing Ord. Insulin Human Lispro (Insulin Lispro 100 Unit/Ml 3 Ml Vial) 0 unit SUBCUT QIDACHS [facility]; Protocol Last Admin: 06/01/24 07:27 Dose: Not Given Documented By: ARTIS Non-Admin Reason: pt refused POC Levothyroxine Sodium (Levothyroxine Sodium 112 Mcg Tablet) 112 mcg PO MOTUTHFRSA@0600 [facility] Last Admin: 06/01/24 04:43 Dose: 112 mcg Documented By: ZAC Levothyroxine Sodium (Levothyroxine Sodium 112 Mcg Tablet) 224 mcg PO SUWE@0600 [facility] Lisinopril (Lisinopril 10 Mg Tablet) 10 mg PO DAILY [facility]; Protocol Last Admin: 06/01/24 08:24 Dose: 10 mg Documented By: ARTIS Magnesium Hydroxide (Milk Of Magnesia 30 Ml Oral.Susp) 30 ml PO DAILY PRN PRN Reason: Constipation Melatonin (Melatonin 3 Mg Tablet) 6 mg PO BEDTIME PRN PRN Reason: Insomnia Meropenem (Meropenem 1 Gm Vial) 1 gm IVPUSH Q12H [facility] Last Admin: 06/01/24 08:24 Dose: 1 gm Documented By: ARTIS Pyridoxine HCl (Pyridoxine Hcl (Vitamin B6) 50 Mg Tablet) 100 mg PO DAILY [facility] Last Admin: 06/01/24 08:24 Dose: 100 mg Documented By: ARTIS Sodium Chloride (0.9 % Sodium Chloride Flush 3 Ml Syringe) 3 ml IVFLUSH QSHIFT [facility] Last Admin: 06/01/24 08:24 Dose: 3 ml Documented By: ARTIS Tramadol HCl (Tramadol Hcl 50 Mg Tablet) 50 mg PO DAILY PRN PRN Reason: Pain, Moderate(Pain Scale 4-6) Last Admin: 06/01/24 04:42 Dose: 50 mg Documented By: ZAC Vitamin D (Cholecalciferol (Vitamin D3) 25 Mcg Tablet) 50 mcg PO DAILY [facility] Last Admin: 06/01/24 08:24 Dose: 50 mcg Documented By: ARTIS Labs 06/01/24 05:09 06/01/24 05:09 Labs: Laboratory Results - last 24 hr 05/31/24 05/31/24 06/01/24 11:47 21:34 05:09 MCV 85.5 86.4 MCH 26.7 L 26.7 L MCHC 31.2 31.0 RDW 18.2 H 18.3 H Plt Count 242 202 MPV 9.6 9.7 Immature Gran % (Auto) 1.2 H Neut % (Auto) 60.8 Lymph % (Auto) 27.5 [place] % (Auto) 8.2 Eos % (Auto) 1.7 Baso % (Auto) 0.6 Lymph # (Auto) 2.1 [place] # (Auto) 0.6 Eos # (Auto) 0.1 Baso # (Auto) 0.1 Abs Immat Gran (auto) 0.09 H Absolute Neuts (auto) 4.7 Absolute Nucleated RBC 0.000 0.000 Nucleated RBC % (auto) 0.0 0.0 Anion Gap 11 L 13 Estim Creat Clear Calc 38.0 33.9 Estimated GFR 41 36 POC Glucose 138 H Random Glucose 135 H 127 H Calcium 9.5 9.1 Magnesium 2.1 2.2 Total Bilirubin 0.5 Direct Bilirubin 0.2 AST 40 H ALT 25 Alkaline Phosphatase 62 Total Protein 7.5 Albumin 3.6 Urine Color Yellow Urine Appearance Turbid Urine pH 7.0 Ur Specific [place] 1.010 Urine Protein 30 (1+) H Urine Glucose (UA) Negative Urine Ketones Negative Urine Blood Moderate (2+) H Urine Nitrite Positive H Ur Leukocyte Esterase Large (3+) H Urine RBC 11-20 H Urine WBC >50 H Ur Squamous Epith Cells 0-2 Urine Bacteria 4+ Hyaline Casts 0-2 06/01/24 08:10 MCV MCH MCHC RDW Plt Count MPV Immature Gran % (Auto) Neut % (Auto) Lymph % (Auto) [place] % (Auto) Eos % (Auto) Baso % (Auto) Lymph # (Auto) [place] # (Auto) Eos # (Auto) Baso # (Auto) Abs Immat Gran (auto) Absolute Neuts (auto) Absolute Nucleated RBC Nucleated RBC % (auto) Anion Gap Estim Creat Clear Calc Estimated GFR POC Glucose 95 Random Glucose Calcium Magnesium Total Bilirubin Direct Bilirubin AST ALT Alkaline Phosphatase Total Protein Albumin Urine Color Urine Appearance Urine pH Ur Specific [place] Urine Protein Urine Glucose (UA) Urine Ketones Urine Blood Urine Nitrite Ur Leukocyte Esterase Urine RBC Urine WBC Ur Squamous Epith Cells Urine Bacteria Hyaline Casts Assessment and Plan (1) Major depressive disorder: Status: Acute Plan 79F PMH DM, hypertension, hyperlipidemia, hypothyroid, obesity, sigmoid stricture status post Vicki procedure and reversal, iliopsoas abscess, atrophic vaginitis presented with vaginal burning Vaginal burning Likely due to atrophic vaginitis Continue topical antifungal and steroid Multidrug resistant UTI and possible acute diverticulitis IV meorpenem, follow up cultures, ID eval Cirrhotic morphology found on liver Likely REAL, appears fully compensated Diabetes Insulin sliding scale Obesity Weight loss recommended DVT prophylaxis with Lovenox Full Code reason for continued hospitalization:cultures pending Quality Stroke Does the patient have a stroke diagnosis?: No VTE Prior VTE?: No VTE Risk Level:: Medical - moderate - high VTE Device Contraindication: Treatment Not Indicated VTE Drug Contraindication: N/A - Med Ordered
[2024-06-01] MEDS: Acetaminophen 325 MG TABLET 650 MG PO (11:02)
[2024-06-01 11:38] LABS: Glucose, Whole Blood 128 mg/dL (60-115)
--- NOTE | 2024-06-01 12:32 | MHC.CM.PN ---
CM MET WITH PT AND S/O, AZUL, AT BEDSIDE PT LIVES AT HOME AND AZUL HELPS WITH ANY CARE NECESSARY SHE IS ACTIVE WITH [facility] FOR TWICE WEEKLY DRESSING CHANGES, AZUL CHANGES THEM THE OTHER 5 DAYS PER WEEK PT HAS A WALKER, ROLLATOR, W/C, GRAB BARS AND TUB BENCH HCP ON FILE PCP: [facility] DELIVERED DCP: HOME RESUME [facility] WILL TRANSPORT
[2024-06-01 15:49] VITALS: BP 120/54; PULSE 77; RESP 18; TEMP 37; O2SAT 100
[2024-06-01 16:32] LABS: Glucose, Whole Blood 140 mg/dL (60-115)
--- NOTE | 2024-06-01 17:25 | P.CNID_ITS ---
History of Present Illness Data of Consult Service Date: 06/01/24 Requesting physician: Reji Caceres Primary Care Provider: Ap Deal MD HPI Reason for consult: perineal external burning She presents with external burning as well as fatigue. She was sent by PCP for IV antibiotics. She has had MDR organisms in past,including drug resistant Klebsiella. She is not bactermic and has no hematuria or significant abdominal pain. She has been seen by Software Validation Technician and has atrophic vaginitis as burning cause. [facility] Past Medical History Medical History Dysuria Abscess Hospital discharge follow-up Generalized abdominal pain Encounter for wheelchair assessment Diverticular disease Major depressive disorder Heel spur Chronic low back pain Uterine cancer Hyperthyroidism Weakness of both lower extremities Hydroureteronephrosis Wound infection Open wound of back, complicated Cellulitis Frequency of urination Vaginal burning Vaginal itching PMB (postmenopausal bleeding) Cirrhosis of liver Does mobilize using walker PONV (postoperative nausea and vomiting) Left foot drop Fatty liver Fibromyalgia Neuropathy RBBB Cholelithiasis Staghorn calculus Renal calculus, bilateral Renal calyceal dilation determined by ultrasound UTI (urinary tract infection) Diabetes mellitus, type II Ganglion cyst Plantar fasciitis Anxiety OA (osteoarthritis) Obstructive airway disease Hypercholesterolemia Low back pain Sciatica Hypothyroidism HTN (hypertension) Primary osteoarthritis of right knee Retained ureteral stent Renal stones Staghorn calculus Perirectal abscess Family History Family History Father Alcohol dependence Mother CHF (congestive heart failure) Cancer of breast Mother No problems noted. Other Alcoholic cirrhosis Substance use disorder Family history: reviewed and not pertinent Surgical History Surgical History History of colostomy reversal (02/20/24) History of colectomy (~10/06/23) Status post cystoscopy with ureteral stent placement History of lumbar discectomy History of lumpectomy of both breasts History of cystoscopy History of lithotripsy Hx of colonoscopy (~04/28/23) History of surgery Social History Social History Household Members: Significant Other Housing: House Are you a primary medication care manager to a significant other at home: No Do you presently have visiting nurse or other home services: No Alcohol intake: current Alcohol intake frequency: does not drink Alcohol type: hard liquor Comment: wheelchair for long distances Patient Tobacco Use Status: Former Tobacco user Tobacco use type: Cigarette Years Smoked: 27 e-Cigarette/Vaping Use: Never Used Second Hand Smoke Exposure: Yes Use of substances other than those prescribed or required for medical reasons: No Currently Displaying Signs/Symptoms of Drug Intoxication Withdrawal: No Have you been hit, kicked, punched, or otherwise hurt by someone within the past year? If so, by whom?: No Do you feel safe in your current relationship?: Yes Is there a partner from a previous relationship who is making you feel unsafe now?: No Are you made to feel afraid or neglected: No Advance Directives: Yes Advance Directives on File: Yes Advance Directives Date on File: 04/06/21 Do you have a plan to hurt others: No Plan Recently lost weight without trying: No Eating poorly because of decreased appetite: No Patient : No : No Poor oral hygiene: No service: No Current occupational status: disabled Cognitive needs: Yes (wheelchair) Hearing needs: No Vision needs: Yes (Glasses) Meds Allergies Allergy/AdvReac Type Severity Reaction Status Date / Time chlorpheniramine Allergy Severe HALLUCINATI Verified 05/31/24 11:28 [From TUSSIONEX] ONS ciprofloxacin [From CIPRO] Allergy Severe ANAPHYLAXIS Verified 05/31/24 11:28 escitalopram [ESCITALOPRAM] Allergy Severe DISSOCIATIVE Verified 05/31/24 11:28 REACTION fluoxetine [FLUOXETINE] Allergy Severe DISSOCIATIVE Verified 05/31/24 11:28 REACTION hydrocodone [From TUSSIONEX] Allergy Severe HALLUCINATI Verified 05/31/24 11:28 ONS ibuprofen [IBUPROFEN] Allergy Severe THROAT Verified 05/31/24 11:28 SWELLING Sulfa (Sulfonamide Allergy Severe DYSPNEA Verified 05/31/24 11:28 Antibiotics) [SULFA (SULFONAMIDE ANTIBIOTICS)] clarithromycin [From BIAXIN] Allergy Intermediate ABD.PAIN Verified 05/31/24 11:28 duloxetine [DULOXETINE] Allergy Intermediate FACIAL Verified 05/31/24 11:28 NUMBNESS erythromycin base Allergy Intermediate RASH Verified 05/31/24 11:28 [ERYTHROMYCIN BASE] Penicillins [PENICILLINS] Allergy Intermediate RASH Verified 05/31/24 11:28 tetracycline [TETRACYCLINE] Allergy Intermediate DIARRHEA Verified 05/31/24 11:28 codeine [CODEINE] Allergy Unknown TINNITIS Verified 05/31/24 11:28 guaifenesin Allergy Unknown Unknown Verified 05/31/24 11:28 levofloxacin [From Levaquin] Allergy Unknown Unknown Verified 05/31/24 11:28 pregabalin Allergy Unknown Unknown Verified 05/31/24 11:28 Active Medications: Current Medications Acetaminophen (Acetaminophen 325 Mg Tablet) 650 mg PO Q6H PRN PRN Reason: Pain, Mild 1-3,fever,headache Last Admin: 06/01/24 11:02 Dose: 650 mg Hydrocodone Bitart/Acetaminophen (Hydrocodone Bit/Acetam 5/325 Tablet) 1 tab PO Q4H PRN PRN Reason: Pain (Scale Score 7-10) Atorvastatin Calcium (Atorvastatin Calcium 10 Mg Tablet) 10 mg PO DAILY [facility] Last Admin: 06/01/24 08:24 Dose: 10 mg Betamethasone Dipropion Augmented (Betamethasone Dip Aug 0.05% Cr 15 Gm Tube) 1 appl TOPICAL BID [facility]; Protocol Last Admin: 06/01/24 08:23 Dose: 1 appl Calcium Carbonate (Calcium Carbonate 750 Mg Tab.Chew) 750 mg PO Q4H PRN PRN Reason: Heartburn Clotrimazole (Clotrimazole 1 % Vaginal Cream 45 Gm Tube) 1 appl VAGINAL BEDTIME [facility] Stop: 06/06/24 21:01 Last Admin: 06/01/24 01:57 Dose: 1 appl Dextrose (Dextrose 50 % 25 Gm/50 Ml Syringe) 25 gm IVPUSH Q15M PRN; Protocol PRN Reason: per Hypoglycemia Standing Ord. Diphenhydramine HCl (Diphenhydramine Hcl 50 Mg/Ml Vial) 25 mg IVPUSH ONCE PRN PRN Reason: Allergic Reaction Enoxaparin Sodium (Enoxaparin Sodium 40 Mg/0.4 Ml Syringe) 40 mg SUBCUT Q24H [facility] Last Admin: 06/01/24 08:23 Dose: 40 mg Furosemide (Furosemide 40 Mg Tablet) 40 mg PO DAILY [facility]; Protocol Last Admin: 06/01/24 08:23 Dose: 40 mg Glucose (Glucose Gel 15 Gm Gel..Gram.) 15 gm PO Q15M PRN; Protocol PRN Reason: per Hypoglycemia Standing Ord. Insulin Human Lispro (Insulin Lispro 100 Unit/Ml 3 Ml Vial) 0 unit SUBCUT QIDACHS [facility]; Protocol Last Admin: 06/01/24 16:28 Dose: Not Given Levothyroxine Sodium (Levothyroxine Sodium 112 Mcg Tablet) 112 mcg PO MOTUTHFRSA@0600 [facility] Last Admin: 06/01/24 04:43 Dose: 112 mcg Levothyroxine Sodium (Levothyroxine Sodium 112 Mcg Tablet) 224 mcg PO SUWE@0600 [facility] Lisinopril (Lisinopril 10 Mg Tablet) 10 mg PO DAILY [facility]; Protocol Last Admin: 06/01/24 08:24 Dose: 10 mg Magnesium Hydroxide (Milk Of Magnesia 30 Ml Oral.Susp) 30 ml PO DAILY PRN PRN Reason: Constipation Melatonin (Melatonin 3 Mg Tablet) 6 mg PO BEDTIME PRN PRN Reason: Insomnia Meropenem (Meropenem 1 Gm Vial) 1 gm IVPUSH Q12H [facility] Last Admin: 06/01/24 08:24 Dose: 1 gm Pyridoxine HCl (Pyridoxine Hcl (Vitamin B6) 50 Mg Tablet) 100 mg PO DAILY [facility] Last Admin: 06/01/24 08:24 Dose: 100 mg Sodium Chloride (0.9 % Sodium Chloride Flush 3 Ml Syringe) 3 ml IVFLUSH QSHIFT [facility] Last Admin: 06/01/24 08:24 Dose: 3 ml Tramadol HCl (Tramadol Hcl 50 Mg Tablet) 50 mg PO DAILY PRN PRN Reason: Pain, Moderate(Pain Scale 4-6) Last Admin: 06/01/24 04:42 Dose: 50 mg Vitamin D (Cholecalciferol (Vitamin D3) 25 Mcg Tablet) 50 mcg PO DAILY [facility] Last Admin: 06/01/24 08:24 Dose: 50 mcg Home Medications ?Medication ?Instructions ?Recorded ?Confirmed ?Last Taken ?Type atorvastatin 10 mg tablet 10 mg PO DAILY 04/05/21 05/31/24 05/31/24 History metformin 500 mg tablet,extended 500 mg PO DAILY@1700 04/06/21 05/31/24 05/31/24 History release 24 hr acetaminophen 500 mg tablet 1,000 mg PO Q6H PRN Pain 10/04/23 05/31/24 Unknown History hydrocodone 5 mg-acetaminophen 325 1 tab PO Q4-6H PRN Pain (Scale 03/29/24 05/31/24 Unknown History mg tablet Score 7-10) pyridoxine (vitamin B6) 100 mg 100 mg PO DAILY 04/11/24 05/31/24 05/31/24 History tablet (Vitamin B-6) tramadol 50 mg tablet 50 mg PO DAILY PRN Pain 04/11/24 05/31/24 Unknown History cholecalciferol (vitamin D3) 25 50 mcg PO DAILY 05/19/24 05/31/24 05/31/24 History mcg (1,000 unit) capsule levothyroxine 112 mcg tablet 112 mcg PO MOTUTHFRSA@0600 05/31/24 05/31/24 05/31/24 History Physical Exam 2 Vital Signs: Vital Signs: Last Vital Signs Temp 98.6 F 06/01/24 15:49 Pulse 77 06/01/24 15:49 Resp 18 06/01/24 15:49 BP 120/54 L 06/01/24 15:49 Pulse Ox 100 06/01/24 15:49 O2 Del Method Room Air 06/01/24 15:49 BMI result Body Mass Index 37.2 Const: General: cooperative HEENT: Head: Yes normal to inspection Face and sinus: Yes normal facial exam Mouth: Normal oral and palatal mucosa present Teeth and gingiva: d entition normal Eyes: General: appearance normal, both eyes and all related structures P upils: Equal, round and reactive pupils present Resp: Effort & Inspection: normal respiratory effort Cardio: Rate: regular rate Rhythm: regular rhythm GI: Palpation (GI): Soft to palpation and nontender : General: Yes no CVA tenderness Back/Spine/Pelvis: Back: no CVA tenderness Skin: General skin exam: no rashes or lesions noted Neuro: General: moves all extremities Cranial nerves: Yes Equal, round and reactive pupils present Extrem: General: Yes normal to inspection Psych: Appearance: grossly normal Results Labs 06/01/24 05:09 06/01/24 05:09 Labs: Short CBC 06/01/24 Range/Units 05:09 WBC 7.2 (4.8-10.8) X10*3/uL Hgb 9.6 L (12.0-16.0) g/dl Hct 31.0 L (37.0-47.0) % Plt Count 202 (160-400) X10*3/uL BMP 06/01/24 05:09 Sodium 140 Potassium 4.5 Chloride 109 H Carbon Dioxide 23 BUN 21 H Creatinine 1.41 H Calcium 9.1 Microbiology Microbiology Results: Microbiology 05/31/24 13:22 Blood - Venous Blood Culture - Preliminary No growth after 24 hours. 05/31/24 13:22 Blood - Venous Blood Culture - Preliminary No growth after 24 hours. 05/31/24 Unknown Urine clean catch - Clean Catch Midstream Urine Culture - Preliminary Gram negative marianela Assessment and Plan (1) Vulvovaginitis: Status: Acute Plan prior iliopsoas abscess no urinary infection signs just the culture,will show bacteria coloinzed yeast infection kirit area irritated Stop antibiotics diflucan prn
[2024-06-01 19:36] VITALS: BP 111/56; PULSE 79; RESP 17; TEMP 36; O2SAT 98
[2024-06-01 20:33] LABS: Glucose, Whole Blood 154 mg/dL (60-115)
[2024-06-01] MEDS: Insulin Lispro 100 UNIT/ML 3 ML VIAL SUBCUT (20:37)
[2024-06-02 03:35] VITALS: BP 119/59; PULSE 69; RESP 18; TEMP 37; O2SAT 99
[2024-06-02] MEDS: Levothyroxine Sodium 112 MCG TABLET PO (05:41)
[2024-06-02 05:59] LABS: Hematocrit 31.1 % (37.0-47.0); Hemoglobin 9.9 g/dl (12.0-16.0); Mean Corpuscular HGB Conc 31.8 g/dl (31.0-35.0); Mean Corpuscular Hemoglobin 27.3 pg (27.0-33.0); Mean Corpuscular Volume 85.7 fL (80.0-98.0); Mean Platelet Volume 9.8 fL (9.4-12.3); Platelet Count 201 X10*3/uL (160-400); Red Blood Count 3.63 X10*6/uL (4.20-5.50); Red Cell Distribution Width 18.3 % (11.0-16.0); White Blood Count 7.5 X10*3/uL (4.8-10.8)
[2024-06-02 06:11] LABS: Anion Gap 12 (12-20); Blood Urea Nitrogen 26 mg/dL (9-16); Calcium 9.2 mg/dL (8.4-10.2); Carbon Dioxide 23 mmol/L (22-29); Chloride 107 mmol/L (96-108); Creatinine Clr Calc Pharmacy 33.9; Estimated Glomerular Filt Rate 36; Glucose Random 118 mg/dL (60-115); Potassium 4.4 mmol/L (3.3-5.1); Sodium 138 mmol/L (135-145)
[2024-06-02 07:35] VITALS: BP 95/47; PULSE 73; RESP 16; TEMP 36; O2SAT 98
[2024-06-02 07:41] LABS: Glucose, Whole Blood 117 mg/dL (60-115)
[2024-06-02] MEDS: Pyridoxine HCl (Vitamin B6) 50 MG TABLET 100 MG PO (07:55)
[2024-06-02] MEDS: Atorvastatin Calcium 10 MG TABLET PO (07:55)
[2024-06-02] MEDS: 0.9 % Sodium Chloride Flush 3 ML SYRINGE IVFLUSH (07:55)
[2024-06-02] MEDS: Enoxaparin Sodium 40 MG/0.4 ML SYRINGE SUBCUT (07:55)
[2024-06-02] MEDS: Cholecalciferol (Vitamin D3) 25 MCG TABLET 50 MCG PO (07:55)
[2024-06-02] MEDS: Betamethasone Dip Aug 0.05% Cr 15 GM TUBE 1 APPL TOPICAL (07:56)
--- NOTE | 2024-06-02 10:08 | PM.DS ---
DS: Providers Provider Date of Service: 06/02/24 Date of admission: 05/31/24 17:20 Date of discharge: 06/02/24 Primary care physician: Ap Deal MD Consults: 05/31/24 17:18 Consult to Infectious Diseases Routine Consulting Provider: [facility] Reason for consultation: mdr uti Consult to Urology Routine Consulting Provider: [facility] Urology Services Reason for consultation: uti, old stent DS: Diagnosis Discharge Diagnosis (1) Vulvovaginitis: Status: Acute DS: Summary Hospital Course Hospital Course: from initial hpi: 79F PMH DM, hypertension, hyperlipidemia, hypothyroid, obesity, sigmoid stricture status post Vicki procedure and reversal, iliopsoas abscess, atrophic vaginitis presented with vaginal burning. Patient states symptoms have been ongoing for the past 2 months. Was diagnosed with urinary tract infection treated with cefuroxime, however, culture from 05/17/2024 was resistant. Was also seen by Gynecology on 05/29/2024 and diagnosed with atrophic vaginitis and prescribed terazosin Lotrisone but has not started yet. Patient also reports suprapubic discomfort. Denies fever or chills. CT abdomen showed persistent versus recurrent inflammation involving a short segment of sigmoid colon in the region of the rectosigmoid anastomosis, right nephroureteral stent in place with nonobstructing stones, cirrhotic morphology of liver with mild splenomegaly. hospital course: Patient was admitted for vaginal burning which was due to atrophic vaginitis. 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 For multidrug resistant bacteriuria and possible acute diverticulitis was treated with IV meropenem was seen by infectious disease who felt that this was not active infection and recommended holding off on antibiotics. Patient will follow up outpatient with Urology for evaluation of old nephro ureteral stent. For cirrhotic morphology found on liver this is likely due to REAL patient appears fully compensated. For diabetes was continued on insulin sliding scale. For obesity weight loss recommended. Patient is feeling better will be discharged home. Time Attestation Discharge Coordination Time (in mins): 32 Quality: Safe Use of Opioids Does Pt have an Active Cancer Diagnosis on the Problem List?: No Quality: Stroke Does the patient have a stroke diagnosis?: No Physical Exam Vital Signs: Vital Signs: Last Vital Signs Temp 96.8 F 06/02/24 07:35 Pulse 73 06/02/24 07:35 Resp 16 06/02/24 07:35 BP 95/47 L 06/02/24 07:35 Pulse Ox 98 06/02/24 07:35 O2 Del Method Room Air 06/02/24 07:35 BMI result Body Mass Index 37.2 Const: General: cooperative HEENT: Head: Yes normal to inspection Face and sinus: Yes normal facial exam Mouth: Normal oral and palatal mucosa present Teeth and gingiva: dentition normal Eyes: General: appearance normal, both eyes and all related structures Pupils: Equal, round and reactive pupils present Resp: Effort & Inspection: normal respiratory effort Cardio: Rate: regular rate Rhythm: regular rhythm GI: Palpation (GI): Soft to palpation and nontender : General: Yes no CVA tenderness Back/Spine/Pelvis: Back: no CVA tenderness Skin: General skin exam: no rashes or lesions noted Neuro: General: moves all extremities Cranial nerves: Yes Equal, round and reactive pupils present Extrem: General: Yes normal to inspection Psych: Appearance: grossly normal DS: Data Data Completed and Pending Completed studies during hospitalization [Text1]: Procedures Bypass Descending Colon to Cutaneous, Open Approach (10/04/23) Dilation of Right Ureter with Intraluminal Device, Via Natural or Artificial Opening Endoscopic (04/25/23) Drainage of Retroperitoneum with Drainage Device, Percutaneous Approach (12/08/21) Excision of Large Intestine, Via Natural or Artificial Opening Endoscopic, Diagnostic (04/25/23) Excision of Sigmoid Colon, Open Approach (10/04/23) Excision of Small Intestine, Open Approach (02/20/24) Extirpation of Matter from Right Ureter, Via Natural or Artificial Opening Endoscopic (04/05/21) Fluoroscopy of Right Kidney, Ureter and Bladder (04/25/23) Introduction of Anesthetic Agent into Peripheral Nerves and Plexi, Percutaneous Approach (02/20/24) Release Peritoneum, Open Approach (02/20/24) Reposition Descending Colon, Open Approach (02/20/24) Labs on day of discharge: Laboratory Results - last 24 hr 06/01/24 06/01/24 06/01/24 11:34 16:27 20:27 WBC RBC Hgb Hct MCV MCH MCHC RDW Plt Count MPV Absolute Nucleated RBC Nucleated RBC % (auto) Sodium Potassium Chloride Carbon Dioxide Anion Gap BUN Creatinine Estim Creat Clear Calc Estimated GFR POC Glucose 128 H 140 H 154 H Random Glucose Calcium 06/02/24 06/02/24 05:32 07:34 WBC 7.5 RBC 3.63 L Hgb 9.9 L Hct 31.1 L MCV 85.7 MCH 27.3 MCHC 31.8 RDW 18.3 H Plt Count 201 MPV 9.8 Absolute Nucleated RBC 0.000 Nucleated RBC % (auto) 0.0 Sodium 138 Potassium 4.4 Chloride 107 Carbon Dioxide 23 Anion Gap 12 BUN 26 H Creatinine 1.41 H Estim Creat Clear Calc 33.9 Estimated GFR 36 POC Glucose 117 H Random Glucose 118 H Calcium 9.2 Preliminary micro results at discharge 05/31/24 13:22 Blood Culture - Preliminary Blood - Venous No growth after 24 hours. 05/31/24 13:22 Blood Culture - Preliminary Blood - Venous No growth after 24 hours. Discharge Plan Discharge Anticipated Discharge Date/Time: 06/02/24 10:07 Patient Disposition: Home, Self-Care Discharge Diagnosis: vulvovaginitis Referrals: Jose Reis MD [Physician] - 1 Week Ap Deal MD [Primary Care Provider] - 1 Week Discharge Medications: Continued lisinopril 10 mg tablet 10 mg PO DAILY Qty: 90 1RF (DME) Wheel chair Kit See Rx Instructions .Route Qty: 1 0RF Rx Instructions: As directed; Manual 20 inch travel wheelchair with seat cushion and foot rests; Height 5ft 1.25 inches; Weight 191 lbs; ; QUANTITY OF 1; length of need 99 levothyroxine 112 mcg tablet 224 mcg PO SUWE@0600 Qty: 90 0RF atorvastatin 10 mg tablet 10 mg PO DAILY metformin 500 mg tablet extended release 24 hr 500 mg PO DAILY@1700 furosemide 40 mg tablet 40 mg PO DAILY Qty: 30 0RF acetaminophen 500 mg Tablet 1,000 mg PO Q6H PRN (Reason: Pain) hydrocodone-acetaminophen 5-325 mg tablet 1 tab PO Q4-6H PRN (Reason: Pain (Scale Score 7-10)) Rx Instructions: Partial Fill upon patient request. levothyroxine 112 mcg tablet 112 mcg PO MOTUTHFRSA@0600 tramadol 50 mg tablet 50 mg PO DAILY PRN (Reason: Pain) pyridoxine (vitamin B6) [Vitamin B-6] 100 mg tablet 100 mg PO DAILY cholecalciferol (vitamin D3) 25 mcg (1,000 unit) capsule 50 mcg PO DAILY Discharge Orders: Discharge Order (Routine); Ordered 06/02/24 Ordered By: Reji Caceres Diet: Advance to usual diet Activity on Discharge: As tolerated Stand Alone Forms: Patient Portal Discharge page Print Language: Estonian Care Plan Goals: Recovery Health Concerns: Vulvovaginitis Plan of Treatment: Continue treatments as prescribed by Dr. Jacobsen, follow up with Urology Assessment: See above
--- NOTE | 2024-06-02 10:24 | MHC.CM.PN ---
PT DCD HOME WITH EESUMPTION OF ELBEVERLY
--- NOTE | 2024-06-02 10:27 | PC.NURSE ---
Pt discharged, wanted to stay and eat lunch, educated that she is discharged from the hospital and will facilitate her leaving [facility], her and sig other in agreement, REPAIRER EVAPORATOR to bring patient down stairs.
== END 2024-06-02 10:45 | disposition home health service (06) | DRG 392 ==
LOC: HO.ED 12:27 → HO.EDOVER 17:46 → HO.S3 06-01 00:29
PROVIDERS: Physician Assistant; Admitting Provider Internal Medicine; Emergency Provider Emergency Medicine; PCP Internal Medicine; Visit Provider Internal Medicine
DX: K57.32 Diverticulitis of large intestine without perforation or abscess without bleeding (principal); B37.49 Other urogenital candidiasis; Z16.12 Extended spectrum beta lactamase (ESBL) resistance; F32.9 Major depressive disorder, single episode, unspecified; K75.81 Nonalcoholic steatohepatitis (NASH); E66.9 Obesity, unspecified; Z68.37 Body mass index [BMI] 37.0-37.9, adult; Z71.3 Dietary counseling and surveillance; E11.9 Type 2 diabetes mellitus without complications; K74.69 Other cirrhosis of liver; N95.2 Postmenopausal atrophic vaginitis; Z87.891 Personal history of nicotine dependence; Z79.84 Long term (current) use of oral hypoglycemic drugs; Z79.890 Hormone replacement therapy; Z79.899 Other long term (current) drug therapy
CPT/HCPCS: 36415; 74177; 80048; 80053; 80076; 81001; 81515; 82947; 83735; 84425; 84590; 84630; 85025; 85027; 85652; 86140; 87040; 87086; 87088; 87186; 96127; 99212; 99285; J1650; J2185; Q9967

== ENCOUNTER → 2024-05-31 12:22 | Outpatient (BNV) | payer MEDICARE, SELFPAY | PROVIDERS: Emergency Provider Emergency Medicine; PCP Internal Medicine; Visit Provider Internal Medicine | DX: N90.89 Other specified noninflammatory disorders of vulva and perineum (principal); Z16.24 Resistance to multiple antibiotics; N39.0 Urinary tract infection, site not specified; F32.0 Major depressive disorder, single episode, mild | CPT/HCPCS: 99223 ==

== ENCOUNTER → 2024-05-31 13:41 | Outpatient (BNV) | payer MEDICARE, SELFPAY | PROVIDERS: Emergency Provider Emergency Medicine; PCP Internal Medicine; Visit Provider Radiology Diagnostic Radiology | DX: M54.50 Low back pain, unspecified (principal); R10.9 Unspecified abdominal pain | CPT/HCPCS: 74177 ==

== ENCOUNTER → 2024-05-31 17:20 | Outpatient (BNV) | payer MEDICARE, SELFPAY | PROVIDERS: Admitting Provider Internal Medicine; Emergency Provider Emergency Medicine; PCP Internal Medicine; Visit Provider Internal Medicine | DX: N76.0 Acute vaginitis (principal) | CPT/HCPCS: 99222 ==

== ENCOUNTER 2024-06-05 22:38 | Inpatient (IN) | payer MEDICARE, SELFPAY ==
--- NOTE | ~2024-06-05 | CT_ITS ---
CLINICAL HISTORY: LGIB --- Additional Notes or Special Instructions: cant have contrast due to DM and FELICITA CT abdomen and pelvis without contrast Comparison: 05/31/2024 Findings: The lung bases are clear. Moderate pancreatic atrophy. Redemonstration of cirrhotic hepatic morphology. Distended gallbladder with gallstones. Correlate clinically for presence or absence of right upper quadrant pain/possible acute cholecystitis. No significant change in position of right-sided double-J stent. Right more than left nonobstructive renal stones. A few simple right renal cysts. Partial sigmoid colonic resection as before. No significant change in kqux-eg-phngqkvz fat stranding in the vicinity of the sigmoid colon anastomosis. Finding may be seen with nonspecific colitis or uncomplicated diverticulitis (diverticular like outpouching is seen at level of the sigmoid anastomosis). Large broad-based uncomplicated midline ventral abdominal wall hernia containing nonobstructed bowel loops (there is an enteroenteric anastomosis of the level). Nonprogressive left ventral abdominal wall irregular subcutaneous fluid collection measuring up to 22 x 48 mm in the axial plane versus 20 x 54 mm previously with neighboring nonprogressive uvka-ny-aunqxvbw fat stranding and minimal skin thickening (finding may be due to a nonspecific postoperative fluid collection versus abscess). Correlate clinically. No bowel obstruction. Hysterectomy. No acute fracture. Spinal degenerative changes. L2 vertebral body hemangioma. Coarse osseous spinal trabeculations likely due to underlying chronic kidney disease. Atherosclerotic calcifications. Rest of the abdominopelvic viscera are unremarkable. IMPRESSION: 1. Distended gallbladder with gallstones. Correlate clinically for presence or absence of right upper quadrant pain/possible acute cholecystitis. 2. Partial sigmoid colonic resection as before. No significant change in ilmc-hp-lqlseclw fat stranding in the vicinity of the sigmoid colon anastomosis. Finding may be seen with nonspecific colitis or uncomplicated diverticulitis (diverticular like outpouching is seen at level of the sigmoid anastomosis). 3. Nonprogressive left ventral abdominal wall irregular subcutaneous fluid collection with neighboring nonprogressive rlfr-pw-gexaghjy fat stranding and minimal skin thickening (finding may be due to a nonspecific postoperative fluid collection versus abscess). Correlate clinically. This document has been electronically signed by: Serina Escamilla MD on 06/06/2024 06:59:13
[2024-06-05 22:40] VITALS: BP 124/42; PULSE 79; RESP 20; TEMP 36.2; O2SAT 99; BMI 37.2
[2024-06-05 23:02] LABS: MANUAL DIFF FLAG NO
[2024-06-05 23:04] LABS: Basophils Absolute Auto 0.1 X10*3/uL (0.0-0.2); Basophils Percent Auto 0.3 % (0-2); Eosinophils Absolute Auto 0.1 X10*3/uL (0.0-0.4); Eosinophils Percent Auto 0.7 % (0-4); Hematocrit 34.2 % (37.0-47.0); Hemoglobin 10.8 g/dl (12.0-16.0); Imm Gran Abs Auto 0.13 X10*3/uL (0.00-0.03); Imm Gran Pct Auto 0.9 % (0.0-0.4); Lymphocytes Absolute Auto 2.5 X10*3/uL (1.2-4.9); Lymphocytes Percent Auto 17.1 % (20-40); Mean Corpuscular HGB Conc 31.6 g/dl (31.0-35.0); Mean Corpuscular Hemoglobin 26.8 pg (27.0-33.0); Mean Corpuscular Volume 84.9 fL (80.0-98.0); Mean Platelet Volume 9.4 fL (9.4-12.3); Monocytes Percent Auto 6.7 % (2-11); Neutrophils Absolute Auto 10.9 x10*3/uL (2.0-8.3); Neutrophils Percent Auto 74.3 % (45-73); Platelet Count 270 X10*3/uL (160-400); Red Blood Count 4.03 X10*6/uL (4.20-5.50); Red Cell Distribution Width 18.1 % (11.0-16.0); White Blood Count 14.7 X10*3/uL (4.8-10.8)
[2024-06-05 23:19] LABS: Alanine Aminotransferase 35 U/L (0-31); Albumin Level 3.7 g/dL (3.5-5.0); Alkaline Phosphatase 68 U/L (39-117); Anion Gap 14 (12-20); Aspartate Amino Transferase 43 U/L (5-31); Bilirubin Total 0.3 mg/dL (0.0-1.0); Blood Urea Nitrogen 26 mg/dL (9-16); Calcium 9.5 mg/dL (8.4-10.2); Carbon Dioxide 21 mmol/L (22-29); Chloride 108 mmol/L (96-108); Creatinine Clr Calc Pharmacy 32.6; Estimated Glomerular Filt Rate 34; Glucose Random 136 mg/dL (60-115); Potassium 4.4 mmol/L (3.3-5.1); Sodium 139 mmol/L (135-145); Total Protein 7.6 g/dL (6.5-8.0)
[2024-06-05 23:28] VITALS: BP 122/51; PULSE 69; RESP 20; TEMP 36.5; O2SAT 100
--- OUTSIDE RECORDS SUMMARY | 2024-06-06 00:07 | XMS_ITS | Patient Health Record ---
[facility] Address [address] [place] [address] Care Team Providers Care Blade Changer Name Role Phone Preston Wang MD Primary Care Provider Unavail able Lucy Castro Unavailable [phone] Allergies Allergen (clinical drug ingredient) Drug/Non Drug [...] Problem Status W/U Status Risk Notes Problem 140481365 Hammer toe of le ft foot (M20.42) Active confirmed Problem 587315782 Neuropathy (G62.9) Active confirmed Problem [id number] Atherosclerosi s of artery of both lower extremities (I70.203) Active confirmed Encounters Encounter Location Date Provider Diagnosis [facility] [address] [place] [address] 06/28/2023 Lucy Castro Plan Of Treatment Pending Test Test Name Order Date X ray : Foot, left 3V 08/20/2022 X ray : Foot, left 3V 09/10/2022 X ray : Foot, left 3V 10/08/2022 [id number] NAIL, 1-5 12/21/2017 [id number] DYSTROPHIC NAILS ANY # Insurance Providers Payer Name Payer Address Payer Phone Subscriber Number Group Number Insured Name Patient Relationship to Insured Coverage Start Date Coverage End Date Medicare National Govt Svcs Inc [address] [facility] [address] [id number] Xi Garrison Self - patient is the insured 3 [employer] Blue Shield [address] [place] [address] [phone] [id number] 1 Xi Garrison Self - patient is [...]
--- OUTSIDE RECORDS SUMMARY | 2024-06-06 00:07 | XMS_ITS | Clinical Summary ---
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
--- OUTSIDE RECORDS SUMMARY | 2024-06-06 00:07 | XMS_ITS | Clinical Summary ---
Author Organization Unknown Care Team Providers Care Automobile Wrecker Name Role Phone VLAD SERNA, BEAR Unavailable Unavailab ab KOCH RN, ABIEL Unavailable Unavailable JERROD RN, ADMISSION NURSE, MALIKA Unavail able Unavailable ANABELLA RN, SHAYY Unavailable Unavailable Payers Payer Name Policy Type Policy Number Effective Date Expira tion Date [id number] [id number] Problems Condition Name Condition Details Condition Category [...] 10 mg tablet 2023-02 00:00: 00 Yes [id number] 1 tablet DAILY 1 tablet DAILY (route: oral) Med Classific ation: Cardiovas cular Therapy Agents B-complex with vitamin C 400 mcg-500 mg tablet 2023-02 00:00: 00 Yes [id number] 1 tablet DAILY 1 tablet DAILY (route: oral) Med Classific ation: Electroly te Balance-N utritiona l Products clindamycin HCl 300 mg capsule -20 00:00: 00 11-10 23:59 :00 No [id number] 1 capsule EVERY 6 HOURS 1 capsule EVERY 6 HOURS (route: oral) Med Classific ation: Anti-Infe ctive Agents furosemide 40 mg tablet 2023-02 00:00: 00 Yes [id number] 1 tablet DAILY 1 tablet DAILY (route: oral) Med Classific ation: Cardiovas cular Therapy Agents levothyroxi ne 112 mcg tablet 2023-02 00:00: 00 04-25 23:59 :00 No [id number] 1 tablet DAILY 1 tablet DAILY (route: oral) Med Classific ation: Endocrine metformin 500 mg tablet 2023-02 00:00: 00 Yes [id number] 1 tablet DAILY 1 tablet DAILY (route: oral) Med Classific ation: Endocrine Probiotic Acidophilus 250 million cell capsule 2023-02 00:00: 00 Yes [id number] 1 capsule DAILY 1 capsule DAILY (route: oral) Med Classific ation: Gastroint estinal Therapy Agents tramadol 50 mg tablet 2023-02 00:00: 00 Yes [id number] 1 tablet 3 TIMES DAILY 1 tablet 3 TIMES DAILY (route: oral) Med Classific ation: Analgesic , Anti-infl ammatory or Antipyret ic Vitamin D3 25 mcg (1,000 unit) capsule 2023-02 00:00: 00 Yes [id number] 2 capsule DAILY 2 capsule DAILY (route: oral) Med Classific ation: Electroly te Balance-N utritiona l Products acetaminoph en 500 mg tablet 04-02 00:00: 00 Yes [id number] 2 tablet EVERY 6 HOURS 2 tablet EVERY 6 HOURS (route: oral) Med Classific ation: Analgesic , Anti-infl ammatory or Antipyret ic hydrocodone 5 mg-acetamin ophen 325 mg tablet 04-02 00:00: 00 Yes [id number] 1 tablet EVERY 4 HOURS 1 tablet EVERY 4 HOURS (route: oral) Med Classific ation: Analgesic , Anti-infl ammatory or Antipyret ic levothyroxi ne 112 mcg tablet 04-02 00:00: 00 Yes [id number] 2 tablet DAILY 2 tablet DAILY (route: oral) Med Classific ation: Endocrine levothyroxi ne 112 mcg tablet 04-02 00:00: 00 Yes [id number] 1 tablet DAILY 1 tablet DAILY (route: [...] MAINTAIN SITUATIONAL AWARENESS AND WILL NOTIFY CLINICAL GREASE MAN AND PHYSICIAN/PROVIDER WITH ANY CHANGE IN CONDITION. [code = SKILLED NURSE TO PERFORM ENVIRONMENTAL SAFETY RISK ASSESSMENT AND FALL RISK ASSESSMENT AND PROVIDE INSTRUCTION TO IMPLEMENT ENVIRONMENTAL SAFETY AND FALL PREVENTION STRATEGIES THROUGHOUT THE CERTIFICATION PERIOD. SKILLED NURSE WILL MAINTAIN SITUATIONAL AWARENESS AND WILL NOTIFY CLINICAL GREASE MAN AND PHYSICIAN/PROVIDER WITH ANY CHANGE IN CONDITION.] [...] CARE WILL BE ESTABLISHED THAT MEETS PATIENT'S JAIL NEEDS AND INCLUDES PATIENT GOAL FOR HOME [...] BY THE END OF THE CERTIFICATION PERIOD. Encounters Start Date/Time End Date/Time Encounter Type Admission Type Attending [facility] Care Facility Care Department Encounter ID Discharge Date Discharge Status Discharge Condition Discharge Reason Percent Goals Met 2023-11-09 00:00:00 2024-07-05 00:00:00 Outpatient RECERTIFIC ATION SHAYY KYLE [facility] [id number] 36.36
--- OUTSIDE RECORDS SUMMARY | 2024-06-06 00:07 | XMS_ITS ---
Author Organization [facility] Address [address] [place] [address] Care Team Providers Care Fire Hydrant Operator Name Role Phone Felipe SERNA, Preston Primary Care Provider Unavail able Lucy Castro Unavailable [phone] Encounters Encounter Location Date Provider Diagnosis [facility] [address] [place] [address] 06/28/2023 Lucy Castro Plan Of Treatment No Information Progress Notes * Casimiro DOANineDOB: 8 (79 yo F)Acc No.[id number]:06/28/2023 Progress Note Patient:?Xi DOAN Provider:?Lucy Castro DPM :1945???Age:78 Y???Sex:Female D ate:06/28/2023 Address[address] [place], [place] [address] [place] Pcp:Preston Wang MD Subjective: * Chief Complaints: [...] Castro DPM Date:? Generated for Printi ng/Faxing/eTransmitting on:?06/06/2024 12:07 AM EDT
--- OUTSIDE RECORDS SUMMARY | 2024-06-06 00:07 | XMS_ITS | Clinical Summary ---
Author Organization Unknown Care Team Providers Care Marine Railway Operator Name Role Phone VLAD SERNA, BEAR Unavailable Unavailab ab KOCH RN, ABIEL Unavailable Unavailable JERROD RN, ADMISSION NURSE, MALIKA Unavail able Unavailable ANABELLA RN, SHAYY Unavailable Unavailable Payers Payer Name Policy Type Policy Number Effective Date Expira tion Date MEDICARE - [facility] [id number] [facility] [id number] Problems Condition Name Condition Details Condition Category [...] DISEASE WITHOUT ESOPHAGITIS Active 02-07 00:00: 00 USP (CURRENT) USE OF ORAL HYPOGLYCEMIC DRUGS Active [...] 10 mg tablet 2023-02 00:00: 00 Yes [id number] 1 tablet DAILY 1 tablet DAILY (route: oral) Med Classific ation: Cardiovas cular Therapy Agents B-complex with vitamin C 400 mcg-500 mg tablet 2023-02 00:00: 00 Yes [id number] 1 tablet DAILY 1 tablet DAILY (route: oral) Med Classific ation: Electroly te Balance-N utritiona l Products clindamycin HCl 300 mg capsule -20 00:00: 00 11-10 23:59 :00 No [id number] 1 capsule EVERY 6 HOURS 1 capsule EVERY 6 HOURS (route: oral) Med Classific ation: Anti-Infe ctive Agents furosemide 40 mg tablet 2023-02 00:00: 00 Yes [id number] 1 tablet DAILY 1 tablet DAILY (route: oral) Med Classific ation: Cardiovas cular Therapy Agents levothyroxi ne 112 mcg tablet 2023-02 00:00: 00 04-25 23:59 :00 No [id number] 1 tablet DAILY 1 tablet DAILY (route: oral) Med Classific ation: Endocrine metformin 500 mg tablet 2023-02 00:00: 00 Yes [id number] 1 tablet DAILY 1 tablet DAILY (route: oral) Med Classific ation: Endocrine Probiotic Acidophilus 250 million cell capsule 2023-02 00:00: 00 Yes [id number] 1 capsule DAILY 1 capsule DAILY (route: oral) Med Classific ation: Gastroint estinal Therapy Agents tramadol 50 mg tablet 2023-02 00:00: 00 Yes [id number] 1 tablet 3 TIMES DAILY 1 tablet 3 TIMES DAILY (route: oral) Med Classific ation: Analgesic , Anti-infl ammatory or Antipyret ic Vitamin D3 25 mcg (1,000 unit) capsule 2023-02 00:00: 00 Yes [id number] 2 capsule DAILY 2 capsule DAILY (route: oral) Med Classific ation: Electroly te Balance-N utritiona l Products acetaminoph en 500 mg tablet 04-02 00:00: 00 Yes [id number] 2 tablet EVERY 6 HOURS 2 tablet EVERY 6 HOURS (route: oral) Med Classific ation: Analgesic , Anti-infl ammatory or Antipyret ic hydrocodone 5 mg-acetamin ophen 325 mg tablet 04-02 00:00: 00 Yes [id number] 1 tablet EVERY 4 HOURS 1 tablet EVERY 4 HOURS (route: oral) Med Classific ation: Analgesic , Anti-infl ammatory or Antipyret ic levothyroxi ne 112 mcg tablet 04-02 00:00: 00 Yes [id number] 2 tablet DAILY 2 tablet DAILY (route: oral) Med Classific ation: Endocrine levothyroxi ne 112 mcg tablet 04-02 00:00: 00 Yes [id number] 1 tablet DAILY 1 tablet DAILY (route: [...] MAINTAIN SITUATIONAL AWARENESS AND WILL NOTIFY CLINICAL HEAD OF MATHEMATICS AND PHYSICIAN/PROVIDER WITH ANY CHANGE IN CONDITION. [code = SKILLED NURSE TO PERFORM ENVIRONMENTAL SAFETY RISK ASSESSMENT AND FALL RISK ASSESSMENT AND PROVIDE INSTRUCTION TO IMPLEMENT ENVIRONMENTAL SAFETY AND FALL PREVENTION STRATEGIES THROUGHOUT THE CERTIFICATION PERIOD. SKILLED NURSE WILL MAINTAIN SITUATIONAL AWARENESS AND WILL NOTIFY CLINICAL HEAD OF MATHEMATICS AND PHYSICIAN/PROVIDER WITH ANY CHANGE IN CONDITION.] [...] CARE WILL BE ESTABLISHED THAT MEETS PATIENT'S CORRECTION NEEDS AND INCLUDES PATIENT GOAL FOR HOME [...] End Date/Time Encounter Type Admission Type Attending [facility] Care Facility Care Department Encounter ID Discharge Date Discharge Status Discharge Condition Discharge Reason Percent Goals Met 2023-11-09 00:00:00 2024-07-05 00:00:00 Outpatient RECERTIFIC ATION SHAYY KYLE [facility] [id number] 36.36
[2024-06-06 01:36] LABS: Hematocrit 33.5 % (37.0-47.0); Hemoglobin 10.9 g/dl (12.0-16.0)
[2024-06-06 01:55] LABS: OBS Int Ctl Valid YES
[2024-06-06 01:56] LABS: OBS1 POSITIVE (NEGATIVE)
[2024-06-06 01:58] LABS: Appearance Urine Turbid; Color Urine Yellow; Glucose Urine UA Negative (Negative); Leukocyte Esterase Urine Large (3+) (Negative); Nitrite Urine Positive (Negative); Specific Gravity - Urine 1.015 (1.005-1.025); UMIC TRIGGER UACC YES; Urine Blood Moderate (2+) (Negative); Urine Ketones Trace mg/dL (Negative); Urine Protein 100 (2+) mg/dL (Neg-Trace)
[2024-06-06 02:03] LABS: Bacteria Urine 4+ (None Seen); RBC Urine >20 /HPF (0-2); UACC Culture Trigger YES; WBC Urine >50 /HPF (0-5)
--- NOTE | 2024-06-06 02:15 | PC.NURSE ---
Patient taken to CT.
[2024-06-06] MEDS: 0.9 % Sodium Chloride 1,000 ML 999 ML IV (02:17)
--- NOTE | 2024-06-06 02:22 | PC.NURSE ---
Patient back to her room from CT, reporting pain in lower abdomen increased and 8/10 at present. ED provider Avery notified.
[2024-06-06] MEDS: ondansetron HCL 4 MG/2 ML VIAL IVPUSH (02:27)
[2024-06-06 02:28] VITALS: RESP 15
[2024-06-06] MEDS: Morphine Sulfate 4 MG/ML CARTRIDGE IVPUSH ×4 (02:28→20:06)
--- NOTE | 2024-06-06 02:28 | PC.NURSE ---
Patient medicated per APR for 8/10 pain in lower abdomen.
--- NOTE | 2024-06-06 02:57 | ED_ITS ---
HPI - General Adult General Chief complaint: GI Bleed Stated complaint: Blood in stool Time Seen by Provider: 06/06/24 01:16 Source: patient Limitations: no limitations History of Present Illness ED Provider: Tyra Varela PA-C HPI narrative: 79-year-old female with hx of HLD HTN, hypothyroidism, [id number] type 2 diabetes, and hx of sigmoid stricture s/p Vicki procedure (10/06/23) with recent colostomy reversal (02/25/24), with iliopsosas abscess, atrophic vaginitis, recent admission for IV antibiotics due to drug resistant Klebsiella UTI and allergy to ciprofloxacin, presents with LGIB since earlier today. Patient states she has had 4 episodes of large volume bloody diarrhea. Associated lower abdominal discomfort. Denies nausea vomiting fever. Related Data Home Medications ?Medication ?Instructions ?Recorded ?Confirmed atorvastatin 10 mg tablet 10 mg PO DAILY 04/05/21 06/06/24 metformin 500 mg tablet,extended 500 mg PO DAILY@1700 04/06/21 06/06/24 release 24 hr acetaminophen 500 mg tablet 1,000 mg PO Q6H PRN Pain 10/04/23 06/06/24 hydrocodone 5 mg-acetaminophen 325 1 tab PO Q4-6H PRN Pain (Scale 03/29/24 06/06/24 mg tablet Score 7-10) pyridoxine (vitamin B6) 100 mg 100 mg PO DAILY 04/11/24 06/06/24 tablet (Vitamin B-6) tramadol 50 mg tablet 50 mg PO DAILY PRN Pain 04/11/24 06/06/24 cholecalciferol (vitamin D3) 25 50 mcg PO DAILY 05/19/24 06/06/24 mcg (1,000 unit) capsule levothyroxine 112 mcg tablet 112 mcg PO MOTUTHFRSA@0600 05/31/24 06/06/24 Previous Rx's ?Medication ?Instructions ?Recorded furosemide 40 mg tablet 40 mg PO DAILY #30 tabs 12/16/21 lisinopril 10 mg tablet 10 mg PO DAILY #90 tabs 03/12/24 chair, wheel (Wheel chair) #1 ea 04/16/24 levothyroxine 112 mcg tablet 224 mcg (2 x 112 mcg) PO SUWE@0600 05/25/24 #90 tabs Allergies Allergy/AdvReac Type Severity Reaction Status Date / Time chlorpheniramine Allergy Severe HALLUCINATI Verified 06/05/24 22:41 [From TUSSIONEX] ONS ciprofloxacin [From CIPRO] Allergy Severe ANAPHYLAXIS Verified 06/05/24 22:41 escitalopram [ESCITALOPRAM] Allergy Severe DISSOCIATIVE Verified 06/05/24 22:41 REACTION fluoxetine [FLUOXETINE] Allergy Severe DISSOCIATIVE Verified 06/05/24 22:41 REACTION hydrocodone [From TUSSIONEX] Allergy Severe HALLUCINATI Verified 06/05/24 22:41 ONS ibuprofen [IBUPROFEN] Allergy Severe THROAT Verified 06/05/24 22:41 SWELLING Sulfa (Sulfonamide Allergy Severe DYSPNEA Verified 06/05/24 22:41 Antibiotics) [SULFA (SULFONAMIDE ANTIBIOTICS)] clarithromycin [From BIAXIN] Allergy Intermediate ABD.PAIN Verified 06/05/24 22:41 duloxetine [DULOXETINE] Allergy Intermediate FACIAL Verified 06/05/24 22:41 NUMBNESS erythromycin base Allergy Intermediate RASH Verified 06/05/24 22:41 [ERYTHROMYCIN BASE] Penicillins [PENICILLINS] Allergy Intermediate RASH Verified 06/05/24 22:41 tetracycline [TETRACYCLINE] Allergy Intermediate DIARRHEA Verified 06/05/24 22:41 codeine [CODEINE] Allergy Unknown TINNITIS Verified 06/05/24 22:41 guaifenesin Allergy Unknown Unknown Verified 06/05/24 22:41 levofloxacin [From Levaquin] Allergy Unknown Unknown Verified 06/05/24 22:41 pregabalin Allergy Unknown Unknown Verified 06/05/24 22:41 Review of Systems 2 Review of Systems: Yes all other systems are reviewed and are negative Constitutional: Constitutional: Denies fatigue and Denies fever(s) Cardiovascular: Cardiovascular: Denies chest pain and Denies dyspnea Respiratory: Respiratory: Denies cough and Denies dyspnea Gastrointestinal: Gastrointestinal: Reports abdominal pain, Reports hematochezia, Reports diarrhea, Denies nausea and Denies vomiting Genitourinary: Genitourinary: Reports dysuria Endocrine: Endocrine: Denies fatigue PMFSH Past Medical History Attestation statement: The following information was validated with the patient. Medical History Blood per rectum Dysuria Abscess Hospital discharge follow-up Generalized abdominal pain Encounter for wheelchair assessment Diverticular disease Major depressive disorder Heel spur Chronic low back pain Uterine cancer Hyperthyroidism Weakness of both lower extremities Hydroureteronephrosis Wound infection Open wound of back, complicated Cellulitis Frequency of urination Vaginal burning Vaginal itching PMB (postmenopausal bleeding) Cirrhosis of liver Does mobilize using walker PONV (postoperative nausea and vomiting) Left foot drop Fatty liver Fibromyalgia Neuropathy RBBB Cholelithiasis Staghorn calculus Renal calculus, bilateral Renal calyceal dilation determined by ultrasound UTI (urinary tract infection) Diabetes mellitus, type II Ganglion cyst Plantar fasciitis Anxiety OA (osteoarthritis) Obstructive airway disease Hypercholesterolemia Low back pain Sciatica Hypothyroidism HTN (hypertension) Primary osteoarthritis of right knee Retained ureteral stent Renal stones Staghorn calculus Perirectal abscess Surgical History History of colostomy reversal (02/20/24) History of colectomy (~10/06/23) Status post cystoscopy with ureteral stent placement History of lumbar discectomy History of lumpectomy of both breasts History of cystoscopy History of lithotripsy Hx of colonoscopy (~04/28/23) History of surgery Family History Family History Father Alcohol dependence Mother CHF (congestive heart failure) Cancer of breast Mother No problems noted. Other Alcoholic cirrhosis Substance use disorder Social History Social History Household Members: Significant Other Housing: House Are you a primary care program director to a significant other at home: No Do you presently have visiting nurse or other home services: Yes (vna) Alcohol intake: current Alcohol intake frequency: does not drink Alcohol type: hard liquor Comment: wheelchair for long distances Patient Tobacco Use Status: Former Tobacco user Tobacco use type: Cigarette Years Smoked: 27 Smoked in Last 30 Days: No e-Cigarette/Vaping Use: Never Used Second Hand Smoke Exposure: Yes Use of substances other than those prescribed or required for medical reasons: No Currently Displaying Signs/Symptoms of Drug Intoxication Withdrawal: No Have you been hit, kicked, punched, or otherwise hurt by someone within the past year? If so, by whom?: No Do you feel safe in your current relationship?: Yes Is there a partner from a previous relationship who is making you feel unsafe now?: No Are you made to feel afraid or neglected: No Advance Directives: Yes Advance Directives on File: Yes Advance Directives Date on File: 04/06/21 Do you have a plan to hurt others: No Plan Recently lost weight without trying: No Eating poorly because of decreased appetite: No Nutrition Risks: No Nutritional Risk Patient : No : No Poor oral hygiene: No service: No Current occupational status: disabled Cognitive needs: Yes (wheelchair) Hearing needs: No Vision needs: Yes (Glasses) Physical Exam ED Vital Signs: Vital Signs - 24 hr 06/05/24 22:40 06/05/24 23:28 06/06/24 02:28 Temperature 97.2 F 97.7 F Pulse Rate 79 69 Respiratory Rate 20 20 15 Blood Pressure 124/42 L 122/51 L Pulse Oximetry 99 100 Oxygen Delivery Method Room Air Room Air 06/06/24 03:38 Temperature 97.9 F Pulse Rate 71 Respiratory Rate 16 Blood Pressure 125/56 L Pulse Oximetry 100 Oxygen Delivery Method Room Air BMI result Body Mass Index 37.2 Const Other: Alert Orientation/consciousness: patient oriented x3 Resp Effort & Inspection: normal respiratory effort Cardio Other: Normal peripheral perfusion GI Other: Abdomen is soft, nondistended, obese, moderate to severe tenderness across lower abdomen with involuntary guarding Skin Other: Warm dry no rash Neuro General: patient oriented x3, gait normal, no focal motor deficits and CN's II- XI intact bilaterally Psych Other: Cooperative Course Course Course Narrative: Signed out to night team pending imaging and admission. Medications Administered Generic Name Dose Route Start Last Admin Trade Name Freq PRN Reason Stop Dose Admin Insulin Human Lispro 0 unit 06/06/24 16:30 06/06/24 16:18 Insulin Lispro 100 Unit/Ml 3 Ml Vial SUBCUT Not [facility] Protocol Morphine Sulfate 4 mg 06/06/24 11:30 06/06/24 13:48 Morphine Sulfate 4 Mg/Ml Cartridge IVPUSH 4 mg Q4H PRN Administration Pain, Severe (Pain Scale 7-10) Protocol Sodium Chloride 3 ml 06/06/24 16:00 06/06/24 15:41 0.9 % Sodium Chloride Flush 3 Ml Syringe IVFLUSH 3 ml QSNYFT [facility] Administration Discontinued Medications Generic Name Dose Route Start Last Admin Trade Name Freq PRN Reason Stop Dose Admin Sodium Chloride 1,000 mls @ 999 mls/hr 06/06/24 02:00 06/06/24 03:20 Ns IV 06/06/24 03:00 Infused .Q1H1M NOHELIA Infusion Meropenem 1 gm 06/06/24 04:05 06/06/24 04:32 Meropenem 1 Gm Vial IVPUSH 06/06/24 04:06 1 gm ONCE ONE Administration Morphine Sulfate 4 mg 06/06/24 02:21 06/06/24 02:28 Morphine Sulfate 4 Mg/Ml Cartridge IVPUSH 06/06/24 02:22 4 mg ONCE ONE Administration Protocol Morphine Sulfate 4 mg 06/06/24 07:23 06/06/24 07:31 Morphine Sulfate 4 Mg/Ml Cartridge IVPUSH 06/06/24 07:24 4 mg ONCE STA Administration Protocol Ondansetron HCl 4 mg 06/06/24 02:21 06/06/24 02:27 Ondansetron Hcl 4 Mg/2 Ml Vial IVPUSH 06/06/24 02:22 4 mg ONCE ONE Administration Medical Decision Making Medical Decision Making MDM Narrative: 79-year-old female with hx of HLD HTN, hypothyroidism, [id number] type 2 diabetes, and hx of sigmoid stricture s/p Vicki procedure (10/06/23) with recent colostomy reversal (02/25/24), with iliopsosas abscess, atrophic vaginitis, recent admission for IV antibiotics due to drug resistant Klebsiella UTI and allergy to ciprofloxacin, presents with LGIB since earlier today. Patient states she has had 4 episodes of large volume bloody diarrhea. Associated lower abdominal discomfort. Denies nausea vomiting fever. Problem: Age, recent admission with antibiotics, diabetes, History: Per patient I have considered the following differential diagnoses: Lower GI bleed, C.diff Plan: Patient has a objective evidence of lower GI bleeding, we will be obtaining a CT scan. Screening labs were already obtained from triage, we will be adding on a urinalysis, and repeating her H&H. Obtain a guaiac as well. Giving IV fluid and morphine for her pain. She has a risk factors for C diff, adding on a C diff PCR. I have independently reviewed the following tests: Labs: Leukocytosis with left shift, not anemic, repeat H&H essentially the same, slight elevation in renal function from baseline, today is 1.47, no other electrolyte abnormality, worsening urinary tract infection noted, guaiac positive I reviewed her recent urine culture from her hospital admission on May 31, she is susceptible to ertapenem, however given her extensive allergy profile, there was crossed reactivity with penicillins, during her prior admission the use Meropenem, we will add blood cultures and a lactic prior to administering antibiotics. 06/06/2024 at 08:17 hours,Dr. Laurent Fuller's note: I assumed care of this patient from my colleague, Yen Varela at 04:[address] scan of the abdomen pelvis. The CT scan did reveal a distended gallbladder with gallstones. Patient had mild to moderate fat stranding in the vicinity of the sigmoid colon anastomosis which was unchanged compared a CAT scan on 05/31/2024. Radiologist also noted nonprogressive left ventral abdominal wall irregular subcutaneous fluid collection compared to the previous CT scan. I did discuss these findings with Dr. Avina and he did evaluate the patient here in the emergency department. His impression that the patient's pain is chronic and that the patient was not have a surgical cause for her bloody diarrhea. The C difficile test is pending collection of stool. I will discuss admission with the covering hospitalist for further evaluation of her lower GI bleed and for treatment of her possible urinary tract infection.. Lab Data 06/06/24 09:27 06/05/24 22:58 Labs: Lab Results 06/05/24 06/06/24 06/06/24 Range/Units 22:58 01:31 01:50 WBC 14.7 H (4.8-10.8) X10*3/uL RBC 4.03 L (4.20-5.50) X10*6/uL Hgb 10.8 L 10.9 L (12.0-16.0) g/dl Hct 34.2 L 33.5 L (37.0-47.0) % MCV 84.9 (80.0-98.0) fL MCH 26.8 L (27.0-33.0) pg MCHC 31.6 (31.0-35.0) g/dl RDW 18.1 H (11.0-16.0) % Plt Count 270 D (160-400) X10*3/uL MPV 9.4 (9.4-12.3) fL Immature Gran % (Auto) 0.9 H (0.0-0.4) % Neut % (Auto) 74.3 H (45-73) % Lymph % (Auto) 17.1 L (20-40) % [place] % (Auto) 6.7 (2-11) % Eos % (Auto) 0.7 (0-4) % Baso % (Auto) 0.3 (0-2) % Lymph # (Auto) 2.5 (1.2-4.9) X10*3/uL [place] # (Auto) 1.0 (0.1-1.2) X10*3/uL Eos # (Auto) 0.1 (0.0-0.4) X10*3/uL Baso # (Auto) 0.1 (0.0-0.2) X10*3/uL Abs Immat Gran (auto) 0.13 H (0.00-0.03) X10*3/uL Absolute Neuts (auto) 10.9 H (2.0-8.3) x10*3/uL Absolute Nucleated RBC 0.000 (0.0-0.012) X10*3/uL Nucleated RBC % (auto) 0.0 (0.0-0.2) /100WBC Sodium 139 (135-145) mmol/L Potassium 4.4 (3.3-5.1) mmol/L Chloride 108 (96-108) mmol/L Carbon Dioxide 21 L (22-29) mmol/L Anion Gap 14 (12-20) BUN 26 H (9-16) mg/dL Creatinine 1.47 H (0.5-1.4) mg/dL Estim Creat Clear Calc 32.6 Estimated GFR 34 Random Glucose 136 H (60-115) mg/dL Lactic Acid (0.5-2.0) mmol/L Calcium 9.5 (8.4-10.2) mg/dL Total Bilirubin 0.3 (0.0-1.0) mg/dL AST 43 H (5-31) U/L ALT 35 H (0-31) U/L Alkaline Phosphatase 68 (39-117) U/L Total Protein 7.6 (6.5-8.0) g/dL Albumin 3.7 (3.5-5.0) g/dL Urine Color Yellow Urine Appearance Turbid Urine pH 6.0 (5.0-9.0) Ur Specific [place] 1.015 (1.005-1.025) Urine Protein 100 (2+) H (Neg-Trace) mg/dL Urine Glucose (UA) Negative (Negative) mg/dL Urine Ketones Trace (Negative) mg/dL Urine Blood Moderate (2+) H (Negative) Urine Nitrite Positive H (Negative) Ur Leukocyte Esterase Large (3+) H (Negative) Urine RBC >20 H (0-2) /HPF Urine WBC >50 H (0-5) /HPF Ur Squamous Epith Cells 3-5 (0-2) /HPF Urine Bacteria 4+ (None Seen) Hyaline Casts 3-5 (0-2) /LPF Stool Occult Blood POSITIVE (NEGATIVE) 06/06/24 Range/Units 03:35 WBC (4.8-10.8) X10*3/uL RBC (4.20-5.50) X10*6/uL Hgb (12.0-16.0) g/dl Hct (37.0-47.0) % MCV (80.0-98.0) fL MCH (27.0-33.0) pg MCHC (31.0-35.0) g/dl RDW (11.0-16.0) % Plt Count (160-400) X10*3/uL MPV (9.4-12.3) fL Immature Gran % (Auto) (0.0-0.4) % Neut % (Auto) (45-73) % Lymph % (Auto) (20-40) % [place] % (Auto) (2-11) % Eos % (Auto) (0-4) % Baso % (Auto) (0-2) % Lymph # (Auto) (1.2-4.9) X10*3/uL [place] # (Auto) (0.1-1.2) X10*3/uL Eos # (Auto) (0.0-0.4) X10*3/uL Baso # (Auto) (0.0-0.2) X10*3/uL Abs Immat Gran (auto) (0.00-0.03) X10*3/uL Absolute Neuts (auto) (2.0-8.3) x10*3/uL Absolute Nucleated RBC (0.0-0.012) X10*3/uL Nucleated RBC % (auto) (0.0-0.2) /100WBC Sodium (135-145) mmol/L Potassium (3.3-5.1) mmol/L Chloride (96-108) mmol/L Carbon Dioxide (22-29) mmol/L Anion Gap (12-20) BUN (9-16) mg/dL Creatinine (0.5-1.4) mg/dL Estim Creat Clear Calc Estimated GFR Random Glucose (60-115) mg/dL Lactic Acid 2.0 (0.5-2.0) mmol/L Calcium (8.4-10.2) mg/dL Total Bilirubin (0.0-1.0) mg/dL AST (5-31) U/L ALT (0-31) U/L Alkaline Phosphatase (39-117) U/L Total Protein (6.5-8.0) g/dL Albumin (3.5-5.0) g/dL Urine Color Urine Appearance Urine pH (5.0-9.0) Ur Specific [place] (1.005-1.025) Urine Protein (Neg-Trace) mg/dL Urine Glucose (UA) (Negative) mg/dL Urine Ketones (Negative) mg/dL Urine Blood (Negative) Urine Nitrite (Negative) Ur Leukocyte Esterase (Negative) Urine RBC (0-2) /HPF Urine WBC (0-5) /HPF Ur Squamous Epith Cells (0-2) /HPF Urine Bacteria (None Seen) Hyaline Casts (0-2) /LPF Stool Occult Blood (NEGATIVE) Radiology Impression Discussion of test interpretation with radiology: I have reviewed the radiologist's reading. Radiologist Impression: CT abdomen and pelvis without contrast Comparison: 05/31/2024 IMPRESSION: 1. Distended gallbladder with gallstones. Correlate clinically for presence or absence of right upper quadrant pain/possible acute cholecystitis. 2. Partial sigmoid colonic resection as before. No significant change in [id number]-sg-yzuhtbil fat stranding in the vicinity of the sigmoid colon anastomosis. Finding may be seen with nonspecific colitis or uncomplicated diverticulitis (diverticular like outpouching is seen at level of the sigmoid anastomosis). 3. Nonprogressive left ventral abdominal wall irregular subcutaneous fluid collection with neighboring nonprogressive [id number] fat stranding and minimal skin thickening (finding may be due to a nonspecific postoperative fluid collection versus abscess). Correlate clinically. This document has been electronically signed by: Serina Escamilla MD on 06/06/2024 06:59:13 Dictated By: Serina Escamilla MD Critical Care Time Critical Care Time Critical Care Time: Yes Total Critical Care Time: 45 Attestation: Critical Care: The patient was critically ill with a high probability of imminent or life threatening deterioration. I spent greater than 30 minutes of discontinuous time evaluating the patient,delivering critical care at the bedside, discussing and evaluating pertinent data with consultants. Critical care time does not include time spent performing separately billable procedures or teaching. Total time spent performing critical care was 45 minutes. Discharge Plan Discharge Clinical Impression: Urinary tract infection due to ESBL Klebsiella, Abdominal pain Patient Disposition: Admitted As Inpatient Interventions: Admission Worksheet (ED) Last Done: 06/06/24 09:59 Discharge Date/Time: 06/06/24 14:37
[2024-06-06 03:38] VITALS: BP 125/56; PULSE 71; RESP 16; TEMP 36.6; O2SAT 100
[2024-06-06] MEDS: Meropenem 1 GM VIAL IVPUSH (04:32)
--- NOTE | 2024-06-06 08:19 | P.CONGS_ITS ---
History of Present Illness Consult details Consult date: 06/06/24 Narrative: [age] year old female with multiple medical problems including morbid obesity, history of a staghorn calculus with retroperitoneal abscess, history of sigmoid obstruction from a diverticular stricture with Vicki's procedure last year and reversal of colostomy in February,, here for passage of blood per rectum She says that she started to have what she describes as watery stools yesterday noticed blood with her bowel movements. She also describes having lower abdominal pain She says she does not think that she has hemorrhoids. She had 1 episode of vomiting yesterday Currently she says she minimal pain. She was admitted to hospital just 3 days ago for vaginitis and she also had a recent urinary tract infection. She therefore had been on antibiotics for some time. She denies any fever or chills. She has limited mobility. She is able to stand up and walk short distances but mostly gets around with a wheelchair. Review of Systems 2 Constitutional: Constitutional: Denies chills and Denies fever(s) Cardiovascular: Cardiovascular: Denies chest pain Respiratory: Respiratory: Denies cough Gastrointestinal: Gastrointestinal: Reports hematochezia Genitourinary: Genitourinary: Reports dysuria Musculoskeletal: Musculoskeletal: Reports abnormal gait, Reports back pain and Reports limited range of motion Neurologic: Reports abnormal gait REPLACED BY [facility] Past Medical History Medical History Blood per rectum Dysuria Abscess Hospital discharge follow-up Generalized abdominal pain Encounter for wheelchair assessment Diverticular disease Major depressive disorder Heel spur Chronic low back pain Uterine cancer Hyperthyroidism Weakness of both lower extremities Hydroureteronephrosis Wound infection Open wound of back, complicated Cellulitis Frequency of urination Vaginal burning Vaginal itching PMB (postmenopausal bleeding) Cirrhosis of liver Does mobilize using walker PONV (postoperative nausea and vomiting) Left foot drop Fatty liver Fibromyalgia Neuropathy RBBB Cholelithiasis Staghorn calculus Renal calculus, bilateral Renal calyceal dilation determined by ultrasound UTI (urinary tract infection) Diabetes mellitus, type II Ganglion cyst Plantar fasciitis Anxiety OA (osteoarthritis) Obstructive airway disease Hypercholesterolemia Low back pain Sciatica Hypothyroidism HTN (hypertension) Primary osteoarthritis of right knee Retained ureteral stent Renal stones Staghorn calculus Perirectal abscess Family History Family History Father Alcohol dependence Mother CHF (congestive heart failure) Cancer of breast Mother No problems noted. Other Alcoholic cirrhosis Substance use disorder Surgical History Surgical History History of colostomy reversal (02/20/24) History of colectomy (~10/06/23) Status post cystoscopy with ureteral stent placement History of lumbar discectomy History of lumpectomy of both breasts History of cystoscopy History of lithotripsy Hx of colonoscopy (~04/28/23) History of surgery Social History Social History Household Members: Significant Other Housing: House Are you a primary restorative care technician to a significant other at home: No Do you presently have visiting nurse or other home services: Yes (vna) Alcohol intake: current Alcohol intake frequency: does not drink Alcohol type: hard liquor Comment: wheelchair for long distances Patient Tobacco Use Status: Former Tobacco user Tobacco use type: Cigarette Years Smoked: 27 Smoked in Last 30 Days: No e-Cigarette/Vaping Use: Never Used Second Hand Smoke Exposure: Yes Use of substances other than those prescribed or required for medical reasons: No Currently Displaying Signs/Symptoms of Drug Intoxication Withdrawal: No Have you been hit, kicked, punched, or otherwise hurt by someone within the past year? If so, by whom?: No Do you feel safe in your current relationship?: Yes Is there a partner from a previous relationship who is making you feel unsafe now?: No Are you made to feel afraid or neglected: No Advance Directives: Yes Advance Directives on File: Yes Advance Directives Date on File: 04/06/21 Do you have a plan to hurt others: No Plan Recently lost weight without trying: No Eating poorly because of decreased appetite: No Nutrition Risks: No Nutritional Risk Patient : No : No Poor oral hygiene: No service: No Current occupational status: disabled Cognitive needs: Yes (wheelchair) Hearing needs: No Vision needs: Yes (Glasses) Meds Allergies Allergy/AdvReac Type Severity Reaction Status Date / Time chlorpheniramine Allergy Severe HALLUCINATI Verified 06/05/24 22:41 [From TUSSIONEX] ONS ciprofloxacin [From CIPRO] Allergy Severe ANAPHYLAXIS Verified 06/05/24 22:41 escitalopram [ESCITALOPRAM] Allergy Severe DISSOCIATIVE Verified 06/05/24 22:41 REACTION fluoxetine [FLUOXETINE] Allergy Severe DISSOCIATIVE Verified 06/05/24 22:41 REACTION hydrocodone [From TUSSIONEX] Allergy Severe HALLUCINATI Verified 06/05/24 22:41 ONS ibuprofen [IBUPROFEN] Allergy Severe THROAT Verified 06/05/24 22:41 SWELLING Sulfa (Sulfonamide Allergy Severe DYSPNEA Verified 06/05/24 22:41 Antibiotics) [SULFA (SULFONAMIDE ANTIBIOTICS)] clarithromycin [From BIAXIN] Allergy Intermediate ABD.PAIN Verified 06/05/24 22:41 duloxetine [DULOXETINE] Allergy Intermediate FACIAL Verified 06/05/24 22:41 NUMBNESS erythromycin base Allergy Intermediate RASH Verified 06/05/24 22:41 [ERYTHROMYCIN BASE] Penicillins [PENICILLINS] Allergy Intermediate RASH Verified 06/05/24 22:41 tetracycline [TETRACYCLINE] Allergy Intermediate DIARRHEA Verified 06/05/24 22:41 codeine [CODEINE] Allergy Unknown TINNITIS Verified 06/05/24 22:41 guaifenesin Allergy Unknown Unknown Verified 06/05/24 22:41 levofloxacin [From Levaquin] Allergy Unknown Unknown Verified 06/05/24 22:41 pregabalin Allergy Unknown Unknown Verified 06/05/24 22:41 Home Medications ?Medication ?Instructions ?Recorded ?Confirmed ?Last Taken ?Type atorvastatin 10 mg tablet 10 mg PO DAILY 04/05/21 06/06/24 06/05/24 History metformin 500 mg tablet,extended 500 mg PO DAILY@1700 04/06/21 06/06/24 06/05/24 History release 24 hr acetaminophen 500 mg tablet 1,000 mg PO Q6H PRN Pain 10/04/23 06/06/24 Unknown History hydrocodone 5 mg-acetaminophen 325 1 tab PO Q4-6H PRN Pain (Scale 03/29/24 06/06/24 Unknown History mg tablet Score 7-10) pyridoxine (vitamin B6) 100 mg 100 mg PO DAILY 04/11/24 06/06/24 06/05/24 History tablet (Vitamin B-6) tramadol 50 mg tablet 50 mg PO DAILY PRN Pain 04/11/24 06/06/24 Unknown History cholecalciferol (vitamin D3) 25 50 mcg PO DAILY 05/19/24 06/06/24 06/05/24 History mcg (1,000 unit) capsule levothyroxine 112 mcg tablet 112 mcg PO GALE@0600 05/31/24 06/06/24 06/05/24 History Physical Exam 2 Vital Signs: Vital Signs: Last Vital Signs Temp 97.9 F 06/06/24 03:38 Pulse 71 06/06/24 03:38 Resp 16 06/06/24 03:38 BP 125/56 L 06/06/24 03:38 Pulse Ox 100 06/06/24 03:38 O2 Del Method Room Air 06/06/24 03:38 BMI result Body Mass Index 37.2 Const: Other: Appears obese General: comfortable and no acute distress Orientation/consciousness: p atient oriented x3 Resp: Effort & Inspection: normal respiratory effort Cardio: Rate: regular rate GI: Other: Old colostomy site on the left healing well with a small residual opening, clean; midline incision well healed Palpation (GI): Soft to palpation, not firm, Tenderness to palpation present (GI) (Mild tenderness diffusely, mostly on the lower abdomen ) and no guarding Neuro: General: patient oriented x3 Results Labs 06/07/24 05:51 06/07/24 05:51 Labs: Abnormal lab results 06/05/24 06/06/24 06/06/24 Range/Units 22:58 01:31 01:50 WBC 14.7 H (4.8-10.8) X10*3/uL RBC 4.03 L (4.20-5.50) X10*6/uL Hgb 10.8 L 10.9 L (12.0-16.0) g/dl Hct 34.2 L 33.5 L (37.0-47.0) % MCH 26.8 L (27.0-33.0) pg RDW 18.1 H (11.0-16.0) % Immature Gran % (Auto) 0.9 H (0.0-0.4) % Neut % (Auto) 74.3 H (45-73) % Lymph % (Auto) 17.1 L (20-40) % Abs Immat Gran (auto) 0.13 H (0.00-0.03) X10*3/uL Absolute Neuts (auto) 10.9 H (2.0-8.3) x10*3/uL Carbon Dioxide 21 L (22-29) mmol/L BUN 26 H (9-16) mg/dL Creatinine 1.47 H (0.5-1.4) mg/dL Random Glucose 136 H (60-115) mg/dL AST 43 H (5-31) U/L ALT 35 H (0-31) U/L Urine Protein 100 (2+) H (Neg-Trace) mg/dL Urine Blood Moderate (2+) H (Negative) Urine Nitrite Positive H (Negative) Ur Leukocyte Esterase Large (3+) H (Negative) Urine RBC >20 H (0-2) /HPF Urine WBC >50 H (0-5) /HPF Short CBC 06/05/24 06/06/24 Range/Units 22:58 01:31 WBC 14.7 H (4.8-10.8) X10*3/uL Hgb 10.8 L 10.9 L (12.0-16.0) g/dl Hct 34.2 L 33.5 L (37.0-47.0) % Plt Count 270 D (160-400) X10*3/uL BMP 06/05/24 22:58 Sodium 139 Potassium 4.4 Chloride 108 Carbon Dioxide 21 L BUN 26 H Creatinine 1.47 H Calcium 9.5 Liver Function 06/05/24 Range/Units 22:58 Total Bilirubin 0.3 (0.0-1.0) mg/dL AST 43 H (5-31) U/L ALT 35 H (0-31) U/L Alkaline Phosphatase 68 (39-117) U/L Albumin 3.7 (3.5-5.0) g/dL Urine 06/06/24 Range/Units 01:50 Urine Color Yellow Urine Appearance Turbid Urine pH 6.0 (5.0-9.0) Ur Specific [place] 1.015 (1.005-1.025) Urine Protein 100 (2+) H (Neg-Trace) mg/dL Urine Glucose (UA) Negative (Negative) mg/dL All other labs normal. IMPRESSION: 1. Distended gallbladder with gallstones. Correlate clinically for presence or absence of right upper quadrant pain/possible acute cholecystitis. 2. Partial sigmoid colonic resection as before. No significant change in [id number] fat stranding in the vicinity of the sigmoid colon anastomosis. Finding may be seen with nonspecific colitis or uncomplicated diverticulitis (diverticular like outpouching is seen at level of the sigmoid anastomosis). 3. Nonprogressive left ventral abdominal wall irregular subcutaneous fluid collection with neighboring nonprogressive [id number]-ju-lswjjfkb fat stranding and minimal skin thickening (finding may be due to a nonspecific postoperative fluid collection versus abscess). Correlate clinically. Assessment and Plan (1) Blood per rectum: Status: Acute 79 year female is here because of passage of blood per rectum. She also describes lower abdominal pain as well as watery stools I have reviewed his CAT scan images. There is no of some inflammatory changes in the area of the old rectosigmoid anastomosis although this appears to be chronic and has been seen and previous recent CAT scan images. She may have diverticulitis however from an area adjacent to this anastomosis. I am uncertain as to the etiology of her bleeding. Her hemoglobin is 10. She may need to be seen by air moving technician for possible GI workup Examination does not show large external hemorrhoids. It may be best to check stools as well for C diff as she has been recently on antibiotics and has had significant diarrhea Her abdominal exam is otherwise benign. She also has gallstones on CAT scan but overall clinical picture does not suggest cholecystitis currently. Procedures Date of Service Date of Service: 06/07/24
--- NOTE | 2024-06-06 09:19 | P.HPHOSP_ITS ---
History of Present Illness Date of Service: 06/06/24 Attending physician on admission: Dilshad Tomlinson Chief Complaint: Bloody diarrhea Pt is a 79-year-old female with a PMH significant for HTN, HLD, [id number] type 2 diabetes, hypothyroidism, CKD 3, and hx of sigmoid stricture s/p Vicki procedure (10/06/23) with recent colostomy reversal?(02/25/24) who presents to the ED for evaluation of bloody diarrhea since yesterday afternoon. Pt reports symptoms began yesterday proximally 3 in the afternoon when she experienced 1 episode of nausea and vomiting and periumbilical and suprapubic cramping/abdominal pain. Pt went to the bathroom and had a bowel movement that began normally but soon transitioned to loose/watery diarrhea with bright red blood. Pt denies experiencing similar symptoms before. Reports a total of 5-6 episodes of bloody diarrhea, including last 1 while in the ED. Denies any rectal pain. Denies any lightheadedness or dizziness. No SOB or difficulty breathing. Denies chest pain/pressure, palpitations. Denies dysuria or polyuria. Of note, pt was recently admitted to the hospital on 05/31-06/02 for vaginal burning due to atrophic vaginitis. Was also initially treated for multidrug resistant bacteremia and possible acute diverticulitis with IV meropenem. However, pt was seen by infectious disease who felt she did not have an active infection and recommended holding on antibiotics. In the ED pt with slightly soft diastolic BP as low as 124/42. Labs were significant for stool positive for occult blood, leukocytosis of 14.5, stable normocytic anemia of 10.8/34.2 with repeats stable at 10 0.9/33.5, and 10.0/32.6, and creatinine 1.47. No significant electrolyte anomalies. Lactic acid WNL at 2.0. Chronic mild transaminitis of AST 43 and ALT 35. UA similar to prior with positive nitrites, leukocyte esterase, WBCs, and bacteria 4+. CT?of abdomen/pelvis showed distended gallbladder with gallstones. Also found no significant change in mild to moderate fat stranding in vicinity of sigmoid colon anastomosis, and nonprogressive left ventral abdominal wall irregular subcutaneous fluid collection. Pt was treated in the ED with IVF, ondansetron, morphine, and meropenem. Pt is admitted to the hospital under observation for treatment and further evaluation of hematochezia concerning for possible GI bleed. Review of Systems 2 Review of Systems: Negative except for that which is stated in the HPI. [facility] Medical History Blood per rectum Dysuria Abscess Hospital discharge follow-up Generalized abdominal pain Encounter for wheelchair assessment Diverticular disease Major depressive disorder Heel spur Chronic low back pain Uterine cancer Hyperthyroidism Weakness of both lower extremities Hydroureteronephrosis Wound infection Open wound of back, complicated Cellulitis Frequency of urination Vaginal burning Vaginal itching PMB (postmenopausal bleeding) Cirrhosis of liver Does mobilize using walker PONV (postoperative nausea and vomiting) Left foot drop Fatty liver Fibromyalgia Neuropathy RBBB Cholelithiasis Staghorn calculus Renal calculus, bilateral Renal calyceal dilation determined by ultrasound UTI (urinary tract infection) Diabetes mellitus, type II Ganglion cyst Plantar fasciitis Anxiety OA (osteoarthritis) Obstructive airway disease Hypercholesterolemia Low back pain Sciatica Hypothyroidism HTN (hypertension) Primary osteoarthritis of right knee Retained ureteral stent Renal stones Staghorn calculus Perirectal abscess Family History Father Alcohol dependence Mother CHF (congestive heart failure) Cancer of breast Mother No problems noted. Other Alcoholic cirrhosis Substance use disorder Surgical History History of colostomy reversal (02/20/24) History of colectomy (~10/06/23) Status post cystoscopy with ureteral stent placement History of lumbar discectomy History of lumpectomy of both breasts History of cystoscopy History of lithotripsy Hx of colonoscopy (~04/28/23) History of surgery Social History Household Members: Significant Other Housing: House Are you a primary respiratory care faculty to a significant other at home: No Do you presently have visiting nurse or other home services: No Alcohol intake: current Alcohol intake frequency: does not drink Alcohol type: hard liquor Comment: wheelchair for long distances Patient Tobacco Use Status: Former Tobacco user Tobacco use type: Cigarette Years Smoked: 27 Smoked in Last 30 Days: No e-Cigarette/Vaping Use: Never Used Second Hand Smoke Exposure: Yes Use of substances other than those prescribed or required for medical reasons: No Advance Directives: Yes Advance Directives on File: Yes Advance Directives Date on File: 04/06/21 Nutrition Risks: No Nutritional Risk service: No Current occupational status: disabled Cognitive needs: Yes (wheelchair) Hearing needs: No Vision needs: Yes (Glasses) Meds Allergies Allergy/AdvReac Type Severity Reaction Status Date / Time chlorpheniramine Allergy Severe HALLUCINATI Verified 06/05/24 22:41 [From TUSSIONEX] ONS ciprofloxacin [From CIPRO] Allergy Severe ANAPHYLAXIS Verified 06/05/24 22:41 escitalopram [ESCITALOPRAM] Allergy Severe DISSOCIATIVE Verified 06/05/24 22:41 REACTION fluoxetine [FLUOXETINE] Allergy Severe DISSOCIATIVE Verified 06/05/24 22:41 REACTION hydrocodone [From TUSSIONEX] Allergy Severe HALLUCINATI Verified 06/05/24 22:41 ONS ibuprofen [IBUPROFEN] Allergy Severe THROAT Verified 06/05/24 22:41 SWELLING Sulfa (Sulfonamide Allergy Severe DYSPNEA Verified 06/05/24 22:41 Antibiotics) [SULFA (SULFONAMIDE ANTIBIOTICS)] clarithromycin [From BIAXIN] Allergy Intermediate ABD.PAIN Verified 06/05/24 22:41 duloxetine [DULOXETINE] Allergy Intermediate FACIAL Verified 06/05/24 22:41 NUMBNESS erythromycin base Allergy Intermediate RASH Verified 06/05/24 22:41 [ERYTHROMYCIN BASE] Penicillins [PENICILLINS] Allergy Intermediate RASH Verified 06/05/24 22:41 tetracycline [TETRACYCLINE] Allergy Intermediate DIARRHEA Verified 06/05/24 22:41 codeine [CODEINE] Allergy Unknown TINNITIS Verified 06/05/24 22:41 guaifenesin Allergy Unknown Unknown Verified 06/05/24 22:41 levofloxacin [From Levaquin] Allergy Unknown Unknown Verified 06/05/24 22:41 pregabalin Allergy Unknown Unknown Verified 06/05/24 22:41 Active Medications: Current Medications Acetaminophen (Acetaminophen 325 Mg Tablet) 650 mg PO Q6H PRN PRN Reason: Pain, Mild 1-3,fever,headache Calcium Carbonate (Calcium Carbonate 750 Mg Tab.Chew) 750 mg PO Q4H PRN PRN Reason: Heartburn Magnesium Hydroxide (Milk Of Magnesia 30 Ml Oral.Susp) 30 ml PO DAILY PRN PRN Reason: Constipation Melatonin (Melatonin 3 Mg Tablet) 6 mg PO BEDTIME PRN PRN Reason: Insomnia Morphine Sulfate (Morphine Sulfate 4 Mg/Ml Cartridge) 4 mg IVPUSH Q4H PRN; Protocol PRN Reason: Pain, Severe (Pain Scale 7-10) Ondansetron HCl (Ondansetron Hcl 4 Mg/2 Ml Vial) 4 mg IVPUSH Q8H PRN PRN Reason: Nausea and Vomiting Sodium Chloride (0.9 % Sodium Chloride Flush 3 Ml Syringe) 3 ml IVFLUSH QSHIFT [facility] Home Medications ?Medication ?Instructions ?Recorded ?Confirmed ?Last Taken ?Type atorvastatin 10 mg tablet 10 mg PO DAILY 04/05/21 06/06/24 06/05/24 History metformin 500 mg tablet,extended 500 mg PO DAILY@1700 04/06/21 06/06/24 06/05/24 History release 24 hr acetaminophen 500 mg tablet 1,000 mg PO Q6H PRN Pain 10/04/23 06/06/24 Unknown History hydrocodone 5 mg-acetaminophen 325 1 tab PO Q4-6H PRN Pain (Scale 03/29/24 06/06/24 Unknown History mg tablet Score 7-10) pyridoxine (vitamin B6) 100 mg 100 mg PO DAILY 04/11/24 06/06/24 06/05/24 History tablet (Vitamin B-6) tramadol 50 mg tablet 50 mg PO DAILY PRN Pain 04/11/24 06/06/24 Unknown History cholecalciferol (vitamin D3) 25 50 mcg PO DAILY 05/19/24 06/06/24 06/05/24 History mcg (1,000 unit) capsule levothyroxine 112 mcg tablet 112 mcg PO MOTUTHFRSA@0600 05/31/24 06/06/24 06/05/24 History Physical Exam 2 Vital Signs and Narrative: Vital Signs: Last Vital Signs Temp 97.9 F 06/06/24 03:38 Pulse 71 06/06/24 03:38 Resp 16 06/06/24 03:38 BP 125/56 L 06/06/24 03:38 Pulse Ox 100 06/06/24 03:38 O2 Del Method Room Air 06/06/24 03:38 BMI result Body Mass Index 37.2 General: AOx3, no acute distress Resp: CTA bilaterally CVS: S1, S2, RRR GI: Mild right-sided tenderness, +BS, + diastasis recti Skin: Warm, dry Neuro: Cranial nerves II-XII grossly intact bilaterally. Motor grossly intact bilaterally Extremities: No edema Psych: Appropriate affect Results Labs 06/06/24 09:27 06/05/24 22:58 Labs: Laboratory Results - last 24 hr 06/05/24 06/06/24 06/06/24 22:58 01:50 03:35 MCV 84.9 MCH 26.8 L MCHC 31.6 RDW 18.1 H Plt Count 270 D MPV 9.4 Immature Gran % (Auto) 0.9 H Neut % (Auto) 74.3 H Lymph % (Auto) 17.1 L [place] % (Auto) 6.7 Eos % (Auto) 0.7 Baso % (Auto) 0.3 Lymph # (Auto) 2.5 [place] # (Auto) 1.0 Eos # (Auto) 0.1 Baso # (Auto) 0.1 Abs Immat Gran (auto) 0.13 H Absolute Neuts (auto) 10.9 H Absolute Nucleated RBC 0.000 Nucleated RBC % (auto) 0.0 Anion Gap 14 Estim Creat Clear Calc 32.6 Estimated GFR 34 Random Glucose 136 H Lactic Acid 2.0 Calcium 9.5 Total Bilirubin 0.3 AST 43 H ALT 35 H Alkaline Phosphatase 68 Total Protein 7.6 Albumin 3.7 Urine Color Yellow Urine Appearance Turbid Urine pH 6.0 Ur Specific [place] 1.015 Urine Protein 100 (2+) H Urine Glucose (UA) Negative Urine Ketones Trace Urine Blood Moderate (2+) H Urine Nitrite Positive H Ur Leukocyte Esterase Large (3+) H Urine RBC >20 H Urine WBC >50 H Ur Squamous Epith Cells 3-5 Urine Bacteria 4+ Hyaline Casts 3-5 Stool Occult Blood POSITIVE Assessment and Plan (1) Hematochezia: Status: Acute Plan Pt is a 79-year-old female with a PMH significant for HTN, HLD, jfe-ioffkwf-oyubfsgwh type 2 diabetes, hypothyroidism, CKD 3, and hx of sigmoid stricture s/p Vicki procedure (10/06/23) with recent colostomy reversal?(02/25/24) who presents to the ED for evaluation of bloody diarrhea since yesterday afternoon. Pt is admitted to the hospital under observation for treatment and further evaluation of hematochezia concerning for possible GI bleed. Hematochezia Pt with initial periumbilical and suprapubic pain, N/V x1, and bloody diarrhea x5-6 episodes since yesterday afternoon Serial H&H stable 10.8/34.2, 10.9/33.5, and 10.0/32.6 CT findings similar to prior from 05/31/2024 and 04/20/2024 GI consult for concern of possible GI bleed Check GI panel, C diff Follow H&H Abdominal pain CT showing distended gallbladder with gallstones Pt seen and evaluated by general surgery who feel abd pain and inflammation appear chronic Analgesics and antiemetics General surgery consult Clear liquid diet for now, advance as tolerated Question of UTI UA similar to previous Was seen by ID on 06/01/2024 who thought UA showed colonization, not active infection ID did not recommend antibiotics at that time Will hold on abx for now Leukocytosis WBCs 14.7 at time of presentation Likely reactionary, not due to sepsis No indication of active infection at this time Will hold on additional antibiotics for now HTN BP has been soft, hold lisinopril for now Ohs-epopfzk-dtwwbhkal type [address] on sliding scale insulin Diabetic diet once diet advanced HLD Continue statin Hypothyroidism Continue levothyroxine Full Code Attending:?Dr. Tomlinson DVT Prophylaxis: Pneumatic compression due to hematochezia Pt will be admitted to the hospital under observation for treatment and further evaluation of hematochezia concerning for possible GI bleed. Pt will require hospital level care for close monitoring of H&H as well as specialist consultation with both GI and General surgery. Quality Stroke Does the patient have a stroke diagnosis?: No VTE Prior VTE?: No VTE Risk Level:: Medical - moderate - high VTE Device Contraindication: N/A - Device Ordered VTE Drug Contraindication: Treatment Not Indicated
--- NOTE | 2024-06-06 09:34 | PHA.MEDREC ---
Pharmacy Consult ? Medication Reconciliation Pharmacy has completed the medication reconciliation. Utilized discharge packet, patient confirmed all medications, with no changes, she could not name any doses.
[2024-06-06 09:35] LABS: Hematocrit 32.6 % (37.0-47.0)
[2024-06-06 10:08] VITALS: BP 118/60; PULSE 71; RESP 16; TEMP 36.6; O2SAT 100
--- NOTE | 2024-06-06 13:37 | P.CNGI_ITS ---
History of Present Illness Data of Consult Service Date: 06/06/24 Primary Care Provider: Ap Deal MD HPI Reason for consult: bloody diarrhea 79-year-old female with a PMH significant for HTN, HLD, [id number] type 2 diabetes, hypothyroidism, CKD 3, and hx of sigmoid stricture s/p Vicki procedure (10/06/23) with recent colostomy reversal?(02/25/24) who I am seeing for assessment for 1d of bloody diarrhea She had noted mid abdominal cramping and nasuea with non bloody emesis. She noted loose stools tinged with some blood. She denies chest pain/pressure, palpitations. Denies dysuria or polyuria. No SOB or difficulty breathing She had recent admission MDRO bacteremia and received meropenam, Imaging: distended gallbladder with gallstones. mild to moderate fat stranding in vicinity of sigmoid colon anastomosis, nonprogressive left ventral abdominal wall irregular subcutaneous fluid collection Labs: WCC 14.5, stable normocytic anemia of 10.8/34.2 with repeats stable at 10 0.9/33.5, and 10.0/32.6, and creatinine 1.47.\ UA: positive nitrites, leukocyte esterase, WBCs, and bacteria 4+ Last [place]: 04/30 diverticular stricture, (had resection of this later) Review of Systems 2 Review of Systems: Constitutional : No Weight loss, No Fever, No Chills ENT/Mouth : No sore throat, No Rhinorrhea Eyes: No Swelling, No Redness Cardiovascular : No Chest Pain, No SOB, No Edema Respiratory : No Cough, No Sputum, No Wheezing Gastrointestinal : see HPI Genitourinary : NO Dysuria, No Urinary Frequency, No Hematuria, No Urgency Musculoskeletal : + joint pain, No Myalgias, No Joint Swelling Skin : No Skin Lesions, No rash Neuro : No Weakness, No Numbness, No Dizziness, No Headache Psych : No Anxiety/Panic, No Depression Heme/Lymph: No Bruising, No Lymphadenopathy Endocrine : No Polyuria, No Polydipsia All other systems reviewed and are negative. [facility] Past Medical History Medical History Blood per rectum Dysuria Abscess Hospital discharge follow-up Generalized abdominal pain Encounter for wheelchair assessment Diverticular disease Major depressive disorder Heel spur Chronic low back pain Uterine cancer Hyperthyroidism Weakness of both lower extremities Hydroureteronephrosis Wound infection Open wound of back, complicated Cellulitis Frequency of urination Vaginal burning Vaginal itching PMB (postmenopausal bleeding) Cirrhosis of liver Does mobilize using walker PONV (postoperative nausea and vomiting) Left foot drop Fatty liver Fibromyalgia Neuropathy RBBB Cholelithiasis Staghorn calculus Renal calculus, bilateral Renal calyceal dilation determined by ultrasound UTI (urinary tract infection) Diabetes mellitus, type II Ganglion cyst Plantar fasciitis Anxiety OA (osteoarthritis) Obstructive airway disease Hypercholesterolemia Low back pain Sciatica Hypothyroidism HTN (hypertension) Primary osteoarthritis of right knee Retained ureteral stent Renal stones Staghorn calculus Perirectal abscess Family History Family History Father Alcohol dependence Mother CHF (congestive heart failure) Cancer of breast Mother No problems noted. Other Alcoholic cirrhosis Substance use disorder Surgical History Surgical History History of colostomy reversal (02/20/24) History of colectomy (~10/06/23) Status post cystoscopy with ureteral stent placement History of lumbar discectomy History of lumpectomy of both breasts History of cystoscopy History of lithotripsy Hx of colonoscopy (~04/28/23) History of surgery Social History Social History Household Members: Significant Other Housing: House Are you a primary healthcare marketer to a significant other at home: No Do you presently have visiting nurse or other home services: Yes (vna) Alcohol intake: current Alcohol intake frequency: does not drink Alcohol type: hard liquor Comment: wheelchair for long distances Patient Tobacco Use Status: Former Tobacco user Tobacco use type: Cigarette Years Smoked: 27 e-Cigarette/Vaping Use: Never Used Second Hand Smoke Exposure: Yes Advance Directives Date on File: 04/06/21 service: No Current occupational status: disabled Cognitive needs: Yes (wheelchair) Hearing needs: No Vision needs: Yes (Glasses) Meds Allergies Allergy/AdvReac Type Severity Reaction Status Date / Time chlorpheniramine Allergy Severe HALLUCINATI Verified 06/05/24 22:41 [From TUSSIONEX] ONS ciprofloxacin [From CIPRO] Allergy Severe ANAPHYLAXIS Verified 06/05/24 22:41 escitalopram [ESCITALOPRAM] Allergy Severe DISSOCIATIVE Verified 06/05/24 22:41 REACTION fluoxetine [FLUOXETINE] Allergy Severe DISSOCIATIVE Verified 06/05/24 22:41 REACTION hydrocodone [From TUSSIONEX] Allergy Severe HALLUCINATI Verified 06/05/24 22:41 ONS ibuprofen [IBUPROFEN] Allergy Severe THROAT Verified 06/05/24 22:41 SWELLING Sulfa (Sulfonamide Allergy Severe DYSPNEA Verified 06/05/24 22:41 Antibiotics) [SULFA (SULFONAMIDE ANTIBIOTICS)] clarithromycin [From BIAXIN] Allergy Intermediate ABD.PAIN Verified 06/05/24 22:41 duloxetine [DULOXETINE] Allergy Intermediate FACIAL Verified 06/05/24 22:41 NUMBNESS erythromycin base Allergy Intermediate RASH Verified 06/05/24 22:41 [ERYTHROMYCIN BASE] Penicillins [PENICILLINS] Allergy Intermediate RASH Verified 06/05/24 22:41 tetracycline [TETRACYCLINE] Allergy Intermediate DIARRHEA Verified 06/05/24 22:41 codeine [CODEINE] Allergy Unknown TINNITIS Verified 06/05/24 22:41 guaifenesin Allergy Unknown Unknown Verified 06/05/24 22:41 levofloxacin [From Levaquin] Allergy Unknown Unknown Verified 06/05/24 22:41 pregabalin Allergy Unknown Unknown Verified 06/05/24 22:41 Active Medications: Current Medications Acetaminophen (Acetaminophen 325 Mg Tablet) 650 mg PO Q6H PRN PRN Reason: Pain, Mild 1-3,fever,headache Hydrocodone Bitart/Acetaminophen (Hydrocodone Bit/Acetam 5/325 Tablet) 1 tab PO Q4H PRN PRN Reason: Pain (Scale Score 7-10) Atorvastatin Calcium (Atorvastatin Calcium 10 Mg Tablet) 10 mg PO DAILY [facility] Calcium Carbonate (Calcium Carbonate 750 Mg Tab.Chew) 750 mg PO Q4H PRN PRN Reason: Heartburn Dextrose (Dextrose 50 % 25 Gm/50 Ml Syringe) 25 gm IVPUSH Q15M PRN; Protocol PRN Reason: per Hypoglycemia Standing Ord. Furosemide (Furosemide 40 Mg Tablet) 40 mg PO DAILY [facility]; Protocol Glucose (Glucose Gel 15 Gm Gel..Gram.) 15 gm PO Q15M PRN; Protocol PRN Reason: per Hypoglycemia Standing Ord. Insulin Human Lispro (Insulin Lispro 100 Unit/Ml 3 Ml Vial) 0 unit SUBCUT QIDACHS [facility]; Protocol Levothyroxine Sodium (Levothyroxine Sodium 112 Mcg Tablet) 112 mcg PO MOTUTHFRSA@0600 [facility] Levothyroxine Sodium (Levothyroxine Sodium 112 Mcg Tablet) 224 mcg PO SUWE@0600 [facility] Lisinopril (Lisinopril 10 Mg Tablet) 10 mg PO DAILY [facility]; Protocol Magnesium Hydroxide (Milk Of Magnesia 30 Ml Oral.Susp) 30 ml PO DAILY PRN PRN Reason: Constipation Melatonin (Melatonin 3 Mg Tablet) 6 mg PO BEDTIME PRN PRN Reason: Insomnia Morphine Sulfate (Morphine Sulfate 4 Mg/Ml Cartridge) 4 mg IVPUSH Q4H PRN; Protocol PRN Reason: Pain, Severe (Pain Scale 7-10) Ondansetron HCl (Ondansetron Hcl 4 Mg/2 Ml Vial) 4 mg IVPUSH Q8H PRN PRN Reason: Nausea and Vomiting Sodium Chloride (0.9 % Sodium Chloride Flush 3 Ml Syringe) 3 ml IVFLUSH QSHIFT [facility] Tramadol HCl (Tramadol Hcl 50 Mg Tablet) 50 mg PO DAILY PRN PRN Reason: Pain, Moderate(Pain Scale 4-6) Vitamin D (Cholecalciferol (Vitamin D3) 25 Mcg Tablet) 50 mcg PO DAILY [facility] Home Medications ?Medication ?Instructions ?Recorded ?Confirmed ?Last Taken ?Type atorvastatin 10 mg tablet 10 mg PO DAILY 04/05/21 06/06/24 06/05/24 History metformin 500 mg tablet,extended 500 mg PO DAILY@1700 04/06/21 06/06/24 06/05/24 History release 24 hr acetaminophen 500 mg tablet 1,000 mg PO Q6H PRN Pain 10/04/23 06/06/24 Unknown History hydrocodone 5 mg-acetaminophen 325 1 tab PO Q4-6H PRN Pain (Scale 03/29/24 06/06/24 Unknown History mg tablet Score 7-10) pyridoxine (vitamin B6) 100 mg 100 mg PO DAILY 04/11/24 06/06/24 06/05/24 History tablet (Vitamin B-6) tramadol 50 mg tablet 50 mg PO DAILY PRN Pain 04/11/24 06/06/24 Unknown History cholecalciferol (vitamin D3) 25 50 mcg PO DAILY 05/19/24 06/06/24 06/05/24 History mcg (1,000 unit) capsule levothyroxine 112 mcg tablet 112 mcg PO MOTUTHFRSA@0600 05/31/24 06/06/24 06/05/24 History Physical Exam 2 Vital Signs: Vital Signs: Last Vital Signs Temp 97.9 F 06/06/24 10:08 Pulse 71 06/06/24 10:08 Resp 16 06/06/24 10:08 BP 118/60 06/06/24 10:08 Pulse Ox 100 06/06/24 10:08 O2 Del Method Room Air 06/06/24 10:08 BMI result Body Mass Index 37.2 EXAM: GENERAL: The patient is well developed and nontoxic. VITAL SIGNS:see workflow HEENT: Nonicteric sclerae, PERRLA, EOMI. Oropharynx clear. Moist mucous membranes. Conjunctivae appear well perfused. No thyroid mass. CHEST: Chest wall is nontender. HEART: Regular rate and rhythm without murmurs. LUNGS: Clear to auscultation bilaterally. ABDOMEN: Soft, positive bowel sounds, tender lower abdo, no organomegaly.no flank tenderness SKIN: No rash, no excessive bruising, petechiae, or purpura. NEUROLOGIC: Cranial nerves II-XII intact without motor/sensory deficit. Psych: normal affect Results Labs 06/06/24 09:27 06/05/24 22:58 Labs: Short CBC 06/05/24 06/06/24 06/06/24 Range/Units 22:58 01:31 09:27 WBC 14.7 H (4.8-10.8) X10*3/uL Hgb 10.8 L 10.9 L 10.0 L (12.0-16.0) g/dl Hct 34.2 L 33.5 L 32.6 L (37.0-47.0) % Plt Count 270 D (160-400) X10*3/uL BMP 06/05/24 22:58 Sodium 139 Potassium 4.4 Chloride 108 Carbon Dioxide 21 L BUN 26 H Creatinine 1.47 H Calcium 9.5 Liver Function 06/05/24 Range/Units 22:58 Total Bilirubin 0.3 (0.0-1.0) mg/dL AST 43 H (5-31) U/L ALT 35 H (0-31) U/L Alkaline Phosphatase 68 (39-117) U/L Albumin 3.7 (3.5-5.0) g/dL Urine 04/30/25 Range/Units 01:50 Urine Color Yellow Urine Appearance Turbid Urine pH 6.0 (5.0-9.0) Ur Specific Pride 1.015 (1.005-1.025) Urine Protein 100 (2+) H (Neg-Trace) mg/dL Urine Glucose (UA) Negative (Negative) mg/dL Assessment and Plan (1) Hematochezia: Status: Acute Plan 1/ Diarrhea and blood in stools, stable HGB, with imaging showing possible diverticulitis ddx ischemia, infectious colitis, c diff. UA po for nitrites and blood. PLAN: 1/await stool testing, if c diff pos treat 2/ if c diff neg then cef and met 3/ if sx fail to resolve despite fluids and treatment, then can consider colo for further assessment 4/ await urine culture Procedures Date of Service Date of Service: 06/06/24
--- NOTE | 2024-06-06 13:51 | PC.NURSE ---
Pt c/o returning lower abd. pain after walking to BR and providing stool sample; 8/10 per pt at this time; pt medicated per orders
[2024-06-06 14:45] LABS: CDiff Gene PCR NEGATIVE (Negative)
[2024-06-06 15:11] VITALS: BP 113/55; PULSE 65; RESP 18; TEMP 36; O2SAT 93
[2024-06-06 15:26] LABS: Adenovirus F 40/41 Not Detected (Not Detect.); Astrovirus Not Detected (Not Detect.); Campylobacter Not Detected (Not Detect.); Cryptosporidium Not Detected (Not Detect.); Cyclospora cayetanensis Not Detected (Not Detect.); E. coli EAEC Not Detected (Not Detect.); E. coli EPEC Not Detected (Not Detect.); E. coli ETEC Not Detected (Not Detect.); E. coli STEC Not Detected (Not Detect.); Entamoeba histolytica Not Detected (Not Detect.); Giardia lamblia Not Detected (Not Detect.); Norovirus GI/GII Not Detected (Not Detect.); Plesiomonas shigelloides Not Detected (Not Detect.); Rotavirus A Not Detected (Not Detect.); Salmonella Not Detected (Not Detect.); Sapovirus Not Detected (Not Detect.); Shigella sp./EIEC Not Detected (Not Detect.); Vibrio Not Detected (Not Detect.); Vibrio Cholerae Not Detected (Not Detect.); Yersinia enterocolitica Not Detected (Not Detect.)
[2024-06-06] MEDS: 0.9 % Sodium Chloride Flush 3 ML SYRINGE IVFLUSH ×2 (15:41→19:43)
[2024-06-06 16:20] LABS: Glucose, Whole Blood 92 mg/dL (60-115)
[2024-06-06 19:04] VITALS: BP 109/51; PULSE 75; RESP 18; TEMP 36.1; O2SAT 98
[2024-06-06 19:34] LABS: Glucose, Whole Blood 166 mg/dL (60-115)
[2024-06-06] MEDS: Insulin Lispro 100 UNIT/ML 3 ML VIAL SUBCUT (19:41)
[2024-06-07 03:22] VITALS: BP 115/58; PULSE 69; RESP 20; TEMP 36.4; O2SAT 99
[2024-06-07] MEDS: Levothyroxine Sodium 112 MCG TABLET PO (06:38)
[2024-06-07 07:12] VITALS: BP 110/53; PULSE 60; TEMP 36.1; O2SAT 99
[2024-06-07 07:17] LABS: Glucose, Whole Blood 92 mg/dL (60-115)
[2024-06-07 07:37] LABS: Hematocrit 31.6 % (37.0-47.0); Hemoglobin 9.5 g/dl (12.0-16.0); Mean Corpuscular HGB Conc 30.1 g/dl (31.0-35.0); Mean Corpuscular Hemoglobin 26.5 pg (27.0-33.0); Mean Corpuscular Volume 88.3 fL (80.0-98.0); Mean Platelet Volume 10.3 fL (9.4-12.3); Platelet Count 202 X10*3/uL (160-400); Red Blood Count 3.58 X10*6/uL (4.20-5.50); White Blood Count 8.9 X10*3/uL (4.8-10.8)
[2024-06-07 07:47] LABS: Anion Gap 14 (12-20); Blood Urea Nitrogen 24 mg/dL (9-16); Calcium 8.8 mg/dL (8.4-10.2); Carbon Dioxide 22 mmol/L (22-29); Chloride 107 mmol/L (96-108); Creatinine Clr Calc Pharmacy 34.9; Estimated Glomerular Filt Rate 37; Glucose Random 78 mg/dL (60-115); Potassium 4.7 mmol/L (3.3-5.1); Sodium 138 mmol/L (135-145)
[2024-06-07] MEDS: Furosemide 40 MG TABLET PO (07:53)
[2024-06-07] MEDS: Cholecalciferol (Vitamin D3) 25 MCG TABLET 50 MCG PO (07:53)
[2024-06-07] MEDS: Atorvastatin Calcium 10 MG TABLET PO (07:53)
[2024-06-07] MEDS: 0.9 % Sodium Chloride Flush 3 ML SYRINGE IVFLUSH ×3 (07:54→21:37)
[2024-06-07] MEDS: lisinopriL 10 MG TABLET PO (07:54)
--- NOTE | 2024-06-07 08:51 | PM.PNGS ---
Subjective Subjective Date of Service: 06/07/24 Interval history: No blood per rectum today and last night She says last episode was yesterday morning Some lower abdominal pain Otherwise no other new complaints Physical Exam Vital Signs: Vital Signs: Last Vital Signs Temp 96.9 F 06/07/24 07:12 Pulse 60 06/07/24 07:12 Resp 20 06/07/24 03:22 BP 110/53 L 06/07/24 07:12 Pulse Ox 99 06/07/24 07:12 O2 Del Method Room Air 06/07/24 07:12 BMI result Body Mass Index 37.2 Const: General: comfortable and no acute distress Resp: Effort & Inspection: normal respiratory effort Cardio: Rate: regular rate GI: Other: Old wound on the left side from colostomy healing well Palpation (GI): Soft to palpation, not firm, Tenderness to palpation present (GI) (Mild tenderness, lower abdomen) and no guarding Objective Data Active Medications Acetaminophen (Acetaminophen 325 Mg Tablet) 650 mg PO Q6H PRN PRN Reason: Pain, Mild 1-3,fever,headache Hydrocodone Bitart/Acetaminophen (Hydrocodone Bit/Acetam 5/325 Tablet) 1 tab PO Q4H PRN PRN Reason: Pain (Scale Score 7-10) Atorvastatin Calcium (Atorvastatin Calcium 10 Mg Tablet) 10 mg PO DAILY [facility] Last Admin: 06/07/24 07:53 Dose: 10 mg Documented By: BRAEDEN Calcium Carbonate (Calcium Carbonate 750 Mg Tab.Chew) 750 mg PO Q4H PRN PRN Reason: Heartburn Dextrose (Dextrose 50 % 25 Gm/50 Ml Syringe) 25 gm IVPUSH Q15M PRN; Protocol PRN Reason: per Hypoglycemia Standing Ord. Furosemide (Furosemide 40 Mg Tablet) 40 mg PO DAILY [facility]; Protocol Last Admin: 06/07/24 07:53 Dose: 40 mg Documented By: BRAEDEN Glucose (Glucose Gel 15 Gm Gel..Gram.) 15 gm PO Q15M PRN; Protocol PRN Reason: per Hypoglycemia Standing Ord. Insulin Human Lispro (Insulin Lispro 100 Unit/Ml 3 Ml Vial) 0 unit SUBCUT QIDACHS [facility]; Protocol Last Admin: 06/07/24 07:21 Dose: Not Given Documented By: BRAEDEN Non-Admin Reason: No Insulin Coverage Levothyroxine Sodium (Levothyroxine Sodium 112 Mcg Tablet) 112 mcg [facility] Last Admin: 06/07/24 06:38 Dose: 112 mcg Documented By: RUBIO Levothyroxine Sodium (Levothyroxine Sodium 112 Mcg Tablet) 224 mcg PO SUWE@0600 [facility] Lisinopril (Lisinopril 10 Mg Tablet) 10 mg PO DAILY [facility]; Protocol Last Admin: 06/07/24 07:54 Dose: 10 mg Documented By: BRAEDEN Magnesium Hydroxide (Milk Of Magnesia 30 Ml Oral.Susp) 30 ml PO DAILY PRN PRN Reason: Constipation Melatonin (Melatonin 3 Mg Tablet) 6 mg PO BEDTIME PRN PRN Reason: Insomnia Morphine Sulfate (Morphine Sulfate 4 Mg/Ml Cartridge) 4 mg IVPUSH Q4H PRN; Protocol PRN Reason: Pain, Severe (Pain Scale 7-10) Last Admin: 06/06/24 20:06 Dose: 4 mg Documented By: RUBIO Ondansetron HCl (Ondansetron Hcl 4 Mg/2 Ml Vial) 4 mg IVPUSH Q8H PRN PRN Reason: Nausea and Vomiting Sodium Chloride (0.9 % Sodium Chloride Flush 3 Ml Syringe) 3 ml IVFLUSH QSHIFT [facility] Last Admin: 06/07/24 07:54 Dose: 3 ml Documented By: BRAEDEN Tramadol HCl (Tramadol Hcl 50 Mg Tablet) 50 mg PO DAILY PRN PRN Reason: Pain, Moderate(Pain Scale 4-6) Vitamin D (Cholecalciferol (Vitamin D3) 25 Mcg Tablet) 50 mcg PO DAILY [facility] Last Admin: 06/07/24 07:53 Dose: 50 mcg Documented By: BRAEDEN Labs 06/07/24 05:51 06/07/24 05:51 Labs: Laboratory Results - last 24 hr 06/06/24 06/06/24 06/06/24 13:30 16:16 19:11 MCV MCH MCHC RDW Plt Count MPV Absolute Nucleated RBC Nucleated RBC % (auto) Anion Gap Estim Creat Clear Calc Estimated GFR POC Glucose 92 166 H Random Glucose Calcium Stl C. cayetanensis PCR Not Detected Stool Rotavirus A PCR Not Detected Stl Adenov F 40/41 PCR Not Detected Stool Astrovirus (PCR) Not Detected Stool Campylobacter PCR Not Detected Stool Cryptosporidium PCR Not Detected Stl Tox Pr E STEC PCR Not Detected Stool E coli O157 PCR Not applicable Stl Enterotoxigenic E PCR Not Detected Stool EPEC (PCR) Not Detected Stool EAEC (PCR) Not Detected Stl E. histolytica PCR Not Detected Stool Giardia Lamblia PCR Not Detected Stl P. shigelloides PCR Not Detected Stool Salmonella PCR Not Detected Stool Sapovirus (PCR) Not Detected Stl Shigella/EIEC PCR Not Detected St Y.enterocolitica PCR Not Detected Stool Vibrio (PCR) Not Detected Stl Vibrio cholerae PCR Not Detected Stl Norovirus GI/GII PCR Not Detected C. difficile Tox B Gene NEGATIVE 06/07/24 06/07/24 05:51 07:13 MCV 88.3 MCH 26.5 L MCHC 30.1 L RDW 18.0 H Plt Count 202 D MPV 10.3 Absolute Nucleated RBC 0.000 Nucleated RBC % (auto) 0.0 Anion Gap 14 Estim Creat Clear Calc 34.9 Estimated GFR 37 POC Glucose 92 Random Glucose 78 Calcium 8.8 D Stl C. cayetanensis PCR Stool Rotavirus A PCR Stl Adenov F 40/41 PCR Stool Astrovirus (PCR) Stool Campylobacter PCR Stool Cryptosporidium PCR Stl Sh Tox Pr E STEC PCR Stool E coli O157 PCR Stl Enterotoxigenic E PCR Stool EPEC (PCR) Stool EAEC (PCR) Stl E. histolytica PCR Stool Giardia Lamblia PCR Stl P. shigelloides PCR Stool Salmonella PCR Stool Sapovirus (PCR) Stl Shigella/EIEC PCR St Y.enterocolitica PCR Stool Vibrio (PCR) Stl Vibrio cholerae PCR Stl Norovirus GI/GII PCR C. difficile Tox B Gene Microbiology Microbiology Results: Microbiology 06/06/24 03:36 Blood Culture - Preliminary Blood - Venous No growth after 24 hours. 06/06/24 03:36 Blood Culture - Preliminary Blood - Venous No growth after 24 hours. Procedures Date of Service Date of Service: 06/07/24 Progress Note: A&P Assessment and plan (1) Blood per rectum: Status: Acute Assessment and Plan: Has had bloody diarrhea C diff test negative No further episodes since yesterday afternoon She looks comfortable Followed by GI as well for possible colonoscopy Abdomen benign Time Spent With Patient Time: Total time managing care of this patient today ____ minutes. Quality Stroke Does the patient have a stroke diagnosis?: No VTE Prior VTE?: No VTE Risk Level:: Medical - moderate - high VTE Device Contraindication: N/A - Device Ordered VTE Drug Contraindication: Treatment Not Indicated
[2024-06-07 09:37] VITALS: BP 110/53; PULSE 60; O2SAT 99
[2024-06-07 12:08] LABS: Glucose, Whole Blood 107 mg/dL (60-115)
[2024-06-07] MEDS: cefTRIAXone sodium 1 GM VIAL IVPUSH (14:50)
[2024-06-07] MEDS: metroNIDAZOLE 500 MG TABLET PO ×2 (14:50→21:37)
--- NOTE | 2024-06-07 15:20 | MHC.CM.PN ---
CM MET WITH PT AND S/O, AZUL, AT BEDSIDE PT LIVES AT HOME AND AZUL HELPS WITH CARE NECESSARY SHE IS ACTIVE WITH [facility] FOR TWICE WEEKLY DRESSING CHANGES, AZUL CHANGES THEM THE OTHER 5 DAYS PER WEEK PT HAS A WALKER, ROLLATOR, W/C, GRAB BARS AND TUB BENCH HCP ON FILE PCP: [facility] DELIVERED DCP: HOME RESUME [facility], PT/VNA AWARE SHE WILL NEED SN AND PT [facility]UL WILL TRANSPORT
[2024-06-07 15:25] VITALS: BP 118/61; PULSE 71; RESP 18; TEMP 37.2; O2SAT 99
[2024-06-07 16:05] LABS: Glucose, Whole Blood 108 mg/dL (60-115)
--- NOTE | 2024-06-07 17:53 | P.PNIM_ITS ---
Subjective Subjective Date of Service: 06/07/24 Interval History: possible diverticulitis Review of Systems had mild bleeding x2 (very small amount when went for toilet) Diarrhea improved no abd pain Review of Systems: Yes all other systems are reviewed and are negative Physical Exam 2 Vital Signs: Vital Signs: Last Vital Signs Temp 98.9 F 06/07/24 15:25 Pulse 71 06/07/24 15:25 Resp 18 06/07/24 15:25 BP 118/61 06/07/24 15:25 Pulse Ox 99 06/07/24 15:25 O2 Del Method Room Air 06/07/24 15:25 BMI result Body Mass Index 37.2 Appearance: Alert.? Oriented X3.? . cvs: rrr, [id number] . res: clear to auscultation . abd: soft ,nt, bs present. ext pulses present , no cyanosis . neuro: axo3 , nonfocal. Objective Data Active Medications Acetaminophen (Acetaminophen 325 Mg Tablet) 650 mg PO Q6H PRN PRN Reason: Pain, Mild 1-3,fever,headache Hydrocodone Bitart/Acetaminophen (Hydrocodone Bit/Acetam 5/325 Tablet) 1 tab PO Q4H PRN PRN Reason: Pain (Scale Score 7-10) Atorvastatin Calcium (Atorvastatin Calcium 10 Mg Tablet) 10 mg PO DAILY [facility] Last Admin: 06/07/24 07:53 Dose: 10 mg Documented By: BRAEDEN Calcium Carbonate (Calcium Carbonate 750 Mg Tab.Chew) 750 mg PO Q4H PRN PRN Reason: Heartburn Ceftriaxone Sodium (Ceftriaxone Sodium 1 Gm Vial) 1 gm IVPUSH Q24H [facility] Last Admin: 06/07/24 14:50 Dose: 1 gm Documented By: SID Dextrose (Dextrose 50 % 25 Gm/50 Ml Syringe) 25 gm IVPUSH Q15M PRN; Protocol PRN Reason: per Hypoglycemia Standing Ord. Furosemide (Furosemide 40 Mg Tablet) 40 mg PO DAILY [facility]; Protocol Last Admin: 06/07/24 07:53 Dose: 40 mg Documented By: BRAEDEN Glucose (Glucose Gel 15 Gm Gel..Gram.) 15 gm PO Q15M PRN; Protocol PRN Reason: per Hypoglycemia Standing Ord. Insulin Human Lispro (Insulin Lispro 100 Unit/Ml 3 Ml Vial) 0 unit SUBCUT QIDACHS [facility]; Protocol Last Admin: 06/07/24 16:40 Dose: Not Given Documented By: SID Non-Admin Reason: No Insulin Coverage Levothyroxine Sodium (Levothyroxine Sodium 112 Mcg Tablet) 112 mcg PO MOTUTHFRSA@0600 [facility] Last Admin: 06/07/24 06:38 Dose: 112 mcg Documented By: RUBIO Levothyroxine Sodium (Levothyroxine Sodium 112 Mcg Tablet) 224 mcg PO SUWE@0600 [facility] Lisinopril (Lisinopril 10 Mg Tablet) 10 mg PO DAILY [facility]; Protocol Last Admin: 06/07/24 07:54 Dose: 10 mg Documented By: BRAEDEN Magnesium Hydroxide (Milk Of Magnesia 30 Ml Oral.Susp) 30 ml PO DAILY PRN PRN Reason: Constipation Melatonin (Melatonin 3 Mg Tablet) 6 mg PO BEDTIME PRN PRN Reason: Insomnia Metronidazole (Metronidazole 500 Mg Tablet) 500 mg PO Q8H [facility] Last Admin: 06/07/24 14:50 Dose: 500 mg Documented By: SID Morphine Sulfate (Morphine Sulfate 4 Mg/Ml Cartridge) 4 mg IVPUSH Q4H PRN; Protocol PRN Reason: Pain, Severe (Pain Scale 7-10) Last Admin: 06/06/24 20:06 Dose: 4 mg Documented By: RUBIO Ondansetron HCl (Ondansetron Hcl 4 Mg/2 Ml Vial) 4 mg IVPUSH Q8H PRN PRN Reason: Nausea and Vomiting Sodium Chloride (0.9 % Sodium Chloride Flush 3 Ml Syringe) 3 ml IVFLUSH [facility] Last Admin: 06/07/24 14:56 Dose: 3 ml Documented By: SID Tramadol HCl (Tramadol Hcl 50 Mg Tablet) 50 mg PO DAILY PRN PRN Reason: Pain, Moderate(Pain Scale 4-6) Vitamin D (Cholecalciferol (Vitamin D3) 25 Mcg Tablet) 50 mcg PO DAILY [facility] Last Admin: 06/07/24 07:53 Dose: 50 mcg Documented By: BRAEDEN Labs 06/07/24 05:51 06/07/24 05:51 Labs: Laboratory Results - last 24 hr 06/06/24 06/07/24 06/07/24 19:11 05:51 07:13 MCV 88.3 MCH 26.5 L MCHC 30.1 L RDW 18.0 H Plt Count 202 D MPV 10.3 Absolute Nucleated RBC 0.000 Nucleated RBC % (auto) 0.0 Anion Gap 14 Estim Creat Clear Calc 34.9 Estimated GFR 37 POC Glucose 166 H 92 Random Glucose 78 Calcium 8.8 D 06/07/24 06/07/24 12:03 16:01 MCV MCH MCHC RDW Plt Count MPV Absolute Nucleated RBC Nucleated RBC % (auto) Anion Gap Estim Creat Clear Calc Estimated GFR POC Glucose 107 108 Random Glucose Calcium Microbiology Microbiology Results: Microbiology 06/06/24 01:50 Urine Culture - Preliminary Urine clean catch - Clean Catch Midstream Gram negative marianela Proteus species 06/06/24 03:36 Blood Culture - Preliminary Blood - Venous No growth after 24 hours. 06/06/24 03:36 Blood Culture - Preliminary Blood - Venous No growth after 24 hours. Assessment and Plan (1) Hematochezia: Status: Acute (2) Blood per rectum: Status: Acute Plan 79-year-old female with a PMH significant for HTN, HLD, [id number] type 2 diabetes, hypothyroidism, CKD 3, and hx of sigmoid stricture s/p Vicki procedure (10/06/23) with recent colostomy reversal?(02/25/24) who presents to the ED for evaluation of bloody diarrhea since yesterday afternoon. Pt is admitted to the hospital under observation for treatment and further evaluation of hematochezia concerning for possible GI bleed. Hematochezia Pt with initial periumbilical and suprapubic pain, N/V x1, and bloody diarrhea x5-6 episodes since yesterday afternoon Serial H&H stable 10.8/34.2, 10.9/33.5, and 10.0/32.[address] abd -possible diverticulitis Check GI panel, C diff-negative plan: moniter H&H continue ceftriaxone/flagyl. Abdominal pain CT showing distended gallbladder with gallstones no abd pain Analgesics and antiemetics General surgery -less likely cholecystitis . Question of UTI UA similar to previous Was seen by ID on 06/01/2024 who thought UA showed colonization, not active infection ID did not recommend antibiotics at that time Will hold on abx for now Leukocytosis resolved , blood culture neg@24hrs No indication of active infection at this time HTN BP has been soft, hold lisinopril for now [id number] type [address] on sliding scale insulin Diabetic diet once diet advanced HLD Continue statin Hypothyroidism Continue levothyroxine Full Code DVT Prophylaxis: Pneumatic compression due to hematochezia ongoing need to stay-Gi bleed/ hematochezia concerning for possible GI bleed:monitoring of H&H , iv antibiotics . Quality Stroke Does the patient have a stroke diagnosis?: No VTE Prior VTE?: No VTE Risk Level:: Medical - moderate - high VTE Device Contraindication: N/A - Device Ordered VTE Drug Contraindication: Treatment Not Indicated
[2024-06-07 20:00] VITALS: BP 106/50; PULSE 81; RESP 18; TEMP 36.2; O2SAT 97
[2024-06-07 20:08] LABS: Glucose, Whole Blood 138 mg/dL (60-115)
[2024-06-08] MEDS: Morphine Sulfate 4 MG/ML CARTRIDGE IVPUSH (03:07)
[2024-06-08 03:33] VITALS: BP 126/62; PULSE 73; RESP 18; TEMP 36.4; O2SAT 97
[2024-06-08] MEDS: Levothyroxine Sodium 112 MCG TABLET PO (05:51)
[2024-06-08] MEDS: metroNIDAZOLE 500 MG TABLET PO ×2 (05:51→11:42)
[2024-06-08 07:24] LABS: Glucose, Whole Blood 98 mg/dL (60-115)
[2024-06-08 07:40] VITALS: BP 122/59; PULSE 66; RESP 18; TEMP 36.5; O2SAT 98
[2024-06-08] MEDS: Cholecalciferol (Vitamin D3) 25 MCG TABLET 50 MCG PO (07:54)
[2024-06-08] MEDS: Atorvastatin Calcium 10 MG TABLET PO (07:54)
[2024-06-08] MEDS: Furosemide 40 MG TABLET PO (07:55)
[2024-06-08] MEDS: lisinopriL 10 MG TABLET PO (07:55)
[2024-06-08] MEDS: 0.9 % Sodium Chloride Flush 3 ML SYRINGE IVFLUSH (07:56)
[2024-06-08] MEDS: HYDROcodone Bit/Acetam 5/325 TABLET 1 TAB PO ×2 (08:16→12:15)
[2024-06-08 08:47] LABS: Hematocrit 29.3 % (37.0-47.0); Hemoglobin 9.3 g/dl (12.0-16.0)
--- NOTE | 2024-06-08 09:15 | P.PNGS_ITS ---
Subjective Subjective Date of Service: 06/08/24 <Magalys Olsen PA-C - Last Filed: 06/08/24 09:18> 06/08/24 <Marino Jimenez MD - Last Filed: 06/08/24 13:03> Interval history: Feels ok. Reports mild upper abdominal pain but better. Denies any more BRBPR. <Magalys Olsen PA-C - Last Filed: 06/08/24 09:18> Physical Exam 2 Vital Signs: Vital Signs: Last Vital Signs Temp 97.7 F 06/08/24 07:40 Pulse 66 06/08/24 07:40 Resp 18 06/08/24 07:40 BP 122/59 L 06/08/24 07:40 Pulse Ox 98 06/08/24 07:40 O2 Del Method Room Air 06/08/24 07:40 BMI result Body Mass Index 37.2 <Magalys Olsen PA-C - Last Filed: 06/08/24 09:18> Const: General: comfortable, no acute distress and alert <Magalys Olsen PA-C - Last Filed: 06/08/24 09:18> Orientation/consciousness: patient oriented x3 <KIKA Mari Last Filed: 06/08/24 09:18> Resp: Effort & Inspection: normal respiratory effort <Magalys Olsen PA-C - Last Filed: 06/08/24 09:18> GI: Other: mild diffuse tenderness increased across upper abdomen old colostomy site with dry dressing, silver alginate in place <Magalys Olsen PA-C - Last Filed: 06/08/24 09:18> Inspection: No distended <Magalys Olsen PA-C - Last Filed: 06/08/24 09:18> Palpation (GI): Soft to palpation, no guarding and not rigid <KIKA Mari Last Filed: 06/08/24 09:18> Percussion: Yes normal to percussion <Magalys Olsen PA-C - Last Filed: 06/08/24 09:18> Neuro: General: patient oriented x3 <Magalys Olsen PA-C - Last Filed: 06/08/24 09:18> Objective Data Active Medications Acetaminophen (Acetaminophen 325 Mg Tablet) 650 mg PO Q6H PRN PRN Reason: Pain, Mild 1-3,fever,headache Hydrocodone Bitart/Acetaminophen (Hydrocodone Bit/Acetam 5/325 Tablet) 1 tab PO Q4H PRN PRN Reason: Pain (Scale Score 7-10) Last Admin: 06/08/24 08:16 Dose: 1 tab Documented By: BILL Atorvastatin Calcium (Atorvastatin Calcium 10 Mg Tablet) 10 mg PO DAILY [facility] Last Admin: 06/08/24 07:54 Dose: 10 mg Documented By: NEW Calcium Carbonate (Calcium Carbonate 750 Mg Tab.Chew) 750 mg PO Q4H PRN PRN Reason: Heartburn Ceftriaxone Sodium (Ceftriaxone Sodium 1 Gm Vial) 1 gm IVPUSH Q24H [facility] Last Admin: 06/07/24 14:50 Dose: 1 gm Documented By: SID Dextrose (Dextrose 50 % 25 Gm/50 Ml Syringe) 25 gm IVPUSH Q15M PRN; Protocol PRN Reason: per Hypoglycemia Standing Ord. Furosemide (Furosemide 40 Mg Tablet) 40 mg PO DAILY [facility]; Protocol Last Admin: 06/08/24 07:55 Dose: 40 mg Documented By: NEW Glucose (Glucose Gel 15 Gm Gel..Gram.) 15 gm PO Q15M PRN; Protocol PRN Reason: per Hypoglycemia Standing Ord. Insulin Human Lispro (Insulin Lispro 100 Unit/Ml 3 Ml Vial) 0 unit SUBCUT QIDACHS [facility]; Protocol Last Admin: 06/08/24 07:59 Dose: Not Given Documented By: NEW Non-Admin Reason: No Insulin Coverage Levothyroxine Sodium (Levothyroxine Sodium 112 Mcg Tablet) 112 mcg PO MOTUTHFRSA@0600 [facility] Last Admin: 06/08/24 05:51 Dose: 112 mcg Documented By: ZAC Levothyroxine Sodium (Levothyroxine Sodium 112 Mcg Tablet) 224 mcg PO SUWE@0600 [facility] Lisinopril (Lisinopril 10 Mg Tablet) 10 mg PO DAILY [facility]; Protocol Last Admin: 06/08/24 07:55 Dose: 10 mg Documented By: NEW Magnesium Hydroxide (Milk Of Magnesia 30 Ml Oral.Susp) 30 ml PO DAILY PRN PRN Reason: Constipation Melatonin (Melatonin 3 Mg Tablet) 6 mg PO BEDTIME PRN PRN Reason: Insomnia Metronidazole (Metronidazole 500 Mg Tablet) 500 mg PO Q8H [facility] Last Admin: 06/08/24 05:51 Dose: 500 mg Documented By: ZAC Ondansetron HCl (Ondansetron Hcl 4 Mg/2 Ml Vial) 4 mg IVPUSH Q8H PRN PRN Reason: Nausea and Vomiting Sodium Chloride (0.9 % Sodium Chloride Flush 3 Ml Syringe) 3 ml IVFLUSH QSHIFT [facility] Last Admin: 06/08/24 07:56 Dose: 3 ml Documented By: NEW Tramadol HCl (Tramadol Hcl 50 Mg Tablet) 50 mg PO DAILY PRN PRN Reason: Pain, Moderate(Pain Scale 4-6) Vitamin D (Cholecalciferol (Vitamin D3) 25 Mcg Tablet) 50 mcg PO DAILY [facility] Last Admin: 06/08/24 07:54 Dose: 50 mcg Documented By: NEW <Magalys Olsen PA-C - Last Filed: 06/08/24 09:18> Labs CBC & Chem 7: 06/08/24 08:15 06/07/24 05:51 <Magalys Olsen PA-C - Last Filed: 06/08/24 09:18> Labs: Laboratory Results - last 24 hr 06/07/24 06/07/24 06/07/24 12:03 16:01 19:56 POC Glucose 107 108 138 H 06/08/24 07:12 POC Glucose 98 <Magalys Olsen PA-C - Last Filed: 06/08/24 09:18> Microbiology Microbiology Results: Microbiology 06/06/24 01:50 Urine Culture - Preliminary Urine clean catch - Clean Catch Midstream Klebsiella pneumoniae Proteus mirabilis 06/06/24 03:36 Blood Culture - Preliminary Blood - Venous No growth after 48 hours. 06/06/24 03:36 Blood Culture - Preliminary Blood - Venous No growth after 48 hours. <Magalys Olsen PA-C - Last Filed: 06/08/24 09:18> Procedures Date of Service Date of Service: 06/08/24 <Magalys Olsen PA-C - Last Filed: 06/08/24 09:18> 06/08/24 <Marino Jimenez MD - Last Filed: 06/08/24 13:03> Progress Note: A&P Assessment and plan (1) Hematochezia: Status: Acute <Magalys Olsen PA-C - Last Filed: 06/08/24 09:18> Assessment and Plan: Has had bloody diarrhea. C diff and stool panel negative. No further episodes since admission. Clinically appearing well with a benign abd exam. Cont conservative measures. Followed by GI as well for possible colonoscopy. < Magalys Olsen PA-C - Last Filed: 06/08/24 09:18> Time Spent With Patient Time: Total time managing care of this patient today ____ minutes. <Magalys Olsen PA-C - Last Filed: 06/08/24 09:18> Quality Stroke Does the patient have a stroke diagnosis?: No <Magalys Olsen PA-C - Last Filed: 06/08/24 09:18> VTE Prior VTE?: No <Magalys Olsen PA-C - Last Filed: 06/08/24 09:18> VTE Risk Level:: Medical - moderate - high <Magalys Olsen PA-C - Last Filed: 06/08/24 09:18> VTE Device Contraindication: N/A - Device Ordered <Magalys Olsen PA-C - Last Filed: 06/08/24 09:18> VTE Drug Contraindication: Treatment Not Indicated <Magalys Olsen PA-C - Last Filed: 06/08/24 09:18>
--- NOTE | 2024-06-08 10:39 | MHC.CM.PN ---
Per MD patient medically cleared for dc home w/ resumption of [facility] for SN (wound care) and PT. DC plan reviewed w/ patient, S.O. and MD at bedside. [facility] updated. S.O. will transport.
[2024-06-08 11:10] LABS: Glucose, Whole Blood 163 mg/dL (60-115)
--- NOTE | 2024-06-08 11:35 | PM.DS ---
DS: Providers Provider Date of Service: 06/08/24 Date of admission: 06/06/24 08:59 Date of discharge: 06/08/24 Primary care physician: Ap Deal MD Consults: 06/06/24 09:14 Consult to Gastroenterology Routine Consulting Provider: Myron Riojas Reason for consultation: Hematochezia Consult to General Surgery Routine Consulting Provider: 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 Pt reports symptoms began yesterday proximally 3 in the afternoon when she experienced 1 episode of nausea and vomiting and periumbilical and suprapubic cramping/abdominal pain. Pt went to the bathroom and had a bowel movement that began normally but soon transitioned to loose/watery diarrhea with bright red blood. Pt denies experiencing similar symptoms before. Reports a total of 5-6 episodes of bloody diarrhea, including last 1 while in the ED. Denies any rectal pain. Denies any lightheadedness or dizziness. No SOB or difficulty breathing. Denies chest pain/pressure, palpitations. Denies dysuria or polyuria. Of note, pt was recently admitted to the hospital on 05/31-06/02 for vaginal burning due to atrophic vaginitis. Was also initially treated for multidrug resistant bacteremia and possible acute diverticulitis with IV meropenem. However, pt was seen by infectious disease who felt she did not have an active infection and recommended holding on antibiotics. In the ED pt with slightly soft diastolic BP as low as 124/42. Labs were significant for stool positive for occult blood, leukocytosis of 14.5, stable normocytic anemia of 10.8/34.2 with repeats stable at 10 0.9/33.5, and 10.0/32.6, and creatinine 1.47. No significant electrolyte anomalies. Lactic acid WNL at 2.0. Chronic mild transaminitis of AST 43 and ALT 35. UA similar to prior with positive nitrites, leukocyte esterase, WBCs, and bacteria 4+. CT?of abdomen/pelvis showed distended gallbladder with gallstones. Also found no significant change in mild to moderate fat stranding in vicinity of sigmoid colon anastomosis, and nonprogressive left ventral abdominal wall irregular subcutaneous fluid collection. Pt was treated in the ED with IVF, ondansetron, morphine, and meropenem. Pt is admitted to the hospital under observation for treatment and further evaluation of hematochezia concerning for possible GI bleed. Hospital course: Hematochezia,abd pain , diarrhae : c diff and GiPanel negative , diarrhae also resolved as well as no new bleeding overnight ,abdominal pain also improved significantly: Abdominal CT reviewed by surgery and GI: Less likely cholecystitis clinically, possible acute diverticulitis: Patient was given IV antibiotics-improved as above, blood culture negative, no leukocytosis, no fever, tolerating diet. Abdominal pain also improving significantly. Patient was told to check CBC, CMP outpatient. Will give Ceftin 500 mg p.o. b.i.d. and Flagyl 500 mg p.o. b.i.d. for 7 days. Patient is to follow-up out patiently with GI. melany : improved with hydration , moniter renal function electrolytes outpatient. in addition has ch elevated mild lft-moniter lft's outpatient ,further workup outpatient. last admission admitted for vaginal burning which was due to atrophic vaginitis. Was continued on topical antifungal and steroid as prescribed by emergency response officer. For multidrug resistant bacteriuria treated with IV meropenem was seen by infectious disease who felt that this was not active infection and recommended holding off on antibiotic( urine culture similar this time also, no new symptoms -defer antibiotics ). Morbid obesity: Encouraged to lose weight, cutdown calories. Patient will go home with vna/pt. plan: comeplte Ceftin 500 mg p.o. b.i.d. and Flagyl 500 mg p.o. b.i.d. for 7 days. monitercbc /cmp outpatient follow up with pcp and GI. Above management discussed with the patient in detail length she and her triple valve tester -they both understand and in agreement with the above plan, time spent 40 minutes and 50% time spent on counseling. Staff was present during the conversation. Significant findings: As above. Procedures performed: None. Treatment and response: As above. Complications: None. Time Attestation Total time managing care of this patient today: 40 mintues. Discharge Coordination Time (in mins): 40 min Quality: Safe Use of Opioids Does Pt have an Active Cancer Diagnosis on the Problem List?: No Quality: Stroke Does the patient have a stroke diagnosis?: No Physical Exam Vital Signs: Vital Signs: Last Vital Signs Temp 97.7 F 06/08/24 07:40 Pulse 66 06/08/24 07:40 Resp 18 06/08/24 07:40 BP 122/59 L 06/08/24 07:40 Pulse Ox 98 06/08/24 07:40 O2 Del Method Room Air 06/08/24 07:40 BMI result Body Mass Index 37.2 Appearance: Alert.? Oriented X3.? cvs: rrr, [id number] . res: clear to auscultation . abd: soft ,mild abd pain (as per patient much better than yesterday), bs present. ext pulses present , no cyanosis. neuro: axo3 , nonfocal. DS: Data Data Completed and Pending Completed studies during hospitalization [Text1]: Procedures Bypass Descending Colon to Cutaneous, Open Approach (10/04/23) Dilation of Right Ureter with Intraluminal Device, Via Natural or Artificial Opening Endoscopic (04/25/23) Drainage of Retroperitoneum with Drainage Device, Percutaneous Approach (12/08/21) Excision of Large Intestine, Via Natural or Artificial Opening Endoscopic, Diagnostic (04/25/23) Excision of Sigmoid Colon, Open Approach (10/04/23) Excision of Small Intestine, Open Approach (02/20/24) Extirpation of Matter from Right Ureter, Via Natural or Artificial Opening Endoscopic (04/05/21) Fluoroscopy of Right Kidney, Ureter and Bladder (04/25/23) Introduction of Anesthetic Agent into Peripheral Nerves and Plexi, Percutaneous Approach (02/20/24) Release Peritoneum, Open Approach (02/20/24) Reposition Descending Colon, Open Approach (02/20/24) Labs on day of discharge: Laboratory Results - last 24 hr 06/07/24 06/07/24 06/07/24 12:03 16:01 19:56 Hgb Hct POC Glucose 107 108 138 H 06/08/24 06/08/24 06/08/24 07:12 08:15 11:04 Hgb 9.3 L Hct 29.3 L POC Glucose 98 163 H Preliminary micro results at discharge 06/06/24 01:50 Urine Culture - Preliminary Urine clean catch - Clean Catch Midstream Klebsiella pneumoniae Proteus mirabilis 06/06/24 03:36 Blood Culture - Preliminary Blood - Venous No growth after 48 hours. 06/06/24 03:36 Blood Culture - Preliminary Blood - Venous No growth after 48 hours. Discharge Plan Discharge Anticipated Discharge Date/Time: 06/08/24 11:15 Patient Disposition: Home Health Service Discharge Diagnosis: gib ,acute diverticulitis ,diarrhae Referrals: [facility] [Outside] - 3-5 Days (nursing and physical therapy ) Flex Watkins MD [Physician] - 1 Week Ap Deal MD [Primary Care Provider] - 1 Week Discharge Medications: New metronidazole 500 mg Tablet 500 mg PO Q12H Qty: 14 0RF cefuroxime axetil 500 mg Tablet 500 mg PO Q12H Qty: 14 0RF Continued lisinopril 10 mg tablet 10 mg PO DAILY Qty: 90 1RF (DME) Wheel chair Kit See Rx Instructions .Route Qty: 1 0RF Rx Instructions: As directed; Manual 20 inch travel wheelchair with seat cushion and foot rests; Height 5ft 1.25 inches; Weight 191 lbs; ; QUANTITY OF 1; length of need 99 levothyroxine 112 mcg tablet 224 mcg PO SUWE@0600 Qty: 90 0RF atorvastatin 10 mg tablet 10 mg PO DAILY metformin 500 mg tablet extended release 24 hr 500 mg PO DAILY@1700 furosemide 40 mg tablet 40 mg PO DAILY Qty: 30 0RF acetaminophen 500 mg Tablet 1,000 mg PO Q6H PRN (Reason: Pain) hydrocodone-acetaminophen 5-325 mg tablet 1 tab PO Q4-6H PRN (Reason: Pain (Scale Score 7-10)) Rx Instructions: Partial Fill upon patient request. levothyroxine 112 mcg tablet 112 mcg PO MOTUTHFRSA@0600 tramadol 50 mg tablet 50 mg PO DAILY PRN (Reason: Pain) pyridoxine (vitamin B6) [Vitamin B-6] 100 mg tablet 100 mg PO DAILY cholecalciferol (vitamin D3) 25 mcg (1,000 unit) capsule 50 mcg PO DAILY Discharge Orders: Discharge Order (Routine); Ordered 06/08/24 Ordered By: Clint Webb Diet: Advance to usual diet Activity on Discharge: As tolerated Stand Alone Forms: Patient Portal Discharge page Print Language: Dutch Other Ambulatory Orders: Complete Blood Count no Diff (Routine) Timeframe: 1 Week Facility: [facility] - Location: Laboratory Ordered By: Clint Webb Comprehensive Met. Panel (Routine) Timeframe: 1 Week Facility: [facility] - Location: Laboratory Ordered By: Clint Webb Care Plan Goals: Hematochezia,abd pain , diarrhae : c diff and GiPanel negative , diarrhae also resolved as well as no new bleeding overnight ,abdominal pain also improved significantly: Abdominal CT reviewed by surgery and GI: Less likely cholecystitis clinically, possible acute diverticulitis: Patient was given IV antibiotics-improved as above, blood culture negative, no leukocytosis, no fever, tolerating diet. Abdominal pain also improving significantly. Patient was told to check CBC, CMP outpatient. Will give Ceftin 500 mg p.o. b.i.d. and Flagyl 500 mg p.o. b.i.d. for 7 days. Patient is to follow-up out patiently with GI. last admission admitted for vaginal burning which was due to atrophic vaginitis. Was continued on topical antifungal and steroid as prescribed by emergency response officer. For multidrug resistant bacteriuria and possible acute diverticulitis was treated with IV meropenem was seen by infectious disease who felt that this was not active infection and recommended holding off on antibiotic( urine culture similar this time also, no new symptoms -defer antibiotics ). Patient will go home with vna/pt. Health Concerns: Complete Ceftin 500 mg p.o. b.i.d. and Flagyl 500 mg p.o. b.i.d. for 7 days. If any new symptoms-worsening abdominal pain or fever or diarrhea or bleeding-patient need to go to nearest emergency room. Plan of Treatment: As above Assessment: As above Patient Instructions: Diverticulitis (DC) Discharge Date/Time: 06/08/24 12:58
[2024-06-08] MEDS: cefuroxime axetiL 500 MG TABLET PO (11:42)
[2024-06-08] MEDS: Insulin Lispro 100 UNIT/ML 3 ML VIAL SUBCUT (11:42)
--- NOTE | 2024-06-08 11:49 | W.MHC.F2F ---
Service Date Service Date: 06/08/24 Encounter Date of encounter: 06/08/24 Encounter: gib , diverticulitis Reasons for Services Signs and symptoms assessed: Any new symptoms nausea vomiting abdominal pain diarrhea blood in the stool or fever Reason for long-term: wound care, medication management, medication treatment and teach disease management Reason for physical therapy: home safety and mobility, therapeutic exercises, restore joint function, gait/transfer training, assess need for DME, ADL training, energy conservation and other MD Overseeing Care: Ap Deal Homebound: Leaving the home is medically contraindicated at this time without the asist of a device and/or another person due th the listed conditions above and below. Reason homebound: weakness related to hospital stay Homebound supporting statement: Patient is generalised weak post hospitlisation and need help with going to appointments and labs draws , disease management,as well as PT. Certification: Based on the above findings, I certify that this patient is confined to the home and needs intermittent long-term care, physical therapy and/or speech therapy, or continues to need occupational therapy. The patient is under my care, and I have initiated the establishment of the plan of care. The patient will be followed by a physician who will periodically review the plan of care. Time Spent With Patient Time: Total time managing care of this patient today ____ minutes.
== END 2024-06-08 12:58 | disposition home health service (06) | DRG 378 ==
LOC: HO.ED 06-06 04:06 → HO.EDOVER 06-06 09:35 → HO.S3 06-06 14:03
PROVIDERS: Emergency Medicine; Family Medicine; Physician Assistant Medical; Admitting Provider Student in an Organized Health Care Education/Training Program; Emergency Provider Emergency Medicine Emergency Medical Services; PCP Internal Medicine; Visit Provider Internal Medicine
DX: K92.1 Melena (principal); N17.9 Acute kidney failure, unspecified; N39.0 Urinary tract infection, site not specified; E03.9 Hypothyroidism, unspecified; E66.01 Morbid (severe) obesity due to excess calories; Z68.37 Body mass index [BMI] 37.0-37.9, adult; E78.5 Hyperlipidemia, unspecified; I12.9 Hypertensive chronic kidney disease with stage 1 through stage 4 chronic kidney disease, or unspecified chronic kidney disease; N95.2 Postmenopausal atrophic vaginitis; N18.30 Chronic kidney disease, stage 3 unspecified; E11.22 Type 2 diabetes mellitus with diabetic chronic kidney disease; D63.1 Anemia in chronic kidney disease; Z87.440 Personal history of urinary (tract) infections; Z87.891 Personal history of nicotine dependence; Z79.84 Long term (current) use of oral hypoglycemic drugs; Z79.890 Hormone replacement therapy; Z79.899 Other long term (current) drug therapy
CPT/HCPCS: 36415; 74176; 80048; 80053; 81001; 82272; 82947; 83605; 85014; 85018; 85025; 85027; 87040; 87086; 87088; 87186; 87493; 87507; 97161; 99285; J0696; J2185; J2270; J2405

== ENCOUNTER → 2024-06-06 01:51 | Outpatient (BNV) | payer MEDICARE, SELFPAY | PROVIDERS: Emergency Provider Emergency Medicine Emergency Medical Services; PCP Internal Medicine; Visit Provider Radiology Diagnostic Radiology | DX: K80.01 Calculus of gallbladder with acute cholecystitis with obstruction (principal); K65.4 Sclerosing mesenteritis | CPT/HCPCS: 74176 ==

== ENCOUNTER → 2024-06-06 08:59 | Outpatient (BNV) | payer MEDICARE, SELFPAY | PROVIDERS: Admitting Provider Student in an Organized Health Care Education/Training Program; Emergency Provider Emergency Medicine Emergency Medical Services; PCP Internal Medicine; Visit Provider Internal Medicine | DX: K92.1 Melena (principal) | CPT/HCPCS: 99231; 99239; G0180 ==

== ENCOUNTER → 2024-06-06 08:59 | Outpatient (BNV) | payer MEDICARE, SELFPAY | PROVIDERS: Admitting Provider Student in an Organized Health Care Education/Training Program; Emergency Provider Emergency Medicine Emergency Medical Services; PCP Internal Medicine; Visit Provider Surgery | DX: K62.5 Hemorrhage of anus and rectum (principal) | CPT/HCPCS: 99222; 99232 ==

== ENCOUNTER → 2024-06-06 08:59 | Outpatient (BNV) | payer MEDICARE, SELFPAY | PROVIDERS: Admitting Provider Student in an Organized Health Care Education/Training Program; Emergency Provider Emergency Medicine Emergency Medical Services; PCP Internal Medicine; Visit Provider Internal Medicine Gastroenterology | DX: K92.1 Melena (principal) | CPT/HCPCS: 99223 ==

== ENCOUNTER 2024-06-12 13:29 | Outpatient (AMB) | payer MEDICARE, SELFPAY ==
--- NOTE | 2024-06-12 13:33 | MHC.PC.OV ---
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: No Accompanied by: Spouse Allergies chlorpheniramine [From TUSSIONEX] Allergy (Severe, Verified 06/12/24 13:55) HALLUCINATIONS ciprofloxacin [From CIPRO] Allergy (Severe, Verified 06/12/24 13:55) ANAPHYLAXIS escitalopram [ESCITALOPRAM] Allergy (Severe, Verified 06/12/24 13:55) DISSOCIATIVE REACTION fluoxetine [FLUOXETINE] Allergy (Severe, Verified 06/12/24 13:55) DISSOCIATIVE REACTION hydrocodone [From TUSSIONEX] Allergy (Severe, Verified 06/12/24 13:55) HALLUCINATIONS ibuprofen [IBUPROFEN] Allergy (Severe, Verified 06/12/24 13:55) THROAT SWELLING Sulfa (Sulfonamide Antibiotics) [SULFA (SULFONAMIDE ANTIBIOTICS)] Allergy (Severe, Verified 06/12/24 13:55) DYSPNEA clarithromycin [From BIAXIN] Allergy (Intermediate, Verified 06/12/24 13:55) ABD.PAIN duloxetine [DULOXETINE] Allergy (Intermediate, Verified 06/12/24 13:55) FACIAL NUMBNESS erythromycin base [ERYTHROMYCIN BASE] Allergy (Intermediate, Verified 06/12/24 13:55) RASH Penicillins [PENICILLINS] Allergy (Intermediate, Verified 06/12/24 13:55) RASH tetracycline [TETRACYCLINE] Allergy (Intermediate, Verified 06/12/24 13:55) DIARRHEA codeine [CODEINE] Allergy (Unknown, Verified 06/12/24 13:55) TINNITIS guaifenesin Allergy (Unknown, Verified 06/12/24 13:55) Unknown levofloxacin [From Levaquin] Allergy (Unknown, Verified 06/12/24 13:55) Unknown pregabalin Allergy (Unknown, Verified 06/12/24 13:55) Unknown Medication List - Last Reconciled 06/12/24 by Margarita Powell PA-C acetaminophen 1,000 mg PO Q6H PRN atorvastatin 10 mg PO DAILY cefuroxime axetil 500 mg PO Q12H chair, wheel (Wheel chair) As directed; Manual 20 inch travel wheelchair with seat cushion and foot rests; Height 5ft 1.25 inches; Weight 191 lbs; ; QUANTITY OF 1; length of need 99 cholecalciferol (vitamin D3) 50 mcg PO DAILY furosemide 40 mg PO DAILY hydrocodone-acetaminophen 5-325 mg 1 tab PO Q4-6H PRN levothyroxine 112 mcg PO MOTUTHFRSA@0600 levothyroxine 224 mcg (2 x 112 mcg) PO SUWE@0600 lisinopril 10 mg PO DAILY metformin ER 500 mg PO DAILY@1700 metronidazole 500 mg PO Q12H pyridoxine (vitamin B6) (Vitamin B-6) 100 mg PO DAILY tramadol 50 mg PO DAILY PRN Tobacco use date assessed: 05/30/24 Dental Screening Dental Screen Date: 05/30/24 HPI Diverticulitis HPI Details The patient is a 79-year-old female presenting with a follow-up for a chronic urinary tract infection. She received attention from both urology and infectious disease specialists during a recent hospitalization. The assessment indicated that her urinary complaints were due to a chronic infection linked to a urethral stent and not an acute urinary tract infection. Urine cultures confirmed the growth of bacteria, which has been attributed to colonization caused by the indwelling stent. It was advised by infectious disease that the resolution of the infection would be best achieved through the removal of the stent rather than further antibiotic treatment, which would be ineffective against the colonization. Currently, the patient is awaiting communication and scheduling from her urology team for the stent?s removal procedure. In the interim, she reports no acute symptoms such as fever or exacerbated urinary complaints. Social History - Receives assistance from a Spouse for medication management and scheduling. - Uses a walker and occasionally a wheelchair for transport; does not require a walker at home where she can furniture walk. - Visits from [facility] staff twice weekly for wound care and vital signs monitoring. - Recently underwent surgical interventions but is progressing in post-operative recovery. - Lives at home and utilizes assistive devices primarily for transportation. [facility] Medical History (Updated 06/12/24 @ 14:14 by Margarita Powell PA-C) Anemia Mechanical complication of urethral stent Urinary tract infection due to ESBL Klebsiella Blood per rectum Dysuria Abscess Hospital discharge follow-up Generalized abdominal pain Encounter for wheelchair assessment Diverticular disease Major depressive disorder Heel spur Chronic low back pain Uterine cancer Hyperthyroidism Weakness of both lower extremities Hydroureteronephrosis Wound infection Open wound of back, complicated Cellulitis Frequency of urination Vaginal burning Vaginal itching PMB (postmenopausal bleeding) Cirrhosis of liver Does mobilize using walker PONV (postoperative nausea and vomiting) Left foot drop Fatty liver Fibromyalgia Neuropathy RBBB Cholelithiasis Staghorn calculus Renal calculus, bilateral Renal calyceal dilation determined by ultrasound UTI (urinary tract infection) Diabetes mellitus, type II Ganglion cyst Plantar fasciitis Anxiety OA (osteoarthritis) Obstructive airway disease Hypercholesterolemia Low back pain Sciatica Hypothyroidism HTN (hypertension) Primary osteoarthritis of right knee Retained ureteral stent Renal stones Staghorn calculus Perirectal abscess Surgical History History of colostomy reversal (02/20/24) History of colectomy (~10/06/23) Status post cystoscopy with ureteral stent placement History of lumbar discectomy History of lumpectomy of both breasts History of cystoscopy History of lithotripsy Hx of colonoscopy (~04/28/23) History of surgery Family History Father Alcohol dependence Mother CHF (congestive heart failure) Cancer of breast Mother No problems noted. Other Alcoholic cirrhosis Substance use disorder Social History Household Members: Significant Other Housing: House Are you a primary companion caregiver to a significant other at home: No Do you presently have visiting nurse or other home services: Yes ([facility]) 75 years or older and lives alone: No Alcohol intake: current Alcohol intake frequency: does not drink Alcohol type: hard liquor Comment: wheelchair for long distances Patient Tobacco Use Status: Former Tobacco user Tobacco use type: Cigarette Years Smoked: 27 e-Cigarette/Vaping Use: Never Used Second Hand Smoke Exposure: Yes Advance Directives Date on File: 04/06/21 service: No Current occupational status: disabled Cognitive needs: Yes (wheelchair) Hearing needs: No Vision needs: Yes (Glasses) Questionnaire PHQ-9 Over the last 2 weeks, how often have you been bothered by any of the following problems? 1. Little interest or pleasure in doing things: not at all 2. Feeling down, depressed, or hopeless: not at all 3. Trouble falling or staying asleep, or sleeping too much: not at all 4. Feeling tired or having little energy: not at all 5. Poor appetite or overeating: not at all 6. Feeling bad about yourself - or that you are a failure or have let yourself or your family down: not at all 7. Trouble concentrating on things, such as reading the newspaper or watching television: not at all 8. Moving or speaking so slowly that other people could have noticed. Or the opposite - being so fidgety or restless that you have been moving around a lot more than usual: not at all 9. Thoughts that you would be better off or of hurting yourself in some way: not at all Total score: 0 Depression Screening Interpretation: Negative Depression Screening Done: Yes 82361 - PHQ-9 Billing: Yes Source: Developed by Drs. Preston Aponte, Jojo Holland, Subhash Richmond and colleagues, with an educational vernon from [employer]. Thrive Questionnaire Date Thrive assessed: 05/30/24 I am a: Patient What is your living situation today?: I have a steady place to live Within the past 12 months, did the food you bought not last and you didn't have the money to get more?: Never true Within the past 12 months, did you worry whether your food would run out before you got money to buy more?: Never true Do you have trouble paying for medicines?: No Do you have trouble getting transportation to medical appointments?: No Do you have trouble paying your heating and electricity bill?: No Do you have trouble taking care of your child, family member or friend?: No Do you have trouble with day-to-day activities such as bathing, preparing meals, shopping, managing finances, etc.?: No Are you currently unemployed and looking for a job?: No Are you interested in more education?: No Please select the resources that you would like help with: None THRIVE Score: 0 AUDIT C Alcohol Use Questionnaire (AUDIT-C) 1. How often do you have a drink containing alcohol?: Never 3. How often do you have six or more drinks on one occasion?: Never Total Score: 0 Score Reviewed/Action Taken: No RAMONE-7 AMB Questionnaire RAMONE-7 Date RAMONE - 7 assessed: 05/30/24 Feeling nervous, anxious, or on edge: 0 = Not at all Not being able to stop or control worryin = Not at all Worrying too much about different things: 0 = Not at all Trouble relaxin = Not at all Being so restless that it is hard to sit still: 0 = Not at all Becoming easily annoyed or irritable: 0 = Not at all Feeling afraid as if something awful might happen: 0 = Not at all Total RAMONE-7 score (0-4 normal; 5-9 mild; 10-14 moderate; 15-21 severe): 0 Source: Developed by Drs. Preston Aponte, Jojo Holland, Subhash Richmond and colleagues, with an educational vernon from [employer]. RAMONE-7 Assessment Billing RAMONE-7 Assessment Tool: RAMONE-7 Assessment 59784 Review of Systems Const Details: - Genitourinary: Reports burning urination previously, which has improved. - Skin: Reports healing wound with minimal drainage. Physical exam (Primary Care) Vital Signs: Last Vital Signs Temp 98.2 F 06/12/24 13:34 Pulse 92 06/12/24 13:34 Resp 16 06/12/24 13:34 BP 126/58 L 06/12/24 13:34 Pulse Ox 97 06/12/24 13:34 Oxygen Delivery Method Room Air 06/12/24 13:34 Care Plan Goal for BP management: <130/90 at Goal BMI result Body Mass Index 37.0 BMI Assessment/Plan discussion: High BMI High, discussed plan: lifestyle, weight reduction, dietary, physical activity and alcohol moderation Tobacco/Smoking Status: Tobacco use Status Tobacco use date assessed 05/30/24 06/12/24 13:42 Patient Tobacco Use Status Former Tobacco user 06/12/24 13:42 Tobacco use type Cigarette 06/12/24 13:42 e-Cigarette/Vaping Use Never Used 06/12/24 13:42 PHQ-9: PHQ-9 Score PHQ-9: Total score 0 06/12/24 13:42 Depression Screening Interpretation: Negative Thrive Assessment: Date of Thrive Assessment Date Thrive assessed 05/30/24 06/12/24 13:42 Const Other: Appearance: Alert. Oriented X3. No acute distress. Head: Normal external exam. Normocephalic. Atraumatic. Eyes: Pupils are equal, round, and reactive to light. Extraocular movements intact. Conjunctiva and sclera normal. Eyelids normal. Throat: Pharynx normal. Uvula midline. Moist mucous membranes. Neck: Normal inspection. Neck supple. Full range of motion. Cardiovascular: Normal heart rate and rhythm. Respiratory: No respiratory distress. Painless inspiration. Abdomen: Soft and nontender. No distention noted. No organomegaly noted. Back: Full range of motion noted. Skin: Skin warm and dry. Normal skin color. Normal skin turgor. No rashes/lesions/lacerations noted. Wound present to right flank and left anterior abdomen with slight drainage, healing but still leaking a little. No advancing erythema, streaking, induration, fluctuance, or signs of active infection at this time. Extremities: Extremities exhibit normal range of motion. Results Reviewed Results Reviewed: - Labs: Urine culture positive for bacterial growth. Coding Level of Care Code Est Pt Level 4 (94376) Complex EM visit Add On G2211 Diagnoses Mechanical complication of urethral stent T83.193A Anemia D64.9 Additional Codes RAMONE-7 Assessment Billing - RAMONE-7 Assessment Tool: RAMONE-7 Assessment 33440 ([id number]) PHQ-9 - 54461 - PHQ-9 Billing: Yes ([id number]) Assessment & Plan Assessment & Plan (1) Mechanical complication of urethral stent: Code(s): T83.193A - Other mechanical complication of other urinary stent, initial encounter Category: Medical Plan: The infection is linked to the presence of a urethral stent, with removal recommended as a definitive solution. Antibiotics are not indicated, as they are ineffective against colonization. Patient to follow-up with urology as scheduled for ureteral stent removal on 07/30/2024. (2) Anemia: Code(s): D64.9 - Anemia, unspecified Category: Medical Plan: Patient with anemia most likely related for from chronic blood loss with an H&H of 9.3/29.3. Will start patient on ferrous sulfate. Patient denies any black or bloody stools. Condition is chronic and stable will continue to monitor. Plan Plan Patient was informed and verbally consented to the use of an ambient scribe for clinic note documentation during this visit. 1. Chronic Urinary Tract Infection Due To Urethral Stent The infection is linked to the presence of a urethral stent, with removal recommended as a definitive solution. Antibiotics are not indicated, as they are ineffective against colonization. 2. Anemia Due To Chronic Blood Loss Management includes dietary supplementation with ferrous sulfate to address anemia. Monitoring response and dose adjustment based on tolerance to potential side effects are necessary. During the visit, we reviewed the patient?s chronic urinary infection attributed to her indwelling urethral stent. No acute intervention is advised at this time except for arranging removal of the stent, which the infectious disease specialist believes will address the bacterial colonization. We discussed the irrelevant role 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 in treating colonization related to a foreign body. The patient was informed about arranging follow-up through her urology service for the stent's elective removal. Additionally, we addressed her anemia likely stemming from chronic blood loss-related issues. I proposed starting ferrous sulfate supplementation, noting potential gastrointestinal side effects. I instructed on managing supplementation frequency to lessen gastrointestinal effects. Medications: New ferrous sulfate 325 mg PO DAILY 90 tabs 1RF anemia Patient Instructions: - Monitor for any signs of urinary infection, such as fever or increased burning during urination, and report if they occur. - Follow up with urology to schedule stent removal. - Take ferrous sulfate as prescribed to manage anemia and increase iron levels. - Report any significant side effects such as constipation related to iron supplementation. - Attend scheduled follow-ups and communicate any concerns or changes in symptoms as directed by healthcare providers.
[2024-06-12 13:34] VITALS: BP 126/58; PULSE 92; RESP 16; TEMP 36.8; O2SAT 97; BMI 37.0
--- OUTSIDE RECORDS SUMMARY | 2024-06-12 14:44 | XMS_ITS | Clinical Summary ---
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
--- OUTSIDE RECORDS SUMMARY | 2024-06-12 14:45 | XMS_ITS | Clinical Summary ---
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) USE OF ORAL HYPOGLYCEMIC DRUGS Active 02-07 00:00: 00 CORRECTION (CURRENT) USE OF OPIATE ANALGESIC Active 02-07 [...] 10 mg tablet 2023-02 00:00: 00 Yes [id number] 1 tablet DAILY 1 tablet DAILY (route: oral) Med Classific ation: Cardiovas cular Therapy Agents B-complex with vitamin C 400 mcg-500 mg tablet 2023-02 0- 00:00: 00 Yes [id number] 1 tablet DAILY 1 tablet DAILY (route: oral) Med Classific ation: Electroly te Balance-N utritiona l Products clindamycin HCl 300 mg capsule 10-27 00:00: 00 11-10 23:59 :00 No [id number] 1 capsule EVERY 6 HOURS 1 capsule EVERY 6 HOURS (route: oral) Med Classific ation: Anti-Infe ctive Agents furosemide 40 mg tablet 2023-02 0 00:00: 00 Yes [id number] 1 tablet DAILY 1 tablet DAILY (route: oral) Med Classific ation: Cardiovas cular Therapy Agents levothyroxi ne 112 mcg tablet 2023-02 00:00: 00 04-25 23:59 :00 No [id number] 1 tablet DAILY 1 tablet DAILY (route: oral) Med Classific ation: Endocrine metformin 500 mg tablet 2023-02 00:00: 00 Yes [id number] 1 tablet DAILY 1 tablet DAILY (route: oral) Med Classific ation: Endocrine Probiotic Acidophilus 250 million cell capsule 2023-02 0 00:00: 00 Yes [id number] 1 capsule DAILY 1 capsule DAILY (route: oral) Med Classific ation: Gastroint estinal Therapy Agents tramadol 50 mg tablet 2023-02 0 00:00: 00 Yes [id number] 1 tablet 3 TIMES DAILY 1 tablet 3 TIMES DAILY (route: oral) Med Classific ation: Analgesic , Anti-infl ammatory or Antipyret ic Vitamin D3 25 mcg (1,000 unit) capsule 2023-02 0 00:00: 00 Yes [id number] 2 capsule DAILY 2 capsule DAILY (route: oral) Med Classific ation: Electroly te Balance-N utritiona l Products acetaminoph en 500 mg tablet 2-24 00:00: 00 Yes [id number] 2 tablet EVERY 6 HOURS 2 tablet EVERY 6 HOURS (route: oral) Med Classific ation: Analgesic , Anti-infl ammatory or Antipyret ic hydrocodone 5 mg-acetamin ophen 325 mg tablet 2 00:00: 00 Yes [id number] 1 tablet EVERY 4 HOURS 1 tablet EVERY 4 HOURS (route: oral) Med Classific ation: Analgesic , Anti-infl ammatory or Antipyret ic levothyroxi ne 112 mcg tablet 04-02 00:00: 00 Yes [id number] 2 tablet DAILY 2 tablet DAILY (route: oral) Med Classific ation: Endocrine levothyroxi ne 112 mcg tablet 04-02 00:00: 00 Yes [id number] 1 tablet DAILY 1 tablet DAILY (route: [...] MAINTAIN SITUATIONAL AWARENESS AND WILL NOTIFY CLINICAL LAUNDRETTE OWNER AND PHYSICIAN/PROVIDER WITH ANY CHANGE IN CONDITION. [code = SKILLED NURSE TO PERFORM ENVIRONMENTAL SAFETY RISK ASSESSMENT AND FALL RISK ASSESSMENT AND PROVIDE INSTRUCTION TO IMPLEMENT ENVIRONMENTAL SAFETY AND FALL PREVENTION STRATEGIES THROUGHOUT THE CERTIFICATION PERIOD. SKILLED NURSE WILL MAINTAIN SITUATIONAL AWARENESS AND WILL NOTIFY CLINICAL LAUNDRETTE OWNER AND PHYSICIAN/PROVIDER WITH ANY CHANGE IN CONDITION.] [...] CARE WILL BE ESTABLISHED THAT MEETS PATIENT'S DETENTION NEEDS AND INCLUDES PATIENT GOAL FOR HOME [...] End Date/Time Encounter Type Admission Type Attending [facility] Care Department Encounter ID Discharge Date Discharge Status Discharge Condition Discharge Reason Percent Goals Met 2023-11-09 00:00:00 2024-07-05 00:00:00 Outpatient RECERTIFIC ATSHAYY MCCANN [facility] [id number] 47.37
== END 2024-06-12 14:11 | disposition home or self-care (01) ==
LOC: HO.HMCSH 13:29
PROVIDERS: PCP Internal Medicine; Visit Provider Physician Assistant Medical
DX: T83.193A Other mechanical complication of other urinary stent, initial encounter (principal); D64.9 Anemia, unspecified

== ENCOUNTER → 2024-06-12 13:29 | Outpatient (BNVA) | payer MEDICARE, SELFPAY | PROVIDERS: PCP Internal Medicine; Visit Provider Physician Assistant Medical | DX: T83.19 Other mechanical complication of other urinary devices and implants (principal); D64.9 Anemia, unspecified | CPT/HCPCS: 96127; 99212 ==

== ENCOUNTER 2024-06-13 17:33 | Emergency (ER) | payer MEDICARE, SELFPAY ==
--- NOTE | ~2024-06-13 | US_ITS ---
CLINICAL HISTORY: right upper quadrant abdominal pain --- Additional Notes or Special Instructions: G B CBD ONLY US abdomen limited Comparison: CT of the abdomen from 06/13/2024. Findings: In the majority of the pancreas is obscured by overlying bowel gas. Imaged aorta measures 1 point 7 cm diameter. Imaged IVC is unremarkable. Liver surface nodularity as can be seen with cirrhosis. Majority of the liver obscured. Increased echogenicity of cholelithiasis of the imaged right kidney. Multiple shadowing stones of the cholelithiasis in the gallbladder lumen. Pharyngeal cap of the gallbladder is partially imaged. No definite gallbladder wall thickening or pericholecystic fluid. Imaged CBD is nondilated measuring 5 mm diameter. Portal vein is mostly obscured no right upper quadrant ascites or right pleural effusion. IMPRESSION: 1. Cholelithiasis. 2. Imaged CBD is nondilated. This document has been electronically signed by: Manjeet Coley MD on 06/13/2024 22:48:39
--- NOTE | ~2024-06-13 | CT_ITS ---
CLINICAL HISTORY: Right upper and left lower abdominal pain CT abdomen and pelvis with contrast Comparison: CT of the abdomen and pelvis from 06/06/2024 Findings: Mild bibasilar atelectasis. Redemonstration of the liver surface nodularity as can be seen with cirrhosis. No defined liver mass by [address] Cholelithiasis again noted. Spleen approaches the upper limits of normal. No change in lipid rich 1 cm adenoma of the left adrenal gland. The right adrenal gland is normal. Mild-moderate volume loss of the pancreas again noted. Redemonstration of multiple bilateral nephrolithiasis. No hydronephrosis at this time, with right-sided double-J ureteral stent in place. Nephrolithiasis of the right kidney measure up to 1.5 cm. No significant change in small cystic lesions in the kidneys. Small intestine is mildly patulous about the mid-lower anastomosis with redemonstration of the thinned anterior abdominal wall and/or restless muscular diastasis measuring 12 cm transverse. No small bowel obstruction. The appendix is not definitively seen. Wall thickening of the large intestine is nonspecific and likely due to colitis or particularly about the rectosigmoid junction and/or anastomosis where there is recurrent and/or persisting inflammatory stranding and fluid. Moderate wall thickening of the urinary bladder is nonspecific and may be due to cystitis, with question small stone in the bladder. The uterus is absent. No adnexal soft tissue mass by CT. No free intraperitoneal air. No drainable abscess by CT. Large hemangioma redemonstrated of the L2. No significant change in mild imaged vertebral height losses. Low bone mineralization suggested. Moderate to severe osteoarthritis of the both hips. Vacuum disc phenomenon facet arthropathy is multifocal in the imaged spine. Blunting of the coccyx appears old. IMPRESSION: 1. Wall thickening of the large intestine is nonspecific and concerning for colitis, including adjacent to the rectosigmoid junction. 2. Liver surface nodularity of the cirrhosis. 3. Cholelithiasis. 4. Redemonstration of bilateral nephrolithiases. Right-sided ureteral stent is in place. No hydronephrosis at this time. 5. Wall thickening of the urinary bladder is nonspecific and may reflect cystitis. This document has been electronically signed by: Manjeet Coley MD on 06/13/2024 23:04:50
[2024-06-13 17:56] VITALS: BP 127/41; PULSE 94; RESP 20; TEMP 36.9; O2SAT 98; BMI 36.7
--- NOTE | 2024-06-13 17:56 | ED.GENADULT ---
HPI - General Adult General Chief complaint: Abdominal Pain Stated complaint: abdominal pain Time Seen by Provider: 06/13/24 21:24 Source: patient, RN notes reviewed and old records reviewed Mode of arrival: ambulatory Limitations: no limitations History of Present Illness ED Provider: Zayda YUAN narrative: 79-year-old female with a past medical history significant for hypertension, hyperlipidemia, diabetes, hypothyroidism, chronic kidney disease, heartburn procedure and status post colostomy reversal in February of this year, flank abscess due to ureteral source with right ureteral stent in place and due to be removed next month presenting for evaluation abdominal pain. the patient was admitted here twice in the last few weeks, 1 for atrophic vaginitis and more recently for diarrhea and concern for GI bleed. She was discharged on 06/08/2024 with a 1 week course of cefuroxime and metronidazole her workup on that visit included a CT scan that showed distended gallbladder with gallstones as well as possible diverticulitis. She has had stable H&H and was ultimately discharged home. She reports that her diarrhea has returned after initially subsiding she has occasional lightheadedness denies any chest pain, shortness of breath, fevers but endorses chills Related Data Home Medications ?Medication ?Instructions ?Recorded ?Confirmed atorvastatin 10 mg tablet 10 mg PO DAILY 04/05/21 06/12/24 metformin 500 mg tablet,extended 500 mg PO DAILY@1700 04/06/21 06/12/24 release 24 hr acetaminophen 500 mg tablet 1,000 mg PO Q6H PRN Pain 10/04/23 06/12/24 hydrocodone 5 mg-acetaminophen 325 1 tab PO Q4-6H PRN Pain (Scale 03/29/24 06/12/24 mg tablet Score 7-10) pyridoxine (vitamin B6) 100 mg 100 mg PO DAILY 04/11/24 06/12/24 tablet (Vitamin B-6) tramadol 50 mg tablet 50 mg PO DAILY PRN Pain 04/11/24 06/12/24 cholecalciferol (vitamin D3) 25 50 mcg PO DAILY 05/19/24 06/12/24 mcg (1,000 unit) capsule levothyroxine 112 mcg tablet 112 mcg PO MOTUTHFRSA@0600 05/31/24 06/12/24 Previous Rx's ?Medication ?Instructions ?Recorded furosemide 40 mg tablet 40 mg PO DAILY #30 tabs 12/16/21 lisinopril 10 mg tablet 10 mg PO DAILY #90 tabs 03/12/24 chair, wheel (Wheel chair) #1 ea 04/16/24 levothyroxine 112 mcg tablet 224 mcg (2 x 112 mcg) PO SUWE@0600 05/25/24 #90 tabs cefuroxime axetil 500 mg tablet 500 mg PO Q12H #14 tabs 06/08/24 metronidazole 500 mg tablet 500 mg PO Q12H #14 tabs 06/08/24 ferrous sulfate 325 mg (65 mg 325 mg PO DAILY anemia #90 tabs 06/12/24 iron) tablet Allergies Allergy/AdvReac Type Severity Reaction Status Date / Time chlorpheniramine Allergy Severe HALLUCINATI Verified 06/13/24 17:59 [From TUSSIONEX] ONS ciprofloxacin [From CIPRO] Allergy Severe ANAPHYLAXIS Verified 06/13/24 17:59 escitalopram [ESCITALOPRAM] Allergy Severe DISSOCIATIVE Verified 06/13/24 17:59 REACTION fluoxetine [FLUOXETINE] Allergy Severe DISSOCIATIVE Verified 06/13/24 17:59 REACTION hydrocodone [From TUSSIONEX] Allergy Severe HALLUCINATI Verified 06/13/24 17:59 ONS ibuprofen [IBUPROFEN] Allergy Severe THROAT Verified 06/13/24 17:59 SWELLING Sulfa (Sulfonamide Allergy Severe DYSPNEA Verified 06/13/24 17:59 Antibiotics) [SULFA (SULFONAMIDE ANTIBIOTICS)] clarithromycin [From BIAXIN] Allergy Intermediate ABD.PAIN Verified 06/13/24 17:59 duloxetine [DULOXETINE] Allergy Intermediate FACIAL Verified 06/13/24 17:59 NUMBNESS erythromycin base Allergy Intermediate RASH Verified 06/13/24 17:59 [ERYTHROMYCIN BASE] Penicillins [PENICILLINS] Allergy Intermediate RASH Verified 06/13/24 17:59 tetracycline [TETRACYCLINE] Allergy Intermediate DIARRHEA Verified 06/13/24 17:59 codeine [CODEINE] Allergy Unknown TINNITIS Verified 06/13/24 17:59 guaifenesin Allergy Unknown Unknown Verified 06/13/24 17:59 levofloxacin [From Levaquin] Allergy Unknown Unknown Verified 06/13/24 17:59 pregabalin Allergy Unknown Unknown Verified 06/13/24 17:59 Review of Systems Constitutional: Constitutional: Denies body ache(s), Reports chills, Denies fever(s) and Denies headache(s) Eyes: Eyes: Denies blurry vision ENT: Denies vertigo, Denies dizziness and Denies headache(s) Cardiovascular: Cardiovascular: Denies chest pain, Reports lightheadedness, Denies palpitations and Denies dyspnea Respiratory: Respiratory: Denies chest congestion, Denies cough and Denies dyspnea Gastrointestinal: Gastrointestinal: Reports abdominal pain, Denies melena, Denies hematochezia, Reports diarrhea, Reports loose stools, Denies nausea and Denies vomiting Musculoskeletal: Musculoskeletal: Denies back pain and Denies myalgias Integumentary/Breasts: Skin/Breast: Denies rash Neurologic: Denies vertigo, Denies dizziness and Denies headache(s) Psychiatric: Psychiatric: Denies anxiety Endocrine: Endocrine: Denies palpitations [facility] Past Medical History Medical History (Updated 06/14/24 @ 00:07 by Gilbert Priest) Anemia Mechanical complication of urethral stent Urinary tract infection due to ESBL Klebsiella Blood per rectum Dysuria Abscess Hospital discharge follow-up Generalized abdominal pain Encounter for wheelchair assessment Diverticular disease Major depressive disorder Heel spur Chronic low back pain Uterine cancer Hyperthyroidism Weakness of both lower extremities Hydroureteronephrosis Wound infection Open wound of back, complicated Cellulitis Frequency of urination Vaginal burning Vaginal itching PMB (postmenopausal bleeding) Cirrhosis of liver Does mobilize using walker PONV (postoperative nausea and vomiting) Left foot drop Fatty liver Fibromyalgia Neuropathy RBBB Cholelithiasis Staghorn calculus Renal calculus, bilateral Renal calyceal dilation determined by ultrasound UTI (urinary tract infection) Diabetes mellitus, type II Ganglion cyst Plantar fasciitis Anxiety OA (osteoarthritis) Obstructive airway disease Hypercholesterolemia Low back pain Sciatica Hypothyroidism HTN (hypertension) Primary osteoarthritis of right knee Retained ureteral stent Renal stones Staghorn calculus Perirectal abscess Surgical History History of colostomy reversal (02/20/24) History of colectomy (~10/06/23) Status post cystoscopy with ureteral stent placement History of lumbar discectomy History of lumpectomy of both breasts History of cystoscopy History of lithotripsy Hx of colonoscopy (~04/28/23) History of surgery Family History Family History Father Alcohol dependence Mother CHF (congestive heart failure) Cancer of breast Mother No problems noted. Other Alcoholic cirrhosis Substance use disorder Social History Social History Household Members: Significant Other Housing: House Are you a primary care process manager to a significant other at home: No Do you presently have visiting nurse or other home services: Yes (vna) 75 years or older and lives alone: No Alcohol intake: current Alcohol intake frequency: does not drink Alcohol type: hard liquor Comment: wheelchair for long distances Patient Tobacco Use Status: Former Tobacco user Tobacco use type: Cigarette Years Smoked: 27 e-Cigarette/Vaping Use: Never Used Second Hand Smoke Exposure: Yes Advance Directives Date on File: 04/06/21 service: No Current occupational status: disabled Cognitive needs: Yes (wheelchair) Hearing needs: No Vision needs: Yes (Glasses) Physical Exam ED Vital Signs: Vital Signs - 24 hr 06/13/24 17:56 06/13/24 20:58 06/13/24 22:53 Temperature 98.4 F 98.3 F 98.2 F Pulse Rate 94 84 89 Respiratory Rate 20 20 18 Blood Pressure 127/41 L 149/49 H 120/46 L Pulse Oximetry 98 95 98 Oxygen Delivery Method Room Air Room Air Room Air 06/14/24 00:13 Temperature 98.2 F Pulse Rate 89 Respiratory Rate 18 Blood Pressure 120/46 L Pulse Oximetry 98 Oxygen Delivery Method Room Air BMI result Body Mass Index 36.7 Const General: healthy appearing, comfortable, no acute distress, alert and awake Nutritional Appearance: well nourished Orientation/consciousness: patient oriented x3 HENMT Head: Yes normocephalic and Yes atraumatic Eyes Eyelids: Yes eyelids normal Conjunctivae: conjunctivae normal Sclerae: sclerae normal Corneas: corneas normal Pupils: Equal, round and reactive pupils present EOM: EOMs intact bilaterally Neck Neck: Yes full ROM Resp Effort & Inspection: normal respiratory effort, able to speak in complete sentences, no audible wheezes and not labored Auscultation: clear to auscultation bilaterally Cardio Rate: regular rate Rhythm: regular rhythm GI Other: large midline surgical scar healing wound from previous colostomy in left lower abdomen. no surrounding erythema Inspection: No distended Palpation (GI): Soft to palpation, not firm, Tenderness to palpation present (GI) in the LLQ and in the RUQ; not in the epigastrum, not in the RLQ and not in the LUQ, Guarding due to palpation present (GI) in the LLQ and in the RUQ; not in the RLQ and not in the LUQ and not rigid Skin General skin exam: elasticity normal Neuro General: patient oriented x3 Cranial nerves: Yes Equal, round and reactive pupils present and Yes Bilaterally intact EOM present Cognition (Neuro): normal cognition Extrem Other: Moving all extremities well without any obvious deformities Course Course Course Narrative: This is a Rapid Medical Exam performed in triage by Kika Arora PA-C. Full HPI, ROS and PE to be performed by primary ED provider. 79 yo female with PMHx of presenting to the ED c/o abdominal pain, headache, nausea and diarrhea that started this morning (06/13). She states she is experiencing dizziness and lightheadedness where the room is spinning. She reports she was recently hospitalized and [place] [facility] [place] and is currently on abx (flagyl, cefuroxime) due to UTI and vaginitis. She states her diarrhea and abdominal pain has worsened since starting her abx treatment. She states this abdominal pain is worse than what she usually experiences. PE: abdomen soft, diffusely tender with no rebound or guarding Plan: labs, EKG, UA, C.Diff PCR Reevaluation(s) Reevaluation #1: discussed patient's workup with her, her CT scan shows colitis. She is already on the appropriate antibiotic cefuroxime. She was negative for C diff. She reports that her symptoms presentation to the ER. She does not feel that she has to have diarrhea. discharged home. I discussed liquid diet and BRAT diet with her, as well as return precautions Time: 00:07 Medications Administered Discontinued Medications Generic Name Dose Route Start Last Admin Trade Name Freq PRN Reason Stop Dose Admin Sodium Chloride 1,000 mls @ 999 mls/hr 06/13/24 21:45 06/13/24 23:43 Ns IV 06/13/24 22:45 Infused .Q1H1M NOHELIA Infusion Iohexol 85 ml 06/13/24 22:01 06/13/24 22:02 Iohexol 350 Mg/Ml 100 Ml Infus..Btl IV 06/13/24 22:02 85 ml ONCE ONE Administration Medical Decision Making Medical Decision Making [facility] Narrative: this is a very complicated 79-year-old female presenting for evaluation abdominal pain with diarrhea. She was recently here and had concern for cholecystitis as well as diverticulitis. She reports being compliant with her cefuroxime and metronidazole. Her diarrhea had initially improved and then returned. There is concern for C diff given that she has been on multiple recent antibiotics. A stool study is pending. The patient is quite tender in the right upper quadrant and left lower abdomen. This raises concern again for acute cholecystitis and diverticulitis as well as colitis. Less likely bowel obstruction as she reports diarrhea. She is noted have a leukocytosis of 14.6. She has a stable normocytic anemia. Her hemoglobin today of 11.3 and hematocrit of 34.4 slightly above her previous baseline and could be related to hemoconcentration due to mild dehydration. she does have chronic kidney disease and a BUN today of 21 with a creatinine of 1.33 is consistent with her baseline. No other significant lab abnormalities warranting intervention. Differential Diagnosis Differential Diagnoses: The differential diagnosis associated with the presentation includes As above Admission/Observation Consideration of admission/observation: Escalation of care including admission/observation considered Lab Data [facility] Lab Attestation statement: I reviewed the patient's lab results. as above 06/13/24 18:25 06/13/24 18:25 Labs: Lab Results 06/13/24 06/13/24 Range/Units 18:25 22:05 WBC 14.6 H (4.8-10.8) X10*3/uL RBC 4.12 L (4.20-5.50) X10*6/uL Hgb 11.3 L D (12.0-16.0) g/dl Hct 34.4 L (37.0-47.0) % MCV 83.5 (80.0-98.0) fL MCH 27.4 (27.0-33.0) pg MCHC 32.8 (31.0-35.0) g/dl RDW 17.5 H (11.0-16.0) % Plt Count 286 D (160-400) X10*3/uL MPV 9.5 (9.4-12.3) fL Immature Gran % (Auto) 1.3 H (0.0-0.4) % Neut % (Auto) 69.3 (45-73) % Lymph % (Auto) 20.7 (20-40) % [place] % (Auto) 7.2 (2-11) % Eos % (Auto) 1.1 (0-4) % Baso % (Auto) 0.4 (0-2) % Lymph # (Auto) 3.0 (1.2-4.9) X10*3/uL [place] # (Auto) 1.1 (0.1-1.2) X10*3/uL Eos # (Auto) 0.2 (0.0-0.4) X10*3/uL Baso # (Auto) 0.1 (0.0-0.2) X10*3/uL Abs Immat Gran (auto) 0.19 H (0.00-0.03) X10*3/uL Absolute Neuts (auto) 10.1 H (2.0-8.3) x10*3/uL Absolute Nucleated RBC 0.000 (0.0-0.012) X10*3/uL Nucleated RBC % (auto) 0.0 (0.0-0.2) /100WBC Sodium 139 (135-145) mmol/L Potassium 4.1 (3.3-5.1) mmol/L Chloride 107 (96-108) mmol/L Carbon Dioxide 24 (22-29) mmol/L Anion Gap 12 (12-20) BUN 21 H (9-16) mg/dL Creatinine 1.33 (0.5-1.4) mg/dL Estim Creat Clear Calc 35.7 Estimated GFR 39 Random Glucose 129 H (60-115) mg/dL Calcium 9.8 D (8.4-10.2) mg/dL Magnesium 1.9 (1.6-2.6) mg/dL Total Bilirubin 0.3 (0.0-1.0) mg/dL Direct Bilirubin 0.2 (0.0-0.5) mg/dL AST 44 H (5-31) U/L ALT 26 (0-31) U/L Alkaline Phosphatase 71 (39-117) U/L Troponin I High Sens 3.8 (<3.5-17.0) ng/L Total Protein 7.8 (6.5-8.0) g/dL Albumin 3.8 (3.5-5.0) g/dL Lipase 27 (8-78) U/L C. difficile Tox B Gene NEGATIVE (Negative) Radiology Impression Discussion of test interpretation with radiology: I have reviewed the radiologist's reading. Radiologist Impression: Findings: Mild bibasilar atelectasis. Redemonstration of the liver surface nodularity as can be seen with cirrhosis. No defined liver mass by [address] Cholelithiasis again noted. Spleen approaches the upper limits of normal. No change in lipid rich 1 cm adenoma of the left adrenal gland. The right adrenal gland is normal. Mild-moderate volume loss of the pancreas again noted. Redemonstration of multiple bilateral nephrolithiasis. No hydronephrosis at this time, with right-sided double-J ureteral stent in place. Nephrolithiasis of the right kidney measure up to 1.5 cm. No significant change in small cystic lesions in the kidneys. Small intestine is mildly patulous about the mid-lower anastomosis with redemonstration of the thinned anterior abdominal wall and/or restless muscular diastasis measuring 12 cm transverse. No small bowel obstruction. The appendix is not definitively seen. Wall thickening of the large intestine is nonspecific and likely due to colitis or particularly about the rectosigmoid junction and/or anastomosis where there is recurrent and/or persisting inflammatory stranding and fluid. Moderate wall thickening of the urinary bladder is nonspecific and may be due to cystitis, with question small stone in the bladder. The uterus is absent. No adnexal soft tissue mass by CT. No free intraperitoneal air. No drainable abscess by CT. Large hemangioma redemonstrated of the L2. No significant change in mild imaged vertebral height losses. Low bone mineralization suggested. Moderate to severe osteoarthritis of the both hips. Vacuum disc phenomenon facet arthropathy is multifocal in the imaged spine. Blunting of the coccyx appears old. IMPRESSION: 1. Wall thickening of the large intestine is nonspecific and concerning for colitis, including adjacent to the rectosigmoid junction. 2. Liver surface nodularity of the cirrhosis. 3. Cholelithiasis. 4. Redemonstration of bilateral nephrolithiases. Right-sided ureteral stent is in place. No hydronephrosis at this time. 5. Wall thickening of the urinary bladder is nonspecific and may reflect cystitis. This document has been electronically signed by: Manjeet Coley MD on 06/13/2024 23:04:50 Discharge Plan Discharge Clinical Impression: Colitis Patient Disposition: Home, Self-Care Instructions: Colitis (ED) Additional Instructions: your CT scan only showed mild colitis. you are already on the appropriate antibiotic treatment I do recommend that you finish the course that you were prescribed I recommend a liquid diet tomorrow and advance to a BRAT diet consisting of bananas, rice, applesauce, toast diet to help with the diarrhea follow-up with your primary doctor, return for new or worsening symptom Prescriptions: No Action lisinopril 10 mg tablet 10 mg PO DAILY Qty: 90 1RF (DME) Wheel chair Kit See Rx Instructions .Route Qty: 1 0RF Rx Instructions: As directed; Manual 20 inch travel wheelchair with seat cushion and foot rests; Height 5ft 1.25 inches; Weight 191 lbs; ; QUANTITY OF 1; length of need 99 levothyroxine 112 mcg tablet 224 mcg PO SUWE@0600 Qty: 90 0RF atorvastatin 10 mg tablet 10 mg PO DAILY metformin 500 mg tablet extended release 24 hr 500 mg PO DAILY@1700 furosemide 40 mg tablet 40 mg PO DAILY Qty: 30 0RF acetaminophen 500 mg Tablet 1,000 mg PO Q6H PRN (Reason: Pain) hydrocodone-acetaminophen 5-325 mg tablet 1 tab PO Q4-6H PRN (Reason: Pain (Scale Score 7-10)) Rx Instructions: Partial Fill upon patient request. levothyroxine 112 mcg tablet 112 mcg PO MOTUTHFRSA@0600 metronidazole 500 mg Tablet 500 mg PO Q12H Qty: 14 0RF cefuroxime axetil 500 mg Tablet 500 mg PO Q12H Qty: 14 0RF tramadol 50 mg tablet 50 mg PO DAILY PRN (Reason: Pain) pyridoxine (vitamin B6) [Vitamin B-6] 100 mg tablet 100 mg PO DAILY cholecalciferol (vitamin D3) 25 mcg (1,000 unit) capsule 50 mcg PO DAILY ferrous sulfate 325 mg (65 mg iron) tablet 325 mg PO DAILY Qty: 90 1RF Interventions: ED Discharge Assessment Last Done: 06/14/24 00:13 Discharge Date/Time: 06/14/24 00:13 Print Language: Khmer
--- NOTE | 2024-06-13 18:01 | ECG_ITS ---
Test Reason : ABD PAIN Blood Pressure : */* mmHG Vent. Rate : 81 BPM Atrial Rate : 81 BPM P-R Int : 200 ms QRS Dur : 120 ms QT Int : 396 ms P-R-T Axes : 97 36 21 degrees QTcB Int : 460 ms Normal sinus rhythm Right bundle branch block Possible Inferior infarct (cited on or before 24-Apr-2023) Possible Anterior infarct , age undetermined Abnormal ECG When compared with ECG of 16-Feb-2024 11:10, No significant changes seen Referred By: Kika Arora Electronically Signed By: SUSSY BOSS
[2024-06-13 18:30] LABS: MANUAL DIFF FLAG NO
[2024-06-13 18:31] LABS: Basophils Absolute Auto 0.1 X10*3/uL (0.0-0.2); Basophils Percent Auto 0.4 % (0-2); Eosinophils Absolute Auto 0.2 X10*3/uL (0.0-0.4); Eosinophils Percent Auto 1.1 % (0-4); Hematocrit 34.4 % (37.0-47.0); Hemoglobin 11.3 g/dl (12.0-16.0); Imm Gran Abs Auto 0.19 X10*3/uL (0.00-0.03); Imm Gran Pct Auto 1.3 % (0.0-0.4); Lymphocytes Percent Auto 20.7 % (20-40); Mean Corpuscular HGB Conc 32.8 g/dl (31.0-35.0); Mean Corpuscular Hemoglobin 27.4 pg (27.0-33.0); Mean Corpuscular Volume 83.5 fL (80.0-98.0); Mean Platelet Volume 9.5 fL (9.4-12.3); Monocytes Absolute Auto 1.1 X10*3/uL (0.1-1.2); Monocytes Percent Auto 7.2 % (2-11); Neutrophils Absolute Auto 10.1 x10*3/uL (2.0-8.3); Neutrophils Percent Auto 69.3 % (45-73); Platelet Count 286 X10*3/uL (160-400); Red Blood Count 4.12 X10*6/uL (4.20-5.50); Red Cell Distribution Width 17.5 % (11.0-16.0); White Blood Count 14.6 X10*3/uL (4.8-10.8)
[2024-06-13 18:46] LABS: Alanine Aminotransferase 26 U/L (0-31); Albumin Level 3.8 g/dL (3.5-5.0); Alkaline Phosphatase 71 U/L (39-117); Anion Gap 12 (12-20); Aspartate Amino Transferase 44 U/L (5-31); Bilirubin Direct 0.2 mg/dL (0.0-0.5); Bilirubin Total 0.3 mg/dL (0.0-1.0); Blood Urea Nitrogen 21 mg/dL (9-16); Calcium 9.8 mg/dL (8.4-10.2); Carbon Dioxide 24 mmol/L (22-29); Chloride 107 mmol/L (96-108); Creatinine Clr Calc Pharmacy 35.7; Estimated Glomerular Filt Rate 39; Glucose Random 129 mg/dL (60-115); Lipase 27 U/L (8-78); Magnesium 1.9 mg/dL (1.6-2.6); Potassium 4.1 mmol/L (3.3-5.1); Sodium 139 mmol/L (135-145); Total Protein 7.8 g/dL (6.5-8.0)
[2024-06-13 18:53] LABS: Troponin-I High Sensitivity 3.8 ng/L (<3.5-17.0)
--- OUTSIDE RECORDS SUMMARY | 2024-06-13 19:39 | XMS_ITS | Clinical Summary ---
Author Organization Unknown Care Team Providers Care Accounts Administrator Name Role Phone VLAD SERNA, BEAR Unavailable Unavailab ab KOCH RN, ABIEL Unavailable Unavailable JERROD RN, ADMISSION NURSE, MALIKA Unavail able Unavailable ANABELLA RN, SHAYY Unavailable Unavailable Payers Payer Name Policy Type Policy Number Effective Date Expira tion Date MEDICARE - [facility] [id number] 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) USE OF ORAL HYPOGLYCEMIC DRUGS Active 02-07 00:00: 00 RESIDENTIAL (CURRENT) USE OF OPIATE ANALGESIC Active 02-07 [...] 10 mg tablet 2023-02 00:00: 00 Yes [id number] 1 tablet DAILY 1 tablet DAILY (route: oral) Med Classific ation: Cardiovas cular Therapy Agents B-complex with vitamin C 400 mcg-500 mg tablet 2023-02 0- 00:00: 00 Yes [id number] 1 tablet DAILY 1 tablet DAILY (route: oral) Med Classific ation: Electroly te Balance-N utritiona l Products clindamycin HCl 300 mg capsule 10-27 00:00: 00 11-10 23:59 :00 No [id number] 1 capsule EVERY 6 HOURS 1 capsule EVERY 6 HOURS (route: oral) Med Classific ation: Anti-Infe ctive Agents furosemide 40 mg tablet 2023-02 0 00:00: 00 Yes [id number] 1 tablet DAILY 1 tablet DAILY (route: oral) Med Classific ation: Cardiovas cular Therapy Agents levothyroxi ne 112 mcg tablet 2023-02 00:00: 00 04-25 23:59 :00 No [id number] 1 tablet DAILY 1 tablet DAILY (route: oral) Med Classific ation: Endocrine metformin 500 mg tablet 2023-02 00:00: 00 Yes [id number] 1 tablet DAILY 1 tablet DAILY (route: oral) Med Classific ation: Endocrine Probiotic Acidophilus 250 million cell capsule 2023-02 0 00:00: 00 Yes [id number] 1 capsule DAILY 1 capsule DAILY (route: oral) Med Classific ation: Gastroint estinal Therapy Agents tramadol 50 mg tablet 2023-02 0 00:00: 00 Yes [id number] 1 tablet 3 TIMES DAILY 1 tablet 3 TIMES DAILY (route: oral) Med Classific ation: Analgesic , Anti-infl ammatory or Antipyret ic Vitamin D3 25 mcg (1,000 unit) capsule 2023-02 0 00:00: 00 Yes [id number] 2 capsule DAILY 2 capsule DAILY (route: oral) Med Classific ation: Electroly te Balance-N utritiona l Products acetaminoph en 500 mg tablet 2-24 00:00: 00 Yes [id number] 2 tablet EVERY 6 HOURS 2 tablet EVERY 6 HOURS (route: oral) Med Classific ation: Analgesic , Anti-infl ammatory or Antipyret ic hydrocodone 5 mg-acetamin ophen 325 mg tablet 2 00:00: 00 Yes [id number] 1 tablet EVERY 4 HOURS 1 tablet EVERY 4 HOURS (route: oral) Med Classific ation: Analgesic , Anti-infl ammatory or Antipyret ic levothyroxi ne 112 mcg tablet 04-02 00:00: 00 Yes [id number] 2 tablet DAILY 2 tablet DAILY (route: oral) Med Classific ation: Endocrine levothyroxi ne 112 mcg tablet 04-02 00:00: 00 Yes [id number] 1 tablet DAILY 1 tablet DAILY (route: [...] MAINTAIN SITUATIONAL AWARENESS AND WILL NOTIFY CLINICAL FUEL DOCK ATTENDANT AND PHYSICIAN/PROVIDER WITH ANY CHANGE IN CONDITION. [code = SKILLED NURSE TO PERFORM ENVIRONMENTAL SAFETY RISK ASSESSMENT AND FALL RISK ASSESSMENT AND PROVIDE INSTRUCTION TO IMPLEMENT ENVIRONMENTAL SAFETY AND FALL PREVENTION STRATEGIES THROUGHOUT THE CERTIFICATION PERIOD. SKILLED NURSE WILL MAINTAIN SITUATIONAL AWARENESS AND WILL NOTIFY CLINICAL FUEL DOCK ATTENDANT AND PHYSICIAN/PROVIDER WITH ANY CHANGE IN CONDITION.] [...] AGENCY OR PHYSICIAN/PROVIDER OF ANY CONCERNS.] Goal 2024-06-09 Patient Goal - I WANT [...] TO HEAL AND GET BETTER FAST. Goal 2024-06-05 Patient Goal - I WANT TO HEAL AND GET BETTER FAST. Goal 2024-05-03 Patient Goal - I WANT TO HEAL AND GET BETTER FAST. Goal Provider Goal - A PLAN OF CARE WILL BE ESTABLISHED THAT MEETS PATIENT'S [facility] NEEDS AND INCLUDES PATIENT GOAL FOR HOME [...] End Date/Time Encounter Type Admission Type Attending [facility] Care Department Encounter ID Discharge Date Discharge Status Discharge Condition Discharge Reason Percent Goals Met 2024-05-07 00:00:00 2024-07-05 00:00:00 Outpatient RECERTIFIC ATSHAYY MCCANN [facility] [id number] 47.37
--- OUTSIDE RECORDS SUMMARY | 2024-06-13 19:39 | XMS_ITS | Clinical Summary ---
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
[2024-06-13 20:58] VITALS: BP 149/49; PULSE 84; RESP 20; TEMP 36.8; O2SAT 95
[2024-06-13] MEDS: iohexoL 350 MG/ML 100 ML INFUS..BTL 85 ML IV (22:02)
[2024-06-13] MEDS: 0.9 % Sodium Chloride 1,000 ML 999 ML IV (22:09)
[2024-06-13 22:53] VITALS: BP 120/46; PULSE 89; RESP 18; TEMP 36.8; O2SAT 98
[2024-06-13 23:10] LABS: CDiff Gene PCR NEGATIVE (Negative)
[2024-06-14 00:13] VITALS: BP 120/46; PULSE 89; RESP 18; TEMP 36.8; O2SAT 98
== END 2024-06-14 00:13 | disposition home or self-care (01) ==
PROVIDERS: Physician Assistant; Emergency Provider Emergency Medicine; PCP Internal Medicine
DX: K52.9 Noninfective gastroenteritis and colitis, unspecified (principal); R10.2 Pelvic and perineal pain; R42 Dizziness and giddiness; R11.0 Nausea; I45.10 Unspecified right bundle-branch block; R94.31 Abnormal electrocardiogram [ECG] [EKG]; Z79.899 Other long term (current) drug therapy; Z87.891 Personal history of nicotine dependence
CPT/HCPCS: 36415; 74177; 76705; 80048; 80076; 83690; 83735; 84484; 85025; 87493; 93005; 96360; 96361; 99284; 99285; Q9967

== ENCOUNTER → 2024-06-13 18:01 | Outpatient (BNV) | payer MEDICARE, SELFPAY | PROVIDERS: Emergency Provider Emergency Medicine; PCP Internal Medicine; Visit Provider Internal Medicine | DX: I45.10 Unspecified right bundle-branch block (principal) | CPT/HCPCS: 93010 ==

== ENCOUNTER → 2024-06-13 21:37 | Outpatient (BNV) | payer MEDICARE, SELFPAY | PROVIDERS: Emergency Provider Emergency Medicine; PCP Internal Medicine; Visit Provider Radiology Neuroradiology | DX: K74.69 Other cirrhosis of liver (principal); K80.00 Calculus of gallbladder with acute cholecystitis without obstruction | CPT/HCPCS: 74177; 76705 ==

== ENCOUNTER 2024-06-15 10:29 | Outpatient (AMB) | payer MEDICARE, SELFPAY ==
--- OUTSIDE RECORDS SUMMARY | 2024-06-15 11:00 | XMS_ITS | Clinical Summary ---
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
--- NOTE | 2024-06-15 11:01 | A.OFFVIS_ITS ---
Vital Signs 06/15/24 11:11 Height 5 ft 1 in Weight 198 lb 6.656 oz BMI 37.5 BP 120/53 L Blood Pressure Location Lt brachial Position Sitting Pulse 71 Intake Visit Reasons: 1 mth follow up S/P closure of colostomy Intake Note: Patient is seen in office for one month follow up visit, post closure of colostomy. Pt c/o:haling as expected, minimal pain and discharge Sched Wound Center:06/19/24 @11am Printed [employer] Boards Pinner Required: No Accompanied by: Spouse Allergies chlorpheniramine [From TUSSIONEX] Allergy (Severe, Verified 06/15/24 11:02) HALLUCINATIONS ciprofloxacin [From CIPRO] Allergy (Severe, Verified 06/15/24 11:02) ANAPHYLAXIS escitalopram [ESCITALOPRAM] Allergy (Severe, Verified 06/15/24 11:02) DISSOCIATIVE REACTION fluoxetine [FLUOXETINE] Allergy (Severe, Verified 06/15/24 11:02) DISSOCIATIVE REACTION hydrocodone [From TUSSIONEX] Allergy (Severe, Verified 06/15/24 11:02) HALLUCINATIONS ibuprofen [IBUPROFEN] Allergy (Severe, Verified 06/15/24 11:02) THROAT SWELLING Sulfa (Sulfonamide Antibiotics) [SULFA (SULFONAMIDE ANTIBIOTICS)] Allergy (Severe, Verified 06/15/24 11:02) DYSPNEA clarithromycin [From BIAXIN] Allergy (Intermediate, Verified 06/15/24 11:02) ABD.PAIN duloxetine [DULOXETINE] Allergy (Intermediate, Verified 06/15/24 11:02) FACIAL NUMBNESS erythromycin base [ERYTHROMYCIN BASE] Allergy (Intermediate, Verified 06/15/24 11:02) RASH Penicillins [PENICILLINS] Allergy (Intermediate, Verified 06/15/24 11:02) RASH tetracycline [TETRACYCLINE] Allergy (Intermediate, Verified 06/15/24 11:02) DIARRHEA codeine [CODEINE] Allergy (Unknown, Verified 06/15/24 11:02) TINNITIS guaifenesin Allergy (Unknown, Verified 06/15/24 11:02) Unknown levofloxacin [From Levaquin] Allergy (Unknown, Verified 06/15/24 11:02) Unknown pregabalin Allergy (Unknown, Verified 06/15/24 11:02) Unknown Medication List - Last Reconciled 06/15/24 by Marino Jimenez MD acetaminophen 1,000 mg PO Q6H PRN atorvastatin 10 mg PO DAILY cefuroxime axetil 500 mg PO Q12H chair, wheel (Wheel chair) As directed; Manual 20 inch travel wheelchair with seat cushion and foot rests; Height 5ft 1.25 inches; Weight 191 lbs; ; QUANTITY OF 1; length of need 99 cholecalciferol (vitamin D3) 50 mcg PO DAILY ferrous sulfate 325 mg PO DAILY furosemide 40 mg PO DAILY hydrocodone-acetaminophen 5-325 mg 1 tab PO Q4-6H PRN levothyroxine 112 mcg PO MOTUTHFRSA@0600 levothyroxine 224 mcg (2 x 112 mcg) PO SUWE@0600 lisinopril 10 mg PO DAILY metformin ER 500 mg PO DAILY@1700 metronidazole 500 mg PO Q12H pyridoxine (vitamin B6) (Vitamin B-6) 100 mg PO DAILY tramadol 50 mg PO DAILY PRN HPI Comments Details: 79-year-old female returning for final postoperative visit following closure of colostomy. She was admitted recently for blood per rectum with this has subsequently resolved. She denies any abdominal pain and feels her abdominal wounds are healing nicely. She continues to follow up with the [facility] for this. She denies any nausea or vomiting as well. [facility] Medical History Anemia Mechanical complication of urethral stent Urinary tract infection due to ESBL Klebsiella Blood per rectum Dysuria Abscess Hospital discharge follow-up Generalized abdominal pain Encounter for wheelchair assessment Diverticular disease Major depressive disorder Heel spur Chronic low back pain Uterine cancer Hyperthyroidism Weakness of both lower extremities Hydroureteronephrosis Wound infection Open wound of back, complicated Cellulitis Frequency of urination Vaginal burning Vaginal itching PMB (postmenopausal bleeding) Cirrhosis of liver Does mobilize using walker PONV (postoperative nausea and vomiting) Left foot drop Fatty liver Fibromyalgia Neuropathy RBBB Cholelithiasis Staghorn calculus Renal calculus, bilateral Renal calyceal dilation determined by ultrasound UTI (urinary tract infection) Diabetes mellitus, type II Ganglion cyst Plantar fasciitis Anxiety OA (osteoarthritis) Obstructive airway disease Hypercholesterolemia Low back pain Sciatica Hypothyroidism HTN (hypertension) Primary osteoarthritis of right knee Retained ureteral stent Renal stones Staghorn calculus Perirectal abscess Surgical History History of colostomy reversal (02/20/24) History of colectomy (~10/06/23) Status post cystoscopy with ureteral stent placement History of lumbar discectomy History of lumpectomy of both breasts History of cystoscopy History of lithotripsy Hx of colonoscopy (~04/28/23) History of surgery Family History Father Alcohol dependence Mother CHF (congestive heart failure) Cancer of breast Mother No problems noted. Other Alcoholic cirrhosis Substance use disorder Social History Household Members: Significant Other Housing: House Are you a primary children's zoo caretaker to a significant other at home: No Do you presently have visiting nurse or other home services: Yes (vna) 75 years or older and lives alone: No Alcohol intake: current Alcohol intake frequency: does not drink Alcohol type: hard liquor Comment: wheelchair for long distances Patient Tobacco Use Status: Former Tobacco user Tobacco use type: Cigarette Years Smoked: 27 e-Cigarette/Vaping Use: Never Used Second Hand Smoke Exposure: Yes Advance Directives Date on File: 04/06/21 service: No Current occupational status: disabled Cognitive needs: Yes (wheelchair) Hearing needs: No Vision needs: Yes (Glasses) Physical Exam Const General: no acute distress Nutritional Appearance: obese Orientation/consciousness: patient oriented x3 Limitations: wheelchair Resp Effort & Inspection: normal respiratory effort GI Other: Abdominal incisions are clean, dry, and intact with no further open wound. Abdomen is otherwise soft and nondistended. Neuro General: patient oriented x3 Extrem General: Yes normal to inspection Assessment & Plan Assessment & Plan (1) Diverticular disease: Code(s): K57.90 - Diverticulosis of intestine, part unspecified, without perforation or abscess without bleeding Category: Medical Plan 79-year-old female patient returning following following closure of colostomy performed on 02/20/2024. She is now feeling improved with no further abdominal pain, open wound, with discharge or difficulty with bowels. Her wounds are clean, dry, and intact. She will follow-up with the [facility] for her flank wound. She should follow up with our office as needed. Coding Level of Care Code Est Pt Level 3 (27198) Global (83593) Diagnoses Diverticular disease K57.90
[2024-06-15 11:11] VITALS: BP 120/53; PULSE 71; BMI 37.5
== END 2024-06-15 13:37 | disposition home or self-care (01) ==
LOC: HO.HGS 10:30
PROVIDERS: PCP Internal Medicine; Visit Provider Surgery
DX: K57.90 Diverticulosis of intestine, part unspecified, without perforation or abscess without bleeding (principal)
CPT/HCPCS: 99213

== ENCOUNTER → 2024-06-15 10:29 | Outpatient (BNVA) | payer MEDICARE, SELFPAY | PROVIDERS: PCP Internal Medicine; Visit Provider Surgery | DX: K57.90 Diverticulosis of intestine, part unspecified, without perforation or abscess without bleeding (principal) | CPT/HCPCS: 99212 ==

== ENCOUNTER → 2024-07-19 23:59 | Outpatient (BNV) | payer MEDICARE, SELFPAY | PROVIDERS: PCP Internal Medicine; Visit Provider Internal Medicine | DX: I12.9 Hypertensive chronic kidney disease with stage 1 through stage 4 chronic kidney disease, or unspecified chronic kidney disease (principal); E11.22 Type 2 diabetes mellitus with diabetic chronic kidney disease; N18.32 Chronic kidney disease, stage 3b | CPT/HCPCS: G0179 ==

== ENCOUNTER 2024-07-24 11:54 | Outpatient (AMB) | payer MEDICARE, SELFPAY ==
--- NOTE | 2024-07-24 12:01 | MHC.OFFVIS ---
Intake Visit Reasons: Questions on surgical procedure Intake Note: Patient is present for QUESTIONS ON SURGICAL PROCEDURE Urology Medication:VITAMIN B6 Antibiotic Allergy:CIRPOFLOXACIN,SULFA,CLARITHROMYCIN,ERTHROMYCIN,PENICILLINS,LEVOFLOXACIN Blood Thinner:NONE Sr Technical Sales Consultant Required: No Allergies chlorpheniramine (From TUSSIONEX) Allergy (Severe, Verified 07/24/24 12:03) HALLUCINATIONS ciprofloxacin (From CIPRO) Allergy (Severe, Verified 07/24/24 12:03) ANAPHYLAXIS escitalopram (ESCITALOPRAM) Allergy (Severe, Verified 07/24/24 12:03) DISSOCIATIVE REACTION fluoxetine (FLUOXETINE) Allergy (Severe, Verified 07/24/24 12:03) DISSOCIATIVE REACTION hydrocodone (From TUSSIONEX) Allergy (Severe, Verified 07/24/24 12:03) HALLUCINATIONS ibuprofen (IBUPROFEN) Allergy (Severe, Verified 07/24/24 12:03) THROAT SWELLING Sulfa (Sulfonamide Antibiotics) (SULFA (SULFONAMIDE ANTIBIOTICS)) Allergy (Severe, Verified 07/24/24 12:03) DYSPNEA clarithromycin (From BIAXIN) Allergy (Intermediate, Verified 07/24/24 12:03) ABD.PAIN duloxetine (DULOXETINE) Allergy (Intermediate, Verified 07/24/24 12:03) FACIAL NUMBNESS erythromycin base (ERYTHROMYCIN BASE) Allergy (Intermediate, Verified 07/24/24 12:03) RASH Penicillins (PENICILLINS) Allergy (Intermediate, Verified 07/24/24 12:03) RASH tetracycline (TETRACYCLINE) Allergy (Intermediate, Verified 07/24/24 12:03) DIARRHEA codeine (CODEINE) Allergy (Unknown, Verified 07/24/24 12:03) TINNITIS guaifenesin Allergy (Unknown, Verified 07/24/24 12:03) Unknown levofloxacin (From Levaquin) Allergy (Unknown, Verified 07/24/24 12:03) Unknown pregabalin Allergy (Unknown, Verified 07/24/24 12:03) Unknown HPI Comments Details: Xi is a pleasant female. She is a patient of Dr. Wang. She is seen for the following urologic conditions - nephrolithiasis - recurrent UTI Telemedicine Evaluation 15 min Consultation [employer] Video Questions answered about upcoming procedure Planed OR for stent removal with diagnostic ureteroscopy Nephrolithiasis Multiple prior in admission for infection and staghorn - treatment had concurrent abscess 6 months after initial ureteroscopy Intervention - 03/31 right-sided ureteroscopy laser lithotripsy and stent placement - 06/28 completion right ureteroscopy with left ureteroscopy Stone composition - 03/31 Carbonate Apatite (Dahllite) 100% - 06/28 calcium oxalate Imaging - 03/31 CT scan 4 cm right staghorn calculus, 6 mm left Therapeutic plan - suppression antibiotics for recurrent UTI PFSH Medical History Anemia Mechanical complication of urethral stent Urinary tract infection due to ESBL Klebsiella Blood per rectum Dysuria Abscess Hospital discharge follow-up Generalized abdominal pain Encounter for wheelchair assessment Diverticular disease Major depressive disorder Heel spur Chronic low back pain Uterine cancer Hyperthyroidism Weakness of both lower extremities Hydroureteronephrosis Wound infection Open wound of back, complicated Cellulitis Frequency of urination Vaginal burning Vaginal itching PMB (postmenopausal bleeding) Cirrhosis of liver Does mobilize using walker PONV (postoperative nausea and vomiting) Left foot drop Fatty liver Fibromyalgia Neuropathy RBBB Cholelithiasis Staghorn calculus Renal calculus, bilateral Renal calyceal dilation determined by ultrasound UTI (urinary tract infection) Diabetes mellitus, type II Ganglion cyst Plantar fasciitis Anxiety OA (osteoarthritis) Obstructive airway disease Hypercholesterolemia Low back pain Sciatica Hypothyroidism HTN (hypertension) Primary osteoarthritis of right knee Retained ureteral stent Renal stones Staghorn calculus Perirectal abscess Surgical History History of colostomy reversal (02/20/24) History of colectomy (~10/06/23) Status post cystoscopy with ureteral stent placement History of lumbar discectomy History of lumpectomy of both breasts History of cystoscopy History of lithotripsy Hx of colonoscopy (~04/28/23) History of surgery Family History Father Alcohol dependence Mother CHF (congestive heart failure) Cancer of breast Mother No problems noted. Other Alcoholic cirrhosis Substance use disorder Social History Household Members: Significant Other Housing: House Are you a primary hospice care consultant to a significant other at home: No Do you presently have visiting nurse or other home services: Yes (vna) 75 years or older and lives alone: No Alcohol intake: current Alcohol intake frequency: does not drink Alcohol type: hard liquor Comment: wheelchair for long distances Patient Tobacco Use Status: Former Tobacco user Tobacco use type: Cigarette Years Smoked: 27 e-Cigarette/Vaping Use: Never Used Second Hand Smoke Exposure: Yes Advance Directives Date on File: 04/06/21 service: No Current occupational status: disabled Cognitive needs: Yes (wheelchair) Hearing needs: No Vision needs: Yes (Glasses) Review of Systems Const All systems reviewed & are unremarkable except as noted in HPI and below Reports no additional complaints Resp Reports no additional complaints GI Reports no additional complaints Reports as per HPI Musc Reports no additional complaints Physical Exam Telemedicine evaluation Appropriate responses Regular breathing rate and rhythm HEENT Head: Yes normal to inspection Ears: hearing grossly normal bilaterally Eyes General: appearance normal, both eyes and all related structures Neck Neck: Yes normal visual inspection Chest Chest palpation & inspection: normal inspection of the chest Resp Effort & Inspection: normal respiratory effort and able to speak in complete sentences Telehealth Telehealth Telehealth Platform: [employer] Location of provider rendering services: practice address Location of patient: address on file Patient Identification confirmed using: Name, : Yes Telehealth method: voice only Patient verbally consented to treatment: Yes Patient verbally consented to billing insurance company: Yes Patient informed of any privacy concerns related to visit: Yes Minutes spent on Phone/Video with Pt.: 15 Assessment & Plan Assessment & Plan (1) Staghorn calculus: Comment: 10/28 Proteus mirabilis Levaquin resistant Code(s): N20.0 - Calculus of kidney Category: Medical (2) Hydroureteronephrosis: Code(s): N13.30 - Unspecified hydronephrosis Category: Medical Plan Risks, benefits and alternatives to therapy were discussed. These include but are not limited to infection, bleeding, damage to local organs and tissues, need for further interventions. Anesthetic risks regarding cardiac arrhythmia, blood clots, and potential mortality were discussed. The patient understands the typical recovery time and the outpatient nature of the procedure. After consideration of these risks the patient gives full informed consent and they wish to move ahead with the procedure. Cystoscopy, stent removal and retrograde ureteroscopy Patient Instructions: This note is constructed using voice recognition software. While every effort has been made to ensure accuracy outsole cutter machine errors may have been included. Imaging studies, laboratory and physical exam results were discussed and reviewed in detail. No major barriers to patient understanding were identified. An opportunity to ask questions regarding the treatment plan was provided. All questions were answered. The patient expressed understanding and agreement with the above treatment plan. The patient is aware they should contact our office by phone for worsening of their current condition or the appearance of new urologic symptoms. Compliance is encouraged with any medications and followup testing that is ordered. It is a privilege to participate in the urologic care of your patient. If you have any questions or concerns regarding treatment for the above conditions, or other urologic issues, please do not hesitate to contact me. The office telephone contact is [phone]. Sincerely, Dr Jose Reis MD, [facility] - Urology Compassionate Specialist Care for the Genitourinary System Coding Level of Care Code Tele Est Pt Level 3 (06531) Complex EM visit Add On G2211 Diagnoses Staghorn calculus N20.0 Hydroureteronephrosis N13.30
== END 2024-07-24 16:07 | disposition home or self-care (01) ==
LOC: HO.HUSH 11:54
PROVIDERS: PCP Internal Medicine; Visit Provider Urology
DX: N20.0 Calculus of kidney (principal); N13.30 Unspecified hydronephrosis
CPT/HCPCS: 99213; G2211

== ENCOUNTER → 2024-07-24 11:54 | Outpatient (BNVA) | payer MEDICARE, SELFPAY | PROVIDERS: PCP Internal Medicine; Visit Provider Urology | DX: Z13.89 Encounter for screening for other disorder (principal) ==

== ENCOUNTER 2024-07-30 07:43 | Day surgery (SDC) | payer MEDICARE, SELFPAY ==
--- OUTSIDE RECORDS SUMMARY | 2024-06-12 12:34 | XMS_ITS | Clinical Summary ---
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
--- OUTSIDE RECORDS SUMMARY | 2024-06-12 12:34 | XMS_ITS | Clinical Summary ---
Author Organization Unknown Care Team Providers Care Publication Manager Name Role Phone VLAD SERNA, BEAR Unavailable Unavailab ab KOCH RN, ABIEL Unavailable Unavailable JERROD RN, ADMISSION NURSE, MALIKA Unavail able Unavailable ANABELLA RN, SHAYY Unavailable Unavailable Payers Payer Name Policy Type Policy Number Effective Date Expira tion Date MEDICARE - [facility] [id number] [facility] [id number] Problems Condition Name Condition Details Condition Category Status Onset Date Resolution Date Last Treatment Date Treating Clinician Comments ENCNTR FOR SURGICAL AFTCR FOLLOWING SURGERY ON THE DGSTV SYS Active 02-07 00:00: 00 CUTANEOUS ABSCESS OF BACK [ANY PART, EXCEPT BUTTOCK] Active 02-07 00:00: 00 TYPE 2 DIABETES [...] 00 COLOSTOMY STATUS Active 02-07 00:00: 00 UNSPECIFIED MOOD [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 Active 02-07 00:00: 00 UNSPECIFIED RIGHT BUNDLE-BRANC H BLOCK Active 02-07 00:00: 00 FATTY (CHANGE OF) LIVER, NOT ELSEWHERE CLASSIFIED Active 02-07 00:00: 00 FIBROMYALGIA Active 02-07 00:00: 00 OTHER CHRONIC PAIN Active 02-07 00:00: 00 LOW BACK PAIN, UNSPECIFIED Active 02-07 00:00: 00 HYPOTHYROIDI SM, UNSPECIFIED Active 02-07 00:00: 00 MAJOR DEPRESSIVE DISORDER, SINGLE EPISODE, UNSPECIFIED Active 02-07 00:00: 00 ANXIETY DISORDER, UNSPECIFIED Active 02-07 00:00: 00 MIXED HYPERLIPIDEM IA Active 02-07 00:00: 00 OTHER 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 Active 02-07 00:00: 00 UNILATERAL PRIMARY OSTEOARTHRIT IS, RIGHT KNEE Active 02-07 00:00: 00 GASTRO-ESOPH AGEAL REFLUX DISEASE WITHOUT ESOPHAGITIS Active 02-07 00:00: 00 OTHER OBESITY DUE TO EXCESS CALORIES Active 02-07 00:00: 00 BODY MASS INDEX [BMI] 37.0-37.9, ADULT Active 02-07 00:00: 00 PERSONAL HISTORY OF URINARY (TRACT) INFECTIONS Active 02-07 00:00: 00 PERSONAL HISTORY OF MALIGNANT NEOPLASM OF OTH PRT UTERUS Active 02-07 00:00: 00 PERSONAL HISTORY OF NICOTINE DEPENDENCE Active 02-07 00:00: [address] SWEEPER (CURRENT) USE OF ORAL HYPOGLYCEMIC DRUGS Active 02-07 00:00: 00 RETIREMENT (CURRENT) USE OF OPIATE ANALGESIC Active 02-07 [...] 10 mg tablet 2023-02 00:00: 00 Yes [id number] 1 tablet DAILY 1 tablet DAILY (route: oral) Med Classific ation: Cardiovas cular Therapy Agents B-complex with vitamin C 400 mcg-500 mg tablet 2023-02 0- 00:00: 00 Yes [id number] 1 tablet DAILY 1 tablet DAILY (route: oral) Med Classific ation: Electroly te Balance-N utritiona l Products clindamycin HCl 300 mg capsule 10-27 00:00: 00 11-10 23:59 :00 No [id number] 1 capsule EVERY 6 HOURS 1 capsule EVERY 6 HOURS (route: oral) Med Classific ation: Anti-Infe ctive Agents furosemide 40 mg tablet 2023-02 0 00:00: 00 Yes [id number] 1 tablet DAILY 1 tablet DAILY (route: oral) Med Classific ation: Cardiovas cular Therapy Agents levothyroxi ne 112 mcg tablet 2023-02 00:00: 00 04-25 23:59 :00 No [id number] 1 tablet DAILY 1 tablet DAILY (route: oral) Med Classific ation: Endocrine metformin 500 mg tablet 2023-02 00:00: 00 Yes [id number] 1 tablet DAILY 1 tablet DAILY (route: oral) Med Classific ation: Endocrine Probiotic Acidophilus 250 million cell capsule 2023-02 0 00:00: 00 Yes [id number] 1 capsule DAILY 1 capsule DAILY (route: oral) Med Classific ation: Gastroint estinal Therapy Agents tramadol 50 mg tablet 2023-02 0 00:00: 00 Yes [id number] 1 tablet 3 TIMES DAILY 1 tablet 3 TIMES DAILY (route: oral) Med Classific ation: Analgesic , Anti-infl ammatory or Antipyret ic Vitamin D3 25 mcg (1,000 unit) capsule 2023-02 0 00:00: 00 Yes [id number] 2 capsule DAILY 2 capsule DAILY (route: oral) Med Classific ation: Electroly te Balance-N utritiona l Products acetaminoph en 500 mg tablet 2-24 00:00: 00 Yes [id number] 2 tablet EVERY 6 HOURS 2 tablet EVERY 6 HOURS (route: oral) Med Classific ation: Analgesic , Anti-infl ammatory or Antipyret ic hydrocodone 5 mg-acetamin ophen 325 mg tablet 2 00:00: 00 Yes [id number] 1 tablet EVERY 4 HOURS 1 tablet EVERY 4 HOURS (route: oral) Med Classific ation: Analgesic , Anti-infl ammatory or Antipyret ic levothyroxi ne 112 mcg tablet 04-02 00:00: 00 Yes [id number] 2 tablet DAILY 2 tablet DAILY (route: oral) Med Classific ation: Endocrine levothyroxi ne 112 mcg tablet 04-02 00:00: 00 Yes [id number] 1 tablet DAILY 1 tablet DAILY (route: oral) Med Classific ation: Endocrine Immunizations Ordered Immunization Name Filled Immunization Name Date Status Comments Refusal Reason COVID-19, COVID-19 2020-11-07 00:00:00 Vital Signs Vital Name Observation Time Observation Value Commen ts Temperature 2024-06-11 13:31:00.000 97.8 [degF] Temperature 2024-06-09 12:58:00.000 97.8 [degF] Temperature 2024-06-05 13:20:00.000 98.4 [degF] Temperature 2024-05-29 18:25:00.000 97 [degF] Temperature 2024-05-24 17:29:00.000 98 [degF] Temperature 2024-05-22 17:03:00.000 97 [degF] Temperature 2024-05-15 18:08:00.000 98 [degF] Temperature 2024-05-10 19:08:00.000 97.3 [degF] Temperature 2024-05-08 13:09:00.000 97.6 [degF] BMI (%) 2024-06-09 12:58:00.000 37 kg/m2 BMI (%) 2024-06-05 13:20:00.000 36 kg/m2 Height 2024-06-09 12:58:00.000 61 [in_us] Height 2024-06-05 13:20:00.000 61 [in_us] Pulse 2024-06-11 13:31:00.000 60 /min Pulse 2024-06-09 12:58:00.000 76 /min Pulse 2024-06-05 13:20:00.000 80 /min Pulse 2024-05-29 18:25:00.000 76 /min Pulse 2024-05-24 17:29:00.000 76 /min Pulse 2024-05-22 17:03:00.000 70 /min Pulse 2024-05-15 18:08:00.000 76 /min Pulse 2024-05-10 19:08:00.000 74 /min Pulse 2024-05-08 13:09:00.000 62 /min O2 Saturation (%) 2024-06-11 13:31:00.000 98 % O2 Saturation (%) 2024-06-09 12:58:00.000 97 % O2 Saturation (%) 2024-06-05 13:20:00.000 98 % O2 Saturation (%) 2024-05-29 18:25:00.000 97 % O2 Saturation (%) 2024-05-24 17:29:00.000 97 % O2 Saturation (%) 2024-05-22 17:03:00.000 96 % O2 Saturation (%) 2024-05-15 18:08:00.000 97 % O2 Saturation (%) 2024-05-10 19:08:00.000 97 % O2 Saturation (%) 2024-05-08 13:09:00.000 97 % Respirations 2024-06-11 13:31:00.000 18 /min Respirations 2024-06-09 12:58:00.000 20 /min Respirations 2024-06-05 13:20:00.000 18 /min Respirations 2024-05-29 18:25:00.000 18 /min Respirations 2024-05-24 17:29:00.000 18 /min Respirations 2024-05-22 17:03:00.000 18 /min Respirations 2024-05-15 18:08:00.000 18 /min Respirations 2024-05-10 19:08:00.000 18 /min Respirations 2024-05-08 13:09:00.000 18 /min Weight (lbs) 2024-06-09 12:58:00.000 197 [lb_av] Weight (lbs) 2024-06-05 13:20:00.000 194 [lb_av] Systolic Blood Pressure 2024-06-11 13:31:00.000 118 mm [Hg] Systolic Blood Pressure 2024-06-09 12:58:00.000 116 mm [Hg] Systolic Blood Pressure 2024-06-05 13:20:00.000 120 mm [Hg] Systolic Blood Pressure 2024-05-29 18:25:00.000 128 mm [Hg] Systolic Blood Pressure 2024-05-24 17:29:00.000 134 mm [Hg] Systolic Blood Pressure 2024-05-22 17:03:00.000 126 mm [Hg] Systolic Blood Pressure 2024-05-15 18:08:00.000 128 mm [Hg] Systolic Blood Pressure 2024-05-10 19:08:00.000 128 mm [Hg] Systolic Blood Pressure 2024-05-08 13:09:00.000 126 mm [Hg] Diastolic Blood Pressure 2024-06-11 13:31:00.000 60 mm [Hg] Diastolic Blood Pressure 2024-06-09 12:58:00.000 80 mm [Hg] Diastolic Blood Pressure 2024-06-05 13:20:00.000 72 mm [Hg] Diastolic Blood Pressure 2024-05-29 18:25:00.000 [...] MAINTAIN SITUATIONAL AWARENESS AND WILL NOTIFY CLINICAL SCALES INSPECTOR AND PHYSICIAN/PROVIDER WITH ANY CHANGE IN CONDITION. [code = SKILLED NURSE TO PERFORM ENVIRONMENTAL SAFETY RISK ASSESSMENT AND FALL RISK ASSESSMENT AND PROVIDE INSTRUCTION TO IMPLEMENT ENVIRONMENTAL SAFETY AND FALL PREVENTION STRATEGIES THROUGHOUT THE CERTIFICATION PERIOD. SKILLED NURSE WILL MAINTAIN SITUATIONAL AWARENESS AND WILL NOTIFY CLINICAL SCALES INSPECTOR AND PHYSICIAN/PROVIDER WITH ANY CHANGE IN [...] TO HEAL AND GET BETTER FAST. Goal 2024-06-09 Patient Goal - I WANT TO HEAL AND GET BETTER FAST. Goal Patient Goal - I WANT TO HEAL AND GET BETTER FAST. Goal 2024-01-06 Patient Goal - I WANT TO HEAL AND GET BETTER FAST Goal 2024-02-29 Patient Goal - I WANT TO HEAL AND GET BETTER FAST Goal 2024-06-05 Patient Goal - I WANT TO HEAL [...] Notes Progress Notes <paragraph>[Visit Date: 2024 by MALIKA ELDER RN, ADMISSION NURSE]:</paragraph><paragraph>SNV 06/11/24 1. ABNORMAL FINDINGS/SIGNIFICANT CHANGES: ALL VITALS WITHIN SET PARAMETERS OF SYSTEMS WITHIN NORMAL LIMITS 2. CARE COORDINATION DETAILS: NONE NEEDED 3. SKILLED PROCEDURE PERFORMED THIS VISIT: SKIN ASSESSMENT WOUND CARE COMPLETED NO SIGNS AND SYMPTOMS OF INFECTION 4. NEXT PHYSICIAN/PROVIDER APPT: WOUND CLINIC 06/19/24, SURGEON 06/15/24, PCP 06/12/24 5. PLAN/FOLLOW-UP NEEDED FOR NEXT VISIT: SKIN ASSESSMENT INFECTION CONTROL MEASURES ADDRESS ABOVE APPROPRIATE IN NARRATIVE BELOW: PATIENT ALERT ORIENTATED X3 SITTING UP WHEN THIS NURSE ARRIVED DENIES ANY FEVERS CHILLS NAUSEA VOMITING DIARRHEA SHORTNESS OF BREATH CHEST PAIN HYPER OR HYPOGLYCEMIC EPISODES OR SIGNS AND SYMPTOMS PATIENT'S WOUND CARE AND DRESSING CHANGE TOLERATED WELL PATIENT HAS MULTIPLE APPOINTMENTS NOTED ABOVE PATIENT EDUCATED ON SIGNS AND SYMPTOMS OF INFECTION PATIENT VERBALIZED UNDERSTANDING PATIENT EDUCATED ON CALLING [facility] FOR ANY CONCERNS OR CHANGE IN CONDITION WELL NEXT SN VISIT. PATIENT'S LUNG SOUNDS CLEAR NO WHEEZING OR CRACKLES NO LOWER EXTREMITY EDEMA BOWEL SOUNDS X4 LAST BOWEL MOVEMENT TODAY</paragraph> <paragraph>[Visit Date: 2024 by ABIEL KOCH RN]:</paragraph><paragraph>SEE C NOTE</paragraph> Encounters Start Date/Time End Date/Time Encounter Type Admission Type Attending [facility] Care Department Encounter ID Discharge Date Discharge Status Discharge Condition Discharge Reason Percent Goals Met 2023-11-09 00:00:00 2024-07-05 00:00:00 Outpatient RECERTIFIC ATSHAYY MCCANN [facility] [id number] 47.37
[2024-07-26 08:32] VITALS: BMI 37.0
[2024-07-30] VITALS (7 sets, daily range): BP systolic 96–123; BP diastolic 39–57; PULSE 74–87; RESP 15–18; TEMP 36.4–36.9; O2SAT 93–99
--- NOTE | ~2024-07-30 | FL_ITS ---
EXAMINATION: FL GUIDANCE ONLY HISTORY: cystoscopy retrograde with stent removal COMPARISON: Relation is made with a CT of the abdomen and pelvis with contrast dated 06/13/2024. TECHNIQUE: Fluoroscopy time: 21.9 seconds. Cumulative Dose: 10.94 mGy. Images: 4. FINDINGS: The initial image demonstrates opacification of the distal right ureter which is dilated. There is a possible filling defect along the medial wall. Additional images were obtained during removal of a stent. There are filling defects in the calyces consistent with calculi. FL/FL guidance in OR IMPRESSION: Fluoroscopy during procedure. Please see procedure report for additional information. Electronically signed by: Preston Austin MD 07/30/2024 11:44 AM EDT
[2024-07-30] MEDS: Lactated Ringers 1,000 ML 80 ML IVCONT (08:26)
[2024-07-30] MEDS: Albuterol Sulfate (0.083%) 2.5 MG/3 ML VIAL.NEB INHALE (08:34)
[2024-07-30 09:18] LABS: Glucose, Whole Blood 145 mg/dL (60-115)
--- NOTE | 2024-07-30 09:34 | P.CONAN_ITS ---
HPI - Anesthesia Eval Consult details Narrative: cysto stent PMFSH Active Problems Active Problems: All Active Problems (Updated 06/15/24 @ 00:01 by Jasmin Berger) Anemia (Acute) Mechanical complication of urethral stent (Acute) Hematochezia (Acute) Blood per rectum (Acute) Abdominal pain (Acute) Vulvovaginitis (Acute) Dysuria (Acute) Abscess (Acute) Hospital discharge follow-up (Acute) Generalized abdominal pain (Acute) Ureteral stent present (Acute) Encounter for wheelchair assessment (Acute) Major depressive disorder (Acute) Staghorn calculus (Acute) Fibromyalgia (Acute) Diabetes mellitus, type II (Acute) Ganglion cyst (Acute) Heel spur (Acute) Plantar fasciitis (Acute) OA (osteoarthritis) (Acute) Obstructive airway disease (Acute) Chronic low back pain (Acute) RBBB (Acute) Uterine cancer (Acute) HTN (hypertension) (Acute) Hypercholesterolemia (Acute) Hyperthyroidism (Acute) Abdominal wound dehiscence (Acute) Weakness of both lower extremities (Acute) Hydroureteronephrosis (Acute) Postop check (Acute) Atrophic vaginitis (Acute) Renal abscess (Acute) Frequency of urination (Acute) Vaginal burning (Acute) Vaginal itching (Acute) PMB (postmenopausal bleeding) (Acute) Fracture of great toe, left, closed (Acute) Retroperitoneal fluid collection (Acute) Bilateral nephrolithiasis (Acute) Abscess, retroperitoneal (Acute) Renal calyceal dilation determined by ultrasound (Acute) Past Medical History Medical History Anemia Mechanical complication of urethral stent Urinary tract infection due to ESBL Klebsiella Blood per rectum Dysuria Abscess Hospital discharge follow-up Generalized abdominal pain Encounter for wheelchair assessment Diverticular disease Major depressive disorder Heel spur Chronic low back pain Uterine cancer Hyperthyroidism Weakness of both lower extremities Hydroureteronephrosis Wound infection Open wound of back, complicated Cellulitis Frequency of urination Vaginal burning Vaginal itching PMB (postmenopausal bleeding) Cirrhosis of liver Does mobilize using walker PONV (postoperative nausea and vomiting) Left foot drop Fatty liver Fibromyalgia Neuropathy RBBB Cholelithiasis Staghorn calculus Renal calculus, bilateral Renal calyceal dilation determined by ultrasound UTI (urinary tract infection) Diabetes mellitus, type II Ganglion cyst Plantar fasciitis Anxiety OA (osteoarthritis) Obstructive airway disease Hypercholesterolemia Low back pain Sciatica Hypothyroidism HTN (hypertension) Primary osteoarthritis of right knee Retained ureteral stent Renal stones Staghorn calculus Perirectal abscess Family History Family History Father Alcohol dependence Mother CHF (congestive heart failure) Cancer of breast Mother No problems noted. Other Alcoholic cirrhosis Substance use disorder Family history of problems with anesthesia: No Surgical History Surgical History History of colostomy reversal (02/20/24) History of colectomy (~10/06/23) Status post cystoscopy with ureteral stent placement History of lumbar discectomy History of lumpectomy of both breasts History of cystoscopy History of lithotripsy Hx of colonoscopy (~04/28/23) History of surgery History of Problems with Anesthesia: No Social History Social History Household Members: Significant Other Housing: House Are you a primary home care and home health aides teacher to a significant other at home: No Do you presently have visiting nurse or other home services: Yes (vna) Alcohol intake: current Alcohol intake frequency: does not drink Alcohol type: hard liquor Comment: wheelchair for long distances Patient Tobacco Use Status: Former Tobacco user Tobacco use type: Cigarette Years Smoked: 27 e-Cigarette/Vaping Use: Never Used Second Hand Smoke Exposure: No Use of substances other than those prescribed or required for medical reasons: No Have you been hit, kicked, punched, or otherwise hurt by someone within the past year? If so, by whom?: No Advance Directives: No Advance Directives Information Provided: Yes Advance Directives on File: No Advance Directives Date on File: 04/06/21 Patient : No : No Poor oral hygiene: No service: No Current occupational status: disabled Cognitive needs: Yes (wheelchair) Hearing needs: No Vision needs: Yes (Glasses) Meds Allergies Allergy/AdvReac Type Severity Reaction Status Date / Time chlorpheniramine (From Allergy Severe HALLUCINATI Verified 07/24/24 12:03 TUSSIONEX) ONS ciprofloxacin (From CIPRO) Allergy Severe ANAPHYLAXIS Verified 07/24/24 12:03 escitalopram (ESCITALOPRAM) Allergy Severe DISSOCIATIVE Verified 07/24/24 12:03 REACTION fluoxetine (FLUOXETINE) Allergy Severe DISSOCIATIVE Verified 07/24/24 12:03 REACTION hydrocodone (From TUSSIONEX) Allergy Severe HALLUCINATI Verified 07/24/24 12:03 ONS ibuprofen (IBUPROFEN) Allergy Severe THROAT Verified 07/24/24 12:03 SWELLING Sulfa (Sulfonamide Allergy Severe DYSPNEA Verified 07/24/24 12:03 Antibiotics) (SULFA (SULFONAMIDE ANTIBIOTICS)) clarithromycin (From BIAXIN) Allergy Intermediate ABD.PAIN Verified 07/24/24 12:03 duloxetine (DULOXETINE) Allergy Intermediate FACIAL Verified 07/24/24 12:03 NUMBNESS erythromycin base Allergy Intermediate RASH Verified 07/24/24 12:03 (ERYTHROMYCIN BASE) Penicillins (PENICILLINS) Allergy Intermediate RASH Verified 07/24/24 12:03 tetracycline (TETRACYCLINE) Allergy Intermediate DIARRHEA Verified 07/24/24 12:03 codeine (CODEINE) Allergy Unknown TINNITIS Verified 07/24/24 12:03 guaifenesin Allergy Unknown Unknown Verified 07/24/24 12:03 levofloxacin (From Levaquin) Allergy Unknown Unknown Verified 07/24/24 12:03 pregabalin Allergy Unknown Unknown Verified 07/24/24 12:03 Active Medications: Current Medications Lactated Ringer's (Lr) 1,000 mls @ 80 mls/hr IVCONT .[id number] NOHELIA Last Admin: 07/30/24 08:26 Dose: 80 mls/hr Home Medications ?Medication ?Instructions ?Recorded ?Confirmed ?Last Taken ?Type atorvastatin 10 mg tablet 10 mg PO DAILY 04/05/21 05/0 11/0106/05/24 History metformin 500 mg tablet,extended 500 mg PO DAILY@1700 04/06/21 06/15/24 06/05/24 History release 24 hr acetaminophen 500 mg tablet 1,000 mg PO Q6H PRN Pain 0 10/04/23 06/15/24 Unknown History hydrocodone 5 mg-acetaminophen 325 1 tab PO Q4-6H PRN Pain (Scale 03/29/24 06/15/24 Unknown History mg tablet Score 7-10) levothyroxine 112 mcg tablet 112 mcg PO MOTUTHFRSA@060 0 05/31/24 06/15/24 06/05/24 History Exam Height,Weight and Vital Signs: Height 5 ft 1 in Weight 88.904 kg Last Vital Signs Temp 97.6 F 07/30/24 08:23 Pulse 87 07/30/24 08:23 Resp 18 07/30/24 08:23 BP 123/42 L 07/30/24 08:23 Pulse Ox 99 07/30/24 08:23 O2 Del Method Room Air 07/30/24 08:23 Pertinent Lab Results Pertinent Lab Results: Laboratory Tests 07/30/24 09:11 POC Glucose 145 H Airway Mallampati Class: III TM Dist: >3cm Neck ROM: Limited Heart: rrr Lungs: cta Assessment and Plan Assessment Anesthesia Assessment: Anesthesia Plan Discussed and Chart Reviewed Final Anesthetic Review Family History of Problems with Anesthesia: No History of Problems with Anesthesia: No NPO: Yes ASA Class: III Final Preanesthetic Review: No Changes in Pt Med Stat, Meds/Allgs Chart Reviewed, Consent Obtained/Reviewed and Anes Risks/Benef Reviewed Patient Risk: Intermediate Procedure Risk: Low Anesthetic Plan Anesthetic Plan: GA Disposition: Standard PACU
--- NOTE | 2024-07-30 10:01 | MHC.SHP ---
Pre-Procedural Eval Section A - 24 Hr Update-Section A only Date of Service: 07/30/24 The patient is an INPATIENT: No Changes since office visit: No Cold of Flu in the past 2 weeks, No New Medical Problems, No Changes in Medication and No Patient answered all questions The patient has been examined within 24 hours of the surgical procedure. The History & Physical has been completed within 30 days and I have reviewed it.: Yes Section B - Complete if H&P > 30 days Chief Complaint: Other mechanical complication of indwelling ureter Details of Present Illness: cystoscopy, right stent removal, right retrograde, right diagnostic ureteroscopy Allergies: Allergies Allergy/AdvReac Type Severity Reaction Status Date / Time chlorpheniramine (From Allergy Severe HALLUCINATI Verified 07/24/24 12:03 TUSSIONEX) ONS ciprofloxacin (From CIPRO) Allergy Severe ANAPHYLAXIS Verified 07/24/24 12:03 escitalopram (ESCITALOPRAM) Allergy Severe DISSOCIATIVE Verified 07/24/24 12:03 REACTION fluoxetine (FLUOXETINE) Allergy Severe DISSOCIATIVE Verified 07/24/24 12:03 REACTION hydrocodone (From TUSSIONEX) Allergy Severe HALLUCINATI Verified 07/24/24 12:03 ONS ibuprofen (IBUPROFEN) Allergy Severe THROAT Verified 07/24/24 12:03 SWELLING Sulfa (Sulfonamide Allergy Severe DYSPNEA Verified 07/24/24 12:03 Antibiotics) (SULFA (SULFONAMIDE ANTIBIOTICS)) clarithromycin (From BIAXIN) Allergy Intermediate ABD.PAIN Verified 07/24/24 12:03 duloxetine (DULOXETINE) Allergy Intermediate FACIAL Verified 07/24/24 12:03 NUMBNESS erythromycin base Allergy Intermediate RASH Verified 07/24/24 12:03 (ERYTHROMYCIN BASE) Penicillins (PENICILLINS) Allergy Intermediate RASH Verified 07/24/24 12:03 tetracycline (TETRACYCLINE) Allergy Intermediate DIARRHEA Verified 07/24/24 12:03 codeine (CODEINE) Allergy Unknown TINNITIS Verified 07/24/24 12:03 guaifenesin Allergy Unknown Unknown Verified 07/24/24 12:03 levofloxacin (From Levaquin) Allergy Unknown Unknown Verified 07/24/24 12:03 pregabalin Allergy Unknown Unknown Verified 07/24/24 12:03 Review of Systems Sugical H&P ROS: Negative: Constitution, Cardiovascular, Respiratory, Neurological, Psychiatric, Hem-Onc, Allergic/Immunologic, Gastrointestinal, Genitourinary, Musculoskeletal, Integumentary, Endocrine and Eyes/Ears/Nose/Throat Exam Surgical H&P Exam: Normal: HEENT, Normal: Heart, Normal: Lungs, Normal: Extremities, Normal: Abdomen, Normal: Skin and Normal: Neurological Plan Diagnosis/Plan: Unchanged I have reviewed the history and physical and performed a pertinent physical examination on my patient. No changes have occurred unless specified. Time Spent With Patient Time: Total time managing care of this patient today ____ minutes.
[2024-07-30] MEDS: Clindamycin Phosphate/D5W 600 MG/50 ML PIGGYBACK 100 MG IV (10:45)
--- NOTE | 2024-07-30 11:22 | W.PM.OPN ---
Operative Note Operative Note Date of Service: 07/30/24 Narrative: PreOperative Diagnosis: right retained ureteric stent Post Operative Diagnosis: right retained ureteric stent Procedure: cystoscopy right retrograde right flexible ureteroscopy with laser lithotripsy stent removal Surgeon: Dr Jose Reis Anesthesia: general Indications for procedure: retained right ureteric stent following question of vesicoureteric fistula Procedure: After informed consent was verified the patient was brought to the operating room and placed in a supine position. Anesthesia was administered per protocol. The patient was prepped and draped in a sterile fashion. Safety pause time-out was performed. Antibiotics being given - Clindamycin secondary to allergies. The patient was in lithotomy position Cystoscopy performed with 22 Serbian cystoscope. Stent seen within bladder. Calcification seen around lower coil of stent. Stent was grasped at the opening of the ureter and attempt made at removal. The stent was able to be removed by 1-2 inches out the urethra but at that point appeared to be held by debris more proximally. Snap was placed on the end of the stent to keep it under mild traction. Rigid ureteroscopy was then performed alongside the indwelling stent. We were able to advance up to the level of the UPJ but unable to advance into the renal pelvis. The stent appeared free of significant debris up until this point. A sensor wire was placed through the rigid scope. The scope was removed. A decision was made to place the flexible ureteral scope alongside. The flexible ureteral scope was then placed over the wire up into the renal pelvis. The renal pelvis was examined and we could see that there was stone debris that was preventing the stent from being removed in the upper pole of the kidney. Using a 272nm holmium laser and laser settings of 1.2 joules and 6 hertz the stone debris preventing the uncoiling of the stent was addressed. This was broken into small pieces. Gentle tension was placed on the stent throughout and eventually after significant stone burden had been broken up with the stent was able to be withdrawn without difficulty. The upper pole was examined and there was significant stone burden likely infectious in response to the presence of the stent. Due to prior issues with significant hematoma following ureteroscopy a decision was made not to attempt to address the stone burden in the setting. The flexible ureteral scope was removed. Her bladder was emptied. Inpatient was awakened without difficulty and transferred in stable condition to the recovery area. Pathology: [] Drains: []
[2024-07-30] MEDS: Phenazopyridine HCL 100 MG TABLET PO (11:48)
== END 2024-07-30 12:38 | disposition home or self-care (01) ==
PROVIDERS: PCP Internal Medicine; Visit Provider Urology
PROC: (CPT 52310; principal; 2024-07-30 09:50)
DX: T83.192A Other mechanical complication of indwelling ureteral stent, initial encounter (principal); N20.0 Calculus of kidney; N13.30 Unspecified hydronephrosis; Z96.0 Presence of urogenital implants; Y73.2 Prosthetic and other implants, materials and accessory gastroenterology and urology devices associated with adverse incidents; E11.9 Type 2 diabetes mellitus without complications; I10 Essential (primary) hypertension; E78.00 Pure hypercholesterolemia, unspecified; D64.9 Anemia, unspecified; C55 Malignant neoplasm of uterus, part unspecified; F32.9 Major depressive disorder, single episode, unspecified; K76.0 Fatty (change of) liver, not elsewhere classified; G89.29 Other chronic pain; M54.50 Low back pain, unspecified; Z90.49 Acquired absence of other specified parts of digestive tract; Z79.84 Long term (current) use of oral hypoglycemic drugs; Z79.899 Other long term (current) drug therapy; Z99.3 Dependence on wheelchair; Z88.0 Allergy status to penicillin; Z88.1 Allergy status to other antibiotic agents; Z88.2 Allergy status to sulfonamides; Z88.6 Allergy status to analgesic agent; Z98.890 Other specified postprocedural states; Z87.891 Personal history of nicotine dependence
CPT/HCPCS: 52353; 82947; C1758; C1769; J0131; J0736; J2003; J2405; J2704; J3010; Q9967

== ENCOUNTER → 2024-07-30 07:43 | Outpatient (BNV) | payer MEDICARE, SELFPAY | PROVIDERS: PCP Internal Medicine; Visit Provider Urology | DX: Z96.0 Presence of urogenital implants (principal) | CPT/HCPCS: 52353; 74420 ==

== ENCOUNTER 2024-07-31 02:32 | Inpatient (IN) | payer MEDICARE, SELFPAY ==
[2024-07-31] VITALS (21 sets, daily range): BP systolic 80–154; BP diastolic 21–103; PULSE 87–118; RESP 14–24; TEMP 36.7–40.4; O2SAT 93–98; BMI 33.7; BMI 34.0
--- NOTE | 2024-07-31 | ECG_ITS ---
Test Reason : RECHECK RYTHM Blood Pressure : */* mmHG Vent. Rate : 104 BPM Atrial Rate : * BPM P-R Int : * ms QRS Dur : 114 ms QT Int : 348 ms P-R-T Axes : * 38 18 degrees QTcB Int : 457 ms Artifact in tracing Probably sinus rhythm with slight NC prolongation Right bundle branch block Cannot rule out Inferior infarct , age undetermined Abnormal ECG When compared with ECG of 31-Jul-2024 03:21, rhythm is sinus. Referred By: Dilshad Tomlinson Electronically Signed By: SUSSY BOSS
--- NOTE | ~2024-07-31 | CT_ITS ---
CLINICAL HISTORY: UTI, spesis and bacteremia CT abdomen and pelvis without contrast Comparison: US - US ABDOMEN LIMITED - 06/13/24 22:[address]/SR - CT ABDOMEN PELVIS W IV CON - 06/13/24 21:55 EDT Findings: Small right effusion with overlying consolidation. Atherosclerotic disease of the coronary arteries. Cirrhotic enlarged liver. Several large gallstones are present within a distended gallbladder. The spleen is enlarged. The adrenal glands and pancreas are stable. Bilateral urinary calculi are present. The previous right-sided double-J ureteral stent has been removed. Mild fullness of the bilateral ureters without ureteral calculus identified. The bladder is partially distended with a focus of gas. No bowel obstruction, free air, or abscess. Nonspecific stranding about the rectosigmoid, within the pericolic gutters, and within a large ventral hernia containing several loops of nonobstructed bowel. Severe atherosclerotic disease. Chronic changes within the spine, stable. Impression: The double-J ureteral stent on the right has been removed. Mild fullness of the bilateral ureters without ureteral calculus. Bilateral renal calculi, similar to prior. Distended gallbladder with several gallstones. Cirrhotic liver. Nonspecific stranding about the abdomen and pelvis as detailed. This document has been electronically signed by: Micah Mcdaniel MD on 08/01/2024 19:26:16
--- NOTE | ~2024-07-31 | XR_ITS ---
CLINICAL HISTORY: fever 1 view chest x-ray. Comparison: None Findings: The lungs are adequately expanded. No focal consolidation. No effusion or pneumothorax. Cardiac and mediastinal contours are within normal limits. No acute osseous abnormality Impression: No acute process. This document has been electronically signed by: Micah Mcdaniel MD on 07/31/2024 06:08:00
--- NOTE | 2024-07-31 02:47 | ECG_ITS ---
Test Reason : WEAKNESS Blood Pressure : */* mmHG Vent. Rate : 80 BPM Atrial Rate : * BPM P-R Int : * ms QRS Dur : 110 ms QT Int : 384 ms P-R-T Axes : * 42 37 degrees QTcB Int : 442 ms Artifact in tracing Undetermined rhythm ; sinus with PACs vs PVCs? Incomplete right bundle branch block Abnormal ECG When compared with ECG of 13-Jun-2024 18:18, due to quality, cannot compare. Referred By: Jessica Holland Electronically Signed By: SUSSY BOSS
--- NOTE | 2024-07-31 02:54 | ED_ITS ---
HPI - General Adult General Chief complaint: Urogenital-Female Stated complaint: weakness Time Seen by Provider: 07/31/24 02:42 Source: EMS Mode of arrival: EMS Limitations: altered mental status History of Present Illness ED Provider: Dr. Jessica Holland HPI narrative: patient comes to the emergency room via ambulance from home. According to EMS, the patient had weakness, had some mechanical falls, landing on her knees. patient's called for a lift assist. However, it was very hard to get the patient up, patient is very weak, very confused. According to the patient's , at baseline patient is alert and oriented x3. The patient's states that yesterday in the morning patient had her ureteral stents removed. Seems that yesterday patient was at her usual baseline. Today, she is confused, only alert to name. Patient denies any chest pain or any shortness of breath, no abdominal pain. Patient answering mostly yes no questions. However, patient is very confused and It is likely that her answers are unreliable Related Data Home Medications ?Medication ?Instructions ?Recorded ?Confirmed atorvastatin 10 mg tablet 10 mg PO DAILY 04/05/2111/01 metformin 500 mg tablet,extended 500 mg PO DAILY@1700 04/06/21 06/15/24 release 24 hr acetaminophen 500 mg tablet 1,000 mg PO Q6H PRN Pain 0 10/04/23 06/15/24 hydrocodone 5 mg-acetaminophen 325 1 tab PO Q4-6H PRN Pain (Scale 03/29/24 06/15/24 mg tablet Score 7-10) levothyroxine 112 mcg tablet 112 mcg PO MOTUTHFRSA@060 0 05/31/24 06/15/24 Previous Rx's ?Medication ?Instructions ?Recorded furosemide 40 mg tablet 40 mg PO DAILY #30 tabs 10/29 lisinopril 10 mg tablet 10 mg PO DAILY #90 tabs 05/01 chair, wheel (Wheel chair) #1 ea 04/16/24 levothyroxine 112 mcg tablet 224 mcg (2 x 112 mcg) PO SUWE@0600 05/25/24 #90 tabs cefuroxime axetil 500 mg tablet 500 mg PO Q12H #14 tab s 06/08/24 metronidazole 500 mg tablet 500 mg PO Q12H #14 tabs ferrous sulfate 325 mg (65 mg 325 mg PO DAILY anemia # 90 tabs 06/12/24 iron) tablet tramadol 50 mg tablet 50 mg PO DAILY PRN Pain #30 tabs 06/19/24 cholecalciferol (vitamin D3) 25 50 mcg (2 x 25 mcg (1, 000 unit)) 07/13/24 mcg (1,000 unit) capsule PO DAILY #90 caps pyridoxine (vitamin B6) 50 mg 100 mg (2 x 50 mg) PO DA TRAV #180 07/23/24 tablet tabs ascorbic acid (vitamin C) 1,000 mg 1,000 mg PO DAILY 9 0 days #90 caps 07/30/24 capsule methenamine hippurate 1 gram tablet 1 g PO DAILY 90 da ys #90 tabs 07/30/24 Allergies Allergy/AdvReac Type Severity Reaction Status Date / Time chlorpheniramine (From Allergy Severe HALLUCINATI Verified 07/31/24 02:52 TUSSIONEX) ONS ciprofloxacin (From CIPRO) Allergy Severe ANAPHYLAXIS Verified 07/31/24 02:52 escitalopram (ESCITALOPRAM) Allergy Severe DISSOCIATIVE Verified 07/31/24 02:52 REACTION fluoxetine (FLUOXETINE) Allergy Severe DISSOCIATIVE Verified 07/31/24 02:52 REACTION hydrocodone (From TUSSIONEX) Allergy Severe HALLUCINATI Verified 07/31/24 02:52 ONS ibuprofen (IBUPROFEN) Allergy Severe THROAT Verified 07/31/24 02:52 SWELLING Sulfa (Sulfonamide Allergy Severe DYSPNEA Verified 07/31/24 02:52 Antibiotics) (SULFA (SULFONAMIDE ANTIBIOTICS)) clarithromycin (From BIAXIN) Allergy Intermediate ABD.PAIN Verified 07/31/24 02:52 duloxetine (DULOXETINE) Allergy Intermediate FACIAL Verified 07/31/24 02:52 NUMBNESS erythromycin base Allergy Intermediate RASH Verified 07/31/24 02:52 (ERYTHROMYCIN BASE) Penicillins (PENICILLINS) Allergy Intermediate RASH Verified 07/31/24 02:52 tetracycline (TETRACYCLINE) Allergy Intermediate DIARRHEA Verified 07/31/24 02:52 codeine (CODEINE) Allergy Unknown TINNITIS Verified 07/31/24 02:52 guaifenesin Allergy Unknown Unknown Verified 07/31/24 02:52 levofloxacin (From Levaquin) Allergy Unknown Unknown Verified 07/31/24 02:52 pregabalin Allergy Unknown Unknown Verified 07/31/24 02:52 Review of Systems 2 Review of Systems: Yes Unobtainable due to mental status [facility] Past Medical History Medical History Anemia Mechanical complication of urethral stent Urinary tract infection due to ESBL Klebsiella Blood per rectum Dysuria Abscess Hospital discharge follow-up Generalized abdominal pain Encounter for wheelchair assessment Diverticular disease Major depressive disorder Heel spur Chronic low back pain Uterine cancer Hyperthyroidism Weakness of both lower extremities Hydroureteronephrosis Wound infection Open wound of back, complicated Cellulitis Frequency of urination Vaginal burning Vaginal itching PMB (postmenopausal bleeding) Cirrhosis of liver Does mobilize using walker PONV (postoperative nausea and vomiting) Left foot drop Fatty liver Fibromyalgia Neuropathy RBBB Cholelithiasis Staghorn calculus Renal calculus, bilateral Renal calyceal dilation determined by ultrasound UTI (urinary tract infection) Diabetes mellitus, type II Ganglion cyst Plantar fasciitis Anxiety OA (osteoarthritis) Obstructive airway disease Hypercholesterolemia Low back pain Sciatica Hypothyroidism HTN (hypertension) Primary osteoarthritis of right knee Retained ureteral stent Renal stones Staghorn calculus Perirectal abscess Surgical History History of colostomy reversal (02/20/24) History of colectomy (~10/06/23) Status post cystoscopy with ureteral stent placement History of lumbar discectomy History of lumpectomy of both breasts History of cystoscopy History of lithotripsy Hx of colonoscopy (~04/28/23) History of surgery Family History Family History Father Alcohol dependence Mother CHF (congestive heart failure) Cancer of breast Mother No problems noted. Other Alcoholic cirrhosis Substance use disorder Social History Social History Household Members: Significant Other Housing: House Are you a primary resident care spec to a significant other at home: No Do you presently have visiting nurse or other home services: Yes (vna) Alcohol intake: current Alcohol intake frequency: does not drink Alcohol type: hard liquor Comment: wheelchair for long distances Patient Tobacco Use Status: Former Tobacco user Tobacco use type: Cigarette Years Smoked: 27 e-Cigarette/Vaping Use: Never Used Second Hand Smoke Exposure: No Advance Directives: Yes Advance Directives on File: Yes Advance Directives Date on File: 04/06/21 Do you have a plan to hurt others: No Plan service: No Current occupational status: disabled Cognitive needs: Yes (wheelchair) Hearing needs: No Vision needs: Yes (Glasses) Physical Exam ED Vital Signs: Vital Signs - 24 hr 07/31/24 02:49 07/31/24 03:16 07/31/24 04:43 Temperature 103.1 F H 104.8 F H Pulse Rate 87 101 H Respiratory Rate 22 H 24 H Blood Pressure 128/38 L 115/42 L Pulse Oximetry 94 93 Oxygen Delivery Method Room Air 07/31/24 04:45 07/31/24 04:50 07/31/24 04:55 Temperature 99.5 F Pulse Rate 102 H 99 97 Respiratory Rate 21 H Blood Pressure 118/37 L 111/46 L 110/41 L Pulse Oximetry 98 96 Oxygen Delivery Method 07/31/24 06:09 Temperature 98.1 F Pulse Rate Respiratory Rate Blood Pressure Pulse Oximetry Oxygen Delivery Method BMI result Body Mass Index 33.7 Const Other: Appearance: Alert. seems confused, not answering questions appropriately Eyes: Pupils equal, round and reactive to light. ENT: Pharynx normal. Neck: Normal inspection. Neck supple. No lymph nodes noted. No crepitus CVS: Normal heart rate and rhythm. Pulses normal. Normal S1 and S2 Respiratory: No respiratory distress. Breath sounds normal. No Wheezing. No rales Abdomen: Soft and nontender. No rigidity. No distention. Skin: Skin very warm to touch, normal skin color Extremities: No lower extremity edema. No Lacerations. No Rash Neuro: confused, alert and oriented x1 only Psych: anxious Course Course Course Narrative: patient had a urologic procedure done today. Patient likely has a UTI. Patient is empirically being treated with IV ceftriaxone and fluids being given based on ideal weight of 55 kg, patient is obese. Patient has an extensive list of allergies to medications. Patient is unable to swallow at this time, patient to confused. Patient receiving IV Ofirmev to help with the fever patient's rectal temperature is 104.8 degrees. Medications Administered Generic Name Dose Route Start Last Admin Trade Name Freq PRN Reason Stop Dose Admin Sodium Chloride 1,000 mls @ 999 mls/hr 07/31/24 05:15 07/31/24 05:25 Ns IV 07/31/24 06:15 999 mls/hr .Q1H1M NOHELIA Administration Discontinued Medications Generic Name Dose Route Start Last Admin Trade Name Carole PRN Reason Stop Dose Admin Ceftriaxone Sodium 1 gm 07/31/24 02:51 07/31/24 03:36 Ceftriaxone Sodium 1 Gm Vial IVPUSH 07/31/24 02:52 1 gm ONCE ONE Administration Sodium Chloride 2,000 mls @ 999 mls/hr 07/31/24 02:52 07/31/24 05:22 Ns IVCONT 07/31/24 04:52 Infused .Q2H1M ONE Infusion Acetaminophen 1,000 mg in 100 mls @ 400 mls/hr 07/31/24 02:53 07/31/24 04:23 Ofirmev IV 07/31/24 03:07 Infused ONCE ONE Infusion Medical Decision Making Medical Decision Making [facility] Narrative: at this time, 03:40, patient's labs are back, lactic acid is 4.6, the rest of the labs including hematology and chemistry pending, urine pending, chest x-ray pending. At this time, 03:40am, sepsis is suspected currently, patient's blood pressure 128/38, heart rate 87, respirations 22, rectal temperature 104.8 degrees, oxygen saturation 94% on room air. Patient already received IV Ofirmev, we are trying to lower the patient's down with a cooling blanket and ice packs as mentioned above, upon admission, patient was started on IV fluids based on ideal weight of 55 kg and ceftriaxone to cover for a potential UTI. Patient is allergic to levofloxacin and other antibiotics. my interpretation of EKG: Atrial fibrillation, rate controlled, heart rate 80, no ST segment depression or elevation, incomplete right bundle-branch block, QTC 442. Patient's troponin is 25.2, patient does not seem to have any cardiac /chest pain. However her history is unreliable. Patient's elevated troponin unlikely to be secondary to cardiac etiology. 05:45 FOCUS exam was done urinalysis is pending. Patient's blood pressure 110/41, heart rate 97, oral temperature 99.5 degrees, respirations 21. Patient is much more awake, alert, and now coherent answering questions appropriately blood pressure 110/41, heart rate 97, temperature 98.1 degrees urinalysis became available at 06:14: Positive for UTI. Patient has already been empirically treated as mentioned above. I discussed the patient with Dr. Nguyen, patient being admitted for UTI sepsis Differential Diagnosis Differential Diagnoses: The differential diagnosis associated with the presentation includes ( UTI, pneumonia, COVID, RSV, influenza) Admission/Observation Consideration of admission/observation: Escalation of care including admission/observation considered Consult Healthcare Provider Management of the patient was discussed with: Hospitalist Lab Data MDM Lab Attestation statement: I reviewed the patient's lab results. 07/31/24 03:07 07/31/24 03:07 Labs: Lab Results 07/31/24 07/31/24 07/31/24 Range/Units 03:07 03:09 05:43 WBC 20.8 H (4.8-10.8) X10*3/uL RBC 4.03 L (4.20-5.50) X10*6/uL Hgb 11.0 L (12.0-16.0) g/dl Hct 33.6 L (37.0-47.0) % MCV 83.4 (80.0-98.0) fL MCH 27.3 (27.0-33.0) pg MCHC 32.7 (31.0-35.0) g/dl RDW 16.3 H (11.0-16.0) % Plt Count 227 (160-400) X10*3/uL MPV 9.6 (9.4-12.3) fL Immature Gran % (Auto) 0.9 H (0.0-0.4) % Neut % (Auto) 92.5 H (45-73) % Lymph % (Auto) 2.9 L (20-40) % [place] % (Auto) 3.6 (2-11) % Eos % (Auto) 0.0 (0-4) % Baso % (Auto) 0.1 (0-2) % Lymph # (Auto) 0.6 L (1.2-4.9) X10*3/uL [place] # (Auto) 0.8 (0.1-1.2) X10*3/uL Eos # (Auto) 0.0 (0.0-0.4) X10*3/uL Baso # (Auto) 0.0 (0.0-0.2) X10*3/uL Abs Immat Gran (auto) 0.19 H (0.00-0.03) X10*3/uL Absolute Neuts (auto) 19.2 H (2.0-8.3) x10*3/uL Absolute Nucleated RBC 0.000 (0.0-0.012) X10*3/uL Nucleated RBC % (auto) 0.0 (0.0-0.2) /100WBC Smear Tech's Comments VERIFIED Sodium 135 (135-145) mmol/L Potassium 3.4 (3.3-5.1) mmol/L Chloride 100 (96-108) mmol/L Carbon Dioxide 20 L (22-29) mmol/L Anion Gap 18 (12-20) BUN 18 H (9-16) mg/dL Creatinine 1.87 H (0.5-1.4) mg/dL Estim Creat Clear Calc 28.2 Estimated GFR 26 Random Glucose 233 H (60-115) mg/dL Lactic Acid 4.6 H* (0.5-2.0) mmol/L Calcium 8.9 D (8.4-10.2) mg/dL Magnesium 1.6 (1.6-2.6) mg/dL Total Bilirubin 0.9 (0.0-1.0) mg/dL Direct Bilirubin 0.4 (0.0-0.5) mg/dL AST 36 H (5-31) U/L ALT 22 (0-31) U/L Alkaline Phosphatase 61 (39-117) U/L Troponin I High Sens 25.2 H D (<3.5-17.0) ng/L Total Protein 7.3 (6.5-8.0) g/dL Albumin 3.4 L (3.5-5.0) g/dL Lipase 7 L (8-78) U/L TSH 0.12 L (0.32-4.0) uIU/mL Free T4 1.62 (0.71-1.85) ng/dL Urine Color Dark Yellow Urine Appearance Turbid Urine pH 6.0 (5.0-9.0) Ur Specific [place] 1.010 (1.005-1.025) Urine Protein 300 (3+) H (Neg-Trace) mg/dL Urine Glucose (UA) Negative (Negative) mg/dL Urine Ketones Negative (Negative) mg/dL Urine Blood Large (3+) H (Negative) Urine Nitrite Positive H (Negative) Ur Leukocyte Esterase Large (3+) H (Negative) Urine RBC 6-10 H (0-2) /HPF Urine WBC >50 H (0-5) /HPF Urine WBC Clumps Present Ur Squamous Epith Cells 0-2 (0-2) /HPF Urine Bacteria 1+ (None Seen) Hyaline Casts 3-5 (0-2) /LPF Urine Yeast Present Influenza Type A (PCR) NEGATIVE (Negative) Influenza Type B (PCR) NEGATIVE (Negative) RSV RNA Qual (PCR) NEGATIVE (Negative) SARS-CoV-2 RNA (RT-PCR) NEGATIVE (Negative) Independent Interpretation I performed an independent interpretation of an: Plain X-Ray Radiology Impression Discussion of test interpretation with radiology: I have reviewed the radiologist's reading. Radiologist Impression: The lungs are adequately expanded. No focal consolidation. No effusion or pneumothorax. Cardiac and mediastinal contours are within normal limits. No acute osseous abnormality Impression: No acute process. Critical Care Time Critical Care Time Critical Care Time: Yes Total Critical Care Time: 60 Attestation: I have personally provided critical care time. Time includes review of lab data, radiology results, discussion with consultants, and monitoring for potential decompensation. Intervention performed as documented. Discharge Plan Discharge Clinical Impression: Sepsis secondary to UTI, FELICITA (acute kidney injury) Patient Disposition: Admitted As Inpatient Print Language: Albanian
[2024-07-31 03:15] LABS: Basophils Percent Auto 0.1 % (0-2); Hematocrit 33.6 % (37.0-47.0); Imm Gran Abs Auto 0.19 X10*3/uL (0.00-0.03); Imm Gran Pct Auto 0.9 % (0.0-0.4); Lymphocytes Absolute Auto 0.6 X10*3/uL (1.2-4.9); Lymphocytes Percent Auto 2.9 % (20-40); MANUAL DIFF FLAG SCAN; Mean Corpuscular HGB Conc 32.7 g/dl (31.0-35.0); Mean Corpuscular Hemoglobin 27.3 pg (27.0-33.0); Mean Corpuscular Volume 83.4 fL (80.0-98.0); Mean Platelet Volume 9.6 fL (9.4-12.3); Monocytes Absolute Auto 0.8 X10*3/uL (0.1-1.2); Monocytes Percent Auto 3.6 % (2-11); Neutrophils Absolute Auto 19.2 x10*3/uL (2.0-8.3); Neutrophils Percent Auto 92.5 % (45-73); Platelet Count 227 X10*3/uL (160-400); Red Blood Count 4.03 X10*6/uL (4.20-5.50); Red Cell Distribution Width 16.3 % (11.0-16.0); SCAN SMEAR FLAG 1; White Blood Count 20.8 X10*3/uL (4.8-10.8)
[2024-07-31] MEDS: Acetaminophen 1,000 MG/100 ML PIGGYBACK 400 MG IV (03:21)
[2024-07-31] MEDS: 0.9 % Sodium Chloride 2,000 ML 999 ML IVCONT (03:21)
[2024-07-31 03:32] LABS: Alanine Aminotransferase 22 U/L (0-31); Albumin Level 3.4 g/dL (3.5-5.0); Alkaline Phosphatase 61 U/L (39-117); Anion Gap 18 (12-20); Aspartate Amino Transferase 36 U/L (5-31); Bilirubin Direct 0.4 mg/dL (0.0-0.5); Bilirubin Total 0.9 mg/dL (0.0-1.0); Blood Urea Nitrogen 18 mg/dL (9-16); Calcium 8.9 mg/dL (8.4-10.2); Carbon Dioxide 20 mmol/L (22-29); Chloride 100 mmol/L (96-108); Creatinine Clr Calc Pharmacy 28.2; Estimated Glomerular Filt Rate 26; Glucose Random 233 mg/dL (60-115); Lipase 7 U/L (8-78); Magnesium 1.6 mg/dL (1.6-2.6); Potassium 3.4 mmol/L (3.3-5.1); Sodium 135 mmol/L (135-145); Total Protein 7.3 g/dL (6.5-8.0)
[2024-07-31 03:35] LABS: Troponin-I High Sensitivity 25.2 ng/L (<3.5-17.0)
[2024-07-31] MEDS: cefTRIAXone sodium 1 GM VIAL IVPUSH (03:36)
[2024-07-31 03:40] LABS: Lactic Acid 4.6 mmol/L (0.5-2.0)
[2024-07-31 03:44] LABS: SLIDE REVIEW VERIFIED
[2024-07-31 03:49] LABS: TSH reflex Free T4 0.12 uIU/mL (0.32-4.0)
[2024-07-31 03:52] LABS: Influenza A PCR NEGATIVE (Negative); Influenza B PCR NEGATIVE (Negative); Resp Syncy Virus RNA Qual PCR NEGATIVE (Negative); SARS COV2 PCR INHOUSE NEGATIVE (Negative)
[2024-07-31 04:24] LABS: Free T4 (Free Thyroxine) 1.62 ng/dL (0.71-1.85)
--- NOTE | 2024-07-31 04:55 | PC.NURSE ---
mentation improved, pt less anxious, speaking more clearly. is able to state birthday, current year, and city.
[2024-07-31 05:12] LABS: Reflex Lactate? Lactic Acid Added
[2024-07-31] MEDS: 0.9 % Sodium Chloride 1,000 ML 999 ML IV (05:25)
[2024-07-31 05:55] LABS: Appearance Urine Turbid; Color Urine Dark Yellow; Glucose Urine UA Negative (Negative); Leukocyte Esterase Urine Large (3+) (Negative); Nitrite Urine Positive (Negative); UMIC TRIGGER UACC YES; Urine Blood Large (3+) (Negative); Urine Ketones Negative (Negative); Urine Protein 300 (3+) mg/dL (Neg-Trace)
[2024-07-31 06:09] LABS: Bacteria Urine 1+ (None Seen); Squamous Epithelial Cell Urine 0-2 /HPF (0-2); UACC Culture Trigger YES; WBC Clumps Urine Present; WBC Urine >50 /HPF (0-5)
[2024-07-31 06:54] LABS: ~Lactic Acid-LAB USE ONLY 3.6 mmol/L (0.5-2.0)
[2024-07-31 08:10] LABS: Reflex Lactate? 2 Y
--- NOTE | 2024-07-31 08:31 | PC.NURSE ---
Addendum entered by Marianela Blanc RN 07/31/24 08:33: The patient is a 79-year-old female presenting with a follow-up for a chronic urinary tract infection. She received attention from both urology and infectious disease specialists during a recent hospitalization. The assessment indicated that her urinary complaints were due to a chronic infection linked to a urethral stent and not an acute urinary tract infection. Urine cultures confirmed the growth of bacteria, which has been attributed to colonization caused by the indwelling stent. It was advised by infectious disease that the resolution of the infection would be best achieved through the removal of the stent rather than further antibiotic treatment, which would be ineffective against the colonization. Currently, the patient is awaiting communication and scheduling from her urology team for the stent?s removal procedure. Stent was removed. Patient presented last night febrile with assoc confusion and hypotension. Was treated for sepsis. This morning patient alert and able to follow commands. Continues to have intermittent chills although afebrile. Respirations even and non-labored. Abdomen soft, non-tender with positive bowel sounds. Patient able to get oob to the commode with one person assist. at the bedside. Original Note: Anemia Mechanical complication of urethral stent Urinary tract infection due to ESBL Klebsiella Blood per rectum Dysuria Abscess Hospital discharge follow-up Generalized abdominal pain Encounter for wheelchair assessment Diverticular disease Major depressive disorder Heel spur Chronic low back pain Uterine cancer Hyperthyroidism Weakness of both lower extremities Hydroureteronephrosis Wound infection Open wound of back, complicated Cellulitis Frequency of urination Vaginal burning Vaginal itching PMB (postmenopausal bleeding) Cirrhosis of liver Does mobilize using walker PONV (postoperative nausea and vomiting) Left foot drop Fatty liver Fibromyalgia Neuropathy RBBB Cholelithiasis Staghorn calculus Renal calculus, bilateral Renal calyceal dilation determined by ultrasound UTI (urinary tract infection) Diabetes mellitus, type II Ganglion cyst Plantar fasciitis Anxiety OA (osteoarthritis) Obstructive airway disease Hypercholesterolemia Low back pain Sciatica
--- NOTE | 2024-07-31 08:43 | PM.IMHP ---
History of Present Illness Date of Service: 07/31/24 Chief Complaint: confusion The patient is a 79-year-old femalewith a past medical history of hypertension, hyperlipidemia, [id number] diabetes mellitus, hyperthyroidism, CKD stage 3, history of sigmoid stricture status post Vicki procedure with recent colostomy reversal, prior UTIs with resistant organisms, right retroperitoneal abscess and right-sided ureteric stent placement who presents to the emergency room with altered mental status. The patient underwent removal of right ureteric stent on 07/31/2023. On the evening prior to hospitalization, the patient had weakness resulting in a mechanical fall and landing on her knees. At that time the noted that the patient was very confused. She had been previously at her baseline self. Due to these reasons she was brought to the emergency room. In the ED, the patient had persistent high-grade fevers and workup consistent with UTI and sepsis. Her lactate initially was greater than 4. She has received 3 L of fluid, IV ceftriaxone, IV Tylenol. Her mentation has began to improve but given her prior history she will be admitted to the hospital for further care. Patient is seen and examined in the emergency room around 08:30. She appears fatigued but is alert. She is able to tell me that she sustained a fall yesterday. She reports urinary symptoms of dysuria which began yesterday. She denies any abdominal pain. She reports fevers and chills. She reports nausea without vomiting. Review of Systems Review of Systems: Negative except HPI/interval history. [facility], [facility] Medical History Anemia Mechanical complication of urethral stent Urinary tract infection due to ESBL Klebsiella Blood per rectum Dysuria Abscess Hospital discharge follow-up Generalized abdominal pain Encounter for wheelchair assessment Diverticular disease Major depressive disorder Heel spur Chronic low back pain Uterine cancer Hyperthyroidism Weakness of both lower extremities Hydroureteronephrosis Wound infection Open wound of back, complicated Cellulitis Frequency of urination Vaginal burning Vaginal itching PMB (postmenopausal bleeding) Cirrhosis of liver Does mobilize using walker PONV (postoperative nausea and vomiting) Left foot drop Fatty liver Fibromyalgia Neuropathy RBBB Cholelithiasis Staghorn calculus Renal calculus, bilateral Renal calyceal dilation determined by ultrasound UTI (urinary tract infection) Diabetes mellitus, type II Ganglion cyst Plantar fasciitis Anxiety OA (osteoarthritis) Obstructive airway disease Hypercholesterolemia Low back pain Sciatica Hypothyroidism HTN (hypertension) Primary osteoarthritis of right knee Retained ureteral stent Renal stones Staghorn calculus Perirectal abscess Family History Father Alcohol dependence Mother CHF (congestive heart failure) Cancer of breast Mother No problems noted. Other Alcoholic cirrhosis Substance use disorder Surgical History History of colostomy reversal (02/20/24) History of colectomy (~10/06/23) Status post cystoscopy with ureteral stent placement History of lumbar discectomy History of lumpectomy of both breasts History of cystoscopy History of lithotripsy Hx of colonoscopy (~04/28/23) History of surgery Social History Household Members: Significant Other Housing: House Are you a primary career law clerk to a significant other at home: No Do you presently have visiting nurse or other home services: Yes (vna) Alcohol intake: current Alcohol intake frequency: does not drink Alcohol type: hard liquor Comment: wheelchair for long distances Patient Tobacco Use Status: Former Tobacco user Tobacco use type: Cigarette Years Smoked: 27 Smoked in Last 30 Days: No e-Cigarette/Vaping Use: Never Used Second Hand Smoke Exposure: No Use of substances other than those prescribed or required for medical reasons: No Advance Directives: Yes Advance Directives on File: Yes Advance Directives Date on File: 04/06/21 Do you have a plan to hurt others: No Plan service: No Current occupational status: disabled Cognitive needs: Yes (wheelchair) Hearing needs: No Vision needs: Yes (Glasses) Meds Allergies Allergy/AdvReac Type Severity Reaction Status Date / Time chlorpheniramine (From Allergy Severe HALLUCINATI Verified 07/31/24 02:52 TUSSIONEX) ONS ciprofloxacin (From CIPRO) Allergy Severe ANAPHYLAXIS Verified 07/31/24 02:52 escitalopram (ESCITALOPRAM) Allergy Severe DISSOCIATIVE Verified 07/31/24 02:52 REACTION fluoxetine (FLUOXETINE) Allergy Severe DISSOCIATIVE Verified 07/31/24 02:52 REACTION hydrocodone (From TUSSIONEX) Allergy Severe HALLUCINATI Verified 07/31/24 02:52 ONS ibuprofen (IBUPROFEN) Allergy Severe THROAT Verified 07/31/24 02:52 SWELLING Sulfa (Sulfonamide Allergy Severe DYSPNEA Verified 07/31/24 02:52 Antibiotics) (SULFA (SULFONAMIDE ANTIBIOTICS)) clarithromycin (From BIAXIN) Allergy Intermediate ABD.PAIN Verified 07/31/24 02:52 duloxetine (DULOXETINE) Allergy Intermediate FACIAL Verified 07/31/24 02:52 NUMBNESS erythromycin base Allergy Intermediate RASH Verified 07/31/24 02:52 (ERYTHROMYCIN BASE) Penicillins (PENICILLINS) Allergy Intermediate RASH Verified 07/31/24 02:52 tetracycline (TETRACYCLINE) Allergy Intermediate DIARRHEA Verified 07/31/24 02:52 codeine (CODEINE) Allergy Unknown TINNITIS Verified 07/31/24 02:52 guaifenesin Allergy Unknown Unknown Verified 07/31/24 02:52 levofloxacin (From Levaquin) Allergy Unknown Unknown Verified 07/31/24 02:52 pregabalin Allergy Unknown Unknown Verified 07/31/24 02:52 Active Medications: Current Medications Acetaminophen (Acetaminophen 325 Mg Tablet) 650 mg PO Q6H PRN PRN Reason: Pain, Mild 1-3,fever,headache Calcium Carbonate (Calcium Carbonate 750 Mg Tab.Chew) 750 mg PO Q4H PRN PRN Reason: Heartburn Lactated Ringer's (Lr) 1,000 mls @ 125 mls/hr IVCONT .Q8H NOHEL[facility] Magnesium Hydroxide (Milk Of Magnesia 30 Ml Oral.Susp) 30 ml PO DAILY PRN PRN Reason: Constipation Melatonin (Melatonin 3 Mg Tablet) 6 mg PO BEDTIME PRN PRN Reason: Insomnia Sodium Chloride (0.9 % Sodium Chloride Flush 3 Ml Syringe) 3 ml IVFLUSH QSHIFT [facility] Home Medications ?Medication ?Instructions ?Recorded ?Confirmed ?Last Taken ?Type atorvastatin 10 mg tablet 10 mg PO DAILY 04/05/21 07/31/24 07/30/24 History metformin 500 mg tablet,extended 500 mg PO DAILY@1700 04/06/21 07/31/24 07/30/24 History release 24 hr acetaminophen 500 mg tablet 1,000 mg PO Q6H PRN Pain 10/04/23 07/31/24 Unknown History levothyroxine 112 mcg tablet 112 mcg PO MOTUTHFRSA@0600 05/31/24 07/31/24 07/30/24 History Physical Exam Vital Signs and Narrative: Vital Signs: Last Vital Signs Temp 98.7 F 07/31/24 07:24 Pulse 109 H 07/31/24 07:24 Resp 14 07/31/24 07:24 BP 104/24 L 07/31/24 07:24 Pulse Ox 98 07/31/24 07:24 O2 Del Method Room Air 07/31/24 07:24 BMI result Body Mass Index 33.7 Const: Other: Constitutional - Awake and Alert, ill appearing, having chills Eyes - PERRLA, EOMI Cardiovascular - S1S2, RRR, No edema Respiratory - Normal lung expansion, Normal respiratory effort, No respiratory distress, CTA bilaterally Gastrointestinal - NT / ND; +BS; No rebound or guarding - No CVA tenderness Extremities - no calf tenderness bilaterally, no swelling Musculoskeletal - Normal inspection, normal ROM Skin - Warm/Dry Neurological - Non focal exam; disoriented to time Psychological - Appropriate affect Results Labs 07/31/24 03:07 07/31/24 03:07 Labs: Laboratory Results - last 24 hr 07/31/24 07/31/24 07/31/24 03:07 03:09 05:43 MCV 83.4 MCH 27.3 MCHC 32.7 RDW 16.3 H Plt Count 227 MPV 9.6 Immature Gran % (Auto) 0.9 H Neut % (Auto) 92.5 H Lymph % (Auto) 2.9 L [place] % (Auto) 3.6 Eos % (Auto) 0.0 Baso % (Auto) 0.1 Lymph # (Auto) 0.6 L [place] # (Auto) 0.8 Eos # (Auto) 0.0 Baso # (Auto) 0.0 Abs Immat Gran (auto) 0.19 H Absolute Neuts (auto) 19.2 H Absolute Nucleated RBC 0.000 Nucleated RBC % (auto) 0.0 Smear Tech's Comments VERIFIED Anion Gap 18 Estim Creat Clear Calc 28.2 Estimated GFR 26 Random Glucose 233 H Lactic Acid 4.6 H* Lactic Acid F/U @ 2Hr Calcium 8.9 D Magnesium 1.6 Total Bilirubin 0.9 Direct Bilirubin 0.4 AST 36 H ALT 22 Alkaline Phosphatase 61 Troponin I High Sens 25.2 H D Total Protein 7.3 Albumin 3.4 L Lipase 7 L TSH 0.12 L Free T4 1.62 Urine Color Dark Yellow Urine Appearance Turbid Urine pH 6.0 Ur Specific [place] 1.010 Urine Protein 300 (3+) H Urine Glucose (UA) Negative Urine Ketones Negative Urine Blood Large (3+) H Urine Nitrite Positive H Ur Leukocyte Esterase Large (3+) H Urine RBC 6-10 H Urine WBC >50 H Urine WBC Clumps Present Ur Squamous Epith Cells 0-2 Urine Bacteria 1+ Hyaline Casts 3-5 Urine Yeast Present Influenza Type A (PCR) NEGATIVE Influenza Type B (PCR) NEGATIVE RSV RNA Qual (PCR) NEGATIVE SARS-CoV-2 RNA (RT-PCR) NEGATIVE 07/31/24 06:07 MCV MCH MCHC RDW Plt Count MPV Immature Gran % (Auto) Neut % (Auto) Lymph % (Auto) [place] % (Auto) Eos % (Auto) Baso % (Auto) Lymph # (Auto) [place] # (Auto) Eos # (Auto) Baso # (Auto) Abs Immat Gran (auto) Absolute Neuts (auto) Absolute Nucleated RBC Nucleated RBC % (auto) Smear Tech's Comments Anion Gap Estim Creat Clear Calc Estimated GFR Random Glucose Lactic Acid Lactic Acid F/U @ 2Hr 3.6 H* Calcium Magnesium Total Bilirubin Direct Bilirubin AST ALT Alkaline Phosphatase Troponin I High Sens Total Protein Albumin Lipase TSH Free T4 Urine Color Urine Appearance Urine pH Ur Specific [place] Urine Protein Urine Glucose (UA) Urine Ketones Urine Blood Urine Nitrite Ur Leukocyte Esterase Urine RBC Urine WBC Urine WBC Clumps Ur Squamous Epith Cells Urine Bacteria Hyaline Casts Urine Yeast Influenza Type A (PCR) Influenza Type B (PCR) RSV RNA Qual (PCR) SARS-CoV-2 RNA (RT-PCR) Assessment and Plan (1) Sepsis secondary to UTI: Status: Acute Plan 79 yo F with a complicated GI/ history with a history of R retroperitoneal abscess and R ureteric stent placement who presents to the ED with confusion post stent removal the day prior to hospitalization. Found to be septic with UTI. History of resistant organisms. 1. Severe sepsis secondary to UTI on going chills concerning for bacteremia prior resistant organisms -- given rocephin in the ED, will start IV merrem follow cultures trend lactate and monitor BP 2. FELICITA SCr baseline 1.2-1.4; presenting with SCr 1.87 hydrate and re-eval consider imaging/renal/urolgoy consult if worsens monitor urine output 3. Toxic/metabolic encephalopathy due to #1 treat underlying cause and monitor mentation 4. DM hold orals POC + sliding scale 5. HTN hold antihypertensive today 6. ? A fib - new onset, elevated trop appears sinus on monitor, but initial EKG ? a. fib will place on tele and repeat ekg + trop ? due to sepsis repeat trop elevated, likely due to sepsis; ekg reviewed with cardiology -- does not appear to be a. fib Full Code DVt pptx - heparin Pt with severe sepsis, felicita, met. encephalpathy + possible new on set a. fib with underlying history of resistent organisms, therefore expected to require at a minimum 2 midnights in the hospital for managment/treatment. Hence, will be admitted as inpatient. Med rec pending -- continue baseline meds as appropriate. Quality Stroke Does the patient have a stroke diagnosis?: No VTE Prior VTE?: No VTE Risk Level:: Medical - moderate - high VTE Device Contraindication: N/A - Device Ordered VTE Drug Contraindication: N/A - Med Ordered
[2024-07-31 09:09] LABS: ~Lactic Acid-LAB USE ONLY 4.9 mmol/L (0.5-2.0)
--- NOTE | 2024-07-31 09:33 | PHA.MEDREC ---
Addendum entered by Roldan [place] [facility] 07/31/24 10:11: med rec checked by [facility] Original Note: Pharmacy Consult ? Medication Reconciliation Pharmacy has completed the medication reconciliation. Spoke to patient spouse Anjel to confirm med list. Spouse states patient is no longer taking Methenamine Hippurate 1 g, Metronidazole 500 mg, Vitamin C 1,000mg ( patient has not started yet). Patient last had her medications yesterday afternoon.
[2024-07-31] MEDS: Lactated Ringers 1,000 ML 125 ML IVCONT ×3 (09:44→23:37)
[2024-07-31] MEDS: 0.9 % Sodium Chloride Flush 3 ML SYRINGE IVFLUSH (09:45)
[2024-07-31] MEDS: Meropenem 1 GM VIAL IVPUSH ×2 (10:22→21:58)
[2024-07-31] MEDS: Heparin Sodium,Porcine 5,000 UNIT/ML VIAL 5000 UNIT SUBCUT ×2 (10:22→21:58)
[2024-07-31 10:33] LABS: Troponin-I High Sensitivity 55.2 ng/L (<3.5-17.0)
[2024-07-31 12:35] LABS: Glucose, Whole Blood 165 mg/dL (60-115)
[2024-07-31] MEDS: Acetaminophen 325 MG TABLET 650 MG PO ×2 (16:50→23:36)
[2024-07-31 16:51] LABS: Glucose, Whole Blood 119 mg/dL (60-115)
--- NOTE | 2024-07-31 18:22 | PC.NURSE ---
Patient noted to be progressively hypotensive with sbp in the 80's, verified by manual. Dr. Mead notified and liter of LR initiated with some effect. Repeat lactic and sepsis bolus ordered.
[2024-07-31 18:48] LABS: Lactic Acid 2.7 mmol/L (0.5-2.0)
[2024-07-31] MEDS: Albumin Human 25 % 100 ML 133.33 ML IV ×2 (19:17→20:23)
--- NOTE | 2024-07-31 19:19 | PC.NURSE ---
pt disoriented but speaks clearly. NS, cont LR and albumin running. hospitalist Patrick contacted via [place]
[2024-07-31] MEDS: Midodrine HCl 5 MG TABLET PO (19:25)
--- NOTE | 2024-07-31 20:24 | PC.NURSE ---
moderate assist to commode with continent output of dark yellow urine. denies symptoms
[2024-07-31 20:27] LABS: Reflex Lactate? Lactic Acid Added
[2024-07-31 21:03] LABS: Cancel Lactic Acid Canceled; Glucose, Whole Blood 112 mg/dL (60-115)
[2024-08-01] VITALS (10 sets, daily range): BP systolic 101–132; BP diastolic 51–60; PULSE 88–112; RESP 16–20; TEMP 36.8–39.6; O2SAT 92–94
[2024-08-01] MEDS: Levothyroxine Sodium 112 MCG TABLET 224 MCG PO (05:52)
[2024-08-01] MEDS: Lactated Ringers 1,000 ML 125 ML IVCONT ×2 (07:34→17:22)
[2024-08-01 08:00] LABS: Glucose, Whole Blood 65 mg/dL (60-115)
--- NOTE | 2024-08-01 08:21 | P.PNIM_ITS ---
Subjective Subjective Date of Service: 08/01/24 Interval History: f/u on sepsis d/t UTI, had an episode of hypotesnion last evening and resolved with IVF, she feels better this morning, and no fever this morning Physical Exam 2 Vital Signs: Vital Signs: Last Vital Signs Temp 99.9 F 08/01/24 07:57 Pulse 105 H 08/01/24 07:57 Resp 20 08/01/24 07:57 BP 123/59 L 08/01/24 07:57 Pulse Ox 94 08/01/24 07:57 O2 Del Method Room Air 08/01/24 07:57 BMI result Body Mass Index 34.0 Const: Other: Constitutional - Awake and Alert, ill appearing, having chillsI Cardiovascular - S1S2, RRR, No edema Respiratory - Normal lung expansion, Normal respiratory effort, No respiratory distress, CTA bilaterally Gastrointestinal - NT / ND; +BS; No rebound or guarding - No CVA tenderness Extremities - no calf tenderness bilaterally, no swelling Musculoskeletal - Normal inspection, normal ROM Skin - Warm/Dry Neurological - Non focal exam; disoriented to time Psychological - Appropriate affect Objective Data Active Medications Acetaminophen (Acetaminophen 325 Mg Tablet) 650 mg PO Q6H PRN PRN Reason: Pain, Mild 1-3,fever,headache Last Admin: 07/31/24 23:36 Dose: 650 mg Documented By: SHAGGY Atorvastatin Calcium (Atorvastatin Calcium 10 Mg Tablet) 10 mg PO DAILY [facility] Calcium Carbonate (Calcium Carbonate 750 Mg Tab.Chew) 750 mg PO Q4H PRN PRN Reason: Heartburn Ferrous Sulfate (Ferrous Sulfate 324 Mg Tablet.Dr) 324 mg PO DAILY [facility] Heparin Sodium (Porcine) (Heparin Sodium,Porcine 5,000 Unit/Ml Vial) 5,000 unit SUBCUT Q12H [facility] Last Admin: 07/31/24 21:58 Dose: 5,000 unit Documented By: SHAGGY Lactated Ringer's (Lr) 1,000 mls @ 125 mls/hr IVCONT .Q8H [facility] Last Admin: 08/01/24 07:34 Dose: 125 mls/hr Documented By: CASSANDRA Insulin Human Lispro (Insulin Lispro 100 Unit/Ml 3 Ml Vial) 0 unit SUBCUT QIDACHS [facility]; Protocol Last Admin: 08/01/24 08:14 Dose: Not Given Documented By: CASSANDRA Non-Admin Reason: No Insulin Coverage Levothyroxine Sodium (Levothyroxine Sodium 112 Mcg Tablet) 112 mcg PO MOTUTHFRSA@0600 [facility] Levothyroxine Sodium (Levothyroxine Sodium 112 Mcg Tablet) 224 mcg PO SUWE@0600 [facility] Last Admin: 08/01/24 05:52 Dose: 224 mcg Documented By: SHAGGY Magnesium Hydroxide (Milk Of Magnesia 30 Ml Oral.Susp) 30 ml PO DAILY PRN PRN Reason: Constipation Melatonin (Melatonin 3 Mg Tablet) 6 mg PO BEDTIME PRN PRN Reason: Insomnia Meropenem (Meropenem 1 Gm Vial) 1 gm IVPUSH Q12H [facility] Last Admin: 07/31/24 21:58 Dose: 1 gm Documented By: SHAGGY Pyridoxine HCl (Pyridoxine Hcl (Vitamin B6) 50 Mg Tablet) 100 mg PO DAILY [facility] Sodium Chloride (0.9 % Sodium Chloride Flush 3 Ml Syringe) 3 ml IVFLUSH QSHIFT [facility] Last Admin: 08/01/24 07:38 Dose: Not Given Documented By: CASSANDRA Non-Admin Reason: IV Running Tramadol HCl (Tramadol Hcl 50 Mg Tablet) 50 mg PO DAILY PRN PRN Reason: Pain, Moderate(Pain Scale 4-6) Vitamin D (Cholecalciferol (Vitamin D3) 25 Mcg Tablet) 50 mcg PO DAILY [facility] Labs 07/31/24 03:07 07/31/24 03:07 Labs: Laboratory Results - last 24 hr 07/31/24 07/31/24 07/31/24 08:34 09:58 12:30 POC Glucose 165 H Lactic Acid Lactic Acid F/U @ 2Hr Lactic Acid F/U @ 4Hr 4.9 H* Troponin I High Sens 55.2 H* D 07/31/24 07/31/24 07/31/24 16:48 18:24 20:49 POC Glucose 119 H Lactic Acid 2.7 H* Lactic Acid F/U @ 2Hr Cancelled Lactic Acid F/U @ 4Hr Troponin I High Sens 07/31/24 08/01/24 20:59 07:41 POC Glucose 112 65 Lactic Acid Lactic Acid F/U @ 2Hr Lactic Acid F/U @ 4Hr Troponin I High Sens Microbiology Microbiology Results: Microbiology 07/31/24 03:32 Blood Culture - Preliminary Blood - Venous No growth after 24 hours. 07/31/24 03:32 Blood Culture - Preliminary Blood - Venous No growth after 24 hours. Assessment and Plan (1) Sepsis secondary to UTI: Status: Acute Plan 79 yo F with a complicated GI/ history with a history of R retroperitoneal abscess and R ureteric stent placement who presents to the ED with confusion post stent removal the day prior to hospitalization. Found to be septic with UTI. History of resistant organisms. Severe sepsis secondary to UTI on going chills concerning for bacteremia, cultures pending prior resistant organisms -- given rocephin in the ED, and continued on IV merrem LA has trended down IVF for hypotension which has resolved. FELICITA, likely from sepsis, hypotension SCr baseline 1.2-1.4; presenting with SCr 1.87 check labs this morning and US of kidney nephrology consult if worsening Toxic/metabolic encephalopathy d/t UTI/sepsis, presently at baseline DM, FBS 65 hold orals POC + sliding scale HTN hold antihypertensive today A fib - new onset, elevated trop appears sinus on monitor, but initial EKG ? a. fib will place on tele and repeat ekg + trop ? due to sepsis repeat trop elevated, likely due to sepsis; ekg reviewed with cardiology -- does not appear to be a. fib Full Code DVt pptx - heparin Pt with severe sepsis, felicita, met. encephalpathy + possible new on set a. fib with underlying history of resistent organisms, therefore expected to require at a minimum 2 midnights in the hospital for managment/treatment. Hence, will be admitted as inpatient. Med rec pending -- continue baseline meds as appropriate. Quality Stroke Does the patient have a stroke diagnosis?: No VTE Prior VTE?: No VTE Risk Level:: Medical - moderate - high VTE Device Contraindication: N/A - Device Ordered VTE Drug Contraindication: N/A - Med Ordered
[2024-08-01 08:50] LABS: Hematocrit 28.2 % (37.0-47.0); Hemoglobin 9.1 g/dl (12.0-16.0); Mean Corpuscular HGB Conc 32.3 g/dl (31.0-35.0); Mean Corpuscular Hemoglobin 27.2 pg (27.0-33.0); Mean Corpuscular Volume 84.4 fL (80.0-98.0); Mean Platelet Volume 9.8 fL (9.4-12.3); Platelet Count 151 X10*3/uL (160-400); Red Blood Count 3.34 X10*6/uL (4.20-5.50); Red Cell Distribution Width 16.8 % (11.0-16.0); White Blood Count 19.7 X10*3/uL (4.8-10.8)
[2024-08-01 09:04] LABS: Anion Gap 14 (12-20); Blood Urea Nitrogen 21 mg/dL (9-16); Calcium 7.8 mg/dL (8.4-10.2); Carbon Dioxide 18 mmol/L (22-29); Chloride 105 mmol/L (96-108); Creatinine Clr Calc Pharmacy 30.8; Estimated Glomerular Filt Rate 29; Glucose Random 133 mg/dL (60-115); Potassium 3.4 mmol/L (3.3-5.1); Sodium 134 mmol/L (135-145)
[2024-08-01] MEDS: Cholecalciferol (Vitamin D3) 25 MCG TABLET 50 MCG PO (10:25)
[2024-08-01] MEDS: Ferrous Sulfate 324 MG TABLET.DR PO (10:26)
[2024-08-01] MEDS: Atorvastatin Calcium 10 MG TABLET PO (10:26)
[2024-08-01] MEDS: Heparin Sodium,Porcine 5,000 UNIT/ML VIAL 5000 UNIT SUBCUT ×2 (10:27→21:09)
[2024-08-01] MEDS: Meropenem 1 GM VIAL IVPUSH ×2 (10:28→21:09)
[2024-08-01] MEDS: 0.9 % Sodium Chloride Flush 3 ML SYRINGE IVFLUSH ×2 (10:35→17:22)
[2024-08-01] MEDS: Pyridoxine HCl (Vitamin B6) 50 MG TABLET 100 MG PO (10:36)
[2024-08-01 11:38] LABS: Glucose, Whole Blood 126 mg/dL (60-115)
--- NOTE | 2024-08-01 12:23 | PC.NURSE ---
Pt is nauseous. No vomiting. BT103.3, HR112, BP114/51. Dr. Mead notified. Per MD instruction, give Tylenol.
[2024-08-01] MEDS: Acetaminophen 325 MG TABLET 650 MG PO (12:48)
[2024-08-01] MEDS: ondansetron HCL 4 MG/2 ML VIAL IVPUSH (13:06)
--- NOTE | 2024-08-01 13:22 | MHC.CM.PN ---
IMM 08/01/24 DELIVERED TO BEDSIDE, PT W/SEPSIS/UTI/CONFUSION/FALL AT HOME, CM MET W/PT WHO WAS ABLE TO ANSWER QUESTIONS, PT LIVES W/S.O. 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 PT REPORTS HER GOAL IS HOME W/RESUMP OF SERVICES. PT VERIFIES PCP IS DR. CHU AND HCP IS ALEXEY JACOBSON.
[2024-08-01 16:02] LABS: Glucose, Whole Blood 158 mg/dL (60-115)
[2024-08-01] MEDS: Insulin Lispro 100 UNIT/ML 3 ML VIAL SUBCUT (16:20)
--- NOTE | 2024-08-01 18:13 | PC.NURSE ---
multiple loose stools today, pt denied abdominal pain , MD notified , ordered received to sent stool for cdif
[2024-08-01 19:14] LABS: CDiff Gene PCR NEGATIVE (Negative)
[2024-08-01 20:01] LABS: Glucose, Whole Blood 105 mg/dL (60-115)
[2024-08-01] MEDS: traMADoL HCL 50 MG TABLET PO (21:09)
[2024-08-01] MEDS: Melatonin 3 MG TABLET 6 MG PO (21:10)
[2024-08-02] MEDS: Lactated Ringers 1,000 ML 125 ML IVCONT (03:11)
[2024-08-02 03:20] VITALS: BP 137/61; PULSE 100; RESP 18; TEMP 36.3; O2SAT 94
[2024-08-02] MEDS: Levothyroxine Sodium 112 MCG TABLET PO (05:47)
[2024-08-02 07:09] LABS: Glucose, Whole Blood 92 mg/dL (60-115)
[2024-08-02 07:11] LABS: Hematocrit 24.6 % (37.0-47.0); Hemoglobin 8.2 g/dl (12.0-16.0); Mean Corpuscular HGB Conc 33.3 g/dl (31.0-35.0); Mean Corpuscular Hemoglobin 27.6 pg (27.0-33.0); Mean Corpuscular Volume 82.8 fL (80.0-98.0); Mean Platelet Volume 10.1 fL (9.4-12.3); Platelet Count 112 X10*3/uL (160-400); Red Blood Count 2.97 X10*6/uL (4.20-5.50); Red Cell Distribution Width 16.7 % (11.0-16.0); White Blood Count 8.5 X10*3/uL (4.8-10.8)
[2024-08-02 07:19] VITALS: BP 115/57; PULSE 96; RESP 20; TEMP 37.3; O2SAT 92
[2024-08-02 07:28] LABS: Anion Gap 10 (12-20); Blood Urea Nitrogen 20 mg/dL (9-16); Calcium 7.6 mg/dL (8.4-10.2); Carbon Dioxide 20 mmol/L (22-29); Chloride 106 mmol/L (96-108); Creatinine Clr Calc Pharmacy 33.9; Estimated Glomerular Filt Rate 32; Glucose Random 92 mg/dL (60-115); Potassium 3.2 mmol/L (3.3-5.1); Sodium 133 mmol/L (135-145)
[2024-08-02] MEDS: Cholecalciferol (Vitamin D3) 25 MCG TABLET 50 MCG PO (08:31)
[2024-08-02] MEDS: Ferrous Sulfate 324 MG TABLET.DR PO (08:31)
[2024-08-02] MEDS: Meropenem 1 GM VIAL IVPUSH ×2 (08:31→21:44)
[2024-08-02] MEDS: Atorvastatin Calcium 10 MG TABLET PO (08:31)
[2024-08-02] MEDS: Heparin Sodium,Porcine 5,000 UNIT/ML VIAL 5000 UNIT SUBCUT ×2 (08:31→21:43)
[2024-08-02] MEDS: Pyridoxine HCl (Vitamin B6) 50 MG TABLET 100 MG PO (08:31)
[2024-08-02] MEDS: 0.9 % Sodium Chloride Flush 3 ML SYRINGE IVFLUSH ×3 (08:32→21:44)
[2024-08-02 10:51] LABS: Glucose, Whole Blood 101 mg/dL (60-115)
[2024-08-02 10:59] VITALS: BP 124/56; PULSE 93; RESP 20; TEMP 37.4; O2SAT 92
--- NOTE | 2024-08-02 11:06 | HO.PM.IMPN ---
Subjective Subjective Date of Service: 08/02/24 Interval History: Patient is overall feeling better, although still reports intermittent chills, last fever 22 hours abo urine culture = resistant Klebsiela, she is on the right antibiotics Physical Exam Vital Signs: Vital Signs: Last Vital Signs Temp 99.4 F 08/02/24 10:59 Pulse 93 08/02/24 10:59 Resp 20 08/02/24 10:59 BP 124/56 L 08/02/24 10:59 Pulse Ox 92 08/02/24 10:59 O2 Del Method Room Air 08/02/24 10:59 BMI result Body Mass Index 34.0 Const: Other: Constitutional - Awake and Alert, feels better, oriented to self and place Cardiovascular - S1S2, RRR, No edema Respiratory - Normal lung expansion, Normal respiratory effort, No respiratory distress, CTA bilaterally Gastrointestinal - NT / ND; +BS; No rebound or guarding - No CVA tenderness Extremities - no calf tenderness bilaterally, no swelling Musculoskeletal - Normal inspection, normal ROM Skin - Warm/Dry Neurological - Non focal exam; disoriented to time Psychological - Appropriate affect Objective Data Active Medications Acetaminophen (Acetaminophen 325 Mg Tablet) 650 mg PO Q6H PRN PRN Reason: Pain, Mild 1-3,fever,headache Last Admin: 08/01/24 12:48 Dose: 650 mg Documented By: CASSANDRA Atorvastatin Calcium (Atorvastatin Calcium 10 Mg Tablet) 10 mg PO DAILY [facility] Last Admin: 08/02/24 08:31 Dose: 10 mg Documented By: CASSANDRA Calcium Carbonate (Calcium Carbonate 750 Mg Tab.Chew) 750 mg PO Q4H PRN PRN Reason: Heartburn Ferrous Sulfate (Ferrous Sulfate 324 Mg Tablet.Dr) 324 mg PO DAILY [facility] Last Admin: 08/02/24 08:31 Dose: 324 mg Documented By: CASSANDRA Heparin Sodium (Porcine) (Heparin Sodium,Porcine 5,000 Unit/Ml Vial) 5,000 unit SUBCUT Q12H [facility] Last Admin: 08/02/24 08:31 Dose: 5,000 unit Documented By: CASSANDRA Insulin Human Lispro (Insulin Lispro 100 Unit/Ml 3 Ml Vial) 0 unit SUBCUT QIDACHS [facility]; Protocol Last Admin: 08/02/24 10:56 Dose: Not Given Documented By: CASSANDRA Non-Admin Reason: No Insulin Coverage Levothyroxine Sodium (Levothyroxine Sodium 112 Mcg Tablet) 112 mcg PO MOTUTHFRSA@0600 [facility] Last Admin: 08/02/24 05:47 Dose: 112 mcg Documented By: ED Levothyroxine Sodium (Levothyroxine Sodium 112 Mcg Tablet) 224 mcg PO SUWE@0600 [facility] Last Admin: 08/01/24 05:52 Dose: 224 mcg Documented By: SHAGGY Magnesium Hydroxide (Milk Of Magnesia 30 Ml Oral.Susp) 30 ml PO DAILY PRN PRN Reason: Constipation Melatonin (Melatonin 3 Mg Tablet) 6 mg PO BEDTIME PRN PRN Reason: Insomnia Last Admin: 08/01/24 21:10 Dose: 6 mg Documented By: ED Meropenem (Meropenem 1 Gm Vial) 1 gm IVPUSH Q12H [facility] Last Admin: 08/02/24 08:31 Dose: 1 gm Documented By: CASSANDRA Ondansetron HCl (Ondansetron Hcl 4 Mg/2 Ml Vial) 4 mg IVPUSH Q8H PRN PRN Reason: Nausea and Vomiting Last Admin: 08/01/24 13:06 Dose: 4 mg Documented By: MIQUEL Pyridoxine HCl (Pyridoxine Hcl (Vitamin B6) 50 Mg Tablet) 100 mg PO DAILY [facility] Last Admin: 08/02/24 08:31 Dose: 100 mg Documented By: CASSANDRA Sodium Chloride (0.9 % Sodium Chloride Flush 3 Ml Syringe) 3 ml IVFLUSH [facility] Last Admin: 08/02/24 08:32 Dose: 3 ml Documented By: CASSANDRA Tramadol HCl (Tramadol Hcl 50 Mg Tablet) 50 mg PO DAILY PRN PRN Reason: Pain, Moderate(Pain Scale 4-6) Last Admin: 08/01/24 21:09 Dose: 50 mg Documented By: ED Vitamin D (Cholecalciferol (Vitamin D3) 25 Mcg Tablet) 50 mcg PO DAILY [facility] Last Admin: 08/02/24 08:31 Dose: 50 mcg Documented By: CASSANDRA Labs 08/02/24 06:24 08/02/24 06:24 Labs: Laboratory Results - last 24 hr 08/01/24 08/01/24 08/01/24 11:05 15:51 18:11 MCV MCH MCHC RDW Plt Count MPV Absolute Nucleated RBC Nucleated RBC % (auto) Anion Gap Estim Creat Clear Calc Estimated GFR POC Glucose 126 H 158 H Random Glucose Calcium C. difficile Tox B Gene NEGATIVE 08/01/24 08/02/24 08/02/24 19:52 06:24 07:03 MCV 82.8 MCH 27.6 MCHC 33.3 RDW 16.7 H Plt Count 112 L D MPV 10.1 Absolute Nucleated RBC 0.000 Nucleated RBC % (auto) 0.0 Anion Gap 10 L Estim Creat Clear Calc 33.9 Estimated GFR 32 POC Glucose 105 92 Random Glucose 92 Calcium 7.6 L C. difficile Tox B Gene 08/02/24 10:45 MCV MCH MCHC RDW Plt Count MPV Absolute Nucleated RBC Nucleated RBC % (auto) Anion Gap Estim Creat Clear Calc Estimated GFR POC Glucose 101 Random Glucose Calcium C. difficile Tox B Gene Microbiology Microbiology Results: Microbiology 07/31/24 Unknown Urine Culture - Final Urine clean catch - Clean Catch Midstream Klebsiella pneumoniae 07/31/24 03:32 Blood Culture - Preliminary Blood - Venous No growth after 48 hours. 07/31/24 03:32 Blood Culture - Preliminary Blood - Venous No growth after 48 hours. Assessment and Plan (1) Sepsis secondary to UTI: Status: Acute Plan 79 yo F with a complicated GI/ history with a history of R retroperitoneal abscess and R ureteric stent placement who presents to the ED with confusion post stent removal the day prior to hospitalization. Found to be septic with UTI. History of resistant organisms. Severe sepsis secondary to UTI, sepsis resolved on going chills concerning for bacteremia, urine culture = ESBL Klebsiela, blood culture is negative 48 hrous continue Ertapenem LA has trended down HypOtension resolved CT of ad/pelvis: The double-J ureteral stent on the right has been removed. Mild fullness of the bilateral ureters without ureteral calculus. Bilateral renal calculi, similar to prior. Distended gallbladder with several gallstones. Cirrhotic liver. Nonspecific stranding about the abdomen and pelvis as detailed. FELICITA on CKD 3 likely from sepsis, hypOtension SCr baseline 1.2-1.4; presenting with SCr 1.87, now 1.56 Nephro consult if worsening, no US since CT done Mild metabolic acidosis d/t renal failure, monitor Mild hypOkalemia, oral replacement Toxic/metabolic encephalopathy d/t UTI/sepsis, presently at baseline DM, FBS 65 hold orals POC + sliding scale HTN BP meds on hold A fib - new onset, elevated trop appears sinus on monitor, but initial EKG ? a. fib will place on tele and repeat ekg + trop ? due to sepsis repeat trop elevated, likely due to sepsis; ekg reviewed with cardiology -- does not appear to be a. fib Full Code DVt pptx - heparin need for inpatient: severe sepsis, felicita, met. encephalpathy + possible new on set a. fib with underlying history of resistent organisms ok to transfer to [facility] surg [facility] Stroke Does the patient have a stroke diagnosis?: No VTE Prior VTE?: No VTE Risk Level:: Medical - moderate - high VTE Device Contraindication: N/A - Device Ordered VTE Drug Contraindication: N/A - Med Ordered
[2024-08-02] MEDS: Potassium Chloride ER 20 MEQ TAB.ER.PRT 40 MEQ PO (12:29)
[2024-08-02 16:00] VITALS: BP 110/55; PULSE 95; RESP 18; TEMP 37.2; O2SAT 94
[2024-08-02 17:06] LABS: Glucose, Whole Blood 102 mg/dL (60-115)
[2024-08-02 20:00] VITALS: BP 145/68; PULSE 97; RESP 18; TEMP 36.9; O2SAT 94
[2024-08-02 21:10] LABS: Glucose, Whole Blood 87 mg/dL (60-115)
[2024-08-02 23:45] VITALS: BP 132/67; PULSE 97; RESP 18; TEMP 36.8; O2SAT 94
[2024-08-03 04:00] VITALS: BP 129/80; PULSE 92; RESP 18; TEMP 36.7; O2SAT 94
[2024-08-03] MEDS: Levothyroxine Sodium 112 MCG TABLET PO (06:08)
[2024-08-03 07:15] VITALS: BP 123/58; PULSE 85; RESP 16; TEMP 36.7; O2SAT 97
[2024-08-03 07:19] LABS: Glucose, Whole Blood 94 mg/dL (60-115)
[2024-08-03] MEDS: Cholecalciferol (Vitamin D3) 25 MCG TABLET 50 MCG PO (08:17)
[2024-08-03] MEDS: Meropenem 1 GM VIAL IVPUSH ×2 (08:17→20:47)
[2024-08-03] MEDS: Atorvastatin Calcium 10 MG TABLET PO (08:17)
[2024-08-03] MEDS: Pyridoxine HCl (Vitamin B6) 50 MG TABLET 100 MG PO (08:17)
[2024-08-03] MEDS: Ferrous Sulfate 324 MG TABLET.DR PO (08:17)
[2024-08-03] MEDS: Heparin Sodium,Porcine 5,000 UNIT/ML VIAL 5000 UNIT SUBCUT ×2 (08:17→20:47)
[2024-08-03 08:20] LABS: Hematocrit 28.3 % (37.0-47.0); Hemoglobin 9.3 g/dl (12.0-16.0); Mean Corpuscular HGB Conc 32.9 g/dl (31.0-35.0); Mean Corpuscular Volume 82.3 fL (80.0-98.0); Mean Platelet Volume 10.5 fL (9.4-12.3); Platelet Count 83 X10*3/uL (160-400); Red Blood Count 3.44 X10*6/uL (4.20-5.50); Red Cell Distribution Width 16.5 % (11.0-16.0); White Blood Count 6.3 X10*3/uL (4.8-10.8)
[2024-08-03] MEDS: 0.9 % Sodium Chloride Flush 3 ML SYRINGE IVFLUSH ×3 (08:22→20:47)
[2024-08-03 08:35] LABS: Anion Gap 13 (12-20); Blood Urea Nitrogen 17 mg/dL (9-16); Carbon Dioxide 19 mmol/L (22-29); Chloride 104 mmol/L (96-108); Creatinine Clr Calc Pharmacy 38.9; Estimated Glomerular Filt Rate 38; Glucose Random 87 mg/dL (60-115); Potassium 3.6 mmol/L (3.3-5.1); Sodium 132 mmol/L (135-145)
--- NOTE | 2024-08-03 10:18 | HO.PM.IMPN ---
Subjective Subjective Date of Service: 08/12/24 Interval History: f/u on uit/sepsis, doing well, no more fever, sepsis resolved, FELIICTA resolved as well Physical Exam Vital Signs: Vital Signs: Last Vital Signs Temp 98.0 F 08/03/24 07:15 Pulse 85 08/03/24 07:15 Resp 16 08/03/24 07:15 BP 123/58 L 08/03/24 07:15 Pulse Ox 97 08/03/24 07:15 O2 Del Method Room Air 08/03/24 07:15 BMI result Body Mass Index 34.0 Const: Other: Constitutional - Awake and Alert, feels better, oriented to self and place Cardiovascular - S1S2, RRR, No edema Respiratory - Normal lung expansion, Normal respiratory effort, No respiratory distress, CTA bilaterally Gastrointestinal - NT / ND; +BS; No rebound or guarding - No CVA tenderness Extremities - no calf tenderness bilaterally, no swelling Musculoskeletal - Normal inspection, normal ROM Skin - Warm/Dry Neurological - Non focal exam; disoriented to time Psychological - Appropriate affect Objective Data Active Medications Acetaminophen (Acetaminophen 325 Mg Tablet) 650 mg PO Q6H PRN PRN Reason: Pain, Mild 1-3,fever,headache Last Admin: 08/01/24 12:48 Dose: 650 mg Documented By: CASSANDRA Atorvastatin Calcium (Atorvastatin Calcium 10 Mg Tablet) 10 mg PO DAILY [facility] Last Admin: 08/03/24 08:17 Dose: 10 mg Documented By: ELMIRA Calcium Carbonate (Calcium Carbonate 750 Mg Tab.Chew) 750 mg PO Q4H PRN PRN Reason: Heartburn Ferrous Sulfate (Ferrous Sulfate 324 Mg Tablet.) 324 mg PO DAILY [facility] Last Admin: 08/03/24 08:17 Dose: 324 mg Documented By: ELMIRA Heparin Sodium (Porcine) (Heparin Sodium,Porcine 5,000 Unit/Ml Vial) 5,000 unit SUBCUT Q12H [facility] Last Admin: 08/03/24 08:17 Dose: 5,000 unit Documented By: ELMIRA Insulin Human Lispro (Insulin Lispro 100 Unit/Ml 3 Ml Vial) 0 unit SUBCUT QIDACHS [facility]; Protocol Last Admin: 08/03/24 07:40 Dose: Not Given Documented By: ELMIRA Non-Admin Reason: No Insulin Coverage Levothyroxine Sodium (Levothyroxine Sodium 112 Mcg Tablet) 112 mcg PO MOTUTHFRSA@0600 [facility] Last Admin: 08/03/24 06:08 Dose: 112 mcg Documented By: ED Levothyroxine Sodium (Levothyroxine Sodium 112 Mcg Tablet) 224 mcg PO SUWE@0600 [facility] Last Admin: 08/01/24 05:52 Dose: 224 mcg Documented By: FRITZ-JOZEViet Magnesium Hydroxide (Milk Of Magnesia 30 Ml Oral.Susp) 30 ml PO DAILY PRN PRN Reason: Constipation Melatonin (Melatonin 3 Mg Tablet) 6 mg PO BEDTIME PRN PRN Reason: Insomnia Last Admin: 08/01/24 21:10 Dose: 6 mg Meropenem (Meropenem 1 Gm Vial) 1 gm IVPUSH Q12H [facility] Last Admin: 08/03/24 08:17 Dose: 1 gm Documented By: ELMIRA Ondansetron HCl (Ondansetron Hcl 4 Mg/2 Ml Vial) 4 mg IVPUSH Q8H PRN PRN Reason: Nausea and Vomiting Last Admin: 08/01/24 13:06 Dose: 4 mg Documented By: MIQUEL Pyridoxine HCl (Pyridoxine Hcl (Vitamin B6) 50 Mg Tablet) 100 mg PO DAILY [facility] Last Admin: 08/03/24 08:17 Dose: 100 mg Documented By: ELMIRA Sodium Chloride (0.9 % Sodium Chloride Flush 3 Ml Syringe) [address] [facility] Last Admin: 08/03/24 08:22 Dose: 3 ml Documented By: ELMIRA Tramadol HCl (Tramadol Hcl 50 Mg Tablet) 50 mg PO DAILY PRN PRN Reason: Pain, Moderate(Pain Scale 4-6) Last Admin: 08/01/24 21:09 Dose: 50 mg Vitamin D (Cholecalciferol (Vitamin D3) 25 Mcg Tablet) 50 mcg PO DAILY [facility] Last Admin: 08/03/24 08:17 Dose: 50 mcg Documented By: ELMIRA Labs 08/03/24 08:08 08/03/24 08:08 Labs: Laboratory Results - last 24 hr 08/02/24 08/02/24 08/02/24 10:45 16:59 21:06 MCV MCH MCHC RDW Plt Count MPV Absolute Nucleated RBC Nucleated RBC % (auto) Anion Gap Estim Creat Clear Calc Estimated GFR POC Glucose 101 102 87 Random Glucose Calcium 08/03/24 08/03/24 07:16 08:08 MCV 82.3 MCH 27.0 MCHC 32.9 RDW 16.5 H Plt Count 83 L D MPV 10.5 Absolute Nucleated RBC 0.000 Nucleated RBC % (auto) 0.0 Anion Gap 13 Estim Creat Clear Calc 38.9 Estimated GFR 38 POC Glucose 94 Random Glucose 87 Calcium 8.0 L Microbiology Microbiology Results: Microbiology 07/31/24 Unknown Urine Culture - Final Urine clean catch - Clean Catch Midstream Klebsiella pneumoniae Assessment and Plan (1) UTI (urinary tract infection): Status: Acute Plan 79 yo F with a complicated GI/ history with a history of R retroperitoneal abscess and R ureteric stent placement who presents to the ED with confusion post stent removal the day prior to hospitalization. Found to be septic with UTI. History of resistant organisms. Severe sepsis secondary to UTI, sepsis resolved, LA has trended down, hypotension resolved. urine culture = ESBL Klebsiela, blood culture is negative 48 hrous continue Ertapenem, proably for [address] of ad/pelvis: The double-J ureteral stent on the right has been removed. Mild fullness of the bilateral ureters without ureteral calculus. Bilateral renal calculi, similar to prior. Distended gallbladder with several gallstones. Cirrhotic liver.Nonspecific stranding about the abdomen and pelvis as detailed. FELICITA on CKD 3 likely from sepsis, hypOtension SCr baseline 1.2-1.4; presenting with SCr 1.87, now 1.3 Nephro consult if worsening, CT as above Mild metabolic acidosis d/t renal failure, appear chronic and stable. Mild hypOkalemia, replaced and resolved. Toxic/metabolic encephalopathy d/t UTI/sepsis, presently at baseline DM, controlled. holding orals POC + sliding scale HTN, on low side BP meds on hold Tachycardia on admdission, initially ECG thought to be AFIB, sinus on monitor mild incrase in troponin, likely related to renal failure, FELICITA ecg was shown to cardiology and doesn't appear to be afib Full Code DVt pptx - heparin need for inpatient: severe sepsis, felicita, met. encephalpathy + possible new on set a. fib with underlying history of resistent organisms ok to transfer to [facility] surg [facility] Stroke Does the patient have a stroke diagnosis?: No VTE Prior VTE?: No VTE Risk Level:: Medical - moderate - high VTE Device Contraindication: N/A - Device Ordered VTE Drug Contraindication: N/A - Med Ordered
[2024-08-03 11:05] VITALS: BP 100/57; PULSE 100; RESP 18; TEMP 36.6; O2SAT 98
[2024-08-03 11:11] LABS: Glucose, Whole Blood 106 mg/dL (60-115)
[2024-08-03 11:35] LABS: Troponin-I High Sensitivity 27.4 ng/L (<3.5-17.0)
--- NOTE | 2024-08-03 13:12 | P.CNID_ITS ---
History of Present Illness Data of Consult Service Date: 08/03/24 Requesting physician: Lucio Mead Primary Care Provider: MD LISSY Schultz Reason for consult: ESBL Klebsiella urine She presents with weakness and falls at home and then some confusion. She reports burning on urination and fevers. She has Klebsiella urine,resistant most antibiotics. [facility] Past Medical History Medical History Anemia Mechanical complication of urethral stent Urinary tract infection due to ESBL Klebsiella Blood per rectum Dysuria Abscess Hospital discharge follow-up Generalized abdominal pain Encounter for wheelchair assessment Diverticular disease Major depressive disorder Heel spur Chronic low back pain Uterine cancer Hyperthyroidism Weakness of both lower extremities Hydroureteronephrosis Wound infection Open wound of back, complicated Cellulitis Frequency of urination Vaginal burning Vaginal itching PMB (postmenopausal bleeding) Cirrhosis of liver Does mobilize using walker PONV (postoperative nausea and vomiting) Left foot drop Fatty liver Fibromyalgia Neuropathy RBBB Cholelithiasis Staghorn calculus Renal calculus, bilateral Renal calyceal dilation determined by ultrasound UTI (urinary tract infection) Diabetes mellitus, type II Ganglion cyst Plantar fasciitis Anxiety OA (osteoarthritis) Obstructive airway disease Hypercholesterolemia Low back pain Sciatica Hypothyroidism HTN (hypertension) Primary osteoarthritis of right knee Retained ureteral stent Renal stones Staghorn calculus Perirectal abscess Family History Family History Father Alcohol dependence Mother CHF (congestive heart failure) Cancer of breast Mother No problems noted. Other Alcoholic cirrhosis Substance use disorder Family history: reviewed and not pertinent Surgical History Surgical History History of colostomy reversal (02/20/24) History of colectomy (~10/06/23) Status post cystoscopy with ureteral stent placement History of lumbar discectomy History of lumpectomy of both breasts History of cystoscopy History of lithotripsy Hx of colonoscopy (~04/28/23) History of surgery Social History Social History Household Members: Significant Other Housing: House Are you a primary care connector to a significant other at home: No Do you presently have visiting nurse or other home services: No 75 years or older and lives alone: No Alcohol intake: current Alcohol intake frequency: does not drink Alcohol type: hard liquor Comment: wheelchair for long distances Patient Tobacco Use Status: Former Tobacco user Tobacco use type: Cigarette Years Smoked: 27 e-Cigarette/Vaping Use: Never Used Second Hand Smoke Exposure: No Advance Directives Date on File: 04/06/21 service: No Current occupational status: disabled Cognitive needs: Yes (wheelchair) Hearing needs: No Vision needs: Yes (Glasses) Meds Allergies Allergy/AdvReac Type Severity Reaction Status Date / Time chlorpheniramine (From Allergy Severe HALLUCINATI Verified 07/31/24 02:52 TUSSIONEX) ONS ciprofloxacin (From CIPRO) Allergy Severe ANAPHYLAXIS Verified 07/31/24 02:52 escitalopram (ESCITALOPRAM) Allergy Severe DISSOCIATIVE Verified 07/31/24 02:52 REACTION fluoxetine (FLUOXETINE) Allergy Severe DISSOCIATIVE Verified 07/31/24 02:52 REACTION hydrocodone (From TUSSIONEX) Allergy Severe HALLUCINATI Verified 07/31/24 02:52 ONS ibuprofen (IBUPROFEN) Allergy Severe THROAT Verified 07/31/24 02:52 SWELLING Sulfa (Sulfonamide Allergy Severe DYSPNEA Verified 07/31/24 02:52 Antibiotics) (SULFA (SULFONAMIDE ANTIBIOTICS)) clarithromycin (From BIAXIN) Allergy Intermediate ABD.PAIN Verified 07/31/24 02:52 duloxetine (DULOXETINE) Allergy Intermediate FACIAL Verified 07/31/24 02:52 NUMBNESS erythromycin base Allergy Intermediate RASH Verified 07/31/24 02:52 (ERYTHROMYCIN BASE) Penicillins (PENICILLINS) Allergy Intermediate RASH Verified 07/31/24 02:52 tetracycline (TETRACYCLINE) Allergy Intermediate DIARRHEA Verified 07/31/24 02:52 codeine (CODEINE) Allergy Unknown TINNITIS Verified 07/31/24 02:52 guaifenesin Allergy Unknown Unknown Verified 07/31/24 02:52 levofloxacin (From Levaquin) Allergy Unknown Unknown Verified 07/31/24 02:52 pregabalin Allergy Unknown Unknown Verified 07/31/24 02:52 Active Medications: Current Medications Acetaminophen (Acetaminophen 325 Mg Tablet) 650 mg PO Q6H PRN PRN Reason: Pain, Mild 1-3,fever,headache Last Admin: 08/01/24 12:48 Dose: 650 mg Atorvastatin Calcium (Atorvastatin Calcium 10 Mg Tablet) 10 mg PO DAILY [facility] Last Admin: 08/03/24 08:17 Dose: 10 mg Calcium Carbonate (Calcium Carbonate 750 Mg Tab.Chew) 750 mg PO Q4H PRN PRN Reason: Heartburn Ferrous Sulfate (Ferrous Sulfate 324 Mg Tablet.Dr) 324 mg PO DAILY [facility] Last Admin: 08/03/24 08:17 Dose: 324 mg Heparin Sodium (Porcine) (Heparin Sodium,Porcine 5,000 Unit/Ml Vial) 5,000 unit SUBCUT Q12H [facility] Last Admin: 08/03/24 08:17 Dose: 5,000 unit Insulin Human Lispro (Insulin Lispro 100 Unit/Ml 3 Ml Vial) 0 unit SUBCUT QIDACHS [facility]; Protocol Last Admin: 08/03/24 11:28 Dose: Not Given Levothyroxine Sodium (Levothyroxine Sodium 112 Mcg Tablet) 112 mcg PO MOTUTHFRSA@0600 [facility] Last Admin: 08/03/24 06:08 Dose: 112 mcg Levothyroxine Sodium (Levothyroxine Sodium 112 Mcg Tablet) 224 mcg PO SUWE@0600 [facility] Last Admin: 08/01/24 05:52 Dose: 224 mcg Magnesium Hydroxide (Milk Of Magnesia 30 Ml Oral.Susp) 30 ml PO DAILY PRN PRN Reason: Constipation Melatonin (Melatonin 3 Mg Tablet) 6 mg PO BEDTIME PRN PRN Reason: Insomnia Last Admin: 08/01/24 21:10 Dose: 6 mg Meropenem (Meropenem 1 Gm Vial) 1 gm IVPUSH Q12H [facility] Last Admin: 08/03/24 08:17 Dose: 1 gm Ondansetron HCl (Ondansetron Hcl 4 Mg/2 Ml Vial) 4 mg IVPUSH Q8H PRN PRN Reason: Nausea and Vomiting Last Admin: 08/01/24 13:06 Dose: 4 mg Pyridoxine HCl (Pyridoxine Hcl (Vitamin B6) 50 Mg Tablet) 100 mg PO DAILY [facility] Last Admin: 08/03/24 08:17 Dose: 100 mg Sodium Chloride (0.9 % Sodium Chloride Flush 3 Ml Syringe) 3 ml IVFLUSH QSHIFT [facility] Last Admin: 08/03/24 08:22 Dose: 3 ml Tramadol HCl (Tramadol Hcl 50 Mg Tablet) 50 mg PO DAILY PRN PRN Reason: Pain, Moderate(Pain Scale 4-6) Last Admin: 08/01/24 21:09 Dose: 50 mg Vitamin D (Cholecalciferol (Vitamin D3) 25 Mcg Tablet) 50 mcg PO DAILY [facility] Last Admin: 08/03/24 08:17 Dose: 50 mcg Home Medications ?Medication ?Instructions ?Recorded ?Confirmed ?Last Taken ?Type atorvastatin 10 mg tablet 10 mg PO DAILY 04/05/21 06/2 06/0107/30/24 History metformin 500 mg tablet,extended 500 mg PO DAILY@1700 04/06/21 07/31/24 07/30/24 History release 24 hr acetaminophen 500 mg tablet 1,000 mg PO Q6H PRN Pain 0 10/04/23 07/31/24 Unknown History levothyroxine 112 mcg tablet 112 mcg PO MOTUTHFRSA@060 0 05/31/24 07/31/24 07/30/24 History Physical Exam 2 Vital Signs: Vital Signs: Last Vital Signs Temp 97.9 F 08/03/24 11:05 Pulse 100 08/03/24 11:05 Resp 18 08/03/24 11:05 BP 100/57 L 08/03/24 11:05 Pulse Ox 98 08/03/24 11:05 O2 Del Method Room Air 08/03/24 11:05 BMI result Body Mass Index 34.0 Const: General: cooperative HEENT: Head: Yes normal to inspection Face and sinus: Yes normal facial exam Mouth: Normal oral and palatal mucosa present Teeth and gingiva: d entition normal Eyes: General: appearance normal, both eyes and all related structures P upils: Equal, round and reactive pupils present Resp: Effort & Inspection: normal respiratory effort Cardio: Rate: regular rate Rhythm: regular rhythm GI: Palpation (GI): Soft to palpation and nontender : General: Yes no CVA tenderness Back/Spine/Pelvis: Back: no CVA tenderness Skin: General skin exam: no rashes or lesions noted Neuro: General: moves all extremities Cranial nerves: Yes Equal, round and reactive pupils present Extrem: General: Yes normal to inspection Psych: Appearance: grossly normal Results Labs 08/03/24 08:08 08/03/24 08:08 Labs: Short CBC 08/03/24 Range/Units 08:08 WBC 6.3 (4.8-10.8) X10*3/uL Hgb 9.3 L (12.0-16.0) g/dl Hct 28.3 L (37.0-47.0) % Plt Count 83 L D (160-400) X10*3/uL BMP 08/03/24 08:08 Sodium 132 L Potassium 3.6 Chloride 104 Carbon Dioxide 19 L BUN 17 H Creatinine 1.36 Calcium 8.0 L Microbiology Microbiology Results: Microbiology 07/31/24 Unknown Urine clean catch - Clean Catch Midstream Urine Culture - Final Klebsiella pneumoniae 07/31/24 03:32 Blood - Venous Blood Culture - Preliminary No growth after 48 hours. 07/31/24 03:32 Blood - Venous Blood Culture - Preliminary No growth after 48 hours. Assessment and Plan (1) Abscess, retroperitoneal: Status: Acute (2) Generalized abdominal pain: Status: Acute Plan 14 days IV Ertapenem also cover retroperitoneal hematoma. Follow CT ensure hematoma decreasing in size. See Urology
--- NOTE | 2024-08-03 13:52 | HO.MIDLINE ---
Midline Insertion MIDLINE INSERTION Diagnosis: [] Indication: [] Pertinent Labs: [] Technique: Using sterile technique including cap and mask, glove and drape, the [] arm was prepped and draped in the usual sterile fashion of full barrier technique with CHG. Using ultrasound guidance, [] vein access was obtained []. [] was positioned. The procedure was performed in []. Ultrasound was used to document vein patency and for needle entry. A formal ultrasound picture was recorded. Vascular Rubber Cutting Machine Tender has released the line for use and it is currently dressed with a StatLock, Tegaderm, and CHG disc. Verification has been performed for blood return and line patency. Arm Circumference: [] Equipment: [] Catheter Type: [] Lot #: []
--- NOTE | 2024-08-03 13:55 | HO.MIDLINE_ITS ---
Midline Insertion MIDLINE INSERTION Diagnosis: Retroperitoneal hematoma Indication: 2 weeks of IV Antibiotics Pertinent Labs: Reviewed Technique: Using sterile technique including cap and mask, glove and drape, the right arm was prepped and draped in the usual sterile fashion of full barrier technique with CHG. Using ultrasound guidance, the patent right basilic vein access was obtained in a single attempt by this RN. a 20guage 8cm NON-PASV Midline was positioned. The procedure was performed in 272. Ultrasound was used to document vein patency and for needle entry. A formal ultrasound picture was recorded. Vascular Office Coordinator Receptionist has released the line for use and it is currently dressed with a StatLock, Tegaderm, and CHG disc. Verification has been performed for blood return and line patency. Arm Circumference: 28 cm Equipment: BARD PowerGlide ST Midline Catheter Catheter Type: 20 guage 8 cm NON-PASV midline Lot #: [id number]
[2024-08-03 14:59] VITALS: BP 127/58; PULSE 91; RESP 17; TEMP 36.2; O2SAT 95
--- NOTE | 2024-08-03 15:08 | MHC.CM.PN ---
Per ID, Patient will need LT IV ABT @ home; referrals have been made and updates sent to active/[facility] & [facility]. CM will continue to follow.
[2024-08-03 15:48] VITALS: BP 127/58; PULSE 91; O2SAT 95
[2024-08-03 16:11] LABS: Glucose, Whole Blood 106 mg/dL (60-115)
[2024-08-03 19:32] VITALS: BP 123/58; PULSE 82; RESP 16; TEMP 36.5; O2SAT 96
[2024-08-03 20:55] LABS: Glucose, Whole Blood 89 mg/dL (60-115)
[2024-08-04] VITALS: BP 124/59; PULSE 79; RESP 16; TEMP 36.7; O2SAT 95
[2024-08-04 03:39] VITALS: BP 116/55; PULSE 90; RESP 16; TEMP 36.7; O2SAT 95
[2024-08-04] MEDS: Levothyroxine Sodium 112 MCG TABLET PO (06:00)
[2024-08-04 07:30] VITALS: BP 114/56; PULSE 79; RESP 18; TEMP 36.7; O2SAT 94
[2024-08-04 07:35] LABS: Glucose, Whole Blood 90 mg/dL (60-115)
--- NOTE | 2024-08-04 09:15 | MHC.CM.PN ---
Addendum entered by Juliann Nava 08/04/24 12:20: [facility] HAS OFFERED A BED AND COMPLETED THE LEVEL ONE PT IS AWARE BLS TRANSPORT WAS BOOKED WITH [facility] FOR 1500 HOURS Original Note: CM MET WITH PT AND S/O AT BEDSIDE THEY ARE AWARE PT WILL NEED IV ABX AND PT AT DC PT IS AGREEABLE TO STR AND REPORTS [facility] IS THE PREFERRED SNF REFERRAL MADE PER MD, PT COULD DC TODAY IF BED SECURED
[2024-08-04] MEDS: Heparin Sodium,Porcine 5,000 UNIT/ML VIAL 5000 UNIT SUBCUT (09:16)
[2024-08-04] MEDS: Meropenem 1 GM VIAL IVPUSH (09:16)
[2024-08-04] MEDS: Pyridoxine HCl (Vitamin B6) 50 MG TABLET 100 MG PO (09:18)
[2024-08-04] MEDS: 0.9 % Sodium Chloride Flush 3 ML SYRINGE IVFLUSH (09:18)
[2024-08-04] MEDS: Cholecalciferol (Vitamin D3) 25 MCG TABLET 50 MCG PO (09:18)
[2024-08-04] MEDS: Ferrous Sulfate 324 MG TABLET.DR PO (09:18)
[2024-08-04] MEDS: Atorvastatin Calcium 10 MG TABLET PO (09:18)
[2024-08-04 11:29] VITALS: BP 124/56; PULSE 74; RESP 18; TEMP 36.6; O2SAT 96
--- NOTE | 2024-08-04 11:29 | PM.DS ---
DS: Providers Provider Date of Service: 08/04/24 Date of admission: 07/31/24 06:42 Date of discharge: 08/04/24 Primary care physician: Ap Deal MD Consults: 08/02/24 11:17 Consult to Infectious Diseases Routine Consulting Provider: [facility] Reason for consultation: Resistant UTI, how to treat? Has provider been notified: No DS: Diagnosis Discharge Diagnosis (1) FELICITA (acute kidney injury): Status: Acute (2) Sepsis secondary to UTI: Status: Acute (3) Urinary tract infection due to ESBL Klebsiella: Status: Acute (4) Acute hypokalemia: Status: Acute (5) Toxic metabolic encephalopathy: Status: Acute (6) Acute lactic acidosis: Status: Acute DS: Summary Hospital Course Hospital Course: Admission note HPI The patient is a 79-year-old femalewith a past medical history of hypertension, hyperlipidemia, yyl-yvfgqzw-ydtxieqol diabetes mellitus, hyperthyroidism, CKD stage 3, history of sigmoid stricture status post Vicki procedure with recent colostomy reversal, prior UTIs with resistant organisms, right retroperitoneal abscess and right-sided ureteric stent placement who presents to the emergency room with altered mental status. The patient underwent removal of right ureteric stent on 07/31/2023. On the evening prior to hospitalization, the patient had weakness resulting in a mechanical fall and landing on her knees. At that time the noted that the patient was very confused. She had been previously at her baseline self. Due to these reasons she was brought to the emergency room. In the ED, the patient had persistent high-grade fevers and workup consistent with UTI and sepsis. Her lactate initially was greater than 4. She has received 3 L of fluid, IV ceftriaxone, IV Tylenol. Her mentation has began to improve but given her prior history she will be admitted to the hospital for further care. Patient is seen and examined in the emergency room around 08:30. She appears fatigued but is alert. She is able to tell me that she sustained a fall yesterday. She reports urinary symptoms of dysuria which began yesterday. She denies any abdominal pain. She reports fevers and chills. She reports nausea without vomiting. Hospital course The patient was admitted for: # Severe sepsis secondary to UTI with ESBL Klebsiella complicated with acute lactic acidosis. Treated with IV Antibiotics of Meropenem with good response. Midline placed. Plan to finish total of 14 days per ID recommendations. Had recent Uretral stent removal. CT of ad/pelvis: The double-J ureteral stent on the right has been removed. Discussed with Urology who recommended outpatient follow up after finishing antibiotics treatment. # FELICITA on CKD 3. Likely from sepsis, hypOtension. Improved back to baseline with holding nephrotoxic medications and give IV fluids. To Hold lisinopril on discharge and follow with PCP after 1 week monitoring of BP. # Acute hypOkalemia, replaced and resolved. # ACute Toxic/metabolic encephalopathy d/t UTI/sepsis, improved back to baseline. Discharge plan Continue Meropenem for 9 more days Follow with Dr Reis as outpatient after finishing antibiotics Hold Lisinopril. Monitor blood pressure for 1 week and discuss with PCP if needs to be restarted The patient will likely need less than 30 days of SNF stay. Time Attestation Discharge Coordination Time (in mins): 43 Quality: Safe Use of Opioids Does Pt have an Active Cancer Diagnosis on the Problem List?: No Quality: Stroke Does the patient have a stroke diagnosis?: No Physical Exam Vital Signs: Vital Signs: Last Vital Signs Temp 98.1 F 08/04/24 07:30 Pulse 79 08/04/24 07:30 Resp 18 08/04/24 07:30 BP 114/56 L 08/04/24 07:30 Pulse Ox 94 08/04/24 07:30 O2 Del Method Room Air 08/04/24 07:30 BMI result Body Mass Index 34.0 DS: Data Data Completed and Pending Completed studies during hospitalization [Text1]: Procedures Bypass Descending Colon to Cutaneous, Open Approach (10/04/23) Dilation of Right Ureter with Intraluminal Device, Via Natural or Artificial Opening Endoscopic (04/25/23) Drainage of Retroperitoneum with Drainage Device, Percutaneous Approach (12/08/21) Excision of Large Intestine, Via Natural or Artificial Opening Endoscopic, Diagnostic (04/25/23) Excision of Sigmoid Colon, Open Approach (10/04/23) Excision of Small Intestine, Open Approach (02/20/24) Extirpation of Matter from Right Ureter, Via Natural or Artificial Opening Endoscopic (04/05/21) Fluoroscopy of Right Kidney, Ureter and Bladder (04/25/23) Introduction of Anesthetic Agent into Peripheral Nerves and Plexi, Percutaneous Approach (02/20/24) Release Peritoneum, Open Approach (02/20/24) Reposition Descending Colon, Open Approach (02/20/24) Labs on day of discharge: Laboratory Results - last 24 hr 08/03/24 08/03/24 08/03/24 10:52 16:08 20:35 POC Glucose 106 89 Troponin I High Sens 27.4 H D 08/04/24 07:29 POC Glucose 90 Troponin I High Sens Preliminary micro results at discharge 07/31/24 03:32 Blood Culture - Preliminary Blood - Venous No growth after 48 hours. 07/31/24 03:32 Blood Culture - Preliminary Blood - Venous No growth after 48 hours. Imaging Chest x-ray: Radiologist's impression: Impression: The double-J ureteral stent on the right has been removed. Mild fullness of the bilateral ureters without ureteral calculus. Bilateral renal calculi, similar to prior. Distended gallbladder with several gallstones. Cirrhotic liver. Nonspecific stranding about the abdomen and pelvis as detailed. Discharge Plan Discharge Anticipated Discharge Date/Time: 08/04/24 11:22 Patient Disposition: Xfer [facility] Discharge Diagnosis: ESBL Klebsiella UTI Referrals: Ap Deal MD [Primary Care Provider, Internal Medicine] - 1 Week Discharge Medications: New meropenem 1 gram Recon Soln 1 g IVPUSH Q12H Qty: 18 0RF Continued (DME) Wheel chair Kit See Rx Instructions .Route Qty: 1 0RF Rx Instructions: As directed; Manual 20 inch travel wheelchair with seat cushion and foot rests; Height 5ft 1.25 inches; Weight 191 lbs; ; QUANTITY OF 1; length of need 99 levothyroxine 112 mcg tablet 224 mcg PO SUWE@0600 Qty: 90 0RF cholecalciferol (vitamin D3) 25 mcg (1,000 unit) capsule 50 mcg PO DAILY Qty: 90 1RF pyridoxine (vitamin B6) 50 mg tablet 100 mg PO DAILY Qty: 180 1RF atorvastatin 10 mg tablet 10 mg PO DAILY metformin 500 mg tablet extended release 24 hr 500 mg PO DAILY@1700 furosemide 40 mg tablet 40 mg PO DAILY Qty: 30 0RF acetaminophen 500 mg Tablet 1,000 mg PO Q6H PRN (Reason: Pain) levothyroxine 112 mcg tablet 112 mcg PO MOTUTHFRSA@0600 tramadol 50 mg tablet 50 mg PO DAILY PRN (Reason: Pain) Qty: 15 0RF ferrous sulfate 325 mg (65 mg iron) tablet 325 mg PO DAILY Qty: 90 1RF Held lisinopril 10 mg tablet 10 mg PO DAILY Qty: 90 1RF Hold Instructions: Monitor blood pressure for 1 week and discuss with PCP if needs to be restarted Discharge Orders: Discharge Order (Routine); Ordered 08/04/24 Ordered By: Easton Martínez Diet: Diabetic diet Activity on Discharge: As tolerated Stand Alone Forms: Patient Portal Discharge page Print Language: Serbian Care Plan Goals: Continue Meropenem for 9 more days Follow with Dr Reis as outpatient after finishing antibiotics Hold Lisinopril. Monitor blood pressure for 1 week and discuss with PCP if needs to be restarted Health Concerns: ESBL UTI Plan of Treatment: Antibiotics Assessment: as above
[2024-08-04 11:36] LABS: Glucose, Whole Blood 117 mg/dL (60-115)
--- OUTSIDE RECORDS SUMMARY | 2024-09-02 20:00 | XMS_ITS | Clinical Summary ---
Author Organization Unknown Care Team Providers Care Assistant Women'S Basketball Coach Name Role Phone VLAD SERNA, BEAR Unavailable Unavailab ab KOCH RN, ABIEL Unavailable Unavailable JERROD RN, ADMISSION NURSE, MALIKA Unavail able Unavailable ANABELLA RN, SHAYY Unavailable Unavailable Payers Payer Name Policy Type Policy Number Effective Date Expira tion Date MEDICARE - [facility] [id number] [facility] [id number] Problems Condition Name Condition Details Condition Category Status Onset Date Resolution Date Last Treatment Date Treating Clinician Comments HYPERTENSIVE CHRONIC KIDNEY DISEASE W STG 1-4/UNSP CHR KDNY Active 02-07 00:00: 00 TYPE 2 DIABETES MELLITUS W DIABETIC CHRONIC KIDNEY DISEASE Active 02-07 00:00: 00 CHRONIC KIDNEY DISEASE, STAGE 3B Active 02-07 00:00: 00 ANEMIA IN CHRONIC KIDNEY DISEASE Active 02-07 00:00: 00 ENCNTR FOR SURGICAL AFTCR FOLLOWING SURGERY ON THE DGSTV SYS Active 02-07 00:00: 00 CUTANEOUS ABSCESS OF BACK [ANY PART, EXCEPT BUTTOCK] Active 02-07 00:00: 00 TYPE 2 DIABETES MELLITUS WITH DIABETIC NEUROPATHY, UNSP Active 02-07 00:00: 00 CHRONIC OBSTRUCTIVE PULMONARY DISEASE, UNSPECIFIED Active 02-07 00:00: 00 COLOSTOMY STATUS Active [...] OF NICOTINE DEPENDENCE Active 02-07 00:00: 00 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 HYPOGLYCEMIC DRUGS Active 02-07 00:00: 00 FDC (CURRENT) USE OF OPIATE ANALGESIC Active 02-07 [...] 10 mg tablet 2023-02 00:00: 00 Yes [id number] 1 tablet DAILY 1 tablet DAILY (route: oral) Med Classific ation: Cardiovas cular Therapy Agents B-complex with vitamin C 400 mcg-500 mg tablet 2023-02 0- 00:00: 00 Yes [id number] 1 tablet DAILY 1 tablet DAILY (route: oral) Med Classific ation: Electroly te Balance-N utritiona l Products clindamycin HCl 300 mg capsule 10-27 00:00: 00 11-10 23:59 :00 No [id number] 1 capsule EVERY 6 HOURS 1 capsule EVERY 6 HOURS (route: oral) Med Classific ation: Anti-Infe ctive Agents furosemide 40 mg tablet 2023-02 0 00:00: 00 Yes [id number] 1 tablet DAILY 1 tablet DAILY (route: oral) Med Classific ation: Cardiovas cular Therapy Agents levothyroxi ne 112 mcg tablet 2023-02 00:00: 00 04-25 23:59 :00 No [id number] 1 tablet DAILY 1 tablet DAILY (route: oral) Med Classific ation: Endocrine metformin 500 mg tablet 2023-02 00:00: 00 Yes [id number] 1 tablet DAILY 1 tablet DAILY (route: oral) Med Classific ation: Endocrine Probiotic Acidophilus 250 million cell capsule 2023-02 0 00:00: 00 Yes [id number] 1 capsule DAILY 1 capsule DAILY (route: oral) Med Classific ation: Gastroint estinal Therapy Agents tramadol 50 mg tablet 2023-02 0 00:00: 00 Yes [id number] 1 tablet 3 TIMES DAILY 1 tablet 3 TIMES DAILY (route: oral) Med Classific ation: Analgesic , Anti-infl ammatory or Antipyret ic Vitamin D3 25 mcg (1,000 unit) capsule 2023-02 0 00:00: 00 Yes [id number] 2 capsule DAILY 2 capsule DAILY (route: oral) Med Classific ation: Electroly te Balance-N utritiona l Products acetaminoph en 500 mg tablet 2-24 00:00: 00 Yes [id number] 2 tablet EVERY 6 HOURS 2 tablet EVERY 6 HOURS (route: oral) Med Classific ation: Analgesic , Anti-infl ammatory or Antipyret ic hydrocodone 5 mg-acetamin ophen 325 mg tablet 04-02 00:00: 00 Yes [id number] 1 tablet EVERY 4 HOURS 1 tablet EVERY 4 HOURS (route: oral) Med Classific ation: Analgesic , Anti-infl ammatory or Antipyret ic levothyroxi ne 112 mcg tablet 04-02 00:00: 00 Yes [id number] 2 tablet DAILY 2 tablet DAILY (route: oral) Med Classific ation: Endocrine levothyroxi ne 112 mcg tablet 04-02 00:00: 00 Yes [id number] 1 tablet DAILY 1 tablet DAILY (route: oral) Med Classific ation: Endocrine cefuroxime axetil 500 mg tablet 06-08 00:00: 00 06-15 23:59 :00 No [id number] 1 tablet EVERY 12 HOURS 1 tablet EVERY 12 HOURS (route: oral) Med Classific ation: Anti-Infe ctive Agents metronidazo le 500 mg tablet 06-08 00:00: 00 06-15 23:59 :00 No [id number] 1 tablet EVERY 12 HOURS 1 tablet EVERY 12 HOURS (route: oral) Med Classific ation: Anti-Infe ctive Agents Immunizations Ordered Immunization Name Filled Immunization Name Date Status Comments Refusal Reason COVID-19, COVID-19 2020-11-07 00:00:00 Vital Signs Vital Name Observation Time Observation Value Commen ts Temperature 2024-07-26 13:11:00.000 98.3 [degF] Temperature 2024-07-24 13:19:00.000 98 [degF] Temperature 2024-07-19 12:23:00.000 98 [degF] Temperature 2024-07-17 12:32:00.000 97.5 [degF] Temperature 2024-07-12 12:32:00.000 98.4 [degF] Temperature 2024-07-10 12:41:00.000 98 [degF] Pulse 2024-07-26 13:11:00.000 89 /min Pulse 2024-07-24 13:19:00.000 83 /min Pulse 2024-07-19 12:23:00.000 82 /min Pulse 2024-07-17 12:32:00.000 61 /min Pulse 2024-07-12 12:32:00.000 95 /min Pulse 2024-07-10 12:41:00.000 77 /min O2 Saturation (%) 2024-07-26 13:11:00.000 97 % O2 Saturation (%) 2024-07-24 13:19:00.000 97 % O2 Saturation (%) 2024-07-19 12:23:00.000 98 % O2 Saturation (%) 2024-07-17 12:32:00.000 98 % O2 Saturation (%) 2024-07-12 12:32:00.000 97 % O2 Saturation (%) 2024-07-10 12:41:00.000 97 % Respirations 2024-07-26 13:11:00.000 18 /min Respirations 2024-07-24 13:19:00.000 18 /min Respirations 2024-07-19 12:23:00.000 18 /min Respirations 2024-07-17 12:32:00.000 18 /min Respirations 2024-07-12 12:32:00.000 18 /min Respirations 2024-07-10 12:41:00.000 18 /min Systolic Blood Pressure 2024-07-26 13:11:00.000 106 mm [Hg] Systolic Blood Pressure 2024-07-24 13:19:00.000 104 mm [Hg] Systolic Blood Pressure 2024-07-19 12:23:00.000 118 mm [Hg] Systolic Blood Pressure 2024-07-17 12:32:00.000 110 mm [Hg] Systolic Blood Pressure 2024-07-12 12:32:00.000 112 mm [Hg] Systolic Blood Pressure 2024-07-10 12:41:00.000 120 mm [Hg] Diastolic Blood Pressure 2024-07-26 13:11:00.000 [...] MAINTAIN SITUATIONAL AWARENESS AND WILL NOTIFY CLINICAL PROGRAM PROPOSALS COORDINATOR AND PHYSICIAN/PROVIDER WITH ANY CHANGE IN CONDITION. [code = SKILLED NURSE TO PERFORM ENVIRONMENTAL SAFETY RISK ASSESSMENT AND FALL RISK ASSESSMENT AND PROVIDE INSTRUCTION TO IMPLEMENT ENVIRONMENTAL SAFETY AND FALL PREVENTION STRATEGIES THROUGHOUT THE CERTIFICATION PERIOD. SKILLED NURSE WILL MAINTAIN SITUATIONAL AWARENESS AND WILL NOTIFY CLINICAL PROGRAM PROPOSALS COORDINATOR AND PHYSICIAN/PROVIDER WITH ANY CHANGE IN [...] AGENCY OR PHYSICIAN/PROVIDER OF ANY CONCERNS.] Goal Patient Goal - I WANT TO HEAL AND GET BETTER FAST. Goal 2024-06-09 Patient Goal - I WANT TO HEAL AND GET BETTER FAST. Goal 2024-07-03 Patient Goal - I WANT [...] Date: 2024 by MALIKA ELDER RN, ADMISSION NURSE]:</paragraph><paragraph>JOSH 07/26/24 1. ABNORMAL FINDINGS/SIGNIFICANT CHANGES: ALL VITALS WITHIN PARAMETERS OF SYSTEMS WITHIN NORMAL LIMITS 2. CARE COORDINATION DETAILS: NONE NEEDED 3. SKILLED PROCEDURE PERFORMED THIS VISIT: WOUND CARE 4. NEXT PHYSICIAN/PROVIDER APPT: WOUND CLINIC 5. PLAN/FOLLOW-UP NEEDED FOR NEXT VISIT: WOUND CARE/INFECTION CONTROL MEASURES EDUCATION ADDRESS ABOVE APPROPRIATE IN NARRATIVE BELOW: PATIENT ALERT ORIENTATED X3 IN GOOD SPIRITS SITTING UP IN HER POUCH. PATIENT DENIES ANY FEVERS CHILLS NAUSEA VOMITING DIARRHEA ABNORMAL SHORTNESS OF BREATH CHEST PAIN. PATIENT'S LUNG SOUNDS TODAY CLEAR NO WHEEZING OR CRACKLES NO LOWER EXTREMITY EDEMA BOWEL SOUNDS X4 LAST BOWEL MOVEMENT TODAY. PATIENT'S WOUND CARE COMPLETED PATIENT TOLERATED WELL NO SIGNS AND SYMPTOMS OF INFECTION PATIENT FOLLOWED BY WOUND CLINIC BIWEEKLY NO NEW ORDERS. PATIENT EDUCATED ON SIGNS AND SYMPTOMS OF INFECTION WELL DIABETES. PATIENT EDUCATED ON CALLING [facility] FOR ANY CONCERNS OR CHANGE IN CONDITION WELL NEXT SN VISIT PATIENT VERBALIZED UNDERSTANDING AND AGREES WITH PLAN. PATIENT DENIES ANY RECENT FALLS OR ED VISITS OR MEDICATION CHANGES</paragraph> Encounters Start Date/Time End Date/Time Encounter Type Admission Type Attending [facility] Facility Care Department Encounter ID Discharge Date Discharge Status Discharge Condition Discharge Reason Percent Goals Met 2024-07-06 00:00:00 2024-09-03 00:00:00 Outpatient RECERTIFIC ATION SHAYY KYLE [facility] [id number] 28.13
== END 2024-08-04 15:28 | disposition skilled nursing facility (03) | DRG 871 ==
LOC: HO.ED 06:15 → HO.EDOVER 06:44 → HO.S3 07:18 → HO.EDOVER 10:31 → HO.IMC 19:13
PROVIDERS: Family Medicine; Internal Medicine; Admitting Provider Student in an Organized Health Care Education/Training Program; Emergency Provider Emergency Medicine; PCP Internal Medicine; Visit Provider Student in an Organized Health Care Education/Training Program
DX: A41.9 Sepsis, unspecified organism (principal); G92.8 Other toxic encephalopathy; Z16.12 Extended spectrum beta lactamase (ESBL) resistance; R65.20 Severe sepsis without septic shock; I48.91 Unspecified atrial fibrillation; E03.9 Hypothyroidism, unspecified; N18.30 Chronic kidney disease, stage 3 unspecified; K74.60 Unspecified cirrhosis of liver; B96.1 Klebsiella pneumoniae [K. pneumoniae] as the cause of diseases classified elsewhere; I95.9 Hypotension, unspecified; E87.6 Hypokalemia; E11.22 Type 2 diabetes mellitus with diabetic chronic kidney disease; I12.9 Hypertensive chronic kidney disease with stage 1 through stage 4 chronic kidney disease, or unspecified chronic kidney disease; Z20.822 Contact with and (suspected) exposure to COVID-19; Z87.891 Personal history of nicotine dependence; Z79.84 Long term (current) use of oral hypoglycemic drugs; Z79.890 Hormone replacement therapy; Z79.899 Other long term (current) drug therapy
CPT/HCPCS: 0241U; 36410; 36415; 71045; 74176; 80048; 80076; 81001; 81003; 82947; 83605; 83690; 83735; 84439; 84443; 84484; 85025; 85027; 87040; 87086; 87088; 87186; 87493; 93005; 97162; 99285; J0131; J0696; J1644; J2185; J2405; J7120; P9047

== ENCOUNTER → 2024-07-31 02:47 | Outpatient (BNV) | payer MEDICARE, SELFPAY | PROVIDERS: Admitting Provider Student in an Organized Health Care Education/Training Program; Emergency Provider Emergency Medicine; Visit Provider Internal Medicine | DX: I45.10 Unspecified right bundle-branch block (principal) | CPT/HCPCS: 93010 ==

== ENCOUNTER → 2024-07-31 02:49 | Outpatient (BNV) | payer MEDICARE, SELFPAY | PROVIDERS: Admitting Provider Student in an Organized Health Care Education/Training Program; Emergency Provider Emergency Medicine; Visit Provider Radiology Vascular & Interventional Radiology | DX: R50.9 Fever, unspecified (principal) | CPT/HCPCS: 71045 ==

== ENCOUNTER 2024-07-31 06:42 | Outpatient (BNV) | payer MEDICARE, SELFPAY | END 2024-08-01 17:40 | PROVIDERS: Admitting Provider Student in an Organized Health Care Education/Training Program; Emergency Provider Emergency Medicine; Visit Provider Radiology Vascular & Interventional Radiology | DX: K74.60 Unspecified cirrhosis of liver (principal) | CPT/HCPCS: 74176 ==

== ENCOUNTER → 2024-07-31 06:42 | Outpatient (BNV) | payer MEDICARE, SELFPAY | PROVIDERS: Admitting Provider Student in an Organized Health Care Education/Training Program; Emergency Provider Emergency Medicine; PCP Internal Medicine; Visit Provider Internal Medicine | DX: K68.19 Other retroperitoneal abscess (principal); R10.84 Generalized abdominal pain | CPT/HCPCS: 99232 ==

== ENCOUNTER → 2024-07-31 06:42 | Outpatient (BNV) | payer MEDICARE, SELFPAY | PROVIDERS: Admitting Provider Student in an Organized Health Care Education/Training Program; Emergency Provider Emergency Medicine; Visit Provider Family Medicine | DX: N17.9 Acute kidney failure, unspecified (principal); A41.9 Sepsis, unspecified organism; N39.0 Urinary tract infection, site not specified; B96.89 Other specified bacterial agents as the cause of diseases classified elsewhere; E87.6 Hypokalemia; G92.8 Other toxic encephalopathy; E87.21 Acute metabolic acidosis | CPT/HCPCS: 99233; 99239 ==

== ENCOUNTER 2024-09-07 13:30 | Outpatient (AMB) | payer MEDICARE, SELFPAY ==
--- OUTSIDE RECORDS SUMMARY | 2024-09-02 20:00 | XMS_ITS | Clinical Summary ---
Author Organization Unknown Care Team Providers Care [employer] Clerk Name Role Phone VLAD SERNA, BEAR Unavailable Unavailab ab KOCH RN, ABIEL Unavailable Unavailable JERROD RN, ADMISSION NURSE, MALIKA Unavail able Unavailable ANABELLA RN, SHAYY Unavailable Unavailable Payers Payer Name Policy Type Policy Number Effective Date Expira tion Date MEDICARE - [facility] [id number] [facility] [id number] Problems Condition Name Condition Details Condition Category Status Onset Date Resolution Date Last Treatment Date Treating Clinician Comments HYPERTENSIVE CHRONIC KIDNEY DISEASE W STG 1-4/UNSP CHR KDNY Active 02-07 00:00: 00 TYPE 2 DIABETES MELLITUS W DIABETIC CHRONIC KIDNEY DISEASE Active 02-07 00:00: 00 CHRONIC KIDNEY DISEASE, STAGE 3B Active 02-07 00:00: 00 ANEMIA IN CHRONIC KIDNEY DISEASE Active 02-07 00:00: 00 CUTANEOUS ABSCESS OF BACK [ANY PART, EXCEPT BUTTOCK] Active 02-07 00:00: 00 TYPE 2 DIABETES MELLITUS WITH DIABETIC NEUROPATHY, UNSP Active 02-07 00:00: 00 CHRONIC OBSTRUCTIVE PULMONARY DISEASE, UNSPECIFIED Active 02-07 00:00: 00 UNSPECIFIED RIGHT BUNDLE-BRANC H BLOCK Active 02-07 00:00: 00 OTHER RETROPERITON EAL ABSCESS Active 08-30 00:00: 00 OBSTRUCTIVE AND REFLUX UROPATHY, UNSPECIFIED Active 08-30 00:00: 00 FATTY (CHANGE OF) LIVER, NOT [...] [BMI] 37.0-37.9, ADULT Active 02-07 00:00: 00 RESIDENTIAL (CURRENT) USE OF ORAL HYPOGLYCEMIC DRUGS Active 02-07 00:00: 00 TOPOLOGY PROFESSOR (CURRENT) USE OF OPIATE ANALGESIC Active 02-07 [...] 10 mg tablet 2023-02 00:00: 00 Yes [id number] 1 tablet DAILY 1 tablet DAILY (route: oral) Med Classific ation: Cardiovas cular Therapy Agents B-complex with vitamin C 400 mcg-500 mg tablet 2023-02 00:00: 00 Yes [id number] 1 tablet DAILY 1 tablet DAILY (route: oral) Med Classific ation: Electroly te Balance-N utritiona l Products clindamycin HCl 300 mg capsule 10-27 00:00: 00 11-10 23:59 :00 No [id number] 1 capsule EVERY 6 HOURS 1 capsule EVERY 6 HOURS (route: oral) Med Classific ation: Anti-Infe ctive Agents furosemide 40 mg tablet 2023-02 00:00: 00 Yes [id number] 1 tablet DAILY 1 tablet DAILY (route: oral) Med Classific ation: Cardiovas cular Therapy Agents levothyroxi ne 112 mcg tablet 2023-02 00:00: 00 04-25 23:59 :00 No [id number] 1 tablet DAILY 1 tablet DAILY (route: oral) Med Classific ation: Endocrine metformin 500 mg tablet 2023-02 00:00: 00 Yes [id number] 1 tablet DAILY 1 tablet DAILY (route: oral) Med Classific ation: Endocrine Probiotic Acidophilus 250 million cell capsule 2023-02 00:00: 00 Yes [id number] 1 capsule DAILY 1 capsule DAILY (route: oral) Med Classific ation: Gastroint estinal Therapy Agents tramadol 50 mg tablet 2023-02 00:00: 00 Yes [id number] 1 tablet 3 TIMES DAILY 1 tablet 3 TIMES DAILY (route: oral) Med Classific ation: Analgesic , Anti-infl ammatory or Antipyret ic Vitamin D3 25 mcg (1,000 unit) capsule 2023-02 00:00: 00 Yes [id number] 2 capsule DAILY 2 capsule DAILY (route: oral) Med Classific ation: Electroly te Balance-N utritiona l Products acetaminoph en 500 mg tablet 04-02 00:00: 00 Yes [id number] 2 tablet EVERY 6 HOURS 2 tablet EVERY 6 HOURS (route: oral) Med Classific ation: Analgesic , Anti-infl ammatory or Antipyret ic hydrocodone 5 mg-acetamin ophen 325 mg tablet 04-02 00:00: 00 Yes [id number] 1 tablet EVERY 4 HOURS 1 tablet EVERY 4 HOURS (route: oral) Med Classific ation: Analgesic , Anti-infl ammatory or Antipyret ic levothyroxi ne 112 mcg tablet 04-02 00:00: 00 Yes [id number] 2 tablet DAILY 2 tablet DAILY (route: oral) Med Classific ation: Endocrine levothyroxi ne 112 mcg tablet 04-02 00:00: 00 Yes [id number] 1 tablet DAILY 1 tablet DAILY (route: oral) Med Classific ation: Endocrine cefuroxime axetil 500 mg tablet 06-08 00:00: 00 06-15 23:59 :00 No [id number] 1 tablet EVERY 12 HOURS 1 tablet EVERY 12 HOURS (route: oral) Med Classific ation: Anti-Infe ctive Agents metronidazo le 500 mg tablet 06-08 00:00: 00 06-15 23:59 :00 No [id number] 1 tablet EVERY 12 HOURS 1 tablet EVERY 12 HOURS (route: oral) Med Classific ation: Anti-Infe ctive Agents Immunizations Ordered Immunization Name Filled Immunization Name Date Status Comments Refusal Reason COVID-, COVID-19 2020-11-07 00:00:00 Vital Signs Vital Name Observation Time Observation Value Commen ts Temperature 2024-09-06 08:09:00.000 97.8 [degF] Temperature 2024-07-26 13:11:00.000 98.3 [degF] Temperature 2024-07-24 13:19:00.000 98 [degF] Temperature 2024-07-19 12:23:00.000 98 [degF] Temperature 2024-07-17 12:32:00.000 97.5 [degF] Temperature 2024-07-12 12:32:00.000 98.4 [degF] Temperature 2024-07-10 12:41:00.000 98 [degF] BMI (%) 2024-09-06 07:35:36.000 31 kg/m2 Height 2024-09-06 07:35:27.000 63 [in_us] Pulse 2024-09-06 08:09:00.000 75 /min Pulse 2024-07-26 13:11:00.000 89 /min Pulse 2024-07-24 13:19:00.000 83 /min Pulse 2024-07-19 12:23:00.000 82 /min Pulse 2024-07-17 12:32:00.000 61 /min Pulse 2024-07-12 12:32:00.000 95 /min Pulse 2024-07-10 12:41:00.000 77 /min O2 Saturation (%) 2024-09-06 08:09:00.000 98 % O2 Saturation (%) 2024-07-26 13:11:00.000 97 % O2 Saturation (%) 2024-07-24 13:19:00.000 97 % O2 Saturation (%) 2024-07-19 12:23:00.000 98 % O2 Saturation (%) 2024-07-17 12:32:00.000 98 % O2 Saturation (%) 2024-07-12 12:32:00.000 97 % O2 Saturation (%) 2024-07-10 12:41:00.000 97 % Respirations 2024-09-06 08:09:00.000 18 /min Respirations 2024-07-26 13:11:00.000 18 /min Respirations 2024-07-24 13:19:00.000 18 /min Respirations 2024-07-19 12:23:00.000 18 /min Respirations 2024-07-17 12:32:00.000 18 /min Respirations 2024-07-12 12:32:00.000 18 /min Respirations 2024-07-10 12:41:00.000 18 /min Weight (lbs) 2024-09-06 07:35:36.000 180 [lb_av] Systolic Blood Pressure 2024-09-06 08:09:00.000 110 mm [Hg] Systolic Blood Pressure 2024-07-26 13:11:00.000 106 mm [Hg] Systolic Blood Pressure 2024-07-24 13:19:00.000 104 mm [Hg] Systolic Blood Pressure 2024-07-19 12:23:00.000 118 mm [Hg] Systolic Blood Pressure 2024-07-17 12:32:00.000 110 mm [Hg] Systolic Blood Pressure 2024-07-12 12:32:00.000 112 mm [Hg] Systolic Blood Pressure 2024-07-10 12:41:00.000 120 mm [Hg] Diastolic Blood Pressure 2024-09-06 08:09:00.000 64 mm [Hg] Diastolic Blood Pressure 2024-07-26 13:11:00.000 62 mm [Hg] Diastolic Blood Pressure 2024-07-24 13:19:00.000 62 mm [Hg] Diastolic Blood Pressure 2024-07-19 12:23:00.000 60 mm [Hg] Diastolic Blood Pressure 2024-07-17 12:32:00.000 62 mm [Hg] Diastolic Blood Pressure 2024-07-12 12:32:00.000 62 mm [Hg] Diastolic Blood Pressure 2024-07-10 12:41:00.000 68 mm [Hg] Plan of Treatment Planned Activity [...] FEELINGS.] Future Scheduled Test SKILLED NU RSE MAY COLLECT URINE SAMPLE FOR URINE REAGENT STRIP TESTING AND/OR URINALYSIS WITH CS 1-3 PRN IF INDICATED FOR SIGNS AND SYMPTOMS OF UTI. IF REAGENT STRIP TEST IS POSITIVE FOR UTI, SKILLED NURSE TO TAKE URINE SAMPLE TO LAB FOR URINE CS AND REPORT RESULTS TO PHYSICIAN. [code = SKILLED NURSE MAY COLLECT URINE SAMPLE FOR URINE REAGENT STRIP TESTING AND/OR URINALYSIS WITH CS 1-3 PRN IF INDICATED FOR SIGNS AND SYMPTOMS OF UTI. IF REAGENT STRIP TEST IS POSITIVE FOR UTI, SKILLED NURSE TO TAKE URINE SAMPLE TO LAB FOR URINE CS AND REPORT RESULTS TO PHYSICIAN.] Future Scheduled Test SKILLED NU RSE FOR O/A, TEACHING AND MANAGEMENT OF CKD FOR EARLY IDENTIFICATION OF EXACERBATION OF DISEASE PROCESS [code = SKILLED NURSE FOR O/A, TEACHING AND MANAGEMENT OF CKD FOR EARLY IDENTIFICATION OF EXACERBATION OF DISEASE PROCESS] Future Scheduled Test NEED FOR S KILLED TEACHING AND INTERVENTION RELATED TO CUTANEOUS ABCESS TO R FLANK SKILLED NURSE OR TRAINED PATIENT/CAREGIVER TO PERFORM WOUND CARE USING CLEAN TECHNIQUE, CLEANSE/IRRIGATE WITH RIGHT FLANK WOUND CLEANSED WITH NORMAL SALINE OR VASHE, PAT DRY AREA. USE SKIN PREP TO SURROUNDING SKIN, COVER WITH OPTIFOAM SILICONE BASED FOAM AND BORDER DRESSING. PATIENT'S FIANCE WILL COMPLETE WOUND DRESSING CHANGE WHEN SN IS NOT DUE WOUND CARE TO BE PERFORMED 3X PER WEEK AND PRN IF SOILED OR DISLODGED. 1-2 PRN SKILLED NURSE VISITS FOR WOUND CARE DUE TO COMPLICATIONS. SKILLED NURSE TO OBTAIN WOUND CULTURE PRN S/S OF INFECTION. WOUND CARE WILL BE PERFORMED BY TRAINED CAREGIVER ON DAYS WHEN SKILLED NURSE IS NOT SCHEDULED FOR A VISIT. DISCONTINUE WOUND CARE/SUPPLIES ONCE WOUND IS HEALED. [code = NEED FOR SKILLED TEACHING AND INTERVENTION RELATED TO CUTANEOUS ABCESS TO R FLANK SKILLED NURSE OR TRAINED PATIENT/CAREGIVER TO PERFORM WOUND CARE USING CLEAN TECHNIQUE, CLEANSE/IRRIGATE WITH RIGHT FLANK WOUND CLEANSED WITH NORMAL SALINE OR VASHE, PAT DRY AREA. USE SKIN PREP TO SURROUNDING SKIN, COVER WITH OPTIFOAM SILICONE BASED FOAM AND BORDER DRESSING. PATIENT'S FIANCE WILL COMPLETE WOUND DRESSING CHANGE WHEN SN IS NOT DUE WOUND CARE TO BE PERFORMED 3X PER WEEK AND PRN IF SOILED OR DISLODGED. 1-2 PRN SKILLED NURSE VISITS FOR WOUND CARE DUE TO COMPLICATIONS. SKILLED NURSE TO OBTAIN WOUND CULTURE PRN S/S OF INFECTION. WOUND CARE WILL BE PERFORMED BY TRAINED CAREGIVER ON DAYS WHEN SKILLED NURSE IS NOT SCHEDULED FOR A VISIT. DISCONTINUE WOUND CARE/SUPPLIES ONCE WOUND IS HEALED.] Future Scheduled Test SKILLED NU RSE TO OBTAIN BLOOD SUGAR PRN FOR SIGNS AND SYMPTOMS OF HYPO/HYPERGLYCEMIA. IF OBTAINED BY PATIENT/CAREGIVER PRIOR TO VISIT AND PATIENT IS NOT SYMPTOMATIC, SKILLED NURSE TO RECORD READING FROM PATIENT LOG. [code = SKILLED NURSE TO OBTAIN BLOOD SUGAR PRN FOR SIGNS AND SYMPTOMS OF HYPO/HYPERGLYCEMIA. IF OBTAINED BY PATIENT/CAREGIVER PRIOR TO VISIT AND PATIENT IS NOT SYMPTOMATIC, SKILLED NURSE TO RECORD READING FROM PATIENT LOG.] Future Scheduled Test SKILLED NU RSE FOR [...] TO SIGNS AND SYMPTOMS AND MANAGEMENT OF ANEMIA OF CKD [code = SKILLED NURSE FOR O/A AND SKILLED TEACHING RELATED TO SIGNS AND SYMPTOMS AND MANAGEMENT OF ANEMIA OF CKD] Future Scheduled Test SKILLED NU RSE FOR [...] MAINTAIN SITUATIONAL AWARENESS AND WILL NOTIFY CLINICAL BANK CREDIT CARD COLLECTION CLERK AND PHYSICIAN/PROVIDER WITH ANY CHANGE IN CONDITION. [code = SKILLED NURSE TO PERFORM ENVIRONMENTAL SAFETY RISK ASSESSMENT AND FALL RISK ASSESSMENT AND PROVIDE INSTRUCTION TO IMPLEMENT ENVIRONMENTAL SAFETY AND FALL PREVENTION STRATEGIES THROUGHOUT THE CERTIFICATION PERIOD. SKILLED NURSE WILL MAINTAIN SITUATIONAL AWARENESS AND WILL NOTIFY CLINICAL BANK CREDIT CARD COLLECTION CLERK AND PHYSICIAN/PROVIDER WITH ANY CHANGE IN CONDITION.] Future Scheduled Test SKILLED NU RSE FOR OBSERVATION AND ASSESSMENT OF PATIENTS PAIN LEVEL AND EFFECTIVENESS OF PAIN MANAGEMENT REGIMEN. SKILLED NURSE TO INSTRUCT PATIENT/CAREGIVER REGARDING PHARMACOLOGIC AND NON-PHARMACOLOGIC PAIN CONTROL MEASURES. SKILLED NURSE TO REPORT TO PHYSICIAN IF PAIN LEVEL IS OUTSIDE OF ESTABLISHED PARAMETERS. [code = SKILLED NURSE FOR OBSERVATION AND ASSESSMENT OF PATIENTS PAIN LEVEL AND EFFECTIVENESS OF PAIN MANAGEMENT REGIMEN. SKILLED NURSE TO INSTRUCT PATIENT/CAREGIVER REGARDING PHARMACOLOGIC AND NON-PHARMACOLOGIC PAIN CONTROL MEASURES. SKILLED NURSE TO REPORT TO PHYSICIAN IF PAIN LEVEL IS OUTSIDE OF ESTABLISHED PARAMETERS.] Future Scheduled Test SKILLED NU RSE TO [...] TO HEAL AND GET BETTER FAST Goal 2024-08-30 Patient Goal - I WANT TO HEAL AND GET BETTER FAST. Goal 2024-06-09 Patient Goal - I WANT TO HEAL AND GET BETTER FAST. Goal Patient Goal - I WANT TO HEAL AND GET BETTER FAST Goal 2024-07-03 Patient Goal - I WANT TO HEAL AND GET BETTER FAST. Goal 2024-06-05 Patient Goal - I WANT TO HEAL AND GET BETTER FAST. Goal 2024-04-03 Patient Goal - I WANT TO HEAL AND GET BETTER FAST. Goal 2024-02-29 Patient Goal - I WANT TO HEAL AND GET BETTER FAST Goal 2024-05-03 Patient Goal - I WANT TO HEAL AND GET BETTER FAST. Goal 2024-03-07 Patient Goal - I WANT TO HEAL AND GET BETTER FAST. Goal Provider Goal - A PLAN OF CARE WILL BE ESTABLISHED THAT MEETS PATIENT'S CUSTODIAL NEEDS AND INCLUDES PATIENT GOAL FOR HOME HEALTH. Goal Provider Goal - SYMPTOMS OF ANXIETY ARE IDENTIFIED AND INTERVENTIONS INITIATED TO ENABLE PATIENT TO UNDERSTAND AND MANAGE FEELINGS THROUGHOUT EPISODE. Goal Provider Goal - URINE SPECIMEN WILL BE OBTAINED PRN FOR SIGNS AND SYMPTOMS OF UTI AND RESULTS WILL BE REPORTED TO PHYSICIAN THROUGHOUT THE CERTIFICATION PERIOD. Goal Provider Goal [...] - PATIENT/CARGIVER WILL VERBALIZE UNDERSTANDING OF ANEMIA OF CKD INCLUDING SIGNS AND SYMPTOMS, MANAGEMENT OF COMPLICATIONS, [...] PAIN INTERFERING WITH ACTIVITY EVIDENCED BY PAIN AT A LEVEL THAT IS ACCEPTABLE TO THE PATIENT AND PAIN LEVEL WITHIN ESTABLISHED PARAMETERS BY END OF CERTIFICATION PERIOD. Goal Provider [...] End Date/Time Encounter Type Admission Type Attending [facility] Care Department Encounter ID Discharge Date Discharge Status Discharge Condition Discharge Reason Percent Goals Met 2024-07-06 00:00:00 2024-09-03 00:00:00 Outpatient RECERTIFIC ATION SHAYY KYLE [facility] [id number] 28.13
--- OUTSIDE RECORDS SUMMARY | 2024-09-07 13:33 | XMS_ITS | Encounter Summary ---
Author Organization [facility] Address [address] [place] [id number] Care Team Providers Care Trackmobile Operator Name Role Phone Preston Wang DO Primary Care Provider [phone] Encounter Details Date Type Department Care Team (Late st Contact Info) Description 08/17/2024 Lab Requisition [facility] - Main Lab [address] [facility] [place] [address] Carolina Phillips MD [address] [id number] Sepsis, unspecified organism (CMS/HCC V24, CMS/HCC V28); Essential (primary) hypertension; Urinary tract infection, site not specified Social History Tobacco Use Types Packs/Day Years Used Date Smoking Tobacco: Never Assessed Comments Unknown Sex and Gender Information Value Date Recorded Sex Assigned at Not on file Legal Sex Female 7:44 PM EST Gender Identity Not on file Sexual Orientation Not on file documented as of this encounter Plan of Treatment Not on file documented as of this encounter Procedures Procedure Name Priority Date/Time Associated Diagnosis Comments COMPLETE BLOOD COUNT Routine 08/20/2024 5:33 AM EDT Sepsis, unspecified organism (CMS/HCC V24, CMS/HCC V28) Essential (primary) hypertension Urinary tract infection, site not specified COMPREHENSIVE METABOLIC PANEL Routine 08/20/2024 5:33 AM EDT Sepsis, unspecified organism (CMS/HCC V24, CMS/HCC V28) Essential (primary) hypertension Urinary tract infection, site not specified documented in this encounter Results * (ABNORMAL) Comprehensive metabolic panel (08/20/2024 5:33 AM EDT) Sodium 140 133 - 145 mmol/L LAB CHEMISTRY METHOD 08/20/2024 3:08 PM [facility] Potassium 3.7 3.5 - 5.5 mmol/L LAB CHEMISTRY METHOD 08/20/2024 3:08 PM [facility] Chloride 106 96 - 110 mmol/L LAB CHEMISTRY METHOD 08/20/2024 3:08 PM [facility] CO2 25 21 - 32 mmol/L LAB CHEMISTRY METHOD 08/20/2024 3:08 PM [facility] Anion Gap 9 3 - 11 LAB CHEMISTRY METHOD 08/20/2024 3:08 PM [facility] Glucose 171(H) 70 - 100 mg/dL LAB CHEMISTRY METHOD 08/20/2024 3:08 PM [facility] BUN 22 5 - 25 mg/dL LAB CHEMISTRY METHOD 08/20/2024 3:08 PM [facility] Creatinine 1.39(H) 0.50 - 1.10 mg/dL LAB CHEMISTRY METHOD 08/20/2024 3:08 PM [facility] eGFR 39(L) >=60 mL/min/1. 73m2 LAB CHEMISTRY METHOD 08/20/2024 3:08 PM [facility] Comment:Calculation based on the Chronic Kidney Disease Epidemiology Collaboration (CKD-EPI) equation refit without adjustment for race. BUN/Creatinine Ratio 15.8 LAB CHEMISTRY METHOD 08/20/2024 3:08 PM [facility] Calcium 8.8 8.5 - 10.5 mg/dL LAB CHEMISTRY METHOD 08/20/2024 3:08 PM [facility] AST (SGOT) 52(H) 10 - 42 unit/L LAB CHEMISTRY METHOD 08/20/2024 3:08 PM [facility] ALT (SGPT) 60 10 - 60 unit/L LAB CHEMISTRY METHOD 08/20/2024 3:08 PM EDT [facility] Alkaline Phosphatase 83 42 - 121 unit/L LAB CHEMISTRY METHOD 08/20/2024 3:08 PM T [facility] Total Protein 7.0 6.0 - 8.0 g/dL LAB CHEMISTRY METHOD 08/20/2024 3:08 PM [facility] Albumin 2.8(L) 3.2 - 5.0 g/dL LAB CHEMISTRY METHOD 08/20/2024 3:08 PM [facility] Total Bilirubin 0.4 0.0 - 1.4 mg/dL LAB CHEMISTRY METHOD 08/20/2024 3:08 PM [facility] Blood Venous blood specimen / Unknown Venipuncture / Unknown 08/20/2024 5:33 AM EDT 08/20/2024 10:27 AM EDT us Carolina Phillips MD LAB BLOOD ORDERABLES Fin al Result [facility] [address] [place] [address], * (ABNORMAL) Complete blood count (08/20/2024 5:33 AM EDT) WBC 6.0 4.8 - 10.8 K/mcL LAB HEMETOLOGY METHOD 08/20/2024 11:45 AM EDT [facility] RBC 3.40(L) 3.80 - 4.80 M/mcL LAB HEMETOLOGY METHOD 08/20/2024 11:45 AM EDT [facility] Hemoglobin 9.1(L) 11.5 - 16.0 g/dL LAB HEMETOLOGY METHOD 08/20/2024 11:45 AM [facility] Hematocrit 30.8(L) 35.0 - 47.0 % LAB HEMETOLOGY METHOD 08/20/2024 11:45 AM EDT [facility] MCV 91.1 79.0 - 98.0 FL LAB HEMETOLOGY METHOD 08/20/2024 11:45 AM EDT [facility] MCH 26.9(L) 27.0 - 32.0 pcg LAB HEMETOLOGY METHOD 08/20/2024 11:45 AM EDT [facility] MCHC 29.5(L) 32.0 - 37.0 g/dL LAB HEMETOLOGY METHOD 08/20/2024 11:45 AM EDT [facility] RDW 16.8(H) 11.0 - 15.0 % LAB HEMETOLOGY METHOD 08/20/2024 11:45 AM EDT [facility] Platelets 200 130 - 400 K/mcL LAB HEMETOLOGY METHOD 08/20/2024 11:45 AM EDT [facility] MPV 10.1 7.0 - 11.0 FL LAB HEMETOLOGY METHOD 08/20/2024 11:45 AM EDT [facility] NRBC 0.0 <1.0 % LAB HEMETOLOGY METHOD 08/20/2024 11:45 AM EDT [facility] NRBC Absolute 0.00 <0.10 K/mcL LAB HEMETOLOGY METHOD 08/20/2024 11:45 AM T [facility] Blood Venous blood specimen / Unknown Venipuncture / Unknown 08/20/2024 5:33 AM EDT 08/20/2024 10:22 AM EDT us Carolina Phillips MD LAB BLOOD ORDERABLES Fin al Result [facility] [address] [place] [address], documented in this encounter Visit Diagnoses Diagnosis Sepsis, unspecified organism (CMS/HCC V24, CMS/[facility] V28) Essential (primary) hypertension Unspecified essential hypertension Urinary tract infection, site not specified documented in this encounter Care Teams Trackmobile Operator Relationship Specialty Start Date End Date Preston Wang DO [address] [place] [phone] PCP - General Internal Medicine 09/05/17 documented as of this encounter
--- OUTSIDE RECORDS SUMMARY | 2024-09-07 13:33 | XMS_ITS | Clinical Summary ---
Author Organization [facility] Address [address] [place] [phone] Phone Care Team Providers Care Mixing House Operator Name Role Phone Pcp, Unknown Primary Care Provider Unavailabl e Social History Tobacco Use Types Packs/Day Years Used Date Smoking Tobacco: Never Assessed Comments Unknown Sex and Gender Information Value Date Recorded Sex Assigned at Not on file Legal Sex Female 11:58 AM EDT Gender Identity Not on file Sexual Orientation Not on file Plan of Treatment Not on file Medical Devices Not on file Insurance MEDICARE PART A & B [employer] [employer] MEDEX SUPPLEMENT MEDICARE PART A & B Social[employer]5 MEDEX SUPPLEMENT MEDICARE PART A & B SocialF5 MEDEX SUPPLEMENT MEDICARE PART A & B [facility] MEDEX SUPPLEMENT MEDICARE PART A & B SocialF5 MEDEX SUPPLEMENT MEDICARE PART A & B SocialF5 MEDEX SUPPLEMENT Care Teams Mixing House Operator Relationship Specialty Start Date End Date Pcp, Unknown PCP - General 04/27/24 Additional Source Comments The information contained in this document represents components of the legal health record. It is not the complete legal health record.[facility]
--- NOTE | 2024-09-07 13:37 | MHC.PC.OV ---
Vital Signs 09/07/24 13:38 Height 5 ft 1 in Weight 195 lb BMI 36.8 BP 139/59 L Respiration 14 Pulse 60 Pulse Source Pulse Oximeter Temp 97.6 F Temp Source Temporal Artery Scan Pulse Oximetry (%) 97 Oxygen Delivery Method Room Air Intake Visit Reasons: Discharged from rehab Intake Note: Visit Reason: TCM Intake Note: Patient is here for hospital discharge follow up. Patient was discharged from [facility] on 08/04/24 and from [facility] x 1 week ago Resource Conservation Manager Required: No Lumber Tying Machine Operator: Not Required per policy Accompanied by: Spouse Allergies chlorpheniramine (From TUSSIONEX) Allergy (Severe, Verified 09/07/24 14:09) HALLUCINATIONS ciprofloxacin (From CIPRO) Allergy (Severe, Verified 09/07/24 14:09) ANAPHYLAXIS escitalopram (ESCITALOPRAM) Allergy (Severe, Verified 09/07/24 14:09) DISSOCIATIVE REACTION fluoxetine (FLUOXETINE) Allergy (Severe, Verified 09/07/24 14:09) DISSOCIATIVE REACTION hydrocodone (From TUSSIONEX) Allergy (Severe, Verified 09/07/24 14:09) HALLUCINATIONS ibuprofen (IBUPROFEN) Allergy (Severe, Verified 09/07/24 14:09) THROAT SWELLING Sulfa (Sulfonamide Antibiotics) (SULFA (SULFONAMIDE ANTIBIOTICS)) Allergy (Severe, Verified 09/07/24 14:09) DYSPNEA clarithromycin (From BIAXIN) Allergy (Intermediate, Verified 09/07/24 14:09) ABD.PAIN duloxetine (DULOXETINE) Allergy (Intermediate, Verified 09/07/24 14:09) FACIAL NUMBNESS erythromycin base (ERYTHROMYCIN BASE) Allergy (Intermediate, Verified 09/07/24 14:09) RASH Penicillins (PENICILLINS) Allergy (Intermediate, Verified 09/07/24 14:09) RASH tetracycline (TETRACYCLINE) Allergy (Intermediate, Verified 09/07/24 14:09) DIARRHEA codeine (CODEINE) Allergy (Unknown, Verified 09/07/24 14:09) TINNITIS guaifenesin Allergy (Unknown, Verified 09/07/24 14:09) Unknown levofloxacin (From Levaquin) Allergy (Unknown, Verified 09/07/24 14:09) Unknown pregabalin Allergy (Unknown, Verified 09/07/24 14:09) Unknown Medication List - Last Reconciled 09/07/24 by Margarita Powell PA-C acetaminophen 1,000 mg PO Q6H PRN atorvastatin 10 mg PO DAILY chair, wheel (Wheel chair) As directed; Manual 20 inch travel wheelchair with seat cushion and foot rests; Height 5ft 1.25 inches; Weight 191 lbs; ; QUANTITY OF 1; length of need 99 cholecalciferol (vitamin D3) 50 mcg (2 x 25 mcg (1,000 unit)) PO DAILY ferrous sulfate 325 mg PO DAILY furosemide 40 mg PO DAILY levothyroxine 112 mcg PO MOTUTHFRSA@0600 levothyroxine 224 mcg (2 x 112 mcg) PO SUWE@0600 lisinopril 10 mg PO DAILY Held on 08/04/24. Instructions: Monitor blood pressure for 1 week and discuss with PCP if needs to be restarted meropenem 1 g IVPUSH Q12H metformin ER 500 mg PO DAILY@1700 pyridoxine (vitamin B6) 100 mg (2 x 50 mg) PO DAILY tramadol 50 mg PO DAILY PRN Tobacco use date assessed: 09/07/24 Dental Screening Dental Screen Date: 05/30/24 HPI HPI Comments History of Present Illness Details Patient presents to the office for a TCM visit. Date of admission: 07/31/2024 Date of discharge:Patient was discharged from [facility] on 08/04/[address] [facility] This is a Follow-up from admission at [facility] HPI/hospital course/discharge summary: The patient is a 79-year-old female presenting for a follow-up visit after discharge from rehabilitation following hospitalization for urinary tract infection with sepsis. The patient was admitted to the hospital on 07/31/2024 with altered mental status and a high-grade fever, which was later diagnosed as severe sepsis secondary to a urinary tract infection with ESBL Klebsiella. She had undergone removal of a right ureteral stent on 07/31/2023, and the following day experienced weakness and a mechanical fall, leading to her hospitalization. In the emergency department, she was found to have a lactic acidosis and was treated with IV fluids and antibiotics, including ceftriaxone and meropenem, with a good response. Her past medical history is significant for hypertension, hyperlipidemia, chronic kidney disease stage 3, hyperthyroidism, and a history of sigmoid stricture status post Giordano procedure with recent colectomy reversal. She also has a history of right retroperitoneal abscess and right-sided ureteral stent placement. During her hospital stay, she experienced acute hypokalemia and acute toxic metabolic encephalopathy, both of which improved with treatment. Her hypertension improved back to baseline, and she was advised to hold nephrotoxic medications, including lisinopril, upon discharge. The patient was discharged to [facility] on 08/04/2024 and has since returned home approximately a week ago. She reports feeling tired but is engaging in self-directed exercises like walking to improve her activity level. Discharged to/Current Location: Home Lives with: Kai Diagnosis: UTI with sepsis Procedures performed: IVF, IV abx's and abd/pelvic CT New medications: Meropenem although pt finished Discontinued medications: lisinopril Change medications/dosing: none Pending labs: none Pending diagnostic test: none Any Follow-up Labs required? will repeat CBC, BMP, ua with urine culture Any Follow-up Diagnostic test required? none How are you feeling? Okay and better. Are you in any pain or discomfort? Only mild discomfort to wound site unless it is touched. Do you have any questions about your condition or discharge instructions? none st this time all questions answered Were you able to get your medications filled? yes Do you have any questions about your medications? none at this time Any referrals required? None Were you able to schedule your follow-up appointment? yes If home health was ordered, have they contact you? yes although pt had this appointment so they will come next week Any outpatient services, if so, are you scheduled? yes Are there any additional resources like transportation you might need during her recovery? not at this time - VNA? yes - KNIFE CUTTER? no - Meals on wheels? no Educational need/resources: none needed What support system do you have? Fiance Social History - Family Status: Lives with fianc?. - Exercise: Engages in self-directed exercises like walking. [facility] Medical History UTI (urinary tract infection) Urinary tract infection due to ESBL Klebsiella Anemia Mechanical complication of urethral stent Blood per rectum Dysuria Abscess Hospital discharge follow-up Generalized abdominal pain Encounter for wheelchair assessment Diverticular disease Major depressive disorder Heel spur Chronic low back pain Uterine cancer Hyperthyroidism Weakness of both lower extremities Hydroureteronephrosis Wound infection Open wound of back, complicated Cellulitis Frequency of urination Vaginal burning Vaginal itching PMB (postmenopausal bleeding) Cirrhosis of liver Does mobilize using walker PONV (postoperative nausea and vomiting) Left foot drop Fatty liver Fibromyalgia Neuropathy RBBB Cholelithiasis Staghorn calculus Renal calculus, bilateral Renal calyceal dilation determined by ultrasound Diabetes mellitus, type II Ganglion cyst Plantar fasciitis Anxiety OA (osteoarthritis) Obstructive airway disease Hypercholesterolemia Low back pain Sciatica Hypothyroidism HTN (hypertension) Primary osteoarthritis of right knee Retained ureteral stent Renal stones Staghorn calculus Perirectal abscess Surgical History History of colostomy reversal (02/20/24) History of colectomy (~10/06/23) Status post cystoscopy with ureteral stent placement History of lumbar discectomy History of lumpectomy of both breasts History of cystoscopy History of lithotripsy Hx of colonoscopy (~04/28/23) History of surgery Family History Father Alcohol dependence Mother CHF (congestive heart failure) Cancer of breast Mother No problems noted. Other Alcoholic cirrhosis Substance use disorder Social History Household Members: Significant Other Housing: House Are you a primary daycare worker to a significant other at home: No Do you presently have visiting nurse or other home services: No 75 years or older and lives alone: No Alcohol intake: current Alcohol intake frequency: does not drink Alcohol type: hard liquor Comment: wheelchair for long distances Patient Tobacco Use Status: Former Tobacco user Tobacco use type: Cigarette Years Smoked: 27 e-Cigarette/Vaping Use: Never Used Second Hand Smoke Exposure: No Advance Directives Date on File: 04/06/21 service: No Current occupational status: disabled Cognitive needs: Yes (wheelchair) Hearing needs: No Vision needs: Yes (Glasses) Questionnaire PHQ-9 Over the last 2 weeks, how often have you been bothered by any of the following problems? 1. Little interest or pleasure in doing things: not at all 2. Feeling down, depressed, or hopeless: not at all 3. Trouble falling or staying asleep, or sleeping too much: not at all 4. Feeling tired or having little energy: not at all 5. Poor appetite or overeating: not at all 6. Feeling bad about yourself - or that you are a failure or have let yourself or your family down: not at all 7. Trouble concentrating on things, such as reading the newspaper or watching television: not at all 8. Moving or speaking so slowly that other people could have noticed. Or the opposite - being so fidgety or restless that you have been moving around a lot more than usual: not at all 9. Thoughts that you would be better off or of hurting yourself in some way: not at all Total score: 0 Depression Screening Interpretation: Negative Depression Screening Done: Yes 34137 - PHQ-9 Billing: Yes Source: Developed by Drs. Preston Aponte, Jojo Holland, Subhash Richmond and colleagues, with an educational vernon from [employer]. Thrive Questionnaire Date Thrive assessed: 08/01/24 I am a: Patient What is your living situation today?: I have a steady place to live Within the past 12 months, did the food you bought not last and you didn't have the money to get more?: Never true Within the past 12 months, did you worry whether your food would run out before you got money to buy more?: Never true Do you have trouble paying for medicines?: No Do you have trouble getting transportation to medical appointments?: No Do you have trouble paying your heating and electricity bill?: No Do you have trouble taking care of your child, family member or friend?: No Do you have trouble with day-to-day activities such as bathing, preparing meals, shopping, managing finances, etc.?: No Are you currently unemployed and looking for a job?: No Are you interested in more education?: No Please select the resources that you would like help with: None THRIVE Score: 0 AUDIT C Alcohol Use Questionnaire (AUDIT-C) 1. How often do you have a drink containing alcohol?: Never 3. How often do you have six or more drinks on one occasion?: Never Total Score: 0 Score Reviewed/Action Taken: No RAMONE-7 AMB Questionnaire RAMONE-7 Date RAMONE - 7 assessed: 06/12/24 Feeling nervous, anxious, or on edge: 0 = Not at all Not being able to stop or control worryin = Not at all Worrying too much about different things: 0 = Not at all Trouble relaxin = Not at all Being so restless that it is hard to sit still: 0 = Not at all Becoming easily annoyed or irritable: 0 = Not at all Feeling afraid as if something awful might happen: 0 = Not at all Total RAMONE-7 score (0-4 normal; 5-9 mild; 10-14 moderate; 15-21 severe): 0 Source: Developed by Drs. Preston Aponte, Jojo Holland, Subhash Richmond and colleagues, with an educational vernon from [employer]. RAMONE-7 Assessment Billing RAMONE-7 Assessment Tool: RAMONE-7 Assessment 32384 Review of Systems Const Details: - General: Reports feeling tired. - Genitourinary: Reports dysuria and fever; denies abdominal pain. - Neurological: Reports altered mental status prior to hospitalization. All systems reviewed & are unremarkable except as noted in HPI and below Physical exam (Primary Care) Vital Signs: Last Vital Signs Temp 97.6 F 09/07/24 13:38 Pulse 60 09/07/24 13:38 Resp 14 09/07/24 13:38 BP 139/59 L 09/07/24 13:38 Pulse Ox 97 09/07/24 13:38 Oxygen Delivery Method Room Air 09/07/24 13:38 Vitals signs have been reviewed. Care Plan Goal for BP management: <140/90 at Goal BMI result Body Mass Index 36.8 BMI Assessment/Plan discussion: High BMI High, discussed plan: lifestyle, weight reduction, dietary, physical activity and alcohol moderation Tobacco/Smoking Status: Tobacco use Status Tobacco use date assessed 09/07/24 09/07/24 13:51 Patient Tobacco Use Status Former Tobacco user 09/07/24 13:51 Tobacco use type Cigarette 09/07/24 13:51 e-Cigarette/Vaping Use Never Used 09/07/24 13:51 PHQ-9: PHQ-9 Score PHQ-9: Total score 0 09/07/24 14:11 Depression Screening Interpretation: Negative Thrive Assessment: Date of Thrive Assessment Date Thrive assessed 08/01/24 09/07/24 13:51 Const Other: Appearance: Alert. Oriented X3. No acute distress. Head: Normal external exam. Normocephalic. Atraumatic. Eyes: Pupils are equal, round, and reactive to light. Extraocular movements intact. Conjunctiva and sclera normal. Eyelids normal. Throat: Pharynx normal. Uvula midline. Moist mucous membranes. Neck: Normal inspection. Neck supple. Full range of motion. Cardiovascular: Pulse was 50-52, then increased to 60. Normal heart rate and rhythm. Heart sound normal. No murmurs noted. Pulses normal throughout. Respiratory: No respiratory distress. Painless inspiration. Breath sounds normal. No wheezes/rales/rhonchi noted. Chest nontender. No accessory muscle usage noted or decreased air movement noted. Abdomen: Soft and nontender. Bowel sounds normal in all 4 quadrants. No distention noted. No organomegaly noted. Wound to the right posterior flank well healing no signs of infection no fluctuance no purulent drainage no signs of active infection. Back: No costovertebral angle tenderness. Full range of motion noted. Skin: Skin warm and dry. Normal skin color. Normal skin turgor. No rashes/lesions/lacerations noted. Extremities: No lower extremity edema. Extremities exhibit normal range of motion. Results Reviewed Results Reviewed: - Labs: Lactic acidosis with lactic level greater than 4. - Labs: Sodium 132 mmol/L, BUN 17 mg/dL, creatinine 1.36 mg/dL, GFR 38 mL/min/1.73m?, calcium 8.0 mg/dL. - Imaging: CT scan of abdomen showed removal of right ureteral stent. Coding Level of Care Code TCM High MDM <= 7 Days Complex EM visit Add On G2211 Diagnoses Hospital discharge follow-up Z09 Sepsis secondary to UTI A41.9; N39.0 HTN (hypertension) I10 Additional Codes RAMONE-7 Assessment Billing - RAMONE-7 Assessment Tool: RAMNOE-7 Assessment 90132 ([id number]) PHQ-9 - 84752 - PHQ-9 Billing: Yes ([id number]) Time Spent (min) 50 Assessment & Plan Assessment & Plan (1) Hospital discharge follow-up: Code(s): Z09 - Encounter for follow-up examination after completed treatment for conditions other than malignant neoplasm Category: Medical Plan: The patient was treated with IV antibiotics, including ceftriaxone and meropenem, for severe sepsis secondary to a urinary tract infection with ESBL Klebsiella. She was advised to complete a 14-day course 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 as per infectious disease recommendations and to follow up with urology after completing the antibiotic course. (2) Sepsis secondary to UTI: Code(s): A41.9 - Sepsis, unspecified organism; N39.0 - Urinary tract infection, site not specified Category: Medical Plan: The patient was treated with IV antibiotics, including ceftriaxone and meropenem, for severe sepsis secondary to a urinary tract infection with ESBL Klebsiella. She was advised to complete a 14-day course 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 as per infectious disease recommendations and to follow up with urology after completing the antibiotic course. (3) HTN (hypertension): Code(s): I10 - Essential (primary) hypertension Category: Medical Plan: The patient's hypertension improved back to baseline during hospitalization, and she was advised to hold lisinopril upon discharge. Blood pressure monitoring was recommended, and the decision was made not to restart lisinopril as her blood pressure remained stable. Plan Plan Patient was informed and verbally consented to the use of an ambient scribe for clinic note documentation during this visit. 1. Urinary Tract Infection With Sepsis The patient was treated with IV antibiotics, including ceftriaxone and meropenem, for severe sepsis secondary to a urinary tract infection with ESBL Klebsiella. She was advised to complete a 14-day course 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 as per infectious disease recommendations and to follow up with urology after completing the antibiotic course. 2. Hypertension The patient's hypertension improved back to baseline during hospitalization, and she was advised to hold lisinopril upon discharge. Blood pressure monitoring was recommended, and the decision was made not to restart lisinopril as her blood pressure remained stable. 3. Chronic Kidney Disease Stage 3 The patient's chronic kidney disease was monitored during hospitalization, with a GFR of 38 mL/min/1.73m? noted at discharge. Nephrotoxic medications were held, and IV fluids were administered to support renal function. 4. Acute hypokalemia The patient experienced acute hypokalemia during her hospital stay, which was treated and resolved prior to discharge. 5. Acute Toxic Metabolic Encephalopathy The patient developed acute toxic metabolic encephalopathy secondary to sepsis, which improved with treatment during her hospital stay. During the visit, I discussed with the patient the importance of completing the full course 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 for her urinary tract infection with sepsis and the need for follow-up with urology after finishing the antibiotics. We reviewed her blood pressure management, deciding to hold lisinopril as her blood pressure remained stable, and emphasized the importance of regular monitoring. I also explained the need for follow-up blood work to monitor her kidney function and electrolytes, given her history of chronic kidney disease and recent hypokalemia. Orders: Orders Comprehensive Met. Panel Today Z00.00 - Encounter for general adult medical examination without abnormal findings Complete Blood Count Auto Diff Today Z00.00 - Encounter for general adult medical examination without abnormal findings UA CC w/rflx Micro + Cult Today Z09 - Encounter for follow-up examination after completed treatment for conditions other than malignant neoplasm Medications: Refilled pyridoxine (vitamin B6) 100 mg (2 x 50 mg) PO DAILY 180 tabs 1RF Patient Instructions: - Complete the full course 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 as prescribed. - Follow up with urology after finishing antibiotics. - Monitor blood pressure regularly and report any significant changes. - Engage in regular walking exercises to improve activity level. - Schedule follow-up blood work to monitor kidney function and electrolytes.
[2024-09-07 13:38] VITALS: BP 139/59; PULSE 60; RESP 14; TEMP 36.4; O2SAT 97; BMI 36.8
== END 2024-09-07 14:22 | disposition home or self-care (01) ==
LOC: HO.HMCSH 13:30
PROVIDERS: PCP Internal Medicine; Visit Provider Physician Assistant Medical
DX: A41.9 Sepsis, unspecified organism (principal); N39.0 Urinary tract infection, site not specified; I10 Essential (primary) hypertension; Z09 Encounter for follow-up examination after completed treatment for conditions other than malignant neoplasm

== ENCOUNTER → 2024-09-07 13:30 | Outpatient (BNVA) | payer MEDICARE, SELFPAY | PROVIDERS: PCP Internal Medicine; Visit Provider Physician Assistant Medical | DX: Z09 Encounter for follow-up examination after completed treatment for conditions other than malignant neoplasm (principal); A41.9 Sepsis, unspecified organism; N39.0 Urinary tract infection, site not specified; I10 Essential (primary) hypertension | CPT/HCPCS: 96127; 99212 ==

== ENCOUNTER 2024-09-10 12:39 | Outpatient (REF) | payer MEDICARE, SELFPAY ==
--- OUTSIDE RECORDS SUMMARY | 2024-09-10 13:03 | XMS_ITS | Encounter Summary ---
Author Organization [facility] Address [id number] [place] [id number] Care Team Providers Care Museum Technician Name Role Phone Preston Wang DO Primary Care Provider [phone] Encounter Details Date Type Department Care Team (Late st Contact Info) Description 08/17/2024 Lab Requisition [facility] - Main Lab [address] [facility] [place] [address] Carolina Phillips MD [address] [id number] Sepsis, unspecified organism (CMS/HCC V24, CMS/HCC V28); [...] mmol/L LAB CHEMISTRY METHOD 08/20/2024 3:08 PM [facility] Potassium 3.7 3.5 - 5.5 mmol/L LAB CHEMISTRY METHOD 08/20/2024 3:08 PM [facility] Chloride 106 96 - 110 mmol/L LAB CHEMISTRY METHOD 08/20/2024 3:08 PM [facility] CO2 25 21 - 32 mmol/L LAB CHEMISTRY METHOD 08/20/2024 3:08 PM [facility] Anion Gap 9 3 - 11 LAB CHEMISTRY METHOD 08/20/2024 3:08 PM [facility] Glucose 171(H) 70 - 100 mg/dL LAB CHEMISTRY METHOD 08/20/2024 3:08 PM [facility] BUN 22 5 - 25 mg/dL LAB CHEMISTRY METHOD 08/20/2024 3:08 PM [facility] Creatinine 1.39(H) 0.50 - 1.10 mg/dL LAB CHEMISTRY METHOD 08/20/2024 3:08 PM [facility] eGFR 39(L) >=60 mL/min/1. 73m2 LAB CHEMISTRY METHOD 08/20/2024 3:08 PM [facility] Comment:Calculation based on the Chronic Kidney Disease Epidemiology Collaboration (CKD-EPI) equation refit without adjustment for race. BUN/Creatinine Ratio 15.8 LAB CHEMISTRY METHOD 08/20/2024 3:08 PM [facility] Calcium 8.8 8.5 - 10.5 mg/dL LAB CHEMISTRY METHOD 08/20/2024 3:08 PM [facility] AST (SGOT) 52(H) 10 - 42 unit/L LAB CHEMISTRY METHOD 08/20/2024 3:08 PM [facility] ALT (SGPT) 60 10 - 60 unit/L LAB CHEMISTRY METHOD 08/20/2024 3:08 PM EDT [facility] Alkaline Phosphatase 83 42 - 121 unit/L LAB CHEMISTRY METHOD 08/20/2024 3:08 PM T [facility] Total Protein 7.0 6.0 - 8.0 g/dL LAB CHEMISTRY METHOD 08/20/2024 3:08 PM [facility] Albumin 2.8(L) 3.2 - 5.0 g/dL LAB CHEMISTRY METHOD 08/20/2024 3:08 PM [facility] Total Bilirubin 0.4 0.0 - 1.4 mg/dL LAB CHEMISTRY METHOD 08/20/2024 3:08 PM [facility] Blood Venous blood specimen / Unknown Venipuncture / Unknown 08/20/2024 5:33 AM EDT 08/20/2024 10:27 AM EDT us Carolina Phillips MD LAB BLOOD ORDERABLES Fin al Result [facility] [address] [place] [address], * (ABNORMAL) Complete blood count (08/20/2024 5:33 AM EDT) WBC 6.0 4.8 - 10.8 K/mcL LAB HEMETOLOGY METHOD 08/20/2024 11:45 AM EDT [facility] RBC 3.40(L) 3.80 - 4.80 M/mcL LAB HEMETOLOGY METHOD 08/20/2024 11:45 AM EDT [facility] Hemoglobin 9.1(L) 11.5 - 16.0 g/dL LAB HEMETOLOGY METHOD 08/20/2024 11:45 AM [facility] Hematocrit 30.8(L) 35.0 - 47.0 % LAB HEMETOLOGY METHOD 08/20/2024 11:45 AM EDT [facility] MCV 91.1 79.0 - 98.0 FL LAB HEMETOLOGY METHOD 08/20/2024 11:45 AM EDT [facility] MCH 26.9(L) 27.0 - 32.0 pcg LAB HEMETOLOGY METHOD 08/20/2024 11:45 AM EDT [facility] MCHC 29.5(L) 32.0 - 37.0 g/dL LAB HEMETOLOGY METHOD 08/20/2024 11:45 AM EDT [facility] RDW 16.8(H) 11.0 - 15.0 % LAB HEMETOLOGY METHOD 08/20/2024 11:45 AM EDT [facility] Platelets 200 130 - 400 K/mcL LAB HEMETOLOGY METHOD 08/20/2024 11:45 AM EDT [facility] MPV 10.1 7.0 - 11.0 FL LAB HEMETOLOGY METHOD 08/20/2024 11:45 AM EDT [facility] NRBC 0.0 <1.0 % LAB HEMETOLOGY METHOD 08/20/2024 11:45 AM EDT [facility] NRBC Absolute 0.00 <0.10 K/mcL LAB HEMETOLOGY METHOD 08/20/2024 11:45 AM T [facility] Blood Venous blood specimen / Unknown Venipuncture / Unknown 08/20/2024 5:33 AM EDT 08/20/2024 10:22 AM EDT us Carolina Phillips MD LAB BLOOD ORDERABLES Fin al Result [facility] [address] [place] [address], documented in this encounter Visit Diagnoses Diagnosis Sepsis, unspecified organism (CMS/HCC V24, CMS/[facility] V28) Essential (primary) hypertension Unspecified essential hypertension Urinary tract infection, site not specified documented in this encounter Care Teams Museum Technician Relationship Specialty Start Date End Date Preston Wang DO [address] [place] [phone] PCP - General Internal Medicine 09/05/17 documented as of this encounter
--- OUTSIDE RECORDS SUMMARY | 2024-09-10 13:03 | XMS_ITS | Clinical Summary ---
Author Organization [facility] Address [address] [place] [phone] Phone Care Team Providers Care Branch Customer Service Representative Name Role Phone Pcp, Unknown Primary Care [...] file Insurance MEDICARE PART A & B [employer] [place] SUPPLEMENT MEDICARE PART A & B [employer] MEDEX SUPPLEMENT MEDICARE PART A & B [employer]. MEDEX SUPPLEMENT MEDICARE PART A & B [facility] MEDEX SUPPLEMENT MEDICARE PART A & B [employer] MEDEX SUPPLEMENT MEDICARE PART A & B [employer] MEDEX SUPPLEMENT Care Teams Branch Customer Service Representative Relationship Specialty Start Date End Date Pcp, Unknown PCP - General 04/27/24 Additional Source Comments The information contained in this document represents components of the legal health record. It is not the complete legal health record.[facility]
[2024-09-10 16:17] LABS: MANUAL DIFF FLAG NO
[2024-09-10 16:24] LABS: Hematocrit 32.3 % (37.0-47.0); Hemoglobin 10.2 g/dl (12.0-16.0); Imm Gran Abs Auto 0.15 X10*3/uL (0.00-0.03); Imm Gran Pct Auto 1.5 % (0.0-0.4); Lymphocytes Absolute Auto 2.2 X10*3/uL (1.2-4.9); Mean Corpuscular HGB Conc 31.6 g/dl (31.0-35.0); Mean Corpuscular Hemoglobin 27.3 pg (27.0-33.0); Mean Corpuscular Volume 86.6 fL (80.0-98.0); NRBC Abs Auto 0.000 X10*3/uL (0.0-0.012); NRBC Pct Auto 0.0 /100WBC (0.0-0.2); Platelet Count 292 X10*3/uL (160-400); Red Blood Count 3.73 X10*6/uL (4.20-5.50); White Blood Count 9.9 X10*3/uL (4.8-10.8)
[2024-09-10 16:25] LABS: Appearance Urine Cloudy; Glucose Urine UA Negative (Negative); PH 5.5 (5.0-9.0); Specific Gravity - Urine <= 1.005 (1.005-1.025); UMIC TRIGGER UACC YES
[2024-09-10 16:34] LABS: Alanine Aminotransferase 20 U/L (0-31); Albumin Level 3.6 g/dL (3.5-5.0); Alkaline Phosphatase 62 U/L (39-117); Anion Gap 15 (12-20); Aspartate Amino Transferase 35 U/L (5-31); Blood Urea Nitrogen 27 mg/dL (9-16); Calcium 9.2 mg/dL (8.4-10.2); Carbon Dioxide 24 mmol/L (22-29); Chloride 107 mmol/L (96-108); Estimated Glomerular Filt Rate 33; Potassium 3.8 mmol/L (3.3-5.1); Sodium 142 mmol/L (135-145); Total Protein 8.0 g/dL (6.5-8.0)
[2024-09-10 16:39] LABS: UACC Culture Trigger YES
== END 2024-09-10 12:40 | disposition home or self-care (01) ==
LOC: HO.HMGCLDS 12:39
PROVIDERS: PCP Physician Assistant Medical; Visit Provider Physician Assistant Medical
DX: Z00.00 Encounter for general adult medical examination without abnormal findings (principal); Z09 Encounter for follow-up examination after completed treatment for conditions other than malignant neoplasm; Z11.2 Encounter for screening for other bacterial diseases; Z13.0 Encounter for screening for diseases of the blood and blood-forming organs and certain disorders involving the immune mechanism
CPT/HCPCS: 36415; 80053; 81001; 85025; 87086; 87088; 87186

== ENCOUNTER 2024-09-12 09:31 | Outpatient (AMB) | payer MEDICARE, SELFPAY ==
--- NOTE | 2024-09-12 09:37 | A.OFFVIS_ITS ---
Intake Visit Reasons: Post-op Cysto retrograde, stent removal f/u Intake Note: Patient is present today for post-op cysto retrograde,stent removal follow up Urology Medication:VITAMIN B6 Antibiotic Allergy:CIRPOFLOXACIN,SULFA,CLARITHROMYCIN,ERTHROMYCIN,PENICILLINS,LEVOFLOXACIN Blood Thinner:NONE Audio Visual Collections Coordinator Required: No Allergies chlorpheniramine (From TUSSIONEX) Allergy (Severe, Verified 09/12/24 09:37) HALLUCINATIONS ciprofloxacin (From CIPRO) Allergy (Severe, Verified 09/12/24 09:37) ANAPHYLAXIS escitalopram (ESCITALOPRAM) Allergy (Severe, Verified 09/12/24 09:37) DISSOCIATIVE REACTION fluoxetine (FLUOXETINE) Allergy (Severe, Verified 09/12/24 09:37) DISSOCIATIVE REACTION hydrocodone (From TUSSIONEX) Allergy (Severe, Verified 09/12/24 09:37) HALLUCINATIONS ibuprofen (IBUPROFEN) Allergy (Severe, Verified 09/12/24 09:37) THROAT SWELLING Sulfa (Sulfonamide Antibiotics) (SULFA (SULFONAMIDE ANTIBIOTICS)) Allergy (Severe, Verified 09/12/24 09:37) DYSPNEA clarithromycin (From BIAXIN) Allergy (Intermediate, Verified 09/12/24 09:37) ABD.PAIN duloxetine (DULOXETINE) Allergy (Intermediate, Verified 09/12/24 09:37) FACIAL NUMBNESS erythromycin base (ERYTHROMYCIN BASE) Allergy (Intermediate, Verified 09/12/24 09:37) RASH Penicillins (PENICILLINS) Allergy (Intermediate, Verified 09/12/24 09:37) RASH tetracycline (TETRACYCLINE) Allergy (Intermediate, Verified 09/12/24 09:37) DIARRHEA codeine (CODEINE) Allergy (Unknown, Verified 09/12/24 09:37) TINNITIS guaifenesin Allergy (Unknown, Verified 09/12/24 09:37) Unknown levofloxacin (From Levaquin) Allergy (Unknown, Verified 09/12/24 09:37) Unknown pregabalin Allergy (Unknown, Verified 09/12/24 09:37) Unknown HPI Comments Details: Xi is a pleasant female. She is a patient of Dr. Wang. She is seen for the following urologic conditions - nephrolithiasis - recurrent UTI Follow-up after ureteroscopy and removal of stent Has recurrent UTI with formation of stones Plan on vitamin-C with trimethoprim Six-month follow-up renal imaging Nephrolithiasis Multiple prior in admission for infection and staghorn - treatment had concurrent abscess 6 months after initial ureteroscopy Intervention - 03/31 right-sided ureteroscopy laser lithotripsy and stent placement - 06/28 completion right ureteroscopy with left ureteroscopy - 08/31 cystoscopy with stent removal and ureteroscopy Stone composition - 03/31 Carbonate Apatite (Dahllite) 100% - 06/28 calcium oxalate Imaging - 03/31 CT scan 4 cm right staghorn calculus, 6 mm left Therapeutic plan - suppression antibiotics for recurrent UTI [facility] Medical History UTI (urinary tract infection) Urinary tract infection due to ESBL Klebsiella Anemia Mechanical complication of urethral stent Blood per rectum Dysuria Abscess Hospital discharge follow-up Generalized abdominal pain Encounter for wheelchair assessment Diverticular disease Major depressive disorder Heel spur Chronic low back pain Uterine cancer Hyperthyroidism Weakness of both lower extremities Hydroureteronephrosis Wound infection Open wound of back, complicated Cellulitis Frequency of urination Vaginal burning Vaginal itching PMB (postmenopausal bleeding) Cirrhosis of liver Does mobilize using walker PONV (postoperative nausea and vomiting) Left foot drop Fatty liver Fibromyalgia Neuropathy RBBB Cholelithiasis Staghorn calculus Renal calculus, bilateral Renal calyceal dilation determined by ultrasound Diabetes mellitus, type II Ganglion cyst Plantar fasciitis Anxiety OA (osteoarthritis) Obstructive airway disease Hypercholesterolemia Low back pain Sciatica Hypothyroidism HTN (hypertension) Primary osteoarthritis of right knee Retained ureteral stent Renal stones Staghorn calculus Perirectal abscess Surgical History History of colostomy reversal (02/20/24) History of colectomy (~10/06/23) Status post cystoscopy with ureteral stent placement History of lumbar discectomy History of lumpectomy of both breasts History of cystoscopy History of lithotripsy Hx of colonoscopy (~04/28/23) History of surgery Family History Father Alcohol dependence Mother CHF (congestive heart failure) Cancer of breast Mother No problems noted. Other Alcoholic cirrhosis Substance use disorder Social History Household Members: Significant Other Housing: House Are you a primary out of school hours care worker to a significant other at home: No Do you presently have visiting nurse or other home services: No 75 years or older and lives alone: No Alcohol intake: current Alcohol intake frequency: does not drink Alcohol type: hard liquor Comment: wheelchair for long distances Patient Tobacco Use Status: Former Tobacco user Tobacco use type: Cigarette Years Smoked: 27 e-Cigarette/Vaping Use: Never Used Second Hand Smoke Exposure: No Advance Directives Date on File: 04/06/21 service: No Current occupational status: disabled Cognitive needs: Yes (wheelchair) Hearing needs: No Vision needs: Yes (Glasses) Assessment & Plan Assessment & Plan (1) UTI (urinary tract infection): Comment: Right hydronephrosis, 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 and right stent in place Code(s): N39.0 - Urinary tract infection, site not specified Category: Medical (2) Staghorn calculus: Comment: 10/28 Proteus mirabilis Levaquin resistant Code(s): N20.0 - Calculus of kidney Category: Medical Plan Suppression Six-month follow-up imaging Orders: Orders US renal BI 6 Months B96.89 - Other specified bacterial agents as the cause of diseases classified elsewhere, N39.0 - Urinary tract infection, site not specified Medications: New ascorbic acid (vitamin C) 1,000 mg PO DAILY 90 tabs 1RF 90 days B96.89 - Other specified bacterial agents as the cause of diseases classified elsewhere, N39.0 - Urinary tract infection, site not specified trimethoprim 100 mg PO DAILY 90 tabs 1RF 90 days B96.89 - Other specified bacterial agents as the cause of diseases classified elsewhere, N39.0 - Urinary tract infection, site not specified, R33.9 - Retention of urine, unspecified Patient Instructions: This note is constructed using voice recognition software. While every effort has been made to ensure accuracy batch unloader errors may have been included. Imaging studies, laboratory and physical exam results were discussed and reviewed in detail. No major barriers to patient understanding were identified. An opportunity to ask questions regarding the treatment plan was provided. All questions were answered. The patient expressed understanding and agreement with the above treatment plan. The patient is aware they should contact our office by phone for worsening of their current condition or the appearance of new urologic symptoms. Compliance is encouraged with any medications and followup testing that is ordered. It is a privilege to participate in the urologic care of your patient. If you have any questions or concerns regarding treatment for the above conditions, or other urologic issues, please do not hesitate to contact me. The office telephone contact is [phone]. Sincerely, Dr Jose Reis MD, [facility] - Urology Compassionate Specialist Care for the Genitourinary System Coding Level of Care Code Est Pt Level 4 (74238) Diagnoses UTI (urinary tract infection) N39.0 Staghorn calculus N20.0
--- OUTSIDE RECORDS SUMMARY | 2024-09-12 09:55 | XMS_ITS | Encounter Summary ---
Author Organization [facility] Address [id number] [place] [id number] Care Team Providers Care Market Research Interviewer Name Role Phone Preston Wang DO Primary Care Provider [phone] Encounter Details Date Type Department Care Team (Late st Contact Info) Description 08/17/2024 Lab Requisition [facility] [address] [facility] [place] [address] Carolina Phillips MD [address] [phone] Sepsis, unspecified organism (CMS/HCC V24, CMS/HCC V28); [...] mmol/L LAB CHEMISTRY METHOD 08/20/2024 3:08 PM [facility] Potassium 3.7 3.5 - 5.5 mmol/L LAB CHEMISTRY METHOD 08/20/2024 3:08 PM [facility] Chloride 106 96 - 110 mmol/L LAB CHEMISTRY METHOD 08/20/2024 3:08 PM [facility] CO2 25 21 - 32 mmol/L LAB CHEMISTRY METHOD 08/20/2024 3:08 PM [facility] Anion Gap 9 3 - 11 LAB CHEMISTRY METHOD 08/20/2024 3:08 PM [facility] Glucose 171(H) 70 - 100 mg/dL LAB CHEMISTRY METHOD 08/20/2024 3:08 PM [facility] BUN 22 5 - 25 mg/dL LAB CHEMISTRY METHOD 08/20/2024 3:08 PM [facility] Creatinine 1.39(H) 0.50 - 1.10 mg/dL LAB CHEMISTRY METHOD 08/20/2024 3:08 PM [facility] eGFR 39(L) >=60 mL/min/1. 73m2 LAB CHEMISTRY METHOD 08/20/2024 3:08 PM [facility] Comment:Calculation based on the Chronic Kidney Disease Epidemiology Collaboration (CKD-EPI) equation refit without adjustment for race. BUN/Creatinine Ratio 15.8 LAB CHEMISTRY METHOD 08/20/2024 3:08 PM [facility] Calcium 8.8 8.5 - 10.5 mg/dL LAB CHEMISTRY METHOD 08/20/2024 3:08 PM [facility] AST (SGOT) 52(H) 10 - 42 unit/L LAB CHEMISTRY METHOD 08/20/2024 3:08 PM [facility] ALT (SGPT) 60 10 - 60 unit/L LAB CHEMISTRY METHOD 08/20/2024 3:08 PM EDT [facility] Alkaline Phosphatase 83 42 - 121 unit/L LAB CHEMISTRY METHOD 08/20/2024 3:08 PM T [facility] Total Protein 7.0 6.0 - 8.0 g/dL LAB CHEMISTRY METHOD 08/20/2024 3:08 PM [facility] Albumin 2.8(L) 3.2 - 5.0 g/dL LAB CHEMISTRY METHOD 08/20/2024 3:08 PM [facility] Total Bilirubin 0.4 0.0 - 1.4 mg/dL LAB CHEMISTRY METHOD 08/20/2024 3:08 PM [facility] Blood Venous blood specimen / Unknown Venipuncture / Unknown 08/20/2024 5:33 AM EDT 08/20/2024 10:27 AM EDT us Carolina Phillips MD LAB BLOOD ORDERABLES Fin al Result [facility] [address] [place] [address], * (ABNORMAL) Complete blood count (08/20/2024 5:33 AM EDT) WBC 6.0 4.8 - 10.8 K/mcL LAB HEMETOLOGY METHOD 08/20/2024 11:45 AM EDT [facility] RBC 3.40(L) 3.80 - 4.80 M/mcL LAB HEMETOLOGY METHOD 08/20/2024 11:45 AM EDT [facility] Hemoglobin 9.1(L) 11.5 - 16.0 g/dL LAB HEMETOLOGY METHOD 08/20/2024 11:45 AM [facility] Hematocrit 30.8(L) 35.0 - 47.0 % LAB HEMETOLOGY METHOD 08/20/2024 11:45 AM EDT [facility] MCV 91.1 79.0 - 98.0 FL LAB HEMETOLOGY METHOD 08/20/2024 11:45 AM EDT [facility] MCH 26.9(L) 27.0 - 32.0 pcg LAB HEMETOLOGY METHOD 08/20/2024 11:45 AM EDT [facility] MCHC 29.5(L) 32.0 - 37.0 g/dL LAB HEMETOLOGY METHOD 08/20/2024 11:45 AM EDT [facility] RDW 16.8(H) 11.0 - 15.0 % LAB HEMETOLOGY METHOD 08/20/2024 11:45 AM EDT [facility] Platelets 200 130 - 400 K/mcL LAB HEMETOLOGY METHOD 08/20/2024 11:45 AM EDT [facility] MPV 10.1 7.0 - 11.0 FL LAB HEMETOLOGY METHOD 08/20/2024 11:45 AM EDT [facility] NRBC 0.0 <1.0 % LAB HEMETOLOGY METHOD 08/20/2024 11:45 AM EDT [facility] NRBC Absolute 0.00 <0.10 K/mcL LAB HEMETOLOGY METHOD 08/20/2024 11:45 AM T [facility] Blood Venous blood specimen / Unknown Venipuncture / Unknown 08/20/2024 5:33 AM EDT 08/20/2024 10:22 AM EDT us Carolina Phillips MD LAB BLOOD ORDERABLES Fin al Result [facility] [address] [place] [address], documented in this encounter Visit Diagnoses Diagnosis Sepsis, unspecified organism (CMS/HCC V24, CMS/[facility] V28) Essential (primary) hypertension Unspecified essential hypertension Urinary tract infection, site not specified documented in this encounter Care Teams Market Research Interviewer Relationship Specialty Start Date End Date Preston Wang DO [address] [place] [phone] PCP - General Internal Medicine 09/05/17 documented as of this encounter
--- OUTSIDE RECORDS SUMMARY | 2024-09-12 09:55 | XMS_ITS | Clinical Summary ---
Author Organization [facility] Address [address] [place] [phone] Phone Care Team Providers Care Correctional Officer Captain Name Role Phone Pcp, Unknown Primary Care [...] file Insurance MEDICARE PART A & B [place] MED[employer] SUPPLEMENT MEDICARE PART A & B [employer] MEDEX SUPPLEMENT MEDICARE PART A & B [employer] SUPPLEMENT MEDICARE PART A & B [facility] MEDEX SUPPLEMENT MEDICARE PART A & B [employer] SUPPLEMENT MEDICARE PART A & B [employer] MEDEX SUPPLEMENT Care Teams Correctional Officer Captain Relationship Specialty Start Date End Date Pcp, Unknown PCP - General 04/27/24 Additional Source Comments The information contained in this document represents components of the legal health record. It is not the complete legal health record.[facility]
== END 2024-09-12 10:00 | disposition home or self-care (01) ==
LOC: HO.HUSH 09:32
PROVIDERS: PCP Internal Medicine; Visit Provider Urology
DX: N39.0 Urinary tract infection, site not specified (principal); N20.0 Calculus of kidney
CPT/HCPCS: 99214

== ENCOUNTER → 2024-09-12 09:31 | Outpatient (BNVA) | payer MEDICARE, SELFPAY | PROVIDERS: PCP Internal Medicine; Visit Provider Urology | DX: N39.0 Urinary tract infection, site not specified (principal); N20.0 Calculus of kidney | CPT/HCPCS: 81003; 99212 ==

== ENCOUNTER 2024-09-24 11:15 | Outpatient (RCR) | payer MEDICARE, SELFPAY | END 2024-09-24 16:48 | disposition home or self-care (01) | LOC: HO.WCC 11:15 | PROVIDERS: PCP Internal Medicine; Visit Provider Colon & Rectal Surgery | DX: E11.9 Type 2 diabetes mellitus without complications (principal); I10 Essential (primary) hypertension; Z09 Encounter for follow-up examination after completed treatment for conditions other than malignant neoplasm; Z87.2 Personal history of diseases of the skin and subcutaneous tissue | CPT/HCPCS: 11042; 17250; 99212; 99213; 99215 ==

== ENCOUNTER 2024-10-03 10:50 | Inpatient (IN) | payer MEDICARE, SELFPAY ==
--- NOTE | ~2024-10-03 | CT_ITS ---
CLINICAL HISTORY: abd pain CT abdomen and pelvis with contrast Comparison: CT - CT ABDOMEN PELVIS W IV CON - 10/03/24 16:[address]/REG/SR - CT ABDOMEN PELVIS WO IV CON - 08/01/24 18:40 EDT Findings: No consolidation or effusion. Calculi within the gallbladder lumen without evidence of acute cholecystitis. Nodular hepatic contour without focal mass. Nonobstructing bilateral renal calculi, largest of which is in the right interpolar/inferior pole kidney measuring 18 mm. No bowel obstruction, pneumoperitoneum, or pneumatosis. Mild thickening of the sigmoid colon with surrounding fat stranding adjacent to an apparent anastomosis. Thickening of the descending colon hepatic flexure of colon. Large bowel containing anterior pelvic wall hernia measuring 21 cm. Appendix is not seen. No acute fracture. IMPRESSION: 1. Left colonic thickening, consistent with ischemia, infection, or inflammation. Follow-up endoscopy is recommended to exclude underlying neoplasm. 2. Bowel containing anterior pelvic wall hernia with no evidence of associated strangulation or obstruction. 3. Nonobstructing bilateral renal calculi. 4. Cholelithiasis. 5. Cirrhosis. This document has been electronically signed by: Yusra Noble MD on 10/03/2024 18:00:06
[2024-10-03 11:20] VITALS: BP 146/60; PULSE 41; RESP 18; TEMP 36.8; O2SAT 97; BMI 35.4
--- NOTE | 2024-10-03 11:20 | ED.GIBLEED ---
HPI - GI Bleed General Chief complaint: GI Bleed Stated complaint: Blood in Stool Time Seen by Provider: 10/03/24 13:45 Source: patient and other (patient's friend) Mode of arrival: ambulatory Limitations: no limitations History of Present Illness ED Provider: Nancy Thompson PA-C HPI Narrative: Patient is a 79 year old assigned female at with a history of hypertension, hyperlipidemia, qoi-fcznprk-vnbxupycj diabetes mellitus, hyperthyroidism, CKD stage 3, history of sigmoid stricture status post Vicki procedure with colostomy reversal, prior UTIs with resistant organisms, and a right retroperitoneal abscess and right-sided ureteric stent placement presenting to the emergency department today with bright red blood in her stool, abdominal cramping, and nausea. Patient states that this morning she had a bowel movement that had bright red in it but shortly after had another that had no blood in it or on the paper. Patient states that she was having some abdominal cramping but that has resolved and she is having some nausea. Patient denies any other complaints at this time. Related Data Home Medications ?Medication ?Instructions ?Recorded ?Confirmed atorvastatin 10 mg tablet 10 mg PO DAILY@149904/05/21 10/03/24 metformin 500 mg tablet,extended 500 mg PO DAILY@1700 04/06/21 10/03/24 release 24 hr acetaminophen 500 mg tablet 1,000 mg PO Q6H PRN Pain 10/04/23 10/03/24 levothyroxine 112 mcg tablet 112 mcg PO DAILY@0600 05/31/24 10/03/24 ascorbic acid (vitamin C) 1,000 mg 1,000 mg PO DAILY@149910/03/24 10/03/24 tablet cholecalciferol (vitamin D3) 25 50 mcg PO DAILY@149910/03/24 10/03/24 mcg (1,000 unit) capsule ferrous sulfate 325 mg (65 mg 325 mg PO DAILY@1500 anemia 10/03/24 10/03/24 iron) tablet furosemide 40 mg tablet 40 mg PO DAILY@149910/03/24 10/03/24 pyridoxine (vitamin B6) 50 mg 100 mg PO DAILY@149910/03/24 10/03/24 tablet tramadol 50 mg tablet 50 mg PO DAILY@1500 PRN Pain 10/03/24 10/03/24 trimethoprim 100 mg tablet 100 mg PO DAILY@149910/03/24 10/03/24 Previous Rx's ?Medication ?Instructions ?Recorded chair, wheel (Wheel chair) #1 ea 04/16/24 Allergies Allergy/AdvReac Type Severity Reaction Status Date / Time chlorpheniramine (From Allergy Severe HALLUCINATI Verified 10/03/24 15:53 TUSSIONEX) ONS ciprofloxacin (From CIPRO) Allergy Severe ANAPHYLAXIS Verified 10/03/24 15:53 escitalopram (ESCITALOPRAM) Allergy Severe DISSOCIATIVE Verified 10/03/24 15:53 REACTION fluoxetine (FLUOXETINE) Allergy Severe DISSOCIATIVE Verified 10/03/24 15:53 REACTION hydrocodone (From TUSSIONEX) Allergy Severe HALLUCINATI Verified 10/03/24 15:53 ONS ibuprofen (IBUPROFEN) Allergy Severe THROAT Verified 10/03/24 15:53 SWELLING Sulfa (Sulfonamide Allergy Severe DYSPNEA Verified 10/03/24 15:53 Antibiotics) (SULFA (SULFONAMIDE ANTIBIOTICS)) clarithromycin (From BIAXIN) Allergy Intermediate ABD.PAIN Verified 10/03/24 15:53 duloxetine (DULOXETINE) Allergy Intermediate FACIAL Verified 10/03/24 15:53 NUMBNESS erythromycin base Allergy Intermediate RASH Verified 10/03/24 15:53 (ERYTHROMYCIN BASE) Penicillins (PENICILLINS) Allergy Intermediate RASH Verified 10/03/24 11:23 tetracycline (TETRACYCLINE) Allergy Intermediate DIARRHEA Verified 10/03/24 11:23 codeine (CODEINE) Allergy Unknown TINNITIS Verified 10/03/24 11:23 guaifenesin Allergy Unknown Unknown Verified 10/03/24 11:23 levofloxacin (From Levaquin) Allergy Unknown Unknown Verified 10/03/24 11:23 pregabalin Allergy Unknown Unknown Verified 10/03/24 11:23 Review of Systems Constitutional: Constitutional: Reports as per HPI Eyes: Eyes: Reports as per HPI ENT: Reports as per HPI Cardiovascular: Cardiovascular: Reports as per HPI Respiratory: Respiratory: Reports as per HPI Gastrointestinal: Gastrointestinal: Reports as per HPI Genitourinary: Genitourinary: Reports as per HPI Musculoskeletal: Musculoskeletal: Reports as per HPI Integumentary/Breasts: Skin/Breast: Reports as per HPI Neurologic: Reports as per HPI Psychiatric: Psychiatric: Reports as per HPI Endocrine: Endocrine: Reports as per HPI Hematologic/Lymphatic: Hematologic/Lymphatic: Reports as per HPI Allergic/Immunologic: Allergic/Immunologic: Reports as per HPI [facility] Past Medical History Attestation statement: The following information was validated with the patient. (all information validated with the patient's friend) Source: old records reviewed, nursing notes reviewed and other (patient's friend provided additional history and confirmed the history provided by the patient.) Medical History UTI (urinary tract infection) Urinary tract infection due to ESBL Klebsiella Anemia Mechanical complication of urethral stent Blood per rectum Dysuria Abscess Hospital discharge follow-up Generalized abdominal pain Encounter for wheelchair assessment Diverticular disease Major depressive disorder Heel spur Chronic low back pain Uterine cancer Hyperthyroidism Weakness of both lower extremities Hydroureteronephrosis Wound infection Open wound of back, complicated Cellulitis Frequency of urination Vaginal burning Vaginal itching PMB (postmenopausal bleeding) Cirrhosis of liver Does mobilize using walker PONV (postoperative nausea and vomiting) Left foot drop Fatty liver Fibromyalgia Neuropathy RBBB Cholelithiasis Staghorn calculus Renal calculus, bilateral Renal calyceal dilation determined by ultrasound Diabetes mellitus, type II Ganglion cyst Plantar fasciitis Anxiety OA (osteoarthritis) Obstructive airway disease Hypercholesterolemia Low back pain Sciatica Hypothyroidism HTN (hypertension) Primary osteoarthritis of right knee Retained ureteral stent Renal stones Staghorn calculus Perirectal abscess Surgical History History of colostomy reversal (02/20/24) History of colectomy (~10/06/23) Status post cystoscopy with ureteral stent placement History of lumbar discectomy History of lumpectomy of both breasts History of cystoscopy History of lithotripsy Hx of colonoscopy (~04/28/23) History of surgery Family History Family History Father Alcohol dependence Mother CHF (congestive heart failure) Cancer of breast Mother No problems noted. Other Alcoholic cirrhosis Substance use disorder Social History Social History Household Members: Significant Other Housing: House Are you a primary manager respiratory care to a significant other at home: No Do you presently have visiting nurse or other home services: No Alcohol intake: current Alcohol intake frequency: does not drink Alcohol type: hard liquor Comment: wheelchair for long distances Patient Tobacco Use Status: Former Tobacco user Tobacco use type: Cigarette Years Smoked: 27 Smoked in Last 30 Days: No e-Cigarette/Vaping Use: Never Used Second Hand Smoke Exposure: No Use of substances other than those prescribed or required for medical reasons: No Advance Directives: Yes Advance Directives on File: Yes Advance Directives Date on File: 04/06/21 Do you have a plan to hurt others: No Plan service: No Current occupational status: disabled Cognitive needs: Yes (wheelchair) Hearing needs: No Vision needs: Yes (Glasses) Physical Exam Vital Signs: Vital Signs: Last Vital Signs Temp 98.4 F 10/03/24 19:16 Pulse 40 L 10/03/24 19:16 Resp 13 10/03/24 19:16 BP 130/40 L 10/03/24 19:16 Pulse Ox 99 10/03/24 19:16 O2 Del Method Room Air 10/03/24 19:16 BMI result Body Mass Index 34.7 Const: General: cooperative, no acute distress, alert and awake Nutritional Appearance: well nourished Orientation/consciousness: patient oriented x3 HEENT: Head: Yes normal to inspection and Yes atraumatic Ears: hearing grossly normal bilaterally and external ears normal General nose exam: Normal external nose present, no nasal discharge noted and no epistaxis Face and sinus: Yes normal facial exam, No abrasion and No laceration Mouth: Normal oral and palatal mucosa present, no drooling and no muffled voice Eyes: General: appearance normal, both eyes and all related structures Periorbital: periorbital findings normal Eyelids: Yes eyelids normal Conjunctivae: conjunctivae normal Pupils: Equal, round and reactive pupils present EOM: EOMs intact bilaterally Neck: Neck: Yes normal visual inspection and Yes full ROM Resp: Effort & Inspection: normal respiratory effort and able to speak in complete sentences Cardio: Rate: bradycardic Rhythm: regular rhythm GI: Palpation (GI): Soft to palpation, not firm, nontender, no guarding and not rigid Neuro: General: patient oriented x3, moves all extremities and CN's II-XI intact bilaterally Cranial nerves: Yes Equal, round and reactive pupils present Cognition (Neuro): normal cognition Extrem: General: Yes normal to inspection, Yes full ROM and Yes capillary refill normal Psych: Appearance: grossly normal Mental Status: mental status grossly normal Affect: normal affect Attitude: cooperative Thought process: Normal thought process present Thought content: Normal thought content present Insight: Good insight present (Psych) Course Course Course Narrative: This is an RME: Additional HPI, ROS, PE not included below will be deferred to primary provider. RME assessment and note performed by: Brianda Kunz PA-C This is a [id number]-female, with a hx of hypertension, hyperlipidemia, jhb-iqwwoht-seoxttwly diabetes mellitus, hyperthyroidism, CKD stage 3, history of sigmoid stricture status post Vicki procedure (10/06/23) with recent colostomy reversal (02/25/24) prior UTIs with resistant organisms, right retroperitoneal abscess and right-sided ureteric stent placement, who presents to the ER with concerns for rectal bleeding since this morning. Currently on low dose antibiotics through Dr. Reis. Pt presented with stool sample in hand. Pt well appearing, under no acute distress. Plan: Labs, stool panel, further ER eval needed Medications Administered Discontinued Medications Generic Name Dose Route Start Last Admin Trade Name Freq PRN Reason Stop Dose Admin Sodium Chloride 1,000 mls @ 999 mls/hr 10/03/24 16:15 10/03/24 17:48 Ns IV 10/03/24 17:15 Infused .Q1H1M NOHELIA Infusion Iohexol 100 ml 10/03/24 17:15 10/03/24 17:16 Iohexol 350 Mg/Ml 100 Ml Infus..Btl IV 10/03/24 17:16 85 ml ONCE ONE Administration Medical Decision Making Medical Decision Making [facility] Narrative: Patient is a 79 year old assigned female at with a history of hypertension, hyperlipidemia, rfe-ewtpofx-ckcqytknb diabetes mellitus, hyperthyroidism, CKD stage 3, history of sigmoid stricture status post Vicki procedure with colostomy reversal, prior UTIs with resistant organisms, and a right retroperitoneal abscess and right-sided ureteric stent placement presenting to the emergency department today with bright red blood in her stool, abdominal cramping, and nausea. Patient's physical exam showed bradycardia but was otherwise unremarkable. Patient's blood work showed an FELICITA with a CR of 2.18. Patient's lactic acid was 2.4. Patient's EKG showed sinus bradycardia. Patient's CT abd/pelvis showed left sided colonic thickening which the radiologist speculated could be ischemia vs. inflammation vs. underlying neoplasm. I spoke with the hospitalist team who requested I consult with a vascular service before admitting the patient here to ensure no intervention is needed requiring transfer. I spoke with Dr. Abarca, a vascular surgeon, from [facility] who stated that this is most consistent with ischemic colitis and not an acute vascular emergency requiring any intervention from a vascular service - he stated this is managed medically with IV fluids and bowel rest. I circled back with the hospitalist team after this consult who agreed to admission. I explained my physical exam findings as well as all test results to the patient. I answered all questions asked by the patient. Patient verbalized agreement and understanding with this treatment plan and admission. Differential Diagnosis Differential Diagnoses: The differential diagnosis associated with the presentation includes Ischemic colitis Abdominal pain Bradycardia FELICITA Admission/Observation Consideration of admission/observation: Escalation of care including admission/observation considered Patient admitted as noted in the MDM Rationale portion of this note. Consult Healthcare Provider Management of the patient was discussed with: Hospitalist (agreed to admission as noted in the MDM Rationale portion of this note. ) and Rental Sales Representative (spoke with Dr. Abarca, the vascular surgeon, as noted in the MDM Rationale portion of this note. ) Lab Data [facility] Lab Attestation statement: I reviewed the patient's lab results. My interpretation of these results are in the MDM Rationale portion of this note. 10/03/24 11:58 10/03/24 11:58 Labs: Lab Results 10/03/24 10/03/24 Range/Units 11:58 19:10 WBC 10.5 (4.8-10.8) X10*3/uL RBC 4.05 L (4.20-5.50) X10*6/uL Hgb 11.3 L (12.0-16.0) g/dl Hct 35.8 L (37.0-47.0) % MCV 88.4 (80.0-98.0) fL MCH 27.9 (27.0-33.0) pg MCHC 31.6 (31.0-35.0) g/dl RDW 17.1 H (11.0-16.0) % Plt Count 224 (160-400) X10*3/uL MPV 9.2 L (9.4-12.3) fL Immature Gran % (Auto) 1.0 H (0.0-0.4) % Neut % (Auto) 69.4 (45-73) % Lymph % (Auto) 20.8 (20-40) % [place] % (Auto) 7.4 (2-11) % Eos % (Auto) 1.1 (0-4) % Baso % (Auto) 0.3 (0-2) % Lymph # (Auto) 2.2 (1.2-4.9) X10*3/uL [place] # (Auto) 0.8 (0.1-1.2) X10*3/uL Eos # (Auto) 0.1 (0.0-0.4) X10*3/uL Baso # (Auto) 0.0 (0.0-0.2) X10*3/uL Abs Immat Gran (auto) 0.10 H (0.00-0.03) X10*3/uL Absolute Neuts (auto) 7.3 (2.0-8.3) x10*3/uL Absolute Nucleated RBC 0.000 (0.0-0.012) X10*3/uL Nucleated RBC % (auto) 0.0 (0.0-0.2) /100WBC Sodium 137 (135-145) mmol/L Potassium 4.6 D (3.3-5.1) mmol/L Chloride 105 (96-108) mmol/L Carbon Dioxide 24 (22-29) mmol/L Anion Gap 13 (12-20) BUN 25 H (9-16) mg/dL Creatinine 2.18 H (0.5-1.4) mg/dL Estim Creat Clear Calc 22.2 Estimated GFR 22 Random Glucose 119 H (60-115) mg/dL Lactic Acid 2.4 H* (0.5-2.0) mmol/L Calcium 9.4 (8.4-10.2) mg/dL Total Bilirubin 0.6 (0.0-1.0) mg/dL Direct Bilirubin 0.2 (0.0-0.5) mg/dL AST 48 H (5-31) U/L ALT 29 (0-31) U/L Alkaline Phosphatase 70 (39-117) U/L Total Protein 8.2 H (6.5-8.0) g/dL Albumin 3.9 (3.5-5.0) g/dL Lipase 12 (8-78) U/L Independent Interpretation I performed an independent interpretation of an: EKG and CT Scan Interpretation: My interpretation is in agreement with the radiologist's impression of this imaging study. Report Number: [id number]: Total DLP = 884.00 mGy-cm CLINICAL HISTORY: abd pain CT abdomen and pelvis with contrast Comparison: CT - CT ABDOMEN PELVIS W IV CON - 10/03/24 16:[address]/REG/SR - CT ABDOMEN PELVIS WO IV CON - 08/01/24 18:40 EDT Findings: No consolidation or effusion. Calculi within the gallbladder lumen without evidence of acute cholecystitis. Nodular hepatic contour without focal mass. Nonobstructing bilateral renal calculi, largest of which is in the right interpolar/inferior pole kidney measuring 18 mm. No bowel obstruction, pneumoperitoneum, or pneumatosis. Mild thickening of the sigmoid colon with surrounding fat stranding adjacent to an apparent anastomosis. Thickening of the descending colon hepatic flexure of colon. Large bowel containing anterior pelvic wall hernia measuring 21 cm. Appendix is not seen. No acute fracture. IMPRESSION: 1. Left colonic thickening, consistent with ischemia, infection, or inflammation. Follow-up endoscopy is recommended to exclude underlying neoplasm. 2. Bowel containing anterior pelvic wall hernia with no evidence of associated strangulation or obstruction. 3. Nonobstructing bilateral renal calculi. 4. Cholelithiasis. 5. Cirrhosis. This document has been electronically signed by: Yusra Noble MD on 10/03/2024 18:00:06 Dictated By: Yusra Noble MD Signed By: Electronically signed by Yusra Noble MD 10/03/24 1800 I independently interpreted this EKG and am in agreement with the below findings: Vent. Rate: 40 BPM Atrial Rate: 40 BPM P-R Int: 346 ms QRS Dur: 132 ms QT Int: 568 ms P-R-T Axes: 97 122 56 degrees QTcB Int: 462 ms Sinus bradycardia with 1st degree A-V block Right bundle branch block DD/ 1913 Radiology Impression Discussion of test interpretation with radiology: I have reviewed the radiologist's reading. Independent Historian Clinical information obtained from an independent historian. History obtained from or confirmed by: Other (patient's friend provided additional history and confirmed the history provided by the patient. ) External Record Review External record reviewed: Inpatient record Critical Care Time Critical Care Time Critical Care Time: Yes Total Critical Care Time: 53 Attestation: I spent 53 minutes of Critical Care Time with this patient. This does not include time spent on separately reported billable procedures. Discharge Plan Discharge Clinical Impression: FELICITA (acute kidney injury), Bradycardia, Ischemic colitis Patient Disposition: Admitted As Inpatient Print Language: Nepalese
[2024-10-03 12:02] LABS: MANUAL DIFF FLAG NO
[2024-10-03 12:03] LABS: Hematocrit 35.8 % (37.0-47.0); Hemoglobin 11.3 g/dl (12.0-16.0); Imm Gran Abs Auto 0.10 X10*3/uL (0.00-0.03); Imm Gran Pct Auto 1.0 % (0.0-0.4); Lymphocytes Absolute Auto 2.2 X10*3/uL (1.2-4.9); Mean Corpuscular HGB Conc 31.6 g/dl (31.0-35.0); Mean Corpuscular Hemoglobin 27.9 pg (27.0-33.0); Mean Corpuscular Volume 88.4 fL (80.0-98.0); NRBC Abs Auto 0.000 X10*3/uL (0.0-0.012); NRBC Pct Auto 0.0 /100WBC (0.0-0.2); Platelet Count 224 X10*3/uL (160-400); Red Blood Count 4.05 X10*6/uL (4.20-5.50); White Blood Count 10.5 X10*3/uL (4.8-10.8)
[2024-10-03 12:17] LABS: Alanine Aminotransferase 29 U/L (0-31); Albumin Level 3.9 g/dL (3.5-5.0); Alkaline Phosphatase 70 U/L (39-117); Anion Gap 13 (12-20); Aspartate Amino Transferase 48 U/L (5-31); Blood Urea Nitrogen 25 mg/dL (9-16); Calcium 9.4 mg/dL (8.4-10.2); Carbon Dioxide 24 mmol/L (22-29); Chloride 105 mmol/L (96-108); Creatinine Clr Calc Pharmacy 22.2; Estimated Glomerular Filt Rate 22; Lipase 12 U/L (8-78); Potassium 4.6 mmol/L (3.3-5.1); Sodium 137 mmol/L (135-145); Total Protein 8.2 g/dL (6.5-8.0)
--- OUTSIDE RECORDS SUMMARY | 2024-10-03 15:18 | XMS_ITS | Encounter Summary ---
Author Organization [facility] Address [address] [place] [id number] Care Team Providers Care Needle Punch Machine Operator Name Role Phone Preston Wang DO Primary Care Provider Encounter Details Date Type Department Care Team (Late st Contact Info) Description 08/17/2024 Lab Requisition [facility] [address] [facility] [place] [address] Carolina Phillips MD [address] [phone] Sepsis, unspecified organism (CMS/HCC V24, CMS/HCC V28); [...] mmol/L LAB CHEMISTRY METHOD 08/20/2024 3:08 PM [facility] Potassium 3.7 3.5 - 5.5 mmol/L LAB CHEMISTRY METHOD 08/20/2024 3:08 PM [facility] Chloride 106 96 - 110 mmol/L LAB CHEMISTRY METHOD 08/20/2024 3:08 PM [facility] CO2 25 21 - 32 mmol/L LAB CHEMISTRY METHOD 08/20/2024 3:08 PM [facility] Anion Gap 9 3 - 11 LAB CHEMISTRY METHOD 08/20/2024 3:08 PM [facility] Glucose 171(H) 70 - 100 mg/dL LAB CHEMISTRY METHOD 08/20/2024 3:08 PM [facility] BUN 22 5 - 25 mg/dL LAB CHEMISTRY METHOD 08/20/2024 3:08 PM [facility] Creatinine 1.39(H) 0.50 - 1.10 mg/dL LAB CHEMISTRY METHOD 08/20/2024 3:08 PM [facility] eGFR 39(L) >=60 mL/min/1. 73m2 LAB CHEMISTRY METHOD 08/20/2024 3:08 PM [facility] Comment:Calculation based on the Chronic Kidney Disease Epidemiology Collaboration (CKD-EPI) equation refit without adjustment for race. BUN/Creatinine Ratio 15.8 LAB CHEMISTRY METHOD 08/20/2024 3:08 PM [facility] Calcium 8.8 8.5 - 10.5 mg/dL LAB CHEMISTRY METHOD 08/20/2024 3:08 PM [facility] AST (SGOT) 52(H) 10 - 42 unit/L LAB CHEMISTRY METHOD 08/20/2024 3:08 PM [facility] ALT (SGPT) 60 10 - 60 unit/L LAB CHEMISTRY METHOD 08/20/2024 3:08 PM EDT [facility] Alkaline Phosphatase 83 42 - 121 unit/L LAB CHEMISTRY METHOD 08/20/2024 3:08 PM T [facility] Total Protein 7.0 6.0 - 8.0 g/dL LAB CHEMISTRY METHOD 08/20/2024 3:08 PM [facility] Albumin 2.8(L) 3.2 - 5.0 g/dL LAB CHEMISTRY METHOD 08/20/2024 3:08 PM [facility] Total Bilirubin 0.4 0.0 - 1.4 mg/dL LAB CHEMISTRY METHOD 08/20/2024 3:08 PM [facility] Blood Venous blood specimen / Unknown Venipuncture / Unknown 08/20/2024 5:33 AM EDT 08/20/2024 10:27 AM EDT us Carolina Phillips MD LAB BLOOD ORDERABLES Fin al Result [facility] [address] [place] [address], * (ABNORMAL) Complete blood count (08/20/2024 5:33 AM EDT) WBC 6.0 4.8 - 10.8 K/mcL LAB HEMETOLOGY METHOD 08/20/2024 11:45 AM EDT [facility] RBC 3.40(L) 3.80 - 4.80 M/mcL LAB HEMETOLOGY METHOD 08/20/2024 11:45 AM EDT [facility] Hemoglobin 9.1(L) 11.5 - 16.0 g/dL LAB HEMETOLOGY METHOD 08/20/2024 11:45 AM [facility] Hematocrit 30.8(L) 35.0 - 47.0 % LAB HEMETOLOGY METHOD 08/20/2024 11:45 AM EDT [facility] MCV 91.1 79.0 - 98.0 FL LAB HEMETOLOGY METHOD 08/20/2024 11:45 AM EDT [facility] MCH 26.9(L) 27.0 - 32.0 pcg LAB HEMETOLOGY METHOD 08/20/2024 11:45 AM EDT [facility] MCHC 29.5(L) 32.0 - 37.0 g/dL LAB HEMETOLOGY METHOD 08/20/2024 11:45 AM EDT [facility] RDW 16.8(H) 11.0 - 15.0 % LAB HEMETOLOGY METHOD 08/20/2024 11:45 AM EDT [facility] Platelets 200 130 - 400 K/mcL LAB HEMETOLOGY METHOD 08/20/2024 11:45 AM EDT [facility] MPV 10.1 7.0 - 11.0 FL LAB HEMETOLOGY METHOD 08/20/2024 11:45 AM EDT [facility] NRBC 0.0 <1.0 % LAB HEMETOLOGY METHOD 08/20/2024 11:45 AM EDT [facility] NRBC Absolute 0.00 <0.10 K/mcL LAB HEMETOLOGY METHOD 08/20/2024 11:45 AM T [facility] Blood Venous blood specimen / Unknown Venipuncture / Unknown 08/20/2024 5:33 AM EDT 08/20/2024 10:22 AM EDT us Carolina Phillips MD LAB BLOOD ORDERABLES Fin al Result [facility] [address] [place] [address], documented in this encounter Visit Diagnoses Diagnosis Sepsis, unspecified organism (CMS/HCC V24, CMS/[facility] V28) Essential (primary) hypertension Unspecified essential hypertension Urinary tract infection, site not specified documented in this encounter Care Teams Needle Punch Machine Operator Relationship Specialty Start Date End Date Preston Wang DO [address] [place] [phone] PCP - General Internal Medicine 09/05/17 documented as of this encounter
--- OUTSIDE RECORDS SUMMARY | 2024-10-03 15:19 | XMS_ITS | Clinical Summary ---
Author Organization [address] Address [address] [place] [phone] Phone Care Team Providers Care Drivers License Examiner Name Role Phone Preston Wang DO Primary Care Provider [phone] Encounters Date Type Department Care Team Description 09/01/[address] [facility] [address] [place] [phone] Carolina Phillips MD Sepsis, unspecified organism ([facility] V24, [facility] V28); Essential (primary) hypertension; Urinary tract infection, site not specified 08/26/[address] [facility] [address] [place] [phone] Carolina Phillips MD Sepsis, unspecified organism ([facility] V24, [facility] V28); Essential (primary) hypertension; Urinary tract infection, site not specified 08/17/[address] [facility] [address] [place] [phone] Carolina Phillips MD Sepsis, unspecified organism ([facility] V24, [facility] V28); Essential (primary) hypertension; Urinary tract infection, site not specified 08/10/[address] [facility] [address] [place] [phone] Carolina Phillips MD Sepsis, unspecified organism ([facility] V24, [facility] V28); Essential (primary) hypertension; Urinary tract infection, site not specified; Type 2 diabetes mellitus without complications ([facility] V24, [facility] V28) 08/09/2024 Lab Requisition [facility] Lab [address] [facility] [place] [phone] Carolina Phillips MD Chronic kidney disease, unspecified; 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 card tender (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; Methemoglobinemia, unspecified; Extended spectrum beta lactamase (ESBL) resistance; Type 2 diabetes mellitus without complications ([facility] V24, [facility] V28) from Last 3 Months Social History Tobacco Use Types Packs/Day Years Used Date Smoking Tobacco: Never Assessed Comments Unknown Sex and Gender Information Value Date Recorded Sex Assigned at Not on file Legal Sex Female 7:44 PM EST Gender Identity Not on file Sexual Orientation Not on file Plan of Treatment Health Maintenance Due Date Last Done Comments Diabetes: Annual Foot Exam 1955 Diabetes: Annual Retina Eye Exam 1955 DTaP,Tdap,and Td Vaccines (1 - Tdap) 1966 Pneumococcal Vaccine: 50+ Years (1 of 2 - PCV) 1966 Zoster Vaccines (1 of 2) 1997 RSV Immunization Adult Patients (1 - 1-dose 75+ series) 2022 COVID-19 Vaccine ( - season) 2023 Depression Screening 02/08/2024 Cholesterol Screening (Lipid Panel) 08/06/2024 Falls Risk Assessment 08/06/2024 Hepatitis C Screening 08/06/2024 Medicare Annual Wellness Visit 08/06/2024 Osteoporosis Screening (Bone Density Screening) 08/06/2024 Social Influencers of Health Screening 08/06/2024 Diabetes: Annual Urine Albumin-Creatinine Ratio (uACR) 08/10/2024 Influenza Vaccine (#1) 2024 Diabetes: Blood Sugar Control Test (HGBA1C) 02/09/2025 08/09/2024 Diabetes: Annual GFR (Glomerular Filtration Rate) 08/27/2025 08/27/2024, 08/20/2024, 08/13/2024, Additional history exists Hypertension/CHF/CAD Annual BMP Blood Test 08/27/2025 08/27/2024, 08/20/2024, 08/13/2024, Additional history exists HIB Vaccines Aged Out No longer eligi [...] to complete this topic RSV Immunization Patients Under 20 months Aged Out No longer eligible based on patient's age to complete this topic Varicella Vaccines Aged Out No longer eligible based on patient's age to complete this topic Procedures Procedure Name Priority Date/Time Associated Diagnosis Comments COMPREHENSIVE METABOLIC PANEL Routine 08/27/2024 5:33 AM EDT Sepsis, unspecified organism (CMS/HCC V24, CMS/HCC V28) Essential (primary) hypertension Urinary tract infection, site not specified COMPLETE BLOOD COUNT Routine 08/27/2024 5:33 AM EDT Sepsis, unspecified organism (CMS/HCC V24, CMS/HCC V28) Essential (primary) hypertension Urinary tract infection, site not specified COMPREHENSIVE METABOLIC PANEL Routine 08/20/2024 5:33 AM EDT Sepsis, unspecified organism (CMS/HCC V24, CMS/HCC V28) Essential (primary) hypertension Urinary tract infection, site not specified COMPLETE BLOOD COUNT Routine 08/20/2024 5:33 AM EDT Sepsis, unspecified organism (CMS/HCC V24, CMS/HCC V28) Essential (primary) hypertension Urinary tract infection, site not specified COMPREHENSIVE METABOLIC PANEL Routine 08/13/2024 6:34 AM EDT Sepsis, unspecified organism (CMS/HCC V24, CMS/HCC V28) Essential (primary) hypertension Urinary tract infection, site not specified Type 2 diabetes mellitus without complications (CMS/HCC V24, CMS/HCC V28) COMPLETE BLOOD COUNT Routine 08/13/2024 6:34 AM EDT Sepsis, unspecified organism (CMS/HCC V24, CMS/HCC V28) Essential (primary) hypertension Urinary tract infection, site not specified Type 2 diabetes mellitus without complications (CMS/HCC V24, CMS/HCC V28) HEMOGLOBIN A1C Routine 08/09/2024 7:06 AM EDT Chronic kidney disease, unspecified care home (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 Methemoglobinemia, 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 Type 2 diabetes mellitus without complications (CMS/HCC V24, [facility] V28) COMPREHENSIVE METABOLIC PANEL Routine 08/09/2024 7:06 AM EDT Chronic kidney disease, unspecified 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 card 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 (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 Methemoglobinemia, 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 Type 2 diabetes mellitus without complications ([facility] V24, [facility] V28) COMPLETE BLOOD COUNT Routine 08/09/2024 7:06 AM EDT Chronic kidney disease, unspecified 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 [facility] WBC 7.1 4.8 - 10.8 K/mcL LAB HEMETOLOGY METHOD 08/27/2024 12:29 PM T [facility] RBC 3.30(L) 3.80 - 4.80 M/mcL LAB HEMETOLOGY METHOD 08/27/2024 12:29 PM [facility] Hemoglobin 9.0(L) 11.5 - 16.0 g/dL LAB HEMETOLOGY METHOD 08/27/2024 12:29 PM [facility] Hematocrit 30.5(L) 35.0 - 47.0 % LAB HEMETOLOGY METHOD 08/27/2024 12:29 PM EDT [facility] MCV 91.6 79.0 - 98.0 FL LAB HEMETOLOGY METHOD 08/27/2024 12:29 PM EDT [facility] MCH 27.0 27.0 - 32.0 pcg LAB HEMETOLOGY METHOD 08/27/2024 12:29 PM EDT [facility] MCHC 29.5(L) 32.0 - 37.0 g/dL LAB HEMETOLOGY METHOD 08/27/2024 12:29 PM EDT [facility] RDW 16.8(H) 11.0 - 15.0 % LAB HEMETOLOGY METHOD 08/27/2024 12:29 PM EDT [facility] Platelets 174 130 - 400 K/mcL LAB HEMETOLOGY METHOD 08/27/2024 12:29 PM EDT [facility] MPV 10.3 7.0 - 11.0 FL LAB HEMETOLOGY METHOD 08/27/2024 12:29 PM EDT [facility] NRBC 0.0 <1.0 % LAB HEMETOLOGY METHOD 08/27/2024 12:29 PM EDT [facility] NRBC Absolute 0.00 <0.10 K/mcL LAB HEMETOLOGY METHOD 08/27/2024 12:29 PM EDT [facility] Blood Venous blood specimen / Unknown Venipuncture / Unknown 08/27/2024 5:33 AM EDT 08/27/2024 11:39 AM EDT us Carolina Phillips MD LAB BLOOD ORDERABLES Fin al Result [facility] [address] [place] [address], * (ABNORMAL) Comprehensive metabolic panel (08/27/2024 5:33 AM EDT) Only the most recent of4 resultswithin the time period is included. Sodium 139 133 - 145 mmol/L LAB CHEMISTRY METHOD 08/27/2024 1:22 PM [facility] Potassium 3.8 3.5 - 5.5 mmol/L LAB CHEMISTRY METHOD 08/27/2024 1:22 PM [facility] Chloride 104 96 - 110 mmol/L LAB CHEMISTRY METHOD 08/27/2024 1:22 PM [facility] CO2 27 21 - 32 mmol/L LAB CHEMISTRY METHOD 08/27/2024 1:22 PM [facility] Anion Gap 8 3 - 11 LAB CHEMISTRY METHOD 08/27/2024 1:22 PM [facility] Glucose 118(H) 70 - 100 mg/dL LAB CHEMISTRY METHOD 08/27/2024 1:22 PM [facility] BUN 22 5 - 25 mg/dL LAB CHEMISTRY METHOD 08/27/2024 1:22 PM [facility] Creatinine 1.52(H) 0.50 - 1.10 mg/dL LAB CHEMISTRY METHOD 08/27/2024 1:22 PM [facility] eGFR 35(L) >=60 mL/min/1. 73m2 LAB CHEMISTRY METHOD 08/27/2024 1:22 PM [facility] Comment:Calculation based on the Chronic Kidney Disease Epidemiology Collaboration (CKD-EPI) equation refit without adjustment for race. BUN/Creatinine Ratio 14.5 LAB CHEMISTRY METHOD 08/27/2024 1:22 PM [facility] Calcium 8.6 8.5 - 10.5 mg/dL LAB CHEMISTRY METHOD 08/27/2024 1:22 PM [facility] AST (SGOT) 32 10 - 42 unit/L LAB CHEMISTRY METHOD 08/27/2024 1:22 PM [facility] ALT (SGPT) 50 10 - 60 unit/L LAB CHEMISTRY METHOD 08/27/2024 1:22 PM EDT [facility] Alkaline Phosphatase 83 42 - 121 unit/L LAB CHEMISTRY METHOD 08/27/2024 1:22 PM EDT [facility] Total Protein 6.9 6.0 - 8.0 g/dL LAB CHEMISTRY METHOD 08/27/2024 1:22 PM EDT [facility] Albumin 2.8(L) 3.2 - 5.0 g/dL LAB CHEMISTRY METHOD 08/27/2024 1:22 PM EDT [facility] Total Bilirubin 0.4 0.0 - 1.4 mg/dL LAB CHEMISTRY METHOD 08/27/2024 1:22 PM EDT [facility] Blood Venous blood specimen / Unknown Venipuncture / Unknown 08/27/2024 5:33 AM EDT 08/27/2024 11:39 AM EDT us Carolina Phillips MD LAB BLOOD ORDERABLES Fin al Result [facility] [address] [place] [address], * Hemoglobin A1c (08/09/2024 7:06 AM EDT) Hemoglobin A1C 6.1 <6.5 % LAB CHEMISTRY METHOD 08/09/2024 8:43 PM EDT [facility] Mean Bld Glu Estim. 128 mg/dL LAB CHEMISTRY METHOD 08/09/2024 8:43 PM EDT [facility] Blood Venous blood specimen / Unknown Venipuncture / Unknown 08/09/2024 7:06 AM EDT 08/09/2024 9:18 AM EDT us Carolina Phillips MD LAB BLOOD ORDERABLES Fin al Result [facility] [address] [place] [address], [place] [phone] from Last 3 Months Insurance MEDICARE [facility] Advance Directives Documents on File Type Date Recorded Patient Box Bender Expl anation Health Care Decision (hx) 10/13/2017 BYRON ALMEIDA DIRECTIVE Care Teams Drivers License Examiner Relationship Specialty Start Date End Date Preston Wang DO [address] [place] [phone] PCP - General Internal Medicine 09/05/17
--- OUTSIDE RECORDS SUMMARY | 2024-10-03 15:19 | XMS_ITS | Clinical Summary ---
Author Organization [facility] Address [address] [place] [phone] Phone Care Team Providers Care Guide Dog Trainer Name Role Phone Pcp, Unknown Primary Care [...] file Insurance MEDICARE PART A & B [employer] SUPPLEMENT MEDICARE PART A & B [employer] MEDEX SUPPLEMENT MEDICARE PART A & B [employer] MEDEX SUPPLEMENT MEDICARE PART A & B [facility] MEDEX SUPPLEMENT MEDICARE PART A & B [employer] MEDEX SUPPLEMENT MEDICARE PART A & B [employer] MEDEX SUPPLEMENT Care Teams Guide Dog Trainer Relationship Specialty Start Date End Date Pcp, Unknown PCP - General 04/27/24 Additional Source Comments The information contained in this document represents components of the legal health record. It is not the complete legal health record.[facility]
--- OUTSIDE RECORDS SUMMARY | 2024-10-03 15:19 | XMS_ITS | Encounter Summary ---
Author Organization [facility] Address [address] [place] [phone] Care Team Providers Care Product Scientist Name Role Phone Preston Wang DO Primary Care Provider [phone] Encounter Details Date Type Department Care Team (Late st Contact Info) Description 09/01/2024 Lab Requisition [facility] Lab [address] [facility] [place] [phone] Carolina Phillips MD [address] [id number] Sepsis, unspecified organism (CMS/HCC V24, CMS/[facility] V28); Essential (primary) hypertension; [...] on file documented as of this encounter Visit Diagnoses Diagnosis Sepsis, unspecified organism (CMS/HCC V24, CMS/[facility] V28) Essential (primary) hypertension Unspecified essential hypertension Urinary tract infection, site not specified documented in this encounter Care Teams Product Scientist Relationship Specialty Start Date End Date Preston Wang DO [address] [place] [phone] PCP - General Internal Medicine 09/05/17 documented as of this encounter
--- OUTSIDE RECORDS SUMMARY | 2024-10-03 15:19 | XMS_ITS | Encounter Summary ---
Author Organization [facility] Address [address] [place] [phone] Care Team Providers Care Manager Of Compliance Name Role Phone Preston Wang DO Primary Care Provider [phone] Encounter Details Date Type Department Care Team (Late st Contact Info) Description 08/10/2024 Lab Requisition [facility] - Main Lab [address] [facility] [place] [phone] Carolina Phillips MD [address] [address] Sepsis, unspecified organism (CMS/HCC V24, CMS/HCC V28); Essential (primary) hypertension; Urinary tract infection, site not specified; Type 2 diabetes mellitus without complications (CMS/HCC V24, CMS/HCC V28) Social History Tobacco Use Types Packs/Day Years [...] Associated Diagnosis Comments COMPLETE BLOOD COUNT Routine 08/13/2024 6:34 AM EDT Sepsis, unspecified organism (CMS/HCC V24, CMS/HCC V28) Essential (primary) hypertension Urinary tract infection, site not specified Type 2 diabetes mellitus without complications (CMS/HCC V24, CMS/HCC V28) COMPREHENSIVE METABOLIC PANEL Routine 08/13/2024 6:34 AM EDT Sepsis, unspecified organism (CMS/HCC V24, CMS/HCC V28) Essential (primary) hypertension Urinary tract infection, site not specified Type 2 diabetes mellitus without complications (CMS/HCC V24, [facility] V28) documented in this encounter Results * (ABNORMAL) Comprehensive metabolic panel (08/13/2024 6:34 AM EDT) Sodium 136 133 - 145 mmol/L LAB CHEMISTRY METHOD 08/13/2024 1:[address] [facility] Potassium 4.4 3.5 - 5.5 mmol/L LAB CHEMISTRY METHOD 08/13/2024 1:[address] [facility] Chloride 100 96 - 110 mmol/L LAB CHEMISTRY METHOD 08/13/2024 1:[address] [facility] CO2 31 21 - 32 mmol/L LAB CHEMISTRY METHOD 08/13/2024 1:[address] [facility] Anion Gap 5 3 - 11 LAB CHEMISTRY METHOD 08/13/2024 1:[address] [facility] Glucose 71 70 - 100 mg/dL LAB CHEMISTRY METHOD 08/13/2024 1:[address] [facility] BUN 18 5 - 25 mg/dL LAB CHEMISTRY METHOD 08/13/2024 1:[address] [facility] Creatinine 1.44(H) 0.50 - 1.10 mg/dL LAB CHEMISTRY METHOD 08/13/2024 1:[address] [facility] eGFR 38(L) >=60 mL/min/1. 73m2 LAB CHEMISTRY METHOD 08/13/2024 1:[address] [facility] Comment:Calculation based on the Chronic Kidney Disease Epidemiology Collaboration (CKD-EPI) equation refit without adjustment for race. BUN/Creatinine Ratio 12.5 LAB CHEMISTRY METHOD 08/13/2024 1:[address] [facility] Calcium 8.8 8.5 - 10.5 mg/dL LAB CHEMISTRY METHOD 08/13/2024 1:[address] [facility] AST (SGOT) 41 10 - 42 unit/L LAB CHEMISTRY METHOD 08/13/2024 1:13 PM EDT [facility] ALT (SGPT) 36 10 - 60 unit/L LAB CHEMISTRY METHOD 08/13/2024 1:13 PM EDT [facility] Alkaline Phosphatase 70 42 - 121 unit/L LAB CHEMISTRY METHOD 08/13/2024 1:13 PM EDT [facility] Total Protein 7.1 6.0 - 8.0 g/dL LAB CHEMISTRY METHOD 08/13/2024 1:13 PM EDT [facility] Albumin 2.6(L) 3.2 - 5.0 g/dL LAB CHEMISTRY METHOD 08/13/2024 1:13 PM EDT [facility] Total Bilirubin 0.6 0.0 - 1.4 mg/dL LAB CHEMISTRY METHOD 08/13/2024 1:13 PM EDT [facility] Blood Venous blood specimen / Unknown Venipuncture / Unknown 08/13/2024 6:34 AM EDT 08/13/2024 11:49 AM EDT us Carolina Phillips MD LAB BLOOD ORDERABLES Fin al Result [facility] [address] [place] [address], * (ABNORMAL) Complete blood count (08/13/2024 6:34 AM EDT) WBC 8.9 4.8 - 10.8 K/mcL LAB HEMETOLOGY METHOD 08/13/2024 1:07 PM EDT [facility] RBC 3.40(L) 3.80 - 4.80 M/mcL LAB HEMETOLOGY METHOD 08/13/2024 1:07 PM EDT [facility] Hemoglobin 8.9(L) 11.5 - 16.0 g/dL LAB HEMETOLOGY METHOD 08/13/2024 1:[address] [facility] Hematocrit 30.2(L) 35.0 - 47.0 % LAB HEMETOLOGY METHOD 08/13/2024 1:07 PM EDT [facility] MCV 88.8 79.0 - 98.0 FL LAB HEMETOLOGY METHOD [facility]24 [facility] MCH 26.2(L) 27.0 - 32.0 pcg LAB HEMETOLOGY METHOD 08/13/2024 1:07 PM EDT [facility] MCHC 29.5(L) 32.0 - 37.0 g/dL LAB HEMETOLOGY METHOD 08/13/2024 1:[address] [facility] RDW 17.2(H) 11.0 - 15.0 % LAB HEMETOLOGY METHOD 08/13/2024 [facility] Platelets 276 130 - 400 K/mcL LAB HEMETOLOGY METHOD 08/13/2024 1:[facility] MPV 9.2 7.0 - 11.0 FL LAB HEMETOLOGY METHOD 08/13/2024 1:[facility] NRBC 0.0 <1.0 % LAB HEMETOLOGY METHOD 08/13/2024 1:[facility] NRBC Absolute 0.00 <0.10 K/mcL LAB HEMETOLOGY METHOD 08/13/2024 1:[address] [facility] Blood Venous blood specimen / Unknown Venipuncture / Unknown 08/13/2024 6:34 AM EDT 08/13/2024 11:49 AM EDT us Carolina Phillips MD LAB BLOOD ORDERABLES Fin al Result [facility] [address] [place] [address], documented in this encounter Visit Diagnoses Diagnosis Sepsis, unspecified organism ([facility] V24, [facility] V28) Essential (primary) hypertension Unspecified essential hypertension Urinary tract infection, site not specified Type 2 diabetes mellitus without complications ([facility] V24, [facility] V28) documented in this encounter Care Teams Manager Of Compliance Relationship Specialty Start Date End Date Preston Wang DO [address] [place] [phone] PCP - General Internal Medicine 09/05/17 documented as of this encounter
--- OUTSIDE RECORDS SUMMARY | 2024-10-03 15:19 | XMS_ITS | Encounter Summary ---
Author Organization [facility] Address [id number] [place] [phone] Care Team Providers Care Bowling Ball Grader Name Role Phone Preston Wang DO Primary Care Provider [phone] Encounter Details Date Type Department Care Team (Late st Contact Info) Description 08/09/2024 Lab Requisition [facility] - Main Lab [address] [facility] [place] [address] Carolina Phillips MD [address] [address] Chronic kidney disease, unspecified; correction (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; Methemoglobinemia, unspecified; Extended spectrum beta lactamase (ESBL) resistance; Type 2 diabetes mellitus without complications (CMS/[facility] V24, CMS/[facility] V28) Social History Tobacco Use Types Packs/Day [...] Associated Diagnosis Comments COMPLETE BLOOD COUNT Routine 08/09/2024 7:06 AM EDT Chronic kidney disease, unspecified correction (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 Methemoglobinemia, 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 Type 2 diabetes mellitus without complications (CMS/HCC V24, CMS/[facility] V28) HEMOGLOBIN A1C Routine 08/09/2024 7:06 AM EDT Chronic kidney disease, unspecified termination clerk (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 Methemoglobinemia, 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 Type 2 diabetes mellitus without complications (CMS/HCC V24, CMS/HCC V28) COMPREHENSIVE METABOLIC PANEL Routine 08/09/2024 7:06 AM EDT Chronic kidney disease, unspecified correction (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 Methemoglobinemia, 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 128 mg/dL LAB CHEMISTRY METHOD 08/09/2024 8:43 PM EDT [facility] Blood Venous blood specimen / Unknown Venipuncture / Unknown 08/09/2024 7:06 AM EDT 08/09/2024 9:18 AM EDT us Carolina Phillips MD LAB BLOOD ORDERABLES Fin al Result [facility] [address] [place] [address], * (ABNORMAL) Comprehensive metabolic panel (08/09/2024 7:06 AM EDT) [facility] Sodium 139 133 - 145 mmol/L LAB CHEMISTRY METHOD 08/09/2024 11:08 AM EDT [facility] Potassium 3.9 3.5 - 5.5 mmol/L LAB CHEMISTRY METHOD 08/09/2024 11:08 AM EDT [facility] Chloride 104 96 - 110 mmol/L LAB CHEMISTRY METHOD 08/09/2024 11:08 AM EDT [facility] CO2 31 21 - 32 mmol/L LAB CHEMISTRY METHOD 08/09/2024 11:08 AM EDT [facility] Anion Gap 4 3 - 11 LAB CHEMISTRY METHOD 08/09/2024 11:08 AM [facility] Glucose 78 70 - 100 mg/dL LAB CHEMISTRY METHOD 08/09/2024 11:08 AM [facility] BUN 10 5 - 25 mg/dL LAB CHEMISTRY METHOD 08/09/2024 11:08 AM [facility] Creatinine 1.16(H) 0.50 - 1.10 mg/dL LAB CHEMISTRY METHOD 08/09/2024 11:08 AM [facility] eGFR 49(L) >=60 mL/min/1. 73m2 LAB CHEMISTRY METHOD 08/09/2024 11:08 AM [facility] Comment:Calculation based on the Chronic Kidney Disease Epidemiology Collaboration (CKD-EPI) equation refit without adjustment for race. BUN/Creatinine Ratio 8.6 LAB CHEMISTRY METHOD 08/09/2024 11:08 AM [facility] Calcium 8.1(L) 8.5 - 10.5 mg/dL LAB CHEMISTRY METHOD 08/09/2024 11:08 AM [facility] AST (SGOT) 36 10 - 42 unit/L LAB CHEMISTRY METHOD 08/09/2024 11:08 AM [facility] ALT (SGPT) 37 10 - 60 unit/L LAB CHEMISTRY METHOD 08/09/2024 11:08 AM [facility] Alkaline Phosphatase 74 42 - 121 unit/L LAB CHEMISTRY METHOD 08/09/2024 11:08 AM [facility] Total Protein 5.9(L) 6.0 - 8.0 g/dL LAB CHEMISTRY METHOD 08/09/2024 11:08 AM [facility] Albumin 2.2(L) 3.2 - 5.0 g/dL LAB CHEMISTRY METHOD 08/09/2024 11:08 AM [facility] Total Bilirubin 0.2 0.0 - 1.4 mg/dL LAB CHEMISTRY METHOD 08/09/2024 11:08 AM T [facility] Blood Venous blood specimen / Unknown Venipuncture / Unknown 08/09/2024 7:06 AM EDT 08/09/2024 9:18 AM EDT us Carolina Phillips MD LAB BLOOD ORDERABLES Fin al Result [facility] [address] [place] [address], * (ABNORMAL) Complete blood count (08/09/2024 7:06 AM EDT) WBC 7.7 4.8 - 10.8 K/mcL LAB HEMETOLOGY METHOD 08/09/2024 10:33 AM [facility] RBC 3.20(L) 3.80 - 4.80 M/mcL LAB HEMETOLOGY METHOD 08/09/2024 10:33 AM [facility] Hemoglobin 8.5(L) 11.5 - 16.0 g/dL LAB HEMETOLOGY METHOD 08/09/2024 10:33 AM [facility] Hematocrit 27.9(L) 35.0 - 47.0 % LAB HEMETOLOGY METHOD 08/09/2024 10:33 AM [facility] MCV 88.6 79.0 - 98.0 FL LAB HEMETOLOGY METHOD 08/09/2024 10:33 AM [facility] MCH 27.0 27.0 - 32.0 pcg LAB HEMETOLOGY METHOD 08/09/2024 10:33 AM [facility] MCHC 30.5(L) 32.0 - 37.0 g/dL LAB HEMETOLOGY METHOD 08/09/2024 10:33 AM [facility] RDW 17.2(H) 11.0 - 15.0 % LAB HEMETOLOGY METHOD 08/09/2024 10:33 AM EDT [facility] Platelets 275 130 - 400 K/mcL LAB HEMETOLOGY METHOD 08/09/2024 10:33 AM EDT [facility] MPV 9.6 7.0 - 11.0 FL LAB HEMETOLOGY METHOD 08/09/2024 10:33 AM EDT [facility] NRBC 0.0 <1.0 % LAB HEMETOLOGY METHOD 08/09/2024 10:33 AM EDT [facility] NRBC Absolute 0.00 <0.10 K/mcL LAB HEMETOLOGY METHOD 08/09/2024 10:33 AM EDT [facility] Blood Venous blood specimen / Unknown Venipuncture / Unknown 08/09/2024 7:06 AM EDT 08/09/2024 9:18 AM EDT us Carolina Phillips MD LAB BLOOD ORDERABLES Fin al Result [facility] [address] [place] [address], documented in this encounter Visit Diagnoses Diagnosis Chronic kidney disease, unspecified correction (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 Methemoglobinemia, 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
--- OUTSIDE RECORDS SUMMARY | 2024-10-03 15:19 | XMS_ITS | Encounter Summary ---
Author Organization [facility] Address [address] [place] [phone] Care Team Providers Care Splitting Machine Operator Name Role Phone Prseton Wang DO Primary Care Provider [phone] Encounter Details Date Type Department Care Team (Late st Contact Info) Description 08/26/2024 Lab Requisition [facility] - Main Lab [address] [facility] [place] [address] Carolina Phillips MD [address] [phone] Sepsis, unspecified organism (CMS/HCC V24, CMS/HCC V28); [...] Associated Diagnosis Comments COMPLETE BLOOD COUNT Routine 08/27/2024 5:33 AM EDT Sepsis, unspecified organism (CMS/HCC V24, CMS/HCC V28) Essential (primary) hypertension Urinary tract infection, site not specified COMPREHENSIVE METABOLIC PANEL Routine 08/27/2024 5:33 AM EDT Sepsis, unspecified organism (CMS/HCC V24, CMS/HCC V28) Essential (primary) hypertension Urinary tract infection, site not specified documented in this encounter Results * (ABNORMAL) Comprehensive metabolic panel (08/27/2024 5:33 AM EDT) Sodium 139 133 - 145 mmol/L LAB CHEMISTRY METHOD 08/27/2024 1:22 PM [facility] Potassium 3.8 3.5 - 5.5 mmol/L LAB CHEMISTRY METHOD 08/27/2024 1:22 PM [facility] Chloride 104 96 - 110 mmol/L LAB CHEMISTRY METHOD 08/27/2024 1:22 PM [facility] CO2 27 21 - 32 mmol/L LAB CHEMISTRY METHOD 08/27/2024 1:22 PM [facility] Anion Gap 8 3 - 11 LAB CHEMISTRY METHOD 08/27/2024 1:22 PM [facility] Glucose 118(H) 70 - 100 mg/dL LAB CHEMISTRY METHOD 08/27/2024 1:22 PM [facility] BUN 22 5 - 25 mg/dL LAB CHEMISTRY METHOD 08/27/2024 1:22 PM [facility] Creatinine 1.52(H) 0.50 - 1.10 mg/dL LAB CHEMISTRY METHOD 08/27/2024 1:22 PM [facility] eGFR 35(L) >=60 mL/min/1. 73m2 LAB CHEMISTRY METHOD 08/27/2024 1:22 PM [facility] Comment:Calculation based on the Chronic Kidney Disease Epidemiology Collaboration (CKD-EPI) equation refit without adjustment for race. BUN/Creatinine Ratio 14.5 LAB CHEMISTRY METHOD 08/27/2024 1:22 PM [facility] Calcium 8.6 8.5 - 10.5 mg/dL LAB CHEMISTRY METHOD 08/27/2024 1:22 PM [facility] AST (SGOT) 32 10 - 42 unit/L LAB CHEMISTRY METHOD 08/27/2024 1:22 PM [facility] ALT (SGPT) 50 10 - 60 unit/L LAB CHEMISTRY METHOD 08/27/2024 1:22 PM EDT [facility] Alkaline Phosphatase 83 42 - 121 unit/L LAB CHEMISTRY METHOD 08/27/2024 1:22 PM [facility] Total Protein 6.9 6.0 - 8.0 g/dL LAB CHEMISTRY METHOD 08/27/2024 1:22 PM [facility] Albumin 2.8(L) 3.2 - 5.0 g/dL LAB CHEMISTRY METHOD 08/27/2024 1:22 PM [facility] Total Bilirubin 0.4 0.0 - 1.4 mg/dL LAB CHEMISTRY METHOD 08/27/2024 1:22 PM [facility] Blood Venous blood specimen / Unknown Venipuncture / Unknown 08/27/2024 5:33 AM EDT 08/27/2024 11:39 AM EDT Carolina Phillips MD LAB BLOOD ORDERABLES Fin al Result [facility] [address] [place] [address], [place] [phone] * (ABNORMAL) Complete blood count (08/27/2024 5:33 AM EDT) WBC 7.1 4.8 - 10.8 K/mcL LAB HEMETOLOGY METHOD 08/27/2024 12:29 PM [facility] RBC 3.30(L) 3.80 - 4.80 M/mcL LAB HEMETOLOGY METHOD 08/27/2024 12:29 PM [facility] Hemoglobin 9.0(L) 11.5 - 16.0 g/dL LAB HEMETOLOGY METHOD 08/27/2024 12:29 PM [facility] Hematocrit 30.5(L) 35.0 - 47.0 % LAB HEMETOLOGY METHOD 08/27/2024 12:29 PM T [facility] MCV 91.6 79.0 - 98.0 FL LAB HEMETOLOGY METHOD 08/27/2024 12:29 PM EDT [facility] MCH 27.0 27.0 - 32.0 pcg LAB HEMETOLOGY METHOD 08/27/2024 12:29 PM EDT [facility] MCHC 29.5(L) 32.0 - 37.0 g/dL LAB HEMETOLOGY METHOD 08/27/2024 12:29 PM EDT [facility] RDW 16.8(H) 11.0 - 15.0 % LAB HEMETOLOGY METHOD 08/27/2024 12:29 PM EDT [facility] Platelets 174 130 - 400 K/mcL LAB HEMETOLOGY METHOD 08/27/2024 12:29 PM EDT [facility] MPV 10.3 7.0 - 11.0 FL LAB HEMETOLOGY METHOD 08/27/2024 12:29 PM EDT [facility] NRBC 0.0 <1.0 % LAB HEMETOLOGY METHOD 08/27/2024 12:29 PM EDT [facility] NRBC Absolute 0.00 <0.10 K/mcL LAB HEMETOLOGY METHOD 08/27/2024 12:29 PM EDT [facility] Blood Venous blood specimen / Unknown Venipuncture / Unknown 08/27/2024 5:33 AM EDT 08/27/2024 11:39 AM EDT us Carolina Phillips MD LAB BLOOD ORDERABLES Fin al Result [facility] [address] [place] [address], documented in this encounter Visit Diagnoses Diagnosis Sepsis, unspecified organism (CMS/HCC V24, CMS/HCC V28) Essential (primary) hypertension Unspecified essential hypertension Urinary tract infection, site not specified documented in this encounter Care Teams Splitting Machine Operator Relationship Specialty Start Date End Date Preston Wang DO [address] [place] [phone] PCP - General Internal Medicine 09/05/17 documented as of this encounter
[2024-10-03 15:41] VITALS: BP 163/42; PULSE 45; RESP 12; TEMP 37.3; O2SAT 98
[2024-10-03 15:51] VITALS: PULSE 41; RESP 12; TEMP 37.6; O2SAT 99; BMI 34.7
[2024-10-03] MEDS: iohexoL 350 MG/ML 100 ML INFUS..BTL IV (17:16)
[2024-10-03 17:23] VITALS: BP 160/46; PULSE 41; RESP 17; TEMP 37.1; O2SAT 99
[2024-10-03 18:27] VITALS: BP 156/42; PULSE 39; RESP 17; TEMP 37.2; O2SAT 97
--- NOTE | 2024-10-03 18:39 | ECG_ITS ---
Test Reason : BRADYCARDIA Blood Pressure : */* mmHG Vent. Rate : 40 BPM Atrial Rate : 40 BPM P-R Int : 346 ms QRS Dur : 132 ms QT Int : 568 ms P-R-T Axes : 97 122 56 degrees QTcB Int : 462 ms Complete heart block Right bundle branch block Left posterior fascicular block Bifascicular block Abnormal ECG When compared with ECG of 31-Jul-2024 09:33, Significant changes have occurred Referred By: Nancy Thompson Electronically Signed By: SUSSY BOSS
[2024-10-03 19:16] VITALS: BP 130/40; PULSE 40; RESP 13; TEMP 36.9; O2SAT 99
[2024-10-03 21:17] LABS: Reflex Lactate? Lactic Acid Added
--- NOTE | 2024-10-03 21:21 | PHA.MEDREC ---
Addendum entered by Grace Holley [facility] 10/03/24 21:36: MED REC REVIEWED BY [facility] Original Note: Pharmacy Consult ? Medication Reconciliation Pharmacy has completed the medication reconciliation. Spoke with pt and she confirmed her medications. Pt confirmed she is taking Furosemide 40mg once daily and Levothyroxine 112mcg once daily; claims show Furosemide 40mf LF 03/09 for 90 and Levothyroxine 112mcg was LF 03/16 for 90, I called pt pharmacy and they confirmed the pt last got Furosemide 40mg once daily and Levothyroxine 112mg 1 tab MOTUTHFRSA and 2 tabs SUWE (pt confirmed she has only taken 1 tab daily and never 2 on certain days.
--- NOTE | 2024-10-03 21:29 | PM.IMHP ---
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 Patient initially had an episode of bright red blood per rectum . Followed by she has a bowel movement with no blood in it. Following the bowel movement her abdominal cramping improved. Denies any abdominal pain at the time of my interview. Patient denies any chest pain or palpitations. Denies any urinary symptoms. Review of all other systems is negative except mentioned above ER course: Per ER team, patient's abdominal exam was benign; CT scan showed left-sided colonic thickening concerning for ischemia; patient's lactate was slightly elevated. H&H stable. ER team discussed with Dr. Fran Abarca-vascular surgeon at [facility] who reviewed the CT scan and mentioned that appears to be ischemic colitis but based on current presentation no acute surgical intervention needed and no need for transfer at this time. Recommended admission for medical management including IV fluids and bowel rest. [facility] Medical History UTI (urinary tract infection) Urinary tract infection due to ESBL Klebsiella Anemia Mechanical complication of urethral stent Blood per rectum Dysuria Abscess Hospital discharge follow-up Generalized abdominal pain Encounter for wheelchair assessment Diverticular disease Major depressive disorder Heel spur Chronic low back pain Uterine cancer Hyperthyroidism Weakness of both lower extremities Hydroureteronephrosis Wound infection Open wound of back, complicated Cellulitis Frequency of urination Vaginal burning Vaginal itching PMB (postmenopausal bleeding) Cirrhosis of liver Does mobilize using walker PONV (postoperative nausea and vomiting) Left foot drop Fatty liver Fibromyalgia Neuropathy RBBB Cholelithiasis Staghorn calculus Renal calculus, bilateral Renal calyceal dilation determined by ultrasound Diabetes mellitus, type II Ganglion cyst Plantar fasciitis Anxiety OA (osteoarthritis) Obstructive airway disease Hypercholesterolemia Low back pain Sciatica Hypothyroidism HTN (hypertension) Primary osteoarthritis of right knee Retained ureteral stent Renal stones Staghorn calculus Perirectal abscess Family History Father Alcohol dependence Mother CHF (congestive heart failure) Cancer of breast Mother No problems noted. Other Alcoholic cirrhosis Substance use disorder Surgical History History of colostomy reversal (02/20/24) History of colectomy (~10/06/23) Status post cystoscopy with ureteral stent placement History of lumbar discectomy History of lumpectomy of both breasts History of cystoscopy History of lithotripsy Hx of colonoscopy (~04/28/23) History of surgery Social History Household Members: Spouse Housing: House Are you a primary geriatric personal care aide to a significant other at home: No Do you presently have visiting nurse or other home services: No 75 years or older and lives alone: No Alcohol intake: current Alcohol intake frequency: does not drink Alcohol type: hard liquor Comment: wheelchair for long distances Patient Tobacco Use Status: Former Tobacco user Tobacco use type: Cigarette Years Smoked: 27 e-Cigarette/Vaping Use: Never Used Second Hand Smoke Exposure: No Advance Directives Date on File: 04/06/21 service: No Current occupational status: disabled Cognitive needs: Yes (wheelchair) Hearing needs: No Vision needs: Yes (Glasses) Meds Allergies Allergy/AdvReac Type Severity Reaction Status Date / Time chlorpheniramine (From Allergy Severe HALLUCINATI Verified 10/03/24 15:53 TUSSIONEX) ONS ciprofloxacin (From CIPRO) Allergy Severe ANAPHYLAXIS Verified 10/03/24 15:53 escitalopram (ESCITALOPRAM) Allergy Severe DISSOCIATIVE Verified 10/03/24 15:53 REACTION fluoxetine (FLUOXETINE) Allergy Severe DISSOCIATIVE Verified 10/03/24 15:53 REACTION hydrocodone (From TUSSIONEX) Allergy Severe HALLUCINATI Verified 10/03/24 15:53 ONS ibuprofen (IBUPROFEN) Allergy Severe THROAT Verified 10/03/24 15:53 SWELLING Sulfa (Sulfonamide Allergy Severe DYSPNEA Verified 10/03/24 15:53 Antibiotics) (SULFA (SULFONAMIDE ANTIBIOTICS)) clarithromycin (From BIAXIN) Allergy Intermediate ABD.PAIN Verified 10/03/24 15:53 duloxetine (DULOXETINE) Allergy Intermediate FACIAL Verified 10/03/24 15:53 NUMBNESS erythromycin base Allergy Intermediate RASH Verified 10/03/24 15:53 (ERYTHROMYCIN BASE) Penicillins (PENICILLINS) Allergy Intermediate RASH Verified 10/03/24 11:23 tetracycline (TETRACYCLINE) Allergy Intermediate DIARRHEA Verified 10/03/24 11:23 codeine (CODEINE) Allergy Unknown TINNITIS Verified 10/03/24 11:23 guaifenesin Allergy Unknown Unknown Verified 10/03/24 11:23 levofloxacin (From Levaquin) Allergy Unknown Unknown Verified 10/03/24 11:23 pregabalin Allergy Unknown Unknown Verified 10/03/24 11:23 Active Medications: Current Medications Acetaminophen (Acetaminophen 325 Mg Tablet) 650 mg PO Q6H PRN PRN Reason: Pain, Mild 1-3,fever,headache Calcium Carbonate (Calcium Carbonate 750 Mg Tab.Chew) 750 mg PO Q4H PRN PRN Reason: Heartburn Hydromorphone HCl (Hydromorphone Hcl 0.5 Mg/0.5 Ml Syringe) 0.5 mg IVPUSH Q4H PRN; Protocol PRN Reason: Pain, Severe (Pain Scale 7-10) Dextrose/Sodium Chloride (D51/2ns) 1,000 mls @ 100 mls/hr IVCONT .Q10H NOHELIA Magnesium Hydroxide (Milk Of Magnesia 30 Ml Oral.Susp) 30 ml PO DAILY PRN PRN Reason: Constipation Melatonin (Melatonin 3 Mg Tablet) 6 mg PO BEDTIME PRN PRN Reason: Insomnia Sodium Chloride (0.9 % Sodium Chloride Flush 3 Ml Syringe) 3 ml IVFLUSH QSHIFT NOHELIA Home Medications ?Medication ?Instructions ?Recorded ?Confirmed ?Last Taken ?Type atorvastatin 10 mg tablet 10 mg PO DAILY@1500 04/05/21 10/03/24 10/03/24 History metformin 500 mg tablet,extended 500 mg PO DAILY@1700 04/06/21 10/03/24 10/03/24 History release 24 hr acetaminophen 500 mg tablet 1,000 mg PO Q6H PRN Pain 10/04/23 10/03/24 10/03/24 History levothyroxine 112 mcg tablet 112 mcg PO DAILY@0600 05/31/24 10/03/24 10/03/24 History ascorbic acid (vitamin C) 1,000 mg 1,000 mg PO DAILY@1500 10/03/24 10/03/24 10/03/24 History tablet cholecalciferol (vitamin D3) 25 50 mcg PO DAILY@1500 10/03/24 10/03/24 10/03/24 History mcg (1,000 unit) capsule ferrous sulfate 325 mg (65 mg 325 mg PO DAILY@1500 anemia 10/03/24 10/03/24 10/03/24 History iron) tablet pyridoxine (vitamin B6) 50 mg 100 mg PO DAILY@1500 10/03/24 10/03/24 10/03/24 History tablet tramadol 50 mg tablet 50 mg PO DAILY@1500 PRN Pain 10/03/24 10/03/24 Unknown History trimethoprim 100 mg tablet 100 mg PO DAILY@1500 10/03/24 10/03/24 10/03/24 History Physical Exam Vital Signs and Narrative: Vital Signs: Last Vital Signs Temp 98.4 F 10/03/24 19:16 Pulse 40 L 10/03/24 19:16 Resp 13 10/03/24 19:16 BP 130/40 L 10/03/24 19:16 Pulse Ox 99 10/03/24 19:16 O2 Del Method Room Air 10/03/24 19:16 BMI result Body Mass Index 34.7 Gen: Appears be in no acute distress HEENT: NCAT, Moist mucosa. Pulmonary: Vesicular breath sounds, fair air entry CVS: Normal S1-S2 Abdomen: BS+, Soft, Nontender Extremities: Warm well perfused Neuro: Alert and awake. Results Labs 10/03/24 11:58 10/04/24 06:13 Labs: Laboratory Results - last 24 hr 10/03/24 10/03/24 11:58 19:10 MCV 88.4 MCH 27.9 MCHC 31.6 RDW 17.1 H Plt Count 224 MPV 9.2 L Immature Gran % (Auto) 1.0 H Neut % (Auto) 69.4 Lymph % (Auto) 20.8 [place] % (Auto) 7.4 Eos % (Auto) 1.1 Baso % (Auto) 0.3 Lymph # (Auto) 2.2 [place] # (Auto) 0.8 Eos # (Auto) 0.1 Baso # (Auto) 0.0 Abs Immat Gran (auto) 0.10 H Absolute Neuts (auto) 7.3 Absolute Nucleated RBC 0.000 Nucleated RBC % (auto) 0.0 Anion Gap 13 Estim Creat Clear Calc 22.2 Estimated GFR 22 Random Glucose 119 H Lactic Acid 2.4 H* Calcium 9.4 Total Bilirubin 0.6 Direct Bilirubin 0.2 AST 48 H ALT 29 Alkaline Phosphatase 70 Total Protein 8.2 H Albumin 3.9 Lipase 12 Assessment and Plan (1) Abdominal pain: Qualifiers: Abdominal location: upper abdomen, unspecified Qualified Code(s): R10.10 - Upper abdominal pain, unspecified Status: Resolved Plan 79y female with a past medical history of HTN, HLD, dm, history of retroperitoneal abscess, history of right ureteric stent, history of ESBL UTI, renal calculi, CKD, 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 Noted to have findings concerning for colitis. Left-sided colonic wall thickening: Ischemic colitis: BRBPR: H and H currently stable. Patient abdominal exam is benign. ER team spoke to Dr. Selam giang-vascular surgeon at [facility] who suggested no acute intervention needed currently, no need for transfer at this time, suggested supportive care with bowel rest and IV fluids for now. Will consult General surgery Empirically covered with ceftriaxone and Flagyl GI consult follow up in a.m. for possible colonoscopy/biopsies-to rule out neoplasm. Serial H&H FELICITA on CKD: Baseline creatinine around 1.5 Creatinine on presentation is 2.1 Likely prerenal Patient on gentle IV fluids. Avoid nephrotoxins Diabetes: Insulin sliding scale Hypertension: Blood pressure normal side hold home antihypertensives for now Bradycardia: Patient asymptomatic. Will monitor. Telemetry. DVT prophylaxis: SCD boots Code status: Full code Quality Stroke Does the patient have a stroke diagnosis?: No VTE Prior VTE?: No VTE Risk Level:: Medical - moderate - high VTE Device Contraindication: N/A - Device Ordered VTE Drug Contraindication: Treatment Not Indicated
[2024-10-03 22:59] LABS: ~Lactic Acid-LAB USE ONLY 1.4 mmol/L (0.5-2.0)
--- NOTE | 2024-10-03 23:17 | PC.NURSE ---
RN outreached hospitalist team to inquire as to whether or not they wanted blood cultures to be obtained on this patient as they have not yet been collected but she has antibiotics ordered. RN to hold the ABX administration until clarification received.
[2024-10-04 00:58] VITALS: BP 132/42; PULSE 42; RESP 17; TEMP 36.6; O2SAT 99
[2024-10-04 01:34] VITALS: BMI 35.5
[2024-10-04] MEDS: metroNIDAZOLE/NS 500 MG/100 ML PIGGYBACK 100 MG IV ×3 (01:42→13:49)
[2024-10-04] MEDS: 0.9 % Sodium Chloride Flush 3 ML SYRINGE IVFLUSH ×3 (01:42→15:05)
[2024-10-04] MEDS: Dextrose 5 % and 0.45 % NaCl 1,000 ML 100 ML IVCONT ×3 (01:45→15:11)
[2024-10-04 03:23] VITALS: BP 157/63; PULSE 54; RESP 18; TEMP 36.8; O2SAT 99
[2024-10-04 06:59] LABS: Glucose, Whole Blood 96 mg/dL (60-115)
[2024-10-04 07:14] VITALS: BP 157/67; PULSE 42; RESP 20; TEMP 36.3; O2SAT 97
[2024-10-04 07:14] LABS: Alanine Aminotransferase 23 U/L (0-31); Albumin Level 3.3 g/dL (3.5-5.0); Alkaline Phosphatase 58 U/L (39-117); Anion Gap 13 (12-20); Aspartate Amino Transferase 34 U/L (5-31); Blood Urea Nitrogen 23 mg/dL (9-16); Carbon Dioxide 23 mmol/L (22-29); Chloride 107 mmol/L (96-108); Creatinine Clr Calc Pharmacy 24.5; Estimated Glomerular Filt Rate 24; Potassium 4.1 mmol/L (3.3-5.1); Sodium 139 mmol/L (135-145); Total Protein 6.9 g/dL (6.5-8.0)
[2024-10-04 07:21] LABS: Calcium 8.5 mg/dL (8.4-10.2)
--- NOTE | 2024-10-04 07:28 | ECG_ITS ---
Test Reason : rhythm ck Blood Pressure : */* mmHG Vent. Rate : 36 BPM Atrial Rate : 36 BPM P-R Int : 232 ms QRS Dur : 114 ms QT Int : 556 ms P-R-T Axes : 84 43 83 degrees QTcB Int : 429 ms Complete heart block Incomplete right bundle branch block Abnormal ECG When compared with ECG of 03-Oct-2024 19:13, No significant changes seen Referred By: Reji Caceres Electronically Signed By: SUSSY BOSS
--- NOTE | 2024-10-04 08:00 | PM.CNGS ---
History of Present Illness Consult details Consult date: 10/04/24 <Magalys Olsen PA-C - Last Filed: 10/04/24 10:21> Narrative: 79 year old female with a past medical history of HTN, HLD, diabetes mellitus, history of retroperitoneal abscess, history of right ureteric stent, history of ESBL UTI, renal calculi who presented to the ED after a bloody bowel movement. She reports she developed upper abdominal/left sided crampy abdominal pain yesterday and then had a bloody bowel movement. She had another one following which was normal. Due to the blood in her stool, she presented to the ED for evaluation. Work up included CBC, BMP, LFTs which was significant for an FELICITA. She had a lactic acidosis. H/H was at baseline. CT scan abd/pelvis was obtained which showed mild thickening of descending and sigmoid colon with surrounding fat stranding suggestive of colitis. She was given IVF with resolution of the lactic acidosis. She was admitted to the hospitalist service for presumed ischemic colitis. Patient is well known to the surgical service. She underwent jacquie procedure for diverticular stricture in 09/30 followed by colostomy closure in 03/03. This morning, she feels improved. She has had no further bloody BMs. She has some mild crampy abd pain but better overall. She does not feel hungry. She denies fevers, chills, diarrhea, sick contacts, recent travel. <Magalys Olsen PA-C - Last Filed: 10/04/24 10:21> Review of Systems Constitutional: Constitutional: Denies chills and Denies fever(s) <KIKA Mari Last Filed: 10/04/24 10:21> Cardiovascular: Cardiovascular: Denies chest pain and Denies dyspnea <KIKA Mari Last Filed: 10/04/24 10:21> Respiratory: Respiratory: Denies dyspnea <KIKA Mari Last Filed: 10/04/24 10:21> Gastrointestinal: Gastrointestinal: Reports as per HPI <KIKA Mari Last Filed: 10/04/24 10:21> Integumentary/Breasts: Skin/Breast: Denies rash and Denies jaundice <Magalys Olsen PA-C - Last Filed: 10/04/24 10:21> [facility] Past Medical History Medical History: Medical History UTI (urinary tract infection) Urinary tract infection due to ESBL Klebsiella Anemia Mechanical complication of urethral stent Blood per rectum Dysuria Abscess Hospital discharge follow-up Generalized abdominal pain Encounter for wheelchair assessment Diverticular disease Major depressive disorder Heel spur Chronic low back pain Uterine cancer Hyperthyroidism Weakness of both lower extremities Hydroureteronephrosis Wound infection Open wound of back, complicated Cellulitis Frequency of urination Vaginal burning Vaginal itching PMB (postmenopausal bleeding) Cirrhosis of liver Does mobilize using walker PONV (postoperative nausea and vomiting) Left foot drop Fatty liver Fibromyalgia Neuropathy RBBB Cholelithiasis Staghorn calculus Renal calculus, bilateral Renal calyceal dilation determined by ultrasound Diabetes mellitus, type II Ganglion cyst Plantar fasciitis Anxiety OA (osteoarthritis) Obstructive airway disease Hypercholesterolemia Low back pain Sciatica Hypothyroidism HTN (hypertension) Primary osteoarthritis of right knee Retained ureteral stent Renal stones Staghorn calculus Perirectal abscess <Magalys Olsen PA-C - Last Filed: 10/04/24 10:21> Family History Family History: Family History Father Alcohol dependence Mother CHF (congestive heart failure) Cancer of breast Mother No problems noted. Other Alcoholic cirrhosis Substance use disorder <Magalys Olsen PA-C - Last Filed: 10/04/24 10:21> Surgical History Surgical History: Surgical History History of colostomy reversal (02/20/24) History of colectomy (~10/06/23) Status post cystoscopy with ureteral stent placement History of lumbar discectomy History of lumpectomy of both breasts History of cystoscopy History of lithotripsy Hx of colonoscopy (~04/28/23) History of surgery <Magalys Olsen PA-C - Last Filed: 10/04/24 10:21> Social History Social History: Social History Household Members: Spouse Housing: House Are you a primary animal caretaker to a significant other at home: No Do you presently have visiting nurse or other home services: No Alcohol intake: current Alcohol intake frequency: does not drink Alcohol type: hard liquor Comment: wheelchair for long distances Patient Tobacco Use Status: Former Tobacco user Tobacco use type: Cigarette Years Smoked: 27 Smoked in Last 30 Days: No e-Cigarette/Vaping Use: Never Used Second Hand Smoke Exposure: No Use of substances other than those prescribed or required for medical reasons: No Currently Displaying Signs/Symptoms of Drug Intoxication Withdrawal: No Have you been hit, kicked, punched, or otherwise hurt by someone within the past year? If so, by whom?: No Do you feel safe in your current relationship?: Yes Are you made to feel afraid or neglected: No Advance Directives: Yes Advance Directives on File: Yes Advance Directives Date on File: 04/06/21 Do you have a plan to hurt others: No Plan Recently lost weight without trying: No Patient : No service: No Current occupational status: disabled Cognitive needs: Yes (wheelchair) Hearing needs: No Vision needs: Yes (Glasses) <Magalys Olsen PA-C - Last Filed: 10/04/24 10:21> Meds Allergies/Adverse reactions: Allergies Allergy/AdvReac Type Severity Reaction Status Date / Time chlorpheniramine (From Allergy Severe HALLUCINATI Verified 10/03/24 15:53 TUSSIONEX) ONS ciprofloxacin (From CIPRO) Allergy Severe ANAPHYLAXIS Verified 10/03/24 15:53 escitalopram (ESCITALOPRAM) Allergy Severe DISSOCIATIVE Verified 10/03/24 15:53 REACTION fluoxetine (FLUOXETINE) Allergy Severe DISSOCIATIVE Verified 10/03/24 15:53 REACTION hydrocodone (From TUSSIONEX) Allergy Severe HALLUCINATI Verified 10/03/24 15:53 ONS ibuprofen (IBUPROFEN) Allergy Severe THROAT Verified 10/03/24 15:53 SWELLING Sulfa (Sulfonamide Allergy Severe DYSPNEA Verified 10/03/24 15:53 Antibiotics) (SULFA (SULFONAMIDE ANTIBIOTICS)) clarithromycin (From BIAXIN) Allergy Intermediate ABD.PAIN Verified 10/03/24 15:53 duloxetine (DULOXETINE) Allergy Intermediate FACIAL Verified 10/03/24 15:53 NUMBNESS erythromycin base Allergy Intermediate RASH Verified 10/03/24 15:53 (ERYTHROMYCIN BASE) Penicillins (PENICILLINS) Allergy Intermediate RASH Verified 10/03/24 11:23 tetracycline (TETRACYCLINE) Allergy Intermediate DIARRHEA Verified 10/03/24 11:23 codeine (CODEINE) Allergy Unknown TINNITIS Verified 10/03/24 11:23 guaifenesin Allergy Unknown Unknown Verified 10/03/24 11:23 levofloxacin (From Levaquin) Allergy Unknown Unknown Verified 10/03/24 11:23 pregabalin Allergy Unknown Unknown Verified 10/03/24 11:23 <Magalys Olsen PA-C - Last Filed: 10/04/24 10:21> Active Medications: Current Medications Acetaminophen (Acetaminophen 325 Mg Tablet) 650 mg PO Q6H PRN PRN Reason: Pain, Mild 1-3,fever,headache Ascorbic Acid (Ascorbic Acid 500 Mg Tablet) 1,000 mg PO DAILY@1500 NOHELIA Atorvastatin Calcium (Atorvastatin Calcium 10 Mg Tablet) 10 mg PO DAILY@1500 NOHELIA Calcium Carbonate (Calcium Carbonate 750 Mg Tab.Chew) 750 mg PO Q4H PRN PRN Reason: Heartburn Ceftriaxone Sodium (Ceftriaxone Sodium 1 Gm Vial) 1 gm IVPUSH Q24H [facility] Last Admin: 10/04/24 01:42 Dose: 1 gm Dextrose (Dextrose 50 % 25 Gm/50 Ml Syringe) 25 gm IVPUSH Q15M PRN; Protocol PRN Reason: per Hypoglycemia Standing Ord. Glucose (Glucose Gel 15 Gm Gel..Gram.) 15 gm PO Q15M PRN; Protocol PRN Reason: per Hypoglycemia Standing Ord. Hydromorphone HCl (Hydromorphone Hcl 0.5 Mg/0.5 Ml Syringe) 0.5 mg IVPUSH Q4H PRN; Protocol PRN Reason: Pain, Severe (Pain Scale 7-10) Dextrose/Sodium Chloride (D51/2ns) 1,000 mls @ 100 mls/hr IVCONT .Q10H [facility] Last Admin: 10/04/24 01:45 Dose: 100 mls/hr Metronidazole (Flagyl) 500 mg in 100 mls @ 100 mls/hr IV Q8H [facility] Last Infusion: 10/04/24 07:35 Dose: Infused Insulin Human Lispro (Insulin Lispro 100 Unit/Ml 3 Ml Vial) 0 unit SUBCUT QIDACHS [facility]; Protocol Levothyroxine Sodium (Levothyroxine Sodium 112 Mcg Tablet) 112 mcg PO DAILY@0600 [facility] Last Admin: 10/04/24 06:09 Dose: 112 mcg Magnesium Hydroxide (Milk Of Magnesia 30 Ml Oral.Susp) 30 ml PO DAILY PRN PRN Reason: Constipation Melatonin (Melatonin 3 Mg Tablet) 6 mg PO BEDTIME PRN PRN Reason: Insomnia Non-Formulary Medication (Trimethoprim) 100 mg PO DAILY@1500 NOHELIA Pyridoxine HCl (Pyridoxine Hcl (Vitamin B6) 50 Mg Tablet) 100 mg PO DAILY@1500 [facility] Sodium Chloride (0.9 % Sodium Chloride Flush 3 Ml Syringe) 3 ml IVFLUSH QSHIFT [facility] Last Admin: 10/04/24 01:42 Dose: 3 ml Vitamin D (Cholecalciferol (Vitamin D3) 25 Mcg Tablet) 50 mcg PO DAILY@1500 [facility] <Magalys Olsen PA-C - Last Filed: 10/04/24 10:21> Home medications: Home Medications ?Medication ?Instructions ?Recorded ?Confirmed ?Last Taken ?Type atorvastatin 10 mg tablet 10 mg PO DAILY@149904/05/21 10/03/24 10/03/24 History metformin 500 mg tablet,extended 500 mg PO DAILY@1700 04/06/21 10/03/24 10/03/24 History release 24 hr acetaminophen 500 mg tablet 1,000 mg PO Q6H PRN Pain 10/04/23 10/03/24 10/03/24 History levothyroxine 112 mcg tablet 112 mcg PO DAILY@0605/31/24 10/03/24 10/03/24 History ascorbic acid (vitamin C) 1,000 mg 1,000 mg PO DAILY@149910/03/24 10/03/24 10/03/24 History tablet cholecalciferol (vitamin D3) 25 50 mcg PO DAILY@149910/03/24 10/03/24 10/03/24 History mcg (1,000 unit) capsule ferrous sulfate 325 mg (65 mg 325 mg PO DAILY@1500 anemia 10/03/24 10/03/24 10/03/24 History iron) tablet pyridoxine (vitamin B6) 50 mg 100 mg PO DAILY@149910/03/24 10/03/24 10/03/24 History tablet tramadol 50 mg tablet 50 mg PO DAILY@1500 PRN Pain 10/03/24 10/03/24 Unknown History trimethoprim 100 mg tablet 100 mg PO DAILY@149910/03/24 10/03/24 10/03/24 History <KIKA Mari Last Filed: 10/04/24 10:21> Physical Exam Vital Signs: Vital Signs: Last Vital Signs Temp 97.3 F 10/04/24 07:14 Pulse 42 L 10/04/24 07:14 Resp 20 10/04/24 07:14 BP 157/67 H 10/04/24 07:14 Pulse Ox 97 10/04/24 07:14 O2 Del Method Room Air 10/04/24 07:14 BMI result Body Mass Index 35.5 <aMgalys Olsen PA-C - Last Filed: 10/04/24 10:21> Const: General: comfortable, no acute distress and alert <KIKA Mari Last Filed: 10/04/24 10:21> Orientation/consciousness: patient oriented x3 <KIKA Mari Last Filed: 10/04/24 10:21> Resp: Effort & Inspection: normal respiratory effort <Magalys Olsen PA-C - Last Filed: 10/04/24 10:21> GI: Other: abd soft, mild tenderness on left side of abdomen more increased in LUQ/epigastric region, no rebound nondistended large midline hernia which is soft, reducible <KIKA Mari Last Filed: 10/04/24 10:21> Inspection: Yes scar (multiple scars, midline and left mid abdomen) <Magalys Olsen PA-C - Last Filed: 10/04/24 10:21> Palpation (GI): no guarding <Magalys Olsen PA-C - Last Filed: 10/04/24 10:21> Percussion: Yes normal to percussion <KIKA Mari Last Filed: 10/04/24 10:21> Skin: General skin exam: no rashes or lesions noted <KIKA Mari Last Filed: 10/04/24 10:21> Neuro: General: patient oriented x3 <KIKA Mari Last Filed: 10/04/24 10:21> Results Labs Result diagrams: 10/03/24 11:58 10/04/24 06:13 <Magalys Olsen PA-C - Last Filed: 10/04/24 10:21> Labs: Abnormal lab results 10/03/24 10/03/24 10/04/24 Range/Units 11:58 19:10 06:13 RBC 4.05 L (4.20-5.50) X10*6/uL Hgb 11.3 L (12.0-16.0) g/dl Hct 35.8 L (37.0-47.0) % RDW 17.1 H (11.0-16.0) % MPV 9.2 L (9.4-12.3) fL Immature Gran % (Auto) 1.0 H (0.0-0.4) % Abs Immat Gran (auto) 0.10 H (0.00-0.03) X10*3/uL BUN 25 H 23 H (9-16) mg/dL Creatinine 2.18 H 1.98 H (0.5-1.4) mg/dL Random Glucose 119 H 119 H (60-115) mg/dL Lactic Acid 2.4 H* (0.5-2.0) mmol/L AST 48 H 34 H (5-31) U/L Total Protein 8.2 H (6.5-8.0) g/dL Albumin 3.3 L (3.5-5.0) g/dL Short CBC 10/03/24 Range/Units 11:58 WBC 10.5 (4.8-10.8) X10*3/uL Hgb 11.3 L (12.0-16.0) g/dl Hct 35.8 L (37.0-47.0) % Plt Count 224 (160-400) X10*3/uL BMP 10/03/24 10/04/24 11:58 06:13 Sodium 137 139 Potassium 4.6 D 4.1 Chloride 105 107 Carbon Dioxide 24 23 BUN 25 H 23 H Creatinine 2.18 H 1.98 H Calcium 9.4 8.5 D Liver Function 10/03/24 10/04/24 Range/Units 11:58 06:13 Total Bilirubin 0.6 0.3 (0.0-1.0) mg/dL Direct Bilirubin 0.2 (0.0-0.5) mg/dL AST 48 H 34 H (5-31) U/L ALT 29 23 (0-31) U/L Alkaline Phosphatase 70 58 (39-117) U/L Albumin 3.9 3.3 L (3.5-5.0) g/dL All other labs normal. <Magalys Olsen PA-C - Last Filed: 10/04/24 10:21> Imaging Abdomen CT scan report/results: report reviewed and image reviewed <KIKA Mari Last Filed: 10/04/24 10:21> Additional studies: labs reviewed <KIKA Mari Last Filed: 10/04/24 10:21> Assessment and Plan (1) Ischemic colitis: Status: Acute <KIKA Mari Last Filed: 10/04/24 10:21> 79 year old female with a past medical history of HTN, HLD, diabetes mellitus, history of retroperitoneal abscess, history of right ureteric stent, history of ESBL UTI, renal calculi who presented with abdominal cramping and bloody bowel movement with CT suggestive of colitis (sigmoid fat stranding actually improved from CT scan done 08/01). She was admitted to medicine for presumed ischemic colitis. She is clinically appearing well with an overall benign abd exam. She has had no further bloody BMs and H/H is stable. No surgical intervention currently necessary. Would recommend continuing conservative measures for now. Will continue to follow. <Magalys Olsen PA-C - Last Filed: 10/04/24 10:21> 79 year old female with a past medical history of HTN, HLD, diabetes mellitus, history of retroperitoneal abscess, history of right ureteric stent, history of ESBL UTI, renal calculi who presented with abdominal cramping and bloody bowel movement with CT suggestive of colitis (sigmoid fat stranding actually improved from CT scan done 08/01). She was admitted to medicine for presumed ischemic colitis. She is clinically appearing well with an overall benign abd exam. She has had no further bloody BMs and H/H is stable. No surgical intervention currently necessary. Would recommend continuing conservative measures for now. Will continue to follow. 79-year-old female patient well known to me with a complicated surgical history and a prior history of sigmoid stricture status post Jacquie procedure followed by closure of colostomy. Patient presents with bloody bowel movement and abdominal pain yesterday. This morning she reports feeling well with minimal to no abdominal pain. A CT abdomen and pelvis revealed evidence of colitis just past the splenic flexure. The possibility of ischemia, infection, or inflammation was raised. Review of the CT reveals mild thickening of the colon at the affected location but no pneumatosis or free air. As this has in a watershed area intestinal ischemia is a possibility possibly due to a low-flow state. Supportive care is recommended and no surgical intervention is recommended. She does have a large based incisional hernia in the midline which is best observed at this point. <Marino Jimenez MD - Last Filed: 10/04/24 08:30> Procedures Date of Service Date of Service: 10/04/24 <Magalys Olsen PA-C - Last Filed: 10/04/24 10:21> 10/04/24 <Marino Jimenez MD - Last Filed: 10/04/24 08:30>
--- NOTE | 2024-10-04 08:44 | PM.CNCAR ---
History of Present Illness History of Present Illness Date of Service: 10/04/24 Chief complaint: Colitis Narrative: This is a cardiology consultation regarding heart block. Patient has been admitted to the hospital with a question of ischemic colitis. Per notes, she came in for abdominal cramping/nausea and diarrhea and initially had bright red blood per rectum. Subsequently, she underwent imaging and there was concern for ischemia. It seems that [facility] vascular surgery was called but recommendation was conservative care and she was admitted here. Telemetry/EKGs effect concerning for complete heart block and hence we are consulted. Patient denies any previous cardiac history. No known coronary disease or myocardial infarction or cardiomyopathy. She also denies any symptoms like dizziness or presyncope. No clear-cut anginal-type chest pains. Currently, she is lying in bed comfortably. Review of Systems Review of Systems: Yes all other systems are reviewed and are negative Constitutional: Constitutional: Reports as per HPI and Reports no additional constitutional complaints Eyes: Eyes: Reports as per HPI and Denies no additional eye complaints ENT: Denies system reviewed and no additional complaints, except as documented and Reports as per HPI Cardiovascular: Cardiovascular: Reports as per HPI, Reports no additional cardiovascular complaints, Denies acrocyanosis, Denies cool extremities, Denies chest pain, Denies leg edema, Denies lightheadedness, Denies palpitations and Denies dyspnea Respiratory: Respiratory: Reports as per HPI, Denies no additional respiratory complaints and Denies dyspnea Gastrointestinal: Gastrointestinal: Reports as per HPI and Denies no additional gastrointestinal complaints Genitourinary: Genitourinary: Reports as per HPI Musculoskeletal: Musculoskeletal: Reports no additional musculoskeletal complaints and Reports as per HPI Integumentary/Breasts: Skin/Breast: Reports system reviewed and no additional complaints, except as docu Neurologic: Reports system reviewed and no additional complaints, except as documented and Reports as per HPI Psychiatric: Psychiatric: Reports no additional psychiatric complaints and Reports as per HPI Endocrine: Endocrine: Reports no additional endocrine complaints, Reports as per HPI and Denies palpitations Hematologic/Lymphatic: Hematologic/Lymphatic: Reports no additional hematologic/lymphatic complaints and Reports as per HPI Allergic/Immunologic: Allergic/Immunologic: Reports no additional allergic/immunologic complaints and Reports as per HPI [facility] Past Medical History Medical History UTI (urinary tract infection) Urinary tract infection due to ESBL Klebsiella Anemia Mechanical complication of urethral stent Blood per rectum Dysuria Abscess Hospital discharge follow-up Generalized abdominal pain Encounter for wheelchair assessment Diverticular disease Major depressive disorder Heel spur Chronic low back pain Uterine cancer Hyperthyroidism Weakness of both lower extremities Hydroureteronephrosis Wound infection Open wound of back, complicated Cellulitis Frequency of urination Vaginal burning Vaginal itching PMB (postmenopausal bleeding) Cirrhosis of liver Does mobilize using walker PONV (postoperative nausea and vomiting) Left foot drop Fatty liver Fibromyalgia Neuropathy RBBB Cholelithiasis Staghorn calculus Renal calculus, bilateral Renal calyceal dilation determined by ultrasound Diabetes mellitus, type II Ganglion cyst Plantar fasciitis Anxiety OA (osteoarthritis) Obstructive airway disease Hypercholesterolemia Low back pain Sciatica Hypothyroidism HTN (hypertension) Primary osteoarthritis of right knee Retained ureteral stent Renal stones Staghorn calculus Perirectal abscess Family History Family History Father Alcohol dependence Mother CHF (congestive heart failure) Cancer of breast Mother No problems noted. Other Alcoholic cirrhosis Substance use disorder Surgical History Surgical History History of colostomy reversal (02/20/24) History of colectomy (~10/06/23) Status post cystoscopy with ureteral stent placement History of lumbar discectomy History of lumpectomy of both breasts History of cystoscopy History of lithotripsy Hx of colonoscopy (~04/28/23) History of surgery Social History Social History Household Members: Spouse Housing: House Are you a primary child care team lead to a significant other at home: No Do you presently have visiting nurse or other home services: No Alcohol intake: current Alcohol intake frequency: does not drink Alcohol type: hard liquor Comment: wheelchair for long distances Patient Tobacco Use Status: Former Tobacco user Tobacco use type: Cigarette Years Smoked: 27 Smoked in Last 30 Days: No e-Cigarette/Vaping Use: Never Used Second Hand Smoke Exposure: No Use of substances other than those prescribed or required for medical reasons: No Currently Displaying Signs/Symptoms of Drug Intoxication Withdrawal: No Have you been hit, kicked, punched, or otherwise hurt by someone within the past year? If so, by whom?: No Do you feel safe in your current relationship?: Yes Are you made to feel afraid or neglected: No Advance Directives: Yes Advance Directives on File: Yes Advance Directives Date on File: 04/06/21 Do you have a plan to hurt others: No Plan Recently lost weight without trying: No Patient : No service: No Current occupational status: disabled Cognitive needs: Yes (wheelchair) Hearing needs: No Vision needs: Yes (Glasses) Meds Allergies Allergy/AdvReac Type Severity Reaction Status Date / Time chlorpheniramine (From Allergy Severe HALLUCINATI Verified 10/03/24 15:53 TUSSIONEX) ONS ciprofloxacin (From CIPRO) Allergy Severe ANAPHYLAXIS Verified 10/03/24 15:53 escitalopram (ESCITALOPRAM) Allergy Severe DISSOCIATIVE Verified 10/03/24 15:53 REACTION fluoxetine (FLUOXETINE) Allergy Severe DISSOCIATIVE Verified 10/03/24 15:53 REACTION hydrocodone (From TUSSIONEX) Allergy Severe HALLUCINATI Verified 10/03/24 15:53 ONS ibuprofen (IBUPROFEN) Allergy Severe THROAT Verified 10/03/24 15:53 SWELLING Sulfa (Sulfonamide Allergy Severe DYSPNEA Verified 10/03/24 15:53 Antibiotics) (SULFA (SULFONAMIDE ANTIBIOTICS)) clarithromycin (From BIAXIN) Allergy Intermediate ABD.PAIN Verified 10/03/24 15:53 duloxetine (DULOXETINE) Allergy Intermediate FACIAL Verified 10/03/24 15:53 NUMBNESS erythromycin base Allergy Intermediate RASH Verified 10/03/24 15:53 (ERYTHROMYCIN BASE) Penicillins (PENICILLINS) Allergy Intermediate RASH Verified 10/03/24 11:23 tetracycline (TETRACYCLINE) Allergy Intermediate DIARRHEA Verified 10/03/24 11:23 codeine (CODEINE) Allergy Unknown TINNITIS Verified 10/03/24 11:23 guaifenesin Allergy Unknown Unknown Verified 10/03/24 11:23 levofloxacin (From Levaquin) Allergy Unknown Unknown Verified 10/03/24 11:23 pregabalin Allergy Unknown Unknown Verified 10/03/24 11:23 Active Medications: Current Medications Acetaminophen (Acetaminophen 325 Mg Tablet) 650 mg PO Q6H PRN PRN Reason: Pain, Mild 1-3,fever,headache Ascorbic Acid (Ascorbic Acid 500 Mg Tablet) 1,000 mg PO DAILY@1500 [facility] Atorvastatin Calcium (Atorvastatin Calcium 10 Mg Tablet) 10 mg PO DAILY@1500 [facility] Calcium Carbonate (Calcium Carbonate 750 Mg Tab.Chew) 750 mg PO Q4H PRN PRN Reason: Heartburn Ceftriaxone Sodium (Ceftriaxone Sodium 1 Gm Vial) 1 gm IVPUSH Q24H [facility] Last Admin: 10/04/24 01:42 Dose: 1 gm Dextrose (Dextrose 50 % 25 Gm/50 Ml Syringe) 25 gm IVPUSH Q15M PRN; Protocol PRN Reason: per Hypoglycemia Standing Ord. Glucose (Glucose Gel 15 Gm Gel..Gram.) 15 gm PO Q15M PRN; Protocol PRN Reason: per Hypoglycemia Standing Ord. Hydromorphone HCl (Hydromorphone Hcl 0.5 Mg/0.5 Ml Syringe) 0.5 mg IVPUSH Q4H PRN; Protocol PRN Reason: Pain, Severe (Pain Scale 7-10) Dextrose/Sodium Chloride (D51/2ns) 1,000 mls @ 100 mls/hr IVCONT .Q10H [facility] Last Admin: 10/04/24 08:19 Dose: 100 mls/hr Metronidazole (Flagyl) 500 mg in 100 mls @ 100 mls/hr IV Q8H [facility] Last Infusion: 10/04/24 07:35 Dose: Infused Insulin Human Lispro (Insulin Lispro 100 Unit/Ml 3 Ml Vial) 0 unit SUBCUT QIDACHS [facility]; Protocol Last Admin: 10/04/24 08:19 Dose: Not Given Levothyroxine Sodium (Levothyroxine Sodium 112 Mcg Tablet) 112 mcg PO DAILY@0600 [facility] Last Admin: 10/04/24 06:09 Dose: 112 mcg Magnesium Hydroxide (Milk Of Magnesia 30 Ml Oral.Susp) 30 ml PO DAILY PRN PRN Reason: Constipation Melatonin (Melatonin 3 Mg Tablet) 6 mg PO BEDTIME PRN PRN Reason: Insomnia Non-Formulary Medication (Trimethoprim) 100 mg PO DAILY@1500 [facility] Pyridoxine HCl (Pyridoxine Hcl (Vitamin B6) 50 Mg Tablet) 100 mg PO DAILY@1500 [facility] Sodium Chloride (0.9 % Sodium Chloride Flush 3 Ml Syringe) 3 ml IVFLUSH QSHIFT [facility] Last Admin: 10/04/24 08:20 Dose: 3 ml Vitamin D (Cholecalciferol (Vitamin D3) 25 Mcg Tablet) 50 mcg PO DAILY@1500 [facility] Home Medications ?Medication ?Instructions ?Recorded ?Confirmed ?Last Taken ?Type atorvastatin 10 mg tablet 10 mg PO DAILY@1500 04/05/21 10/03/24 10/03/24 History metformin 500 mg tablet,extended 500 mg PO DAILY@1700 04/06/21 10/03/24 10/03/24 History release 24 hr acetaminophen 500 mg tablet 1,000 mg PO Q6H PRN Pain 10/04/23 10/03/24 10/03/24 History levothyroxine 112 mcg tablet 112 mcg PO DAILY@0600 05/31/24 10/03/24 10/03/24 History ascorbic acid (vitamin C) 1,000 mg 1,000 mg PO DAILY@1500 10/03/24 10/03/24 10/03/24 History tablet cholecalciferol (vitamin D3) 25 50 mcg PO DAILY@1500 10/03/24 10/03/24 10/03/24 History mcg (1,000 unit) capsule ferrous sulfate 325 mg (65 mg 325 mg PO DAILY@1500 anemia 10/03/24 10/03/24 10/03/24 History iron) tablet pyridoxine (vitamin B6) 50 mg 100 mg PO DAILY@1500 10/03/24 10/03/24 10/03/24 History tablet tramadol 50 mg tablet 50 mg PO DAILY@1500 PRN Pain 10/03/24 10/03/24 Unknown History trimethoprim 100 mg tablet 100 mg PO DAILY@1500 10/03/24 10/03/24 10/03/24 History Physical Exam Vital Signs: Vital Signs: Last Vital Signs Temp 97.3 F 10/04/24 07:14 Pulse 42 L 10/04/24 07:14 Resp 20 10/04/24 07:14 BP 157/67 H 10/04/24 07:14 Pulse Ox 97 10/04/24 07:14 O2 Del Method Room Air 10/04/24 07:14 BMI result Body Mass Index 35.5 Const: General: comfortable and no acute distress Orientation/consciousness: patient oriented x3 HEENT: Other: Unremarkable Head: Yes normal to inspection Neck: Neck: Yes normal visual inspection Chest: Chest palpation & inspection: normal inspection of the chest Resp: Auscultation: clear to auscultation bilaterally Cardio: Palpation: normal PMI Heart sounds: S1 normal heart sound present, S2 normal heart sound present, no gallops, no murmurs and no rubs GI: Palpation (GI): Soft to palpation Back/Spine/Pelvis: Other: unremarkable Skin: General skin exam: no rashes or lesions noted Neuro: General: patient oriented x3 Extrem: General: Yes normal to inspection Psych: Mental Status: mental status grossly normal Objective Labs and Meds 10/03/24 11:58 10/04/24 06:13 Lab results: Laboratory Results - last 24 hr 10/03/24 10/03/24 10/03/24 11:58 19:10 22:23 WBC 10.5 RBC 4.05 L Hgb 11.3 L Hct 35.8 L MCV 88.4 MCH 27.9 MCHC 31.6 RDW 17.1 H Plt Count 224 MPV 9.2 L Immature Gran % (Auto) 1.0 H Neut % (Auto) 69.4 Lymph % (Auto) 20.8 Piatt % (Auto) 7.4 Eos % (Auto) 1.1 Baso % (Auto) 0.3 Lymph # (Auto) 2.2 Piatt # (Auto) 0.8 Eos # (Auto) 0.1 Baso # (Auto) 0.0 Abs Immat Gran (auto) 0.10 H Absolute Neuts (auto) 7.3 Absolute Nucleated RBC 0.000 Nucleated RBC % (auto) 0.0 Hold Purple Top Sodium 137 Potassium 4.6 D Chloride 105 Carbon Dioxide 24 Anion Gap 13 BUN 25 H Creatinine 2.18 H Estim Creat Clear Calc 22.2 Estimated GFR 22 POC Glucose Random Glucose 119 H Lactic Acid 2.4 H* Lactic Acid F/U @ 2Hr 1.4 Calcium 9.4 Total Bilirubin 0.6 Direct Bilirubin 0.2 AST 48 H ALT 29 Alkaline Phosphatase 70 Total Protein 8.2 H Albumin 3.9 Lipase 12 10/04/24 10/04/24 06:13 06:53 WBC RBC Hgb Hct MCV MCH MCHC RDW Plt Count MPV Immature Gran % (Auto) Neut % (Auto) Lymph % (Auto) Piatt % (Auto) Eos % (Auto) Baso % (Auto) Lymph # (Auto) Piatt # (Auto) Eos # (Auto) Baso # (Auto) Abs Immat Gran (auto) Absolute Neuts (auto) Absolute Nucleated RBC Nucleated RBC % (auto) Hold Purple Top SEE NOTE Sodium 139 Potassium 4.1 Chloride 107 Carbon Dioxide 23 Anion Gap 13 BUN 23 H Creatinine 1.98 H Estim Creat Clear Calc 24.5 Estimated GFR 24 POC Glucose 96 Random Glucose 119 H Lactic Acid Lactic Acid F/U @ 2Hr Calcium 8.5 D Total Bilirubin 0.3 Direct Bilirubin AST 34 H ALT 23 Alkaline Phosphatase 58 Total Protein 6.9 Albumin 3.3 L Lipase ECG Interpretation: EKGs suggestive of complete heart block. Ventricular escape rate is 36/Min. Right bundle-branch block morphology. In the previous EKG from July, she was not sinus rhythm at 01:04/Min with prolonged KS and right bundle-branch block. Assessment and Plan (1) Complete heart block: Status: Acute Plan EKGs suggestive of complete heart block. Telemetry is also the same. Unknown cardiac function as there is no echocardiogram in our system. CAT scan abdomen is filtered as left-sided colonic thickening consistent with ischemia, infection or inflammation. Creatinine is 1.98. It has been up and down overall. Overall, complete heart block, and unclear if that is causing the ischemic colitis as well as renal insufficiency. Discussed with Dr. Gordon at [facility]. Plan would be to transfer for EP evaluation/permanent pacemaker consideration. Keep her NPO. She will need an echocardiogram as well. As she will be transferred hopefully soon, may have to get it done at [facility] rather. Procedures Date of Service Date of Service: 10/04/24
--- NOTE | 2024-10-04 08:54 | MHC.CM.PN ---
CM met with Patient at bedside and addressed IMM with her verbally r/t Contact Precautions; original IMM was given to Patient and a copy has been placed on the chart. Patient lives in a house with her Fiance/HCP/Anjel and she uses a cane outdoors for short distances and a w/c for farther distances. Patient states that she has visiting nurse but cannot recall the name of the agency; CM awaits a return call from [facility], with the vna name. Home/resume said services is the Patient's goal and CM has initiated and will follow for dc planning. PCP is Dr. Deal and [facility] will transport to home at dc.
--- NOTE | 2024-10-04 09:17 | PC.NURSE ---
complete heart block , pt denied any dizziness , no CP , HR 30' 40's, cardiology consulted , pt is being transferred to [facility] for pacemaker . Pt is NPO and understands the transfer plan by ambulance
--- NOTE | 2024-10-04 09:19 | PM.GICN ---
History of Present Illness Data of Consult Service Date: 10/04/24 Requesting physician: Wilton Marcial Primary Care Provider: Ap Deal MD HPI Reason for consult: L sided colitis This is a 78 y.o F with PMH of who is here for abd pain, N,V and found to have partial large bowel obstruction. Gastroenterology consultation requested for abnormal imaging findings. Pt reports three days of abdominal pain, bloating, nausea and vomiting. Interestingly, patient also reports diarrhea with this. As she was not able to tolerate any thing orally over the weekend, she came to the emergency room. On arrival she was noted to have soft pressures. Initial labs with lactic acidosis, white count and worsening FELICITA. CT Abd/pel with distal sigmoid narrowing with upstream dilation. Also with surrounding fatty stranding. Does have air in stool matter distal to this narrowing. [facility] 04/2023: Severe diverticulosis in sigmoid with luminal narrowing. At the time of bedside evaluation, patient had just had some broth, and tolerated it without any nausea, or vomiting. PMFSH Past Medical History Medical History UTI (urinary tract infection) Urinary tract infection due to ESBL Klebsiella Anemia Mechanical complication of urethral stent Blood per rectum Dysuria Abscess Hospital discharge follow-up Generalized abdominal pain Encounter for wheelchair assessment Diverticular disease Major depressive disorder Heel spur Chronic low back pain Uterine cancer Hyperthyroidism Weakness of both lower extremities Hydroureteronephrosis Wound infection Open wound of back, complicated Cellulitis Frequency of urination Vaginal burning Vaginal itching PMB (postmenopausal bleeding) Cirrhosis of liver Does mobilize using walker PONV (postoperative nausea and vomiting) Left foot drop Fatty liver Fibromyalgia Neuropathy RBBB Cholelithiasis Staghorn calculus Renal calculus, bilateral Renal calyceal dilation determined by ultrasound Diabetes mellitus, type II Ganglion cyst Plantar fasciitis Anxiety OA (osteoarthritis) Obstructive airway disease Hypercholesterolemia Low back pain Sciatica Hypothyroidism HTN (hypertension) Primary osteoarthritis of right knee Retained ureteral stent Renal stones Staghorn calculus Perirectal abscess Family History Family History Father Alcohol dependence Mother CHF (congestive heart failure) Cancer of breast Mother No problems noted. Other Alcoholic cirrhosis Substance use disorder Surgical History Surgical History History of colostomy reversal (02/20/24) History of colectomy (~10/06/23) Status post cystoscopy with ureteral stent placement History of lumbar discectomy History of lumpectomy of both breasts History of cystoscopy History of lithotripsy Hx of colonoscopy (~04/28/23) History of surgery Social History Social History Household Members: Spouse Housing: House Are you a primary live in caregiver to a significant other at home: No Do you presently have visiting nurse or other home services: No Alcohol intake: current Alcohol intake frequency: does not drink Alcohol type: hard liquor Comment: wheelchair for long distances Patient Tobacco Use Status: Former Tobacco user Tobacco use type: Cigarette Years Smoked: 27 Smoked in Last 30 Days: No e-Cigarette/Vaping Use: Never Used Second Hand Smoke Exposure: No Use of substances other than those prescribed or required for medical reasons: No Have you been hit, kicked, punched, or otherwise hurt by someone within the past year? If so, by whom?: No Do you feel safe in your current relationship?: Yes Are you made to feel afraid or neglected: No Advance Directives: Yes Advance Directives on File: Yes Advance Directives Date on File: 04/06/21 Do you have a plan to hurt others: No Plan Recently lost weight without trying: No Patient : No service: No Current occupational status: disabled Cognitive needs: Yes (wheelchair) Hearing needs: No Vision needs: Yes (Glasses) Meds Allergies Allergy/AdvReac Type Severity Reaction Status Date / Time chlorpheniramine (From Allergy Severe HALLUCINATI Verified 10/03/24 15:53 TUSSIONEX) ONS ciprofloxacin (From CIPRO) Allergy Severe ANAPHYLAXIS Verified 10/03/24 15:53 escitalopram (ESCITALOPRAM) Allergy Severe DISSOCIATIVE Verified 10/03/24 15:53 REACTION fluoxetine (FLUOXETINE) Allergy Severe DISSOCIATIVE Verified 10/03/24 15:53 REACTION hydrocodone (From TUSSIONEX) Allergy Severe HALLUCINATI Verified 10/03/24 15:53 ONS ibuprofen (IBUPROFEN) Allergy Severe THROAT Verified 10/03/24 15:53 SWELLING Sulfa (Sulfonamide Allergy Severe DYSPNEA Verified 10/03/24 15:53 Antibiotics) (SULFA (SULFONAMIDE ANTIBIOTICS)) clarithromycin (From BIAXIN) Allergy Intermediate ABD.PAIN Verified 10/03/24 15:53 duloxetine (DULOXETINE) Allergy Intermediate FACIAL Verified 10/03/24 15:53 NUMBNESS erythromycin base Allergy Intermediate RASH Verified 10/03/24 15:53 (ERYTHROMYCIN BASE) Penicillins (PENICILLINS) Allergy Intermediate RASH Verified 10/03/24 11:23 tetracycline (TETRACYCLINE) Allergy Intermediate DIARRHEA Verified 10/03/24 11:23 codeine (CODEINE) Allergy Unknown TINNITIS Verified 10/03/24 11:23 guaifenesin Allergy Unknown Unknown Verified 10/03/24 11:23 levofloxacin (From Levaquin) Allergy Unknown Unknown Verified 10/03/24 11:23 pregabalin Allergy Unknown Unknown Verified 10/03/24 11:23 Active Medications: Current Medications Acetaminophen (Acetaminophen 325 Mg Tablet) 650 mg PO Q6H PRN PRN Reason: Pain, Mild 1-3,fever,headache Ascorbic Acid (Ascorbic Acid 500 Mg Tablet) 1,000 mg PO DAILY@1500 NOHELIA Atorvastatin Calcium (Atorvastatin Calcium 10 Mg Tablet) 10 mg PO DAILY@1500 ONHELIA Calcium Carbonate (Calcium Carbonate 750 Mg Tab.Chew) 750 mg PO Q4H PRN PRN Reason: Heartburn Ceftriaxone Sodium (Ceftriaxone Sodium 1 Gm Vial) 1 gm IVPUSH Q24H [facility] Last Admin: 10/04/24 01:42 Dose: 1 gm Dextrose (Dextrose 50 % 25 Gm/50 Ml Syringe) 25 gm IVPUSH Q15M PRN; Protocol PRN Reason: per Hypoglycemia Standing Ord. Glucose (Glucose Gel 15 Gm Gel..Gram.) 15 gm PO Q15M PRN; Protocol PRN Reason: per Hypoglycemia Standing Ord. Hydromorphone HCl (Hydromorphone Hcl 0.5 Mg/0.5 Ml Syringe) 0.5 mg IVPUSH Q4H PRN; Protocol PRN Reason: Pain, Severe (Pain Scale 7-10) Dextrose/Sodium Chloride (D51/2ns) 1,000 mls @ 100 mls/hr IVCONT .Q10H [facility] Last Admin: 10/04/24 08:19 Dose: 100 mls/hr Metronidazole (Flagyl) 500 mg in 100 mls @ 100 mls/hr IV Q8H [facility] Last Infusion: 10/04/24 07:35 Dose: Infused Insulin Human Lispro (Insulin Lispro 100 Unit/Ml 3 Ml Vial) 0 unit SUBCUT QIDACHS [facility]; Protocol Last Admin: 10/04/24 08:19 Dose: Not Given Levothyroxine Sodium (Levothyroxine Sodium 112 Mcg Tablet) 112 mcg PO DAILY@0600 [facility] Last Admin: 10/04/24 06:09 Dose: 112 mcg Magnesium Hydroxide (Milk Of Magnesia 30 Ml Oral.Susp) 30 ml PO DAILY PRN PRN Reason: Constipation Melatonin (Melatonin 3 Mg Tablet) 6 mg PO BEDTIME PRN PRN Reason: Insomnia Non-Formulary Medication (Trimethoprim) 100 mg PO DAILY@1500 [facility] Pyridoxine HCl (Pyridoxine Hcl (Vitamin B6) 50 Mg Tablet) 100 mg PO DAILY@1500 [facility] Sodium Chloride (0.9 % Sodium Chloride Flush 3 Ml Syringe) 3 ml IVFLUSH [facility] Last Admin: 10/04/24 08:20 Dose: 3 ml Vitamin D (Cholecalciferol (Vitamin D3) 25 Mcg Tablet) 50 mcg PO DAILY@1500 [facility] Home Medications ?Medication ?Instructions ?Recorded ?Confirmed ?Last Taken ?Type atorvastatin 10 mg tablet 10 mg PO DAILY@149904/05/21 10/03/24 10/03/24 History metformin 500 mg tablet,extended 500 mg PO DAILY@1700 04/06/21 10/03/24 10/03/24 History release 24 hr acetaminophen 500 mg tablet 1,000 mg PO Q6H PRN Pain 10/04/23 10/03/24 10/03/24 History levothyroxine 112 mcg tablet 112 mcg PO DAILY@0605/31/24 10/03/24 10/03/24 History ascorbic acid (vitamin C) 1,000 mg 1,000 mg PO DAILY@149910/03/24 10/03/24 10/03/24 History tablet cholecalciferol (vitamin D3) 25 50 mcg PO DAILY@149910/03/24 10/03/24 10/03/24 History mcg (1,000 unit) capsule ferrous sulfate 325 mg (65 mg 325 mg PO DAILY@1500 anemia 10/03/24 10/03/24 10/03/24 History iron) tablet pyridoxine (vitamin B6) 50 mg 100 mg PO DAILY@1500 10/03/24 10/03/24 10/03/24 History tablet tramadol 50 mg tablet 50 mg PO DAILY@1500 PRN Pain 10/03/24 10/03/24 Unknown History trimethoprim 100 mg tablet 100 mg PO DAILY@1500 10/03/24 10/03/24 10/03/24 History Physical Exam Vital Signs: Vital Signs: Last Vital Signs Temp 97.3 F 10/04/24 07:14 Pulse 42 L 10/04/24 07:14 Resp 20 10/04/24 07:14 BP 157/67 H 10/04/24 07:14 Pulse Ox 97 10/04/24 07:14 O2 Del Method Room Air 10/04/24 07:14 BMI result Body Mass Index 35.5 Results Labs 10/03/24 11:58 10/04/24 06:13 Labs: Short CBC 10/03/24 Range/Units 11:58 WBC 10.5 (4.8-10.8) X10*3/uL Hgb 11.3 L (12.0-16.0) g/dl Hct 35.8 L (37.0-47.0) % Plt Count 224 (160-400) X10*3/uL BMP 10/03/24 10/04/24 11:58 06:13 Sodium 137 139 Potassium 4.6 D 4.1 Chloride 105 107 Carbon Dioxide 24 23 BUN 25 H 23 H Creatinine 2.18 H 1.98 H Calcium 9.4 8.5 D Liver Function 10/03/24 10/04/24 Range/Units 11:58 06:13 Total Bilirubin 0.6 0.3 (0.0-1.0) mg/dL Direct Bilirubin 0.2 (0.0-0.5) mg/dL AST 48 H 34 H (5-31) U/L ALT 29 23 (0-31) U/L Alkaline Phosphatase 70 58 (39-117) U/L Albumin 3.9 3.3 L (3.5-5.0) g/dL Procedures Date of Service Date of Service: 10/04/24
--- NOTE | 2024-10-04 09:19 | PM.DS ---
DS: Providers Provider Date of Service: 10/04/24 Date of admission: 10/03/24 21:26 Date of discharge: 10/04/24 Primary care physician: Ap Deal MD Consults: 10/03/24 21:26 Consult to Gastroenterology Routine Consulting Provider: [facility] Reason for consultation: BRBPR Consult to General Surgery Routine Consulting Provider: [facility] Reason for consultation: colitis 10/04/24 07:55 Consult to Cardiology Routine Consulting Provider: [facility] Reason for consultation: riya, ?2:1 DS: Diagnosis Discharge Diagnosis (1) Ischemic colitis: Status: Acute DS: Summary Hospital Course Hospital Course: from initial hpi: Chief Complaint: Abdominal discomfort 79y female with a past medical history of HTN, HLD, dm, history of retroperitoneal abscess, history of right ureteric stent, history of ESBL UTI, renal calculi, CKD, 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 Patient initially had an episode of bright red blood per rectum . Followed by she has a bowel movement with no blood in it. Following the bowel movement her abdominal cramping improved. Denies any abdominal pain at the time of my interview. Patient denies any chest pain or palpitations. Denies any urinary symptoms. Review of all other systems is negative except mentioned above ER course: Per ER team, patient's abdominal exam was benign; CT scan showed left-sided colonic thickening concerning for ischemia; patient's lactate was slightly elevated. H&H stable. ER team discussed with Dr. Fran Abarca-vascular surgeon at [facility] who reviewed the CT scan and mentioned that appears to be ischemic colitis but based on current presentation no acute surgical intervention needed and no need for transfer at this time. Recommended admission for medical management including IV fluids and bowel rest. hospital course: Patient was admitted for ischemic colitis complicated by acute kidney injury on CKD 3 was given IV fluids ceftriaxone and Flagyl. Course was then complicated by second-degree AV block with 2-1 conduction with rate of 35 was seen by Cardiology who felt this was likely contributing to ischemic colitis and recommended transfer to [facility] for EP/pacer evaluation. For diabetes was continued on insulin sliding scale. For hypertension BP meds were held. For obesity weight loss recommended. Time Attestation Discharge Coordination Time (in mins): 33 Quality: Safe Use of Opioids Does Pt have an Active Cancer Diagnosis on the Problem List?: No Quality: Stroke Does the patient have a stroke diagnosis?: No Physical Exam Vital Signs: Vital Signs: Last Vital Signs Temp 97.3 F 10/04/24 07:14 Pulse 42 L 10/04/24 07:14 Resp 20 10/04/24 07:14 BP 157/67 H 10/04/24 07:14 Pulse Ox 97 10/04/24 07:14 O2 Del Method Room Air 10/04/24 07:14 BMI result Body Mass Index 35.5 Const: General: comfortable, no acute distress and alert Orientation/consciousness: patient oriented x3 Resp: Effort & Inspection: normal respiratory effort GI: Other: abd soft, mild tenderness on left side of abdomen more increased in LUQ/epigastric region, no rebound nondistended large midline hernia which is soft, reducible Inspection: Yes scar (multiple scars, midline and left mid abdomen) Palpation (GI): no guarding Percussion: Yes normal to percussion Skin: General skin exam: no rashes or lesions noted Neuro: General: patient oriented x3 DS: Data Data Completed and Pending Completed studies during hospitalization [Text1]: Procedures Bypass Descending Colon to Cutaneous, Open Approach (10/04/23) Dilation of Right Ureter with Intraluminal Device, Via Natural or Artificial Opening Endoscopic (04/25/23) Drainage of Retroperitoneum with Drainage Device, Percutaneous Approach (12/08/21) Excision of Large Intestine, Via Natural or Artificial Opening Endoscopic, Diagnostic (04/25/23) Excision of Sigmoid Colon, Open Approach (10/04/23) Excision of Small Intestine, Open Approach (02/20/24) Extirpation of Matter from Right Ureter, Via Natural or Artificial Opening Endoscopic (04/05/21) Fluoroscopy of Right Kidney, Ureter and Bladder (04/25/23) Insertion of Infusion Device into Right Basilic Vein, Percutaneous Approach (07/31/24) Introduction of Anesthetic Agent into Peripheral Nerves and Plexi, Percutaneous Approach (02/20/24) Release Peritoneum, Open Approach (02/20/24) Reposition Descending Colon, Open Approach (02/20/24) Labs on day of discharge: Laboratory Results - last 24 hr 10/03/24 10/03/24 10/03/24 11:58 19:10 22:23 WBC 10.5 RBC 4.05 L Hgb 11.3 L Hct 35.8 L MCV 88.4 MCH 27.9 MCHC 31.6 RDW 17.1 H Plt Count 224 MPV 9.2 L Immature Gran % (Auto) 1.0 H Neut % (Auto) 69.4 Lymph % (Auto) 20.8 Clinch % (Auto) 7.4 Eos % (Auto) 1.1 Baso % (Auto) 0.3 Lymph # (Auto) 2.2 Clinch # (Auto) 0.8 Eos # (Auto) 0.1 Baso # (Auto) 0.0 Abs Immat Gran (auto) 0.10 H Absolute Neuts (auto) 7.3 Absolute Nucleated RBC 0.000 Nucleated RBC % (auto) 0.0 Hold Purple Top Sodium 137 Potassium 4.6 D Chloride 105 Carbon Dioxide 24 Anion Gap 13 BUN 25 H Creatinine 2.18 H Estim Creat Clear Calc 22.2 Estimated GFR 22 POC Glucose Random Glucose 119 H Lactic Acid 2.4 H* Lactic Acid F/U @ 2Hr 1.4 Calcium 9.4 Total Bilirubin 0.6 Direct Bilirubin 0.2 AST 48 H ALT 29 Alkaline Phosphatase 70 Total Protein 8.2 H Albumin 3.9 Lipase 12 10/04/24 10/04/24 06:13 06:53 WBC RBC Hgb Hct MCV MCH MCHC RDW Plt Count MPV Immature Gran % (Auto) Neut % (Auto) Lymph % (Auto) Clinch % (Auto) Eos % (Auto) Baso % (Auto) Lymph # (Auto) Clinch # (Auto) Eos # (Auto) Baso # (Auto) Abs Immat Gran (auto) Absolute Neuts (auto) Absolute Nucleated RBC Nucleated RBC % (auto) Hold Purple Top SEE NOTE Sodium 139 Potassium 4.1 Chloride 107 Carbon Dioxide 23 Anion Gap 13 BUN 23 H Creatinine 1.98 H Estim Creat Clear Calc 24.5 Estimated GFR 24 POC Glucose 96 Random Glucose 119 H Lactic Acid Lactic Acid F/U @ 2Hr Calcium 8.5 D Total Bilirubin 0.3 Direct Bilirubin AST 34 H ALT 23 Alkaline Phosphatase 58 Total Protein 6.9 Albumin 3.3 L Lipase Discharge Plan Discharge Anticipated Discharge Date/Time: 10/04/24 09:17 Patient Disposition: [facility] Discharge Diagnosis: 2nd degree heart block, ischemic colitis Referrals: Ap Deal MD [Primary Care Provider, Internal Medicine] - 1 Week Discharge Medications: New ceftriaxone 1 gram Recon Soln 1 g IVPUSH Q24H Qty: 0 0RF metronidazole in NaCl (iso-os) 500 mg/100 mL Piggyback 500 mg IV Q8H Qty: 0 0RF Continued (DME) Wheel chair Kit See Rx Instructions .Route Qty: 1 0RF Rx Instructions: As directed; Manual 20 inch travel wheelchair with seat cushion and foot rests; Height 5ft 1.25 inches; Weight 191 lbs; ; QUANTITY OF 1; length of need 99 atorvastatin 10 mg tablet 10 mg PO DAILY@1500 metformin 500 mg tablet extended release 24 hr 500 mg PO DAILY@1700 acetaminophen 500 mg Tablet 1,000 mg PO Q6H PRN (Reason: Pain) ascorbic acid (vitamin C) 1,000 mg tablet 1,000 mg PO DAILY@1500 trimethoprim 100 mg tablet 100 mg PO DAILY@1500 tramadol 50 mg tablet 50 mg PO DAILY@1500 PRN (Reason: Pain) ferrous sulfate 325 mg (65 mg iron) tablet 325 mg PO DAILY@1500 pyridoxine (vitamin B6) 50 mg tablet 100 mg PO DAILY@1500 cholecalciferol (vitamin D3) 25 mcg (1,000 unit) capsule 50 mcg PO DAILY@1500 levothyroxine 112 mcg tablet 112 mcg PO DAILY@0600 Discontinued furosemide 40 mg tablet 40 mg PO DAILY@1500 Discharge Orders: Discharge Order (Routine); Ordered 10/04/24 Ordered By: Reji Caceres Diet: Advance to usual diet Activity on Discharge: As tolerated Stand Alone Forms: Patient Portal Discharge page Print Language: Albanian Care Plan Goals: Recovery Health Concerns: Heart block and ischemic colitis Plan of Treatment: Transfer to [facility] Assessment: See above
--- NOTE | 2024-10-04 09:28 | MHC.CM.PN ---
Patient will transfer to [facility].
[2024-10-04 10:58] VITALS: BP 156/48; PULSE 42; RESP 20; TEMP 36.6; O2SAT 98
[2024-10-04 11:10] LABS: Glucose, Whole Blood 120 mg/dL (60-115)
[2024-10-04 15:40] VITALS: BP 149/63; PULSE 45; RESP 18; TEMP 36.5; O2SAT 97
[2024-10-04 16:28] LABS: Glucose, Whole Blood 112 mg/dL (60-115)
== END 2024-10-04 17:25 | disposition short-term general hospital (02) | DRG 309 ==
LOC: HO.ED 21:37 → HO.EDOVER 21:41 → HO.IMC 23:21
PROVIDERS: Physician Assistant Medical; Admitting Provider Hospitalist; Emergency Provider Emergency Medicine; PCP Internal Medicine; Visit Provider Internal Medicine
DX: I44.1 Atrioventricular block, second degree (principal); K55.9 Vascular disorder of intestine, unspecified; N17.9 Acute kidney failure, unspecified; N18.30 Chronic kidney disease, stage 3 unspecified; E11.22 Type 2 diabetes mellitus with diabetic chronic kidney disease; E05.90 Thyrotoxicosis, unspecified without thyrotoxic crisis or storm; Z79.84 Long term (current) use of oral hypoglycemic drugs; Z79.899 Other long term (current) drug therapy
CPT/HCPCS: 36415; 74177; 80048; 80053; 80076; 82947; 83605; 83690; 85025; 87040; 93005; 99285; J0696; J1836; Q9967

== ENCOUNTER → 2024-10-03 15:03 | Outpatient (BNV) | payer MEDICARE, SELFPAY | PROVIDERS: PCP Internal Medicine; Visit Provider Radiology Diagnostic Radiology | DX: R10.9 Unspecified abdominal pain (principal) | CPT/HCPCS: 74177 ==

== ENCOUNTER 2024-10-03 21:26 | Outpatient (BNV) | payer MEDICARE, SELFPAY | END 2024-10-04 07:28 | PROVIDERS: Admitting Provider Hospitalist; Emergency Provider Emergency Medicine; PCP Internal Medicine; Visit Provider Internal Medicine | DX: I44.2 Atrioventricular block, complete (principal); I45.10 Unspecified right bundle-branch block | CPT/HCPCS: 93010 ==

== ENCOUNTER → 2024-10-03 21:26 | Outpatient (BNV) | payer MEDICARE, SELFPAY | PROVIDERS: Admitting Provider Hospitalist; Emergency Provider Emergency Medicine; PCP Internal Medicine; Visit Provider Internal Medicine | DX: R10.10 Upper abdominal pain, unspecified (principal); K55.9 Vascular disorder of intestine, unspecified | CPT/HCPCS: 99223; 99239 ==

== ENCOUNTER → 2024-10-03 21:26 | Outpatient (BNV) | payer MEDICARE, SELFPAY | PROVIDERS: Admitting Provider Hospitalist; Emergency Provider Emergency Medicine; PCP Internal Medicine; Visit Provider Internal Medicine | DX: I44.2 Atrioventricular block, complete (principal) | CPT/HCPCS: 93010; 99223 ==

== ENCOUNTER → 2024-10-03 21:26 | Outpatient (BNV) | payer MEDICARE, SELFPAY | PROVIDERS: Admitting Provider Hospitalist; Emergency Provider Emergency Medicine; PCP Internal Medicine; Visit Provider Physician Assistant Surgical | DX: K55.9 Vascular disorder of intestine, unspecified (principal) | CPT/HCPCS: 99222 ==

== ENCOUNTER 2024-10-25 14:21 | Outpatient (AMB) | payer MEDICARE, SELFPAY ==
--- NOTE | 2024-10-25 14:22 | MHC.PC.OV ---
Vital Signs 10/25/24 14:28 BP 141/65 H Blood Pressure Location Lt brachial Position Sitting Pulse 89 Pulse Source Pulse Oximeter Temp 97.7 F Temp Source Temporal Artery Scan Pulse Oximetry (%) 97 Oxygen Delivery Method Room Air Intake Visit Reasons: TCM BS Discharge Intake Note: Patient presents to the office for a TCM visit. Date of admission: 10/03/2024 Date of discharge: 10/13/2024 This is a Follow-up from admission at patient was seen in the emergency department at [facility] then transferred to [facility] for admission Doorperson Required: No Cable Splicer: Not Required per policy Accompanied by: Spouse Allergies chlorpheniramine (From TUSSIONEX) Allergy (Severe, Verified 10/25/24 14:42) HALLUCINATIONS ciprofloxacin (From CIPRO) Allergy (Severe, Verified 10/25/24 14:42) ANAPHYLAXIS escitalopram (ESCITALOPRAM) Allergy (Severe, Verified 10/25/24 14:42) DISSOCIATIVE REACTION fluoxetine (FLUOXETINE) Allergy (Severe, Verified 10/25/24 14:42) DISSOCIATIVE REACTION hydrocodone (From TUSSIONEX) Allergy (Severe, Verified 10/25/24 14:42) HALLUCINATIONS ibuprofen (IBUPROFEN) Allergy (Severe, Verified 10/25/24 14:42) THROAT SWELLING Sulfa (Sulfonamide Antibiotics) (SULFA (SULFONAMIDE ANTIBIOTICS)) Allergy (Severe, Verified 10/25/24 14:42) DYSPNEA clarithromycin (From BIAXIN) Allergy (Intermediate, Verified 10/25/24 14:42) ABD.PAIN duloxetine (DULOXETINE) Allergy (Intermediate, Verified 10/25/24 14:42) FACIAL NUMBNESS erythromycin base (ERYTHROMYCIN BASE) Allergy (Intermediate, Verified 10/25/24 14:42) RASH Penicillins (PENICILLINS) Allergy (Intermediate, Verified 10/25/24 14:42) RASH tetracycline (TETRACYCLINE) Allergy (Intermediate, Verified 10/25/24 14:42) DIARRHEA codeine (CODEINE) Allergy (Unknown, Verified 10/25/24 14:42) TINNITIS guaifenesin Allergy (Unknown, Verified 10/25/24 14:42) Unknown levofloxacin (From Levaquin) Allergy (Unknown, Verified 10/25/24 14:42) Unknown pregabalin Allergy (Unknown, Verified 10/25/24 14:42) Unknown Medication List - Last Reconciled 10/25/24 by Margarita Powell PA-C acetaminophen 1,000 mg PO Q6H PRN ascorbic acid (vitamin C) 1,000 mg PO DAILY@1500 atorvastatin 10 mg PO DAILY@1500 ceftriaxone 1 g IVPUSH Q24H chair, wheel (Wheel chair) As directed; Manual 20 inch travel wheelchair with seat cushion and foot rests; Height 5ft 1.25 inches; Weight 191 lbs; ; QUANTITY OF 1; length of need 99 cholecalciferol (vitamin D3) 50 mcg (2 x 25 mcg (1,000 unit)) PO DAILY ferrous sulfate 325 mg PO DAILY@1500 levothyroxine 112 mcg PO DAILY@0600 metformin ER 500 mg PO DAILY@1700 pyridoxine (vitamin B6) 100 mg PO DAILY@1500 tramadol 50 mg PO DAILY@1500 PRN trimethoprim 100 mg PO DAILY@1500 Tobacco use date assessed: 10/25/24 Fall risk assessment: 1 Fall in past year Dental Screening Dental Screen Date: 10/25/24 Did you have a dental visit in the last 12 months?: Yes Did you have a dental problem in the last 6 months where you did not have access to dental care?: No HPI HPI Comments History of Present Illness Details Patient presents to the office for a TCM visit. Date of admission: 10/03/2024 Date of discharge: 10/13/2024 This is a Follow-up from admission at patient was seen in the emergency department at [facility] then transferred to [facility] for admission HPI/Hospital Course/Discharge Summary: This is a 79-year-old female with a past medical history is significant and relevant for sigmoid stricture status post partial colectomy with colostomy status post reversal with colo colonic and a MOLST this at [facility] 02/2024, hypothyroidism, type 2 diabetes, recurrent UTIs on chronic suppressive regimen who initially presented to [facility] for progressive abdominal pain along with BR be WI was diagnosed with acute ischemic colitis and treated with IV fluids, was noted to have complete heart block on EKG and was transferred to [facility] for higher level of care as well as EP evaluation. On presentation to [facility] patient was evaluated by EP and noted to have complete heart block for which she had a pacemaker placed me on 10/05/2024 with no immediate postoperative complications. Her device was also interrogated by cardiology. During this admission patient continue to experience significant abdominal pain along with diarrhea was treated with IV antibiotics and her diet was slowly progress. GI was consulted in colonoscopy was performed on 10/12/2024 with no evidence of ischemic colitis but there was evidence of a previous end to side colo colonic and a MOLST this which was seen in the 20 cm from the anal verge. There was tight narrowing at the anastomosis consistent with and ecchymotic stricture for which a narrow endoscope was substituted which transverse the stricture with some difficulty and causing some dilation of the stricture. There was also evidence of both internal as well as external hemorrhoids which were nonbleeding at the time of the evaluation with plan for outpatient colonoscopy for further dilation. Over the course of the admission patient's abdominal pain as well as diarrhea had improved. Patient had some incidental more follicle findings suggestive of cirrhosis on CT scan performed at [facility] but current lead appears to be compensated with no signs of decompensation or signs of hepatic encephalopathy. She will need to follow up with her primary care physician for further workup on hepatic cirrhosis as well as follow-up with EP device clinic in the next 2 weeks for device check. She will also need to follow up with GI for outpatient colonoscopy for further dilation of the stricture at the colonic animal cyst. She remained hemodynamically stable at this time of discharge, case management did offer her home services but patient graciously declined referral. For the patient's ischemic colitis it resolved. Per [facility] record patient presenting with 1 day of lower abdominal pain and bloody diarrhea CT showed left-sided colitis clinically history consistent with ischemic colitis triggered by low cardiac output from high-grade AV block, both surgery at [facility] and vascular surgery at [facility] reviewed and no indication for acute intervention; blood culture obtained at [facility] negative to date during the admission patient continue to experience significant abdominal pain along with diarrhea was treated with IV antibiotics and her diet was slowly progressive. GI was consulted and colonoscopy was performed on 10/12/2024 with no evidence of ischemic colitis but there was evidence from a previous and to side coli colonic ecchymosis was seen in the 20 cm from the anal verge. There was tight narrowing at the anastomosis consistent with an osmotic stricture for which a neuro endoscope was substituted which transverse a stricture with some difficulty and causing some dilation of the stricture. There was also evidence of internal as well external hemorrhoids which were nonbleeding at the time of the evaluation with plan for outpatient colonoscopy for further dilation. For the patient's complete heart block EP consulted appreciate his status post ppm placement on 10/05 plan is to follow up with device clinic in 2 weeks for wound check which patient already has an she will call them again due to she is having some pain and some drainage from the site. Type 2 diabetes with diabetic neuropathy without long-term current use of insulin resume home metformin at time of discharge was patient already has. FELICITA superimposed on CKD per records from [place] creatinine was 1.1-1.51 month ago FELICITA can be hypoperfusion injury from he no dynamic changes due to heart block. Creatinine back to baseline stopped IV fluids, encourage p.o. intake minimize nephrotoxins. For the patient's acute metabolic encephalopathy on admission patient appeared confused oriented to self person only with psychomotor delayed now she is fully alert and oriented. No focal neuro signs overall consistent with the acute metabolic encephalopathy in the setting of FELICITA and colonic ischemia. Mild short-term memory loss is noted may benefit from outpatient neuro psychiatric testing although patient declined at the time of this visit she does not feel like she needs this. They instructed patient to continue B12 low continue p.o. supplement upon discharge. Acute cystitis without hematuria patient endorse dysuria but appeared chronic, UA showed pyuria, [facility] record showed previous urine culture showed ESBL E coli sensitive to Cipro, imipenem and gentamicin, new urine culture negative, likely partially treated UTI from antibiotics used for colitis. Alcoholic cirrhosis of the liver without ascites per chart review only; CT abdomen pelvis from [facility] did mention cirrhosis morphology of the liver, no ascites, no clinical evidence of decompensation, clinical changes not consistent with hepatic encephalopathy, will defer to outpatient evaluation. Hypothyroidism patient to continue hypothyroidism TSH within normal limits. Discharged to/Current Location: Home Lives with: Eddie Diagnosis: Colonic ischemia; type 2 diabetes with diabetic neuropathy without long-term use of insulin; acute kidney injury superimposed on CKD; alcoholic cirrhosis of liver without ascites; hypothyroidism; complete heart block; acute metabolic encephalopathy; acute cystitis without hematuria Procedures performed: Pacemaker was placed on 10/05/2024 New medications: No new medications were given Discontinued medications: Furosemide 40 mg daily lisinopril 10 mg daily Percocet 2 tablets every 6 hours Change medications/dosing: No changes in medication or dosing Pending labs: No pending labs are indicated at this time Pending diagnostic test: No pending diagnostic tests are pending at this time Any Follow-up Labs required? No follow-up labs required at this time Any Follow-up Diagnostic test required? Repeat Colonoscopy with GI therefore patient will be referred back to [facility] GI How are you feeling? Mild pain last night and took a pain pill and improved her pain Are you in any pain or discomfort? mild pain at pace maker site comfort Do you have any questions about your condition or discharge instructions? Patient does not have any questions about her condition or discharge instructions Were you able to get your medications filled? Patient was able to feel all her medications Do you have any questions about your medications? Patient does not have any questions about her medications Any referrals required? Gastroenterology referral placed at this time and patient instructed to go back to the device clinic at [address] [place] [address] in [place] to be re-evaluated for the site of the pacemaker that has some soft tissue swelling, tenderness and some mild serosanguineous drainage. Were you able to schedule your follow-up appointment? Patient went to the device clinic at [address] [place] [address] in [place] [address] on 10/18/2024 10:00 and GI for repeat Colonoscopy If home health was ordered, have they contact you? 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 Reports that her fiance helps her with meals, transportation and all her ADLs Educational need/resources: Patient does not feel like she needs any additional educational needs or resources What support system do you have? [facility] Medical History (Updated 10/25/24 @ 16:00 by Margarita Powell PA-C) Acute cystitis without hematuria Acute metabolic encephalopathy Acute kidney injury superimposed on CKD Alcoholic cirrhosis of liver without ascites Pacemaker UTI (urinary tract infection) Urinary tract infection due to ESBL Klebsiella Anemia Mechanical complication of urethral stent Blood per rectum Dysuria Abscess Hospital discharge follow-up Generalized abdominal pain Encounter for wheelchair assessment Diverticular disease Major depressive disorder Heel spur Chronic low back pain Uterine cancer Hyperthyroidism Weakness of both lower extremities Hydroureteronephrosis Wound infection Open wound of back, complicated Cellulitis Frequency of urination Vaginal burning Vaginal itching PMB (postmenopausal bleeding) Cirrhosis of liver Does mobilize using walker PONV (postoperative nausea and vomiting) Left foot drop Fatty liver Fibromyalgia Neuropathy RBBB Cholelithiasis Staghorn calculus Renal calculus, bilateral Renal calyceal dilation determined by ultrasound Diabetes mellitus, type II Ganglion cyst Plantar fasciitis Anxiety OA (osteoarthritis) Obstructive airway disease Hypercholesterolemia Low back pain Sciatica Hypothyroidism HTN (hypertension) Primary osteoarthritis of right knee Retained ureteral stent Renal stones Staghorn calculus Perirectal abscess Surgical History History of colostomy reversal (02/20/24) History of colectomy (~10/06/23) Status post cystoscopy with ureteral stent placement History of lumbar discectomy History of lumpectomy of both breasts History of cystoscopy History of lithotripsy Hx of colonoscopy (~04/28/23) History of surgery Family History Father Alcohol dependence Mother CHF (congestive heart failure) Cancer of breast Mother No problems noted. Other Alcoholic cirrhosis Substance use disorder Social History Household Members: Spouse Housing: House Are you a primary animal care attendant to a significant other at home: No Do you presently have visiting nurse or other home services: No 75 years or older and lives alone: No Alcohol intake: current Alcohol intake frequency: does not drink Alcohol type: hard liquor Comment: wheelchair for long distances Patient Tobacco Use Status: Former Tobacco user Tobacco use type: Cigarette Years Smoked: 27 e-Cigarette/Vaping Use: Never Used Second Hand Smoke Exposure: No Advance Directives Date on File: 04/06/21 service: No Current occupational status: disabled Cognitive needs: Yes (wheelchair) Hearing needs: No Vision needs: Yes (Glasses) Questionnaire PHQ-9 Over the last 2 weeks, how often have you been bothered by any of the following problems? 1. Little interest or pleasure in doing things: not at all 2. Feeling down, depressed, or hopeless: not at all 3. Trouble falling or staying asleep, or sleeping too much: not at all 4. Feeling tired or having little energy: not at all 5. Poor appetite or overeating: not at all 6. Feeling bad about yourself - or that you are a failure or have let yourself or your family down: not at all 7. Trouble concentrating on things, such as reading the newspaper or watching television: not at all 8. Moving or speaking so slowly that other people could have noticed. Or the opposite - being so fidgety or restless that you have been moving around a lot more than usual: not at all 9. Thoughts that you would be better off or of hurting yourself in some way: not at all Total score: 0 Depression Screening Interpretation: Negative Depression Screening Done: Yes 41257 - PHQ-9 Billing: Yes Source: Developed by Drs. Preston Aponte, Jojo Holland, Subhash Richmond and colleagues, with an educational vernon from [employer] Reviewed. Thrive Questionnaire Date Thrive assessed: 10/04/24 I am a: Patient What is your living situation today?: I have a steady place to live Within the past 12 months, did the food you bought not last and you didn't have the money to get more?: Never true Within the past 12 months, did you worry whether your food would run out before you got money to buy more?: Never true Do you have trouble paying for medicines?: No Do you have trouble getting transportation to medical appointments?: No Do you have trouble paying your heating and electricity bill?: No Do you have trouble taking care of your child, family member or friend?: No Do you have trouble with day-to-day activities such as bathing, preparing meals, shopping, managing finances, etc.?: No Are you currently unemployed and looking for a job?: No Are you interested in more education?: No Please select the resources that you would like help with: None THRIVE Score: 0 AUDIT C Alcohol Use Questionnaire (AUDIT-C) 1. How often do you have a drink containing alcohol?: Never 3. How often do you have six or more drinks on one occasion?: Never Total Score: 0 Score Reviewed/Action Taken: No RAMONE-7 AMB Questionnaire RAMONE-7 Date RAMONE - 7 assessed: 06/12/24 Feeling nervous, anxious, or on edge: 0 = Not at all Not being able to stop or control worryin = Not at all Worrying too much about different things: 0 = Not at all Trouble relaxin = Not at all Being so restless that it is hard to sit still: 0 = Not at all Becoming easily annoyed or irritable: 0 = Not at all Feeling afraid as if something awful might happen: 0 = Not at all Total RAMONE-7 score (0-4 normal; 5-9 mild; 10-14 moderate; 15-21 severe): 0 Source: Developed by Drs. Preston Aponte, Jojo Holland, Subhash Richmond and colleagues, with an educational vernon from [employer] Reviewed. RAMONE-7 Assessment Billing RAMONE-7 Assessment Tool: RAMONE-7 Assessment 66492 Review of Systems Const Details: - Cardiovascular: Reports mild soreness at pacemaker incision site. Denies chest pain or palpitations. - Gastrointestinal: Denies abdominal pain or changes in bowel habits. All systems reviewed & are unremarkable except as noted in HPI and below Physical exam (Primary Care) Vital Signs: Last Vital Signs Temp 97.7 F 10/25/24 14:28 Pulse 89 10/25/24 14:28 BP 141/65 H 10/25/24 14:28 Pulse Ox 97 10/25/24 14:28 Oxygen Delivery Method Room Air 10/25/24 14:28 Vitals signs have been reviewed. Care Plan Goal for BP management: <140/90 at Goal BMI Assessment/Plan discussion: High BMI High, discussed plan: lifestyle, weight reduction, dietary, physical activity, alcohol moderation and other Tobacco/Smoking Status: Tobacco use Status Tobacco use date assessed 10/25/24 10/25/24 14:26 Patient Tobacco Use Status Former Tobacco user 10/25/24 14:26 Tobacco use type Cigarette 10/25/24 14:26 e-Cigarette/Vaping Use Never Used 10/25/24 14:26 PHQ-9: PHQ-9 Score PHQ-9: Total score 0 10/25/24 14:26 Depression Screening Interpretation: Negative Thrive Assessment: Date of Thrive Assessment Date Thrive assessed 10/04/24 10/25/24 14:26 Const Other: Appearance: Alert. Oriented X3. No acute distress. Head: Normal external exam. Normocephalic. Atraumatic. Eyes: Pupils are equal, round, and reactive to light. Extraocular movements intact. Conjunctiva and sclera normal. Eyelids normal. Throat: Pharynx normal. Uvula midline. Moist mucous membranes. Neck: Normal inspection. Neck supple. Full range of motion. Cardiovascular: Normal heart rate and rhythm. Heart sound normal. No murmurs noted. Pulses normal throughout. Respiratory: No respiratory distress. Painless inspiration. Breath sounds normal. No wheezes/rales/rhonchi noted. Pacemaker to left upper chest wall with improving surgical site although at the proximal aspect of the surgical site there is mild soft tissue swelling, tenderness to palpation in serosanguineous drainage. There is no erythema, crepitus, purulent drainage, foul odor or signs of active infection at this time. The rest of the chest wall is nontender. No accessory muscle usage noted or decreased air movement noted. Abdomen: Soft and nontender. No distention noted. No organomegaly noted. Back: Full range of motion noted. Skin: Skin warm and dry. Normal skin color. Normal skin turgor. No rashes/lesions/lacerations noted. Extremities: No lower extremity edema. Extremities exhibit normal range of motion. Neuro: Oriented X 3. Moving all extremities sitting in wheelchair. Results Reviewed Results Reviewed: - Colonoscopy on 10/12/2024: No evidence of ischemic colitis, slight narrowing observed 20 cm from anal verge. Coding Level of Care Code TCM High MDM <= 14 days Complex EM visit Add On G2211 Diagnoses Hospital discharge follow-up Z09 Ischemic colitis K55.9 Diabetes mellitus, type II E11.9 Acute kidney injury superimposed on CKD N17.9; N18.9 Alcoholic cirrhosis of liver without ascites K70.30 Complete heart block I44.2 Pacemaker Z95.0 Acute metabolic encephalopathy G93.41 Acute cystitis without hematuria N30.00 Additional Codes RAMONE-7 Assessment Billing - RAMONE-7 Assessment Tool: RAMONE-7 Assessment 14982 ([id number]) PHQ-9 - 83912 - PHQ-9 Billing: Yes ([id number]) Time Spent (min) 60 Assessment & Plan Assessment & Plan (1) Hospital discharge follow-up: Code(s): Z09 - Encounter for follow-up examination after completed treatment for conditions other than malignant neoplasm Category: Medical (2) Ischemic colitis: Code(s): K55.9 - Vascular disorder of intestine, unspecified Category: Medical Plan: The patient was diagnosed with colonic ischemia during her hospital stay, which was managed with supportive care and monitoring. A follow-up colonoscopy was performed on 10/12/2024, showing no evidence of ischemic colitis but slight narrowing at 20 cm from the anal verge. A repeat colonoscopy is planned for further dilation of the stricture. (3) Diabetes mellitus, type II: Code(s): E11.9 - Type 2 diabetes mellitus without complications Category: Medical Plan: The patient's type 2 diabetes mellitus is managed with metformin, which she has resumed post-discharge. (4) Acute kidney injury superimposed on CKD: Code(s): N17.9 - Acute kidney failure, unspecified; N18.9 - Chronic kidney disease, unspecified Category: Medical Plan: The patient experienced acute kidney injury during hospitalization, which was addressed with appropriate interventions. (5) Alcoholic cirrhosis of liver without ascites: Code(s): K70.30 - Alcoholic cirrhosis of liver without ascites Category: Medical Plan: The patient has a history of alcoholic cirrhosis of the liver, currently stable without ascites. (6) Complete heart block: Code(s): I44.2 - Atrioventricular block, complete Category: Medical Plan: A pacemaker was placed on 10/05/2024 to address the complete heart block. (7) Pacemaker: Code(s): Z95.0 - Presence of cardiac pacemaker Category: Medical Plan: A pacemaker was placed on 10/05/2024 to address the complete heart block. (8) Acute metabolic encephalopathy: Code(s): G93.41 - Metabolic encephalopathy Category: Medical Plan: The patient was treated for acute metabolic encephalopathy during her hospital stay. (9) Acute cystitis without hematuria: Code(s): N30.00 - Acute cystitis without hematuria Category: Medical Plan: The patient was diagnosed with acute cystitis without hematuria during her hospitalization. Plan Plan Patient was informed and verbally consented to the use of an ambient scribe for clinic note documentation during this visit. 1. Colonic Ischemia The patient was diagnosed with colonic ischemia during her hospital stay, which was managed with supportive care and monitoring. A follow-up colonoscopy was performed on 10/12/2024, showing no evidence of ischemic colitis but slight narrowing at 20 cm from the anal verge. A repeat colonoscopy is planned for further dilation of the stricture. 2. Type 2 Diabetes Mellitus With Diabetic Neuropathy The patient's type 2 diabetes mellitus is managed with metformin, which she has resumed post-discharge. 3. Acute Kidney Injury The patient experienced acute kidney injury during hospitalization, which was addressed with appropriate interventions. 4. Alcoholic Cirrhosis Of Liver Without Ascites The patient has a history of alcoholic cirrhosis of the liver, currently stable without ascites. 5. Hypothyroidism The patient has a history of hypothyroidism, which is being managed appropriately. 6. complete Heart Block A pacemaker was placed on 10/05/2024 to address the complete heart block. 7. Acute Metabolic Encephalopathy The patient was treated for acute metabolic encephalopathy during her hospital stay. 8. Acute Cystitis Without Hematuria The patient was diagnosed with acute cystitis without hematuria during her hospitalization. During the visit, we discussed the patient's recent hospital discharge and the management of her multiple conditions, including colonic ischemia, type 2 diabetes mellitus, and complete heart block. We reviewed the need for a repeat colonoscopy to address the stricture and the importance of monitoring the pacemaker site for signs of infection. 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 Orders: Referrals Gastroenterology Referral Z12.11 - Encounter for screening for malignant neoplasm of colon Wound Care Referral Z95.0 - Presence of cardiac pacemaker Patient Instructions: - Keep the pacemaker incision site covered to prevent irritation and infection. - Monitor for any signs of infection, such as increased redness, swelling, or drainage, and report these to your healthcare provider. - Continue taking all prescribed medications, including metformin for diabetes management. - Follow up with your rack washer and device clinic as scheduled. - Schedule a repeat colonoscopy for further evaluation of the colonic stricture.
[2024-10-25 14:28] VITALS: BP 141/65; PULSE 89; TEMP 36.5; O2SAT 97
--- OUTSIDE RECORDS SUMMARY | 2024-10-25 16:10 | XMS_ITS | Clinical Summary ---
Author Organization [address] Address [address] [place] [phone] Phone Care Team Providers Care Wire Machine Cutter Name Role Phone Preston Wang DO Primary Care Provider Encounters Date Type Department Care Team Description 09/01/2024 Lab Requisition [facility] [address] [place] [phone] Carolina Phillips MD Sepsis, unspecified organism ([facility] V24, [facility] V28); Essential (primary) hypertension; Urinary tract infection, site not specified 08/26/2024 Lab Requisition [facility] [address] [place] [phone] Carolina Phillips MD Sepsis, unspecified organism ([facility] V24, [facility] V28); Essential (primary) hypertension; Urinary tract infection, site not specified 08/17/2024 Lab Requisition [facility] [address] [place] [phone] Carolina Phillips MD Sepsis, unspecified organism ([facility] V24, [facility] V28); Essential (primary) hypertension; Urinary tract infection, site not specified 08/10/2024 Lab Requisition [facility] [address] [place] [phone] Carolina Phillips MD Sepsis, unspecified organism ([facility] V24, [facility] V28); Essential (primary) hypertension; Urinary tract infection, site not specified; Type 2 diabetes mellitus without complications (CMS/[facility] V24, CMS/[facility] V28) 08/09/2024 Lab Requisition [facility] Lab 299 [facility] [place] [phone] Carolina Phillips MD Chronic kidney disease, unspecified; group home (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; Methemoglobinemia, unspecified; Extended spectrum beta lactamase (ESBL) resistance; Type 2 diabetes mellitus without complications ([facility] V24, [facility] V28) from Last 3 Months Social History [...] Patients (1 - 1-dose 75+ series) 2022 Depression Screening 02/08/2024 Cholesterol Screening (Lipid Panel) 08/06/2024 Falls Risk Assessment 08/06/2024 Hepatitis C Screening 08/06/2024 Medicare Annual Wellness Visit 08/06/2024 Osteoporosis Screening (Bone Density Screening) 08/06/2024 Social Influencers of Health Screening 08/06/2024 Diabetes: Annual Urine Albumin-Creatinine Ratio (uACR) 08/10/2024 COVID-19 Vaccine ( season) 2024 Influenza Vaccine (#1) 2024 Diabetes: Blood Sugar [...] 7:06 AM EDT Chronic kidney disease, unspecified 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 Methemoglobinemia, 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 Type 2 diabetes mellitus without complications (CMS/HCC V24, CMS/[facility] V28) COMPREHENSIVE METABOLIC PANEL Routine 08/09/2024 7:06 AM EDT Chronic kidney disease, unspecified 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 Methemoglobinemia, 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 Type 2 diabetes mellitus without complications (CMS/[facility] V24, CMS/[facility] V28) COMPLETE BLOOD COUNT Routine 08/09/2024 7:06 AM EDT Chronic kidney disease, unspecified group home (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 Methemoglobinemia, 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 [facility] WBC 7.1 4.8 - 10.8 K/mcL LAB HEMETOLOGY METHOD 08/27/2024 12:29 PM T [facility] RBC 3.30(L) 3.80 - 4.80 M/mcL LAB HEMETOLOGY METHOD 08/27/2024 12:29 PM [facility] Hemoglobin 9.0(L) 11.5 - 16.0 g/dL LAB HEMETOLOGY METHOD 08/27/2024 12:29 PM [facility] Hematocrit 30.5(L) 35.0 - 47.0 % LAB HEMETOLOGY METHOD 08/27/2024 12:29 PM EDT [facility] MCV 91.6 79.0 - 98.0 FL LAB HEMETOLOGY METHOD 08/27/2024 12:29 PM EDT [facility] MCH 27.0 27.0 - 32.0 pcg LAB HEMETOLOGY METHOD 08/27/2024 12:29 PM EDT [facility] MCHC 29.5(L) 32.0 - 37.0 g/dL LAB HEMETOLOGY METHOD 08/27/2024 12:29 PM EDT [facility] RDW 16.8(H) 11.0 - 15.0 % LAB HEMETOLOGY METHOD 08/27/2024 12:29 PM EDT [facility] Platelets 174 130 - 400 K/mcL LAB HEMETOLOGY METHOD 08/27/2024 12:29 PM EDT [facility] MPV 10.3 7.0 - 11.0 FL LAB HEMETOLOGY METHOD 08/27/2024 12:29 PM EDT [facility] NRBC 0.0 <1.0 % LAB HEMETOLOGY METHOD 08/27/2024 12:29 PM EDT [facility] NRBC Absolute 0.00 <0.10 K/mcL LAB HEMETOLOGY METHOD 08/27/2024 12:29 PM EDT [facility] Blood Venous blood specimen / Unknown Venipuncture / Unknown 08/27/2024 5:33 AM EDT 08/27/2024 11:39 AM EDT us Carolina Phillips MD LAB BLOOD ORDERABLES Fin al Result [facility] [address] [place] [address], * (ABNORMAL) Comprehensive metabolic panel (08/27/2024 5:33 AM EDT) Only the most recent of4 resultswithin the time period is included. Sodium 139 133 - 145 mmol/L LAB CHEMISTRY METHOD 08/27/2024 1:22 PM [facility] Potassium 3.8 3.5 - 5.5 mmol/L LAB CHEMISTRY METHOD 08/27/2024 1:22 PM [facility] Chloride 104 96 - 110 mmol/L LAB CHEMISTRY METHOD 08/27/2024 1:22 PM [facility] CO2 27 21 - 32 mmol/L LAB CHEMISTRY METHOD 08/27/2024 1:22 PM [facility] Anion Gap 8 3 - 11 LAB CHEMISTRY METHOD 08/27/2024 1:22 PM [facility] Glucose 118(H) 70 - 100 mg/dL LAB CHEMISTRY METHOD 08/27/2024 1:22 PM [facility] BUN 22 5 - 25 mg/dL LAB CHEMISTRY METHOD 08/27/2024 1:22 PM [facility] Creatinine 1.52(H) 0.50 - 1.10 mg/dL LAB CHEMISTRY METHOD 08/27/2024 1:22 PM [facility] eGFR 35(L) >=60 mL/min/1. 73m2 LAB CHEMISTRY METHOD 08/27/2024 1:22 PM [facility] Comment:Calculation based on the Chronic Kidney Disease Epidemiology Collaboration (CKD-EPI) equation refit without adjustment for race. BUN/Creatinine Ratio 14.5 LAB CHEMISTRY METHOD 08/27/2024 1:22 PM [facility] Calcium 8.6 8.5 - 10.5 mg/dL LAB CHEMISTRY METHOD 08/27/2024 1:22 PM [facility] AST (SGOT) 32 10 - 42 unit/L LAB CHEMISTRY METHOD 08/27/2024 1:22 PM [facility] ALT (SGPT) 50 10 - 60 unit/L LAB CHEMISTRY METHOD 08/27/2024 1:22 PM EDT [facility] Alkaline Phosphatase 83 42 - 121 unit/L LAB CHEMISTRY METHOD 08/27/2024 1:22 PM EDT [facility] Total Protein 6.9 6.0 - 8.0 g/dL LAB CHEMISTRY METHOD 08/27/2024 1:22 PM EDT [facility] Albumin 2.8(L) 3.2 - 5.0 g/dL LAB CHEMISTRY METHOD 08/27/2024 1:22 PM EDT [facility] Total Bilirubin 0.4 0.0 - 1.4 mg/dL LAB CHEMISTRY METHOD 08/27/2024 1:22 PM EDT [facility] Blood Venous blood specimen / Unknown Venipuncture / Unknown 08/27/2024 5:33 AM EDT 08/27/2024 11:39 AM EDT us Carolina Phillips MD LAB BLOOD ORDERABLES Fin al Result [facility] [address] [place] [address], * Hemoglobin A1c (08/09/2024 7:06 AM EDT) Hemoglobin A1C 6.1 <6.5 % LAB CHEMISTRY METHOD 08/09/2024 8:43 PM EDT [facility] Mean Bld Glu Estim. 128 mg/dL LAB CHEMISTRY METHOD 08/09/2024 8:43 PM EDT [facility] Blood Venous blood specimen / Unknown Venipuncture / Unknown 08/09/2024 7:06 AM EDT 08/09/2024 9:18 AM EDT us Carolina Phillips MD LAB BLOOD ORDERABLES Fin al Result [facility] [address] [place] [address], [place] [phone] from Last 3 Months Insurance MEDICARE [facility] Advance Directives Documents on File Type Date Recorded Patient Surgical Supplies Sterilizer Expl anation Health Care Decision (hx) 10/13/2017 BYRON ALMEIDA DIRECTIVE Care Teams Wire Machine Cutter Relationship Specialty Start Date End Date Preston Wang DO [address] [place] [phone] PCP - General Internal Medicine 09/05/17
--- OUTSIDE RECORDS SUMMARY | 2024-10-25 16:10 | XMS_ITS | Encounter Summary ---
Author Organization [facility] Address [phone] [place] [phone] Care Team Providers Care Senior Information Developer Name Role Phone Preston Wang DO Primary Care Provider [phone] Encounter Details Date Type Department Care Team (Late st Contact Info) Description 08/26/2024 Lab Requisition [facility] Lab [address] [facility] [place] [phone] Carolina Phillips MD [address] [phone] Sepsis, unspecified organism (CMS/HCC V24, CMS/HCC V28); [...] mmol/L LAB CHEMISTRY METHOD 08/27/2024 1:22 PM [facility] Potassium 3.8 3.5 - 5.5 mmol/L LAB CHEMISTRY METHOD 08/27/2024 1:22 PM [facility] Chloride 104 96 - 110 mmol/L LAB CHEMISTRY METHOD 08/27/2024 1:22 PM [facility] CO2 27 21 - 32 mmol/L LAB CHEMISTRY METHOD 08/27/2024 1:22 PM [facility] Anion Gap 8 3 - 11 LAB CHEMISTRY METHOD 08/27/2024 1:22 PM [facility] Glucose 118(H) 70 - 100 mg/dL LAB CHEMISTRY METHOD 08/27/2024 1:22 PM [facility] BUN 22 5 - 25 mg/dL LAB CHEMISTRY METHOD 08/27/2024 1:22 PM [facility] Creatinine 1.52(H) 0.50 - 1.10 mg/dL LAB CHEMISTRY METHOD 08/27/2024 1:22 PM [facility] eGFR 35(L) >=60 mL/min/1. 73m2 LAB CHEMISTRY METHOD 08/27/2024 1:22 PM [facility] Comment:Calculation based on the Chronic Kidney Disease Epidemiology Collaboration (CKD-EPI) equation refit without adjustment for race. BUN/Creatinine Ratio 14.5 LAB CHEMISTRY METHOD 08/27/2024 1:22 PM [facility] Calcium 8.6 8.5 - 10.5 mg/dL LAB CHEMISTRY METHOD 08/27/2024 1:22 PM [facility] AST (SGOT) 32 10 - 42 unit/L LAB CHEMISTRY METHOD 08/27/2024 1:22 PM [facility] ALT (SGPT) 50 10 - 60 unit/L LAB CHEMISTRY METHOD 08/27/2024 1:[address] [facility] Alkaline Phosphatase 83 42 - 121 unit/L LAB CHEMISTRY METHOD 08/27/2024 1:22 PM [facility] Total Protein 6.9 6.0 - 8.0 g/dL LAB CHEMISTRY METHOD 08/27/2024 1:22 PM [facility] Albumin 2.8(L) 3.2 - 5.0 g/dL LAB CHEMISTRY METHOD 08/27/2024 1:22 PM [facility] Total Bilirubin 0.4 0.0 - 1.4 mg/dL LAB CHEMISTRY METHOD 08/27/2024 1:22 PM [facility] Blood Venous blood specimen / Unknown Venipuncture / Unknown 08/27/2024 5:33 AM EDT 08/27/2024 11:39 AM EDT Carolina Phillips MD LAB BLOOD ORDERABLES Fin al Result [facility] [address] [place] [address], [place] [phone] * (ABNORMAL) Complete blood count (08/27/2024 5:33 AM EDT) WBC 7.1 4.8 - 10.8 K/mcL LAB HEMETOLOGY METHOD 08/27/2024 12:29 PM [facility] RBC 3.30(L) 3.80 - 4.80 M/mcL LAB HEMETOLOGY METHOD 08/27/2024 12:29 PM [facility] Hemoglobin 9.0(L) 11.5 - 16.0 g/dL LAB HEMETOLOGY METHOD 08/27/2024 12:29 PM [facility] Hematocrit 30.5(L) 35.0 - 47.0 % LAB HEMETOLOGY METHOD 08/27/2024 12:[address] [facility] MCV 91.6 79.0 - 98.0 FL LAB HEMETOLOGY METHOD 08/27/2024 12:[address] [facility] MCH 27.0 27.0 - 32.0 pcg LAB HEMETOLOGY METHOD 08/27/2024 12:[address] [facility] MCHC 29.5(L) 32.0 - 37.0 g/dL LAB HEMETOLOGY METHOD 08/27/2024 12:[address] [facility] RDW 16.8(H) 11.0 - 15.0 % LAB HEMETOLOGY METHOD 08/27/2024 12:[address] [facility] Platelets 174 130 - 400 K/mcL LAB HEMETOLOGY METHOD 08/27/2024 12:[address] [facility] MPV 10.3 7.0 - 11.0 FL LAB HEMETOLOGY METHOD 08/27/2024 12:[address] [facility] NRBC 0.0 <1.0 % LAB HEMETOLOGY METHOD 08/27/2024 12:[address] [facility] NRBC Absolute 0.00 <0.10 K/mcL LAB HEMETOLOGY METHOD 08/27/2024 12:[address] [facility] Blood Venous blood specimen / Unknown Venipuncture / Unknown 08/27/2024 5:33 AM EDT 08/27/2024 11:39 AM EDT us Carolina Phillips MD LAB BLOOD ORDERABLES Fin al Result [facility] [address] [place] [address], documented in this encounter Visit Diagnoses Diagnosis Sepsis, unspecified organism (CMS/HCC V24, CMS/HCC V28) Essential (primary) hypertension Unspecified essential hypertension Urinary tract infection, site not specified documented in this encounter Care Teams Senior Information Developer Relationship Specialty Start Date End Date Preston Wang DO [address] [place] [phone] PCP - General Internal Medicine 09/05/17 documented as of this encounter
--- OUTSIDE RECORDS SUMMARY | 2024-10-25 16:10 | XMS_ITS | Encounter Summary ---
Author Organization [facility] Address [address] [place] [phone] Care Team Providers Care Loans Consultant Name Role Phone Preston Wang DO Primary Care Provider [phone] Encounter Details Date Type Department Care Team (Late st Contact Info) Description 08/09/[address] 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 (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; Methemoglobinemia, unspecified; Extended spectrum beta lactamase (ESBL) resistance; Type 2 diabetes mellitus without complications (CMS/[facility] V24, CMS/[facility] V28) Social History Tobacco Use Types Packs/Day [...] 7:06 AM EDT Chronic kidney disease, unspecified supervisor 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s (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 Methemoglobinemia, 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 Type 2 diabetes mellitus without complications (CMS/HCC V24, CMS/[facility] V28) HEMOGLOBIN A1C Routine 08/09/2024 7:06 AM EDT Chronic kidney disease, unspecified shelter (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 Methemoglobinemia, 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 Type 2 diabetes mellitus without complications (CMS/HCC V24, CMS/HCC V28) COMPREHENSIVE METABOLIC PANEL Routine 08/09/2024 7:06 AM EDT Chronic kidney disease, unspecified shelter (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 Methemoglobinemia, 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 128 mg/dL LAB CHEMISTRY METHOD 08/09/2024 8:43 PM EDT [facility] Blood Venous blood specimen / Unknown Venipuncture / Unknown 08/09/2024 7:06 AM EDT 08/09/2024 9:18 AM EDT us Carolina Phillips MD LAB BLOOD ORDERABLES Fin al Result [facility] [address] [place] [address], * (ABNORMAL) Comprehensive metabolic panel (08/09/2024 7:06 AM EDT) [facility] Sodium 139 133 - 145 mmol/L LAB CHEMISTRY METHOD 08/09/2024 11:08 AM EDT [facility] Potassium 3.9 3.5 - 5.5 mmol/L LAB CHEMISTRY METHOD 08/09/2024 11:08 AM EDT [facility] Chloride 104 96 - 110 mmol/L LAB CHEMISTRY METHOD 08/09/2024 11:08 AM EDT [facility] CO2 31 21 - 32 mmol/L LAB CHEMISTRY METHOD 08/09/2024 11:08 AM EDT [facility] Anion Gap 4 3 - 11 LAB CHEMISTRY METHOD 08/09/2024 11:08 AM [facility] Glucose 78 70 - 100 mg/dL LAB CHEMISTRY METHOD 08/09/2024 11:08 AM [facility] BUN 10 5 - 25 mg/dL LAB CHEMISTRY METHOD 08/09/2024 11:08 AM [facility] Creatinine 1.16(H) 0.50 - 1.10 mg/dL LAB CHEMISTRY METHOD 08/09/2024 11:08 AM [facility] eGFR 49(L) >=60 mL/min/1. 73m2 LAB CHEMISTRY METHOD 08/09/2024 11:08 AM [facility] Comment:Calculation based on the Chronic Kidney Disease Epidemiology Collaboration (CKD-EPI) equation refit without adjustment for race. BUN/Creatinine Ratio 8.6 LAB CHEMISTRY METHOD 08/09/2024 11:08 AM [facility] Calcium 8.1(L) 8.5 - 10.5 mg/dL LAB CHEMISTRY METHOD 08/09/2024 11:08 AM [facility] AST (SGOT) 36 10 - 42 unit/L LAB CHEMISTRY METHOD 08/09/2024 11:08 AM [facility] ALT (SGPT) 37 10 - 60 unit/L LAB CHEMISTRY METHOD 08/09/2024 11:08 AM [facility] Alkaline Phosphatase 74 42 - 121 unit/L LAB CHEMISTRY METHOD 08/09/2024 11:08 AM [facility] Total Protein 5.9(L) 6.0 - 8.0 g/dL LAB CHEMISTRY METHOD 08/09/2024 11:08 AM [facility] Albumin 2.2(L) 3.2 - 5.0 g/dL LAB CHEMISTRY METHOD 08/09/2024 11:08 AM [facility] Total Bilirubin 0.2 0.0 - 1.4 mg/dL LAB CHEMISTRY METHOD 08/09/2024 11:08 AM T [facility] Blood Venous blood specimen / Unknown Venipuncture / Unknown 08/09/2024 7:06 AM EDT 08/09/2024 9:18 AM EDT us Carolina Phillips MD LAB BLOOD ORDERABLES Fin al Result [facility] [address] [place] [address], * (ABNORMAL) Complete blood count (08/09/2024 7:06 AM EDT) WBC 7.7 4.8 - 10.8 K/mcL LAB HEMETOLOGY METHOD 08/09/2024 10:33 AM [facility] RBC 3.20(L) 3.80 - 4.80 M/mcL LAB HEMETOLOGY METHOD 08/09/2024 10:33 AM [facility] Hemoglobin 8.5(L) 11.5 - 16.0 g/dL LAB HEMETOLOGY METHOD 08/09/2024 10:33 AM [facility] Hematocrit 27.9(L) 35.0 - 47.0 % LAB HEMETOLOGY METHOD 08/09/2024 10:33 AM [facility] MCV 88.6 79.0 - 98.0 FL LAB HEMETOLOGY METHOD 08/09/2024 10:33 AM [facility] MCH 27.0 27.0 - 32.0 pcg LAB HEMETOLOGY METHOD 08/09/2024 10:33 AM [facility] MCHC 30.5(L) 32.0 - 37.0 g/dL LAB HEMETOLOGY METHOD 08/09/2024 10:33 AM [facility] RDW 17.2(H) 11.0 - 15.0 % LAB HEMETOLOGY METHOD 08/09/2024 10:33 AM EDT [facility] Platelets 275 130 - 400 K/mcL LAB HEMETOLOGY METHOD 08/09/2024 10:33 AM EDT [facility] MPV 9.6 7.0 - 11.0 FL LAB HEMETOLOGY METHOD 08/09/2024 10:33 AM EDT [facility] NRBC 0.0 <1.0 % LAB HEMETOLOGY METHOD 08/09/2024 10:33 AM EDT [facility] NRBC Absolute 0.00 <0.10 K/mcL LAB HEMETOLOGY METHOD 08/09/2024 10:33 AM EDT [facility] Blood Venous blood specimen / Unknown Venipuncture / Unknown 08/09/2024 7:06 AM EDT 08/09/2024 9:18 AM EDT us Carolina Phillips MD LAB BLOOD ORDERABLES Fin al Result [facility] [address] [place] [address], documented in this encounter Visit Diagnoses Diagnosis Chronic kidney disease, unspecified supervisor 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s (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 Methemoglobinemia, 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
--- OUTSIDE RECORDS SUMMARY | 2024-10-25 16:10 | XMS_ITS | Clinical Summary ---
Author Organization [facility] Address [address] [place] [phone] Phone Care Team Providers Care Ticket Printer And Tagger Name Role Phone Pcp, Unknown Primary Care [...] file Insurance MEDICARE PART A & B [employer] SUPPLEMENT MEDICARE PART A & B [employer] MEDEX SUPPLEMENT MEDICARE PART A & B [employer] MED[employer] SUPPLEMENT MEDICARE PART A & B [facility] MEDEX SUPPLEMENT MEDICARE PART A & B [employer] MEDEX SUPPLEMENT MEDICARE PART A & B [employer] MEDEX SUPPLEMENT Care Teams Ticket Printer And Tagger Relationship Specialty Start Date End Date Pcp, Unknown PCP - General 04/27/24 Additional Source Comments The information contained in this document represents components of the legal health record. It is not the complete legal health record.[facility]
--- OUTSIDE RECORDS SUMMARY | 2024-10-25 16:10 | XMS_ITS | Encounter Summary ---
Author Organization [facility] Address [address] [place] [phone] Care Team Providers Care Forepart Reducer Name Role Phone Preston Wang DO Primary Care Provider [phone] Encounter Details Date Type Department Care Team (Late st Contact Info) Description 09/01/2024 Lab Requisition [facility] - Main Lab 299 [facility] [place] [address] Carolina Phillips MD [address] [phone] Sepsis, unspecified organism (CMS/HCC V24, CMS/[facility] V28); Essential (primary) hypertension; Urinary tract infection, [...] Diagnoses Diagnosis Sepsis, unspecified organism (CMS/HCC V24, CMS/[facility] V28) Essential (primary) hypertension Unspecified essential hypertension Urinary tract infection, site not specified documented in this encounter Care Teams Forepart Reducer Relationship Specialty Start Date End Date Preston Wang DO [address] [place] [phone] PCP - General Internal Medicine 09/05/17 documented as of this encounter
--- OUTSIDE RECORDS SUMMARY | 2024-10-25 16:10 | XMS_ITS | Encounter Summary ---
Author Organization [facility] Address [address] [place] [phone] Care Team Providers Care Nutrition Partner Name Role Phone Preston Wang DO Primary Care Provider [phone] Encounter Details Date Type Department Care Team (Late st Contact Info) Description 08/10/2024 Lab Requisition [facility] - Main Lab [address] [facility] [place] [address] Carolina Phillips MD [address] [address] Sepsis, unspecified organism (CMS/HCC V24, [...] 2 diabetes mellitus without complications (CMS/HCC V24, [facility] V28) documented in this encounter Results * (ABNORMAL) Comprehensive metabolic panel (08/13/2024 6:34 AM EDT) Sodium 136 133 - 145 mmol/L LAB CHEMISTRY METHOD 08/13/2024 1:13 PM [facility] Potassium 4.4 3.5 - 5.5 mmol/L LAB CHEMISTRY METHOD 08/13/2024 1:13 PM [facility] Chloride 100 96 - 110 mmol/L LAB CHEMISTRY METHOD 08/13/2024 1:13 PM [facility] CO2 31 21 - 32 mmol/L LAB CHEMISTRY METHOD 08/13/2024 1:13 PM [facility] Anion Gap 5 3 - 11 LAB CHEMISTRY METHOD 08/13/2024 1:13 PM [facility] Glucose 71 70 - 100 mg/dL LAB CHEMISTRY METHOD 08/13/2024 1:13 PM [facility] BUN 18 5 - 25 mg/dL LAB CHEMISTRY METHOD 08/13/2024 1:13 PM [facility] Creatinine 1.44(H) 0.50 - 1.10 mg/dL LAB CHEMISTRY METHOD 08/13/2024 1:13 PM [facility] eGFR 38(L) >=60 mL/min/1. 73m2 LAB CHEMISTRY METHOD 08/13/2024 1:13 PM [facility] Comment:Calculation based on the Chronic Kidney Disease Epidemiology Collaboration (CKD-EPI) equation refit without adjustment for race. BUN/Creatinine Ratio 12.5 LAB CHEMISTRY METHOD 08/13/2024 1:13 PM [facility] Calcium 8.8 8.5 - 10.5 mg/dL LAB CHEMISTRY METHOD 08/13/2024 1:13 PM [facility] AST (SGOT) 41 10 - 42 unit/L LAB CHEMISTRY METHOD 08/13/2024 1:13 PM EDT [facility] ALT (SGPT) 36 10 - 60 unit/L LAB CHEMISTRY METHOD 08/13/2024 1:13 PM EDT [facility] Alkaline Phosphatase 70 42 - 121 unit/L LAB CHEMISTRY METHOD 08/13/2024 1:13 PM EDT [facility] Total Protein 7.1 6.0 - 8.0 g/dL LAB CHEMISTRY METHOD 08/13/2024 1:13 PM EDT [facility] Albumin 2.6(L) 3.2 - 5.0 g/dL LAB CHEMISTRY METHOD 08/13/2024 1:13 PM EDT [facility] Total Bilirubin 0.6 0.0 - 1.4 mg/dL LAB CHEMISTRY METHOD 08/13/2024 1:13 PM EDT [facility] Blood Venous blood specimen / Unknown Venipuncture / Unknown 08/13/2024 6:34 AM EDT 08/13/2024 11:49 AM EDT us Carolina Phillips MD LAB BLOOD ORDERABLES Fin al Result [facility] [address] [place] [address], * (ABNORMAL) Complete blood count (08/13/2024 6:34 AM EDT) WBC 8.9 4.8 - 10.8 K/mcL LAB HEMETOLOGY METHOD 08/13/2024 1:07 PM EDT [facility] RBC 3.40(L) 3.80 - 4.80 M/mcL LAB HEMETOLOGY METHOD 08/13/2024 1:07 PM EDT [facility] Hemoglobin 8.9(L) 11.5 - 16.0 g/dL LAB HEMETOLOGY METHOD 08/13/2024 1:07 PM [facility] Hematocrit 30.2(L) 35.0 - 47.0 % LAB HEMETOLOGY METHOD 08/13/2024 1:07 PM EDT [facility] MCV 88.8 79.0 - 98.0 FL LAB HEMETOLOGY METHOD [facility] MCH 26.2(L) 27.0 - 32.0 pcg LAB HEMETOLOGY METHOD 08/13/2024 1:07 PM EDT [facility] MCHC 29.5(L) 32.0 - 37.0 g/dL LAB HEMETOLOGY METHOD 08/13/2024 1:07 PM [facility] RDW 17.2(H) 11.0 - 15.0 % LAB HEMETOLOGY METHOD 08/13[facility]2024 [facility] Platelets 276 130 - 400 K/mcL LAB HEMETOLOGY METHOD 08/13/2024 1:07 [facility] MPV 9.2 7.0 - 11.0 FL LAB HEMETOLOGY METHOD 08/13/2024 1:07 [facility] NRBC 0.0 <1.0 % LAB HEMETOLOGY METHOD 08/13/2024 1:07 [facility] NRBC Absolute 0.00 <0.10 K/mcL LAB HEMETOLOGY METHOD 08/13/2024 1:07 PM [facility] Blood Venous blood specimen / Unknown Venipuncture / Unknown 08/13/2024 6:34 AM EDT 08/13/2024 11:49 AM EDT us Carolina Phillips MD LAB BLOOD ORDERABLES Fin al Result [facility] [address] [place] [address], documented in this encounter Visit Diagnoses Diagnosis Sepsis, unspecified organism ([facility] V24, [facility] V28) Essential (primary) hypertension Unspecified essential hypertension Urinary tract infection, site not specified Type 2 diabetes mellitus without complications ([facility] V24, [facility] V28) documented in this encounter Care Teams Nutrition Partner Relationship Specialty Start Date End Date Preston Wang DO [address] [place] [phone] PCP - General Internal Medicine 09/05/17 documented as of this encounter
--- OUTSIDE RECORDS SUMMARY | 2024-10-25 16:10 | XMS_ITS | Encounter Summary ---
Author Organization [facility] Address [address] [place] [phone] Care Team Providers Care Waistband Setter Name Role Phone Preston Wang DO Primary Care Provider [phone] Encounter Details Date Type Department Care Team (Late st Contact Info) Description 08/17/2024 Lab Requisition [facility] - Main Lab [address] [facility] [place] [address] Carolina Phillips MD [address] [id number] Sepsis, unspecified organism (CMS/HCC V24, CMS/HCC V28); [...] LAB CHEMISTRY METHOD 08/20/2024 3:08 PM [facility] Potassium 3.7 3.5 - 5.5 mmol/L LAB CHEMISTRY METHOD 08/20/2024 3:08 PM [facility] Chloride 106 96 - 110 mmol/L LAB CHEMISTRY METHOD 08/20/2024 3:08 PM [facility] CO2 25 21 - 32 mmol/L LAB CHEMISTRY METHOD 08/20/2024 3:08 PM [facility] Anion Gap 9 3 - 11 LAB CHEMISTRY METHOD 08/20/2024 3:08 PM [facility] Glucose 171(H) 70 - 100 mg/dL LAB CHEMISTRY METHOD 08/20/2024 3:08 PM [facility] BUN 22 5 - 25 mg/dL LAB CHEMISTRY METHOD 08/20/2024 3:08 PM [facility] Creatinine 1.39(H) 0.50 - 1.10 mg/dL LAB CHEMISTRY METHOD 08/20/2024 3:08 PM [facility] eGFR 39(L) >=60 mL/min/1. 73m2 LAB CHEMISTRY METHOD 08/20/2024 3:08 PM [facility] Comment:Calculation based on the Chronic Kidney Disease Epidemiology Collaboration (CKD-EPI) equation refit without adjustment for race. BUN/Creatinine Ratio 15.8 LAB CHEMISTRY METHOD 08/20/2024 3:08 PM [facility] Calcium 8.8 8.5 - 10.5 mg/dL LAB CHEMISTRY METHOD 08/20/2024 3:08 PM [facility] AST (SGOT) 52(H) 10 - 42 unit/L LAB CHEMISTRY METHOD 08/20/2024 3:08 PM [facility] ALT (SGPT) 60 10 - 60 unit/L LAB CHEMISTRY METHOD 08/20/2024 3:08 PM EDT [facility] Alkaline Phosphatase 83 42 - 121 unit/L LAB CHEMISTRY METHOD 08/20/2024 3:08 PM T [facility] Total Protein 7.0 6.0 - 8.0 g/dL LAB CHEMISTRY METHOD 08/20/2024 3:08 PM [facility] Albumin 2.8(L) 3.2 - 5.0 g/dL LAB CHEMISTRY METHOD 08/20/2024 3:08 PM [facility] Total Bilirubin 0.4 0.0 - 1.4 mg/dL LAB CHEMISTRY METHOD 08/20/2024 3:08 PM [facility] Blood Venous blood specimen / Unknown Venipuncture / Unknown 08/20/2024 5:33 AM EDT 08/20/2024 10:27 AM EDT us Carolina Phillips MD LAB BLOOD ORDERABLES Fin al Result [facility] [address] [place] [address], * (ABNORMAL) Complete blood count (08/20/2024 5:33 AM EDT) WBC 6.0 4.8 - 10.8 K/mcL LAB HEMETOLOGY METHOD 08/20/2024 11:45 AM EDT [facility] RBC 3.40(L) 3.80 - 4.80 M/mcL LAB HEMETOLOGY METHOD 08/20/2024 11:45 AM EDT [facility] Hemoglobin 9.1(L) 11.5 - 16.0 g/dL LAB HEMETOLOGY METHOD 08/20/2024 11:45 AM [facility] Hematocrit 30.8(L) 35.0 - 47.0 % LAB HEMETOLOGY METHOD 08/20/2024 11:45 AM EDT [facility] MCV 91.1 79.0 - 98.0 FL LAB HEMETOLOGY METHOD 08/20/2024 11:45 AM EDT [facility] MCH 26.9(L) 27.0 - 32.0 pcg LAB HEMETOLOGY METHOD 08/20/2024 11:45 AM EDT [facility] MCHC 29.5(L) 32.0 - 37.0 g/dL LAB HEMETOLOGY METHOD 08/20/2024 11:45 AM EDT [facility] RDW 16.8(H) 11.0 - 15.0 % LAB HEMETOLOGY METHOD 08/20/2024 11:45 AM EDT [facility] Platelets 200 130 - 400 K/mcL LAB HEMETOLOGY METHOD 08/20/2024 11:45 AM EDT [facility] MPV 10.1 7.0 - 11.0 FL LAB HEMETOLOGY METHOD 08/20/2024 11:45 AM EDT [facility] NRBC 0.0 <1.0 % LAB HEMETOLOGY METHOD 08/20/2024 11:45 AM EDT [facility] NRBC Absolute 0.00 <0.10 K/mcL LAB HEMETOLOGY METHOD 08/20/2024 11:45 AM T [facility] Blood Venous blood specimen / Unknown Venipuncture / Unknown 08/20/2024 5:33 AM EDT 08/20/2024 10:22 AM EDT us Carolina Phillips MD LAB BLOOD ORDERABLES Fin al Result [facility] [address] [place] [address], documented in this encounter Visit Diagnoses Diagnosis Sepsis, unspecified organism (CMS/HCC V24, CMS/[facility] V28) Essential (primary) hypertension Unspecified essential hypertension Urinary tract infection, site not specified documented in this encounter Care Teams Waistband Setter Relationship Specialty Start Date End Date Preston Wang DO [address] [place] [phone] PCP - General Internal Medicine 09/05/17 documented as of this encounter
== END 2024-10-25 15:09 | disposition home or self-care (01) ==
LOC: HO.HMCSH 14:21
PROVIDERS: PCP Internal Medicine; Visit Provider Physician Assistant Medical
DX: K55.9 Vascular disorder of intestine, unspecified (principal); E11.9 Type 2 diabetes mellitus without complications; N17.9 Acute kidney failure, unspecified; N18.9 Chronic kidney disease, unspecified; K70.30 Alcoholic cirrhosis of liver without ascites; I44.2 Atrioventricular block, complete; Z95.0 Presence of cardiac pacemaker; G93.41 Metabolic encephalopathy; N30.00 Acute cystitis without hematuria

== ENCOUNTER → 2024-10-25 14:21 | Outpatient (BNVA) | payer MEDICARE, SELFPAY | PROVIDERS: PCP Internal Medicine; Visit Provider Physician Assistant Medical | DX: Z09 Encounter for follow-up examination after completed treatment for conditions other than malignant neoplasm (principal); K55.9 Vascular disorder of intestine, unspecified; E11.22 Type 2 diabetes mellitus with diabetic chronic kidney disease; N18.9 Chronic kidney disease, unspecified; N17.9 Acute kidney failure, unspecified; K70.30 Alcoholic cirrhosis of liver without ascites; I44.2 Atrioventricular block, complete; G93.41 Metabolic encephalopathy; N30.00 Acute cystitis without hematuria; Z79.4 Long term (current) use of insulin; Z95.0 Presence of cardiac pacemaker; Z79.899 Other long term (current) drug therapy | CPT/HCPCS: 96127; 99212 ==

== ENCOUNTER 2024-12-25 11:00 | Outpatient (AMB) | payer MEDICARE, SELFPAY ==
[2024-12-25 11:04] VITALS: BP 117/55; PULSE 80; RESP 14; TEMP 36.3; O2SAT 97; BMI 38.0
--- NOTE | 2024-12-25 11:04 | A.OFFPC_ITS ---
Vital Signs 12/25/24 11:04 Height 5 ft 1 in Weight 201 lb BMI 38.0 BP 117/55 L Blood Pressure Location Lt brachial Position Sitting Respiration 14 Pulse 80 Pulse Source Pulse Oximeter Temp 97.3 F Temp Source Temporal Artery Scan Pulse Oximetry (%) 97 Oxygen Delivery Method Room Air Intake Visit Reasons: 2 month fu Soft Mud Molder Required: No Accompanied by: Spouse Allergies chlorpheniramine (From TUSSIONEX) Allergy (Severe, Verified 12/25/24 11:29) HALLUCINATIONS ciprofloxacin (From CIPRO) Allergy (Severe, Verified 12/25/24 11:29) ANAPHYLAXIS escitalopram (ESCITALOPRAM) Allergy (Severe, Verified 12/25/24 11:29) DISSOCIATIVE REACTION fluoxetine (FLUOXETINE) Allergy (Severe, Verified 12/25/24 11:29) DISSOCIATIVE REACTION hydrocodone (From TUSSIONEX) Allergy (Severe, Verified 12/25/24 11:29) HALLUCINATIONS ibuprofen (IBUPROFEN) Allergy (Severe, Verified 12/25/24 11:29) THROAT SWELLING Sulfa (Sulfonamide Antibiotics) (SULFA (SULFONAMIDE ANTIBIOTICS)) Allergy (Severe, Verified 12/25/24 11:29) DYSPNEA clarithromycin (From BIAXIN) Allergy (Intermediate, Verified 12/25/24 11:29) ABD.PAIN duloxetine (DULOXETINE) Allergy (Intermediate, Verified 12/25/24 11:29) FACIAL NUMBNESS erythromycin base (ERYTHROMYCIN BASE) Allergy (Intermediate, Verified 12/25/24 11:29) RASH Penicillins (PENICILLINS) Allergy (Intermediate, Verified 12/25/24 11:29) RASH tetracycline (TETRACYCLINE) Allergy (Intermediate, Verified 12/25/24 11:29) DIARRHEA codeine (CODEINE) Allergy (Unknown, Verified 12/25/24 11:29) TINNITIS guaifenesin Allergy (Unknown, Verified 12/25/24 11:29) Unknown levofloxacin (From Levaquin) Allergy (Unknown, Verified 12/25/24 11:29) Unknown pregabalin Allergy (Unknown, Verified 12/25/24 11:29) Unknown Medication List - Last Reconciled 12/25/24 by Margarita Powell PA-C acetaminophen 1,000 mg PO Q6H PRN ascorbic acid (vitamin C) 1,000 mg PO DAILY@1500 atorvastatin 10 mg PO DAILY@1500 chair, wheel (Wheel chair) As directed; Manual 20 inch travel wheelchair with seat cushion and foot rests; Height 5ft 1.25 inches; Weight 191 lbs; ; QUANTITY OF 1; length of need 99 cholecalciferol (vitamin D3) 50 mcg (2 x 25 mcg (1,000 unit)) PO DAILY ferrous sulfate 325 mg PO DAILY@1500 levothyroxine 112 mcg PO DAILY@0600 metformin ER 500 mg PO DAILY@1700 pyridoxine (vitamin B6) 100 mg PO DAILY@1500 tramadol 50 mg PO DAILY@1500 PRN trimethoprim 100 mg PO DAILY@1500 Tobacco use date assessed: 10/25/24 Dental Screening Dental Screen Date: 10/25/24 HPI HPI Comments History of Present Illness Details History of Present Illness The patient is a 79-year-old female presenting for a follow-up visit for chronic disease management. Her HbA1c today is 5.5%, which is a significant improvement from a level of 10.2% in 2020. She is currently taking metformin 500 mg once daily. The patient is followed by a urologist, Dr. Reis, for kidney-related issues and has an upcoming kidney ultrasound scheduled. She is on a chronic low-dose antibiotic, Bactrim, to prevent recurrent UTIs. The patient reports having tramadol and hydrocodone at home, which she takes infrequently only for severe pain. She mentions she does not like the feeling of being high. Other medications include atorvastatin, vitamin C, vitamin D, iron supplements, and levothyroxine. She was due for her annual physical in February. Social History - Nutrition: The patient reports eating better and has lost weight, but is not on a specific diet. Results - Lab: HbA1c is 5.5%. [facility] Medical History (Updated 12/25/24 @ 13:06 by Margarita Powell PA-C) Healthcare maintenance Recurrent UTI Type 2 diabetes mellitus with hemoglobin A1c goal of less than 7.0% Chronic pain Acute cystitis without hematuria Acute metabolic encephalopathy Acute kidney injury superimposed on CKD Alcoholic cirrhosis of liver without ascites Pacemaker UTI (urinary tract infection) Urinary tract infection due to ESBL Klebsiella Anemia Mechanical complication of urethral stent Blood per rectum Dysuria Abscess Hospital discharge follow-up Generalized abdominal pain Encounter for wheelchair assessment Diverticular disease Major depressive disorder Heel spur Chronic low back pain Uterine cancer Hyperthyroidism Weakness of both lower extremities Hydroureteronephrosis Wound infection Open wound of back, complicated Cellulitis Frequency of urination Vaginal burning Vaginal itching PMB (postmenopausal bleeding) Cirrhosis of liver Does mobilize using walker PONV (postoperative nausea and vomiting) Left foot drop Fatty liver Fibromyalgia Neuropathy RBBB Cholelithiasis Staghorn calculus Renal calculus, bilateral Renal calyceal dilation determined by ultrasound Diabetes mellitus, type II Ganglion cyst Plantar fasciitis Anxiety OA (osteoarthritis) Obstructive airway disease Hypercholesterolemia Low back pain Sciatica Hypothyroidism HTN (hypertension) Primary osteoarthritis of right knee Retained ureteral stent Renal stones Staghorn calculus Perirectal abscess Surgical History History of colostomy reversal (02/20/24) History of colectomy (~10/06/23) Status post cystoscopy with ureteral stent placement History of lumbar discectomy History of lumpectomy of both breasts History of cystoscopy History of lithotripsy Hx of colonoscopy (~04/28/23) History of surgery Family History Father Alcohol dependence Mother CHF (congestive heart failure) Cancer of breast Mother No problems noted. Other Alcoholic cirrhosis Substance use disorder Social History Household Members: Spouse Housing: House Are you a primary chiropractic care to a significant other at home: No Do you presently have visiting nurse or other home services: No 75 years or older and lives alone: No Alcohol intake: current Alcohol intake frequency: does not drink Alcohol type: hard liquor Comment: wheelchair for long distances Patient Tobacco Use Status: Former Tobacco user Tobacco use type: Cigarette Years Smoked: 27 e-Cigarette/Vaping Use: Never Used Second Hand Smoke Exposure: No Advance Directives Date on File: 04/06/21 service: No Current occupational status: disabled Cognitive needs: Yes (wheelchair) Hearing needs: No Vision needs: Yes (Glasses) Questionnaire PHQ-9 Over the last 2 weeks, how often have you been bothered by any of the following problems? 1. Little interest or pleasure in doing things: not at all 2. Feeling down, depressed, or hopeless: not at all 3. Trouble falling or staying asleep, or sleeping too much: not at all 4. Feeling tired or having little energy: not at all 5. Poor appetite or overeating: not at all 6. Feeling bad about yourself - or that you are a failure or have let yourself or your family down: not at all 7. Trouble concentrating on things, such as reading the newspaper or watching television: not at all 8. Moving or speaking so slowly that other people could have noticed. Or the opposite - being so fidgety or restless that you have been moving around a lot more than usual: not at all 9. Thoughts that you would be better off or of hurting yourself in some way: not at all Total score: 0 Depression Screening Interpretation: Negative Depression Screening Done: Yes 51999 - PHQ-9 Billing: Yes Source: Developed by Drs. Preston Aponte, Jojo Holland, Subhash Richmond and colleagues, with an educational vernon from [employer]. Thrive Questionnaire Date Thrive assessed: 10/04/24 I am a: Patient What is your living situation today?: I have a steady place to live Within the past 12 months, did the food you bought not last and you didn't have the money to get more?: Never true Within the past 12 months, did you worry whether your food would run out before you got money to buy more?: Never true Do you have trouble paying for medicines?: No Do you have trouble getting transportation to medical appointments?: No Do you have trouble paying your heating and electricity bill?: No Do you have trouble taking care of your child, family member or friend?: No Do you have trouble with day-to-day activities such as bathing, preparing meals, shopping, managing finances, etc.?: No Are you currently unemployed and looking for a job?: No Are you interested in more education?: No Please select the resources that you would like help with: None THRIVE Score: 0 AUDIT C Alcohol Use Questionnaire (AUDIT-C) 1. How often do you have a drink containing alcohol?: Never 3. How often do you have six or more drinks on one occasion?: Never Total Score: 0 Score Reviewed/Action Taken: No RAMONE-7 AMB Questionnaire RAMONE-7 Date RAMONE - 7 assessed: 06/12/24 Feeling nervous, anxious, or on edge: 0 = Not at all Not being able to stop or control worryin = Not at all Worrying too much about different things: 0 = Not at all Trouble relaxin = Not at all Being so restless that it is hard to sit still: 0 = Not at all Becoming easily annoyed or irritable: 0 = Not at all Feeling afraid as if something awful might happen: 0 = Not at all Total RAMONE-7 score (0-4 normal; 5-9 mild; 10-14 moderate; 15-21 severe): 0 Source: Developed by Drs. Preston Aponte, Jojo Holland, Subhash Richmond and colleagues, with an educational vernon from [employer]. RAMONE-7 Assessment Billing RAMONE-7 Assessment Tool: RAMONE-7 Assessment 01655 Review of Systems Narrative Review of Systems - Genitourinary: Denies current symptoms of a urinary tract infection. - Musculoskeletal: Reports occasional severe pain, for which she takes tramadol as needed. Const All systems reviewed & are unremarkable except as noted in HPI and below Physical exam (Primary Care) Vital Signs: Last Vital Signs Temp 97.3 F 12/25/24 11:04 Pulse 80 12/25/24 11:04 Resp 14 12/25/24 11:04 BP 117/55 L 12/25/24 11:04 Pulse Ox 97 12/25/24 11:04 Oxygen Delivery Method Room Air 12/25/24 11:04 Care Plan Goal for BP management: <140/90 at Goal BMI result Body Mass Index 38.0 BMI Assessment/Plan discussion: High BMI High, discussed plan: lifestyle, weight reduction, dietary, physical activity, alcohol moderation and other Tobacco/Smoking Status: Tobacco use Status Tobacco use date assessed 10/25/24 12/25/24 11:05 Patient Tobacco Use Status Former Tobacco user 12/25/24 11:05 Tobacco use type Cigarette 12/25/24 11:05 e-Cigarette/Vaping Use Never Used 12/25/24 11:05 PHQ-9: PHQ-9 Score PHQ-9: Total score 0 12/25/24 11:32 Depression Screening Interpretation: Negative Thrive Assessment: Date of Thrive Assessment Date Thrive assessed 10/04/24 12/25/24 11:05 Narrative Physical Exam Appearance: Alert. Oriented X3. No acute distress. Head: Normal external exam. Normocephalic. Atraumatic. Eyes: Pupils are equal, round, and reactive to light. Extraocular movements intact. Conjunctiva and sclera normal. Eyelids normal. Throat: Pharynx normal. Uvula midline. Moist mucous membranes. Neck: Normal inspection. Neck supple. Full range of motion Cardiovascular: Normal heart rate and rhythm. Respiratory: No respiratory distress. Painless inspiration. Skin: Skin warm and dry. Normal skin color. Extremities Extremities exhibit normal range of motion. Neuro: Sitting in wheelchair moving all extremities no focal deficits are noted. At baseline. Office Meds naloxone 4 mg/actuation nasal spray Performing Provider: Margarita Powell PA-C [facility] Administered by: Margarita Powell PA-C on 12/25/24 13:07 Dose Route Admin Location Dispensed Lot Number Expiration Date [facility] Engineering Supervisor 4 mg intranasal 1 ea Total Dispensed Waste 1 ea 0 % Comments: For chronic pain syndrome to take home due to patient on tramadol Results AMB Hemoglobin A1c AMB Hemoglobin A1c 5.5 % Last Edit by EZEQUIEL Shrestha on 12/25/24 11:36 Results Reviewed Results Reviewed: - Lab: HbA1c is 5.5%. Coding Level of Care Code Est Pt Level 4 (55847) Complex EM visit Add On G2211 Diagnoses Type 2 diabetes mellitus with hemoglobin A1c goal of less than 7.0% E11.9 Chronic pain G89.29 Recurrent UTI N39.0 Healthcare maintenance Z00.00 Additional Codes RAMONE-7 Assessment Billing - RAMONE-7 Assessment Tool: RAMONE-7 Assessment 26814 ([id number]) PHQ-9 - 73385 - PHQ-9 Billing: Yes ([id number]) Assessment & Plan Assessment & Plan (1) Type 2 diabetes mellitus with hemoglobin A1c goal of less than 7.0%: Code(s): E11.9 - Type 2 diabetes mellitus without complications Category: Medical Plan: The patient's HbA1c is well-controlled at 5.5%. Continue metformin 500 mg once daily to prevent hyperglycemia, especially with the upcoming holidays. A urine microalbumin/creatinine ratio test will be ordered to screen for diabetic nephropathy. (2) Chronic pain: Code(s): G89.29 - Other chronic pain Category: Medical Plan: The patient follows with a urologist, Dr. Reis, and has a kidney ultrasound pending. Repeat kidney function tests (blood work) will be ordered to monitor her status. (3) Recurrent UTI: Code(s): N39.0 - Urinary tract infection, site not specified Category: Medical Plan: The patient uses tramadol 50 mg as needed for severe pain. Due to the narcotic nature of tramadol, a pain management contract was reviewed and signed. A prescription for Narcan was provided with instructions on its use in case of an accidental overdose. A urine drug screen will be ordered to ensure compliance. A prescription for 7 tablets of tramadol 50 mg will be sent to the [facility] in [place], [place]. (4) Healthcare maintenance: Code(s): Z00.00 - Encounter for general adult medical examination without abnormal findings Category: Medical Plan: The patient is due for an annual physical exam. All outstanding lab orders will be canceled and new orders will be placed to avoid confusion. A follow-up appointment is scheduled in three months for a physical exam. Plan Plan Patient was informed and verbally consented to the use of an ambient scribe for clinic note documentation during this visit. 1. Type 2 Diabetes Mellitus The patient's HbA1c is well-controlled at 5.5%. Continue metformin 500 mg once daily to prevent hyperglycemia, especially with the upcoming holidays. A urine microalbumin/creatinine ratio test will be ordered to screen for diabetic nephropathy. 2. Chronic Kidney Disease, Unspecified The patient follows with a urologist, Dr. Reis, and has a kidney ultrasound pending. Repeat kidney function tests (blood work) will be ordered to monitor her status. 3. Chronic Pain The patient uses tramadol 50 mg as needed for severe pain. Due to the narcotic nature of tramadol, a pain management contract was reviewed and signed. A prescription for Narcan was provided with instructions on its use in case of an accidental overdose. A urine drug screen will be ordered to ensure compliance. A prescription for 7 tablets of tramadol 50 mg will be sent to the [facility] [employer] in [place], [place]. 4. Recurrent Urinary Tract Infections The patient reports no current UTI symptoms. She will continue her chronic prophylactic antibiotic, Bactrim, as prescribed by her urologist. 5. Health Maintenance The patient is due for an annual physical exam. All outstanding lab orders will be canceled and new orders will be placed to avoid confusion. A follow-up appointment is scheduled in three months for a physical exam. Discussion Notes I reviewed the patient's recent lab results, noting her HbA1c is excellent at 5.5%. We discussed continuing metformin 500 mg once daily to maintain glycemic control, as discontinuing it might risk hyperglycemia, especially with the holidays approaching. I explained the need for updated kidney function tests and a urine test to check for protein, and I have placed these orders. We had an extensive discussion regarding her as-needed use of tramadol, which is a narcotic. I explained the practice's policy, which requires a signed pain management agreement, periodic urine drug screens, and a prescription for Narcan. The patient signed the agreement, and I provided her with Narcan and instructions for its use in an emergency. I advised the patient on the importance of notifying us when her medications are running low to ensure timely refills. We will follow up in three months for a complete physical exam. Orders: Orders Comprehensive Met. Panel Today Z00.00 - Encounter for general adult medical examination without abnormal findings Microalbumin, Random (w Creat) Today E11.9 - Type 2 diabetes mellitus without complications AMB Naloxone Hydrochloride Administration Today G89.29 - Other chronic pain Complete Blood Count no Diff Today Z00.00 - Encounter for general adult medical examination without abnormal findings AMB Hemoglobin A1c Today E11.9 - Type 2 diabetes mellitus without complications UA CC w/rflx Micro + Cult Today Z00.00 - Encounter for general adult medical examination without abnormal findings Drug Screen Urine Today G89.29 - Other chronic pain, M54.50 - Low back pain, unspecified Patient Instructions: Patient Instructions - Continue taking metformin 500 mg once a day for your diabetes. - Please go to the lab for blood work to check your kidney function. - You will also need to provide a urine sample at the lab to check for protein. - Continue taking your daily antibiotic (Bactrim) to prevent urinary tract infections. - Take tramadol only if you have very bad pain. - You have been given a Narcan nasal spray. - Keep it in a safe place in case of an accidental overdose. - Please let the office know when you are starting to run low on your m edications so we can refill them on time. - We will see you back in our office in three months for a physical exam.
== END 2024-12-25 11:59 | disposition home or self-care (01) ==
LOC: HO.HMCSH 11:00
PROVIDERS: PCP Internal Medicine; Visit Provider Physician Assistant Medical
DX: E11.9 Type 2 diabetes mellitus without complications (principal); G89.29 Other chronic pain; N39.0 Urinary tract infection, site not specified; Z00.00 Encounter for general adult medical examination without abnormal findings

== ENCOUNTER → 2024-12-25 11:00 | Outpatient (BNVA) | payer MEDICARE, SELFPAY | PROVIDERS: PCP Internal Medicine; Visit Provider Physician Assistant Medical | DX: Z00.00 Encounter for general adult medical examination without abnormal findings (principal); E11.9 Type 2 diabetes mellitus without complications; N39.0 Urinary tract infection, site not specified; G89.29 Other chronic pain | CPT/HCPCS: 83036; 96127; 99212 ==

== ENCOUNTER 2025-01-09 11:31 | Outpatient (REF) | payer MEDICARE, SELFPAY ==
[2025-01-09 13:24] LABS: Hematocrit 38.0 % (37.0-47.0); Hemoglobin 12.0 g/dl (12.0-16.0); Mean Corpuscular HGB Conc 31.6 g/dl (31.0-35.0); Mean Corpuscular Hemoglobin 27.9 pg (27.0-33.0); Mean Corpuscular Volume 88.4 fL (80.0-98.0); NRBC Abs Auto 0.000 X10*3/uL (0.0-0.012); NRBC Pct Auto 0.0 /100WBC (0.0-0.2); Platelet Count 230 X10*3/uL (160-400); Red Blood Count 4.30 X10*6/uL (4.20-5.50); White Blood Count 9.0 X10*3/uL (4.8-10.8)
[2025-01-09 13:26] LABS: Cannabinoid Screen Urine Not Detected (Not Detect)
[2025-01-09 13:35] LABS: Appearance Urine Cloudy; Glucose Urine UA Negative (Negative); PH 6.5 (5.0-9.0); Specific Gravity - Urine 1.010 (1.005-1.025); UMIC TRIGGER UACC YES
[2025-01-09 14:00] LABS: UACC Culture Trigger YES
--- OUTSIDE RECORDS SUMMARY | 2025-01-09 14:00 | XMS_ITS | Clinical Summary ---
Author Organization [address] Address [address] [place] [phone] Phone Care Team Providers Care Health Informatics Specialist Name Role Phone Preston Wang Primary Care Provider [phone] Social History Tobacco Use Types Packs/Day Years [...] Pneumococcal Vaccine: 50+ Ye ars (1 of 2 - PCV) 1966 Zoster Vaccines (1 of 2) 1997 RSV Immunization Adult Patie nts (1 - 1-dose 75+ series) 2022 Depression Screening 02/08/2024 Falls Risk Assessment 08/06/2024 Hepatitis C Screening 08/06/2024 Medicare Annual Wellness Visit 08/06/2024 Osteoporosis Screening (Bone Density Screening) 08/06/2024 Social Influencers of Health Screening 08/06/2024 COVID-19 Vaccine (1 - 2024-2 6 season) 2024 Influenza Vaccine (#1) 2024 HIB Vaccines Aged Out No longer [...] on patient's age to complete this topic Insurance MEDICARE [facility] Advance Directives Documents on File Type Date Recorded Patient Sales Representative Expl anation Health Care Decision (hx) 10/13/2017 BYRON ALMEIDA DIRECTIVE Care Teams Health Informatics Specialist Relationship Specialty Start Date End Date Preston Wang DO [address] [place] [phone] PCP - General Internal Medicine 09/05/17
--- OUTSIDE RECORDS SUMMARY | 2025-01-09 14:00 | XMS_ITS | Clinical Summary ---
Author Organization [facility] Address [address] [place] [phone] Phone Care Team Providers Care Sausage Cooker Name Role Phone Pcp, Unknown Primary Care [...] file Insurance MEDICARE PART A & B [place] [employer] SUPPLEMENT MEDICARE PART A & B [employer] SUPPLEMENT MEDICARE PART A & B [employer] SUPPLEMENT MEDICARE PART A & B [facility] MEDEX SUPPLEMENT MEDICARE PART A & B [employer] SUPPLEMENT MEDICARE PART A & B [employer] SUPPLEMENT Care Teams Sausage Cooker Relationship Specialty Start Date End Date Pcp, Unknown PCP - General 04/27/24 Additional Source Comments The information contained in this document represents components of the legal health record. It is not the complete legal health record.[facility]
--- OUTSIDE RECORDS SUMMARY | 2025-01-09 14:00 | XMS_ITS | Encounter Summary ---
Author Organization [facility] Address [address] [place] [phone] Care Team Providers Care Wooden Fence Erector Name Role Phone Preston Wang DO Primary Care Provider [phone] Encounter Details Date Type Department Care Team (Late st Contact Info) Description 08/09/2024 Lab Requisition [facility] - Main Lab [address] [facility] [place] [address] Carolina Phillips MD [address] [address] Chronic kidney disease, unspecified; snf (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; Methemoglobinemia, unspecified; Extended spectrum beta lactamase (ESBL) resistance; Type 2 diabetes mellitus without complications ([facility] V24, CMS/[facility] V28) Social History Tobacco Use Types Packs/Day [...] 7:06 AM EDT Chronic kidney disease, unspecified 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 Methemoglobinemia, 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 Type 2 diabetes mellitus without complications (CMS/HCC V24, [facility] V28) HEMOGLOBIN A1C Routine 08/09/2024 7:06 AM EDT Chronic kidney disease, unspecified snf (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 Methemoglobinemia, 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 Type 2 diabetes mellitus without complications (CMS/HCC V24, CMS/HCC V28) COMPREHENSIVE METABOLIC PANEL Routine 08/09/2024 7:06 AM EDT Chronic kidney disease, unspecified snf (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 Methemoglobinemia, 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 128 mg/dL LAB CHEMISTRY METHOD 08/09/2024 8:43 PM EDT [facility] Blood Venous blood specimen / Unknown Venipuncture / Unknown 08/09/2024 7:06 AM EDT 08/09/2024 9:18 AM EDT us Carolina Phillips MD LAB BLOOD ORDERABLES Fin al Result [facility] [address] [place] [address], * (ABNORMAL) Comprehensive metabolic panel (08/09/2024 7:06 AM EDT) [facility] Sodium 139 133 - 145 mmol/L LAB CHEMISTRY METHOD 08/09/2024 11:08 AM EDT [facility] Potassium 3.9 3.5 - 5.5 mmol/L LAB CHEMISTRY METHOD 08/09/2024 11:08 AM EDT [facility] Chloride 104 96 - 110 mmol/L LAB CHEMISTRY METHOD 08/09/2024 11:08 AM EDT [facility] CO2 31 21 - 32 mmol/L LAB CHEMISTRY METHOD 08/09/2024 11:08 AM EDT [facility] Anion Gap 4 3 - 11 LAB CHEMISTRY METHOD 08/09/2024 11:08 AM [facility] Glucose 78 70 - 100 mg/dL LAB CHEMISTRY METHOD 08/09/2024 11:08 AM [facility] BUN 10 5 - 25 mg/dL LAB CHEMISTRY METHOD 08/09/2024 11:08 AM [facility] Creatinine 1.16(H) 0.50 - 1.10 mg/dL LAB CHEMISTRY METHOD 08/09/2024 11:08 AM [facility] eGFR 49(L) >=60 mL/min/1. 73m2 LAB CHEMISTRY METHOD 08/09/2024 11:08 AM [facility] Comment:Calculation based on the Chronic Kidney Disease Epidemiology Collaboration (CKD-EPI) equation refit without adjustment for race. BUN/Creatinine Ratio 8.6 LAB CHEMISTRY METHOD 08/09/2024 11:08 AM [facility] Calcium 8.1(L) 8.5 - 10.5 mg/dL LAB CHEMISTRY METHOD 08/09/2024 11:08 AM [facility] AST (SGOT) 36 10 - 42 unit/L LAB CHEMISTRY METHOD 08/09/2024 11:08 AM [facility] ALT (SGPT) 37 10 - 60 unit/L LAB CHEMISTRY METHOD 08/09/2024 11:08 AM [facility] Alkaline Phosphatase 74 42 - 121 unit/L LAB CHEMISTRY METHOD 08/09/2024 11:08 AM [facility] Total Protein 5.9(L) 6.0 - 8.0 g/dL LAB CHEMISTRY METHOD 08/09/2024 11:08 AM [facility] Albumin 2.2(L) 3.2 - 5.0 g/dL LAB CHEMISTRY METHOD 08/09/2024 11:08 AM [facility] Total Bilirubin 0.2 0.0 - 1.4 mg/dL LAB CHEMISTRY METHOD 08/09/2024 11:08 AM T [facility] Blood Venous blood specimen / Unknown Venipuncture / Unknown 08/09/2024 7:06 AM EDT 08/09/2024 9:18 AM EDT us Carolina Phillips MD LAB BLOOD ORDERABLES Fin al Result [facility] [address] [place] [address], * (ABNORMAL) Complete blood count (08/09/2024 7:06 AM EDT) WBC 7.7 4.8 - 10.8 K/mcL LAB HEMETOLOGY METHOD 08/09/2024 10:33 AM [facility] RBC 3.20(L) 3.80 - 4.80 M/mcL LAB HEMETOLOGY METHOD 08/09/2024 10:33 AM [facility] Hemoglobin 8.5(L) 11.5 - 16.0 g/dL LAB HEMETOLOGY METHOD 08/09/2024 10:33 AM [facility] Hematocrit 27.9(L) 35.0 - 47.0 % LAB HEMETOLOGY METHOD 08/09/2024 10:33 AM [facility] MCV 88.6 79.0 - 98.0 FL LAB HEMETOLOGY METHOD 08/09/2024 10:33 AM [facility] MCH 27.0 27.0 - 32.0 pcg LAB HEMETOLOGY METHOD 08/09/2024 10:33 AM [facility] MCHC 30.5(L) 32.0 - 37.0 g/dL LAB HEMETOLOGY METHOD 08/09/2024 10:33 AM [facility] RDW 17.2(H) 11.0 - 15.0 % LAB HEMETOLOGY METHOD 08/09/2024 10:33 AM EDT [facility] Platelets 275 130 - 400 K/mcL LAB HEMETOLOGY METHOD 08/09/2024 10:33 AM EDT [facility] MPV 9.6 7.0 - 11.0 FL LAB HEMETOLOGY METHOD 08/09/2024 10:33 AM EDT [facility] NRBC 0.0 <1.0 % LAB HEMETOLOGY METHOD 08/09/2024 10:33 AM EDT [facility] NRBC Absolute 0.00 <0.10 K/mcL LAB HEMETOLOGY METHOD 08/09/2024 10:33 AM EDT [facility] Blood Venous blood specimen / Unknown Venipuncture / Unknown 08/09/2024 7:06 AM EDT 08/09/2024 9:18 AM EDT us Carolina Phillips MD LAB BLOOD ORDERABLES Fin al Result [facility] [address] [place] [address], documented in this encounter Visit Diagnoses Diagnosis Chronic kidney disease, unspecified snf (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 Methemoglobinemia, 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
--- OUTSIDE RECORDS SUMMARY | 2025-01-09 14:00 | XMS_ITS | Encounter Summary ---
Author Organization [facility] Address [address] [place] [phone] Care Team Providers Care Loss Prevention Operations Manager Name Role Phone Preston Wang DO Primary Care Provider [phone] Encounter Details Date Type Department Care Team (Late st Contact Info) Description 08/17/2024 Lab Requisition [facility] - Main Lab [address] [facility] [place] [address] Carolina Phillips MD [address] [phone] Sepsis, unspecified organism (CMS/HCC V24, CMS/HCC V28); [...] mmol/L LAB CHEMISTRY METHOD 08/20/2024 3:[address] [facility] Potassium 3.7 3.5 - 5.5 mmol/L LAB CHEMISTRY METHOD 08/20/2024 3:[address] [facility] Chloride 106 96 - 110 mmol/L LAB CHEMISTRY METHOD 08/20/2024 3:[address] [facility] CO2 25 21 - 32 mmol/L LAB CHEMISTRY METHOD 08/20/2024 3:[address] [facility] Anion Gap 9 3 - 11 LAB CHEMISTRY METHOD 08/20/2024 3:[address] [facility] Glucose 171(H) 70 - 100 mg/dL LAB CHEMISTRY METHOD 08/20/2024 3:[address] [facility] BUN 22 5 - 25 mg/dL LAB CHEMISTRY METHOD 08/20/2024 3:[address] [facility] Creatinine 1.39(H) 0.50 - 1.10 mg/dL LAB CHEMISTRY METHOD 08/20/2024 3:[address] [facility] eGFR 39(L) >=60 mL/min/1. 73m2 LAB CHEMISTRY METHOD 08/20/2024 3:[address] [facility] Comment:Calculation based on the Chronic Kidney Disease Epidemiology Collaboration (CKD-EPI) equation refit without adjustment for race. BUN/Creatinine Ratio 15.8 LAB CHEMISTRY METHOD 08/20/2024 3:[address] [facility] Calcium 8.8 8.5 - 10.5 mg/dL LAB CHEMISTRY METHOD 08/20/2024 3:[address] [facility] AST (SGOT) 52(H) 10 - 42 unit/L LAB CHEMISTRY METHOD 08/20/2024 3:[address] [facility] ALT (SGPT) 60 10 - 60 unit/L LAB CHEMISTRY METHOD 08/20/2024 3:08 PM EDT [facility] Alkaline Phosphatase 83 42 - 121 unit/L LAB CHEMISTRY METHOD 08/20/2024 3:08 PM T [facility] Total Protein 7.0 6.0 - 8.0 g/dL LAB CHEMISTRY METHOD 08/20/2024 3:[address] [facility] Albumin 2.8(L) 3.2 - 5.0 g/dL LAB CHEMISTRY METHOD 08/20/2024 3:[address] [facility] Total Bilirubin 0.4 0.0 - 1.4 mg/dL LAB CHEMISTRY METHOD 08/20/2024 3:[address] [facility] Blood Venous blood specimen / Unknown Venipuncture / Unknown 08/20/2024 5:33 AM EDT 08/20/2024 10:27 AM EDT us Carolina Phillips MD LAB BLOOD ORDERABLES Fin al Result [facility] [address] [place] [address], * (ABNORMAL) Complete blood count (08/20/2024 5:33 AM EDT) WBC 6.0 4.8 - 10.8 K/mcL LAB HEMETOLOGY METHOD 08/20/2024 11:45 AM EDT [facility] RBC 3.40(L) 3.80 - 4.80 M/mcL LAB HEMETOLOGY METHOD 08/20/2024 11:45 AM EDT [facility] Hemoglobin 9.1(L) 11.5 - 16.0 g/dL LAB HEMETOLOGY METHOD 08/20/2024 11:[address] [facility] Hematocrit 30.8(L) 35.0 - 47.0 % LAB HEMETOLOGY METHOD 08/20/2024 11:45 AM EDT [facility] MCV 91.1 79.0 - 98.0 FL LAB HEMETOLOGY METHOD 08/20/2024 11:45 AM EDT [facility] MCH 26.9(L) 27.0 - 32.0 pcg LAB HEMETOLOGY METHOD 08/20/2024 11:45 AM EDT [facility] MCHC 29.5(L) 32.0 - 37.0 g/dL LAB HEMETOLOGY METHOD 08/20/2024 11:45 AM EDT [facility] RDW 16.8(H) 11.0 - 15.0 % LAB HEMETOLOGY METHOD 08/20/2024 11:45 AM EDT [facility] Platelets 200 130 - 400 K/mcL LAB HEMETOLOGY METHOD 08/20/2024 11:45 AM EDT [facility] MPV 10.1 7.0 - 11.0 FL LAB HEMETOLOGY METHOD 08/20/2024 11:45 AM EDT [facility] NRBC 0.0 <1.0 % LAB HEMETOLOGY METHOD 08/20/2024 11:45 AM EDT [facility] NRBC Absolute 0.00 <0.10 K/mcL LAB HEMETOLOGY METHOD 08/20/2024 11:45 AM T [facility] Blood Venous blood specimen / Unknown Venipuncture / Unknown 08/20/2024 5:33 AM EDT 08/20/2024 10:22 AM EDT us Carolina Phillips MD LAB BLOOD ORDERABLES Fin al Result [facility] [address] [place] [address], documented in this encounter Visit Diagnoses Diagnosis Sepsis, unspecified organism (CMS/HCC V24, CMS/[facility] V28) Essential (primary) hypertension Unspecified essential hypertension Urinary tract infection, site not specified documented in this encounter Care Teams Loss Prevention Operations Manager Relationship Specialty Start Date End Date Preston Wang DO [address] [phone] PCP - General Internal Medicine 09/05/17 documented as of this encounter
--- OUTSIDE RECORDS SUMMARY | 2025-01-09 14:00 | XMS_ITS | Encounter Summary ---
Author Organization [facility] Address [address] [place] [phone] Care Team Providers Care Senior Electronics Design Engineer Name Role Phone Preston Wang DO Primary Care Provider [phone] Encounter Details Date Type Department Care Team (Late st Contact Info) Description 08/10/2024 Lab Requisition [facility] - Main Lab 299 [facility] [place] [address] Carolina Phillips MD [address] [address] Sepsis, unspecified organism (CMS/HCC V24, [...] 2 diabetes mellitus without complications (CMS/HCC V24, [facility] V28) documented in this encounter Results * (ABNORMAL) Comprehensive metabolic panel (08/13/2024 6:34 AM EDT) Sodium 136 133 - 145 mmol/L LAB CHEMISTRY METHOD 08/13/2024 1:13 PM [facility] Potassium 4.4 3.5 - 5.5 mmol/L LAB CHEMISTRY METHOD 08/13/2024 1:13 PM [facility] Chloride 100 96 - 110 mmol/L LAB CHEMISTRY METHOD 08/13/2024 1:13 PM [facility] CO2 31 21 - 32 mmol/L LAB CHEMISTRY METHOD 08/13/2024 1:13 PM [facility] Anion Gap 5 3 - 11 LAB CHEMISTRY METHOD 08/13/2024 1:13 PM [facility] Glucose 71 70 - 100 mg/dL LAB CHEMISTRY METHOD 08/13/2024 1:13 PM [facility] BUN 18 5 - 25 mg/dL LAB CHEMISTRY METHOD 08/13/2024 1:13 PM [facility] Creatinine 1.44(H) 0.50 - 1.10 mg/dL LAB CHEMISTRY METHOD 08/13/2024 1:13 PM [facility] eGFR 38(L) >=60 mL/min/1. 73m2 LAB CHEMISTRY METHOD 08/13/2024 1:13 PM [facility] Comment:Calculation based on the Chronic Kidney Disease Epidemiology Collaboration (CKD-EPI) equation refit without adjustment for race. BUN/Creatinine Ratio 12.5 LAB CHEMISTRY METHOD 08/13/2024 1:13 PM [facility] Calcium 8.8 8.5 - 10.5 mg/dL LAB CHEMISTRY METHOD 08/13/2024 1:13 PM [facility] AST (SGOT) 41 10 - 42 unit/L LAB CHEMISTRY METHOD 08/13/2024 1:13 PM EDT [facility] ALT (SGPT) 36 10 - 60 unit/L LAB CHEMISTRY METHOD 08/13/2024 1:13 PM EDT [facility] Alkaline Phosphatase 70 42 - 121 unit/L LAB CHEMISTRY METHOD 08/13/2024 1:13 PM EDT [facility] Total Protein 7.1 6.0 - 8.0 g/dL LAB CHEMISTRY METHOD 08/13/2024 1:13 PM EDT [facility] Albumin 2.6(L) 3.2 - 5.0 g/dL LAB CHEMISTRY METHOD 08/13/2024 1:13 PM EDT [facility] Total Bilirubin 0.6 0.0 - 1.4 mg/dL LAB CHEMISTRY METHOD 08/13/2024 1:13 PM EDT [facility] Blood Venous blood specimen / Unknown Venipuncture / Unknown 08/13/2024 6:34 AM EDT 08/13/2024 11:49 AM EDT us Carolina Phillips MD LAB BLOOD ORDERABLES Fin al Result [facility] [address] [place] [address], * (ABNORMAL) Complete blood count (08/13/2024 6:34 AM EDT) WBC 8.9 4.8 - 10.8 K/mcL LAB HEMETOLOGY METHOD 08/13/2024 1:07 PM EDT [facility] RBC 3.40(L) 3.80 - 4.80 M/mcL LAB HEMETOLOGY METHOD 08/13/2024 1:07 PM EDT [facility] Hemoglobin 8.9(L) 11.5 - 16.0 g/dL LAB HEMETOLOGY METHOD 08/13/2024 1:07 PM [facility] Hematocrit 30.2(L) 35.0 - 47.0 % LAB HEMETOLOGY METHOD 08/13/2024 1:07 PM EDT [facility] MCV 88.8 79.0 - 98.0 FL LAB [facility]EMETOLOGY METHOD [facility] MCH 26.2(L) 27.0 - 32.0 pcg LAB HEMETOLOGY METHOD 08/13/2024 1:07 PM EDT [facility] MCHC 29.5(L) 32.0 - 37.0 g/dL LAB HEMETOLOGY METHOD 08/13/2024 1:07 PM [facility] RDW 17.2(H) 11.0 - 15.0 % LAB HEMETOLOGY METHOD 08/13/2024 [facility] Platelets 276 130 - 400 K/mcL LAB HEMETOLOGY METHOD 08/13[facility]2024 [facility] MPV 9.2 7.0 - 11.0 FL LAB HEMETOLOGY METHOD 08/13/2024 1[facility] NRBC 0.0 <1.0 % LAB HEMETOLOGY METHOD 08/13/2024 1[facility] NRBC Absolute 0.00 <0.10 K/mcL LAB HEMETOLOGY METHOD 08/13/2024 1:07 PM [facility] Blood Venous blood specimen / Unknown Venipuncture / Unknown 08/13/2024 6:34 AM EDT 08/13/2024 11:49 AM EDT us Carolina Phillips MD LAB BLOOD ORDERABLES Fin al Result [facility] [address] [place] [address], documented in this encounter Visit Diagnoses Diagnosis Sepsis, unspecified organism ([facility] V24, [facility] V28) Essential (primary) hypertension Unspecified essential hypertension Urinary tract infection, site not specified Type 2 diabetes mellitus without complications ([facility] V24, [facility] V28) documented in this encounter Care Teams Senior Electronics Design Engineer Relationship Specialty Start Date End Date Preston Wang DO [address] [place] [phone] PCP - General Internal Medicine 09/05/17 documented as of this encounter
--- OUTSIDE RECORDS SUMMARY | 2025-01-09 14:00 | XMS_ITS | Encounter Summary ---
Author Organization [facility] Address [address] [place] [phone] Care Team Providers Care Public Relations Sales Marketing Name Role Phone Preston Wang DO Primary Care Provider [phone] Encounter Details Date Type Department Care Team (Late st Contact Info) Description 08/26/2024 Lab Requisition [facility] - Main Lab 299 [facility] [place] [address] Carolina Phillips MD [address] [phone] Sepsis, unspecified organism (CMS/HCC V24, CMS/HCC V28); [...] mmol/L LAB CHEMISTRY METHOD 08/27/2024 1:22 PM [facility] Potassium 3.8 3.5 - 5.5 mmol/L LAB CHEMISTRY METHOD 08/27/2024 1:22 PM [facility] Chloride 104 96 - 110 mmol/L LAB CHEMISTRY METHOD 08/27/2024 1:22 PM [facility] CO2 27 21 - 32 mmol/L LAB CHEMISTRY METHOD 08/27/2024 1:22 PM [facility] Anion Gap 8 3 - 11 LAB CHEMISTRY METHOD 08/27/2024 1:22 PM [facility] Glucose 118(H) 70 - 100 mg/dL LAB CHEMISTRY METHOD 08/27/2024 1:22 PM [facility] BUN 22 5 - 25 mg/dL LAB CHEMISTRY METHOD 08/27/2024 1:22 PM [facility] Creatinine 1.52(H) 0.50 - 1.10 mg/dL LAB CHEMISTRY METHOD 08/27/2024 1:22 PM [facility] eGFR 35(L) >=60 mL/min/1. 73m2 LAB CHEMISTRY METHOD 08/27/2024 1:22 PM [facility] Comment:Calculation based on the Chronic Kidney Disease Epidemiology Collaboration (CKD-EPI) equation refit without adjustment for race. BUN/Creatinine Ratio 14.5 LAB CHEMISTRY METHOD 08/27/2024 1:22 PM [facility] Calcium 8.6 8.5 - 10.5 mg/dL LAB CHEMISTRY METHOD 08/27/2024 1:22 PM [facility] AST (SGOT) 32 10 - 42 unit/L LAB CHEMISTRY METHOD 08/27/2024 1:22 PM [facility] ALT (SGPT) 50 10 - 60 unit/L LAB CHEMISTRY METHOD 08/27/2024 1:22 PM EDT [facility] Alkaline Phosphatase 83 42 - 121 unit/L LAB CHEMISTRY METHOD 08/27/2024 1:22 PM [facility] Total Protein 6.9 6.0 - 8.0 g/dL LAB CHEMISTRY METHOD 08/27/2024 1:22 PM [facility] Albumin 2.8(L) 3.2 - 5.0 g/dL LAB CHEMISTRY METHOD 08/27/2024 1:22 PM [facility] Total Bilirubin 0.4 0.0 - 1.4 mg/dL LAB CHEMISTRY METHOD 08/27/2024 1:22 PM [facility] Blood Venous blood specimen / Unknown Venipuncture / Unknown 08/27/2024 5:33 AM EDT 08/27/2024 11:39 AM EDT Carolina Phillips MD LAB BLOOD ORDERABLES Fin al Result [facility] [address] [place] [address], [place] [phone] * (ABNORMAL) Complete blood count (08/27/2024 5:33 AM EDT) WBC 7.1 4.8 - 10.8 K/mcL LAB HEMETOLOGY METHOD 08/27/2024 12:29 PM [facility] RBC 3.30(L) 3.80 - 4.80 M/mcL LAB HEMETOLOGY METHOD 08/27/2024 12:29 PM [facility] Hemoglobin 9.0(L) 11.5 - 16.0 g/dL LAB HEMETOLOGY METHOD 08/27/2024 12:29 PM [facility] Hematocrit 30.5(L) 35.0 - 47.0 % LAB HEMETOLOGY METHOD 08/27/2024 12:29 PM T [facility] MCV 91.6 79.0 - 98.0 FL LAB HEMETOLOGY METHOD 08/27/2024 12:29 PM EDT [facility] MCH 27.0 27.0 - 32.0 pcg LAB HEMETOLOGY METHOD 08/27/2024 12:29 PM EDT [facility] MCHC 29.5(L) 32.0 - 37.0 g/dL LAB HEMETOLOGY METHOD 08/27/2024 12:29 PM EDT [facility] RDW 16.8(H) 11.0 - 15.0 % LAB HEMETOLOGY METHOD 08/27/2024 12:29 PM EDT [facility] Platelets 174 130 - 400 K/mcL LAB HEMETOLOGY METHOD 08/27/2024 12:29 PM EDT [facility] MPV 10.3 7.0 - 11.0 FL LAB HEMETOLOGY METHOD 08/27/2024 12:29 PM EDT [facility] NRBC 0.0 <1.0 % LAB HEMETOLOGY METHOD 08/27/2024 12:29 PM EDT [facility] NRBC Absolute 0.00 <0.10 K/mcL LAB HEMETOLOGY METHOD 08/27/2024 12:29 PM EDT [facility] Blood Venous blood specimen / Unknown Venipuncture / Unknown 08/27/2024 5:33 AM EDT 08/27/2024 11:39 AM EDT us Carolina Phillips MD LAB BLOOD ORDERABLES Fin al Result [facility] [address] [place] [address], documented in this encounter Visit Diagnoses Diagnosis Sepsis, unspecified organism (CMS/HCC V24, CMS/HCC V28) Essential (primary) hypertension Unspecified essential hypertension Urinary tract infection, site not specified documented in this encounter Care Teams Public Relations Sales Marketing Relationship Specialty Start Date End Date Prestno Wang DO [address] [place] [phone] PCP - General Internal Medicine 09/05/17 documented as of this encounter
--- OUTSIDE RECORDS SUMMARY | 2025-01-09 14:00 | XMS_ITS | Encounter Summary ---
Author Organization [facility] Address [address] [place] [phone] Care Team Providers Care Jet Ski Mechanic Name Role Phone Preston Wang DO Primary Care Provider [phone] Encounter Details Date Type Department Care Team (Late st Contact Info) Description 09/01/2024 Lab Requisition [facility] - Main Lab [address] [facility] [place] [address] Carolina Phillips MD [address] [phone] Sepsis, unspecified organism (CMS/[facility] V24, CMS/[facility] V28); Essential (primary) hypertension; [...] Diagnoses Diagnosis Sepsis, unspecified organism (CMS/HCC V24, CMS/[facility] V28) Essential (primary) hypertension Unspecified essential hypertension Urinary tract infection, site not specified documented in this encounter Care Teams Jet Ski Mechanic Relationship Specialty Start Date End Date Preston Wang DO [address] [place] [phone] PCP - General Internal Medicine 09/05/17 documented as of this encounter
--- OUTSIDE RECORDS SUMMARY | 2025-01-09 14:00 | XMS_ITS ---
Author Organization [facility] Care Team Providers Care Public Improvement Inspector Name Role Phone Louis Koch Unavailable Unavailable Cara, Tracey Unavailable Unavailable Carole Nesbittnifer Unavailable Unavailable Allergies and adverse reactions Code CodeSystem Substance Reaction Severity StartDate Concern Status 2400 RXNORM Chlorpheniramine Unknown 12/16/2021 acti ve 2551 RXNORM Ciprofloxacin Unknown 12/16/2021 active 80730 RXNORM Clarithromycin Unknown 12/16/2021 active 2670 RXNORM Codeine Unknown 12/16/2021 active 63643 RXNORM DULoxetine Unknown 12/16/2021 active 4053 RXNORM Erythromycin Unknown 12/16/2021 active 932139 RXNORM Escitalopram Unknown 12/16/2021 active 4493 RXNORM FLUoxetine Unknown 12/16/2021 active 5032 RXNORM guaiFENesin Unknown 12/16/2021 active 5489 RXNORM HYDROcodone Unknown 12/16/2021 active 5640 RXNORM Ibuprofen Unknown 12/16/2021 active 29894 RXNORM levoFLOXacin Unknown 12/16/[address] Penicillins Unknown 12/16/2021 activ e 821964 RXNORM Pregabalin Unknown 12/16/[address] Sulfa Antibiotics Unknown 12/16/2021 active 91375 RXNORM Tetracycline Unknown 12/16/2021 active Care Team Name Role Address Phone Organization Dates Louis Koch PCP [address] [facility] [address], [place], [address], [place] (Office): : [facility] 10/11/2023 - 11/04/2023 Tracey Cara [address] [place], [address], [facility] (Office): : [facility] 10/11/2023 - 11/04/2023 Zhanna Laz [address] [facility] [address], [place], [address], [place] (Office): : [facility] 10/11/2023 - 11/04/2023 Immunizations Immunization Status Vaccine Details Vaccine Code CodeSystem Jonah e Notes Influenza cancelled Influenza, split virus, trivalent, injectable, contains preservative 141 CVX created date: 12/24/2021 consent date: 12/24/2021 SARS-COV-2 (COVID-19) completed SARS-COV-2 (COVID-19) vaccine, mRNA, spike protein, LNP, preservative free, 50 mcg/0.5 mL dose Mfg: MODERNA Step 2 of Multi-step with next step required 221 CVX created date: 12/22/2021 administered date: 08/12/2020 SARS-COV-2 (COVID-19) completed SARS-COV-2 (COVID-19) vaccine, mRNA, spike protein, LNP, preservative free, 50 mcg/0.5 mL dose Mfg: MODERNA Step 1 of Multi-step with next step required 221 CVX created date: 12/22/2021 administered date: 07/15/2020 Mental Status Section Date Assessment Total Score Description 11/04/2023 BIMS 12 moderate cognit lady impairment CAM 0 No delirium ind icated PHQ-9 00 10/14/2023 BIMS 12 moderate cognit lady impairment CAM 0 No delirium ind icated PHQ-9 00 Insurance Providers Coverage Status Coverage Type Relationship to Subscriber Member Identifier Subscriber Identifier Group Identifier Payer Identifier and Other information 2021 Code: 1 Code System OID:[id number] [id number]. 3.221.5 Code System Name: Source of Payment Typology (PHDFL) Display: Medicare Translation : Code: [place] Code System: OID:[id number] [id number]. [id number] Code System Name: Insurance Type Code ([id number]) Display Name: Medicare Part A Code: SELF Code System Name: HL7 RoleCode Code System OID:[id number] .[id number] Display Name: Self [id number] Root: [id number] Address: Problems Problem # Description Date of onset Resolved Date Code CodeSystem Concern Status 1 ACUTE KIDNEY FAILURE, UNSPECIFIED 10/11/[address] active 2 DISPLACED FRACTURE OF FIRST METATARSAL BONE, LEFT FOOT, SUBSEQUENT ENCOUNTER FOR FRACTURE WITH ROUTINE HEALING 10/11/[address] active 3 ENCOUNTER FOR ATTENTION TO COLOSTOMY 10/11/[address] active 4 ENCOUNTER FOR SURGICAL AFTERCARE FOLLOWING SURGERY ON THE DIGESTIVE SYSTEM 10/11/[address] active 5 ESSENTIAL (PRIMARY) HYPERTENSION 10/11/[address] active 6 HYPERLIPIDEMIA, UNSPECIFIED 10/11/[address] active 7 MUSCLE WASTING AND ATROPHY, NOT ELSEWHERE CLASSIFIED, MULTIPLE SITES 10/11/[address] active 8 OTHER PARTIAL INTESTINAL OBSTRUCTION 10/11/[address] active 9 SEPSIS, UNSPECIFIED ORGANISM 10/11/[address] active 10 UNSPECIFIED MOOD [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 10/11/[address] active 11 UNSPECIFIED PROTEIN-CALORIE MALNUTRITION 10/11/[address] active 12 ANEMIA, UNSPECIFIED 12/16/[address] active 13 ANXIETY DISORDER, UNSPECIFIED 12/16/[address] active 14 CHRONIC OBSTRUCTIVE PULMONARY DISEASE, UNSPECIFIED 12/16/[address] active 15 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 12/16/2021 10/11/[address] completed 16 FATTY (CHANGE OF) LIVER, NOT ELSEWHERE CLASSIFIED 12/16/[address] active 17 FIBROMYALGIA 12/16/20212029831782426 SNOMED CT acti ve 18 GASTRO-ESOPHAGEAL REFLUX DISEASE WITHOUT ESOPHAGITIS 12/16/[address] active 19 HYPOTHYROIDISM, UNSPECIFIED 12/16/[address] active 20 LOW BACK PAIN, UNSPECIFIED 12/16/[address] active 21 OTHER LACK OF COORDINATION 12/16/2021 10/11/[address] completed 22 OTHER SPECIFIED SEPSIS 12/16/2021 10/11/[address] completed 23 PROTEUS (MIRABILIS) (MORGANII) THE CAUSE OF DISEASES CLASSIFIED ELSEWHERE 12/16/2021 10/11/[address] completed 24 PSOAS MUSCLE ABSCESS 12/16/2021 10/11/[address] completed 25 TYPE 2 DIABETES MELLITUS WITHOUT COMPLICATIONS 12/16/[address] active 26 UNSPECIFIED CIRRHOSIS OF LIVER 12/16/[address] active 27 UNSPECIFIED PROTEIN-CALORIE MALNUTRITION 12/16/2021 10/11/[address] completed 28 URINARY CALCULUS, UNSPECIFIED 12/16/2021 10/11/[address] completed Reason for Referral No Reasons for Referral Entered Social History Social History Observation Description Start Date End Date Code Code System Current Smoking Status Tobacco smoking consumption unknown 376984495 SNOMED CT Sex Assigned At Female 1945 61251-3 [facility] Gender Identity Sexual Orientation Vital Signs Code Code System Vitals Name Values and Units Timing Information 50197-1 LOINC Pain Level Value=2.0 11/04/2023 57925-8 LOINC Weight Diwum=395.4 Units=Lbs 9279-1 LOINC Respiratory Rate Value=16.0 Units=/m in 11/03/2023 8462-4 LOINC Blood Pressure-Diastolic Value=70 Un its=mmHg 11/03/2023 8480-6 LOINC Blood Pressure-Systolic Anzzm=439 Un its=mmHg 11/03/2023 8310-5 [facility] Body Temperature Value=98.0 Units= F 11/03/2023 8867-4 [facility] Heart rate Value=82.0 Units=/min 53547-3 [facility] O2 % BldC Oximetry Value=97.0 Units= % 11/03/2023 8302-2 [facility] Height Value=64.0 Units=Inches 10/12/2023
[2025-01-09 14:04] LABS: Alanine Aminotransferase 35 U/L (0-31); Albumin Level 4.1 g/dL (3.5-5.0); Alkaline Phosphatase 69 U/L (39-117); Anion Gap 13 (12-20); Aspartate Amino Transferase 41 U/L (5-31); Blood Urea Nitrogen 25 mg/dL (9-16); Calcium 9.6 mg/dL (8.4-10.2); Carbon Dioxide 22 mmol/L (22-29); Chloride 108 mmol/L (96-108); Estimated Glomerular Filt Rate 36; Potassium 3.8 mmol/L (3.3-5.1); Sodium 139 mmol/L (135-145); Total Protein 7.9 g/dL (6.5-8.0)
[2025-01-09 14:43] LABS: Microalbum/Creatinine Ratio Ur 184.6 ug/mg cr (<30)
== END 2025-01-09 11:32 | disposition home or self-care (01) ==
LOC: HO.HMGCLDS 11:31
PROVIDERS: PCP Physician Assistant Medical; Visit Provider Physician Assistant Medical
DX: Z00.00 Encounter for general adult medical examination without abnormal findings (principal); E11.9 Type 2 diabetes mellitus without complications; M54.50 Low back pain, unspecified; G89.29 Other chronic pain
CPT/HCPCS: 80053; 80307; 81001; 82043; 82570; 85027; 87086; 87088; 87186